=== PATIENT | female | born 1945 | race Caucasian/White ===

== ENCOUNTER 2022-11-23 01:21 | Outpatient (REF) | payer MEDICARE, MEDICAID, SELFPAY ==
[2022-11-23 08:53] LABS: Thyroid Stimulating Hormone 4.602 uIU/mL (0.358-3.740)
== END 2022-11-23 01:22 | disposition home or self-care (01) ==
LOC: LAB 01:21
PROVIDERS: PCP Family Medicine; Visit Provider Family Medicine
DX: E03.9 Hypothyroidism, unspecified (principal)
CPT/HCPCS: 36415; 84443

== ENCOUNTER 2023-01-09 09:47 | Outpatient (REF) | payer MEDICARE, MEDICAID, SELFPAY ==
[2023-01-09 11:30] LABS: Basophils Percent Auto 0.2 % (0.2-2.0); Hematocrit 38.5 % (36.0-48.0); Hemoglobin 11.4 g/dL (12.0-16.0); Immature Granulocytes Abs Auto 0.03 10^3/uL (0.00-0.03); Immature Granulocytes Pct Auto 0.6 % (0.0-0.5); Lymphocytes Absolute Auto 2.1 10^3/uL (1.2-3.8); Lymphocytes Percent Auto 43.8 % (20.5-60.0); Mean Corpuscular HGB Conc 29.6 g/dL (29.9-35.2); Mean Corpuscular Hemoglobin 29.1 pg (26.7-34.0); Mean Corpuscular Volume 98.2 fL (81.0-99.0); Monocytes Absolute Auto 0.4 10^3/uL (0.3-0.8); Monocytes Percent Auto 8.3 % (1.7-12.0); Neutrophils Absolute Auto 2.3 10^3/uL (1.4-6.5); Neutrophils Percent Auto 47.1 % (43.0-75.0); Platelet Count 152 10^3/uL (150-450); Red Blood Count 3.92 10^6/uL (4.20-5.40); Red Cell Distribution Width 14.4 % (11.0-15.0); White Blood Count 4.8 10^3/uL (4.0-11.0)
[2023-01-09 11:46] LABS: Anion Gap 10.4; BUN Creatinine Ratio 28.8; Calcium 8.3 mg/dL (8.5-10.1); Carbon Dioxide 31.9 mmol/L (21.0-32.0); Chloride 108 mmol/L (98-107); Estimated GFR (African America 58 (>=60); Estimated GFR (Non-African Ame 48 (>=60); Glucose 87 mg/dL (74-106); Potassium 4.3 mmol/L (3.5-5.1); Sodium 146 mmol/L (136-145)
[2023-01-10 16:09] LABS: Thyroglobulin Antibody <1.0 IU/mL (0.0-0.9); Thyroid Peroxidase (TPO) Ab <9 IU/mL (0-34)
== END 2023-01-09 09:48 | disposition home or self-care (01) ==
LOC: LAB 09:47
PROVIDERS: PCP Family Medicine; Visit Provider Family Medicine
DX: E03.9 Hypothyroidism, unspecified (principal)
CPT/HCPCS: 36415; 80048; 85025

== ENCOUNTER 2023-04-24 05:33 | Outpatient (REF) | payer MEDICARE, MEDICAID, SELFPAY ==
[2023-04-24 10:35] LABS: Thyroid Stimulating Hormone 3.949 uIU/mL (0.358-3.740)
== END 2023-04-24 05:34 | disposition home or self-care (01) ==
LOC: LAB 05:33
PROVIDERS: PCP Family Medicine; Visit Provider Family Medicine
DX: E03.9 Hypothyroidism, unspecified (principal)
CPT/HCPCS: 36415; 84443

== ENCOUNTER 2023-05-29 05:46 | Outpatient (REF) | payer MEDICARE, MEDICAID, SELFPAY ==
--- OUTSIDE RECORDS SUMMARY | 2023-05-29 05:50 | XMS_ITS | CCD ---
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 Machine Name Role Phone NEPTALI VILLALTA Unavailable Unavailabl e VILLALTANEPTALI CORDOVA Unavailable Unavailabl e BETH, DR ROCK Consulting Unavailable BETH, DR ROCK Admitting Unavailable MISC, DR HANSON Primary Care Unavailable BETH, DR ROCK Attending Unavailable BETH, DR ROCK Attending Unavailable BETH, DR ROCK Consulting Unavailable MISC, DR HANSON Primary Care Unavailable BETH, DR ROCK Admitting Unavailable MISC, DR HANSON Primary Care Unavailable DAVIS, ADIA Attending Unavailable DAVIS, ADIA Consulting Unavailable DAVIS, ADIA Admitting Unavailable BETH, DR ROCK Attending Unavailable BETH, DR ROCK Consulting Unavailable MISC, DR HANSON Primary Care Unavailable BETH, DR ROCK Admitting Unavailable BETH, DR ROCK Consulting Unavailable BETH, DR ROCK Admitting Unavailable MISC, DR HANSON Primary Care Unavailable BETH, DR ROCK Attending Unavailable Problems Active Problems Problem Classification Problem Date Documented Da te Episodic/Chronic Acute and unspecified renal failure (4 sources) Unspecified kidney failure; Translations: [UNSPECIFIED KIDNEY FAILURE] Onset: 08-22-2022 Chronic Congestive heart failure; nonhypertensive (5 sources) Heart failure, unspecified; Translations: [Acute systolic (congestive) heart failure] Onset: 02-09-2022 Chronic Deficiency and other anemia (1 source) Iron deficiency anemia, unspecified; Translations: [IRON DEFICIENCY ANEMIA UNSPECIFIED] Onset: 07-13-2022 Episodic Essential hypertension (4 sources) Essential (primary) hypertension; Translations: [ESSENTIAL PRIMARY HYPERTENSION] Onset: 07-11-2022 Chronic Hypertension with complications and secondary hypertension (1 source) Hypertensive heart disease with heart failure; Translations: [HTN HEART DISEASE W/HEART FAIL] Onset: 02-09-2022 Chronic Other nutritional; endocrine; and metabolic disorders (1 source) Morbid (severe) obesity due to excess calories; Translations: [MORBID SEVERE OBES D/T EXCESS ELISEO] Onset: 08-28-2022 Chronic Other nutritional; endocrine; and metabolic disorders (1 source) Abnormal weight loss; Translations: [ABNORMAL WEIGHT LOSS] Onset: 08-28-2022 Episodic Peripheral and visceral atherosclerosis (1 source) Peripheral vascular disease, unspecified; Translations: [PERIPHERAL VASCULAR DISEASE UNS] Onset: 08-28-2022 Chronic Residual codes; unclassified (4 sources) Altered mental status, unspecified; Translations: [ALTERED MENTAL STATUS UNSPECIFIED] Onset: 08-12-2022 Episodic Thyroid disorders (1 source) Hypothyroidism, unspecified; Translations: [HYPOTHYROIDISM UNSPECIFIED] Onset: 08-28-2022 Chronic Unclassified (1 source) hypokalemia / hypokalemia() Onset: 01-30-2017 Past or Other Problems Problem Classification Problem Date Documented Da te Episodic/Chronic Fluid and electrolyte disorders (3 sources) Hypokalemia; Translations: [Hypokalemia] Onset: 01-30-2017 Episodic Genitourinary symptoms and ill-defined conditions (4 sources) Dysuria; Translations: [DYSURIA] Onset: 02-07-2022 Episodic Nausea and vomiting (1 source) Nausea; Translations: [NAUSEA] Onset: 02-09-2022 Episodic Other nutritional; endocrine; and metabolic disorders (1 source) Anorexia; Translations: [ANOREXIA] Onset: 02-09-2022 Episodic Results Test Name Value Interpretation Reference Range Facil ity VIT D 25-OH LABCORPon 2022 Vitamin D, 25-Hydroxy 35.9 ng/mL Normal 30.0-100.[address] [facility] Comment on above: Result Comment: Jadyn min D deficiency has been defined by the [place] of [employer] and an Endocrine Society practice guideline as a level of serum 25-OH vitamin D less than 20 ng/mL (1,2). The Endocrine Society went on to further define vitamin D insufficiency as a level between 21 and 29 ng/mL (2). 1. IOM ([place] of [employer]). 2010. Dietary reference intakes for calcium and D. [place]: The National Academies Press. 2. Yamilex MF, Florecita CAMP, MalaBronson OTTO et al. Evaluation, treatment, and prevention of vitamin D deficiency: an Endocrine Society clinical practice guideline. JCEM. 2010; 96(7):1911-30. Performed By: #### V ITADLC #### [facility] [address] [place] [address] Dr. Ashwin Key CBC AUTO DIFFon 08-22-2022 BASO # 0.0 103/ul Normal 0.0-0.1 [facility] Comment on above: Performed By: #### C BC #### [facility] [address] [place] [address] Dr. Ashwin Key Basophils/100 WBC (Bld) 0.5 % Normal 0.2-2.0 [facility] Comment on above: Performed By: #### C BC #### [facility] [address] [place] [address] Dr. Ashwin Key EO # 0.0 103/ul Normal 0.0-0.7 [facility] Comment on above: Performed By: #### C BC #### [facility] [address] [place] [address] Dr. Ashwin Key Eosinophils/100 WBC (Bld) 0.0 % Critically low 0.9-7.0 [facility] Comment on above: Performed By: #### C BC #### [facility] [address] [place] [address] Dr. Ashwin Key Erythrocyte distribution width (RBC) [Ratio] 14.7 % Normal 11.0-15.[address] [facility] Comment on above: Performed By: #### C BC #### [facility] [address] [place] [address] Dr. Ashwin Key Hematocrit (Bld) [Volume fraction] 38.0 % Normal 36.0-48.[address] [facility] Comment on above: Performed By: #### C BC #### [facility] [address] [place] [address] Dr. Ashwin Key Hemoglobin (Bld) [Mass/Vol] 11.5 g/dL Critically low 12.0-16.0 [facility] Comment on above: Performed By: #### C BC #### [facility] [address] [place] [address] Dr. Ashwin Key IG # 0.01 10e3/ul Normal 0.00-0.03 [facility] Comment on above: Performed By: #### C BC #### [facility] [address] [place] [address] Dr. Ashwin Key IG % 0.2 % Normal 0.0-0.5 [facility] Comment on above: Performed By: #### C BC #### [facility] [address] [place] [address] Dr. Ashwin Key LYMPH # 2.1 103/ul Normal 1.2-3.[address] [facility] Comment on above: Performed By: #### C BC #### [facility] [address] [place] [address] Dr. Ashwin Key Lymphocytes/100 WBC (Bld) 48.4 % Normal 20.5-60.0 [facility] Comment on above: Performed By: #### C BC #### [facility] [address] [place] [address] Dr. Ashwin Key MANUAL DIFF REQ NO Normal [facility] Comment on above: Performed By: #### C BC #### [facility] [address] [place] [address] Dr. Ashwin Key MCH (RBC) [Entitic mass] 28.8 pg Normal 26.7-34.0 [facility] Comment on above: Performed By: #### C BC #### [facility] [address] [place] [address] Dr. Ashwin Key MCHC (RBC) [Mass/Vol] 30.3 g/dL Normal 29.9-35.2 [facility] Comment on above: Performed By: #### C BC #### [facility] [address] [place] [address] Dr. Ashwin Key MCV (RBC) [Entitic vol] 95.0 fL Normal 81.0-99.0 [facility] Comment on above: Performed By: #### C BC #### [facility] [address] [place], [place] [id number] Dr. Ashwin Key MONO # 0.4 103/ul Normal 0.3-0.8 [facility] Comment on above: Performed By: #### C BC #### [facility] [address] [place] [address] Dr. Ashwin Key Monocytes/100 WBC (Bld) 9.3 % Normal 1.7-12.0 [facility] Comment on above: Performed By: #### C BC #### [facility] [address] [place] [address] Dr. Ashwin Key NEUT # 1.8 103/ul Normal 1.4-6.5 [facility] Comment on above: Performed By: #### C BC #### [facility] [address] [place] [address] Dr. Ashwin Key Neutrophils/100 WBC (Bld) 41.6 % Critically low 43.0-75.0 [facility] Comment on above: Performed By: #### C BC #### [facility] [address] [place] [address] Dr. Ashwin Key Platelet mean volume (Bld) [Entitic vol] 10.3 fL Normal 9.5-13.5 [facility] Comment on above: Performed By: #### C BC #### [facility] [address] [place] [address] Dr. Aswhin Key PLT 166 103/ul Normal 150-[address] [facility] Comment on above: Performed By: #### C BC #### [facility] [address] [place] [address] Dr. Ashwin Key RBC 4.00 106/ul Critically low 4.20-5.40 [facility] Comment on above: Performed By: #### C BC #### [facility] [address] [place] [address] Dr. Ashwin Key WBC 4.4 103/ul Normal 4.0-11.0 [facility] Comment on above: Performed By: #### C BC #### [facility] [address] [place] [address] Dr. Ashwin Key GLYCOHEMOGLOBIN A1Con 2022 ADA RECOMMENDATION SEE BELOW Normal [facility] Comment on above: Result Comment: ADA RECOMMENDED LIMIT 4.0 - 6.0 ADA THERAPEUTIC TARGET < 7.0 ACTION SUGGESTED > 7.0 Performed By: #### A 1C #### [facility] [address] [address] [address] Ashwin eKy Glucose [Mass/Vol] 105 mg/dL Normal [facility] Comment on above: Performed By: #### A 1C #### [facility] [address] [address] [address] Ashwin Key HbA1c (Bld) [Mass fraction] 5.3 % Normal 4.5-6.2 [facility] Comment on above: Performed By: #### A 1C #### [facility] [address] [place] [address] Dr. Ashwin Key LIPID PROFILEon 08-22-2022 CHOL-HDL RATIO NORM SEE BELOW Normal [facility] Comment on above: Result Comment: 3.3 - 4.4 LOW RISK 4.4 - 7.1 AVERAGE RISK 7.1 - 11.0 MODERATE RISK >11.0 HIGH RISK Performed By: #### U ACSJAZMIN UMICRO #### [facility] [address] [place] [address] Dr. Ashwin Key Cholesterol [Mass/Vol] 103 mg/dL Normal <=200 [facility] Comment on above: Performed By: #### U ACSJAZMIN UMICRO #### [facility] [address] [address] [address] Ashwin Key Cholesterol in HDL [Mass/Vol] 40 mg/dL Normal 40-60 [facility] Comment on above: Performed By: #### U ACSJAZMIN UMICRO #### [facility] [address] [address] [address] Ashwin Key Cholesterol in LDL [Mass/Vol] 51.8 mg/dL Normal [facility] Comment on above: Performed By: #### U ACSJAZMIN UMICRO #### [facility] [address] [address] [address] Ashwin Key Cholesterol.total/Cho lesterol in HDL [Mass ratio] 2.6 {ratio} Normal [facility] Comment on above: Performed By: #### U ACSJAZMIN UMICRO #### [facility] [address] [address] [address] Ashwin Key HDL NORMAL > or = 60 mg/dl - LOW CARDIOVASCULAR RISK <40 mg/dl - HIGH CARDIOVASCULAR RISK Normal [facility] Comment on above: Performed By: #### U ACSJAZMIN, UMICRO #### [facility] [address] [address] [address] Ashwin Key LDL CALC NORMAL SEE BELOW Normal [facility] Comment on above: Result Comment: <100 mg/dl OPTIMAL 100 - 129 mg/dl NEAR OR ABOVE OPTIMAL 130 - 159 mg/dl BORDERLINE HIGH 160 - 189 mg/dl HIGH >190 mg/dl VERY HIGH Performed By: #### U ACSJAZMIN, UMICRO #### [facility] [address] [address] [address] Ashwin Key Triglyceride [Mass/Vol] 56 mg/dL Normal <=150 [facility] Comment on above: Performed By: #### U ACSJAZMIN UMICRO #### [facility] [address] [address] [address] Ashwin Key VLDL CALC 11.2 mg/dL Normal [facility] Comment on above: Performed By: #### U ACSJAZMIN, UMICRO #### [facility] [address] [address] [address] Ashwin Key PROF 14(COMP METB)on 023 Albumin [Mass/Vol] 2.5 g/dL Critically low 3.4-5.[address] [facility] Comment on above: Performed By: #### U ACSJAZMIN, UMICRO #### [facility] [address] [address] [address] Ashwin Key Albumin/Globulin [Mass ratio] 0.7 {ratio} Normal [facility] Comment on above: Performed By: #### U ACSJAZMIN, UMICRO #### [facility] [address] [address] [address] Ashwin Key ALP [Catalytic activity/Vol] 110 U/L Normal 46-116 [facility] Comment on above: Performed By: #### U ACSJAZMIN UMICRO #### [facility] [address] [place] [address] Dr. Ashwin Key ALT [Catalytic activity/Vol] 16 U/L Normal 14-59 [facility] Comment on above: Performed By: #### U FILOMENA UMICRO #### [facility] [address] [place] [address] Dr. Ashwin Key Anion gap [Moles/Vol] 9.8 mmol/L Normal [facility] Comment on above: Performed By: #### U ACSJAZMIN UMICRO #### [facility] [address] [place] [address] Dr. Ashwin Key AST [Catalytic activity/Vol] 13 U/L Critically low 15-37 [facility] Comment on above: Performed By: #### Lisseth BUTT UMICRO #### [facility] [address] [place] [address] Dr. Ashwin Key Bilirubin [Mass/Vol] 0.4 mg/dL Normal 0.2-1.0 [facility] Comment on above: Performed By: #### GURVINDER DIEGOICRO #### [facility] [address] [place] [address] Dr. Ashwin Key Calcium [Mass/Vol] 8.5 mg/dL Normal 8.5-10.1 [facility] Comment on above: Performed By: #### U FILOMENA UMICRO #### [facility] [address] [place] [address] Dr. Ashwin Key Chloride [Moles/Vol] 108 mmol/L Critically high 98-[address] [facility] Comment on above: Performed By: #### U ACSJAZMIN UMICRO #### [facility] [address] [place] [address] Dr. Ashwin Key CO2 [Moles/Vol] 31.0 mmol/L Normal 21.0-32.0 [facility] Comment on above: Performed By: #### U FILOMENA UMICRO #### [facility] [address] [address] [address] Ashwin Key Creatinine [Mass/Vol] 0.91 mg/dL Normal 0.55-1.02 [facility] Comment on above: Performed By: #### U ACSJAZMIN, UMICRO #### [facility] [address] [address] [address] Ashwin Key EGFR-AF BARBADIAN >60 Normal >=60 [facility] Comment on above: Performed By: #### U ACSJAZMIN, UMICRO #### [facility] [address] [address] [address] Ashwin Key EGFR-NON AF BARBADIAN 60 mL/min/1.73m2 Normal >=60 [facility] Comment on above: Performed By: #### U ACSJAZMIN, UMICRO #### [facility] [address] [place] [address] Dr. Ashwin Key Globulin (S) [Mass/Vol] 3.5 g/dL Normal [facility] Comment on above: Performed By: #### U ACSJAZMIN, UMICRO #### [facility] [address] [address] [address] Ashwin Key Glucose [Mass/Vol] 99 mg/dL Normal 74-106 [facility] Comment on above: Performed By: #### U ACSJAZMIN, UMICRO #### [facility] [address] [place] [address] Dr. Ashwin Key Potassium [Moles/Vol] 3.8 mmol/L Normal 3.5-5.1 [facility] Comment on above: Performed By: #### U ACSJAZMIN, UMICRO #### [facility] [address] [address] [address] Ashwin Key Protein [Mass/Vol] 6.0 g/dL Critically low 6.4-8.2 [facility] Comment on above: Performed By: #### U ACSIND, UMICRO #### [facility] [address] [address] [address] Ashwin Key Sodium [Moles/Vol] 145 mmol/L Normal 136-145 [facility] Comment on above: Performed By: #### U ACSJAZMIN UMICRO #### [facility] [address] [place] [address] Dr. Ashwin Key Urea nitrogen [Mass/Vol] 24.0 mg/dL Critically high 7.0-18.0 [facility] Comment on above: Performed By: #### U ACSJAZMIN UMICRO #### [facility] [address] [place] [address] Dr. Ashwin Key Urea nitrogen/Creatinine [Mass ratio] 26.4 mg/mg Normal [facility] Comment on above: Performed By: #### U ACSGURVINDER WUICRO #### [facility] [address] [place] [address] Dr. Ashwin Key TSHon 08-22-2022 TSH 5.573 uIU/mL Critically high 0.358-3.740 [facility] Comment on above: Performed By: #### U GURVINDER BUTTICRO #### [facility] [address] [place] [address] Dr. Ashwin Key CBC AUTO DIFFon 08-10-2022 BASO # 0.0 103/ul Normal 0.0-0.1 [facility] Comment on above: Performed By: #### C BC #### [facility] [address] [place] [address] Dr. Ashwin Key Basophils/100 WBC (Bld) 0.7 % Normal 0.2-2.0 [facility] Comment on above: Performed By: #### C BC #### [facility] [address] [place] [address] Dr. Ashwin Key EO # 0.0 103/ul Normal 0.0-0.7 [facility] Comment on above: Performed By: #### C BC #### [facility] [address] [place] [address] Dr. Ashwin Key Eosinophils/100 WBC (Bld) 0.0 % Critically low 0.9-7.0 [facility] Comment on above: Performed By: #### C BC #### [facility] [address] [place] [address] Dr. Ashwin Key Erythrocyte distribution width (RBC) [Ratio] 15.1 % Critically high 11.0-15.0 [facility] Comment on above: Performed By: #### C BC #### [facility] [address] [place] [address] Dr. Ashwin Key Hematocrit (Bld) [Volume fraction] 38.0 % Normal 36.0-48.0 [facility] Comment on above: Performed By: #### C BC #### [facility] [address] [place] [address] Dr. Ashwin Key Hemoglobin (Bld) [Mass/Vol] 11.4 g/dL Critically low 12.0-16.0 [facility] Comment on above: Performed By: #### C BC #### [facility] [address] [place] [address] Dr. Ashwin Key IG # 0.02 10e3/ul Normal 0.00-0.03 [facility] Comment on above: Performed By: #### C BC #### [facility] [address] [place] [address] Dr. Ashwin Key IG % 0.5 % Normal 0.0-0.5 [facility] Comment on above: Performed By: #### C BC #### [facility] [address] [place] [address] Dr. Ashwin Key LYMPH # 2.1 103/ul Normal 1.2-3.8 [facility] Comment on above: Performed By: #### C BC #### [facility] [address] [place] [address] Dr. Ashwin Key Lymphocytes/100 WBC (Bld) 48.4 % Normal 20.5-60.0 [facility] Comment on above: Performed By: #### C BC #### [facility] [address] [place] [address] Dr. Ashwin Key MANUAL DIFF REQ NO Normal [facility] Comment on above: Performed By: #### C BC #### [facility] [address] [place] [address] Dr. Ashwin Key MCH (RBC) [Entitic mass] 28.8 pg Normal 26.7-34.0 [facility] Comment on above: Performed By: #### C BC #### [facility] [address] [place] [address] Dr. Ashwin Key MCHC (RBC) [Mass/Vol] 30.0 g/dL Normal 29.9-35.[address] [facility] Comment on above: Performed By: #### C BC #### [facility] [address] [place] [address] Dr. Ashwin Key MCV (RBC) [Entitic vol] 96.0 fL Normal 81.0-99.0 [facility] Comment on above: Performed By: #### C BC #### [facility] [address] [place] [address] Dr. Ashwin Key MONO # 0.3 103/ul Normal 0.3-0.[address] [facility] Comment on above: Performed By: #### C BC #### [facility] [address] [place] [address] Dr. Ashwin Key Monocytes/100 WBC (Bld) 7.7 % Normal 1.7-12.0 [facility] Comment on above: Performed By: #### C BC #### [facility] [address] [place] [address] Dr. Ashwin Key NEUT # 1.8 103/ul Normal 1.4-6.[address] [facility] Comment on above: Performed By: #### C BC #### [facility] [address] [place] [address] Dr. Ashwin Key Neutrophils/100 WBC (Bld) 42.7 % Critically low 43.0-75.[address] [facility] Comment on above: Performed By: #### C BC #### [facility] [address] [place] [address] Dr. Ashwin Kye Platelet mean volume (Bld) [Entitic vol] 10.1 fL Normal 9.5-13.[address] [facility] Comment on above: Performed By: #### C BC #### [facility] [address] [place] [address] Dr. Ashwin Key PLT 156 103/ul Normal 150-450 [facility] Comment on above: Performed By: #### C BC #### [facility] [address] [address] [address] Ashwin Key RBC 3.96 106/ul Critically low 4.20-5.40 [facility] Comment on above: Performed By: #### C BC #### [facility] [address] [address] [address] Ashwin Key WBC 4.3 103/ul Normal 4.0-11.0 [facility] Comment on above: Performed By: #### C BC #### [facility] [address] [address] [address] Ashwin Key PROF CHEM 8 (BAS METB)on Anion gap [Moles/Vol] 13.3 mmol/L Normal [facility] Comment on above: Performed By: #### U JOEY BUTTRO #### [facility] [address] [place] [address] Dr. Ashwin Key Calcium [Mass/Vol] 8.3 mg/dL Critically low 8.5-10.1 [facility] Comment on above: Performed By: #### JUAN F DIEGO #### [facility] [address] [place] [address] Dr. Ashwin Key Chloride [Moles/Vol] 111 mmol/L Critically high 98-107 [facility] Comment on above: Performed By: #### U JOEY BUTTRO #### [facility] [address] [place] [address] Dr. Ashwin Key CO2 [Moles/Vol] 29.9 mmol/L Normal 21.0-32.0 [facility] Comment on above: Performed By: #### U JOEY BUTTRO #### [facility] [address] [place] [address] Dr. Ashwin Key Creatinine [Mass/Vol] 0.92 mg/dL Normal 0.55-1.02 [facility] Comment on above: Performed By: #### U JOEY BUTTRO #### [facility] [address] [address] [address] Ashwin Key EGFR-AF BARBADIAN >60 Normal >=60 [facility] Comment on above: Performed By: #### U FILOMENA UMICRO #### [facility] [address] [address] [address] Ashwin Key EGFR-NON AF BARBADIAN 59 mL/min/1.73m2 Critically low >=60 [facility] Comment on above: Performed By: #### U FILOMENA UMICRO #### [facility] [address] [address] [address] Ashwin Key Glucose [Mass/Vol] 84 mg/dL Normal 74-106 [facility] Comment on above: Performed By: #### U ACSJAZMIN UMICRO #### [facility] [address] [place] [address] Dr. Ashwin Key Potassium [Moles/Vol] 4.2 mmol/L Normal 3.5-5.1 [facility] Comment on above: Performed By: #### U FILOMENA UMICRO #### [facility] [address] [address] [address] Ashwin Key Sodium [Moles/Vol] 150 mmol/L Critically high 136-145 [facility] Comment on above: Performed By: #### U FILOMENA UMICRO #### [facility] [address] [place] [address] Dr. Ashwin Key Urea nitrogen [Mass/Vol] 25.0 mg/dL Critically high 7.0-18.0 [facility] Comment on above: Performed By: #### U ACSJAZMIN UMICRO #### [facility] [address] [address] [address] Ashwin Key Urea nitrogen/Creatinine [Mass ratio] 27.2 mg/mg Normal [facility] Comment on above: Performed By: #### U FILOMENA, UMICRO #### [facility] [address] [address] [address] Ashwin Key TSHon 08-10-2022 TSH 3.430 uIU/mL Normal 0.358-3.740 [facility] Comment on above: Performed By: #### U ACSIND, UMICRO #### [facility] [address] [address] [address] Ashwin Key CULTURE URINEon 08-09-2022 CULTURE URINE Culture Observations: ANSON TO FOLLOW. Normal [facility] Comment on above: Performed By: #### U ACSIND, UMICRO #### [facility] [address] [address] [address] Ashwin Key UA (CLEAN/CATCH) [employer] SALES ASSISTANT/MICRO I F IND.on 08-09-2022 Bilirubin Ql (U) Negative Normal NEGATIVE [facility] Comment on above: Performed By: #### U ACSIND, UMICRO #### [facility] [address] [address] [address] Ashwin Key Clarity (U) CLEAR Normal CLEAR [facility] Comment on above: Performed By: #### U ACSIND, UMICRO #### [facility] [address] [address] [address] Ashwin Key Color (U) LT. YELLOW Normal YELLOW [facility] Comment on above: Performed By: #### U ACSIND, UMICRO #### [facility] [address] [address] [address] Ashwin Key Glucose Ql (U) Negative Normal NEGATIVE [facility] Comment on above: Performed By: #### U ACSIND, UMICRO #### [facility] [address] [address] [address] Ashwin Key Hemoglobin Ql (U) TRACE-INTACT Abnormal NEGATIVE [facility] Comment on above: Performed By: #### U ACSIND, UMICRO #### [facility] [address] [address] [address] Ashwin Key Ketones Ql (U) Negative Normal NEGATIVE [facility] Comment on above: Performed By: #### U ACSIND, UMICRO #### [facility] [address] [address] [address] Ashwin Key LEUKOCYTES TRACE Abnormal NEGATIVE [facility] Comment on above: Performed By: #### U ACSIND, UMICRO #### [facility] [address] [address] [address] Ashwin Key Nitrite Ql (U) Negative Normal NEGATIVE [facility] Comment on above: Performed By: #### U ACSJAZMIN UMICRO #### [facility] [address] [address] [address] Ashwin Key pH (U) 5.5 [pH] Normal 5-[address] [facility] Comment on above: Performed By: #### U ACSGURVINDER WUICRO #### [facility] [address] [address] [address] Ashwin Key SPEC GRAVITY <=1.005 Abnormal 1.005-<=1.025 [facility] Comment on above: Performed By: #### U FILOMENA UMICRO #### [facility] [address] [address] [address] Ashwin Key UA PROTEIN Negative Normal NEGATIVE/ TRACE [facility] Comment on above: Performed By: #### U JOEY BUTTRO #### [facility] [address] [place] [address] Dr. Ashwin Key UR MICRO IND INDICATED Normal [facility] Comment on above: Performed By: #### U JOEY BUTTRO #### [facility] [address] [address] [address] Ashwin Key Urobilinogen Qn (U) 0.2 {Mercedes'U}/dL Normal 0.2 - 1. 0 [facility] Comment on above: Performed By: #### U FILOMENA UMICRO #### [facility] [address] [place] [address] Dr. Ashwin Key URINE MICROSCOPIC ONLYon AMORPHOUS CRYSTALS FEW Normal [facility] Comment on above: Performed By: #### U ACSJAZMIN UMICRO #### [facility] [address] [place] [address] Dr. Ashwin Key BACTERIA MODERATE Abnormal NONE SEEN [facility] Comment on above: Performed By: #### U JOEY BUTTRO #### [facility] [address] [address] [address] Ashwin Key Bacteria identified Cx Nom (U) INDICATED Normal [facility] Comment on above: Performed By: #### U ACSIND, UMICRO #### [facility] [address] [place] [address] Dr. Ashwin Key CAST NONE SEEN Normal NONE SEEN [facility] Comment on above: Performed By: #### U ACSIND, UMICRO #### [facility] [address] [place] [address] Dr. Ashwin Key Crystals LM Nom (Urine sed) SEEN Abnormal NONE SEEN The [facility] Comment on above: Performed By: #### U ACSIND, UMICRO #### [facility] [address] [place] [address] Dr. Ashwin Key Epithelial cells LM Ql (Urine sed) MANY Abnormal NONE SEEN /RARE [facility] Comment on above: Performed By: #### U ACSIND, UMICRO #### [facility] [address] [place] [address] Dr. Ashwin Key MUCOUS NONE SEEN Normal NONE SEEN [facility] Comment on above: Performed By: #### U ACSIND, UMICRO #### [facility] [address] [place] [address] Dr. Ashwin Key RBC 0-2 Normal 0-[address] [facility] Comment on above: Performed By: #### U ACSIND, UMICRO #### [facility] [address] [place] [address] Dr. Ashwin Key WBC 2-5 Abnormal NONE SEEN The [facility] Comment on above: Performed By: #### U ACSIND, UMICRO #### [facility] [address] [place] [address] Dr. Ashwin Key CBC AUTO DIFFon 07-11-2022 BASO # 0.0 103/ul Normal 0.0-0.[address] [facility] Comment on above: Performed By: #### C BC #### [facility] [address] [place] [address] Dr. Ashwin Key Basophils/100 WBC (Bld) 0.5 % Normal 0.2-2.0 [facility] Comment on above: Performed By: #### C BC #### [facility] [address] [place] [address] Dr. Ashwin Key EO # 0.0 103/ul Normal 0.0-0.7 [facility] Comment on above: Performed By: #### C BC #### [facility] [address] [place] [address] Dr. Ashwin Key Eosinophils/100 WBC (Bld) 0.0 % Critically low 0.9-7.0 [facility] Comment on above: Performed By: #### C BC #### [facility] [address] [place] [address] Dr. Ashwin Key Erythrocyte distribution width (RBC) [Ratio] 14.5 % Normal 11.0-15.0 [facility] Comment on above: Performed By: #### C BC #### [facility] [address] [place] [address] Dr. Ashwin Key Hematocrit (Bld) [Volume fraction] 42.5 % Normal 36.0-48.0 [facility] Comment on above: Performed By: #### C BC #### [facility] [address] [place] [address] Dr. Ashwin Key Hemoglobin (Bld) [Mass/Vol] 13.1 g/dL Normal 12.0-16.0 [facility] Comment on above: Performed By: #### C BC #### [facility] [address] [place] [address] Dr. Ashwin Key IG # 0.02 10e3/ul Normal 0.00-0.03 [facility] Comment on above: Performed By: #### C BC #### [facility] [address] [place] [address] Dr. Ashwin Key IG % 0.5 % Normal 0.0-0.[address] [facility] Comment on above: Performed By: #### C BC #### [facility] [address] [place] [address] Dr. Ashwin Key LYMPH # 2.1 103/ul Normal 1.2-3.[address] [facility] Comment on above: Performed By: #### C BC #### [facility] [address] [place] [address] Dr. Ashwin Key Lymphocytes/100 WBC (Bld) 48.2 % Normal 20.5-60.0 [facility] Comment on above: Performed By: #### C BC #### [facility] [address] [place] [address] Dr. Ashwin Key MANUAL DIFF REQ NO Normal [facility] Comment on above: Performed By: #### C BC #### [facility] [address] [place] [address] Dr. Ashwin Key MCH (RBC) [Entitic mass] 28.4 pg Normal 26.7-34.[address] [facility] Comment on above: Performed By: #### C BC #### [facility] [address] [place] [address] Dr. Ashwin Key MCHC (RBC) [Mass/Vol] 30.8 g/dL Normal 29.9-35.2 [facility] Comment on above: Performed By: #### C BC #### [facility] [address] [place] [address] Dr. Ashwin Key MCV (RBC) [Entitic vol] 92.2 fL Normal 81.0-99.0 [facility] Comment on above: Performed By: #### C BC #### [facility] [address] [place] [address] Dr. Ashwin Key MONO # 0.4 103/ul Normal 0.3-0.[address] [facility] Comment on above: Performed By: #### C BC #### [facility] [address] [place] [address] Dr. Ashwin Key Monocytes/100 WBC (Bld) 8.7 % Normal 1.7-12.[address] [facility] Comment on above: Performed By: #### C BC #### [facility] [address] [place] [address] Dr. Ashwin Key NEUT # 1.8 103/ul Normal 1.4-6.[address] [facility] Comment on above: Performed By: #### C BC #### [facility] [address] [address] [address] Ashwin Key Neutrophils/100 WBC (Bld) 42.1 % Critically low 43.0-75.0 [facility] Comment on above: Performed By: #### C BC #### [facility] [address] [address] [address] Ashwin Key Platelet mean volume (Bld) [Entitic vol] 10.4 fL Normal 9.5-13.5 [facility] Comment on above: Performed By: #### C BC #### [facility] [address] [address] [address] Ashwin Key PLT 159 103/ul Normal 150-450 [facility] Comment on above: Performed By: #### C BC #### [facility] [address] [place] [address] Dr. Ashwin Key RBC 4.61 106/ul Normal 4.20-5.40 [facility] Comment on above: Performed By: #### C BC #### [facility] [address] [place] [address] Dr. Ashwin Key WBC 4.3 103/ul Normal 4.0-11.0 [facility] Comment on above: Performed By: #### C BC #### [facility] [address] [place] [address] Dr. Ashwin Key PROF CHEM 8 (BAS METB)on Anion gap [Moles/Vol] 10.2 mmol/L Normal [facility] Comment on above: Performed By: #### B MP #### [facility] [address] [place] [address] Dr. Ashwin Key Calcium [Mass/Vol] 8.5 mg/dL Normal 8.5-10.1 [facility] Comment on above: Performed By: #### B MP #### [facility] [address] [place] [address] Dr. Ashwin Key Chloride [Moles/Vol] 104 mmol/L Normal 98-107 [facility] Comment on above: Performed By: #### B MP #### [facility] [address] [address] [address] Ashwin Key CO2 [Moles/Vol] 32.6 mmol/L Critically high 21.0-32.0 [facility] Comment on above: Performed By: #### B MP #### [facility] [address] [address] [address] sAhwin Key Creatinine [Mass/Vol] 0.91 mg/dL Normal 0.55-1.02 [facility] Comment on above: Performed By: #### B MP #### [facility] [address] [address] [address] Ashwin Key EGFR-AF BARBADIAN >60 Normal >=60 [facility] Comment on above: Performed By: #### B MP #### [facility] [address] [place] [address] Dr. Ashwin Key EGFR-NON AF BARBADIAN =60 Normal >=60 [facility] Comment on above: Performed By: #### B MP #### [facility] [address] [address] [address] Ashwin Key Glucose [Mass/Vol] 89 mg/dL Normal 74-106 [facility] Comment on above: Performed By: #### B MP #### [facility] [address] [address] [address] Ashwin Key Potassium [Moles/Vol] 3.8 mmol/L Normal 3.5-5.1 [facility] Comment on above: Performed By: #### B MP #### [facility] [address] [address] [address] Ashwin Key Sodium [Moles/Vol] 143 mmol/L Normal 136-145 [facility] Comment on above: Performed By: #### B MP #### [facility] [address] [address] [address] Ashwin Key Urea nitrogen [Mass/Vol] 26.0 mg/dL Critically high 7.0-18.0 [facility] Comment on above: Performed By: #### B MP #### [facility] [address] [address] [address] Ashwin Key Urea nitrogen/Creatinine [Mass ratio] 28.6 mg/mg Normal [facility] Comment on above: Performed By: #### B MP #### [facility] [address] [place] [address] Dr. Ashwin Key CULTURE URINEon 02-11-2022 CULTURE URINE Isolate 1 Escherichia coli >100,000 cfu/mL of ORGANISM 1 Escherichia coli ANTIBIOTIC M.I.C RX STATUS Ampicillin 16 I F Ampicillin/Sulbactam 8 S F Piperacillin/Tazobac andrea <=4 S F Cefazolin <=4 S F Ceftazidime <=1 S F Ceftriaxone <=1 S F Ertapenem <=0.5 S F Imipenem <=0.25 S F Amikacin <=2 S F Gentamicin <=1 S F Tobramycin <=1 S F Ciprofloxacin <=0.25 S F Levofloxacin <=0.12 S F Nitrofurantoin <=16 S F Trimethoprim/Sulfame thoxazole <=20 S F Normal [facility] Comment on above: Performed By: #### U ACSJOEY WURO #### [facility] [address] [place] [address] Dr. Ashwin Key CBC AUTO DIFFon 02-07-2022 BASO # 0.0 103/ul Normal 0.0-0.1 [facility] Comment on above: Performed By: #### C BC #### [facility] [address] [place] [address] Dr. Ashwin Key Basophils/100 WBC (Bld) 0.5 % Normal 0.2-2.[address] [facility] Comment on above: Performed By: #### C BC #### [facility] [address] [place] [address] Dr. Ashwin Key EO # 0.0 103/ul Normal 0.0-0.[address] [facility] Comment on above: Performed By: #### C BC #### [facility] [address] [place] [address] Dr. Ashwin Key Eosinophils/100 WBC (Bld) 0.0 % Critically low 0.9-7.[address] [facility] Comment on above: Performed By: #### C BC #### [facility] [address] [place] [address] Dr. Ashwin Key Erythrocyte distribution width (RBC) [Ratio] 13.4 % Normal 11.0-15.0 [facility] Comment on above: Performed By: #### C BC #### [facility] [address] [place] [address] Dr. Ashwin Key Hematocrit (Bld) [Volume fraction] 46.8 % Normal 36.0-48.0 [facility] Comment on above: Performed By: #### C BC #### [facility] [address] [place] [address] Dr. Ashwin Key Hemoglobin (Bld) [Mass/Vol] 14.2 g/dL Normal 12.0-16.0 [facility] Comment on above: Performed By: #### C BC #### [facility] [address] [place] [address] Dr. Ashwin Key IG # 0.05 10e3/ul Critically high 0.00-0.03 [facility] Comment on above: Performed By: #### C BC #### [facility] [address] [place] [address] Dr. Ashwin Key IG % 0.6 % Critically high 0.0-0.5 [facility] Comment on above: Performed By: #### C BC #### [facility] [address] [place] [address] Dr. Ashwin Key LYMPH # 2.0 103/ul Normal 1.2-3.[address] [facility] Comment on above: Performed By: #### C BC #### [facility] [address] [place] [address] Dr. Ashwin Key Lymphocytes/100 WBC (Bld) 22.9 % Normal 20.5-60.0 [facility] Comment on above: Performed By: #### C BC #### [facility] [address] [place] [address] Dr. Ashwin Key MANUAL DIFF REQ NO Normal [facility] Comment on above: Performed By: #### C BC #### [facility] [address] [place] [address] Dr. Ashwin Key MCH (RBC) [Entitic mass] 29.1 pg Normal 26.7-34.[address] [facility] Comment on above: Performed By: #### C BC #### [facility] [address] [address] [address] Ashwin Key MCHC (RBC) [Mass/Vol] 30.3 g/dL Normal 29.9-35.[address] [facility] Comment on above: Performed By: #### C BC #### [facility] [address] [place] [address] Dr. Ashwin Key MCV (RBC) [Entitic vol] 95.9 fL Normal 81.0-99.[address] [facility] Comment on above: Performed By: #### C BC #### [facility] [address] [place] [address] Dr. Ashwin Key MONO # 0.9 103/ul Critically high 0.3-0.8 [facility] Comment on above: Performed By: #### C BC #### [facility] [address] [place] [address] Dr. Ashwin Key Monocytes/100 WBC (Bld) 10.9 % Normal 1.7-12.[address] [facility] Comment on above: Performed By: #### C BC #### [facility] [address] [place] [address] Dr. Ashwin Key NEUT # 5.6 103/ul Normal 1.4-6.[address] [facility] Comment on above: Performed By: #### C BC #### [facility] [address] [place] [address] Dr. Ashwin Key Neutrophils/100 WBC (Bld) 65.1 % Normal 43.0-75.[address] [facility] Comment on above: Performed By: #### C BC #### [facility] [address] [place] [address] Dr. Ashwin Key Platelet mean volume (Bld) [Entitic vol] 10.6 fL Normal 9.5-13.[address] [facility] Comment on above: Performed By: #### C BC #### [facility] [address] [place] [address] Dr. Ashwin Key PLT 203 103/ul Normal 150-450 [facility] Comment on above: Performed By: #### C BC #### [facility] [address] [place] [address] Dr. Ashwin Key RBC 4.88 106/ul Normal 4.20-5.40 [facility] Comment on above: Performed By: #### C BC #### [facility] [address] [place] [address] Dr. Ashwin Key WBC 8.6 103/ul Normal 4.0-11.0 [facility] Comment on above: Performed By: #### C BC #### [facility] [address] [place] [address] Dr. Ashwin Key PROF 14(COMP METB)on 022 Albumin [Mass/Vol] 3.6 g/dL Normal 3.4-5.0 [facility] Comment on above: Performed By: #### U JOEY BUTTRO #### [facility] [address] [place] [address] Dr. Ashwin Key Albumin/Globulin [Mass ratio] 1.2 {ratio} Normal [facility] Comment on above: Performed By: #### U JOEY BUTTRO #### [facility] [address] [place] [address] Dr. Ashwin Key ALP [Catalytic activity/Vol] 128 U/L Critically high 46-116 [facility] Comment on above: Performed By: #### U JOEY BUTTRO #### [facility] [address] [place] [address] Dr. Ashwin Key ALT [Catalytic activity/Vol] 20 U/L Normal 14-59 [facility] Comment on above: Performed By: #### U JOEY BUTTRO #### [facility] [address] [place] [address] Dr. Ashwin Key Anion gap [Moles/Vol] 12.0 mmol/L Normal [facility] Comment on above: Performed By: #### U JOEY BUTTRO #### [facility] [address] [address] [address] Ashwin Key AST [Catalytic activity/Vol] 18 U/L Normal 15-37 [facility] Comment on above: Performed By: #### U ACSJAZMIN, UMICRO #### [facility] [address] [address] [address] Ashwin Key Bilirubin [Mass/Vol] 0.8 mg/dL Normal 0.2-1.0 [facility] Comment on above: Performed By: #### U ACSIND, UMICRO #### [facility] [address] [address] [address] Ashwin Key Calcium [Mass/Vol] 8.1 mg/dL Critically low 8.5-10.1 [facility] Comment on above: Performed By: #### U ACSIND, UMICRO #### [facility] [address] [address] [address] Ashwin Key Chloride [Moles/Vol] 99 mmol/L Normal 98-107 [facility] Comment on above: Performed By: #### U ACSJAZMIN, UMICRO #### [facility] [address] [address] [address] Ashwin Key CO2 [Moles/Vol] 33.7 mmol/L Critically high 21.0-32.0 [facility] Comment on above: Performed By: #### U ACSJAZMIN, UMICRO #### [facility] [address] [address] [address] Ashwin Key Creatinine [Mass/Vol] 1.07 mg/dL Critically high 0.55-1.02 [facility] Comment on above: Performed By: #### U ACSIND, UMICRO #### [facility] [address] [address] [address] Ashwin Key EGFR-AF BARBADIAN 60 mL/min/1.73m2 Normal >=60 [facility] Comment on above: Performed By: #### U ACSIND, UMICRO #### [facility] [address] [address] [address] Ashwin Key EGFR-NON AF BARBADIAN 50 mL/min/1.73m2 Critically low >=[address] [facility] Comment on above: Performed By: #### U ACSGURVINDER WUICRO #### [facility] [address] [address] [address] Ashwin Key Globulin (S) [Mass/Vol] 3.0 g/dL Normal [facility] Comment on above: Performed By: #### U ACSJAZMIN UMICRO #### [facility] [address] [address] [address] Ashwin Key Glucose [Mass/Vol] 76 mg/dL Normal 74-106 [facility] Comment on above: Performed By: #### U GURVINDER BUTTICRO #### [facility] [address] [place] [address] Dr. Ashwin Key Potassium [Moles/Vol] 4.7 mmol/L Normal 3.5-5.[address] [facility] Comment on above: Performed By: #### U GURVINDER BUTTICRO #### [facility] [address] [place] [address] Dr. Ashwin Key Protein [Mass/Vol] 6.6 g/dL Normal 6.4-8.2 [facility] Comment on above: Performed By: #### GURVINDER DIEGOICRO #### [facility] [address] [place] [address] Dr. Ashwin Key Sodium [Moles/Vol] 140 mmol/L Normal 136-145 [facility] Comment on above: Performed By: #### U ACSGURVINDER WUICRO #### [facility] [address] [place] [address] Dr. Ashwin Key Urea nitrogen [Mass/Vol] 31.0 mg/dL Critically high 7.0-18.[address] [facility] Comment on above: Performed By: #### U ACSGURVINDER WUICRO #### [facility] [address] [place] [address] Dr. Ashwin Key Urea nitrogen/Creatinine [Mass ratio] 29.0 mg/mg Normal [facility] Comment on above: Performed By: #### U ACSJAZMIN UMICRO #### [facility] [address] [place] [address] Dr. Ashwin Key UA RANDOMon 02-07-2022 Bilirubin Ql (U) Negative Normal NEGATIVE [facility] Comment on above: Performed By: #### U A #### [facility] [address] [place] [address] Dr. Ashwin Key Clarity (U) CLEAR Normal CLEAR [facility] Comment on above: Performed By: #### U A #### [facility] Laboratory [address] [place] [address] Dr. Ashwin Key Color (U) LT. YELLOW Normal YELLOW [facility] Comment on above: Performed By: #### U A #### [facility] [address] [place] [address] Dr. Ashwin Key Glucose Ql (U) Negative Normal NEGATIVE [facility] Comment on above: Performed By: #### U A #### [facility] [address] [place] [address] Dr. Ashwin Key Hemoglobin Ql (U) Negative Normal NEGATIVE [facility] Comment on above: Performed By: #### U A #### [facility] [address] [place] [address] Dr. Ashwin Key Ketones Ql (U) TRACE Abnormal NEGATIVE [facility] Comment on above: Performed By: #### U A #### [facility] [address] [place] [address] Dr. Ashwin Key LEUKOCYTES SMALL Abnormal NEGATIVE [facility] Comment on above: Performed By: #### U A #### [facility] [address] [place] [address] Dr. Ashwin Key Nitrite Ql (U) Positive Abnormal NEGATIVE [facility] Comment on above: Performed By: #### U A #### [facility] [address] [place] [address] Dr. Ashwin Key pH (U) 6.0 [pH] Normal 5-9 [facility] Comment on above: Performed By: #### U A #### [facility] [address] [place] [address] Dr. Ashwin Key SPEC GRAVITY 1.020 Normal 1.005-<=1.025 [facility] Comment on above: Performed By: #### U A #### [facility] [address] [address] [address] Ashwin Key UA PROTEIN Negative Normal NEGATIVE/ TRACE [facility] Comment on above: Performed By: #### U A #### [facility] [address] [place], [place] [address] Dr. Ashwin Key Urobilinogen Qn (U) 1.0 {Mercedes'U}/dL Normal 0.2 - 1. 0 [facility] Comment on above: Performed By: #### U A #### [facility] [address] [address] [address] Ashwin Alvarez (Potassium)on 01-30-2017 Potassium molar conc 4.2 mmol/L Normal 3.7-5.3 [facility] Comment on above: Result Comment: Perf ormed at [address] [place], [place] [address] [phone] Performed By: #### K ####[address] , [place] [id number] Encounters Encounter Date Encounter Type Care Provider Facility Start: 08-22-2022 End: 08-22-[address] PRANAV CAMPOS Facility:[facility] Start: 08-12-2022 End: 08-12-[address] DOCTOR MONTANO Facility:[facility] Start: 08-10-2022 End: 08-10-[address] PRANAV CAMPOS Facility:[facility] Start: 07-11-2022 End: 07-11-[address] PRANAV CAMPOS Facility:[facility] Start: 02-07-2022 End: 02-07-[address] PRANAV CAMPOS Facility:[facility] Start: 01-31-2017 End: 02-01-2017 [facility] Start: 01-30-2017 End: 01-31-2017 [facility] Procedures Date Procedure Procedure Detail Performing Clinician Start: 01-30-2017 POTASSIUM NEPTALI BEE Payers Date Payer Category Payer Medicare [id number] 1960 Medicaid [id number] 1960 Medicare [id number] 1945 Unknown [id number] 2.16.84 [id number] 1945 Unknown [id number] 2.16.84 [id number] 1945 Unknown [id number] 2.16.84 [id number] 1945 Unknown [id number] 2.16.84 [id number] 1945 Unknown [id number] 2.16.84 [id number] Summary Purpose Family History No Family History Records FoundNo Family History Records Found Advance Directives No Advanced Directives Records FoundNo Advanced Directives Records Found Additional Source Comments INFORMATION SOURCE (unrecogn ized section and content) DATE CREATED AUTHOR 11/08/2017 [facility] DATE CREATED AUTHOR AUTHOR'S HARJINDER ATMARCOS 09/09/2022 [facility] FOR RECORDS PERTAINING TO PATIENTS WHO ARE OR HAVE BEEN ENROLLED IN A CHEMICAL DEPENDENCY/SUBSTANCEABUSE PROGRAM, SOME INFORMATION MAY BE OMITTED. This clinical summary was aggregated from multiple sources. Caution should be exercised in using it in the provision of clinical care. This summary normalizes information from multiple sources, and as a consequence, information in this document may materially change the coding, format and clinical context of patient data. In addition, data may be omitted in some cases. CLINICAL DECISIONS SHOULD BE BASED ON THE PRIMARY CLINICAL RECORDS. [facility] [employer] provides no warranty or guarantee of the accuracy or completeness of information in this document.
[2023-05-29 09:22] LABS: Anion Gap 7.6; BUN Creatinine Ratio 26.3; Basophils Percent Auto 0.4 % (0.2-2.0); Calcium 8.1 mg/dL (8.5-10.1); Carbon Dioxide 35.1 mmol/L (21.0-32.0); Chloride 104 mmol/L (98-107); Estimated GFR (African America >60 (>=60); Estimated GFR (Non-African Ame 57 (>=60); Glucose 87 mg/dL (74-106); Hematocrit 40.8 % (36.0-48.0); Hemoglobin 12.2 g/dL (12.0-16.0); Immature Granulocytes Abs Auto 0.02 10^3/uL (0.00-0.03); Immature Granulocytes Pct Auto 0.4 % (0.0-0.5); Lymphocytes Absolute Auto 1.9 10^3/uL (1.2-3.8); Lymphocytes Percent Auto 43.6 % (20.5-60.0); Mean Corpuscular HGB Conc 29.9 g/dL (29.9-35.2); Mean Corpuscular Volume 96.9 fL (81.0-99.0); Mean Platelet Volume 10.5 fL (9.5-13.5); Monocytes Absolute Auto 0.4 10^3/uL (0.3-0.8); Monocytes Percent Auto 9.2 % (1.7-12.0); Neutrophils Absolute Auto 2.1 10^3/uL (1.4-6.5); Neutrophils Percent Auto 46.4 % (43.0-75.0); Platelet Count 158 10^3/uL (150-450); Potassium 3.7 mmol/L (3.5-5.1); Red Blood Count 4.21 10^6/uL (4.20-5.40); Red Cell Distribution Width 13.9 % (11.0-15.0); Sodium 143 mmol/L (136-145); White Blood Count 4.5 10^3/uL (4.0-11.0)
== END 2023-05-29 05:47 | disposition home or self-care (01) ==
LOC: LAB 05:46
PROVIDERS: PCP Family Medicine; Visit Provider Family Medicine
DX: I50.21 Acute systolic (congestive) heart failure (principal); I10 Essential (primary) hypertension; E66.01 Morbid (severe) obesity due to excess calories
CPT/HCPCS: 36415; 80048; 85025

== ENCOUNTER 2023-07-10 00:58 | Outpatient (REF) | payer MEDICARE, MEDICAID, SELFPAY ==
--- OUTSIDE RECORDS SUMMARY | 2023-07-10 01:02 | XMS_ITS | CCD ---
Author Name Unknown Address [address] [place] [address] [id number] [place] [address] Organization [facility] Care Team Providers Care Media Analyst Name Role Phone NEPTALI VILLALTA Unavailable Unavailabl [...] D, 25-Hydroxy 35.9 ng/mL Normal 30.0-100.0 [facility] Comment on above: Result Comment: Jadyn min D deficiency has been defined by the [place] [employer] and an Endocrine Society practice guideline as a level of serum 25-OH vitamin D less than 20 ng/mL (1,2). The Endocrine Society went on to further define vitamin D insufficiency as a level between 21 and 29 ng/mL (2). 1. IOM ([place] [employer]). 2010. Dietary reference intakes for calcium and D. [place]: The National Academies Press. 2. Yamilex MF, Florecita CAMP, MalaBronson OTTO et al. Evaluation, treatment, and prevention of vitamin D deficiency: an Endocrine Society clinical practice guideline. JCEM. 2010; 96(7):1911-30. Performed By: #### V ITADLC #### [facility] [address] [place] [address] Dr. Ashwin Key CBC AUTO DIFFon 08-22-2022 BASO # 0.0 103/ul Normal 0.0-0.1 [facility] Comment on above: Performed By: #### C BC #### [facility] [address] [place] [address] Dr. Ashwin Key Basophils/100 WBC (Bld) 0.5 % Normal 0.2-2.0 [facility] Comment on above: Performed By: #### C BC #### [facility] [address] [place] [address] Dr. Ashwin Key EO # 0.0 103/ul Normal 0.0-0.7 [facility] Comment on above: Performed By: #### C BC #### [facility] [address] [place] [address] Dr. Ashwin Key Eosinophils/100 WBC (Bld) 0.0 % Critically low 0.9-7.0 [facility] Comment on above: Performed By: #### C BC #### [facility] [address] [place] [address] Dr. Ashwin Key Erythrocyte distribution width (RBC) [Ratio] 14.7 % Normal 11.0-15.0 [facility] Comment on above: Performed By: #### C BC #### [facility] [address] [place] [address] Dr. Ashwin Key Hematocrit (Bld) [Volume fraction] 38.0 % Normal 36.0-48.0 [facility] Comment on above: Performed By: #### C BC #### [facility] [address] [place] [address] Dr. Ashwin Key Hemoglobin (Bld) [Mass/Vol] 11.5 g/dL Critically low 12.0-16.0 [facility] Comment on above: Performed By: #### C BC #### [facility] [address] [place] [address] Dr. Ashwin Key IG # 0.01 10e3/ul Normal 0.00-0.03 [facility] Comment on above: Performed By: #### C BC #### [facility] [address] [place] [address] Dr. Ashwin Key IG % 0.2 % Normal 0.0-0.5 [facility] Comment on above: Performed By: #### C BC #### [facility] [address] [place] [address] Dr. Ashwin Key LYMPH # 2.1 103/ul Normal 1.2-3.8 [facility] Comment on above: Performed By: #### C BC #### [facility] [address] [place] [address] Dr. Ashwin Key Lymphocytes/100 WBC (Bld) 48.4 % Normal 20.5-60.0 [facility] Comment on above: Performed By: #### C BC #### [facility] [address] [place] [address] Dr. Ashwin Key MANUAL DIFF REQ NO Normal [facility] Comment on above: Performed By: #### C BC #### [facility] [address] [place] [address] Dr. Ashwin Key MCH (RBC) [Entitic mass] 28.8 pg Normal 26.7-34.0 [facility] Comment on above: Performed By: #### C BC #### [facility] [address] [place] [address] Dr. Ashwin Key MCHC (RBC) [Mass/Vol] 30.3 g/dL Normal 29.9-35.2 [facility] Comment on above: Performed By: #### C BC #### [facility] [address] [place] [address] Dr. Ashwin Key MCV (RBC) [Entitic vol] 95.0 fL Normal 81.0-99.0 [facility] Comment on above: Performed By: #### C BC #### [facility] [address] [place], [place] [id number] Dr. Ashwin Key MONO # 0.4 103/ul Normal 0.3-0.8 [facility] Comment on above: Performed By: #### C BC #### [facility] [address] [place] [address] Dr. Ashwin Key Monocytes/100 WBC (Bld) 9.3 % Normal 1.7-12.0 [facility] Comment on above: Performed By: #### C BC #### [facility] [address] [place] [address] Dr. Ashwin Key NEUT # 1.8 103/ul Normal 1.4-6.5 [facility] Comment on above: Performed By: #### C BC #### [facility] [address] [place] [address] Dr. Ashwin Key Neutrophils/100 WBC (Bld) 41.6 % Critically low 43.0-75.0 [facility] Comment on above: Performed By: #### C BC #### [facility] [address] [place] [address] Dr. Ashwin Key Platelet mean volume (Bld) [Entitic vol] 10.3 fL Normal 9.5-13.5 [facility] Comment on above: Performed By: #### C BC #### [facility] [address] [place] [address] Dr. Ashwin Key PLT 166 103/ul Normal 150-450 [facility] Comment on above: Performed By: #### C BC #### [facility] [address] [place] [address] Dr. Ashwin Key RBC 4.00 106/ul Critically low 4.20-5.40 [facility] Comment on above: Performed By: #### C BC #### [facility] [address] [place] [address] Dr. Ashwin Key WBC 4.4 103/ul Normal 4.0-11.0 [facility] Comment on above: Performed By: #### C BC #### [facility] [address] [place] [address] Dr. Ashwin Key GLYCOHEMOGLOBIN A1Con 2022 ADA RECOMMENDATION SEE BELOW Normal [facility] Comment on above: Result Comment: ADA RECOMMENDED LIMIT 4.0 - 6.0 ADA THERAPEUTIC TARGET < 7.0 ACTION SUGGESTED > 7.0 Performed By: #### A 1C #### [facility] [address] [address] [address] Ashwin Key Glucose [Mass/Vol] 105 mg/dL Normal [facility] Comment on above: Performed By: #### A 1C #### [facility] [address] [address] [address] Ashwin Key HbA1c (Bld) [Mass fraction] 5.3 % Normal 4.5-6.2 [facility] Comment on above: Performed By: #### A 1C #### [facility] [address] [place] [address] Dr. Ashwin Key LIPID PROFILEon 08-22-2022 CHOL-HDL RATIO NORM SEE BELOW Normal [facility] Comment on above: Result Comment: 3.3 - 4.4 LOW RISK 4.4 - 7.1 AVERAGE RISK 7.1 - 11.0 MODERATE RISK >11.0 HIGH RISK Performed By: #### U ACSJAZMIN UMICRO #### [facility] [address] [place] [address] Dr. Ashwin Key Cholesterol [Mass/Vol] 103 mg/dL Normal <=200 [facility] Comment on above: Performed By: #### U ACSJAZMIN UMICRO #### [facility] [address] [address] [address] Ashwin Key Cholesterol in HDL [Mass/Vol] 40 mg/dL Normal 40-60 [facility] Comment on above: Performed By: #### U ACSJAZMIN UMICRO #### [facility] [address] [address] [address] Ashwin Key Cholesterol in LDL [Mass/Vol] 51.8 mg/dL Normal [facility] Comment on above: Performed By: #### U ACSJAZMIN UMICRO #### [facility] [address] [address] [address] Ashwin Key Cholesterol.total/Cho lesterol in HDL [Mass ratio] 2.6 {ratio} Normal [facility] Comment on above: Performed By: #### U ACSJAZMIN UMICRO #### [facility] [address] [address] [address] Ashwin Key HDL NORMAL > or = 60 mg/dl - LOW CARDIOVASCULAR RISK <40 mg/dl - HIGH CARDIOVASCULAR RISK Normal [facility] Comment on above: Performed By: #### U ACSJAZMIN, UMICRO #### [facility] [address] [address] [address] Ashwin Key LDL CALC NORMAL SEE BELOW Normal [facility] Comment on above: Result Comment: <100 mg/dl OPTIMAL 100 - 129 mg/dl NEAR OR ABOVE OPTIMAL 130 - 159 mg/dl BORDERLINE HIGH 160 - 189 mg/dl HIGH >190 mg/dl VERY HIGH Performed By: #### U ACSJAZMIN, UMICRO #### [facility] [address] [address] [address] Ashwin Key Triglyceride [Mass/Vol] 56 mg/dL Normal <=150 [facility] Comment on above: Performed By: #### U ACSJAZMIN UMICRO #### [facility] [address] [address] [address] Ashwin Key VLDL CALC 11.2 mg/dL Normal [facility] Comment on above: Performed By: #### U ACSJAZMIN, UMICRO #### [facility] [address] [address] [address] Ashwin Key PROF 14(COMP METB)on 023 Albumin [Mass/Vol] 2.5 g/dL Critically low 3.4-5.0 [facility] Comment on above: Performed By: #### U ACSJAZMIN, UMICRO #### [facility] [address] [address] [address] Ashwin Key Albumin/Globulin [Mass ratio] 0.7 {ratio} Normal [facility] Comment on above: Performed By: #### U ACSJAZMIN, UMICRO #### [facility] [address] [address] [address] Ashwin Key ALP [Catalytic activity/Vol] 110 U/L Normal 46-116 [facility] Comment on above: Performed By: #### U ACSJAZMIN UMICRO #### [facility] [address] [place] [address] Dr. Ashwin Key ALT [Catalytic activity/Vol] 16 U/L Normal 14-59 [facility] Comment on above: Performed By: #### U FILOMENA UMICRO #### [facility] [address] [place] [address] Dr. Ashwin Key Anion gap [Moles/Vol] 9.8 mmol/L Normal [facility] Comment on above: Performed By: #### U ACSJAZMIN UMICRO #### [facility] [address] [place] [address] Dr. Ashwin Key AST [Catalytic activity/Vol] 13 U/L Critically low 15-37 [facility] Comment on above: Performed By: #### Lisseth BUTT UMICRO #### [facility] [address] [place] [address] Dr. Ashwin Key Bilirubin [Mass/Vol] 0.4 mg/dL Normal 0.2-1.0 [facility] Comment on above: Performed By: #### GURVINDER DIEGOICRO #### [facility] [address] [place] [address] Dr. Ashwin Key Calcium [Mass/Vol] 8.5 mg/dL Normal 8.5-10.1 [facility] Comment on above: Performed By: #### U FILOMENA UMICRO #### [facility] [address] [place] [address] Dr. Ashwin Key Chloride [Moles/Vol] 108 mmol/L Critically high 98-107 [facility] Comment on above: Performed By: #### U ACSJAZMIN UMICRO #### [facility] [address] [place] [address] Dr. Ashwin Key CO2 [Moles/Vol] 31.0 mmol/L Normal 21.0-32.0 [facility] Comment on above: Performed By: #### U FILOMENA UMICRO #### [facility] [address] [address] [address] Ashwin Key Creatinine [Mass/Vol] 0.91 mg/dL Normal 0.55-1.02 [facility] Comment on above: Performed By: #### U ACSJAZMIN, UMICRO #### [facility] [address] [address] [address] Ashwin Key EGFR-AF CITIZEN [place] >60 Normal >=60 [facility] Comment on above: Performed By: #### U ACSJAZMIN, UMICRO #### [facility] [address] [address] [address] Ashwin Key EGFR-NON AF CITIZEN [place] 60 mL/min/1.73m2 Normal >=60 [facility] Comment on above: Performed By: #### U ACSJAZMIN, UMICRO #### [facility] [address] [place] [address] Dr. Ashwin Key Globulin (S) [Mass/Vol] 3.5 g/dL Normal [facility] Comment on above: Performed By: #### U ACSJAZMIN, UMICRO #### [facility] [address] [address] [address] Ashwin Key Glucose [Mass/Vol] 99 mg/dL Normal 74-106 [facility] Comment on above: Performed By: #### U ACSJAZMIN, UMICRO #### [facility] [address] [place] [address] Dr. Ashwin Key Potassium [Moles/Vol] 3.8 mmol/L Normal 3.5-5.1 [facility] Comment on above: Performed By: #### U ACSJAZMIN, UMICRO #### [facility] [address] [address] [address] Ashwin Key Protein [Mass/Vol] 6.0 g/dL Critically low 6.4-8.2 Th [facility] Comment on above: Performed By: #### U ACSIND, UMICRO #### [facility] [address] [address] [address] Ashwin Key Sodium [Moles/Vol] 145 mmol/L Normal 136-145 [facility] Comment on above: Performed By: #### U ACSJAZMIN UMICRO #### [facility] [address] [place] [address] Dr. Ashwin Key Urea nitrogen [Mass/Vol] 24.0 mg/dL Critically high 7.0-18.0 [facility] Comment on above: Performed By: #### U ACSJAZMIN UMICRO #### [facility] [address] [place] [address] Dr. Ashwin Key Urea nitrogen/Creatinine [Mass ratio] 26.4 mg/mg Normal [facility] Comment on above: Performed By: #### U ACSGURVINDER UWICRO #### [facility] [address] [place] [address] Dr. Ashwin Key TSHon 08-22-2022 TSH 5.573 uIU/mL Critically high 0.358-3.740 [facility] Comment on above: Performed By: #### U GURVINDER BUTTICRO #### [facility] [address] [place] [address] Dr. Ashwin Key CBC AUTO DIFFon 08-10-2022 BASO # 0.0 103/ul Normal 0.0-0.1 [facility] Comment on above: Performed By: #### C BC #### [facility] [address] [place] [address] Dr. Ashwin Key Basophils/100 WBC (Bld) 0.7 % Normal 0.2-2.0 [facility] Comment on above: Performed By: #### C BC #### [facility] [address] [place] [address] Dr. Ashwin Key EO # 0.0 103/ul Normal 0.0-0.7 [facility] Comment on above: Performed By: #### C BC #### [facility] [address] [place] [address] Dr. Ashwin Key Eosinophils/100 WBC (Bld) 0.0 % Critically low 0.9-7.0 [facility] Comment on above: Performed By: #### C BC #### [facility] [address] [place] [address] Dr. Ashwin Key Erythrocyte distribution width (RBC) [Ratio] 15.1 % Critically high 11.0-15.0 [facility] Comment on above: Performed By: #### C BC #### [facility] [address] [place] [address] Dr. Ashwin Key Hematocrit (Bld) [Volume fraction] 38.0 % Normal 36.0-48.0 [facility] Comment on above: Performed By: #### C BC #### [facility] [address] [place] [address] Dr. Ashwin Key Hemoglobin (Bld) [Mass/Vol] 11.4 g/dL Critically low 12.0-16.0 [facility] Comment on above: Performed By: #### C BC #### [facility] [address] [place] [address] Dr. Ashwin Key IG # 0.02 10e3/ul Normal 0.00-0.03 [facility] Comment on above: Performed By: #### C BC #### [facility] [address] [place] [address] Dr. Ashwin Key IG % 0.5 % Normal 0.0-0.5 [facility] Comment on above: Performed By: #### C BC #### [facility] [address] [place] [address] Dr. Ashwin Key LYMPH # 2.1 103/ul Normal 1.2-3.8 [facility] Comment on above: Performed By: #### C BC #### [facility] [address] [place] [address] Dr. Ashwin Key Lymphocytes/100 WBC (Bld) 48.4 % Normal 20.5-60.0 [facility] Comment on above: Performed By: #### C BC #### [facility] [address] [place] [address] Dr. Ashwin Key MANUAL DIFF REQ NO Normal [facility] Comment on above: Performed By: #### C BC #### [facility] [address] [place] [address] Dr. Ashwin Key MCH (RBC) [Entitic mass] 28.8 pg Normal 26.7-34.0 [facility] Comment on above: Performed By: #### C BC #### [facility] [address] [place] [address] Dr. Ashwin Key MCHC (RBC) [Mass/Vol] 30.0 g/dL Normal 29.9-35.2 [facility] Comment on above: Performed By: #### C BC #### [facility] [address] [place] [address] Dr. Ashwin Key MCV (RBC) [Entitic vol] 96.0 fL Normal 81.0-99.0 [facility] Comment on above: Performed By: #### C BC #### [facility] [address] [place] [address] Dr. Ashwin Key MONO # 0.3 103/ul Normal 0.3-0.8 [facility] Comment on above: Performed By: #### C BC #### [facility] [address] [place] [address] Dr. Ashwin Key Monocytes/100 WBC (Bld) 7.7 % Normal 1.7-12.0 [facility] Comment on above: Performed By: #### C BC #### [facility] [address] [place] [address] Dr. Ashwin Key NEUT # 1.8 103/ul Normal 1.4-6.5 [facility] Comment on above: Performed By: #### C BC #### [facility] [address] [place] [address] Dr. Ashwin Key Neutrophils/100 WBC (Bld) 42.7 % Critically low 43.0-75.0 [facility] Comment on above: Performed By: #### C BC #### [facility] [address] [place] [address] Dr. Ashwin Key Platelet mean volume (Bld) [Entitic vol] 10.1 fL Normal 9.5-13.5 [facility] Comment on above: Performed By: #### C BC #### [facility] [address] [place] [address] Dr. Ashwin Key PLT 156 103/ul Normal 150-450 [facility] Comment on above: Performed By: #### C BC #### [facility] [address] [address] [address] Ashwin Key RBC 3.96 106/ul Critically low 4.20-5.40 [facility] Comment on above: Performed By: #### C BC #### [facility] [address] [address] [address] Ashwin Key WBC 4.3 103/ul Normal 4.0-11.0 [facility] Comment on above: Performed By: #### C BC #### [facility] [address] [address] [address] Ashwin Key PROF CHEM 8 (BAS METB)on Anion gap [Moles/Vol] 13.3 mmol/L Normal [facility] Comment on above: Performed By: #### U JOEY BUTTRO #### [facility] [address] [place] [address] Dr. Ashwin Key Calcium [Mass/Vol] 8.3 mg/dL Critically low 8.5-10.1 [facility] Comment on above: Performed By: #### JUAN F DIEGO #### [facility] [address] [place] [address] Dr. Ashwin Key Chloride [Moles/Vol] 111 mmol/L Critically high 98-107 [facility] Comment on above: Performed By: #### U JOEY BUTTRO #### [facility] [address] [place] [address] Dr. Ashwin Key CO2 [Moles/Vol] 29.9 mmol/L Normal 21.0-32.0 [facility] Comment on above: Performed By: #### U JOEY BUTTRO #### [facility] [address] [place] [address] Dr. Ashwin Key Creatinine [Mass/Vol] 0.92 mg/dL Normal 0.55-1.02 [facility] Comment on above: Performed By: #### U JOEY BUTTRO #### [facility] [address] [address] [address] Ashwin Key EGFR-AF CITIZ[place] >60 Normal >=60 [facility] Comment on above: Performed By: #### U FILOMNEA UMICRO #### [facility] [address] [address] [address] Ashwin Key EGFR-NON AF [place]IZEN [place] 59 mL/min/1.73m2 Critically low >=60 [facility] Comment on above: Performed By: #### U FILOMENA UMICRO #### [facility] [address] [address] [address] Ashwin Key Glucose [Mass/Vol] 84 mg/dL Normal 74-106 [facility] Comment on above: Performed By: #### U ACSJAZMIN UMICRO #### [facility] [address] [place] [address] Dr. Ashwin Key Potassium [Moles/Vol] 4.2 mmol/L Normal 3.5-5.1 [facility] Comment on above: Performed By: #### U FILOMENA UMICRO #### [facility] [address] [address] [address] Ashwin Key Sodium [Moles/Vol] 150 mmol/L Critically high 136-145 [facility] Comment on above: Performed By: #### U FILOMENA UMICRO #### [facility] [address] [place] [address] Dr. Ashwin Key Urea nitrogen [Mass/Vol] 25.0 mg/dL Critically high 7.0-18.0 [facility] Comment on above: Performed By: #### U ACSJAZMIN UMICRO #### [facility] [address] [address] [address] Ashwin Key Urea nitrogen/Creatinine [Mass ratio] 27.2 mg/mg Normal [facility] Comment on above: Performed By: #### U FILOMENA, UMICRO #### [facility] [address] [address] [address] Ashwin Key TSHon 08-10-2022 TSH 3.430 uIU/mL Normal 0.358-3.740 [facility] Comment on above: Performed By: #### U ACSIND, UMICRO #### [facility] [address] [address] [address] Ashwin Key CULTURE URINEon 08-09-2022 CULTURE URINE Culture Observations: ANSON TO FOLLOW. Normal [facility] Comment on above: Performed By: #### U ACSIND, UMICRO #### [facility] [address] [address] [address] Ashwin Key UA (CLEAN/CATCH) GEOPHYSICS TEACHER/MICRO I F IND.on 08-09-2022 Bilirubin Ql (U) Negative Normal NEGATIVE [facility] Comment on above: Performed By: #### U ACSIND, UMICRO #### [facility] [address] [address] [address] Ashwin Key Clarity (U) CLEAR Normal CLEAR [facility] Comment on above: Performed By: #### U ACSIND, UMICRO #### [facility] [address] [address] [address] Ashwin Key Color (U) LT. YELLOW Normal YELLOW [facility] Comment on above: Performed By: #### U ACSIND, UMICRO #### [facility] [address] [address] [address] Ashwin Key Glucose Ql (U) Negative Normal NEGATIVE [facility] Comment on above: Performed By: #### U ACSIND, UMICRO #### [facility] [address] [address] [address] Ashwin Key Hemoglobin Ql (U) TRACE-INTACT Abnormal NEGATIVE [facility] Comment on above: Performed By: #### U ACSIND, UMICRO #### [facility] [address] [address] [address] Ashwin Key Ketones Ql (U) Negative Normal NEGATIVE [facility] Comment on above: Performed By: #### U ACSIND, UMICRO #### [facility] [address] [address] [address] Ashwin Key LEUKOCYTES TRACE Abnormal NEGATIVE [facility] Comment on above: Performed By: #### U ACSIND, UMICRO #### [facility] [address] [address] [address] Ashwin Key Nitrite Ql (U) Negative Normal NEGATIVE [facility] Comment on above: Performed By: #### U ACSJAZMIN UMICRO #### [facility] [address] [address] [address] Ashwin Key pH (U) 5.5 [pH] Normal 5-9 [facility] Comment on above: Performed By: #### U ACSGURVINDER WUICRO #### [facility] [address] [address] [address] Ashwin Key SPEC GRAVITY <=1.005 Abnormal 1.005-<=1.025 [facility] Comment on above: Performed By: #### U FILOMENA UMICRO #### [facility] [address] [address] [address] Ashwin Key UA PROTEIN Negative Normal NEGATIVE/ TRACE [facility] Comment on above: Performed By: #### U JOEY BUTTRO #### [facility] [address] [place] [address] Dr. Ashwin Key UR MICRO IND INDICATED Normal [facility] Comment on above: Performed By: #### U JOEY BUTTRO #### [facility] [address] [address] [address] Ashwin Key Urobilinogen Qn (U) 0.2 {Mercedes'U}/dL Normal 0.2 - 1. 0 [facility] Comment on above: Performed By: #### U FILOMENA UMICRO #### [facility] [address] [place] [address] Dr. Ashwin Key URINE MICROSCOPIC ONLYon AMORPHOUS CRYSTALS FEW Normal [facility] Comment on above: Performed By: #### U ACSJAZMIN UMICRO #### [facility] [address] [place] [address] Dr. Ashwin Key BACTERIA MODERATE Abnormal NONE SEEN [facility] Comment on above: Performed By: #### U JOEY UBTTRO #### [facility] [address] [address] [address] Ashwin Key Bacteria identified Cx Nom (U) INDICATED Normal [facility] Comment on above: Performed By: #### U ACSIND, UMICRO #### [facility] [address] [place] [address] Dr. Ashwin Key CAST NONE SEEN Normal NONE SEEN [facility] Comment on above: Performed By: #### U ACSIND, UMICRO #### [facility] [address] [place] [address] Dr. Ashwin Key Crystals LM Nom (Urine sed) SEEN Abnormal NONE SEEN [facility] Comment on above: Performed By: #### U ACSIND, UMICRO #### [facility] [address] [place] [address] Dr. Ashwin Key Epithelial cells LM Ql (Urine sed) MANY Abnormal NONE SEEN /RARE [facility] Comment on above: Performed By: #### U ACSIND, UMICRO #### [facility] [address] [place] [address] Dr. Ashwin Key MUCOUS NONE SEEN Normal NONE SEEN [facility] Comment on above: Performed By: #### U ACSIND, UMICRO #### [facility] [address] [place] [address] Dr. Ashwin Key RBC 0-2 Normal 0-2 [facility] Comment on above: Performed By: #### U ACSIND, UMICRO #### [facility] [address] [place] [address] Dr. Ashwin Key WBC 2-5 Abnormal NONE SEEN [facility] Comment on above: Performed By: #### U ACSIND, UMICRO #### [facility] [address] [place] [address] Dr. Ashwin Key CBC AUTO DIFFon 07-11-2022 BASO # 0.0 103/ul Normal 0.0-0.1 [facility] Comment on above: Performed By: #### C BC #### [facility] [address] [place] [address] Dr. Ashwin Key Basophils/100 WBC (Bld) 0.5 % Normal 0.2-2.0 [facility] Comment on above: Performed By: #### C BC #### [facility] [address] [place] [address] Dr. Ashwin Key EO # 0.0 103/ul Normal 0.0-0.7 [facility] Comment on above: Performed By: #### C BC #### [facility] [address] [place] [address] Dr. Ashwin Key Eosinophils/100 WBC (Bld) 0.0 % Critically low 0.9-7.0 [facility] Comment on above: Performed By: #### C BC #### [facility] [address] [place] [address] Dr. Ashwin Key Erythrocyte distribution width (RBC) [Ratio] 14.5 % Normal 11.0-15.0 [facility] Comment on above: Performed By: #### C BC #### [facility] [address] [place] [address] Dr. Ashwin Key Hematocrit (Bld) [Volume fraction] 42.5 % Normal 36.0-48.0 [facility] Comment on above: Performed By: #### C BC #### [facility] [address] [place] [address] Dr. Ashwin Key Hemoglobin (Bld) [Mass/Vol] 13.1 g/dL Normal 12.0-16.0 [facility] Comment on above: Performed By: #### C BC #### [facility] [address] [place] [address] Dr. Ashwin Key IG # 0.02 10e3/ul Normal 0.00-0.03 [facility] Comment on above: Performed By: #### C BC #### [facility] [address] [place] [address] Dr. Ashwin Key IG % 0.5 % Normal 0.0-0.5 [facility] Comment on above: Performed By: #### C BC #### [facility] [address] [place] [address] Dr. Ashwin Key LYMPH # 2.1 103/ul Normal 1.2-3.8 [facility] Comment on above: Performed By: #### C BC #### [facility] [address] [place] [address] Dr. Ashwin Key Lymphocytes/100 WBC (Bld) 48.2 % Normal 20.5-60.0 [facility] Comment on above: Performed By: #### C BC #### [facility] [address] [place] [address] Dr. Ashwin Key MANUAL DIFF REQ NO Normal [facility] Comment on above: Performed By: #### C BC #### [facility] [address] [place] [address] Dr. Ashwin Key MCH (RBC) [Entitic mass] 28.4 pg Normal 26.7-34.0 [facility] Comment on above: Performed By: #### C BC #### [facility] [address] [place] [address] Dr. Ashwin Key MCHC (RBC) [Mass/Vol] 30.8 g/dL Normal 29.9-35.2 [facility] Comment on above: Performed By: #### C BC #### [facility] [address] [place] [address] Dr. Ashwin Key MCV (RBC) [Entitic vol] 92.2 fL Normal 81.0-99.0 [facility] Comment on above: Performed By: #### C BC #### [facility] [address] [place] [address] Dr. Ashwin Key MONO # 0.4 103/ul Normal 0.3-0.8 [facility] Comment on above: Performed By: #### C BC #### [facility] [address] [place] [address] Dr. Ashwin Key Monocytes/100 WBC (Bld) 8.7 % Normal 1.7-12.0 [facility] Comment on above: Performed By: #### C BC #### [facility] [address] [place] [address] Dr. Ashwin Key NEUT # 1.8 103/ul Normal 1.4-6.5 [facility] Comment on above: Performed By: #### C BC #### [facility] [address] [address] [address] Ashwin Key Neutrophils/100 WBC (Bld) 42.1 % Critically low 43.0-75.0 [facility] Comment on above: Performed By: #### C BC #### [facility] [address] [address] [address] Ashwin Key Platelet mean volume (Bld) [Entitic vol] 10.4 fL Normal 9.5-13.5 [facility] Comment on above: Performed By: #### C BC #### [facility] [address] [address] [address] Ashwin Key PLT 159 103/ul Normal 150-450 [facility] Comment on above: Performed By: #### C BC #### [facility] [address] [place] [address] Dr. Ashwin Key RBC 4.61 106/ul Normal 4.20-5.40 [facility] Comment on above: Performed By: #### C BC #### [facility] [address] [place] [address] Dr. Ashwin Key WBC 4.3 103/ul Normal 4.0-11.0 [facility] Comment on above: Performed By: #### C BC #### [facility] [address] [place] [address] Dr. Ashwin Key PROF CHEM 8 (BAS METB)on Anion gap [Moles/Vol] 10.2 mmol/L Normal [facility] Comment on above: Performed By: #### B MP #### [facility] [address] [place] [address] Dr. Ashwin Key Calcium [Mass/Vol] 8.5 mg/dL Normal 8.5-10.1 [facility] Comment on above: Performed By: #### B MP #### [facility] [address] [place] [address] Dr. Ashwin Key Chloride [Moles/Vol] 104 mmol/L Normal 98-107 [facility] Comment on above: Performed By: #### B MP #### [facility] [address] [address] [address] Ashwin Key CO2 [Moles/Vol] 32.6 mmol/L Critically high 21.0-32.0 [facility] Comment on above: Performed By: #### B MP #### [facility] [address] [address] [address] Ashwin Key Creatinine [Mass/Vol] 0.91 mg/dL Normal 0.55-1.02 [facility] Comment on above: Performed By: #### B MP #### [facility] [address] [address] [address] Ashwin Key EGFR-AF CITIZ[place] >60 Normal >=60 [facility] Comment on above: Performed By: #### B MP #### [facility] [address] [place] [address] Dr. Ashwin Key EGFR-NON AF CITIZEN OF [place] =60 Normal >=60 [facility] Comment on above: Performed By: #### B MP #### [facility] [address] [address] [address] Ashwin Key Glucose [Mass/Vol] 89 mg/dL Normal 74-106 [facility] Comment on above: Performed By: #### B MP #### [facility] [address] [address] [address] Ashwin Key Potassium [Moles/Vol] 3.8 mmol/L Normal 3.5-5.1 [facility] Comment on above: Performed By: #### B MP #### [facility] [address] [address] [address] Ashwin Key Sodium [Moles/Vol] 143 mmol/L Normal 136-145 [facility] Comment on above: Performed By: #### B MP #### [facility] [address] [address] [address] Ashwin Key Urea nitrogen [Mass/Vol] 26.0 mg/dL Critically high 7.0-18.0 [facility] Comment on above: Performed By: #### B MP #### [facility] [address] [address] [address] Ashwin Key Urea nitrogen/Creatinine [Mass ratio] 28.6 mg/mg Normal [facility] Comment on above: Performed By: #### B MP #### [facility] [address] [place] [address] Dr. Ashwin Key CULTURE URINEon 02-11-2022 CULTURE [...] Trimethoprim/Sulfame thoxazole <=20 S F Normal [facility] Comment on above: Performed By: #### U ACSJOEY WURO #### [facility] [address] [place] [address] Dr. Ashwin Key CBC AUTO DIFFon 02-07-2022 BASO # 0.0 103/ul Normal 0.0-0.1 [facility] Comment on above: Performed By: #### C BC #### [facility] [address] [place] [address] Dr. Ashwin Key Basophils/100 WBC (Bld) 0.5 % Normal 0.2-2.0 [facility] Comment on above: Performed By: #### C BC #### [facility] [address] [place] [address] Dr. Ashwin Key EO # 0.0 103/ul Normal 0.0-0.7 [facility] Comment on above: Performed By: #### C BC #### [facility] [address] [place] [address] Dr. Ashwin Key Eosinophils/100 WBC (Bld) 0.0 % Critically low 0.9-7.0 [facility] Comment on above: Performed By: #### C BC #### [facility] [address] [place] [address] Dr. Ashwin Key Erythrocyte distribution width (RBC) [Ratio] 13.4 % Normal 11.0-15.0 [facility] Comment on above: Performed By: #### C BC #### [facility] [address] [place] [address] Dr. Ashwin Key Hematocrit (Bld) [Volume fraction] 46.8 % Normal 36.0-48.0 [facility] Comment on above: Performed By: #### C BC #### [facility] [address] [place] [address] Dr. Ashwin Key Hemoglobin (Bld) [Mass/Vol] 14.2 g/dL Normal 12.0-16.0 [facility] Comment on above: Performed By: #### C BC #### [facility] [address] [place] [address] Dr. Ashwin Key IG # 0.05 10e3/ul Critically high 0.00-0.03 [facility] [place] Comment on above: Performed By: #### C BC #### [facility] [address] [place] [address] Dr. Ashwin Key IG % 0.6 % Critically high 0.0-0.5 [facility] Comment on above: Performed By: #### C BC #### [facility] [address] [place] [address] Dr. Ashwin Key LYMPH # 2.0 103/ul Normal 1.2-3.8 [facility] Comment on above: Performed By: #### C BC #### [facility] [address] [place] [address] Dr. Ashwin Key Lymphocytes/100 WBC (Bld) 22.9 % Normal 20.5-60.0 [facility] Comment on above: Performed By: #### C BC #### [facility] [address] [place] [address] Dr. Ashwin Key MANUAL DIFF REQ NO Normal [facility] Comment on above: Performed By: #### C BC #### [facility] [address] [place] [address] Dr. Ashwin Key MCH (RBC) [Entitic mass] 29.1 pg Normal 26.7-34.0 [facility] Comment on above: Performed By: #### C BC #### [facility] [address] [address] [address] Ashwin Key MCHC (RBC) [Mass/Vol] 30.3 g/dL Normal 29.9-35.2 [facility] Comment on above: Performed By: #### C BC #### [facility] [address] [place] [address] Dr. Ashwin Key MCV (RBC) [Entitic vol] 95.9 fL Normal 81.0-99.0 [facility] Comment on above: Performed By: #### C BC #### [facility] [address] [place] [address] Dr. Ashwin Key MONO # 0.9 103/ul Critically high 0.3-0.8 [facility] Comment on above: Performed By: #### C BC #### [facility] [address] [place] [address] Dr. Ashwin Key Monocytes/100 WBC (Bld) 10.9 % Normal 1.7-12.0 [facility] Comment on above: Performed By: #### C BC #### [facility] [address] [place] [address] Dr. Ashwin Key NEUT # 5.6 103/ul Normal 1.4-6.5 [facility] Comment on above: Performed By: #### C BC #### [facility] [address] [place] [address] Dr. Ashwin Key Neutrophils/100 WBC (Bld) 65.1 % Normal 43.0-75.0 [facility] Comment on above: Performed By: #### C BC #### [facility] [address] [place] [address] Dr. Ashwin Key Platelet mean volume (Bld) [Entitic vol] 10.6 fL Normal 9.5-13.5 [facility] Comment on above: Performed By: #### C BC #### [facility] [address] [place] [address] Dr. Ashwin Key PLT 203 103/ul Normal 150-450 [facility] Comment on above: Performed By: #### C BC #### [facility] [address] [place] [address] Dr. Ashwin Key RBC 4.88 106/ul Normal 4.20-5.40 [facility] Comment on above: Performed By: #### C BC #### [facility] [address] [place] [address] Dr. Ashwin Key WBC 8.6 103/ul Normal 4.0-11.0 [facility] Comment on above: Performed By: #### C BC #### [facility] [address] [place] [address] Dr. Ashwin Key PROF 14(COMP METB)on 022 Albumin [Mass/Vol] 3.6 g/dL Normal 3.4-5.0 [facility] Comment on above: Performed By: #### U JOEY BUTTRO #### [facility] [address] [place] [address] Dr. Ashwin Key Albumin/Globulin [Mass ratio] 1.2 {ratio} Normal [facility] Comment on above: Performed By: #### U JOEY BUTTRO #### [facility] [address] [place] [address] Dr. Ashwin Key ALP [Catalytic activity/Vol] 128 U/L Critically high 46-116 [facility] Comment on above: Performed By: #### U JOEY BUTTRO #### [facility] [address] [place] [address] Dr. Ashwin Key ALT [Catalytic activity/Vol] 20 U/L Normal 14-59 [facility] Comment on above: Performed By: #### U JOEY BUTTRO #### [facility] [address] [place] [address] Dr. Ashwin Key Anion gap [Moles/Vol] 12.0 mmol/L Normal [facility] Comment on above: Performed By: #### U JOEY BUTTRO #### [facility] [address] [address] [address] Ashwin Key AST [Catalytic activity/Vol] 18 U/L Normal 15-37 [facility] Comment on above: Performed By: #### U ACSJAZMIN, UMICRO #### [facility] [address] [address] [address] Ashwin Key Bilirubin [Mass/Vol] 0.8 mg/dL Normal 0.2-1.0 [facility] Comment on above: Performed By: #### U ACSIND, UMICRO #### [facility] [address] [address] [address] Ashwin Key Calcium [Mass/Vol] 8.1 mg/dL Critically low 8.5-10.1 [facility] Comment on above: Performed By: #### U ACSIND, UMICRO #### [facility] [address] [address] [address] Ashwin Key Chloride [Moles/Vol] 99 mmol/L Normal 98-107 [facility] Comment on above: Performed By: #### U ACSJAZMIN, UMICRO #### [facility] [address] [address] [address] Ashwin Key CO2 [Moles/Vol] 33.7 mmol/L Critically high 21.0-32.0 [facility] Comment on above: Performed By: #### U ACSJAZMIN, UMICRO #### [facility] [address] [address] [address] Ashwin Key Creatinine [Mass/Vol] 1.07 mg/dL Critically high 0.55-1.02 [facility] Comment on above: Performed By: #### U ACSIND, UMICRO #### [facility] [address] [address] [address] Ashwin Key EGFR-AF [place]IZ[place] 60 mL/min/1.73m2 Normal >=60 [facility] Comment on above: Performed By: #### U ACSIND, UMICRO #### [facility] [address] [address] [address] Ashwin Key EGFR-NON AF CITIZEN OF [place] 50 mL/min/1.73m2 Critically low >=60 [facility] Comment on above: Performed By: #### U ACSGURVINDER WUICRO #### [facility] [address] [address] [address] Ashwin Key Globulin (S) [Mass/Vol] 3.0 g/dL Normal [facility] Comment on above: Performed By: #### U ACSJAZMIN UMICRO #### [facility] [address] [address] [address] Ashwin Key Glucose [Mass/Vol] 76 mg/dL Normal 74-106 [facility] Comment on above: Performed By: #### U GURVINDER BUTTICRO #### [facility] [address] [place] [address] Dr. Ashwin Key Potassium [Moles/Vol] 4.7 mmol/L Normal 3.5-5.1 [facility] Comment on above: Performed By: #### U GURVINDER BUTTICRO #### [facility] [address] [place] [address] Dr. Ashwin Key Protein [Mass/Vol] 6.6 g/dL Normal 6.4-8.2 [facility] Comment on above: Performed By: #### GURVINDER DIEGOICRO #### [facility] [address] [place] [address] Dr. Ashwin Key Sodium [Moles/Vol] 140 mmol/L Normal 136-145 [facility] Comment on above: Performed By: #### U ACSGURVINDER WUICRO #### [facility] [address] [place] [address] Dr. Ashwin Key Urea nitrogen [Mass/Vol] 31.0 mg/dL Critically high 7.0-18.0 [facility] Comment on above: Performed By: #### U ACSGURVINDER WUICRO #### [facility] [address] [place] [address] Dr. Ashwin Key Urea nitrogen/Creatinine [Mass ratio] 29.0 mg/mg Normal [facility] Comment on above: Performed By: #### U ACSJAZMIN UMICRO #### [facility] [address] [place] [address] Dr. Ashwin Key UA RANDOMon 02-07-2022 Bilirubin Ql (U) Negative Normal NEGATIVE [facility] Comment on above: Performed By: #### U A #### [facility] [address] [place] [address] Dr. Ashwin Key Clarity (U) CLEAR Normal CLEAR [facility] Comment on above: Performed By: #### U A #### [facility] [address] [place] [address] Dr. Ashwin Key Color (U) LT. YELLOW Normal YELLOW [facility] Comment on above: Performed By: #### U A #### [facility] [address] [place] [address] Dr. Ashwin Key Glucose Ql (U) Negative Normal NEGATIVE [facility] Comment on above: Performed By: #### U A #### [facility] [address] [place] [address] Dr. Ashwin Key Hemoglobin Ql (U) Negative Normal NEGATIVE [facility] [place] Comment on above: Performed By: #### U A #### [facility] [address] [place] [address] Dr. Ashwin Key Ketones Ql (U) TRACE Abnormal NEGATIVE [facility] Comment on above: Performed By: #### U A #### [facility] [address] [place] [address] Dr. Ashwin Key LEUKOCYTES SMALL Abnormal NEGATIVE [facility] Comment on above: Performed By: #### U A #### [facility] [address] [place] [address] Dr. Ashwin Key Nitrite Ql (U) Positive Abnormal NEGATIVE [facility] Comment on above: Performed By: #### U A #### [facility] [address] [place] [address] Dr. Ashwin Key pH (U) 6.0 [pH] Normal 5-9 [facility] Comment on above: Performed By: #### U A #### [facility] [address] [place] [address] Dr. Ashwin Key SPEC GRAVITY 1.020 Normal 1.005-<=1.025 [facility] Comment on above: Performed By: #### U A #### [facility] [address] [address] [address] Ashwin Key UA PROTEIN Negative Normal NEGATIVE/ TRACE [facility] Comment on above: Performed By: #### U A #### [facility] [address] [place], [place] [address] Dr. Ashwin Key Urobilinogen Qn (U) 1.0 {Mercedes'U}/dL Normal 0.2 - 1. 0 [facility] Comment on above: Performed By: #### U A #### [facility] [address] [address] [address] Ashwin Alvarez (Potassium)on 01-30-2017 Potassium molar conc 4.2 mmol/L Normal 3.7-5.3 [facility] Comment on above: Result Comment: Perf ormed at [address] [place], [place] [id number] [phone] Performed By: #### K ####[address] , [place] [id number] Encounters Encounter Date Encounter Type Care Provider [...] BEE Payers Date Payer Category Payer Medicare [id number] 1960 Medicaid [id number] 1960 Medicare [id number] 1945 Unknown [id number] 2.16.84 [id number] 1945 Unknown [id number] [id number] [id number] 1945 Unknown [id number] [id number] [id number] 1944 Unknown [id number] 2.16.84 [id number] 1944 Unknown [id number] 2.16.84 [id number] Summary Purpose Family History No Family History Records FoundNo Family History Records Found Advance Directives No Advanced Directives Records FoundNo Advanced Directives Records Found Additional Source Comments INFORMATION SOURCE (unrecogn ized section and content) DATE CREATED AUTHOR 11/08/2017 [facility] DATE CREATED AUTHOR AUTHOR'S HARJINDER ATMARCOS 09/09/2022 [facility] FOR RECORDS PERTAINING TO PATIENTS [...] BE BASED ON THE PRIMARY CLINICAL RECORDS. [facility] [employer] provides no warranty or guarantee of the accuracy or completeness of information in this document.
[2023-07-10 08:24] LABS: Anion Gap 7.3; BUN Creatinine Ratio 29.3; Calcium 7.9 mg/dL (8.5-10.1); Carbon Dioxide 32.1 mmol/L (21.0-32.0); Chloride 107 mmol/L (98-107); Estimated GFR (African America >60 (>=60); Estimated GFR (Non-African Ame 54 (>=60); Glucose 71 mg/dL (74-106); Potassium 4.4 mmol/L (3.5-5.1); Sodium 142 mmol/L (136-145)
[2023-07-10 08:25] LABS: Basophils Percent Auto 0.7 % (0.2-2.0); Hematocrit 38.3 % (36.0-48.0); Hemoglobin 11.3 g/dL (12.0-16.0); Immature Granulocytes Abs Auto 0.01 10^3/uL (0.00-0.03); Immature Granulocytes Pct Auto 0.2 % (0.0-0.5); Lymphocytes Absolute Auto 2.2 10^3/uL (1.2-3.8); Lymphocytes Percent Auto 47.4 % (20.5-60.0); Mean Corpuscular HGB Conc 29.5 g/dL (29.9-35.2); Mean Corpuscular Hemoglobin 29.1 pg (26.7-34.0); Mean Corpuscular Volume 98.7 fL (81.0-99.0); Mean Platelet Volume 10.9 fL (9.5-13.5); Monocytes Absolute Auto 0.4 10^3/uL (0.3-0.8); Monocytes Percent Auto 7.7 % (1.7-12.0); Platelet Count 143 10^3/uL (150-450); Red Blood Count 3.88 10^6/uL (4.20-5.40); Red Cell Distribution Width 14.4 % (11.0-15.0); White Blood Count 4.6 10^3/uL (4.0-11.0)
== END 2023-07-10 00:59 | disposition home or self-care (01) ==
LOC: LAB 00:58
PROVIDERS: PCP Family Medicine; Visit Provider Family Medicine
DX: I50.43 Acute on chronic combined systolic (congestive) and diastolic (congestive) heart failure (principal); D64.9 Anemia, unspecified; N19 Unspecified kidney failure
CPT/HCPCS: 36415; 80048; 85025

== ENCOUNTER 2023-07-24 01:17 | Outpatient (REF) | payer MEDICARE, MEDICAID, SELFPAY ==
--- OUTSIDE RECORDS SUMMARY | 2023-07-24 01:21 | XMS_ITS | CCD ---
Author Name Unknown Address [address] [place] [address] [id number] [place] [address] Organization [facility] Care Team Providers Care Director Of Community Services Name Role Phone NEPTALI VILLALTA Unavailable Unavailabl [...] D, 25-Hydroxy 35.9 ng/mL Normal 30.0-100.0 [facility] Comment on above: Result Comment: Jadyn min D deficiency has been defined by the [place] [employer] and an Endocrine Society practice guideline as a level of serum 25-OH vitamin D less than 20 ng/mL (1,2). The Endocrine Society went on to further define vitamin D insufficiency as a level between 21 and 29 ng/mL (2). 1. IOM ([place] [employer]). 2010. Dietary reference intakes for calcium and D. [place]: The National Academies Press. 2. Yamilex MF, Florecita CAMP, MalaBronson OTTO et al. Evaluation, treatment, and prevention of vitamin D deficiency: an Endocrine Society clinical practice guideline. JCEM. 2010; 96(7):1911-30. Performed By: #### V ITADLC #### [facility] [address] [place] [address] Dr. Ashwin Key CBC AUTO DIFFon 08-22-2022 BASO # 0.0 103/ul Normal 0.0-0.1 [facility] Comment on above: Performed By: #### C BC #### [facility] [address] [place] [address] Dr. Ashwin Key Basophils/100 WBC (Bld) 0.5 % Normal 0.2-2.0 [facility] Comment on above: Performed By: #### C BC #### [facility] [address] [place] [address] Dr. Ashwin Key EO # 0.0 103/ul Normal 0.0-0.7 [facility] Comment on above: Performed By: #### C BC #### [facility] [address] [place] [address] Dr. Ashwin Key Eosinophils/100 WBC (Bld) 0.0 % Critically low 0.9-7.0 [facility] Comment on above: Performed By: #### C BC #### [facility] [address] [place] [address] Dr. Ashwin Key Erythrocyte distribution width (RBC) [Ratio] 14.7 % Normal 11.0-15.0 [facility] Comment on above: Performed By: #### C BC #### [facility] [address] [place] [address] Dr. Ashwin Key Hematocrit (Bld) [Volume fraction] 38.0 % Normal 36.0-48.0 [facility] Comment on above: Performed By: #### C BC #### [facility] [address] [place] [address] Dr. Ashwin Key Hemoglobin (Bld) [Mass/Vol] 11.5 g/dL Critically low 12.0-16.0 [facility] Comment on above: Performed By: #### C BC #### [facility] [address] [place] [address] Dr. Ashwin Key IG # 0.01 10e3/ul Normal 0.00-0.03 [facility] Comment on above: Performed By: #### C BC #### [facility] [address] [place] [address] Dr. Ashwin Key IG % 0.2 % Normal 0.0-0.5 [facility] Comment on above: Performed By: #### C BC #### [facility] [address] [place] [address] Dr. Ashwin Key LYMPH # 2.1 103/ul Normal 1.2-3.8 [facility] Comment on above: Performed By: #### C BC #### [facility] [address] [place] [address] Dr. Ashwin Key Lymphocytes/100 WBC (Bld) 48.4 % Normal 20.5-60.0 [facility] Comment on above: Performed By: #### C BC #### [facility] [address] [place] [address] Dr. Ashwin Key MANUAL DIFF REQ NO Normal [facility] Comment on above: Performed By: #### C BC #### [facility] [address] [place] [address] Dr. Ashwin Key MCH (RBC) [Entitic mass] 28.8 pg Normal 26.7-34.0 [facility] Comment on above: Performed By: #### C BC #### [facility] [address] [place] [address] Dr. Ashwin Key MCHC (RBC) [Mass/Vol] 30.3 g/dL Normal 29.9-35.2 [facility] Comment on above: Performed By: #### C BC #### [facility] [address] [place] [address] Dr. Ashwin Key MCV (RBC) [Entitic vol] 95.0 fL Normal 81.0-99.0 [facility] Comment on above: Performed By: #### C BC #### [facility] [address] [place], [place] [id number] Dr. Ashwin Key MONO # 0.4 103/ul Normal 0.3-0.8 [facility] Comment on above: Performed By: #### C BC #### [facility] [address] [place] [address] Dr. Ashwin Key Monocytes/100 WBC (Bld) 9.3 % Normal 1.7-12.0 [facility] Comment on above: Performed By: #### C BC #### [facility] [address] [place] [address] Dr. Ashwin Key NEUT # 1.8 103/ul Normal 1.4-6.5 [facility] Comment on above: Performed By: #### C BC #### [facility] [address] [place] [address] Dr. Ashwni Key Neutrophils/100 WBC (Bld) 41.6 % Critically low 43.0-75.0 [facility] Comment on above: Performed By: #### C BC #### [facility] [address] [place] [address] Dr. Ashwin Key Platelet mean volume (Bld) [Entitic vol] 10.3 fL Normal 9.5-13.5 [facility] Comment on above: Performed By: #### C BC #### [facility] [address] [place] [address] Dr. Ashwin Key PLT 166 103/ul Normal 150-450 [facility] Comment on above: Performed By: #### C BC #### [facility] [address] [place] [address] Dr. Ahswin Key RBC 4.00 106/ul Critically low 4.20-5.40 [facility] Comment on above: Performed By: #### C BC #### [facility] [address] [place] [address] Dr. Ashwin Key WBC 4.4 103/ul Normal 4.0-11.0 [facility] Comment on above: Performed By: #### C BC #### [facility] [address] [place] [address] Dr. Ashwin Key GLYCOHEMOGLOBIN A1Con 2022 ADA RECOMMENDATION SEE BELOW Normal [facility] Comment on above: Result Comment: ADA RECOMMENDED LIMIT 4.0 - 6.0 ADA THERAPEUTIC TARGET < 7.0 ACTION SUGGESTED > 7.0 Performed By: #### A 1C #### [facility] [address] [address] [address] Ashwin Key Glucose [Mass/Vol] 105 mg/dL Normal [facility] Comment on above: Performed By: #### A 1C #### [facility] [address] [address] [address] Ashwin Key HbA1c (Bld) [Mass fraction] 5.3 % Normal 4.5-6.2 [facility] Comment on above: Performed By: #### A 1C #### [facility] [address] [place] [address] Dr. Ashwin Key LIPID PROFILEon 08-22-2022 CHOL-HDL RATIO NORM SEE BELOW Normal [facility] Comment on above: Result Comment: 3.3 - 4.4 LOW RISK 4.4 - 7.1 AVERAGE RISK 7.1 - 11.0 MODERATE RISK >11.0 HIGH RISK Performed By: #### U ACSJAZMIN UMICRO #### [facility] [address] [place] [address] Dr. Ashwin Key Cholesterol [Mass/Vol] 103 mg/dL Normal <=200 [facility] Comment on above: Performed By: #### U ACSJAZMIN UMICRO #### [facility] [address] [address] [address] Ashwin Key Cholesterol in HDL [Mass/Vol] 40 mg/dL Normal 40-60 [facility] Comment on above: Performed By: #### U ACSJAZMIN UMICRO #### [facility] [address] [address] [address] Ashwin Key Cholesterol in LDL [Mass/Vol] 51.8 mg/dL Normal [facility] Comment on above: Performed By: #### U ACSJAZMIN UMICRO #### [facility] [address] [address] [address] Ashwin Key Cholesterol.total/Cho lesterol in HDL [Mass ratio] 2.6 {ratio} Normal [facility] Comment on above: Performed By: #### U ACSJAZMIN UMICRO #### [facility] [address] [address] [address] Ashwin Key HDL NORMAL > or = 60 mg/dl - LOW CARDIOVASCULAR RISK <40 mg/dl - HIGH CARDIOVASCULAR RISK Normal [facility] Comment on above: Performed By: #### U ACSJAZMIN, UMICRO #### [facility] [address] [address] [address] Ashwin Key LDL CALC NORMAL SEE BELOW Normal [facility] Comment on above: Result Comment: <100 mg/dl OPTIMAL 100 - 129 mg/dl NEAR OR ABOVE OPTIMAL 130 - 159 mg/dl BORDERLINE HIGH 160 - 189 mg/dl HIGH >190 mg/dl VERY HIGH Performed By: #### U ACSJAZMIN, UMICRO #### [facility] [address] [address] [address] Ashwin Key Triglyceride [Mass/Vol] 56 mg/dL Normal <=150 [facility] Comment on above: Performed By: #### U ACSJAZMIN UMICRO #### [facility] [address] [address] [address] Ashwin Key VLDL CALC 11.2 mg/dL Normal [facility] Comment on above: Performed By: #### U ACSJAZMIN, UMICRO #### [facility] [address] [address] [address] Ashwin Key PROF 14(COMP METB)on 023 Albumin [Mass/Vol] 2.5 g/dL Critically low 3.4-5.0 Th e [facility] Comment on above: Performed By: #### U ACSJAZMIN, UMICRO #### [facility] [address] [address] [address] Ashwin Key Albumin/Globulin [Mass ratio] 0.7 {ratio} Normal [facility] Comment on above: Performed By: #### U ACSJAZMIN, UMICRO #### [facility] [address] [address] [address] Ashwin Key ALP [Catalytic activity/Vol] 110 U/L Normal 46-116 [facility] Comment on above: Performed By: #### U ACSJAZMIN UMICRO #### [facility] [address] [place] [address] Dr. Ashwin Key ALT [Catalytic activity/Vol] 16 U/L Normal 14-59 [facility] Comment on above: Performed By: #### U FILOMENA UMICRO #### [facility] [address] [place] [address] Dr. Ashwin Key Anion gap [Moles/Vol] 9.8 mmol/L Normal [facility] Comment on above: Performed By: #### U ACSJAZMIN UMICRO #### [facility] [address] [place] [address] Dr. Ashwin Key AST [Catalytic activity/Vol] 13 U/L Critically low 15-37 [facility] Comment on above: Performed By: #### Lisseth BUTT UMICRO #### [facility] [address] [place] [address] Dr. Ashwin Key Bilirubin [Mass/Vol] 0.4 mg/dL Normal 0.2-1.0 [facility] Comment on above: Performed By: #### GURVINDER DIEGOICRO #### [facility] [address] [place] [address] Dr. Ashwin Key Calcium [Mass/Vol] 8.5 mg/dL Normal 8.5-10.1 [facility] Comment on above: Performed By: #### U FILOMENA UMICRO #### [facility] [address] [place] [address] Dr. Ashwin Key Chloride [Moles/Vol] 108 mmol/L Critically high 98-107 [facility] Comment on above: Performed By: #### U ACSJAZMIN UMICRO #### [facility] [address] [place] [address] Dr. Ashwin Key CO2 [Moles/Vol] 31.0 mmol/L Normal 21.0-32.0 [facility] Comment on above: Performed By: #### U FILOMENA UMICRO #### [facility] [address] [address] [address] Ashwin Key Creatinine [Mass/Vol] 0.91 mg/dL Normal 0.55-1.02 [facility] Comment on above: Performed By: #### U ACSJAZMIN, UMICRO #### [facility] [address] [address] [address] Ashwin Key EGFR-AF SINGAPOREAN >60 Normal >=60 [facility] Comment on above: Performed By: #### U ACSJAZMIN, UMICRO #### [facility] [address] [address] [address] Ashwin Key EGFR-NON AF [place]OREAN 60 mL/min/1.73m2 Normal >=60 [facility] Comment on above: Performed By: #### U ACSJAZMIN, UMICRO #### [facility] [address] [place] [address] Dr. Ashwin Key Globulin (S) [Mass/Vol] 3.5 g/dL Normal [facility] Comment on above: Performed By: #### U ACSJAZMIN, UMICRO #### [facility] [address] [address] [address] Ashwin Key Glucose [Mass/Vol] 99 mg/dL Normal 74-106 [facility] Comment on above: Performed By: #### U ACSJAZMIN, UMICRO #### [facility] [address] [place] [address] Dr. Ashwin Key Potassium [Moles/Vol] 3.8 mmol/L Normal 3.5-5.1 [facility] Comment on above: Performed By: #### U ACSJAZMIN, UMICRO #### [facility] [address] [address] [address] Ashwin Key Protein [Mass/Vol] 6.0 g/dL Critically low 6.4-8.2 [facility] Comment on above: Performed By: #### U ACSIND, UMICRO #### [facility] [address] [address] [address] Ashwin Key Sodium [Moles/Vol] 145 mmol/L Normal 136-145 [facility] Comment on above: Performed By: #### U ACSJAZMIN UMICRO #### [facility] [address] [place] [address] Dr. Ashwin Key Urea nitrogen [Mass/Vol] 24.0 mg/dL Critically high 7.0-18.0 [facility] Comment on above: Performed By: #### U ACSJAZMIN UMICRO #### [facility] [address] [place] [address] Dr. Ashwin Key Urea nitrogen/Creatinine [Mass ratio] 26.4 mg/mg Normal [facility] Comment on above: Performed By: #### U ACSGURVINDER WUICRO #### [facility] [address] [place] [address] Dr. Ashwin Key TSHon 08-22-2022 TSH 5.573 uIU/mL Critically high 0.358-3.740 [facility] Comment on above: Performed By: #### U GURVINDER BUTTICRO #### [facility] [address] [place] [address] Dr. Ashwin Key CBC AUTO DIFFon 08-10-2022 BASO # 0.0 103/ul Normal 0.0-0.1 [facility] Comment on above: Performed By: #### C BC #### [facility] [address] [place] [address] Dr. Ashwin Key Basophils/100 WBC (Bld) 0.7 % Normal 0.2-2.0 [facility] Comment on above: Performed By: #### C BC #### [facility] [address] [place] [address] Dr. Ashwin Key EO # 0.0 103/ul Normal 0.0-0.7 [facility] Comment on above: Performed By: #### C BC #### [facility] [address] [place] [address] Dr. Ashwin Key Eosinophils/100 WBC (Bld) 0.0 % Critically low 0.9-7.0 [facility] Comment on above: Performed By: #### C BC #### [facility] [address] [place] [address] Dr. Ashwin Key Erythrocyte distribution width (RBC) [Ratio] 15.1 % Critically high 11.0-15.0 [facility] Comment on above: Performed By: #### C BC #### [facility] [address] [place] [address] Dr. Ashwin Key Hematocrit (Bld) [Volume fraction] 38.0 % Normal 36.0-48.0 [facility] Comment on above: Performed By: #### C BC #### [facility] [address] [place] [address] Dr. Ashwin Key Hemoglobin (Bld) [Mass/Vol] 11.4 g/dL Critically low 12.0-16.0 [facility] Comment on above: Performed By: #### C BC #### [facility] [address] [place] [address] Dr. Ashwin Key IG # 0.02 10e3/ul Normal 0.00-0.03 [facility] Comment on above: Performed By: #### C BC #### [facility] [address] [place] [address] Dr. Ashwin Key IG % 0.5 % Normal 0.0-0.5 [facility] Comment on above: Performed By: #### C BC #### [facility] [address] [place] [address] Dr. Ashwin Key LYMPH # 2.1 103/ul Normal 1.2-3.8 [facility] Comment on above: Performed By: #### C BC #### [facility] [address] [place] [address] Dr. Ashwin Key Lymphocytes/100 WBC (Bld) 48.4 % Normal 20.5-60.0 [facility] Comment on above: Performed By: #### C BC #### [facility] [address] [place] [address] Dr. Ashwin Key MANUAL DIFF REQ NO Normal [facility] Comment on above: Performed By: #### C BC #### [facility] [address] [place] [address] Dr. Ashwin Key MCH (RBC) [Entitic mass] 28.8 pg Normal 26.7-34.0 [facility] Comment on above: Performed By: #### C BC #### [facility] [address] [place] [address] Dr. Ashwin Key MCHC (RBC) [Mass/Vol] 30.0 g/dL Normal 29.9-35.2 [facility] Comment on above: Performed By: #### C BC #### [facility] [address] [place] [address] Dr. Ashwin Key MCV (RBC) [Entitic vol] 96.0 fL Normal 81.0-99.0 [facility] Comment on above: Performed By: #### C BC #### [facility] [address] [place] [address] Dr. Ashwin Key MONO # 0.3 103/ul Normal 0.3-0.8 [facility] Comment on above: Performed By: #### C BC #### [facility] [address] [place] [address] Dr. Ashwin Key Monocytes/100 WBC (Bld) 7.7 % Normal 1.7-12.0 [facility] Comment on above: Performed By: #### C BC #### [facility] [address] [place] [address] Dr. Ashwin Kye NEUT # 1.8 103/ul Normal 1.4-6.5 [facility] Comment on above: Performed By: #### C BC #### [facility] [address] [place] [address] Dr. Ashwin Key Neutrophils/100 WBC (Bld) 42.7 % Critically low 43.0-75.0 [facility] Comment on above: Performed By: #### C BC #### [facility] [address] [place] [address] Dr. Ashwin Key Platelet mean volume (Bld) [Entitic vol] 10.1 fL Normal 9.5-13.5 [facility] Comment on above: Performed By: #### C BC #### [facility] [address] [place] [address] Dr. Ashwin Key PLT 156 103/ul Normal 150-450 [facility] Comment on above: Performed By: #### C BC #### [facility] [address] [address] [address] Ashwin Key RBC 3.96 106/ul Critically low 4.20-5.40 [facility] Comment on above: Performed By: #### C BC #### [facility] [address] [address] [address] Ashwin Key WBC 4.3 103/ul Normal 4.0-11.0 [facility] Comment on above: Performed By: #### C BC #### [facility] [address] [address] [address] Ashwin Key PROF CHEM 8 (BAS METB)on Anion gap [Moles/Vol] 13.3 mmol/L Normal [facility] Comment on above: Performed By: #### U JOEY UBTTRO #### [facility] [address] [place] [address] Dr. Ashwin Key Calcium [Mass/Vol] 8.3 mg/dL Critically low 8.5-10.1 [facility] Comment on above: Performed By: #### JUAN F DIEGO #### [facility] [address] [place] [address] Dr. Ashwin Key Chloride [Moles/Vol] 111 mmol/L Critically high 98-107 [facility] Comment on above: Performed By: #### U JOEY BUTTRO #### [facility] [address] [place] [address] Dr. Ashwin Key CO2 [Moles/Vol] 29.9 mmol/L Normal 21.0-32.0 [facility] Comment on above: Performed By: #### U JOEY BUTTRO #### [facility] [address] [place] [address] Dr. Ashwin Key Creatinine [Mass/Vol] 0.92 mg/dL Normal 0.55-1.02 [facility] Comment on above: Performed By: #### U JOEY BUTTRO #### [facility] [address] [address] [address] Ashwin Key EGFR-AF [place] >60 Normal >=60 [facility] Comment on above: Performed By: #### U FILOMENA UMICRO #### [facility] [address] [address] [address] Ashwin Key EGFR-NON AF [place] 59 mL/min/1.73m2 Critically low >=60 [facility] Comment on above: Performed By: #### U FILOMENA UMICRO #### [facility] [address] [address] [address] Ashwin Key Glucose [Mass/Vol] 84 mg/dL Normal 74-106 [facility] Comment on above: Performed By: #### U ACSJAZMIN UMICRO #### [facility] [address] [place] [address] Dr. Ashwin Key Potassium [Moles/Vol] 4.2 mmol/L Normal 3.5-5.1 [facility] Comment on above: Performed By: #### U FILOMENA UMICRO #### [facility] [address] [address] [address] Ashwin Key Sodium [Moles/Vol] 150 mmol/L Critically high 136-145 [facility] Comment on above: Performed By: #### U FILOMENA UMICRO #### [facility] [facility] [address] [place] [address] Dr. Ashwin Key Urea nitrogen [Mass/Vol] 25.0 mg/dL Critically high 7.0-18.0 [facility] Comment on above: Performed By: #### U ACSJAZMIN UMICRO #### [facility] [address] [address] [address] Ashwin Key Urea nitrogen/Creatinine [Mass ratio] 27.2 mg/mg Normal [facility] Comment on above: Performed By: #### U FILOMENA, UMICRO #### [facility] [address] [address] [address] Ashwin Key TSHon 08-10-2022 TSH 3.430 uIU/mL Normal 0.358-3.740 [facility] Comment on above: Performed By: #### U ACSIND, UMICRO #### [facility] [address] [address] [address] Ashwin Key CULTURE URINEon 08-09-2022 CULTURE URINE Culture Observations: ANSON TO FOLLOW. Normal [facility] Comment on above: Performed By: #### U ACSIND, UMICRO #### [facility] [address] [address] [address] Ashwin Key UA (CLEAN/CATCH) CORK MIXER/MICRO I F IND.on 08-09-2022 Bilirubin Ql (U) Negative Normal NEGATIVE [facility] Comment on above: Performed By: #### U ACSIND, UMICRO #### [facility] [address] [address] [address] Ashwin Key Clarity (U) CLEAR Normal CLEAR [facility] Comment on above: Performed By: #### U ACSIND, UMICRO #### [facility] [address] [address] [address] Aswhin Key Color (U) LT. YELLOW Normal YELLOW [facility] Comment on above: Performed By: #### U ACSIND, UMICRO #### [facility] [address] [address] [address] Ashwin Key Glucose Ql (U) Negative Normal NEGATIVE [facility] Comment on above: Performed By: #### U ACSIND, UMICRO #### [facility] [address] [address] [address] Ashwin Key Hemoglobin Ql (U) TRACE-INTACT Abnormal NEGATIVE [facility] Comment on above: Performed By: #### U ACSIND, UMICRO #### [facility] [address] [address] [address] Ashwin Key Ketones Ql (U) Negative Normal NEGATIVE [facility] Comment on above: Performed By: #### U ACSIND, UMICRO #### [facility] [address] [address] [address] Ashwin Key LEUKOCYTES TRACE Abnormal NEGATIVE [facility] Comment on above: Performed By: #### U ACSIND, UMICRO #### [facility] [address] [address] [address] Ashwin Key Nitrite Ql (U) Negative Normal NEGATIVE [facility] Comment on above: Performed By: #### U ACSJAZMIN UMICRO #### [facility] [address] [address] [address] Ashwin Key pH (U) 5.5 [pH] Normal 5-9 [facility] Comment on above: Performed By: #### U ACSGURVINDER WUICRO #### [facility] [address] [address] [address] Ashwin Key SPEC GRAVITY <=1.005 Abnormal 1.005-<=1.025 [facility] Comment on above: Performed By: #### U FILOMENA UMICRO #### [facility] [address] [address] [address] Ashwin Key UA PROTEIN Negative Normal NEGATIVE/ TRACE [facility] Comment on above: Performed By: #### U JOEY BUTTRO #### [facility] [address] [place] [address] Dr. Ashwin Key UR MICRO IND INDICATED Normal [facility] Comment on above: Performed By: #### U JOEY BUTTRO #### [facility] [address] [address] [address] Ashwin Key Urobilinogen Qn (U) 0.2 {Mercedes'U}/dL Normal 0.2 - 1. 0 [facility] Comment on above: Performed By: #### U FILOMENA UMICRO #### [facility] [address] [place] [address] Dr. Ashwin Key URINE MICROSCOPIC ONLYon AMORPHOUS CRYSTALS FEW Normal [facility] Comment on above: Performed By: #### U ACSJAZMIN UMICRO #### [facility] [address] [place] [address] Dr. Ashwin Key BACTERIA MODERATE Abnormal NONE SEEN [facility] Comment on above: Performed By: #### U JOEY BUTTRO #### [facility] [address] [address] [address] Ashwin Key Bacteria identified Cx Nom (U) INDICATED Normal [facility] Comment on above: Performed By: #### U ACSIND, UMICRO #### [facility] [address] [place] [address] Dr. Ashwin Key CAST NONE SEEN Normal NONE SEEN [facility] Comment on above: Performed By: #### U ACSIND, UMICRO #### [facility] [address] [place] [address] Dr. Ashwin Key Crystals LM Nom (Urine sed) SEEN Abnormal NONE SEEN [facility] Comment on above: Performed By: #### U ACSIND, UMICRO #### [facility] [address] [place] [address] Dr. Ashwin Key Epithelial cells LM Ql (Urine sed) MANY Abnormal NONE SEEN /RARE [facility] Comment on above: Performed By: #### U ACSIND, UMICRO #### [facility] [address] [place] [address] Dr. Ashwin Key MUCOUS NONE SEEN Normal NONE SEEN [facility] Comment on above: Performed By: #### U ACSIND, UMICRO #### [facility] [address] [place] [address] Dr. Ashwin Key RBC 0-2 Normal 0-2 [facility] Comment on above: Performed By: #### U ACSIND, UMICRO #### [facility] [address] [place] [address] Dr. Ashwin Key WBC 2-5 Abnormal NONE SEEN The [facility] Comment on above: Performed By: #### U ACSIND, UMICRO #### [facility] [address] [place] [address] Dr. Ashwin Key CBC AUTO DIFFon 07-11-2022 BASO # 0.0 103/ul Normal 0.0-0.1 [facility] Comment on above: Performed By: #### C BC #### [facility] [address] [place] [address] Dr. Ashwin Key Basophils/100 WBC (Bld) 0.5 % Normal 0.2-2.0 [facility] Comment on above: Performed By: #### C BC #### [facility] [address] [place] [address] Dr. Ashwin Key EO # 0.0 103/ul Normal 0.0-0.7 [facility] Comment on above: Performed By: #### C BC #### [facility] [address] [place] [address] Dr. Ashwin Key Eosinophils/100 WBC (Bld) 0.0 % Critically low 0.9-7.0 [facility] Comment on above: Performed By: #### C BC #### [facility] [address] [place] [address] Dr. Ashwin Key Erythrocyte distribution width (RBC) [Ratio] 14.5 % Normal 11.0-15.0 [facility] Comment on above: Performed By: #### C BC #### [facility] [address] [place] [address] Dr. Ashwin Key Hematocrit (Bld) [Volume fraction] 42.5 % Normal 36.0-48.0 [facility] Comment on above: Performed By: #### C BC #### [facility] [address] [place] [address] Dr. Ashwin Key Hemoglobin (Bld) [Mass/Vol] 13.1 g/dL Normal 12.0-16.0 [facility] Comment on above: Performed By: #### C BC #### [facility] [address] [place] [address] Dr. Ashwin Key IG # 0.02 10e3/ul Normal 0.00-0.03 [facility] Comment on above: Performed By: #### C BC #### [facility] [address] [place] [address] Dr. Ashwin Key IG % 0.5 % Normal 0.0-0.5 [facility] Comment on above: Performed By: #### C BC #### [facility] [address] [place] [address] Dr. Ashwin Key LYMPH # 2.1 103/ul Normal 1.2-3.8 [facility] Comment on above: Performed By: #### C BC #### [facility] [address] [place] [address] Dr. Ashwin Key Lymphocytes/100 WBC (Bld) 48.2 % Normal 20.5-60.0 [facility] Comment on above: Performed By: #### C BC #### [facility] [address] [place] [address] Dr. Ashwin Key MANUAL DIFF REQ NO Normal [facility] Comment on above: Performed By: #### C BC #### [facility] [address] [place] [address] Dr. Ashwin Key MCH (RBC) [Entitic mass] 28.4 pg Normal 26.7-34.0 [facility] Comment on above: Performed By: #### C BC #### [facility] [address] [place] [address] Dr. Ashwin Key MCHC (RBC) [Mass/Vol] 30.8 g/dL Normal 29.9-35.2 [facility] Comment on above: Performed By: #### C BC #### [facility] [address] [place] [address] Dr. Ashwin Key MCV (RBC) [Entitic vol] 92.2 fL Normal 81.0-99.0 [facility] Comment on above: Performed By: #### C BC #### [facility] [address] [place] [address] Dr. Ashwin Key MONO # 0.4 103/ul Normal 0.3-0.8 [facility] Comment on above: Performed By: #### C BC #### [facility] [address] [place] [address] Dr. Ashwin Key Monocytes/100 WBC (Bld) 8.7 % Normal 1.7-12.0 [facility] Comment on above: Performed By: #### C BC #### [facility] [address] [place] [address] Dr. Ashwin Key NEUT # 1.8 103/ul Normal 1.4-6.5 [facility] Comment on above: Performed By: #### C BC #### [facility] [address] [address] [address] Ashwin Key Neutrophils/100 WBC (Bld) 42.1 % Critically low 43.0-75.0 [facility] Comment on above: Performed By: #### C BC #### [facility] [address] [address] [address] Ashwin Key Platelet mean volume (Bld) [Entitic vol] 10.4 fL Normal 9.5-13.5 [facility] Comment on above: Performed By: #### C BC #### [facility] [address] [address] [address] Ashwin Key PLT 159 103/ul Normal 150-450 [facility] Comment on above: Performed By: #### C BC #### [facility] [address] [place] [address] Dr. Ashwin Key RBC 4.61 106/ul Normal 4.20-5.40 [facility] Comment on above: Performed By: #### C BC #### [facility] [address] [place] [address] Dr. Ashwin Key WBC 4.3 103/ul Normal 4.0-11.0 [facility] Comment on above: Performed By: #### C BC #### [facility] [address] [place] [address] Dr. Ashwin Key PROF CHEM 8 (BAS METB)on Anion gap [Moles/Vol] 10.2 mmol/L Normal [facility] Comment on above: Performed By: #### B MP #### [facility] [address] [place] [address] Dr. Ashwin Key Calcium [Mass/Vol] 8.5 mg/dL Normal 8.5-10.1 [facility] Comment on above: Performed By: #### B MP #### [facility] [address] [place] [address] Dr. Aswhin Key Chloride [Moles/Vol] 104 mmol/L Normal 98-107 [facility] Comment on above: Performed By: #### B MP #### [facility] [address] [address] [address] Ashwin Key CO2 [Moles/Vol] 32.6 mmol/L Critically high 21.0-32.0 [facility] Comment on above: Performed By: #### B MP #### [facility] [address] [address] [address] Ashwin Key Creatinine [Mass/Vol] 0.91 mg/dL Normal 0.55-1.02 [facility] Comment on above: Performed By: #### B MP #### [facility] [address] [address] [address] Ashwin Key EGFR-AF SINGAPOREAN >60 Normal >=60 [facility] Comment on above: Performed By: #### B MP #### [facility] [address] [place] [address] Dr. Ashwin Key EGFR-NON AF SINGAPOREAN =60 Normal >=60 [facility] Comment on above: Performed By: #### B MP #### [facility] [address] [address] [address] Ashwin Key Glucose [Mass/Vol] 89 mg/dL Normal 74-106 [facility] Comment on above: Performed By: #### B MP #### [facility] [address] [address] [address] Ashwin Key Potassium [Moles/Vol] 3.8 mmol/L Normal 3.5-5.1 [facility] Comment on above: Performed By: #### B MP #### [facility] [address] [address] [address] Ashwin Key Sodium [Moles/Vol] 143 mmol/L Normal 136-145 [facility] Comment on above: Performed By: #### B MP #### [facility] [address] [address] [address] Ashwin Key Urea nitrogen [Mass/Vol] 26.0 mg/dL Critically high 7.0-18.0 [facility] Comment on above: Performed By: #### B MP #### [facility] [address] [address] [address] Ashwin Key Urea nitrogen/Creatinine [Mass ratio] 28.6 mg/mg Normal [facility] Comment on above: Performed By: #### B MP #### [facility] [address] [place] [address] Dr. Ashwin Key CULTURE URINEon 02-11-2022 CULTURE [...] Trimethoprim/Sulfame thoxazole <=20 S F Normal [facility] Comment on above: Performed By: #### U ACSJOEY WURO #### [facility] [address] [place] [address] Dr. Ashwin Key CBC AUTO DIFFon 02-07-2022 BASO # 0.0 103/ul Normal 0.0-0.1 [facility] Comment on above: Performed By: #### C BC #### [facility] [address] [place] [address] Dr. Ashwin Key Basophils/100 WBC (Bld) 0.5 % Normal 0.2-2.0 [facility] Comment on above: Performed By: #### C BC #### [facility] [address] [place] [address] Dr. Ashwin Key EO # 0.0 103/ul Normal 0.0-0.7 [facility] Comment on above: Performed By: #### C BC #### [facility] [address] [place] [address] Dr. Ashwin Key Eosinophils/100 WBC (Bld) 0.0 % Critically low 0.9-7.0 [facility] Comment on above: Performed By: #### C BC #### [facility] [address] [place] [address] Dr. Ashwin Key Erythrocyte distribution width (RBC) [Ratio] 13.4 % Normal 11.0-15.0 [facility] Comment on above: Performed By: #### C BC #### [facility] [address] [place] [address] Dr. Ashwin Key Hematocrit (Bld) [Volume fraction] 46.8 % Normal 36.0-48.0 [facility] Comment on above: Performed By: #### C BC #### [facility] [address] [place] [address] Dr. Ashwin Key Hemoglobin (Bld) [Mass/Vol] 14.2 g/dL Normal 12.0-16.0 [facility] Comment on above: Performed By: #### C BC #### [facility] [address] [place] [address] Dr. Ashwin Key IG # 0.05 10e3/ul Critically high 0.00-0.03 [facility] Comment on above: Performed By: #### C BC #### [facility] [address] [place] [address] Dr. Ashwin Key IG % 0.6 % Critically high 0.0-0.5 [facility] Comment on above: Performed By: #### C BC #### [facility] [address] [place] [address] Dr. Ashwin Key LYMPH # 2.0 103/ul Normal 1.2-3.8 [facility] Comment on above: Performed By: #### C BC #### [facility] [address] [place] [address] Dr. Ashwin Key Lymphocytes/100 WBC (Bld) 22.9 % Normal 20.5-60.0 [facility] Comment on above: Performed By: #### C BC #### [facility] [address] [place] [address] Dr. Ashwin Key MANUAL DIFF REQ NO Normal [facility] Comment on above: Performed By: #### C BC #### [facility] [address] [place] [address] Dr. Ashwin Key MCH (RBC) [Entitic mass] 29.1 pg Normal 26.7-34.0 [facility] Comment on above: Performed By: #### C BC #### [facility] [address] [address] [address] Ashwin Key MCHC (RBC) [Mass/Vol] 30.3 g/dL Normal 29.9-35.2 [facility] Comment on above: Performed By: #### C BC #### [facility] [address] [place] [address] Dr. Ashwin Key MCV (RBC) [Entitic vol] 95.9 fL Normal 81.0-99.0 [facility] Comment on above: Performed By: #### C BC #### [facility] [address] [place] [address] Dr. Ashwin Key MONO # 0.9 103/ul Critically high 0.3-0.8 [facility] Comment on above: Performed By: #### C BC #### [facility] [address] [place] [address] Dr. Ashwin Key Monocytes/100 WBC (Bld) 10.9 % Normal 1.7-12.0 [facility] Comment on above: Performed By: #### C BC #### [facility] [address] [place] [address] Dr. Ashwin Key NEUT # 5.6 103/ul Normal 1.4-6.5 [facility] Comment on above: Performed By: #### C BC #### [facility] [address] [place] [address] Dr. Ashwin Key Neutrophils/100 WBC (Bld) 65.1 % Normal 43.0-75.0 [facility] Comment on above: Performed By: #### C BC #### [facility] [address] [place] [address] Dr. Ashwin Key Platelet mean volume (Bld) [Entitic vol] 10.6 fL Normal 9.5-13.5 [facility] Comment on above: Performed By: #### C BC #### [facility] [address] [place] [address] Dr. Ashwin Key PLT 203 103/ul Normal 150-450 [facility] Comment on above: Performed By: #### C BC #### [facility] [address] [place] [address] Dr. Ashwin Key RBC 4.88 106/ul Normal 4.20-5.40 [facility] Comment on above: Performed By: #### C BC #### [facility] [address] [place] [address] Dr. Ashwin Key WBC 8.6 103/ul Normal 4.0-11.0 [facility] Comment on above: Performed By: #### C BC #### [facility] [address] [place] [address] Dr. Ashwin Key PROF 14(COMP METB)on 022 Albumin [Mass/Vol] 3.6 g/dL Normal 3.4-5.0 [facility] Comment on above: Performed By: #### U JOEY BUTTRO #### [facility] [address] [place] [address] Dr. Ashwin Key Albumin/Globulin [Mass ratio] 1.2 {ratio} Normal [facility] Comment on above: Performed By: #### U JOEY BUTTRO #### [facility] [address] [place] [address] Dr. Ashwin Key ALP [Catalytic activity/Vol] 128 U/L Critically high 46-116 [facility] Comment on above: Performed By: #### U JOEY BUTTRO #### [facility] [address] [place] [address] Dr. Ashwin Key ALT [Catalytic activity/Vol] 20 U/L Normal 14-59 [facility] Comment on above: Performed By: #### U JOEY BUTTRO #### [facility] [address] [place] [address] Dr. Ashwin Key Anion gap [Moles/Vol] 12.0 mmol/L Normal [facility] Comment on above: Performed By: #### U JOEY BUTTRO #### [facility] [address] [address] [address] Ashwin Key AST [Catalytic activity/Vol] 18 U/L Normal 15-37 [facility] Comment on above: Performed By: #### U ACSJAZMIN, UMICRO #### [facility] [address] [address] [address] Ashwin Key Bilirubin [Mass/Vol] 0.8 mg/dL Normal 0.2-1.0 [facility] Comment on above: Performed By: #### U ACSIND, UMICRO #### [facility] [address] [address] [address] Ashwin Key Calcium [Mass/Vol] 8.1 mg/dL Critically low 8.5-10.1 [facility] Comment on above: Performed By: #### U ACSIND, UMICRO #### [facility] [address] [address] [address] Ashwin Key Chloride [Moles/Vol] 99 mmol/L Normal 98-107 [facility] Comment on above: Performed By: #### U ACSJAZMIN, UMICRO #### [facility] [address] [address] [address] Ashwin Key CO2 [Moles/Vol] 33.7 mmol/L Critically high 21.0-32.0 [facility] Comment on above: Performed By: #### U ACSJAZMIN, UMICRO #### [facility] [address] [address] [address] Ashwin Key Creatinine [Mass/Vol] 1.07 mg/dL Critically high 0.55-1.02 [facility] Comment on above: Performed By: #### U ACSIND, UMICRO #### [facility] [address] [address] [address] Ashwin Key EGFR-AF [place] 60 mL/min/1.73m2 Normal >=60 [facility] Comment on above: Performed By: #### U ACSIND, UMICRO #### [facility] [address] [address] [address] Ashwin Key EGFR-NON AF [place] 50 mL/min/1.73m2 Critically low >=60 [facility] Comment on above: Performed By: #### U ACSGURVINDER WUICRO #### [facility] [address] [address] [address] Ashwin Key Globulin (S) [Mass/Vol] 3.0 g/dL Normal [facility] Comment on above: Performed By: #### U ACSJAZMIN UMICRO #### [facility] [address] [address] [address] Ashwin Key Glucose [Mass/Vol] 76 mg/dL Normal 74-106 [facility] Comment on above: Performed By: #### U GURVINDER BUTTICRO #### [facility] [address] [place] [address] Dr. Ashwin Key Potassium [Moles/Vol] 4.7 mmol/L Normal 3.5-5.1 [facility] Comment on above: Performed By: #### U GURVINDER BUTTICRO #### [facility] [address] [place] [address] Dr. Ashwin Key Protein [Mass/Vol] 6.6 g/dL Normal 6.4-8.2 [facility] Comment on above: Performed By: #### GURVINDER DIEGOICRO #### [facility] [address] [place] [address] Dr. Ashwin Key Sodium [Moles/Vol] 140 mmol/L Normal 136-145 [facility] Comment on above: Performed By: #### U ACSGURVINDER WUICRO #### [facility] [address] [place] [address] Dr. Ashwin Key Urea nitrogen [Mass/Vol] 31.0 mg/dL Critically high 7.0-18.0 [facility] Comment on above: Performed By: #### U ACSGURVINDER WUICRO #### [facility] [address] [place] [address] Dr. Ashwin Key Urea nitrogen/Creatinine [Mass ratio] 29.0 mg/mg Normal [facility] Comment on above: Performed By: #### U ACSJAZMIN UMICRO #### [facility] [address] [place] [address] Dr. Ashwin Key UA RANDOMon 02-07-2022 Bilirubin Ql (U) Negative Normal NEGATIVE [facility] Comment on above: Performed By: #### U A #### [facility] [address] [place] [address] Dr. Ashwin Key Clarity (U) CLEAR Normal CLEAR [facility] Comment on above: Performed By: #### U A #### [facility] [address] [place] [address] Dr. Ashwin Key Color (U) LT. YELLOW Normal YELLOW [facility] Comment on above: Performed By: #### U A #### [facility] [address] [place] [address] Dr. Ashwin Key Glucose Ql (U) Negative Normal NEGATIVE [facility] Comment on above: Performed By: #### U A #### [facility] [address] [place] [address] Dr. Ashwin Key Hemoglobin Ql (U) Negative Normal NEGATIVE [facility] Comment on above: Performed By: #### U A #### [facility] [address] [place] [address] Dr. Ashwin Key Ketones Ql (U) TRACE Abnormal NEGATIVE [facility] Comment on above: Performed By: #### U A #### [facility] [address] [place] [address] Dr. Ashwin Key LEUKOCYTES SMALL Abnormal NEGATIVE [facility] Comment on above: Performed By: #### U A #### [facility] [address] [place] [address] Dr. Ashwin Key Nitrite Ql (U) Positive Abnormal NEGATIVE [facility] Comment on above: Performed By: #### U A #### [facility] [address] [place] [address] Dr. Ashwin Key pH (U) 6.0 [pH] Normal 5-9 [facility] Comment on above: Performed By: #### U A #### [facility] [address] [place] [address] Dr. Ashwin Key SPEC GRAVITY 1.020 Normal 1.005-<=1.025 [facility] Comment on above: Performed By: #### U A #### [facility] [address] [address] [address] Ashwin Key UA PROTEIN Negative Normal NEGATIVE/ TRACE [facility] Comment on above: Performed By: #### U A #### [facility] [address] [place], [place] [address] Dr. Ashwin Key Urobilinogen Qn (U) 1.0 {Mercedes'U}/dL Normal 0.2 - 1. 0 [facility] Comment on above: Performed By: #### U A #### [facility] [address] [address] [address] Ashwin Alvarez (Potassium)on 01-30-2017 Potassium molar conc 4.2 mmol/L Normal 3.7-5.3 [facility] Comment on above: Result Comment: Perf ormed at [address] [place], [place] [id number] ([phone] Performed By: #### K ####[address] , [place] [id number] Encounters Encounter Date Encounter Type Care Provider Facility Start: 08-22-2022 End: 08-22-[address] PRANAV CMAPOS Facility:[facility] Start: 08-12-2022 End: 08-12-[address] [...] BEE Payers Date Payer Category Payer Medicare [id number] 1960 Medicaid [id number] 1960 Medicare [id number] 1945 Unknown [id number] 2.16.84 [id number] 1945 Unknown [id number] 2.16.84 [id number] 1945 Unknown [id number] 2.16.84 [id number] 1945 Unknown [id number] 2.16.84 [id number] 1945 Unknown [id number] 2.16.84 [id number] Summary Purpose Family History No Family History Records FoundNo Family History Records Found Advance Directives No Advanced Directives Records FoundNo Advanced Directives Records Found Additional Source Comments INFORMATION SOURCE (unrecogn ized section and content) DATE CREATED AUTHOR 11/08/2017 [facility] DATE CREATED AUTHOR AUTHOR'S HARJINDER ATMARCOS 09/09/2022 [facility] FOR RECORDS PERTAINING TO PATIENTS [...] BE BASED ON THE PRIMARY CLINICAL RECORDS. [facility] [employer] provides no warranty or guarantee of the accuracy or completeness of information in this document.
== END 2023-07-24 01:18 | disposition home or self-care (01) ==
LOC: LAB 01:17
PROVIDERS: PCP Family Medicine; Visit Provider Family Medicine
DX: E03.9 Hypothyroidism, unspecified (principal)
CPT/HCPCS: 36415; 84443

== ENCOUNTER 2023-11-13 13:10 | Emergency (ER) | payer MEDICARE, MEDICAID, SELFPAY ==
--- NOTE | 2023-11-13 13:12 | XR_ITS ---
[address] [id number] Patient Name: FRANSISCO MENON MRN: [id number] date: 1945 Sex: F Assigned Patient Location: ER Current Patient Location: ED.MAIN Accession/Order Number: [id number] Exam Date: 11/13/2023 13:55 Report Date: 11/13/2023 14:33 At the request of: KASSANDRA PEREZ Procedure: XR pelvis 1-2V PROCEDURE: XR pelvis 1-2V, XR femur LT 2V HISTORY: fall COMPARISON: None. FINDINGS: BONES:Acute, spiral fracture of mid left femoral diaphysis with rotation, proximal retraction approximately 5 cm, and lateral displacement one full bone width. A second longitudinal fracture within the distal femoral fragment extending from mid diaphysis to the lateral margin of the distal femur adjacent the knee prosthesis with 0.6 cm wide fracture line. Prior prosthetic replacement of the left hip and femur without appreciable hardware fracture or loosening. Advanced degenerative changes and remodeling of the right hip joint. SOFT TISSUES:No visible soft tissue swelling. EFFUSION:None visible. OTHER: Negative. XR/XR pelvis 1-2V IMPRESSION: 1. Acute, comminuted, and markedly displaced left femur fracture as detailed above. Electronically authenticated by: JAYNE SAEZ Date: 11/13/2023 14:33
--- NOTE | 2023-11-13 13:12 | XR_ITS ---
[id number] Patient Name: FRANSISCO MENON MRN: [id number] date: 1945 Sex: F Assigned Patient Location: ER Current Patient Location: ED.MAIN Accession/Order Number: [id number] Exam Date: 11/13/2023 13:55 Report Date: 11/13/2023 14:33 At the request of: KASSANDRA PEREZ Procedure: XR femur LT 2V PROCEDURE: XR pelvis 1-2V, XR femur LT 2V HISTORY: fall COMPARISON: None. FINDINGS: BONES:Acute, spiral fracture of mid left femoral diaphysis with rotation, proximal retraction approximately 5 cm, and lateral displacement one full bone width. A second longitudinal fracture within the distal femoral fragment extending from mid diaphysis to the lateral margin of the distal femur adjacent the knee prosthesis with 0.6 cm wide fracture line. Prior prosthetic replacement of the left hip and femur without appreciable hardware fracture or loosening. Advanced degenerative changes and remodeling of the right hip joint. SOFT TISSUES:No visible soft tissue swelling. EFFUSION:None visible. OTHER: Negative. XR/XR femur LT 2V IMPRESSION: 1. Acute, comminuted, and markedly displaced left femur fracture as detailed above. Electronically authenticated by: JAYNE SAEZ Date: 11/13/2023 14:33
[2023-11-13 13:13] VITALS: BP 112/59; PULSE 69; TEMP 36.6; O2SAT 97; BMI 46.1
--- NOTE | 2023-11-13 13:13 | ECG_ITS ---
[facility] Test Date: 2023-11-13 Pat Name: FRANSISCO MENON Department: Room: - Gender: Female [employer] Application Consultant: : 1945 Requested By: PRANAV CAMPOS Order Number: [id number] Reading MD: RADHA CAIN Measurements Intervals [place] Rate: 104 P: -[id number] CA: -[id number] QRS: 60 QRSD: 86 T: 63 QT: 328 QTc: 389 Interpretive Statements 45602 Atrial fibrillation with rapid ventricular response with aberrant conduction, or ventricular premature complexes 9140 abnormal rhythm ECG No previous ECG available for comparison Electronically Signed On 11-13-2023 22:17:29 EDT by RADHA CAIN
--- NOTE | 2023-11-13 13:13 | ED.FALL1 ---
HPI HPI - Fall General Chief Complaint: Fall Stated Complaint: FALL Time Seen by Provider: 11/13/23 13:12 History of Present Illness HPI Narrative: 78-year-old female presented for an injury to her left leg. She reportedly fell about 730 this morning and an x-ray that was done at the facility shows a mid to distal left femoral fracture. She was transported here by paramedics and she had received oxycodone about 45 minutes prior to arrival. The patient does not seem to sustain any other injury. She has some degree of dementia and is at her baseline according to the paramedics. She cannot quantify or describe the pain. Related Data Home Medications ?Medication ?Instructions ?Recorded ?Confirmed acetaminophen 500 mg capsule 500 mg PO Q6H 11/13/23 11/13/23 ammonium lactate 12 % lotion 1 applic topical DAILY PRN dry skin 11/13/23 11/13/23 apixaban 5 mg tablet (Eliquis) 5 mg PO Q12H 11/13/23 11/13/23 aspirin 81 mg chewable tablet 81 mg PO DAILY 11/13/23 11/13/23 atorvastatin 40 mg tablet 40 mg PO QPM 11/13/23 11/13/23 baclofen 20 mg tablet 20 mg PO QPM 11/13/23 11/13/23 cholecalciferol (vitamin D3) 1,250 1,250 mcg PO QWEEK 11/13/23 11/13/23 mcg (50,000 unit) capsule folic acid 1 mg tablet 1 mg PO .QD 11/13/23 11/13/23 furosemide 20 mg tablet 20 mg PO BID 11/13/23 11/13/23 levothyroxine 100 mcg tablet 100 mcg PO .ACB 11/13/23 11/13/23 lidocaine 4 % topical patch 1 patch topical DAILY 11/13/23 11/13/23 (Aspercreme (lidocaine)) loperamide 2 mg capsule 2 mg PO BID PRN loose stool 11/13/23 11/13/23 melatonin 3 mg capsule 3 mg PO .QHS 11/13/23 11/13/23 menthol 5 % topical gel (Biofreeze 1 ea topical .Q8 PRN pain 11/13/23 11/13/23 (menthol)) metoprolol succinate 25 mg 12.5 mg PO .Q24 11/13/23 11/13/23 tablet,extended release 24 hr morphine 15 mg tablet,extended 15 mg PO Q8H 11/13/23 11/13/23 release nystatin 100,000 unit/gram topical 1 applic topical .QD 11/13/23 11/13/23 powder ondansetron HCl 4 mg tablet 4 mg PO Q6H PRN nausea and vomiting 11/13/23 11/13/23 oxycodone 5 mg tablet 5 mg PO Q12H PRN pain 11/13/23 11/13/23 polyethylene glycol 3350 17 gram 17 g PO DAILY PRN constipation 11/13/23 11/13/23 oral powder packet (Gavilax) potassium citrate 10 mEq (1,080 20 meq PO BIDWM 11/13/23 11/13/23 mg) tablet,extended release sertraline 25 mg tablet 25 mg PO Q24H 11/13/23 11/13/23 sertraline 50 mg tablet 50 mg PO Q24H 11/13/23 11/13/23 wound dressings (Triad Wound 1 applic topical BID PRN skin 11/13/23 11/13/23 Dressing paste) irritation Allergies Allergy/AdvReac Type Severity Reaction Status Date / Time No Known Drug Allergies Allergy Verified 11/13/23 13:13 Opioid HPI Opioid Management Most Recent Pain and Opioid Data: Last Pain Scale 8 11/13/23 15:04 Last JUL Pain Assessment 11/13/23 15:04 Review of Systems ROS Narrative Unobtainable, dementia Exam Narrative Exam Narrative: Nurses note and vital signs reviewed and patient is not hypoxic. General: The patient appears mildly uncomfortable Skin: Warm, dry, no pallor noted. There is no rash noted. Head: Normocephalic, atraumatic Eye: Normal conjunctiva, no drainage Ears, Nose, Mouth, and Throat: oral mucosa is moist. Nares patent. Cardiovascular: Regular Rate and Rhythm Respiratory: Patient is in no distress, no accessory muscle use, lungs are clear to auscultation, no wheezing, rales or rhonchi Back: non-tender, no CVA tenderness bilaterally to percussion. GI: Obese and nontender Musculoskeletal: Both legs are externally rotated Neurological: Awake and alert. She knows her name and the year and that she is in a hospital Psychiatric: Cooperative Constitutional Vital Signs, click to edit/add: Last Vital Signs Temp 97.8 F 11/13/23 13:13 Pulse 69 11/13/23 13:13 Resp 16 11/13/23 13:13 BP 112/59 11/13/23 13:13 Pulse Ox 97 11/13/23 13:13 O2 Del Method Room Air 11/13/23 13:13 Course Vital Signs Vital signs: Vital Signs Temperature 97.8 F 11/13/23 13:13 Pulse Rate 69 11/13/23 13:13 Respiratory Rate 16 11/13/23 13:13 Blood Pressure 112/59 11/13/23 13:13 Pulse Oximetry 97 11/13/23 13:13 Oxygen Delivery Method Room Air 11/13/23 13:13 Temperature 97.8 F 11/13/23 13:13 Pulse Rate 69 11/13/23 13:13 Respiratory Rate 16 11/13/23 13:13 Blood Pressure 112/59 11/13/23 13:13 Pulse Oximetry 97 11/13/23 13:13 Oxygen Delivery Method Room Air 11/13/23 13:13 MDM - Fall MDM Narrative Medical decision making narrative: She had left femur fracture is identified, closed. 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 She has mild dementia and is on Eliquis for A-fib. I have spoken to Dr. Mcdonough who requests the patient be transferred. I have spoken to Dr. Gonzalez at [facility] who accepts the patient and I have spoken to the nurse practitioner for the hospitalist service who accepts the patient as well. She is stable and agreeable for transfer. I discussed the findings with the patient. There is no other injury. She is stable and agreeable for transfer. Long-leg splint applied by me. Application is appropriate, she is neurovascularly intact. Differential Diagnosis Differential diagnosis: Likely other (Femur fracture, periprosthetic fracture) Lab Data Attestation: I reviewed the patient's lab results. Labs: Lab Results 11/13/23 Range/Units 13:14 WBC 10.2 (4.0-11.0) 10^3/uL RBC 4.18 L (4.20-5.40) 10^6/uL Hgb 11.8 L (12.0-16.0) g/dL Hct 40.6 (36.0-48.0) % MCV 97.1 (81.0-99.0) fL MCH 28.2 (26.7-34.0) pg MCHC 29.1 L (29.9-35.2) g/dL RDW 15.7 H (11.0-15.0) % Plt Count 271 (150-450) 10^3/uL MPV 10.4 (9.5-13.5) fL Neut % (Auto) 79.3 H (43.0-75.0) % Lymph % (Auto) 14.3 L (20.5-60.0) % [place] % (Auto) 5.2 (1.7-12.0) % Eos % (Auto) 0.0 L (0.9-7.0) % Baso % (Auto) 0.4 (0.2-2.0) % Neut # (Auto) 8.1 H (1.4-6.5) 10^3/uL Lymph # (Auto) 1.5 (1.2-3.8) 10^3/uL [place] # (Auto) 0.5 (0.3-0.8) 10^3/uL Eos # (Auto) 0.0 (0.0-0.7) 10^3/uL Baso # (Auto) 0.0 (0.0-0.1) 10^3/uL Abs Immat Gran (auto) 0.08 H (0.00-0.03) 10^3/uL Imm/Tot Granulo (auto) 0.8 H (0.0-0.5) % Sodium 143 (136-145) mmol/L Potassium 3.9 (3.5-5.1) mmol/L Chloride 105 (98-107) mmol/L Carbon Dioxide 34.3 H (21.0-32.0) mmol/L Anion Gap 7.6 BUN 21.0 H (7.0-18.0) mg/dL Creatinine 1.04 H (0.55-1.02) mg/dL Est GFR ( Amer) >60 (>=60) Est GFR (Non-Af Amer) 51 L (>=60) BUN/Creatinine Ratio 20.2 Glucose 123 H (74-106) mg/dL Calcium 8.2 L (8.5-10.1) mg/dL Imaging Data Left femur x-ray, pelvis: Radiologist's impression: ITS Impressions Femur X-Ray 11/13/23 13:12 IMPRESSION: 1. Acute, comminuted, and markedly displaced left femur fracture as detailed above. Electronically authenticated by: JAYNE SAEZ Date: 11/13/2023 14:33 Pelvis X-Ray 11/13/23 13:12 IMPRESSION: 1. Acute, comminuted, and markedly displaced left femur fracture as detailed above. Electronically authenticated by: JAYNE SAEZ Date: 11/13/2023 14:33 ECG Data Attestation: I personally reviewed and interpreted this ECG as follows: (EKG my interpretation shows atrial fibrillation with a rate of 104) Discharge Plan Discharge Chief Complaint: Fall Clinical Impression: Femur fracture, left Patient Disposition: [facility] Time of Disposition Decision: 15:37 Discharge Location: [facility] Condition: Fair Mode of Transportation: Private Vehicle
--- OUTSIDE RECORDS SUMMARY | 2023-11-13 13:41 | XMS_ITS | CCD ---
Author Organization [facility] Care Team Providers Care Paper Tube Cutter Name Role Phone NEPTALI VILLALTA Unavailable Unavailabl e NEPTALI VILLALTA Unavailable Unavailabl e BETH, DR ROCK Consulting Unavailable BETH, DR ROCK Admitting Unavailable MISC, DR HANSON Primary Care Unavailable BETH, DR ROCK Attending Unavailable BETH, DR ROCK Attending Unavailable BETH, DR ROCK Consulting Unavailable MISC, DR HANSON Primary Care Unavailable BETH, DR ROCK Admitting Unavailable MISC, DR HANSON Primary Care Unavailable ADIA DAVIS Attending Unavailable DAVIS, ADIA Consulting Unavailable DAVISADIA Admitting Unavailable BETH, DR ROCK Attending Unavailable [...] D, 25-Hydroxy 35.9 ng/mL Normal 30.0-100.0 [facility] Comment on above: Result Comment: Jadyn min D deficiency has been defined by the Vandiver of Medicine and an Endocrine Society practice guideline as a level of serum 25-OH vitamin D less than 20 ng/mL (1,2). The Endocrine Society went on to further define vitamin D insufficiency as a level between 21 and 29 ng/mL (2). 1. IOM (Vandiver of Medicine). 2010. Dietary reference intakes for calcium and D. [place]: The National Academies Press. 2. Yamilex MF, Florecita NC, Stella OTTO, et al. Evaluation, treatment, and prevention of vitamin D deficiency: an Endocrine Society clinical practice guideline. JCEM. 2010; 96(7):1911-30. Performed By: #### V ITADLC #### [facility] [address] [place] [address] Dr. Ashwin Key CBC AUTO DIFFon 08-22-2022 BASO # 0.0 103/ul Normal 0.0-0.1 [facility] Comment on above: Performed By: #### C BC #### [facility] [address] [place] [address] Dr. Ashwin Key Basophils/100 WBC (Bld) 0.5 % Normal 0.2-2.0 [facility] Comment on above: Performed By: #### C BC #### [facility] [address] [place] [address] Dr. Ashwin Key EO # 0.0 103/ul Normal 0.0-0.7 [facility] Comment on above: Performed By: #### C BC #### [facility] [address] [place] [address] Dr. Ashwin Key Eosinophils/100 WBC (Bld) 0.0 % Critically low 0.9-7.0 [facility] Comment on above: Performed By: #### C BC #### [facility] [address] [place] [address] Dr. Ashwin Key Erythrocyte distribution width (RBC) [Ratio] 14.7 % Normal 11.0-15.0 [facility] Comment on above: Performed By: #### C BC #### [facility] [address] [place] [address] Dr. Ashwin Key Hematocrit (Bld) [Volume fraction] 38.0 % Normal 36.0-48.0 [facility] Comment on above: Performed By: #### C BC #### [facility] [address] [place] [address] Dr. Ashwin Key Hemoglobin (Bld) [Mass/Vol] 11.5 g/dL Critically low 12.0-16.0 [facility] Comment on above: Performed By: #### C BC #### [facility] [address] [place] [address] Dr. Ashwin Key IG # 0.01 10e3/ul Normal 0.00-0.03 [facility] Comment on above: Performed By: #### C BC #### [facility] [address] [place] [address] Dr. Ashwin Key IG % 0.2 % Normal 0.0-0.5 [facility] Comment on above: Performed By: #### C BC #### [facility] [address] [place] [address] Dr. Ashwin Key LYMPH # 2.1 103/ul Normal 1.2-3.8 [facility] Comment on above: Performed By: #### C BC #### [facility] [address] [place] [address] Dr. Ashwin Key Lymphocytes/100 WBC (Bld) 48.4 % Normal 20.5-60.0 [facility] Comment on above: Performed By: #### C BC #### [facility] [address] [place] [address] Dr. Ashwin Key MANUAL DIFF REQ NO Normal [facility] Comment on above: Performed By: #### C BC #### [facility] [address] [place] [address] Dr. Ashwin Key MCH (RBC) [Entitic mass] 28.8 pg Normal 26.7-34.0 [facility] Comment on above: Performed By: #### C BC #### [facility] [address] [place] [address] Dr. Ashwin Key MCHC (RBC) [Mass/Vol] 30.3 g/dL Normal 29.9-35.2 [facility] Comment on above: Performed By: #### C BC #### [facility] [address] [place] [address] Dr. Ashwin Kye MCV (RBC) [Entitic vol] 95.0 fL Normal 81.0-99.0 [facility] Comment on above: Performed By: #### C BC #### [facility] [address] [place] [address] Dr. Ashwin Key MONO # 0.4 103/ul Normal 0.3-0.8 [facility] Comment on above: Performed By: #### C BC #### [facility] [address] [place] [address] Dr. Ashwin Key Monocytes/100 WBC (Bld) 9.3 % Normal 1.7-12.0 [facility] Comment on above: Performed By: #### C BC #### [facility] [address] [place] [address] Dr. Ashwin Key NEUT # 1.8 103/ul Normal 1.4-6.5 [facility] Comment on above: Performed By: #### C BC #### [facility] [address] [place] [address] Dr. Ashwin Key Neutrophils/100 WBC (Bld) 41.6 % Critically low 43.0-75.0 [facility] Comment on above: Performed By: #### C BC #### [facility] [address] [place] [address] Dr. Ashwin Key Platelet mean volume (Bld) [Entitic vol] 10.3 fL Normal 9.5-13.5 [facility] Comment on above: Performed By: #### C BC #### [facility] [address] [place] [address] Dr. Ashwin Key PLT 166 103/ul Normal 150-450 [facility] Comment on above: Performed By: #### C BC #### [facility] [address] [place] [address] Dr. Ashwin Key RBC 4.00 106/ul Critically low 4.20-5.40 [facility] Comment on above: Performed By: #### C BC #### [facility] [address] [place] [address] Dr. Ashwin Key WBC 4.4 103/ul Normal 4.0-11.0 [facility] Comment on above: Performed By: #### C BC #### [facility] [address] [place] [address] Dr. Ashwin Key GLYCOHEMOGLOBIN A1Con 2022 ADA RECOMMENDATION SEE BELOW Normal [facility] Comment on above: Result Comment: ADA RECOMMENDED LIMIT 4.0 - 6.0 ADA THERAPEUTIC TARGET < 7.0 ACTION SUGGESTED > 7.0 Performed By: #### A 1C #### [facility] [address] [address] [address] Ashwin Key Glucose [Mass/Vol] 105 mg/dL Normal [facility] Comment on above: Performed By: #### A 1C #### [facility] [address] [address] [address] Ashwin Key HbA1c (Bld) [Mass fraction] 5.3 % Normal 4.5-6.2 [facility] Comment on above: Performed By: #### A 1C #### [facility] [address] [place] [address] Dr. Ashwin Key LIPID PROFILEon 08-22-2022 CHOL-HDL RATIO NORM SEE BELOW Normal [place] Comment on above: Result Comment: 3.3 - 4.4 LOW RISK 4.4 - 7.1 AVERAGE RISK 7.1 - 11.0 MODERATE RISK >11.0 HIGH RISK Performed By: #### U ACSIND, UMICRO #### [facility] [address] [address] [address] Ashwin Key Cholesterol [Mass/Vol] 103 mg/dL Normal <=200 [facility] Comment on above: Performed By: #### U ACSIND, UMICRO #### [facility] [address] [address] [address] Ashwin Key Cholesterol in HDL [Mass/Vol] 40 mg/dL Normal 40-60 [facility] Comment on above: Performed By: #### U ACSIND, UMICRO #### [facility] [address] [address] [address] Ashwin Key Cholesterol in LDL [Mass/Vol] 51.8 mg/dL Normal [facility] Comment on above: Performed By: #### U ACSIND, UMICRO #### [facility] [address] [address] [address] Ashwin Key Cholesterol.total/Cho lesterol in HDL [Mass ratio] 2.6 {ratio} Normal [facility] Comment on above: Performed By: #### U ACSJAZMIN, UMICRO #### [facility] [address] [address] [address] Ashwin Key HDL NORMAL > or = 60 mg/dl - LOW CARDIOVASCULAR RISK <40 mg/dl - HIGH CARDIOVASCULAR RISK Normal [facility] Comment on above: Performed By: #### U ACSJAZMIN, UMICRO #### [facility] [address] [address] [address] Ashwin Key LDL CALC NORMAL SEE BELOW Normal [facility] Comment on above: Result Comment: <100 mg/dl OPTIMAL 100 - 129 mg/dl NEAR OR ABOVE OPTIMAL 130 - 159 mg/dl BORDERLINE HIGH 160 - 189 mg/dl HIGH >190 mg/dl VERY HIGH Performed By: #### U ACSJAZMIN, UMICRO #### [facility] [address] [address] [address] Ashwin Key Triglyceride [Mass/Vol] 56 mg/dL Normal <=150 [facility] Comment on above: Performed By: #### U ACSJAZMIN UMICRO #### [facility] [address] [address] [address] Ashwin Key VLDL CALC 11.2 mg/dL Normal [facility] Comment on above: Performed By: #### U ACSJAZMIN UMICRO #### [facility] [address] [address] [address] Ashwin Key PROF 14(COMP METB)on 023 Albumin [Mass/Vol] 2.5 g/dL Critically low 3.4-5.0 [facility] Comment on above: Performed By: #### U ACSJAZMIN, UMICRO #### [facility] [address] [address] [address] Ashwin Key Albumin/Globulin [Mass ratio] 0.7 {ratio} Normal [facility] Comment on above: Performed By: #### U ACSJAZMIN, UMICRO #### [facility] [address] [address] [address] Ashwin Key ALP [Catalytic activity/Vol] 110 U/L Normal 46-116 [facility] Comment on above: Performed By: #### U ACSIND, UMICRO #### [facility] [address] [address] [address] Ashwin Key ALT [Catalytic activity/Vol] 16 U/L Normal 14-59 [facility] Comment on above: Performed By: #### U ACSIND, UMICRO #### [facility] [address] [address] [address] Ashwin Key Anion gap [Moles/Vol] 9.8 mmol/L Normal [facility] Comment on above: Performed By: #### U ACSIND, UMICRO #### [facility] [address] [address] [address] Ashwin Key AST [Catalytic activity/Vol] 13 U/L Critically low 15-37 [facility] Comment on above: Performed By: #### U ACSIND, UMICRO #### [facility] [address] [place] [address] Dr. Ashwin Key Bilirubin [Mass/Vol] 0.4 mg/dL Normal 0.2-1.0 [facility] Comment on above: Performed By: #### U ACSIND, UMICRO #### [facility] [address] [address] [address] Ashwin Key Calcium [Mass/Vol] 8.5 mg/dL Normal 8.5-10.1 [facility] Comment on above: Performed By: #### U ACSIND, UMICRO #### [facility] [address] [address] [address] Ashwin Key Chloride [Moles/Vol] 108 mmol/L Critically high 98-107 [facility] Comment on above: Performed By: #### U ACSIND, UMICRO #### [facility] [address] [address] [address] Ashwin Key CO2 [Moles/Vol] 31.0 mmol/L Normal 21.0-32.0 [facility] Comment on above: Performed By: #### U ACSIND, UMICRO #### [facility] [address] [address] [address] Ashwin Key Creatinine [Mass/Vol] 0.91 mg/dL Normal 0.55-1.02 [facility] Comment on above: Performed By: #### U JOEY BUTTRO #### [facility] [address] [address] [address] Ashwin Key EGFR-AF MACANESE >60 Normal >=60 [facility] Comment on above: Performed By: #### U JOEY BUTTRO #### [facility] [address] [address] [address] Ashwin Key EGFR-NON AF MACANESE 60 mL/min/1.73m2 Normal >=60 [facility] Comment on above: Performed By: #### U JOEY BUTTRO #### [facility] [address] [place] [address] Dr. Ashwin Key Globulin (S) [Mass/Vol] 3.5 g/dL Normal [facility] Comment on above: Performed By: #### JOEY DIEGORO #### [facility] [address] [address] [address] Ashwin Key Glucose [Mass/Vol] 99 mg/dL Normal 74-106 [facility] Comment on above: Performed By: #### JOEY DIEGORO #### [facility] [address] [place] [address] Dr. Ashwin Key Potassium [Moles/Vol] 3.8 mmol/L Normal 3.5-5.1 [facility] Comment on above: Performed By: #### U JOEY BUTTRO #### [facility] [address] [place] [address] Dr. Ashwin Key Protein [Mass/Vol] 6.0 g/dL Critically low 6.4-8.2 [facility] Comment on above: Performed By: #### U JOEY BUTTRO #### [facility] [address] [place] [address] Dr. Ashwin Key Sodium [Moles/Vol] 145 mmol/L Normal 136-145 [facility] Comment on above: Performed By: #### U JOEY BUTTRO #### [facility] [address] [place] [address] Dr. Ashwin Key Urea nitrogen [Mass/Vol] 24.0 mg/dL Critically high 7.0-18.0 [facility] Comment on above: Performed By: #### U JOEY BUTTRO #### [facility] [address] [place] [address] Dr. Ashwin Key Urea nitrogen/Creatinine [Mass ratio] 26.4 mg/mg Normal [facility] Comment on above: Performed By: #### U JOEY BUTTRO #### [facility] [address] [place] [address] Dr. Ashwin Key TSHon 08-22-2022 TSH 5.573 uIU/mL Critically high 0.358-3.740 [facility] Comment on above: Performed By: #### U JUAN F BUTT #### [facility] [address] [place] [address] Dr. Ashwin Key CBC AUTO DIFFon 08-10-2022 BASO # 0.0 103/ul Normal 0.0-0.1 [facility] Comment on above: Performed By: #### C BC #### [facility] [address] [place] [address] Dr. Ashwin Key Basophils/100 WBC (Bld) 0.7 % Normal 0.2-2.0 [facility] Comment on above: Performed By: #### C BC #### [facility] [address] [place] [address] Dr. Ashwin Key EO # 0.0 103/ul Normal 0.0-0.7 [facility] Comment on above: Performed By: #### C BC #### [facility] [address] [place] [address] Dr. Ashwin Key Eosinophils/100 WBC (Bld) 0.0 % Critically low 0.9-7.0 [facility] Comment on above: Performed By: #### C BC #### [facility] [address] [place] [address] Dr. Ashwin Key Erythrocyte distribution width (RBC) [Ratio] 15.1 % Critically high 11.0-15.0 [facility] Comment on above: Performed By: #### C BC #### [facility] [address] [place] [address] Dr. Ashwin Key Hematocrit (Bld) [Volume fraction] 38.0 % Normal 36.0-48.0 [facility] Comment on above: Performed By: #### C BC #### [facility] [address] [place] [address] Dr. Ashwin Key Hemoglobin (Bld) [Mass/Vol] 11.4 g/dL Critically low 12.0-16.0 [facility] Comment on above: Performed By: #### C BC #### [facility] [address] [place] [address] Dr. Ashwin Key IG # 0.02 10e3/ul Normal 0.00-0.03 [facility] Comment on above: Performed By: #### C BC #### [facility] [address] [place] [address] Dr. Ashwin Key IG % 0.5 % Normal 0.0-0.5 [facility] Comment on above: Performed By: #### C BC #### [facility] [address] [place] [address] Dr. Ashwin Key LYMPH # 2.1 103/ul Normal 1.2-3.8 [facility] Comment on above: Performed By: #### C BC #### [facility] [address] [place] [address] Dr. Ashwin Key Lymphocytes/100 WBC (Bld) 48.4 % Normal 20.5-60.0 [facility] Comment on above: Performed By: #### C BC #### [facility] [address] [place] [address] Dr. Ashwin Key MANUAL DIFF REQ NO Normal [facility] Comment on above: Performed By: #### C BC #### [facility] [address] [place] [address] Dr. Ashwin Key MCH (RBC) [Entitic mass] 28.8 pg Normal 26.7-34.0 [facility] Comment on above: Performed By: #### C BC #### [facility] [address] [place] [address] Dr. Ashwin Key MCHC (RBC) [Mass/Vol] 30.0 g/dL Normal 29.9-35.2 [facility] Comment on above: Performed By: #### C BC #### [facility] [address] [place] [address] Dr. Ashwin Key MCV (RBC) [Entitic vol] 96.0 fL Normal 81.0-99.0 [facility] Comment on above: Performed By: #### C BC #### [facility] [address] [place] [address] Dr. Ashwin Key MONO # 0.3 103/ul Normal 0.3-0.8 [facility] Comment on above: Performed By: #### C BC #### [facility] [address] [place] [address] Dr. Ashwin Key Monocytes/100 WBC (Bld) 7.7 % Normal 1.7-12.0 [facility] Comment on above: Performed By: #### C BC #### [facility] [address] [place] [address] Dr. Ashwin Key NEUT # 1.8 103/ul Normal 1.4-6.5 [facility] Comment on above: Performed By: #### C BC #### [facility] [address] [place] [address] Dr. Ashwin Key Neutrophils/100 WBC (Bld) 42.7 % Critically low 43.0-75.0 [facility] Comment on above: Performed By: #### C BC #### [facility] [address] [place] [address] Dr. Ashwin Key Platelet mean volume (Bld) [Entitic vol] 10.1 fL Normal 9.5-13.5 [facility] Comment on above: Performed By: #### C BC #### [facility] [address] [place] [address] Dr. Ashwin Key PLT 156 103/ul Normal 150-450 [facility] Comment on above: Performed By: #### C BC #### [facility] [address] [address] [address] Ashwin Key RBC 3.96 106/ul Critically low 4.20-5.40 [facility] Comment on above: Performed By: #### C BC #### [facility] [address] [address] [address] Ashwin Key WBC 4.3 103/ul Normal 4.0-11.0 [facility] Comment on above: Performed By: #### C BC #### [facility] [address] [address] [address] Ashwin Key PROF CHEM 8 (BAS METB)on Anion gap [Moles/Vol] 13.3 mmol/L Normal [facility] Comment on above: Performed By: #### U ACSIND, UMICRO #### [facility] [address] [place] [address] Dr. Ashwin Key Calcium [Mass/Vol] 8.3 mg/dL Critically low 8.5-10.1 [facility] Comment on above: Performed By: #### U ACSIND, UMICRO #### [facility] [address] [address] [address] Ashwin Key Chloride [Moles/Vol] 111 mmol/L Critically high 98-107 [facility] Comment on above: Performed By: #### U ACSIND, UMICRO #### [facility] [address] [place] [address] Dr. Ashwin Key CO2 [Moles/Vol] 29.9 mmol/L Normal 21.0-32.0 [facility] Comment on above: Performed By: #### U ACSIND, UMICRO #### [facility] [address] [place] [address] Dr. Ashwin eKy Creatinine [Mass/Vol] 0.92 mg/dL Normal 0.55-1.02 [facility] Comment on above: Performed By: #### U ACSIND, UMICRO #### [facility] [address] [place] [address] Dr. Ashwin Key EGFR-AF MACANESE >60 Normal >=60 [facility] Comment on above: Performed By: #### U GURVINDER BUTTICRO #### [facility] [address] [address] [address] Ashwin Key EGFR-NON AF MACANESE 59 mL/min/1.73m2 Critically low >=60 [facility] Comment on above: Performed By: #### GURVINDER DIEGOICRO #### [facility] [address] [address] [address] Ashwin Key Glucose [Mass/Vol] 84 mg/dL Normal 74-106 [facility] Comment on above: Performed By: #### GURVINDER DIEGOICRO #### [facility] [address] [address] [address] Ashwin Key Potassium [Moles/Vol] 4.2 mmol/L Normal 3.5-5.1 [facility] Comment on above: Performed By: #### JOEY DIEGORO #### [facility] [address] [address] [address] Ashwin Key Sodium [Moles/Vol] 150 mmol/L Critically high 136-145 [facility] Comment on above: Performed By: #### JOEY DIEGORO #### [facility] [address] [place] [address] Dr. Ashwin Key Urea nitrogen [Mass/Vol] 25.0 mg/dL Critically high 7.0-18.0 [facility] Comment on above: Performed By: #### JOEY DIEGORO #### [facility] [address] [place] [address] Dr. Ashwin Key Urea nitrogen/Creatinine [Mass ratio] 27.2 mg/mg Normal [facility] Comment on above: Performed By: #### JOEY DIEGORO #### [facility] [address] [place] [address] Dr. Ashwin Key TSHon 08-10-2022 TSH 3.430 uIU/mL Normal 0.358-3.740 [facility] Comment on above: Performed By: #### JOEY DIEGORO #### [facility] [address] [address] [address] Ashwin Key CULTURE URINEon 08-09-2022 CULTURE URINE Culture Observations: ANSON TO FOLLOW. Normal [facility] Comment on above: Performed By: #### U ACSIND, UMICRO #### [facility] [address] [place] [address] Dr. Ashwin Key UA (CLEAN/CATCH) SALON RECEPTIONIST/MICRO I F IND.on 08-09-2022 Bilirubin Ql (U) Negative Normal NEGATIVE [facility] Comment on above: Performed By: #### U ACSIND, UMICRO #### [facility] [address] [address] [address] Ashwin Key Clarity (U) CLEAR Normal CLEAR [facility] Comment on above: Performed By: #### U ACSIND, UMICRO #### [facility] [address] [place] [address] Dr. Ashwin Key Color (U) LT. YELLOW Normal YELLOW [facility] Comment on above: Performed By: #### U ACSIND, UMICRO #### [facility] [address] [place] [address] Dr. Ashwin Key Glucose Ql (U) Negative Normal NEGATIVE [facility] Comment on above: Performed By: #### U ACSIND, UMICRO #### [facility] [address] [place] [address] Dr. Ashwin Key Hemoglobin Ql (U) TRACE-INTACT Abnormal NEGATIVE [place] Comment on above: Performed By: #### U ACSIND, UMICRO #### [facility] [address] [place] [address] Dr. Ashwin Key Ketones Ql (U) Negative Normal NEGATIVE [facility] Comment on above: Performed By: #### U ACSIND, UMICRO #### [facility] [address] [place] [address] Dr. Ashwin Key LEUKOCYTES TRACE Abnormal NEGATIVE [facility] Comment on above: Performed By: #### U ACSIND, UMICRO #### [facility] [address] [place] [address] Dr. Ashwin Key Nitrite Ql (U) Negative Normal NEGATIVE [facility] Comment on above: Performed By: #### U ACSJAZMIN UMICRO #### [facility] [address] [place] [address] Dr. Ashwin Key pH (U) 5.5 [pH] Normal 5-9 [facility] Comment on above: Performed By: #### U ACSJAZMIN UMICRO #### [facility] [address] [address] [address] Ashwin Key SPEC GRAVITY <=1.005 Abnormal 1.005-<=1.025 [facility] Comment on above: Performed By: #### U ACSJAZMIN UMICRO #### [facility] [address] [place] [address] Dr. Ashwin Key UA PROTEIN Negative Normal NEGATIVE/ TRACE [facility] Comment on above: Performed By: #### U ACSJAZMIN UMICRO #### [facility] [address] [place] [address] Dr. Ashwin Key UR MICRO IND INDICATED Normal [facility] Comment on above: Performed By: #### U ACSJAZMIN UMICRO #### [facility] [address] [place] [address] Dr. Ashwin Key Urobilinogen Qn (U) 0.2 {Mercedes'U}/dL Normal 0.2 - 1. 0 [facility] Comment on above: Performed By: #### U ACSJAZMIN UMICRO #### [facility] [address] [place] [address] Dr. Ashwin Key URINE MICROSCOPIC ONLYon AMORPHOUS CRYSTALS FEW Normal [facility] Comment on above: Performed By: #### U ACSJAZMIN UMICRO #### [facility] [address] [place] [address] Dr. Ashwin Key BACTERIA MODERATE Abnormal NONE SEEN [facility] Comment on above: Performed By: #### U ACSJAZMIN UMICRO #### [facility] [address] [place] [address] Dr. Ashwin Key Bacteria identified Cx Nom (U) INDICATED Normal [facility] Comment on above: Performed By: #### U ACSIND, UMICRO #### [facility] [address] [place] [address] Dr. Ashwin Key CAST NONE SEEN Normal NONE SEEN [facility] Comment on above: Performed By: #### U ACSIND, UMICRO #### [facility] [address] [place] [address] Dr. Ashwin Key Crystals LM Nom (Urine sed) SEEN Abnormal NONE SEEN [facility] Comment on above: Performed By: #### U ACSJAZMIN, UMICRO #### [facility] [address] [place] [address] Dr. Ashwin Key Epithelial cells LM Ql (Urine sed) MANY Abnormal NONE SEEN /RARE [facility] Comment on above: Performed By: #### U ACSJAZMIN, UMICRO #### [facility] [address] [place] [address] Dr. Ashwin Key MUCOUS NONE SEEN Normal NONE SEEN [facility] Comment on above: Performed By: #### U ACSJAZMIN, ICRO #### [facility] [address] [place] [address] Dr. Ashwin Key RBC 0-2 Normal 0-2 [facility] Comment on above: Performed By: #### U ACSJAZMIN, ICRO #### [facility] [address] [place] [address] Dr. Ashwin Key WBC 2-5 Abnormal NONE SEEN [facility] Comment on above: Performed By: #### U ACSJAZMIN, ICRO #### [facility] [address] [place] [address] Dr. Ashwin Key CBC AUTO DIFFon 07-11-2022 BASO # 0.0 103/ul Normal 0.0-0.1 [facility] Comment on above: Performed By: #### C BC #### [facility] [address] [place] [address] Dr. Ashwin Key Basophils/100 WBC (Bld) 0.5 % Normal 0.2-2.0 [facility] Comment on above: Performed By: #### C BC #### [facility] [address] [place] [address] Dr. Ashwin Key EO # 0.0 103/ul Normal 0.0-0.7 [facility] Comment on above: Performed By: #### C BC #### [facility] [address] [place] [address] Dr. Ashwin Key Eosinophils/100 WBC (Bld) 0.0 % Critically low 0.9-7.0 [facility] Comment on above: Performed By: #### C BC #### [facility] [address] [place] [address] Dr. Ashwin Key Erythrocyte distribution width (RBC) [Ratio] 14.5 % Normal 11.0-15.0 [facility] Comment on above: Performed By: #### C BC #### [facility] [address] [place] [address] Dr. Ashwin Key Hematocrit (Bld) [Volume fraction] 42.5 % Normal 36.0-48.0 [facility] Comment on above: Performed By: #### C BC #### [facility] [address] [place] [address] Dr. Ashwin Key Hemoglobin (Bld) [Mass/Vol] 13.1 g/dL Normal 12.0-16.0 [facility] Comment on above: Performed By: #### C BC #### [facility] [address] [place] [address] Dr. Ashwin Key IG # 0.02 10e3/ul Normal 0.00-0.03 [facility] Comment on above: Performed By: #### C BC #### [facility] [address] [place] [address] Dr. Ashwin Key IG % 0.5 % Normal 0.0-0.5 [facility] Comment on above: Performed By: #### C BC #### [facility] [address] [place] [address] Dr. Ashwin Key LYMPH # 2.1 103/ul Normal 1.2-3.8 [facility] Comment on above: Performed By: #### C BC #### [facility] [address] [place] [address] Dr. Ashwin Key Lymphocytes/100 WBC (Bld) 48.2 % Normal 20.5-60.0 [facility] Comment on above: Performed By: #### C BC #### [facility] [address] [place] [address] Dr. Ashwin Key MANUAL DIFF REQ NO Normal [facility] Comment on above: Performed By: #### C BC #### [facility] [address] [place] [address] Dr. Ashwin Key MCH (RBC) [Entitic mass] 28.4 pg Normal 26.7-34.0 [facility] Comment on above: Performed By: #### C BC #### [facility] [address] [place] [address] Dr. Ashwin Key MCHC (RBC) [Mass/Vol] 30.8 g/dL Normal 29.9-35.2 [facility] Comment on above: Performed By: #### C BC #### [facility] [address] [place] [address] Dr. Ashwin Key MCV (RBC) [Entitic vol] 92.2 fL Normal 81.0-99.0 [facility] Comment on above: Performed By: #### C BC #### [facility] [address] [place] [address] Dr. Ashwin Key MONO # 0.4 103/ul Normal 0.3-0.8 [facility] Comment on above: Performed By: #### C BC #### [facility] [address] [place] [address] Dr. Ashwin Key Monocytes/100 WBC (Bld) 8.7 % Normal 1.7-12.0 [facility] Comment on above: Performed By: #### C BC #### [facility] [address] [place] [address] Dr. Ashwin Key NEUT # 1.8 103/ul Normal 1.4-6.5 [facility] Comment on above: Performed By: #### C BC #### [facility] [address] [place] [address] Dr. Ashwin Key Neutrophils/100 WBC (Bld) 42.1 % Critically low 43.0-75.0 [facility] Comment on above: Performed By: #### C BC #### [facility] [address] [place] [address] Dr. Ashwin Key Platelet mean volume (Bld) [Entitic vol] 10.4 fL Normal 9.5-13.5 [facility] Comment on above: Performed By: #### C BC #### [facility] [address] [place] [address] Dr. Ashwin Key PLT 159 103/ul Normal 150-450 [facility] Comment on above: Performed By: #### C BC #### [facility] [address] [place] [address] Dr. Ashwin Key RBC 4.61 106/ul Normal 4.20-5.40 [facility] Comment on above: Performed By: #### C BC #### [facility] [address] [place] [address] Dr. Ashwin Key WBC 4.3 103/ul Normal 4.0-11.0 [facility] Comment on above: Performed By: #### C BC #### [facility] [address] [place] [address] Dr. Ashwin Key PROF CHEM 8 (BAS METB)on Anion gap [Moles/Vol] 10.2 mmol/L Normal [facility] Comment on above: Performed By: #### B MP #### [facility] [address] [place] [address] Dr. Ashwin Key Calcium [Mass/Vol] 8.5 mg/dL Normal 8.5-10.1 [facility] Comment on above: Performed By: #### B MP #### [facility] [address] [place] [address] Dr. Ashwin Key Chloride [Moles/Vol] 104 mmol/L Normal 98-107 [facility] Comment on above: Performed By: #### B MP #### [facility] [address] [place] [address] Dr. Ashwin Key CO2 [Moles/Vol] 32.6 mmol/L Critically high 21.0-32.0 [facility] Comment on above: Performed By: #### B MP #### [facility] [address] [address] [address] Ashwin Key Creatinine [Mass/Vol] 0.91 mg/dL Normal 0.55-1.02 [facility] Comment on above: Performed By: #### B MP #### [facility] [address] [address] [address] Ashwin Key EGFR-AF MACANESE >60 Normal >=60 [facility] Comment on above: Performed By: #### B MP #### [facility] [address] [address] [address] Ashwin Key EGFR-NON AF MACANESE =60 Normal >=60 [facility] Comment on above: Performed By: #### B MP #### [facility] [address] [address] [address] Ashwin Key Glucose [Mass/Vol] 89 mg/dL Normal 74-106 [facility] Comment on above: Performed By: #### B MP #### [facility] [address] [address] [address] Ashwin Key Potassium [Moles/Vol] 3.8 mmol/L Normal 3.5-5.1 [facility] Comment on above: Performed By: #### B MP #### [facility] [address] [address] [address] Ashwin Key Sodium [Moles/Vol] 143 mmol/L Normal 136-145 [facility] Comment on above: Performed By: #### B MP #### [facility] [address] [address] [address] Ashwin Key Urea nitrogen [Mass/Vol] 26.0 mg/dL Critically high 7.0-18.0 [facility] Comment on above: Performed By: #### B MP #### [facility] [address] [address] [address] Ashwin Key Urea nitrogen/Creatinine [Mass ratio] 28.6 mg/mg Normal [facility] Comment on above: Performed By: #### B MP #### [facility] [address] [place] [address] Dr. Ashwin Key CULTURE URINEon 02-11-2022 CULTURE [...] Trimethoprim/Sulfame thoxazole <=20 S F Normal [facility] Comment on above: Performed By: #### U ACSJUAN F WU #### [facility] [address] [place] [address] Dr. Ashwin Key CBC AUTO DIFFon 02-07-2022 BASO # 0.0 103/ul Normal 0.0-0.1 [facility] Comment on above: Performed By: #### C BC #### [facility] [address] [place] [address] Dr. Ashwin Key Basophils/100 WBC (Bld) 0.5 % Normal 0.2-2.0 [facility] Comment on above: Performed By: #### C BC #### [facility] [address] [place] [address] Dr. Ashwin Key EO # 0.0 103/ul Normal 0.0-0.7 [facility] Comment on above: Performed By: #### C BC #### [facility] [address] [place] [address] Dr. Ashwin Key Eosinophils/100 WBC (Bld) 0.0 % Critically low 0.9-7.0 [facility] Comment on above: Performed By: #### C BC #### [facility] [address] [place] [address] Dr. Ashwin Key Erythrocyte distribution width (RBC) [Ratio] 13.4 % Normal 11.0-15.0 [facility] Comment on above: Performed By: #### C BC #### [facility] [address] [place] [address] Dr. Ashwin Key Hematocrit (Bld) [Volume fraction] 46.8 % Normal 36.0-48.0 [facility] Comment on above: Performed By: #### C BC #### [facility] [address] [place] [address] Dr. Ashwin Key Hemoglobin (Bld) [Mass/Vol] 14.2 g/dL Normal 12.0-16.0 [facility] Comment on above: Performed By: #### C BC #### [facility] [address] [place] [address] Dr. Ashwin Key IG # 0.05 10e3/ul Critically high 0.00-0.03 [facility] Comment on above: Performed By: #### C BC #### [facility] [address] [place] [address] Dr. Ashwin Key IG % 0.6 % Critically high 0.0-0.5 [facility] Comment on above: Performed By: #### C BC #### [facility] [address] [place] [address] Dr. Ashwin Key LYMPH # 2.0 103/ul Normal 1.2-3.8 [facility] Comment on above: Performed By: #### C BC #### [facility] [address] [place] [address] Dr. Ashwin Key Lymphocytes/100 WBC (Bld) 22.9 % Normal 20.5-60.0 [facility] Comment on above: Performed By: #### C BC #### [facility] [address] [place] [address] Dr. Ashwin Key MANUAL DIFF REQ NO Normal [facility] Comment on above: Performed By: #### C BC #### [facility] [address] [place] [address] Dr. Ashwin Key MCH (RBC) [Entitic mass] 29.1 pg Normal 26.7-34.0 [facility] Comment on above: Performed By: #### C BC #### [facility] [address] [place] [address] Dr. Ashwin Key MCHC (RBC) [Mass/Vol] 30.3 g/dL Normal 29.9-35.2 [facility] Comment on above: Performed By: #### C BC #### [facility] [address] [place] [address] Dr. Ashwin Key MCV (RBC) [Entitic vol] 95.9 fL Normal 81.0-99.0 [facility] Comment on above: Performed By: #### C BC #### [facility] [address] [place] [address] Dr. Ashwin Key MONO # 0.9 103/ul Critically high 0.3-0.8 [facility] Comment on above: Performed By: #### C BC #### [facility] [address] [place] [address] Dr. Ashwin Key Monocytes/100 WBC (Bld) 10.9 % Normal 1.7-12.0 [facility] Comment on above: Performed By: #### C BC #### [facility] [address] [place] [address] Dr. Ashwin Key NEUT # 5.6 103/ul Normal 1.4-6.5 [facility] Comment on above: Performed By: #### C BC #### [facility] [address] [place] [address] Dr. Ashwin Key Neutrophils/100 WBC (Bld) 65.1 % Normal 43.0-75.0 [facility] Comment on above: Performed By: #### C BC #### [facility] [address] [place] [address] Dr. Ashwin Key Platelet mean volume (Bld) [Entitic vol] 10.6 fL Normal 9.5-13.5 [facility] Comment on above: Performed By: #### C BC #### [facility] [address] [place] [address] Dr. Ashwin Key PLT 203 103/ul Normal 150-450 [facility] Comment on above: Performed By: #### C BC #### [facility] [address] [address] [address] Ashwin Key RBC 4.88 106/ul Normal 4.20-5.40 [facility] Comment on above: Performed By: #### C BC #### [facility] [address] [address] [address] Ashwin Key WBC 8.6 103/ul Normal 4.0-11.0 [facility] Comment on above: Performed By: #### C BC #### [facility] [address] [place] [address] Dr. Ashwin Key PROF 14(COMP METB)on 022 Albumin [Mass/Vol] 3.6 g/dL Normal 3.4-5.0 [facility] Comment on above: Performed By: #### U JUAN F BUTT #### [facility] [address] [place] [address] Dr. Ashwin Key Albumin/Globulin [Mass ratio] 1.2 {ratio} Normal [facility] Comment on above: Performed By: #### U JUAN F BUTT #### [facility] [address] [place] [address] Dr. Ashwin Key ALP [Catalytic activity/Vol] 128 U/L Critically high 46-116 [facility] Comment on above: Performed By: #### U JUAN F BUTT #### [facility] [address] [place] [address] Dr. Ashwin Key ALT [Catalytic activity/Vol] 20 U/L Normal 14-59 [facility] Comment on above: Performed By: #### U JUAN F BUTT #### [facility] [address] [place] [address] Dr. Ashwin Key Anion gap [Moles/Vol] 12.0 mmol/L Normal [facility] Comment on above: Performed By: #### U JUAN F BUTT #### [facility] [address] [place] [address] Dr. Ashwin Key AST [Catalytic activity/Vol] 18 U/L Normal 15-37 [facility] Comment on above: Performed By: #### U FILOMENA UMICRO #### [facility] [address] [address] [address] Ashwin Key Bilirubin [Mass/Vol] 0.8 mg/dL Normal 0.2-1.0 [facility] Comment on above: Performed By: #### U ACSJAZMIN UMICRO #### [facility] [address] [address] [address] Ashwin Key Calcium [Mass/Vol] 8.1 mg/dL Critically low 8.5-10.1 [facility] Comment on above: Performed By: #### U ACSJAZMIN UMICRO #### [facility] [address] [place] [address] Dr. Ashwin Key Chloride [Moles/Vol] 99 mmol/L Normal 98-107 [facility] Comment on above: Performed By: #### U ACSJAZMIN UMICRO #### [facility] [address] [place] [address] Dr. Ashwin Key CO2 [Moles/Vol] 33.7 mmol/L Critically high 21.0-32.0 [facility] Comment on above: Performed By: #### U ACSJAZMIN UMICRO #### [facility] [address] [place] [address] Dr. Ashwin Key Creatinine [Mass/Vol] 1.07 mg/dL Critically high 0.55-1.02 [facility] Comment on above: Performed By: #### U ACSJAZMIN UMICRO #### [facility] [address] [place] [address] Dr. Ashwin Key EGFR-AF MACANESE 60 mL/min/1.73m2 Normal >=60 [facility] Comment on above: Performed By: #### U ACSJAZMIN UMICRO #### [facility] [address] [place] [address] Dr. Ashwin Key EGFR-NON AF MACANESE 50 mL/min/1.73m2 Critically low >=60 [facility] Comment on above: Performed By: #### U ACSIND, UMICRO #### [facility] [address] [address] [address] Ashwin Key Globulin (S) [Mass/Vol] 3.0 g/dL Normal [facility] Comment on above: Performed By: #### U ACSIND, UMICRO #### [facility] [address] [address] [address] Ashwin Key Glucose [Mass/Vol] 76 mg/dL Normal 74-106 [facility] Comment on above: Performed By: #### U ACSIND, UMICRO #### [facility] [address] [address] [address] Ashwin Key Potassium [Moles/Vol] 4.7 mmol/L Normal 3.5-5.1 [facility] Comment on above: Performed By: #### U ACSIND UMICRO #### [facility] [address] [place] [address] Dr. Ashwin Key Protein [Mass/Vol] 6.6 g/dL Normal 6.4-8.2 [facility] Comment on above: Performed By: #### U ACSJAZMIN UMICRO #### [facility] [address] [place] [address] Dr. Ashwin Key Sodium [Moles/Vol] 140 mmol/L Normal 136-145 [facility] Comment on above: Performed By: #### U ACSJAZMIN, UMICRO #### [facility] [address] [place] [address] Dr. Ashwin Key Urea nitrogen [Mass/Vol] 31.0 mg/dL Critically high 7.0-18.0 [facility] Comment on above: Performed By: #### U ACSJAZMIN, UMICRO #### [facility] [address] [place] [address] Dr. Ashwin Key Urea nitrogen/Creatinine [Mass ratio] 29.0 mg/mg Normal [facility] Comment on above: Performed By: #### U ACSIND, UMICRO #### [facility] [address] [place] [address] Dr. Ashwin Key UA RANDOMon 02-07-2022 Bilirubin Ql (U) Negative Normal NEGATIVE [facility] Comment on above: Performed By: #### U A #### [facility] [address] [place] [address] Dr. Ashwin Key Clarity (U) CLEAR Normal CLEAR [facility] Comment on above: Performed By: #### U A #### [facility] [address] [place] [address] Dr. Ashwin Key Color (U) LT. YELLOW Normal YELLOW [facility] Comment on above: Performed By: #### U A #### [facility] [address] [place] [address] Dr. Ashwin Key Glucose Ql (U) Negative Normal NEGATIVE [facility] Comment on above: Performed By: #### U A #### [facility] [address] [place] [address] Dr. Ashwin Key Hemoglobin Ql (U) Negative Normal NEGATIVE [facility] Comment on above: Performed By: #### U A #### [facility] [address] [place] [address] Dr. Ashwin Key Ketones Ql (U) TRACE Abnormal NEGATIVE [facility] Comment on above: Performed By: #### U A #### [facility] [address] [place] [address] Dr. Ashwin Key LEUKOCYTES SMALL Abnormal NEGATIVE [facility] Comment on above: Performed By: #### U A #### [facility] [address] [place] [address] Dr. Ashwin Key Nitrite Ql (U) Positive Abnormal NEGATIVE The [facility] Comment on above: Performed By: #### U A #### [facility] [address] [place] [address] Dr. Ashwin Key pH (U) 6.0 [pH] Normal 5-9 [facility] Comment on above: Performed By: #### U A #### [facility] [address] [place] [address] Dr. Ashwin Key SPEC GRAVITY 1.020 Normal 1.005-<=1.025 [facility] Comment on above: Performed By: #### U A #### [facility] [address] [place], [place] [address] Dr. Ashwin Key UA PROTEIN Negative Normal NEGATIVE/ TRACE [facility] Comment on above: Performed By: #### U A #### [facility] [address] [place], [place] [address] Dr. Ashwin Key Urobilinogen Qn (U) 1.0 {Mercedes'U}/dL Normal 0.2 - 1. 0 [facility] Comment on above: Performed By: #### U A #### [facility] [address] [place], [place] [address] Dr. Ashwin Alvarez (Potassium)on 01-30-2017 Potassium molar conc 4.2 mmol/L Normal 3.7-5.3 [facility] Comment on above: Result Comment: Perf ormed at [address] [place], [place] [id number] [phone] Performed By: #### K ####[address] , [place] [id number] Encounters Encounter Date Encounter Type Care Provider [...] BEE Payers Date Payer Category Payer Medicare [id number] 1960 Medicaid [id number] 1960 Medicare [id number] 1945 Unknown [id number] 2.16.84 [id number] 1945 Unknown [id number] 2.16.84 [id number] 1945 Unknown [id number] 2.16.84 [id number] 1945 Unknown [id number] 2.16.84 [id number] 1945 Unknown [id number] 2.16.84 [id number] Summary Purpose Family History No Family History Records FoundNo Family History Records Found Advance Directives No Advanced Directives Records FoundNo Advanced Directives Records Found Additional Source Comments INFORMATION SOURCE (unrecogn ized section and content) DATE CREATED AUTHOR 11/08/2017 [facility] DATE CREATED AUTHOR [facility] 09/09/2022 [facility] FOR RECORDS PERTAINING TO PATIENTS [...] BE BASED ON THE PRIMARY CLINICAL RECORDS. [facility] [email or web address] provides no warranty or guarantee of the accuracy or completeness of information in this document.
[2023-11-13 13:50] LABS: Basophils Percent Auto 0.4 % (0.2-2.0); Hematocrit 40.6 % (36.0-48.0); Hemoglobin 11.8 g/dL (12.0-16.0); Immature Granulocytes Abs Auto 0.08 10^3/uL (0.00-0.03); Immature Granulocytes Pct Auto 0.8 % (0.0-0.5); Lymphocytes Absolute Auto 1.5 10^3/uL (1.2-3.8); Lymphocytes Percent Auto 14.3 % (20.5-60.0); Mean Corpuscular HGB Conc 29.1 g/dL (29.9-35.2); Mean Corpuscular Hemoglobin 28.2 pg (26.7-34.0); Mean Corpuscular Volume 97.1 fL (81.0-99.0); Mean Platelet Volume 10.4 fL (9.5-13.5); Monocytes Absolute Auto 0.5 10^3/uL (0.3-0.8); Monocytes Percent Auto 5.2 % (1.7-12.0); Neutrophils Absolute Auto 8.1 10^3/uL (1.4-6.5); Neutrophils Percent Auto 79.3 % (43.0-75.0); Platelet Count 271 10^3/uL (150-450); Red Blood Count 4.18 10^6/uL (4.20-5.40); Red Cell Distribution Width 15.7 % (11.0-15.0); White Blood Count 10.2 10^3/uL (4.0-11.0)
[2023-11-13 14:03] LABS: Anion Gap 7.6; BUN Creatinine Ratio 20.2; Calcium 8.2 mg/dL (8.5-10.1); Carbon Dioxide 34.3 mmol/L (21.0-32.0); Chloride 105 mmol/L (98-107); Estimated GFR (African America >60 (>=60); Estimated GFR (Non-African Ame 51 (>=60); Glucose 123 mg/dL (74-106); Potassium 3.9 mmol/L (3.5-5.1); Sodium 143 mmol/L (136-145)
[2023-11-13] MEDS: MORPHINE SULFATE 4 MG/ML VIAL IV (14:21)
[2023-11-13] MEDS: MORPHINE SULFATE 4 MG/ML VIAL 2 MG IV (15:04)
[2023-11-13 17:33] VITALS: BP 109/57; PULSE 82; O2SAT 95
--- NOTE | 2023-11-13 19:00 | PC.NURSE ---
pt report called to [facility] RN. All questions and concerns addressed. Respirations e/u, skin is w/d/n.
[2023-11-13 19:24] VITALS: BP 100/0; PULSE 62; TEMP 36.6; O2SAT 94
== END 2023-11-13 19:45 | disposition short-term general hospital (02) ==
PROVIDERS: Emergency Provider Emergency Medicine; PCP Family Medicine
DX: S72.92XA Unspecified fracture of left femur, initial encounter for closed fracture (principal); W19.XXXA Unspecified fall, initial encounter; F03.90 Unspecified dementia, unspecified severity, without behavioral disturbance, psychotic disturbance, mood disturbance, and anxiety; I48.91 Unspecified atrial fibrillation; Z79.01 Long term (current) use of anticoagulants; Z96.642 Presence of left artificial hip joint; Z96.652 Presence of left artificial knee joint
CPT/HCPCS: 36415; 51702; 72170; 73552; 80048; 85025; 93005; 96374; 96376; 99285; J2270

== ENCOUNTER 2023-11-27 00:05 | Inpatient (IN) | payer MEDICARE, MEDICAID, SELFPAY ==
[2023-11-27] VITALS (32 sets, daily range): BP systolic 82–120; BP diastolic 48–82; PULSE 48–130; TEMP 36.4–36.7; O2SAT 68–100; BMI 38.0; BMI 41.3
--- NOTE | 2023-11-27 00:11 | ECG_ITS ---
The [facility] Test Date: 2023-11-27 Pat Name: FRANSISCO MENON Department: Room: - Gender: Female Deposition Operator: : 1945 Requested By: [id number] Order Number: [id number] Reading MD: IRWIN MORA Measurements Intervals Jenkins Rate: 86 P: -52912 [place]: -[address] QRS: 57 QRSD: 86 T: 46 QT: 328 QTc: 372 Interpretive Statements 1210 Atrial fibrillation 8102 Low QRS voltage in chest leads 9140 abnormal rhythm ECG Compared to ECG 11/13/2023 13:19:27 Low QRS voltage now present Ventricular premature complex(es) no longer present Electronically Signed On 11-27-2023 5:32:27 EDT by IRWIN MORA
--- NOTE | 2023-11-27 00:33 | XR_ITS ---
The [address] [address] Patient Name: FRANSISCO MENON MRN: [id number] date: 1945 Sex: F Assigned Patient Location: ER Current Patient Location: ER Accession/Order Number: [id number] Exam Date: 11/27/2023 01:00 Report Date: 11/27/2023 02:59 At the request of: TIMMY MARKER Procedure: XR humerus LT EXAM: XR humerus LT, XR shoulder LT min 2V HISTORY: Bruising noted COMPARISON: None. TECHNIQUE: 2 views of the left humerus, 4 views left shoulder. FINDINGS: There is no acute fracture. Soft tissue swelling versus severe obesity. The humeral head abuts the undersurface of the acromium. 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 No radiopaque foreign body. XR/XR humerus LT IMPRESSION: 1. No acute fracture. 2. Chronic massive retracted rotator cuff tear. 3. Generalized edema versus morbid obesity. Electronically authenticated by: KARIS ZAPATA Date: 11/27/2023 02:59
--- NOTE | 2023-11-27 00:34 | XR_ITS ---
The [address] [address] Patient Name: FRANSISCO MENON MRN: [id number] date: 1945 Sex: F Assigned Patient Location: ER Current Patient Location: ER Accession/Order Number: [id number] Exam Date: 11/27/2023 01:00 Report Date: 11/27/2023 02:59 At the request of: TIMMY MARKER Procedure: XR shoulder LT min 2V EXAM: XR humerus LT, XR shoulder LT min 2V HISTORY: Bruising noted COMPARISON: None. TECHNIQUE: 2 views of the left humerus, 4 views left shoulder. FINDINGS: There is no acute fracture. Soft tissue swelling versus severe obesity. The humeral head abuts the undersurface of the acromium. 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 No radiopaque foreign body. XR/XR shoulder LT min 2V IMPRESSION: 1. No acute fracture. 2. Chronic massive retracted rotator cuff tear. 3. Generalized edema versus morbid obesity. Electronically authenticated by: KARIS ZAPATA Date: 11/27/2023 02:59
--- NOTE | 2023-11-27 00:34 | ED_ITS ---
HPI - SOB/Dyspnea General Chief Complaint: Shortness of Breath/Dyspnea Stated Complaint: OTHER Time Seen by Provider: 11/27/23 00:06 Source: patient Mode of arrival: ambulance Limitations: no limitations and other (Poor historian/hx dementia) Limitations comment: as above History of Present Illness HPI Narrative: This 78-year-old female who was seen in this emergency department on November 12, 2 weeks ago for a left femur fracture and transferred to [facility] for surgery and then sent back to local F is transferred from the [facility] for evaluation of shortness of breath and low pulse ox. The patient denies a history of COPD. She is on Eliquis. According to her record she does have a history of congestive heart failure. She denies any complaint of pain but is grunting when she breathes. She states she is mildly short of breath. The patient is noted to have marked bruising to the left upper extremity with some tenderness over her left shoulder and circumferential bruising to the left upper arm and left lower arm. The patient states this is from a fall. She thinks she fell at home but clearly has not been home in the past several weeks. She also has bruising which is less severe to the right upper extremity. Her surgical site is covered and does not appear to be erythematous around the dressing. She was not noted to have a fever. She does not know when she left the hospital and was transferred to the [facility]. She is on 20 mg of Lasix on a daily basis. CODE STATUS is DNR comfort care MD elicited complaint: shortness of breath Related Data Home Medications ?Medication ?Instructions ?Recorded ?Confirmed acetaminophen 500 mg capsule 1,000 mg PO Q6H 11/13/23 11/27/23 ammonium lactate 12 % lotion 1 applic topical BID PRN dry skin 11/13/23 11/27/23 aspirin 81 mg chewable tablet 81 mg PO DAILY 11/13/23 11/27/23 atorvastatin 40 mg tablet 40 mg PO QPM 11/13/23 11/27/23 baclofen 20 mg tablet 20 mg PO QPM 11/13/23 11/27/23 cholecalciferol (vitamin D3) 1,250 1,250 mcg PO QWEEK 11/13/23 11/27/23 mcg (50,000 unit) capsule folic acid 1 mg tablet 1 mg PO .QD 11/13/23 11/27/23 furosemide 20 mg tablet 40 mg PO DAILY 11/13/23 11/27/23 levothyroxine 100 mcg tablet 100 mcg PO .ACB 11/13/23 11/27/23 lidocaine 4 % topical patch 1 patch topical DAILY 11/13/23 11/27/23 (Aspercreme (lidocaine)) loperamide 2 mg capsule 2 mg PO BID PRN loose stool 11/13/23 11/27/23 melatonin 3 mg capsule 3 mg PO .QHS 11/13/23 11/27/23 menthol 5 % topical gel (Biofreeze 1 ea topical .Q8 PRN pain 11/13/23 11/27/23 (menthol)) morphine 15 mg tablet,extended 15 mg PO Q8H 11/13/23 11/27/23 release nystatin 100,000 unit/gram topical 1 applic topical .QD 11/13/23 11/27/23 powder ondansetron HCl 4 mg tablet 4 mg PO Q6H PRN nausea and vomiting 11/13/23 11/27/23 oxycodone 5 mg tablet 5 mg PO Q6H PRN pain 11/13/23 11/27/23 potassium citrate 10 mEq (1,080 10 meq PO QID 11/13/23 11/27/23 mg) tablet,extended release sertraline 25 mg tablet 75 mg PO BEDTIME 11/13/23 11/27/23 cephalexin 500 mg capsule 500 mg PO TID 11/27/23 11/27/23 dextromethorphan-guaifenesin 10 1 tab-cap PO BID PRN cough 11/27/23 11/27/23 mg-200 mg capsule (Coricidin HBP Chest Congestion-Cough) enoxaparin 40 mg/0.4 mL 40 mg subcut DAILY 11/27/23 11/27/23 subcutaneous syringe (Lovenox) hexylresorcinol 1 otis mucous membrane DAILY PRN 11/27/23 11/27/23 sore throat wound dressings (Triad Wound 1 applic topical TID 11/27/23 11/27/23 Dressing paste) Allergies Allergy/AdvReac Type Severity Reaction Status Date / Time No Known Drug Allergies Allergy Verified 11/27/23 00:15 Review of Systems ROS Status of ROS 10 or more systems reviewed and unremark able except as noted in history and below Exam Narrative Exam Narrative: Vital signs and Nursing Notes reviewed: Patient is afebrile with a normal pulse, she is tachypneic with respiratory rate of 26 and hypoxic with pulse ox of 83% on room air General: Awake, alert confused to recent events, mild respiratory difficulty, obese elderly female HEENT: Normocephalic atraumatic, mucous membranes are moist and pink, eyes are clear, normal conjunctiva, vision is grossly intact Neck: Supple, no JVD appreciated Chest: Lungs are diffusely diminished, patient is grunting when she breathes- she resists any attempt to sit up,even with assistance, so that I could listen to her lungs CVS: Regular rate and rhythm consistent with atrial fibrillation 86 bpm, normal axis, nonspecific ST changes, no acute ST segment elevation or T wave inversion ABD: Soft, nondistended, nontender, no rebound guarding or rigidity, bowel sounds are normal, no pulsatile masses appreciated Extremities: Right upper extremity is ecchymotic and generally tender, ecchymosis is mostly in the forearm area, there is no tenderness to hand or wrist, left upper extremity is markedly ecchymotic with an area of bruising and tenderness to the anterior shoulder area and ecchymosis from the shoulder to the hand, the ecchymosis is circumferential in the left upper arm and lower arm. She is able to move her fingers. Radial pulses brisk. The left leg surgical site is covered with a dressing without any notable drainage or erythema Skin: Marked bruising of the upper extremities as described above Neuro: Confused as to recent events, no facial droop, speech is clear, no gross focal deficits Constitutional Vital Signs, click to edit/add: Last Vital Signs Temp 97.7 F 11/27/23 00:08 Pulse 91 H 11/27/23 02:30 Resp 21 H 11/27/23 02:30 BP 90/58 11/27/23 02:22 Pulse Ox 100 11/27/23 02:30 O2 Del Method Simple Mask 11/27/23 00:45 O2 Flow Rate 6 11/27/23 00:45 Course Vital Signs Vital signs: Vital Signs Temperature 97.7 F 11/27/23 00:08 Pulse Rate 91 H 11/27/23 00:08 Respiratory Rate 26 H 11/27/23 00:08 Blood Pressure 90/58 11/27/23 00:08 Pulse Oximetry 83 L 11/27/23 00:08 Oxygen Delivery Method Room Air 11/27/23 00:08 Temperature 97.7 F 11/27/23 00:08 Pulse Rate 91 H 11/27/23 02:30 Respiratory Rate 21 H 11/27/23 02:30 Blood Pressure 90/58 11/27/23 02:22 Pulse Oximetry 100 11/27/23 02:30 Oxygen Delivery Method Simple Mask 11/27/23 00:45 Oxygen Delivery Flow Rate 6 11/27/23 00:45 MDM - SOB/Dyspnea MDM Narrative Medical decision making narrative: This 78-year-old female was transferred from the extended care facility where she is currently residing for episodes of oxygen desaturation. The patient does not typically wear oxygen but was noted to be hypoxic when her pulse ox was taken. She is on Lovenox 40 mg daily at this time. She is status post left femur fracture surgery at [facility]. According to the report that we received from the [place] [facility] the patient received 5 units of blood while at [facility]. She does not have a history of COPD. She has a history of being confused/dementia according to the [place] [facility] staff. In the emergency department she was unable to give any reliable history but thought that she had fallen causing extensive bruising to her left upper extremity. She has a contusion at the anterior left shoulder and marked, diffuse ecchymosis involving the entire left upper extremity except the hand. She also has marked bruising of the right upper extremity. There is a dressing covering her surgical site on her left leg. Upon arrival she was noted to be mildly hypoxic with pulse ox of 83% and was placed on a nonrebreather with clinical improvement. She complains of diffuse pain and was medicated with 4 mg of IV morphine and 4 mg of Zofran. EKG done upon arrival was atrial fibrillation, rate controlled at 86. Routine labs are reviewed. She has a mildly elevated white count at 11.8. Hemoglobin is 8.1, platelet count is normal at 194. She has a normal troponin. BNP is elevated at 7318. Electrolytes are essentially normal but calcium is mildly low at 7.6. X- rays of the left shoulder and humerus do not show any acute fracture. Chest x- ray shows a perihilar opacity but is a limited study. She was medicated with IV zosyn for the questionable pneumonia and she was given 40 mg of IV Lasix for the elevated BNP. A pure wick device was used to collect her urine. Her CODE STATUS is DNR comfort care. This paperwork was faxed from the [place] [facility]. Case was discussed with the hospitalist and the patient accepted for admission, MedSurg, observation status Medical Records Medical records narrative: The [address] [address] XRay Report Signed Patient: FRANSISCO MENON MR#: [id number] : 1945 Acct:[id number] Age/Sex: 78 / F ADM Date: 11/27/23 Loc: ER Attending Dr: Ordering Physician: Rajni Kam Date of Service: 11/27/23 Procedure(s): XR chest 1V Accession Number(s): [id number] cc: PRANAV CAMPOS ; Rajni Kam~ The [address] [address] Patient Name: FRANSISCO MENON MRN: [facility]:[id number] date: 1945 Sex: F Assigned Patient Location: ER Current Patient Location: ED.MAIN Accession/Order Number: [id number] Exam Date: 11/27/2023 02:03 Report Date: 11/27/2023 02:36 At the request of: RAJNI KMA Procedure: XR chest 1V SINGLE VIEW CHEST: 11/27/2023 2:03 AM EDT CLINICAL HISTORY:SOB COMPARISONS: None. TECHNIQUE: Single frontal view of the chest, utilizing portable technique. Portable radiography should be considered a technically compromised study. Strongly consider dedicated PA and lateral chest radiographs, as clinically indicated. FINDINGS/IMPRESSION: XR/XR chest 1V IMPRESSION: 1. Diminished lung volumes limits assessment. Right perihilar opacity. Left basilar scarring and atelectasis. 2. Sternotomy. 3. Upper limits normal heart size without pulmonary venous congestion. 4. No pneumothorax or pleural effusion. This report was generated with voice recognition software. Effort has been made to ensure accuracy of this report, however, occasional wording errors may persist. Please contact our office with any questions. Electronically authenticated by: ORLIN ARAUZ Date: 11/27/2023 02:36 Lab Data Labs: Lab Results 11/27/23 Range/Units 01:09 WBC 11.9 H (4.0-11.0) 10^3/uL RBC 2.69 L (4.20-5.40) 10^6/uL Hgb 8.1 L (12.0-16.0) g/dL Hct 29.0 L (36.0-48.0) % MCV 107.8 H (81.0-99.0) fL MCH 30.1 (26.7-34.0) pg MCHC 27.9 L (29.9-35.2) g/dL RDW 23.7 H (11.0-15.0) % Plt Count 194 (150-450) 10^3/uL MPV 10.2 (9.5-13.5) fL Neut % (Auto) 84.0 H (43.0-75.0) % Lymph % (Auto) 9.0 L (20.5-60.0) % [place] % (Auto) 5.1 (1.7-12.0) % Eos % (Auto) 0.0 L (0.9-7.0) % Baso % (Auto) 0.2 (0.2-2.0) % Neut # (Auto) 10.0 H (1.4-6.5) 10^3/uL Lymph # (Auto) 1.1 L (1.2-3.8) 10^3/uL [place] # (Auto) 0.6 (0.3-0.8) 10^3/uL Eos # (Auto) 0.0 (0.0-0.7) 10^3/uL Baso # (Auto) 0.0 (0.0-0.1) 10^3/uL Abs Immat Gran (auto) 0.20 H (0.00-0.03) 10^3/uL Imm/Tot Granulo (auto) 1.7 H (0.0-0.5) % Sodium 138 (136-145) mmol/L Potassium 5.3 H (3.5-5.1) mmol/L Chloride 105 (98-107) mmol/L Carbon Dioxide 30.6 (21.0-32.0) mmol/L Anion Gap 7.7 BUN 37.0 H (7.0-18.0) mg/dL Creatinine 0.92 (0.55-1.02) mg/dL Est GFR ( Amer) >60 (>=60) Est GFR (Non-Af Amer) 59 L (>=60) BUN/Creatinine Ratio 40.2 Glucose 103 (74-106) mg/dL Lactate 1.4 (0.4-2.0) mmol/L Calcium 7.6 L (8.5-10.1) mg/dL Total Bilirubin 1.3 H (0.2-1.0) mg/dL AST 21 (15-37) U/L ALT 22 (14-59) U/L Alkaline Phosphatase 105 (46-116) U/L Troponin I High Sens 5.6 (4.0-51.3) pg/mL NT-Pro-B Natriuret Pep 7318.0 H* (<=1800.0) pg/mL Total Protein 5.1 L (6.4-8.2) g/dL Albumin 1.4 L (3.4-5.0) g/dL Globulin 3.7 g/dL Albumin/Globulin Ratio 0.4 Discharge Plan Discharge Chief Complaint: Shortness of Breath/Dyspnea Clinical Impression: Dyspnea, Anemia, Bruise of both arms, CHF (congestive heart failure) Patient Disposition: Admitted as Observation Time of Disposition Decision: 02:34 Condition: Fair
[2023-11-27 01:14] LABS: Basophils Percent Auto 0.2 % (0.2-2.0); Hemoglobin 8.1 g/dL (12.0-16.0); Immature Granulocytes Pct Auto 1.7 % (0.0-0.5); Lymphocytes Absolute Auto 1.1 10^3/uL (1.2-3.8); Mean Corpuscular HGB Conc 27.9 g/dL (29.9-35.2); Mean Corpuscular Hemoglobin 30.1 pg (26.7-34.0); Mean Corpuscular Volume 107.8 fL (81.0-99.0); Mean Platelet Volume 10.2 fL (9.5-13.5); Monocytes Absolute Auto 0.6 10^3/uL (0.3-0.8); Monocytes Percent Auto 5.1 % (1.7-12.0); Platelet Count 194 10^3/uL (150-450); Red Blood Count 2.69 10^6/uL (4.20-5.40); Red Cell Distribution Width 23.7 % (11.0-15.0); White Blood Count 11.9 10^3/uL (4.0-11.0)
[2023-11-27 01:30] LABS: Alanine Aminotransferase 22 U/L (14-59); Albumin Globulin Ratio 0.4; Albumin Level 1.4 g/dL (3.4-5.0); Alkaline Phosphatase 105 U/L (46-116); Anion Gap 7.7; Aspartate Amino Transferase 21 U/L (15-37); BUN Creatinine Ratio 40.2; Bilirubin Total 1.3 mg/dL (0.2-1.0); Calcium 7.6 mg/dL (8.5-10.1); Carbon Dioxide 30.6 mmol/L (21.0-32.0); Chloride 105 mmol/L (98-107); Estimated GFR (African America >60 (>=60); Estimated GFR (Non-African Ame 59 (>=60); Globulin 3.7 g/dL; Glucose 103 mg/dL (74-106); Potassium 5.3 mmol/L (3.5-5.1); Sodium 138 mmol/L (136-145); Total Protein 5.1 g/dL (6.4-8.2)
[2023-11-27 01:32] LABS: Lactate/Lactic Acid 1.4 mmol/L (0.4-2.0)
[2023-11-27 01:39] LABS: Troponin I High Sensitivity 5.6 pg/mL (4.0-51.3)
--- NOTE | 2023-11-27 01:53 | XR_ITS ---
The [address] [address] Patient Name: FRANSISCO MENON MRN: [id number] date: 1945 Sex: F Assigned Patient Location: ER Current Patient Location: ED.MAIN Accession/Order Number: [id number] Exam Date: 11/27/2023 02:03 Report Date: 11/27/2023 02:36 At the request of: TIMMY MARKER Procedure: XR chest 1V SINGLE VIEW CHEST: 11/27/2023 2:03 AM EDT CLINICAL HISTORY:SOB COMPARISONS: None. TECHNIQUE: Single frontal view of the chest, utilizing portable technique. Portable radiography should be considered a technically compromised study. Strongly consider dedicated PA and lateral chest radiographs, as clinically indicated. FINDINGS/IMPRESSION: XR/XR chest 1V IMPRESSION: 1. Diminished lung volumes limits assessment. Right perihilar opacity. Left basilar scarring and atelectasis. 2. Sternotomy. 3. Upper limits normal heart size without pulmonary venous congestion. 4. No pneumothorax or pleural effusion. This report was generated with voice recognition software. Effort has been made to ensure accuracy of this report, however, occasional wording errors may persist. Please contact our office with any questions. Electronically authenticated by: ORLIN ARAUZ Date: 11/27/2023 02:36
[2023-11-27] MEDS: MORPHINE SULFATE 4 MG/ML VIAL IV (01:55)
[2023-11-27] MEDS: FUROSEMIDE 40 MG/4 ML VIAL IVP (03:00)
[2023-11-27] MEDS: PIPERACILLIN SODIUM/TAZOBACTAM 3.375 GM in 0.9 % SODIUM CHLORIDE 50 ML IV ×3 (03:56→19:31)
--- NOTE | 2023-11-27 04:46 | PHOTOS ---
left upper arm
--- NOTE | 2023-11-27 04:54 | PHOTOS ---
bilat frontal lower legs
[2023-11-27 06:36] LABS: Magnesium 1.9 mg/dL (1.8-2.4); Thyroid Stimulating Hormone 7.889 uIU/mL (0.358-3.740)
--- NOTE | 2023-11-27 07:55 | P.HP_ITS ---
HPI H&P: HPI History of Present Illness Chief complaint: Post Op Wound Narrative: Patient presented to the emergency room with increasing hypoxia, unable to keep oxygen up at her long-term, she has a recent history of fractured femur with repair, large open wound on left leg. In ER found to have acute combined congestive heart failure, admitted for workup and treatment of same. When I saw patient up on the medical surgical floor, seen to be resting comfortably, difficult to assess because she just does not move. Unable to assess conversational dyspnea as her speech is garbled as a baseline. And currently wearing a nonrebreather mask. History obtained from chart, no family around Opioid HPI Opioid Management Most Recent Pain and Opioid Data: Last Pain Scale 9 11/27/23 13:21 Last Pain Intensity 6 11/27/23 13:21 Last Pain Assessment 11/27/23 14:00 Last MAR Pain Assessment 11/27/23 06:42 Last ORT Total Score 0 11/27/23 05:15 Last ORT Risk Category Low Risk 11/27/23 05:15 Review of Systems ROS Status of ROS 10 or more systems reviewed and unremark able except as noted in history and below [facility] Medical History (Updated 11/27/23 @ 03:14 by Mikaela Delgadillo) Protein-calorie malnutrition ?E46 - Unspecified protein-calorie malnutrition (ICD-10) Abnormal posture ?R29.3 - Abnormal posture (ICD-10) Hypertension ?I10 - Essential (primary) hypertension (ICD-10) Morbid obesity ?E66.01 - Morbid (severe) obesity due to excess calories (ICD-10) Insomnia ?G47.00 - Insomnia, unspecified (ICD-10) GERD (gastroesophageal reflux disease) ?K21.9 - Gastro-esophageal reflux disease without esophagitis (ICD-10) Sick sinus syndrome ?I49.5 - Sick sinus syndrome (ICD-10) Atrial fibrillation ?I48.91 - Unspecified atrial fibrillation (ICD-10) Delusional disorder ?F22 - Delusional disorders (ICD-10) Tinea unguium ?B35.1 - Tinea unguium (ICD-10) Kidney failure ?N19 - Unspecified kidney failure (ICD-10) Chronic pain ?G89.29 - Other chronic pain (ICD-10) Hypoxemia ?R09.02 - Hypoxemia (ICD-10) Pulmonary embolism ?I26.99 - Other pulmonary embolism without acute cor pulmonale (ICD-10) Dementia ?F03.90 - Unspecified dementia, unspecified severity, without behavioral disturbance, psychotic disturbance, mood disturbance, and anxiety (ICD-10) Cognitive communication deficit ?R41.841 - Cognitive communication deficit (ICD-10) Osteoarthritis ?M19.90 - Unspecified osteoarthritis, unspecified site (ICD-10) Depression ?F32.A - Depression, unspecified (ICD-10) DNR (do not resuscitate) ?Z66 - Do not resuscitate (ICD-10) Hypothyroid ?E03.9 - Hypothyroidism, unspecified (ICD-10) Pressure ulcer of coccygeal region, stage 2 ?L89.152 - Pressure ulcer of sacral region, stage 2 (ICD-10) Social History Highest level of school completed/degree received: don't know Meds Home Medications and Allergies Home Medications ?Medication ?Instructions ?Recorded ?Confirmed ?Type acetaminophen 500 mg capsule 1,000 mg PO Q6H 11/13/23 11/27/23 History ammonium lactate 12 % lotion 1 applic topical BID PRN dry skin 11/13/23 11/27/23 History aspirin 81 mg chewable tablet 81 mg PO DAILY 11/13/23 11/27/23 History atorvastatin 40 mg tablet 40 mg PO QPM 11/13/23 11/27/23 History baclofen 20 mg tablet 20 mg PO QPM 11/13/23 11/27/23 History cholecalciferol (vitamin D3) 1,250 1,250 mcg PO QWEEK 11/13/23 11/27/23 History mcg (50,000 unit) capsule folic acid 1 mg tablet 1 mg PO .QD 11/13/23 11/27/23 History furosemide 20 mg tablet 40 mg PO DAILY 11/13/23 11/27/23 History levothyroxine 100 mcg tablet 100 mcg PO .ACB 11/13/23 11/27/23 History lidocaine 4 % topical patch 1 patch topical DAILY 11/13/23 11/27/23 History (Aspercreme (lidocaine)) loperamide 2 mg capsule 2 mg PO BID PRN loose stool 11/13/23 11/27/23 History melatonin 3 mg capsule 3 mg PO .QHS 11/13/23 11/27/23 History menthol 5 % topical gel (Biofreeze 1 ea topical .Q8 PRN pain 11/13/23 11/27/23 History (menthol)) morphine 15 mg tablet,extended 15 mg PO Q8H 11/13/23 11/27/23 History release nystatin 100,000 unit/gram topical 1 applic topical .QD 11/13/23 11/27/23 History powder ondansetron HCl 4 mg tablet 4 mg PO Q6H PRN nausea and vomiting 11/13/23 11/27/23 History oxycodone 5 mg tablet 5 mg PO Q6H PRN pain 11/13/23 11/27/23 History potassium citrate 10 mEq (1,080 10 meq PO QID 11/13/23 11/27/23 History mg) tablet,extended release sertraline 25 mg tablet 75 mg PO BEDTIME 11/13/23 11/27/23 History cephalexin 500 mg capsule 500 mg PO TID 11/27/23 11/27/23 History dextromethorphan-guaifenesin 10 1 tab-cap PO BID PRN cough 11/27/23 11/27/23 History mg-200 mg capsule (Coricidin HBP Chest Congestion-Cough) enoxaparin 40 mg/0.4 mL 40 mg subcut DAILY 11/27/23 11/27/23 History subcutaneous syringe (Lovenox) hexylresorcinol 1 otis mucous membrane DAILY PRN 11/27/23 11/27/23 History sore throat wound dressings (Triad Wound 1 applic topical TID 11/27/23 11/27/23 History Dressing paste) Allergies Allergy/AdvReac Type Severity Reaction Status Date / Time No Known Drug Allergies Allergy Verified 11/27/23 00:15 Exam Constitutional Vital Signs, click to edit/add: Last Vital Signs Temp 97.6 F 11/27/23 07:40 Pulse 48 L 11/27/23 07:40 Resp 13 11/27/23 06:00 BP 106/48 L 11/27/23 07:40 Pulse Ox 87 L 11/27/23 07:40 O2 Del Method Nonrebreather 11/27/23 07:40 O2 Flow Rate 6 11/27/23 00:45 Documenting provider has reviewed patient's vital signs: yes Common normals: no apparent distress Chest Common normals: inspection of chest normal and palpation of chest normal Respiratory Common normals: normal respiratory effort and no retractions Auscultation: rales Cardio Common normals: regular rate and regular rhythm GI Common normals: Normal to inspection, nondistended, normoactive bowel sounds present, soft to palpation, non-tender and no masses Extremity Common normals: abnormal to inspection (Edema bilateral lower extremities 3+, open wound left thigh lateral) Results Labs Labs: Short CBC 11/27/23 11/27/23 Range/Units 01:09 06:06 WBC 11.9 H (4.0-11.0) 10^3/uL Hgb 8.1 L 8.0 L (12.0-16.0) g/dL Hct 29.0 L 27.0 L (36.0-48.0) % Plt Count 194 (150-450) 10^3/uL BMP 11/27/23 01:09 Sodium 138 Potassium 5.3 H Chloride 105 Carbon Dioxide 30.6 BUN 37.0 H Creatinine 0.92 Glucose 103 Calcium 7.6 L Liver Function 11/27/23 Range/Units 01:09 Total Bilirubin 1.3 H (0.2-1.0) mg/dL AST 21 (15-37) U/L ALT 22 (14-59) U/L Alkaline Phosphatase 105 (46-116) U/L Albumin 1.4 L (3.4-5.0) g/dL Assessment and Plan Assessment and Plan (1) CHF (congestive heart failure): (2) Bruise of both arms: (3) Anemia: (4) Femur fracture, left: Plan Admission findings: Sinus tachycardia, respiratory distress, significant hypoxia with O2 sat of 68%, leukocytosis, secondary to right middle lobe pneumonia resulting in sepsis-IV antibiotics, blood culture, sputum culture Right lower lobe pneumonia-see as outlined above 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 as outlined above-Kaur camarena today. Open wound left thigh from previous fracture-consult orthopedics, antibiotics as outlined above Severe protein calorie malnutrition-diet management plus protein supplementation Bruises over left shoulder, x-ray negative Iron deficiency anemia-monitor daily Hyperkalemia-diuresis likely to improve, monitor daily Hypothyroidism-adjust doses, TSH significantly elevated, with the heart failure give 1 dose of IV Synthroid on top of her daily dose plus increase her daily dose Admission status: Patient with severe hypoxia, right middle lobe pneumonia resulting in acute combined congestive heart failure-medically necessary to we will span 2 midnights-inpatient status
[2023-11-27 08:41] LABS: Bilirubin Urine NEGATIVE (NEGATIVE); Blood Urine NEGATIVE (NEGATIVE); Clarity Urine CLEAR (CLEAR); Color Urine LT. YELLOW (YELLOW); Glucose Urine UA NEGATIVE (NEGATIVE); Ketones Urine NEGATIVE (NEGATIVE); Leukocyte Esterase Urine NEGATIVE (NEGATIVE); Nitrite Urine NEGATIVE (NEGATIVE); Protein Urine NEGATIVE (NEG/TRACE); Urobilinogen Urine 0.2 EU/dL (0.2-1.0); pH Urine 5.5 (5.0-9.0)
[2023-11-27 08:53] LABS: Bacteria Urine TRACE #/HPF (NONE SEEN); Cast Seen? NONE SEEN #/LPF (NONE SEEN); Crystals Seen? None Seen #/HPF (None Seen); Mucus Urine NONE SEEN (NONE SEEN); RBC Urine NONE SEEN #/HPF (0-2); Squamous Epithelial Cell Urine RARE #/LPF (NONE/RARE); Urine Culture Indicated ALREADY ORDERED; WBC Urine 0-2 #/HPF (NONE SEEN)
--- NOTE | 2023-11-27 08:53 | CM.NOTE ---
Rounds made with Dr. Islas. Continue with current treatment plan. No discharge today.
[2023-11-27] MEDS: SODIUM CHLORIDE IV (09:12)
[2023-11-27] MEDS: LEVOTHYROXINE SODIUM IV (09:12)
[2023-11-27] MEDS: PROSTAT 15 GM PROTEIN/100 CAL 30 ML LIQUID PACKET PO (09:12)
[2023-11-27] MEDS: ENSURE HP 237 ML LIQUID PO (09:12)
[2023-11-27] MEDS: ENOXAPARIN SODIUM 40 MG/0.4 ML SYRINGE SUBQ (09:12)
[2023-11-27] MEDS: ASPIRIN 81 MG TAB.CHEW PO (09:12)
--- NOTE | 2023-11-27 09:20 | SWNOTE1 ---
EDISON reached out to Mary Kay at [facility] and pt is there skilled, she does NOT require a precert to return due to her the way her insurance is set up.
[2023-11-27] MEDS: VANCOMYCIN HCL 1,000 MG in 0.9 % SODIUM CHLORIDE 250 ML 250 MG IV (10:02)
[2023-11-27] MEDS: BUMETANIDE 10 MG in 0.9 % SODIUM CHLORIDE 160 ML 20 MG IV (10:18)
--- NOTE | 2023-11-27 11:39 | SWNOTE1 ---
SW did ask Mary Kay at [facility] if pt had any family, she voiced only a guardian, who is not family.
--- NOTE | 2023-11-27 12:09 | SWNOTE1 ---
SW attempted to call pt's guardian, but he did not answer. SW did not leave a message on voicemail. SW to try again later today. Pt is not alert and oriented x 3 for SW to complete assessment or completed Important Message from Medicare form.
--- NOTE | 2023-11-27 13:01 | SWNOTE1 ---
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 Per Mary Kay at [facility] she has not ambulated in years. 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 She was toe touch weight bearing but they are not doing that since she is a dayana. SW udpated nursing with this information as well.
[2023-11-27] MEDS: WOUND DRESSINGS TP (13:38)
--- NOTE | 2023-11-27 14:10 | P.ORCN_ITS ---
History of Present Illness HPI Consult date: 11/27/23 Requesting physician: Saturnino Islas Chief complaint: Post Op Wound Narrative: The patient is a 78-year-old female with a PMH of CHF, COPD, dementia that presented to the ER earlier today with SOB and was admitted to the hospitalist fpr CHF exacerbation. She does take Eliquis. Orthopedics was consulted as patient is 2 weeks s/p ORIF for a left midshaft femur fracture with a large lateral wound. The patient had this procedure done at [facility] as she also has a left TKA and TRACIE. History unable to be obtained from patient as her speech is somewhat incomprehensible as she has an oxygen mask on. She is in pain with any kind of movement. [facility] Medical History (Updated 11/27/23 @ 14:26 by JUAN DANIEL Nuñez) Protein-calorie malnutrition ?E46 - Unspecified protein-calorie malnutrition (ICD-10) Abnormal posture ?R29.3 - Abnormal posture (ICD-10) Hypertension ?I10 - Essential (primary) hypertension (ICD-10) Morbid obesity ?E66.01 - Morbid (severe) obesity due to excess calories (ICD-10) Insomnia ?G47.00 - Insomnia, unspecified (ICD-10) GERD (gastroesophageal reflux disease) ?K21.9 - Gastro-esophageal reflux disease without esophagitis (ICD-10) Sick sinus syndrome ?I49.5 - Sick sinus syndrome (ICD-10) Atrial fibrillation ?I48.91 - Unspecified atrial fibrillation (ICD-10) Delusional disorder ?F22 - Delusional disorders (ICD-10) Tinea unguium ?B35.1 - Tinea unguium (ICD-10) Kidney failure ?N19 - Unspecified kidney failure (ICD-10) Chronic pain ?G89.29 - Other chronic pain (ICD-10) Hypoxemia ?R09.02 - Hypoxemia (ICD-10) Pulmonary embolism ?I26.99 - Other pulmonary embolism without acute cor pulmonale (ICD-10) Dementia ?F03.90 - Unspecified dementia, unspecified severity, without behavioral disturbance, psychotic disturbance, mood disturbance, and anxiety (ICD-10) Cognitive communication deficit ?R41.841 - Cognitive communication deficit (ICD-10) Osteoarthritis ?M19.90 - Unspecified osteoarthritis, unspecified site (ICD-10) Depression ?F32.A - Depression, unspecified (ICD-10) DNR (do not resuscitate) ?Z66 - Do not resuscitate (ICD-10) Hypothyroid ?E03.9 - Hypothyroidism, unspecified (ICD-10) Pressure ulcer of coccygeal region, stage 2 ?L89.152 - Pressure ulcer of sacral region, stage 2 (ICD-10) Social History Highest level of school completed/degree received: don't know Meds Home Medications and Allergies Home Medications ?Medication ?Instructions ?Recorded ?Confirmed ?Type acetaminophen 500 mg capsule 1,000 mg PO Q6H 11/13/23 11/27/23 History ammonium lactate 12 % lotion 1 applic topical BID PRN dry skin 11/13/23 11/27/23 History aspirin 81 mg chewable tablet 81 mg PO DAILY 11/13/23 11/27/23 History atorvastatin 40 mg tablet 40 mg PO QPM 11/13/23 11/27/23 History baclofen 20 mg tablet 20 mg PO QPM 11/13/23 11/27/23 History cholecalciferol (vitamin D3) 1,250 1,250 mcg PO QWEEK 11/13/23 11/27/23 History mcg (50,000 unit) capsule folic acid 1 mg tablet 1 mg PO .QD 11/13/23 11/27/23 History furosemide 20 mg tablet 40 mg PO DAILY 11/13/23 11/27/23 History levothyroxine 100 mcg tablet 100 mcg PO .ACB 11/13/23 11/27/23 History lidocaine 4 % topical patch 1 patch topical DAILY 11/13/23 11/27/23 History (Aspercreme (lidocaine)) loperamide 2 mg capsule 2 mg PO BID PRN loose stool 11/13/23 11/27/23 History melatonin 3 mg capsule 3 mg PO .QHS 11/13/23 11/27/23 History menthol 5 % topical gel (Biofreeze 1 ea topical .Q8 PRN pain 11/13/23 11/27/23 History (menthol)) morphine 15 mg tablet,extended 15 mg PO Q8H 11/13/23 11/27/23 History release nystatin 100,000 unit/gram topical 1 applic topical .QD 11/13/23 11/27/23 History powder ondansetron HCl 4 mg tablet 4 mg PO Q6H PRN nausea and vomiting 11/13/23 11/27/23 History oxycodone 5 mg tablet 5 mg PO Q6H PRN pain 11/13/23 11/27/23 History potassium citrate 10 mEq (1,080 10 meq PO QID 11/13/23 11/27/23 History mg) tablet,extended release sertraline 25 mg tablet 75 mg PO BEDTIME 11/13/23 11/27/23 History cephalexin 500 mg capsule 500 mg PO TID 11/27/23 11/27/23 History dextromethorphan-guaifenesin 10 1 tab-cap PO BID PRN cough 11/27/23 11/27/23 History mg-200 mg capsule (Coricidin HBP Chest Congestion-Cough) enoxaparin 40 mg/0.4 mL 40 mg subcut DAILY 11/27/23 11/27/23 History subcutaneous syringe (Lovenox) hexylresorcinol 1 otis mucous membrane DAILY PRN 11/27/23 11/27/23 History sore throat wound dressings (Triad Wound 1 applic topical TID 11/27/23 11/27/23 History Dressing paste) Allergies Allergy/AdvReac Type Severity Reaction Status Date / Time No Known Drug Allergies Allergy Verified 11/27/23 00:15 Exam Narrative Exam Narrative: On exam patient is lying in the bed asleep and is arousable by voice. With assistance patient is rolled onto her right side and appears distressed as in pain. On inspection of the postop wound of the left lateral thigh there is a long surgical incision with izabela in place. About midway down the wound there is an area of skin breakdown approximately 3 cm x 7 cm with ecchymosis. The wound drains a nonpurulent serosanguineous fluid with movement of the patient. Constitutional Vital Signs, click to edit/add: Last Vital Signs Temp 98.1 F 11/27/23 11:51 Pulse 71 11/27/23 11:51 Resp 20 11/27/23 11:51 BP 120/82 11/27/23 13:29 Pulse Ox 96 11/27/23 11:51 O2 Del Method Simple Mask 11/27/23 13:29 O2 Flow Rate 15 11/27/23 11:43 Results Labs Labs: Abnormal lab results 11/27/23 11/27/2311/26/24 Range/Units 01:09 03:50 06:06 WBC 11.9 H (4.0-11.0) 10^3/uL RBC 2.69 L (4.20-5.40) 10^6/uL Hgb 8.1 L 8.0 L (12.0-16.0) g/dL Hct 29.0 L 27.0 L (36.0-48.0) % MCV 107.8 H (81.0-99.0) fL MCHC 27.9 L (29.9-35.2) g/dL RDW 23.7 H (11.0-15.0) % Neut % (Auto) 84.0 H (43.0-75.0) % Lymph % (Auto) 9.0 L (20.5-60.0) % Eos % (Auto) 0.0 L (0.9-7.0) % Neut # (Auto) 10.0 H (1.4-6.5) 10^3/uL Lymph # (Auto) 1.1 L (1.2-3.8) 10^3/uL Abs Immat Gran (auto) 0.20 H (0.00-0.03) 10^3/uL Imm/Tot Granulo (auto) 1.7 H (0.0-0.5) % Potassium 5.3 H (3.5-5.1) mmol/L BUN 37.0 H (7.0-18.0) mg/dL Est GFR (Non-Af Amer) 59 L (>=60) Calcium 7.6 L (8.5-10.1) mg/dL Total Bilirubin 1.3 H (0.2-1.0) mg/dL NT-Pro-B Natriuret Pep 7318.0 H* (<=1800.0) pg/mL Total Protein 5.1 L (6.4-8.2) g/dL Albumin 1.4 L (3.4-5.0) g/dL TSH 7.889 H (0.358-3.740) uIU/mL Urine WBC (NONE SEEN) #/HPF Urine Bacteria (NONE SEEN) #/HPF 11/27/23 Range/Units 08:21 WBC (4.0-11.0) 10^3/uL RBC (4.20-5.40) 10^6/uL Hgb (12.0-16.0) g/dL Hct (36.0-48.0) % MCV (81.0-99.0) fL MCHC (29.9-35.2) g/dL RDW (11.0-15.0) % Neut % (Auto) (43.0-75.0) % Lymph % (Auto) (20.5-60.0) % Eos % (Auto) (0.9-7.0) % Neut # (Auto) (1.4-6.5) 10^3/uL Lymph # (Auto) (1.2-3.8) 10^3/uL Abs Immat Gran (auto) (0.00-0.03) 10^3/uL Imm/Tot Granulo (auto) (0.0-0.5) % Potassium (3.5-5.1) mmol/L BUN (7.0-18.0) mg/dL Est GFR (Non-Af Amer) (>=60) Calcium (8.5-10.1) mg/dL Total Bilirubin (0.2-1.0) mg/dL NT-Pro-B Natriuret Pep (<=1800.0) pg/mL Total Protein (6.4-8.2) g/dL Albumin (3.4-5.0) g/dL TSH (0.358-3.740) uIU/mL Urine WBC 0-2 A (NONE SEEN) #/HPF Urine Bacteria Trace A (NONE SEEN) #/HPF H & H 11/27/23 11/27/23 Range/Units 01:09 06:06 Hgb 8.1 L 8.0 L (12.0-16.0) g/dL Hct 29.0 L 27.0 L (36.0-48.0) % All other labs normal. Assessment and Plan Assessment and Plan (1) Postoperative wound breakdown: Assessment and Plan: Patient is approximately 2 weeks out from a left ORIF of her displaced femur fracture. Admitted for CHF exacerbation. - Surgery done at [facility], will need followup with surgeon there. - Wound has an area of skin breakdown but does not appear infected at this time. There is nonpurulent SS drainage from the wound with movement. WBC 11, afebrile. - Dressing changes BID or PRN, try to avoid direct pressure to area of skin breakdown. - Follow up with treating Ortho Surgeon and Wound RN/Clinic when able. Discussed with my Supervising Physician, Dr Mcdonough, who agrees with plan.
[2023-11-28] VITALS (10 sets, daily range): BP systolic 90–111; BP diastolic 52–71; PULSE 54–103; TEMP 36.4–36.8; O2SAT 90–100
[2023-11-28] MEDS: PROSTAT 15 GM PROTEIN/100 CAL 30 ML LIQUID PACKET PO ×3 (00:06→22:06)
[2023-11-28] MEDS: ATORVASTATIN CALCIUM 40 MG TABLET PO ×2 (00:06→22:07)
[2023-11-28] MEDS: SERTRALINE HCL 50 MG TABLET 75 MG PO ×2 (00:06→22:06)
[2023-11-28] MEDS: BACLOFEN 10 MG TABLET 20 MG PO ×2 (00:06→22:06)
[2023-11-28] MEDS: ENSURE HP 237 ML LIQUID PO ×3 (00:07→22:07)
[2023-11-28] MEDS: WOUND DRESSINGS TP ×3 (00:10→22:08)
[2023-11-28] MEDS: VANCOMYCIN HCL 1,000 MG in 0.9 % SODIUM CHLORIDE 250 ML 250 MG IV ×3 (00:12→22:10)
[2023-11-28] MEDS: PIPERACILLIN SODIUM/TAZOBACTAM 3.375 GM in 0.9 % SODIUM CHLORIDE 50 ML IV ×3 (03:50→18:00)
[2023-11-28 07:05] LABS: Basophils Percent Auto 0.1 % (0.2-2.0); Hematocrit 26.9 % (36.0-48.0); Hemoglobin 7.8 g/dL (12.0-16.0); Immature Granulocytes Abs Auto 0.12 10^3/uL (0.00-0.03); Immature Granulocytes Pct Auto 1.1 % (0.0-0.5); Lymphocytes Absolute Auto 1.2 10^3/uL (1.2-3.8); Mean Corpuscular Hemoglobin 30.1 pg (26.7-34.0); Mean Corpuscular Volume 103.9 fL (81.0-99.0); Mean Platelet Volume 10.1 fL (9.5-13.5); Monocytes Absolute Auto 0.8 10^3/uL (0.3-0.8); Monocytes Percent Auto 7.3 % (1.7-12.0); Neutrophils Absolute Auto 8.5 10^3/uL (1.4-6.5); Neutrophils Percent Auto 80.5 % (43.0-75.0); Platelet Count 199 10^3/uL (150-450); Red Blood Count 2.59 10^6/uL (4.20-5.40); Red Cell Distribution Width 22.9 % (11.0-15.0); White Blood Count 10.5 10^3/uL (4.0-11.0)
[2023-11-28 07:44] LABS: Anion Gap 8.3; BUN Creatinine Ratio 39.6; Calcium 7.6 mg/dL (8.5-10.1); Carbon Dioxide 33.8 mmol/L (21.0-32.0); Chloride 105 mmol/L (98-107); Estimated GFR (African America >60 (>=60); Estimated GFR (Non-African Ame 60 (>=60); Glucose 91 mg/dL (74-106); Potassium 4.1 mmol/L (3.5-5.1); Sodium 143 mmol/L (136-145)
--- NOTE | 2023-11-28 08:14 | PC.NURSE ---
Access called for PICC 11/28/23 0812 MM
[2023-11-28 08:16] LABS: Glucometer 97 mg/dL (74-106)
--- NOTE | 2023-11-28 08:20 | P.PN_ITS ---
Progress Note: Subjective Subjective Interval history: Patient much more awake and alert and conversational this morning. Still confused. Exam Constitutional Vital Signs, click to edit/add: Last Vital Signs Temp 97.5 F L 11/28/23 04:00 Pulse 84 11/28/23 08:18 Resp 16 11/28/23 08:18 BP 90/61 11/28/23 08:18 Pulse Ox 91 L 11/28/23 08:18 O2 Del Method Room Air 11/28/23 08:18 O2 Flow Rate 8 11/28/23 05:45 FiO2 100 11/28/23 05:30 Documenting provider has reviewed patient's vital signs: yes Common normals: no apparent distress Chest Common normals: inspection of chest normal and palpation of chest normal Respiratory Common normals: normal respiratory effort and no retractions Auscultation: rales (Vitals: Improved today) Cardio Common normals: regular rate and regular rhythm GI Common normals: Normal to inspection, nondistended, normoactive bowel sounds present, soft to palpation, non-tender and no masses Extremity Common normals: abnormal to inspection (Edema bilateral lower extremities 3+,open wound left thigh lateral bleeding) Progress Note: Objective Labs Labs: Short CBC 11/28/23 Range/Units 06:48 WBC 10.5 (4.0-11.0) 10^3/uL Hgb 7.8 L (12.0-16.0) g/dL Hct 26.9 L (36.0-48.0) % Plt Count 199 (150-450) 10^3/uL BMP 11/28/23 06:48 Sodium 143 Potassium 4.1 Chloride 105 Carbon Dioxide 33.8 H BUN 36.0 H Creatinine 0.91 Glucose 91 Calcium 7.6 L Urine 11/27/23 Range/Units 08:21 Urine Color Lt. yellow (YELLOW) Urine Clarity Clear (CLEAR) Urine pH 5.5 (5.0-9.0) Ur Specific [place] 1.010 (1.005-1.025) Urine Protein Negative (NEG/TRACE) mg/dL Urine Glucose (UA) Negative (NEGATIVE) mg/dL Progress Note: A&P Assessment and Plan (1) Postoperative wound breakdown: (2) Femur fracture, left: (3) Anemia: (4) Bruise of both arms: (5) CHF (congestive heart failure): Plan Admission findings: Sinus tachycardia, respiratory distress, significant hypoxia with O2 sat of 68%, leukocytosis, secondary to right middle lobe pneumonia resulting in sepsis-IV antibiotics, blood culture, sputum culture, wound culture Right lower lobe pneumonia-see as outlined above 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 as outlined above-Bumex drip again today, add spironolactone, BNP is higher Open wound left thigh from previous fracture-consult orthopedics, antibiotics as outlined above, wound now with some increasing drainage, reconsult orthopedics Severe protein calorie malnutrition-diet management plus protein supplementation Bruises over left shoulder, x-ray negative Iron deficiency anemia-monitor daily-Down somewhat today, continue to monitor Hyperkalemia-diuresis likely to improve,-resolved Hypothyroidism-adjust doses, TSH significantly elevated, with the heart failure give 1 dose of IV Synthroid on top of her daily dose plus increase her daily dose, now maintain daily dosing Admission status: Patient with severe hypoxia, right middle lobe pneumonia resulting in acute combined congestive heart failure-medically necessary to we will span 2 midnights-inpatient status ?
--- NOTE | 2023-11-28 08:30 | CM.NOTE ---
Rounds made with Dr. Islas. Continue treatment plan. No plan for discharge today.
[2023-11-28] MEDS: SPIRONOLACTONE 25 MG TABLET 50 MG PO (08:48)
[2023-11-28] MEDS: SODIUM CHLORIDE IV (08:48)
[2023-11-28] MEDS: LEVOTHYROXINE SODIUM IV (08:48)
[2023-11-28] MEDS: ENOXAPARIN SODIUM 40 MG/0.4 ML SYRINGE SUBQ (08:49)
[2023-11-28] MEDS: ASPIRIN 81 MG TAB.CHEW PO (08:49)
[2023-11-28] MEDS: ACETAMINOPHEN 500 MG TABLET 1000 MG PO (08:49)
[2023-11-28] MEDS: FOLIC ACID 1 MG TABLET PO (08:49)
[2023-11-28] MEDS: OXYCODONE HCL 5 MG TABLET PO ×2 (08:49→15:25)
[2023-11-28] MEDS: NYSTATIN 15 GM POWDER 1 APPLIC TOPICAL (08:50)
--- NOTE | 2023-11-28 09:53 | REH.PTDLY ---
Physical Therapy Daily Note PT Daily Note/Assess Start: 11/27/23 13:21 Freq: Status: Active Protocol: Document 11/28/23 09:52 LUIS MANUEL (Rec: 11/28/23 09:53 LUIS MANUEL [id number]) Visit Not Completed Visit Not Completed Due to: Other Other Reason Visit Not Completed Pt having PICC line place this morning when DROP WORKER went to treat pt. Physical Therapy Daily Note/Assessment Time In 09:50 Time Out 09:51
--- NOTE | 2023-11-28 09:59 | XR_ITS ---
The [address] [address] Patient Name: FRANSISCO MENON MRN: [id number] date: 1945 Sex: F Assigned Patient Location: [place] Current Patient Location: [place] Accession/Order Number: [id number] Exam Date: 11/28/2023 10:20 Report Date: 11/28/2023 10:32 At the request of: IRWIN MORA Procedure: XR chest 1V EXAM: XR chest 1V HISTORY: picc line placement COMPARISON: 11/27/2019 TECHNIQUE: Portable FINDINGS: LUNGS: Low lung volumes. Moderate left basilar infiltrate obscures the hemidiaphragm and partially obscuring the heart border VASCULATURE: Moderately increased pulmonary vasculature PLEURA: No pneumothorax, effusion, or pleural thickening. CARDIAC: No cardiomegaly or cardiac silhouette abnormality. MEDIASTINUM: No visible mass or adenopathy. Median sternotomy closure devices. Aortic atherosclerosis BONES: No fracture or visible bone lesion. OTHER: Right PICC catheter tip projects over the right atrium XR/XR chest 1V IMPRESSION: PICC catheter tip in the right atrium Moderate left basilar infiltrate Pulmonary vascular congestion, progressed Electronically authenticated by: AMBERLY SOLOMON Date: 11/28/2023 10:32
--- NOTE | 2023-11-28 11:14 | SWNOTE1 ---
EDISON sent updates to Mary Kay at [facility]. Updates included orthopedic note, physician note from today, vitals, labs, med list, PT eval, and nursing notes.
[2023-11-28] MEDS: BUMETANIDE 10 MG in 0.9 % SODIUM CHLORIDE 160 ML 20 MG IV (11:15)
[2023-11-28 11:16] LABS: Basophils Percent Auto 0.2 % (0.2-2.0); Hematocrit 27.4 % (36.0-48.0); Hemoglobin 7.8 g/dL (12.0-16.0); Immature Granulocytes Abs Auto 0.14 10^3/uL (0.00-0.03); Immature Granulocytes Pct Auto 1.2 % (0.0-0.5); Lymphocytes Absolute Auto 0.9 10^3/uL (1.2-3.8); Lymphocytes Percent Auto 7.9 % (20.5-60.0); Mean Corpuscular HGB Conc 28.5 g/dL (29.9-35.2); Mean Corpuscular Hemoglobin 29.1 pg (26.7-34.0); Mean Corpuscular Volume 102.2 fL (81.0-99.0); Mean Platelet Volume 9.9 fL (9.5-13.5); Monocytes Absolute Auto 0.7 10^3/uL (0.3-0.8); Monocytes Percent Auto 6.5 % (1.7-12.0); Neutrophils Absolute Auto 9.6 10^3/uL (1.4-6.5); Neutrophils Percent Auto 84.2 % (43.0-75.0); Platelet Count 228 10^3/uL (150-450); Red Cell Distribution Width 22.8 % (11.0-15.0); White Blood Count 11.5 10^3/uL (4.0-11.0)
[2023-11-28] MEDS: MORPHINE SULFATE 15 MG TABLET.ER PO (11:21)
[2023-11-28 11:53] LABS: Red Blood Count 2.68 10^6/uL (4.20-5.40)
--- NOTE | 2023-11-28 12:55 | REH.PTDLY ---
Physical Therapy Daily Note PT Daily Note/Assess Start: 11/27/23 13:21 Freq: Status: Active Protocol: Document 11/28/23 11:00 LUIS MANUEL (Rec: 11/28/23 12:55 [id number] Physical Therapy Daily Note/Assessment Time In 10:45 Time Out 11:00 Subjective Pt awake upon arrival, just had PICC line placed. Pt says no at first to therapy, says it's going to hurt. Nursing wants waffle cushion under patient. Therapeutic Activity Minutes (minutes) 6 Therapeutic Activity Units 0 Bed Mobility Ability Maximum Assist,3 or More Person Assist Therapeutic Activity Comments Pt is a max A x3 for rolling side to side. Pt grabbing onto therapists shirt, screaming in pain. Pt unable to assist or follow cues with rolling. Pt screams when legs are touched. Unable to perform any LE PROM with her. Total Therapy Minutes 6 Total Physical Therapy Units 0 Daily Note Summary Pt has high pain levels with any form of movement, unable to perform LE exs due to pain. Pt will need skilled care upon DC.
--- NOTE | 2023-11-28 14:25 | SWNOTE1 ---
EDISON spoke to pt's guardian over the phone. Guardians plans is for her to return to [facility] once she is stable for discharge. He voiced he is happy with care at [facility]. SW did review Important Message from Medicare. Pt's guardian verbalized understanding and SW signed form on behalf of guardian. Original placed in pt's room and copy placed in chart.
--- NOTE | 2023-11-28 16:37 | RESP.RT ---
patient unable to follow directions for PEP therapy
[2023-11-28 23:26] LABS: Internal Control Within Normal Limits; Occult Blood Positive
[2023-11-29] MEDS: PIPERACILLIN SODIUM/TAZOBACTAM 3.375 GM in 0.9 % SODIUM CHLORIDE 50 ML IV ×2 (02:26→11:59)
[2023-11-29 04:00] VITALS: PULSE 67; TEMP 36.9; O2SAT 94
[2023-11-29] MEDS: OXYCODONE HCL 5 MG TABLET PO (05:49)
[2023-11-29] MEDS: WOUND DRESSINGS TP ×2 (05:50→13:41)
[2023-11-29 06:06] LABS: Basophils Percent Auto 0.2 % (0.2-2.0); Hematocrit 27.1 % (36.0-48.0); Hemoglobin 8.1 g/dL (12.0-16.0); Immature Granulocytes Abs Auto 0.12 10^3/uL (0.00-0.03); Immature Granulocytes Pct Auto 1.1 % (0.0-0.5); Lymphocytes Absolute Auto 1.4 10^3/uL (1.2-3.8); Lymphocytes Percent Auto 12.9 % (20.5-60.0); Mean Corpuscular HGB Conc 29.9 g/dL (29.9-35.2); Mean Corpuscular Hemoglobin 30.5 pg (26.7-34.0); Mean Corpuscular Volume 101.9 fL (81.0-99.0); Mean Platelet Volume 9.8 fL (9.5-13.5); Monocytes Absolute Auto 0.8 10^3/uL (0.3-0.8); Neutrophils Absolute Auto 8.2 10^3/uL (1.4-6.5); Neutrophils Percent Auto 77.8 % (43.0-75.0); Platelet Count 253 10^3/uL (150-450); Red Blood Count 2.66 10^6/uL (4.20-5.40); Red Cell Distribution Width 23.2 % (11.0-15.0); White Blood Count 10.5 10^3/uL (4.0-11.0)
[2023-11-29 06:31] LABS: Anion Gap 6.1; BUN Creatinine Ratio 36.2; Calcium 7.5 mg/dL (8.5-10.1); Carbon Dioxide 35.9 mmol/L (21.0-32.0); Chloride 104 mmol/L (98-107); Estimated GFR (African America >60 (>=60); Estimated GFR (Non-African Ame 57 (>=60); Glucose 105 mg/dL (74-106); Sodium 143 mmol/L (136-145)
--- NOTE | 2023-11-29 06:40 | CA_ITS ---
Patient Name: FRANSISCO MENON MR#: [id number] : 1945 Exam Date: 11/29/2023 Ordering Doctor: DR IRWIN MORA . ECHOCARDIOGRAM REPORT PROCEDURE: CA ECHO DOPPLER COMPLETE INDICATIONS: chf COMPARISON: None. DESCRIPTION: COMPLETE ECHOCARDIOGRAM Real-time transthoracic echocardiography with 2D, M-mode, spectral and color flow Doppler performed. QUALITY: Technical quality was adequate. LEFT VENTRICLE: Normal chamber size. Mild concentric left ventricular hypertrophy. Global left ventricular systolic function is normal. LV EF: Estimated left ventricular ejection fraction is 65 %. DIASTOLIC: Not adequately assessed due to heart rhythm. ATRIAL SEPTUM: LEFT ATRIUM: Severe dilatation. RIGHT ATRIUM: Severe dilatation. RIGHT VENTRICLE: Moderate dilatation. Mildly decreased right ventricular systolic function. TRICUSPID VALVE: Normal mobility and thickness. No stenosis with severe regurgitation. Severe pulmonary hypertension. RVSP 63 mmHg MITRAL VALVE: Normal mobility and thickness. No evidence of mitral valve stenosis. Mild mitral annular calcification. Trivial mitral regurgitation. AORTIC VALVE: Normal trileaflet appearance. No visible sclerosis. Normal leaflet mobility. No evidence of aortic valve stenosis. No aortic regurgitation. AORTIC ROOT: Normal diameter and appearance. PULMONIC VALVE: Normal thickness and mobility. No stenosis. Mild regurgitation. PERICARDIUM: No evidence of pericardial effusion. IVC: Collapses with inspirations. Dilated measuring 2.4cm. PLEURA: CONCLUSION: 1. Microcytic ventricular hypertrophy with normal systolic function. LVEF is 65%. 2. Moderately dilated right ventricle with mildly reduced systolic function. 3. Severe biatrial dilatation. 4. Severe tricuspid regurgitation. 5. Severely elevated right-sided pressures. RVSP is 63 mmHg. Adult Echocardiography Procedure Report Left Ventricle LVEDD (3.7 - 5.6 cm): 4.29 cm LVESD (2.2 - 4.0 cm): 3.05 cm LVIVS thickness (0.6 - 1.2 cm): 1.22 cm LVPW thickness (0.5 - 1.0 cm): 1.07 cm e': 0.11 m/s E - e': 9.96 LVOT Max Gradient: 2.21 mm[Hg], 1.98 mm[Hg] LVOT Area (cm2): 0.72 m/s Peak Velocity (LVOT): 0.74 m/s, 0.70 m/s Mean Velocity (LVOT): 0.52 m/s LVOT Diameter 2.02 cm Left Ventricular Ejection Fraction: 65 % Left Atrium LA Volume Index (2D A2C): 51.68 ml/m2 Left Atrium Systolic Dimension: 5.53 cm Mitral Valve Mitral Valve E-Wave Peak Velocity: 1.10 m/s Right Ventricle RV Internal Diastolic Dimension: 4.67 cm Aorta AO Root Diam: 3.35 cm Ascending Ao Diam: 2.85 cm Aortic Valve AoV Area (Peak Steffen): 1.58 cm2, 1.62 cm2 AoV Area (VTI): 1.50 cm2, 1.47 cm2 Peak Velocity(Antegrade Flow): 1.47 m/s Peak Gradient(Antegrade Flow): 8.61 mm[Hg] Mean Velocity(Antegrade Flow): 1.11 m/s Mean Gradient(Antegrade Flow): 5.37 mm[Hg] Velocity Time Integral: 32.87 cm Tricuspid Valve Peak Velocity (Regurgitant Flow): 4.10 m/s, 3.28 m/s, 3.71 m/s Pulmonic Valve Mean Gradient: 2.41 mm[Hg] Mean Velocity: 0.74 m/s Peak Velocity: 0.98 m/s, 1.18 m/s Peak Gradient: 5.57 mm[Hg], 3.81 mm[Hg] Right Atrium Right Atrium Systolic Pressure: 142.55 ml, 142.55 ml Dictated by: Gato Taveras M.D. on 11/29/2023 at 17:53 Approved by: Gato Taveras M.D. on 11/29/2023 at 17:56
[2023-11-29 07:38] VITALS: BP 100/59; PULSE 71; TEMP 36.7; O2SAT 94
[2023-11-29] MEDS: POTASSIUM CHLORIDE 40 MEQ in 0.9 % SODIUM CHLORIDE 250 ML 67.5 MEQ IV (07:41)
[2023-11-29] MEDS: VANCOMYCIN HCL 1,000 MG in 0.9 % SODIUM CHLORIDE 250 ML 250 MG IV (08:12)
[2023-11-29] MEDS: ENOXAPARIN SODIUM 40 MG/0.4 ML SYRINGE SUBQ (08:26)
[2023-11-29] MEDS: SODIUM CHLORIDE IV (08:27)
[2023-11-29] MEDS: ASPIRIN 81 MG TAB.CHEW PO (08:27)
[2023-11-29] MEDS: ENSURE HP 237 ML LIQUID PO (08:27)
[2023-11-29] MEDS: FOLIC ACID 1 MG TABLET PO (08:27)
[2023-11-29] MEDS: PROSTAT 15 GM PROTEIN/100 CAL 30 ML LIQUID PACKET PO (08:27)
[2023-11-29] MEDS: LEVOTHYROXINE SODIUM IV (08:27)
[2023-11-29] MEDS: NYSTATIN 15 GM POWDER 1 APPLIC TOPICAL (08:28)
--- NOTE | 2023-11-29 08:29 | P.DS_ITS ---
DS: Providers Provider Date of admission: 11/27/23 06:01 Primary care physician: PRANAV CAMPOS Consults: 11/27/23 Consult to Dietitian Routine Reason for consultation: not eating,fragile skin Has provider been notified: No 11/27/23 06:07 Occupational Therapy Eval and Treat Routine Reason for consultation: Only if needed for Rehab Has provider been notified: No Physical Therapy Eval and Treat Routine Reason for consultation: Eval and Treat Has provider been notified: No 11/27/23 07:46 Consult to Wound Care Routine Consulting Provider: Garrett Harper Reason for consultation: leg wound Has provider been notified: No 11/27/23 08:11 Consult to Orthopedic Surgery Routine Consulting Provider: Chang Mcdonough Reason For Exam: Reason for consultation: wound from femur fx Has provider been notified: No 11/27/23 09:00 Occupational Therapy Eval and Treat Routine Reason for consultation: debility Has provider been notified: No Physical Therapy Eval and Treat Routine Reason for consultation: debility Has provider been notified: No DS: Diagnosis Discharge Diagnosis (1) Postoperative wound breakdown: (2) Femur fracture, left: (3) Anemia: (4) Bruise of both arms: (5) CHF (congestive heart failure): Plan Admission findings: Sinus tachycardia, respiratory distress, significant hypoxia with O2 sat of 68%, leukocytosis, secondary to right middle lobe pneumonia resulting in sepsis-IV antibiotics, blood culture, sputum culture, wound culture Right lower lobe pneumonia-see as outlined above 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 as outlined above-Bumex drip again today, add spironolactone, BNP is higher Open wound left thigh from previous fracture-consult orthopedics, antibiotics as outlined above, wound now with some increasing drainage, reconsult orthopedics Severe protein calorie malnutrition-diet management plus protein supplementation Bruises over left shoulder, x-ray negative Iron deficiency anemia-monitor daily-Down somewhat today, continue to monitor Hyperkalemia-diuresis likely to improve,-resolved Hypothyroidism-adjust doses, TSH significantly elevated, with the heart failure give 1 dose of IV Synthroid on top of her daily dose plus increase her daily dos e, now maintain daily dosing Admission status: Patient with severe hypoxia, right middle lobe pneumonia resulting in acute combined congestive heart failure-medically necessary to we will span 2 midnights-inpatient status ? ? DS: Summary Hospital Course Hospital Course: Admitted with acute combined congestive heart failure secondary to pneumonia and likely secondary to open wound left thigh from previous hip surgery from fracture. Patient was diuresed with Bumex drip on 2 occasions, she was initially required nonrebreather mask to maintain O2 saturation greater than 90%, since yesterday she been able to be weaned off of her supplemental oxygen. She is much more awake and alert. Count continues to improve. Her BNP is elevated but this may be chronic for her. Checking echocardiogram this morning, if echocardiogram shows a good ejection fraction, since she is off of supplemental oxygen she can be transferred back to her long-term care facility, continue to follow-up with orthopedics for the open wound left leg. Medications see list. Follow-up with PCP at care home. EF on echo calculated at >55% - cleared for D/C Needs folllow up [facility] and continue with wound treatments Status at Discharge Overall status at discharge: patient is back to baseline Time Spent with Patient Time attestation: Total time spent providing and/or coordinating discharge services: Time spent: greater than 30 minutes Exam Constitutional Vital Signs, click to edit/add: Last Vital Signs Temp 98.1 F 11/29/23 07:38 Pulse 71 11/29/23 07:38 Resp 20 11/29/23 07:38 BP 100/59 11/29/23 07:38 Pulse Ox 94 L 11/29/23 07:38 O2 Del Method Room Air 11/29/23 07:38 O2 Flow Rate 8 11/28/23 05:45 FiO2 100 11/28/23 05:30 Documenting provider has reviewed patient's vital signs: yes Common normals: no apparent distress Chest Common normals: inspection of chest normal and palpation of chest normal Respiratory Common normals: normal respiratory effort (Much improved from the previous days) and no retractions Auscultation: rales (Improved) Cardio Common normals: regular rate and regular rhythm GI Common normals: Normal to inspection, nondistended, normoactive bowel sounds present, soft to palpation, non-tender and no masses Extremity Common normals: abnormal to inspection (Edema bilateral lower extremities 3+,open wound left thigh lateral bleeding) DS: Data Data Completed and Pending Labs on day of discharge: Labs from last 24 hours 11/29/23 11/28/23 11/28/23 05:58 22:55 19:49 WBC 10.5 RBC 2.66 L Hgb 8.1 L Hct 27.1 L MCV 101.9 H MCH 30.5 MCHC 29.9 RDW 23.2 H Plt Count 253 MPV 9.8 Neut % (Auto) 77.8 H Lymph % (Auto) 12.9 L Solano % (Auto) 8.0 Eos % (Auto) 0.0 L Baso % (Auto) 0.2 Neut # (Auto) 8.2 H Lymph # (Auto) 1.4 Sol[place] # (Auto) 0.8 Eos # (Auto) 0.0 Baso # (Auto) 0.0 Abs Immat Gran (auto) 0.12 H Imm/Tot Granulo (auto) 1.1 H Sodium 143 Potassium 3.0 L Chloride 104 Carbon Dioxide 35.9 H Anion Gap 6.1 BUN 34.0 H Creatinine 0.94 Est GFR ( Amer) >60 Est GFR (Non-Af Amer) 57 L BUN/Creatinine Ratio 36.2 Glucose 105 Calcium 7.5 L NT-Pro-B Natriuret Pep 62305.0 H* Stool Occult Blood Positive A Vancomycin Trough <0.8 L 11/28/23 11:09 WBC 11.5 H RBC 2.68 L Hgb 7.8 L Hct 27.4 L MCV 102.2 H MCH 29.1 MCHC 28.5 L RDW 22.8 H Plt Count 228 MPV 9.9 Neut % (Auto) 84.2 H Lymph % (Auto) 7.9 L Sol[place] % (Auto) 6.5 Eos % (Auto) 0.0 L Baso % (Auto) 0.2 Neut # (Auto) 9.6 H Lymph # (Auto) 0.9 L Sol[place] # (Auto) 0.7 Eos # (Auto) 0.0 Baso # (Auto) 0.0 Abs Immat Gran (auto) 0.14 H Imm/Tot Granulo (auto) 1.2 H Sodium Potassium Chloride Carbon Dioxide Anion Gap BUN Creatinine Est GFR ( Amer) Est GFR (Non-Af Amer) BUN/Creatinine Ratio Glucose Calcium NT-Pro-B Natriuret Pep Stool Occult Blood Vancomycin Trough Discharge Plan Discharge Disposition: Xfer SNF Condition: Fair Discharge Medications: New amoxicillin-pot clavulanate 875-125 mg tablet 1 tab PO Q12H Qty: 20 0RF furosemide [Lasix] 40 mg tablet 40 mg PO QAM Qty: 30 11RF Continued Coricidin HBP Chest Merlin-Cough 10-200 mg capsule 1 tab-cap PO BID PRN (Reason: cough) enoxaparin [Lovenox] 40 mg/0.4 mL syringe 40 mg subcut DAILY hexylresorcinol Lozenge 1 otis mucous membrane DAILY PRN (Reason: sore throat) Triad Wound Dressing Paste 1 applic topical TID Rx Instructions: GLUTEAL FOLD atorvastatin 40 mg tablet 40 mg PO QPM ondansetron HCl 4 mg tablet 4 mg PO Q6H PRN (Reason: nausea and vomiting) baclofen 20 mg tablet 20 mg PO QPM levothyroxine 100 mcg tablet 100 mcg PO .ACB folic acid 1 mg tablet 1 mg PO .QD morphine 15 mg tablet extended release 15 mg PO Q8H nystatin 100,000 unit/gram powder 1 applic TOPICAL .QD oxycodone 5 mg tablet 5 mg PO Q6H PRN (Reason: pain) potassium citrate 10 mEq (1,080 mg) tablet extended release 10 meq PO QID sertraline 25 mg tablet 75 mg PO BEDTIME acetaminophen 500 mg capsule 1,000 mg PO Q6H Patient Comments: TID ammonium lactate 12 % lotion 1 applic topical BID PRN (Reason: dry skin) lidocaine [Aspercreme (lidocaine)] 4 % adhesive patch,medicated 1 patch topical DAILY Rx Instructions: may leave on for up to 12 hrs aspirin 81 mg tablet,chewable 81 mg PO DAILY Biofreeze (menthol) 5 % gel 1 ea topical .Q8 PRN (Reason: pain) cholecalciferol (vitamin D3) 1,250 mcg (50,000 unit) capsule 1,250 mcg PO QWEEK loperamide 2 mg capsule 2 mg PO BID PRN (Reason: loose stool) melatonin 3 mg capsule 3 mg PO .QHS Discontinued cephalexin 500 mg capsule 500 mg PO TID Rx Instructions: STARTED 11/25/23 furosemide 20 mg tablet 40 mg PO DAILY Print Language: Mohawk Manager Requirements/Cell Stripper Final Instructions: Discharge back to [facility] skilled Forms: Portal Instructions
--- NOTE | 2023-11-29 08:29 | CM.NOTE ---
Rounds made with Dr. Islas. Potential discharge today after Echo.
[2023-11-29] MEDS: SPIRONOLACTONE 25 MG TABLET 50 MG PO (08:36)
[2023-11-29] MEDS: BUMETANIDE 1 MG/4 ML VIAL 2 MG IVP (08:36)
[2023-11-29] MEDS: ACETAMINOPHEN 500 MG TABLET 1000 MG PO (08:43)
--- NOTE | 2023-11-29 10:06 | REH.PTDLY ---
Physical Therapy Daily Note PT Daily Note/Assess Start: 11/27/23 13:21 Freq: Status: Active Protocol: Document 11/29/23 10:02 LUIS MANUEL (Rec: 11/29/23 10:05 LUIS MANUEL [id number]) Visit Not Completed Visit Not Completed Due to: Inability to participate Other Reason Visit Not Completed Pt continues to be screaming out with nursing just with light touch. Unable to perform any skilled therapy at this time due to pain levels. Physical Therapy Daily Note/Assessment Time In 08:15 Time Out 08:16
[2023-11-29 11:24] VITALS: O2SAT 94
--- NOTE | 2023-11-29 11:24 | RESP.RT ---
Pt unable to do PEP
[2023-11-29 12:34] VITALS: BP 110/71; PULSE 81; TEMP 36.8; O2SAT 95
[2023-11-29 13:09] VITALS: BMI 40.9
[2023-11-29 13:09] LABS: Procalcitonin 0.24 ng/mL (0.00-0.08)
[2023-11-29 13:21] LABS: Vancomycin Trough 22.3 ug/mL (5.0-20.0)
--- NOTE | 2023-11-29 13:29 | SWNOTE1 ---
Pt is able to be discharged back to [facility] today. She will be returning skilled. EDISON sent over dc med rec and dc summary to Mary Kay at [facility]. EDISON set up [employer] for 4:00. EDISON notified nursing and [facility] of time. EDISON to call guardian as well.
--- NOTE | 2023-11-29 13:32 | SWNOTE1 ---
SW called and left guardian a message on voicemail with time.
--- NOTE | 2023-11-29 13:34 | SWNOTE1 ---
SW took packet to med/surge floor.
--- NOTE | 2023-11-29 13:51 | PC.NURSE ---
Report called to Urmila at [facility]
[2023-11-29 15:28] VITALS: BP 108/72; PULSE 82; TEMP 36.6; O2SAT 96
[2023-11-29 16:16] LABS: C. Difficile PCR NEGATIVE (NEGATIVE)
== END 2023-11-29 17:10 | DRG 871 ==
LOC: ER 02:34 → MS 04:04
PROVIDERS: Registered Nurse; Admitting Provider Family Medicine; Emergency Provider Emergency Medicine; PCP Family Medicine; Visit Provider Family Medicine
DX: A41.52 Sepsis due to Pseudomonas (principal); E43 Unspecified severe protein-calorie malnutrition; I50.41 Acute combined systolic (congestive) and diastolic (congestive) heart failure; J18.9 Pneumonia, unspecified organism; Z68.41 Body mass index [BMI] 40.0-44.9, adult; J44.0 Chronic obstructive pulmonary disease with (acute) lower respiratory infection; T81.31XA Disruption of external operation (surgical) wound, not elsewhere classified, initial encounter; S40.012A Contusion of left shoulder, initial encounter; D50.9 Iron deficiency anemia, unspecified; E03.9 Hypothyroidism, unspecified; E87.5 Hyperkalemia; F03.90 Unspecified dementia, unspecified severity, without behavioral disturbance, psychotic disturbance, mood disturbance, and anxiety; E66.01 Morbid (severe) obesity due to excess calories; Z79.01 Long term (current) use of anticoagulants; Z96.652 Presence of left artificial knee joint; Z96.642 Presence of left artificial hip joint; W19.XXXA Unspecified fall, initial encounter; Z79.899 Other long term (current) drug therapy; Z66 Do not resuscitate; I48.91 Unspecified atrial fibrillation; K21.9 Gastro-esophageal reflux disease without esophagitis; G47.00 Insomnia, unspecified; Z86.711 Personal history of pulmonary embolism; M19.90 Unspecified osteoarthritis, unspecified site; Z79.82 Long term (current) use of aspirin; I11.0 Hypertensive heart disease with heart failure; S72.92XD Unspecified fracture of left femur, subsequent encounter for closed fracture with routine healing; X58.XXXD Exposure to other specified factors, subsequent encounter; S40.022A Contusion of left upper arm, initial encounter; S40.021A Contusion of right upper arm, initial encounter; X58.XXXA Exposure to other specified factors, initial encounter
CPT/HCPCS: 36415; 36569; 71045; 73030; 73060; 80048; 80053; 80202; 81001; 83605; 83735; 83880; 84145; 84436; 84443; 84484; 85014; 85018; 85025; 86850; 86900; 86901; 87040; 87070; 87075; 87077; 87086; 87150; 87186; 87493; 93005; 93306; 94761; 96365; 96366; 96367; 96368; 96372; 96375; 96376; 97161; 97165; 97530; 99285; C1887; G0328; J0650; J1650; J1940; J2270; J2543; J3370; J3480

== ENCOUNTER 2023-12-01 06:49 | Outpatient (REF) | payer MEDICARE, MEDICAID, SELFPAY ==
--- OUTSIDE RECORDS SUMMARY | 2023-12-01 06:52 | XMS_ITS | CCD ---
Author Organization [facility] Care Team Providers Care Pacs Specialist Name Role Phone NEPTALI VILLALTA Unavailable Unavailabl [...] Care Unavailable BETH, DR ROCK Attending Unavailable VELY, AELA Referring Unavailable VELY, AELA Referring Unavailable VELY, AELA Referring Unavailable VELY, AELA Attending Unavailable KASSANDRA PEREZ Referring Unavailable VELY, AELA Admitting Unavailable SMITH, CHRISTOPHER Referring Unavailable YUE BRODY Referring Unavailable FRAN LANDRY Referring Unavailable FLAKO GONZALEZ Referring Unavailable SMITH, CHRISTOPHER Referring Unavailable SMITH, CHRISTOPHER Referring Unavailable Problems Active Problems Problem Classification Problem Date Documented Date Episodic/Chronic Acute and unspecified renal failure (4 sources) Unspecified kidney failure; Translations: [UNSPECIFIED KIDNEY FAILURE] Onset: 08-22-2022 Chronic Acute posthemorrhagic anemia (2 sources) Acute posthemorrhagic anemia; Translations: [Acute posthemorrhagic anemia] Onset: 11-13-2023 Episodic Complications of surgical procedures or medical care (2 sources) Periprosthetic fracture around other internal prosthetic joint, initial encounter; Translations: [Periprosthetic fracture around other internal prosthetic joint, initial encounter] Onset: 11-13-2023 Episodic Congestive heart failure; nonhypertensive (5 sources) Heart failure, unspecified; Translations: [Acute systolic (congestive) heart failure] Onset: 02-09-2022 Chronic Deficiency and other anemia (1 source) Iron deficiency anemia, unspecified; Translations: [IRON DEFICIENCY ANEMIA UNSPECIFIED] Onset: 07-13-2022 Episodic Essential hypertension (4 sources) Essential (primary) hypertension; Translations: [ESSENTIAL PRIMARY HYPERTENSION] Onset: 07-11-2022 Chronic Fracture of lower limb (2 sources) Displaced spiral fracture of shaft of left femur, initial encounter for closed fracture; Translations: [Displaced spiral fracture of shaft of left femur, initial encounter for closed fracture] Onset: 11-13-2023 Episodic Hypertension with complications and secondary hypertension (1 source) Hypertensive heart disease with heart failure; Translations: [HTN HEART DISEASE W/HEART FAIL] Onset: 02-09-2022 Chronic Other connective tissue disease (2 sources) Presence of unspecified artificial hip joint; Translations: [Presence of unspecified artificial hip joint] Onset: 11-13-2023 Chronic Other nutritional; endocrine; and metabolic disorders [...] Results Test Name Value Interpretation Reference Range Facility 36on 11-23-2023 36 [facility] called and states that they only have transportation in the PM for patients with stretchers. They are unable to bring patient to Post-op appointment on 11/28. They also would like to report heavy drainage. No other issues. Please call [phone] and ask for patients nurse to reschedule appointment. [facility] Telephoneon 11-23-2023 Telephone [phone] Marisol Menon 1945 F [facility] Provider Department Center 11/23/2023 GIBRAN HEBERT MP ORTHO MPORTHO No family history on file Reason for Visit and Comments: Appointment [375] [facility] 30on 11-22-2023 30 Problem: Pain - Adul t Goal: Verbalizes/displays adequate comfort level or baseline comfort level Outcome: Progressing Problem: Safety - Adult Goal: Free from fall injury Outcome: Progressing Problem: Discharge Planning Goal: Discharge to home or other facility with appropriate resources Outcome: Progressing Problem: Chronic Conditions and Co-morbidities Goal: Patient's chronic conditions and co-morbidity symptoms are monitored and maintained or improved Outcome: Progressing Problem: Safety - Medical Restraint Goal: Remains free of injury from restraints (Restraint for Interference with Planning Consultant) Outcome: Progressing Goal: Free from restraint(s) (Restraint for Interference with Planning Consultant) Outcome: Progressing Problem: Terminal Illness Goal: Patient's needs shall be met in a safe and nurturing environment Outcome: Progressing Problem: Communication Thought Process Goal: Effective communication in a Hospice environment Outcome: Progressing Goal: Participate in active listening and/or observation of patient's non-verbal communication Outcome: Progressing Problem: Emotional Distress Goal: Patient will exhibit decreased symptoms of distress Outcome: Progressing Goal: Verbalize understanding of the anxiety management plan Outcome: Progressing Problem: Psychosocial Status Goal: Communicate their psychosocial needs to the hospice team Outcome: Progressing Goal: [place] with care giving, psychosocial, and end of life issues Outcome: Progressing Goal: Communicate and/or document their end of life wishes Outcome: Progressing Problem: Spiritual Issues Goal: Satisfaction with the level/quality of spiritual care will be expressed Outcome: Progressing Goal: Personal sense of spiritual peace will be experienced Outcome: Progressing Goal: An opportunity to address specific spiritual issues will be provided Outcome: Progressing Problem: Anticipatory Grieving Goal: Patient and family will better understand the grief process Outcome: Progressing Goal: Patient and family will accept and/or tolerate other's individual grief responses Outcome: Progressing Goal: Family will be supportive of the patient and each other Outcome: Progressing Goal: Patient and family will progress toward acceptance of Outcome: Progressing Problem: Imminent Goal: Patient and family will better understand the grief process Outcome: Progressing Goal: Patient and family will accept and/or tolerate other's individual grief responses Outcome: Progressing Goal: Family will be supportive of the patient and each other Outcome: Progressing Goal: Patient and family will progress toward acceptance of Outcome: Progressing Problem: Respiratory Status Goal: Patient will report or be observed by nurse/caregiver to have decreased or relieved dyspnea Outcome: Progressing Goal: Family will verbalize an understanding of dyspnea management Outcome: Progressing Problem: Pain/Physical Discomfort Goal: Patient's pain/physical discomfort will be reduced to the level of patient's stated goal Outcome: Progressing Goal: Patient/Family/Caregiv er will verbalize understanding of the pain management plan Outcome: Progressing Problem: Nutritional Status Goal: Patient will be in control of what, how much, and when to eat Outcome: Progressing Goal: Mucous membranes will remain intact, moist, and clean of excessive secretions Outcome: Progressing Goal: Associated symptoms of anorexia will be managed Outcome: Progressing Goal: Family/Caregiver will verbalize understanding of anorexia in the dying patient and demonstrate comfort with the plan of care Outcome: Progressing Problem: Sleep Goal: Patient will demonstrate adequate sleep/rest pattern Outcome: Progressing Problem: Elimination Goal: Absence of diarrhea, constipation, and skin breakdown Outcome: Progressing The patient is Moderately Stable - Low risk of patient condition declining or worsening The patient's goals for the shift include Comfort The clinical goals for the shift include VSS, comfort, prevention of skin breakdown Over the shift, the patient did make progress toward the following goals. Barriers to progression include pain, mobility. Recommendations to address these barriers include frequent pain reassessments, administration of pain medication as ordered, q2 turns. Normal [facility] BASIC METABOLIC PANELon 07-1 0 Anion gap [Moles/Vol] 8 mmol/L Normal 7-20 [facility] Comment on above: Performed By: #### L [id number] #### [facility] ([facility]) [address] [place] [address] Calcium [Mass/Vol] 6.7 mg/dL Low 8.6-10.3 [facility] Comment on above: Performed By: #### L [id number] #### [facility] [address] [place] [address] Chloride [Moles/Vol] 106 mmol/L Normal 98-107 [facility] Comment on above: Performed By: #### L [id number] #### [facility] [address] [place] [address] CO2 [Moles/Vol] 29 mmol/L Normal 21-31 [facility] Comment on above: Performed By: #### L [id number] #### [facility] ([facility]) [address] [place] [address] Creatinine [Mass/Vol] 0.84 mg/dL Normal 0.60-1.20 [facility] Comment on above: Performed By: #### L [id number] #### [facility] ([facility]) [address] [place] [address] GLOMERULAR FILTRATION RATE ML/MIN/1.73 SQ M.PREDICTED 70.6 mL/min/1.73m*2 Normal >60.0 [facility] Comment on above: Result Comment: The [facility]???s estimated glomerular filtration rate (eGFR) will no longer include consideration of race in its calculation. The National Kidney Foundation???s eGFR Task Force developed new recommendations for the estimation of the glomerular filtration rate in the [place] They recommend immediate implementation of the new equation refit without the race variable in all laboratories because the calculation does not include race. In addition to not including race in the calculation and reporting, it included diversity in its development, and has acceptable performance characteristics and potential consequences that do not disproportionately affect any one group of individuals. Performed By: #### L [id number] #### [facility] ([facility]) [address] [place] [address] Glucose [Mass/Vol] 87 mg/dL Normal 70-100 [facility] Comment on above: Performed By: #### L [id number] #### [facility] ([facility]) [address] [place] [address] Potassium [Moles/Vol] 4.2 mmol/L Normal 3.5-5.1 [facility] Comment on above: Performed By: #### L [id number] #### [facility] ([facility]) [address] [place] [address] Sodium [Moles/Vol] 139 mmol/L Normal 136-145 [facility] Comment on above: Performed By: #### L [id number] #### [facility] ([facility]) [address] [place] [address] Urea nitrogen [Mass/Vol] 34 mg/dL High 7-25 [facility] Comment on above: Performed By: #### L [id number] #### [facility] ([facility]) [address] [place] [address] UREA NITROGEN/CREATININE (MASS RATIO) IN SER/PLAS 40.5 Normal [facility] Comment on above: Performed By: #### L [id number] #### [facility] ([facility]) [address] [place] [address] CBC WITH AUTO DIFFERENTIALon 11-22-2023 Erythrocyte distribution width (RBC) [Ratio] 22.2 % High 11.5-15.0 [facility] Comment on above: Performed By: #### L [id number] #### [facility] ([facility]) [address] [place] [address] ERYTHROCYTE MEAN CORPUSCULAR HEMOGLOBIN CONCENTRATION (G/DL) BY AUTOMATED 31.5 g/dL Low 32.0-35.0 [facility] Comment on above: Performed By: #### L [id number] #### [facility] ([facility]) [address] [place] [address] Hematocrit (Bld) [Volume fraction] 26.0 % Low 36.0-48.0 [facility] Comment on above: Performed By: #### L [id number] #### [facility] [address] [place] [address] Hemoglobin (Bld) [Mass/Vol] 8.2 g/dL Low 12.0-15.0 [facility] Comment on above: Performed By: #### L [id number] #### [facility] ([facility]) [address] [place] [address] MCH (RBC) [Entitic mass] 30.4 pg Normal 27.0-33.0 [facility] Comment on above: Performed By: #### L [id number] #### [facility] ([facility]) [address] [place] [address] MCV (RBC) [Entitic vol] 96.3 fL Normal 82.0-98.0 [facility] Comment on above: Performed By: #### L [id number] #### [facility] ([facility]) [address] [place] [address] NRBC (PER 100 WBCS) BY AUTOMATED COUNT 2.0 % High 0 [facility] Comment on above: Performed By: #### L [id number] #### [facility] ([facility]) [address] [place] [address] PLATELETS (10*3/UL) IN BLOOD AUTOMATED COUNT 136 10*3/uL Low 150-400 [facility] Comment on above: Performed By: #### L [id number] #### [facility] ([facility]) [address] [place] [address] RBC (Bld) [#/Vol] 2.70 10*6/uL Low 3.80-5.00 [facility] Comment on above: Performed By: #### L [id number] #### [facility] [address] [place] [address] WBC (Bld) [#/Vol] 10.20 10*3/uL Normal 4.00-10.60 [facility] Comment on above: Performed By: #### L [id number] #### [facility] ([facility]) [address] [place] [address] CONSULTon 11-22-2023 CONSULT hydrographic engineer Brenda deleon Note Visit Date: 11/22/2023 Patient Name: Celia Menon Date of : 1945 Reason for Consult: An Inpatient consult to Wound/ Ostomy Nurse was placed by Angel Hogan PA-C. The reason for the consult was documented as skin tears from frequent turns, DTI to L heel . After a skin assessment, the patient was found to have deep tissue injuries to the left heel, coccyx, and back. The patient was also noted to have a partial thickness venous wound to the left lower extremity. The above wounds were documented after admission. Orders have been placed for treatment. [facility]ON will follow-up with the patient while admitted, as available. *Staff nurses are responsible for performing treatments and interventions as ordered. Recommended care: Wound location: Left Heel, Sacrum, Back, Left Lower Extremity venous wound Wash wound with normal saline. Pat wound and surrounding area dry. Apply skin prep to the zarina-wound and allow to dry for 10 seconds. Cover with Allevyn Gentle Boarder or other brand of foam dressing. Change the dressing every 3 days and as needed for soiling. Wound Care Prevention: Dressing applied for pressure redistribution, Pillows applied for pressure redistribution, and Patient/Staff were educated on the importance of frequent turns in bed to avoid prolonged pressure on high-risk area. Focused skin assessment performed Situation/ background: History of wound: Celia is a 78 year old female patient who presented to the ED on 11/13/23 following a fall. Barriers to care: Patient requires assistance with all wound care at this time. Problems identified: New hospital acquired pressure injury - location Left Heel, stage deep tissue injury, etiology and stage confirmed by SEN Louie. New hospital acquired pressure injury - location sacrum, stage deep tissue injury, etiology and stage confirmed by SEN Louie. New hospital acquired pressure injury - location back, stage deep tissue injury, etiology and stage confirmed by SEN Louie. Discharge Planning: Patient to discharge to a care facility., Patient to follow up with MD., Patient requires assistance to care for their wound after discharge., and Patient will need to be given the supplies required to care for their wound after discharge Teaching performed: Patient was educated on the process of how to care for their wound after discharge. and Further teaching is necessary. Tolerance of dressings: Patient tolerated well with PO pain medication. Number of staff and time required for dressin, 15 minutes Photos: 11/22/2023 Middle Back 11/22/2023 Middle Back 11/22/2023 Middle Back 11/22/2023 Sacrum 11/22/2023 Sacrum 11/22/2023 Left Heel 11/22/2023 Left Heel 11/22/2023 Left Heel 11/22/2023 Left Lower Extremity Pertinent Labs: Albumin Date Value Ref Range Status 11/19/2023 2.1 (L) 3.5 - 5.7 g/dL Final Wound Assessment: Wound 11/14/23 Leg Anterior;Left;Upper (Active) Site Assessment Painful;[place];Purple 11/22/23222 Zarina-Wound Assessment Blistered;Painful;[place] ;Purple 11/22/23222 Closure Jennings 11/22/23222 Drainage Description Red 11/22/23222 Drainage Amount Moderate 11/22/23222 Dressing Gauze;ABD;Transparent film 11/22/23222 Dressing Changed New 11/22/23222 Dressing Status Clean;Dry;Intact 11/22/23222 Margins Well-defined edges 11/22/23222 Wound 11/16/23 Abdomen Upper (Active) Site Assessment [place] 11/22/23222 Zarina-Wound Assessment Intact 11/22/23222 Drainage Description Serosanguineous 11/22/23222 Drainage Amount Scant 11/22/23222 Treatments Cleansed 11/22/23222 Dressing Gauze;Transparent film 11/22/23222 Dressing Changed New 11/22/23222 Dressing Status Clean;Dry;Intact 11/22/23222 Wound 11/19/23 Venous Ulcer Pretibial Left;Anterior;Distal (Active) Wound Image 11/22/23 1014 Site Assessment Red;Painful 11/22/23 1156 Zarina-Wound Assessment Yellow-brown (Hemosiderin staining) 11/22/23 1156 Wound Length (cm) 4 cm 11/22/23 115 Wound Width (cm) 4 cm 11/22/23 115 Wound Surface Area (cm^2) 16 cm^2 11/22/23 115 Wound Depth (cm) 0.1 cm 11/22/23 115 Wound Volume (cm^3) 1.6 cm^3 11/22/23 115 Closure None 11/22/23 115 Drainage Description Serosanguineous 11/22/23 115 Drainage Amount Small 11/22/23 115 Treatments Cleansed 11/22/231155 Dressing Foam 11/22/231155 Dressing Changed Changed 11/22/231155 Dressing Status Clean;Dry;Intact 11/21/232328 State of Healing Non-granulated tissue 11/22/231155 Wound Bed Granulation (%) 0 % 11/22/231155 Wound Bed Epithelium (%) 0 % 11/22/231155 Wound Bed Non-Granulation (%) 100 % 11/22/231155 Wound Bed Slough (%) 0 % 11/22/231155 Wound Bed Eschar (%) 0 % 11/22/231155 Margins Attached edges;Poorly defined 11/22/231155 Non-staged Wound Description Partial thickness 11/22/231155 Wound 11/21/23 Pressure Injury Back (Active) Site Assessment Re (more content not included)... Normal [facility] MAGNESIUMon 11-22-2023 Magnesium [Mass/Vol] 2.0 mg/dL Normal 1.9-2.7 [facility] Comment on above: Performed By: #### L [id number] #### [facility] ([facility]) [address] [place] [address] MANUAL DIFFERENTIALon 2023 ANISOCYTOSIS PRESENCE IN BLOOD BY LIGHT MICROSCOPY Moderate Normal [facility] Comment on above: Performed By: #### L [id number] #### [facility] ([facility]) [address] [place] [address] BASOPHILS (10*3/UL) IN BLOOD BY CALCULATION 0.00 10*3/uL Normal 0.00-0.20 [facility] Comment on above: Performed By: #### L [id number] #### [facility] ([facility]) [address] [place] [address] BASOPHILS/100 LEUKOCYTES IN BLOOD BY AUTOMATED COUNT 0.0 % Normal 0.0-1.0 [facility] Comment on above: Performed By: #### L [id number] #### [facility] ([facility]) [address] [place] [address] EOSINOPHILS (10*3/UL) IN BLOOD BY CALCULATION 0.00 10*3/uL Normal 0.00-0.50 [facility] Comment on above: Performed By: #### L [id number] #### [facility] ([facility]) [address] [place] [address] EOSINOPHILS/100 LEUKOCYTES IN BLOOD BY AUTOMATED COUNT 0.0 % Normal 0.0-6.0 [facility] Comment on above: Performed By: #### L [id number] #### [facility] ([facility]) [address] [place] [address] LYMPHOCYTES (10*3/UL) IN BLOOD BY CALCULATION 1.55 10*3/uL Normal 1.20-4.00 [facility] Comment on above: Performed By: #### L [id number] #### [facility] ([facility]) [address] [place] [address] LYMPHOCYTES/100 LEUKOCYTES IN BLOOD BY AUTOMATED COUNT 15.2 % Low 20.0-45.0 [facility] Comment on above: Performed By: #### L [id number] #### [facility] ([facility]) [address] [place] [address] MACROCYTES (PRESENCE) IN BLOOD BY LIGHT MICROSCOPY Slight Normal [facility] Comment on above: Performed By: #### L [id number] #### [facility] ([facility]) [address] [place] [address] METAMYELOCYTES (10*3/UL) IN BLOOD BY CALCULATION 0.70 10*3/uL High 0.00 [facility] Comment on above: Performed By: #### L [id number] #### [facility] ([facility]) [address] [place] [address] METAMYELOCYTES/100 LEUKOCYTES IN BLOOD CELLAVISION 6.9 % High 0.0-0.0 [facility] Comment on above: Performed By: #### L [id number] #### [facility] ([facility]) [address] [place] [address] MONOCYTES (10*3/UL) IN BLOOD BY CALCUATION 0.29 10*3/uL Normal 0.10-1.00 [facility] Comment on above: Performed By: #### L [id number] #### [facility] ([facility]) [address] [place] [address] MONOCYTES/100 LEUKOCYTES IN BLOOD BY AUTOMATED COUNT 2.8 % Low 5.0-12.0 [facility] Comment on above: Performed By: #### L [id number] #### [facility] ([facility]) [address] [place] [address] MYELOCYTES (10*3/UL) IN BLOOD BY CALCULATION 0.49 10*3/uL High 0.00 [facility] Comment on above: Performed By: #### L [id number] #### [facility] ([facility]) [address] [place] [address] MYELOCYTES/100 LEUKOCYTES IN BLOOD CELLAVISION 4.8 % High 0.0-0.0 [facility] Comment on above: Performed By: #### L [id number] #### [facility] ([facility]) [address] [place] [address] NEUTROPHILS (10*3/UL) IN BLOOD BY CALCULATION 7.1 10*3/uL Normal 1.6-7.6 [facility] Comment on above: Performed By: #### L [id number] #### [facility] ([facility]) [address] [place] [address] NEUTROPHILS/100 LEUKOCYTES IN BLOOD BY AUTOMATED COUNT 69.6 % Normal 40.0-72.0 [facility] Comment on above: Performed By: #### L [id number] #### [facility] ([facility]) [address] [place] [address] NUCLEATED RED BLOOD CELLS IN BLOOD BY LIGHT MICROSCOPY Present Normal [facility] Comment on above: Performed By: #### L [id number] #### [facility] ([facility]) [address] [place] [address] PLASMA CELLS/100 LEUKOCYTES IN BLOOD 0 % Normal 0 [facility] Comment on above: Performed By: #### L [id number] #### [facility] ([facility]) [address] [place] [address] PLATELETS GIANT PRESENCE IN BLOOD BY LIGHT MICROSCOPY Present Normal [facility] Comment on above: Performed By: #### L [id number] #### [facility] ([facility]) [address] [place] [address] POIKILOCYTOSIS (PRESENCE) IN BLOOD BY LIGHT MICROSCOPY Slight Normal [facility] Comment on above: Performed By: #### L [id number] #### [facility] ([facility]) [address] [place] [address] POLYCHROMASIA IN BLOOD BY LIGHT MICROSCOPY Slight Normal [facility] Comment on above: Performed By: #### L [id number] #### [facility] ([facility]) [address] [place] [address] PROMYELOCYTES (10*3/UL) IN BLOOD BY CALCULATION 0.07 10*3/uL High 0.00 [facility] Comment on above: Performed By: #### L [id number] #### [facility] ([facility]) [address] [place] [address] PROMYELOCYTES/100 LEUKOCYTES IN BLOOD CELLAVISION 0.7 % High 0.0-0.0 [facility] Comment on above: Performed By: #### L [id number] #### [facility] ([facility]) [address] [place] [address] VARIANT LYMPHOCYTES (10*3/UL) IN BLOOD BY CALCULATION 0.00 10*3/uL Normal 0.00 [facility] Comment on above: Performed By: #### L [id number] #### [facility] ([facility]) [address] [place] [address] VARIANT LYMPHOCYTES/100 LEUKOCYTES IN BLOOD CELLAVISION 0.0 % Normal 0.0-0.0 [facility] Comment on above: Performed By: #### L [id number] #### [facility] ([facility]) [address] [place] [address] NURSNOTEon 11-22-2023 NURSNOTE Report given to ms rojas from [facility]. Two rings found inside patient's chart are placed back onto patient's fingers. Patient aware of the rings back on her finger. Normal [facility] PHOSPHORUSon 11-22-2023 Magnesium [Mass/Vol] 2.3 mg/dL Low 2.5-5.0 [facility] Comment on above: Performed By: #### L [id number] #### [facility] ([facility]) [address] [place] [address] PROTIME-INRon 11-22-2023 INR IN PPP BY COAGULATION ASSAY 1.22 High 0.90-1.10 [facility] Comment on above: Result Comment: [facility] P RECOMMENDED INR FOR WARFARIN THERAPY CONDITION INR PROPHYLAXIS OF VENOUS THROMBOSIS 2-3 (HIGH-RISK SURGERY) TREATMENT OF VENOUS THROMBOSIS 2-3 TREATMENT OF PULMONARY EMBOLISM 2-3 PREVENTION OF SYSTEMIC EMBOLISM: 2-3 ACUTE MYOCARDIAL INFARCTION TISSUE HEART VALVES VALVULAR HEART DISEASE ATRIAL FIBRILLATION RECURRENT SYSTEMIC EMBOLISM MECHANICAL HEART VALVE 2.5-3.5 FROM: ORAL ANTICOAGULANTS. MECHANISM OF ACTION, CLINICAL EFFECTIVENESS, AND OPTIMAL THERAPEUTIC RANGE. CHEST 1995;108:231S-246S. Performed By: #### L [id number] #### [facility] [address] [place] [address] PROTHROMBIN TIME (PT) IN PPP BY COAGULATION ASSAY 15.5 Seconds High 12.3-14.8 [facility] Comment on above: Performed By: #### L [id number] #### [facility] [address] [place] [address] BASIC METABOLIC PANELon 07-0 Anion gap [Moles/Vol] 10 mmol/L Normal 7-20 [facility] Comment on above: Performed By: #### L [id number] #### [facility] ([facility]) [address] [place] [address] Calcium [Mass/Vol] 7.4 mg/dL Low 8.6-10.3 [facility] Comment on above: Performed By: #### L [id number] #### [facility] [address] [place] [address] Chloride [Moles/Vol] 104 mmol/L Normal 98-107 [facility] Comment on above: Performed By: #### L [id number] #### [facility] ([facility]) [address] [place] [address] CO2 [Moles/Vol] 30 mmol/L Normal 21-31 [facility] Comment on above: Performed By: #### L [id number] #### [facility] [address] [place] [address] Creatinine [Mass/Vol] 1.21 mg/dL High 0.60-1.20 [facility] Comment on above: Performed By: #### L [id number] #### [facility] ([facility]) [address] [place] [address] GLOMERULAR FILTRATION RATE ML/MIN/1.73 SQ M.PREDICTED 45.6 mL/min/1.73m*2 Low >60.0 [facility] Comment on above: Result Comment: The [facility]???s estimated glomerular filtration rate (eGFR) will no longer include consideration of race in its calculation. The National Kidney Foundation???s eGFR Task Force developed new recommendations for the estimation of the glomerular filtration rate in the [place] They recommend immediate implementation of the new equation refit without the race variable in all laboratories because the calculation does not include race. In addition to not including race in the calculation and reporting, it included diversity in its development, and has acceptable performance characteristics and potential consequences that do not disproportionately affect any one group of individuals. Performed By: #### L [id number] #### [facility] ([facility]) [address] [facility] [place] [place] [address] Glucose [Mass/Vol] 101 mg/dL High 70-100 [facility] Comment on above: Performed By: #### L [id number] #### [facility] ([facility]) [address] [facility] [place] [place] [address] Potassium [Moles/Vol] 4.1 mmol/L Normal 3.5-5.1 [facility] Comment on above: Performed By: #### L [id number] #### [facility] ([facility]) [address] [facility] [place] [place] [address] Sodium [Moles/Vol] 140 mmol/L Normal 136-145 [facility] Comment on above: Performed By: #### L [id number] #### [facility] ([facility]) [address] [facility] [place] [place] [address] Urea nitrogen [Mass/Vol] 41 mg/dL High 7-25 [facility] Comment on above: Performed By: #### L [id number] #### [facility] ([facility]) [address] [facility] [place] [address] UREA NITROGEN/CREATININE (MASS RATIO) IN SER/PLAS 33.9 Normal [facility] Comment on above: Performed By: #### L [id number] #### [facility] ([facility]) [address] [facility] [place] [place] [address] CBC WITH AUTO DIFFERENTIALon 11-21-2023 Erythrocyte distribution width (RBC) [Ratio] 19.1 % High 11.5-15.0 [facility] Comment on above: Performed By: #### L [id number] #### [facility] ([facility]) [address] [place] [address] ERYTHROCYTE MEAN CORPUSCULAR HEMOGLOBIN CONCENTRATION (G/DL) BY AUTOMATED 32.3 g/dL Normal 32.0-35.0 [facility] Comment on above: Performed By: #### L [id number] #### [facility] [address] [place] [address] Hematocrit (Bld) [Volume fraction] 25.7 % Low 36.0-48.0 [facility] Comment on above: Performed By: #### L [id number] #### [facility] ([facility]) [address] [place] [address] Hemoglobin (Bld) [Mass/Vol] 8.3 g/dL Low 12.0-15.0 [facility] Comment on above: Performed By: #### L [id number] #### [facility] ([facility]) [address] [place] [address] MCH (RBC) [Entitic mass] 29.7 pg Normal 27.0-33.0 [facility] Comment on above: Performed By: #### L [id number] #### [facility] ([facility]) [address] [place] [address] MCV (RBC) [Entitic vol] 92.1 fL Normal 82.0-98.0 [facility] Comment on above: Performed By: #### L [id number] #### [facility] ([facility]) [address] [place] [address] NRBC (PER 100 WBCS) BY AUTOMATED COUNT 8.1 % High 0 [facility] Comment on above: Performed By: #### L [id number] #### [facility] ([facility]) [address] [place] [address] PLATELETS (10*3/UL) IN BLOOD AUTOMATED COUNT 134 10*3/uL Low 150-400 [facility] Comment on above: Performed By: #### L [id number] #### [facility] [address] [place] [address] RBC (Bld) [#/Vol] 2.79 10*6/uL Low 3.80-5.00 [facility] Comment on above: Performed By: #### L [id number] #### [facility] ([facility]) [address] [place] [address] WBC (Bld) [#/Vol] 13.21 10*3/uL High 4.00-10.60 [facility] Comment on above: Performed By: #### L [id number] #### [facility] ([facility]) [address] [place] [address] HEMOGLOBIN AND HEMATOCRIT, B LOODon 11-21-2023 Hematocrit (Bld) [Volume fraction] 25.9 % Low 36.0-48.0 [facility] Comment on above: Performed By: #### L [id number] #### [facility] ([facility]) [address] [place] [address] Hemoglobin (Bld) [Mass/Vol] 8.3 g/dL Low 12.0-15.0 [facility] Comment on above: Performed By: #### L [id number] #### [facility] ([facility]) [address] [place] [address] MAGNESIUMon 11-21-2023 Magnesium [Mass/Vol] 2.1 mg/dL Normal 1.9-2.7 [facility] Comment on above: Performed By: #### L [id number] #### [facility] ([facility]) [address] [place] [address] MANUAL DIFFERENTIALon 2023 BASOPHILS (10*3/UL) IN BLOOD BY CALCULATION 0.00 10*3/uL Normal 0.00-0.20 [facility] Comment on above: Performed By: #### L [id number] #### [facility] ([facility]) [address] [place] [address] BASOPHILS/100 LEUKOCYTES IN BLOOD BY AUTOMATED COUNT 0.0 % Normal 0.0-1.0 [facility] Comment on above: Performed By: #### L [id number] #### [facility] ([facility]) [address] [place] [address] EOSINOPHILS (10*3/UL) IN BLOOD BY CALCULATION 0.09 10*3/uL Normal 0.00-0.50 [facility] Comment on above: Performed By: #### L [id number] #### [facility] ([facility]) [address] [place] [address] EOSINOPHILS/100 LEUKOCYTES IN BLOOD BY AUTOMATED COUNT 0.7 % Normal 0.0-6.0 [facility] Comment on above: Performed By: #### L [id number] #### [facility] ([facility]) [address] [place] [address] LYMPHOCYTES (10*3/UL) IN BLOOD BY CALCULATION 1.27 10*3/uL Normal 1.20-4.00 [facility] Comment on above: Performed By: #### L [id number] #### [facility] ([facility]) [address] [place] [address] LYMPHOCYTES/100 LEUKOCYTES IN BLOOD BY AUTOMATED COUNT 9.6 % Low 20.0-45.0 [facility] Comment on above: Performed By: #### L [id number] #### [facility] ([facility]) [address] [place] [address] METAMYELOCYTES (10*3/UL) IN BLOOD BY CALCULATION 0.45 10*3/uL High 0.00 [facility] Comment on above: Performed By: #### L [id number] #### [facility] ([facility]) [address] [place] [address] METAMYELOCYTES/100 LEUKOCYTES IN BLOOD CELLAVISION 3.4 % High 0.0-0.0 [facility] Comment on above: Performed By: #### L [id number] #### [facility] ([facility]) [address] [place] [address] MONOCYTES (10*3/UL) IN BLOOD BY CALCUATION 0.63 10*3/uL Normal 0.10-1.00 [facility] Comment on above: Performed By: #### L [id number] #### [facility] ([facility]) [address] [place] [address] MONOCYTES/100 LEUKOCYTES IN BLOOD BY AUTOMATED COUNT 4.8 % Low 5.0-12.0 [facility] Comment on above: Performed By: #### L [id number] #### [facility] ([facility]) [address] [place] [address] MYELOCYTES (10*3/UL) IN BLOOD BY CALCULATION 0.81 10*3/uL High 0.00 [facility] Comment on above: Performed By: #### L [id number] #### [facility] ([facility]) [address] [place] [address] MYELOCYTES/100 LEUKOCYTES IN BLOOD CELLAVISION 6.1 % High 0.0-0.0 [facility] Comment on above: Performed By: #### L [id number] #### [facility] ([facility]) [address] [place] [address] NEUTROPHILS (10*3/UL) IN BLOOD BY CALCULATION 9.8 10*3/uL High 1.6-7.6 [facility] Comment on above: Performed By: #### L [id number] #### [facility] ([facility]) [address] [place] [address] NEUTROPHILS/100 LEUKOCYTES IN BLOOD BY AUTOMATED COUNT 74.0 % High 40.0-72.0 [facility] Comment on above: Performed By: #### L [id number] #### [facility] ([facility]) [address] [place] [address] NUCLEATED RED BLOOD CELLS IN BLOOD BY LIGHT MICROSCOPY Present Normal [facility] Comment on above: Performed By: #### L [id number] #### [facility] ([facility]) [address] [place] [address] PLASMA CELLS/100 LEUKOCYTES IN BLOOD 0 % Normal 0 [facility] Comment on above: Performed By: #### L [id number] #### [facility] ([facility]) [address] [place] [address] PROMYELOCYTES (10*3/UL) IN BLOOD BY CALCULATION 0.18 10*3/uL High 0.00 [facility] Comment on above: Performed By: #### L [id number] #### [facility] ([facility]) [address] [place] [address] PROMYELOCYTES/100 LEUKOCYTES IN BLOOD CELLAVISION 1.4 % High 0.0-0.0 [facility] Comment on above: Performed By: #### L [id number] #### [facility] ([facility]) [address] [place] [address] VARIANT LYMPHOCYTES (10*3/UL) IN BLOOD BY CALCULATION 0.00 10*3/uL Normal 0.00 [facility] Comment on above: Performed By: #### L [id number] #### [facility] ([facility]) [address] [place] [address] VARIANT LYMPHOCYTES/100 LEUKOCYTES IN BLOOD CELLAVISION 0.0 % Normal 0.0-0.0 [facility] Comment on above: Performed By: #### L [id number] #### [facility] ([facility]) [address] [place] [address] NURSNOTEon 11-21-2023 NURSNOTE Agent Based Modeler notified Angel with Trauma and Waldemar with Ortho that upon changing the patient, we discovered a new skin tear on the left side of her back. We also discovered that patient has a DTI on her Left heel. Both were covered with mepis with dates and initials. Legs and arms elevated on pillows. Patients hip dressing saturated again with blood upon moving the patient. Normal [facility] PHOSPHORUSon 11-21-2023 Magnesium [Mass/Vol] 2.7 mg/dL Normal 2.5-5.0 [facility] Comment on above: Performed By: #### L [id number] #### [facility] ([facility]) [address] [place] [address] PROTIME-INRon 11-21-2023 INR IN PPP BY COAGULATION ASSAY 1.18 High 0.90-1.10 [facility] Comment on above: Result Comment: [facility] P RECOMMENDED INR FOR [facility] THERAPY CONDITION INR PROPHYLAXIS OF VENOUS THROMBOSIS 2-3 (HIGH-RISK SURGERY) TREATMENT OF VENOUS THROMBOSIS 2-3 TREATMENT OF PULMONARY EMBOLISM 2-3 PREVENTION OF SYSTEMIC EMBOLISM: 2-3 ACUTE MYOCARDIAL INFARCTION TISSUE HEART VALVES VALVULAR HEART DISEASE ATRIAL FIBRILLATION RECURRENT SYSTEMIC EMBOLISM MECHANICAL HEART VALVE 2.5-3.5 FROM: ORAL ANTICOAGULANTS. MECHANISM OF ACTION, CLINICAL EFFECTIVENESS, AND OPTIMAL THERAPEUTIC RANGE. CHEST 1995;108:231S-246S. Performed By: #### L [id number] #### [facility] ([facility]) [address] [place] [address] PROTHROMBIN TIME (PT) IN PPP BY COAGULATION ASSAY 15.0 Seconds High 12.3-14.8 [facility] Comment on above: Performed By: #### L [id number] #### [facility] ([facility]) [address] [place] [address] 30on 11-20-2023 30 Problem: Pain - Adul t Goal: Verbalizes/displays adequate comfort level or baseline comfort level Outcome: Progressing Problem: Safety - Adult Goal: Free from fall injury Outcome: Progressing Problem: Discharge Planning Goal: Discharge to home or other facility with appropriate resources Outcome: Progressing Problem: Chronic Conditions and Co-morbidities Goal: Patient's chronic conditions and co-morbidity symptoms are monitored and maintained or improved Outcome: Progressing Problem: Safety - Medical Restraint Goal: Remains free of injury from restraints (Restraint for Interference with Planning Consultant) Outcome: Progressing Goal: Free from restraint(s) (Restraint for Interference with Planning Consultant) Outcome: Progressing Problem: Terminal Illness Goal: Patient's needs shall be met in a safe and nurturing environment Outcome: Progressing Problem: Communication Thought Process Goal: Effective communication in a Hospice environment Outcome: Progressing Goal: Participate in active listening and/or observation of patient's non-verbal communication Outcome: Progressing Problem: Emotional Distress Goal: Patient will exhibit decreased symptoms of distress Outcome: Progressing Goal: Verbalize understanding of the anxiety management plan Outcome: Progressing Problem: Psychosocial Status Goal: Communicate their psychosocial needs to the hospice team Outcome: Progressing Goal: [place] with care giving, psychosocial, and end of life issues Outcome: Progressing Goal: Communicate and/or document their end of life wishes Outcome: Progressing Problem: Spiritual Issues Goal: Satisfaction with the level/quality of spiritual care will be expressed Outcome: Progressing Goal: Personal sense of spiritual peace will be experienced Outcome: Progressing Goal: An opportunity to address specific spiritual issues will be provided Outcome: Progressing Problem: Anticipatory Grieving Goal: Patient and family will better understand the grief process Outcome: Progressing Goal: Patient and family will accept and/or tolerate other's individual grief responses Outcome: Progressing Goal: Family will be supportive of the patient and each other Outcome: Progressing Goal: Patient and family will progress toward acceptance of Outcome: Progressing Problem: Imminent Goal: Patient and family will better understand the grief process Outcome: Progressing Goal: Patient and family will accept and/or tolerate other's individual grief responses Outcome: Progressing Goal: Family will be supportive of the patient and each other Outcome: Progressing Goal: Patient and family will progress toward acceptance of Outcome: Progressing Problem: Respiratory Status Goal: Patient will report or be observed by nurse/caregiver to have decreased or relieved dyspnea Outcome: Progressing Goal: Family will verbalize an understanding of dyspnea management Outcome: Progressing Problem: Pain/Physical Discomfort Goal: Patient's pain/physical discomfort will be reduced to the level of patient's stated goal Outcome: Progressing Goal: Patient/Family/Caregiv er will verbalize understanding of the pain management plan Outcome: Progressing Problem: Nutritional Status Goal: Patient will be in control of what, how much, and when to eat Outcome: Progressing Goal: Mucous membranes will remain intact, moist, and clean of excessive secretions Outcome: Progressing Goal: Associated symptoms of anorexia will be managed Outcome: Progressing Goal: Family/Caregiver will verbalize understanding of anorexia in the dying patient and demonstrate comfort with the plan of care Outcome: Progressing Problem: Sleep Goal: Patient will demonstrate adequate sleep/rest pattern Outcome: Progressing Problem: Elimination Goal: Absence of diarrhea, constipation, and skin breakdown Outcome: Progressing The patient is Moderately Stable - Low risk of patient condition declining or worsening The patient's goals for the shift include Comfort The clinical goals for the shift include VSS Over the shift, the patient did make progress toward the following goals. Barriers to progression include confusion, patient critical status. Recommendations to address these barriers include frequent reassessments. Normal [facility] BASIC METABOLIC PANELon 07-0 Anion gap [Moles/Vol] 11 mmol/L Normal 7-20 [facility] Comment on above: Performed By: #### L [id number] #### [facility] ([facility]) [address] [place] [address] Calcium [Mass/Vol] 6.8 mg/dL Low 8.6-10.3 [facility] Comment on above: Performed By: #### L [id number] #### [facility] ([facility]) [address] [place] [address] Chloride [Moles/Vol] 102 mmol/L Normal 98-107 [facility] Comment on above: Performed By: #### L [id number] #### [facility] ([facility]) [address] [place] [address] CO2 [Moles/Vol] 29 mmol/L Normal 21-31 [facility] Comment on above: Performed By: #### L [id number] #### [facility] ([facility]) [address] [place] [address] Creatinine [Mass/Vol] 1.59 mg/dL High 0.60-1.20 [facility] Comment on above: Performed By: #### L [id number] #### [facility] ([facility]) [address] [place] [address] GLOMERULAR FILTRATION RATE ML/MIN/1.73 SQ M.PREDICTED 32.8 mL/min/1.73m*2 Low >60.0 [facility] Comment on above: Result Comment: The [facility]???s estimated glomerular filtration rate (eGFR) will no longer include consideration of race in its calculation. The National Kidney Foundation???s eGFR Task Force developed new recommendations for the estimation of the glomerular filtration rate in the [place] They recommend immediate implementation of the new equation refit without the race variable in all laboratories because the calculation does not include race. In addition to not including race in the calculation and reporting, it included diversity in its development, and has acceptable performance characteristics and potential consequences that do not disproportionately affect any one group of individuals. Performed By: #### L [id number] #### [facility] ([facility]) [address] [facility] [place] [address] Glucose [Mass/Vol] 116 mg/dL High 70-100 [facility] Comment on above: Performed By: #### L [id number] #### [facility] ([facility]) [address] [place] [address] Potassium [Moles/Vol] 4.4 mmol/L Normal 3.5-5.1 [facility] Comment on above: Performed By: #### L [id number] #### [facility] ([facility]) [address] [place] [address] Sodium [Moles/Vol] 138 mmol/L Normal 136-145 [facility] Comment on above: Performed By: #### L [id number] #### [facility] ([facility]) [address] [place] [address] Urea nitrogen [Mass/Vol] 47 mg/dL High 7-25 [facility] Comment on above: Performed By: #### L [id number] #### [facility] ([facility]) [address] [place] [address] UREA NITROGEN/CREATININE (MASS RATIO) IN SER/PLAS 29.6 Normal [facility] Comment on above: Performed By: #### L [id number] #### [facility] [address] [place] [address] CALCIUM, IONIZEDon CALCIUM IONIZED (MMOL/L) IN BLOOD 0.97 mmol/L Low 1.15-1.33 [facility] Comment on above: Performed By: #### L [id number] ####[facility] [id number] [place] [address] [place] CBCon 11-20-2023 Erythrocyte distribution width (RBC) [Ratio] 18.4 % High 11.5-15.0 [facility] Comment on above: Performed By: #### L [id number] #### [facility] ([facility]) [address] [place] [address] ERYTHROCYTE MEAN CORPUSCULAR HEMOGLOBIN CONCENTRATION (G/DL) BY AUTOMATED 32.6 g/dL Normal 32.0-35.0 [facility] Comment on above: Performed By: #### L [id number] #### [facility] ([facility]) [address] [place] [address] Hematocrit (Bld) [Volume fraction] 24.2 % Low 36.0-48.0 [facility] Comment on above: Performed By: #### L [id number] #### [facility] ([facility]) [address] [place] [address] Hemoglobin (Bld) [Mass/Vol] 7.9 g/dL Low 12.0-15.0 [facility] Comment on above: Performed By: #### L [id number] #### [facility] ([facility]) [address] [place] [address] MCH (RBC) [Entitic mass] 29.9 pg Normal 27.0-33.0 [facility] Comment on above: Performed By: #### L [id number] #### [facility] [address] [place] [address] MCV (RBC) [Entitic vol] 91.7 fL Normal 82.0-98.0 [facility] Comment on above: Performed By: #### L [id number] #### [facility] [address] [place] [address] PLATELETS (10*3/UL) IN BLOOD AUTOMATED COUNT 133 10*3/uL Low 150-400 [facility] Comment on above: Performed By: #### L [id number] #### [facility] ([facility]) [address] [place] [address] RBC (Bld) [#/Vol] 2.64 10*6/uL Low 3.80-5.00 [facility] Comment on above: Performed By: #### L [id number] #### [facility] [address] [place] [address] WBC (Bld) [#/Vol] 13.49 10*3/uL High 4.00-10.60 [facility] Comment on above: Performed By: #### L [id number] #### [facility] ([facility]) [address] [place] [address] CBC WITH AUTO DIFFERENTIALon 11-20-2023 Erythrocyte distribution width (RBC) [Ratio] 22.2 % High 11.5-15.0 [facility] Comment on above: Performed By: #### L [id number] #### [facility] ([facility]) [address] [place] [address] ERYTHROCYTE MEAN CORPUSCULAR HEMOGLOBIN CONCENTRATION (G/DL) BY AUTOMATED 31.1 g/dL Low 32.0-35.0 [facility] Comment on above: Performed By: #### L [id number] #### [facility] [address] [place] [address] Hematocrit (Bld) [Volume fraction] 18.0 % Low 36.0-48.0 [facility] Comment on above: Performed By: #### L [id number] #### [facility] [address] [place] [address] Hemoglobin (Bld) [Mass/Vol] 5.6 g/dL Invalid Interpretation Code 12.0-15.0 [facility] Comment on above: Performed By: #### L [id number] #### [facility] ([facility]) [address] [place] [address] MCH (RBC) [Entitic mass] 29.3 pg Normal 27.0-33.0 [facility] Comment on above: Performed By: #### L [id number] #### [facility]) [address] [place] [address] MCV (RBC) [Entitic vol] 94.2 fL Normal 82.0-98.0 [facility] Comment on above: Performed By: #### L [id number] #### [facility] ([facility]) [address] [place] [address] NRBC (PER 100 WBCS) BY AUTOMATED COUNT 11.3 % High 0 [facility] Comment on above: Performed By: #### L [id number] #### [facility] ([facility]) [address] [place] [address] PLATELETS (10*3/UL) IN BLOOD AUTOMATED COUNT 139 10*3/uL Low 150-400 [facility] Comment on above: Performed By: #### L [id number] #### [facility] ([facility]) [address] [place] [address] RBC (Bld) [#/Vol] 1.91 10*6/uL Low 3.80-5.00 [facility] Comment on above: Performed By: #### L [id number] #### [facility] ([facility]) [address] [place] [address] WBC (Bld) [#/Vol] 13.93 10*3/uL High 4.00-10.60 [facility] Comment on above: Performed By: #### L [id number] #### [facility] ([facility]) [address] [place] [address] CKon 11-20-2023 CREATINE KINASE (U/L) IN SER/PLAS 239.0 U/L High 30.0-223.0 [facility] Comment on above: Performed By: #### L [id number] #### [facility] [address] [place] [address] HEMOGLOBIN AND HEMATOCRIT, B LOODon 11-20-2023 Hematocrit (Bld) [Volume fraction] 22.7 % Low 36.0-48.0 [facility] Comment on above: Performed By: #### L [id number] #### [facility] ([facility]) [address] [place] [address] Hemoglobin (Bld) [Mass/Vol] 7.2 g/dL Low 12.0-15.0 [facility] Comment on above: Performed By: #### L [id number] #### [facility] ([facility]) [address] [place] [address] Hematocrit (Bld) [Volume fraction] 18.7 % Low 36.0-48.0 [facility] Comment on above: Performed By: #### L [id number] #### [facility] ([facility]) [address] [place] [address] Hemoglobin (Bld) [Mass/Vol] 5.8 g/dL Invalid Interpretation Code 12.0-15.0 [facility] Comment on above: Performed By: #### L [id number] #### [facility] ([facility]) [address] [place] [address] MAGNESIUMon 11-20-2023 Magnesium [Mass/Vol] 2.1 mg/dL Normal 1.9-2.7 [facility] Comment on above: Performed By: #### L [id number] #### [facility] ([facility]) [address] [place] [address] MANUAL DIFFERENTIALon 2023 ANISOCYTOSIS PRESENCE IN BLOOD BY LIGHT MICROSCOPY Moderate Normal [facility] Comment on above: Performed By: #### L [id number] #### [facility] ([facility]) [address] [place] [address] BASOPHILS (10*3/UL) IN BLOOD BY CALCULATION 0.00 10*3/uL Normal 0.00-0.20 [facility] Comment on above: Performed By: #### L [id number] #### [facility] ([facility]) [address] [place] [address] BASOPHILS/100 LEUKOCYTES IN BLOOD BY AUTOMATED COUNT 0.0 % Normal 0.0-1.0 [facility] Comment on above: Performed By: #### L [id number] #### [facility] [address] [place] [address] EOSINOPHILS (10*3/UL) IN BLOOD BY CALCULATION 0.00 10*3/uL Normal 0.00-0.50 [facility] Comment on above: Performed By: #### L [id number] #### [facility] ([facility]) [address] [place] [address] EOSINOPHILS/100 LEUKOCYTES IN BLOOD BY AUTOMATED COUNT 0.0 % Normal 0.0-6.0 [facility] Comment on above: Performed By: #### L [id number] #### [facility] ([facility]) [address] [place] [address] HYPOCHROMIA (PRESENCE) IN BLOOD BY LIGHT MICROSCOPY Slight Normal [facility] Comment on above: Performed By: #### L [id number] #### [facility] ([facility]) [address] [place] [address] LYMPHOCYTES (10*3/UL) IN BLOOD BY CALCULATION 1.94 10*3/uL Normal 1.20-4.00 [facility] Comment on above: Performed By: #### L [id number] #### [facility] ([facility]) [address] [place] [address] LYMPHOCYTES/100 LEUKOCYTES IN BLOOD BY AUTOMATED COUNT 13.9 % Low 20.0-45.0 [facility] Comment on above: Performed By: #### L [id number] #### [facility] ([facility]) [address] [place] [address] METAMYELOCYTES (10*3/UL) IN BLOOD BY CALCULATION 0.39 10*3/uL High 0.00 [facility] Comment on above: Performed By: #### L [id number] #### [facility] ([facility]) [address] [place] [address] METAMYELOCYTES/100 LEUKOCYTES IN BLOOD CELLAVISION 2.8 % High 0.0-0.0 [facility] Comment on above: Performed By: #### L [id number] #### [facility] ([facility]) [address] [place] [address] MONOCYTES (10*3/UL) IN BLOOD BY CALCUATION 0.38 10*3/uL Normal 0.10-1.00 [facility] Comment on above: Performed By: #### L [id number] #### [facility] ([facility]) [address] [place] [address] MONOCYTES/100 LEUKOCYTES IN BLOOD BY AUTOMATED COUNT 2.7 % Low 5.0-12.0 [facility] Comment on above: Performed By: #### L [id number] #### [facility] ([facility]) [address] [place] [address] MYELOCYTES (10*3/UL) IN BLOOD BY CALCULATION 0.20 10*3/uL High 0.00 [facility] Comment on above: Performed By: #### L [id number] #### [facility] ([facility]) [address] [place] [address] MYELOCYTES/100 LEUKOCYTES IN BLOOD CELLAVISION 1.4 % High 0.0-0.0 [facility] Comment on above: Performed By: #### L [id number] #### [facility] ([facility]) [address] [place] [address] NEUTROPHILS (10*3/UL) IN BLOOD BY CALCULATION 10.8 10*3/uL High 1.6-7.6 [facility] Comment on above: Performed By: #### L [id number] #### [facility] ([facility]) [address] [place] [address] NEUTROPHILS/100 LEUKOCYTES IN BLOOD BY AUTOMATED COUNT 77.8 % High 40.0-72.0 [facility] Comment on above: Performed By: #### L [id number] #### [facility] ([facility]) [address] [place] [address] NUCLEATED RED BLOOD CELLS IN BLOOD BY LIGHT MICROSCOPY Present Normal [facility] Comment on above: Performed By: #### L [id number] #### [facility] ([facility]) [address] [place] [address] PLASMA CELLS/100 LEUKOCYTES IN BLOOD 0 % Normal 0 [facility] Comment on above: Performed By: #### L [id number] #### [facility] ([facility]) [address] [place] [address] PLATELETS GIANT PRESENCE IN BLOOD BY LIGHT MICROSCOPY Present Normal [facility] Comment on above: Performed By: #### L [id number] #### [facility] ([facility]) [address] [place] [address] POIKILOCYTOSIS (PRESENCE) IN BLOOD BY LIGHT MICROSCOPY Slight Normal [facility] Comment on above: Performed By: #### L [id number] #### [facility] ([facility]) [address] [place] [address] POLYCHROMASIA IN BLOOD BY LIGHT MICROSCOPY Slight Normal [facility] Comment on above: Performed By: #### L [id number] #### [facility] ([facility]) [address] [place] [address] PROMYELOCYTES (10*3/UL) IN BLOOD BY CALCULATION 0.20 10*3/uL High 0.00 [facility] Comment on above: Performed By: #### L [id number] #### [facility] ([facility]) [address] [place] [address] PROMYELOCYTES/100 LEUKOCYTES IN BLOOD CELLAVISION 1.4 % High 0.0-0.0 [facility] Comment on above: Performed By: #### L [id number] #### [facility] ([facility]) [address] [place] [address] VARIANT LYMPHOCYTES (10*3/UL) IN BLOOD BY CALCULATION 0.00 10*3/uL Normal 0.00 [facility] Comment on above: Performed By: #### L [id number] #### [facility] ([facility]) [address] [place] [address] VARIANT LYMPHOCYTES/100 LEUKOCYTES IN BLOOD CELLAVISION 0.0 % Normal 0.0-0.0 [facility] Comment on above: Performed By: #### L [id number] #### [facility] ([facility]) [address] [place] [address] NURSNOTEon 11-20-2023 NURSNOTE Agent Based Modeler and Aid gautam ed patients brief which caused Hip dressing to completely saturate the dressing and leak out with blood. Ortho immediately paged and changed dressing at bedside. Had to hold pressure on incision for several minutes to stop bleeding. Hbg at this time was 5.6. Waiting for further instructions from ortho at this time. Trama also aware of bleeding and hgb. Normal [facility] MARIA ENOTE Patient has critical HGB of 5.8. 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 Will transfuse emergently. Normal [facility] PATHOLOGY REVIEWon PATHOLOGY REVIEW Electronically christina d by Viktoriya Dominguez MD on 11/20/23 at 12:12 PM. [facility] Comment on above: Performed By: #### L [id number] #### [facility] ([facility]) [address] [place] [address] PHOSPHORUSon 11-20-2023 Magnesium [Mass/Vol] 3.2 mg/dL Normal 2.5-5.0 [facility] Comment on above: Performed By: #### L [id number] #### [facility] ([facility]) [address] [place] [address] PROTIME-INRon 11-20-2023 INR IN PPP BY COAGULATION ASSAY 3.65 High 0.90-1.10 [facility] Comment on above: Result Comment: [facility] P RECOMMENDED INR FOR [facility] THERAPY CONDITION INR PROPHYLAXIS OF VENOUS THROMBOSIS 2-3 (HIGH-RISK SURGERY) TREATMENT OF VENOUS THROMBOSIS 2-3 TREATMENT OF PULMONARY EMBOLISM 2-3 PREVENTION OF SYSTEMIC EMBOLISM: 2-3 ACUTE MYOCARDIAL INFARCTION TISSUE HEART VALVES VALVULAR HEART DISEASE ATRIAL FIBRILLATION RECURRENT SYSTEMIC EMBOLISM MECHANICAL HEART VALVE 2.5-3.5 FROM: ORAL ANTICOAGULANTS. MECHANISM OF ACTION, CLINICAL EFFECTIVENESS, AND OPTIMAL THERAPEUTIC RANGE. CHEST 1995;108:231S-246S. Performed By: #### L [id number] #### [facility] ([facility]) [address] [place] [address] PROTHROMBIN TIME (PT) IN PPP BY COAGULATION ASSAY 36.6 Seconds High 12.3-14.8 [facility] Comment on above: Performed By: #### L [id number] #### [facility] ([facility]) [address] [place] [address] INR IN PPP BY COAGULATION ASSAY 4.24 High 0.90-1.10 [facility] Comment on above: Result Comment: [facility] P RECOMMENDED INR FOR WARFARIN THERAPY CONDITION INR PROPHYLAXIS OF VENOUS THROMBOSIS 2-3 (HIGH-RISK SURGERY) TREATMENT OF VENOUS THROMBOSIS 2-3 TREATMENT OF PULMONARY EMBOLISM 2-3 PREVENTION OF SYSTEMIC EMBOLISM: 2-3 ACUTE MYOCARDIAL INFARCTION TISSUE HEART VALVES VALVULAR HEART DISEASE ATRIAL FIBRILLATION RECURRENT SYSTEMIC EMBOLISM MECHANICAL HEART VALVE 2.5-3.5 FROM: ORAL ANTICOAGULANTS. MECHANISM OF ACTION, CLINICAL EFFECTIVENESS, AND OPTIMAL THERAPEUTIC RANGE. CHEST 1995;108:231S-246S. Performed By: #### L [id number] #### [facility] ([facility]) [address] [place] [address] PROTHROMBIN TIME (PT) IN PPP BY COAGULATION ASSAY 41.1 Seconds High 12.3-14.8 [facility] Comment on above: Performed By: #### L [id number] #### [facility] ([facility]) [address] [place] [address] 30on 07-07-2024 30 The patient is Moderately Stable - Low risk of patient condition declining or worsening The patient's goals for the shift include SANDRA The clinical goals for the shift include VSS COMFORT Over the shift, the patient did not make progress toward the following goals. Barriers to progression include pain. Recommendations to address these barriers include pain control. Normal [facility] BASIC METABOLIC PANELon 07-0 Anion gap [Moles/Vol] 14 mmol/L Normal 7-20 [facility] Comment on above: Performed By: #### L [id number] #### [facility] ([facility]) [address] [place] [address] Calcium [Mass/Vol] 6.9 mg/dL Low 8.6-10.3 [facility] Comment on above: Performed By: #### L [id number] #### [facility] ([facility]) [address] [place] [address] Chloride [Moles/Vol] 99 mmol/L Normal 98-107 [facility] Comment on above: Performed By: #### L [id number] #### [facility] ([facility]) [address] [place] [address] CO2 [Moles/Vol] 28 mmol/L Normal 21-31 [facility] Comment on above: Performed By: #### L [id number] #### [facility] ([facility]) [address] [place] [address] Creatinine [Mass/Vol] 2.03 mg/dL High 0.60-1.20 [facility] Comment on above: Performed By: #### L [id number] #### [facility] [address] [place] [address] GLOMERULAR FILTRATION RATE ML/MIN/1.73 SQ M.PREDICTED 24.5 mL/min/1.73m*2 Low >60.0 [facility] Comment on above: Result Comment: The [facility]???s estimated glomerular filtration rate (eGFR) will no longer include consideration of race in its calculation. The [employer]???s eGFR Task Force developed new recommendations for the estimation of the glomerular filtration rate in the [place] They recommend immediate implementation of the new equation refit without the race variable in all laboratories because the calculation does not include race. In addition to not including race in the calculation and reporting, it included diversity in its development, and has acceptable performance characteristics and potential consequences that do not disproportionately affect any one group of individuals. Performed By: #### L [id number] #### [facility] ([facility]) [address] [facility] [place] [address] Glucose [Mass/Vol] 107 mg/dL High 70-100 [facility] Comment on above: Performed By: #### L [id number] #### [facility] ([facility]) [address] [facility] [place] [address] Potassium [Moles/Vol] 3.0 mmol/L Low 3.5-5.1 [facility] Comment on above: Performed By: #### L [id number] #### [facility] ([facility]) [address] [place] [address] Sodium [Moles/Vol] 138 mmol/L Normal 136-145 [facility] Comment on above: Performed By: #### L [id number] #### [facility] [address] [facility] [place] [address] Urea nitrogen [Mass/Vol] 49 mg/dL High 7-25 [facility] Comment on above: Performed By: #### L [id number] #### [facility] ([facility]) [address] [facility] [place] [address] UREA NITROGEN/CREATININE (MASS RATIO) IN SER/PLAS 24.1 Normal [facility] Comment on above: Performed By: #### L [id number] #### [facility] [address] [facility] [place] [address] CALCIUM, IONIZEDon 4 CALCIUM IONIZED (MMOL/L) IN BLOOD 0.91 mmol/L Low 1.15-1.33 [facility] Comment on above: Performed By: #### L [id number] #### [facility] [address] [place] [address] [place] CBC WITH AUTO DIFFERENTIALon 11-19-2023 Erythrocyte distribution width (RBC) [Ratio] 22.3 % High 11.5-15.0 [facility] Comment on above: Performed By: #### L [id number] #### [facility] ([facility]) [address] [place] [address] ERYTHROCYTE MEAN CORPUSCULAR HEMOGLOBIN CONCENTRATION (G/DL) BY AUTOMATED 31.6 g/dL Low 32.0-35.0 [facility] Comment on above: Performed By: #### L [id number] #### [facility] ([facility]) [address] [place] [address] Hematocrit (Bld) [Volume fraction] 19.6 % Low 36.0-48.0 [facility] Comment on above: Performed By: #### L [id number] #### [facility] ([facility]) [address] [place] [address] Hemoglobin (Bld) [Mass/Vol] 6.2 g/dL Low 12.0-15.0 [facility] Comment on above: Performed By: #### L [id number] #### [facility] ([facility]) [address] [place] [address] MCH (RBC) [Entitic mass] 29.2 pg Normal 27.0-33.0 [facility] Comment on above: Performed By: #### L [id number] #### [facility] [address] [place] [address] MCV (RBC) [Entitic vol] 92.5 fL Normal 82.0-98.0 [facility] Comment on above: Performed By: #### L [id number] #### [facility] [address] [place] [address] NRBC (PER 100 WBCS) BY AUTOMATED COUNT 9.5 % High 0 [facility] Comment on above: Performed By: #### L [id number] #### [facility] ([facility]) [address] [place] [address] PLATELETS (10*3/UL) IN BLOOD AUTOMATED COUNT 123 10*3/uL Low 150-400 [facility] Comment on above: Performed By: #### L [id number] #### [facility] ([facility]) [address] [place] [address] RBC (Bld) [#/Vol] 2.12 10*6/uL Low 3.80-5.00 [facility] Comment on above: Performed By: #### L [id number] #### [facility] ([facility]) [address] [place] [address] WBC (Bld) [#/Vol] 18.42 10*3/uL High 4.00-10.60 [facility] Comment on above: Performed By: #### L [id number] #### [facility] ([facility]) [address] [place] [address] HEPATIC FUNCTION PANELon Albumin [Mass/Vol] 2.1 g/dL Low 3.5-5.7 [facility] Comment on above: Performed By: #### L [id number] #### [facility] ([facility]) [address] [place] [address] ALP [Catalytic activity/Vol] 97 U/L Normal 34-104 [facility] Comment on above: Performed By: #### L [id number] #### [facility] ([facility]) [address] [place] [address] ALT [Catalytic activity/Vol] 29 U/L Normal 7-52 [facility] Comment on above: Performed By: #### L [id number] #### [facility] ([facility]) [address] [place] [address] AST [Catalytic activity/Vol] 89 U/L High 13-39 [facility] Comment on above: Performed By: #### L [id number] #### [facility] ([facility]) [address] [place] [address] Bilirubin [Mass/Vol] 0.9 mg/dL Normal 0.3-1.0 [facility] Comment on above: Performed By: #### L [id number] #### [facility] ([facility]) [address] [place] [address] Magnesium [Mass/Vol] 0.4 mg/dL High 0-0.2 [facility] Comment on above: Performed By: #### L [id number] #### [facility] ([facility]) [address] [place] [address] Protein [Mass/Vol] 4.0 g/dL Low 6.0-8.3 [facility] Comment on above: Performed By: #### L [id number] #### [facility] ([facility]) [address] [place] [address] LACTIC ACID WITH 4 HOUR REFL EXon 11-19-2023 LACTATE (MMOL/L) IN SER/PLAS 0.9 mmol/L Normal 0.5-2.2 [facility] Comment on above: Performed By: #### L [id number] #### [facility] ([facility]) [address] [place] [address] MAGNESIUMon 11-19-2023 Magnesium [Mass/Vol] 1.9 mg/dL Normal 1.9-2.7 [facility] Comment on above: Performed By: #### L [id number] #### [facility] ([facility]) [address] [place] [address] MANUAL DIFFERENTIALon 2023 ANISOCYTOSIS PRESENCE IN BLOOD BY LIGHT MICROSCOPY Moderate Normal [facility] Comment on above: Performed By: #### L [id number] #### [facility] ([facility]) [address] [place] [address] BASOPHILS (10*3/UL) IN BLOOD BY CALCULATION 0.00 10*3/uL Normal 0.00-0.20 [facility] Comment on above: Performed By: #### L [id number] #### [facility] ([facility]) [address] [place] [address] BASOPHILS/100 LEUKOCYTES IN BLOOD BY AUTOMATED COUNT 0.0 % Normal 0.0-1.0 [facility] Comment on above: Performed By: #### L [id number] #### [facility] ([facility]) [address] [place] [address] EOSINOPHILS (10*3/UL) IN BLOOD BY CALCULATION 0.00 10*3/uL Normal 0.00-0.50 [facility] Comment on above: Performed By: #### L [id number] #### [facility] ([facility]) [address] [place] [address] EOSINOPHILS/100 LEUKOCYTES IN BLOOD BY AUTOMATED COUNT 0.0 % Normal 0.0-6.0 [facility] Comment on above: Performed By: #### L [id number] #### [facility] ([facility]) [address] [place] [address] HYPOCHROMIA (PRESENCE) IN BLOOD BY LIGHT MICROSCOPY Moderate Normal [facility] Comment on above: Performed By: #### L [id number] #### [facility] ([facility]) [address] [place] [address] LYMPHOCYTES (10*3/UL) IN BLOOD BY CALCULATION 1.23 10*3/uL Normal 1.20-4.00 [facility] Comment on above: Performed By: #### L [id number] #### [facility] ([facility]) [address] [place] [address] LYMPHOCYTES/100 LEUKOCYTES IN BLOOD BY AUTOMATED COUNT 6.7 % Low 20.0-45.0 [facility] Comment on above: Performed By: #### L [id number] #### [facility] ([facility]) [address] [place] [address] MONOCYTES (10*3/UL) IN BLOOD BY CALCUATION 0.87 10*3/uL Normal 0.10-1.00 [facility] Comment on above: Performed By: #### L [id number] #### [facility] ([facility]) [address] [place] [address] MONOCYTES/100 LEUKOCYTES IN BLOOD BY AUTOMATED COUNT 4.7 % Low 5.0-12.0 [facility] Comment on above: Performed By: #### L [id number] #### [facility] ([facility]) [address] [place] [address] NEUTROPHILS (10*3/UL) IN BLOOD BY CALCULATION 15.8 10*3/uL High 1.6-7.6 [facility] Comment on above: Performed By: #### L [id number] #### [facility] ([facility]) [address] [place] [address] NEUTROPHILS/100 LEUKOCYTES IN BLOOD BY AUTOMATED COUNT 85.9 % High 40.0-72.0 [facility] Comment on above: Performed By: #### L [id number] #### [facility] ([facility]) [address] [place] [address] NUCLEATED RED BLOOD CELLS IN BLOOD BY LIGHT MICROSCOPY Present Normal [facility] Comment on above: Performed By: #### L [id number] #### [facility] ([facility]) [address] [place] [address] PLASMA CELLS/100 LEUKOCYTES IN BLOOD 0 % Normal 0 [facility] Comment on above: Performed By: #### L [id number] #### [facility] ([facility]) [address] [place] [address] PLATELETS GIANT PRESENCE IN BLOOD BY LIGHT MICROSCOPY Present Normal [facility] Comment on above: Performed By: #### L [id number] #### [facility] ([facility]) [address] [place] [address] POIKILOCYTOSIS (PRESENCE) IN BLOOD BY LIGHT MICROSCOPY Slight Normal [facility] Comment on above: Performed By: #### L [id number] #### [facility] ([facility]) [address] [place] [address] POLYCHROMASIA IN BLOOD BY LIGHT MICROSCOPY Slight Normal [facility] Comment on above: Performed By: #### L [id number] #### [facility] ([facility]) [address] [place] [address] PROMYELOCYTES (10*3/UL) IN BLOOD BY CALCULATION 0.50 10*3/uL High 0.00 [facility] Comment on above: Performed By: #### L [id number] #### [facility] ([facility]) [address] [place] [address] PROMYELOCYTES/100 LEUKOCYTES IN BLOOD CELLAVISION 2.7 % High 0.0-0.0 [facility] Comment on above: Performed By: #### L [id number] #### [facility] ([facility]) [address] [place] [address] VARIANT LYMPHOCYTES (10*3/UL) IN BLOOD BY CALCULATION 0.00 10*3/uL Normal 0.00 [facility] Comment on above: Performed By: #### L [id number] #### [facility] ([facility]) [address] [place] [address] VARIANT LYMPHOCYTES/100 LEUKOCYTES IN BLOOD CELLAVISION 0.0 % Normal 0.0-0.0 [facility] Comment on above: Performed By: #### L [id number] #### [facility] ([facility]) [address] [place] [address] NURSNOTEon 11-19-2023 NURSNOTE Agent Based Modeler notified Galdino y from trauma team that the patient has significant edema in RUE and was not notified that there was any previous infiltration, will be getting second IV for blood administration, no concern about swelling from trauma team at this time. Normal [facility] PHOSPHORUSon 11-19-2023 Magnesium [Mass/Vol] 4.1 mg/dL Normal 2.5-5.0 [facility] Comment on above: Performed By: #### L [id number] #### [facility] ([facility]) [address] [place] [address] POTASSIUMon 11-19-2023 Potassium [Moles/Vol] 3.7 mmol/L Normal 3.5-5.1 [facility] [place] [facility] Comment on above: Performed By: #### L [id number] #### [facility] ([facility]) [address] [place] [address] PROTIME-INRon 11-19-2023 INR IN PPP BY COAGULATION ASSAY 4.04 High 0.90-1.10 [facility] Comment on above: Result Comment: ACCC P RECOMMENDED INR FOR WARFARIN THERAPY CONDITION INR PROPHYLAXIS OF VENOUS THROMBOSIS 2-3 (HIGH-RISK SURGERY) TREATMENT OF VENOUS THROMBOSIS 2-3 TREATMENT OF PULMONARY EMBOLISM 2-3 PREVENTION OF SYSTEMIC EMBOLISM: 2-3 ACUTE MYOCARDIAL INFARCTION TISSUE HEART VALVES VALVULAR HEART DISEASE ATRIAL FIBRILLATION RECURRENT SYSTEMIC EMBOLISM MECHANICAL HEART VALVE 2.5-3.5 FROM: ORAL ANTICOAGULANTS. MECHANISM OF ACTION, CLINICAL EFFECTIVENESS, AND OPTIMAL THERAPEUTIC RANGE. CHEST 1995;108:231S-246S. Performed By: #### L [id number] ####[facility] ([facility])[address] [facility] [place] [address] PROTHROMBIN TIME (PT) IN PPP BY COAGULATION ASSAY 39.6 Seconds High 12.3-14.8 [facility] Comment on above: Performed By: #### L [id number] ####[facility] (BEAKER)[address] [place] [address] TYPE AND SCREENon 11-19-2023 AB SCREEN Negative Normal [facility] Comment on above: Performed By: #### L [id number] #### [facility] ([facility]) [address] [place] [address] ABO group Nom (Bld) O Normal [facility] Comment on above: Performed By: #### L [id number] #### [facility] (AKER) [address] [place] [address] RH TYPE IN BLOOD Positive Normal [facility] Comment on above: Performed By: #### L [id number] #### [facility] ([facility]) [address] [place] [address] 30on 11-18-2023 30 Problem: Pain - Adul t Goal: Verbalizes/displays adequate comfort level or baseline comfort level Outcome: Progressing Flowsheets (Taken 11/18/2023 1853) Verbalizes/displays adequate comfort level or baseline comfort level: Encourage patient to monitor pain and request assistance Assess pain using appropriate pain scale Administer analgesics based on type and severity of pain and evaluate response Consider cultural and social influences on pain and pain management Implement non-pharmacological measures as appropriate and evaluate response Notify Licensed Independent Practitioner if interventions unsuccessful or patient reports new pain Problem: Safety - Adult Goal: Free from fall injury Outcome: Progressing Flowsheets (Taken 11/18/2023 1055) Free from fall injury: Assess patient frequently for physical needs Identify cognitive and physical deficits and behaviors that affect risk of falls [place] fall precautions as indicated by assessment Educate patient/family on patient safety, including physical limitations Instruct patient to call for assistance with activity based on assessment Modify environment to reduce risk of injury Consider OT/PT consult to assist with strengthening/mobility Problem: Discharge Planning Goal: Discharge to home or other facility with appropriate resources Outcome: Progressing Flowsheets (Taken 11/18/2023 1055) Discharge to home or other facility with appropriate resources: Identify barriers to discharge with patient and caregiver Refer to discharge planning if patient needs post-hospital services based on physician order or complex needs related to functional status, cognitive ability or social support system Arrange for interpreters to assist at discharge as needed Identify discharge learning needs (meds, wound care, etc) Arrange for needed discharge resources and transportation as appropriate Normal [facility] 30on 11-17-2023 30 The patient is Moderately Stable - Low risk of patient condition declining or worsening The patient's goals for the shift include comfort The clinical goals for the shift include comfort Over the shift, the patient did not make progress toward the following goals. Barriers to progression include poor PO intake. Recommendations to address these barriers include meal encouragement. Normal [facility] 30 Daily Case Managemen t Update Multidisciplinary rounds have been completed. Barriers to Discharge: POD#3 ORIF L femur. TTWB LLE. Plan is to discharge back to [facility]. No precert needed. Diet: Dietary Orders (From admission, onward) Start Ordered 11/16/23 1610 Special Kitchen Request Once Comments: PLease autotray all meals 11/16/23 1610 11/16/23 0823 Regular Diet Diet effective now Question: Room Service? Answer: Yes 11/16/23 0822 11/16/23 0823 Special Kitchen Request Once Comments: Fried egg, sausage, toast with butter, coke x2 11/16/23 0822 Physician Expected Discharge Date: Discharge Delays: PT Six Click Score: 6 OT Six Click Score: PT Recommendations: OT Recommendations: Is expected discharge disposition appropriate for patient?: Yes New Consults: Consult Orders (From admission, onward) Start Ordered 11/15/23 0820 Inpatient consult to Interventional Radiology Once Specialty: Radiology Provider: (Not yet assigned) Question Answer Comment [facility] Group INTERVENTIONAL RADIOLOGY TEAM Reason for consult Other (comment) Comment Central access Level of Consultation Consultation and Management 11/15/23 0820 11/15/23 0759 Inpatient consult to Cardiology Once Specialty: Cardiology Provider: (Not yet assigned) Question Answer Comment [facility] CARDIOLOGY TEAM Reason for Consult? Pt in afib rvr, now on near max pressors Level of Consultation Consultation and Management 11/15/23 0758 11/13/23 2304 Inpatient Consult to Orthopaedic Surgery Once Specialty: Orthopaedic Surgery Provider: (Not yet assigned) Question Answer Comment [facility] ORTHOPAEDIC SURGERY TEAM Reason for Consult? Femur fx Level of Consultation Consultation and Management 11/13/23 2304 Therapy Orders (From admission, onward) Start Ordered 11/15/23 0157 PT eval and treat Until therapy completed Question: Reason for PT? Answer: Post muscular skeletal surgical procedure 11/15/23 0156 11/15/23 0157 OT eval and treat Until therapy completed Question: Reason for OT? Answer: Post muscular skeletal surgical procedure 11/15/23 0156 Normal [facility] 30 Problem: Pain - Adul t Goal: Verbalizes/displays adequate comfort level or baseline comfort level Outcome: Progressing Problem: Safety - Adult Goal: Free from fall injury Outcome: Progressing Problem: Discharge Planning Goal: Discharge to home or other facility with appropriate resources Outcome: Progressing Problem: Chronic Conditions and Co-morbidities Goal: Patient's chronic conditions and co-morbidity symptoms are monitored and maintained or improved Outcome: Progressing Problem: Safety - Medical Restraint Goal: Remains free of injury from restraints (Restraint for Interference with Planning Consultant) Outcome: Progressing Goal: Free from restraint(s) (Restraint for Interference with Planning Consultant) Outcome: Progressing Problem: Terminal Illness Goal: Patient's needs shall be met in a safe and nurturing environment Outcome: Progressing Problem: Communication Thought Process Goal: Effective communication in a Hospice environment Outcome: Progressing Goal: Participate in active listening and/or observation of patient's non-verbal communication Outcome: Progressing Problem: Emotional Distress Goal: Patient will exhibit decreased symptoms of distress Outcome: Progressing Goal: Verbalize understanding of the anxiety management plan Outcome: Progressing Problem: Psychosocial Status Goal: Communicate their psychosocial needs to the hospice team Outcome: Progressing Goal: [place] with care giving, psychosocial, and end of life issues Outcome: Progressing Goal: Communicate and/or document their end of life wishes Outcome: Progressing Problem: Spiritual Issues Goal: Satisfaction with the level/quality of spiritual care will be expressed Outcome: Progressing Goal: Personal sense of spiritual peace will be experienced Outcome: Progressing Goal: An opportunity to address specific spiritual issues will be provided Outcome: Progressing Problem: Anticipatory Grieving Goal: Patient and family will better understand the grief process Outcome: Progressing Goal: Patient and family will accept and/or tolerate other's individual grief responses Outcome: Progressing Goal: Family will be supportive of the patient and each other Outcome: Progressing Goal: Patient and family will progress toward acceptance of Outcome: Progressing Problem: Imminent Goal: Patient and family will better understand the grief process Outcome: Progressing Goal: Patient and family will accept and/or tolerate other's individual grief responses Outcome: Progressing Goal: Family will be supportive of the patient and each other Outcome: Progressing Goal: Patient and family will progress toward acceptance of Outcome: Progressing Problem: Respiratory Status Goal: Patient will report or be observed by nurse/caregiver to have decreased or relieved dyspnea Outcome: Progressing Goal: Family will verbalize an understanding of dyspnea management Outcome: Progressing Problem: Pain/Physical Discomfort Goal: Patient's pain/physical discomfort will be reduced to the level of patient's stated goal Outcome: Progressing Goal: Patient/Family/Caregiv er will verbalize understanding of the pain management plan Outcome: Progressing Problem: Nutritional Status Goal: Patient will be in control of what, how much, and when to eat Outcome: Progressing Goal: Mucous membranes will remain intact, moist, and clean of excessive secretions Outcome: Progressing Goal: Associated symptoms of anorexia will be managed Outcome: Progressing Goal: Family/Caregiver will verbalize understanding of anorexia in the dying patient and demonstrate comfort with the plan of care Outcome: Progressing Problem: Sleep Goal: Patient will demonstrate adequate sleep/rest pattern Outcome: Progressing Problem: Elimination Goal: Absence of diarrhea, constipation, and skin breakdown Outcome: Progressing The patient is Moderately Unstable - Medium risk of patient condition declining or worsening The patient's goals for the shift include Sleep The clinical goals for the shift include VSS, comfort, safety Over the shift, the patient did not make progress toward the following goals. Barriers to progression include mobility, mentation, critical status. Recommendations to address these barriers include frequent reassessments, reorientation, turns. Normal [facility] CONSULTon 11-17-2023 CONSULT [facility] CONSULT NOTE 11/17/2023 Patient Name: Celia Menon : 1945 ADVANCED DIRECTIVES: Legal Guardianship CODE STATUS: DNR CC REASON FOR CONSULTATION: Palliative medicine consult requested by Regla Salazar MD for Celia Menon who is 78 y.o. to assist with complex decision-making, symptom control, and goals of care. HPI: Celia Menon is a 78 y.o. female who was admitted on 11/13/2023 after a fall at her custodial. She was found to have a left mid-shaft femur fracture. She underwent ORIF here. She has a history of dementia. Past Medical History: Diagnosis Date Anemia Atrial fibrillation ([facility]) Calcaneal spur of both feet Cataracts, bilateral CHF (congestive heart failure) ([facility]) Chronic pain Cognitive communication deficit Delusional disorder ([facility] Dementia ([facility]) Depression Fall 11/13/2023 Femur fracture, left ([facility]) 11/13/2023 Generalized weakness GERD (gastroesophageal reflux disease) History of COVID-19 Hypertension Hypothyroid Insomnia OA (osteoarthritis) Obesity PVD (peripheral vascular disease) ([facility]) Renal failure Sick sinus syndrome ([facility]) Tinea unguium Past Surgical History: Procedure Laterality Date TOTAL HIP ARTHROPLASTY Left TOTAL KNEE ARTHROPLASTY Left ALLERGIES: Patient has no known allergies. Prior to Admission medications Medication Sig Start Date End Date Taking? Authorizing Provider acetaminophen (Tylenol) 500 mg tablet Take 500 mg by mouth three times daily. Historical Provider, acetaminophen (Tylenol) 500 mg tablet Take 500 mg by mouth every 6 (six) hours if needed for mild pain (1-3 pain score). Historical Provider, ammonium lactate (Lac-Hydrin) 12 % lotion Apply topically if needed in the morning and at bedtime for dry skin (BLE). Historical Provider, apixaban (Eliquis) 5 mg tablet Take 5 mg by mouth in the morning and at bedtime. Historical ProviderMD aspirin 81 mg EC tablet Take 81 mg by mouth in the morning. Historical Provider, atorvastatin (Lipitor) 40 mg tablet Take 40 mg by mouth at bedtime. Historical ProviderMD baclofen (Lioresal) 20 mg tablet Take 20 mg by mouth at bedtime. Historical Provider, CHOLECALCIFEROL, VITAMIN D3, ORAL Take 1,250 mcg by mouth 1 (one) time per week. THURSDAYS Historical ProviderMD dyclonine (Sucrets Sore Throat) 2 mg lozenge Dissolve 1 lozenge in the mouth if needed. Historical ProviderMD folic acid (Folvite) 1 mg tablet Take 1 mg by mouth in the morning. Historical Provider, furosemide (Lasix) 20 mg tablet Take 2 tablets by mouth in the morning. Historical Provider, guaifenesin/dextrometh orphan (CORICIDIN HBP CHEST YOKASTA-COUGH ORAL) Take 1 capsule by mouth if needed in the morning and at bedtime. Historical ProviderMD hydrophilic cream (TRIAD WOUND DRESSING TOP) Apply 1 Application topically See administration instructions. Q SHIFT Historical ProviderMD levothyroxine (Synthroid, Levoxyl) 100 mcg tablet Take 100 mcg by mouth before breakfast. Historical Provider, lidocaine (Aspercreme, lidocaine,) adhesive patch,medicated patch Apply 1 patch topically in the morning. R hip Historical ProviderMD loperamide (Imodium A-D) 2 mg tablet Take 2 mg by mouth if needed in the morning and at bedtime for diarrhea. Historical Provider, melatonin (Melatin) 3 mg tablet Take 3 mg by mouth at bedtime. Historical Provider, menthol (Biofreeze, menthol,) 10 % cream Apply 1 Application topically three times daily. R knee Historical ProviderMD metoprolol succinate XL (Toprol-XL) 25 mg 24 hr tablet Take 0.5 tablets by mouth in the morning. Do not crush or chew. Historical Provider, morphine CR (MS Contin) 15 mg 12 hr tablet Take 15 mg by mouth See administration instructions. Do not crush, chew, or split. EVERY 8 HRS Historical ProviderMD nystatin (Mycostatin) 100,000 unit/gram powder Apply 1 Application topically. Historical ProviderMD ondansetron (Zofran) 4 mg tablet Take 4 mg by mouth every 6 (six) hours if needed for nausea or vomiting. Historical ProviderMD oxyCODONE (Roxicodone) 5 mg immediate release tablet Take 5 mg by mouth every 12 (twelve) hours if needed for severe pain (8-10 pain score). Historical ProviderMD polyethylene glycol (Glycolax) oral powder Take 17 g by mouth if needed each day. Historical ProviderMD POTASSIUM CITRATE ORAL Take 10 mEq by mouth in the morning, at noon, in the evening, and at bedtime. Historical ProviderMD sertraline (Zoloft) 25 mg tablet Take 25 mg by mouth at bedtime. Historical ProviderMD sertraline (Zoloft) 50 mg tablet Take 50 mg by mouth at bedtime. Historical Provider, CURRENT MEDICATIONS: Reviewed SOCIAL HISTORY Living arrangement: Nursing facility for LTC No family history on file. REVIEW OF SYSTEMS - Limited by confusion and drowsiness Constitutional: Pt denies pain. Not answering other questio (more content not included)... Normal [facility] NURSNOTEon 11-17-2023 NURSNOTE Patient states frustration with having to do assessment, and meds stating she doesn't want to be told what to do . Patient also refusing oxygen at this time. Normal [facility] 30on 11-15-2023 30 Problem: Pain - Adul t Goal: Verbalizes/displays adequate comfort level or baseline comfort level Outcome: Progressing Problem: Safety - Adult Goal: Free from fall injury Outcome: Progressing Problem: Discharge Planning Goal: Discharge to home or other facility with appropriate resources Outcome: Progressing Problem: Chronic Conditions and Co-morbidities Goal: Patient's chronic conditions and co-morbidity symptoms are monitored and maintained or improved Outcome: Progressing Problem: Safety - Medical Restraint Goal: Remains free of injury from restraints (Restraint for Interference with Planning Consultant) Outcome: Progressing Goal: Free from restraint(s) (Restraint for Interference with Planning Consultant) Outcome: Progressing Normal [facility] 30 Problem: Pain - Adul t Goal: Verbalizes/displays adequate comfort level or baseline comfort level Outcome: Progressing Problem: Safety - Adult Goal: Free from fall injury Outcome: Progressing Problem: Discharge Planning Goal: Discharge to home or other facility with appropriate resources Outcome: Progressing Problem: Chronic Conditions and Co-morbidities Goal: Patient's chronic conditions and co-morbidity symptoms are monitored and maintained or improved Outcome: Progressing Problem: Safety - Medical Restraint Goal: Remains free of injury from restraints (Restraint for Interference with Planning Consultant) Outcome: Progressing Goal: Free from restraint(s) (Restraint for Interference with Planning Consultant) Outcome: Progressing Normal [facility] ARTERIAL BLOOD GAS WITH CO-O XIMETRYon 11-15-2023 Base excess Calc (Bld) [Moles/Vol] -16.78374 mmol/L Low -2.0-3.0 [facility] Comment on above: Performed By: #### L [id number] #### [facility] ([facility]) [address] [place] [address] CARBOXYHEMOGLOBIN/HEM OGLOBIN TOTAL % IN BLOOD 1.3 % Normal 0.0-3.0 [facility] Comment on above: Performed By: #### L [id number] #### [facility] ([facility]) [address] [place] [address] CO2 (Bld) [Partial pressure] 32 mm[Hg] Low 35-48 [facility] Comment on above: Performed By: #### L [id number] #### [facility] ([facility]) [address] [place] [address] DEOXYGENATED HEMOGLOBIN IN BLOOD 4.6 % Normal 1-5 [facility] Comment on above: Performed By: #### L [id number] #### [facility] ([facility]) [address] [place] [address] HCO3 (Bld) [Moles/Vol] 11.1 mmol/L Low 21.0-28.0 [facility] Comment on above: Performed By: #### L [id number] #### [facility] ([facility]) [address] [place] [address] Hemoglobin (Bld) [Mass/Vol] 8.9 g/dL Low 11.7-17.4 [facility] Comment on above: Performed By: #### L [id number] #### [facility] ([facility]) [address] [place] [address] METHEMOGLOBIN/100 IN BLOOD 0.3 % Normal 0.0-1.5 [facility] Comment on above: Performed By: #### L [id number] #### [facility] ([facility]) [address] [place] [address] Oxygen (Bld) [Partial pressure] 75 mm[Hg] Low 83-100 [facility] Comment on above: Performed By: #### L [id number] #### [facility] ([facility]) [address] [place] [address] OXYGEN SATURATION (%) IN ARTERIAL BLOOD 95.3 % Normal 94.0-98.0 [facility] Comment on above: Performed By: #### L [id number] #### [facility] ([facility]) [address] [place] [address] OXYGENATED HEMOGLOBIN IN BLOOD 93.8 % Normal 90.0-95.0 [facility] Comment on above: Performed By: #### L [id number] #### [facility] ([facility]) [address] [place] [address] pH (Bld) 7.15 [pH] Invalid Interpretation Code 7.35-7.45 [facility] Comment on above: Performed By: #### L [id number] #### [facility] [address] [place] [address] SOURCE OF OXYGEN Room Air [facility] Comment on above: Performed By: #### L [id number] #### [facility] ([facility]) [address] [place] [address] Base excess Calc (Bld) [Moles/Vol] -18.45923 mmol/L Low -2.0-3.0 [facility] Comment on above: Performed By: #### L [id number] ####[facility] [id number] [place] [address] [place] CARBOXYHEMOGLOBIN/HEM OGLOBIN TOTAL % IN BLOOD 1.7 % Normal 0.0-3.0 [facility] Comment on above: Performed By: #### L [id number] ####[facility] [id number] [place] [address] [facility] CO2 (Bld) [Partial pressure] 27 mm[Hg] Low 35-48 [facility] Comment on above: Performed By: #### L [id number] ####[facility] [id number] [place] [address] [facility] DEOXYGENATED HEMOGLOBIN IN BLOOD 1.6 % Normal 1-5 [facility] Comment on above: Performed By: #### L [id number] ####[facility] [id number] [place] [address] [facility] HCO3 (Bld) [Moles/Vol] 9.0 mmol/L Low 21.0-28.0 [facility] Comment on above: Performed By: #### L [id number] ####[facility] [id number] [place] [address] [facility] Hemoglobin (Bld) [Mass/Vol] 9.6 g/dL Low 11.7-17.4 [facility] Comment on above: Performed By: #### L [id number] ####[facility] [id number] [place] [address] [facility] METHEMOGLOBIN/100 IN BLOOD 0.8 % Normal 0.0-1.5 [facility] Comment on above: Performed By: #### L [id number] ####[facility] [id number] [place] [address] [place] Oxygen (Bld) [Partial pressure] 98 mm[Hg] Normal 83-100 [facility] Comment on above: Performed By: #### L [id number] ####[facility] [id number] [place] [address] [place] OXYGEN SATURATION (%) IN ARTERIAL BLOOD 98.4 % High 94.0-98.0 [facility] Comment on above: Performed By: #### L [id number] ####[facility] [id number] [place] [address] [place] OXYGENATED HEMOGLOBIN IN BLOOD 95.9 % High 90.0-95.0 [facility] Comment on above: Performed By: #### L [id number] ####[facility] [id number] [place] [address] [place] pH (Bld) 7.13 [pH] Invalid Interpretation Code 7.35-7.45 [facility] Comment on above: Performed By: #### L [id number] ####[facility] [id number] [place] [address] [place] SOURCE OF OXYGEN Room Air Normal [facility] Comment on above: Performed By: #### L [id number] ####[facility] [id number] [place] [address] [place] Base excess Calc (Bld) [Moles/Vol] -19.12627 mmol/L Low -2.0-3.0 [facility] Comment on above: Performed By: #### L [id number] #### [facility] ([facility]ER) [address] [place] [address] CARBOXYHEMOGLOBIN/HEM OGLOBIN TOTAL % IN BLOOD 1.9 % Normal 0.0-3.0 [facility] Comment on above: Performed By: #### L [id number] #### [facility] ([facility]ER) [address] [place] [address] CO2 (Bld) [Partial pressure] 30 mm[Hg] Low 35-48 [facility] Comment on above: Performed By: #### L [id number] #### [facility] ([facility]ER) [address] [place] [address] DEOXYGENATED HEMOGLOBIN IN BLOOD 2.6 % Normal 1-5 [facility] Comment on above: Performed By: #### L [id number] #### [facility] ([facility]ER) [address] [place] [address] HCO3 (Bld) [Moles/Vol] 8.9 mmol/L Low 21.0-28.0 [facility] Comment on above: Performed By: #### L [id number] #### [facility] ([facility]) [address] [place] [address] Hemoglobin (Bld) [Mass/Vol] 9.8 g/dL Low 11.7-17.4 [facility] Comment on above: Performed By: #### L [id number] #### [facility] ([facility]) [address] [place] [address] METHEMOGLOBIN/100 IN BLOOD 0.7 % Normal 0.0-1.5 [facility] Comment on above: Performed By: #### L [id number] #### [facility] ([facility]) [address] [place] [address] Oxygen (Bld) [Partial pressure] 86 mm[Hg] Normal 83-100 [facility] Comment on above: Performed By: #### L [id number] #### [facility] [facility]) [address] [place] [address] OXYGEN SATURATION (%) IN ARTERIAL BLOOD 97.3 % Normal 94.0-98.0 [facility] Comment on above: Performed By: #### L [id number] #### [facility] ([facility]) [address] [place] [address] OXYGENATED HEMOGLOBIN IN BLOOD 94.8 % Normal 90.0-95.0 [facility] Comment on above: Performed By: #### L [id number] #### [facility] [address] [place] [address] pH (Bld) 7.08 [pH] Invalid Interpretation Code 7.35-7.45 [facility] Comment on above: Performed By: #### L [id number] #### [facility] ([facility]) [address] [place] [address] SOURCE OF OXYGEN Room Air Normal [facility] Comment on above: Performed By: #### L [id number] #### [facility] ([facility]) [address] [place] [address] Base excess Calc (Bld) [Moles/Vol] -19.97833 mmol/L Low -2.0-3.0 [facility] Comment on above: Performed By: #### L [id number] #### [facility] ([facility]) [address] [place] [address] CARBOXYHEMOGLOBIN/HEM OGLOBIN TOTAL % IN BLOOD 1.7 % Normal 0.0-3.0 [facility] Comment on above: Performed By: #### L [id number] #### [facility] ([facility]) [address] [place] [address] CO2 (Bld) [Partial pressure] 27 mm[Hg] Low 35-48 [facility] Comment on above: Performed By: #### L [id number] #### [facility] (BE[facility]) [address] [place] [address] DEOXYGENATED HEMOGLOBIN IN BLOOD 0.1 % Low 1-5 [facility] Comment on above: Performed By: #### L [id number] #### [facility] (BEAK[facility]) [address] [place] [address] HCO3 (Bld) [Moles/Vol] 8.6 mmol/L Low 21.0-28.0 [facility] Comment on above: Performed By: #### L [id number] #### [facility] (BEAK[facility]) [address] [place] [address] Hemoglobin (Bld) [Mass/Vol] 8.0 g/dL Low 11.7-17.4 [facility] Comment on above: Performed By: #### L [id number] #### [facility] (BE[facility]) [address] [place] [address] METHEMOGLOBIN/100 IN BLOOD 0.2 % Normal 0.0-1.5 [facility] Comment on above: Performed By: #### L [id number] #### [facility] (BEAKER) [address] [place] [address] Oxygen (Bld) [Partial pressure] 266 mm[Hg] High 83-100 [facility] Comment on above: Performed By: #### L [id number] #### [facility] [address] [place] [address] OXYGEN SATURATION (%) IN ARTERIAL BLOOD 99.9 % High 94.0-98.0 [facility] Comment on above: Performed By: #### L [id number] #### [facility] ([facility]) [address] [place] [address] OXYGENATED HEMOGLOBIN IN BLOOD 98.0 % High 90.0-95.0 [facility] Comment on above: Performed By: #### L [id number] #### [facility] ([facility]) [address] [facility] [place] [address] pH (Bld) 7.11 [pH] Invalid Interpretation Code 7.35-7.45 [facility] Comment on above: Performed By: #### L [id number] #### [facility] ([facility]) [address] [place] [address] SOURCE OF OXYGEN Non-rebreather mask Normal [facility] Comment on above: Performed By: #### L [id number] #### [facility] ([facility]) [address] [facility] [place] [address] ARTERIAL BLOOD GAS WITH IONI ZED CALCIUMon 11-15-2023 Base excess Calc (Bld) [Moles/Vol] -5.2000 mmol/L Low -2.0-3.0 [facility] Comment on above: Performed By: #### L [id number] #### [facility] (BE[facility]) [address] [facility] [place] [address] CALCIUM IONIZED (MMOL/L) IN BLOOD 1.07 mmol/L Low 1.15-1.33 [facility] Comment on above: Performed By: #### L [id number] #### [facility] (BEAKER) [address] [place] [address] CO2 (Bld) [Partial pressure] 32 mm[Hg] Low 35-48 [facility] Comment on above: Performed By: #### L [id number] #### [facility] ([facility]) [address] [place] [address] HCO3 (Bld) [Moles/Vol] 18.9 mmol/L Low 21.0-28.0 [facility] Comment on above: Performed By: #### L [id number] #### [facility] (BEAKER) [address] [place] [address] Oxygen (Bld) [Partial pressure] 78 mm[Hg] Low 83-100 [facility] Comment on above: Performed By: #### L [id number] #### [facility] ([facility]) [address] [place] [address] OXYGEN SATURATION (%) IN ARTERIAL BLOOD 98.2 % High 94.0-98.0 [facility] Comment on above: Performed By: #### L [id number] #### [facility] ([facility]) [address] [place] [address] pH (Bld) 7.38 [pH] Normal 7.35-7.45 [facility] Comment on above: Performed By: #### L [id number] #### [facility] ([facility]) [address] [place] [address] SOURCE OF OXYGEN Room Air Normal [facility] Comment on above: Performed By: #### L [id number] #### [facility] ([facility]) [address] [place] [address] B-TYPE NATRIURETIC PEPTIDEon 11-15-2023 Natriuretic peptide B (Bld) [Mass/Vol] 165 pg/mL High 0-100 [facility] Comment on above: Performed By: #### L [id number] ####[facility] ([facility]ER)[address] [place] [address] Natriuretic peptide B (Bld) [Mass/Vol] 175 pg/mL High 0-100 [facility] Comment on above: Performed By: #### L [id number] #### [facility] ([facility]ER) [address] [place] [address] BASIC METABOLIC PANELon 07-0 Anion gap [Moles/Vol] 25 mmol/L High 7-20 [facility] Comment on above: Performed By: #### L [id number] #### [facility] ([facility]) [address] [place] [address] Calcium [Mass/Vol] 7.4 mg/dL Low 8.6-10.3 [facility] Comment on above: Performed By: #### L [id number] #### [facility] ([facility]) [address] [place] [address] Chloride [Moles/Vol] 108 mmol/L High 98-107 [facility] Comment on above: Performed By: #### L [id number] #### [facility] ([facility]) [address] [place] [address] CO2 [Moles/Vol] 22 mmol/L Normal 21-31 [facility] Comment on above: Performed By: #### L [id number] #### [facility] ([facility]) [address] [place] [address] Creatinine [Mass/Vol] 1.33 mg/dL High 0.60-1.20 [facility] Comment on above: Performed By: #### L [id number] #### [facility] ([facility]) [address] [place] [address] GLOMERULAR FILTRATION RATE ML/MIN/1.73 SQ M.PREDICTED 40.7 mL/min/1.73m*2 Low >60.0 [facility] Comment on above: Result Comment: The [facility]???s estimated glomerular filtration rate (eGFR) will no longer include consideration of race in its calculation. The National Kidney Foundation???s eGFR Task Force developed new recommendations for the estimation of the glomerular filtration rate in the [place] They recommend immediate implementation of the new equation refit without the race variable in all laboratories because the calculation does not include race. In addition to not including race in the calculation and reporting, it included diversity in its development, and has acceptable performance characteristics and potential consequences that do not disproportionately affect any one group of individuals. Performed By: #### L [id number] #### [facility] ([facility]) [address] [place] [address] Glucose [Mass/Vol] 140 mg/dL High 70-100 [facility] Comment on above: Performed By: #### L [id number] #### [facility] ([facility]) [address] [place] [address] Potassium [Moles/Vol] 3.4 mmol/L Low 3.5-5.1 [facility] Comment on above: Performed By: #### L [id number] #### [facility] ([facility]) [address] [place] [address] Sodium [Moles/Vol] 152 mmol/L High 136-145 [facility] Comment on above: Performed By: #### L [id number] #### [facility] ([facility]) [address] [place] [address] Urea nitrogen [Mass/Vol] 30 mg/dL High 7-25 [facility] Comment on above: Performed By: #### L [id number] #### [facility] ([facility]) [address] [place] [address] UREA NITROGEN/CREATININE (MASS RATIO) IN SER/PLAS 22.6 Normal [facility] Comment on above: Performed By: #### L [id number] #### [facility] ([facility]) [address] [place] [address] Anion gap [Moles/Vol] 28 mmol/L High 7-20 [facility] Comment on above: Performed By: #### L [id number] #### [facility] ([facility]) [address] [place] [address] Calcium [Mass/Vol] 6.7 mg/dL Low 8.6-10.3 [facility] Comment on above: Performed By: #### L [id number] #### [facility] ([facility]) [address] [place] [address] Chloride [Moles/Vol] 112 mmol/L High 98-107 [facility] Comment on above: Performed By: #### L [id number] #### [facility] ([facility]) [address] [place] [address] CO2 [Moles/Vol] 10 mmol/L Invalid Interpretation Code [facility] Comment on above: Performed By: #### L [id number] #### [facility] ([facility]) [address] [place] [address] Creatinine [Mass/Vol] 1.18 mg/dL Normal 0.60-1.20 [facility] Comment on above: Performed By: #### L [id number] #### [facility] ([facility]) [address] [place] [address] GLOMERULAR FILTRATION RATE ML/MIN/1.73 SQ M.PREDICTED 47.0 mL/min/1.73m*2 Low >60.0 [facility] Comment on above: Result Comment: The [facility]???s estimated glomerular filtration rate (eGFR) will no longer include consideration of race in its calculation. The National Kidney Foundation???s eGFR Task Force developed new recommendations for the estimation of the glomerular filtration rate in the [place] They recommend immediate implementation of the new equation refit without the race variable in all laboratories because the calculation does not include race. In addition to not including race in the calculation and reporting, it included diversity in its development, and has acceptable performance characteristics and potential consequences that do not disproportionately affect any one group of individuals. Performed By: #### L [id number] #### [facility] ([facility]) [address] [place] [address] Glucose [Mass/Vol] 239 mg/dL High 70-100 [facility] Comment on above: Performed By: #### L [id number] #### [facility] ([facility]) [address] [place] [address] Potassium [Moles/Vol] 3.7 mmol/L Normal 3.5-5.1 [facility] Comment on above: Performed By: #### L [id number] #### [facility] ([facility]) [address] [place] [address] Sodium [Moles/Vol] 146 mmol/L High 136-145 [facility] Comment on above: Performed By: #### L [id number] #### [facility] ([facility]) [address] [place] [address] Urea nitrogen [Mass/Vol] 26 mg/dL High 7-25 [facility] Comment on above: Performed By: #### L [id number] #### [facility] ([facility]) [address] [place] [address] UREA NITROGEN/CREATININE (MASS RATIO) IN SER/PLAS 22.0 [facility] Comment on above: Performed By: #### L [id number] #### [facility] ([facility]) [address] [place] [address] Anion gap [Moles/Vol] 16 mmol/L Normal 7-20 [facility] Comment on above: Performed By: #### L [id number] #### [facility] [address] [place] [address] Calcium [Mass/Vol] 7.2 mg/dL Low 8.6-10.3 [facility] Comment on above: Performed By: #### L [id number] #### [facility] ([facility]) [address] [place] [address] Chloride [Moles/Vol] 113 mmol/L High 98-107 [facility] Comment on above: Performed By: #### L [id number] #### [facility] ([facility]) [address] [place] [address] CO2 [Moles/Vol] 18 mmol/L Low 21-31 [facility] Comment on above: Performed By: #### L [id number] #### [facility] ([facility]) [address] [place] [address] Creatinine [Mass/Vol] 1.00 mg/dL Normal 0.60-1.20 [facility] Comment on above: Performed By: #### L [id number] #### [facility] ([facility]) [address] [place] [address] GLOMERULAR FILTRATION RATE ML/MIN/1.73 SQ M.PREDICTED 57.3 mL/min/1.73m*2 Low >60.0 [facility] Comment on above: Result Comment: The [facility]???s estimated glomerular filtration rate (eGFR) will no longer include consideration of race in its calculation. The National Kidney Foundation???s eGFR Task Force developed new recommendations for the estimation of the glomerular filtration rate in the [place] They recommend immediate implementation of the new equation refit without the race variable in all laboratories because the calculation does not include race. In addition to not including race in the calculation and reporting, it included diversity in its development, and has acceptable performance characteristics and potential consequences that do not disproportionately affect any one group of individuals. Performed By: #### L [id number] #### [facility] ([facility]) [address] [place] [address] Glucose [Mass/Vol] 205 mg/dL High 70-100 [facility] Comment on above: Performed By: #### L [id number] #### [facility] ([facility]) [address] [place] [address] Potassium [Moles/Vol] 3.9 mmol/L Normal 3.5-5.1 [facility] Comment on above: Performed By: #### L [id number] #### [facility] ([facility]) [address] [place] [address] Sodium [Moles/Vol] 143 mmol/L Normal 136-145 [facility] Comment on above: Performed By: #### L [id number] #### [facility] ([facility]) [address] [place] [address] Urea nitrogen [Mass/Vol] 27 mg/dL High 7-25 [facility] Comment on above: Performed By: #### L [id number] #### [facility] ([facility]) [address] [place] [address] UREA NITROGEN/CREATININE (MASS RATIO) IN SER/PLAS 27.0 Normal [facility] Comment on above: Performed By: #### L [id number] #### [facility] [address] [facility] [place] [address] BETA HYDROXYBUTYRATEon 11-14 BETA HYDROXYBUTYRATE (MMOL/L) IN SER/PLAS 0.31 mmol/L High 0.02-0.27 [facility] Comment on above: Performed By: #### L [id number] #### [facility] ([facility]) [address] [place] [address] BLOOD CULTUREon 11-15-2023 Bacteria identified Cx Nom (Bld) No growth at 5 days Normal [facility] Comment on above: Order Comment: From a different site than #1. Performed By: #### L [id number] #### [facility] ([facility]) [address] [place] [address] Bacteria identified Cx Nom (Bld) No growth at 5 days Normal [facility] Comment on above: Performed By: #### L [id number] #### [facility] ([facility]) [address] [place] [address] CALCIUM, IONIZEDon CALCIUM IONIZED (MMOL/L) IN BLOOD 1.09 mmol/L Low 1.15-1.33 [facility] Comment on above: Performed By: #### L [id number] #### [facility] [address] [place] [address] CALCIUM IONIZED (MMOL/L) IN BLOOD 1.05 mmol/L Low 1.15-1.33 [facility] Comment on above: Performed By: #### L [id number] #### [facility] [address] [place] [address] CALCIUM IONIZED (MMOL/L) IN BLOOD 1.06 mmol/L Low 1.15-1.33 [facility] Comment on above: Performed By: #### L [id number] #### [facility] ([facility]AKER) [address] [place] [address] CALCIUM IONIZED (MMOL/L) IN BLOOD 1.12 mmol/L Low 1.15-1.33 [facility] Comment on above: Performed By: #### L [id number] #### [facility] ([facility]) [address] [place] [address] CBCon 11-15-2023 Erythrocyte distribution width (RBC) [Ratio] 21.2 % High 11.5-15.0 [facility] Comment on above: Performed By: #### L [id number] ####[facility] ([facility])[address] [place] [address] ERYTHROCYTE MEAN CORPUSCULAR HEMOGLOBIN CONCENTRATION (G/DL) BY AUTOMATED 33.3 g/dL Normal 32.0-35.0 [facility] Comment on above: Performed By: #### L [id number] ####[facility] ([facility])[address] [place] [address] Hematocrit (Bld) [Volume fraction] 21.9 % Low 36.0-48.0 [facility] Comment on above: Performed By: #### L [id number] ####[facility] ([facility])[address] [place] [address] Hemoglobin (Bld) [Mass/Vol] 7.3 g/dL Low 12.0-15.0 [facility] Comment on above: Performed By: #### L [id number] ####[facility] ([facility])[address] [place] [address] IMMATURE PLATELET FRACTION % 9.7 % High 0.8-6.3 [facility] Comment on above: Performed By: #### L [id number] ####[facility] ([facility])[address] [place] [address] MCH (RBC) [Entitic mass] 28.5 pg Normal 27.0-33.0 [facility] Comment on above: Performed By: #### L [id number] ####[facility] ([facility])[address] [place] [address] MCV (RBC) [Entitic vol] 85.5 fL Normal 82.0-98.0 [facility] Comment on above: Performed By: #### L [id number] ####[facility] [place] [address] PLATELETS (10*3/UL) IN BLOOD AUTOMATED COUNT 115 10*3/uL Low 150-400 [facility] Comment on above: Performed By: #### L [id number] ####[facility] ([facility])[address] [place] [address] RBC (Bld) [#/Vol] 2.56 10*6/uL Low 3.80-5.00 [facility] Comment on above: Performed By: #### L [id number] ####[facility] ([facility])[address] [place] [address] WBC (Bld) [#/Vol] 34.01 10*3/uL High 4.00-10.60 [facility] Comment on above: Performed By: #### L [id number] ####[facility] ([facility])[address] [place] [address] Erythrocyte distribution width (RBC) [Ratio] 21.1 % High 11.5-15.0 [facility] Comment on above: Performed By: #### L [id number] #### [facility] ([facility]) [address] [place] [address] ERYTHROCYTE MEAN CORPUSCULAR HEMOGLOBIN CONCENTRATION (G/DL) BY AUTOMATED 32.2 g/dL Normal 32.0-35.0 [facility] Comment on above: Performed By: #### L [id number] #### [facility] [address] [place] [address] Hematocrit (Bld) [Volume fraction] 25.8 % Low 36.0-48.0 [facility] Comment on above: Result Comment: Pt i s in surgery on 11/15/23 Performed By: #### L [id number] #### [facility] [address] [place] [address] Hemoglobin (Bld) [Mass/Vol] 8.3 g/dL Low 12.0-15.0 [facility] Comment on above: Performed By: #### L [id number] #### [facility] [address] [place] [address] MCH (RBC) [Entitic mass] 27.9 pg Normal 27.0-33.0 [facility] Comment on above: Performed By: #### L [id number] #### [facility] ([facility]) [address] [place] [address] MCV (RBC) [Entitic vol] 86.6 fL Normal 82.0-98.0 [facility] Comment on above: Performed By: #### L [id number] #### [facility] ([facility]) [address] [place] [address] PLATELETS (10*3/UL) IN BLOOD AUTOMATED COUNT 238 10*3/uL Normal 150-400 [facility] Comment on above: Performed By: #### L [id number] #### [facility] ([facility]) [address] [place] [address] RBC (Bld) [#/Vol] 2.98 10*6/uL Low 3.80-5.00 [facility] Comment on above: Performed By: #### L [id number] #### [facility] ([facility]) [address] [place] [address] WBC (Bld) [#/Vol] 16.89 10*3/uL High 4.00-10.60 [facility] Comment on above: Performed By: #### L [id number] #### [facility] [address] [place] [address] CBC WITH AUTO DIFFERENTIALon 11-15-2023 Erythrocyte distribution width (RBC) [Ratio] 20.5 % High 11.5-15.0 [facility] Comment on above: Performed By: #### L [id number] #### [facility] [address] [place] [address] ERYTHROCYTE MEAN CORPUSCULAR HEMOGLOBIN CONCENTRATION (G/DL) BY AUTOMATED 30.3 g/dL Low 32.0-35.0 [facility] Comment on above: Performed By: #### L [id number] #### [facility] [address] [place] [address] Hematocrit (Bld) [Volume fraction] 32.0 % Low 36.0-48.0 [facility] Comment on above: Performed By: #### L [id number] #### [facility] ([facility]) [address] [place] [address] Hemoglobin (Bld) [Mass/Vol] 9.7 g/dL Low 12.0-15.0 [facility] Comment on above: Performed By: #### L [id number] #### [facility] ([facility]) [address] [place] [address] MCH (RBC) [Entitic mass] 27.6 pg Normal 27.0-33.0 [facility] Comment on above: Performed By: #### L [id number] #### [facility] ([facility]) [address] [place] [address] MCV (RBC) [Entitic vol] 90.9 fL Normal 82.0-98.0 [facility] Comment on above: Performed By: #### L [id number] #### [facility] [address] [place] [address] NRBC (PER 100 WBCS) BY AUTOMATED COUNT 0.5 % High 0 [facility] Comment on above: Performed By: #### L [id number] #### [facility] [address] [place] [address] PLATELETS (10*3/UL) IN BLOOD AUTOMATED COUNT 207 10*3/uL Normal 150-400 [facility] Comment on above: Performed By: #### L [id number] #### [facility] ([facility]) [address] [place] [address] RBC (Bld) [#/Vol] 3.52 10*6/uL Low 3.80-5.00 [facility] Comment on above: Performed By: #### L [id number] #### [facility] ([facility]) [address] [place] [address] WBC (Bld) [#/Vol] 34.34 10*3/uL High 4.00-10.60 [facility] Comment on above: Performed By: #### L [id number] #### [facility] ([facility]) [address] [place] [address] CLOSTRIDIOIDES DIFFICILE DNA AMPLIFICATIONon 11-15-2023 CLOSTRIDIOIDES DIFFICILE (TOXIN A/B) Negative Normal Negative [facility] Comment on above: Order Comment: Testi ng methodology is an in vitro diagnostic test for the direct, qualitative detection of the Clostridioides difficile Toxin A gene (tcdA) in unformed stool specimens of patients suspected of having Clostridioides difficile-infection (CDI). The [employer] C. difficile Assay is intended for use as an aid in diagnosis of CDI. The assay utilizes helicase-dependent amplification (HDA) for the amplification of a highly conserved fragment of the Toxin A gene sequence. Performed By: #### L [id number] #### [facility] ([facility]) [address] [place] [address] CONSULTon 11-15-2023 CONSULT Surgical Intensive Care Unit Consult Note Reason For Consult: Postop hypotension Referring Physician: Ortho team Date and time of consultation: 11/15/2023 0100 Chief Complaint: Critical Care Management HPI: 78 y.o. year old female who presented as a direct admission from [facility] on 11/14/2023. Patient sustained a fall which resulted in a left femur fracture. Patient has a history of dementia and is unable to provide any history. Patient underwent ORIF of her left femur on 11/14/2023 evening. Patient had substantial EBL approximately 1.6 L. Patient received 3 units RBCs intraoperatively. Patient was extubated postoperatively but was unable to be weaned from phenylephrine, therefore SICU was consulted for management. Review of Systems: unable to obtain due to patient's medical condition History: The following information was obtained through chart review as the patient was unable to provide information due to emergency nature and/or medical condition Past Medical History: has a past medical history of Anemia, Atrial fibrillation ([facility] [place]), Calcaneal spur of both feet, Cataracts, bilateral, CHF (congestive heart failure) ([facility] Chronic pain, Cognitive communication deficit, Delusional disorder ([facility]), Dementia ([facility]), Depression, Fall (11/13/2023), Femur fracture, left ([facility]) (11/13/2023), Generalized weakness, GERD (gastroesophageal reflux disease), History of COVID-19, Hypertension, Hypothyroid, Insomnia, OA (osteoarthritis), Obesity, PVD (peripheral vascular disease) ([facility]), Renal failure, Sick sinus syndrome ([facility]), and Tinea unguium. Past Surgical History: has a past surgical history that includes Total knee arthroplasty (Left) and Total hip arthroplasty (Left). Allergies: Patient has no known allergies. Home Medications: Medications Prior to Admission Medication Sig Dispense Refill Last Dose acetaminophen (Tylenol) 500 mg tablet Take 500 mg by mouth three times daily. acetaminophen (Tylenol) 500 mg tablet Take 500 mg by mouth every 6 (six) hours if needed for mild pain (1-3 pain score). ammonium lactate (Lac-Hydrin) 12 % lotion Apply topically if needed in the morning and at bedtime for dry skin (BLE). apixaban (Eliquis) 5 mg tablet Take 5 mg by mouth in the morning and at bedtime. aspirin 81 mg EC tablet Take 81 mg by mouth in the morning. atorvastatin (Lipitor) 40 mg tablet Take 40 mg by mouth at bedtime. baclofen (Lioresal) 20 mg tablet Take 20 mg by mouth at bedtime. CHOLECALCIFEROL, VITAMIN D3, ORAL Take 1,250 mcg by mouth 1 (one) time per week. THURSDAYS dyclonine (Sucrets Sore Throat) 2 mg lozenge Dissolve 1 lozenge in the mouth if needed. folic acid (Folvite) 1 mg tablet Take 1 mg by mouth in the morning. furosemide (Lasix) 20 mg tablet Take 2 tablets by mouth in the morning. guaifenesin/dextrometh orphan (CORICIDIN HBP CHEST YOKASTA-COUGH ORAL) Take 1 capsule by mouth if needed in the morning and at bedtime. hydrophilic cream (TRIAD WOUND DRESSING TOP) Apply 1 Application topically See administration instructions. Q SHIFT levothyroxine (Synthroid, Levoxyl) 100 mcg tablet Take 100 mcg by mouth before breakfast. lidocaine (Aspercreme, lidocaine,) adhesive patch,medicated patch Apply 1 patch topically in the morning. R hip loperamide (Imodium A-D) 2 mg tablet Take 2 mg by mouth if needed in the morning and at bedtime for diarrhea. melatonin (Melatin) 3 mg tablet Take 3 mg by mouth at bedtime. menthol (Biofreeze, menthol,) 10 % cream Apply 1 Application topically three times daily. R knee metoprolol succinate XL (Toprol-XL) 25 mg 24 hr tablet Take 0.5 tablets by mouth in the morning. Do not crush or chew. morphine CR (MS Contin) 15 mg 12 hr tablet Take 15 mg by mouth See administration instructions. Do not crush, chew, or split. EVERY 8 HRS nystatin (Mycostatin) 100,000 unit/gram powder Apply 1 Application topically. ondansetron (Zofran) 4 mg tablet Take 4 mg by mouth every 6 (six) hours if needed for nausea or vomiting. oxyCODONE (Roxicodone) 5 mg immediate release tablet Take 5 mg by mouth every 12 (twelve) hours if needed for severe pain (8-10 pain score). polyethylene glycol (Glycolax) oral powder Take 17 g by mouth if needed each day. POTASSIUM CITRATE ORAL Take 10 mEq by mouth in the morning, at noon, in the evening, and at bedtime. sertraline (Zoloft) 25 mg tablet Take 25 mg by mouth at bedtime. sertraline (Zoloft) 50 mg tablet Take 50 mg by mouth at bedtime. Social History: has no history on file for tobacco use, alcohol use, and drug use. Family History: pulled available information in [facility] from previous visits No family history on file. Objective Vitals: BP: (100-115)/(62-65) 113/62 (11/13 1724) Temp: [36 ???C (96.8 ???F)-36.7 ???C (98.1 ???F)] 36 ???C (96.8 ???F) (11/13 2254) Temp Source: Temporal (11/13 2254) Heart Rate: [98-123] 115 (11/14 015) Resp: [16-20] 16 (11/14 114) SpO2: [93 %-100 %] 9 (more content not included)... Normal [facility] HEPATIC FUNCTION PANELon Albumin [Mass/Vol] 2.1 g/dL Low 3.5-5.7 [facility] Comment on above: Performed By: #### L [id number] #### [facility] ([facility]) [address] [place] [address] ALP [Catalytic activity/Vol] 65 U/L Normal 34-104 [facility] Comment on above: Performed By: #### L [id number] #### [facility] ([facility]) [address] [place] [address] ALT [Catalytic activity/Vol] 647 U/L High 7-52 [facility] Comment on above: Performed By: #### L [id number] #### [facility] ([facility]) [address] [place] [address] AST [Catalytic activity/Vol] 1580 U/L High 13-39 [facility] Comment on above: Performed By: #### L [id number] #### [facility] ([facility]) [address] [place] [address] Bilirubin [Mass/Vol] 1.0 mg/dL Normal 0.3-1.0 [facility] Comment on above: Performed By: #### L [id number] #### [facility] [address] [place] [address] Magnesium [Mass/Vol] 0.5 mg/dL High 0-0.2 [facility] Comment on above: Performed By: #### L [id number] #### [facility] [address] [place] [address] Protein [Mass/Vol] 3.2 g/dL Low 6.0-8.3 [facility] Comment on above: Performed By: #### L [id number] #### [facility] [address] [place] [address] LACTIC ACID WITH 4 HOUR REFL EXon 11-15-2023 LACTATE (MMOL/L) IN SER/PLAS 13.2 mmol/L Critically high 0.5-2.2 [facility] Comment on above: Result Comment: M-HI EVIOUS CRITICAL RESULT Previous result verified on 11/15/2023 1231 on specimen/case [id number] called with component Lactate for procedure Lactic acid, plasma with value 16.9 mmol/L. Performed By: #### L [id number] #### [facility] ([facility]) [address] [place] [address] LACTIC ACID, PLASMAon 2023 LACTATE (MMOL/L) IN SER/PLAS 16.9 mmol/L Critically high 0.5-2.2 [facility] Comment on above: Result Comment: Prev ious result verified on 11/15/2023 1055 on specimen/case [id number] called with component Lactate for procedure Lactic acid, plasma with value 17.0 mmol/L. Performed By: #### L [id number] #### [facility] ([facility]) [address] [place] [address] LACTATE (MMOL/L) IN SER/PLAS 17.0 mmol/L Critically high 0.5-2.2 [facility] Comment on above: Performed By: #### L [id number] #### [facility] ([facility]) [address] [place] [address] MAGNESIUMon 11-15-2023 Magnesium [Mass/Vol] 2.5 mg/dL Normal 1.9-2.7 [facility] Comment on above: Performed By: #### L [id number] #### [facility] [address] [place] [address] Magnesium [Mass/Vol] 1.6 mg/dL Low 1.9-2.7 [facility] Comment on above: Performed By: #### L [id number] #### [facility] ([facility]) [address] [place] [address] MANUAL DIFFERENTIALon 2023 ANISOCYTOSIS PRESENCE IN BLOOD BY LIGHT MICROSCOPY Moderate Normal [facility] Comment on above: Performed By: #### L [id number] #### [facility] ([facility]) [address] [place] [address] BASOPHILS (10*3/UL) IN BLOOD BY CALCULATION 0.00 10*3/uL Normal 0.00-0.20 [facility] Comment on above: Performed By: #### L [id number] #### [facility] ([facility]) [address] [place] [address] BASOPHILS/100 LEUKOCYTES IN BLOOD BY AUTOMATED COUNT 0.0 % Normal 0.0-1.0 [facility] Comment on above: Performed By: #### L [id number] #### [facility] ([facility]) [address] [facility] [place] [address] EOSINOPHILS (10*3/UL) IN BLOOD BY CALCULATION 0.00 10*3/uL Normal 0.00-0.50 [facility] Comment on above: Performed By: #### L [id number] #### [facility] ([facility]) [address] [place] [address] EOSINOPHILS/100 LEUKOCYTES IN BLOOD BY AUTOMATED COUNT 0.0 % Normal 0.0-6.0 [facility] Comment on above: Performed By: #### L [id number] #### [facility] ([facility]) [address] [place] [address] LYMPHOCYTES (10*3/UL) IN BLOOD BY CALCULATION 2.51 10*3/uL Normal 1.20-4.00 [facility] Comment on above: Performed By: #### L [id number] #### [facility] ([facility]) [address] [place] [address] LYMPHOCYTES/100 LEUKOCYTES IN BLOOD BY AUTOMATED COUNT 7.3 % Low 20.0-45.0 [facility] Comment on above: Performed By: #### L [id number] #### [facility] ([facility]) [address] [place] [address] MONOCYTES (10*3/UL) IN BLOOD BY CALCUATION 0.93 10*3/uL Normal 0.10-1.00 [facility] Comment on above: Performed By: #### L [id number] #### [facility] ([facility]) [address] [place] [address] MONOCYTES/100 LEUKOCYTES IN BLOOD BY AUTOMATED COUNT 2.7 % Low 5.0-12.0 [facility] Comment on above: Performed By: #### L [id number] #### [facility] ([facility]) [address] [place] [address] MYELOCYTES (10*3/UL) IN BLOOD BY CALCULATION 0.93 10*3/uL High 0.00 [facility] Comment on above: Performed By: #### L [id number] #### [facility] ([facility]) [address] [place] [address] MYELOCYTES/100 LEUKOCYTES IN BLOOD CELLAVISION 2.7 % High 0.0-0.0 [facility] Comment on above: Performed By: #### L [id number] #### [facility] ([facility]) [address] [place] [address] NEUTROPHILS (10*3/UL) IN BLOOD BY CALCULATION 30.0 10*3/uL High 1.6-7.6 [facility] Comment on above: Performed By: #### L [id number] #### [facility] ([facility]) [address] [place] [address] NEUTROPHILS/100 LEUKOCYTES IN BLOOD BY AUTOMATED COUNT 87.3 % High 40.0-72.0 [facility] Comment on above: Performed By: #### L [id number] #### [facility] ([facility]) [address] [place] [address] PLASMA CELLS/100 LEUKOCYTES IN BLOOD 0 % Normal 0 [facility] Comment on above: Performed By: #### L [id number] #### [facility] ([facility]) [address] [place] [address] PLATELETS GIANT PRESENCE IN BLOOD BY LIGHT MICROSCOPY Present Normal [facility] Comment on above: Performed By: #### L [id number] #### [facility] [address] [place] [address] POIKILOCYTOSIS (PRESENCE) IN BLOOD BY LIGHT MICROSCOPY Slight Normal [facility] Comment on above: Performed By: #### L [id number] #### [facility] ([facility]) [address] [place] [address] POLYCHROMASIA IN BLOOD BY LIGHT MICROSCOPY Slight Normal [facility] Comment on above: Performed By: #### L [id number] #### [facility] ([facility]) [address] [place] [address] SMUDGE CELLS/100 LEUKOCYTES IN BLOOD CELLAVISION Present Normal [facility] Comment on above: Performed By: #### L [id number] #### [facility] ([facility]) [address] [place] [address] VARIANT LYMPHOCYTES (10*3/UL) IN BLOOD BY CALCULATION 0.00 10*3/uL Normal 0.00 [facility] Comment on above: Performed By: #### L [id number] #### [facility] ([facility]) [address] [place] [address] VARIANT LYMPHOCYTES/100 LEUKOCYTES IN BLOOD CELLAVISION 0.0 % Normal 0.0-0.0 [facility] Comment on above: Performed By: #### L [id number] #### [facility] ([facility]) [address] [place] [address] Karla 11-15-2023 KATT PICC Rn spoke with Rajni from infection prevention and agreed the best option for this patient is to draw blood cultures to rule out sepsis before PICC line is placed. PICC line can still be placed with cultures pending due to patient need for line. Dr. Wetzel aware of plan and will order blood cultures. In meantime PICC RN will attempted to get a hold of patient guardian to get consent for the PICC line. SICU lead RN aware of plan. Normal [facility] PATRICEE PICC RN aware of PIC C line order and concerned about WBC of 34.34 and need for PICC line for pressors. PICC Rn spoke with SICU MD Dr. Clemes and requested blood cultures. At this time they would prefer PICC line without cultures. PICC RN will investigate further before placing PICC Line. Also aware that pt does have a legal guardian and will try to contact in order to place line. PT RN aware of plan. Normal [facility] PHOSPHORUSon 11-15-2023 Magnesium [Mass/Vol] 8.6 mg/dL High 2.5-5.0 [facility] Comment on above: Performed By: #### L [id number] #### [facility] ([facility]) [address] [place] [address] Magnesium [Mass/Vol] 6.0 mg/dL High 2.5-5.0 [facility] Comment on above: Performed By: #### L [id number] #### [facility] ([facility]) [address] [place] [address] POCT GLUCOSE METER UNSOLICIT ED RESULTSon 11-15-2023 Glucose [Mass/Vol] 165 mg/dL High 70-105 [facility] Comment on above: Order Comment: Waive d Testing in the ED is performed under the ED CLIA certificate #[id number]. Result Comment: karine [email or web address] Performed By: #### L [id number] ####[facility] ([facility])[address] [place] [address] Glucose [Mass/Vol] 208 mg/dL High 70-105 [facility] Comment on above: Order Comment: Waive d Testing in the ED is performed under the ED CLIA certificate #[id number]. Result Comment: mmcc vargas Performed By: #### L [id number] #### [facility] ([facility]) [address] [place] [address] POCT PERFUSION PANEL UNSOLIC ITED RESULTSon 11-15-2023 CO2 [Moles/Vol] 20.0 mmol/L Low 21.0-29.0 [facility] Comment on above: Performed By: #### L [id number] #### [facility] ([facility]) [address] [place] [address] Glucose [Mass/Vol] 210 mg/dL High 70-105 [facility] Comment on above: Performed By: #### L [id number] #### [facility] ([facility]) [address] [place] [address] HCO3 (Bld) [Moles/Vol] 18.9 mmol/L Low 23.0-28.0 [facility] Comment on above: Performed By: #### L [id number] #### [facility] [address] [place] [address] Hematocrit (Bld) [Volume fraction] 26 % Low 38-51 [facility] Comment on above: Performed By: #### L [id number] #### [facility] [address] [place] [address] Hemoglobin (Bld) [Mass/Vol] 8.8 g/dL Low 12.0-17.0 [facility] Comment on above: Performed By: #### L [id number] #### [facility] [address] [place] [address] POCT BASE EXCESS -7.0 mmol/L Low -2.0-3.0 [facility] Comment on above: Performed By: #### L [id number] #### [facility] [address] [place] [address] POCT IONIZED CALCIUM 1.15 mmol/L Normal 1.12-1.32 [facility] Comment on above: Performed By: #### L [id number] #### [facility] [address] [place] [address] POCT PCO2 39.7 mmHg Low 41.0-51.0 [facility] Comment on above: Performed By: #### L [id number] #### [facility] ([facility]) [address] [place] [address] POCT PH 7.29 Low 7.31-7.41 [facility] Comment on above: Performed By: #### L [id number] #### [facility] ([facility]) [address] [place] [address] POCT PO2 68 mmHg Low 80-105 [facility] Comment on above: Performed By: #### L [id number] #### [facility] ([facility]) [address] [place] [address] POCT SO2 91 % Low 95-98 [facility] Comment on above: Performed By: #### L [id number] #### [facility] [address] [place] [address] Potassium [Moles/Vol] 3.8 mmol/L Normal 3.5-4.9 [facility] Comment on above: Performed By: #### L [id number] #### [facility] ([facility]) [address] [place] [address] Sodium [Moles/Vol] 142 mmol/L Normal 138.0-146.0 [facility] Comment on above: Performed By: #### L [id number] #### [facility] ([facility]) [address] [place] [address] POTASSIUM, WHOLE BLOODon Potassium [Moles/Vol] 3.1 mmol/L Low 3.5-5.1 [facility] Comment on above: Performed By: #### L [id number] #### [facility] ([facility]) [address] [place] [address] Potassium [Moles/Vol] 3.9 mmol/L Normal 3.5-5.1 [facility] Comment on above: Performed By: #### L [id number] #### [facility] ([facility]) [address] [place] [address] Potassium [Moles/Vol] 3.8 mmol/L Normal 3.5-5.1 [facility] Comment on above: Performed By: #### L [id number] #### [facility] ([facility]) [address] [place] [address] Potassium [Moles/Vol] 5.1 mmol/L Normal 3.5-5.1 [facility] Comment on above: Performed By: #### L [id number] #### [facility] ([facility]) [address] [place] [address] PROTIME-INRon 11-15-2023 INR IN PPP BY COAGULATION ASSAY 11.87 Critically high 0.90-1.10 [facility] Comment on above: Result Comment: [facility] P RECOMMENDED INR FOR WARFARIN THERAPY CONDITION INR PROPHYLAXIS OF VENOUS THROMBOSIS 2-3 (HIGH-RISK SURGERY) TREATMENT OF VENOUS THROMBOSIS 2-3 TREATMENT OF PULMONARY EMBOLISM 2-3 PREVENTION OF SYSTEMIC EMBOLISM: 2-3 ACUTE MYOCARDIAL INFARCTION TISSUE HEART VALVES VALVULAR HEART DISEASE ATRIAL FIBRILLATION RECURRENT SYSTEMIC EMBOLISM MECHANICAL HEART VALVE 2.5-3.5 FROM: ORAL ANTICOAGULANTS. MECHANISM OF ACTION, CLINICAL EFFECTIVENESS, AND OPTIMAL THERAPEUTIC RANGE. CHEST 1995;108:231S-246S. Performed By: #### L [id number] #### [facility] ([facility]) [address] [place] [address] PROTHROMBIN TIME (PT) IN PPP BY COAGULATION ASSAY 92.6 Seconds Critically high 12.3-14.8 [facility] Comment on above: Performed By: #### L [id number] #### [facility] ([facility]) [address] [place] [address] INR IN PPP BY COAGULATION ASSAY 12.96 Critically high 0.90-1.10 [facility] Comment on above: Result Comment: [facility] P RECOMMENDED INR FOR WARFARIN THERAPY CONDITION INR PROPHYLAXIS OF VENOUS THROMBOSIS 2-3 (HIGH-RISK SURGERY) TREATMENT OF VENOUS THROMBOSIS 2-3 TREATMENT OF PULMONARY EMBOLISM 2-3 PREVENTION OF SYSTEMIC EMBOLISM: 2-3 ACUTE MYOCARDIAL INFARCTION TISSUE HEART VALVES VALVULAR HEART DISEASE ATRIAL FIBRILLATION RECURRENT SYSTEMIC EMBOLISM MECHANICAL HEART VALVE 2.5-3.5 FROM: ORAL ANTICOAGULANTS. MECHANISM OF ACTION, CLINICAL EFFECTIVENESS, AND OPTIMAL THERAPEUTIC RANGE. CHEST 1995;108:231S-246S. Performed By: #### L [id number] #### [facility] ([facility]) [address] [place] [address] PROTHROMBIN TIME (PT) IN PPP BY COAGULATION ASSAY 99.2 Seconds Critically high 12.3-14.8 [facility] Comment on above: Performed By: #### L [id number] #### [facility] ([facility]) [address] [place] [address] SODIUM, WHOLE BLOODon 2023 SODIUM, WHOLE BLOOD 143 Normal 136-[facility] Comment on above: Performed By: #### L [id number] #### [facility] ([facility]) [address] [place] [address] SODIUM, WHOLE BLOOD 142 Normal 136-[address] [facility] Comment on above: Performed By: #### S ODIUM, WHOLE BLOOD ####[facility] [id number] [place] [address] [facility] SODIUM, WHOLE BLOOD 140 Normal 136-[address] [facility] Comment on above: Performed By: #### L [id number] #### [facility] ([facility]) [address] [place] [address] SODIUM, WHOLE BLOOD 138 Normal 136-[address] [facility] Comment on above: Performed By: #### L [id number] #### [facility] ([facility]) [address] [place] [address] TROPONIN Ion 11-15-2023 Troponin I.cardiac [Mass/Vol] 0.10 ng/mL High 0.00-0.04 [facility] Comment on above: Performed By: #### L [id number] #### [facility] ([facility]) [address] [place] [address] VANCOMYCIN, PEAKon VANCOMYCIN (UG/ML) IN SER/PLAS - PEAK 21.0 ug/mL Normal 20.0-50.0 [facility] Comment on above: Performed By: #### L [id number] ####[facility] ([facility])[address] [place] [address] VITAMIN D 25 HYDROXYon 11-14 CALCIDIOL (25 [place] VITAMIN D3) (NG/ML) IN SER/PLAS 26.1 ng/mL Low 30.0-80.0 [facility] Comment on above: Result Comment: >80. 0 Toxicity possible Performed By: #### L [id number] #### [facility] ([facility]) [address] [place] [address] 30on 11-14-2023 30 Daily Case Managemen t Update Multidisciplinary rounds have been completed. Barriers to Discharge: Pending Clinical course. S/p fall. Planning ORIF Left femur to day with ortho. Pt/ot ordered for POD 1. Confused. From [facility]. Diet: Dietary Orders (From admission, onward) Start Ordered 11/14/23 0001 Diet NPO Diet effective midnight Comments: Sips with medications Question: Reason for NPO: Answer: Operation/Procedure 11/13/232252 Physician Expected Discharge Date: 11/16/2023 Discharge Delays: PT Six Click Score: 7 OT Six Click Score: PT Recommendations: OT Recommendations: New Consults: Consult Orders (From admission, onward) Start Ordered 11/13/23 2304 Inpatient Consult to Orthopaedic Surgery Once Specialty: Orthopaedic Surgery Provider: (Not yet assigned) Question Answer Comment Consulting Group ORTHOPAEDIC SURGERY TEAM Reason for Consult? Femur fx Level of Consultation Consultation and Management 11/13/232303 Ancillary Consults (From admission, onward) Start Ordered 11/13/232233 Inpatient consult to Social Work Once Provider: (Not yet assigned) Question Answer Comment Select all services needed for the patient Snf Facility (30 day convalescent stay) Please indicate your approval for this care by adding your name here: FRAN LANDRY 11/13/232303 Therapy Orders (From admission, onward) Start Ordered 11/13/232248 OT eval and treat Until therapy completed Question: Reason for OT? Answer: Trauma 11/13/23 2304 11/13/232248 PT eval and treat Until therapy completed Question: Reason for PT? Answer: Trauma 11/13/232303 Normal [facility] 30 The patient is Moderately Stable - Low risk of patient condition declining or worsening The patient's goals for the shift include The clinical goals for the shift include comfort, safety Problem: Pain - Adult Goal: Verbalizes/displays adequate comfort level or baseline comfort level Outcome: Progressing Problem: Safety - Adult Goal: Free from fall injury Outcome: Progressing Problem: Discharge Planning Goal: Discharge to home or other facility with appropriate resources Outcome: Progressing Problem: Chronic Conditions and Co-morbidities Goal: Patient's chronic conditions and co-morbidity symptoms are monitored and maintained or improved Outcome: Progressing Normal [facility] ARTERIAL BLOOD GAS WITH CO-O XIMETRYon 11-14-2023 Base excess Calc (Bld) [Moles/Vol] 2.2 mmol/L Normal -2.0-3.0 [facility] Comment on above: Order Comment: Pt in tubated in OR Performed By: #### L [id number] ####[facility] [id number] [place] [address] [facility] CARBOXYHEMOGLOBIN/HEM OGLOBIN TOTAL % IN BLOOD 1.5 % Normal 0.0-3.0 [facility] Comment on above: Order Comment: Pt in tubated in OR Performed By: #### L [id number] ####[facility] [id number] [place] [address] [place] CO2 (Bld) [Partial pressure] 39 mm[Hg] Normal 35-48 [facility] Comment on above: Order Comment: Pt in tubated in OR Performed By: #### L [id number] ####[facility] [id number] [place] [address] [place] DEOXYGENATED HEMOGLOBIN IN BLOOD 0.9 % Low 1-5 [facility] Comment on above: Order Comment: Pt in tubated in [place] Performed By: #### L [id number] ####[facility] [id number] [place] [address] [place] HCO3 (Bld) [Moles/Vol] 26.5 mmol/L Normal 21.0-28.0 [facility] Comment on above: Order Comment: Pt in tubated in [place] Performed By: #### L [id number] ####[facility] [id number] [place] [address] [place] Hemoglobin (Bld) [Mass/Vol] 9.0 g/dL Low 11.7-17.4 [facility] Comment on above: Order Comment: Pt in tubated in [place] Performed By: #### L [id number] ####[facility] [id number] [place] [address] [place] METHEMOGLOBIN/100 IN BLOOD 0.2 % Normal 0.0-1.5 [facility] Comment on above: Order Comment: Pt in tubated in [place] Performed By: #### L [id number] ####[facility] [id number] [place] [address] [place] Oxygen (Bld) [Partial pressure] 125 mm[Hg] High 83-100 [facility] Comment on above: Order Comment: Pt in tubated in [place] Performed By: #### L [id number] ####[facility] [id number] [place] [address] [place] OXYGEN SATURATION (%) IN ARTERIAL BLOOD 99.1 % High 94.0-98.0 [facility] Comment on above: Order Comment: Pt in tubated in [place] Performed By: #### L [id number] ####[facility] [id number] [place] [address] [place] OXYGENATED HEMOGLOBIN IN BLOOD 97.4 % High 90.0-95.0 [facility] Comment on above: Order Comment: Pt in tubated in [place] Performed By: #### L [id number] ####[facility] [id number] [address] [facility] pH (Bld) 7.44 [pH] Normal 7.35-7.45 [facility] Comment on above: Order Comment: Pt in tubated in [place] Performed By: #### L [id number] ####[facility] [id number] [facility] [place] [address] [facility] SOURCE OF OXYGEN Vent Normal [facility] Comment on above: Order Comment: Pt in tubated in [place] Performed By: #### L [id number] ####[facility] [id number] [place] [address] [facility] Base excess Calc (Bld) [Moles/Vol] 7.0 mmol/L High -2.0-3.0 [facility] Comment on above: Performed By: #### L [id number] #### [facility] (BEAKER) [address] [place] [address] CARBOXYHEMOGLOBIN/HEM OGLOBIN TOTAL % IN BLOOD 1.4 % Normal 0.0-3.0 [facility] Comment on above: Performed By: #### L [id number] #### [facility] (BEAKER) [address] [place] [address] CO2 (Bld) [Partial pressure] 33 mm[Hg] Low 35-48 [facility] Comment on above: Performed By: #### L [id number] #### [facility] (BEAKER) [address] [place] [address] DEOXYGENATED HEMOGLOBIN IN BLOOD 1.2 % Normal 1-5 [facility] Comment on above: Performed By: #### L [id number] #### [facility] (BEAKER) [address] [place] [address] HCO3 (Bld) [Moles/Vol] 29.5 mmol/L High 21.0-28.0 [facility] Comment on above: Performed By: #### L [id number] #### [facility] (BEAKER) [address] [place] [address] Hemoglobin (Bld) [Mass/Vol] 9.7 g/dL Low 11.7-17.4 [facility] Comment on above: Performed By: #### L [id number] #### [facility] (BEAKER) [address] [place] [address] METHEMOGLOBIN/100 IN BLOOD 0.7 % Normal 0.0-1.5 [facility] Comment on above: Performed By: #### L [id number] #### [facility] (BEAKER) [address] [place] [address] Oxygen (Bld) [Partial pressure] 135 mm[Hg] High 83-100 [facility] Comment on above: Performed By: #### L [id number] #### [facility] (BEAKER) [address] [place] [address] OXYGEN SATURATION (%) IN ARTERIAL BLOOD 98.8 % High 94.0-98.0 [facility] Comment on above: Performed By: #### L [id number] #### [facility] (BEAKER) [address] [place] [address] OXYGENATED HEMOGLOBIN IN BLOOD 96.7 % High 90.0-95.0 [facility] Comment on above: Performed By: #### L [id number] #### [facility] (BEAKER) [address] [place] [address] pH (Bld) 7.56 [pH] Critically high 7.35-7.45 [facility] Comment on above: Performed By: #### L [id number] #### [facility] (BEAKER) [address] [place] [address] SOURCE OF OXYGEN Vent Normal [facility] Comment on above: Performed By: #### L [id number] #### [facility] (BEAKER) [address] [place] [address] BASIC METABOLIC PANELon 07-0 Anion gap [Moles/Vol] 12 mmol/L Normal 7-20 [facility] Comment on above: Performed By: #### L [id number] #### [facility] ([facility]) [address] [place] [address] Calcium [Mass/Vol] 7.4 mg/dL Low 8.6-10.3 [facility] Comment on above: Performed By: #### L [id number] #### [facility] ([facility]) [address] [place] [address] Chloride [Moles/Vol] 105 mmol/L Normal 98-107 [facility] Comment on above: Performed By: #### L [id number] #### [facility] ([facility]) [address] [place] [address] CO2 [Moles/Vol] 31 mmol/L Normal 21-31 [facility] Comment on above: Performed By: #### L [id number] #### [facility] ([facility]) [address] [place] [address] Creatinine [Mass/Vol] 0.91 mg/dL Normal 0.60-1.20 [facility] Comment on above: Performed By: #### L [id number] #### [facility] ([facility]) [address] [place] [address] GLOMERULAR FILTRATION RATE ML/MIN/1.73 SQ M.PREDICTED 64.2 mL/min/1.73m*2 Normal >60.0 [facility] Comment on above: Result Comment: The [facility]???s estimated glomerular filtration rate (eGFR) will no longer include consideration of race in its calculation. The National Kid[employer] Foundation???s eGFR Task Force developed new recommendations for the estimation of the glomerular filtration rate in the [place] They recommend immediate implementation of the new equation refit without the race variable in all laboratories because the calculation does not include race. In addition to not including race in the calculation and reporting, it included diversity in its development, and has acceptable performance characteristics and potential consequences that do not disproportionately affect any one group of individuals. Performed By: #### L [id number] #### [facility] ([facility]) [address] [place] [address] Glucose [Mass/Vol] 120 mg/dL High 70-100 [facility] Comment on above: Performed By: #### L [id number] #### [facility] ([facility]) [address] [place] [address] Potassium [Moles/Vol] 4.1 mmol/L Normal 3.5-5.1 [facility] Comment on above: Performed By: #### L [id number] #### [facility] ([facility]) [address] [place] [address] Sodium [Moles/Vol] 144 mmol/L Normal 136-145 [facility] Comment on above: Performed By: #### L [id number] #### [facility] ([facility]) [address] [place] [address] Urea nitrogen [Mass/Vol] 24 mg/dL Normal 7-25 [facility] Comment on above: Performed By: #### L [id number] #### [facility] ([facility]) [address] [place] [address] UREA NITROGEN/CREATININE (MASS RATIO) IN SER/PLAS 26.4 Normal [facility] Comment on above: Performed By: #### L [id number] #### [facility] ([facility]) [address] [place] [address] CALCIUM, IONIZEDon CALCIUM IONIZED (MMOL/L) IN BLOOD 1.17 mmol/L Normal 1.15-1.33 [facility] Comment on above: Performed By: #### L [id number] #### [facility] ([facility]) [address] [place] [address] CBC WITH AUTO DIFFERENTIALon 11-14-2023 Basophils (Bld) [#/Vol] 0.03 10*3/uL Normal 0.00-0.20 [facility] Comment on above: Performed By: #### L [id number] #### [facility] (BE[facility]ER) [address] [place] [address] Basophils/100 WBC (Bld) 0.4 % Normal 0.0-1.0 [facility] Comment on above: Performed By: #### L [id number] #### [facility] [address] [place] [address] Eosinophils (Bld) [#/Vol] 0.00 10*3/uL Normal 0.00-0.50 [facility] Comment on above: Performed By: #### L [id number] #### [facility] ([facility]) [address] [place] [address] Eosinophils/100 WBC (Bld) 0.0 % Normal 0.0-6.0 [facility] Comment on above: Performed By: #### L [id number] #### [facility] ([facility]) [address] [place] [address] Erythrocyte distribution width (RBC) [Ratio] 16.0 % High 11.5-15.0 [facility] Comment on above: Performed By: #### L [id number] #### [facility] ([facility]) [address] [place] [address] ERYTHROCYTE MEAN CORPUSCULAR HEMOGLOBIN CONCENTRATION (G/DL) BY AUTOMATED 30.2 g/dL Low 32.0-35.0 [facility] Comment on above: Performed By: #### L [id number] #### [facility] ([facility]) [address] [place] [address] Hematocrit (Bld) [Volume fraction] 32.1 % Low 36.0-48.0 [facility] Comment on above: Performed By: #### L [id number] #### [facility] ([facility]) [address] [place] [address] Hemoglobin (Bld) [Mass/Vol] 9.7 g/dL Low 12.0-15.0 [facility] Comment on above: Performed By: #### L [id number] #### [facility] (BEAKER) [address] [place] [address] Immature granulocytes (Bld) [#/Vol] 0.07 10*3/uL Normal 0.00-0.20 [facility] Comment on above: Performed By: #### L [id number] #### [facility] (BEAKER) [address] [place] [address] Immature granulocytes/100 WBC (Bld) 0.8 % Normal 0.0-1.0 [facility] Comment on above: Performed By: #### L [id number] #### [facility] (BEAKER) [address] [place] [address] Lymphocytes (Bld) [#/Vol] 1.34 10*3/uL Normal 1.20-4.00 [facility] Comment on above: Performed By: #### L [id number] #### [facility] ([facility]ER) [address] [facility] [place] [address] Lymphocytes/100 WBC (Bld) 15.9 % Low 20.0-45.0 [facility] Comment on above: Performed By: #### L [id number] #### [facility] (BEAKER) [address] [facility] [place] [address] MCH (RBC) [Entitic mass] 29.1 pg Normal 27.0-33.0 [facility] Comment on above: Performed By: #### L [id number] #### [facility] (BEAKER) [address] [facility] [place] [address] MCV (RBC) [Entitic vol] 96.4 fL Normal 82.0-98.0 [facility] Comment on above: Performed By: #### L [id number] #### [facility] (BEAKER) [address] [place] [address] Monocytes (Bld) [#/Vol] 0.77 10*3/uL Normal 0.10-1.00 [facility] Comment on above: Performed By: #### L [id number] #### [facility] (BEAKER) [address] [place] [address] Monocytes/100 WBC (Bld) 9.1 % Normal 5.0-12.0 [facility] Comment on above: Performed By: #### L [id number] #### [facility] ([facility]) [address] [place] [address] Neutrophils (Bld) [#/Vol] 6.22 10*3/uL Normal 1.60-7.60 [facility] Comment on above: Performed By: #### L [id number] #### [facility] ([facility]) [address] [place] [address] Neutrophils/100 WBC (Bld) 73.8 % High 40.0-72.0 [facility] Comment on above: Performed By: #### L [id number] #### [facility] ([facility]) [address] [place] [address] NRBC (PER 100 WBCS) BY AUTOMATED COUNT 0.0 % Normal 0 [facility] Comment on above: Performed By: #### L [id number] #### [facility] ([facility]) [address] [place] [address] PLATELETS (10*3/UL) IN BLOOD AUTOMATED COUNT 223 10*3/uL Normal 150-400 [facility] Comment on above: Performed By: #### L [id number] #### [facility] ([facility]) [address] [place] [address] RBC (Bld) [#/Vol] 3.33 10*6/uL Low 3.80-5.00 [facility] Comment on above: Performed By: #### L [id number] #### [facility] ([facility]) [address] [place] [address] WBC (Bld) [#/Vol] 8.43 10*3/uL Normal 4.00-10.60 [facility] Comment on above: Performed By: #### L [id number] #### [facility] [address] [place] [address] CONSULTon 07-02-2024 CONSULT -- Attestation signed by Dedrick Jain MD at 11/14/2023 2:51 PM Patient was seen and reviewed and personally Evaluated by myself and the Resident Cardiology Consult Note REASON FOR CONSULT Reason for Consult: pre-op clearance SUBJECTIVE HPI: Celia Menon is a 78 y.o. female with a medical history significant for A-Fib on Eliquis, PVD, and Dementia who presented with a femur fracture following a fall at [facility]. Cardiology was consulted for pre-op clearance. Patient is altered and disoriented and is a poor historian. However; she denies any fevers, chills, chest pain, palpitations, SOB, light-headedness, N, V, abdominal pain, or D. Cardiovascular exam was unremarkable; patient did have LE chronic venous stasis changes. Cardiology ROS: Limited as patient is altered and disoriented Review of Systems Constitutional: Negative. HENT: Negative. Respiratory: Negative. Cardiovascular: Negative. Gastrointestinal: Negative. Genitourinary: Negative. Musculoskeletal: Positive for arthralgias and myalgias. Physical Examination: Physical Exam Constitutional: Appearance: She is obese. She is ill-appearing. HENT: Head: Normocephalic and atraumatic. Eyes: Conjunctiva/sclera: Conjunctivae normal. Pupils: Pupils are equal, round, and reactive to light. Cardiovascular: Rate and Rhythm: Normal rate and regular rhythm. Pulses: Normal pulses. Heart sounds: Normal heart sounds. Pulmonary: Effort: Pulmonary effort is normal. Breath sounds: Normal breath sounds. Abdominal: General: Bowel sounds are normal. Palpations: Abdomen is soft. Neurological: Mental Status: She is disoriented. Past Medical History She has a past medical history of Anemia, Atrial fibrillation ([facility]), Calcaneal spur of both feet, Cataracts, bilateral, CHF (congestive heart failure) ([facility]), Chronic pain, Cognitive communication deficit, Delusional disorder ([facility]), Dementia ([facility]), Depression, Fall (11/13/2023), Femur fracture, left ([facility]) (11/13/2023), Generalized weakness, GERD (gastroesophageal reflux disease), History of COVID-19, Hypertension, Hypothyroid, Insomnia, OA (osteoarthritis), Obesity, PVD (peripheral vascular disease) ([facility]), Renal failure, Sick sinus syndrome ([facility]), and Tinea unguium. Surgical History She has a past surgical history that includes Total knee arthroplasty (Left) and Total hip arthroplasty (Left). Social History She has no history on file for tobacco use, alcohol use, and drug use. Family History No family history on file. Allergies Patient has no known allergies. Medications Current Outpatient Medications Medication Instructions acetaminophen (TYLENOL) 500 mg, oral, 3 times daily acetaminophen (TYLENOL) 500 mg, oral, Every 6 hours PRN ammonium lactate (Lac-Hydrin) 12 % lotion Topical, 2 times daily PRN apixaban (ELIQUIS) 5 mg, oral, 2 times daily aspirin 81 mg, oral, Daily atorvastatin (LIPITOR) 40 mg, oral, Nightly baclofen (LIORESAL) 20 mg, oral, Nightly CHOLECALCIFEROL, VITAMIN D3, ORAL 1,250 mcg, oral, Weekly, THURSDAYS dyclonine (Sucrets Sore Throat) 2 mg lozenge 1 lozenge, Mouth/Throat, As needed folic acid (FOLVITE) 1 mg, oral, Daily furosemide (Lasix) 20 mg tablet 2 tablets, oral, Daily guaifenesin/dextrometh orphan (CORICIDIN HBP CHEST YOKASTA-COUGH ORAL) 1 capsule, oral, 2 times daily PRN hydrophilic cream (TRIAD WOUND DRESSING TOP) 1 Application, topical (top), See admin instructions, Q SHIFT levothyroxine (SYNTHROID, LEVOXYL) 100 mcg, oral, Daily before breakfast lidocaine (Aspercreme, lidocaine,) adhesive patch,medicated patch 1 patch, topical (top), Daily, R hip loperamide (IMODIUM A-D) 2 mg, oral, 2 times daily PRN melatonin (MELATIN) 3 mg, oral, Nightly menthol (Biofreeze, menthol,) 10 % cream 1 Application, topical (top), 3 times daily, R knee metoprolol succinate XL (Toprol-XL) 25 mg 24 hr tablet 0.5 tablets, oral, Daily, Do not crush or chew. morphine CR (MS CONTIN) 15 mg, oral, See admin instructions, Do not crush, chew, or split. EVERY 8 HRS nystatin (Mycostatin) 100,000 unit/gram powder 1 Application, Topical ondansetron (ZOFRAN) 4 mg, oral, Every 6 hours PRN oxyCODONE (ROXICODONE) 5 mg, oral, Every 12 hours PRN polyethylene glycol (Glycolax) oral powder 17 g, oral, Daily PRN POTASSIUM CITRATE ORAL 10 mEq, oral, 4 times daily sertraline (ZOLOFT) 25 mg, oral, Nightly sertraline (ZOLOFT) 50 mg, oral, Nightly Medications Prior to Admission Medication Sig Dispense Refill Last Dose acetaminophen (Tylenol) 500 mg tablet Take 500 mg by mouth three times daily. acetaminophen (Tylenol) 500 mg tablet Take 500 mg by mouth every 6 (six) hours if needed for mild pain (1-3 pain score). ammonium lactate (Lac-Hydrin) 12 % lotion Apply topi (more content not included)... Normal [facility] HPon 11-14-2023 History Of Present Illness Celia Menon is a 78 y.o. female presenting with left thigh pain due to a fall at her facility yesterday. She denies having to use any assistive devices at baseline prior to this fall. Patient does have a history of dementia. No family at bedside. Orthopaedics consulted due to left interprosthetic femur fracture. Past Medical History She has a past medical history of Anemia, Atrial fibrillation (CMS/HCC), Calcaneal spur of both feet, Cataracts, bilateral, CHF (congestive heart failure) (CMS/HCC), Chronic pain, Cognitive communication deficit, Delusional disorder (CMS/HCC), Dementia (CMS/HCC), Depression, Fall (11/13/2023), Femur fracture, left ([facility]) (11/13/2023), Generalized weakness, GERD (gastroesophageal reflux disease), History of COVID-19, Hypertension, Hypothyroid, Insomnia, OA (osteoarthritis), Obesity, PVD (peripheral vascular disease) ([facility]), Renal failure, Sick sinus syndrome ([facility]), and Tinea unguium. Surgical History She has a past surgical history that includes Total knee arthroplasty (Left) and Total hip arthroplasty (Left). Social History She has no history on file for tobacco use, alcohol use, and drug use. Family History No family history on file. Allergies Patient has no known allergies. Medications Medications Prior to Admission Medication Sig Dispense Refill Last Dose acetaminophen (Tylenol) 500 mg tablet Take 500 mg by mouth three times daily. acetaminophen (Tylenol) 500 mg tablet Take 500 mg by mouth every 6 (six) hours if needed for mild pain (1-3 pain score). ammonium lactate (Lac-Hydrin) 12 % lotion Apply topically if needed in the morning and at bedtime for dry skin (BLE). apixaban (Eliquis) 5 mg tablet Take 5 mg by mouth in the morning and at bedtime. aspirin 81 mg EC tablet Take 81 mg by mouth in the morning. atorvastatin (Lipitor) 40 mg tablet Take 40 mg by mouth at bedtime. baclofen (Lioresal) 20 mg tablet Take 20 mg by mouth at bedtime. CHOLECALCIFEROL, VITAMIN D3, ORAL Take 1,250 mcg by mouth 1 (one) time per week. THURSDAYS dyclonine (Sucrets Sore Throat) 2 mg lozenge Dissolve 1 lozenge in the mouth if needed. folic acid (Folvite) 1 mg tablet Take 1 mg by mouth in the morning. furosemide (Lasix) 20 mg tablet Take 2 tablets by mouth in the morning. guaifenesin/dextrometh orphan (CORICIDIN HBP CHEST YOKASTA-COUGH ORAL) Take 1 capsule by mouth if needed in the morning and at bedtime. hydrophilic cream (TRIAD WOUND DRESSING TOP) Apply 1 Application topically See administration instructions. Q SHIFT levothyroxine (Synthroid, Levoxyl) 100 mcg tablet Take 100 mcg by mouth before breakfast. lidocaine (Aspercreme, lidocaine,) adhesive patch,medicated patch Apply 1 patch topically in the morning. R hip loperamide (Imodium A-D) 2 mg tablet Take 2 mg by mouth if needed in the morning and at bedtime for diarrhea. melatonin (Melatin) 3 mg tablet Take 3 mg by mouth at bedtime. menthol (Biofreeze, menthol,) 10 % cream Apply 1 Application topically three times daily. R knee metoprolol succinate XL (Toprol-XL) 25 mg 24 hr tablet Take 0.5 tablets by mouth in the morning. Do not crush or chew. morphine CR (MS Contin) 15 mg 12 hr tablet Take 15 mg by mouth See administration instructions. Do not crush, chew, or split. EVERY 8 HRS nystatin (Mycostatin) 100,000 unit/gram powder Apply 1 Application topically. ondansetron (Zofran) 4 mg tablet Take 4 mg by mouth every 6 (six) hours if needed for nausea or vomiting. oxyCODONE (Roxicodone) 5 mg immediate release tablet Take 5 mg by mouth every 12 (twelve) hours if needed for severe pain (8-10 pain score). polyethylene glycol (Glycolax) oral powder Take 17 g by mouth if needed each day. POTASSIUM CITRATE ORAL Take 10 mEq by mouth in the morning, at noon, in the evening, and at bedtime. sertraline (Zoloft) 25 mg tablet Take 25 mg by mouth at bedtime. sertraline (Zoloft) 50 mg tablet Take 50 mg by mouth at bedtime. Review of Systems Last Recorded Vitals Visit Vitals BP 113/62 Pulse 98 Temp 36.2 ???C (97.2 ???F) Resp 20 Ht 1.676 m (5' 6 ) Wt 115 kg (253 lb 8.5 oz) SpO2 96% BMI 40.92 kg/m??? Smoking Status Unknown BSA 2.31 m??? Physical Exam Relevant Lab Results Lab Results Component Value Date NA 144 11/14/2023 K 4.1 11/14/2023 CL 105 11/14/2023 CO2 31 11/14/2023 BUN 24 11/14/2023 CREATININE 0.91 11/14/2023 GLUCOSE 120 (H) 11/14/2023 CALCIUM 7.4 (L) 11/14/2023 ANIONGAP 12 11/14/2023 EGFR 64.2 11/14/2023 BCR 26.4 11/14/2023 Awake and alert. No distress. LLE- in splint. Skin intact. Compartments soft and compressible. Moves her toes. Full sensation distally. Toes warm and well perfused. Relevant Imaging Results Complete Echo (TTE) w/wo Imaging Agent, Strain, 3D, Bubble Study 1 1 [facility] [address] [place] [address] [phone] (fax) Echocardiogram-OR (more content not included)... Normal [facility] MAGNESIUMon 11-14-2023 Magnesium [Mass/Vol] 1.7 mg/dL Low 1.9-2.7 [facility] Comment on above: Performed By: #### L [id number] #### [facility] (BEAKER) [address] [place] [address] OPNOTEon 11-14-2023 [facility] Date of Surgery: 11/14/2023 Surgeon: Aric Smith MD Die Mounter: Long Perdomo MD, Quinten Rahman DO Preoperative Diagnosis: Left displaced interprosthetic femur fracture Postoperative Diagnosis: Left displaced interprosthetic femur fracture Procedures Performed: Open reduction internal fixation of left displaced interprosthetic femur fracture Application of fibular strut allograft for intramedullary support and fixation Anesthesia: General anesthesia IV Fluids: Per anesthesia record Estimated Blood Loss: 1000 mL Complications: None Implants: Synthes 4.5 mm variable angle curved condylar 16 hole plate 11 variable angle 5.0 mm locking screws 2 cortical 4.5 mm screws 4 x 1.7 mm cables Fibular strut allograft Specimens: None Intraoperative Findings: Displaced periprosthetic femur fracture at the beginning of the case. Periprosthetic femur fracture in near-anatomic alignment with cable, plate and screw fixation in appropriate position at the conclusion of the case. Indications For Procedure: Celia Menon is a 78 y.o. female who was transferred from [place] for a left periprosthetic femur fracture. Due to the displaced nature of her fracture and its inherent instability, she was indicated for operative stabilization. Procedure Detail: The patient was met in the preoperative holding area where their identity, procedure to be performed, and correct operative site were identified. The operative site was marked with the attending's initials. The patient was taken back to the operative theater where they were placed under general anesthesia without complication. We positioned the patient laterally on a beanbag with an axillary roll appropriately positioned. The patient's left lower extremity was then prepped and draped in the usual sterile fashion. A preoperative timeout was performed, confirming the patient's identity, procedure to be performed, and correct operative site. Everyone present was in agreement. Preoperative antibiotics were administered. We began the procedure by making an incision over the lateral femur. We dissected down to IT band and made a quinten in the fascia and used Metzenbaum scissors to cut the IT band proximally and distally. We elevated the vastus lateralis and performed a subvastus approach to our fracture. Bleeding was encountered during our approach but we were able to maintain appropriate hemostasis with electrocautery. We were able to visualize our fracture and we cleaned the fracture ends with a combination of curette, rongeur, irrigation and suction taking care to leave as much fracture hematoma undisturbed as possible to allow appropriate cortical reads and reduction. Due to her extremely poor bone quality we believed she would benefit from a fibular strut allograft. We were able to place this fibular strut allograft within the distal femur which helped provide better bone stock. We were then able to reduce her fracture in near-anatomic alignment and placed and tightened 3 cables for provisional fixation about the main fracture line and one distally to hold a nondisplaced split in the distal segment. Orthogonal x-rays at this time demonstrated appropriate fracture reduction and cable placement. We then applied a Synthes 4.5 mm variable angle curved condylar 16 hole plate onto the lateral femur and secured the plate to the bone with K wires. Orthogonal x-rays at this time demonstrated appropriate fracture reduction and plate positioning and overlap of the pre-existing hardware. We then drilled and filled for 2 cortical screws, 1 within the proximal plate and 1 within the distal plate to help compress the plate to the bone. We then drilled and filled the distal plate with 7 x 5.0 mm locking screws. We drilled and filled the proximal plate with 4 x 5.0 mm locking screws and 1 more 4.5 mm cortical screw. Of note, we did remove the initial 4.5 mm cortical screw in the proximal plate as this did not have appropriate purchase at the conclusion of our case. Orthogonal x-rays at this time demonstrated appropriate fracture reduction, and plate, screw and cable fixation. We then irrigated the wound with 3 L of normal saline and applied vancomycin powder onto the plate and bone. Hemostasis was maintained. We then closed in layered fashion, IT band with 1 Vicryl, adipose layer with 0 Vicryl, subcutaneous layer with 2-0 Vicryl and izabela for skin. The drapes were taken down and the patient was awoken from anesthesia without complication. They were transferred back to their hospital bed and taken to PACU in stable condition. Postoperative Plan: The patient will be made partial weightbearing to her left lower extremity. She will be on 48 hours of postop and biotics. She can resume DVT prophylaxis per primary starting postop day 1 and should continue for at least 4 weeks. Follow-up with Dr. Smith in 10 t (more content not included)... Normal [facility] PHOSPHORUSon 11-14-2023 Magnesium [Mass/Vol] 4.5 mg/dL Normal 2.5-5.0 [facility] Comment on above: Performed By: #### L [id number] #### [facility] ([facility]) [address] [place] [address] POCT GLUCOSE METER UNSOLICIT ED RESULTSon 11-14-2023 Glucose [Mass/Vol] 181 mg/dL High 70-105 [facility] Comment on above: Order Comment: Waive d Testing in the ED is performed under the ED CLIA certificate #[id number]. Result Comment: czyd orc Performed By: #### L [id number] #### [facility] ([facility]) [address] [place] [address] Glucose [Mass/Vol] 120 mg/dL High 70-105 [facility] Comment on above: Order Comment: Waive d Testing in the ED is performed under the ED CLIA certificate #[id number]. Result Comment: epaw low Performed By: #### L [id number] #### [facility] ([facility]) [address] [facility] [place] [address] Glucose [Mass/Vol] 113 mg/dL High 70-105 [facility] Comment on above: Order Comment: Waive d Testing in the ED is performed under the ED CLIA certificate #[id number]. Result Comment: epoo le6 Performed By: #### L [id number] ####[facility] ([facility])[address] [place] [address] Glucose [Mass/Vol] 131 mg/dL High 70-105 [facility] Comment on above: Order Comment: Waive d Testing in the ED is performed under the ED CLIA certificate #[id number]. Result Comment: lzwo judith Performed By: #### L [id number] ####[facility] ([facility])[address] [place] [address] Glucose [Mass/Vol] 111 mg/dL High 70-105 [facility] Comment on above: Order Comment: Waive d Testing in the ED is performed under the ED CLIA certificate #[id number]. Result Comment: lzwo judith Performed By: #### L [id number] #### [facility] ([facility]) [address] [place] [address] POTASSIUM, WHOLE BLOODon Potassium [Moles/Vol] 4.0 mmol/L Normal 3.5-5.1 [facility] Comment on above: Performed By: #### L [id number] #### [facility] ([facility]) [address] [place] [address] SODIUM, WHOLE BLOODon 2023 SODIUM, WHOLE BLOOD 139 Normal 136-145 [facility] Comment on above: Performed By: #### L [id number] #### [facility] ([facility]) [address] [place] [address] APTTon 11-13-2023 ACTIVATED PARTIAL THROMBOPLASTIN TIME IN PPP BY COAGULATION ASSAY 34.0 Seconds Normal 25.0-35.0 [facility] Comment on above: Result Comment: Clin ical significance of the APTT is questionable in the presence of heparin. Performed By: #### L [id number] #### [facility] ([facility]) [address] [place] [address] BASIC METABOLIC PANELon 07-0 Anion gap [Moles/Vol] 16 mmol/L Normal 7-20 [facility] Comment on above: Performed By: #### L [id number] ####[facility] [place] [address] Calcium [Mass/Vol] 7.8 mg/dL Low 8.6-10.3 [facility] Comment on above: Performed By: #### L [id number] ####[facility] [place] [address] Chloride [Moles/Vol] 104 mmol/L Normal 98-107 [facility] Comment on above: Performed By: #### L [id number] ####[facility] [place] [address] CO2 [Moles/Vol] 27 mmol/L Normal 21-31 [facility] Comment on above: Performed By: #### L [id number] ####[facility] [place] [address] Creatinine [Mass/Vol] 0.91 mg/dL Normal 0.60-1.20 [facility] Comment on above: Performed By: #### L [id number] ####[facility] [place] [address] GLOMERULAR FILTRATION RATE ML/MIN/1.73 SQ M.PREDICTED 64.2 mL/min/1.73m*2 Normal >60.0 [facility] Comment on above: Result Comment: The [facility]???s estimated glomerular filtration rate (eGFR) will no longer include consideration of race in its calculation. The National Kid[employer] Foundation???s eGFR Task Force developed new recommendations for the estimation of the glomerular filtration rate in the [place] They recommend immediate implementation of the new equation refit without the race variable in all laboratories because the calculation does not include race. In addition to not including race in the calculation and reporting, it included diversity in its development, and has acceptable performance characteristics and potential consequences that do not disproportionately affect any one group of individuals. Performed By: #### L [id number] ####[facility] ([facility])[address] [place] [address] Glucose [Mass/Vol] 125 mg/dL High 70-100 [facility] Comment on above: Performed By: #### L [id number] ####[facility] ([facility])[address] [place] [address] Potassium [Moles/Vol] 4.4 mmol/L Normal 3.5-5.1 [facility] Comment on above: Performed By: #### L [id number] ####[facility] ([facility])[address] [place] [address] Sodium [Moles/Vol] 143 mmol/L Normal 136-145 [facility] Comment on above: Performed By: #### L [id number] ####[facility] ([facility])[address] [place] [address] Urea nitrogen [Mass/Vol] 23 mg/dL Normal 7-25 [facility] Comment on above: Performed By: #### L [id number] ####[facility] ([facility])[address] [place] [address] UREA NITROGEN/CREATININE (MASS RATIO) IN SER/PLAS 25.3 Normal [facility] Comment on above: Performed By: #### L [id number] ####[facility] ([facility])[address] [place] [address] CBC WITH AUTO DIFFERENTIALon 11-13-2023 Basophils (Bld) [#/Vol] 0.03 10*3/uL Normal 0.00-0.20 [facility] Comment on above: Performed By: #### L [id number] #### [facility] ([facility]) [address] [place] [address] Basophils/100 WBC (Bld) 0.3 % Normal 0.0-1.0 [facility] Comment on above: Performed By: #### L [id number] #### [facility] ([facility]) [address] [place] [address] Eosinophils (Bld) [#/Vol] 0.00 10*3/uL Normal 0.00-0.50 [facility] Comment on above: Performed By: #### L [id number] #### [facility] ([facility]) [address] [place] [address] Eosinophils/100 WBC (Bld) 0.0 % Normal 0.0-6.0 [facility] Comment on above: Performed By: #### L [id number] #### [facility] ([facility]) [address] [place] [address] Erythrocyte distribution width (RBC) [Ratio] 15.9 % High 11.5-15.0 [facility] Comment on above: Performed By: #### L [id number] #### [facility] ([facility]) [address] [place] [address] ERYTHROCYTE MEAN CORPUSCULAR HEMOGLOBIN CONCENTRATION (G/DL) BY AUTOMATED 30.4 g/dL Low 32.0-35.0 [facility] Comment on above: Performed By: #### L [id number] #### [facility] ([facility]) [address] [place] [address] Hematocrit (Bld) [Volume fraction] 36.2 % Normal 36.0-48.0 [facility] Comment on above: Performed By: #### L [id number] #### [facility] [address] [place] [address] Hemoglobin (Bld) [Mass/Vol] 11.0 g/dL Low 12.0-15.0 [facility] Comment on above: Performed By: #### L [id number] #### [facility] [address] [place] [address] Immature granulocytes (Bld) [#/Vol] 0.09 10*3/uL Normal 0.00-0.20 [facility] Comment on above: Performed By: #### L [id number] #### [facility] [address] [place] [address] Immature granulocytes/100 WBC (Bld) 0.9 % Normal 0.0-1.0 [facility] Comment on above: Performed By: #### L [id number] #### [facility] ([facility]) [address] [place] [address] Lymphocytes (Bld) [#/Vol] 1.28 10*3/uL Normal 1.20-4.00 [facility] Comment on above: Performed By: #### L [id number] #### [facility] ([facility]) [address] [place] [address] Lymphocytes/100 WBC (Bld) 12.4 % Low 20.0-45.0 [facility] Comment on above: Performed By: #### L [id number] #### [facility] ([facility]) [address] [facility] [place] [address] MCH (RBC) [Entitic mass] 28.8 pg Normal 27.0-33.0 [facility] Comment on above: Performed By: #### L [id number] #### [facility] ([facility]) [address] [place] [address] MCV (RBC) [Entitic vol] 94.8 fL Normal 82.0-98.0 [facility] Comment on above: Performed By: #### L [id number] #### [facility] ([facility]) [address] [place] [address] Monocytes (Bld) [#/Vol] 0.73 10*3/uL Normal 0.10-1.00 [facility] Comment on above: Performed By: #### L [id number] #### [facility] ([facility]) [address] [facility] [address] Monocytes/100 WBC (Bld) 7.1 % Normal 5.0-12.0 [facility] Comment on above: Performed By: #### L [id number] #### [facility] [address] [place] [address] Neutrophils (Bld) [#/Vol] 8.21 10*3/uL High 1.60-7.60 [facility] Comment on above: Performed By: #### L [id number] #### [facility] ([facility]) [address] [place] [address] Neutrophils/100 WBC (Bld) 79.3 % High 40.0-72.0 [facility] Comment on above: Performed By: #### L [id number] #### [facility] ([facility]) [address] [place] [address] NRBC (PER 100 WBCS) BY AUTOMATED COUNT 0.0 % Normal 0 [facility] Comment on above: Performed By: #### L [id number] #### [facility] ([facility]) [address] [place] [address] PLATELETS (10*3/UL) IN BLOOD AUTOMATED COUNT 262 10*3/uL Normal 150-400 [facility] Comment on above: Performed By: #### L [id number] #### [facility] ([facility]) [address] [place] [address] RBC (Bld) [#/Vol] 3.82 10*6/uL Normal 3.80-5.00 [facility] Comment on above: Performed By: #### L [id number] #### [facility] ([facility]) [address] [place] [address] WBC (Bld) [#/Vol] 10.34 10*3/uL Normal 4.00-10.60 [facility] Comment on above: Performed By: #### L [id number] #### [facility] ([facility]) [address] [place] [address] CONSULTon 11-13-2023 CONSULT -- Attestation signed by Flako Gonzalez MD at 11/14/2023 3:09 PM I did not personally examine the patient. I discussed the case with the resident and agree with the plan. Orthopedic Surgery Subjective Left femur periprosthetic fracture 11/13/23 Celia Menon is a 78 y.o. female presenting as a transfer from [place] with pain secondary to left sided zarina-prosthetic fracture femur as demonstrated on imaging. She arrives in a posterior long-leg Ortho-Glass splint, she states not having much pain when the left leg is not moved. She denies any numbness/tingling/weak ness. She is not exactly clear on the events surrounding the injury but does not believe she hit her head or experienced any other injuries. DOS and components of TKA and TRACIE unknown Currently taking any blood thinners: Yes - eliquis for hx a-fib Patient History Past Surgical History: Procedure Laterality Date TOTAL HIP ARTHROPLASTY Left TOTAL KNEE ARTHROPLASTY Left Past Medical History: Diagnosis Date Anemia Atrial fibrillation ([facility]/HCC) Calcaneal spur of both feet Cataracts, bilateral CHF (congestive heart failure) ([facility]/HCC) Chronic pain Cognitive communication deficit Delusional disorder ([facility]/HCC) Dementia ([facility]) Depression Fall 11/13/2023 Femur fracture, left ([facility]/HCC) 11/13/2023 Generalized weakness GERD (gastroesophageal reflux disease) History of COVID-19 Hypertension Hypothyroid Insomnia OA (osteoarthritis) Obesity PVD (peripheral vascular disease) (CMS/HCC) Renal failure Sick sinus syndrome (CMS/HCC) Tinea unguium Pertinent review of systems negative except for what is documented in the HPI. Objective General: There were no vitals filed for this visit. General: Alert, mild distress 2/2 pain LLE: Long-leg splint in place Tender to palpation to thigh, left, mid, Calf non-tender to palpation, moderate swelling to left thigh, compartments soft and compressible, no lacerations, minor abrasions to the anterior knee, wiggles toes, good cap refill LABS Imaging X-ray of the left femur 11/12 from outside hospital demonstrate oblique fracture of the femoral shaft extending distally to the level of the TKA components. TRACIE and TKA components are not clearly loose or unstable No X-ray results found for the past [address] results found for the past 24 hours No MRI results found for the past 24 hours Assessment/Plan Celia Menon is a 78 y.o. female with zarina-prosthetic fracture of the left femur in the setting of left TRACIE and left TKA. Specific operative plan and timing pending CT, further discussion with patient and POA. Will make n.p.o. at midnight, get appropriate pre-op workup and clearances in anticipation that surgery may occur tomorrow, 11/14/2023. Plan: Admit to trauma service CT left femur ordered for further characterization of fracture Nonweightbearing left lower extremity in long-leg splint Ice, elevate extremity as able N.p.o. at midnight for possible OR Hold a.m. dose of Eliquis tomorrow 11/13 Remainder of care per primary Specific operative plan and timing to follow pending further evaluation and workup This plan was discussed in detail with Dr. Gonzalez. Maximiliano Olivera MD Orthopaedic Surgery, Resident Ortho Pager [phone] 11/13/23 10:47 PM May contact the on-call resident with any concerns via the Orthopaedic pager at any time. Normal [facility] CT FEMUR LEFT WO IV CONTRAST on 11-13-2023 CT FEMUR LEFT WO IV CONTRAST CT FEMUR LEFT WO IV CONTRAST 11/13/2023 10:55 PM CLINICAL INDICATIONS: Periprosthetic femur fracture TECHNIQUE: Multidetector CT axial slices were obtained without IV contrast. Multiplanar reformats, MIP, volume rendered 3-D images were generated on a separate workstation and reviewed to further define anatomy and possible pathology. All CT scans at this facility use dose modulation, iterative reconstruction, and/or weight based dosing when appropriate to reduce radiation dose to as low as reasonably achievable COMPARISON: 11/13/2023 outside radiographs. FINDINGS: Comminuted predominantly oblique fracture with distal component lateral angulation distal to the periprosthetic stem. Isoattenuating and hypoattenuating fluid within the medullary cavity and anterior leg compartment most suggestive of fatty marrow likely mixed with small quantity of blood. Presence of 2 ossific fragments adjacent to fracture site. Diffuse osteopenia and muscle atrophy. IMPRESSION: *Complete oblique fracture with severe osteopenia. *Significant quantity of blood within anterior leg compartment without definitive compression, recommend continued clinical monitoring. Approved by:Mehran Guzman11/13/2023 11:58 PM. I, Ellis Valencia,have reviewed the image(s) and agree with the findings in this report. Electronically signed: Ellis Valencia. 8 Invalid Interpretation Code [facility] HPon 11-13-2023 HP Subjective Chief Complaint: Trauma Fall Mechanism of Injury (History of what occurred prior to arrival): 78 y.o. year old female who was brought in via EMS. She had no C-collar or back board in place. Circumstances of injury: Patient presents as a direct admission from [facility]. Patient reportedly lives in a nursing facility and fell down resulting in left midshaft femur fracture. Patient has dementia and is unable to provide detailed history. History collected from medical chart review. No other signs of trauma. Patient denies any pain on evaluation. Patient denies shortness of breath, chest pain, nausea, vomiting. Of note patient is on Eliquis for A-fib. Review of Systems: Review of systems limited due to patient's advanced dementia. History The following information was obtained through chart review as the patient was unable to provide information due to emergency nature and/or medical condition Past Medical History: has a past medical history of Anemia, Atrial fibrillation (CMS/HCC), Calcaneal spur of both feet, Cataracts, bilateral, CHF (congestive heart failure) (CMS/HCC), Chronic pain, Cognitive communication deficit, Delusional disorder (CMS/HCC), Dementia (CMS/HCC), Depression, Fall (11/13/2023), Femur fracture, left (CMS/HCC) (11/13/2023), Generalized weakness, GERD (gastroesophageal reflux disease), History of COVID-19, Hypertension, Hypothyroid, Insomnia, OA (osteoarthritis), Obesity, PVD (peripheral vascular disease) (CMS/HCC), Renal failure, Sick sinus syndrome (CMS/HCC), and Tinea unguium. Past Surgical History: has a past surgical history that includes Total knee arthroplasty (Left) and Total hip arthroplasty (Left). Allergies: Patient has no known allergies. Home Medications: Medications Prior to Admission Medication Sig Dispense Refill Last Dose acetaminophen (Tylenol) 500 mg tablet Take 500 mg by mouth three times daily. acetaminophen (Tylenol) 500 mg tablet Take 500 mg by mouth every 6 (six) hours if needed for mild pain (1-3 pain score). ammonium lactate (Lac-Hydrin) 12 % lotion Apply topically if needed in the morning and at bedtime for dry skin (BLE). apixaban (Eliquis) 5 mg tablet Take 5 mg by mouth in the morning and at bedtime. aspirin 81 mg EC tablet Take 81 mg by mouth in the morning. atorvastatin (Lipitor) 40 mg tablet Take 40 mg by mouth at bedtime. baclofen (Lioresal) 20 mg tablet Take 20 mg by mouth at bedtime. CHOLECALCIFEROL, VITAMIN D3, ORAL Take 1,250 mcg by mouth 1 (one) time per week. THURSDAYS dyclonine (Sucrets Sore Throat) 2 mg lozenge Dissolve 1 lozenge in the mouth if needed. folic acid (Folvite) 1 mg tablet Take 1 mg by mouth in the morning. furosemide (Lasix) 20 mg tablet Take 2 tablets by mouth in the morning. guaifenesin/dextrometh orphan (CORICIDIN HBP CHEST YOKASTA-COUGH ORAL) Take 1 capsule by mouth if needed in the morning and at bedtime. hydrophilic cream (TRIAD WOUND DRESSING TOP) Apply 1 Application topically See administration instructions. Q SHIFT levothyroxine (Synthroid, Levoxyl) 100 mcg tablet Take 100 mcg by mouth before breakfast. lidocaine (Aspercreme, lidocaine,) adhesive patch,medicated patch Apply 1 patch topically in the morning. R hip loperamide (Imodium A-D) 2 mg tablet Take 2 mg by mouth if needed in the morning and at bedtime for diarrhea. melatonin (Melatin) 3 mg tablet Take 3 mg by mouth at bedtime. menthol (Biofreeze, menthol,) 10 % cream Apply 1 Application topically three times daily. R knee metoprolol succinate XL (Toprol-XL) 25 mg 24 hr tablet Take 0.5 tablets by mouth in the morning. Do not crush or chew. morphine CR (MS Contin) 15 mg 12 hr tablet Take 15 mg by mouth See administration instructions. Do not crush, chew, or split. EVERY 8 HRS nystatin (Mycostatin) 100,000 unit/gram powder Apply 1 Application topically. ondansetron (Zofran) 4 mg tablet Take 4 mg by mouth every 6 (six) hours if needed for nausea or vomiting. oxyCODONE (Roxicodone) 5 mg immediate release tablet Take 5 mg by mouth every 12 (twelve) hours if needed for severe pain (8-10 pain score). polyethylene glycol (Glycolax) oral powder Take 17 g by mouth if needed each day. POTASSIUM CITRATE ORAL Take 10 mEq by mouth in the morning, at noon, in the evening, and at bedtime. sertraline (Zoloft) 25 mg tablet Take 25 mg by mouth at bedtime. sertraline (Zoloft) 50 mg tablet Take 50 mg by mouth at bedtime. Social History: has no history on file for tobacco use, alcohol use, and drug use. Family History: pulled available information in [facility] from previous visits No family history on file. Objective Vitals: BP: (93-115)/(53-65) 115/65 (11/13 625) Temp: [36.2 ???C (97.2 ???F)-37.1 ???C (98.8 ???F)] 36.2 ???C (97.2 ???F) (11/13 625) Temp Source: -- Heart Rate: [100-110] 100 (11/13 625) Resp: [17-20] 17 (11/13 625) SpO2: [94 %-96 %] 94 % (11/13 625) Height: [167.6 cm (5' 6 )] 167.6 cm (5' 6 ) ( (more content not included)... Normal [facility] MAGNESIUMon 11-13-2023 Magnesium [Mass/Vol] 1.8 mg/dL Low 1.9-2.7 [facility] Comment on above: Performed By: #### L [id number] #### [facility] ([facility]) [address] [place] [address] PROTIME-INRon 11-13-2023 INR IN PPP BY COAGULATION ASSAY 1.79 High 0.90-1.10 [facility] Comment on above: Result Comment: ACCC P RECOMMENDED INR FOR WARFARIN THERAPY CONDITION INR PROPHYLAXIS OF VENOUS THROMBOSIS 2-3 (HIGH-RISK SURGERY) TREATMENT OF VENOUS THROMBOSIS 2-3 TREATMENT OF PULMONARY EMBOLISM 2-3 PREVENTION OF SYSTEMIC EMBOLISM: 2-3 ACUTE MYOCARDIAL INFARCTION TISSUE HEART VALVES VALVULAR HEART DISEASE ATRIAL FIBRILLATION RECURRENT SYSTEMIC EMBOLISM MECHANICAL HEART VALVE 2.5-3.5 FROM: ORAL ANTICOAGULANTS. MECHANISM OF ACTION, CLINICAL EFFECTIVENESS, AND OPTIMAL THERAPEUTIC RANGE. CHEST 1995;108:231S-246S. Performed By: #### L [id number] #### [facility] [address] [place] [address] PROTHROMBIN TIME (PT) IN PPP BY COAGULATION ASSAY 20.9 Seconds High 12.3-14.8 [facility] Comment on above: Performed By: #### L [id number] #### [facility] [address] [place] [address] TROPONIN Ion 11-13-2023 Troponin I.cardiac [Mass/Vol] 0.02 ng/mL Normal 0.00-0.04 [facility] Comment on above: Performed By: #### L [id number] #### [facility] ([facility]) [address] [place] [address] TYPE AND SCREENon 11-13-2023 AB SCREEN Negative Normal [facility] Comment on above: Performed By: #### L [id number] #### [facility] ([facility]) [address] [place] [address] ABO group Nom (Bld) O Normal [facility] Comment on above: Performed By: #### L [id number] #### [facility] (BEAKER) [address] [place] [address] RH TYPE IN BLOOD Positive Normal [facility] Comment on above: Performed By: #### L [id number] #### [facility] (BEAKER) [address] [place] [address] VIT D 25-[place] [facility] 2022 Vitamin D, 25-Hydroxy 35.9 ng/mL Normal 30.0-100.0 [facility] Comment on above: Result Comment: Jadyn min D deficiency has been defined by the [place] [employer] and an Endocrine Society practice guideline as a level of serum 25-OH vitamin D less than 20 ng/mL (1,2). The Endocrine Society went on to further define vitamin D insufficiency as a level between 21 and 29 ng/mL (2). 1. IOM ([place] [employer]). 2010. Dietary reference intakes for calcium and D. [place]: The National Academies Press. 2. Yamilex MF, Florecita NC, Mala-Irving OTTO, et al. Evaluation, treatment, and prevention of vitamin D deficiency: an Endocrine Society clinical practice guideline. JCEM. 2010; 96(7):1911-30. Performed By: #### V ITADLC #### [facility] [address] [address] [address] Ashwin Key CBC AUTO DIFFon 08-22-2022 BASO # 0.0 103/ul Normal 0.0-0.1 [facility] Comment on above: Performed By: #### C BC #### [facility] [address] [address] [address] Ashwin Key Basophils/100 WBC (Bld) 0.5 % Normal 0.2-2.0 [facility] Comment on above: Performed By: #### C BC #### [facility] [address] [address] [address] Ashwin eKy EO # 0.0 103/ul Normal 0.0-0.7 [facility] Comment on above: Performed By: #### C BC #### [facility] [address] [place] [address] Dr. Ashwin Key Eosinophils/100 WBC (Bld) 0.0 % Critically low 0.9-7.0 [facility] Comment on above: Performed By: #### C BC #### [facility] [address] [place] [address] Dr. Ashwin Key Erythrocyte distribution width (RBC) [Ratio] 14.7 % Normal 11.0-15.0 [facility] Comment on above: Performed By: #### C BC #### [facility] [address] [place] [address] Dr. Ashwin Key Hematocrit (Bld) [Volume fraction] 38.0 % Normal 36.0-48.0 [facility] Comment on above: Performed By: #### C BC #### [facility] [address] [place] [address] Dr. Ashwin Key Hemoglobin (Bld) [Mass/Vol] 11.5 g/dL Critically low 12.0-16.0 [facility] Comment on above: Performed By: #### C BC #### [facility] [address] [place] [address] Dr. Ashwin Key IG # 0.01 10e3/ul Normal 0.00-0.03 [facility] Comment on above: Performed By: #### C BC #### [facility] [address] [place] [address] Dr. Ashwin Key IG % 0.2 % Normal 0.0-0.5 [facility] Comment on above: Performed By: #### C BC #### [facility] [address] [place] [address] Dr. Ashwin Key LYMPH # 2.1 103/ul Normal 1.2-3.8 [facility] Comment on above: Performed By: #### C BC #### [facility] [address] [place] [address] Dr. Ashwin Key Lymphocytes/100 WBC (Bld) 48.4 % Normal 20.5-60.0 [facility] Comment on above: Performed By: #### C BC #### [facility] [address] [place] [address] Dr. Ashwin Key MANUAL DIFF REQ NO Normal [facility] Comment on above: Performed By: #### C BC #### [facility] [address] [place] [address] Dr. Ashwin Key MCH (RBC) [Entitic mass] 28.8 pg Normal 26.7-34.0 [facility] Comment on above: Performed By: #### C BC #### [facility] [address] [place] [address] Dr. Ashwin Key MCHC (RBC) [Mass/Vol] 30.3 g/dL Normal 29.9-35.2 [facility] Comment on above: Performed By: #### C BC #### [facility] [address] [place] [address] Dr. Ashwin Key MCV (RBC) [Entitic vol] 95.0 fL Normal 81.0-99.0 [facility] Comment on above: Performed By: #### C BC #### [facility] [address] [place] [address] Dr. Ashwin Key MONO # 0.4 103/ul Normal 0.3-0.8 [facility] Comment on above: Performed By: #### C BC #### [facility] [address] [place] [address] Dr. Ashwin Key Monocytes/100 WBC (Bld) 9.3 % Normal 1.7-12.0 [facility] Comment on above: Performed By: #### C BC #### [facility] [address] [place] [address] Dr. Ashwin Key NEUT # 1.8 103/ul Normal 1.4-6.5 [facility] Comment on above: Performed By: #### C BC #### [facility] [address] [place] [address] Dr. Ashwin Key Neutrophils/100 WBC (Bld) 41.6 % Critically low 43.0-75.0 [facility] Comment on above: Performed By: #### C BC #### [facility] [address] [address] [address] Ashwin Key Platelet mean volume (Bld) [Entitic vol] 10.3 fL Normal 9.5-13.5 [facility] Comment on above: Performed By: #### C BC #### [facility] [address] [address] [address] Ashwin Key PLT 166 103/ul Normal 150-450 [facility] Comment on above: Performed By: #### C BC #### [facility] [address] [address] [address] Ashwin Key RBC 4.00 106/ul Critically low 4.20-5.40 [facility] Comment on above: Performed By: #### C BC #### [facility] [address] [place] [address] Dr. Ashwin Key WBC 4.4 103/ul Normal 4.0-11.0 [facility] Comment on above: Performed By: #### C BC #### [facility] [address] [place] [address] Dr. Ashwin Key GLYCOHEMOGLOBIN A1Con 2022 ADA RECOMMENDATION SEE BELOW Normal [facility] Comment on above: Result Comment: ADA RECOMMENDED LIMIT 4.0 - 6.0 ADA THERAPEUTIC TARGET < 7.0 ACTION SUGGESTED > 7.0 Performed By: #### A 1C #### [facility] [address] [place] [address] Dr. Ashwin Key Glucose [Mass/Vol] 105 mg/dL Normal [facility] Comment on above: Performed By: #### A 1C #### [facility] [address] [place] [address] Dr. Ashwin Key HbA1c (Bld) [Mass fraction] 5.3 % Normal 4.5-6.2 [facility] Comment on above: Performed By: #### A 1C #### [facility] [address] [place] [address] Dr. Ashwin Key LIPID PROFILEon 08-22-2022 CHOL-HDL RATIO NORM SEE BELOW Normal [facility] Comment on above: Result Comment: 3.3 - 4.4 LOW RISK 4.4 - 7.1 AVERAGE RISK 7.1 - 11.0 MODERATE RISK >11.0 HIGH RISK Performed By: #### U GURVINDER BUTTICRO #### [facility] [address] [address] [address] Ashwin Key Cholesterol [Mass/Vol] 103 mg/dL Normal <=200 [facility] Comment on above: Performed By: #### U FILOMENA UMICRO #### [facility] [address] [address] [address] Ashwin Key Cholesterol in HDL [Mass/Vol] 40 mg/dL Normal 40-60 [facility] Comment on above: Performed By: #### U GURVINDER BUTTICRO #### [facility] [address] [place] [address] Dr. Ashwin Key Cholesterol in LDL [Mass/Vol] 51.8 mg/dL Normal [facility] Comment on above: Performed By: #### U GURVINDER BUTTICRO #### [facility] [address] [place] [address] Dr. Ashwin Key Cholesterol.total/Cho lesterol in HDL [Mass ratio] 2.6 {ratio} Normal [facility] Comment on above: Performed By: #### U FILOMENA UMICRO #### [facility] [address] [place] [address] Dr. Ashwin Key HDL NORMAL > or = 60 mg/dl - LO W CARDIOVASCULAR RISK <40 mg/dl - HIGH CARDIOVASCULAR RISK Normal [facility] Comment on above: Performed By: #### U ACSJAZMIN UMICRO #### [facility] [address] [place] [address] Dr. Ashwin Key LDL CALC NORMAL SEE BELOW Normal [facility] Comment on above: Result Comment: <100 mg/dl OPTIMAL 100 - 129 mg/dl NEAR OR ABOVE OPTIMAL 130 - 159 mg/dl BORDERLINE HIGH 160 - 189 mg/dl HIGH >190 mg/dl VERY HIGH Performed By: #### U FILOMENA UMICRO #### [facility] [address] [address] [address] Ashwin Key Triglyceride [Mass/Vol] 56 mg/dL Normal <=150 [facility] Comment on above: Performed By: #### U GURVINDER BUTTICRO #### [facility] [address] [address] [address] Ashwin Key VLDL CALC 11.2 mg/dL Normal [facility] Comment on above: Performed By: #### U GURVINDER BUTTICRO #### [facility] [address] [address] [address] Ashwin Key PROF 14(COMP METB)on 023 Albumin [Mass/Vol] 2.5 g/dL Critically low 3.4-5.0 [facility] Comment on above: Performed By: #### U JOEY BUTTRO #### [facility] [address] [place] [address] Dr. Ashwin Key Albumin/Globulin [Mass ratio] 0.7 {ratio} Normal [facility] Comment on above: Performed By: #### Lisseth BUTT UMICRO #### [facility] [address] [place] [address] Dr. Ashwin Key ALP [Catalytic activity/Vol] 110 U/L Normal 46-116 [facility] Comment on above: Performed By: #### U JOEY BUTTRO #### [facility] [address] [place] [address] Dr. Ashwin Key ALT [Catalytic activity/Vol] 16 U/L Normal 14-59 [facility] Comment on above: Performed By: #### U JOEY BUTTRO #### [facility] [address] [address] [address] Ashwin Key Anion gap [Moles/Vol] 9.8 mmol/L Normal [facility] Comment on above: Performed By: #### U FILOMENA UMICRO #### [facility] [address] [address] [address] Ashwin Key AST [Catalytic activity/Vol] 13 U/L Critically low 15-37 [facility] Comment on above: Performed By: #### U FILOMENA UMICRO #### [facility] [address] [address] [address] Ashwin Key Bilirubin [Mass/Vol] 0.4 mg/dL Normal 0.2-1.0 [facility] Comment on above: Performed By: #### U ACSIND, UMICRO #### [facility] [address] [address] [address] Ashwin Key Calcium [Mass/Vol] 8.5 mg/dL Normal 8.5-10.1 [facility] Comment on above: Performed By: #### U ACSIND, UMICRO #### [facility] [address] [address] [address] Ashwin Key Chloride [Moles/Vol] 108 mmol/L Critically high 98-107 [facility] Comment on above: Performed By: #### U ACSIND, UMICRO #### [facility] [address] [place] [address] Dr. Ashwin Key CO2 [Moles/Vol] 31.0 mmol/L Normal 21.0-32.0 [facility] Comment on above: Performed By: #### U ACSJAZMIN, UMICRO #### [facility] [address] [address] [address] Ashwin Key Creatinine [Mass/Vol] 0.91 mg/dL Normal 0.55-1.02 [facility] Comment on above: Performed By: #### U ACSJAZMIN, UMICRO #### [facility] [address] [address] [address] Ashwin Key EGFR-AF SWISS >60 Normal >=60 [facility] Comment on above: Performed By: #### U ACSIND, UMICRO #### [facility] [address] [address] [address] Ashwin Key EGFR-NON AF SWISS 60 mL/min/1.73m2 Normal >=60 [facility] Comment on above: Performed By: #### U ACSIND, UMICRO #### [facility] [address] [address] [address] Ashwin Key Globulin (S) [Mass/Vol] 3.5 g/dL Normal [facility] Comment on above: Performed By: #### U ACSJAZMIN UMICRO #### [facility] [address] [address] [address] Ashwin eKy Glucose [Mass/Vol] 99 mg/dL Normal 74-106 [facility] Comment on above: Performed By: #### U FILOMENA UMICRO #### [facility] [address] [address] [address] Ashwin Key Potassium [Moles/Vol] 3.8 mmol/L Normal 3.5-5.1 [facility] Comment on above: Performed By: #### U ACSJAZMIN UMICRO #### [facility] [address] [address] [address] Ashwin Key Protein [Mass/Vol] 6.0 g/dL Critically low 6.4-8.2 Th [facility] Comment on above: Performed By: #### U FILOMENA UMICRO #### [facility] [address] [address] [address] Ashwin Key Sodium [Moles/Vol] 145 mmol/L Normal 136-145 [facility] Comment on above: Performed By: #### Lisseth BUTT UMICRO #### [facility] [address] [place] [address] Dr. Ashwin Key Urea nitrogen [Mass/Vol] 24.0 mg/dL Critically high 7.0-18.0 [facility] Comment on above: Performed By: #### U FILOMENA UMICRO #### [facility] [address] [address] [address] Ashwin Key Urea nitrogen/Creatinine [Mass ratio] 26.4 mg/mg Normal [facility] Comment on above: Performed By: #### U FILOMENA UMICRO #### [facility] [address] [place] [address] Dr. Ashwin Key TSHon 08-22-2022 TSH 5.573 uIU/mL Critically high 0.358-3.740 [facility] Comment on above: Performed By: #### U FILOMENA UMICRO #### [facility] [address] [address] [address] Ashwin Key CBC AUTO DIFFon 08-10-2022 BASO # 0.0 103/ul Normal 0.0-0.1 [facility] Comment on above: Performed By: #### C BC #### [facility] [address] [place] [address] Dr. Ashwin Key Basophils/100 WBC (Bld) 0.7 % Normal 0.2-2.0 [facility] Comment on above: Performed By: #### C BC #### [facility] [address] [place] [address] Dr. Ashwin Key EO # 0.0 103/ul Normal 0.0-0.7 [facility] Comment on above: Performed By: #### C BC #### [facility] [address] [place] [address] Dr. Ashwin Key Eosinophils/100 WBC (Bld) 0.0 % Critically low 0.9-7.0 [facility] Comment on above: Performed By: #### C BC #### [facility] [address] [place] [address] Dr. Ashwin Key Erythrocyte distribution width (RBC) [Ratio] 15.1 % Critically high 11.0-15.0 [facility] Comment on above: Performed By: #### C BC #### [facility] [address] [place] [address] Dr. Ashwin Key Hematocrit (Bld) [Volume fraction] 38.0 % Normal 36.0-48.0 [facility] Comment on above: Performed By: #### C BC #### [facility] [address] [place] [address] Dr. Ashwin Key Hemoglobin (Bld) [Mass/Vol] 11.4 g/dL Critically low 12.0-16.0 [facility] Comment on above: Performed By: #### C BC #### [facility] [address] [place] [address] Dr. Ashwin Key IG # 0.02 10e3/ul Normal 0.00-0.03 [facility] Comment on above: Performed By: #### C BC #### [facility] [address] [place] [address] Dr. Ashwin Key IG % 0.5 % Normal 0.0-0.5 [facility] Comment on above: Performed By: #### C BC #### [facility] [address] [place] [address] Dr. Ashwin Key LYMPH # 2.1 103/ul Normal 1.2-3.8 [facility] Comment on above: Performed By: #### C BC #### [facility] [address] [place] [address] Dr. Ashwin Key Lymphocytes/100 WBC (Bld) 48.4 % Normal 20.5-60.0 [facility] Comment on above: Performed By: #### C BC #### [facility] [address] [place] [address] Dr. Ashwin Key MANUAL DIFF REQ NO Normal [facility] Comment on above: Performed By: #### C BC #### [facility] [address] [place] [address] Dr. Ashwin Key MCH (RBC) [Entitic mass] 28.8 pg Normal 26.7-34.0 [facility] Comment on above: Performed By: #### C BC #### [facility] [address] [place] [address] Dr. Ashwin Key MCHC (RBC) [Mass/Vol] 30.0 g/dL Normal 29.9-35.2 [facility] Comment on above: Performed By: #### C BC #### [facility] [address] [place] [address] Dr. Ashwin Key MCV (RBC) [Entitic vol] 96.0 fL Normal 81.0-99.0 [facility] Comment on above: Performed By: #### C BC #### [facility] [address] [place] [address] Dr. Ashwin Key MONO # 0.3 103/ul Normal 0.3-0.8 [facility] Comment on above: Performed By: #### C BC #### [facility] [address] [place] [address] Dr. Ashwin Key Monocytes/100 WBC (Bld) 7.7 % Normal 1.7-12.0 [facility] Comment on above: Performed By: #### C BC #### [facility] [address] [place] [address] Dr. Ashwin Key NEUT # 1.8 103/ul Normal 1.4-6.5 [facility] Comment on above: Performed By: #### C BC #### [facility] [address] [place] [address] Dr. Ashwin Key Neutrophils/100 WBC (Bld) 42.7 % Critically low 43.0-75.0 [facility] Comment on above: Performed By: #### C BC #### [facility] [address] [place] [address] Dr. Ashwin Key Platelet mean volume (Bld) [Entitic vol] 10.1 fL Normal 9.5-13.5 [facility] Comment on above: Performed By: #### C BC #### [facility] [address] [place] [address] Dr. Ashwin Key PLT 156 103/ul Normal 150-450 [facility] Comment on above: Performed By: #### C BC #### [facility] [address] [place] [address] Dr. Ashwin Key RBC 3.96 106/ul Critically low 4.20-5.40 [facility] Comment on above: Performed By: #### C BC #### [facility] [address] [place] [address] Dr. Ashwin Key WBC 4.3 103/ul Normal 4.0-11.0 [facility] Comment on above: Performed By: #### C BC #### [facility] [address] [place] [address] Dr. Ashwin Key PROF CHEM 8 (BAS METB)on Anion gap [Moles/Vol] 13.3 mmol/L Normal [facility] Comment on above: Performed By: #### U ACSIND, UMICRO #### [facility] [address] [address] [address] Ashwin Key Calcium [Mass/Vol] 8.3 mg/dL Critically low 8.5-10.1 Th [facility] Comment on above: Performed By: #### U ACSIND, UMICRO #### [facility] [address] [address] [address] Ashwin Key Chloride [Moles/Vol] 111 mmol/L Critically high 98-107 [facility] Comment on above: Performed By: #### U ACSIND, UMICRO #### [facility] [address] [address] [address] Ashwin Key CO2 [Moles/Vol] 29.9 mmol/L Normal 21.0-32.0 [facility] Comment on above: Performed By: #### U ACSIND, UMICRO #### [facility] [address] [address] [address] Ashwin Key Creatinine [Mass/Vol] 0.92 mg/dL Normal 0.55-1.02 [facility] Comment on above: Performed By: #### U ACSIND, UMICRO #### [facility] [address] [address] [address] Ashwin Key EGFR-AF SWISS >60 Normal >=60 [facility] Comment on above: Performed By: #### U ACSIND, UMICRO #### [facility] [address] [address] [address] Ashwin Key EGFR-NON AF SWISS 59 mL/min/1.73m2 Critically low >=60 [facility] Comment on above: Performed By: #### U ACSIND, UMICRO #### [facility] [address] [address] [address] Ashwin Key Glucose [Mass/Vol] 84 mg/dL Normal 74-106 [facility] Comment on above: Performed By: #### U ACSIND, UMICRO #### [facility] [address] [address] [address] Ashwin Key Potassium [Moles/Vol] 4.2 mmol/L Normal 3.5-5.1 [facility] Comment on above: Performed By: #### U FILOMENA UMICRO #### [facility] [address] [address] [address] Ashwin Key Sodium [Moles/Vol] 150 mmol/L Critically high 136-145 [facility] Comment on above: Performed By: #### U FILOMENA UMICRO #### [facility] [address] [place] [address] Dr. Ashwin Key Urea nitrogen [Mass/Vol] 25.0 mg/dL Critically high 7.0-18.0 [facility] Comment on above: Performed By: #### U FILOMENA UMICRO #### [facility] [address] [place] [address] Dr. Ashwin Key Urea nitrogen/Creatinine [Mass ratio] 27.2 mg/mg Normal [facility] Comment on above: Performed By: #### U FILOMENA UMICRO #### [facility] [address] [place] [address] Dr. Ashwin Key TSHon 08-10-2022 TSH 3.430 uIU/mL Normal 0.358-3.740 [facility] Comment on above: Performed By: #### U FILOMENA UMICRO #### [facility] [address] [place] [address] Dr. Ashwin Key CULTURE URINEon 08-09-2022 CULTURE URINE Culture Observations : ANSON TO FOLLOW. Normal [facility] Comment on above: Performed By: #### U FILOMENA UMICRO #### [facility] [address] [place] [address] Dr. Ashwin Key UA (CLEAN/CATCH) SENIOR WIND TURBINE TECHNICIAN/MICRO I F IND.on 08-09-2022 Bilirubin Ql (U) Negative Normal NEGATIVE [facility] Comment on above: Performed By: #### U GURVINDER BUTTICRO #### [facility] [address] [place] [address] Dr. Ashwin Key Clarity (U) CLEAR Normal CLEAR [facility] Comment on above: Performed By: #### U FILOMENA UMICRO #### [facility] [address] [address] [address] Ashwin Key Color (U) LT. YELLOW Normal YELLOW [facility] Comment on above: Performed By: #### U ACSIND, UMICRO #### [facility] [address] [address] [address] Ashwin Key Glucose Ql (U) Negative Normal NEGATIVE [facility] Comment on above: Performed By: #### U ACSIND, UMICRO #### [facility] [address] [address] [address] Ashwin Key Hemoglobin Ql (U) TRACE-INTACT Abnormal NEGATIVE [facility] Comment on above: Performed By: #### U ACSIND, UMICRO #### [facility] [address] [place] [address] Dr. Ashwin Key Ketones Ql (U) Negative Normal NEGATIVE [facility] Comment on above: Performed By: #### U ACSIND, UMICRO #### [facility] [address] [place] [address] Dr. Ashwin Key LEUKOCYTES TRACE Abnormal NEGATIVE [facility] Comment on above: Performed By: #### U ACSIND, UMICRO #### [facility] [address] [place] [address] Dr. Ashwin Key Nitrite Ql (U) Negative Normal NEGATIVE [facility] Comment on above: Performed By: #### U ACSIND, UMICRO #### [facility] [address] [place] [address] Dr. Ashwin Key pH (U) 5.5 [pH] Normal 5-9 [facility] Comment on above: Performed By: #### U ACSIND, UMICRO #### [facility] [address] [place] [address] Dr. Ashwin Key SPEC GRAVITY <=1.005 Abnormal 1.005-<=1.02 5 [facility] Comment on above: Performed By: #### U ACSIND, UMICRO #### [facility] [address] [place] [address] Dr. Ashwin Key UA PROTEIN Negative Normal NEGATIVE/ TRACE [facility] Comment on above: Performed By: #### U ACSIND, UMICRO #### [facility] [address] [address] [address] Ashwin Key UR MICRO IND INDICATED Normal [facility] Comment on above: Performed By: #### U ACSIND, UMICRO #### [facility] [address] [address] [address] Ashwin Key Urobilinogen Qn (U) 0.2 {Mercedes'U}/dL Normal 0.2 - 1. 0 [facility] Comment on above: Performed By: #### U ACSIND, UMICRO #### [facility] [address] [address] [address] Ashwin Key URINE MICROSCOPIC ONLYon AMORPHOUS CRYSTALS FEW Normal [facility] Comment on above: Performed By: #### U ACSIND, UMICRO #### [facility] [address] [place] [address] Dr. Ashwin Key BACTERIA MODERATE Abnormal NONE SEEN [facility] Comment on above: Performed By: #### U ACSIND, UMICRO #### [facility] [address] [place] [address] Dr. Ashwin Key Bacteria identified Cx Nom (U) INDICATED Normal [facility] Comment on above: Performed By: #### U ACSIND, UMICRO #### [facility] [address] [place] [address] Dr. Ashwin Key CAST NONE SEEN Normal NONE SEEN [facility] Comment on above: Performed By: #### U ACSIND, UMICRO #### [facility] [address] [place] [address] Dr. Ashwin Key Crystals LM Nom (Urine sed) SEEN Abnormal NONE SEEN [facility] Comment on above: Performed By: #### U ACSIND, UMICRO #### [facility] [address] [address] [address] Ashwin Key Epithelial cells LM Ql (Urine sed) MANY Abnormal NONE SEEN /RARE [facility] Comment on above: Performed By: #### U ACSIND, UMICRO #### [facility] [address] [place] [address] Dr. Ashwin Key MUCOUS NONE SEEN Normal NONE SEEN [facility] Comment on above: Performed By: #### U JUAN F BUTT #### [facility] [address] [place] [address] Dr. Ashwin Key RBC 0-2 Normal 0-2 [facility] Comment on above: Performed By: #### U JOEY BUTTRO #### [facility] [address] [place] [address] Dr. Ashwin Key WBC 2-5 Abnormal NONE SEEN [facility] Comment on above: Performed By: #### U FILOMENA STACYRO #### [facility] [address] [place] [address] Dr. Ashwin Key CBC AUTO DIFFon 07-11-2022 BASO # 0.0 103/ul Normal 0.0-0.1 [facility] Comment on above: Performed By: #### C BC #### [facility] [address] [place] [address] Dr. Ashwin Key Basophils/100 WBC (Bld) 0.5 % Normal 0.2-2.0 [facility] Comment on above: Performed By: #### C BC #### [facility] [address] [place] [address] Dr. Ashwin Key EO # 0.0 103/ul Normal 0.0-0.7 [facility] Comment on above: Performed By: #### C BC #### [facility] [address] [place] [address] Dr. Ashwin Key Eosinophils/100 WBC (Bld) 0.0 % Critically low 0.9-7.0 [facility] Comment on above: Performed By: #### C BC #### [facility] [address] [place] [address] Dr. Ashwin Key Erythrocyte distribution width (RBC) [Ratio] 14.5 % Normal 11.0-15.0 [facility] Comment on above: Performed By: #### C BC #### [facility] [address] [place] [address] Dr. Ashwin Key Hematocrit (Bld) [Volume fraction] 42.5 % Normal 36.0-48.0 [facility] Comment on above: Performed By: #### C BC #### [facility] [address] [place] [address] Dr. Ashwin Key Hemoglobin (Bld) [Mass/Vol] 13.1 g/dL Normal 12.0-16.0 [facility] Comment on above: Performed By: #### C BC #### [facility] [address] [place] [address] Dr. Ashwin Key IG # 0.02 10e3/ul Normal 0.00-0.03 [facility] Comment on above: Performed By: #### C BC #### [facility] [address] [place] [address] Dr. Ashwin Key IG % 0.5 % Normal 0.0-0.5 [facility] Comment on above: Performed By: #### C BC #### [facility] [address] [place] [address] Dr. Ashwin Key LYMPH # 2.1 103/ul Normal 1.2-3.8 [facility] Comment on above: Performed By: #### C BC #### [facility] [address] [place] [address] Dr. Ashwin Key Lymphocytes/100 WBC (Bld) 48.2 % Normal 20.5-60.0 [facility] Comment on above: Performed By: #### C BC #### [facility] [address] [place] [address] Dr. Ashwin Key MANUAL DIFF REQ NO Normal [facility] Comment on above: Performed By: #### C BC #### [facility] [address] [place] [address] Dr. Ashwin Key MCH (RBC) [Entitic mass] 28.4 pg Normal 26.7-34.0 [facility] Comment on above: Performed By: #### C BC #### [facility] [address] [place] [address] Dr. Ashwin eKy MCHC (RBC) [Mass/Vol] 30.8 g/dL Normal 29.9-35.2 [facility] Comment on above: Performed By: #### C BC #### [facility] [address] [address] [address] Ashwin Key MCV (RBC) [Entitic vol] 92.2 fL Normal 81.0-99.0 [facility] Comment on above: Performed By: #### C BC #### [facility] [address] [address] [address] Ashwin Key MONO # 0.4 103/ul Normal 0.3-0.8 [facility] Comment on above: Performed By: #### C BC #### [facility] [address] [place] [address] Dr. Ashwin Key Monocytes/100 WBC (Bld) 8.7 % Normal 1.7-12.0 [facility] Comment on above: Performed By: #### C BC ####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 complete therapy session as appropriate. Check No Charge Time attempted: 1321 Tatianna Nuno PT, [facility] 11-18-2023 Note Subjective Patient seen on 6AB this morning. She is laying flat and complaining of severe generalized pain at this time. Nursing staff notified pain meds are able to be given. Patient states she is tolerating a diet and is asking to drink water. Objective BP: (82-89)/(44-52) 89/52 (11/18 1003) Temp: [36.3 ???C (97.3 ???F)-37 ???C (98.6 ???F)] 37 ???C (98.6 ???F) (11/18 1003) Temp Source: Axillary (11/18 1003) Heart Rate: [97-107] 107 (11/18 1003) Resp: [18-22] 18 (11/18 1003) SpO2: [80 %] 80 % (11/18 207) Height: -- Weight: [135 kg (297 lb 9.9 oz)-136 kg (298 lb 15.1 oz)] 135 kg (297 lb 9.9 oz) (11/17 0508) [place] Coma Scale Score: 14 No intake or output data in the 24 hours ending 11/18/23 1113 No results found for this or any previous visit (from the past 12 hour(s)). No Chest X-ray results found for the past [address] head results found for the past 24 hours Physical Exam: General: Awake, alert, moderate distress due to pain. Head: Normocephalic and atraumatic. Mid Face Stable. Nares Patent Bilaterally, No Epistaxis. Mouth Clear Of Foreign Bodies, No Lacerations Or Abrasions, Teeth Intact. No fluid or blood draining from the ear, nose or mouth. Eyes: PERRL, EOMI. Neurologic: Alert And Oriented to self. Moving Extremities and Following Commands. CN 2-12 Grossly Intact, GCS 14. Neck: Cervical Spine Is Nontender To Palpation Without Step-Offs, Crepitus, Or Deformity. No Abrasions, Contusions, Or Ecchymosis Noted. Lungs: Clear to Auscultation Bilaterally With Normal Work Of Breathing on 6L Nasal Cannula. Chest Wall: Chest Rise Symmetrical. No Crepitus, Deformities, Lacerations, Or Abrasions. Cardiovascular: Regular rate and rhythm. Palpable femoral/radial/DP pulses bilaterally. Abdomen: Soft, Nontender, and Nondistended. Rectal tube in place, draining dark stool. : Wing in place draining clear yellow urine. Extremities: Left lower extremity dressings clean dry and intact. Skin: Warm And Dry. Normal For Ethnicity. Venous stasis chronic skin changes and scaling to RLE. Psych: Cooperative. Assessment/Plan Assessment The patient is a 78 y.o. female who presented as a trauma following Fall and sustained the following injuries. Catalogue of Injuries/Incidental findings/medical issues: Fall Left femur fracture Hypomagnesemia Hypocalcemia Past Medical History: Dementia Peripheral vascular disease CHF Atrial fibrillation Hypertension Plan Neuro: Multimodal pain control. CV: Every 4 hours vital signs. Respiratory: Maintain oxygen saturation greater than 92%. Encourage incentive spirometry. FEN/GI: Regular diet. On Senna and Colace. MSK: S/p left femur fixation. Endo: Blood glucose checks every 6 hours, sliding scale insulin, hypoglycemia treatment orders. Lines: PIV, wing, rectal tube. Prophylaxis: SCDs. Other: DNRCC Dispo: Planning to return to SNF at discharge. [facility] 11-18-2023 Note Date: 11/18/2023 Surgery: 11/14/2023 - ORIF, FRACTURE, FEMUR (L), CLOSED REDUCTION, FRACTURE, FEMUR (L) SUBJECTIVE/24h events: This morning upon evaluation, patient is alert and responsive. Patient does not endorse any significant pain. Denies any numbness/tingling or fever/chills. OBJECTIVE BP (!) 85/44 Pulse 97 Temp 36.3 ???C (97.3 ???F) Resp 22 Ht 1.676 m (5' 6 ) Wt 135 kg (297 lb 9.9 oz) SpO2 (!) 80% BMI 48.04 kg/m??? General: A/O x3, resting comfortably in bed, cooperative MSK: LLE: Calf non-tender to palpation, compartments soft and compressible, no warmth, no erythema, motor intact DF/PF/EHL, wiggles toes, sensation intact t/sp/dp/s/s, good cap refill, 2+ DP/PT, and mild/moderate strikethrough about the distal aspect of the incision remainder of the dressings are C/D/I Labs: Lab Results Component Value Date WBC 34.01 (H) 11/15/2023 HGB 7.3 (L) 11/15/2023 HCT 21.9 (L) 11/15/2023 MCV 85.5 11/15/2023 PLT 115 (L) 11/15/2023 Lab Results Component Value Date CALCIUM 7.4 (L) 11/15/2023 NA 152 (H) 11/15/2023 K 3.4 (L) 11/15/2023 CO2 22 11/15/2023 CL 108 (H) 11/15/2023 BUN 30 (H) 11/15/2023 CREATININE 1.33 (H) 11/15/2023 Lab Results Component Value Date INR 11.87 (HH) 11/15/2023 Results from last 7 days Lab Units 11/15/23 1558 BLOOD CULTURE No growth at 2 days Imaging: X-ray left femur 11/13/2023: Shows a left spiral, comminuted periprosthetic midshaft femur fracture with distal extension to the TKA implant, severe osteopenia ASSESSMENT: Celia Menon is a 78 y.o. female with a left periprosthetic femur fracture after a fall on 11/13/2023 now s/p ORIF left femur with lateral femoral locking plate and cerclage cable on 11/14/2023. PLAN -Patient is no longer in the SICU - Please continue to hold Eliquis - Diet: Regular - Weightbearing activity status: TTWB LLE - PT/OT: Please evaluate and treat following operative stabilization of femur fracture - Antibiotics: Received postoperative Ancef for 48 hours -Ice and elevation of extremity - Dressings: Reinforce dressings as necessary. Last changed on 11/16 - Vitamin D and calcium supplementation -From orthopedic standpoint patient should require 6 weeks of DVT PPx from date of surgery, orthopedics recommends Lovenox, however continue to hold anticoagulants given patient's critical status - Patient will need follow-up with Dr. Smith in 10 to 14 days from date of surgery for wound check and suture removal - Remainder of care per primary team Lawanda Nunn MD Orthopaedic Surgery, Resident Ortho Pager [phone] 11/18/23 7:40 AM May contact the on-call resident with any concerns via the Orthopaedic pager at any time. I am available via G5 6a-6p. May contact the on-call resident with any concerns via the Orthopaedic pager at any time. [facility] 11-17-2023 Note Occupational Therapy OT Check no charge Name: Celia Menon Date of : 1945 Today's Date: 11/17/23 Pt is unable to be seen for therapy at this time secondary to Medically unstable, RN hold. Will check back and complete therapy session as appropriate. Check No Charge Time attempted: 1516 Ivan OTR/L, MOT [facility] 11-17-2023 Note Physical Therapy Name: Celia Menon Date of : 1945 Today's Date: 11/17/23 Pt is unable to be seen for therapy at this time secondary to Medically unstable. Will check back and complete therapy session as appropriate. Check No Charge Time attempted: 1020 Tatianna Nuno PT, [facility] 11-17-2023 Note Sent updates to [facility]. Unclear at this point if pt will need pre-cert to return. UPDATE 10:40AM- Advised by [place] pt is a bed hold and no pre-cert is necessary. [facility] 07-05-2024 Note Subjective Pt transferred from SICU yesterday evening following withdrawal of all care and decision to change code status to DNRcc. Pt unable to fully provide details surrounding ROS questions however she did endorse some abdominal pain. Pt otherwise without acute complaints. No acute events overnight. Objective BP: (80-104)/(41-79) 92/65 (11/16 349) Temp: [36.3 ???C (97.3 ???F)-36.6 ???C (97.9 ???F)] 36.5 ???C (97.7 ???F) (11/16 349) Temp Source: Oral (11/16 349) Heart Rate: [97-255] 97 (11/16 349) Resp: [16-18] 16 (11/16 349) SpO2: [92 %-93 %] 92 % (11/16 349) Height: -- Weight: [137 kg (300 lb 14.9 oz)] 137 kg (300 lb 14.9 oz) (11/16 438) [place] Coma Scale Score: 14 No intake or output data in the 24 hours ending 11/17/23 0730 No results found for this or any previous visit (from the past 12 hour(s)). No Chest X-ray results found for the past [address] head results found for the past 24 hours Physical Exam: General: Sleeping but arousable, no acute distress Head: Normocephalic and Atraumatic. Mid Face Stable. Tympanic Membranes Intact. Nares Patent Bilaterally, No Epistaxis. Mouth Clear Of Foreign Bodies, No Lacerations Or Abrasions, Teeth Intact. No fluid or blood draining from the ear, nose or mouth. Eyes: PERRL, EOMI Neurologic: Alert And Oriented to self. Moving Extremities and Following Commands. CN 2-12 Grossly Intact, GCS 14 Neck: Cervical Spine Is Nontender To Palpation Without Step-Offs, Crepitus, Or Deformity. No Abrasions, Contusions, Or Ecchymosis Noted Back: Thoracic and Lumbar Spine Are Nontender To Palpation Without Step-Offs, Crepitus, Or Deformity. No Abrasions, Contusions, Or Ecchymosis Noted Lungs: Clear to Auscultation Bilaterally With Normal Work Of Breathing on 6L Nasal Cannula Chest Wall: Chest Rise Symmetrical. No Crepitus, Deformities, Lacerations, Or Abrasions Cardiovascular: regular rate and rhythm. Palpable femoral/radial/DP pulses bilaterally Abdomen: Soft, Nontender, and Nondistended With Normoactive Bowel Sounds. No Guarding. No bruising or abrasions noted. Rectal tube in place, draining dark stool. : wing in place draining clear yellow urine. Extremities: Left lower extremity with CDI dressings. No surrounding drainage, warmth, edema, erythema or ecchymosis. Sensation and motor intact. Skin: Warm And Dry. Normal For Ethnicity. Venous stasis chronic skin changes and scaling to RLE. Psych: Friendly, Cooperative Assessment/Plan Assessment The patient is a 78 y.o. year old female who presented as a trauma following Fall and sustained the following injuries. Catalogue of Injuries/Incidental findings/medical issues: Fall Left femur fracture Hypomagnesemia Hypocalcemia Past Medical History: Dementia Peripheral vascular disease CHF Atrial fibrillation Hypertension Plan Neuro: Multimodal pain control. Mild pain (1-3) Acetaminophen 1000 mg scheduled every 8 hours. Moderate pain (4-7) 2.5 mg oxycodone every 3 hours as needed. Severe pain (8-10) 5 mg oxycodone every 3 hours as needed. CV: Every 4 hours vital signs Respiratory: Maintain oxygen saturation greater than 92%. Encourage incentive spirometry. FEN/GI: Regular diet. On Senna and Colace. Will consider abd xr if pain continues this afternoon. Pain this morning was mild and patient not tender to palpation. MSK: S/p left femur fixation. Heme/ID: Check laboratory testing daily discontinued due to code status. Endo: Blood glucose checks every 6 hours, Sliding scale insulin, Hypoglycemia treatment orders. Lines: PIV, Wing, rectal tube. Prophylaxis: SCDs Other: DNRcc Dispo: Planning SNF at discharge. [facility] 11-17-2023 Note Date: 11/16/2023 Surgery: 11/14/2023 - ORIF, FRACTURE, FEMUR (L), CLOSED REDUCTION, FRACTURE, FEMUR (L) SUBJECTIVE/24h events: This morning upon evaluation, patient is alert and responsive. Patient does not endorse any significant pain. Denies any numbness/tingling or fever/chills. OBJECTIVE BP (!) 75/38 Pulse 98 Temp 36.5 ???C (97.7 ???F) Resp 20 Ht 1.676 m (5' 6 ) Wt 124 kg (274 lb 4 oz) SpO2 93% BMI 44.27 kg/m??? General: A/O x3, resting comfortably in bed, cooperative MSK: LLE: Calf non-tender to palpation, compartments soft and compressible, no warmth, no erythema, motor intact DF/PF/EHL, wiggles toes, sensation intact t/sp/dp/s/s, good cap refill, 2+ DP/PT, and mild/moderate strikethrough about the distal aspect of the incision remainder of the dressings are C/D/I Labs: Lab Results Component Value Date WBC 34.01 (H) 11/15/2023 HGB 7.3 (L) 11/15/2023 HCT 21.9 (L) 11/15/2023 MCV 85.5 11/15/2023 PLT 115 (L) 11/15/2023 Lab Results Component Value Date CALCIUM 7.4 (L) 11/15/2023 NA 152 (H) 11/15/2023 K 3.4 (L) 11/15/2023 CO2 22 11/15/2023 CL 108 (H) 11/15/2023 BUN 30 (H) 11/15/2023 CREATININE 1.33 (H) 11/15/2023 Lab Results Component Value Date INR 11.87 (HH) 11/15/2023 Imaging: X-ray left femur 11/13/2023: Shows a left spiral, comminuted periprosthetic midshaft femur fracture with distal extension to the TKA implant, severe osteopenia ASSESSMENT: Celia Menon is a 78 y.o. female with a left periprosthetic femur fracture after a fall on 11/13/2023 now s/p ORIF left femur with lateral femoral locking plate and cerclage cable on 11/14/2023. PLAN -Patient is no longer in the SICU - Please continue to hold Eliquis - Diet: Regular - Weightbearing activity status: TTWB LLE - PT/OT: Please evaluate and treat following operative stabilization of femur fracture - Antibiotics: Postoperative Ancef for 48 hours -Ice and elevation of extremity - Dressings: Reinforce dressings as necessary. Last changed on 11/16 - Vitamin D and calcium supplementation -From orthopedic standpoint patient should require 6 weeks of DVT PPx from date of surgery, orthopedics recommends Lovenox, however continue to hold anticoagulants given patient's critical status - Patient will need follow-up with Dr. Smith in 10 to 14 days from date of surgery for wound check and suture removal - Remainder of care per primary team Waldemar Robledo MD Orthopaedic Surgery, Resident Ortho Pager [phone] 11/16/23 8:52 AM May contact the on-call resident with any concerns via the Orthopaedic pager at any time. I am available via G5 6a-6p. May contact the on-call resident with any concerns via the Orthopaedic pager at any time. [facility] 11-16-2023 Note Problem: Communicati on Thought Process Goal: Participate in active listening and/or observation of patient's non-verbal communication Outcome: Progressing Problem: Emotional Distress Goal: Patient will exhibit decreased symptoms of distress Outcome: Progressing Goal: Verbalize understanding of the anxiety management plan Outcome: Progressing Problem: Psychosocial Status Goal: Communicate their psychosocial needs to the hospice team Outcome: Progressing Problem: Respiratory Status Goal: Patient will report or be observed by nurse/caregiver to have decreased or relieved dyspnea Outcome: Progressing Problem: Pain/Physical Discomfort Goal: Patient's pain/physical discomfort will be reduced to the level of patient's stated goal Outcome: Progressing Goal: Patient/Family/Caregiver will verbalize understanding of the pain management plan Outcome: Progressing Problem: Sleep Goal: Patient will demonstrate adequate sleep/rest pattern Outcome: Progressing [facility] 11-16-2023 Note ------ Attestation signed by Aric Smith MD at 11/16/2023 11:42 AM I agree with the above documentation. ------ Date: 11/16/2023 Surgery: 11/14/2023 - ORIF, FRACTURE, FEMUR (L), CLOSED REDUCTION, FRACTURE, FEMUR (L) SUBJECTIVE/24h events: This morning upon evaluation, patient is alert and responsive. Patient does not endorse any significant pain. Denies any numbness/tingling or fever/chills. OBJECTIVE BP (!) 75/38 Pulse 98 Temp 36.5 ???C (97.7 ???F) Resp 20 Ht 1.676 m (5' 6 ) Wt 124 kg (274 lb 4 oz) SpO2 93% BMI 44.27 kg/m??? General: A/O x3, resting comfortably in bed, cooperative MSK: LLE: Calf non-tender to palpation, compartments soft and compressible, no warmth, no erythema, motor intact DF/PF/EHL, wiggles toes, sensation intact t/sp/dp/s/s, good cap refill, 2+ DP/PT, and mild/moderate strikethrough about the proximal aspect of the incision remainder of the dressings are C/D/I Labs: Lab Results Component Value Date WBC 34.01 (H) 11/15/2023 HGB 7.3 (L) 11/15/2023 HCT 21.9 (L) 11/15/2023 MCV 85.5 11/15/2023 PLT 115 (L) 11/15/2023 Lab Results Component Value Date CALCIUM 7.4 (L) 11/15/2023 NA 152 (H) 11/15/2023 K 3.4 (L) 11/15/2023 CO2 22 11/15/2023 CL 108 (H) 11/15/2023 BUN 30 (H) 11/15/2023 CREATININE 1.33 (H) 11/15/2023 Lab Results Component Value Date INR 11.87 (HH) 11/15/2023 Imaging: X-ray left femur 11/13/2023: Shows a left spiral, comminuted periprosthetic midshaft femur fracture with distal extension to the TKA implant, severe osteopenia ASSESSMENT: Celia Menon is a 78 y.o. female with a left periprosthetic femur fracture after a fall on 11/13/2023 now s/p ORIF left femur with lateral femoral locking plate and cerclage cable on 11/14/2023. PLAN -Patient remains in the SICU, primary care per SICU; lactate 16.9, INR 12.9 and WBC 36 - Please continue to hold Eliquis - Diet: Regular - Weightbearing activity status: TTWB LLE - PT/OT: Please evaluate and treat following operative stabilization of femur fracture - Antibiotics: Postoperative Ancef -Ice and elevation of extremity - Dressings: Reinforce dressings as necessary - Vitamin D and calcium supplementation -From orthopedic standpoint patient should require 6 weeks of DVT PPx from date of surgery, orthopedics recommends Lovenox, however continue to hold anticoagulants given patient's critical status - Patient will need follow-up with Dr. Smith in 10 to 14 days from date of surgery for wound check and suture removal - Remainder of care per primary team Waldemar Robledo MD Orthopaedic Surgery, Resident Ortho Pager [phone] 11/16/23 8:52 AM May contact the on-call resident with any concerns via the Orthopaedic pager at any time. I am available via G5 6a-6p. May contact the on-call resident with any concerns via the Orthopaedic pager at any time. [facility] 11-15-2023 Note ------ Attestation signed by Aric Smith MD at 11/15/2023 6:34 PM Patient seen and examined and I agree with above. Will need close SICU monitoring given multiple medical comorbidities and current status. Will monitor H&H and ABGs. ------ Date: 11/15/2023 Surgery: 11/14/2023 - ORIF, FRACTURE, FEMUR (L), CLOSED REDUCTION, FRACTURE, FEMUR (L) SUBJECTIVE/24h events: Overnight, patient was transferred to the SICU due to persistent hypotension following ORIF of her left periprosthetic femur fracture. This morning upon evaluation, patient is alert and responsive. Patient does not endorse any significant pain. Denies any numbness/tingling or fever/chills. During evaluation at bedside SICU team was preparing to place a central line for pressor administration. Patient remains in critical condition in the SICU. OBJECTIVE BP (!) 75/38 Pulse 74 Temp 36.5 ???C (97.7 ???F) Resp 24 Ht 1.676 m (5' 6 ) Wt 124 kg (274 lb 4 oz) SpO2 100% BMI 44.27 kg/m??? General: A/O x3, resting comfortably in bed, cooperative MSK: LLE: Calf non-tender to palpation, compartments soft and compressible, no warmth, no erythema, motor intact DF/PF/EHL, wiggles toes, sensation intact t/sp/dp/s/s, good cap refill, 2+ DP/PT, and mild/moderate strikethrough about the proximal aspect of the incision remainder of the dressings are C/D/I Labs: Lab Results Component Value Date WBC 34.01 (H) 11/15/2023 HGB 7.3 (L) 11/15/2023 HCT 21.9 (L) 11/15/2023 MCV 85.5 11/15/2023 PLT 115 (L) 11/15/2023 Lab Results Component Value Date CALCIUM 6.7 (L) 11/15/2023 NA 143 11/15/2023 K 3.1 (L) 11/15/2023 CO2 10 (LL) 11/15/2023 CL 112 (H) 11/15/2023 BUN 26 (H) 11/15/2023 CREATININE 1.18 11/15/2023 Lab Results Component Value Date INR 12.96 (HH) 11/15/2023 Imaging: X-ray left femur 11/13/2023: Shows a left spiral, comminuted periprosthetic midshaft femur fracture with distal extension to the TKA implant, severe osteopenia ASSESSMENT: Celia Menon is a 78 y.o. female with a left periprosthetic femur fracture after a fall on 11/13/2023 now s/p ORIF left femur with lateral femoral locking plate and cerclage cable on 11/14/2023. PLAN -Patient remains critical in the SICU, primary care per SICU, patient is severely acidotic and requiring vasopressors lactate 16.9, INR 12.9 and WBC 36 - Please continue to hold Eliquis - Diet: Regular - Weightbearing activity status: TTWB LLE - PT/OT: Please evaluate and treat following operative stabilization of femur fracture - Antibiotics: Postoperative Ancef -Ice and elevation of extremity - Dressings: Reinforce dressings as necessary - Vitamin D and calcium supplementation -From orthopedic standpoint patient should require 6 weeks of DVT PPx from date of surgery, orthopedics recommends Lovenox, however continue to hold anticoagulants given patient's critical status - Patient will need follow-up with Dr. Smith in 10 to 14 days from date of surgery for wound check and suture removal - Remainder of care per primary team Derrick Rahman, Orthopedic Surgery, PGY2 Ortho Pager [phone] 11/15/23 4:00 PM I am available via G5 6a-6p. May contact the on-call resident with any concerns via the Orthopaedic pager at any time. [facility] 11-15-2023 Note Adult Nutrition Asse ssment: Name: Celia Menon Date: 1945 Date of Visit: 11/15/23 Admission Dx: Zarina-prosthetic femur fracture at tip of prosthesis, initial encounter [M97.8XXA, Z96.649] S/p ORIF L femur POD1 Reason for assessment: nutrition screen Information obtained from: medical record, nursing, and physician Past Medical History: Diagnosis Date Anemia Atrial fibrillation (CMS/HCC) Calcaneal spur of both feet Cataracts, bilateral CHF (congestive heart failure) (CMS/HCC) Chronic pain Cognitive communication deficit Delusional disorder (CMS/HCC) Dementia (CMS/HCC) Depression Fall 11/13/2023 Femur fracture, left (CMS/HCC) 11/13/2023 Generalized weakness GERD (gastroesophageal reflux disease) History of COVID-19 Hypertension Hypothyroid Insomnia OA (osteoarthritis) Obesity PVD (peripheral vascular disease) ([facility]) Renal failure Sick sinus syndrome ([facility]) Tinea unguium Current Medications: lidocaine (cardiac), , , acetaminophen, 1,000 mg, oral, q8h ASIM Or acetaminophen, 650 mg, rectal, q8h ASIM Or acetaminophen, 1,000 mg, oral, q8h ASIM famotidine, 20 mg, intravenous, BID Or famotidine, 20 mg, oral, BID hydrocortisone sodium succinate, 100 mg, intravenous, q8h insulin lispro, 0-5 Units, subcutaneous, q6h ASIM methocarbamol, 500 mg, oral, 4x daily metoprolol succinate XL, 25 mg, oral, Daily piperacillin-tazobactam, 4.5 g, intravenous, q12h potassium chloride, 10 mEq, intravenous, q1h sennosides, 1 tablet, oral, Nightly sodium chloride, 10 mL, intravenous, q12h amiodarone, 0.5 mg/min, Last Rate: 0.5 mg/min (11/15/23 0914) empty bag 1 each with sodium bicarbonate 400 mEq infusion, 50 mL/hr, Last Rate: 50 mL/hr (11/15/23729) norepinephrine, 0.01-2 mcg/kg/min, Last Rate: 1.43 mcg/kg/min (11/15/23 08) Oxygen Therapy, phenylephrine, 0.5-5 mcg/kg/min, Last Rate: 5 mcg/kg/min (11/15/23 0824) sodium bicarbonate 150 mEq in sterile water 1,000 mL infusion, 100 mL/hr, Last Rate: 100 mL/hr (11/15/23 0637) sodium chloride, 100 mL/hr, Last Rate: 100 mL/hr (11/15/23 1148) vasopressin, 0.04 Units/min, Last Rate: 0.04 Units/min (11/15/23 0710) Labs: 0 Lab Value Date/Time POCGLU 165 (H) 11/15/2023 1217 BUN 26 (H) 11/15/2023 0512 CREATININE 1.18 11/15/2023 0512 NA 143 11/15/2023 0953 K 3.1 (L) 11/15/2023 0953 PHOS 8.6 (H) 11/15/2023 0512 MG 2.5 11/15/2023 0512 HGB 9.7 (L) 11/15/2023 0512 WBC 34.34 (H) 11/15/2023 0512 Vit D 26.1 I/O: Intake/Output Summary (Last 24 hours) at 11/15/2023 1327 Last data filed at 11/15/2023 1159 Gross per 24 hour Intake 5919.35 ml Output 2200 ml Net 3719.35 ml Allergies: No Known Allergies Nutrition Problems: Swallowing Assessment: unable to determine Mouth: missing teeth Abdominal Assessment: Last BM 11/16/23, loose brown Cognition: oriented to person & time, forgetful, h/o dementia Skin Integrity: surgical incision/site L upper leg Other factors: generalized +2 edema, moderate pitting, hyperglycemia-steroid tx Anthropometrics: Height: 167.6 cm (5' 6 ) Weight: 124 kg (274 lb 4 oz) BMI (Calculated): 44.29 Wt change: 114.8 kg (11/13/23) [facility] transfer record. UBW 250s to 260s per SNF staff. 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 No use of ONS. No nutrition related concerns expressed. Dietary Orders (From admission, onward) Start Ordered 11/15/23 0310 Diet NPO Diet effective now Comments: Sips with medications Question: Reason for NPO: Answer: Nausea/Vomiting 11/15/23 0309 Nutrition Risk: Moderate Nutrition Needs: Needs based on: ideal body weight Calorie needs: 9332-4928 kcals/day based on Equation: 25-30 kcal/kg Protein needs: 70-82 g/day based on 1.2-1.4 g/kg Fluid needs: 1500 ml/day Nutrition Diagnosis: Suboptimal inake related to treatments & interventions as evidenced by surgery & postop vasopressor support. Malnutrition Assessment: Patient at risk for malnutrition according to hospital criteria, but does not meet the clinical characteristics per the Academy of Nutrition and Dietetics, and the [place] Society of Enteral and Parenteral Nutrition to support the diagnosis of malnutrition. Treatment Plan: Monitor NPO status AAT 2g Na when hemodynamically stable Vit D3 supplementation when able to take PO meds, 1250 mcg once/week DONOR RECRUITMENT MANAGER Goals: Nutrition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 Granulocytes Absolute 0.09 0.00 - 0.20 10*3/uL ECG 12 lead Collection Time: 11/13/23 11:34 PM Result Value Ref Range Ventricular Rate 108 BPM QRS DURATION 88 ms QT Interval 336 ms QTC CALCULATION(BAZETT) 450 ms R-Senatobia 35 degrees T Wave Senatobia 62 degrees POCT glucose meter Collection Time: 11/14/23 12:51 AM Result Value Ref Range Glucose POC 111 (H) 70 - 105 mg/dL Basic metabolic panel Collection Time: 11/14/23 6:04 AM Result Value Ref Range Sodium 144 136 - 145 mmol/L Potassium 4.1 3.5 - 5.1 mmol/L Chloride 105 98 - 107 mmol/L CO2 31 21 - 31 mmol/L BUN 24 7 - 25 mg/dL Creatinine 0.91 0.60 - 1.20 mg/dL Glucose 120 (H) 70 - 100 mg/dL Calcium 7.4 (L) 8.6 - 10.3 mg/dL Anion Gap 12 7 - 20 mmol/L eGFR 64.2 >60.0 mL/min/1.73m*2 BUN/Creatinine Ratio 26.4 Magnesium Collection Time: 11/14/23 6:04 AM Result Value Ref Range Magnesium 1.7 (L) 1.9 - 2.7 mg/dL Phosphorus Collection Time: 11/14/23 6:04 AM Result Value Ref Range Phosphorus 4.5 2.5 - 5.0 mg/dL CBC auto differential Collection Time: 11/14/23 6:04 AM Result Value Ref Range Auto WBC 8.43 4.00 - 10.60 10*3/uL RBC 3.33 (L) 3.80 - 5.00 10*6/uL Hemoglobin 9.7 (L) 12.0 - 15.0 g/dL Hematocrit 32.1 (L) 36.0 - 48.0 % MCV 96.4 82.0 - 98.0 fL MCH 29.1 27.0 - 33.0 pg MCHC 30.2 (L) 32.0 - 35.0 g/dL RDW 16.0 (H) 11.5 - 15.0 % Neutrophils Relative 73.8 (H) 40.0 - 72.0 % Lymphocytes Relative 15.9 (L) 20.0 - 45.0 % Monocytes Relative 9.1 5.0 - 12.0 % Eosinophils Relative 0.0 0.0 - 6.0 % Basophils Relative 0.4 0.0 - 1.0 % Neutrophils Absolute 6.22 1.60 - 7.60 10*3/uL Lymphocytes Absolute 1.34 1.20 - 4.00 10*3/uL Monocytes Absolute 0.77 0.10 - 1.00 10*3/uL Eosinophils Absolute 0.00 0.00 - 0.50 10*3/uL Basophils Absolute 0.03 0.00 - 0.20 10*3/uL Platelets 223 150 - 400 10*3/uL nRBC % 0.0 0 % Immature Granulocytes Relative 0.8 0.0 - 1.0 % Immature Granulocytes Absolute (more content not included)... [facility] Summary Purpose Family History No Family History Records FoundNo Family History Records FoundNo Family History Records Found Advance Directives No Advanced Directives Records FoundNo Advanced Directives Records FoundNo Advanced Directives Records Found Additional Source Comments INFORMATION SOURCE (unrecogn ized section and content) DATE CREATED AUTHOR 11/08/2017 [facility] DATE CREATED AUTHOR AUTHOR'S ORGANIZ ATION 09/09/2022 [facility] DATE CREATED AUTHOR AUTHOR'S ORGANIZ ATION 11/27/2023 [facility] FOR RECORDS PERTAINING TO PATIENTS WHO ARE [...] BE BASED ON THE PRIMARY CLINICAL RECORDS. [employer] [facility] provides no warranty or guarantee of the accuracy or completeness of information in this document.
[2023-12-01 09:44] LABS: Basophils Percent Auto 0.6 % (0.2-2.0); Hematocrit 26.3 % (36.0-48.0); Hemoglobin 7.5 g/dL (12.0-16.0); Immature Granulocytes Abs Auto 0.05 10^3/uL (0.00-0.03); Mean Corpuscular HGB Conc 28.5 g/dL (29.9-35.2); Mean Corpuscular Hemoglobin 30.1 pg (26.7-34.0); Mean Corpuscular Volume 105.6 fL (81.0-99.0); Mean Platelet Volume 10.3 fL (9.5-13.5); Monocytes Absolute Auto 0.4 10^3/uL (0.3-0.8); Monocytes Percent Auto 7.1 % (1.7-12.0); Neutrophils Absolute Auto 3.6 10^3/uL (1.4-6.5); Neutrophils Percent Auto 71.3 % (43.0-75.0); Platelet Count 251 10^3/uL (150-450); Red Cell Distribution Width 22.8 % (11.0-15.0); White Blood Count 5.1 10^3/uL (4.0-11.0)
[2023-12-01 14:02] LABS: Red Blood Count 2.49 10^6/uL (4.20-5.40)
== END 2023-12-01 06:50 | disposition home or self-care (01) ==
LOC: LAB 06:49
PROVIDERS: PCP Family Medicine; Visit Provider Family Medicine
DX: Z48.89 Encounter for other specified surgical aftercare (principal)
CPT/HCPCS: 36415; 85025

== ENCOUNTER 2023-12-01 13:39 | Outpatient (REF) | payer MEDICARE, MEDICAID, SELFPAY ==
--- OUTSIDE RECORDS SUMMARY | 2023-12-01 13:48 | XMS_ITS | CCD ---
Author Organization [facility] Care Team Providers Care Hamper Maker Name Role Phone NEPTALI VILLALTA Unavailable Unavailabl [...] Interpretation Reference Range Facility 36on 11-23-[address] [facility] called and states that they only have transportation in the PM for patients with stretchers. They are unable to bring patient to Post-op appointment on 11/28. They also would like to report heavy drainage. No other issues. Please call [phone] and ask for patients nurse to reschedule appointment. [facility] Telephoneon 11-23-2023 Telephone [phone] Marisol Menon 1945 F [facility] 11/23/2023 GIBRAN HEBERT MP ORTHO MPORTHO No family history on file Reason for Visit and Comments: Appointment [375] [facility] 30on 11-22-2023 30 Problem: Pain - [...] injury from restraints (Restraint for Interference with Start Up Specialist) Outcome: Progressing Goal: Free from restraint(s) (Restraint for Interference with Start Up Specialist) Outcome: Progressing Problem: Terminal Illness Goal: Patient's [...] to the hospice team Outcome: Progressing Goal: [place] with care giving, psychosocial, and end of [...] pain medication as ordered, q2 turns. Normal [facility] BASIC METABOLIC PANELon 07-1 0 Anion gap [Moles/Vol] 8 mmol/L Normal 7-20 [facility] Comment on above: Performed By: #### L [id number] #### [facility] (BEAKER) [address] [place] [address] Calcium [Mass/Vol] 6.7 mg/dL Low 8.6-10.3 [facility] Comment on above: Performed By: #### L [id number] #### [facility] ([facility]) [address] [place] [address] Chloride [Moles/Vol] 106 mmol/L Normal 98-107 [facility] Comment on above: Performed By: #### L [id number] #### [facility] ([facility]) [address] [place] [address] CO2 [Moles/Vol] 29 mmol/L Normal 21-31 [facility] Comment on above: Performed By: #### L [id number] #### [facility] (BEAKER) [address] [place] [address] Creatinine [Mass/Vol] 0.84 mg/dL Normal 0.60-1.20 [facility] Comment on above: Performed By: #### L [id number] #### [facility] (BEAKER) [address] [place] [address] GLOMERULAR FILTRATION RATE ML/MIN/1.73 SQ M.PREDICTED 70.6 mL/min/1.73m*2 Normal >60.0 [facility] Comment on above: Result Comment: The [facility]???s estimated glomerular filtration rate (eGFR) will no [...] individuals. Performed By: #### L [id number] #### [facility] ([facility]) [address] [place] [address] Glucose [Mass/Vol] 87 mg/dL Normal 70-100 [facility] Comment on above: Performed By: #### L [id number] #### [facility] ([facility]) [address] [place] [address] Potassium [Moles/Vol] 4.2 mmol/L Normal 3.5-5.1 [facility] Comment on above: Performed By: #### L [id number] #### [facility] ([facility]) [address] [place] [address] Sodium [Moles/Vol] 139 mmol/L Normal 136-145 [facility] Comment on above: Performed By: #### L [id number] #### [facility] ([facility]) [address] [place] [address] Urea nitrogen [Mass/Vol] 34 mg/dL High 7-25 [facility] Comment on above: Performed By: #### L [id number] #### [facility] ([facility]) [address] [place] [address] UREA NITROGEN/CREATININE (MASS RATIO) IN SER/PLAS 40.5 Normal [facility] Comment on above: Performed By: #### L [id number] #### [facility] ([facility]) [address] [place] [address] CBC WITH AUTO DIFFERENTIALon 11-22-2023 Erythrocyte distribution width (RBC) [Ratio] 22.2 % High 11.5-15.0 [facility] Comment on above: Performed By: #### L [id number] #### [facility] ([facility]) [address] [place] [address] ERYTHROCYTE MEAN CORPUSCULAR HEMOGLOBIN CONCENTRATION (G/DL) BY AUTOMATED 31.5 g/dL Low 32.0-35.0 [facility] Comment on above: Performed By: #### L [id number] #### [facility] (BEAKER) [address] [place] [address] Hematocrit (Bld) [Volume fraction] 26.0 % Low 36.0-48.0 [facility] Comment on above: Performed By: #### L [id number] #### [facility] ([facility]) [address] [place] [address] Hemoglobin (Bld) [Mass/Vol] 8.2 g/dL Low 12.0-15.0 [facility] Comment on above: Performed By: #### L [id number] #### [facility] ([facility]) [address] [place] [address] MCH (RBC) [Entitic mass] 30.4 pg Normal 27.0-33.0 [facility] Comment on above: Performed By: #### L [id number] #### [facility] ([facility]) [address] [place] [address] MCV (RBC) [Entitic vol] 96.3 fL Normal 82.0-98.0 [facility] Comment on above: Performed By: #### L [id number] #### [facility] ([facility]) [address] [place] [address] NRBC (PER 100 WBCS) BY AUTOMATED COUNT 2.0 % High 0 [facility] Comment on above: Performed By: #### L [id number] #### [facility] ([facility]) [address] [place] [address] PLATELETS (10*3/UL) IN BLOOD AUTOMATED COUNT 136 10*3/uL Low 150-400 [facility] Comment on above: Performed By: #### L [id number] #### [facility] ([facility]) [address] [place] [address] RBC (Bld) [#/Vol] 2.70 10*6/uL Low 3.80-5.[address] 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 Brenda deleon Note Visit Date: 11/22/2023 Patient [...] Wound 11/14/23 Leg Anterior;Left;Upper (Active) Site Assessment Painful;[place];Purple 11/22/23222 Zarina-Wound Assessment Blistered;Painful;[place] ;Purple 11/22/23222 Closure Piffard 11/22/23222 Drainage Description Red 11/22/23222 Drainage Amount Moderate 11/22/23222 Dressing Gauze;ABD;Transparent film 11/22/23222 Dressing Changed New 11/22/23222 Dressing Status Clean;Dry;Intact 11/22/23222 Margins Well-defined edges 11/22/23222 Wound 11/16/23 Abdomen Upper (Active) Site Assessment [place] 11/22/23222 Zarina-Wound Assessment Intact 11/22/23222 Drainage Description [...] Assessment Re (more content not included)... Normal [facility] MAGNESIUMon 11-22-2023 Magnesium [Mass/Vol] 2.0 mg/dL Normal 1.9-2.7 [facility] Comment on above: Performed By: #### L [id number] #### [facility] (BEAKER) [address] [place] [address] MANUAL DIFFERENTIALon 2023 ANISOCYTOSIS PRESENCE IN BLOOD BY LIGHT MICROSCOPY Moderate Normal [facility] Comment on above: Performed By: #### L [id number] #### [facility] (BEAKER) [address] [place] [address] BASOPHILS (10*3/UL) IN BLOOD BY CALCULATION 0.00 10*3/uL Normal 0.00-0.20 [facility] Comment on above: Performed By: #### L [id number] #### [facility] ([facility]) [address] [place] [address] BASOPHILS/100 LEUKOCYTES IN BLOOD BY AUTOMATED COUNT 0.0 % Normal 0.0-1.0 [facility] Comment on above: Performed By: #### L [id number] #### [facility] ([facility]) [address] [place] [address] EOSINOPHILS (10*3/UL) IN BLOOD BY CALCULATION 0.00 10*3/uL Normal 0.00-0.50 [facility] Comment on above: Performed By: #### L [id number] #### [facility] ([facility]) [address] [place] [address] EOSINOPHILS/100 LEUKOCYTES IN BLOOD BY AUTOMATED COUNT 0.0 % Normal 0.0-6.0 [facility] Comment on above: Performed By: #### L [id number] #### [facility] ([facility]) [address] [place] [address] LYMPHOCYTES (10*3/UL) IN BLOOD BY CALCULATION 1.55 10*3/uL Normal 1.20-4.00 [facility] Comment on above: Performed By: #### L [id number] #### [facility] ([facility]) [address] [place] [address] LYMPHOCYTES/100 LEUKOCYTES IN BLOOD BY AUTOMATED COUNT 15.2 % Low 20.0-45.0 [facility] Comment on above: Performed By: #### L [id number] #### [facility] ([facility]) [address] [place] [address] MACROCYTES (PRESENCE) IN BLOOD BY LIGHT MICROSCOPY Slight Normal [facility] Comment on above: Performed By: #### L [id number] #### [facility] ([facility]) [address] [place] [address] METAMYELOCYTES (10*3/UL) IN BLOOD BY CALCULATION 0.70 10*3/uL High 0.00 [facility] Comment on above: Performed By: #### L [id number] #### [facility] ([facility]) [address] [place] [address] METAMYELOCYTES/100 LEUKOCYTES IN BLOOD CELLAVISION 6.9 % High 0.0-0.0 [facility] Comment on above: Performed By: #### L [id number] #### [facility] ([facility]) [address] [place] [address] MONOCYTES (10*3/UL) IN BLOOD BY CALCUATION 0.29 10*3/uL Normal 0.10-1.00 [facility] Comment on above: Performed By: #### L [id number] #### [facility] ([facility]) [address] [place] [address] MONOCYTES/100 LEUKOCYTES IN BLOOD BY AUTOMATED COUNT 2.8 % Low 5.0-12.0 [facility] Comment on above: Performed By: #### L [id number] #### [facility] ([facility]) [address] [place] [address] MYELOCYTES (10*3/UL) IN BLOOD BY CALCULATION 0.49 10*3/uL High 0.00 [facility] Comment on above: Performed By: #### L [id number] #### [facility] ([facility]) [address] [place] [address] MYELOCYTES/100 LEUKOCYTES IN BLOOD CELLAVISION 4.8 % High 0.0-0.0 [facility] Comment on above: Performed By: #### L [id number] #### [facility] ([facility]) [address] [place] [address] NEUTROPHILS (10*3/UL) IN BLOOD BY CALCULATION 7.1 10*3/uL Normal 1.6-7.6 [facility] Comment on above: Performed By: #### L [id number] #### [facility] ([facility]) [address] [place] [address] NEUTROPHILS/100 LEUKOCYTES IN BLOOD BY AUTOMATED COUNT 69.6 % Normal 40.0-72.0 [facility] Comment on above: Performed By: #### L [id number] #### [facility] ([facility]) [address] [place] [address] NUCLEATED RED BLOOD CELLS IN BLOOD BY LIGHT MICROSCOPY Present Normal [facility] Comment on above: Performed By: #### L [id number] #### [facility] ([facility]) [address] [place] [address] PLASMA CELLS/100 LEUKOCYTES IN BLOOD 0 % Normal 0 [facility] Comment on above: Performed By: #### L [id number] #### [facility] ([facility]) [address] [place] [address] PLATELETS GIANT PRESENCE IN BLOOD BY LIGHT MICROSCOPY Present Normal [facility] Comment on above: Performed By: #### L [id number] #### [facility] ([facility]) [address] [place] [address] POIKILOCYTOSIS (PRESENCE) IN BLOOD BY LIGHT MICROSCOPY Slight Normal [facility] Comment on above: Performed By: #### L [id number] #### [facility] ([facility]) [address] [place] [address] POLYCHROMASIA IN BLOOD BY LIGHT MICROSCOPY Slight Normal [facility] Comment on above: Performed By: #### L [id number] #### [facility] ([facility]) [address] [place] [address] PROMYELOCYTES (10*3/UL) IN BLOOD BY CALCULATION 0.07 10*3/uL High 0.00 [facility] Comment on above: Performed By: #### L [id number] #### [facility] ([facility]) [address] [place] [address] PROMYELOCYTES/100 LEUKOCYTES IN BLOOD CELLAVISION 0.7 % High 0.0-0.0 [facility] Comment on above: Performed By: #### L [id number] #### [facility] ([facility]) [address] [place] [address] VARIANT LYMPHOCYTES (10*3/UL) IN BLOOD BY CALCULATION 0.00 10*3/uL Normal 0.00 [facility] Comment on above: Performed By: #### L [id number] #### [facility] ([facility]) [address] [place] [address] VARIANT LYMPHOCYTES/100 LEUKOCYTES IN BLOOD CELLAVISION 0.0 % Normal 0.0-0.0 [facility] Comment on above: Performed By: #### L [id number] #### [facility] ([employer]) [address] [facility] [place] [address] NURSNOTEon 11-22-2023 NURSNOTE Report given to ms rojas from [facility]. Two rings found inside patient's chart are placed back onto patient's fingers. Patient aware of the rings back on her finger. Normal [facility] PHOSPHORUSon 11-22-2023 Magnesium [Mass/Vol] 2.3 mg/dL Low 2.5-5.0 [facility] Comment on above: Performed By: #### L [id number] #### [facility] ([employer]) [address] [place] [address] PROTIME-INRon 11-22-2023 INR IN PPP BY COAGULATION ASSAY 1.22 High 0.90-1.10 [facility] Comment on above: Result Comment: ACCC P [...] #### L [id number] #### [facility] ([facility]) [address] [place] [address] PROTHROMBIN TIME (PT) IN PPP BY COAGULATION ASSAY 15.5 Seconds High 12.3-14.8 [facility] Comment on above: Performed By: #### L [id number] #### [facility] ([facility]) [address] [place] [address] BASIC METABOLIC PANELon 07-0 Anion gap [Moles/Vol] 10 mmol/L Normal 7-20 [facility] Comment on above: Performed By: #### L [id number] #### [facility] ([facility]) [address] [place] [address] Calcium [Mass/Vol] 7.4 mg/dL Low 8.6-10.3 [facility] Comment on above: Performed By: #### L [id number] #### [facility] ([facility]) [address] [place] [address] Chloride [Moles/Vol] 104 mmol/L Normal 98-107 [facility] Comment on above: Performed By: #### L [id number] #### [facility] ([facility]) [address] [place] [address] CO2 [Moles/Vol] 30 mmol/L Normal 21-31 [facility] Comment on above: Performed By: #### L [id number] #### [facility] ([facility]) [address] [place] [address] Creatinine [Mass/Vol] 1.21 mg/dL High 0.60-1.20 [facility] Comment on above: Performed By: #### L [id number] #### [facility] ([facility]) [address] [place] [address] GLOMERULAR FILTRATION RATE ML/MIN/1.73 SQ M.PREDICTED 45.6 mL/min/1.73m*2 Low >60.0 [facility] Comment on above: Result Comment: The [facility]???s estimated glomerular filtration rate (eGFR) will no [...] individuals. Performed By: #### L [id number] #### [facility] ([facility]) [address] [place] [address] Glucose [Mass/Vol] 101 mg/dL High 70-100 [facility] Comment on above: Performed By: #### L [id number] #### [facility] ([facility]) [address] [place] [address] Potassium [Moles/Vol] 4.1 mmol/L Normal 3.5-5.1 [facility] Comment on above: Performed By: #### L [id number] #### [facility] ([facility]) [address] [place] [address] Sodium [Moles/Vol] 140 mmol/L Normal 136-145 [facility] Comment on above: Performed By: #### L [id number] #### [facility] ([facility]) [address] [place] [address] Urea nitrogen [Mass/Vol] 41 mg/dL High 7-25 [facility] Comment on above: Performed By: #### L [id number] #### [facility] ([facility]) [address] [place] [address] UREA NITROGEN/CREATININE (MASS RATIO) IN SER/PLAS 33.9 Normal [facility] Comment on above: Performed By: #### L [id number] #### [facility] ([facility]) [address] [place] [address] CBC WITH AUTO DIFFERENTIALon 11-21-2023 Erythrocyte distribution width (RBC) [Ratio] 19.1 % High 11.5-15.0 [facility] Comment on above: Performed By: #### L [id number] #### [facility] (BEAKER) [address] [place] [address] ERYTHROCYTE MEAN CORPUSCULAR HEMOGLOBIN CONCENTRATION (G/DL) BY AUTOMATED 32.3 g/dL Normal 32.0-35.0 [facility] Comment on above: Performed By: #### L [id number] #### [facility] ([facility]) [address] [place] [address] Hematocrit (Bld) [Volume fraction] 25.7 % Low 36.0-48.0 [facility] Comment on above: Performed By: #### L [id number] #### [facility] ([facility]) [address] [place] [address] Hemoglobin (Bld) [Mass/Vol] 8.3 g/dL Low 12.0-15.0 [facility] Comment on above: Performed By: #### L [id number] #### [facility] ([facility]) [address] [place] [address] MCH (RBC) [Entitic mass] 29.7 pg Normal 27.0-33.0 [facility] Comment on above: Performed By: #### L [id number] #### [facility] ([facility]) [address] [place] [address] MCV (RBC) [Entitic vol] 92.1 fL Normal 82.0-98.0 [facility] Comment on above: Performed By: #### L [id number] #### [facility] ([facility]) [address] [place] [address] NRBC (PER 100 WBCS) BY AUTOMATED COUNT 8.1 % High 0 [facility] Comment on above: Performed By: #### L [id number] #### [facility] ([facility]) [address] [place] [address] PLATELETS (10*3/UL) IN BLOOD AUTOMATED COUNT 134 10*3/uL Low 150-400 [facility] Comment on above: Performed By: #### L [id number] #### [facility] ([facility]) [address] [place] [address] RBC (Bld) [#/Vol] 2.79 10*6/uL Low 3.80-5.[address] [facility] Comment on above: Performed By: #### L [id number] #### [facility] ([facility]) [address] [place] [address] WBC (Bld) [#/Vol] 13.21 10*3/uL High 4.00-10.60 [facility] Comment on above: Performed By: #### L [id number] #### [facility] ([facility]) [address] [place] [address] HEMOGLOBIN AND HEMATOCRIT, B LOODon 11-21-2023 Hematocrit (Bld) [Volume fraction] 25.9 % Low 36.0-48.0 [facility] Comment on above: Performed By: #### L [id number] #### [facility] ([facility]) [address] [place] [address] Hemoglobin (Bld) [Mass/Vol] 8.3 g/dL Low 12.0-15.0 [facility] Comment on above: Performed By: #### L [id number] #### [facility] ([facility]) [address] [place] [address] MAGNESIUMon 11-21-2023 Magnesium [Mass/Vol] 2.1 mg/dL Normal 1.9-2.7 [facility] Comment on above: Performed By: #### L [id number] #### [facility] ([facility]) [address] [place] [address] MANUAL DIFFERENTIALon 2023 BASOPHILS (10*3/UL) IN BLOOD BY CALCULATION 0.00 10*3/uL Normal 0.00-0.20 [facility] Comment on above: Performed By: #### L [id number] #### [facility] ([facility]) [address] [place] [address] BASOPHILS/100 LEUKOCYTES IN BLOOD BY AUTOMATED COUNT 0.0 % Normal 0.0-1.0 [facility] Comment on above: Performed By: #### L [id number] #### [facility] ([facility]) [address] [place] [address] EOSINOPHILS (10*3/UL) IN BLOOD BY CALCULATION 0.09 10*3/uL Normal 0.00-0.50 [facility] Comment on above: Performed By: #### L [id number] #### [facility] ([facility]) [address] [place] [address] EOSINOPHILS/100 LEUKOCYTES IN BLOOD BY AUTOMATED COUNT 0.7 % Normal 0.0-6.0 [facility] Comment on above: Performed By: #### L [id number] #### [facility] ([facility]) [address] [place] [address] LYMPHOCYTES (10*3/UL) IN BLOOD BY CALCULATION 1.27 10*3/uL Normal 1.20-4.00 [facility] Comment on above: Performed By: #### L [id number] #### [facility] ([facility]) [address] [place] [address] LYMPHOCYTES/100 LEUKOCYTES IN BLOOD BY AUTOMATED COUNT 9.6 % Low 20.0-45.0 [facility] Comment on above: Performed By: #### L [id number] #### [facility] ([facility]) [address] [place] [address] METAMYELOCYTES (10*3/UL) IN BLOOD BY CALCULATION 0.45 10*3/uL High 0.00 [facility] Comment on above: Performed By: #### L [id number] #### [facility] ([facility]) [address] [place] [address] METAMYELOCYTES/100 LEUKOCYTES IN BLOOD CELLAVISION 3.4 % High 0.0-0.0 [facility] Comment on above: Performed By: #### L [id number] #### [facility] ([facility]) [address] [place] [address] MONOCYTES (10*3/UL) IN BLOOD BY CALCUATION 0.63 10*3/uL Normal 0.10-1.00 [facility] Comment on above: Performed By: #### L [id number] #### [facility] ([facility]) [address] [place] [address] MONOCYTES/100 LEUKOCYTES IN BLOOD BY AUTOMATED COUNT 4.8 % Low 5.0-12.0 [facility] Comment on above: Performed By: #### L [id number] #### [facility] ([facility]) [address] [place] [address] MYELOCYTES (10*3/UL) IN BLOOD BY CALCULATION 0.81 10*3/uL High 0.00 [facility] Comment on above: Performed By: #### L [id number] #### [facility] ([facility]) [address] [place] [address] MYELOCYTES/100 LEUKOCYTES IN BLOOD CELLAVISION 6.1 % High 0.0-0.0 [facility] Comment on above: Performed By: #### L [id number] #### [facility] ([facility]) [address] [place] [address] NEUTROPHILS (10*3/UL) IN BLOOD BY CALCULATION 9.8 10*3/uL High 1.6-7.6 [facility] Comment on above: Performed By: #### L [id number] #### [facility] ([facility]) [address] [place] [address] NEUTROPHILS/100 LEUKOCYTES IN BLOOD BY AUTOMATED COUNT 74.0 % High 40.0-72.0 [facility] Comment on above: Performed By: #### L [id number] #### [facility] ([facility]) [address] [place] [address] NUCLEATED RED BLOOD CELLS IN BLOOD BY LIGHT MICROSCOPY Present Normal [facility] Comment on above: Performed By: #### L [id number] #### [facility] ([facility]) [address] [place] [address] PLASMA CELLS/100 LEUKOCYTES IN BLOOD 0 % Normal 0 [facility] Comment on above: Performed By: #### L [id number] #### [facility] ([facility]) [address] [place] [address] PROMYELOCYTES (10*3/UL) IN BLOOD BY CALCULATION 0.18 10*3/uL High 0.00 [facility] Comment on above: Performed By: #### L [id number] #### [facility] ([facility]) [address] [place] [address] PROMYELOCYTES/100 LEUKOCYTES IN BLOOD CELLAVISION 1.4 % High 0.0-0.0 [facility] Comment on above: Performed By: #### L [id number] #### [facility] ([facility]) [address] [place] [address] VARIANT LYMPHOCYTES (10*3/UL) IN BLOOD BY CALCULATION 0.00 10*3/uL Normal 0.00 [facility] Comment on above: Performed By: #### L [id number] #### [facility] ([facility]) [address] [place] [address] VARIANT LYMPHOCYTES/100 LEUKOCYTES IN BLOOD CELLAVISION 0.0 % Normal 0.0-0.0 [facility] Comment on above: Performed By: #### L [id number] #### [facility] ([facility]) [address] [place] [address] NURSNOTEon 11-21-2023 NURSNOTE Paper Sealer notified Angel with Trauma and Waldemar with [...] with blood upon moving the patient. Normal [facility] PHOSPHORUSon 11-21-2023 Magnesium [Mass/Vol] 2.7 mg/dL Normal 2.5-5.0 [facility] Comment on above: Performed By: #### L [id number] #### [facility] ([facility]) [address] [place] [address] PROTIME-INRon 11-21-2023 INR IN PPP BY COAGULATION ASSAY 1.18 High 0.90-1.10 [facility] Comment on above: Result Comment: ACCC P [...] 1995;[id number]. Performed By: #### L [id number] #### [facility] ([facility]) [address] [place] [address] PROTHROMBIN TIME (PT) IN PPP BY COAGULATION ASSAY 15.0 Seconds High 12.3-14.8 [facility] Comment on above: Performed By: #### L [id number] #### [facility] ([facility]) [address] [place] [address] 30on 11-20-2023 30 Problem: Pain - Adul [...] injury from restraints (Restraint for Interference with Start Up Specialist) Outcome: Progressing Goal: Free from restraint(s) (Restraint for Interference with Start Up Specialist) Outcome: Progressing Problem: Terminal Illness Goal: Patient's [...] to the hospice team Outcome: Progressing Goal: [place] with care giving, psychosocial, and end of [...] address these barriers include frequent reassessments. Normal [facility] BASIC METABOLIC PANELon 07-0 Anion gap [Moles/Vol] 11 mmol/L Normal 7-20 [facility] Comment on above: Performed By: #### L [id number] #### [facility] ([facility]) [address] [place] [address] Calcium [Mass/Vol] 6.8 mg/dL Low 8.6-10.3 [facility] Comment on above: Performed By: #### L [id number] #### [facility] ([facility]) [address] [place] [address] Chloride [Moles/Vol] 102 mmol/L Normal 98-107 [facility] Comment on above: Performed By: #### L [id number] #### [facility] ([facility]) [address] [place] [address] CO2 [Moles/Vol] 29 mmol/L Normal 21-31 [facility] Comment on above: Performed By: #### L [id number] #### [facility] ([facility]) [address] [place] [address] Creatinine [Mass/Vol] 1.59 mg/dL High 0.60-1.20 [facility] Comment on above: Performed By: #### L [id number] #### [facility] ([facility]) [address] [place] [address] GLOMERULAR FILTRATION RATE ML/MIN/1.73 SQ M.PREDICTED 32.8 mL/min/1.73m*2 Low >60.0 [facility] Comment on above: Result Comment: The [facility]???s estimated glomerular filtration rate (eGFR) will no [...] individuals. Performed By: #### L [id number] #### [facility] ([facility]) [address] [facility] [place] [address] Glucose [Mass/Vol] 116 mg/dL High 70-100 [facility] Comment on above: Performed By: #### L [id number] #### [facility] ([facility]) [address] [place] [address] Potassium [Moles/Vol] 4.4 mmol/L Normal 3.5-5.1 [facility] Comment on above: Performed By: #### L [id number] #### [facility] ([facility]) [address] [place] [address] Sodium [Moles/Vol] 138 mmol/L Normal 136-145 [facility] Comment on above: Performed By: #### L [id number] #### [facility] ([facility]) [address] [place] [address] Urea nitrogen [Mass/Vol] 47 mg/dL High 7-25 [facility] Comment on above: Performed By: #### L [id number] #### [facility] ([facility]) [address] [place] [address] UREA NITROGEN/CREATININE (MASS RATIO) IN SER/PLAS 29.6 Normal [facility] Comment on above: Performed By: #### L [id number] #### [facility] ([facility]) [address] [place] [address] CALCIUM, IONIZEDon CALCIUM IONIZED (MMOL/L) IN BLOOD 0.97 mmol/L Low 1.15-1.33 [facility] Comment on above: Performed By: #### L [id number] ####[facility] [place] [address] [place] CBCon 11-20-2023 Erythrocyte distribution width (RBC) [Ratio] 18.4 % High 11.5-15.0 [facility] Comment on above: Performed By: #### L [id number] #### [facility] ([facility]) [address] [place] [address] ERYTHROCYTE MEAN CORPUSCULAR HEMOGLOBIN CONCENTRATION (G/DL) BY AUTOMATED 32.6 g/dL Normal 32.0-35.0 [facility] Comment on above: Performed By: #### L [id number] #### [facility] ([facility]) [address] [place] [address] Hematocrit (Bld) [Volume fraction] 24.2 % Low 36.0-48.0 [facility] Comment on above: Performed By: #### L [id number] #### [facility] ([facility]) [address] [place] [address] Hemoglobin (Bld) [Mass/Vol] 7.9 g/dL Low 12.0-15.0 [facility] Comment on above: Performed By: #### L [id number] #### [facility] ([facility]) [address] [place] [address] MCH (RBC) [Entitic mass] 29.9 pg Normal 27.0-33.0 [facility] Comment on above: Performed By: #### L [id number] #### [facility] ([facility]) [address] [place] [address] MCV (RBC) [Entitic vol] 91.7 fL Normal 82.0-98.0 [facility] Comment on above: Performed By: #### L [id number] #### [facility] ([facility]) [address] [place] [address] PLATELETS (10*3/UL) IN BLOOD AUTOMATED COUNT 133 10*3/uL Low 150-400 [facility] Comment on above: Performed By: #### L [id number] #### [facility] ([facility]) [address] [place] [address] RBC (Bld) [#/Vol] 2.64 10*6/uL Low 3.80-5.[address] [facility] Comment on above: Performed By: #### L [id number] #### [facility] ([facility]) [address] [place] [address] WBC (Bld) [#/Vol] 13.49 10*3/uL High 4.00-10.60 [facility] Comment on above: Performed By: #### L [id number] #### [facility] ([facility]) [address] [place] [address] CBC WITH AUTO DIFFERENTIALon 11-20-2023 Erythrocyte distribution width (RBC) [Ratio] 22.2 % High 11.5-15.0 [facility] Comment on above: Performed By: #### L [id number] #### [facility] ([facility]) [address] [place] [address] ERYTHROCYTE MEAN CORPUSCULAR HEMOGLOBIN CONCENTRATION (G/DL) BY AUTOMATED 31.1 g/dL Low 32.0-35.0 [facility] Comment on above: Performed By: #### L [id number] #### [facility] ([facility]) [address] [place] [address] Hematocrit (Bld) [Volume fraction] 18.0 % Low 36.0-48.0 [facility] Comment on above: Performed By: #### L [id number] #### [facility] ([facility]) [address] [place] [address] Hemoglobin (Bld) [Mass/Vol] 5.6 g/dL Invalid Interpretation Code 12.0-15.0 [facility] Comment on above: Performed By: #### L [id number] #### [facility] ([facility]) [address] [place] [address] MCH (RBC) [Entitic mass] 29.3 pg Normal 27.0-33.0 [facility] Comment on above: Performed By: #### L [id number] #### [facility] ([facility]) [address] [place] [address] MCV (RBC) [Entitic vol] 94.2 fL Normal 82.0-98.0 [facility] Comment on above: Performed By: #### L [id number] #### [facility] ([facility]) [address] [place] [address] NRBC (PER 100 WBCS) BY AUTOMATED COUNT 11.3 % High 0 [facility] Comment on above: Performed By: #### L [id number] #### [facility] ([facility]) [address] [place] [address] PLATELETS (10*3/UL) IN BLOOD AUTOMATED COUNT 139 10*3/uL Low 150-400 [facility] Comment on above: Performed By: #### L [id number] #### [facility] ([facility]) [address] [place] [address] RBC (Bld) [#/Vol] 1.91 10*6/uL Low 3.80-5.[address] [facility] Comment on above: Performed By: #### L [id number] #### [facility] ([facility]) [address] [place] [address] WBC (Bld) [#/Vol] 13.93 10*3/uL High 4.00-10.60 [facility] Comment on above: Performed By: #### L [id number] #### [facility] ([facility]) [address] [place] [address] CKon 11-20-2023 CREATINE KINASE (U/L) IN SER/PLAS 239.0 U/L High 30.0-223.0 [facility] Comment on above: Performed By: #### L [id number] #### [facility] ([facility]) [address] [place] [address] HEMOGLOBIN AND HEMATOCRIT, B LOODon 11-20-2023 Hematocrit (Bld) [Volume fraction] 22.7 % Low 36.0-48.0 [facility] Comment on above: Performed By: #### L [id number] #### [facility] ([facility]) [address] [place] [address] Hemoglobin (Bld) [Mass/Vol] 7.2 g/dL Low 12.0-15.0 [facility] Comment on above: Performed By: #### L [id number] #### [facility] ([facility]) [address] [place] [address] Hematocrit (Bld) [Volume fraction] 18.7 % Low 36.0-48.0 [facility] Comment on above: Performed By: #### L [id number] #### [facility] ([facility]) [address] [place] [address] Hemoglobin (Bld) [Mass/Vol] 5.8 g/dL Invalid Interpretation Code 12.0-15.0 [facility] Comment on above: Performed By: #### L [id number] #### [facility] ([facility]) [address] [place] [address] MAGNESIUMon 11-20-2023 Magnesium [Mass/Vol] 2.1 mg/dL Normal 1.9-2.7 [facility] Comment on above: Performed By: #### L [id number] #### [facility] ([facility]) [address] [place] [address] MANUAL DIFFERENTIALon 2023 ANISOCYTOSIS PRESENCE IN BLOOD BY LIGHT MICROSCOPY Moderate Normal [facility] Comment on above: Performed By: #### L [id number] #### [facility] ([facility]) [address] [place] [address] BASOPHILS (10*3/UL) IN BLOOD BY CALCULATION 0.00 10*3/uL Normal 0.00-0.20 [facility] Comment on above: Performed By: #### L [id number] #### [facility] ([facility]) [address] [place] [address] BASOPHILS/100 LEUKOCYTES IN BLOOD BY AUTOMATED COUNT 0.0 % Normal 0.0-1.0 [facility] Comment on above: Performed By: #### L [id number] #### [facility] ([facility]) [address] [place] [address] EOSINOPHILS (10*3/UL) IN BLOOD BY CALCULATION 0.00 10*3/uL Normal 0.00-0.50 [facility] Comment on above: Performed By: #### L [id number] #### [facility] ([facility]) [address] [place] [address] EOSINOPHILS/100 LEUKOCYTES IN BLOOD BY AUTOMATED COUNT 0.0 % Normal 0.0-6.0 [facility] Comment on above: Performed By: #### L [id number] #### [facility] ([facility]) [address] [place] [address] HYPOCHROMIA (PRESENCE) IN BLOOD BY LIGHT MICROSCOPY Slight Normal [facility] Comment on above: Performed By: #### L [id number] #### [facility] ([facility]) [address] [place] [address] LYMPHOCYTES (10*3/UL) IN BLOOD BY CALCULATION 1.94 10*3/uL Normal 1.20-4.00 [facility] Comment on above: Performed By: #### L [id number] #### [facility] ([facility]) [address] [place] [address] LYMPHOCYTES/100 LEUKOCYTES IN BLOOD BY AUTOMATED COUNT 13.9 % Low 20.0-45.0 [facility] Comment on above: Performed By: #### L [id number] #### [facility] ([facility]) [address] [place] [address] METAMYELOCYTES (10*3/UL) IN BLOOD BY CALCULATION 0.39 10*3/uL High 0.00 [facility] Comment on above: Performed By: #### L [id number] #### [facility] ([facility]) [address] [place] [address] METAMYELOCYTES/100 LEUKOCYTES IN BLOOD CELLAVISION 2.8 % High 0.0-0.0 [facility] Comment on above: Performed By: #### L [id number] #### [facility] ([facility]) [address] [place] [address] MONOCYTES (10*3/UL) IN BLOOD BY CALCUATION 0.38 10*3/uL Normal 0.10-1.00 [facility] Comment on above: Performed By: #### L [id number] #### [facility] ([facility]) [address] [place] [address] MONOCYTES/100 LEUKOCYTES IN BLOOD BY AUTOMATED COUNT 2.7 % Low 5.0-12.0 [facility] Comment on above: Performed By: #### L [id number] #### [facility] ([facility]) [address] [place] [address] MYELOCYTES (10*3/UL) IN BLOOD BY CALCULATION 0.20 10*3/uL High 0.00 [facility] Comment on above: Performed By: #### L [id number] #### [facility] ([facility]) [address] [place] [address] MYELOCYTES/100 LEUKOCYTES IN BLOOD CELLAVISION 1.4 % High 0.0-0.0 [facility] Comment on above: Performed By: #### L [id number] #### [facility] ([facility]) [address] [place] [address] NEUTROPHILS (10*3/UL) IN BLOOD BY CALCULATION 10.8 10*3/uL High 1.6-7.6 [facility] Comment on above: Performed By: #### L [id number] #### [facility] ([facility]) [address] [place] [address] NEUTROPHILS/100 LEUKOCYTES IN BLOOD BY AUTOMATED COUNT 77.8 % High 40.0-72.0 [facility] Comment on above: Performed By: #### L [id number] #### [facility] ([facility]) [address] [place] [address] NUCLEATED RED BLOOD CELLS IN BLOOD BY LIGHT MICROSCOPY Present Normal [facility] Comment on above: Performed By: #### L [id number] #### [facility] ([facility]) [address] [place] [address] PLASMA CELLS/100 LEUKOCYTES IN BLOOD 0 % Normal 0 [facility] Comment on above: Performed By: #### L [id number] #### [facility] ([facility]) [address] [place] [address] PLATELETS GIANT PRESENCE IN BLOOD BY LIGHT MICROSCOPY Present Normal [facility] Comment on above: Performed By: #### L [id number] #### [facility] ([facility]) [address] [place] [address] POIKILOCYTOSIS (PRESENCE) IN BLOOD BY LIGHT MICROSCOPY Slight Normal [facility] Comment on above: Performed By: #### L [id number] #### [facility] ([facility]) [address] [place] [address] POLYCHROMASIA IN BLOOD BY LIGHT MICROSCOPY Slight Normal [facility] Comment on above: Performed By: #### L [id number] #### [facility] ([facility]) [address] [place] [address] PROMYELOCYTES (10*3/UL) IN BLOOD BY CALCULATION 0.20 10*3/uL High 0.00 [facility] Comment on above: Performed By: #### L [id number] #### [facility] ([facility]) [address] [place] [address] PROMYELOCYTES/100 LEUKOCYTES IN BLOOD CELLAVISION 1.4 % High 0.0-0.0 [facility] Comment on above: Performed By: #### L [id number] #### [facility] ([facility]) [address] [place] [address] VARIANT LYMPHOCYTES (10*3/UL) IN BLOOD BY CALCULATION 0.00 10*3/uL Normal 0.00 [facility] Comment on above: Performed By: #### L [id number] #### [facility] ([facility]) [address] [place] [address] VARIANT LYMPHOCYTES/100 LEUKOCYTES IN BLOOD CELLAVISION 0.0 % Normal 0.0-0.0 [facility] Comment on above: Performed By: #### L [id number] #### [facility] ([facility]) [address] [place] [address] NURSNOTEon 11-20-2023 NURSNOTE Paper Sealer and Aid gautam ed patients brief which caused Hip dressing to completely saturate the dressing and leak out with blood. Ortho immediately paged and changed dressing at bedside. Had to hold pressure on incision for several minutes to stop bleeding. Hbg at this time was 5.6. Waiting for further instructions from ortho at this time. Trama also aware of bleeding and hgb. Normal [facility] MARIA ENOTE Patient has critical HGB of 5.8. DPOA was contacted at 0150 and did not picking machine operator to get consent for blood transfusion. Will transfuse emergently. Normal [facility] PATHOLOGY REVIEWon PATHOLOGY REVIEW Electronically christina d by Viktoriya Dominguez MD on 11/20/23 at 12:12 PM. [facility] Comment on above: Performed By: #### L [id number] #### [facility] ([facility]) [address] [place] [address] PHOSPHORUSon 11-20-2023 Magnesium [Mass/Vol] 3.2 mg/dL Normal 2.5-5.0 [facility] Comment on above: Performed By: #### L [id number] #### [facility] ([facility]) [address] [place] [address] PROTIME-INRon 11-20-2023 INR IN PPP BY COAGULATION ASSAY 3.65 High 0.90-1.10 [facility] Comment on above: Result Comment: ACCC P [...] 1995;108:[id number]. Performed By: #### L [id number] #### [facility] ([employer]) [address] [place] [address] PROTHROMBIN TIME (PT) IN PPP BY COAGULATION ASSAY 36.6 Seconds High 12.3-14.8 [facility] Comment on above: Performed By: #### L [id number] #### [facility] ([employer]) [address] [place] [address] INR IN PPP BY COAGULATION ASSAY 4.24 High 0.90-1.10 [facility] Comment on above: Result Comment: ACCC P [...] 1995;108:[id number]. Performed By: #### L [id number] #### [facility] ([employer]) [address] [place] [address] PROTHROMBIN TIME (PT) IN PPP BY COAGULATION ASSAY 41.1 Seconds High 12.3-14.8 [facility] Comment on above: Performed By: #### L [id number] #### [facility] ([employer]) [address] [place] [address] 30on 07-07-2024 30 The patient is Moderately Stable - Low risk of patient condition declining or worsening The patient's goals for the shift include SANDRA The clinical goals for the shift include VSS COMFORT Over the shift, the patient did not make progress toward the following goals. Barriers to progression include pain. Recommendations to address these barriers include pain control. Normal [facility] BASIC METABOLIC PANELon 07-0 Anion gap [Moles/Vol] 14 mmol/L Normal 7-20 [facility] Comment on above: Performed By: #### L [id number] #### [facility] ([facility]) [address] [place] [address] Calcium [Mass/Vol] 6.9 mg/dL Low 8.6-10.3 [facility] Comment on above: Performed By: #### L [id number] #### [facility] (BEAKER) [address] [place] [address] Chloride [Moles/Vol] 99 mmol/L Normal 98-107 [facility] Comment on above: Performed By: #### L [id number] #### [facility] (BEAKER) [address] [place] [address] CO2 [Moles/Vol] 28 mmol/L Normal 21-31 [facility] Comment on above: Performed By: #### L [id number] #### [facility] (BEAKER) [address] [place] [address] Creatinine [Mass/Vol] 2.03 mg/dL High 0.60-1.20 [facility] Comment on above: Performed By: #### L [id number] #### [facility] ([facility]) [address] [place] [address] GLOMERULAR FILTRATION RATE ML/MIN/1.73 SQ M.PREDICTED 24.5 mL/min/1.73m*2 Low >60.0 [facility] Comment on above: Result Comment: The [facility]???s estimated glomerular filtration rate (eGFR) will no [...] individuals. Performed By: #### L [id number] #### [facility] ([facility]) [address] [place] [address] Glucose [Mass/Vol] 107 mg/dL High 70-100 [facility] Comment on above: Performed By: #### L [id number] #### [facility] ([facility]) [address] [place] [address] Potassium [Moles/Vol] 3.0 mmol/L Low 3.5-5.1 [facility] Comment on above: Performed By: #### L [id number] #### [facility] ([facility]) [address] [place] [address] Sodium [Moles/Vol] 138 mmol/L Normal 136-145 [facility] Comment on above: Performed By: #### L [id number] #### [facility] ([facility]) [address] [place] [address] Urea nitrogen [Mass/Vol] 49 mg/dL High 7-25 [facility] Comment on above: Performed By: #### L [id number] #### [facility] ([facility]) [address] [place] [address] UREA NITROGEN/CREATININE (MASS RATIO) IN SER/PLAS 24.1 Normal [facility] Comment on above: Performed By: #### L [id number] #### [facility] ([facility]) [address] [place] [address] CALCIUM, IONIZEDon 4 CALCIUM IONIZED (MMOL/L) IN BLOOD 0.91 mmol/L Low 1.15-1.33 [facility] Comment on above: Performed By: #### L [id number] #### [facility] [address] [place] [address] [place] CBC WITH AUTO DIFFERENTIALon 11-19-2023 Erythrocyte distribution width (RBC) [Ratio] 22.3 % High 11.5-15.0 [facility] Comment on above: Performed By: #### L [id number] #### [facility] (BEAKER) [address] [place] [address] ERYTHROCYTE MEAN CORPUSCULAR HEMOGLOBIN CONCENTRATION (G/DL) BY AUTOMATED 31.6 g/dL Low 32.0-35.0 [facility] Comment on above: Performed By: #### L [id number] #### [facility] ([facility]) [address] [place] [address] Hematocrit (Bld) [Volume fraction] 19.6 % Low 36.0-48.0 [facility] Comment on above: Performed By: #### L [id number] #### [facility] ([facility]) [address] [place] [address] Hemoglobin (Bld) [Mass/Vol] 6.2 g/dL Low 12.0-15.0 [facility] Comment on above: Performed By: #### L [id number] #### [facility] ([facility]) [address] [place] [address] MCH (RBC) [Entitic mass] 29.2 pg Normal 27.0-33.0 [facility] Comment on above: Performed By: #### L [id number] #### [facility] ([facility]) [address] [place] [address] MCV (RBC) [Entitic vol] 92.5 fL Normal 82.0-98.0 [facility] Comment on above: Performed By: #### L [id number] #### [facility] ([facility]) [address] [place] [address] NRBC (PER 100 WBCS) BY AUTOMATED COUNT 9.5 % High 0 [facility] Comment on above: Performed By: #### L [id number] #### [facility] (BEAKER) [address] [place] [address] PLATELETS (10*3/UL) IN BLOOD AUTOMATED COUNT 123 10*3/uL Low 150-400 [facility] Comment on above: Performed By: #### L [id number] #### [facility] ([facility]) [address] [place] [address] RBC (Bld) [#/Vol] 2.12 10*6/uL Low 3.80-5.[address] [facility] Comment on above: Performed By: #### L [id number] #### [facility] ([facility]) [address] [place] [address] WBC (Bld) [#/Vol] 18.42 10*3/uL High 4.00-10.60 [facility] Comment on above: Performed By: #### L [id number] #### [facility] ([facility]) [address] [place] [address] HEPATIC FUNCTION PANELon Albumin [Mass/Vol] 2.1 g/dL Low 3.5-5.7 [facility] Comment on above: Performed By: #### L [id number] #### [facility] ([facility]) [address] [place] [address] ALP [Catalytic activity/Vol] 97 U/L Normal 34-104 [facility] Comment on above: Performed By: #### L [id number] #### [facility] ([facility]) [address] [place] [address] ALT [Catalytic activity/Vol] 29 U/L Normal 7-52 [facility] Comment on above: Performed By: #### L [id number] #### [facility] ([facility]) [address] [place] [address] AST [Catalytic activity/Vol] 89 U/L High 13-39 [facility] Comment on above: Performed By: #### L [id number] #### [facility] ([facility]) [address] [place] [address] Bilirubin [Mass/Vol] 0.9 mg/dL Normal 0.3-1.0 [facility] Comment on above: Performed By: #### L [id number] #### [facility] ([facility]) [address] [place] [address] Magnesium [Mass/Vol] 0.4 mg/dL High 0-0.2 [facility] Comment on above: Performed By: #### L [id number] #### [facility] ([facility]) [address] [place] [address] Protein [Mass/Vol] 4.0 g/dL Low 6.0-8.3 [facility] Comment on above: Performed By: #### L [id number] #### [facility] ([facility]) [address] [place] [address] LACTIC ACID WITH 4 HOUR REFL EXon 11-19-2023 LACTATE (MMOL/L) IN SER/PLAS 0.9 mmol/L Normal 0.5-2.2 [facility] Comment on above: Performed By: #### L [id number] #### [facility] ([facility]) [address] [place] [address] MAGNESIUMon 11-19-2023 Magnesium [Mass/Vol] 1.9 mg/dL Normal 1.9-2.7 [facility] Comment on above: Performed By: #### L [id number] #### [facility] ([facility]) [address] [place] [address] MANUAL DIFFERENTIALon 2023 ANISOCYTOSIS PRESENCE IN BLOOD BY LIGHT MICROSCOPY Moderate Normal [facility] Comment on above: Performed By: #### L [id number] #### [facility] ([facility]) [address] [place] [address] BASOPHILS (10*3/UL) IN BLOOD BY CALCULATION 0.00 10*3/uL Normal 0.00-0.20 [facility] Comment on above: Performed By: #### L [id number] #### [facility] ([facility]) [address] [place] [address] BASOPHILS/100 LEUKOCYTES IN BLOOD BY AUTOMATED COUNT 0.0 % Normal 0.0-1.0 [facility] Comment on above: Performed By: #### L [id number] #### [facility] ([facility]) [address] [place] [address] EOSINOPHILS (10*3/UL) IN BLOOD BY CALCULATION 0.00 10*3/uL Normal 0.00-0.50 [facility] Comment on above: Performed By: #### L [id number] #### [facility] ([facility]) [address] [place] [address] EOSINOPHILS/100 LEUKOCYTES IN BLOOD BY AUTOMATED COUNT 0.0 % Normal 0.0-6.0 [facility] Comment on above: Performed By: #### L [id number] #### [facility] ([facility]) [address] [place] [address] HYPOCHROMIA (PRESENCE) IN BLOOD BY LIGHT MICROSCOPY Moderate Normal [facility] Comment on above: Performed By: #### L [id number] #### [facility] ([facility]) [address] [place] [address] LYMPHOCYTES (10*3/UL) IN BLOOD BY CALCULATION 1.23 10*3/uL Normal 1.20-4.00 [facility] Comment on above: Performed By: #### L [id number] #### [facility] ([facility]) [address] [place] [address] LYMPHOCYTES/100 LEUKOCYTES IN BLOOD BY AUTOMATED COUNT 6.7 % Low 20.0-45.0 [facility] Comment on above: Performed By: #### L [id number] #### [facility] ([facility]) [address] [place] [address] MONOCYTES (10*3/UL) IN BLOOD BY CALCUATION 0.87 10*3/uL Normal 0.10-1.00 [facility] Comment on above: Performed By: #### L [id number] #### [facility] ([facility]) [address] [place] [address] MONOCYTES/100 LEUKOCYTES IN BLOOD BY AUTOMATED COUNT 4.7 % Low 5.0-12.0 [facility] Comment on above: Performed By: #### L [id number] #### [facility] ([facility]) [address] [place] [address] NEUTROPHILS (10*3/UL) IN BLOOD BY CALCULATION 15.8 10*3/uL High 1.6-7.6 [facility] Comment on above: Performed By: #### L [id number] #### [facility] ([facility]) [address] [place] [address] NEUTROPHILS/100 LEUKOCYTES IN BLOOD BY AUTOMATED COUNT 85.9 % High 40.0-72.0 [facility] Comment on above: Performed By: #### L [id number] #### [facility] ([facility]) [address] [place] [address] NUCLEATED RED BLOOD CELLS IN BLOOD BY LIGHT MICROSCOPY Present Normal [facility] Comment on above: Performed By: #### L [id number] #### [facility] ([facility]) [address] [place] [address] PLASMA CELLS/100 LEUKOCYTES IN BLOOD 0 % Normal 0 [facility] Comment on above: Performed By: #### L [id number] #### [facility] ([facility]) [address] [place] [address] PLATELETS GIANT PRESENCE IN BLOOD BY LIGHT MICROSCOPY Present Normal [facility] Comment on above: Performed By: #### L [id number] #### [facility] ([facility]) [address] [place] [address] POIKILOCYTOSIS (PRESENCE) IN BLOOD BY LIGHT MICROSCOPY Slight Normal [facility] Comment on above: Performed By: #### L [id number] #### [facility] ([facility]) [address] [place] [address] POLYCHROMASIA IN BLOOD BY LIGHT MICROSCOPY Slight Normal [facility] Comment on above: Performed By: #### L [id number] #### [facility] ([facility]) [address] [place] [address] PROMYELOCYTES (10*3/UL) IN BLOOD BY CALCULATION 0.50 10*3/uL High 0.00 [facility] Comment on above: Performed By: #### L [id number] #### [facility] ([facility]) [address] [place] [address] PROMYELOCYTES/100 LEUKOCYTES IN BLOOD CELLAVISION 2.7 % High 0.0-0.0 [facility] Comment on above: Performed By: #### L [id number] #### [facility] ([facility]) [address] [place] [address] VARIANT LYMPHOCYTES (10*3/UL) IN BLOOD BY CALCULATION 0.00 10*3/uL Normal 0.00 [facility] Comment on above: Performed By: #### L [id number] #### [facility] ([facility]) [address] [place] [address] VARIANT LYMPHOCYTES/100 LEUKOCYTES IN BLOOD CELLAVISION 0.0 % Normal 0.0-0.0 [facility] Comment on above: Performed By: #### L [id number] #### [facility] ([facility]) [address] [place] [address] NURSNOTEon 11-19-2023 NURSNOTE Paper Sealer notified Galdino y from trauma team that the patient has significant edema in RUE and was not notified that there was any previous infiltration, will be getting second IV for blood administration, no concern about swelling from trauma team at this time. Normal [facility] PHOSPHORUSon 11-19-2023 Magnesium [Mass/Vol] 4.1 mg/dL Normal 2.5-5.0 [facility] Comment on above: Performed By: #### L [id number] #### [facility] ([facility]) [address] [place] [address] POTASSIUMon 11-19-2023 Potassium [Moles/Vol] 3.7 mmol/L Normal 3.5-5.1 [facility] Comment on above: Performed By: #### L [id number] #### [facility] ([facility]) [address] [address] PROTIME-INRon 11-19-2023 INR IN PPP BY COAGULATION ASSAY 4.04 High 0.90-1.10 [facility] Comment on above: Result Comment: ACCC P [...] CHEST 1995;[id number]. Performed By: #### L [id number] ####[facility] ([employer])[address] [facility] [place] [address] PROTHROMBIN TIME (PT) IN PPP BY COAGULATION ASSAY 39.6 Seconds High 12.3-14.8 [facility] Comment on above: Performed By: #### L [id number] ####[facility] ([employer]AKER)[address] [place] [address] TYPE AND SCREENon 11-19-2023 AB SCREEN Negative Normal [facility] Comment on above: Performed By: #### L [id number] #### [facility] (BEAKER) [address] [place] [address] ABO group Nom (Bld) O Normal [facility] Comment on above: Performed By: #### L [id number] #### [facility] (AKER) [address] [place] [address] RH TYPE IN BLOOD Positive Normal [facility] Comment on above: Performed By: #### L [id number] #### [facility] ([facility]) [address] [place] [address] 30on 11-18-2023 30 Problem: Pain - Adul [...] and behaviors that affect risk of falls Hana fall precautions as indicated by assessment Educate [...] discharge resources and transportation as appropriate Normal [facility] 30on 11-17-2023 30 The patient is Moderately Stable - Low risk of patient condition declining or worsening The patient's goals for the shift include comfort The clinical goals for the shift include comfort Over the shift, the patient did not make progress toward the following goals. Barriers to progression include poor PO intake. Recommendations to address these barriers include meal encouragement. Normal [facility] 30 Daily Case Managemen t Update Multidisciplinary rounds have been completed. Barriers to Discharge: POD#3 ORIF L femur. TTWB LLE. Plan is to discharge back to [facility]. No precert needed. Diet: Dietary Orders [...] muscular skeletal surgical procedure 11/15/23 0156 Normal [facility] 30 Problem: Pain - Adul t Goal: [...] injury from restraints (Restraint for Interference with Start Up Specialist) Outcome: Progressing Goal: Free from restraint(s) (Restraint for Interference with Start Up Specialist) Outcome: Progressing Problem: Terminal Illness Goal: Patient's [...] to the hospice team Outcome: Progressing Goal: [place] with care giving, psychosocial, and end of [...] barriers include frequent reassessments, reorientation, turns. Normal [facility] CONSULTon 11-17-2023 CONSULT [facility] CONSULT NOTE 11/17/2023 Patient Name: Celia Menon : 1945 ADVANCED DIRECTIVES: Legal Guardianship CODE STATUS: DNR CC REASON FOR CONSULTATION: Palliative medicine consult requested by Regla Salazar MD for eClia Menon who is 78 y.o. to assist with complex decision-making, symptom control, and goals of care. HPI: Celia Menon is a 78 y.o. female who was admitted on 11/13/2023 after a fall at her snf. She was found to have a left mid-shaft femur fracture. She underwent ORIF here. She has a history of dementia. Past Medical History: Diagnosis Date Anemia Atrial fibrillation ([facility]) Calcaneal spur of both feet Cataracts, bilateral CHF (congestive heart failure) ([facility]) Chronic pain Cognitive communication deficit Delusional disorder ([facility]) [facility]ementia ([facility]) Depression Fall 11/13/2023 Femur fracture, left ([facility]) 11/13/2023 Generalized weakness GERD (gastroesophageal reflux disease) History of COVID-19 Hypertension Hypothyroid Insomnia OA (osteoarthritis) Obesity PVD (peripheral vascular disease) ([facility]) Renal failure Sick sinus syndrome ([facility]) Tinea unguium Past Surgical History: Procedure Laterality [...] other questio (more content not included)... Normal [facility] NURSNOTEon 11-17-2023 NURSNOTE Patient states frustration with having to do assessment, and meds stating she doesn't want to be told what to do . Patient also refusing oxygen at this time. Normal [facility] 30on 11-15-2023 30 Problem: Pain - Adul [...] injury from restraints (Restraint for Interference with Start Up Specialist) Outcome: Progressing Goal: Free from restraint(s) (Restraint for Interference with Start Up Specialist) Outcome: Progressing Normal [facility] 30 Problem: Pain - Adul t Goal: [...] injury from restraints (Restraint for Interference with Start Up Specialist) Outcome: Progressing Goal: Free from restraint(s) (Restraint for Interference with Start Up Specialist) Outcome: Progressing Normal [facility] ARTERIAL BLOOD GAS WITH CO-O XIMETRYon 11-15-2023 Base excess Calc (Bld) [Moles/Vol] -16.75733 mmol/L Low -2.0-3.0 [facility] Comment on above: Performed By: #### L [id number] #### [facility] (BEAKER) [address] [place] [address] CARBOXYHEMOGLOBIN/HEM OGLOBIN TOTAL % IN BLOOD 1.3 % Normal 0.0-3.0 [facility] Comment on above: Performed By: #### L [id number] #### [facility] (BEAKER) [address] [place] [address] CO2 (Bld) [Partial pressure] 32 mm[Hg] Low 35-48 [facility] Comment on above: Performed By: #### L [id number] #### [facility] (BEAKER) [address] [place] [address] DEOXYGENATED HEMOGLOBIN IN BLOOD 4.6 % Normal 1-5 [facility] Comment on above: Performed By: #### L [id number] #### [facility] (BEAKER) [address] [place] [address] HCO3 (Bld) [Moles/Vol] 11.1 mmol/L Low 21.0-28.0 [facility] Comment on above: Performed By: #### L [id number] #### [facility] (BEAKER) [address] [place] [address] Hemoglobin (Bld) [Mass/Vol] 8.9 g/dL Low 11.7-17.4 [facility] Comment on above: Performed By: #### L [id number] #### [facility] ([facility]) [address] [place] [address] METHEMOGLOBIN/100 IN BLOOD 0.3 % Normal 0.0-1.5 [facility] Comment on above: Performed By: #### L [id number] #### [facility] ([facility]) [address] [place] [address] Oxygen (Bld) [Partial pressure] 75 mm[Hg] Low 83-100 [facility] Comment on above: Performed By: #### L [id number] #### [facility] ([facility]) [address] [place] [address] OXYGEN SATURATION (%) IN ARTERIAL BLOOD 95.3 % Normal 94.0-98.0 [facility] Comment on above: Performed By: #### L [id number] #### [facility] ([facility]) [address] [place] [address] OXYGENATED HEMOGLOBIN IN BLOOD 93.8 % Normal 90.0-95.0 [facility] Comment on above: Performed By: #### L [id number] #### [facility] ([facility]) [address] [place] [address] pH (Bld) 7.15 [pH] Invalid Interpretation Code 7.35-7.45 [facility] Comment on above: Performed By: #### L [id number] #### [facility] ([facility]) [address] [place] [address] SOURCE OF OXYGEN Room Air [facility] on above: Performed By: #### L [id number] #### [facility] (BEAKER) [address] [place] [address] Base excess Calc (Bld) [Moles/Vol] -18.49880 mmol/L Low -2.0-3.0 [facility] Comment on above: Performed By: #### L [id number] ####[facility] [id number] [place] [address] [place] CARBOXYHEMOGLOBIN/HEM OGLOBIN TOTAL % IN BLOOD 1.7 % Normal 0.0-3.0 [facility] Comment on above: Performed By: #### L [id number] ####[facility] [id number] [place] [address] [facility] [[email or web address]] CO2 (Bld) [Partial pressure] 27 mm[Hg] Low 35-48 [facility] Comment on above: Performed By: #### L [id number] ####[facility] [id number] [place] [address] [facility] [[email or web address]] DEOXYGENATED HEMOGLOBIN IN BLOOD 1.6 % Normal 1-5 [facility] Comment on above: Performed By: #### L [id number] ####[facility] [id number] [place] [address] [facility] [[email or web address]] HCO3 (Bld) [Moles/Vol] 9.0 mmol/L Low 21.0-28.0 [facility] Comment on above: Performed By: #### L [id number] ####[facility] [id number] [place] [address] [facility] [[email or web address]] Hemoglobin (Bld) [Mass/Vol] 9.6 g/dL Low 11.7-17.4 [facility] Comment on above: Performed By: #### L [id number] ####[facility] [id number] [place] [address] [facility] [[email or web address]] METHEMOGLOBIN/100 IN BLOOD 0.8 % Normal 0.0-1.5 [facility] Comment on above: Performed By: #### L [id number] ####[facility] [id number] [place] [address] [place] Oxygen (Bld) [Partial pressure] 98 mm[Hg] Normal 83-100 [facility] Comment on above: Performed By: #### L [id number] ####[facility] [id number] [place] [address] [place] OXYGEN SATURATION (%) IN ARTERIAL BLOOD 98.4 % High 94.0-98.0 [facility] Comment on above: Performed By: #### L [id number] ####[facility] [id number] [place] [address] [place] OXYGENATED HEMOGLOBIN IN BLOOD 95.9 % High 90.0-95.0 [facility] Comment on above: Performed By: #### L [id number] ####[facility] [id number] [place] [address] [place] pH (Bld) 7.13 [pH] Invalid Interpretation Code 7.35-7.45 [facility] Comment on above: Performed By: #### L [id number] ####[facility] [id number] [place] [address] [place] SOURCE OF OXYGEN Room Air Normal [facility] Comment on above: Performed By: #### L [id number] ####[facility] [id number] [place] [address] [place] Base excess Calc (Bld) [Moles/Vol] -19.99959 mmol/L Low -2.0-3.0 [facility] Comment on above: Performed By: #### L [id number] #### [facility] ([facility]) [address] [place] [address] CARBOXYHEMOGLOBIN/HEM OGLOBIN TOTAL % IN BLOOD 1.9 % Normal 0.0-3.0 [facility] Comment on above: Performed By: #### L [id number] #### [facility] ([facility]) [address] [place] [address] CO2 (Bld) [Partial pressure] 30 mm[Hg] Low 35-48 [facility] Comment on above: Performed By: #### L [id number] #### [facility] ([facility]) [address] [place] [address] DEOXYGENATED HEMOGLOBIN IN BLOOD 2.6 % Normal 1-5 [facility] Comment on above: Performed By: #### L [id number] #### [facility] ([facility]) [address] [place] [address] HCO3 (Bld) [Moles/Vol] 8.9 mmol/L Low 21.0-28.0 [facility] Comment on above: Performed By: #### L [id number] #### [facility] ([facility]) [address] [place] [address] Hemoglobin (Bld) [Mass/Vol] 9.8 g/dL Low 11.7-17.4 [facility] Comment on above: Performed By: #### L [id number] #### [facility] ([facility]) [address] [place] [address] METHEMOGLOBIN/100 IN BLOOD 0.7 % Normal 0.0-1.5 [facility] Comment on above: Performed By: #### L [id number] #### [facility] ([facility]) [address] [place] [address] Oxygen (Bld) [Partial pressure] 86 mm[Hg] Normal 83-100 [facility] Comment on above: Performed By: #### L [id number] #### [facility] ([facility]) [address] [place] [address] OXYGEN SATURATION (%) IN ARTERIAL BLOOD 97.3 % Normal 94.0-98.0 [facility] Comment on above: Performed By: #### L [id number] #### [facility] ([facility]) [address] [place] [address] OXYGENATED HEMOGLOBIN IN BLOOD 94.8 % Normal 90.0-95.0 [facility] Comment on above: Performed By: #### L [id number] #### [facility] ([facility]) [address] [place] [address] pH (Bld) 7.08 [pH] Invalid Interpretation Code 7.35-7.45 [facility] Comment on above: Performed By: #### L [id number] #### [facility] (BEAKER) [address] [place] [address] SOURCE OF OXYGEN Room Air Normal [facility] Comment on above: Performed By: #### L [id number] #### [facility] (BEAKER) [address] [place] [address] Base excess Calc (Bld) [Moles/Vol] -19.27856 mmol/L Low -2.0-3.0 [facility] Comment on above: Performed By: #### L [id number] #### [facility] ([facility]) [address] [place] [address] CARBOXYHEMOGLOBIN/HEM OGLOBIN TOTAL % IN BLOOD 1.7 % Normal 0.0-3.0 [facility] Comment on above: Performed By: #### L [id number] #### [facility] (BEAKER) [address] [place] [address] CO2 (Bld) [Partial pressure] 27 mm[Hg] Low 35-48 [facility] Comment on above: Performed By: #### L [id number] #### [facility] (BEAKER) [address] [place] [address] DEOXYGENATED HEMOGLOBIN IN BLOOD 0.1 % Low 1-5 [facility] Comment on above: Performed By: #### L [id number] #### [facility] (BEAKER) [address] [place] [address] HCO3 (Bld) [Moles/Vol] 8.6 mmol/L Low 21.0-28.0 [facility] Comment on above: Performed By: #### L [id number] #### [facility] (BEAKER) [address] [place] [address] Hemoglobin (Bld) [Mass/Vol] 8.0 g/dL Low 11.7-17.4 [facility] Comment on above: Performed By: #### L [id number] #### [facility] (BEAKER) [address] [place] [address] METHEMOGLOBIN/100 IN BLOOD 0.2 % Normal 0.0-1.5 [facility] Comment on above: Performed By: #### L [id number] #### [facility] (BEAKER) [address] [place] [address] Oxygen (Bld) [Partial pressure] 266 mm[Hg] High 83-100 [facility] Comment on above: Performed By: #### L [id number] #### [facility] ([facility]) [address] [place] [address] OXYGEN SATURATION (%) IN ARTERIAL BLOOD 99.9 % High 94.0-98.0 [facility] Comment on above: Performed By: #### L [id number] #### [facility] ([facility]) [address] [address] OXYGENATED HEMOGLOBIN IN BLOOD 98.0 % High 90.0-95.0 [facility] Comment on above: Performed By: #### L [id number] #### [facility] ([facility]) [address] [facility] [address] pH (Bld) 7.11 [pH] Invalid Interpretation Code 7.35-7.45 [facility] Comment on above: Performed By: #### L [id number] #### [facility] ([facility]) [address] [facility] [place] [address] SOURCE OF OXYGEN Non-rebreather mask Normal [facility] Comment on above: Performed By: #### L [id number] #### [facility] ([facility]) [address] [facility] [address] ARTERIAL BLOOD GAS WITH IONI ZED CALCIUMon 11-15-2023 Base excess Calc (Bld) [Moles/Vol] -5.2000 mmol/L Low -2.0-3.0 [facility] Comment on above: Performed By: #### L [id number] #### [facility] (BEAKER) [address] [facility] [place] [address] CALCIUM IONIZED (MMOL/L) IN BLOOD 1.07 mmol/L Low 1.15-1.33 [facility] Comment on above: Performed By: #### L [id number] #### [facility] (BEAKER) [address] [address] CO2 (Bld) [Partial pressure] 32 mm[Hg] Low 35-48 [facility] Comment on above: Performed By: #### L [id number] #### [facility] ([facility]) [address] [place] [address] HCO3 (Bld) [Moles/Vol] 18.9 mmol/L Low 21.0-28.0 [facility] Comment on above: Performed By: #### L [id number] #### [facility] (BEAKER) [address] [place] [address] Oxygen (Bld) [Partial pressure] 78 mm[Hg] Low 83-100 [facility] Comment on above: Performed By: #### L [id number] #### [facility] (BEAKER) [address] [place] [address] OXYGEN SATURATION (%) IN ARTERIAL BLOOD 98.2 % High 94.0-98.0 [facility] Comment on above: Performed By: #### L [id number] #### [facility] (BEAKER) [address] [place] [address] pH (Bld) 7.38 [pH] Normal 7.35-7.45 [facility] Comment on above: Performed By: #### L [id number] #### [facility] (BEAKER) [address] [place] [address] SOURCE OF OXYGEN Room Air Normal [facility] Comment on above: Performed By: #### L [id number] #### [facility] (BEAKER) [address] [place] [address] B-TYPE NATRIURETIC PEPTIDEon 11-15-2023 Natriuretic peptide B (Bld) [Mass/Vol] 165 pg/mL High 0-100 [facility] Comment on above: Performed By: #### L [id number] ####[facility] ([facility]ER)[address] [place] [address] Natriuretic peptide B (Bld) [Mass/Vol] 175 pg/mL High 0-100 [facility] Comment on above: Performed By: #### L [id number] #### [facility] ([facility]) [address] [place] [address] BASIC METABOLIC PANELon 07-0 Anion gap [Moles/Vol] 25 mmol/L High 7-20 [facility] Comment on above: Performed By: #### L [id number] #### [facility] ([facility]) [address] [place] [address] Calcium [Mass/Vol] 7.4 mg/dL Low 8.6-10.3 [facility] Comment on above: Performed By: #### L [id number] #### [facility] ([facility]) [address] [place] [address] Chloride [Moles/Vol] 108 mmol/L High 98-107 [facility] Comment on above: Performed By: #### L [id number] #### [facility] ([facility]) [address] [place] [address] CO2 [Moles/Vol] 22 mmol/L Normal 21-31 [facility] Comment on above: Performed By: #### L [id number] #### [facility] ([facility]) [address] [place] [address] Creatinine [Mass/Vol] 1.33 mg/dL High 0.60-1.20 [facility] Comment on above: Performed By: #### L [id number] #### [facility] ([facility]) [address] [place] [address] GLOMERULAR FILTRATION RATE ML/MIN/1.73 SQ M.PREDICTED 40.7 mL/min/1.73m*2 Low >60.0 [facility] Comment on above: Result Comment: The [facility]???s estimated glomerular filtration rate (eGFR) will no [...] individuals. Performed By: #### L [id number] #### [facility] ([facility]) [address] [place] [address] Glucose [Mass/Vol] 140 mg/dL High 70-100 [facility] Comment on above: Performed By: #### L [id number] #### [facility] ([facility]) [address] [place] [address] Potassium [Moles/Vol] 3.4 mmol/L Low 3.5-5.1 [facility] Comment on above: Performed By: #### L [id number] #### [facility] ([facility]) [address] [place] [address] Sodium [Moles/Vol] 152 mmol/L High 136-145 [facility] Comment on above: Performed By: #### L [id number] #### [facility] ([facility]) [address] [place] [address] Urea nitrogen [Mass/Vol] 30 mg/dL High 7-25 [facility] Comment on above: Performed By: #### L [id number] #### [facility] ([facility]) [address] [place] [address] UREA NITROGEN/CREATININE (MASS RATIO) IN SER/PLAS 22.6 Normal [facility] Comment on above: Performed By: #### L [id number] #### [facility] ([facility]) [address] [place] [address] Anion gap [Moles/Vol] 28 mmol/L High 7-20 [facility] Comment on above: Performed By: #### L [id number] #### [facility] ([facility]) [address] [place] [address] Calcium [Mass/Vol] 6.7 mg/dL Low 8.6-10.3 [facility] Comment on above: Performed By: #### L [id number] #### [facility] ([facility]) [address] [place] [address] Chloride [Moles/Vol] 112 mmol/L High 98-107 [facility] Comment on above: Performed By: #### L [id number] #### [facility] ([facility]) [address] [place] [address] CO2 [Moles/Vol] 10 mmol/L Invalid Interpretation Code [facility] Comment on above: Performed By: #### L [id number] #### [facility] ([facility]) [address] [place] [address] Creatinine [Mass/Vol] 1.18 mg/dL Normal 0.60-1.20 [facility] Comment on above: Performed By: #### L [id number] #### [facility] ([facility]) [address] [place] [address] GLOMERULAR FILTRATION RATE ML/MIN/1.73 SQ M.PREDICTED 47.0 mL/min/1.73m*2 Low >60.0 [facility] Comment on above: Result Comment: The [facility]???s estimated glomerular filtration rate (eGFR) will no [...] individuals. Performed By: #### L [id number] #### [facility] ([facility]) [address] [place] [address] Glucose [Mass/Vol] 239 mg/dL High 70-100 [facility] Comment on above: Performed By: #### L [id number] #### [facility] ([facility]) [address] [place] [address] Potassium [Moles/Vol] 3.7 mmol/L Normal 3.5-5.1 [facility] Comment on above: Performed By: #### L [id number] #### [facility] (BEAKER) [address] [place] [address] Sodium [Moles/Vol] 146 mmol/L High 136-145 [facility] Comment on above: Performed By: #### L [id number] #### [facility] (BEAKER) [address] [place] [address] Urea nitrogen [Mass/Vol] 26 mg/dL High 7-25 [facility] Comment on above: Performed By: #### L [id number] #### [facility] (BEAKER) [address] [place] [address] UREA NITROGEN/CREATININE (MASS RATIO) IN SER/PLAS 22.0 [facility] Comment on above: Performed By: #### L [id number] #### [facility] (BEAKER) [address] [place] [address] Anion gap [Moles/Vol] 16 mmol/L Normal 7-20 [facility] Comment on above: Performed By: #### L [id number] #### [facility] ([facility]) [address] [place] [address] Calcium [Mass/Vol] 7.2 mg/dL Low 8.6-10.3 [facility] Comment on above: Performed By: #### L [id number] #### [facility] (BEAKER) [address] [place] [address] Chloride [Moles/Vol] 113 mmol/L High 98-107 [facility] Comment on above: Performed By: #### L [id number] #### [facility] ([facility]) [address] [place] [address] CO2 [Moles/Vol] 18 mmol/L Low 21-31 [facility] Comment on above: Performed By: #### L [id number] #### [facility] ([facility]) [address] [place] [address] Creatinine [Mass/Vol] 1.00 mg/dL Normal 0.60-1.20 [facility] Comment on above: Performed By: #### L [id number] #### [facility] ([facility]) [address] [place] [address] GLOMERULAR FILTRATION RATE ML/MIN/1.73 SQ M.PREDICTED 57.3 mL/min/1.73m*2 Low >60.0 [facility] Comment on above: Result Comment: The [facility]???s estimated glomerular filtration rate (eGFR) will no [...] individuals. Performed By: #### L [id number] #### [facility] ([facility]) [address] [place] [address] Glucose [Mass/Vol] 205 mg/dL High 70-100 [facility] Comment on above: Performed By: #### L [id number] #### [facility] ([facility]) [address] [place] [address] Potassium [Moles/Vol] 3.9 mmol/L Normal 3.5-5.1 [facility] Comment on above: Performed By: #### L [id number] #### [facility] ([facility]) [address] [place] [address] Sodium [Moles/Vol] 143 mmol/L Normal 136-145 [facility] Comment on above: Performed By: #### L [id number] #### [facility] ([facility]) [address] [place] [address] Urea nitrogen [Mass/Vol] 27 mg/dL High 7-25 [facility] Comment on above: Performed By: #### L [id number] #### [facility] ([facility]) [address] [place] [address] UREA NITROGEN/CREATININE (MASS RATIO) IN SER/PLAS 27.0 Normal [facility] Comment on above: Performed By: #### L [id number] #### [facility] ([facility]) [address] [facility] [place] [address] BETA HYDROXYBUTYRATEon 11-14 BETA HYDROXYBUTYRATE (MMOL/L) IN SER/PLAS 0.31 mmol/L High 0.02-0.27 [facility] Comment on above: Performed By: #### L [id number] #### [facility] ([facility]) [address] [place] [address] BLOOD CULTUREon 11-15-2023 Bacteria identified Cx Nom (Bld) No growth at 5 days Normal [facility] Comment on above: Order Comment: From a different site than #1. Performed By: #### L [id number] #### [facility] ([facility]) [address] [place] [address] Bacteria identified Cx Nom (Bld) No growth at 5 days Normal [facility] Comment on above: Performed By: #### L [id number] #### [facility] ([facility]) [address] [place] [address] CALCIUM, IONIZEDon CALCIUM IONIZED (MMOL/L) IN BLOOD 1.09 mmol/L Low 1.15-1.33 [facility] Comment on above: Performed By: #### L [id number] #### [facility] ([facility]) [address] [place] [address] CALCIUM IONIZED (MMOL/L) IN BLOOD 1.05 mmol/L Low 1.15-1.33 [facility] Comment on above: Performed By: #### L [id number] #### [facility] ([facility]) [address] [place] [address] CALCIUM IONIZED (MMOL/L) IN BLOOD 1.06 mmol/L Low 1.15-1.33 [facility] Comment on above: Performed By: #### L [id number] #### [facility] (BEAKER) [address] [place] [address] CALCIUM IONIZED (MMOL/L) IN BLOOD 1.12 mmol/L Low 1.15-1.33 [facility] Comment on above: Performed By: #### L [id number] #### [facility] ([facility]) [address] [place] [address] CBCon 11-15-2023 Erythrocyte distribution width (RBC) [Ratio] 21.2 % High 11.5-15.0 [facility] Comment on above: Performed By: #### L [id number] ####[facility] ([facility])[address] [place] [address] ERYTHROCYTE MEAN CORPUSCULAR HEMOGLOBIN CONCENTRATION (G/DL) BY AUTOMATED 33.3 g/dL Normal 32.0-35.0 [facility] Comment on above: Performed By: #### L [id number] ####[facility] ([facility])[address] [place] [address] Hematocrit (Bld) [Volume fraction] 21.9 % Low 36.0-48.0 [facility] Comment on above: Performed By: #### L [id number] ####[facility] ([facility])[address] [place] [address] Hemoglobin (Bld) [Mass/Vol] 7.3 g/dL Low 12.0-15.0 [facility] Comment on above: Performed By: #### L [id number] ####[facility] ([facility])[address] [place] [address] IMMATURE PLATELET FRACTION % 9.7 % High 0.8-6.3 [facility] Comment on above: Performed By: #### L [id number] ####[facility] ([facility])[address] [place] [address] MCH (RBC) [Entitic mass] 28.5 pg Normal 27.0-33.0 [facility] Comment on above: Performed By: #### L [id number] ####[facility] ([facility])[address] [place] [address] MCV (RBC) [Entitic vol] 85.5 fL Normal 82.0-98.0 [facility] Comment on above: Performed By: #### L [id number] ####[facility] ([facility])[address] [place] [address] PLATELETS (10*3/UL) IN BLOOD AUTOMATED COUNT 115 10*3/uL Low 150-400 [facility] Comment on above: Performed By: #### L [id number] ####[facility] ([facility])[address] [place] [address] RBC (Bld) [#/Vol] 2.56 10*6/uL Low 3.80-5.[address] [facility] Comment on above: Performed By: #### L [id number] ####[facility] ([facility])[address] [place] [address] WBC (Bld) [#/Vol] 34.01 10*3/uL High 4.00-10.60 [facility] Comment on above: Performed By: #### L [id number] ####[facility] ([facility])[address] [place] [place] [address] Erythrocyte distribution width (RBC) [Ratio] 21.1 % High 11.5-15.0 [facility] Comment on above: Performed By: #### L [id number] #### [facility] ([facility]) [address] [place] [address] ERYTHROCYTE MEAN CORPUSCULAR HEMOGLOBIN CONCENTRATION (G/DL) BY AUTOMATED 32.2 g/dL Normal 32.0-35.0 [facility] Comment on above: Performed By: #### L [id number] #### [facility] ([facility]) [address] [place] [address] Hematocrit (Bld) [Volume fraction] 25.8 % Low 36.0-48.0 [facility] Comment on above: Result Comment: Pt i s in surgery on 11/15/23 Performed By: #### L [id number] #### [facility] ([facility]) [address] [place] [address] Hemoglobin (Bld) [Mass/Vol] 8.3 g/dL Low 12.0-15.0 [facility] Comment on above: Performed By: #### L [id number] #### [facility] ([facility]) [address] [place] [address] MCH (RBC) [Entitic mass] 27.9 pg Normal 27.0-33.0 [facility] Comment on above: Performed By: #### L [id number] #### [facility] ([facility]) [address] [place] [address] MCV (RBC) [Entitic vol] 86.6 fL Normal 82.0-98.0 [facility] Comment on above: Performed By: #### L [id number] #### [facility] ([facility]) [address] [place] [address] PLATELETS (10*3/UL) IN BLOOD AUTOMATED COUNT 238 10*3/uL Normal 150-400 [facility] Comment on above: Performed By: #### L [id number] #### [facility] ([facility]) [address] [place] [address] RBC (Bld) [#/Vol] 2.98 10*6/uL Low 3.80-5.[address] [facility] Comment on above: Performed By: #### L [id number] #### [facility] ([facility]) [address] [place] [address] WBC (Bld) [#/Vol] 16.89 10*3/uL High 4.00-10.60 [facility] Comment on above: Performed By: #### L [id number] #### [facility] ([facility]) [address] [place] [address] CBC WITH AUTO DIFFERENTIALon 11-15-2023 Erythrocyte distribution width (RBC) [Ratio] 20.5 % High 11.5-15.0 [facility] Comment on above: Performed By: #### L [id number] #### [facility] ([facility]) [address] [place] [address] ERYTHROCYTE MEAN CORPUSCULAR HEMOGLOBIN CONCENTRATION (G/DL) BY AUTOMATED 30.3 g/dL Low 32.0-35.0 [facility] Comment on above: Performed By: #### L [id number] #### [facility] ([facility]) [address] [place] [address] Hematocrit (Bld) [Volume fraction] 32.0 % Low 36.0-48.0 [facility] Comment on above: Performed By: #### L [id number] #### [facility] ([facility]) [address] [place] [address] Hemoglobin (Bld) [Mass/Vol] 9.7 g/dL Low 12.0-15.0 [facility] Comment on above: Performed By: #### L [id number] #### [facility] ([facility]) [address] [place] [address] MCH (RBC) [Entitic mass] 27.6 pg Normal 27.0-33.0 [facility] Comment on above: Performed By: #### L [id number] #### [facility] ([facility]) [address] [address] MCV (RBC) [Entitic vol] 90.9 fL Normal 82.0-98.0 [facility] Comment on above: Performed By: #### L [id number] #### [facility] ([facility]) [address] [place] [address] NRBC (PER 100 WBCS) BY AUTOMATED COUNT 0.5 % High 0 [facility] Comment on above: Performed By: #### L [id number] #### [facility] ([facility]) [address] [place] [address] PLATELETS (10*3/UL) IN BLOOD AUTOMATED COUNT 207 10*3/uL Normal 150-400 [facility] Comment on above: Performed By: #### L [id number] #### [facility] ([facility]) [address] [place] [address] RBC (Bld) [#/Vol] 3.52 10*6/uL Low 3.80-5.[address] [facility] Comment on above: Performed By: #### L [id number] #### [facility] ([facility]) [address] [place] [address] WBC (Bld) [#/Vol] 34.34 10*3/uL High 4.00-10.60 [facility] Comment on above: Performed By: #### L [id number] #### [facility] ([facility]) [address] [place] [address] CLOSTRIDIOIDES DIFFICILE DNA AMPLIFICATIONon 11-15-2023 CLOSTRIDIOIDES DIFFICILE (TOXIN A/B) Negative Normal Negative [facility] Comment on above: Order Comment: Testi ng methodology is an in vitro diagnostic test for the direct, qualitative detection of the Clostridioides difficile Toxin A gene (tcdA) in unformed stool specimens of patients suspected of having Clostridioides difficile-infection (CDI). The [employer] C. difficile Assay is intended for use as an aid in diagnosis of CDI. The assay utilizes helicase-dependent amplification (HDA) for the amplification of a highly conserved fragment of the Toxin A gene sequence. Performed By: #### L [id number] #### [facility] ([facility]) [address] [place] [address] CONSULTon 11-15-2023 CONSULT Surgical Intensive Care Unit Consult Note Reason For Consult: Postop hypotension Referring Physician: Ortho team Date and time of consultation: 11/15/2023 0100 Chief Complaint: Critical Care Management HPI: 78 y.o. year old female who presented as a direct admission from [facility] on 11/14/2023. Patient sustained a fall which [...] past medical history of Anemia, Atrial fibrillation ([facility]), Calcaneal spur of both feet, Cataracts, bilateral, CHF (congestive heart failure) ([facility]), Chronic pain, Cognitive communication deficit, Delusional disorder ([facility]), Dementia ([facility]), Depression, Fall (11/13/2023), Femur fracture, left ([facility]) (11/13/2023), Generalized weakness, GERD (gastroesophageal reflux disease), History of COVID-19, Hypertension, Hypothyroid, Insomnia, OA (osteoarthritis), Obesity, PVD (peripheral vascular disease) ([facility]), Renal failure, Sick sinus syndrome ([facility]), and Tinea unguium. Past Surgical History: has [...] use. Family History: pulled available information in [facility] from previous visits No family history on file. Objective Vitals: BP: (100-115)/(62-65) 113/62 (11/13 1724) Temp: [36 ???C (96.8 ???F)-36.7 ???C (98.1 ???F)] 36 ???C (96.8 ???F) (11/13 2254) Temp Source: Temporal (11/13 2254) Heart Rate: [98-123] 115 (11/14 015) Resp: [16-20] 16 (11/14 114) SpO2: [93 %-100 %] 9 (more content not included)... Normal [facility] HEPATIC FUNCTION PANELon Albumin [Mass/Vol] 2.1 g/dL Low 3.5-5.7 [facility] Comment on above: Performed By: #### L [id number] #### [facility] ([facility]) [address] [place] [address] ALP [Catalytic activity/Vol] 65 U/L Normal 34-104 [facility] Comment on above: Performed By: #### L [id number] #### [facility] ([facility]) [address] [place] [address] ALT [Catalytic activity/Vol] 647 U/L High 7-52 [facility] Comment on above: Performed By: #### L [id number] #### [facility] ([facility]) [address] [place] [address] AST [Catalytic activity/Vol] 1580 U/L High 13-39 [facility] Comment on above: Performed By: #### L [id number] #### [facility] ([facility]) [address] [place] [address] Bilirubin [Mass/Vol] 1.0 mg/dL Normal 0.3-1.0 [facility] Comment on above: Performed By: #### L [id number] #### [facility] ([facility]) [address] [place] [address] Magnesium [Mass/Vol] 0.5 mg/dL High 0-0.2 [facility] Comment on above: Performed By: #### L [id number] #### [facility] ([facility]) [address] [place] [address] Protein [Mass/Vol] 3.2 g/dL Low 6.0-8.3 [facility] Comment on above: Performed By: #### L [id number] #### [facility] ([facility]) [address] [place] [address] LACTIC ACID WITH 4 HOUR REFL EXon 11-15-2023 LACTATE (MMOL/L) IN SER/PLAS 13.2 mmol/L Critically high 0.5-2.2 [facility] Comment on above: Result Comment: M-NC EVIOUS CRITICAL RESULT Previous result verified on 11/15/2023 1231 on specimen/case [id number] called with component Lactate for procedure Lactic acid, plasma with value 16.9 mmol/L. Performed By: #### L [id number] #### [facility] ([facility]) [address] [place] [address] LACTIC ACID, PLASMAon 2023 LACTATE (MMOL/L) IN SER/PLAS 16.9 mmol/L Critically high 0.5-2.2 [facility] Comment on above: Result Comment: Prev ious result verified on 11/15/2023 1055 on specimen/case [id number] called with component Lactate for procedure Lactic acid, plasma with value 17.0 mmol/L. Performed By: #### L [id number] #### [facility] ([facility]) [address] [place] [address] LACTATE (MMOL/L) IN SER/PLAS 17.0 mmol/L Critically high 0.5-2.2 [facility] Comment on above: Performed By: #### L [id number] #### [facility] ([facility]) [address] [place] [address] MAGNESIUMon 11-15-2023 Magnesium [Mass/Vol] 2.5 mg/dL Normal 1.9-2.7 [facility] Comment on above: Performed By: #### L [id number] #### [facility] ([facility]) [address] [place] [address] Magnesium [Mass/Vol] 1.6 mg/dL Low 1.9-2.7 [facility] Comment on above: Performed By: #### L [id number] #### [facility] ([facility]) [address] [place] [address] MANUAL DIFFERENTIALon 2023 ANISOCYTOSIS PRESENCE IN BLOOD BY LIGHT MICROSCOPY Moderate Normal [facility] Comment on above: Performed By: #### L [id number] #### [facility] ([facility]) [address] [place] [address] BASOPHILS (10*3/UL) IN BLOOD BY CALCULATION 0.00 10*3/uL Normal 0.00-0.20 [facility] Comment on above: Performed By: #### L [id number] #### [facility] ([facility]) [address] [place] [address] BASOPHILS/100 LEUKOCYTES IN BLOOD BY AUTOMATED COUNT 0.0 % Normal 0.0-1.0 [facility] Comment on above: Performed By: #### L [id number] #### [facility] ([facility]) [address] [facility] [address] EOSINOPHILS (10*3/UL) IN BLOOD BY CALCULATION 0.00 10*3/uL Normal 0.00-0.50 [facility] Comment on above: Performed By: #### L [id number] #### [facility] ([facility]) [address] [place] [address] EOSINOPHILS/100 LEUKOCYTES IN BLOOD BY AUTOMATED COUNT 0.0 % Normal 0.0-6.0 [facility] Comment on above: Performed By: #### L [id number] #### [facility] ([facility]) [address] [place] [address] LYMPHOCYTES (10*3/UL) IN BLOOD BY CALCULATION 2.51 10*3/uL Normal 1.20-4.00 [facility] Comment on above: Performed By: #### L [id number] #### [facility] ([facility]) [address] [place] [address] LYMPHOCYTES/100 LEUKOCYTES IN BLOOD BY AUTOMATED COUNT 7.3 % Low 20.0-45.0 [facility] Comment on above: Performed By: #### L [id number] #### [facility] ([facility]) [address] [place] [address] MONOCYTES (10*3/UL) IN BLOOD BY CALCUATION 0.93 10*3/uL Normal 0.10-1.00 [facility] Comment on above: Performed By: #### L [id number] #### [facility] ([facility]) [address] [place] [address] MONOCYTES/100 LEUKOCYTES IN BLOOD BY AUTOMATED COUNT 2.7 % Low 5.0-12.0 [facility] Comment on above: Performed By: #### L [id number] #### [facility] ([facility]) [address] [place] [address] MYELOCYTES (10*3/UL) IN BLOOD BY CALCULATION 0.93 10*3/uL High 0.00 [facility] Comment on above: Performed By: #### L [id number] #### [facility] ([facility]) [address] [place] [address] MYELOCYTES/100 LEUKOCYTES IN BLOOD CELLAVISION 2.7 % High 0.0-0.0 [facility] Comment on above: Performed By: #### L [id number] #### [facility] ([facility]) [address] [place] [address] NEUTROPHILS (10*3/UL) IN BLOOD BY CALCULATION 30.0 10*3/uL High 1.6-7.6 [facility] Comment on above: Performed By: #### L [id number] #### [facility] ([facility]) [address] [place] [address] NEUTROPHILS/100 LEUKOCYTES IN BLOOD BY AUTOMATED COUNT 87.3 % High 40.0-72.0 [facility] Comment on above: Performed By: #### L [id number] #### [facility] ([facility]) [address] [place] [address] PLASMA CELLS/100 LEUKOCYTES IN BLOOD 0 % Normal 0 [facility] Comment on above: Performed By: #### L [id number] #### [facility] ([facility]) [address] [place] [address] PLATELETS GIANT PRESENCE IN BLOOD BY LIGHT MICROSCOPY Present Normal [facility] Comment on above: Performed By: #### L [id number] #### [facility] ([facility]) [address] [place] [address] POIKILOCYTOSIS (PRESENCE) IN BLOOD BY LIGHT MICROSCOPY Slight Normal [facility] Comment on above: Performed By: #### L [id number] #### [facility] ([facility]) [address] [place] [address] POLYCHROMASIA IN BLOOD BY LIGHT MICROSCOPY Slight Normal [facility] Comment on above: Performed By: #### L [id number] #### [facility] ([facility]) [address] [place] [address] SMUDGE CELLS/100 LEUKOCYTES IN BLOOD CELLAVISION Present Normal [facility] Comment on above: Performed By: #### L [id number] #### [facility] ([facility]) [address] [place] [address] VARIANT LYMPHOCYTES (10*3/UL) IN BLOOD BY CALCULATION 0.00 10*3/uL Normal 0.00 [facility] Comment on above: Performed By: #### L [id number] #### [facility] ([facility]) [address] [place] [address] VARIANT LYMPHOCYTES/100 LEUKOCYTES IN BLOOD CELLAVISION 0.0 % Normal 0.0-0.0 [facility] Comment on above: Performed By: #### L [id number] #### [facility] ([facility]) [address] [place] [address] Karla 11-15-2023 KATT PICC Rn spoke with [...] SICU lead RN aware of plan. Normal [facility] PATRICEE PICC RN aware of PIC C [...] line. PT RN aware of plan. Normal [facility] PHOSPHORUSon 11-15-2023 Magnesium [Mass/Vol] 8.6 mg/dL High 2.5-5.0 [facility] Comment on above: Performed By: #### L [id number] #### [facility] ([facility]) [address] [place] [address] Magnesium [Mass/Vol] 6.0 mg/dL High 2.5-5.0 [facility] Comment on above: Performed By: #### L [id number] #### [facility] ([facility]) [address] [place] [address] POCT GLUCOSE METER UNSOLICIT ED RESULTSon 11-15-2023 Glucose [Mass/Vol] 165 mg/dL High 70-105 [facility] Comment on above: Order Comment: Waive d Testing in the ED is performed under the ED CLIA certificate #[id number]. Result Comment: karine [email or web address] Performed By: #### L [id number] ####[facility] ([facility])[address] [place] [address] Glucose [Mass/Vol] 208 mg/dL High 70-105 [facility] Comment on above: Order Comment: Waive d Testing in the ED is performed under the ED CLIA certificate #[id number]. Result Comment: mmcc vargas Performed By: #### L [id number] #### [facility] ([facility]) [address] [place] [address] POCT PERFUSION PANEL UNSOLIC ITED RESULTSon 11-15-2023 CO2 [Moles/Vol] 20.0 mmol/L Low 21.0-29.[address] [facility] Comment on above: Performed By: #### L [id number] #### [facility] ([facility]) [address] [place] [address] Glucose [Mass/Vol] 210 mg/dL High 70-105 [facility] Comment on above: Performed By: #### L [id number] #### [facility] ([facility]) [address] [place] [address] HCO3 (Bld) [Moles/Vol] 18.9 mmol/L Low 23.0-28.0 [facility] Comment on above: Performed By: #### L [id number] #### [facility] ([facility]) [address] [place] [address] Hematocrit (Bld) [Volume fraction] 26 % Low 38-51 [facility] Comment on above: Performed By: #### L [id number] #### [facility] ([facility]) [address] [place] [address] Hemoglobin (Bld) [Mass/Vol] 8.8 g/dL Low 12.0-17.0 [facility] Comment on above: Performed By: #### L [id number] #### [facility] ([facility]) [address] [place] [address] POCT BASE EXCESS -7.0 mmol/L Low -2.0-3.0 [facility] Comment on above: Performed By: #### L [id number] #### [facility] ([facility]) [address] [place] [address] POCT IONIZED CALCIUM 1.15 mmol/L Normal 1.12-1.32 [facility] Comment on above: Performed By: #### L [id number] #### [facility] ([facility]) [address] [place] [address] POCT PCO2 39.7 mmHg Low 41.0-51.0 [facility] Comment on above: Performed By: #### L [id number] #### [facility] ([facility]) [address] [place] [address] POCT PH 7.29 Low 7.31-7.41 [facility] Comment on above: Performed By: #### L [id number] #### [facility] ([facility]) [address] [place] [address] POCT PO2 68 mmHg Low 80-105 [facility] Comment on above: Performed By: #### L [id number] #### [facility] ([facility]) [address] [place] [address] POCT SO2 91 % Low 95-98 [facility] Comment on above: Performed By: #### L [id number] #### [facility] ([facility]) [address] [place] [address] Potassium [Moles/Vol] 3.8 mmol/L Normal 3.5-4.9 [facility] Comment on above: Performed By: #### L [id number] #### [facility] ([facility]) [address] [place] [address] Sodium [Moles/Vol] 142 mmol/L Normal 138.0-146.[address] [facility] Comment on above: Performed By: #### L [id number] #### [facility] ([facility]) [address] [place] [address] POTASSIUM, WHOLE BLOODon Potassium [Moles/Vol] 3.1 mmol/L Low 3.5-5.1 [facility] Comment on above: Performed By: #### L [id number] #### [facility] ([facility]) [address] [place] [address] Potassium [Moles/Vol] 3.9 mmol/L Normal 3.5-5.1 [facility] Comment on above: Performed By: #### L [id number] #### [facility] ([facility]) [address] [place] [address] Potassium [Moles/Vol] 3.8 mmol/L Normal 3.5-5.1 [facility] Comment on above: Performed By: #### L [id number] #### [facility] ([facility]) [address] [place] [address] Potassium [Moles/Vol] 5.1 mmol/L Normal 3.5-5.1 [facility] Comment on above: Performed By: #### L [id number] #### [facility] (SANDRA) [address] [place] [address] PROTIME-INRon 11-15-2023 INR IN PPP BY COAGULATION ASSAY 11.87 Critically high 0.90-1.10 [facility] Comment on above: Result Comment: [facility] P RECOMMENDED INR FOR WARFARIN THERAPY CONDITION [...] 1995;108:231S-246S. Performed By: #### L [id number] #### [facility] (BE[facility]SEPH) [address] [place] [address] PROTHROMBIN TIME (PT) IN PPP BY COAGULATION ASSAY 92.6 Seconds Critically high 12.3-14.8 [facility] Comment on above: Performed By: #### L [id number] #### [facility] ([facility]) [address] [place] [address] INR IN PPP BY COAGULATION ASSAY 12.96 Critically high 0.90-1.10 [facility] Comment on above: Result Comment: [facility] P RECOMMENDED INR FOR WARFARIN THERAPY CONDITION [...] 1995;108:231S-246S. Performed By: #### L [id number] #### [facility] ([facility]) [address] [place] [address] PROTHROMBIN TIME (PT) IN PPP BY COAGULATION ASSAY 99.2 Seconds Critically high 12.3-14.8 [facility] Comment on above: Performed By: #### L [id number] #### [facility] [facility] ([facility]) [address] [place] [address] SODIUM, WHOLE BLOODon 2023 SODIUM, WHOLE BLOOD 143 Normal 136-145 [facility] Comment on above: Performed By: #### L [id number] #### [facility] ([facility]) [address] [facility] [place] [address] SODIUM, WHOLE BLOOD 142 Normal 136-145 [facility] Comment on above: Performed By: #### S ODIUM, WHOLE BLOOD ####[facility]IR[facility] [id number] [place] [place] [address] [facility] [[email or web address]] SODIUM, WHOLE BLOOD 140 Normal 136-145 [facility] Comment on above: Performed By: #### L [id number] #### [facility] ([facility]) [address] [place] [address] SODIUM, WHOLE BLOOD 138 Normal 136-145 [facility] Comment on above: Performed By: #### L [id number] #### [facility] ([facility]) [address] [place] [address] TROPONIN Ion 11-15-2023 Troponin I.cardiac [Mass/Vol] 0.10 ng/mL High 0.00-0.04 [facility] Comment on above: Performed By: #### L [id number] #### [facility] ([facility]) [address] [place] [address] VANCOMYCIN, PEAKon VANCOMYCIN (UG/ML) IN SER/PLAS - PEAK 21.0 ug/mL Normal 20.0-50.0 [facility] Comment on above: Performed By: #### L [id number] ####[facility] ([facility])[address] [place] [address] VITAMIN D 25 HYDROXYon 11-14 CALCIDIOL (25 [place] VITAMIN D3) (NG/ML) IN SER/PLAS 26.1 ng/mL Low 30.0-80.0 [facility] Comment on above: Result Comment: >80. 0 Toxicity possible Performed By: #### L [id number] #### [facility] ([facility]) [address] [place] [address] 30on 11-14-2023 30 Daily Case Managemen t Update Multidisciplinary rounds have been completed. Barriers to Discharge: Pending Clinical course. S/p fall. Planning ORIF Left femur to day with ortho. Pt/ot ordered for POD 1. Confused. From [facility]. Diet: Dietary Orders (From admission, onward) [...] Select all services needed for the patient [facility] (30 day convalescent stay) Please indicate your approval for this care by adding your name here: FRAN LANDRY 11/13/232303 Therapy Orders (From admission, onward) Start Ordered 11/13/232248 OT eval and treat Until therapy completed Question: Reason for OT? Answer: Trauma 11/13/23 2304 11/13/232248 PT eval and treat Until therapy completed Question: Reason for PT? Answer: Trauma 11/13/232303 Normal [facility] 30 The patient is Moderately Stable - [...] and maintained or improved Outcome: Progressing Normal [facility] ARTERIAL BLOOD GAS WITH CO-O XIMETRYon 11-14-2023 Base excess Calc (Bld) [Moles/Vol] 2.2 mmol/L Normal -2.0-3.0 [facility] Comment on above: Order Comment: Pt in tubated in OR Performed By: #### L [id number] ####[facility] [id number] [place] [address] [facility] [[email or web address]] CARBOXYHEMOGLOBIN/HEM OGLOBIN TOTAL % IN BLOOD 1.5 % Normal 0.0-3.0 [facility] Comment on above: Order Comment: Pt in tubated in OR Performed By: #### L [id number] ####[facility] RESPIRATORY [id number] [place] [address] [place] CO2 (Bld) [Partial pressure] 39 mm[Hg] Normal 35-48 [facility] Comment on above: Order Comment: Pt in tubated in OR Performed By: #### L [id number] ####[facility] [id number] [place] [address] [place] DEOXYGENATED HEMOGLOBIN IN BLOOD 0.9 % Low 1-5 [facility] Comment on above: Order Comment: Pt in tubated in OR Performed By: #### L [id number] ####[facility] [id number] [place] [address] [place] HCO3 (Bld) [Moles/Vol] 26.5 mmol/L Normal 21.0-28.0 [facility] Comment on above: Order Comment: Pt in tubated in OR Performed By: #### L [id number] ####[facility] [id number] [place] [address] [place] Hemoglobin (Bld) [Mass/Vol] 9.0 g/dL Low 11.7-17.4 [facility] Comment on above: Order Comment: Pt in tubated in OR Performed By: #### L [id number] ####[facility]IR[facility] [id number] [place] [address] [place] METHEMOGLOBIN/100 IN BLOOD 0.2 % Normal 0.0-1.5 [facility] Comment on above: Order Comment: Pt in tubated in OR Performed By: #### L [id number] ####[facility] RESPIRAT[facility] [id number] [place] [address] [place] Oxygen (Bld) [Partial pressure] 125 mm[Hg] High 83-100 [facility] Comment on above: Order Comment: Pt in tubated in OR Performed By: #### L [id number] ####[facility] RESPIR[facility] [id number] [place] [address] [place] OXYGEN SATURATION (%) IN ARTERIAL BLOOD 99.1 % High 94.0-98.0 [facility] Comment on above: Order Comment: Pt in tubated in OR Performed By: #### L [id number] ####[facility] RESPIRAT[facility] [id number] [place] [address] [place] OXYGENATED HEMOGLOBIN IN BLOOD 97.4 % High 90.0-95.0 [facility] Comment on above: Order Comment: Pt in tubated in OR Performed By: #### L [id number] ####[facility] [id number] [address] [facility] [[email or web address]] pH (Bld) 7.44 [pH] Normal 7.35-7.45 [facility] Comment on above: Order Comment: Pt in tubated in OR Performed By: #### L [id number] ####[facility]PIR[facility] [id number] [place] [address] [facility] [[email or web address]] SOURCE OF OXYGEN Vent Normal [facility] Comment on above: Order Comment: Pt in tubated in [place] Performed By: #### L [id number] ####[facility]IR[facility] [id number] [place] [address] [facility] [[email or web address]] Base excess Calc (Bld) [Moles/Vol] 7.0 mmol/L High -2.0-3.0 [facility] Comment on above: Performed By: #### L [id number] #### [facility] ([facility]) [address] [place] [address] CARBOXYHEMOGLOBIN/HEM OGLOBIN TOTAL % IN BLOOD 1.4 % Normal 0.0-3.0 [facility] Comment on above: Performed By: #### L [id number] #### [facility] ([facility]) [address] [place] [address] CO2 (Bld) [Partial pressure] 33 mm[Hg] Low 35-48 [facility] Comment on above: Performed By: #### L [id number] #### [facility] ([facility]) [address] [place] [address] DEOXYGENATED HEMOGLOBIN IN BLOOD 1.2 % Normal 1-5 [facility] Comment on above: Performed By: #### L [id number] #### [facility] ([facility]) [address] [place] [address] HCO3 (Bld) [Moles/Vol] 29.5 mmol/L High 21.0-28.0 [facility] Comment on above: Performed By: #### L [id number] #### [facility] ([facility]) [address] [place] [address] Hemoglobin (Bld) [Mass/Vol] 9.7 g/dL Low 11.7-17.4 [facility] Comment on above: Performed By: #### L [id number] #### [facility] ([facility]) [address] [place] [address] METHEMOGLOBIN/100 IN BLOOD 0.7 % Normal 0.0-1.5 [facility] Comment on above: Performed By: #### L [id number] #### [facility] ([facility]) [address] [place] [address] Oxygen (Bld) [Partial pressure] 135 mm[Hg] High 83-100 [facility] Comment on above: Performed By: #### L [id number] #### [facility] ([facility]) [address] [place] [address] OXYGEN SATURATION (%) IN ARTERIAL BLOOD 98.8 % High 94.0-98.0 [facility] Comment on above: Performed By: #### L [id number] #### [facility] ([facility]) [address] [place] [address] OXYGENATED HEMOGLOBIN IN BLOOD 96.7 % High 90.0-95.0 [facility] Comment on above: Performed By: #### L [id number] #### [facility] ([facility]) [address] [place] [address] pH (Bld) 7.56 [pH] Critically high 7.35-7.45 [facility] Comment on above: Performed By: #### L [id number] #### [facility] ([facility]) [address] [place] [address] SOURCE OF OXYGEN Vent Normal [facility] Comment on above: Performed By: #### L [id number] #### [facility] ([facility]) [address] [place] [address] BASIC METABOLIC PANELon 07-0 Anion gap [Moles/Vol] 12 mmol/L Normal 7-20 [facility] Comment on above: Performed By: #### L [id number] #### [facility] ([facility]) [address] [place] [address] Calcium [Mass/Vol] 7.4 mg/dL Low 8.6-10.3 [facility] Comment on above: Performed By: #### L [id number] #### [facility] ([facility]) [address] [place] [address] Chloride [Moles/Vol] 105 mmol/L Normal 98-107 [facility] Comment on above: Performed By: #### L [id number] #### [facility] ([facility]) [address] [place] [address] CO2 [Moles/Vol] 31 mmol/L Normal 21-31 [facility] Comment on above: Performed By: #### L [id number] #### [facility] ([facility]) [address] [place] [address] Creatinine [Mass/Vol] 0.91 mg/dL Normal 0.60-1.20 [facility] Comment on above: Performed By: #### L [id number] #### [facility] ([facility]) [address] [place] [address] GLOMERULAR FILTRATION RATE ML/MIN/1.73 SQ M.PREDICTED 64.2 mL/min/1.73m*2 Normal >60.0 [facility] Comment on above: Result Comment: The [facility]???s estimated glomerular filtration rate (eGFR) will no [...] individuals. Performed By: #### L [id number] #### [facility] ([facility]) [address] [place] [address] Glucose [Mass/Vol] 120 mg/dL High 70-100 [facility] Comment on above: Performed By: #### L [id number] #### [facility] ([facility]) [address] [place] [address] Potassium [Moles/Vol] 4.1 mmol/L Normal 3.5-5.1 [facility] Comment on above: Performed By: #### L [id number] #### [facility] ([facility]) [address] [place] [address] Sodium [Moles/Vol] 144 mmol/L Normal 136-145 [facility] Comment on above: Performed By: #### L [id number] #### [facility] ([facility]) [address] [place] [address] Urea nitrogen [Mass/Vol] 24 mg/dL Normal 7-25 [facility] Comment on above: Performed By: #### L [id number] #### [facility] ([facility]) [address] [place] [address] UREA NITROGEN/CREATININE (MASS RATIO) IN SER/PLAS 26.4 Normal [facility] Comment on above: Performed By: #### L [id number] #### [facility] ([facility]) [address] [place] [address] CALCIUM, IONIZEDon CALCIUM IONIZED (MMOL/L) IN BLOOD 1.17 mmol/L Normal 1.15-1.33 [facility] Comment on above: Performed By: #### L [id number] #### [facility] ([facility]) [address] [place] [address] CBC WITH AUTO DIFFERENTIALon 11-14-2023 Basophils (Bld) [#/Vol] 0.03 10*3/uL Normal 0.00-0.20 [facility] Comment on above: Performed By: #### L [id number] #### [facility] ([facility]) [address] [place] [address] Basophils/100 WBC (Bld) 0.4 % Normal 0.0-1.0 [facility] Comment on above: Performed By: #### L [id number] #### [facility] ([facility]) [address] [place] [address] Eosinophils (Bld) [#/Vol] 0.00 10*3/uL Normal 0.00-0.50 [facility] Comment on above: Performed By: #### L [id number] #### [facility] ([facility]) [address] [place] [address] Eosinophils/100 WBC (Bld) 0.0 % Normal 0.0-6.0 [facility] Comment on above: Performed By: #### L [id number] #### [facility] ([facility]) [address] [place] [address] Erythrocyte distribution width (RBC) [Ratio] 16.0 % High 11.5-15.0 [facility] Comment on above: Performed By: #### L [id number] #### [facility] ([facility]) [address] [place] [address] ERYTHROCYTE MEAN CORPUSCULAR HEMOGLOBIN CONCENTRATION (G/DL) BY AUTOMATED 30.2 g/dL Low 32.0-35.0 [facility] Comment on above: Performed By: #### L [id number] #### [facility] ([facility]) [address] [place] [address] Hematocrit (Bld) [Volume fraction] 32.1 % Low 36.0-48.0 [facility] Comment on above: Performed By: #### L [id number] #### [facility] ([facility]) [address] [place] [address] Hemoglobin (Bld) [Mass/Vol] 9.7 g/dL Low 12.0-15.0 [facility] Comment on above: Performed By: #### L [id number] #### [facility] (BEAKER) [address] [place] [address] Immature granulocytes (Bld) [#/Vol] 0.07 10*3/uL Normal 0.00-0.20 [facility] Comment on above: Performed By: #### L [id number] #### [facility] (BEAKER) [address] [place] [address] Immature granulocytes/100 WBC (Bld) 0.8 % Normal 0.0-1.0 [facility] Comment on above: Performed By: #### L [id number] #### [facility] (BEAKER) [address] [place] [address] Lymphocytes (Bld) [#/Vol] 1.34 10*3/uL Normal 1.20-4.00 [facility] Comment on above: Performed By: #### L [id number] #### [facility] ([facility]) [address] [address] Lymphocytes/100 WBC (Bld) 15.9 % Low 20.0-45.0 [facility] Comment on above: Performed By: #### L [id number] #### [facility] ([facility]ER) [address] [facility] [place] [address] MCH (RBC) [Entitic mass] 29.1 pg Normal 27.0-33.0 [facility] Comment on above: Performed By: #### L [id number] #### [facility] (BE[facility]ER) [address] [place] [address] MCV (RBC) [Entitic vol] 96.4 fL Normal 82.0-98.0 [facility] Comment on above: Performed By: #### L [id number] #### [facility] (BE[facility]ER) [address] [place] [address] Monocytes (Bld) [#/Vol] 0.77 10*3/uL Normal 0.10-1.00 [facility] Comment on above: Performed By: #### L [id number] #### [facility] (BEAKER) [address] [place] [address] Monocytes/100 WBC (Bld) 9.1 % Normal 5.0-12.0 [facility] Comment on above: Performed By: #### L [id number] #### [facility] ([facility]) [address] [place] [address] Neutrophils (Bld) [#/Vol] 6.22 10*3/uL Normal 1.60-7.60 [facility] Comment on above: Performed By: #### L [id number] #### [facility] ([facility]) [address] [place] [address] Neutrophils/100 WBC (Bld) 73.8 % High 40.0-72.0 [facility] Comment on above: Performed By: #### L [id number] #### [facility] ([facility]) [address] [place] [address] NRBC (PER 100 WBCS) BY AUTOMATED COUNT 0.0 % Normal 0 [facility] Comment on above: Performed By: #### L [id number] #### [facility] ([facility]) [address] [place] [address] PLATELETS (10*3/UL) IN BLOOD AUTOMATED COUNT 223 10*3/uL Normal 150-400 [facility] Comment on above: Performed By: #### L [id number] #### [facility] ([facility]) [address] [place] [address] RBC (Bld) [#/Vol] 3.33 10*6/uL Low 3.80-5.[address] [facility] Comment on above: Performed By: #### L [id number] #### [facility] ([facility]) [address] [place] [address] WBC (Bld) [#/Vol] 8.43 10*3/uL Normal 4.00-10.[address] [facility] Comment on above: Performed By: #### L [id number] #### [facility] ([facility]) [address] [place] [address] CONSULTon 07-02-2024 CONSULT -- Attestation signed by [...] a femur fracture following a fall at [facility]. Cardiology was consulted for pre-op clearance. Patient [...] past medical history of Anemia, Atrial fibrillation ([facility]), Calcaneal spur of both feet, Cataracts, bilateral, CHF (congestive heart failure) ([facility]), Chronic pain, Cognitive communication deficit, Delusional disorder ([facility]), Dementia ([facility]), Depression, Fall (11/13/2023), Femur fracture, left ([facility]) (11/13/2023), Generalized weakness, GERD (gastroesophageal reflux disease), History of COVID-19, Hypertension, Hypothyroid, Insomnia, OA (osteoarthritis), Obesity, PVD (peripheral vascular disease) ([facility]), Renal failure, Sick sinus syndrome ([facility]), and Tinea unguium. Surgical History She has [...] Apply topi (more content not included)... Normal [facility] HPon 11-14-2023 History Of Present Illness Celia [...] (CMS/HCC), Depression, Fall (11/13/2023), Femur fracture, left ([facility]) (11/13/2023), Generalized weakness, GERD (gastroesophageal reflux disease), History of COVID-19, Hypertension, Hypothyroid, Insomnia, OA (osteoarthritis), Obesity, PVD (peripheral vascular disease) ([facility]), Renal failure, Sick sinus syndrome ([facility]), and Tinea unguium. Surgical History She has [...] Agent, Strain, 3D, Bubble Study 1 1 [facility] [address] [place] [address] [phone] (fax) Echocardiogram-[place] (more content not included)... Normal [facility] MAGNESIUMon 11-14-2023 Magnesium [Mass/Vol] 1.7 mg/dL Low 1.9-2.7 [facility] Comment on above: Performed By: #### L [id number] #### [facility] ([facility]ER) [address] [place] [address] OP[facility]on 11-14-2023 [facility] Date of Surgery: 11/14/2023 Surgeon: Aric Smith MD Technical Agronomist: Long Perdomo MD, Quinten Rahman DO Preoperative [...] 78 y.o. female who was transferred from [place] for a left periprosthetic femur fracture. Due [...] Vicryl, subcutaneous layer with 2-0 Vicryl and izabeal for skin. The drapes were taken down [...] 10 t (more content not included)... Normal [facility] PHOSPHORUSon 11-14-2023 Magnesium [Mass/Vol] 4.5 mg/dL Normal 2.5-5.0 [facility] Comment on above: Performed By: #### L [id number] #### [facility] ([facility]) [address] [place] [address] POCT GLUCOSE METER UNSOLICIT ED RESULTSon 11-14-2023 Glucose [Mass/Vol] 181 mg/dL High 70-105 [facility] Comment on above: Order Comment: Waive d Testing in the ED is performed under the ED CLIA certificate #[id number]. Result Comment: czyd orc Performed By: #### L [id number] #### [facility] ([employer]) [address] [place] [address] Glucose [Mass/Vol] 120 mg/dL High 70-105 [facility] Comment on above: Order Comment: Waive d Testing in the ED is performed under the ED CLIA certificate #[id number]. Result Comment: epaw low Performed By: #### L [id number] #### [facility] ([facility]) [address] [place] [address] Glucose [Mass/Vol] 113 mg/dL High 70-105 [facility] Comment on above: Order Comment: Waive d Testing in the ED is performed under the ED CLIA certificate #[id number]. Result Comment: epoo [email or web address] Performed By: #### L [id number] ####[facility] ([facility])[address] [place] [address] Glucose [Mass/Vol] 131 mg/dL High 70-105 [facility] Comment on above: Order Comment: Waive d Testing in the ED is performed under the ED CLIA certificate #[id number]. Result Comment: lzwo judith Performed By: #### L [id number] ####[facility] ([employer])[address] [place] [address] Glucose [Mass/Vol] 111 mg/dL High 70-105 [facility] Comment on above: Order Comment: Waive d Testing in the ED is performed under the ED CLIA certificate #[id number]. Result Comment: lzwo judith Performed By: #### L [id number] #### [facility] ([employer]) [address] [place] [address] POTASSIUM, WHOLE BLOODon Potassium [Moles/Vol] 4.0 mmol/L Normal 3.5-5.1 [facility] Comment on above: Performed By: #### L [id number] #### [facility] ([facility]) [address] [place] [address] SODIUM, WHOLE BLOODon 2023 SODIUM, WHOLE BLOOD 139 Normal 136-[address] [facility] Comment on above: Performed By: #### L [id number] #### [facility] ([employer]) [address] [place] [address] APTTon 11-13-2023 ACTIVATED PARTIAL THROMBOPLASTIN TIME IN PPP BY COAGULATION ASSAY 34.0 Seconds Normal 25.0-35.0 [facility] Comment on above: Result Comment: Clin ical significance of the APTT is questionable in the presence of heparin. Performed By: #### L [id number] #### [facility] (BEAKER) [address] [place] [address] BASIC METABOLIC PANELon 07-0 Anion gap [Moles/Vol] 16 mmol/L Normal 7-20 [facility] [facility] Comment on above: Performed By: #### L [id number] ####[facility] ([facility])[address] [place] [address] Calcium [Mass/Vol] 7.8 mg/dL Low 8.6-10.3 [facility] Comment on above: Performed By: #### L AB15 ####[facility] ([facility])[address] [place] [address] Chloride [Moles/Vol] 104 mmol/L Normal 98-107 [facility] Comment on above: Performed By: #### L AB15 ####[facility] ([facility])[address] [place] [address] CO2 [Moles/Vol] 27 mmol/L Normal 21-31 [facility] Comment on above: Performed By: #### L AB15 ####[facility] ([facility])[address] [place] [address] Creatinine [Mass/Vol] 0.91 mg/dL Normal 0.60-1.20 [facility] Comment on above: Performed By: #### L [id number] ####[facility] ([facility])[address] [place] [address] GLOMERULAR FILTRATION RATE ML/MIN/1.73 SQ M.PREDICTED 64.2 mL/min/1.73m*2 Normal >60.0 [facility] Comment on above: Result Comment: The [facility]???s estimated glomerular filtration rate (eGFR) will no [...] of individuals. Performed By: #### L [id number] ####[facility] ([facility])[address] [place] [address] Glucose [Mass/Vol] 125 mg/dL High 70-100 [facility] Comment on above: Performed By: #### L [id number] ####[facility] ([facility])[address] [place] [address] Potassium [Moles/Vol] 4.4 mmol/L Normal 3.5-5.1 [facility] Comment on above: Performed By: #### L [id number] ####[facility] ([facility])[address] [place] [address] Sodium [Moles/Vol] 143 mmol/L Normal 136-145 [facility] Comment on above: Performed By: #### L [id number] ####[facility] ([facility])[address] [place] [address] Urea nitrogen [Mass/Vol] 23 mg/dL Normal 7-25 [facility] Comment on above: Performed By: #### L [id number] ####[facility] ([facility])[address] [place] [address] UREA NITROGEN/CREATININE (MASS RATIO) IN SER/PLAS 25.3 Normal [facility] Comment on above: Performed By: #### L [id number] ####[facility] ([facility])[address] [place] [address] CBC WITH AUTO DIFFERENTIALon 11-13-2023 Basophils (Bld) [#/Vol] 0.03 10*3/uL Normal 0.00-0.20 [facility] Comment on above: Performed By: #### L [id number] #### [facility] ([facility]) [address] [place] [address] Basophils/100 WBC (Bld) 0.3 % Normal 0.0-1.0 [facility] Comment on above: Performed By: #### L [id number] #### [facility] (BEAKER) [address] [place] [address] Eosinophils (Bld) [#/Vol] 0.00 10*3/uL Normal 0.00-0.50 [facility] Comment on above: Performed By: #### L [id number] #### [facility] ([facility]) [address] [place] [address] Eosinophils/100 WBC (Bld) 0.0 % Normal 0.0-6.0 [facility] Comment on above: Performed By: #### L [id number] #### [facility] ([facility]) [address] [place] [address] Erythrocyte distribution width (RBC) [Ratio] 15.9 % High 11.5-15.0 [facility] Comment on above: Performed By: #### L [id number] #### [facility] ([facility]) [address] [place] [address] ERYTHROCYTE MEAN CORPUSCULAR HEMOGLOBIN CONCENTRATION (G/DL) BY AUTOMATED 30.4 g/dL Low 32.0-35.0 [facility] Comment on above: Performed By: #### L [id number] #### [facility] ([facility]) [address] [place] [address] Hematocrit (Bld) [Volume fraction] 36.2 % Normal 36.0-48.0 [facility] Comment on above: Performed By: #### L [id number] #### [facility] ([facility]) [address] [place] [address] Hemoglobin (Bld) [Mass/Vol] 11.0 g/dL Low 12.0-15.0 [facility] Comment on above: Performed By: #### L [id number] #### [facility] ([facility]) [address] [place] [address] Immature granulocytes (Bld) [#/Vol] 0.09 10*3/uL Normal 0.00-0.20 [facility] Comment on above: Performed By: #### L [id number] #### [facility] ([facility]) [address] [place] [address] Immature granulocytes/100 WBC (Bld) 0.9 % Normal 0.0-1.0 [facility] Comment on above: Performed By: #### L [id number] #### [facility] ([facility]) [address] [address] Lymphocytes (Bld) [#/Vol] 1.28 10*3/uL Normal 1.20-4.00 [facility] Comment on above: Performed By: #### L [id number] #### [facility] ([facility]) [address] [place] [address] Lymphocytes/100 WBC (Bld) 12.4 % Low 20.0-45.0 [facility] Comment on above: Performed By: #### L [id number] #### [facility] ([facility]) [address] [facility] [place] [address] MCH (RBC) [Entitic mass] 28.8 pg Normal 27.0-33.0 [facility] Comment on above: Performed By: #### L [id number] #### [facility] ([facility]) [address] [place] [address] MCV (RBC) [Entitic vol] 94.8 fL Normal 82.0-98.0 [facility] Comment on above: Performed By: #### L [id number] #### [facility] ([facility]) [address] [place] [address] Monocytes (Bld) [#/Vol] 0.73 10*3/uL Normal 0.10-1.00 [facility] Comment on above: Performed By: #### L [id number] #### [facility] ([facility]) [address] [place] [address] Monocytes/100 WBC (Bld) 7.1 % Normal 5.0-12.0 [facility] Comment on above: Performed By: #### L [id number] #### [facility] ([facility]) [address] [place] [address] Neutrophils (Bld) [#/Vol] 8.21 10*3/uL High 1.60-7.60 [facility] Comment on above: Performed By: #### L [id number] #### [facility] ([facility]) [address] [place] [address] Neutrophils/100 WBC (Bld) 79.3 % High 40.0-72.0 [facility] Comment on above: Performed By: #### L [id number] #### [facility] ([facility]) [address] [place] [address] NRBC (PER 100 WBCS) BY AUTOMATED COUNT 0.0 % Normal 0 [facility] Comment on above: Performed By: #### L [id number] #### [facility] ([facility]) [address] [place] [address] PLATELETS (10*3/UL) IN BLOOD AUTOMATED COUNT 262 10*3/uL Normal 150-400 [facility] Comment on above: Performed By: #### L [id number] #### [facility] ([facility]) [address] [place] [address] RBC (Bld) [#/Vol] 3.82 10*6/uL Normal 3.80-5.[address] [facility] Comment on above: Performed By: #### L [id number] #### [facility] ([facility]) [address] [place] [address] WBC (Bld) [#/Vol] 10.34 10*3/uL Normal 4.00-10.60 [facility] Comment on above: Performed By: #### L [id number] #### [facility] ([facility]) [address] [place] [address] CONSULTon 11-13-2023 CONSULT -- Attestation signed by Flako Gonzalez MD at 11/14/2023 3:09 PM I did not personally examine the patient. I discussed the case with the resident and agree with the plan. Orthopedic Surgery Subjective Left femur periprosthetic fracture 11/13/23 Celia Menon is a 78 y.o. female presenting as a transfer from [place] with pain secondary to left sided zarina-prosthetic [...] Medical History: Diagnosis Date Anemia Atrial fibrillation ([facility]/HCC) Calcaneal spur of both feet Cataracts, bilateral CHF (congestive heart failure) ([facility]/HCC) Chronic pain Cognitive communication deficit Delusional disorder ([facility]/HCC) Dementia ([facility]) Depression Fall 11/13/2023 Femur fracture, left ([facility]/HCC) 11/13/2023 Generalized weakness GERD (gastroesophageal reflux [...] Olivera MD Orthopaedic Surgery, Resident Ortho Pager [phone] 11/13/23 10:47 PM May contact the on-call resident with any concerns via the Orthopaedic pager at any time. Normal [facility] CT FEMUR LEFT WO IV CONTRAST on [...] signed: Ellis Valencia. 8 Invalid Interpretation Code [facility] HPon 11-13-2023 HP Subjective Chief Complaint: Trauma Fall Mechanism of Injury (History of what occurred prior to arrival): 78 y.o. year old female who was brought in via EMS. She had no C-collar or back board in place. Circumstances of injury: Patient presents as a direct admission from [facility]. Patient reportedly lives in a nursing [...] use. Family History: pulled available information in [facility] from previous visits No family history [...] ) ( (more content not included)... Normal [facility] MAGNESIUMon 11-13-2023 Magnesium [Mass/Vol] 1.8 mg/dL Low 1.9-2.7 [facility] Comment on above: Performed By: #### L [id number] #### [facility] ([facility]) [address] [place] [address] PROTIME-INRon 11-13-2023 INR IN PPP BY COAGULATION ASSAY 1.79 High 0.90-1.10 [facility] Comment on above: Result Comment: ACCC P [...] 1995;[id number]. Performed By: #### L [id number] #### [facility]) [address] [place] [address] PROTHROMBIN TIME (PT) IN PPP BY COAGULATION ASSAY 20.9 Seconds High 12.3-14.8 [facility] Comment on above: Performed By: #### L [id number] #### [facility]) [address] [place] [address] TROPONIN Ion 11-13-2023 Troponin I.cardiac [Mass/Vol] 0.02 ng/mL Normal 0.00-0.04 [facility] Comment on above: Performed By: #### L [id number] #### [facility] ([facility]) [address] [place] [address] TYPE AND SCREENon 11-13-2023 AB SCREEN Negative Normal [facility] Comment on above: Performed By: #### L [id number] #### [facility] ([facility]) [address] [place] [address] ABO group Nom (Bld) O Normal [facility] Comment on above: Performed By: #### L [id number] #### [facility] (BEAKER) [address] [place] [address] RH TYPE IN BLOOD Positive Normal [facility] Comment on above: Performed By: #### L [id number] #### [facility] (BEAKER) [address] [place] [address] VIT D 25-[place] [facility]on 2022 Vitamin D, 25-Hydroxy 35.9 ng/mL Normal 30.0-100.0 [facility] Comment on above: Result Comment: Jadyn min D deficiency has been defined by the [place] of Medicine and an Endocrine Society practice guideline as a level of serum 25-OH vitamin D less than 20 ng/mL (1,2). The Endocrine Society went on to further define vitamin D insufficiency as a level between 21 and 29 ng/mL (2). 1. IOM ([place] of Medicine). 2010. Dietary reference intakes for calcium and D. [place]: The National Academies Press. 2. Yamilex MF, Florecita [place], Mala-Irving OTTO, et al. Evaluation, treatment, and prevention of vitamin D deficiency: an Endocrine Society clinical practice guideline. JCEM. 2010; 96(7):1911-30. Performed By: #### V ITADLC #### [facility] [address] [address] [address] Ashwin Key CBC AUTO DIFFon 08-22-2022 BASO # 0.0 103/ul Normal 0.0-0.1 [facility] Comment on above: Performed By: #### C BC #### [facility] [address] [address] [address] Ashwin Key Basophils/100 WBC (Bld) 0.5 % Normal 0.2-2.0 [facility] Comment on above: Performed By: #### C BC #### [facility] [address] [address] [address] Ashwin Key EO # 0.0 103/ul Normal 0.0-0.7 [facility] Comment on above: Performed By: #### C BC #### [facility] [address] [place] [address] Dr. Ashwin Key Eosinophils/100 WBC (Bld) 0.0 % Critically low 0.9-7.0 [facility] Comment on above: Performed By: #### C BC #### [facility] [address] [place] [address] Dr. Ashwin Key Erythrocyte distribution width (RBC) [Ratio] 14.7 % Normal 11.0-15.0 [facility] Comment on above: Performed By: #### C BC #### [facility] [address] [place] [address] Dr. Ashwin Key Hematocrit (Bld) [Volume fraction] 38.0 % Normal 36.0-48.0 [facility] Comment on above: Performed By: #### C BC #### [facility] [address] [place] [address] Dr. Ashwin Key Hemoglobin (Bld) [Mass/Vol] 11.5 g/dL Critically low 12.0-16.0 [facility] Comment on above: Performed By: #### C BC #### [facility] [address] [place] [address] Dr. Ashwin Key IG # 0.01 10e3/ul Normal 0.00-0.03 [facility] Comment on above: Performed By: #### C BC #### [facility] [address] [place] [address] Dr. Ashwin Key IG % 0.2 % Normal 0.0-0.5 [facility] Comment on above: Performed By: #### C BC #### [facility] [address] [place] [address] Dr. Ashwin Key LYMPH # 2.1 103/ul Normal 1.2-3.8 [facility] Comment on above: Performed By: #### C BC #### [facility] [address] [place] [address] Dr. Ashwin Key Lymphocytes/100 WBC (Bld) 48.4 % Normal 20.5-60.0 [facility] Comment on above: Performed By: #### C BC #### [facility] [address] [place] [address] Dr. Ashwin Key MANUAL DIFF REQ NO Normal [facility] Comment on above: Performed By: #### C BC #### [facility] [address] [place] [address] Dr. Ashwin Key MCH (RBC) [Entitic mass] 28.8 pg Normal 26.7-34.0 [facility] Comment on above: Performed By: #### C BC #### [facility] [address] [place] [address] Dr. Ashwin Key MCHC (RBC) [Mass/Vol] 30.3 g/dL Normal 29.9-35.2 [facility] Comment on above: Performed By: #### C BC #### [facility] [address] [place] [address] Dr. Ashwin Key MCV (RBC) [Entitic vol] 95.0 fL Normal 81.0-99.0 [facility] Comment on above: Performed By: #### C BC #### [facility] [address] [place] [address] Dr. Ashwin Key MONO # 0.4 103/ul Normal 0.3-0.8 [facility] Comment on above: Performed By: #### C BC #### [facility] [address] [place] [address] Dr. Ashwin Key Monocytes/100 WBC (Bld) 9.3 % Normal 1.7-12.0 [facility] Comment on above: Performed By: #### C BC #### [facility] [address] [place] [address] Dr. Ashwin Key NEUT # 1.8 103/ul Normal 1.4-6.5 [facility] Comment on above: Performed By: #### C BC #### [facility] [address] [place] [address] Dr. Ashwin Key Neutrophils/100 WBC (Bld) 41.6 % Critically low 43.0-75.0 [facility] Comment on above: Performed By: #### C BC #### [facility] [address] [address] [address] Ashwin Key Platelet mean volume (Bld) [Entitic vol] 10.3 fL Normal 9.5-13.5 [facility] Comment on above: Performed By: #### C BC #### [facility] [address] [address] [address] Ashwin Key PLT 166 103/ul Normal 150-450 [facility] Comment on above: Performed By: #### C BC #### [facility] [address] [address] [address] Ashwin Key RBC 4.00 106/ul Critically low 4.20-5.40 [facility] Comment on above: Performed By: #### C BC #### [facility] [address] [place] [address] Dr. Ashwin Key WBC 4.4 103/ul Normal 4.0-11.0 [facility] Comment on above: Performed By: #### C BC #### [facility] [address] [place] [address] Dr. Ashwin Key GLYCOHEMOGLOBIN A1Con 2022 ADA RECOMMENDATION SEE BELOW Normal [facility] Comment on above: Result Comment: ADA RECOMMENDED LIMIT 4.0 - 6.0 ADA THERAPEUTIC TARGET < 7.0 ACTION SUGGESTED > 7.0 Performed By: #### A 1C #### [facility] [address] [place] [address] Dr. Ashwin Key Glucose [Mass/Vol] 105 mg/dL Normal [facility] Comment on above: Performed By: #### A 1C #### [facility] [address] [place] [address] Dr. Ashwin Key HbA1c (Bld) [Mass fraction] 5.3 % Normal 4.5-6.2 [facility] Comment on above: Performed By: #### A 1C #### [facility] [address] [place] [address] Dr. Ashwin Key LIPID PROFILEon 08-22-2022 CHOL-HDL RATIO NORM SEE BELOW Normal [facility] Comment on above: Result Comment: 3.3 - 4.4 LOW RISK 4.4 - 7.1 AVERAGE RISK 7.1 - 11.0 MODERATE RISK >11.0 HIGH RISK Performed By: #### U GURVINDER BUTTICRO #### [facility] [address] [address] [address] Ashwin Key Cholesterol [Mass/Vol] 103 mg/dL Normal <=200 [facility] Comment on above: Performed By: #### U FILOMENA UMICRO #### [facility] [address] [address] [address] Ashwin Key Cholesterol in HDL [Mass/Vol] 40 mg/dL Normal 40-60 [facility] Comment on above: Performed By: #### U GURVINDER BUTTICRO #### [facility] [address] [place] [address] Dr. Ashwin Key Cholesterol in LDL [Mass/Vol] 51.8 mg/dL Normal [facility] Comment on above: Performed By: #### U GURVINDER BUTTICRO #### [facility] [address] [place] [address] Dr. Ashwin Key Cholesterol.total/Cho lesterol in HDL [Mass ratio] 2.6 {ratio} Normal [facility] Comment on above: Performed By: #### U FILOMENA UMICRO #### [facility] [address] [place] [address] Dr. Ashwin Key HDL NORMAL > or = 60 mg/dl - LO W CARDIOVASCULAR RISK <40 mg/dl - HIGH CARDIOVASCULAR RISK Normal [facility] Comment on above: Performed By: #### U ACSJAZMIN UMICRO #### [facility] [address] [place] [address] Dr. Ashwin Key LDL CALC NORMAL SEE BELOW Normal [facility] Comment on above: Result Comment: <100 mg/dl OPTIMAL 100 - 129 mg/dl NEAR OR ABOVE OPTIMAL 130 - 159 mg/dl BORDERLINE HIGH 160 - 189 mg/dl HIGH >190 mg/dl VERY HIGH Performed By: #### U FILOMENA UMICRO #### [facility] [address] [address] [address] Ashwin Key Triglyceride [Mass/Vol] 56 mg/dL Normal <=150 [facility] Comment on above: Performed By: #### U GURVINDER BUTTICRO #### [facility] [address] [address] [address] Ashwin Key VLDL CALC 11.2 mg/dL Normal [facility] Comment on above: Performed By: #### U GURVINDER BUTTICRO #### [facility] [address] [address] [address] Ashwin Key PROF 14(COMP METB)on 023 Albumin [Mass/Vol] 2.5 g/dL Critically low 3.4-5.0 [facility] Comment on above: Performed By: #### U JOEY BUTTRO #### [facility] [address] [place] [address] Dr. Ashwin Key Albumin/Globulin [Mass ratio] 0.7 {ratio} Normal [facility] Comment on above: Performed By: #### Lisseth BUTT UMICRO #### [facility] [address] [place] [address] Dr. Ashwin Key ALP [Catalytic activity/Vol] 110 U/L Normal 46-116 [facility] Comment on above: Performed By: #### U JOEY BUTTRO #### [facility] [address] [place] [address] Dr. Ashwin Key ALT [Catalytic activity/Vol] 16 U/L Normal 14-59 [facility] Comment on above: Performed By: #### U JOEY BUTTRO #### [facility] [address] [address] [address] Ashwin Key Anion gap [Moles/Vol] 9.8 mmol/L Normal [facility] Comment on above: Performed By: #### U FILOMENA UMICRO #### [facility] [address] [address] [address] Ashwin Key AST [Catalytic activity/Vol] 13 U/L Critically low 15-37 [facility] Comment on above: Performed By: #### U FILOMENA UMICRO #### [facility] [address] [address] [address] Ashwin Key Bilirubin [Mass/Vol] 0.4 mg/dL Normal 0.2-1.0 [facility] Comment on above: Performed By: #### U ACSIND, UMICRO #### [facility] [address] [address] [address] Ashwin Key Calcium [Mass/Vol] 8.5 mg/dL Normal 8.5-10.1 [facility] Comment on above: Performed By: #### U ACSIND, UMICRO #### [facility] [address] [address] [address] Ashwin Key Chloride [Moles/Vol] 108 mmol/L Critically high 98-107 [facility] Comment on above: Performed By: #### U ACSIND, UMICRO #### [facility] [address] [place] [address] Dr. Ashwin Key CO2 [Moles/Vol] 31.0 mmol/L Normal 21.0-32.0 [facility] Comment on above: Performed By: #### U ACSJAZMIN, UMICRO #### [facility] [address] [address] [address] Ashwin Key Creatinine [Mass/Vol] 0.91 mg/dL Normal 0.55-1.02 [facility] Comment on above: Performed By: #### U ACSJAZMIN, UMICRO #### [facility] [address] [address] [address] Ashwin Key EGFR-AF MOROCCAN >60 Normal >=60 [facility] Comment on above: Performed By: #### U ACSIND, UMICRO #### [facility] [address] [address] [address] Ashwin Key EGFR-NON AF MOROCCAN 60 mL/min/1.73m2 Normal >=60 [facility] Comment on above: Performed By: #### U ACSIND, UMICRO #### [facility] [address] [address] [address] Ashwin Key Globulin (S) [Mass/Vol] 3.5 g/dL Normal [facility] Comment on above: Performed By: #### U ACSJAZMIN UMICRO #### [facility] [address] [address] [address] Ashwin Key Glucose [Mass/Vol] 99 mg/dL Normal 74-106 [facility] Comment on above: Performed By: #### U FILOMENA UMICRO #### [facility] [address] [address] [address] Ashwin Key Potassium [Moles/Vol] 3.8 mmol/L Normal 3.5-5.1 [facility] Comment on above: Performed By: #### U ACSJAZMIN UMICRO #### [facility] [address] [address] [address] Ashwin Key Protein [Mass/Vol] 6.0 g/dL Critically low 6.4-8.2 Th [facility] Comment on above: Performed By: #### U FILOMENA UMICRO #### [facility] [address] [address] [address] Ashwin Key Sodium [Moles/Vol] 145 mmol/L Normal 136-145 [facility] Comment on above: Performed By: #### Lisseth BUTT UMICRO #### [facility] [address] [place] [address] Dr. Ashwin Key Urea nitrogen [Mass/Vol] 24.0 mg/dL Critically high 7.0-18.0 [facility] Comment on above: Performed By: #### U FILOMENA UMICRO #### [facility] [address] [address] [address] Ashwin Key Urea nitrogen/Creatinine [Mass ratio] 26.4 mg/mg Normal [facility] Comment on above: Performed By: #### U FILOMENA UMICRO #### [facility] [address] [place] [address] Dr. Ashwin Key TSHon 08-22-2022 TSH 5.573 uIU/mL Critically high 0.358-3.740 [facility] Comment on above: Performed By: #### U FILOMENA UMICRO #### [facility] [address] [address] [address] Ashwin Key CBC AUTO DIFFon 08-10-2022 BASO # 0.0 103/ul Normal 0.0-0.1 [facility] Comment on above: Performed By: #### C BC #### [facility] [address] [place] [address] Dr. Ashwin Key Basophils/100 WBC (Bld) 0.7 % Normal 0.2-2.0 [facility] Comment on above: Performed By: #### C BC #### [facility] [address] [place] [address] Dr. Ashwin Key EO # 0.0 103/ul Normal 0.0-0.7 [facility] Comment on above: Performed By: #### C BC #### [facility] [address] [place] [address] Dr. Ashwin Key Eosinophils/100 WBC (Bld) 0.0 % Critically low 0.9-7.0 [facility] Comment on above: Performed By: #### C BC #### [facility] [address] [place] [address] Dr. Ashwin Key Erythrocyte distribution width (RBC) [Ratio] 15.1 % Critically high 11.0-15.0 [facility] Comment on above: Performed By: #### C BC #### [facility] [address] [place] [address] Dr. Ashwin Key Hematocrit (Bld) [Volume fraction] 38.0 % Normal 36.0-48.0 [facility] Comment on above: Performed By: #### C BC #### [facility] [address] [place] [address] Dr. Ashwin Key Hemoglobin (Bld) [Mass/Vol] 11.4 g/dL Critically low 12.0-16.0 [facility] Comment on above: Performed By: #### C BC #### [facility] [address] [place] [address] Dr. Ashwin Key IG # 0.02 10e3/ul Normal 0.00-0.03 [facility] Comment on above: Performed By: #### C BC #### [facility] [address] [place] [address] Dr. Ashwin Key IG % 0.5 % Normal 0.0-0.5 [facility] Comment on above: Performed By: #### C BC #### [facility] [address] [place] [address] Dr. Ashwin Key LYMPH # 2.1 103/ul Normal 1.2-3.8 [facility] Comment on above: Performed By: #### C BC #### [facility] [address] [place] [address] Dr. Ashwin Key Lymphocytes/100 WBC (Bld) 48.4 % Normal 20.5-60.0 [facility] Comment on above: Performed By: #### C BC #### [facility] [address] [place] [address] Dr. Ashwin Key MANUAL DIFF REQ NO Normal [facility] Comment on above: Performed By: #### C BC #### [facility] [address] [place] [address] Dr. Ashwin Key MCH (RBC) [Entitic mass] 28.8 pg Normal 26.7-34.0 [facility] Comment on above: Performed By: #### C BC #### [facility] [address] [place] [address] Dr. Ashwin Key MCHC (RBC) [Mass/Vol] 30.0 g/dL Normal 29.9-35.2 [facility] Comment on above: Performed By: #### C BC #### [facility] [address] [place] [address] Dr. Ashwin Key MCV (RBC) [Entitic vol] 96.0 fL Normal 81.0-99.0 [facility] Comment on above: Performed By: #### C BC #### [facility] [address] [place] [address] Dr. Ashwin Key MONO # 0.3 103/ul Normal 0.3-0.8 [facility] Comment on above: Performed By: #### C BC #### [facility] [address] [place] [address] Dr. Ashwin Key Monocytes/100 WBC (Bld) 7.7 % Normal 1.7-12.0 [facility] Comment on above: Performed By: #### C BC #### [facility] [address] [place] [address] Dr. Ashwin Key NEUT # 1.8 103/ul Normal 1.4-6.5 [facility] Comment on above: Performed By: #### C BC #### [facility] [address] [place] [address] Dr. Ashwin Key Neutrophils/100 WBC (Bld) 42.7 % Critically low 43.0-75.0 [facility] Comment on above: Performed By: #### C BC #### [facility] [address] [place] [address] Dr. Ashwin Key Platelet mean volume (Bld) [Entitic vol] 10.1 fL Normal 9.5-13.5 [facility] Comment on above: Performed By: #### C BC #### [facility] [address] [place] [address] Dr. Ashwin Key PLT 156 103/ul Normal 150-450 [facility] Comment on above: Performed By: #### C BC #### [facility] [address] [place] [address] Dr. Ashwin Key RBC 3.96 106/ul Critically low 4.20-5.40 [facility] Comment on above: Performed By: #### C BC #### [facility] [address] [place] [address] Dr. Ashwin Key WBC 4.3 103/ul Normal 4.0-11.0 [facility] Comment on above: Performed By: #### C BC #### [facility] [address] [place] [address] Dr. Ashwin Key PROF CHEM 8 (BAS METB)on Anion gap [Moles/Vol] 13.3 mmol/L Normal [facility] Comment on above: Performed By: #### U ACSIND, UMICRO #### [facility] [address] [address] [address] Ashwin Key Calcium [Mass/Vol] 8.3 mg/dL Critically low 8.5-10.1 Th [facility] Comment on above: Performed By: #### U ACSIND, UMICRO #### [facility] [address] [address] [address] Ashwin Key Chloride [Moles/Vol] 111 mmol/L Critically high 98-107 [facility] Comment on above: Performed By: #### U ACSIND, UMICRO #### [facility] [address] [address] [address] Ashwin Key CO2 [Moles/Vol] 29.9 mmol/L Normal 21.0-32.0 [facility] Comment on above: Performed By: #### U ACSIND, UMICRO #### [facility] [address] [address] [address] Ashwin Key Creatinine [Mass/Vol] 0.92 mg/dL Normal 0.55-1.02 [facility] Comment on above: Performed By: #### U ACSIND, UMICRO #### [facility] [address] [address] [address] Ashwin Key EGFR-AF MOROCCAN >60 Normal >=60 [facility] Comment on above: Performed By: #### U ACSIND, UMICRO #### [facility] [address] [address] [address] Ashwin Key EGFR-NON AF MOROCCAN 59 mL/min/1.73m2 Critically low >=60 [facility] Comment on above: Performed By: #### U ACSIND, UMICRO #### [facility] [address] [address] [address] Ashwin Key Glucose [Mass/Vol] 84 mg/dL Normal 74-106 [facility] Comment on above: Performed By: #### U ACSIND, UMICRO #### [facility] [address] [address] [address] Ashwin Key Potassium [Moles/Vol] 4.2 mmol/L Normal 3.5-5.1 [facility] Comment on above: Performed By: #### U FILOMENA UMICRO #### [facility] [address] [address] [address] Ashwin Key Sodium [Moles/Vol] 150 mmol/L Critically high 136-145 [facility] Comment on above: Performed By: #### U FILOMENA UMICRO #### [facility] [address] [place] [address] Dr. Ashwin Key Urea nitrogen [Mass/Vol] 25.0 mg/dL Critically high 7.0-18.0 [facility] Comment on above: Performed By: #### U FILOMENA UMICRO #### [facility] [address] [place] [address] Dr. Ashwin Key Urea nitrogen/Creatinine [Mass ratio] 27.2 mg/mg Normal [facility] Comment on above: Performed By: #### U FILOMENA UMICRO #### [facility] [address] [place] [address] Dr. Ashwin Key TSHon 08-10-2022 TSH 3.430 uIU/mL Normal 0.358-3.740 [facility] Comment on above: Performed By: #### U FILOMENA UMICRO #### [facility] [address] [place] [address] Dr. Ashwin Key CULTURE URINEon 08-09-2022 CULTURE URINE Culture Observations : ANSON TO FOLLOW. Normal [facility] Comment on above: Performed By: #### U FILOMENA UMICRO #### [facility] [address] [place] [address] Dr. Ashwin Key UA (CLEAN/CATCH) WARRANTY ADMINISTRATOR/MICRO I F IND.on 08-09-2022 Bilirubin Ql (U) Negative Normal NEGATIVE [facility] Comment on above: Performed By: #### U GURVINDER BUTTICRO #### [facility] [address] [place] [address] Dr. Ashwin Key Clarity (U) CLEAR Normal CLEAR [facility] Comment on above: Performed By: #### U FILOMENA UMICRO #### [facility] [address] [address] [address] Ashwin Key Color (U) LT. YELLOW Normal YELLOW [facility] Comment on above: Performed By: #### U ACSIND, UMICRO #### [facility] [address] [address] [address] Ashwin Key Glucose Ql (U) Negative Normal NEGATIVE [facility] Comment on above: Performed By: #### U ACSIND, UMICRO #### [facility] [address] [address] [address] Ashwin Key Hemoglobin Ql (U) TRACE-INTACT Abnormal NEGATIVE [facility] Comment on above: Performed By: #### U ACSIND, UMICRO #### [facility] [address] [place] [address] Dr. Ashwin Key Ketones Ql (U) Negative Normal NEGATIVE [facility] Comment on above: Performed By: #### U ACSIND, UMICRO #### [facility] [address] [place] [address] Dr. Ashwin Key LEUKOCYTES TRACE Abnormal NEGATIVE [facility] Comment on above: Performed By: #### U ACSIND, UMICRO #### [facility] [address] [place] [address] Dr. Ashwin Key Nitrite Ql (U) Negative Normal NEGATIVE [facility] Comment on above: Performed By: #### U ACSIND, UMICRO #### [facility] [address] [place] [address] Dr. Ashwin Key pH (U) 5.5 [pH] Normal 5-9 [facility] Comment on above: Performed By: #### U ACSIND, UMICRO #### [facility] [address] [place] [address] Dr. Ashwin Key SPEC GRAVITY <=1.005 Abnormal 1.005-<=1.02 5 [facility] Comment on above: Performed By: #### U ACSIND, UMICRO #### [facility] [address] [place] [address] Dr. Ashwin Key UA PROTEIN Negative Normal NEGATIVE/ TRACE [facility] Comment on above: Performed By: #### U ACSIND, UMICRO #### [facility] [address] [address] [address] Ashwin Key UR MICRO IND INDICATED Normal [facility] Comment on above: Performed By: #### U ACSIND, UMICRO #### [facility] [address] [address] [address] Ashwin Key Urobilinogen Qn (U) 0.2 {Mercedes'U}/dL Normal 0.2 - 1. 0 [facility] Comment on above: Performed By: #### U ACSIND, UMICRO #### [facility] [address] [address] [address] Ashwin Key URINE MICROSCOPIC ONLYon AMORPHOUS CRYSTALS FEW Normal [facility] Comment on above: Performed By: #### U ACSIND, UMICRO #### [facility] [address] [place] [address] Dr. Ashwin Key BACTERIA MODERATE Abnormal NONE SEEN [facility] Comment on above: Performed By: #### U ACSIND, UMICRO #### [facility] [address] [place] [address] Dr. Ashwin Key Bacteria identified Cx Nom (U) INDICATED Normal [facility] Comment on above: Performed By: #### U ACSIND, UMICRO #### [facility] [address] [place] [address] Dr. Ashwin Key CAST NONE SEEN Normal NONE SEEN [facility] Comment on above: Performed By: #### U ACSIND, UMICRO #### [facility] [address] [place] [address] Dr. Ashwin Key Crystals LM Nom (Urine sed) SEEN Abnormal NONE SEEN [facility] Comment on above: Performed By: #### U ACSIND, UMICRO #### [facility] [address] [address] [address] Ashwin Key Epithelial cells LM Ql (Urine sed) MANY Abnormal NONE SEEN /RARE [facility] Comment on above: Performed By: #### U ACSIND, UMICRO #### [facility] [address] [place] [address] Dr. Ashwin Key MUCOUS NONE SEEN Normal NONE SEEN [facility] Comment on above: Performed By: #### U JUNA F BUTT #### [facility] [address] [place] [address] Dr. Ashwin Key RBC 0-2 Normal 0-2 [facility] Comment on above: Performed By: #### U JOEY BUTTRO #### [facility] [address] [place] [address] Dr. Ashwin Key WBC 2-5 Abnormal NONE SEEN [facility] Comment on above: Performed By: #### U FILOMENA STACYRO #### [facility] [address] [place] [address] Dr. Ashwin Key CBC AUTO DIFFon 07-11-2022 BASO # 0.0 103/ul Normal 0.0-0.1 [facility] Comment on above: Performed By: #### C BC #### [facility] [address] [place] [address] Dr. Ashwin Key Basophils/100 WBC (Bld) 0.5 % Normal 0.2-2.0 [facility] Comment on above: Performed By: #### C BC #### [facility] [address] [place] [address] Dr. Ashwin Key EO # 0.0 103/ul Normal 0.0-0.7 [facility] Comment on above: Performed By: #### C BC #### [facility] [address] [place] [address] Dr. Ashwin Key Eosinophils/100 WBC (Bld) 0.0 % Critically low 0.9-7.0 [facility] Comment on above: Performed By: #### C BC #### [facility] [address] [place] [address] Dr. Ashwin Key Erythrocyte distribution width (RBC) [Ratio] 14.5 % Normal 11.0-15.0 [facility] Comment on above: Performed By: #### C BC #### [facility] [address] [place] [address] Dr. Ashwin Key Hematocrit (Bld) [Volume fraction] 42.5 % Normal 36.0-48.0 [facility] Comment on above: Performed By: #### C BC #### [facility] [address] [place] [address] Dr. Ashwin Key Hemoglobin (Bld) [Mass/Vol] 13.1 g/dL Normal 12.0-16.0 [facility] Comment on above: Performed By: #### C BC #### [facility] [address] [place] [address] Dr. Ashwin Key IG # 0.02 10e3/ul Normal 0.00-0.03 [facility] Comment on above: Performed By: #### C BC #### [facility] [address] [place] [address] Dr. Ashwin Key IG % 0.5 % Normal 0.0-0.5 [facility] Comment on above: Performed By: #### C BC #### [facility] [address] [place] [address] Dr. Ashwin Key LYMPH # 2.1 103/ul Normal 1.2-3.8 [facility] Comment on above: Performed By: #### C BC #### [facility] [address] [place] [address] Dr. Ashwin Key Lymphocytes/100 WBC (Bld) 48.2 % Normal 20.5-60.0 [facility] Comment on above: Performed By: #### C BC #### [facility] [address] [place] [address] Dr. Ashwin Key MANUAL DIFF REQ NO Normal [facility] Comment on above: Performed By: #### C BC #### [facility] [address] [place] [address] Dr. Ashwin Key MCH (RBC) [Entitic mass] 28.4 pg Normal 26.7-34.0 [facility] Comment on above: Performed By: #### C BC #### [facility] [address] [place] [address] Dr. Ashwin Key MCHC (RBC) [Mass/Vol] 30.8 g/dL Normal 29.9-35.2 [facility] Comment on above: Performed By: #### C BC #### [facility] [address] [address] [address] Ashwin Key MCV (RBC) [Entitic vol] 92.2 fL Normal 81.0-99.0 [facility] Comment on above: Performed By: #### C BC #### [facility] [address] [address] [address] Ashwin Key MONO # 0.4 103/ul Normal 0.3-0.8 [facility] Comment on above: Performed By: #### C BC #### [facility] [address] [place] [address] Dr. Ashwin Key Monocytes/100 WBC (Bld) 8.7 % Normal 1.7-12.0 [facility] Comment on above: Performed By: #### C BC #### [facility] [address] [place] [address] Dr. Ashwin Key NEUT # 1.8 103/ul Normal 1.4-6.5 [facility] Comment on above: Performed By: #### C BC #### [facility] [address] [place] [address] Dr. Ashwin Key Neutrophils/100 WBC (Bld) 42.1 % Critically low 43.0-75.0 [facility] Comment on above: Performed By: #### C BC #### [facility] [address] [place] [address] Dr. Ashwin Key Platelet mean volume (Bld) [Entitic vol] 10.4 fL Normal 9.5-13.5 [facility] Comment on above: Performed By: #### C BC #### [facility] [address] [place] [address] Dr. Ashwin Key PLT 159 103/ul Normal 150-450 [facility] Comment on above: Performed By: #### C BC #### [facility] [address] [place] [address] Dr. Ashwin Key RBC 4.61 106/ul Normal 4.20-5.40 [facility] Comment on above: Performed By: #### C BC #### [facility] [address] [address] [address] Ashwin Key WBC 4.3 103/ul Normal 4.0-11.0 [facility] Comment on above: Performed By: #### C BC #### [facility] [address] [address] [address] Ashwin Key PROF CHEM 8 (BAS METB)on Anion gap [Moles/Vol] 10.2 mmol/L Normal [facility] Comment on above: Performed By: #### B MP #### [facility] [address] [address] [address] Ashwin Key Calcium [Mass/Vol] 8.5 mg/dL Normal 8.5-10.1 [facility] Comment on above: Performed By: #### B MP #### [facility] [address] [address] [address] Ashwin Key Chloride [Moles/Vol] 104 mmol/L Normal 98-107 [facility] Comment on above: Performed By: #### B MP #### [facility] [address] [address] [address] Ashwin Key CO2 [Moles/Vol] 32.6 mmol/L Critically high 21.0-32.0 [facility] Comment on above: Performed By: #### B MP #### [facility] [address] [address] [address] Ashwin Key Creatinine [Mass/Vol] 0.91 mg/dL Normal 0.55-1.02 [facility] Comment on above: Performed By: #### B MP #### [facility] [address] [address] [address] Ashwin Key EGFR-AF MOROCCAN >60 Normal >=60 [facility] Comment on above: Performed By: #### B MP #### [facility] [address] [address] [address] Ashwin Key EGFR-NON AF MOROCCAN =60 Normal >=60 [facility] Comment on above: Performed By: #### B MP #### [facility] [address] [address] [address] Ashwin Key Glucose [Mass/Vol] 89 mg/dL Normal 74-106 [facility] Comment on above: Performed By: #### B MP #### [facility] [address] [address] [address] Ashwin Key Potassium [Moles/Vol] 3.8 mmol/L Normal 3.5-5.1 [facility] Comment on above: Performed By: #### B MP #### [facility] [address] [address] [address] Ashwin Key Sodium [Moles/Vol] 143 mmol/L Normal 136-145 [facility] Comment on above: Performed By: #### B MP #### [facility] [address] [address] [address] Ashwin Key Urea nitrogen [Mass/Vol] 26.0 mg/dL Critically high 7.0-18.0 [facility] Comment on above: Performed By: #### B MP #### [facility] [address] [address] [address] Ashwin Key Urea nitrogen/Creatinine [Mass ratio] 28.6 mg/mg Normal [facility] Comment on above: Performed By: #### B MP #### [facility] [address] [address] [address] Ashwin Key CULTURE URINEon 02-11-2022 CULTURE [...] F Trimethoprim/Sulfameth oxazole <=20 S F Normal [facility] Comment on above: Performed By: #### U ACSIND, UMICRO #### [facility] [address] [address] [address] Ashwin Key CBC AUTO DIFFon 02-07-2022 BASO # 0.0 103/ul Normal 0.0-0.1 [facility] Comment on above: Performed By: #### C BC #### [facility] [address] [address] [address] Ashwin Key Basophils/100 WBC (Bld) 0.5 % Normal 0.2-2.0 [facility] Comment on above: Performed By: #### C BC #### [facility] [address] [address] [address] Ashwin Key EO # 0.0 103/ul Normal 0.0-0.7 [facility] Comment on above: Performed By: #### C BC #### [facility] [address] [place] [address] Dr. Ashwin Key Eosinophils/100 WBC (Bld) 0.0 % Critically low 0.9-7.0 [facility] Comment on above: Performed By: #### C BC #### [facility] [address] [place] [address] Dr. Ashwin Key Erythrocyte distribution width (RBC) [Ratio] 13.4 % Normal 11.0-15.0 [facility] Comment on above: Performed By: #### C BC #### [facility] [address] [place] [address] Dr. Ashwin Key Hematocrit (Bld) [Volume fraction] 46.8 % Normal 36.0-48.0 [facility] Comment on above: Performed By: #### C BC #### [facility] [address] [place] [address] Dr. [place] Hemoglobin (Bld) [Mass/Vol] 14.2 g/dL Normal 12.0-16.0 [facility] Comment on above: Performed By: #### C BC #### [facility] [address] [place] [address] Dr. Ashwin Key IG # 0.05 10e3/ul Critically high 0.00-0.03 [facility] Comment on above: Performed By: #### C BC #### [facility] [address] [place] [address] Dr. Ashwin Key IG % 0.6 % Critically high 0.0-0.5 [facility] Comment on above: Performed By: #### C BC #### [facility] [address] [place] [address] Dr. Ashwin Key LYMPH # 2.0 103/ul Normal 1.2-3.8 [facility] Comment on above: Performed By: #### C BC #### [facility] [address] [place] [address] Dr. Ashwin Key Lymphocytes/100 WBC (Bld) 22.9 % Normal 20.5-60.0 [facility] Comment on above: Performed By: #### C BC #### [facility] [address] [place] [address] Dr. Ashwin Key MANUAL DIFF REQ NO Normal [facility] Comment on above: Performed By: #### C BC #### [facility] [address] [place] [address] Dr. Ashwin Key MCH (RBC) [Entitic mass] 29.1 pg Normal 26.7-34.0 [facility] Comment on above: Performed By: #### C BC #### [facility] [address] [place] [address] Dr. Ashwin Key MCHC (RBC) [Mass/Vol] 30.3 g/dL Normal 29.9-35.2 [facility] Comment on above: Performed By: #### C BC #### [facility] [address] [place] [address] Dr. Ashwin Key MCV (RBC) [Entitic vol] 95.9 fL Normal 81.0-99.0 [facility] Comment on above: Performed By: #### C BC #### [facility] [address] [place] [address] Dr. Ashwin Key MONO # 0.9 103/ul Critically high 0.3-0.8 [facility] Comment on above: Performed By: #### C BC #### [facility] [address] [address] [address] Ashwin Key Monocytes/100 WBC (Bld) 10.9 % Normal 1.7-12.0 [facility] Comment on above: Performed By: #### C BC #### [facility] [address] [address] [address] Ashwin Key NEUT # 5.6 103/ul Normal 1.4-6.5 [facility] Comment on above: Performed By: #### C BC #### [facility] [address] [place] [address] Dr. Ashwin Key Neutrophils/100 WBC (Bld) 65.1 % Normal 43.0-75.0 [facility] Comment on above: Performed By: #### C BC #### [facility] [address] [place] [address] Dr. Ashwin Key Platelet mean volume (Bld) [Entitic vol] 10.6 fL Normal 9.5-13.5 [facility] Comment on above: Performed By: #### C BC #### [facility] [address] [place] [address] Dr. Ashwin Key PLT 203 103/ul Normal 150-450 [facility] Comment on above: Performed By: #### C BC #### [facility] [address] [place] [address] Dr. Ashwin Key RBC 4.88 106/ul Normal 4.20-5.40 [facility] Comment on above: Performed By: #### C BC #### [facility] [address] [place] [address] Dr. Ashwin Key WBC 8.6 103/ul Normal 4.0-11.0 [facility] Comment on above: Performed By: #### C BC #### [facility] [address] [place] [address] Dr. Ashwin Key PROF 14(COMP METB)on 022 Albumin [Mass/Vol] 3.6 g/dL Normal 3.4-5.0 [facility] Comment on above: Performed By: #### U ACSIND, UMICRO #### [facility] [address] [address] [address] Ashwin Key Albumin/Globulin [Mass ratio] 1.2 {ratio} Normal [facility] Comment on above: Performed By: #### U ACSIND, UMICRO #### [facility] [address] [address] [address] Ashwin Key ALP [Catalytic activity/Vol] 128 U/L Critically high 46-116 [facility] Comment on above: Performed By: #### U ACSIND, UMICRO #### [facility] [address] [address] [address] Ashwin Key ALT [Catalytic activity/Vol] 20 U/L Normal 14-59 [facility] Comment on above: Performed By: #### U ACSIND, UMICRO #### [facility] [address] [address] [address] Ashwin Key Anion gap [Moles/Vol] 12.0 mmol/L Normal [facility] Comment on above: Performed By: #### U ACSIND, UMICRO #### [facility] [address] [address] [address] Ashwin Key AST [Catalytic activity/Vol] 18 U/L Normal 15-37 [facility] Comment on above: Performed By: #### U ACSIND, UMICRO #### [facility] [address] [address] [address] Ashwin Key Bilirubin [Mass/Vol] 0.8 mg/dL Normal 0.2-1.0 [facility] Comment on above: Performed By: #### U ACSIND, UMICRO #### [facility] [address] [address] [address] Ashwin Key Calcium [Mass/Vol] 8.1 mg/dL Critically low 8.5-10.1 [facility] Comment on above: Performed By: #### U ACSIND, UMICRO #### [facility] [address] [address] [address] Ashwin Key Chloride [Moles/Vol] 99 mmol/L Normal 98-107 [facility] Comment on above: Performed By: #### U ACSJAZMIN UMICRO #### [facility] [address] [address] [address] Ashwin Key CO2 [Moles/Vol] 33.7 mmol/L Critically high 21.0-32.0 [facility] Comment on above: Performed By: #### U ACSJAZMIN UMICRO #### [facility] [address] [address] [address] Ashwin Key Creatinine [Mass/Vol] 1.07 mg/dL Critically high 0.55-1.02 [facility] Comment on above: Performed By: #### U ACSJAZMIN UMICRO #### [facility] [address] [place] [address] Dr. Ashwin Key EGFR-AF MOROCCAN 60 mL/min/1.73m2 Normal >=60 [facility] Comment on above: Performed By: #### U ACSJAZMIN UMICRO #### [facility] [address] [place] [address] Dr. Ashwin Key EGFR-NON AF MOROCCAN 50 mL/min/1.73m2 Critically low >=60 [facility] Comment on above: Performed By: #### U ACSJAZMIN UMICRO #### [facility] [address] [place] [address] Dr. Ashwin Key Globulin (S) [Mass/Vol] 3.0 g/dL Normal [facility] Comment on above: Performed By: #### U ACSJAZMIN UMICRO #### [facility] [address] [place] [address] Dr. Ashwin Key Glucose [Mass/Vol] 76 mg/dL Normal 74-106 [facility] Comment on above: Performed By: #### U ACSJAZMIN UMICRO #### [facility] [address] [place] [address] Dr. Ashwin Key Potassium [Moles/Vol] 4.7 mmol/L Normal 3.5-5.1 [facility] Comment on above: Performed By: #### U ACSJAZMIN UMICRO #### [facility] [address] [address] [address] [place]win Key Protein [Mass/Vol] 6.6 g/dL Normal 6.4-8.2 [facility] Comment on above: Performed By: #### U ACSIND, UMICRO #### [facility] [address] [address] [address] Ashwin Key Sodium [Moles/Vol] 140 mmol/L Normal 136-145 [facility] Comment on above: Performed By: #### U ACSJAZMIN, ICRO #### [facility] [address] [address] [address] Ashwin Key Urea nitrogen [Mass/Vol] 31.0 mg/dL Critically high 7.0-18.0 [facility] Comment on above: Performed By: #### U ACSJAZMIN ICRO #### [facility] [address] [address] [address] Ashwin Key Urea nitrogen/Creatinine [Mass ratio] 29.0 mg/mg Normal [facility] Comment on above: Performed By: #### [facility] #### [facility] [address] [address] [address] Ashwin Key UA RANDOMon 02-07-2022 Bilirubin Ql (U) Negative Normal NEGATIVE [facility] Comment on above: Performed By: #### U A #### [facility] [address] [address] [address] Ashwin Key Clarity (U) CLEAR Normal CLEAR [facility] Comment on above: Performed By: #### U A #### [facility] [address] [address] [address] Ashwin Key Color (U) LT. YELLOW Normal YELLOW [facility] Comment on above: Performed By: #### U A #### [facility] [address] [place] [address] Dr. Ashwin Key Glucose Ql (U) Negative Normal NEGATIVE [facility] Comment on above: Performed By: #### U A #### [facility] [address] [place] [address] Dr. Ashwin Key Hemoglobin Ql (U) Negative Normal NEGATIVE [facility] Comment on above: Performed By: #### U A #### [facility] [address] [place] [address] Dr. Ashwin Key Ketones Ql (U) TRACE Abnormal NEGATIVE [facility] Comment on above: Performed By: #### U A #### [facility] [address] [place] [address] Dr. Ashwin Key LEUKOCYTES SMALL Abnormal NEGATIVE [facility] Comment on above: Performed By: #### U A #### [facility] [address] [place] [address] Dr. Ashwin Key Nitrite Ql (U) Positive Abnormal NEGATIVE [facility] Comment on above: Performed By: #### U A #### [facility] [address] [place] [address] Dr. Ashwin Key pH (U) 6.0 [pH] Normal 5-9 [facility] Comment on above: Performed By: #### U A #### [facility] [address] [place] [address] Dr. Ashwin Key SPEC GRAVITY 1.020 Normal 1.005-<=1.02 5 [facility] Comment on above: Performed By: #### U A #### [facility] [address] [place] [address] Dr. Ashwin Key UA PROTEIN Negative Normal NEGATIVE/ TRACE [facility] Comment on above: Performed By: #### U A #### [facility] [address] [place] [address] Dr. Ashwin Key Urobilinogen Qn (U) 1.0 {Mercedes'U}/dL Normal 0.2 - 1. 0 [facility] Comment on above: Performed By: #### U A #### [facility] [address] [place] [address] Dr. Ashwin Key K (Potassium)on 01-30-2017 Potassium molar conc 4.2 mmol/L Normal 3.7-5.3 [facility] Comment on above: Result Comment: Perf ormed at [facility] [address] [place] [address] [place] [address] Performed By: #### K ####Radha Kirkpatrick [address] [place] [address] Encounters Encounter Date Encounter Type Care Provider Facility Start: 11-20-2023 Evaluation and management of inpatient [facility]SSIE [facility] Start: 11-15-2023 [facility] Start: 11-15-2023 [facility] Start: 11-15-2023 Evaluation and management of inpatient [facility] Start: 11-14-2023 [facility] Start: 11-14-2023 Evaluation and management of inpatient YUE BRODY [facility] Start: 11-13-2023 Evaluation and management of inpatient FRAN LANDRY [facility] Start: 11-13-2023 End: 11-22-2023 Evaluation and management of inpatient REGLA SALAZAR [facility] Start: 08-22-2022 End: 08-22-[address] PRANAV [...] BEE Payers Date Payer Category Payer Medicare [id number] 2016 Medicare [id number] 1960 Medicaid [id number] 1960 Medicare [id number] 1945 Unknown [id number] [id number] 1945 Unknown [id number] 2.16.84 [id number] 1945 Unknown [id number] 2.16.84 [id number] 1945 Unknown [id number] 2.16.84 [id number] 1945 Unknown [id number] 2.16.84 [id number] Clinical Notes 11-14-2023 to 11-22-2023 Note Date & Type Note Facility 11-22-2023 Note Pt ready for dischar and [facility] ready to accept back. Arranged 3pm BLS transport via [facility]. Sent final AVS via [employer] and direct fax. Assembled transfer packet and placed by chart. Notified RN, pt at bedside, and left voicemail for legal guardian Song Rowland. [facility] 11-21-2023 Note Occupational Therapy Check no charge [...] Charge Time attempted: 1550 Ivan OTR/L, MOT [facility] 11-21-2023 Note Sent updates to [facility] and advised of possible discharge today. [facility] 11-20-2023 Note Pharmacy Documentati on of KCENTRA [...] Andrew Rx number of order for reference: [id number] Pharmacy will sign off at this time. Please call with any additional questions or concerns. Thank you for the consult. MANDO CARDOZA, PharmD, BCCCP 11/20/2023 [facility] 11-20-2023 Note Occupational Therapy OT Check no charge Name: Celia Menon Date of : 1945 Today's Date: 11/20/23 Pt is unable to be seen for therapy at this time secondary to Medically unstable. Pt s current Hbg is 5.6, will be getting blood transfusion. Will check back and complete therapy session as appropriate. Check No Charge Time attempted: 1520 Ivan OTR/L, [facility] 11-20-2023 Note Physical Therapy Name: Celia Menon Date of : 1945 Today's Date: 11/20/23 Pt is unable to be seen for therapy at this time secondary to Medically unstable. Pt with Hgb of 5.6 this AM. Receiving blood transfusion. PT eval held- will check back and complete therapy session as appropriate. Check No Charge Time attempted: 1357 Tatianna Nuno PT, MPT [facility] 11-20-2023 Note [facility] P[facility] ARE PROGRESS [...] get back to her LTC facility in [place]. Reviewed Hospice as an alternative to continued aggressive care. He is not interested in this at this time and feels the pt wouldn't be either. We will continue to support and follow as needed. [facility] 11-19-2023 Note Occupational Therapy OT Check no [...] Time attempted: 1005- 1012 ELSAarnie OTR/L, [facility] 11-19-2023 Note Subjective Patient seen on 6AB [...] on results, prior to discharge back to [facility]. Patient and POA confirmed patient is not [...] Tylenol, Oxycodone, Mo (more content not included)... [facility] 11-19-2023 Note Physical Therapy Name: Celia Menon [...] Charge Time attempted: 1321 Tatianna Nuno PT, [facility] 11-18-2023 Note Subjective Patient seen on 6AB [...] Planning to return to SNF at discharge. [facility] 11-18-2023 Note Date: 11/18/2023 Surgery: 11/14/2023 - [...] Nunn MD Orthopaedic Surgery, Resident Ortho Pager [phone] 11/18/23 7:40 AM May contact the on-call resident with any concerns via the Orthopaedic pager at any time. I am available via [employer] 6a-6p. May contact the on-call resident with any concerns via the Orthopaedic pager at any time. [facility] 11-17-2023 Note Occupational Therapy OT Check no charge Name: Celia Menon Date of : 1945 Today's Date: 11/17/23 Pt is unable to be seen for therapy at this time secondary to Medically unstable, RN hold. Will check back and complete therapy session as appropriate. Check No Charge Time attempted: 1516 Ivan OTR/L, MOT [facility] 11-17-2023 Note Physical Therapy Name: Celia Menon Date of : 1945 Today's Date: 11/17/23 Pt is unable to be seen for therapy at this time secondary to Medically unstable. Will check back and complete therapy session as appropriate. Check No Charge Time attempted: 1020 Tatianna Nuno PT, [facility] 11-17-2023 Note Sent updates to [facility]. Unclear at this point if pt will need pre-cert to return. UPDATE 10:40AM- Advised by [place] pt is a bed hold and no pre-cert is necessary. [facility] 07-05-2024 Note Subjective Pt transferred from SICU [...] kg (300 lb 14.9 oz) (11/16 438) [place] Coma Scale Score: 14 No intake or [...] Other: DNRcc Dispo: Planning SNF at discharge. [facility] 11-17-2023 Note Date: 11/16/2023 Surgery: 11/14/2023 - [...] Robledo MD Orthopaedic Surgery, Resident Ortho Pager [phone] 11/16/23 8:52 AM May contact the on-call resident with any concerns via the Orthopaedic pager at any time. I am available via [employer] 6a-6p. May contact the on-call resident with any concerns via the Orthopaedic pager at any time. [facility] 11-16-2023 Note Problem: Communicati on Thought Process [...] will demonstrate adequate sleep/rest pattern Outcome: Progressing [facility] 11-16-2023 Note ------ Attestation signed by Aric [...] Robledo MD Orthopaedic Surgery, Resident Ortho Pager [phone] 11/16/23 8:52 AM May contact the on-call resident with any concerns via the Orthopaedic pager at any time. I am available via [employer] 6a-6p. May contact the on-call resident with any concerns via the Orthopaedic pager at any time. [facility] 11-15-2023 Note ------ Attestation signed by Aric [...] Derrick Rahman, Orthopedic Surgery, PGY2 Ortho Pager [phone] 11/15/23 4:00 PM I am available via [employer] 6a-6p. May contact the on-call resident with any concerns via the Orthopaedic pager at any time. [facility] 11-15-2023 Note Adult Nutrition Asse ssment: Name: [...] OA (osteoarthritis) Obesity PVD (peripheral vascular disease) ([facility]) Renal failure Sick sinus syndrome ([facility]) Tinea unguium Current Medications: lidocaine (cardiac), , [...] (Calculated): 44.29 Wt change: 114.8 kg (11/13/23) [facility] transfer record. UBW 250s to 260s per SNF staff. IBW: 59 kg Nutrition Assessment: Nutrition history: physically unable to obtain history Per [facility] staff, regular diet, appetite wnl, will order tray delivery aide on occasion, fed self. No use of ONS. No nutrition related concerns expressed. Dietary Orders (From admission, onward) Start Ordered 11/15/23 0310 Diet NPO Diet effective now Comments: Sips with medications Question: Reason for NPO: Answer: Nausea/Vomiting 11/15/23 0309 Nutrition Risk: Moderate Nutrition Needs: Needs based on: ideal body weight Calorie needs: 3399-1373 kcals/day based on Equation: 25-30 kcal/kg Protein needs: 70-82 g/day based on 1.2-1.4 g/kg Fluid needs: 1500 ml/day Nutrition Diagnosis: Suboptimal inake related to treatments & interventions as evidenced by surgery & postop vasopressor support. Malnutrition Assessment: Patient at risk for malnutrition according to hospital criteria, but does not meet the clinical characteristics per the Academy of Nutrition and Dietetics, and the [place] Society of Enteral and Parenteral Nutrition to support the diagnosis of malnutrition. Treatment Plan: Monitor NPO status AAT 2g Na when hemodynamically stable Vit D3 supplementation when able to take PO meds, 1250 mcg once/week GOAT FARMER Goals: Nutrition Goals: maintain visceral protein Contact the dietitian via [employer] chat 8A-4P Monday through Monday or call extension [phone]. For s & holidays, the dietitian can be reached via pager [phone] from 9A-3P. Unable to respond to [employer] messages on Monday & . [facility] 11-15-2023 Note Pharmacy Dosing Serv ice - Vancomycin Initial Consult Note Pharmacy has been consulted for the dosing and evaluation of Drug: Vancomycin Indication: bacteremia AUC 400-600 mg*hr/L and trough 10-20 mcg/mL Labs and Renal Function Total body weight: 124 kg (274 lb 4 oz) [place] body weight: 59.3 kg (130 lb 11.7 [...] Plan: -Start vancomycin 2000 mg once and [id number] due to advanced age and high BMI -Plan to check serum peak and trough levels after first dose -Check BUN/SCr daily -Pharmacy will follow up daily on culture and sensitivity results and renal function -Please do not hesitate to contact us with comments or questions Thank you, Santiago Marcelo, PharmD, 11/15/23 [facility] 11-15-2023 Note 1013 communication received that Legal Guardian has not been able to be reached to make medical care decisions; clinical documentation is indicating that Patient has a notable change in condition from last known baseline and Legal Guardian is needed to make decisions for Patient at this time ([phone]) PC to Legal Guardian Song Rowland; line immediately went to voicemail; vm left with message to urgently return call ([phone]) PC to [facility] to enquire if they have additional/different contact information for Patient's Legal Guardian; Bernadette answered, Song Rowland Jr is emergency contact and cell phone number is [phone] and work phone number is [phone] ([phone]) PC to Legal Guardian Song Rowland; dental receptionist stating they have been trying to get ahold of Legal Guardian with no success; dental receptionist stating they have [employer] Supervisor of Record noted as Michael Wilson; dental receptionist transferred editorial writer to Michael Wilson; editorial writer asked Michael to arrange for communication [...] he is traveling to a different state; editorial writer stating Legal Guardian is needed to talk with physician about Patient's current medical status and to make decisions about medical care today; Legal Guardian stating he can be called at [phone], editorial writer stating that number has been called multiple times (including this morning) and calls are not being answered; Legal Guardian stating his 's phone number is [phone] notice of Legal Guardian's 's phone number shared to medical team, for physician to get care decisions from Legal Guardian [facility] 11-15-2023 Note Cardiology Progress Note REASON FOR [...] femur fracture following a fall at there snf. Cardiology was consulted for pre-op clearance. Patient [...] g in 100 (more content not included)... [facility] 11-15-2023 Note Patient: Celia Menon Procedure Summary Date: 11/14/23 Room / Location: [facility] OPERATING [facility]OM 02 / [facility] Operating Room Anesthesia Start: 1851 Anesthesia Stop: [...] per anesthesia protocol. No notable events documented. [facility] 11-14-2023 Note Airway Date/Time: 11/14/2023 6:59 PM Urgency: elective General Information and Staff Patient location during procedure: OR Anesthesiologist: Song Mena MD Resident/[employer]IES SUPERVISOR/CAA: Selvin Wiggins MD Performed: resident/[employer] SUPERVISOR/CAA Indications and Patient Condition Indications for airway management: anesthesia Spontaneous Ventilation: absent Sedation level: deep Preoxygenated: yes Mask difficulty assessment: 1 - vent by mask Final Airway Details Final airway type: endotracheal airway Successful airway: ETT Cuffed: yes Successful intubation technique: video laryngoscopy Facilitating devices/methods: intubating stylet Endotracheal tube insertion site: oral Blade: Kimball Blade size: #3 ETT size (mm): 7.5 Cormack-Lehane Classification: grade I - full view of glottis Placement verified by: chest auscultation and capnometry Measured from: lips Number of attempts at approach: 1 Number of other approaches attempted: 0 [facility] 11-14-2023 Note Arterial Line: Date/Time: 11/14/2023 7:31 [...] procedure well with no complications. Staffing Performed: resident/[employer] SUPERVISOR/CAA Anesthesiologist: Song Mena MD Resident/[employer] SUPERVISOR: Khurram Romano MD Performed by: Selvin Wiggins MD Authorized by: Song Mena MD [facility] 11-14-2023 Note Patient: Celia Menon Procedure Information Date/Time: 11/14/23 1900 Procedures: ORIF, FRACTURE, FEMUR (Left: Thigh - Leg Upper) - PPFX System with distal plate attachment; intramedullary fibular strut.Request to follow second case CLOSED REDUCTION, FRACTURE, FEMUR (Left: Thigh - Leg Upper) Location: [facility] OPERATING ROOM 02 / [facility] Operating Room Surgeons: Aric Smith MD Relevant [...] teeth; quit smoking many years ago; denies [place], CAD, DM; has atrial fibrillation, last took Eliquis yesterday (11/13/23). Chart says pt. Has dementia, but she was oriented, answered questions clearly. Encounter Date: 11/13/23 ECG 12 lead Result Value Ventricular Rate 108 QRS DURATION 88 QT Interval 336 QTC CALCULATION(BAZETT) 450 R-[place] 35 T Wave [place] 62 Impression Atrial fibrillation with rapid ventricular response Nonspecific ST and T wave abnormality Abnormal ECG No previous ECGs available Confirmed by Adam EMERY, ERMA Martinez ([id number]) on 11/14/2023 10:39:31 AM Complete Echo (TTE) w/wo Imaging Agent, Strain, 3D, Bubble Study Result Date: 11/14/2023 1 1 [facility] [address] [place] [address] [phone] (fax) Echocardiogram-[facility] Name: CELIA MENON Study Date: 11/14/2023 09:04 AM B/P: 115 mmHg/65 mmHg HR: 100 bpm Date of : 1945 Location: [facility] Height: 66 in. Age: 78 year(s) Patient Room: 7468 Weight: 253 lb. Gender: Female Patient Status: [...] function is d (more content not included)... [facility] 11-14-2023 Note EDISON rec'd request thi s am to assist in locating LG for patient for consent for surgery. Patient Legal Guardian listed is Song Rowland. He is an employment attorney out of [facility] [employer] [facility]. Per the Legal office he has retired but he is still maintaining his Guardianship svs. EDISON called and left multiple messages 1 this am and 1 this afternoon. EDISON called [facility] where patient was from. They did not have any additional numbers for contact. LG cell is [phone]. EDISON called [employer] [facility] and verified if they had any other options to reach LG or suggestions. They did not have any other contacts. They suggested if he did not response in a timely fashion and we had continued concerns we could fax a motion to the court with concerns. Fax: [phone]. EDISON notified medical team of above. They determined they would proceed with out consent after having 2 attendings agree that importance of proceeding rima for surgery. At 3:45pm EDISON rec'd phone call from . He stated he is having issues with his cell phone. He is working to get it repaired and he had just rec'd messages. He confirmed [facility] will [facility] once medically ready. He confirmed their house doctor follows for primary care. Edison transferred call to Dr Robledo as requested for consents to be discussed. Sw to send referral to [facility] and follow until medically ready for dc. [facility] 11-14-2023 Note Occupational Therapy OT Check no charge Name: Celia Menon Date of : 1945 Today's Date: 11/14/23 Pt is unable to be seen for therapy at this time secondary to Surgery. Will check back and complete therapy session as appropriate. Check No Charge Time attempted: 1011 [facility] 11-14-2023 Note Physical Therapy Name: Celia Menon Date of : 1945 Today's Date: 11/14/23 Pt is unable to be seen for therapy at this time secondary to Surgery pending for fixation of fracture. Will check back and complete therapy session as appropriate. Check No Charge Time attempted: 0830 Tatianna Nuno PT, MPT [facility] 11-14-2023 Note ------ Attestation signed by Aric [...] Rahman DO Orthopedic Surgery, PGY1 Ortho Pager [phone] 11/14/23 8:26 AM I am available via [employer] 6a-6p. May contact the on-call resident with any concerns via the Orthopaedic pager at any time. [facility] 11-14-2023 Note Subjective Pt came in overnight [...] Interval 336 ms QTC CALCULATION(BAZETT) 450 ms R-[place] 35 degrees T Wave [place] 62 degrees POCT glucose meter Collection Time: [...] Immature Granulocytes Absolute (more content not included)... [facility] Summary Purpose Family History No Family History [...] DATE CREATED AUTHOR AUTHOR'S ORGANIZ ATION 11/27/2023 [facility] FOR RECORDS PERTAINING TO PATIENTS WHO [...] BE BASED ON THE PRIMARY CLINICAL RECORDS. [facility]. provides no warranty or guarantee of the accuracy or completeness of information in this document.
[2023-12-01 15:14] LABS: Basophils Percent Auto 0.3 % (0.2-2.0); Hematocrit 28.6 % (36.0-48.0); Hemoglobin 8.3 g/dL (12.0-16.0); Immature Granulocytes Abs Auto 0.05 10^3/uL (0.00-0.03); Immature Granulocytes Pct Auto 0.8 % (0.0-0.5); Lymphocytes Absolute Auto 1.2 10^3/uL (1.2-3.8); Mean Corpuscular Volume 103.2 fL (81.0-99.0); Mean Platelet Volume 10.1 fL (9.5-13.5); Monocytes Absolute Auto 0.5 10^3/uL (0.3-0.8); Monocytes Percent Auto 8.1 % (1.7-12.0); Neutrophils Absolute Auto 4.1 10^3/uL (1.4-6.5); Neutrophils Percent Auto 69.8 % (43.0-75.0); Platelet Count 298 10^3/uL (150-450); Red Blood Count 2.77 10^6/uL (4.20-5.40); Red Cell Distribution Width 22.8 % (11.0-15.0); White Blood Count 5.9 10^3/uL (4.0-11.0)
[2023-12-01 15:31] LABS: Alanine Aminotransferase 33 U/L (14-59); Albumin Globulin Ratio 0.4; Albumin Level 1.5 g/dL (3.4-5.0); Alkaline Phosphatase 98 U/L (46-116); Anion Gap 7.2; Aspartate Amino Transferase 15 U/L (15-37); BUN Creatinine Ratio 29.4; Bilirubin Total 1.1 mg/dL (0.2-1.0); C Reactive Protein 8.88 mg/dL (<=0.50); Calcium 7.3 mg/dL (8.5-10.1); Carbon Dioxide 34.6 mmol/L (21.0-32.0); Chloride 104 mmol/L (98-107); Estimated GFR (African America >60 (>=60); Estimated GFR (Non-African Ame 52 (>=60); Globulin 3.6 g/dL; Glucose 102 mg/dL (74-106); Potassium 3.8 mmol/L (3.5-5.1); Sodium 142 mmol/L (136-145); Total Protein 5.1 g/dL (6.4-8.2)
[2023-12-01 15:56] LABS: Erythrocyte Sedimentation Rate 56 mm/hr (<=30)
== END 2023-12-01 13:40 | disposition home or self-care (01) ==
LOC: LAB 13:39
PROVIDERS: PCP Family Medicine; Visit Provider Family Medicine
DX: Z48.89 Encounter for other specified surgical aftercare (principal); T81.89XA Other complications of procedures, not elsewhere classified, initial encounter
CPT/HCPCS: 36415; 80053; 85025; 85652; 86140; 87070; 87075; 87186

== ENCOUNTER 2023-12-04 07:40 | Emergency (ER) | payer MEDICARE, MEDICAID, SELFPAY ==
[2023-12-04] VITALS (38 sets, daily range): BP systolic 89–116; BP diastolic 50–71; PULSE 66–116; TEMP 36.4; O2SAT 69–99; BMI 48.4
--- OUTSIDE RECORDS SUMMARY | 2023-12-04 07:50 | XMS_ITS | CCD ---
Author Organization [facility] Care Team Providers Care Electrical Worker Name Role Phone NEPTALI VILLALTA Unavailable Unavailabl [...] Interpretation Reference Range Facility 36on 11-23-2023 36 [facility] called and states that they only have transportation in the PM for patients with stretchers. They are unable to bring patient to Post-op appointment on 11/28. They also would like to report heavy drainage. No other issues. Please call [phone] and ask for patients nurse to reschedule appointment. [facility] Telephoneon 11-23-2023 Telephone [phone] Marisol Menon 1945 F Replaced By [facility] Provider Department Center 11/23/2023 GIBRAN HEBERT MP ORTHO MPORTHO No family history on file Reason for Visit and Comments: Appointment [375] [facility] 30on 11-22-2023 30 Problem: Pain [...] injury from restraints (Restraint for Interference with Rhinologist) Outcome: Progressing Goal: Free from restraint(s) (Restraint for Interference with Rhinologist) Outcome: Progressing Problem: Terminal Illness Goal: Patient's [...] to the hospice team Outcome: Progressing Goal: Tranquillity with care giving, psychosocial, and end of [...] pain medication as ordered, q2 turns. Normal [facility] BASIC METABOLIC PANELon 07-1 0 Anion gap [Moles/Vol] 8 mmol/L Normal 7-20 [facility] Comment on above: Performed By: #### L [id number] #### [facility] (BEAKER) [address] [place] [address] Calcium [Mass/Vol] 6.7 mg/dL Low 8.6-10.3 [facility] Comment on above: Performed By: #### L [id number] #### [facility] ([facility] [address] [place] [address] Chloride [Moles/Vol] 106 mmol/L Normal 98-107 [facility] Comment on above: Performed By: #### L [id number] #### [facility] ([facility] [address] [place] [address] CO2 [Moles/Vol] 29 mmol/L Normal 21-31 [facility] Comment on above: Performed By: #### L [id number] #### [facility] (BEAKER) [address] [place] [address] Creatinine [Mass/Vol] 0.84 mg/dL Normal 0.60-1.20 [facility] Comment on above: Performed By: #### L [id number] #### [facility] (BEAKER) [address] [place] [address] GLOMERULAR FILTRATION RATE ML/MIN/1.73 SQ M.PREDICTED 70.6 mL/min/1.73m*2 Normal >60.0 [facility] Comment on above: Result Comment: [facility]???s estimated glomerular filtration rate (eGFR) will [...] individuals. Performed By: #### L [id number] #### [facility] ([facility]) [address] [place] [address] Glucose [Mass/Vol] 87 mg/dL Normal 70-100 [facility] Comment on above: Performed By: #### L [id number] #### [facility] ([facility]) [address] [place] [address] Potassium [Moles/Vol] 4.2 mmol/L Normal 3.5-5.1 [facility] Comment on above: Performed By: #### L [id number] #### [facility] ([facility]) [address] [place] [address] Sodium [Moles/Vol] 139 mmol/L Normal 136-145 [facility] Comment on above: Performed By: #### L [id number] #### [facility] ([facility]) [address] [place] [address] Urea nitrogen [Mass/Vol] 34 mg/dL High 7-25 [facility] Comment on above: Performed By: #### L [id number] #### [facility] ([facility]) [address] [place] [address] UREA NITROGEN/CREATININE (MASS RATIO) IN SER/PLAS 40.5 Normal [facility] Comment on above: Performed By: #### L [id number] #### [facility] ([facility]) [address] [place] [address] CBC WITH AUTO DIFFERENTIALon 11-22-2023 Erythrocyte distribution width (RBC) [Ratio] 22.2 % High 11.5-15.0 [facility] Comment on above: Performed By: #### L [id number] #### [facility] ([facility]) [address] [place] [address] ERYTHROCYTE MEAN CORPUSCULAR HEMOGLOBIN CONCENTRATION (G/DL) BY AUTOMATED 31.5 g/dL Low 32.0-35.0 [facility] Comment on above: Performed By: #### L [id number] #### [facility] (BEAKER) [address] [place] [address] Hematocrit (Bld) [Volume fraction] 26.0 % Low 36.0-48.0 [facility] Comment on above: Performed By: #### L [id number] #### [facility] ([facility] [address] [place] [address] Hemoglobin (Bld) [Mass/Vol] 8.2 g/dL Low 12.0-15.0 [facility] Comment on above: Performed By: #### L [id number] #### [facility] ([facility]) [address] [place] [address] MCH (RBC) [Entitic mass] 30.4 pg Normal 27.0-33.0 [facility] Comment on above: Performed By: #### L [id number] #### [facility] ([facility]) [address] [place] [address] MCV (RBC) [Entitic vol] 96.3 fL Normal 82.0-98.0 [facility] Comment on above: Performed By: #### L [id number] #### [facility] ([facility]) [address] [place] [address] NRBC (PER 100 WBCS) BY AUTOMATED COUNT 2.0 % High 0 [facility] Comment on above: Performed By: #### L [id number] #### [facility] ([facility]) [address] [place] [address] PLATELETS (10*3/UL) IN BLOOD AUTOMATED COUNT 136 10*3/uL Low 150-400 [facility] Comment on above: Performed By: #### L [id number] #### [facility] ([facility]) [address] [place] [address] RBC (Bld) [#/Vol] 2.70 10*6/uL Low 3.80-5.00 [facility] Comment on above: Performed By: #### L [id number] #### [facility] ([facility] [address] [place] [address] WBC (Bld) [#/Vol] 10.20 10*3/uL Normal 4.00-10.60 [facility] Comment on above: Performed By: #### L [id number] #### [facility] (SANDRA) [address] [place] [address] CONSULTon 11-22-2023 CONSULT vocational psychologist Brenda deleon Note Visit Date: 11/22/2023 Patient [...] Wound 11/14/23 Leg Anterior;Left;Upper (Active) Site Assessment Painful;[place];Purple 11/22/23222 Zarina-Wound Assessment Blistered;Painful;[place] ;Purple 11/22/23222 Closure [place] 11/22/23222 Drainage Description Red 11/22/23222 Drainage Amount Moderate 11/22/23222 Dressing Gauze;ABD;Transparent film 11/22/23222 Dressing Changed New 11/22/23222 Dressing Status Clean;Dry;Intact 11/22/23222 Margins Well-defined edges 11/22/23222 Wound 11/16/23 Abdomen Upper (Active) Site Assessment [place] 11/22/23222 Zarina-Wound Assessment Intact 11/22/23222 Drainage Description [...] Assessment Re (more content not included)... Normal [facility] MAGNESIUMon 11-22-2023 Magnesium [Mass/Vol] 2.0 mg/dL Normal 1.9-2.7 [facility] Comment on above: Performed By: #### L [id number] #### [facility] (BEAKER) [address] [place] [address] MANUAL DIFFERENTIALon 2023 ANISOCYTOSIS PRESENCE IN BLOOD BY LIGHT MICROSCOPY Moderate Normal [facility] Comment on above: Performed By: #### L [id number] #### [facility] (BEAKER) [address] [place] [address] BASOPHILS (10*3/UL) IN BLOOD BY CALCULATION 0.00 10*3/uL Normal 0.00-0.20 [facility] Comment on above: Performed By: #### L [id number] #### [facility] ([facility]) [address] [place] [address] BASOPHILS/100 LEUKOCYTES IN BLOOD BY AUTOMATED COUNT 0.0 % Normal 0.0-1.0 [facility] Comment on above: Performed By: #### L [id number] #### [facility] ([facility]) [address] [place] [address] EOSINOPHILS (10*3/UL) IN BLOOD BY CALCULATION 0.00 10*3/uL Normal 0.00-0.50 [facility] Comment on above: Performed By: #### L [id number] #### [facility] ([facility]) [address] [place] [address] EOSINOPHILS/100 LEUKOCYTES IN BLOOD BY AUTOMATED COUNT 0.0 % Normal 0.0-6.0 [facility] Comment on above: Performed By: #### L [id number] #### [facility] ([facility]) [address] [place] [address] LYMPHOCYTES (10*3/UL) IN BLOOD BY CALCULATION 1.55 10*3/uL Normal 1.20-4.00 [facility] Comment on above: Performed By: #### L [id number] #### [facility] ([facility]) [address] [place] [address] LYMPHOCYTES/100 LEUKOCYTES IN BLOOD BY AUTOMATED COUNT 15.2 % Low 20.0-45.0 [facility] Comment on above: Performed By: #### L [id number] #### [facility] ([facility]) [address] [place] [address] MACROCYTES (PRESENCE) IN BLOOD BY LIGHT MICROSCOPY Slight Normal [facility] Comment on above: Performed By: #### L [id number] #### [facility] ([facility]) [address] [place] [address] METAMYELOCYTES (10*3/UL) IN BLOOD BY CALCULATION 0.70 10*3/uL High 0.00 [facility] Comment on above: Performed By: #### L [id number] #### [facility] ([facility]) [address] [place] [address] METAMYELOCYTES/100 LEUKOCYTES IN BLOOD CELLAVISION 6.9 % High 0.0-0.0 [facility] Comment on above: Performed By: #### L [id number] #### [facility] ([facility]) [address] [place] [address] MONOCYTES (10*3/UL) IN BLOOD BY CALCUATION 0.29 10*3/uL Normal 0.10-1.00 [facility] Comment on above: Performed By: #### L [id number] #### [facility] ([facility]) [address] [place] [address] MONOCYTES/100 LEUKOCYTES IN BLOOD BY AUTOMATED COUNT 2.8 % Low 5.0-12.0 [facility] Comment on above: Performed By: #### L [id number] #### [facility] ([facility]) [address] [place] [address] MYELOCYTES (10*3/UL) IN BLOOD BY CALCULATION 0.49 10*3/uL High 0.00 [facility] Comment on above: Performed By: #### L [id number] #### [facility] ([facility]) [address] [place] [address] MYELOCYTES/100 LEUKOCYTES IN BLOOD CELLAVISION 4.8 % High 0.0-0.0 [facility] Comment on above: Performed By: #### L [id number] #### [facility] ([facility]) [address] [place] [address] NEUTROPHILS (10*3/UL) IN BLOOD BY CALCULATION 7.1 10*3/uL Normal 1.6-7.6 [facility] Comment on above: Performed By: #### L [id number] #### [facility] ([facility]) [address] [place] [address] NEUTROPHILS/100 LEUKOCYTES IN BLOOD BY AUTOMATED COUNT 69.6 % Normal 40.0-72.0 [facility] Comment on above: Performed By: #### L [id number] #### [facility] ([facility]) [address] [place] [address] NUCLEATED RED BLOOD CELLS IN BLOOD BY LIGHT MICROSCOPY Present Normal [facility] Comment on above: Performed By: #### L [id number] #### [facility] ([facility]) [address] [place] [address] PLASMA CELLS/100 LEUKOCYTES IN BLOOD 0 % Normal 0 [facility] Comment on above: Performed By: #### L [id number] #### [facility] ([facility]) [address] [place] [address] PLATELETS GIANT PRESENCE IN BLOOD BY LIGHT MICROSCOPY Present Normal [facility] Comment on above: Performed By: #### L [id number] #### [facility] ([facility]) [address] [place] [address] POIKILOCYTOSIS (PRESENCE) IN BLOOD BY LIGHT MICROSCOPY Slight Normal [facility] Comment on above: Performed By: #### L [id number] #### [facility] ([facility]) [address] [place] [address] POLYCHROMASIA IN BLOOD BY LIGHT MICROSCOPY Slight Normal [facility] Comment on above: Performed By: #### L [id number] #### [facility] ([facility]) [address] [place] [address] PROMYELOCYTES (10*3/UL) IN BLOOD BY CALCULATION 0.07 10*3/uL High 0.00 [facility] Comment on above: Performed By: #### L [id number] #### [facility] ([facility]) [address] [place] [address] PROMYELOCYTES/100 LEUKOCYTES IN BLOOD CELLAVISION 0.7 % High 0.0-0.0 [facility] Comment on above: Performed By: #### L [id number] #### [facility] ([facility]) [address] [place] [address] VARIANT LYMPHOCYTES (10*3/UL) IN BLOOD BY CALCULATION 0.00 10*3/uL Normal 0.00 [facility] Comment on above: Performed By: #### L [id number] #### [facility] ([facility]) [address] [place] [address] VARIANT LYMPHOCYTES/100 LEUKOCYTES IN BLOOD CELLAVISION 0.0 % Normal 0.0-0.0 [facility] Comment on above: Performed By: #### L [id number] #### [facility] ([place]ish) [address] [facility] [place] [address] NURSNOTEon 11-22-2023 NURSNOTE Report given to ms rojas from [facility]. Two rings found inside patient's chart are placed back onto patient's fingers. Patient aware of the rings back on her finger. Normal [facility] PHOSPHORUSon 11-22-2023 Magnesium [Mass/Vol] 2.3 mg/dL Low 2.5-5.0 [facility] Comment on above: Performed By: #### L [id number] #### [facility] ([place]ish) [address] [place] [address] PROTIME-INRon 11-22-2023 INR IN PPP BY COAGULATION ASSAY 1.22 High 0.90-1.10 [facility] Comment on above: Result Comment: ACCC [...] #### L [id number] #### [facility] [address] [place] [address] PROTHROMBIN TIME (PT) IN PPP BY COAGULATION ASSAY 15.5 Seconds High 12.3-14.8 [facility] Comment on above: Performed By: #### L [id number] #### [facility] ([facility]) [address] [place] [address] BASIC METABOLIC PANELon 07-0 Anion gap [Moles/Vol] 10 mmol/L Normal 7-20 [facility] Comment on above: Performed By: #### L [id number] #### [facility] ([facility]) [address] [place] [address] Calcium [Mass/Vol] 7.4 mg/dL Low 8.6-10.3 [facility] Comment on above: Performed By: #### L [id number] #### [facility] ([facility]) [address] [place] [address] Chloride [Moles/Vol] 104 mmol/L Normal 98-107 [facility] Comment on above: Performed By: #### L [id number] #### [facility] ([facility]) [address] [place] [address] CO2 [Moles/Vol] 30 mmol/L Normal 21-31 [facility] Comment on above: Performed By: #### L [id number] #### [facility] ([facility]) [address] [place] [address] Creatinine [Mass/Vol] 1.21 mg/dL High 0.60-1.20 [facility] Comment on above: Performed By: #### L [id number] #### [facility] ([facility]) [address] [place] [address] GLOMERULAR FILTRATION RATE ML/MIN/1.73 SQ M.PREDICTED 45.6 mL/min/1.73m*2 Low >60.0 [facility] Comment on above: Result Comment: [facility]???s estimated glomerular filtration rate (eGFR) will [...] individuals. Performed By: #### L [id number] #### [facility] ([facility]) [address] [place] [place] [address] Glucose [Mass/Vol] 101 mg/dL High 70-100 [facility] Comment on above: Performed By: #### L [id number] #### [facility] ([facility]) [address] [place] [address] Potassium [Moles/Vol] 4.1 mmol/L Normal 3.5-5.1 [facility] Comment on above: Performed By: #### L [id number] #### [facility] ([facility]) [address] [place] [address] Sodium [Moles/Vol] 140 mmol/L Normal 136-145 [facility] Comment on above: Performed By: #### L [id number] #### [facility] ([facility]) [address] [place] [address] Urea nitrogen [Mass/Vol] 41 mg/dL High 7-25 [facility] Comment on above: Performed By: #### L [id number] #### [facility] ([facility]) [address] [place] [address] UREA NITROGEN/CREATININE (MASS RATIO) IN SER/PLAS 33.9 Normal [facility] Comment on above: Performed By: #### L [id number] #### [facility] ([facility]) [address] [place] [address] CBC WITH AUTO DIFFERENTIALon 11-21-2023 Erythrocyte distribution width (RBC) [Ratio] 19.1 % High 11.5-15.0 [facility] Comment on above: Performed By: #### L [id number] #### [facility] (BEAKER) [address] [place] [address] ERYTHROCYTE MEAN CORPUSCULAR HEMOGLOBIN CONCENTRATION (G/DL) BY AUTOMATED 32.3 g/dL Normal 32.0-35.0 [facility] Comment on above: Performed By: #### L [id number] #### [facility] [address] [place] [address] Hematocrit (Bld) [Volume fraction] 25.7 % Low 36.0-48.0 [facility] Comment on above: Performed By: #### L [id number] #### [facility] ([facility]) [address] [place] [address] Hemoglobin (Bld) [Mass/Vol] 8.3 g/dL Low 12.0-15.0 [facility] Comment on above: Performed By: #### L [id number] #### [facility] ([facility]) [address] [place] [address] MCH (RBC) [Entitic mass] 29.7 pg Normal 27.0-33.0 [facility] Comment on above: Performed By: #### L [id number] #### [facility] ([facility]) [address] [place] [address] MCV (RBC) [Entitic vol] 92.1 fL Normal 82.0-98.0 [facility] Comment on above: Performed By: #### L [id number] #### [facility] ([facility]) [address] [place] [address] NRBC (PER 100 WBCS) BY AUTOMATED COUNT 8.1 % High 0 [facility] Comment on above: Performed By: #### L [id number] #### [facility] ([facility]) [address] [place] [address] PLATELETS (10*3/UL) IN BLOOD AUTOMATED COUNT 134 10*3/uL Low 150-400 [facility] Comment on above: Performed By: #### L [id number] #### [facility] [address] [place] [address] RBC (Bld) [#/Vol] 2.79 10*6/uL Low 3.80-5.00 [facility] Comment on above: Performed By: #### L [id number] #### [facility] ([facility]) [address] [place] [address] WBC (Bld) [#/Vol] 13.21 10*3/uL High 4.00-10.60 [facility] Comment on above: Performed By: #### L [id number] #### [facility] ([facility]) [address] [place] [address] HEMOGLOBIN AND HEMATOCRIT, B LOODon 11-21-2023 Hematocrit (Bld) [Volume fraction] 25.9 % Low 36.0-48.0 [facility] Comment on above: Performed By: #### L [id number] #### [facility] ([facility]) [address] [place] [address] Hemoglobin (Bld) [Mass/Vol] 8.3 g/dL Low 12.0-15.0 [facility] Comment on above: Performed By: #### L [id number] #### [facility] ([facility]) [address] [place] [address] MAGNESIUMon 11-21-2023 Magnesium [Mass/Vol] 2.1 mg/dL Normal 1.9-2.7 [facility] Comment on above: Performed By: #### L [id number] #### [facility] ([facility]) [address] [place] [address] MANUAL DIFFERENTIALon 2023 BASOPHILS (10*3/UL) IN BLOOD BY CALCULATION 0.00 10*3/uL Normal 0.00-0.20 [facility] Comment on above: Performed By: #### L [id number] #### [facility] ([facility]) [address] [place] [address] BASOPHILS/100 LEUKOCYTES IN BLOOD BY AUTOMATED COUNT 0.0 % Normal 0.0-1.0 [facility] Comment on above: Performed By: #### L [id number] #### [facility] ([facility]) [address] [place] [address] EOSINOPHILS (10*3/UL) IN BLOOD BY CALCULATION 0.09 10*3/uL Normal 0.00-0.50 [facility] Comment on above: Performed By: #### L [id number] #### [facility] ([facility]) [address] [place] [address] EOSINOPHILS/100 LEUKOCYTES IN BLOOD BY AUTOMATED COUNT 0.7 % Normal 0.0-6.0 [facility] Comment on above: Performed By: #### L [id number] #### [facility] ([facility]) [address] [place] [address] LYMPHOCYTES (10*3/UL) IN BLOOD BY CALCULATION 1.27 10*3/uL Normal 1.20-4.00 [facility] Comment on above: Performed By: #### L [id number] #### [facility] ([facility]) [address] [place] [address] LYMPHOCYTES/100 LEUKOCYTES IN BLOOD BY AUTOMATED COUNT 9.6 % Low 20.0-45.0 [facility] Comment on above: Performed By: #### L [id number] #### [facility] ([facility]) [address] [place] [address] METAMYELOCYTES (10*3/UL) IN BLOOD BY CALCULATION 0.45 10*3/uL High 0.00 [facility] Comment on above: Performed By: #### L [id number] #### [facility] ([facility]) [address] [place] [address] METAMYELOCYTES/100 LEUKOCYTES IN BLOOD CELLAVISION 3.4 % High 0.0-0.0 [facility] Comment on above: Performed By: #### L [id number] #### [facility] ([facility]) [address] [place] [address] MONOCYTES (10*3/UL) IN BLOOD BY CALCUATION 0.63 10*3/uL Normal 0.10-1.00 [facility] Comment on above: Performed By: #### L [id number] #### [facility] ([facility]) [address] [place] [address] MONOCYTES/100 LEUKOCYTES IN BLOOD BY AUTOMATED COUNT 4.8 % Low 5.0-12.0 [facility] Comment on above: Performed By: #### L [id number] #### [facility] ([facility]) [address] [place] [address] MYELOCYTES (10*3/UL) IN BLOOD BY CALCULATION 0.81 10*3/uL High 0.00 [facility] Comment on above: Performed By: #### L [id number] #### [facility] ([facility]) [address] [place] [address] MYELOCYTES/100 LEUKOCYTES IN BLOOD CELLAVISION 6.1 % High 0.0-0.0 [facility] Comment on above: Performed By: #### L [id number] #### [facility] ([facility]) [address] [place] [address] NEUTROPHILS (10*3/UL) IN BLOOD BY CALCULATION 9.8 10*3/uL High 1.6-7.6 [facility] Comment on above: Performed By: #### L [id number] #### [facility] ([facility] [facility] [address] [place] [address] NEUTROPHILS/100 LEUKOCYTES IN BLOOD BY AUTOMATED COUNT 74.0 % High 40.0-72.0 [facility] Comment on above: Performed By: #### L [id number] #### [facility] ([facility]) [address] [place] [address] NUCLEATED RED BLOOD CELLS IN BLOOD BY LIGHT MICROSCOPY Present Normal [facility] Comment on above: Performed By: #### L [id number] #### [facility] ([facility]) [address] [place] [address] PLASMA CELLS/100 LEUKOCYTES IN BLOOD 0 % Normal 0 [facility] Comment on above: Performed By: #### L [id number] #### [facility] ([facility]) [address] [place] [address] PROMYELOCYTES (10*3/UL) IN BLOOD BY CALCULATION 0.18 10*3/uL High 0.00 [facility] Comment on above: Performed By: #### L [id number] #### [facility] ([facility]) [address] [place] [address] PROMYELOCYTES/100 LEUKOCYTES IN BLOOD CELLAVISION 1.4 % High 0.0-0.0 [facility] Comment on above: Performed By: #### L [id number] #### [facility] ([facility]) [address] [place] [address] VARIANT LYMPHOCYTES (10*3/UL) IN BLOOD BY CALCULATION 0.00 10*3/uL Normal 0.00 [facility] Comment on above: Performed By: #### L [id number] #### [facility] ([facility]) [address] [place] [address] VARIANT LYMPHOCYTES/100 LEUKOCYTES IN BLOOD CELLAVISION 0.0 % Normal 0.0-0.0 [facility] Comment on above: Performed By: #### L [id number] #### [facility] ([facility]) [address] [place] [address] NURSNOTEon 11-21-2023 NURSNOTE Scrap Drop Operator notified Angel with Trauma and Waldemar with [...] with blood upon moving the patient. Normal [facility] PHOSPHORUSon 11-21-2023 Magnesium [Mass/Vol] 2.7 mg/dL Normal 2.5-5.0 [facility] Comment on above: Performed By: #### L [id number] #### [facility] ([facility]) [address] [place] [address] PROTIME-INRon 11-21-2023 INR IN PPP BY COAGULATION ASSAY 1.18 High 0.90-1.10 [facility] Comment on above: Result Comment: ACCC [...] 1995;108:231S-246S. Performed By: #### L [id number] #### [facility] ([facility]) [address] [place] [address] PROTHROMBIN TIME (PT) IN PPP BY COAGULATION ASSAY 15.0 Seconds High 12.3-14.8 [facility] Comment on above: Performed By: #### L [id number] #### [facility] ([facility]) [address] [place] [address] 30on 11-20-2023 30 Problem: Pain - Adul [...] injury from restraints (Restraint for Interference with Rhinologist) Outcome: Progressing Goal: Free from restraint(s) (Restraint for Interference with Rhinologist) Outcome: Progressing Problem: Terminal Illness Goal: Patient's [...] to the hospice team Outcome: Progressing Goal: Tranquillity with care giving, psychosocial, and end of [...] address these barriers include frequent reassessments. Normal [facility] BASIC METABOLIC PANELon 07-0 Anion gap [Moles/Vol] 11 mmol/L Normal 7-20 [facility] Comment on above: Performed By: #### L [id number] #### [facility] ([facility]) [address] [place] [address] Calcium [Mass/Vol] 6.8 mg/dL Low 8.6-10.3 [facility] Comment on above: Performed By: #### L [id number] #### [facility] ([facility]) [address] [place] [address] Chloride [Moles/Vol] 102 mmol/L Normal 98-107 [facility] Comment on above: Performed By: #### L [id number] #### [facility] ([facility]) [address] [place] [address] CO2 [Moles/Vol] 29 mmol/L Normal 21-31 [facility] Comment on above: Performed By: #### L [id number] #### [facility] ([facility]) [address] [place] [address] Creatinine [Mass/Vol] 1.59 mg/dL High 0.60-1.20 [facility] Comment on above: Performed By: #### L [id number] #### [facility] ([facility]) [address] [place] [address] GLOMERULAR FILTRATION RATE ML/MIN/1.73 SQ M.PREDICTED 32.8 mL/min/1.73m*2 Low >60.0 [facility] Comment on above: Result Comment: [facility]???s estimated glomerular filtration rate (eGFR) will [...] individuals. Performed By: #### L [id number] #### [facility] ([facility]) [address] [facility] [place] [address] Glucose [Mass/Vol] 116 mg/dL High 70-100 [facility] Comment on above: Performed By: #### L [id number] #### [facility] ([facility]) [address] [place] [address] Potassium [Moles/Vol] 4.4 mmol/L Normal 3.5-5.1 [facility] Comment on above: Performed By: #### L [id number] #### [facility] ([facility]) [address] [place] [address] Sodium [Moles/Vol] 138 mmol/L Normal 136-145 [facility] Comment on above: Performed By: #### L [id number] #### [facility] ([facility]) [address] [place] [address] Urea nitrogen [Mass/Vol] 47 mg/dL High 7-25 [facility] Comment on above: Performed By: #### L [id number] #### [facility] ([facility]) [address] [place] [address] UREA NITROGEN/CREATININE (MASS RATIO) IN SER/PLAS 29.6 Normal [facility] Comment on above: Performed By: #### L [id number] #### [facility] [address] [place] [address] CALCIUM, IONIZEDon CALCIUM IONIZED (MMOL/L) IN BLOOD 0.97 mmol/L Low 1.15-1.33 [facility] Comment on above: Performed By: #### L [id number] ####[facility] [id number] [place] [address] [place] CBCon 11-20-2023 Erythrocyte distribution width (RBC) [Ratio] 18.4 % High 11.5-15.0 [facility] Comment on above: Performed By: #### L [id number] #### [facility] ([facility]) [address] [place] [address] ERYTHROCYTE MEAN CORPUSCULAR HEMOGLOBIN CONCENTRATION (G/DL) BY AUTOMATED 32.6 g/dL Normal 32.0-35.0 [facility] Comment on above: Performed By: #### L [id number] #### [facility] ([facility]) [address] [place] [address] Hematocrit (Bld) [Volume fraction] 24.2 % Low 36.0-48.0 [facility] Comment on above: Performed By: #### L [id number] #### [facility] ([facility]) [address] [place] [address] Hemoglobin (Bld) [Mass/Vol] 7.9 g/dL Low 12.0-15.0 [facility] Comment on above: Performed By: #### L [id number] #### [facility] ([facility]) [address] [place] [address] MCH (RBC) [Entitic mass] 29.9 pg Normal 27.0-33.0 [facility] Comment on above: Performed By: #### L [id number] #### [facility] [address] [place] [address] MCV (RBC) [Entitic vol] 91.7 fL Normal 82.0-98.0 [facility] Comment on above: Performed By: #### L [id number] #### [facility] [address] [place] [address] PLATELETS (10*3/UL) IN BLOOD AUTOMATED COUNT 133 10*3/uL Low 150-400 [facility] Comment on above: Performed By: #### L [id number] #### [facility] ([facility]) [address] [place] [address] RBC (Bld) [#/Vol] 2.64 10*6/uL Low 3.80-5.00 [facility] Comment on above: Performed By: #### L [id number] #### [facility]) [address] [place] [address] WBC (Bld) [#/Vol] 13.49 10*3/uL High 4.00-10.60 [facility] Comment on above: Performed By: #### L [id number] #### [facility] ([facility]) [address] [place] [address] CBC WITH AUTO DIFFERENTIALon 11-20-2023 Erythrocyte distribution width (RBC) [Ratio] 22.2 % High 11.5-15.0 [facility] Comment on above: Performed By: #### L [id number] #### [facility] ([facility]) [address] [place] [address] ERYTHROCYTE MEAN CORPUSCULAR HEMOGLOBIN CONCENTRATION (G/DL) BY AUTOMATED 31.1 g/dL Low 32.0-35.0 [facility] Comment on above: Performed By: #### L [id number] #### [facility] ([facility] [address] [place] [address] Hematocrit (Bld) [Volume fraction] 18.0 % Low 36.0-48.0 [facility] Comment on above: Performed By: #### L [id number] #### [facility] [address] [place] [address] Hemoglobin (Bld) [Mass/Vol] 5.6 g/dL Invalid Interpretation Code 12.0-15.0 [facility] Comment on above: Performed By: #### L [id number] #### [facility] ([facility]) [address] [place] [address] MCH (RBC) [Entitic mass] 29.3 pg Normal 27.0-33.0 [facility] Comment on above: Performed By: #### L [id number] #### [facility] ([facility]) [address] [place] [address] MCV (RBC) [Entitic vol] 94.2 fL Normal 82.0-98.0 [facility] Comment on above: Performed By: #### L [id number] #### [facility] ([facility]) [address] [place] [address] NRBC (PER 100 WBCS) BY AUTOMATED COUNT 11.3 % High 0 [facility] Comment on above: Performed By: #### L [id number] #### [facility] ([facility]) [address] [place] [address] PLATELETS (10*3/UL) IN BLOOD AUTOMATED COUNT 139 10*3/uL Low 150-400 [facility] Comment on above: Performed By: #### L [id number] #### [facility] ([facility]) [address] [place] [address] RBC (Bld) [#/Vol] 1.91 10*6/uL Low 3.80-5.00 [facility] Comment on above: Performed By: #### L [id number] #### [facility] ([facility]) [address] [place] [address] WBC (Bld) [#/Vol] 13.93 10*3/uL High 4.00-10.60 [facility] Comment on above: Performed By: #### L [id number] #### [facility] ([facility]) [address] [place] [address] CKon 11-20-2023 CREATINE KINASE (U/L) IN SER/PLAS 239.0 U/L High 30.0-223.0 [facility] Comment on above: Performed By: #### L [id number] #### [facility]) [address] [place] [address] HEMOGLOBIN AND HEMATOCRIT, B LOODon 11-20-2023 Hematocrit (Bld) [Volume fraction] 22.7 % Low 36.0-48.0 [facility] Comment on above: Performed By: #### L [id number] #### [facility] ([facility]) [address] [place] [address] Hemoglobin (Bld) [Mass/Vol] 7.2 g/dL Low 12.0-15.0 [facility] Comment on above: Performed By: #### L [id number] #### [facility] ([facility]) [address] [place] [address] Hematocrit (Bld) [Volume fraction] 18.7 % Low 36.0-48.0 [facility] Comment on above: Performed By: #### L [id number] #### [facility] ([facility]) [address] [place] [address] Hemoglobin (Bld) [Mass/Vol] 5.8 g/dL Invalid Interpretation Code 12.0-15.0 [facility] Comment on above: Performed By: #### L [id number] #### [facility] ([facility]) [address] [place] [address] MAGNESIUMon 11-20-2023 Magnesium [Mass/Vol] 2.1 mg/dL Normal 1.9-2.7 [facility] Comment on above: Performed By: #### L [id number] #### [facility] ([facility]) [address] [place] [address] MANUAL DIFFERENTIALon 2023 ANISOCYTOSIS PRESENCE IN BLOOD BY LIGHT MICROSCOPY Moderate Normal [facility] Comment on above: Performed By: #### L [id number] #### [facility] ([facility]) [address] [place] [address] BASOPHILS (10*3/UL) IN BLOOD BY CALCULATION 0.00 10*3/uL Normal 0.00-0.20 [facility] Comment on above: Performed By: #### L [id number] #### [facility] ([facility]) [address] [place] [address] BASOPHILS/100 LEUKOCYTES IN BLOOD BY AUTOMATED COUNT 0.0 % Normal 0.0-1.0 [facility] Comment on above: Performed By: #### L [id number] #### [facility] [address] [place] [address] EOSINOPHILS (10*3/UL) IN BLOOD BY CALCULATION 0.00 10*3/uL Normal 0.00-0.50 [facility] Comment on above: Performed By: #### L [id number] #### [facility] ([facility]) [address] [place] [address] EOSINOPHILS/100 LEUKOCYTES IN BLOOD BY AUTOMATED COUNT 0.0 % Normal 0.0-6.0 [facility] Comment on above: Performed By: #### L [id number] #### [facility] ([facility]) [address] [place] [address] HYPOCHROMIA (PRESENCE) IN BLOOD BY LIGHT MICROSCOPY Slight Normal [facility] Comment on above: Performed By: #### L [id number] #### [facility] ([facility]) [address] [place] [address] LYMPHOCYTES (10*3/UL) IN BLOOD BY CALCULATION 1.94 10*3/uL Normal 1.20-4.00 [facility] Comment on above: Performed By: #### L [id number] #### [facility] ([facility]) [address] [place] [address] LYMPHOCYTES/100 LEUKOCYTES IN BLOOD BY AUTOMATED COUNT 13.9 % Low 20.0-45.0 [facility] Comment on above: Performed By: #### L [id number] #### [facility] ([facility]) [address] [place] [address] METAMYELOCYTES (10*3/UL) IN BLOOD BY CALCULATION 0.39 10*3/uL High 0.00 [facility] Comment on above: Performed By: #### L [id number] #### [facility] ([facility]) [address] [place] [address] METAMYELOCYTES/100 LEUKOCYTES IN BLOOD CELLAVISION 2.8 % High 0.0-0.0 [facility] Comment on above: Performed By: #### L [id number] #### [facility] ([facility]) [address] [place] [address] MONOCYTES (10*3/UL) IN BLOOD BY CALCUATION 0.38 10*3/uL Normal 0.10-1.00 [facility] Comment on above: Performed By: #### L [id number] #### [facility] ([facility]) [address] [place] [address] MONOCYTES/100 LEUKOCYTES IN BLOOD BY AUTOMATED COUNT 2.7 % Low 5.0-12.0 [facility] Comment on above: Performed By: #### L [id number] #### [facility] ([facility]) [address] [place] [address] MYELOCYTES (10*3/UL) IN BLOOD BY CALCULATION 0.20 10*3/uL High 0.00 [facility] Comment on above: Performed By: #### L [id number] #### [facility] ([facility]) [address] [place] [address] MYELOCYTES/100 LEUKOCYTES IN BLOOD CELLAVISION 1.4 % High 0.0-0.0 [facility] Comment on above: Performed By: #### L [id number] #### [facility] ([facility]) [address] [place] [address] NEUTROPHILS (10*3/UL) IN BLOOD BY CALCULATION 10.8 10*3/uL High 1.6-7.6 [facility] Comment on above: Performed By: #### L [id number] #### [facility] ([facility]) [address] [place] [address] NEUTROPHILS/100 LEUKOCYTES IN BLOOD BY AUTOMATED COUNT 77.8 % High 40.0-72.0 [facility] Comment on above: Performed By: #### L [id number] #### [facility] ([facility]) [address] [place] [address] NUCLEATED RED BLOOD CELLS IN BLOOD BY LIGHT MICROSCOPY Present Normal [facility] Comment on above: Performed By: #### L [id number] #### [facility] ([facility]) [address] [place] [address] PLASMA CELLS/100 LEUKOCYTES IN BLOOD 0 % Normal 0 [facility] Comment on above: Performed By: #### L [id number] #### [facility] ([facility]) [address] [place] [address] PLATELETS GIANT PRESENCE IN BLOOD BY LIGHT MICROSCOPY Present Normal [facility] Comment on above: Performed By: #### L [id number] #### [facility] ([facility]) [address] [place] [address] POIKILOCYTOSIS (PRESENCE) IN BLOOD BY LIGHT MICROSCOPY Slight Normal [facility] Comment on above: Performed By: #### L [id number] #### [facility] ([facility]) [address] [place] [address] POLYCHROMASIA IN BLOOD BY LIGHT MICROSCOPY Slight Normal [facility] Comment on above: Performed By: #### L [id number] #### [facility] ([facility]) [address] [place] [address] PROMYELOCYTES (10*3/UL) IN BLOOD BY CALCULATION 0.20 10*3/uL High 0.00 [facility] Comment on above: Performed By: #### L [id number] #### [facility] ([facility]) [address] [place] [address] PROMYELOCYTES/100 LEUKOCYTES IN BLOOD CELLAVISION 1.4 % High 0.0-0.0 [facility] Comment on above: Performed By: #### L [id number] #### [facility] ([facility]) [address] [place] [address] VARIANT LYMPHOCYTES (10*3/UL) IN BLOOD BY CALCULATION 0.00 10*3/uL Normal 0.00 [facility] Comment on above: Performed By: #### L [id number] #### [facility] ([facility]) [address] [place] [address] VARIANT LYMPHOCYTES/100 LEUKOCYTES IN BLOOD CELLAVISION 0.0 % Normal 0.0-0.0 [facility] Comment on above: Performed By: #### L [id number] #### [facility] ([facility]) [address] [place] [address] NURSNOTEon 11-20-2023 NURSNOTE Scrap Drop Operator and Aid gautam ed patients brief which caused Hip dressing to completely saturate the dressing and leak out with blood. Ortho immediately paged and changed dressing at bedside. Had to hold pressure on incision for several minutes to stop bleeding. Hbg at this time was 5.6. Waiting for further instructions from ortho at this time. Trama also aware of bleeding and hgb. Normal [facility] MARIA ENOTE Patient has critical HGB of 5.8. DPOA was contacted at [phone] and did not pickling tank operator to get consent for blood transfusion. Will transfuse emergently. Normal [facility] PATHOLOGY REVIEWon PATHOLOGY REVIEW Electronically christina d by Viktoriya Dominguez MD on 11/20/23 at 12:12 PM. [facility] Comment on above: Performed By: #### L [id number] #### [facility] ([facility]) [address] [place] [address] PHOSPHORUSon 11-20-2023 Magnesium [Mass/Vol] 3.2 mg/dL Normal 2.5-5.0 [facility] Comment on above: Performed By: #### L [id number] #### [facility] ([facility]) [address] [place] [address] PROTIME-INRon 11-20-2023 INR IN PPP BY COAGULATION ASSAY 3.65 High 0.90-1.10 [facility] Comment on above: Result Comment: ACCC [...] 1995;108:231S-246S. Performed By: #### L [id number] #### [facility] ([facility]) [address] [place] [address] PROTHROMBIN TIME (PT) IN PPP BY COAGULATION ASSAY 36.6 Seconds High 12.3-14.8 [facility] Comment on above: Performed By: #### L [id number] #### [facility] ([facility]) [address] [place] [address] INR IN PPP BY COAGULATION ASSAY 4.24 High 0.90-1.10 [facility] Comment on above: Result Comment: ACCC [...] 1995;108:231S-246S. Performed By: #### L [id number] #### [facility] ([facility]) [address] [place] [address] PROTHROMBIN TIME (PT) IN PPP BY COAGULATION ASSAY 41.1 Seconds High 12.3-14.8 [facility] Comment on above: Performed By: #### L [id number] #### [facility] ([facility]) [address] [place] [address] 30on 07-07-2024 30 The patient is Moderately Stable - Low risk of patient condition declining or worsening The patient's goals for the shift include SANDRA The clinical goals for the shift include VSS COMFORT Over the shift, the patient did not make progress toward the following goals. Barriers to progression include pain. Recommendations to address these barriers include pain control. Normal [facility] BASIC METABOLIC PANELon 07-0 Anion gap [Moles/Vol] 14 mmol/L Normal 7-20 [facility] Comment on above: Performed By: #### L [id number] #### [facility] ([facility]) [address] [place] [address] Calcium [Mass/Vol] 6.9 mg/dL Low 8.6-10.3 [facility] Comment on above: Performed By: #### L [id number] #### [facility] ([facility]) [address] [place] [address] Chloride [Moles/Vol] 99 mmol/L Normal 98-107 [facility] Comment on above: Performed By: #### L [id number] #### [facility] ([facility]) [address] [place] [address] CO2 [Moles/Vol] 28 mmol/L Normal 21-31 [facility] Comment on above: Performed By: #### L [id number] #### [facility] ([facility]) [address] [place] [address] Creatinine [Mass/Vol] 2.03 mg/dL High 0.60-1.20 [facility] Comment on above: Performed By: #### L [id number] #### [facility] [address] [place] [address] GLOMERULAR FILTRATION RATE ML/MIN/1.73 SQ M.PREDICTED 24.5 mL/min/1.73m*2 Low >60.0 [facility] Comment on above: Result Comment: [facility]???s estimated glomerular filtration rate (eGFR) will [...] individuals. Performed By: #### L [id number] #### [facility] ([facility]) [address] [facility] [place] [address] Glucose [Mass/Vol] 107 mg/dL High 70-100 [facility] Comment on above: Performed By: #### L [id number] #### [facility] ([facility]) [address] [place] [address] Potassium [Moles/Vol] 3.0 mmol/L Low 3.5-5.1 [facility] Comment on above: Performed By: #### L [id number] #### [facility] ([facility]) [address] [place] [address] Sodium [Moles/Vol] 138 mmol/L Normal 136-145 [facility] Comment on above: Performed By: #### L [id number] #### [facility] [address] [place] [place] [address] Urea nitrogen [Mass/Vol] 49 mg/dL High 7-25 [facility] Comment on above: Performed By: #### L [id number] #### [facility] ([facility]) [address] [place] [place] [address] UREA NITROGEN/CREATININE (MASS RATIO) IN SER/PLAS 24.1 Normal [facility] Comment on above: Performed By: #### L [id number] #### [facility] [address] [place] [address] CALCIUM, IONIZEDon 4 CALCIUM IONIZED (MMOL/L) IN BLOOD 0.91 mmol/L Low 1.15-1.33 [facility] [facility] Comment [facility]: Performed By: #### L [id number] #### [facility] RESPIRATORY THERAPY [address] [place] [address] [place] CBC WITH AUTO DIFFERENTIALon 11-19-2023 Erythrocyte distribution width (RBC) [Ratio] 22.3 % High 11.5-15.0 [facility] Comment on above: Performed By: #### L [id number] #### [facility] (BEAKER) [address] [place] [address] ERYTHROCYTE MEAN CORPUSCULAR HEMOGLOBIN CONCENTRATION (G/DL) BY AUTOMATED 31.6 g/dL Low 32.0-35.0 [facility] Comment on above: Performed By: #### L [id number] #### [facility] ([facility]) [address] [place] [address] Hematocrit (Bld) [Volume fraction] 19.6 % Low 36.0-48.0 [facility] Comment on above: Performed By: #### L [id number] #### [facility] ([facility]) [address] [place] [address] Hemoglobin (Bld) [Mass/Vol] 6.2 g/dL Low 12.0-15.0 [facility] Comment on above: Performed By: #### L [id number] #### [facility] ([facility]) [address] [place] [address] MCH (RBC) [Entitic mass] 29.2 pg Normal 27.0-33.0 [facility] Comment on above: Performed By: #### L [id number] #### [facility] [address] [place] [address] MCV (RBC) [Entitic vol] 92.5 fL Normal 82.0-98.0 [facility] Comment on above: Performed By: #### L [id number] #### [facility] ([facility] [address] [place] [address] NRBC (PER 100 WBCS) BY AUTOMATED COUNT 9.5 % High 0 [facility] Comment on above: Performed By: #### L [id number] #### [facility] (BEAKER) [address] [place] [address] PLATELETS (10*3/UL) IN BLOOD AUTOMATED COUNT 123 10*3/uL Low 150-400 [facility] Comment on above: Performed By: #### L [id number] #### [facility] ([facility]) [address] [place] [address] RBC (Bld) [#/Vol] 2.12 10*6/uL Low 3.80-5.00 [facility] Comment on above: Performed By: #### L [id number] #### [facility] ([facility]) [address] [place] [address] WBC (Bld) [#/Vol] 18.42 10*3/uL High 4.00-10.60 [facility] Comment on above: Performed By: #### L [id number] #### [facility] ([facility]) [address] [place] [address] HEPATIC FUNCTION PANELon Albumin [Mass/Vol] 2.1 g/dL Low 3.5-5.7 [facility] Comment on above: Performed By: #### L [id number] #### [facility] ([facility]) [address] [place] [address] ALP [Catalytic activity/Vol] 97 U/L Normal 34-104 [facility] Comment on above: Performed By: #### L [id number] #### [facility] ([facility]) [address] [place] [address] ALT [Catalytic activity/Vol] 29 U/L Normal 7-52 [facility] Comment on above: Performed By: #### L [id number] #### [facility] ([facility]) [address] [place] [address] AST [Catalytic activity/Vol] 89 U/L High 13-39 [facility] Comment on above: Performed By: #### L [id number] #### [facility] ([facility]) [address] [place] [address] Bilirubin [Mass/Vol] 0.9 mg/dL Normal 0.3-1.0 [facility] Comment on above: Performed By: #### L [id number] #### [facility] ([facility]) [address] [place] [address] Magnesium [Mass/Vol] 0.4 mg/dL High 0-0.2 [facility] Comment on above: Performed By: #### L [id number] #### [facility] ([facility]) [address] [place] [address] Protein [Mass/Vol] 4.0 g/dL Low 6.0-8.3 [facility] Comment on above: Performed By: #### L [id number] #### [facility] ([facility]) [address] [place] [address] LACTIC ACID WITH 4 HOUR REFL EXon 11-19-2023 LACTATE (MMOL/L) IN SER/PLAS 0.9 mmol/L Normal 0.5-2.2 [facility] Comment on above: Performed By: #### L [id number] #### [facility] ([facility]) [address] [place] [address] MAGNESIUMon 11-19-2023 Magnesium [Mass/Vol] 1.9 mg/dL Normal 1.9-2.7 [facility] Comment on above: Performed By: #### L [id number] #### [facility] ([facility]) [address] [place] [address] MANUAL DIFFERENTIALon 2023 ANISOCYTOSIS PRESENCE IN BLOOD BY LIGHT MICROSCOPY Moderate Normal [facility] Comment on above: Performed By: #### L [id number] #### [facility] ([facility]) [address] [place] [address] BASOPHILS (10*3/UL) IN BLOOD BY CALCULATION 0.00 10*3/uL Normal 0.00-0.20 [facility] Comment on above: Performed By: #### L [id number] #### [facility] ([facility]) [address] [place] [address] BASOPHILS/100 LEUKOCYTES IN BLOOD BY AUTOMATED COUNT 0.0 % Normal 0.0-1.0 [facility] Comment on above: Performed By: #### L [id number] #### [facility] ([facility]) [address] [place] [address] EOSINOPHILS (10*3/UL) IN BLOOD BY CALCULATION 0.00 10*3/uL Normal 0.00-0.50 [facility] Comment on above: Performed By: #### L [id number] #### [facility] ([facility]) [address] [place] [address] EOSINOPHILS/100 LEUKOCYTES IN BLOOD BY AUTOMATED COUNT 0.0 % Normal 0.0-6.0 [facility] Comment on above: Performed By: #### L [id number] #### [facility] ([facility]) [address] [place] [address] HYPOCHROMIA (PRESENCE) IN BLOOD BY LIGHT MICROSCOPY Moderate Normal [facility] Comment on above: Performed By: #### L [id number] #### [facility] ([facility]) [address] [place] [address] LYMPHOCYTES (10*3/UL) IN BLOOD BY CALCULATION 1.23 10*3/uL Normal 1.20-4.00 [facility] Comment on above: Performed By: #### L [id number] #### [facility] ([facility]) [address] [place] [address] LYMPHOCYTES/100 LEUKOCYTES IN BLOOD BY AUTOMATED COUNT 6.7 % Low 20.0-45.0 [facility] Comment on above: Performed By: #### L [id number] #### [facility] ([facility]) [address] [place] [address] MONOCYTES (10*3/UL) IN BLOOD BY CALCUATION 0.87 10*3/uL Normal 0.10-1.00 [facility] Comment on above: Performed By: #### L [id number] #### [facility] ([facility]) [address] [place] [address] MONOCYTES/100 LEUKOCYTES IN BLOOD BY AUTOMATED COUNT 4.7 % Low 5.0-12.0 [facility] Comment on above: Performed By: #### L [id number] #### [facility] ([facility]) [address] [place] [address] NEUTROPHILS (10*3/UL) IN BLOOD BY CALCULATION 15.8 10*3/uL High 1.6-7.6 [facility] Comment on above: Performed By: #### L [id number] #### [facility] ([facility]) [address] [place] [address] NEUTROPHILS/100 LEUKOCYTES IN BLOOD BY AUTOMATED COUNT 85.9 % High 40.0-72.0 [facility] Comment on above: Performed By: #### L [id number] #### [facility] ([facility]) [address] [place] [address] NUCLEATED RED BLOOD CELLS IN BLOOD BY LIGHT MICROSCOPY Present Normal [facility] Comment on above: Performed By: #### L [id number] #### [facility] ([facility]) [address] [place] [address] PLASMA CELLS/100 LEUKOCYTES IN BLOOD 0 % Normal 0 [facility] Comment on above: Performed By: #### L [id number] #### [facility] ([facility]) [address] [place] [address] PLATELETS GIANT PRESENCE IN BLOOD BY LIGHT MICROSCOPY Present Normal [facility] Comment on above: Performed By: #### L [id number] #### [facility] ([facility]) [address] [place] [address] POIKILOCYTOSIS (PRESENCE) IN BLOOD BY LIGHT MICROSCOPY Slight Normal [facility] Comment on above: Performed By: #### L [id number] #### [facility] ([facility]) [address] [place] [address] POLYCHROMASIA IN BLOOD BY LIGHT MICROSCOPY Slight Normal [facility] Comment on above: Performed By: #### L [id number] #### [facility] ([facility]) [address] [place] [address] PROMYELOCYTES (10*3/UL) IN BLOOD BY CALCULATION 0.50 10*3/uL High 0.00 [facility] Comment on above: Performed By: #### L [id number] #### [facility] ([facility]) [address] [place] [address] PROMYELOCYTES/100 LEUKOCYTES IN BLOOD CELLAVISION 2.7 % High 0.0-0.0 [facility] Comment on above: Performed By: #### L [id number] #### [facility] ([facility]) [address] [place] [address] VARIANT LYMPHOCYTES (10*3/UL) IN BLOOD BY CALCULATION 0.00 10*3/uL Normal 0.00 [facility] Comment on above: Performed By: #### L [id number] #### [facility] ([facility]) [address] [place] [address] VARIANT LYMPHOCYTES/100 LEUKOCYTES IN BLOOD CELLAVISION 0.0 % Normal 0.0-0.0 [facility] Comment on above: Performed By: #### L [id number] #### [facility] ([facility]) [address] [place] [address] NURSNOTEon 11-19-2023 NURSNOTE Scrap Drop Operator notified Galdino y from trauma team that the patient has significant edema in RUE and was not notified that there was any previous infiltration, will be getting second IV for blood administration, no concern about swelling from trauma team at this time. Normal [facility] PHOSPHORUSon 11-19-2023 Magnesium [Mass/Vol] 4.1 mg/dL Normal 2.5-5.0 [facility] Comment on above: Performed By: #### L [id number] #### [facility] ([facility]) [address] [place] [address] POTASSIUMon 11-19-2023 Potassium [Moles/Vol] 3.7 mmol/L Normal 3.5-5.1 [facility] Comment on above: Performed By: #### L [id number] #### [facility] ([facility]) [address] [place] [address] PROTIME-INRon 11-19-2023 INR IN PPP BY COAGULATION ASSAY 4.04 High 0.90-1.10 [facility] Comment on above: Result Comment: ACCC [...] CHEST 1995;[id number]. Performed By: #### L [id number] ####[facility] (BETerviu)[address] [facility] [place] [address] PROTHROMBIN TIME (PT) IN PPP BY COAGULATION ASSAY 39.6 Seconds High 12.3-14.8 [facility] Comment on above: Performed By: #### L [id number] ####[facility] (BEAKER)[address] [place] [address] TYPE AND SCREENon 11-19-2023 AB SCREEN Negative Normal [facility] Comment on above: Performed By: #### L [id number] #### [facility] (BEAKER) [address] [place] [address] ABO group Nom (Bld) O Normal [facility] Comment on above: Performed By: #### L [id number] #### [facility] (AKER) [address] [place] [address] RH TYPE IN BLOOD Positive Normal [facility] Comment on above: Performed By: #### L [id number] #### [facility] (BEJOSEPH) [address] [place] [address] 30on 11-18-2023 30 Problem: Pain - Adul [...] and behaviors that affect risk of falls [place] fall precautions as indicated by assessment Educate [...] discharge resources and transportation as appropriate Normal [facility] 30on 11-17-2023 30 The patient is Moderately Stable - Low risk of patient condition declining or worsening The patient's goals for the shift include comfort The clinical goals for the shift include comfort Over the shift, the patient did not make progress toward the following goals. Barriers to progression include poor PO intake. Recommendations to address these barriers include meal encouragement. Normal [facility] 30 Daily Case Managemen t Update Multidisciplinary rounds have been completed. Barriers to Discharge: POD#3 ORIF L femur. TTWB LLE. Plan is to discharge back to [facility]. No precert needed. Diet: Dietary Orders (From [...] muscular skeletal surgical procedure 11/15/23 0156 Normal [facility] 30 Problem: Pain - Adul t [...] injury from restraints (Restraint for Interference with Rhinologist) Outcome: Progressing Goal: Free from restraint(s) (Restraint for Interference with Rhinologist) Outcome: Progressing Problem: Terminal Illness Goal: Patient's [...] to the hospice team Outcome: Progressing Goal: Tranquillity with care giving, psychosocial, and end of [...] barriers include frequent reassessments, reorientation, turns. Normal [facility] CONSULTon 11-17-2023 CONSULT [facility] [...] on 11/13/2023 after a fall [facility] [place] [facility]. She was found to have a left mid-shaft femur fracture. She underwent ORIF here. She has a history of dementia. Past Medical History: Diagnosis Date Anemia Atrial fibrillation ([facility]) Calcaneal spur of both feet Cataracts, bilateral CHF (congestive heart failure) ([facility]) Chronic pain Cognitive communication deficit Delusional disorder ([facility]) Dementia ([facility]) Depression Fall 11/13/2023 Femur fracture, left ([facility]) 11/13/2023 Generalized weakness GERD (gastroesophageal reflux disease) History of COVID-19 Hypertension Hypothyroid Insomnia OA (osteoarthritis) Obesity PVD (peripheral vascular disease) ([facility]) Renal failure Sick sinus syndrome ([facility]) Tinea unguium Past Surgical History: Procedure [...] other questio (more content not included)... Normal [facility] NURSNOTEon 11-17-2023 NURSNOTE Patient states frustration with having to do assessment, and meds stating she doesn't want to be told what to do . Patient also refusing oxygen at this time. Normal [facility] 30on 11-15-2023 30 Problem: Pain - [...] injury from restraints (Restraint for Interference with Rhinologist) Outcome: Progressing Goal: Free from restraint(s) (Restraint for Interference with Rhinologist) Outcome: Progressing Normal [facility] 30 Problem: Pain - Adul t [...] injury from restraints (Restraint for Interference with Rhinologist) Outcome: Progressing Goal: Free from restraint(s) (Restraint for Interference with Rhinologist) Outcome: Progressing Normal [facility] ARTERIAL BLOOD GAS WITH CO-O XIMETRYon 11-15-2023 Base excess Calc (Bld) [Moles/Vol] -16.83636 mmol/L Low -2.0-3.0 [facility] Comment on above: Performed By: #### L [id number] #### [facility] (BEAKER) [address] [place] [address] CARBOXYHEMOGLOBIN/HEM OGLOBIN TOTAL % IN BLOOD 1.3 % Normal 0.0-3.0 [facility] Comment on above: Performed By: #### L [id number] #### [facility] (BEAKER) [address] [place] [address] CO2 (Bld) [Partial pressure] 32 mm[Hg] Low 35-48 [facility] Comment on above: Performed By: #### L [id number] #### [facility] (BEAKER) [address] [place] [address] DEOXYGENATED HEMOGLOBIN IN BLOOD 4.6 % Normal 1-5 [facility] Comment on above: Performed By: #### L [id number] #### [facility] (BEAKER) [address] [place] [address] HCO3 (Bld) [Moles/Vol] 11.1 mmol/L Low 21.0-28.0 [facility] Comment on above: Performed By: #### L [id number] #### [facility] (BEAKER) [address] [place] [address] Hemoglobin (Bld) [Mass/Vol] 8.9 g/dL Low 11.7-17.4 [facility] Comment on above: Performed By: #### L [id number] #### [facility] ([facility]) [address] [place] [address] METHEMOGLOBIN/100 IN BLOOD 0.3 % Normal 0.0-1.5 [facility] Comment on above: Performed By: #### L [id number] #### [facility] ([facility]) [address] [place] [address] Oxygen (Bld) [Partial pressure] 75 mm[Hg] Low 83-100 [facility] Comment on above: Performed By: #### L [id number] #### [facility] ([facility]) [address] [place] [address] OXYGEN SATURATION (%) IN ARTERIAL BLOOD 95.3 % Normal 94.0-98.0 [facility] Comment on above: Performed By: #### L [id number] #### [facility] ([facility]) [address] [place] [address] OXYGENATED HEMOGLOBIN IN BLOOD 93.8 % Normal 90.0-95.0 [facility] Comment on above: Performed By: #### L [id number] #### [facility] ([facility]) [address] [place] [address] pH (Bld) 7.15 [pH] Invalid Interpretation Code 7.35-7.45 [facility] Comment on above: Performed By: #### L [id number] #### [facility] [address] [place] [address] SOURCE OF OXYGEN Room Air Normal [facility] Comment on above: Performed By: #### L [id number] #### [facility] (BEAKER) [address] [place] [address] Base excess Calc (Bld) [Moles/Vol] -18.23249 mmol/L Low -2.0-3.0 [facility] Comment on above: Performed By: #### L [id number] ####[facility] RESPIR[facility] [id number] [place] [address] [place] CARBOXYHEMOGLOBIN/HEM OGLOBIN TOTAL % IN BLOOD 1.7 % Normal 0.0-3.0 [facility] Comment on above: Performed By: #### L [id number] ####[facility] [id number] [place] [address] [facility] CO2 (Bld) [Partial pressure] 27 mm[Hg] Low 35-48 [facility] Comment on above: Performed By: #### L [id number] ####[facility] RESPIR[facility] [id number] [place] [address] [facility] DEOXYGENATED HEMOGLOBIN IN BLOOD 1.6 % Normal 1-5 [facility] Comment on above: Performed By: #### L [id number] ####[facility] RESPIRAT[facility] [id number] [place] [address] [facility] HCO3 (Bld) [Moles/Vol] 9.0 mmol/L Low 21.0-28.0 [facility] Comment on above: Performed By: #### L [id number] ####[facility] RESPIRAT[facility] [id number] [place] [address] [facility] Hemoglobin (Bld) [Mass/Vol] 9.6 g/dL Low 11.7-17.4 [facility] Comment on above: Performed By: #### L [id number] ####[facility] RESPIRATORY [id number] [place] [address] [facility] METHEMOGLOBIN/100 IN BLOOD 0.8 % Normal 0.0-1.5 [facility] Comment on above: Performed By: #### L [id number] ####[facility] RESPIRATORY [id number] [place] [address] [place] Oxygen (Bld) [Partial pressure] 98 mm[Hg] Normal 83-100 [facility] Comment on above: Performed By: #### L [id number] ####[facility] RESPIRATORY [id number] [place] [address] [place] OXYGEN SATURATION (%) IN ARTERIAL BLOOD 98.4 % High 94.0-98.0 [facility] Comment on above: Performed By: #### L [id number] ####[facility] RESPIRATORY [id number] [place] [address] [place] OXYGENATED HEMOGLOBIN IN BLOOD 95.9 % High 90.0-95.0 [facility] Comment on above: Performed By: #### L [id number] ####[facility] RESPIRATORY [id number] [place] [address] [place] pH (Bld) 7.13 [pH] Invalid Interpretation Code 7.35-7.45 [facility] Comment on above: Performed By: #### L [id number] ####[facility] RESPIRATORY [id number] [place] [address] [place] SOURCE OF OXYGEN Room Air Normal [facility] Comment on above: Performed By: #### L [id number] ####[facility] RESPIRAT[facility] [id number] [place] [address] [place] Base excess Calc (Bld) [Moles/Vol] -19.69916 mmol/L Low -2.0-3.0 [facility] Comment on above: Performed By: #### L [id number] #### [facility] (BEAKER) [address] [place] [address] CARBOXYHEMOGLOBIN/HEM OGLOBIN TOTAL % IN BLOOD 1.9 % Normal 0.0-3.0 [facility] Comment on above: Performed By: #### L [id number] #### [facility] (BEAKER) [address] [place] [address] CO2 (Bld) [Partial pressure] 30 mm[Hg] Low 35-48 [facility] Comment on above: Performed By: #### L [id number] #### [facility] (BEAKER) [address] [place] [address] DEOXYGENATED HEMOGLOBIN IN BLOOD 2.6 % Normal 1-5 [facility] Comment on above: Performed By: #### L [id number] #### [facility] (BEAKER) [address] [place] [address] HCO3 (Bld) [Moles/Vol] 8.9 mmol/L Low 21.0-28.0 [facility] Comment on above: Performed By: #### L [id number] #### [facility] (BEAKER) [address] [place] [address] Hemoglobin (Bld) [Mass/Vol] 9.8 g/dL Low 11.7-17.4 [facility] Comment on above: Performed By: #### L [id number] #### [facility] ([facility]) [address] [place] [address] METHEMOGLOBIN/100 IN BLOOD 0.7 % Normal 0.0-1.5 [facility] Comment on above: Performed By: #### L [id number] #### [facility] ([facility]) [address] [place] [address] Oxygen (Bld) [Partial pressure] 86 mm[Hg] Normal 83-100 [facility] Comment on above: Performed By: #### L [id number] #### [facility] ([facility]) [address] [place] [address] OXYGEN SATURATION (%) IN ARTERIAL BLOOD 97.3 % Normal 94.0-98.0 [facility] Comment on above: Performed By: #### L [id number] #### [facility] ([facility]) [address] [place] [address] OXYGENATED HEMOGLOBIN IN BLOOD 94.8 % Normal 90.0-95.0 [facility] Comment on above: Performed By: #### L [id number] #### [facility] [address] [place] [address] pH (Bld) 7.08 [pH] Invalid Interpretation Code 7.35-7.45 [facility] Comment on above: Performed By: #### L [id number] #### [facility] (BEAKER) [address] [place] [address] SOURCE OF OXYGEN Room Air Normal [facility] Comment on above: Performed By: #### L [id number] #### [facility] (BEAKER) [address] [place] [address] Base excess Calc (Bld) [Moles/Vol] -19.19175 mmol/L Low -2.0-3.0 [facility] Comment on above: Performed By: #### L [id number] #### [facility] (BEAKER) [address] [place] [address] CARBOXYHEMOGLOBIN/HEM OGLOBIN TOTAL % IN BLOOD 1.7 % Normal 0.0-3.0 [facility] Comment on above: Performed By: #### L [id number] #### [facility] [facility] ([facility]) [address] [place] [address] CO2 (Bld) [Partial pressure] 27 mm[Hg] Low 35-48 [facility] Comment on above: Performed By: #### L [id number] #### [facility] ([facility]) [address] [place] [address] DEOXYGENATED HEMOGLOBIN IN BLOOD 0.1 % Low 1-5 [facility] Comment on above: Performed By: #### L [id number] #### [facility] ([facility]) [address] [place] [address] HCO3 (Bld) [Moles/Vol] 8.6 mmol/L Low 21.0-28.0 [facility] Comment on above: Performed By: #### L [id number] #### [facility] ([facility]) [address] [place] [address] Hemoglobin (Bld) [Mass/Vol] 8.0 g/dL Low 11.7-17.4 [facility] Comment on above: Performed By: #### L [id number] #### [facility] ([facility]) [address] [place] [address] METHEMOGLOBIN/100 IN BLOOD 0.2 % Normal 0.0-1.5 [facility] Comment on above: Performed By: #### L [id number] #### [facility] ([facility]) [address] [place] [address] Oxygen (Bld) [Partial pressure] 266 mm[Hg] High 83-100 [facility] Comment on above: Performed By: #### L [id number] #### [facility] [address] [place] [address] OXYGEN SATURATION (%) IN ARTERIAL BLOOD 99.9 % High 94.0-98.0 [facility] Comment on above: Performed By: #### L [id number] #### [facility] ([facility]) [address] [address] OXYGENATED HEMOGLOBIN IN BLOOD 98.0 % High 90.0-95.0 [facility] Comment on above: Performed By: #### L [id number] #### [facility] ([facility]) [address] [facility] [place] [address] pH (Bld) 7.11 [pH] Invalid Interpretation Code 7.35-7.45 [facility] Comment on above: Performed By: #### L [id number] #### [facility] ([facility]) [address] [facility] [place] [address] SOURCE OF OXYGEN Non-rebreather mask Normal [facility] Comment on above: Performed By: #### L [id number] #### [facility] ([facility]) [address] [facility] [place] [address] ARTERIAL BLOOD GAS WITH IONI ZED CALCIUMon 11-15-2023 Base excess Calc (Bld) [Moles/Vol] -5.2000 mmol/L Low -2.0-3.0 [facility] Comment on above: Performed By: #### L [id number] #### [facility] ([facility]) [address] [facility] [place] [address] CALCIUM IONIZED (MMOL/L) IN BLOOD 1.07 mmol/L Low 1.15-1.33 [facility] Comment on above: Performed By: #### L [id number] #### [facility] ([facility]) [address] [address] CO2 (Bld) [Partial pressure] 32 mm[Hg] Low 35-48 [facility] Comment on above: Performed By: #### L [id number] #### [facility] ([facility]) [address] [place] [address] HCO3 (Bld) [Moles/Vol] 18.9 mmol/L Low 21.0-28.0 [facility] Comment on above: Performed By: #### L [id number] #### [facility] ([facility]) [address] [place] [address] Oxygen (Bld) [Partial pressure] 78 mm[Hg] Low 83-100 [facility] Comment on above: Performed By: #### L [id number] #### [facility] ([facility]) [address] [place] [address] OXYGEN SATURATION (%) IN ARTERIAL BLOOD 98.2 % High 94.0-98.0 [facility] Comment on above: Performed By: #### L [id number] #### [facility] ([facility]) [address] [place] [address] pH (Bld) 7.38 [pH] Normal 7.35-7.45 [facility] Comment on above: Performed By: #### L [id number] #### [facility] ([facility]) [address] [place] [address] SOURCE OF OXYGEN Room Air Normal [facility] Comment on above: Performed By: #### L [id number] #### [facility] ([facility]) [address] [place] [address] B-TYPE NATRIURETIC PEPTIDEon 11-15-2023 Natriuretic peptide B (Bld) [Mass/Vol] 165 pg/mL High 0-100 [facility] Comment on above: Performed By: #### L [id number] ####[facility] ([facility])[address] [place] [address] Natriuretic peptide B (Bld) [Mass/Vol] 175 pg/mL High 0-100 [facility] Comment on above: Performed By: #### L [id number] #### [facility] ([facility]) [address] [place] [address] BASIC METABOLIC PANELon 07-0 Anion gap [Moles/Vol] 25 mmol/L High 7-20 [facility] Comment on above: Performed By: #### L [id number] #### [facility] ([facility]) [address] [place] [address] Calcium [Mass/Vol] 7.4 mg/dL Low 8.6-10.3 [facility] Comment on above: Performed By: #### L [id number] #### [facility] ([facility]) [address] [place] [address] Chloride [Moles/Vol] 108 mmol/L High 98-107 [facility] Comment on above: Performed By: #### L [id number] #### [facility] ([facility]) [address] [place] [address] CO2 [Moles/Vol] 22 mmol/L Normal 21-31 [facility] Comment on above: Performed By: #### L [id number] #### [facility] ([facility]) [address] [place] [address] Creatinine [Mass/Vol] 1.33 mg/dL High 0.60-1.20 [facility] Comment on above: Performed By: #### L [id number] #### [facility] ([facility]) [address] [place] [address] GLOMERULAR FILTRATION RATE ML/MIN/1.73 SQ M.PREDICTED 40.7 mL/min/1.73m*2 Low >60.0 [facility] Comment on above: Result Comment: [facility]???s estimated glomerular filtration rate (eGFR) will [...] individuals. Performed By: #### L [id number] #### [facility] ([facility]) [address] [place] [address] Glucose [Mass/Vol] 140 mg/dL High 70-100 [facility] Comment on above: Performed By: #### L [id number] #### [facility] ([facility]) [address] [place] [address] Potassium [Moles/Vol] 3.4 mmol/L Low 3.5-5.1 [facility] Comment on above: Performed By: #### L [id number] #### [facility] ([facility]) [address] [place] [address] Sodium [Moles/Vol] 152 mmol/L High 136-145 [facility] Comment on above: Performed By: #### L [id number] #### [facility] ([facility]) [address] [place] [address] Urea nitrogen [Mass/Vol] 30 mg/dL High 7-25 [facility] Comment on above: Performed By: #### L [id number] #### [facility] ([facility]) [address] [place] [address] UREA NITROGEN/CREATININE (MASS RATIO) IN SER/PLAS 22.6 Normal [facility] Comment on above: Performed By: #### L [id number] #### [facility] ([facility]) [address] [place] [address] Anion gap [Moles/Vol] 28 mmol/L High 7-20 [facility] Comment on above: Performed By: #### L [id number] #### [facility] ([facility]) [address] [place] [address] Calcium [Mass/Vol] 6.7 mg/dL Low 8.6-10.3 [facility] Comment on above: Performed By: #### L [id number] #### [facility] ([facility]) [address] [place] [address] Chloride [Moles/Vol] 112 mmol/L High 98-107 [facility] Comment on above: Performed By: #### L [id number] #### [facility] ([facility]) [address] [place] [address] CO2 [Moles/Vol] 10 mmol/L Invalid Interpretation Code [facility] Comment on above: Performed By: #### L [id number] #### [facility] ([facility]) [address] [place] [address] Creatinine [Mass/Vol] 1.18 mg/dL Normal 0.60-1.20 [facility] Comment on above: Performed By: #### L [id number] #### [facility] ([facility]) [address] [place] [address] GLOMERULAR FILTRATION RATE ML/MIN/1.73 SQ M.PREDICTED 47.0 mL/min/1.73m*2 Low >60.0 [facility] Comment on above: Result Comment: [facility]???s estimated glomerular filtration rate (eGFR) will [...] individuals. Performed By: #### L [id number] #### [facility] ([facility]) [address] [place] [address] Glucose [Mass/Vol] 239 mg/dL High 70-100 [facility] Comment on above: Performed By: #### L [id number] #### [facility] ([facility]) [address] [place] [address] Potassium [Moles/Vol] 3.7 mmol/L Normal 3.5-5.1 [facility] Comment on above: Performed By: #### L [id number] #### [facility] ([facility]) [address] [place] [address] Sodium [Moles/Vol] 146 mmol/L High 136-145 [facility] Comment on above: Performed By: #### L [id number] #### [facility] ([facility]) [address] [place] [address] Urea nitrogen [Mass/Vol] 26 mg/dL High 7-25 [facility] Comment on above: Performed By: #### L [id number] #### [facility] ([facility]) [address] [place] [address] UREA NITROGEN/CREATININE (MASS RATIO) IN SER/PLAS 22.0 [facility] Comment on above: Performed By: #### L [id number] #### [facility] ([facility]) [address] [place] [address] Anion gap [Moles/Vol] 16 mmol/L Normal 7-20 [facility] Comment on above: Performed By: #### L [id number] #### [facility] [address] [place] [address] Calcium [Mass/Vol] 7.2 mg/dL Low 8.6-10.3 [facility] Comment on above: Performed By: #### L [id number] #### [facility] ([facility]) [address] [place] [address] Chloride [Moles/Vol] 113 mmol/L High 98-107 [facility] Comment on above: Performed By: #### L [id number] #### [facility] ([facility]) [address] [place] [address] CO2 [Moles/Vol] 18 mmol/L Low 21-31 [facility] Comment on above: Performed By: #### L [id number] #### [facility] ([facility]) [address] [place] [address] Creatinine [Mass/Vol] 1.00 mg/dL Normal 0.60-1.20 [facility] Comment on above: Performed By: #### L [id number] #### [facility] ([facility]) [address] [place] [address] GLOMERULAR FILTRATION RATE ML/MIN/1.73 SQ M.PREDICTED 57.3 mL/min/1.73m*2 Low >60.0 [facility] Comment on above: Result Comment: [facility]???s estimated glomerular filtration rate (eGFR) will [...] individuals. Performed By: #### L [id number] #### [facility] ([facility]) [address] [place] [address] Glucose [Mass/Vol] 205 mg/dL High 70-100 [facility] Comment on above: Performed By: #### L [id number] #### [facility] ([facility]) [address] [place] [address] Potassium [Moles/Vol] 3.9 mmol/L Normal 3.5-5.1 [facility] Comment on above: Performed By: #### L [id number] #### [facility] ([facility]) [address] [place] [address] Sodium [Moles/Vol] 143 mmol/L Normal 136-145 [facility] Comment on above: Performed By: #### L [id number] #### [facility] ([facility]) [address] [place] [address] Urea nitrogen [Mass/Vol] 27 mg/dL High 7-25 [facility] Comment on above: Performed By: #### L [id number] #### [facility] ([facility]) [address] [place] [address] UREA NITROGEN/CREATININE (MASS RATIO) IN SER/PLAS 27.0 Normal [facility] Comment on above: Performed By: #### L [id number] #### [facility] [address] [facility] [place] [address] BETA HYDROXYBUTYRATEon 11-14 BETA HYDROXYBUTYRATE (MMOL/L) IN SER/PLAS 0.31 mmol/L High 0.02-0.27 [facility] Comment on above: Performed By: #### L [id number] #### [facility] ([facility]) [address] [place] [address] BLOOD CULTUREon 11-15-2023 Bacteria identified Cx Nom (Bld) No growth at 5 days Normal [facility] Comment on above: Order Comment: From a different site than #1. Performed By: #### L [id number] #### [facility] ([facility]) [address] [place] [address] Bacteria identified Cx Nom (Bld) No growth at 5 days Normal [facility] Comment on above: Performed By: #### L [id number] #### [facility] ([facility]) [address] [place] [address] CALCIUM, IONIZEDon CALCIUM IONIZED (MMOL/L) IN BLOOD 1.09 mmol/L Low 1.15-1.33 [facility] Comment on above: Performed By: #### L [id number] #### [facility] [address] [place] [address] CALCIUM IONIZED (MMOL/L) IN BLOOD 1.05 mmol/L Low 1.15-1.33 [facility] Comment on above: Performed By: #### L [id number] #### [facility] [address] [place] [address] CALCIUM IONIZED (MMOL/L) IN BLOOD 1.06 mmol/L Low 1.15-1.33 [facility] Comment on above: Performed By: #### L [id number] #### [facility] ([facility]) [address] [place] [address] CALCIUM IONIZED (MMOL/L) IN BLOOD 1.12 mmol/L Low 1.15-1.33 [facility] Comment on above: Performed By: #### L [id number] #### [facility] ([facility]) [address] [place] [address] CBCon 11-15-2023 Erythrocyte distribution width (RBC) [Ratio] 21.2 % High 11.5-15.0 [facility] Comment on above: Performed By: #### L [id number] ####[facility] ([facility])[address] [place] [address] ERYTHROCYTE MEAN CORPUSCULAR HEMOGLOBIN CONCENTRATION (G/DL) BY AUTOMATED 33.3 g/dL Normal 32.0-35.0 [facility] Comment on above: Performed By: #### L [id number] ####[facility] ([facility])[address] [place] [address] Hematocrit (Bld) [Volume fraction] 21.9 % Low 36.0-48.0 [facility] Comment on above: Performed By: #### L [id number] ####[facility] ([facility])[address] [place] [address] Hemoglobin (Bld) [Mass/Vol] 7.3 g/dL Low 12.0-15.0 [facility] Comment on above: Performed By: #### L [id number] ####[facility] ([facility])[address] [place] [address] IMMATURE PLATELET FRACTION % 9.7 % High 0.8-6.3 [facility] Comment on above: Performed By: #### L [id number] ####[facility] ([facility])[address] [place] [address] MCH (RBC) [Entitic mass] 28.5 pg Normal 27.0-33.0 [facility] Comment on above: Performed By: #### L [id number] ####[facility] ([facility])[address] [place] [address] MCV (RBC) [Entitic vol] 85.5 fL Normal 82.0-98.0 [facility] Comment on above: Performed By: #### L [id number] ####[facility] [place] [address] PLATELETS (10*3/UL) IN BLOOD AUTOMATED COUNT 115 10*3/uL Low 150-400 [facility] Comment on above: Performed By: #### L [id number] ####[facility] ([facility])[address] [place] [address] RBC (Bld) [#/Vol] 2.56 10*6/uL Low 3.80-5.00 [facility] Comment on above: Performed By: #### L [id number] ####[facility] ([facility])[address] [place] [address] WBC (Bld) [#/Vol] 34.01 10*3/uL High 4.00-10.60 [facility] Comment on above: Performed By: #### L [id number] ####[facility] ([facility])[address] [place] [address] Erythrocyte distribution width (RBC) [Ratio] 21.1 % High 11.5-15.0 [facility] Comment on above: Performed By: #### L [id number] #### [facility] ([facility]) [address] [place] [address] ERYTHROCYTE MEAN CORPUSCULAR HEMOGLOBIN CONCENTRATION (G/DL) BY AUTOMATED 32.2 g/dL Normal 32.0-35.0 [facility] Comment on above: Performed By: #### L [id number] #### [facility] [address] [place] [address] Hematocrit (Bld) [Volume fraction] 25.8 % Low 36.0-48.0 [facility] Comment on above: Result Comment: Pt i s in surgery on 11/15/23 Performed By: #### L [id number] #### [facility] [address] [place] [address] Hemoglobin (Bld) [Mass/Vol] 8.3 g/dL Low 12.0-15.0 [facility] Comment on above: Performed By: #### L [id number] #### [facility] [address] [place] [address] MCH (RBC) [Entitic mass] 27.9 pg Normal 27.0-33.0 [facility] Comment on above: Performed By: #### L [id number] #### [facility] ([facility]) [address] [place] [address] MCV (RBC) [Entitic vol] 86.6 fL Normal 82.0-98.0 [facility] Comment on above: Performed By: #### L [id number] #### [facility] ([facility]) [address] [place] [address] PLATELETS (10*3/UL) IN BLOOD AUTOMATED COUNT 238 10*3/uL Normal 150-400 [facility] Comment on above: Performed By: #### L [id number] #### [facility] ([facility]) [address] [place] [address] RBC (Bld) [#/Vol] 2.98 10*6/uL Low 3.80-5.00 [facility] Comment on above: Performed By: #### L [id number] #### [facility] ([facility]) [address] [place] [address] WBC (Bld) [#/Vol] 16.89 10*3/uL High 4.00-10.60 [facility] Comment on above: Performed By: #### L [id number] #### [facility] [address] [place] [address] CBC WITH AUTO DIFFERENTIALon 11-15-2023 Erythrocyte distribution width (RBC) [Ratio] 20.5 % High 11.5-15.0 [facility] Comment on above: Performed By: #### L [id number] #### [facility] [address] [place] [address] ERYTHROCYTE MEAN CORPUSCULAR HEMOGLOBIN CONCENTRATION (G/DL) BY AUTOMATED 30.3 g/dL Low 32.0-35.0 [facility] Comment on above: Performed By: #### L [id number] #### [facility] [address] [place] [address] Hematocrit (Bld) [Volume fraction] 32.0 % Low 36.0-48.0 [facility] Comment on above: Performed By: #### L [id number] #### [facility] ([facility]) [address] [place] [address] Hemoglobin (Bld) [Mass/Vol] 9.7 g/dL Low 12.0-15.0 [facility] Comment on above: Performed By: #### L [id number] #### [facility] ([facility]) [address] [place] [address] MCH (RBC) [Entitic mass] 27.6 pg Normal 27.0-33.0 [facility] Comment on above: Performed By: #### L [id number] #### [facility] ([facility]) [address] [place] [address] MCV (RBC) [Entitic vol] 90.9 fL Normal 82.0-98.0 [facility] Comment on above: Performed By: #### L [id number] #### [facility] [address] [place] [address] NRBC (PER 100 WBCS) BY AUTOMATED COUNT 0.5 % High 0 [facility] Comment on above: Performed By: #### L [id number] #### [facility] [address] [place] [address] PLATELETS (10*3/UL) IN BLOOD AUTOMATED COUNT 207 10*3/uL Normal 150-400 [facility] Comment on above: Performed By: #### L [id number] #### [facility] ([facility]) [address] [place] [address] RBC (Bld) [#/Vol] 3.52 10*6/uL Low 3.80-5.00 [facility] Comment on above: Performed By: #### L [id number] #### [facility] ([facility]) [address] [place] [address] WBC (Bld) [#/Vol] 34.34 10*3/uL High 4.00-10.60 [facility] Comment on above: Performed By: #### L [id number] #### [facility] ([facility]) [address] [place] [address] CLOSTRIDIOIDES DIFFICILE DNA AMPLIFICATIONon 11-15-2023 CLOSTRIDIOIDES DIFFICILE (TOXIN A/B) Negative Normal Negative [facility] Comment on above: Order Comment: Testi ng methodology is an in vitro diagnostic test for the direct, qualitative detection of the Clostridioides difficile Toxin A gene (tcdA) in unformed stool specimens of patients suspected of having Clostridioides difficile-infection (CDI). The Carter-Waters C. difficile Assay is intended for use as an aid in diagnosis of CDI. The assay utilizes helicase-dependent amplification (HDA) for the amplification of a highly conserved fragment of the Toxin A gene sequence. Performed By: #### L [id number] #### [facility] ([facility]) [address] [place] [address] CONSULTon 11-15-2023 CONSULT Surgical Intensive Care Unit Consult Note Reason For Consult: Postop hypotension Referring Physician: Ortho team Date and time of consultation: 11/15/2023 0100 Chief Complaint: Critical Care Management HPI: 78 y.o. year old female who presented as a direct admission from [facility] on 11/14/2023. Patient sustained a fall which [...] past medical history of Anemia, Atrial fibrillation ([facility]), Calcaneal spur of both feet, Cataracts, bilateral, CHF (congestive heart failure) ([facility]), Chronic pain, Cognitive communication deficit, Delusional disorder ([facility]), Dementia ([facility]), Depression, Fall (11/13/2023), Femur fracture, left ([facility]) (11/13/2023), Generalized weakness, GERD (gastroesophageal reflux disease), History of COVID-19, Hypertension, Hypothyroid, Insomnia, OA (osteoarthritis), Obesity, PVD (peripheral vascular disease) ([facility]), Renal failure, Sick sinus syndrome ([facility]), and Tinea unguium. Past Surgical History: [...] use. Family History: pulled available information in [facility] from previous visits No family history on file. Objective Vitals: BP: (100-115)/(62-65) 113/62 (11/13 1724) Temp: [36 ???C (96.8 ???F)-36.7 ???C (98.1 ???F)] 36 ???C (96.8 ???F) (11/13 2254) Temp Source: Temporal (11/13 2254) Heart Rate: [98-123] 115 (11/14 015) Resp: [16-20] 16 (11/14 114) SpO2: [93 %-100 %] 9 (more content not included)... Normal [facility] HEPATIC FUNCTION PANELon Albumin [Mass/Vol] 2.1 g/dL Low 3.5-5.7 [facility] Comment on above: Performed By: #### L [id number] #### [facility] ([facility]) [address] [place] [address] ALP [Catalytic activity/Vol] 65 U/L Normal 34-104 [facility] Comment on above: Performed By: #### L [id number] #### [facility] ([facility]) [address] [place] [address] ALT [Catalytic activity/Vol] 647 U/L High 7-52 [facility] Comment on above: Performed By: #### L [id number] #### [facility] ([facility]) [address] [place] [address] AST [Catalytic activity/Vol] 1580 U/L High 13-39 [facility] Comment on above: Performed By: #### L [id number] #### [facility] ([facility]) [address] [place] [address] Bilirubin [Mass/Vol] 1.0 mg/dL Normal 0.3-1.0 [facility] Comment on above: Performed By: #### L [id number] #### [facility] ([facility] [address] [place] [address] Magnesium [Mass/Vol] 0.5 mg/dL High 0-0.2 [facility] Comment on above: Performed By: #### L [id number] #### [facility] ([facility] [address] [place] [address] Protein [Mass/Vol] 3.2 g/dL Low 6.0-8.3 [facility] Comment on above: Performed By: #### L [id number] #### [facility] ([facility] [address] [place] [address] LACTIC ACID WITH 4 HOUR REFL EXon 11-15-2023 LACTATE (MMOL/L) IN SER/PLAS 13.2 mmol/L Critically high 0.5-2.2 [facility] Comment on above: Result Comment: M-ID EVIOUS CRITICAL RESULT Previous result verified on 11/15/2023 1231 on specimen/case [id number] called with component Lactate for procedure Lactic acid, plasma with value 16.9 mmol/L. Performed By: #### L [id number] #### [facility] ([facility]) [address] [place] [address] LACTIC ACID, PLASMAon 2023 LACTATE (MMOL/L) IN SER/PLAS 16.9 mmol/L Critically high 0.5-2.2 [facility] Comment on above: Result Comment: Prev ious result verified on 11/15/2023 1055 on specimen/case [id number] called with component Lactate for procedure Lactic acid, plasma with value 17.0 mmol/L. Performed By: #### L [id number] #### [facility] ([facility]) [address] [place] [address] LACTATE (MMOL/L) IN SER/PLAS 17.0 mmol/L Critically high 0.5-2.2 [facility] Comment on above: Performed By: #### L [id number] #### [facility] ([facility]) [address] [place] [address] MAGNESIUMon 11-15-2023 Magnesium [Mass/Vol] 2.5 mg/dL Normal 1.9-2.7 [facility] Comment on above: Performed By: #### L [id number] #### [facility] ([facility] [address] [place] [address] Magnesium [Mass/Vol] 1.6 mg/dL Low 1.9-2.7 [facility] Comment on above: Performed By: #### L [id number] #### [facility] ([facility]) [address] [place] [address] MANUAL DIFFERENTIALon 2023 ANISOCYTOSIS PRESENCE IN BLOOD BY LIGHT MICROSCOPY Moderate Normal [facility] Comment on above: Performed By: #### L [id number] #### [facility] ([facility]) [address] [place] [address] BASOPHILS (10*3/UL) IN BLOOD BY CALCULATION 0.00 10*3/uL Normal 0.00-0.20 [facility] Comment on above: Performed By: #### L [id number] #### [facility] ([facility]) [address] [place] [address] BASOPHILS/100 LEUKOCYTES IN BLOOD BY AUTOMATED COUNT 0.0 % Normal 0.0-1.0 [facility] Comment on above: Performed By: #### L [id number] #### [facility] ([facility]) [address] [facility] [place] [address] EOSINOPHILS (10*3/UL) IN BLOOD BY CALCULATION 0.00 10*3/uL Normal 0.00-0.50 [facility] Comment on above: Performed By: #### L [id number] #### [facility] ([facility]) [address] [place] [address] EOSINOPHILS/100 LEUKOCYTES IN BLOOD BY AUTOMATED COUNT 0.0 % Normal 0.0-6.0 [facility] Comment on above: Performed By: #### L [id number] #### [facility] ([facility]) [address] [place] [address] LYMPHOCYTES (10*3/UL) IN BLOOD BY CALCULATION 2.51 10*3/uL Normal 1.20-4.00 [facility] Comment on above: Performed By: #### L [id number] #### [facility] ([facility]) [address] [place] [address] LYMPHOCYTES/100 LEUKOCYTES IN BLOOD BY AUTOMATED COUNT 7.3 % Low 20.0-45.0 [facility] Comment on above: Performed By: #### L [id number] #### [facility] ([facility]) [address] [place] [address] MONOCYTES (10*3/UL) IN BLOOD BY CALCUATION 0.93 10*3/uL Normal 0.10-1.00 [facility] Comment on above: Performed By: #### L [id number] #### [facility] ([facility]) [address] [place] [address] MONOCYTES/100 LEUKOCYTES IN BLOOD BY AUTOMATED COUNT 2.7 % Low 5.0-12.0 [facility] Comment on above: Performed By: #### L [id number] #### [facility] ([facility]) [address] [place] [address] MYELOCYTES (10*3/UL) IN BLOOD BY CALCULATION 0.93 10*3/uL High 0.00 [facility] Comment on above: Performed By: #### L [id number] #### [facility] ([facility]) [address] [place] [address] MYELOCYTES/100 LEUKOCYTES IN BLOOD CELLAVISION 2.7 % High 0.0-0.0 [facility] Comment on above: Performed By: #### L [id number] #### [facility] ([facility]) [address] [place] [address] NEUTROPHILS (10*3/UL) IN BLOOD BY CALCULATION 30.0 10*3/uL High 1.6-7.6 [facility] Comment on above: Performed By: #### L [id number] #### [facility] ([facility]) [address] [place] [address] NEUTROPHILS/100 LEUKOCYTES IN BLOOD BY AUTOMATED COUNT 87.3 % High 40.0-72.0 [facility] Comment on above: Performed By: #### L [id number] #### [facility] ([facility]) [address] [place] [address] PLASMA CELLS/100 LEUKOCYTES IN BLOOD 0 % Normal 0 [facility] Comment on above: Performed By: #### L [id number] #### [facility] ([facility]) [address] [place] [address] PLATELETS GIANT PRESENCE IN BLOOD BY LIGHT MICROSCOPY Present Normal [facility] Comment on above: Performed By: #### L [id number] #### [facility] ([facility] [address] [place] [address] POIKILOCYTOSIS (PRESENCE) IN BLOOD BY LIGHT MICROSCOPY Slight Normal [facility] Comment on above: Performed By: #### L [id number] #### [facility] ([facility]) [address] [place] [address] POLYCHROMASIA IN BLOOD BY LIGHT MICROSCOPY Slight Normal [facility] Comment on above: Performed By: #### L [id number] #### [facility] ([facility]) [address] [place] [address] SMUDGE CELLS/100 LEUKOCYTES IN BLOOD CELLAVISION Present Normal [facility] Comment on above: Performed By: #### L [id number] #### [facility] ([facility]) [address] [place] [address] VARIANT LYMPHOCYTES (10*3/UL) IN BLOOD BY CALCULATION 0.00 10*3/uL Normal 0.00 [facility] Comment on above: Performed By: #### L [id number] #### [facility] ([facility]) [address] [place] [address] VARIANT LYMPHOCYTES/100 LEUKOCYTES IN BLOOD CELLAVISION 0.0 % Normal 0.0-0.0 [facility] Comment on above: Performed By: #### L [id number] #### [facility] ([facility]) [address] [place] [address] Karla 11-15-2023 KATT PICC Rn spoke with [...] SICU lead RN aware of plan. Normal [facility] PATRICEE PICC RN aware of PIC [...] line. PT RN aware of plan. Normal [facility] PHOSPHORUSon 11-15-2023 Magnesium [Mass/Vol] 8.6 mg/dL High 2.5-5.0 [facility] Comment on above: Performed By: #### L [id number] #### [facility] ([facility]) [address] [place] [address] Magnesium [Mass/Vol] 6.0 mg/dL High 2.5-5.0 [facility] Comment on above: Performed By: #### L [id number] #### [facility] ([facility]) [address] [place] [address] POCT GLUCOSE METER UNSOLICIT ED RESULTSon 11-15-2023 Glucose [Mass/Vol] 165 mg/dL High 70-105 [facility] Comment on above: Order Comment: Waive d Testing in the ED is performed under the ED CLIA certificate #[id number]. Result Comment: [email or web address] Performed By: #### L [id number] ####[facility] ([facility])[address] [facility] [address] Glucose [Mass/Vol] 208 mg/dL High 70-105 [facility] Comment on above: Order Comment: Waive d Testing in the ED is performed under the ED CLIA certificate #[id number]. Result Comment: mmcc vargas Performed By: #### L [id number] #### [facility] ([facility]) [address] [place] [address] POCT PERFUSION PANEL UNSOLIC ITED RESULTSon 11-15-2023 CO2 [Moles/Vol] 20.0 mmol/L Low 21.0-29.0 [facility] Comment on above: Performed By: #### L [id number] #### [facility] ([facility]) [address] [place] [address] Glucose [Mass/Vol] 210 mg/dL High 70-105 [facility] Comment on above: Performed By: #### L [id number] #### [facility] ([facility]) [address] [place] [address] HCO3 (Bld) [Moles/Vol] 18.9 mmol/L Low 23.0-28.0 [facility] Comment on above: Performed By: #### L [id number] #### [facility] ([facility] [address] [place] [address] Hematocrit (Bld) [Volume fraction] 26 % Low 38-51 [facility] Comment on above: Performed By: #### L [id number] #### [facility] ([facility] [address] [place] [address] Hemoglobin (Bld) [Mass/Vol] 8.8 g/dL Low 12.0-17.0 [facility] Comment on above: Performed By: #### L [id number] #### [facility] ([facility] [address] [place] [address] POCT BASE EXCESS -7.0 mmol/L Low -2.0-3.0 [facility] Comment on above: Performed By: #### L [id number] #### [facility] ([facility] [address] [place] [address] POCT IONIZED CALCIUM 1.15 mmol/L Normal 1.12-1.32 [facility] Comment on above: Performed By: #### L [id number] #### [facility] ([facility]) [address] [place] [address] POCT PCO2 39.7 mmHg Low 41.0-51.0 [facility] Comment on above: Performed By: #### L [id number] #### [facility] ([facility]) [address] [place] [address] POCT PH 7.29 Low 7.31-7.41 [facility] Comment on above: Performed By: #### L [id number] #### [facility] ([facility]) [address] [place] [address] POCT PO2 68 mmHg Low 80-105 [facility] Comment on above: Performed By: #### L [id number] #### [facility] ([facility]) [address] [place] [address] POCT SO2 91 % Low 95-98 [facility] Comment on above: Performed By: #### L [id number] #### [facility] ([facility]) [address] [place] [address] Potassium [Moles/Vol] 3.8 mmol/L Normal 3.5-4.9 [facility] Comment on above: Performed By: #### L [id number] #### [facility] ([facility]) [address] [place] [address] Sodium [Moles/Vol] 142 mmol/L Normal 138.0-146.0 [facility] Comment on above: Performed By: #### L [id number] #### [facility] ([facility]) [address] [place] [address] POTASSIUM, WHOLE BLOODon Potassium [Moles/Vol] 3.1 mmol/L Low 3.5-5.1 [facility] Comment on above: Performed By: #### L [id number] #### [facility] ([facility]) [address] [place] [address] Potassium [Moles/Vol] 3.9 mmol/L Normal 3.5-5.1 [facility] Comment on above: Performed By: #### L [id number] #### [facility] ([facility]) [address] [place] [address] Potassium [Moles/Vol] 3.8 mmol/L Normal 3.5-5.1 [facility] Comment on above: Performed By: #### L [id number] #### [facility] ([facility]) [address] [place] [address] Potassium [Moles/Vol] 5.1 mmol/L Normal 3.5-5.1 [facility] Comment on above: Performed By: #### L [id number] #### [facility] (SANDRA) [address] [place] [address] PROTIME-INRon 11-15-2023 INR IN PPP BY COAGULATION ASSAY 11.87 Critically high 0.90-1.10 [facility] Comment on above: Result Comment: [facility] P RECOMMENDED INR FOR WARFARIN THERAPY [...] 1995;108:231S-246S. Performed By: #### L [id number] #### [facility] (BE[facility]SEPH) [address] [place] [address] PROTHROMBIN TIME (PT) IN PPP BY COAGULATION ASSAY 92.6 Seconds Critically high 12.3-14.8 [facility] Comment on above: Performed By: #### L [id number] #### [facility] ([facility]) [address] [place] [address] INR IN PPP BY COAGULATION ASSAY 12.96 Critically high 0.90-1.10 [facility] Comment on above: Result Comment: [facility] P RECOMMENDED INR FOR WARFARIN THERAPY [...] 1995;108:231S-246S. Performed By: #### L [id number] #### [facility] ([facility]) [address] [place] [address] PROTHROMBIN TIME (PT) IN PPP BY COAGULATION ASSAY 99.2 Seconds Critically high 12.3-14.8 [facility] Comment on above: Performed By: #### L [id number] #### [facility] ([facility]) [address] [place] [address] SODIUM, WHOLE BLOODon 2023 SODIUM, WHOLE BLOOD 143 Normal 136-145 [facility] Comment on above: Performed By: #### L [id number] #### [facility] ([facility]) [address] [facility] [place] [address] SODIUM, WHOLE BLOOD 142 Normal 136-145 [facility] Comment on above: Performed By: #### S ODIUM, WHOLE BLOOD ####[facility] [id number] [place] [address] [facility] SODIUM, WHOLE BLOOD 140 Normal 136-145 [facility] Comment on above: Performed By: #### L [id number] #### [facility] ([facility]) [address] [place] [address] SODIUM, WHOLE BLOOD 138 Normal 136-145 [facility] Comment on above: Performed By: #### L [id number] #### [facility] ([facility]) [address] [place] [address] TROPONIN Ion 11-15-2023 Troponin I.cardiac [Mass/Vol] 0.10 ng/mL High 0.00-0.04 [facility] Comment on above: Performed By: #### L [id number] #### [facility] ([facility]) [address] [place] [address] VANCOMYCIN, PEAKon VANCOMYCIN (UG/ML) IN SER/PLAS - PEAK 21.0 ug/mL Normal 20.0-50.0 [facility] Comment on above: Performed By: #### L [id number] ####[facility] ([facility])[address] [place] [address] VITAMIN D 25 HYDROXYon 11-14 CALCIDIOL (25 [place] VITAMIN D3) (NG/ML) IN SER/PLAS 26.1 ng/mL Low 30.0-80.0 [facility] Comment on above: Result Comment: >80. 0 Toxicity possible Performed By: #### L [id number] #### [facility] ([facility]) [address] [place] [address] 30on 11-14-2023 30 Daily Case Managemen t Update Multidisciplinary rounds have been completed. Barriers to Discharge: Pending Clinical course. S/p fall. Planning ORIF Left femur to day with ortho. Pt/ot ordered for POD 1. Confused. From [facility]. Diet: Dietary Orders (From admission, onward) Start [...] Select all services needed for the patient Assisted Facility (30 day convalescent stay) Please indicate your approval for this care by adding your name here: FRAN LANDRY 11/13/232303 Therapy Orders (From admission, onward) Start Ordered 11/13/232248 OT eval and treat Until therapy completed Question: Reason for OT? Answer: Trauma 11/13/23 2304 11/13/232248 PT eval and treat Until therapy completed Question: Reason for PT? Answer: Trauma 11/13/232303 Normal [facility] 30 The patient is Moderately Stable [...] and maintained or improved Outcome: Progressing Normal [facility] ARTERIAL BLOOD GAS WITH CO-O XIMETRYon 11-14-2023 Base excess Calc (Bld) [Moles/Vol] 2.2 mmol/L Normal -2.0-3.0 [facility] Comment on above: Order Comment: Pt in tubated in OR Performed By: #### L [id number] ####[facility] [id number] [place] [address] [facility] CARBOXYHEMOGLOBIN/HEM OGLOBIN TOTAL % IN BLOOD 1.5 % Normal 0.0-3.0 [facility] Comment on above: Order Comment: Pt in tubated in OR Performed By: #### L [id number] ####[facility] [id number] [place] [address] [place] CO2 (Bld) [Partial pressure] 39 mm[Hg] Normal 35-48 [facility] Comment on above: Order Comment: Pt in tubated in OR Performed By: #### L [id number] ####[facility] RES[facility] [id number] [place] [address] [place] DEOXYGENATED HEMOGLOBIN IN BLOOD 0.9 % Low 1-5 [facility] Comment on above: Order Comment: Pt in tubated in OR Performed By: #### L [id number] ####[facility] [id number] [place] [address] [place] HCO3 (Bld) [Moles/Vol] 26.5 mmol/L Normal 21.0-28.0 [facility] Comment on above: Order Comment: Pt in tubated in OR Performed By: #### L [id number] ####[facility] RESPIRAT[facility] [id number] [place] [address] [place] Hemoglobin (Bld) [Mass/Vol] 9.0 g/dL Low 11.7-17.4 [facility] Comment on above: Order Comment: Pt in tubated in [place] Performed By: #### L [id number] ####[facility] RESPIRATORY [id number] [place] [address] [place] METHEMOGLOBIN/100 IN BLOOD 0.2 % Normal 0.0-1.5 [facility] Comment on above: Order Comment: Pt in tubated in OR Performed By: #### L [id number] ####[facility] RESPIRATORY [id number] [place] [address] [place] Oxygen (Bld) [Partial pressure] 125 mm[Hg] High 83-100 [facility] Comment on above: Order Comment: Pt in tubated in [place] Performed By: #### L [id number] ####[facility] RESPIRATORY [id number] [place] [address] [place] OXYGEN SATURATION (%) IN ARTERIAL BLOOD 99.1 % High 94.0-98.0 [facility] Comment on above: Order Comment: Pt in tubated in [place] Performed By: #### L [id number] ####[facility] RESPIRATORY [id number] [place] [address] [place] OXYGENATED HEMOGLOBIN IN BLOOD 97.4 % High 90.0-95.0 [facility] Comment on above: Order Comment: Pt in tubated in [place] Performed By: #### L [id number] ####[facility] RESPIR[facility] [id number] [facility] [address] [facility] pH (Bld) 7.44 [pH] Normal 7.35-7.45 [facility] Comment on above: Order Comment: Pt in tubated in [place] Performed By: #### L [id number] ####[facility] RESPIRATORY [id number] [place] [address] [facility] SOURCE OF OXYGEN Vent Normal [facility] Comment on above: Order Comment: Pt in tubated in [place] Performed By: #### L [id number] ####[facility] RESPIRATORY [id number] [place] [address] [facility] Base excess Calc (Bld) [Moles/Vol] 7.0 mmol/L High -2.0-3.0 [facility] Comment on above: Performed By: #### L [id number] #### [facility] ([facility]) [address] [place] [address] CARBOXYHEMOGLOBIN/HEM OGLOBIN TOTAL % IN BLOOD 1.4 % Normal 0.0-3.0 [facility] Comment on above: Performed By: #### L [id number] #### [facility] ([facility]) [address] [place] [address] CO2 (Bld) [Partial pressure] 33 mm[Hg] Low 35-48 [facility] Comment on above: Performed By: #### L [id number] #### [facility] ([facility]) [address] [place] [address] DEOXYGENATED HEMOGLOBIN IN BLOOD 1.2 % Normal 1-5 [facility] Comment on above: Performed By: #### L [id number] #### [facility] ([facility]) [address] [place] [address] HCO3 (Bld) [Moles/Vol] 29.5 mmol/L High 21.0-28.0 [facility] Comment on above: Performed By: #### L [id number] #### [facility] ([facility]) [address] [place] [address] Hemoglobin (Bld) [Mass/Vol] 9.7 g/dL Low 11.7-17.4 [facility] Comment on above: Performed By: #### L [id number] #### [facility] ([facility]) [address] [place] [address] METHEMOGLOBIN/100 IN BLOOD 0.7 % Normal 0.0-1.5 [facility] Comment on above: Performed By: #### L [id number] #### [facility] ([facility]) [address] [place] [address] Oxygen (Bld) [Partial pressure] 135 mm[Hg] High 83-100 [facility] Comment on above: Performed By: #### L [id number] #### [facility] (BEAKER) [address] [place] [address] OXYGEN SATURATION (%) IN ARTERIAL BLOOD 98.8 % High 94.0-98.0 [facility] Comment on above: Performed By: #### L [id number] #### [facility] ([facility]) [address] [place] [address] OXYGENATED HEMOGLOBIN IN BLOOD 96.7 % High 90.0-95.0 [facility] Comment on above: Performed By: #### L [id number] #### [facility] ([facility]) [address] [place] [address] pH (Bld) 7.56 [pH] Critically high 7.35-7.45 [facility] Comment on above: Performed By: #### L [id number] #### [facility] ([facility]) [address] [place] [address] SOURCE OF OXYGEN Vent Normal [facility] Comment on above: Performed By: #### L [id number] #### [facility] ([facility]) [address] [place] [address] BASIC METABOLIC PANELon 07-0 Anion gap [Moles/Vol] 12 mmol/L Normal 7-20 [facility] Comment on above: Performed By: #### L [id number] #### [facility] ([facility]) [address] [place] [address] Calcium [Mass/Vol] 7.4 mg/dL Low 8.6-10.3 [facility] Comment on above: Performed By: #### L [id number] #### [facility] ([facility]) [address] [place] [address] Chloride [Moles/Vol] 105 mmol/L Normal 98-107 [facility] Comment on above: Performed By: #### L [id number] #### [facility] ([facility]) [address] [place] [address] CO2 [Moles/Vol] 31 mmol/L Normal 21-31 [facility] Comment on above: Performed By: #### L [id number] #### [facility] ([facility]) [address] [place] [address] Creatinine [Mass/Vol] 0.91 mg/dL Normal 0.60-1.20 [facility] Comment on above: Performed By: #### L [id number] #### [facility] ([facility]) [address] [place] [address] GLOMERULAR FILTRATION RATE ML/MIN/1.73 SQ M.PREDICTED 64.2 mL/min/1.73m*2 Normal >60.0 [facility] Comment on above: Result Comment: [facility]???s estimated glomerular filtration rate (eGFR) will [...] individuals. Performed By: #### L [id number] #### [facility] ([facility]) [address] [place] [address] Glucose [Mass/Vol] 120 mg/dL High 70-100 [facility] Comment on above: Performed By: #### L [id number] #### [facility] ([facility]) [address] [place] [address] Potassium [Moles/Vol] 4.1 mmol/L Normal 3.5-5.1 [facility] Comment on above: Performed By: #### L [id number] #### [facility] ([facility]) [address] [place] [address] Sodium [Moles/Vol] 144 mmol/L Normal 136-145 [facility] Comment on above: Performed By: #### L [id number] #### [facility] ([facility]) [address] [place] [address] Urea nitrogen [Mass/Vol] 24 mg/dL Normal 7-25 [facility] Comment on above: Performed By: #### L [id number] #### [facility] ([facility]) [address] [place] [address] UREA NITROGEN/CREATININE (MASS RATIO) IN SER/PLAS 26.4 Normal [facility] Comment on above: Performed By: #### L [id number] #### [facility] ([facility]) [address] [place] [address] CALCIUM, IONIZEDon CALCIUM IONIZED (MMOL/L) IN BLOOD 1.17 mmol/L Normal 1.15-1.33 [facility] Comment on above: Performed By: #### L [id number] #### [facility] ([facility]) [address] [place] [address] CBC WITH AUTO DIFFERENTIALon 11-14-2023 Basophils (Bld) [#/Vol] 0.03 10*3/uL Normal 0.00-0.20 [facility] Comment on above: Performed By: #### L [id number] #### [facility] ([facility]) [address] [place] [address] Basophils/100 WBC (Bld) 0.4 % Normal 0.0-1.0 [facility] Comment on above: Performed By: #### L [id number] #### [facility] [address] [place] [address] Eosinophils (Bld) [#/Vol] 0.00 10*3/uL Normal 0.00-0.50 [facility] Comment on above: Performed By: #### L [id number] #### [facility] ([facility]) [address] [place] [address] Eosinophils/100 WBC (Bld) 0.0 % Normal 0.0-6.0 [facility] Comment on above: Performed By: #### L [id number] #### [facility] ([facility]) [address] [place] [address] Erythrocyte distribution width (RBC) [Ratio] 16.0 % High 11.5-15.0 [facility] Comment on above: Performed By: #### L [id number] #### [facility] ([facility]) [address] [place] [address] ERYTHROCYTE MEAN CORPUSCULAR HEMOGLOBIN CONCENTRATION (G/DL) BY AUTOMATED 30.2 g/dL Low 32.0-35.0 [facility] Comment on above: Performed By: #### L [id number] #### [facility] ([facility]) [address] [place] [address] Hematocrit (Bld) [Volume fraction] 32.1 % Low 36.0-48.0 [facility] Comment on above: Performed By: #### L [id number] #### [facility] ([facility]) [address] [place] [address] Hemoglobin (Bld) [Mass/Vol] 9.7 g/dL Low 12.0-15.0 [facility] Comment on above: Performed By: #### L [id number] #### [facility] ([facility]) [address] [place] [address] Immature granulocytes (Bld) [#/Vol] 0.07 10*3/uL Normal 0.00-0.20 [facility] Comment on above: Performed By: #### L [id number] #### [facility] ([facility]) [address] [place] [address] Immature granulocytes/100 WBC (Bld) 0.8 % Normal 0.0-1.0 [facility] Comment on above: Performed By: #### L [id number] #### [facility] ([facility]) [address] [place] [address] Lymphocytes (Bld) [#/Vol] 1.34 10*3/uL Normal 1.20-4.00 [facility] Comment on above: Performed By: #### L [id number] #### [facility] ([facility]) [address] [facility] [place] [address] Lymphocytes/100 WBC (Bld) 15.9 % Low 20.0-45.0 [facility] Comment on above: Performed By: #### L [id number] #### [facility] ([facility]) [address] [facility] [place] [address] MCH (RBC) [Entitic mass] 29.1 pg Normal 27.0-33.0 [facility] Comment on above: Performed By: #### L [id number] #### [facility] ([facility]) [address] [facility] [place] [place] [address] MCV (RBC) [Entitic vol] 96.4 fL Normal 82.0-98.0 [facility] Comment on above: Performed By: #### L [id number] #### [facility] ([facility]) [address] [place] [address] Monocytes (Bld) [#/Vol] 0.77 10*3/uL Normal 0.10-1.00 [facility] Comment on above: Performed By: #### L [id number] #### [facility] ([facility]) [address] [address] Monocytes/100 WBC (Bld) 9.1 % Normal 5.0-12.0 [facility] Comment on above: Performed By: #### L [id number] #### [facility] ([facility]) [address] [place] [address] Neutrophils (Bld) [#/Vol] 6.22 10*3/uL Normal 1.60-7.60 [facility] Comment on above: Performed By: #### L [id number] #### [facility] ([facility]) [address] [place] [address] Neutrophils/100 WBC (Bld) 73.8 % High 40.0-72.0 [facility] Comment on above: Performed By: #### L [id number] #### [facility] ([facility]) [address] [place] [address] NRBC (PER 100 WBCS) BY AUTOMATED COUNT 0.0 % Normal 0 [facility] Comment on above: Performed By: #### L [id number] #### [facility] ([facility]) [address] [place] [address] PLATELETS (10*3/UL) IN BLOOD AUTOMATED COUNT 223 10*3/uL Normal 150-400 [facility] Comment on above: Performed By: #### L [id number] #### [facility] ([facility]) [address] [place] [address] RBC (Bld) [#/Vol] 3.33 10*6/uL Low 3.80-5.00 [facility] Comment on above: Performed By: #### L [id number] #### [facility] ([facility]) [address] [place] [address] WBC (Bld) [#/Vol] 8.43 10*3/uL Normal 4.00-10.60 [facility] Comment on above: Performed By: #### L [id number] #### [facility] ([facility] [address] [place] [address] CONSULTon 07-02-2024 CONSULT -- Attestation signed by [...] a femur fracture following a fall at [facility]. Cardiology was consulted for pre-op clearance. Patient [...] past medical history of Anemia, Atrial fibrillation ([facility]), Calcaneal spur of both feet, Cataracts, bilateral, CHF (congestive heart failure) ([facility]), Chronic pain, Cognitive communication deficit, Delusional disorder ([facility]), Dementia ([facility]), Depression, Fall (11/13/2023), Femur fracture, left ([facility]) (11/13/2023), Generalized weakness, GERD (gastroesophageal reflux disease), History of COVID-19, Hypertension, Hypothyroid, Insomnia, OA (osteoarthritis), Obesity, PVD (peripheral vascular disease) ([facility]), Renal failure, Sick sinus syndrome ([facility]), and Tinea unguium. Surgical History She [...] Apply topi (more content not included)... Normal [facility] HPon 11-14-2023 History Of Present Illness [...] (CMS/HCC), Depression, Fall (11/13/2023), Femur fracture, left ([facility]) (11/13/2023), Generalized weakness, GERD (gastroesophageal reflux disease), History of COVID-19, Hypertension, Hypothyroid, Insomnia, OA (osteoarthritis), Obesity, PVD (peripheral vascular disease) ([facility]), Renal failure, Sick sinus syndrome ([facility]), and Tinea unguium. Surgical History She [...] Agent, Strain, 3D, Bubble Study 1 1 [facility] [address] [place] [address] [phone] (fax) Echocardiogram-[place] (more content not included)... Normal [facility] MAGNESIUMon 11-14-2023 Magnesium [Mass/Vol] 1.7 mg/dL Low 1.9-2.7 [facility] Comment on above: Performed By: #### L [id number] #### [facility] ([facility]) [address] [place] [address] OPNOTEon 11-14-[address] [facility] OPERATIVE REPORT Date of Surgery: 11/14/2023 Surgeon: Aric Smith MD [employer] Consultant: Long Perdomo MD, Quinten Rahman DO Preoperative [...] 78 y.o. female who was transferred from [place] for a left periprosthetic femur fracture. Due [...] 10 t (more content not included)... Normal [facility] PHOSPHORUSon 11-14-2023 Magnesium [Mass/Vol] 4.5 mg/dL Normal 2.5-5.0 [facility] Comment on above: Performed By: #### L [id number] #### [facility] ([facility]) [address] [place] [address] POCT GLUCOSE METER UNSOLICIT ED RESULTSon 11-14-2023 Glucose [Mass/Vol] 181 mg/dL High 70-105 [facility] Comment on above: Order Comment: Waive d Testing in the ED is performed under the ED CLIA certificate #[id number]. Result Comment: czyd orc Performed By: #### L [id number] #### [facility] ([employer]) [address] [place] [address] Glucose [Mass/Vol] 120 mg/dL High 70-105 [facility] Comment on above: Order Comment: Waive d Testing in the ED is performed under the ED CLIA certificate #[id number]. Result Comment: epaw low Performed By: #### L [id number] #### [facility] ([facility]) [address] [place] [place] [address] Glucose [Mass/Vol] 113 mg/dL High 70-105 [facility] Comment on above: Order Comment: Waive d Testing in the ED is performed under the ED CLIA certificate #[id number]. Result Comment: epoo le6 Performed By: #### L [id number] ####[facility] ([facility])[address] [place] [address] Glucose [Mass/Vol] 131 mg/dL High 70-105 [facility] Comment on above: Order Comment: Waive d Testing in the ED is performed under the ED CLIA certificate #[id number]. Result Comment: lzwo judith Performed By: #### L [id number] ####[facility] ([facility])[address] [place] [address] Glucose [Mass/Vol] 111 mg/dL High 70-105 [facility] Comment on above: Order Comment: Waive d Testing in the ED is performed under the ED CLIA certificate #[id number]. Result Comment: lzwo judith Performed By: #### L [id number] #### [facility] (Swish) [address] [place] [address] POTASSIUM, WHOLE BLOODon Potassium [Moles/Vol] 4.0 mmol/L Normal 3.5-5.1 [facility] Comment on above: Performed By: #### L [id number] #### [facility] ([facility]) [address] [place] [address] SODIUM, WHOLE BLOODon 2023 SODIUM, WHOLE BLOOD 139 Normal 136-145 [facility] Comment on above: Performed By: #### L [id number] #### [facility] ([facility]) [address] [place] [address] APTTon 11-13-2023 ACTIVATED PARTIAL THROMBOPLASTIN TIME IN PPP BY COAGULATION ASSAY 34.0 Seconds Normal 25.0-35.0 [facility] Comment on above: Result Comment: Clin ical significance of the APTT is questionable in the presence of heparin. Performed By: #### L [id number] #### [facility] ([facility]) [address] [place] [address] BASIC METABOLIC PANELon 07-0 Anion gap [Moles/Vol] 16 mmol/L Normal 7-20 [facility] Comment on above: Performed By: #### L [id number] ####[facility] ([facility] [place] [address] Calcium [Mass/Vol] 7.8 mg/dL Low 8.6-10.3 [facility] Comment on above: Performed By: #### L [id number] ####[facility] ([facility] [place] [address] Chloride [Moles/Vol] 104 mmol/L Normal 98-107 [facility] Comment on above: Performed By: #### L [id number] ####[facility] ([facility] [place] [address] CO2 [Moles/Vol] 27 mmol/L Normal 21-31 [facility] Comment on above: Performed By: #### L [id number] ####[facility] ([facility] [place] [address] Creatinine [Mass/Vol] 0.91 mg/dL Normal 0.60-1.20 [facility] Comment on above: Performed By: #### L [id number] ####[facility] ([facility] [place] [address] GLOMERULAR FILTRATION RATE ML/MIN/1.73 SQ M.PREDICTED 64.2 mL/min/1.73m*2 Normal >60.0 [facility] Comment on above: Result Comment: [facility]???s estimated glomerular filtration rate (eGFR) will [...] of individuals. Performed By: #### L [id number] ####[facility] ([facility])[address] [place] [address] Glucose [Mass/Vol] 125 mg/dL High 70-100 [facility] Comment on above: Performed By: #### L [id number] ####[facility] ([facility])[address] [place] [address] Potassium [Moles/Vol] 4.4 mmol/L Normal 3.5-5.1 [facility] Comment on above: Performed By: #### L [id number] ####[facility] ([facility])[address] [place] [address] Sodium [Moles/Vol] 143 mmol/L Normal 136-145 [facility] Comment on above: Performed By: #### L [id number] ####[facility] ([facility])[address] [place] [address] Urea nitrogen [Mass/Vol] 23 mg/dL Normal 7-25 [facility] Comment on above: Performed By: #### L [id number] ####[facility] ([facility])[address] [place] [address] UREA NITROGEN/CREATININE (MASS RATIO) IN SER/PLAS 25.3 Normal [facility] Comment on above: Performed By: #### L [id number] ####[facility] ([facility])[address] [place] [address] CBC WITH AUTO DIFFERENTIALon 11-13-2023 Basophils (Bld) [#/Vol] 0.03 10*3/uL Normal 0.00-0.20 [facility] Comment on above: Performed By: #### L [id number] #### [facility] ([facility]) [address] [place] [address] Basophils/100 WBC (Bld) 0.3 % Normal 0.0-1.0 [facility] Comment on above: Performed By: #### L [id number] #### [facility] (BE[facility]ER) [address] [place] [address] Eosinophils (Bld) [#/Vol] 0.00 10*3/uL Normal 0.00-0.50 [facility] Comment on above: Performed By: #### L [id number] #### [facility] ([facility]) [address] [place] [address] Eosinophils/100 WBC (Bld) 0.0 % Normal 0.0-6.0 [facility] Comment on above: Performed By: #### L [id number] #### [facility] ([facility]) [address] [place] [address] Erythrocyte distribution width (RBC) [Ratio] 15.9 % High 11.5-15.0 [facility] Comment on above: Performed By: #### L [id number] #### [facility] ([facility]) [address] [place] [address] ERYTHROCYTE MEAN CORPUSCULAR HEMOGLOBIN CONCENTRATION (G/DL) BY AUTOMATED 30.4 g/dL Low 32.0-35.0 [facility] Comment on above: Performed By: #### L [id number] #### [facility] ([facility]) [address] [place] [address] Hematocrit (Bld) [Volume fraction] 36.2 % Normal 36.0-48.0 [facility] Comment on above: Performed By: #### L [id number] #### [facility] [address] [place] [address] Hemoglobin (Bld) [Mass/Vol] 11.0 g/dL Low 12.0-15.0 [facility] Comment on above: Performed By: #### L [id number] #### [facility]) [address] [place] [address] Immature granulocytes (Bld) [#/Vol] 0.09 10*3/uL Normal 0.00-0.20 [facility] Comment on above: Performed By: #### L [id number] #### [facility] ([facility] [address] [place] [address] Immature granulocytes/100 WBC (Bld) 0.9 % Normal 0.0-1.0 [facility] Comment on above: Performed By: #### L [id number] #### [facility] ([facility]) [address] [address] Lymphocytes (Bld) [#/Vol] 1.28 10*3/uL Normal 1.20-4.00 [facility] Comment on above: Performed By: #### L [id number] #### [facility] ([facility]) [address] [place] [address] Lymphocytes/100 WBC (Bld) 12.4 % Low 20.0-45.0 [facility] Comment on above: Performed By: #### L [id number] #### [facility] ([facility]) [address] [facility] [place] [address] MCH (RBC) [Entitic mass] 28.8 pg Normal 27.0-33.0 [facility] Comment on above: Performed By: #### L [id number] #### [facility] ([facility]) [address] [place] [address] MCV (RBC) [Entitic vol] 94.8 fL Normal 82.0-98.0 [facility] Comment on above: Performed By: #### L [id number] #### [facility] ([facility]) [address] [place] [address] Monocytes (Bld) [#/Vol] 0.73 10*3/uL Normal 0.10-1.00 [facility] Comment on above: Performed By: #### L [id number] #### [facility] ([facility]) [address] [facility] [place] [address] Monocytes/100 WBC (Bld) 7.1 % Normal 5.0-12.0 [facility] Comment on above: Performed By: #### L [id number] #### [facility] [address] [place] [address] Neutrophils (Bld) [#/Vol] 8.21 10*3/uL High 1.60-7.60 [facility] Comment on above: Performed By: #### L [id number] #### [facility] ([facility]) [address] [place] [address] Neutrophils/100 WBC (Bld) 79.3 % High 40.0-72.0 [facility] Comment on above: Performed By: #### L [id number] #### [facility] ([facility]) [address] [place] [address] NRBC (PER 100 WBCS) BY AUTOMATED COUNT 0.0 % Normal 0 [facility] Comment on above: Performed By: #### L [id number] #### [facility] ([facility]) [address] [place] [address] PLATELETS (10*3/UL) IN BLOOD AUTOMATED COUNT 262 10*3/uL Normal 150-400 [facility] Comment on above: Performed By: #### L [id number] #### [facility] ([facility]) [address] [place] [address] RBC (Bld) [#/Vol] 3.82 10*6/uL Normal 3.80-5.00 [facility] Comment on above: Performed By: #### L [id number] #### [facility] ([facility]) [address] [place] [address] WBC (Bld) [#/Vol] 10.34 10*3/uL Normal 4.00-10.60 [facility] Comment on above: Performed By: #### L [id number] #### [facility] ([facility]) [address] [place] [address] CONSULTon 11-13-2023 CONSULT -- Attestation signed by Flako Gonzalez MD at 11/14/2023 3:09 PM I did not personally examine the patient. I discussed the case with the resident and agree with the plan. Orthopedic Surgery Subjective Left femur periprosthetic fracture 11/13/23 Celia Menon is a 78 y.o. female presenting as a transfer from [place] with pain secondary to left sided zarina-prosthetic [...] Medical History: Diagnosis Date Anemia Atrial fibrillation ([facility]/HCC) Calcaneal spur of both feet Cataracts, bilateral CHF (congestive heart failure) ([facility]/HCC) Chronic pain Cognitive communication deficit Delusional disorder ([facility]/HCC) Dementia ([facility]) Depression Fall 11/13/2023 Femur fracture, left ([facility]/HCC) 11/13/2023 Generalized weakness GERD (gastroesophageal reflux disease) [...] Olivera MD Orthopaedic Surgery, Resident Ortho Pager [phone] 11/13/23 10:47 PM May contact the on-call resident with any concerns via the Orthopaedic pager at any time. Normal [facility] CT FEMUR LEFT WO IV CONTRAST [...] signed: Ellis Valencia. 8 Invalid Interpretation Code [facility] HPon 11-13-2023 HP Subjective Chief Complaint: Trauma Fall Mechanism of Injury (History of what occurred prior to arrival): 78 y.o. year old female who was brought in via EMS. She had no C-collar or back board in place. Circumstances of injury: Patient presents as a direct admission from [facility]. Patient reportedly lives in a nursing facility [...] use. Family History: pulled available information in [facility] from previous visits No family history [...] ) ( (more content not included)... Normal [facility] MAGNESIUMon 11-13-2023 Magnesium [Mass/Vol] 1.8 mg/dL Low 1.9-2.7 [facility] Comment on above: Performed By: #### L [id number] #### [facility] (BEAKER) [address] [place] [address] PROTIME-INRon 11-13-2023 INR IN PPP BY COAGULATION ASSAY 1.79 High 0.90-1.10 [facility] Comment on above: Result Comment: ACCC [...] 1995;[id number]. Performed By: #### L [id number] #### [facility]) [address] [place] [address] PROTHROMBIN TIME (PT) IN PPP BY COAGULATION ASSAY 20.9 Seconds High 12.3-14.8 [facility] Comment on above: Performed By: #### L [id number] #### [facility] [address] [place] [address] TROPONIN Ion 11-13-2023 Troponin I.cardiac [Mass/Vol] 0.02 ng/mL Normal 0.00-0.04 [facility] Comment on above: Performed By: #### L [id number] #### [facility] ([facility]) [address] [place] [address] TYPE AND SCREENon 11-13-2023 AB SCREEN Negative Normal [facility] Comment on above: Performed By: #### L [id number] #### [facility] ([facility]) [address] [place] [address] ABO group Nom (Bld) O Normal [facility] Comment on above: Performed By: #### L [id number] #### [facility] (BEAKER) [address] [place] [address] RH TYPE IN BLOOD Positive Normal [facility] Comment on above: Performed By: #### L [id number] #### [facility] (BEAKER) [address] [place] [address] VIT D 25-[place] [facility]on 2022 Vitamin D, 25-Hydroxy 35.9 ng/mL Normal 30.0-100.0 [facility] Comment on above: Result Comment: Jadyn min D deficiency has been defined by the [place] of Medicine and an Endocrine Society practice guideline as a level of serum 25-OH vitamin D less than 20 ng/mL (1,2). The Endocrine Society went on to further define vitamin D insufficiency as a level between 21 and 29 ng/mL (2). 1. IOM ([place] of Medicine). 2010. Dietary reference intakes for calcium and D. [place]: The National Academies Press. 2. Yamilex MF, Florecita NC, Mala-Irving OTTO, et al. Evaluation, treatment, and prevention of vitamin D deficiency: an Endocrine Society clinical practice guideline. JCEM. 2010; 96(7):1911-30. Performed By: #### V ITADLC #### [facility] [address] [address] [address] Ashwin Key CBC AUTO DIFFon 08-22-2022 BASO # 0.0 103/ul Normal 0.0-0.1 [facility] Comment on above: Performed By: #### C BC #### [facility] [address] [address] [address] Ashwin Key Basophils/100 WBC (Bld) 0.5 % Normal 0.2-2.0 [facility] Comment on above: Performed By: #### C BC #### [facility] [address] [address] [address] Ashwin Key EO # 0.0 103/ul Normal 0.0-0.7 [facility] Comment on above: Performed By: #### C BC #### [facility] [address] [place] [address] Dr. Ashwin Key Eosinophils/100 WBC (Bld) 0.0 % Critically low 0.9-7.0 [facility] Comment on above: Performed By: #### C BC #### [facility] [address] [place] [address] Dr. Ashwin Key Erythrocyte distribution width (RBC) [Ratio] 14.7 % Normal 11.0-15.0 [facility] Comment on above: Performed By: #### C BC #### [facility] [address] [place] [address] Dr. Ashwin Key Hematocrit (Bld) [Volume fraction] 38.0 % Normal 36.0-48.0 [facility] Comment on above: Performed By: #### C BC #### [facility] [address] [place] [address] Dr. Ashwin Key Hemoglobin (Bld) [Mass/Vol] 11.5 g/dL Critically low 12.0-16.0 [facility] Comment on above: Performed By: #### C BC #### [facility] [address] [place] [address] Dr. Ashwin Key IG # 0.01 10e3/ul Normal 0.00-0.03 [facility] Comment on above: Performed By: #### C BC #### [facility] [address] [place] [address] Dr. Ashwin Key IG % 0.2 % Normal 0.0-0.5 [facility] Comment on above: Performed By: #### C BC #### [facility] [address] [place] [address] Dr. Ashwin Key LYMPH # 2.1 103/ul Normal 1.2-3.8 [facility] Comment on above: Performed By: #### C BC #### [facility] [address] [place] [address] Dr. Ashwin Key Lymphocytes/100 WBC (Bld) 48.4 % Normal 20.5-60.0 [facility] Comment on above: Performed By: #### C BC #### [facility] [address] [place] [address] Dr. Ashwin Key MANUAL DIFF REQ NO Normal [facility] Comment on above: Performed By: #### C BC #### [facility] [address] [place] [address] Dr. Ashwin Key MCH (RBC) [Entitic mass] 28.8 pg Normal 26.7-34.0 [facility] Comment on above: Performed By: #### C BC #### [facility] [address] [place] [address] Dr. Ashwin Key MCHC (RBC) [Mass/Vol] 30.3 g/dL Normal 29.9-35.2 [facility] Comment on above: Performed By: #### C BC #### [facility] [address] [place] [address] Dr. Ashwin Key MCV (RBC) [Entitic vol] 95.0 fL Normal 81.0-99.0 [facility] Comment on above: Performed By: #### C BC #### [facility] [address] [place] [address] Dr. Ashwin Key MONO # 0.4 103/ul Normal 0.3-0.8 [facility] Comment on above: Performed By: #### C BC #### [facility] [address] [place] [address] Dr. Ashwin Key Monocytes/100 WBC (Bld) 9.3 % Normal 1.7-12.0 [facility] Comment on above: Performed By: #### C BC #### [facility] [address] [place] [address] Dr. Ashwin Key NEUT # 1.8 103/ul Normal 1.4-6.5 [facility] Comment on above: Performed By: #### C BC #### [facility] [address] [place] [address] Dr. Ashwin Key Neutrophils/100 WBC (Bld) 41.6 % Critically low 43.0-75.0 [facility] Comment on above: Performed By: #### C BC #### [facility] [address] [address] [address] Ashwin Key Platelet mean volume (Bld) [Entitic vol] 10.3 fL Normal 9.5-13.5 [facility] Comment on above: Performed By: #### C BC #### [facility] [address] [address] [address] Ashwin Key PLT 166 103/ul Normal 150-450 [facility] Comment on above: Performed By: #### C BC #### [facility] [address] [address] [address] Ashwin Key RBC 4.00 106/ul Critically low 4.20-5.40 [facility] Comment on above: Performed By: #### C BC #### [facility] [address] [place] [address] Dr. Ashwin Key WBC 4.4 103/ul Normal 4.0-11.0 [facility] Comment on above: Performed By: #### C BC #### [facility] [address] [place] [address] Dr. Ashwin Key GLYCOHEMOGLOBIN A1Con 2022 ADA RECOMMENDATION SEE BELOW Normal [facility] Comment on above: Result Comment: ADA RECOMMENDED LIMIT 4.0 - 6.0 ADA THERAPEUTIC TARGET < 7.0 ACTION SUGGESTED > 7.0 Performed By: #### A 1C #### [facility] [address] [place] [address] Dr. Ashwin Key Glucose [Mass/Vol] 105 mg/dL Normal [facility] Comment on above: Performed By: #### A 1C #### [facility] [address] [place] [address] Dr. Ashwin Key HbA1c (Bld) [Mass fraction] 5.3 % Normal 4.5-6.2 [facility] Comment on above: Performed By: #### A 1C #### [facility] [address] [place] [address] Dr. Ashwin Key LIPID PROFILEon 08-22-2022 CHOL-HDL RATIO NORM SEE BELOW Normal [facility] Comment on above: Result Comment: 3.3 - 4.4 LOW RISK 4.4 - 7.1 AVERAGE RISK 7.1 - 11.0 MODERATE RISK >11.0 HIGH RISK Performed By: #### U GURVINDER BUTTICRO #### [facility] [address] [address] [address] Ashwin Key Cholesterol [Mass/Vol] 103 mg/dL Normal <=200 [facility] Comment on above: Performed By: #### U FILOMENA UMICRO #### [facility] [address] [address] [address] Ashwin Key Cholesterol in HDL [Mass/Vol] 40 mg/dL Normal 40-60 [facility] Comment on above: Performed By: #### U GURVINDER BUTTICRO #### [facility] [address] [place] [address] Dr. Ashwin Key Cholesterol in LDL [Mass/Vol] 51.8 mg/dL Normal [facility] Comment on above: Performed By: #### U GURVINDER BUTTICRO #### [facility] [address] [place] [address] Dr. Ashwin Key Cholesterol.total/Cho lesterol in HDL [Mass ratio] 2.6 {ratio} Normal [facility] Comment on above: Performed By: #### U FILOMENA UMICRO #### [facility] [address] [place] [address] Dr. Ashwin Key HDL NORMAL > or = 60 mg/dl - LO W CARDIOVASCULAR RISK <40 mg/dl - HIGH CARDIOVASCULAR RISK Normal [facility] Comment on above: Performed By: #### U ACSJAZMIN UMICRO #### [facility] [address] [place] [address] Dr. Ashwin Key LDL CALC NORMAL SEE BELOW Normal [facility] Comment on above: Result Comment: <100 mg/dl OPTIMAL 100 - 129 mg/dl NEAR OR ABOVE OPTIMAL 130 - 159 mg/dl BORDERLINE HIGH 160 - 189 mg/dl HIGH >190 mg/dl VERY HIGH Performed By: #### U FILOMENA UMICRO #### [facility] [address] [address] [address] Ashwin Key Triglyceride [Mass/Vol] 56 mg/dL Normal <=150 [facility] Comment on above: Performed By: #### U GURVINDER BUTTICRO #### [facility] [address] [address] [address] Ashwin Key VLDL CALC 11.2 mg/dL Normal [facility] Comment on above: Performed By: #### U GURVINDER BUTTICRO #### [facility] [address] [address] [address] Ashwin Key PROF 14(COMP METB)on 023 Albumin [Mass/Vol] 2.5 g/dL Critically low 3.4-5.0 Th [facility] Comment on above: Performed By: #### U JOEY BUTTRO #### [facility] [address] [place] [address] Dr. Ashwin Key Albumin/Globulin [Mass ratio] 0.7 {ratio} Normal [facility] Comment on above: Performed By: #### Lisseth BUTT UMICRO #### [facility] [address] [place] [address] Dr. Ashwin Key ALP [Catalytic activity/Vol] 110 U/L Normal 46-116 [facility] Comment on above: Performed By: #### U JOEY BUTTRO #### [facility] [address] [place] [address] Dr. Ashwin Key ALT [Catalytic activity/Vol] 16 U/L Normal 14-59 [facility] Comment on above: Performed By: #### U JOEY BUTTRO #### [facility] [address] [address] [address] Ashwin Key Anion gap [Moles/Vol] 9.8 mmol/L Normal [facility] Comment on above: Performed By: #### U FILOMENA UMICRO #### [facility] [address] [address] [address] Ashwin Key AST [Catalytic activity/Vol] 13 U/L Critically low 15-37 [facility] Comment on above: Performed By: #### U FILOMENA UMICRO #### [facility] [address] [address] [address] Ashwin Key Bilirubin [Mass/Vol] 0.4 mg/dL Normal 0.2-1.0 [facility] Comment on above: Performed By: #### U ACSIND, UMICRO #### [facility] [address] [address] [address] Ashwin Key Calcium [Mass/Vol] 8.5 mg/dL Normal 8.5-10.1 [facility] Comment on above: Performed By: #### U ACSIND, UMICRO #### [facility] [address] [address] [address] Ashwin Key Chloride [Moles/Vol] 108 mmol/L Critically high 98-107 [facility] Comment on above: Performed By: #### U ACSIND, UMICRO #### [facility] [address] [place] [address] Dr. Ashwin Key CO2 [Moles/Vol] 31.0 mmol/L Normal 21.0-32.0 [facility] Comment on above: Performed By: #### U ACSJAZMIN, UMICRO #### [facility] [address] [address] [address] Ashwin Key Creatinine [Mass/Vol] 0.91 mg/dL Normal 0.55-1.02 [facility] Comment on above: Performed By: #### U ACSJAZMIN, UMICRO #### [facility] [address] [address] [address] Ashwin Key EGFR-AF ISRAELI >60 Normal >=60 [facility] Comment on above: Performed By: #### U ACSIND, UMICRO #### [facility] [address] [address] [address] Ashwin Key EGFR-NON AF ISRAELI 60 mL/min/1.73m2 Normal >=60 [facility] Comment on above: Performed By: #### U ACSIND, UMICRO #### [facility] [address] [address] [address] Ashwin Key Globulin (S) [Mass/Vol] 3.5 g/dL Normal [facility] Comment on above: Performed By: #### U ACSJAZMIN UMICRO #### [facility] [address] [address] [address] Ashwin Key Glucose [Mass/Vol] 99 mg/dL Normal 74-106 [facility] Comment on above: Performed By: #### U FILOMENA UMICRO #### [facility] [address] [address] [address] Ashwin Key Potassium [Moles/Vol] 3.8 mmol/L Normal 3.5-5.1 [facility] Comment on above: Performed By: #### U ACSJAZMIN UMICRO #### [facility] [address] [address] [address] Ashwin Key Protein [Mass/Vol] 6.0 g/dL Critically low 6.4-8.[address] [facility] Comment on above: Performed By: #### U FILOMENA UMICRO #### [facility] [address] [address] [address] Ashwin Key Sodium [Moles/Vol] 145 mmol/L Normal 136-145 [facility] Comment on above: Performed By: #### Lisseth BUTT UMICRO #### [facility] [address] [place] [address] Dr. Ashwin Key Urea nitrogen [Mass/Vol] 24.0 mg/dL Critically high 7.0-18.0 [facility] Comment on above: Performed By: #### U FILOMENA UMICRO #### [facility] [address] [address] [address] Ashwin Key Urea nitrogen/Creatinine [Mass ratio] 26.4 mg/mg Normal [facility] Comment on above: Performed By: #### U FILOMENA UMICRO #### [facility] [address] [place] [address] Dr. Ashwin Key TSHon 08-22-2022 TSH 5.573 uIU/mL Critically high 0.358-3.740 [facility] Comment on above: Performed By: #### U FILOMENA UMICRO #### [facility] [address] [address] [address] Ashwin Key CBC AUTO DIFFon 08-10-2022 BASO # 0.0 103/ul Normal 0.0-0.1 [facility] Comment on above: Performed By: #### C BC #### [facility] [address] [place] [address] Dr. Ashwin Key Basophils/100 WBC (Bld) 0.7 % Normal 0.2-2.0 [facility] Comment on above: Performed By: #### C BC #### [facility] [address] [place] [address] Dr. Ashwin Key EO # 0.0 103/ul Normal 0.0-0.7 [facility] Comment on above: Performed By: #### C BC #### [facility] [address] [place] [address] Dr. Ashwin Key Eosinophils/100 WBC (Bld) 0.0 % Critically low 0.9-7.0 [facility] Comment on above: Performed By: #### C BC #### [facility] [address] [place] [address] Dr. Ashwin Key Erythrocyte distribution width (RBC) [Ratio] 15.1 % Critically high 11.0-15.0 [facility] Comment on above: Performed By: #### C BC #### [facility] [address] [place] [address] Dr. Ashwin Key Hematocrit (Bld) [Volume fraction] 38.0 % Normal 36.0-48.0 [facility] Comment on above: Performed By: #### C BC #### [facility] [address] [place] [address] Dr. Ashwin Key Hemoglobin (Bld) [Mass/Vol] 11.4 g/dL Critically low 12.0-16.0 [facility] Comment on above: Performed By: #### C BC #### [facility] [address] [place] [address] Dr. Ashwin Key IG # 0.02 10e3/ul Normal 0.00-0.03 [facility] Comment on above: Performed By: #### C BC #### [facility] [address] [place] [address] Dr. Ashwin Key IG % 0.5 % Normal 0.0-0.5 [facility] Comment on above: Performed By: #### C BC #### [facility] [address] [place] [address] Dr. Ashwin Key LYMPH # 2.1 103/ul Normal 1.2-3.8 [facility] Comment on above: Performed By: #### C BC #### [facility] [address] [place] [address] Dr. Ashwin Key Lymphocytes/100 WBC (Bld) 48.4 % Normal 20.5-60.0 [facility] Comment on above: Performed By: #### C BC #### [facility] [address] [place] [address] Dr. Ashwin Key MANUAL DIFF REQ NO Normal [facility] Comment on above: Performed By: #### C BC #### [facility] [address] [place] [address] Dr. Ashwin Key MCH (RBC) [Entitic mass] 28.8 pg Normal 26.7-34.0 [facility] Comment on above: Performed By: #### C BC #### [facility] [address] [place] [address] Dr. Ashwin Key MCHC (RBC) [Mass/Vol] 30.0 g/dL Normal 29.9-35.2 [facility] Comment on above: Performed By: #### C BC #### [facility] [address] [place] [address] Dr. Ashwin Key MCV (RBC) [Entitic vol] 96.0 fL Normal 81.0-99.0 [facility] Comment on above: Performed By: #### C BC #### [facility] [address] [place] [address] Dr. Ashwin Key MONO # 0.3 103/ul Normal 0.3-0.8 [facility] Comment on above: Performed By: #### C BC #### [facility] [address] [place] [address] Dr. Ashwin Key Monocytes/100 WBC (Bld) 7.7 % Normal 1.7-12.0 [facility] Comment on above: Performed By: #### C BC #### [facility] [address] [place] [address] Dr. Ashwin Key NEUT # 1.8 103/ul Normal 1.4-6.5 [facility] Comment on above: Performed By: #### C BC #### [facility] [address] [place] [address] Dr. Ashwin Key Neutrophils/100 WBC (Bld) 42.7 % Critically low 43.0-75.0 [facility] Comment on above: Performed By: #### C BC #### [facility] [address] [place] [address] Dr. Ashwin Key Platelet mean volume (Bld) [Entitic vol] 10.1 fL Normal 9.5-13.5 [facility] Comment on above: Performed By: #### C BC #### [facility] [address] [place] [address] Dr. Ashwin Key PLT 156 103/ul Normal 150-450 [facility] Comment on above: Performed By: #### C BC #### [facility] [address] [place] [address] Dr. Ashwin Key RBC 3.96 106/ul Critically low 4.20-5.40 [facility] Comment on above: Performed By: #### C BC #### [facility] [address] [place] [address] Dr. Ashwin Key WBC 4.3 103/ul Normal 4.0-11.0 [facility] Comment on above: Performed By: #### C BC #### [facility] [address] [place] [address] Dr. Ashwin Key PROF CHEM 8 (BAS METB)on Anion gap [Moles/Vol] 13.3 mmol/L Normal [facility] Comment on above: Performed By: #### U ACSIND, UMICRO #### [facility] [address] [address] [address] Ashwin Key Calcium [Mass/Vol] 8.3 mg/dL Critically low 8.5-10.[address] [facility] Comment on above: Performed By: #### U ACSIND, UMICRO #### [facility] [address] [address] [address] Ashwin Key Chloride [Moles/Vol] 111 mmol/L Critically high 98-107 [facility] Comment on above: Performed By: #### U ACSIND, UMICRO #### [facility] [address] [address] [address] Ashwin Key CO2 [Moles/Vol] 29.9 mmol/L Normal 21.0-32.0 [facility] Comment on above: Performed By: #### U ACSIND, UMICRO #### [facility] [address] [address] [address] Ashwin Key Creatinine [Mass/Vol] 0.92 mg/dL Normal 0.55-1.02 [facility] Comment on above: Performed By: #### U ACSIND, UMICRO #### [facility] [address] [address] [address] Ashwin Key EGFR-AF ISRAELI >60 Normal >=60 [facility] Comment on above: Performed By: #### U ACSIND, UMICRO #### [facility] [address] [address] [address] Ashwin Key EGFR-NON AF ISRAELI 59 mL/min/1.73m2 Critically low >=60 [facility] Comment on above: Performed By: #### U ACSIND, UMICRO #### [facility] [address] [address] [address] Ashwin Key Glucose [Mass/Vol] 84 mg/dL Normal 74-106 [facility] Comment on above: Performed By: #### U ACSIND, UMICRO #### [facility] [address] [address] [address] Ashwin Key Potassium [Moles/Vol] 4.2 mmol/L Normal 3.5-5.1 [facility] Comment on above: Performed By: #### U FILOMENA UMICRO #### [facility] [address] [address] [address] Ashwin Key Sodium [Moles/Vol] 150 mmol/L Critically high 136-145 T [facility] Comment on above: Performed By: #### U FILOMENA UMICRO #### [facility] [address] [place] [address] Dr. Ashwin Key Urea nitrogen [Mass/Vol] 25.0 mg/dL Critically high 7.0-18.0 [facility] Comment on above: Performed By: #### U FILOMENA UMICRO #### [facility] [address] [place] [address] Dr. Ashwin Key Urea nitrogen/Creatinine [Mass ratio] 27.2 mg/mg Normal [facility] Comment on above: Performed By: #### U FILOMENA UMICRO #### [facility] [address] [place] [address] Dr. Ashwin Key TSHon 08-10-2022 TSH 3.430 uIU/mL Normal 0.358-3.740 [facility] Comment on above: Performed By: #### U FILOMENA UMICRO #### [facility] [address] [place] [address] Dr. Ashwin Key CULTURE URINEon 08-09-2022 CULTURE URINE Culture Observations : ANSON TO FOLLOW. Normal [facility] Comment on above: Performed By: #### U FILOMENA UMICRO #### [facility] [address] [place] [address] Dr. Ashwin Key UA (CLEAN/CATCH) UNDERWEAR FINISHER/MICRO I F IND.on 08-09-2022 Bilirubin Ql (U) Negative Normal NEGATIVE [facility] Comment on above: Performed By: #### U GURVINDER BUTTICRO #### [facility] [address] [place] [address] Dr. Ashwin Key Clarity (U) CLEAR Normal CLEAR [facility] Comment on above: Performed By: #### U FILOMENA UMICRO #### [facility] [address] [address] [address] Ashwin Key Color (U) LT. YELLOW Normal YELLOW [facility] Comment on above: Performed By: #### U ACSIND, UMICRO #### [facility] [address] [address] [address] Ashwin Key Glucose Ql (U) Negative Normal NEGATIVE [facility] Comment on above: Performed By: #### U ACSIND, UMICRO #### [facility] [address] [address] [address] Ashwin Key Hemoglobin Ql (U) TRACE-INTACT Abnormal NEGATIVE [facility] Comment on above: Performed By: #### U ACSIND, UMICRO #### [facility] [address] [place] [address] Dr. Ashwin Key Ketones Ql (U) Negative Normal NEGATIVE [facility] Comment on above: Performed By: #### U ACSIND, UMICRO #### [facility] [address] [place] [address] Dr. Ashwin Key LEUKOCYTES TRACE Abnormal NEGATIVE [facility] Comment on above: Performed By: #### U ACSIND, UMICRO #### [facility] [address] [place] [address] Dr. Ashwin Key Nitrite Ql (U) Negative Normal NEGATIVE [facility] Comment on above: Performed By: #### U ACSIND, UMICRO #### [facility] [address] [place] [address] Dr. Ashwin Key pH (U) 5.5 [pH] Normal 5-9 [facility] Comment on above: Performed By: #### U ACSIND, UMICRO #### [facility] [address] [place] [address] Dr. Ashwin Key SPEC GRAVITY <=1.005 Abnormal 1.005-<=1.02 5 [facility] Comment on above: Performed By: #### U ACSIND, UMICRO #### [facility] [address] [place] [address] Dr. Ashwin Key UA PROTEIN Negative Normal NEGATIVE/ TRACE [facility] Comment on above: Performed By: #### U ACSIND, UMICRO #### [facility] [address] [address] [address] Ashwin Key UR MICRO IND INDICATED Normal [facility] [facility] Comment on above: Performed By: #### U ACSIND, UMICRO #### [facility] [address] [address] [address] Ashwin Key Urobilinogen Qn (U) 0.2 {Mercedes'U}/dL Normal 0.2 - 1. 0 [facility] Comment on above: Performed By: #### U ACSIND, UMICRO #### [facility] [address] [address] [address] Ashwin Key URINE MICROSCOPIC ONLYon AMORPHOUS CRYSTALS FEW Normal [facility] Comment on above: Performed By: #### U ACSIND, UMICRO #### [facility] [address] [place] [address] Dr. Ashwin Key BACTERIA MODERATE Abnormal NONE SEEN [facility] Comment on above: Performed By: #### U ACSIND, UMICRO #### [facility] [address] [place] [address] Dr. Ashwin Key Bacteria identified Cx Nom (U) INDICATED Normal [facility] Comment on above: Performed By: #### U ACSIND, UMICRO #### [facility] [address] [place] [address] Dr. Ashwin Key CAST NONE SEEN Normal NONE SEEN [facility] Comment on above: Performed By: #### U ACSIND, UMICRO #### [facility] [address] [place] [address] Dr. Ashwin Key Crystals LM Nom (Urine sed) SEEN Abnormal NONE SEEN [facility] Comment on above: Performed By: #### U ACSIND, UMICRO #### [facility] [address] [address] [address] Ashwin Key Epithelial cells LM Ql (Urine sed) MANY Abnormal NONE SEEN /RARE [facility] Comment on above: Performed By: #### U ACSIND, UMICRO #### [facility] [address] [place] [address] Dr. Ashwin Key MUCOUS NONE SEEN Normal NONE SEEN [facility] Comment on above: Performed By: #### U JUAN F BUTT #### [facility] [address] [place] [address] Dr. Ashwin Key RBC 0-2 Normal 0-2 [facility] Comment on above: Performed By: #### U JOEY BUTTRO #### [facility] [address] [place] [address] Dr. Ashwin Key WBC 2-5 Abnormal NONE SEEN [facility] Comment on above: Performed By: #### U FILOMENA STACYRO #### [facility] [address] [place] [address] Dr. Ashwin Key CBC AUTO DIFFon 07-11-2022 BASO # 0.0 103/ul Normal 0.0-0.1 [facility] Comment on above: Performed By: #### C BC #### [facility] [address] [place] [address] Dr. Ashwin Key Basophils/100 WBC (Bld) 0.5 % Normal 0.2-2.0 [facility] Comment on above: Performed By: #### C BC #### [facility] [address] [place] [address] Dr. Ashwin Key EO # 0.0 103/ul Normal 0.0-0.7 [facility] Comment on above: Performed By: #### C BC #### [facility] [address] [place] [address] Dr. Ashwin Key Eosinophils/100 WBC (Bld) 0.0 % Critically low 0.9-7.0 [facility] Comment on above: Performed By: #### C BC #### [facility] [address] [place] [address] Dr. Ashwin Key Erythrocyte distribution width (RBC) [Ratio] 14.5 % Normal 11.0-15.0 [facility] Comment on above: Performed By: #### C BC #### [facility] [address] [place] [address] Dr. Ashwin Key Hematocrit (Bld) [Volume fraction] 42.5 % Normal 36.0-48.0 [facility] Comment on above: Performed By: #### C BC #### [facility] [address] [place] [address] Dr. Ashwin Key Hemoglobin (Bld) [Mass/Vol] 13.1 g/dL Normal 12.0-16.0 [facility] Comment on above: Performed By: #### C BC #### [facility] [address] [place] [address] Dr. Ashwin Key IG # 0.02 10e3/ul Normal 0.00-0.03 [facility] Comment on above: Performed By: #### C BC #### [facility] [address] [place] [address] Dr. Ashwin Key IG % 0.5 % Normal 0.0-0.5 [facility] Comment on above: Performed By: #### C BC #### [facility] [address] [place] [address] Dr. Ashwin Key LYMPH # 2.1 103/ul Normal 1.2-3.8 [facility] Comment on above: Performed By: #### C BC #### [facility] [address] [place] [address] Dr. Ashwin Key Lymphocytes/100 WBC (Bld) 48.2 % Normal 20.5-60.0 [facility] Comment on above: Performed By: #### C BC #### [facility] [address] [place] [address] Dr. Ashwin Key MANUAL DIFF REQ NO Normal [facility] Comment on above: Performed By: #### C BC #### [facility] [address] [place] [address] Dr. Ashwin Key MCH (RBC) [Entitic mass] 28.4 pg Normal 26.7-34.0 [facility] Comment on above: Performed By: #### C BC #### [facility] [address] [place] [address] Dr. Ashwin Key MCHC (RBC) [Mass/Vol] 30.8 g/dL Normal 29.9-35.2 [facility] Comment on above: Performed By: #### C BC #### [facility] [address] [address] [address] Ashwin Key MCV (RBC) [Entitic vol] 92.2 fL Normal 81.0-99.0 [facility] Comment on above: Performed By: #### C BC #### [facility] [address] [address] [address] Ashwin Key MONO # 0.4 103/ul Normal 0.3-0.8 [facility] Comment on above: Performed By: #### C BC #### [facility] [address] [place] [address] Dr. Ashwin Key Monocytes/100 WBC (Bld) 8.7 % Normal 1.7-12.0 [facility] Comment on above: Performed By: #### C BC #### [facility] [address] [place] [address] Dr. Ashwin Key NEUT # 1.8 103/ul Normal 1.4-6.5 [facility] Comment on above: Performed By: #### C BC #### [facility] [address] [place] [address] Dr. Ashwin Key Neutrophils/100 WBC (Bld) 42.1 % Critically low 43.0-75.0 [facility] Comment on above: Performed By: #### C BC #### [facility] [address] [place] [address] Dr. Ashwin Key Platelet mean volume (Bld) [Entitic vol] 10.4 fL Normal 9.5-13.5 [facility] Comment on above: Performed By: #### C BC #### [facility] [address] [place] [address] Dr. Ashwin Key PLT 159 103/ul Normal 150-450 [facility] Comment on above: Performed By: #### C BC #### [facility] [address] [place] [address] Dr. Ashwin Key RBC 4.61 106/ul Normal 4.20-5.40 [facility] Comment on above: Performed By: #### C BC #### [facility] [address] [address] [address] Ashwin Key WBC 4.3 103/ul Normal 4.0-11.0 [facility] Comment on above: Performed By: #### C BC #### [facility] [address] [address] [address] Ashwin Key PROF CHEM 8 (BAS METB)on Anion gap [Moles/Vol] 10.2 mmol/L Normal [facility] Comment on above: Performed By: #### B MP #### [facility] [address] [address] [address] Ashwin Key Calcium [Mass/Vol] 8.5 mg/dL Normal 8.5-10.1 [facility] Comment on above: Performed By: #### B MP #### [facility] [address] [address] [address] Ashwin Key Chloride [Moles/Vol] 104 mmol/L Normal 98-107 [facility] Comment on above: Performed By: #### B MP #### [facility] [address] [address] [address] Ashwin Key CO2 [Moles/Vol] 32.6 mmol/L Critically high 21.0-32.0 [facility] Comment on above: Performed By: #### B MP #### [facility] [address] [address] [address] Ashwin Key Creatinine [Mass/Vol] 0.91 mg/dL Normal 0.55-1.02 [facility] Comment on above: Performed By: #### B MP #### [facility] [address] [address] [address] Ashwin Key EGFR-AF ISRAELI >60 Normal >=60 [facility] Comment on above: Performed By: #### B MP #### [facility] [address] [address] [address] Ashwin Key EGFR-NON AF ISRAELI =60 Normal >=60 [facility] Comment on above: Performed By: #### B MP #### [facility] [address] [address] [address] Ashwin Key Glucose [Mass/Vol] 89 mg/dL Normal 74-106 [facility] Comment on above: Performed By: #### B MP #### [facility] [address] [address] [address] Ashwin Key Potassium [Moles/Vol] 3.8 mmol/L Normal 3.5-5.1 [facility] Comment on above: Performed By: #### B MP #### [facility] [address] [address] [address] Ashwin Key Sodium [Moles/Vol] 143 mmol/L Normal 136-145 [facility] Comment on above: Performed By: #### B MP #### [facility] [address] [address] [address] Ashwin Key Urea nitrogen [Mass/Vol] 26.0 mg/dL Critically high 7.0-18.0 [facility] Comment on above: Performed By: #### B MP #### [facility] [address] [address] [address] Ashwin Key Urea nitrogen/Creatinine [Mass ratio] 28.6 mg/mg Normal [facility] Comment on above: Performed By: #### B MP #### [facility] [address] [address] [address] Ashwin Key CULTURE URINEon 02-11-2022 CULTURE [...] F Trimethoprim/Sulfameth oxazole <=20 S F Normal [facility] Comment on above: Performed By: #### U ACSIND, UMICRO #### [facility] [address] [address] [address] Ashwin Key CBC AUTO DIFFon 02-07-2022 BASO # 0.0 103/ul Normal 0.0-0.1 [facility] Comment on above: Performed By: #### C BC #### [facility] [address] [address] [address] Ashwin Key Basophils/100 WBC (Bld) 0.5 % Normal 0.2-2.0 [facility] Comment on above: Performed By: #### C BC #### [facility] [address] [address] [address] Ashwin Key EO # 0.0 103/ul Normal 0.0-0.7 [facility] Comment on above: Performed By: #### C BC #### [facility] [address] [place] [address] Dr. Ashwin Key Eosinophils/100 WBC (Bld) 0.0 % Critically low 0.9-7.0 [facility] Comment on above: Performed By: #### C BC #### [facility] [address] [place] [address] Dr. Ashwin Key Erythrocyte distribution width (RBC) [Ratio] 13.4 % Normal 11.0-15.0 [facility] Comment on above: Performed By: #### C BC #### [facility] [address] [place] [address] Dr. Ashwin Key Hematocrit (Bld) [Volume fraction] 46.8 % Normal 36.0-48.0 [facility] Comment on above: Performed By: #### C BC #### [facility] [address] [place] [address] Dr. Ashwin Key Hemoglobin (Bld) [Mass/Vol] 14.2 g/dL Normal 12.0-16.0 [facility] Comment on above: Performed By: #### C BC #### [facility] [address] [place] [address] Dr. Ashwin Key IG # 0.05 10e3/ul Critically high 0.00-0.03 [facility] Comment on above: Performed By: #### C BC #### [facility] [address] [place] [address] Dr. Ashwin Key IG % 0.6 % Critically high 0.0-0.5 [facility] Comment on above: Performed By: #### C BC #### [facility] [address] [place] [address] Dr. Ashwin Key LYMPH # 2.0 103/ul Normal 1.2-3.8 [facility] Comment on above: Performed By: #### C BC #### [facility] [address] [place] [address] Dr. Ashwin Key Lymphocytes/100 WBC (Bld) 22.9 % Normal 20.5-60.0 [facility] Comment on above: Performed By: #### C BC #### [facility] [address] [place] [address] Dr. Ashwin Key MANUAL DIFF REQ NO Normal [facility] Comment on above: Performed By: #### C BC #### [facility] [address] [place] [address] Dr. Ashwin Key MCH (RBC) [Entitic mass] 29.1 pg Normal 26.7-34.0 [facility] Comment on above: Performed By: #### C BC #### [facility] [address] [place] [address] Dr. Ashwin Key MCHC (RBC) [Mass/Vol] 30.3 g/dL Normal 29.9-35.2 [facility] Comment on above: Performed By: #### C BC #### [facility] [address] [place] [address] Dr. Ashwin Key MCV (RBC) [Entitic vol] 95.9 fL Normal 81.0-99.0 [facility] Comment on above: Performed By: #### C BC #### [facility] [address] [place] [address] Dr. Ashwin Key MONO # 0.9 103/ul Critically high 0.3-0.8 [facility] Comment on above: Performed By: #### C BC #### [facility] [address] [address] [address] Ashwin Key Monocytes/100 WBC (Bld) 10.9 % Normal 1.7-12.0 [facility] Comment on above: Performed By: #### C BC #### [facility] [address] [address] [address] Ashwin Key NEUT # 5.6 103/ul Normal 1.4-6.5 [facility] Comment on above: Performed By: #### C BC #### [facility] [address] [place] [address] Dr. Ashwin Key Neutrophils/100 WBC (Bld) 65.1 % Normal 43.0-75.0 [facility] Comment on above: Performed By: #### C BC #### [facility] [address] [place] [address] Dr. Ashwin Key Platelet mean volume (Bld) [Entitic vol] 10.6 fL Normal 9.5-13.5 [facility] Comment on above: Performed By: #### C BC #### [facility] [address] [place] [address] Dr. Ashwin Key PLT 203 103/ul Normal 150-450 [facility] Comment on above: Performed By: #### C BC #### [facility] [address] [place] [address] Dr. Ashwin Key RBC 4.88 106/ul Normal 4.20-5.40 [facility] Comment on above: Performed By: #### C BC #### [facility] [address] [place] [address] Dr. Ashwin Key WBC 8.6 103/ul Normal 4.0-11.0 [facility] Comment on above: Performed By: #### C BC #### [facility] [address] [place] [address] Dr. Ashwin Key PROF 14(COMP METB)on 022 Albumin [Mass/Vol] 3.6 g/dL Normal 3.4-5.0 [facility] Comment on above: Performed By: #### U ACSIND, UMICRO #### [facility] [address] [address] [address] Ashwin Key Albumin/Globulin [Mass ratio] 1.2 {ratio} Normal [facility] Comment on above: Performed By: #### U ACSIND, UMICRO #### [facility] [address] [address] [address] Ashwin Key ALP [Catalytic activity/Vol] 128 U/L Critically high 46-116 [facility] Comment on above: Performed By: #### U ACSIND, UMICRO #### [facility] [address] [address] [address] Ashwin Key ALT [Catalytic activity/Vol] 20 U/L Normal 14-59 [facility] Comment on above: Performed By: #### U ACSIND, UMICRO #### [facility] [address] [address] [address] Ashwin Key Anion gap [Moles/Vol] 12.0 mmol/L Normal [facility] Comment on above: Performed By: #### U ACSIND, UMICRO #### [facility] [address] [address] [address] Ashwin Key AST [Catalytic activity/Vol] 18 U/L Normal 15-37 [facility] Comment on above: Performed By: #### U ACSIND, UMICRO #### [facility] [address] [address] [address] Ashwin Key Bilirubin [Mass/Vol] 0.8 mg/dL Normal 0.2-1.0 [facility] Comment on above: Performed By: #### U ACSIND, UMICRO #### [facility] [address] [address] [address] Ashwin Key Calcium [Mass/Vol] 8.1 mg/dL Critically low 8.5-10.1 [facility] Comment on above: Performed By: #### U ACSIND, UMICRO #### [facility] [address] [address] [address] Ashwin Key Chloride [Moles/Vol] 99 mmol/L Normal 98-107 [facility] Comment on above: Performed By: #### U ACSJAZMIN UMICRO #### [facility] [address] [address] [address] Ashwin Key CO2 [Moles/Vol] 33.7 mmol/L Critically high 21.0-32.0 [facility] Comment on above: Performed By: #### U ACSJAZMIN UMICRO #### [facility] [address] [address] [address] Ashwin Key Creatinine [Mass/Vol] 1.07 mg/dL Critically high 0.55-1.02 [facility] Comment on above: Performed By: #### U ACSJAZMIN UMICRO #### [facility] [address] [place] [address] Dr. Ashwin Key EGFR-AF ISRAELI 60 mL/min/1.73m2 Normal >=60 [facility] Comment on above: Performed By: #### U ACSJAZMIN UMICRO #### [facility] [address] [place] [address] Dr. Ashwin Key EGFR-NON AF ISRAELI 50 mL/min/1.73m2 Critically low >=60 [facility] Comment on above: Performed By: #### U ACSJAZMIN UMICRO #### [facility] [address] [place] [address] Dr. Ashwin Key Globulin (S) [Mass/Vol] 3.0 g/dL Normal [facility] Comment on above: Performed By: #### U ACSJAZMIN UMICRO #### [facility] [address] [place] [address] Dr. Ashwin Key Glucose [Mass/Vol] 76 mg/dL Normal 74-106 [facility] Comment on above: Performed By: #### U ACSJAZMIN UMICRO #### [facility] [address] [place] [address] Dr. Ashwin Key Potassium [Moles/Vol] 4.7 mmol/L Normal 3.5-5.1 [facility] Comment on above: Performed By: #### U ACSJAZMIN UMICRO #### [facility] [address] [address] [address] Ashwin Key Protein [Mass/Vol] 6.6 g/dL Normal 6.4-8.2 [facility] Comment on above: Performed By: #### U ACSIND, UMICRO #### [facility] [address] [address] [address] Ashwin Key Sodium [Moles/Vol] 140 mmol/L Normal 136-145 [facility] Comment on above: Performed By: #### U ACSJAZMIN, ICRO #### [facility] [address] [address] [address] Ashwin Key Urea nitrogen [Mass/Vol] 31.0 mg/dL Critically high 7.0-18.0 [facility] Comment on above: Performed By: #### U ACSJAZMIN ICRO #### [facility] [address] [address] [address] Ashwin Key Urea nitrogen/Creatinine [Mass ratio] 29.0 mg/mg Normal [facility] Comment on above: Performed By: #### U [facility]ZMIN [facility] #### [facility] [address] [address] [address] Ashwin Key UA RANDOMon 02-07-2022 Bilirubin Ql (U) Negative Normal NEGATIVE [facility] Comment on above: Performed By: #### U A #### [facility] [address] [address] [address] Ashwin Key Clarity (U) CLEAR Normal CLEAR [facility] Comment on above: Performed By: #### U A #### [facility] [address] [address] [address] Ashwin Key Color (U) LT. YELLOW Normal YELLOW [facility] Comment on above: Performed By: #### U A #### [facility] [address] [place] [address] Dr. Ashwin Key Glucose Ql (U) Negative Normal NEGATIVE [facility] Comment on above: Performed By: #### U A #### [facility] [address] [place] [address] Dr. Ashwin Key Hemoglobin Ql (U) Negative Normal NEGATIVE [facility] Comment on above: Performed By: #### U A #### [facility] [address] [place] [address] Dr. Ashwin Key Ketones Ql (U) TRACE Abnormal NEGATIVE [facility] Comment on above: Performed By: #### U A #### [facility] [address] [place] [address] Dr. Ashwin Key LEUKOCYTES SMALL Abnormal NEGATIVE [facility] Comment on above: Performed By: #### U A #### [facility] [address] [place] [address] Dr. Ashwin Key Nitrite Ql (U) Positive Abnormal NEGATIVE [facility] Comment on above: Performed By: #### U A #### [facility] [address] [place] [address] Dr. Ashwin Key pH (U) 6.0 [pH] Normal 5-9 [facility] Comment on above: Performed By: #### U A #### [facility] [address] [place] [address] Dr. Ashwin Key SPEC GRAVITY 1.020 Normal 1.005-<=1.02 5 [facility] Comment on above: Performed By: #### U A #### [facility] [address] [place] [address] Dr. Ashwin Key UA PROTEIN Negative Normal NEGATIVE/ TRACE [facility] Comment on above: Performed By: #### U A #### [facility] [address] [place] [address] Dr. Ashwin Key Urobilinogen Qn (U) 1.0 {Mercedes'U}/dL Normal 0.2 - 1. 0 [facility] Comment on above: Performed By: #### U A #### [facility] [address] [place] [address] Dr. Ashwin Key K (Potassium)on 01-30-2017 Potassium molar conc 4.2 mmol/L Normal 3.7-5.3 [facility] Comment on above: Result Comment: Perf ormed at [facility] [address] [place] [address] [place] [id number] Performed By: #### K ####Radha Kirkpatrick [address] [place] [address] Encounters Encounter Date Encounter Type Care Provider Facility Start: 11-20-2023 Evaluation and management of inpatient [facility] Start: [facility]-15[facility]23 [facility] Start: 11-15[facility]23 [facility] Start: 11-15-2023 Evaluation and management of inpatient [facility] Start: 11-14-2023 [facility] Start: 11-14-2023 Evaluation and management of inpatient YUE BRODY [facility] Start: 11-13-2023 Evaluation and management of inpatient FRAN LANDRY [facility] Start: 11-13-2023 End: 11-22-2023 Evaluation and management of inpatient REGLA SALAZAR [facility] Start: 08-22-2022 End: 08-22-[address] [...] BEE Payers Date Payer Category Payer Medicare [id number] 2016 Medicare [id number] 1960 Medicaid [id number] 1960 Medicare [id number] 1945 Unknown [id number] 2.16.84 [id number] 1945 Unknown [id number] 2.16.84 [id number] 1945 Unknown [id number] 2.16.84 [id number] 1945 Unknown [id number] 2.16.84 [id number] 1945 Unknown [id number] 2.16.84 [id number] Clinical Notes 11-14-2023 to 11-22-2023 Note Date & Type Note Facility 11-22-2023 Note Pt ready for dischar and [facility] ready to accept back. Arranged 3pm BLS transport via [facility]. Sent final AVS via [facility] and direct fax. Assembled transfer packet and placed by chart. Notified RN, pt at bedside, and left voicemail for legal guardian Song Rowland. [facility] 11-21-2023 Note Occupational Therapy Check no [...] Charge Time attempted: 1550 Ivan OTR/L, MOT [facility] 11-21-[address] [facility] and advised of possible discharge today. [facility] 11-20-2023 Note Pharmacy Documentati on of [...] Andrew Rx number of order for reference: [id number] Pharmacy will sign off at this time. Please call with any additional questions or concerns. Thank you for the consult. MANDO CARDOZA, PharmD, BCCCP 11/20/2023 [facility] 11-20-2023 Note Occupational Therapy OT Check no charge Name: Celia Menon Date of : 1945 Today's Date: 11/20/23 Pt is unable to be seen for therapy at this time secondary to Medically unstable. Pt s current Hbg is 5.6, will be getting blood transfusion. Will check back and complete therapy session as appropriate. Check No Charge Time attempted: 1520 Ivan OTR/L, [facility] 11-20-2023 Note Physical Therapy Name: Celia Menon Date of : 1945 Today's Date: 11/20/23 Pt is unable to be seen for therapy at this time secondary to Medically unstable. Pt with Hgb of 5.6 this AM. Receiving blood transfusion. PT eval held- will check back and complete therapy session as appropriate. Check No Charge Time attempted: 1357 Tatianna Nuno PT, MPT [facility] 11-20-2023 Note [facility] ARE [...] get back to her LTC facility in [place]. Reviewed Hospice as an alternative to continued aggressive care. He is not interested in this at this time and feels the pt wouldn't be either. We will continue to support and follow as needed. [facility] 11-19-2023 Note Occupational Therapy OT Check [...] Charge Time attempted: 1005- 1012 ELSAarnie OTR/L, [facility] 11-19-2023 Note Subjective Patient seen on [...] on results, prior to discharge back to [facility]. Patient and POA confirmed patient is not [...] Tylenol, Oxycodone, Mo (more content not included)... [facility] 11-19-2023 Note Physical Therapy Name: Celia [...] Charge Time attempted: 1321 Tatianna Nuno PT, [facility] 11-18-2023 Note Subjective Patient seen on [...] Planning to return to SNF at discharge. [facility] 11-18-2023 Note Date: 11/18/2023 Surgery: 11/14/2023 [...] Nunn MD Orthopaedic Surgery, Resident Ortho Pager [phone] 11/18/23 7:40 AM May contact the on-call resident with any concerns via the Orthopaedic pager at any time. I am available via Sensitive Object 6a-6p. May contact the on-call resident with any concerns via the Orthopaedic pager at any time. [facility] 11-17-2023 Note Occupational Therapy OT Check no charge Name: Celia Menon Date of : 1945 Today's Date: 11/17/23 Pt is unable to be seen for therapy at this time secondary to Medically unstable, RN hold. Will check back and complete therapy session as appropriate. Check No Charge Time attempted: 1516 Ivan OTR/L, MOT [facility] 11-17-2023 Note Physical Therapy Name: Celia Menon Date of : 1945 Today's Date: 11/17/23 Pt is unable to be seen for therapy at this time secondary to Medically unstable. Will check back and complete therapy session as appropriate. Check No Charge Time attempted: 1020 Tatianna Nuno PT, [facility] 11-17-[address] [facility]. Unclear at this point if pt will need pre-cert to return. UPDATE 10:40AM- Advised by [facility] pt is a bed hold and no pre-cert is necessary. [facility] 07-05-2024 Note Subjective Pt transferred from [...] kg (300 lb 14.9 oz) (11/16 438) [place] Coma Scale Score: 14 No intake or [...] Other: DNRcc Dispo: Planning SNF at discharge. [facility] 11-17-2023 Note Date: 11/16/2023 Surgery: 11/14/2023 [...] Robledo MD Orthopaedic Surgery, Resident Ortho Pager [phone] 11/16/23 8:52 AM May contact the on-call resident with any concerns via the Orthopaedic pager at any time. I am available via Sensitive Object 6a-6p. May contact the on-call resident with any concerns via the Orthopaedic pager at any time. [facility] 11-16-2023 Note Problem: Communicati on Thought [...] will demonstrate adequate sleep/rest pattern Outcome: Progressing [facility] 11-16-2023 Note ------ Attestation signed by [...] Robledo MD Orthopaedic Surgery, Resident Ortho Pager [phone] 11/16/23 8:52 AM May contact the on-call resident with any concerns via the Orthopaedic pager at any time. I am available via Sensitive Object 6a-6p. May contact the on-call resident with any concerns via the Orthopaedic pager at any time. [facility] 11-15-2023 Note ------ Attestation signed by [...] Derrick Rahman, Orthopedic Surgery, PGY2 Ortho Pager [phone] 11/15/23 4:00 PM I am available via Sensitive Object 6a-6p. May contact the on-call resident with any concerns via the Orthopaedic pager at any time. [facility] 11-15-2023 Note Adult Nutrition Asse ssment: [...] OA (osteoarthritis) Obesity PVD (peripheral vascular disease) ([facility]) Renal failure Sick sinus syndrome ([facility]) Tinea unguium Current Medications: lidocaine (cardiac), [...] (Calculated): 44.29 Wt change: 114.8 kg (11/13/23) [facility] transfer record. UBW 250s to 260s per SNF staff. IBW: 59 kg Nutrition Assessment: Nutrition history: physically unable to obtain history Per [facility] staff, regular diet, appetite wnl, will order mail delivery supervisor on occasion, fed self. No use of ONS. No nutrition related concerns expressed. Dietary Orders (From admission, onward) Start Ordered 11/15/23 0310 Diet NPO Diet effective now Comments: Sips with medications Question: Reason for NPO: Answer: Nausea/Vomiting 11/15/23 0309 Nutrition Risk: Moderate Nutrition Needs: Needs based on: ideal body weight Calorie needs: 3316-6544 kcals/day based on Equation: 25-30 kcal/kg Protein needs: 70-82 g/day based on 1.2-1.4 g/kg Fluid needs: 1500 ml/day Nutrition Diagnosis: Suboptimal inake related to treatments & interventions as evidenced by surgery & postop vasopressor support. Malnutrition Assessment: Patient at risk for malnutrition according to hospital criteria, but does not meet the clinical characteristics per the Academy of Nutrition and Dietetics, and the [place] Society of Enteral and Parenteral Nutrition to support the diagnosis of malnutrition. Treatment Plan: Monitor NPO status AAT 2g Na when hemodynamically stable Vit D3 supplementation when able to take PO meds, 1250 mcg once/week [employer] DES[employer] Goals: Nutrition Goals: maintain visceral protein Contact the dietitian via Utan chat 8A-4P Monday through Monday or call extension [phone]. For s & holidays, the dietitian can be reached via pager [phone] from 9A-3P. Unable to respond to Sensitive Object messages on Monday & . [facility] 11-15-2023 Note Pharmacy Dosing Serv ice - Vancomycin Initial Consult Note Pharmacy has been consulted for the dosing and evaluation of Drug: Vancomycin Indication: bacteremia AUC 400-600 mg*hr/L and trough 10-20 mcg/mL Labs and Renal Function Total body weight: 124 kg (274 lb 4 oz) [place] body weight: 59.3 kg (130 lb 11.7 [...] Plan: -Start vancomycin 2000 mg once and gbrv-dn-ngolbr due to advanced age and high BMI -Plan to check serum peak and trough levels after first dose -Check BUN/SCr daily -Pharmacy will follow up daily on culture and sensitivity results and renal function -Please do not hesitate to contact us with comments or questions Thank you, Santiago Marcelo, PharmD, 11/15/23 [facility] 11-15-2023 Note 1013 communication received that Legal Guardian has not been able to be reached to make medical care decisions; clinical documentation is indicating that Patient has a notable change in condition from last known baseline and Legal Guardian is needed to make decisions for Patient at this time ([phone]) PC to Legal Guardian Song Rowland; line immediately went to voicemail; vm left with message to urgently return call ([phone]) PC to [facility] to enquire if they have additional/different contact information for Patient's Legal Guardian; Bernadette answered, Song Rowland Jr is emergency contact and cell phone number is [phone] and work phone number is [phone] ([phone]) PC to Legal Guardian Song Rowland; corporate receptionist stating they have been trying to get ahold of Legal Guardian with no success; corporate receptionist stating they have [employer] Record noted as Michael Wilson; corporate receptionist transferred video game script writer to Michael Wilson; video game script writer asked Michael to arrange for communication [...] he is traveling to a different state; video game script writer stating Legal Guardian is needed to talk with physician about Patient's current medical status and to make decisions about medical care today; Legal Guardian stating he can be called at [phone], video game script writer stating that number has been called multiple times (including this morning) and calls are not being answered; Legal Guardian stating his 's phone number is [phone] notice of Legal Guardian's 's phone number shared to medical team, for physician to get care decisions from Legal Guardian [facility] 11-15-2023 Note Cardiology Progress Note REASON [...] femur fracture [facility] [place] [facility] Cardiology was consulted for pre-op clearance. Patient [...] g in 100 (more content not included)... [facility] 11-15-2023 Note Patient: Celia Menon Procedure Summary Date: 11/14/23 Room / Location: [facility] OPERATING ROOM 02 / [facility] Operating Room Anesthesia Start: 1851 Anesthesia [...] per anesthesia protocol. No notable events documented. [facility] 11-14-2023 Note Airway Date/Time: 11/14/2023 6:59 PM Urgency: elective General Information and Staff Patient location during procedure: OR Anesthesiologist: Song Mena MD Resident/COIL CONNECTOR REPAIRER/CAA: Selvin Wiggins MD Performed: resident/COIL CONNECTOR REPAIRER/CAA Indications and Patient Condition Indications for airway [...] 1 Number of other approaches attempted: 0 [facility] 11-14-2023 Note Arterial Line: Date/Time: 11/14/2023 [...] procedure well with no complications. Staffing Performed: resident/COIL CONNECTOR REPAIRER/CAA Anesthesiologist: Song Mena MD Resident/COIL CONNECTOR REPAIRER: Khurram Romano MD Performed by: Selvin Wiggins MD Authorized by: Song Mena MD [facility] 11-14-2023 Note Patient: Celia Menon Procedure Information Date/Time: 11/14/23 1900 Procedures: ORIF, FRACTURE, FEMUR (Left: Thigh - Leg Upper) - PPFX System with distal plate attachment; intramedullary fibular strut.Request to follow second case CLOSED REDUCTION, FRACTURE, FEMUR (Left: Thigh - Leg Upper) Location: [facility] OPERATING ROOM 02 / [facility] Operating Room Surgeons: Aric Smith MD [...] teeth; quit smoking many years ago; denies NM, CAD, DM; has atrial fibrillation, last took Eliquis yesterday (11/13/23). Chart says pt. Has dementia, but she was oriented, answered questions clearly. Encounter Date: 11/13/23 ECG 12 lead Result Value Ventricular Rate 108 QRS DURATION 88 QT Interval 336 QTC CALCULATION(BAZETT) 450 R-[place] 35 T Wave [place] 62 Impression Atrial fibrillation with rapid ventricular response Nonspecific ST and T wave abnormality Abnormal ECG No previous ECGs available Confirmed by Adam EMERY, ERMA Martinez ([id number]) on 11/14/2023 10:39:31 AM Complete Echo (TTE) w/wo Imaging Agent, Strain, 3D, Bubble Study Result Date: 11/14/2023 1 1 [facility] Heart Station [address] [place] [address] [phone] (fax) Echocardiogram-[facility] Name: CELIA MENON Study Date: 11/14/2023 09:04 AM B/P: 115 mmHg/65 mmHg HR: 100 bpm Date of : 1945 Location: [facility] Height: 66 in. Age: 78 year(s) Patient Room: 9856 Weight: 253 lb. Gender: Female Patient Status: [...] function is d (more content not included)... [facility] 11-14-2023 Note EDISON rec'd request thi s am to assist in locating LG for patient for consent for surgery. Patient Legal Guardian listed is Song Rowland. He is an workers compensation attorney out of [facility]. Per the Legal office he has retired but he is still maintaining his Guardianship svs. EDISON called and left multiple messages 1 this am and 1 this afternoon. EDISON called [facility] patient was from. They did not have any additional numbers for contact. LG cell is [phone]. EDISON called [employer] court and verified if they had any other options to reach LG or suggestions. They did not have any other contacts. They suggested if he did not response in a timely fashion and we had continued concerns we could fax a motion to the court with concerns. Fax: [phone]. EDISON notified medical team of above. They determined they would proceed with out consent after having 2 attendings agree that importance of proceeding rima for surgery. At 3:45pm EDISON rec'd phone call from . He stated he is having issues with his cell phone. He is working to get it repaired and he had just rec'd messages. He confirmed patient will return to [facility] once medically ready. He confirmed their house doctor follows for primary care. Edison transferred call to Dr Robledo as requested for consents to be discussed. Sw to send referral to [facility] and follow until medically ready for dc. [facility] 11-14-2023 Note Occupational Therapy OT Check no charge Name: Celia Menon Date of : 1945 Today's Date: 11/14/23 Pt is unable to be seen for therapy at this time secondary to Surgery. Will check back and complete therapy session as appropriate. Check No Charge Time attempted: 1011 [facility] 11-14-2023 Note Physical Therapy Name: Celia Menon Date of : 1945 Today's Date: 11/14/23 Pt is unable to be seen for therapy at this time secondary to Surgery pending for fixation of fracture. Will check back and complete therapy session as appropriate. Check No Charge Time attempted: 0830 Tatianna Nuno PT, MPT [facility] 11-14-2023 Note ------ Attestation signed by [...] Rahman DO Orthopedic Surgery, PGY1 Ortho Pager [phone] 11/14/23 8:26 AM I am available via Sensitive Object 6a-6p. May contact the on-call resident with any concerns via the Orthopaedic pager at any time. [facility] 11-14-2023 Note Subjective Pt came in [...] Interval 336 ms QTC CALCULATION(BAZETT) 450 ms R-[place] 35 degrees T Wave [place] 62 degrees POCT glucose meter Collection Time: [...] Immature Granulocytes Absolute (more content not included)... [facility] Summary Purpose Family History No Family [...] DATE CREATED AUTHOR AUTHOR'S ORGANIZ ATION 11/27/2023 [facility] FOR RECORDS PERTAINING TO PATIENTS WHO ARE [...] BE BASED ON THE PRIMARY CLINICAL RECORDS. [facility]. provides no warranty or guarantee of the accuracy or completeness of information in this document.
--- NOTE | 2023-12-04 07:53 | PC.NURSE ---
L femur fx 11/13/23 -- sent to [facility] for fracture repair. BCC reports possible infection of post surgical wound. wound is red with some purulent/bloody drainage. Pedal pulse present. L arm bruised and swollen. pulse present there too
--- NOTE | 2023-12-04 07:59 | XR_ITS ---
The [address] [address] Patient Name: FRANSISCO MENON MRN: [id number] date: 1945 Sex: F Assigned Patient Location: ER Current Patient Location: ER Accession/Order Number: [id number] Exam Date: 12/04/2023 08:55 Report Date: 12/04/2023 09:43 At the request of: DARLENE MOORE Procedure: XR chest 1V EXAMINATION: XR chest 1V HISTORY: left leg infection COMPARISON: XR chest 11/28/2023 FINDINGS: LUNGS: Moderate opacities within medial right lung base. Suspect increased opacity in the left retrocardiac region and lingula. VASCULATURE: No increased pulmonary vasculature. PLEURA: No pneumothorax, effusion, or pleural thickening. CARDIAC: Borderline cardiomegaly. MEDIASTINUM: Prior sternotomy. No abnormal widening. BONES: No fracture or visible bone lesion. OTHER: Negative. XR/XR chest 1V IMPRESSION: 1. Examination is slightly limited by patient body habitus and AP portable technique. 2. Underexpanded lungs with moderate bibasilar atelectasis versus infiltrates; not significantly changed. Electronically authenticated by: JAYNE SAEZ Date: 12/04/2023 09:43
--- NOTE | 2023-12-04 07:59 | CT_ITS ---
The [address] [address] Patient Name: FRANSISCO MENON MRN: [id number] date: 1945 Sex: F Assigned Patient Location: ER Current Patient Location: ED.MAIN Accession/Order Number: [id number] Exam Date: 12/04/2023 08:55 Report Date: 12/04/2023 11:29 At the request of: DARLENE MOORE Procedure: CT femur LT w con EXAMINATION: CT femur LT w con HISTORY: rule out left leg infection COMPARISON: 11/13/2023 plain x-ray TECHNIQUE: Multi-planar CT images were created without IV contrast. Dose reduction techniques were achieved by using automated exposure control and/or adjustment of mA and/or kV according to patient size and/or use of iterative reconstruction technique. FINDINGS: BONES: Interval reduction in a complex fracture involving the mid to distal diaphysis of the femur fixed with internal fixation utilizing a long lateral plate and screws extending from just below the lesser trochanter to the femoral condyles. Total hip arthroplasty and total knee arthroplasty. No new fracture, dislocation or mechanical failure SOFT TISSUES: Posterior lateral thigh skin izabela. Subcutaneous emphysema with some small areas of fluid along the lateral thigh deep to the skin izabela EFFUSION: None visible. OTHER: Negative. CT/CT femur LT w con IMPRESSION: Posttraumatic and postsurgical changes of the left femur detailed above Subcutaneous air and fluid deep to posterior lateral skin izabela likely represents postsurgical change. Infection is not excluded. No large fluid collection to suggest an abscess Electronically authenticated by: AMBERLY SOLOMON Date: 12/04/2023 11:29
--- NOTE | 2023-12-04 07:59 | ECG_ITS ---
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
--- NOTE | 2023-12-04 08:11 | ED_ITS ---
HPI HPI - General Adult General Chief complaint: Skin/Abscess/Foreign Body Stated complaint: GENERALIZED WEAKNESS Time Seen by Provider: 12/04/23 07:48 Source: medical record Mode of arrival: ambulance Limitations: physical limitation History of Present Illness HPI narrative: . Patient is a 78-year-old female who is presenting to the ER today with chief complaint of left lower extremity possible infection. Patient has bruising to bilateral upper extremities, significant to the left upper extremity compared to the right. Patient has had a left femur fracture. Patient did have surgery up at [facility]. Patient is currently staying at the [facility]. Patient is a DNR CC. Patient has had a displaced fracture of the lateral condyle of the left femur and also has had periprosthetic fracture around other internal prosthetic joint, morbid obesity. Patient was sent to the ER today secondary to concerns for infection to the left leg status post surgery. I do not have any records when surgery was, or any records of when the last doctor/nurse practitioner physical exam notes have been, we are calling for those. I am not sure who the [facility] surgeon was that did her left femur surgery. Patient has a past medical history of major depression, psychosis, morbid obesity, dementia, CHF, anemia, hypertension, A-fib, GERD, rotator cuff tears to left shoulder Patient had lab work that was drawn on November 30, patient's BUN was 30, calcium was 7.3, patient's CBC showed normal white count, hemoglobin 8.3, hematocrit 28. Patient does have an order for anticoagulant monitoring, patient is receiving Lovenox administration subcutaneous once a day, patient is getting oxycodone for chronic pain syndrome All systems are negative except as noted/marked. All systems reviewed and otherwise negative. Nurses note and vital signs reviewed and patient is not hypoxic. General: The patient appears well and in no apparent distress. Patient is resting comfortably on cart. Patient is not toxic, lethargic, or listless Skin: Warm, dry, no pallor noted. There is no rash noted. No petechiae, purpura. Patient has significant ecchymosis noted circumferentially to her left upper extremity down into her elbow, patient says this is from her recent fall. Patient also has some mild ecchymosis noted to the right upper extremity. No active signs of bleeding, no palpable hematomas to the soft tissue to upper extremities, but ecchymosis is noted to bilateral upper extremities. Patient has izabela to her left lateral thigh, the wound does appear to be dehiscing, there is some dried yellow discharge noted inside the wound where the wound is attempting to separate, all izabela are intact however, no active bleeding. No significant ecchymosis noted around the left lateral thigh. No localized signs of cellulitis or palpable hematomas. Patient does have some wound dressings to the posterior aspect of the left upper extremity. There are areas to the left posterior thigh. Patient has an area of necrosis to the left posterior thigh, approximately 10 x 6 cm, no active bleeding, no drainage from the necrotic skin superficially. Head: Normocephalic, atraumatic Eye: Normal conjunctiva, no drainage, EOMI. PERRL Ears, Nose, Mouth, and Throat: oral mucosa is moist. Nares patent. Mouth without vesicles. Cardiovascular: Regular Rate and Rhythm, no murmur, gallop, rub Respiratory: Patient is in no distress, no accessory muscle use, lungs are clear to auscultation, no wheezing, rales or rhonchi Back: non-tender, no CVA tenderness bilaterally to percussion. No CT LS midline pain GI: Morbidly obese, soft, no tubes noted, no tenderness to palpation, no masses appreciated. No rebound, guarding, or rigidity noted. No distention Musculoskeletal: Patient has no motor, sensory, or focal neurological deficits. See skin assessment to the left thigh, patient has moderate to severe pain with minimal range of motion with internal/external rotation of left hip, with 10 to 15 degrees flexion of the left knee, patient has heel protectors on her bilateral lower feet and ankles, no open sores noted to her heels, feet. Neurological: A&O x3, aware that it summer , normal speech able to answer questions appropriately. Psychiatric: Cooperative Related Data Home Medications ?Medication ?Instructions ?Recorded ?Confirmed acetaminophen 500 mg capsule 1,000 mg PO Q6H 11/13/23 11/27/23 ammonium lactate 12 % lotion 1 applic topical BID PRN dry skin 11/13/23 11/27/23 aspirin 81 mg chewable tablet 81 mg PO DAILY 11/13/23 11/27/23 atorvastatin 40 mg tablet 40 mg PO QPM 11/13/23 11/27/23 baclofen 20 mg tablet 20 mg PO QPM 11/13/23 11/27/23 cholecalciferol (vitamin D3) 1,250 1,250 mcg PO QWEEK 11/13/23 11/27/23 mcg (50,000 unit) capsule folic acid 1 mg tablet 1 mg PO .QD 11/13/23 12/04/23 levothyroxine 100 mcg tablet 100 mcg PO .ACB 11/13/23 12/04/23 lidocaine 4 % topical patch 1 patch topical DAILY 11/13/23 12/04/23 (Aspercreme (lidocaine)) loperamide 2 mg capsule 2 mg PO BID PRN loose stool 11/13/23 12/04/23 melatonin 3 mg capsule 3 mg PO .QHS 11/13/23 11/27/23 menthol 5 % topical gel (Biofreeze 1 ea topical .Q8 PRN pain 11/13/23 11/27/23 (menthol)) morphine 15 mg tablet,extended 15 mg PO Q8H 11/13/23 12/04/23 release nystatin 100,000 unit/gram topical 1 applic topical .QD 11/13/23 11/27/23 powder ondansetron HCl 4 mg tablet 4 mg PO Q6H PRN nausea and vomiting 11/13/23 12/04/23 oxycodone 5 mg tablet 5 mg PO Q6H PRN pain 11/13/23 12/04/23 potassium citrate 10 mEq (1,080 10 meq PO QID 11/13/23 12/04/23 mg) tablet,extended release sertraline 25 mg tablet 75 mg PO BEDTIME 11/13/23 12/04/23 dextromethorphan-guaifenesin 10 1 tab-cap PO BID PRN cough 11/27/23 11/27/23 mg-200 mg capsule (Coricidin HBP Chest Congestion-Cough) enoxaparin 40 mg/0.4 mL 40 mg subcut DAILY 11/27/23 11/27/23 subcutaneous syringe (Lovenox) hexylresorcinol 1 otis mucous membrane DAILY PRN 11/27/23 11/27/23 sore throat wound dressings (Triad Wound 1 applic topical TID 11/27/23 11/27/23 Dressing paste) polyethylene glycol 3350 17 17 g PO DAILY PRN constipation 07/22/24 07/22/24 gram/dose oral powder (ClearLax) Previous Rx's ?Medication ?Instructions ?Recorded amoxicillin 875 mg-potassium 1 tab PO Q12H #20 tabs 11/29/23 clavulanate 125 mg tablet furosemide 40 mg tablet (Lasix) 40 mg PO QAM #30 tabs 11/29/23 Allergies Allergy/AdvReac Type Severity Reaction Status Date / Time No Known Drug Allergies Allergy Verified 12/04/23 07:37 Opioid HPI Opioid Management Most Recent Opioid Data: Last Pain Scale 3 12/04/23 08:39 Last Pain Intensity 6 11/27/23 13:21 Last Pain Assessment 11/29/23 17:11 Last MAR Pain Assessment 12/04/23 08:39 Last ORT Total Score 0 11/27/23 05:15 Last ORT Risk Category Low Risk 11/27/23 05:15 [facility] Medical History (Updated 12/04/23 @ 12:34 by Dangelo Gerber MD) Postoperative wound breakdown ?T81.31XA - Disruption of external operation (surgical) wound, not elsewhere classified, initial encounter (ICD-10) CHF (congestive heart failure) ?I50.9 - Heart failure, unspecified (ICD-10) Bruise of both arms ?S40.021A - Contusion of right upper arm, initial encounter (ICD-10) ?S40.022A - Contusion of left upper arm, initial encounter (ICD-10) Anemia ?D64.9 - Anemia, unspecified (ICD-10) Dyspnea ?R06.00 - Dyspnea, unspecified (ICD-10) Femur fracture, left ?S72.92XA - Unspecified fracture of left femur, initial encounter for closed fracture (ICD-10) Protein-calorie malnutrition ?E46 - Unspecified protein-calorie malnutrition (ICD-10) Abnormal posture ?R29.3 - Abnormal posture (ICD-10) Hypertension ?I10 - Essential (primary) hypertension (ICD-10) Morbid obesity ?E66.01 - Morbid (severe) obesity due to excess calories (ICD-10) Insomnia ?G47.00 - Insomnia, unspecified (ICD-10) GERD (gastroesophageal reflux disease) ?K21.9 - Gastro-esophageal reflux disease without esophagitis (ICD-10) Sick sinus syndrome ?I49.5 - Sick sinus syndrome (ICD-10) Atrial fibrillation ?I48.91 - Unspecified atrial fibrillation (ICD-10) Delusional disorder ?F22 - Delusional disorders (ICD-10) Tinea unguium ?B35.1 - Tinea unguium (ICD-10) Kidney failure ?N19 - Unspecified kidney failure (ICD-10) Chronic pain ?G89.29 - Other chronic pain (ICD-10) Hypoxemia ?R09.02 - Hypoxemia (ICD-10) Pulmonary embolism ?I26.99 - Other pulmonary embolism without acute cor pulmonale (ICD-10) Dementia ?F03.90 - Unspecified dementia, unspecified severity, without behavioral disturbance, psychotic disturbance, mood disturbance, and anxiety (ICD-10) Cognitive communication deficit ?R41.841 - Cognitive communication deficit (ICD-10) Osteoarthritis ?M19.90 - Unspecified osteoarthritis, unspecified site (ICD-10) Depression ?F32.A - Depression, unspecified (ICD-10) DNR (do not resuscitate) ?Z66 - Do not resuscitate (ICD-10) Hypothyroid ?E03.9 - Hypothyroidism, unspecified (ICD-10) Pressure ulcer of coccygeal region, stage 2 ?L89.152 - Pressure ulcer of sacral region, stage 2 (ICD-10) Social History Highest level of school completed/degree received: don't know Exam Constitutional Vital Signs, click to edit/add: Last Vital Signs Temp 97.5 F L 12/04/23 07:38 Pulse 66 12/04/23 12:20 Resp 14 12/04/23 12:30 BP 102/61 12/04/23 12:16 Pulse Ox 98 12/04/23 12:20 O2 Del Method Room Air 12/04/23 07:38 Course Vital Signs Vital signs: Vital Signs Temperature 97.5 F L 12/04/23 07:38 Pulse Rate 87 12/04/23 07:38 Respiratory Rate 20 12/04/23 07:38 Blood Pressure 90/50 12/04/23 07:38 Pulse Oximetry 94 L 12/04/23 07:38 Oxygen Delivery Method Room Air 12/04/23 07:38 Temperature 97.5 F L 12/04/23 07:38 Pulse Rate 66 12/04/23 12:20 Respiratory Rate 14 12/04/23 12:30 Blood Pressure 102/61 12/04/23 12:16 Pulse Oximetry 98 12/04/23 12:20 Oxygen Delivery Method Room Air 12/04/23 07:38 Medical Decision Making MDM Narrative Medical decision making narrative: 0845 Patient wound culture was done, wound was reevaluated by myself and Lita POE. Patient has serosanguineous fluid that is draining slightly from the distal aspect of the surgical incision. Amparo from LAB noted to Asia RN that patient is left arm did not have a significant amount of ecchymosis several days ago when she was on the inpatient floor at [facility] and there has been labs drawn on the nursing floor. Left arm ecchymosis is new today that was noted by linda SMITH. 0900 During chart review, patient was discharged in the hospital on November 28. Patient was here for lower oxygen levels, congestive heart failure, and pneumonia. Patient was treated, diuresed, and discharged November 28. Patient's wound was noted to be there her last hospital admission as well. Patient was evaluated by orthopedic surgery Dr. Mcdonough as well. 1000 reviewing notes from Monday, November 30 from nurse practitioner notes. Patient has a known left lower extremity surgical incision dehiscence. Patient is currently on Augmentin, concern for wound infection, nonhealing, risk for osteomyelitis. Call was placed for Ortho recommendations. Dressing changes and wound care are in place. November 12 patient had a ORIF of the left femur with lateral locking plate and cerclage cable placed for a left periprosthetic femur fracture after fall on November 12. Patient had notes placed from Dr. Smith, attending physician, at [facility] Patient hemoglobin was 8.3 on Monday, 8.5 today. Patient has no elevated white blood cell count, she is currently taking Augmentin. Patient was in the hospit al last week for pulmonary edema, congestive heart failure. Patient was given 1 L of lactated Ringer's in the ER today. Patient has been A-fib while she is been in the ER, this is chronic. Patient's heart rate has been in the 90s to low 100s. Patient is been afebrile. Patient CT shows posttraumatic and postsurgical changes to the left femur, subcutaneous air and fluid deep to the posterior lateral skin izabela likely represent postsurgical changes. No obvious signs of osteomyelitis, no large fluid collection to suggest an abscess. I have spoken to Dr. Vieira at approx 1200. He then had the nurse call me from [facility], I spoke to Urmila Alcantar RN. Patient case was discussed with the orthopedic doctors on Monday, Dr. Cruz per Urmila RN. It seems that patient was going to be transferred to [facility] on Monday, but there is no transport available to send the patient to [facility] on Monday. 1214 Patient case was then discussed with the transfer center at [facility] at 1215. [address] Cruz, orthopedic attending surgeon from [facility], he agrees with the ER to ER transfer. [address] Barragan, ER physician at [facility]. He agrees with the ER to ER transfer on behalf of Dr. Cruz. Patient had a lunch tray ordered, patient will be transferred by local ground EMS. Paperwork, copies of CAT scan and reports have been sent with patient as well. critical care time 35 minutes exclusive from separate billable procedures that were performed. The following was considered in the determination of critical care but not limited to the level of medical decision making, intensive cardiac and/or respiratory monitoring, frequent vital sign monitoring, evaluation of laboratory studies, evaluation of radiographic studies, oxygen monitoring, and constant monitoring and speaking to family at bedside . Lab Data Labs: Lab Results 12/04/23 Range/Units 08:40 WBC 5.8 (4.0-11.0) 10^3/uL RBC 2.88 L (4.20-5.40) 10^6/uL Hgb 8.5 L (12.0-16.0) g/dL Hct 30.1 L (36.0-48.0) % MCV 104.5 H (81.0-99.0) fL MCH 29.5 (26.7-34.0) pg MCHC 28.2 L (29.9-35.2) g/dL RDW 22.9 H (11.0-15.0) % Plt Count 306 (150-450) 10^3/uL MPV 9.8 (9.5-13.5) fL Neut % (Auto) 70.0 (43.0-75.0) % Lymph % (Auto) 20.6 (20.5-60.0) % [place] % (Auto) 8.0 (1.7-12.0) % Eos % (Auto) 0.0 L (0.9-7.0) % Baso % (Auto) 0.5 (0.2-2.0) % Neut # (Auto) 4.1 (1.4-6.5) 10^3/uL Lymph # (Auto) 1.2 (1.2-3.8) 10^3/uL [place] # (Auto) 0.5 (0.3-0.8) 10^3/uL Eos # (Auto) 0.0 (0.0-0.7) 10^3/uL Baso # (Auto) 0.0 (0.0-0.1) 10^3/uL Abs Immat Gran (auto) 0.05 H (0.00-0.03) 10^3/uL Imm/Tot Granulo (auto) 0.9 H (0.0-0.5) % PT 13.8 H (9.0-11.6) sec INR 1.34 VBG pH 7.540 H (7.330-7.430) VBG pCO2 39.7 L (40.0-52.0) mmHg Sodium 142 (136-145) mmol/L Potassium 4.0 (3.5-5.1) mmol/L Chloride 104 (98-107) mmol/L Carbon Dioxide 33.7 H (21.0-32.0) mmol/L Anion Gap 8.3 BUN 22.0 H (7.0-18.0) mg/dL Creatinine 0.81 (0.55-1.02) mg/dL Est GFR ( Amer) >60 (>=60) Est GFR (Non-Af Amer) >60 (>=60) BUN/Creatinine Ratio 27.2 Glucose 85 (74-106) mg/dL Lactate 1.0 (0.4-2.0) mmol/L Calcium 7.3 L (8.5-10.1) mg/dL Magnesium 1.6 L (1.8-2.4) mg/dL Total Bilirubin 1.1 H (0.2-1.0) mg/dL AST 29 (15-37) U/L ALT 20 (14-59) U/L Alkaline Phosphatase 104 (46-116) U/L Total Protein 5.5 L (6.4-8.2) g/dL Albumin 1.4 L (3.4-5.0) g/dL Globulin 4.1 g/dL Albumin/Globulin Ratio 0.3 ECG Data Attestation: I personally reviewed and interpreted this ECG as follows: (EKG interpretation. Irregular irregular rhythm at 99 beats a minute. Normal axis deviation. No acute ST elevation, no acute ectopy. QTc of 382. Patient has a history of A-fib. Low voltage is noted.) Discharge Plan Discharge Chief Complaint: Skin/Abscess/Foreign Body Clinical Impression: Unspecified open wound, left lower leg, sequela, Anemia Patient Disposition: [facility] Time of Disposition Decision: 12:33 Discharge Location: [facility] Discharge location: [facility], ER to ER transfer, Dr Barragan ER doctor, Dr Cruz ortho Condition: Fair
[2023-12-04] MEDS: OXYCODONE HCL/ACETAMINOPHEN 5MG/325MG 1 TAB PO (08:39)
[2023-12-04] MEDS: LACTATED RINGER'S SOLUTION 1,000 ML 999 ML IV (08:40)
--- NOTE | 2023-12-04 08:49 | PC.NURSE ---
pt repositioned in bed for comfort. warm blanket given. wound culture obtained -- serosanguinous drainage. Xray at bedside
[2023-12-04 08:58] LABS: PCO2 VBG 39.7 mmHg (40.0-52.0)
[2023-12-04 09:02] LABS: Basophils Percent Auto 0.5 % (0.2-2.0); Hematocrit 30.1 % (36.0-48.0); Hemoglobin 8.5 g/dL (12.0-16.0); Immature Granulocytes Abs Auto 0.05 10^3/uL (0.00-0.03); Immature Granulocytes Pct Auto 0.9 % (0.0-0.5); Lymphocytes Absolute Auto 1.2 10^3/uL (1.2-3.8); Lymphocytes Percent Auto 20.6 % (20.5-60.0); Mean Corpuscular HGB Conc 28.2 g/dL (29.9-35.2); Mean Corpuscular Hemoglobin 29.5 pg (26.7-34.0); Mean Corpuscular Volume 104.5 fL (81.0-99.0); Mean Platelet Volume 9.8 fL (9.5-13.5); Monocytes Absolute Auto 0.5 10^3/uL (0.3-0.8); Neutrophils Absolute Auto 4.1 10^3/uL (1.4-6.5); Platelet Count 306 10^3/uL (150-450); Red Blood Count 2.88 10^6/uL (4.20-5.40); Red Cell Distribution Width 22.9 % (11.0-15.0); White Blood Count 5.8 10^3/uL (4.0-11.0)
[2023-12-04 09:13] LABS: Magnesium 1.6 mg/dL (1.8-2.4)
[2023-12-04 09:19] LABS: Alanine Aminotransferase 20 U/L (14-59); Albumin Globulin Ratio 0.3; Albumin Level 1.4 g/dL (3.4-5.0); Alkaline Phosphatase 104 U/L (46-116); Anion Gap 8.3; Aspartate Amino Transferase 29 U/L (15-37); BUN Creatinine Ratio 27.2; Bilirubin Total 1.1 mg/dL (0.2-1.0); Calcium 7.3 mg/dL (8.5-10.1); Carbon Dioxide 33.7 mmol/L (21.0-32.0); Chloride 104 mmol/L (98-107); Estimated GFR (African America >60 (>=60); Estimated GFR (Non-African Ame >60 (>=60); Globulin 4.1 g/dL; Glucose 85 mg/dL (74-106); Sodium 142 mmol/L (136-145); Total Protein 5.5 g/dL (6.4-8.2)
[2023-12-04 09:26] LABS: INR 1.34; Prothrombin Time 13.8 sec (9.0-11.6)
[2023-12-04] MEDS: MAGNESIUM OXIDE 400 MG TABLET 800 MG PO (10:16)
== END 2023-12-04 15:05 | disposition short-term general hospital (02) ==
PROVIDERS: Emergency Provider Emergency Medicine; PCP Family Medicine
DX: S81.802A Unspecified open wound, left lower leg, initial encounter (principal); D64.9 Anemia, unspecified; I48.20 Chronic atrial fibrillation, unspecified; Z66 Do not resuscitate; S72.422D Displaced fracture of lateral condyle of left femur, subsequent encounter for closed fracture with routine healing; X58.XXXD Exposure to other specified factors, subsequent encounter; E66.01 Morbid (severe) obesity due to excess calories; F32.A Depression, unspecified; F03.90 Unspecified dementia, unspecified severity, without behavioral disturbance, psychotic disturbance, mood disturbance, and anxiety; I11.0 Hypertensive heart disease with heart failure; I50.9 Heart failure, unspecified; K21.9 Gastro-esophageal reflux disease without esophagitis; Z68.42 Body mass index [BMI] 45.0-49.9, adult
CPT/HCPCS: 36415; 71045; 73701; 80048; 80053; 82800; 83605; 83735; 85025; 85610; 87040; 87070; 93005; 99285; Q9967

== ENCOUNTER 2023-12-08 03:47 | Outpatient (REF) | payer MEDICARE, MEDICAID, SELFPAY ==
--- OUTSIDE RECORDS SUMMARY | 2023-12-08 03:52 | XMS_ITS ---
Patient Summarization (C-CDA 2.1 CCD) Created on: December 08, 2023 FRANSISCO MENON : 1945 Sex: Female Author Organization Sample organization Care Team Providers Care Lead Technical Writer Name Role Phone NEPTALI VILLALTA Unavailable Unavailabl e NEPTALI VILLALTA Unavailable Unavailabl e BETH, DR ROCK Consulting Unavailable BETH, DR ROCK Admitting Unavailable MISC, DR HANSON Primary Care Unavailable BETH, DR ROCK Attending Unavailable BETH, DR ROCK Attending Unavailable BETH, DR ROCK Consulting Unavailable MISC, DR HANSON Primary Care Unavailable BETH, DR ROCK Admitting Unavailable MISC, DR HANSON Primary Care Unavailable DAVISADIA Attending Unavailable DAVIS, ADIA Consulting Unavailable DAVISADIA Admitting Unavailable BETH, DR ROCK Attending Unavailable BETH, DR ROCK Consulting Unavailable MISC, DR HANSON Primary Care Unavailable BETH, DR ROCK Admitting Unavailable BETH, DR ROCK Consulting Unavailable BETH, DR ROCK Admitting Unavailable MISC, DR HANSON Primary Care Unavailable BETH, DR ROCK Attending Unavailable KIRBY, HARSHA Attending Unavailable HORANI, YUE Admitting Unavailable DARLENE MOORE Referring Unavailable KASSANDRA PEREZ Referring Unavailable VELY, AELA Admitting Unavailable VELY, AELA Attending Unavailable SMITHMARILYN DEVRIESER Referring Unavailable VELY, AELA Referring Unavailable OLIMPIA LANDRY Referring Unavailable VELY, AELA Referring Unavailable VELY, AELA Referring Unavailable SMITH, MARILYNER Referring Unavailable HORANI, YUE Referring Unavailable CLARISSA SHAFFER Referring Unavailable KIRBY, HARSHA Referring Unavailable DON YUSUF Referring Unavailable DOE BARAJSA Referring Unavailable DOE BARAJAS Referring Unavailable KARLA SMITH Referring Unavailable Encounters Encounter Date Encounter Type Care Provider Facility Start: 12-06-2023 Evaluation and management of inpatient HARSHA KIRBY [facility] Start: 12-05-2023 Evaluation and management of inpatient DON PIRKL [facility] Start: 12-04-2023 Emergency department patient visit DOE BARAJAS [facility] Start: 12-04-2023 End: 12-06-2023 Evaluation and management of inpatient HARSHA KIRBY [facility] Start: 11-20-2023 Evaluation and management of inpatient HARSHA [facility] Start: 11-15-2023 [facility] Start: 11-15-2023 Evaluation and management of inpatient AELA MARTIN [facility] Start: 11-15-2023 Evaluation and management of inpatient AELA [facility] Start: 11-14-2023 [facility] Start: 11-14-2023 Evaluation and management of inpatient YUE BRODY [facility] Start: 11-13-2023 Evaluation and management of inpatient OLIMPIA LANDRY [facility] Start: 11-13-2023 End: 11-22-2023 Evaluation and management of inpatient KASSANDRA ARREAGAGERRY [facility] Start: 08-22-2022 End: 08-22-[address] [...] End: 01-31-2017 Ambulatory [facility] Payers Date Payer Category Payer Medicare [id number] 2016 Medicare [id number] 1960 Medicaid [id number] 1960 Medicare [id number] 1945 [facility] [id number] 2.16.84 [id number] 1945 Unknown [id number] [id number] [id number] 1945 Unknown [id number] 2.16.84 [id number] 1945 Unknown [id number] 2.16.84 [id number] 1945 Unknown [id number] 2.16.84 [id number] Problems Active Problems Problem Classification Problem Date Documented Date Episodic/Chronic Acute and unspecified renal failure (4 sources) Unspecified kidney failure; Translations: [UNSPECIFIED KIDNEY FAILURE] Onset: 08-22-2022 Chronic Acute posthemorrhagic anemia (2 sources) Acute posthemorrhagic anemia; Translations: [Acute posthemorrhagic anemia] Onset: 11-13-2023 Episodic Cardiac dysrhythmias (2 sources) Paroxysmal atrial fibrillation; Translations: [Paroxysmal atrial fibrillation] Onset: 12-04-2023 Chronic Complications of surgical procedures or medical care (6 sources) Infection following a procedure, unspecified, initial encounter; Translations: [Other postprocedural complications of skin and subcutaneous tissue] Onset: 11-13-2023 Episodic Congestive heart failure; nonhypertensive (7 sources) Heart failure, unspecified; Translations: [Acute systolic [...] HEART DISEASE W/HEART FAIL] Onset: 02-09-2022 Chronic Nutritional deficiencies (2 sources) Vitamin D deficiency, unspecified; Translations: [Vitamin D deficiency, unspecified] Onset: 12-04-2023 Chronic Other connective tissue disease (2 sources) [...] source) Anorexia; Translations: [ANOREXIA] Onset: 02-09-2022 Episodic Procedures Date Procedure Procedure Detail Performing Clinician Start: 01-30-2017 POTASSIUM NEPTALI MARILYN BEE Results Test Name Value Interpretation Reference Range Facility 30on 12-06-2023 30 Normal [facility] CBC WITH AUTO DIFFERENTIALon 12-06-2023 Erythrocyte distribution width (RBC) [Ratio] 22.8 % High 11.5-15.0 [facility] Comment on above: Performed By: #### L [id number] ####[facility] ([facility])[address] [place] [address] ERYTHROCYTE MEAN CORPUSCULAR HEMOGLOBIN CONCENTRATION (G/DL) BY AUTOMATED 29.8 g/dL Low 32.0-35.0 [facility] Comment on above: Performed By: #### L [id number] ####[facility] ([facility])[address] [place] [address] Hematocrit (Bld) [Volume fraction] 30.2 % Low 36.0-48.0 [facility] Comment on above: Performed By: #### L [id number] ####[facility] ([facility])[address] [place] [address] Hemoglobin (Bld) [Mass/Vol] 9.0 g/dL Low 12.0-15.0 [facility] Comment on above: Performed By: #### L [id number] ####[facility] ([facility])[address] [place] [address] MCH (RBC) [Entitic mass] 30.1 pg Normal 27.0-33.0 [facility] Comment on above: Performed By: #### L [id number] ####[facility] ([facility])[address] [place], [place] [address] MCV (RBC) [Entitic vol] 101.0 fL High 82.0-98.0 [facility] Comment on above: Performed By: #### L [id number] ####[facility] ([facility])[address] [place] [address] NRBC (PER 100 WBCS) BY AUTOMATED COUNT 0.0 % Normal 0 [facility] Comment on above: Performed By: #### L [id number] ####[facility] ([facility])[address] [place] [address] PLATELETS (10*3/UL) IN BLOOD AUTOMATED COUNT 285 10*3/uL Normal 150-400 [facility] Comment on above: Performed By: #### L [id number] ####[facility] ([facility])[address] [place] [address] RBC (Bld) [#/Vol] 2.99 10*6/uL Low 3.80-5.00 [facility] Comment on above: Performed By: #### L [id number] ####[facility] ([facility])[address] [place] [address] WBC (Bld) [#/Vol] 6.16 10*3/uL Normal 4.00-10.60 [facility] Comment on above: Performed By: #### L [id number] ####[facility] ([facility])[address] [place] [address] COMPREHENSIVE METABOLIC PANE Frank 12-06-2023 Albumin [Mass/Vol] 1.9 g/dL Low 3.5-5.7 [facility] Comment on above: Performed By: #### L [id number] ####[facility] [place] [address] ALP [Catalytic activity/Vol] 85 U/L Normal 34-104 [facility] Comment on above: Performed By: #### L [id number] ####[facility] ([facility] [place] [address] ALT [Catalytic activity/Vol] 7 U/L Normal 7-52 [facility] Comment on above: Performed By: #### L [id number] ####[facility] ([facility] [place] [address] Anion gap [Moles/Vol] 9 mmol/L Normal 7-20 [facility] Comment on above: Performed By: #### L [id number] ####[facility] [place] [address] AST [Catalytic activity/Vol] 16 U/L Normal 13-39 [facility] Comment on above: Performed By: #### L [id number] ####[facility] ([facility] [place] [address] Bilirubin [Mass/Vol] 0.7 mg/dL Normal 0.3-1.0 [facility] Comment on above: Performed By: #### L [id number] ####[facility] ([facility])[address] [place] [address] Calcium [Mass/Vol] 6.9 mg/dL Low 8.6-10.3 [facility] Comment on above: Performed By: #### L [id number] ####[facility] ([facility])[address] [place] [address] Chloride [Moles/Vol] 104 mmol/L Normal 98-107 [facility] Comment on above: Performed By: #### L [id number] ####[facility] ([facility])[address] [place] [address] CO2 [Moles/Vol] 28 mmol/L Normal 21-31 [facility] Comment on above: Performed By: #### L [id number] ####[facility] ([facility] [place] [address] Creatinine [Mass/Vol] 0.66 mg/dL Normal 0.60-1.20 [facility] Comment on above: Performed By: #### L [id number] ####[facility] ([facility])[address] [place] [address] GLOMERULAR FILTRATION RATE ML/MIN/1.73 SQ M.PREDICTED 89.2 mL/min/1.73m*2 Normal >60.0 [facility] Comment on above: Result Comment: [facility]???s estimated glomerular filtration rate (eGFR) will [...] group of individuals. Performed By: #### L [id number] ####[facility] ([facility])[address] [place] [address] Glucose [Mass/Vol] 118 mg/dL High 70-100 [facility] Comment on above: Performed By: #### L [id number] ####[facility] ([facility])[address] [place] [address] Potassium [Moles/Vol] 4.4 mmol/L Normal 3.5-5.1 [facility] Comment on above: Performed By: #### L [id number] ####[facility] ([facility])[address] [place] [address] Protein [Mass/Vol] 4.7 g/dL Low 6.0-8.3 [facility] Comment on above: Performed By: #### L [id number] ####[facility] ([facility])[address] [place] [address] Sodium [Moles/Vol] 137 mmol/L Normal 136-145 [facility] Comment on above: Performed By: #### L [id number] ####[facility] ([facility])[address] [place] [address] Urea nitrogen [Mass/Vol] 18 mg/dL Normal 7-25 [facility] Comment on above: Performed By: #### L [id number] ####[facility] ([facility])[address] [place] [address] UREA NITROGEN/CREATININE (MASS RATIO) IN SER/PLAS 27.3 [facility] Comment on above: Performed By: #### L [id number] ####[facility] ([facility])[address] [place] [address] CONSULTon 12-06-2023 CONSULT Normal [facility] DSon 12-06-2023 DS Normal [facility] HEMOGLOBINon 12-06-2023 Hemoglobin (Bld) [Mass/Vol] 7.8 g/dL Low 12.0-15.0 [facility] Comment on above: Performed By: #### L [id number] ####[facility] ([facility])[address] [place] [address] MANUAL DIFFERENTIALon 07-24- 2024 ANISOCYTOSIS PRESENCE IN BLOOD BY LIGHT MICROSCOPY Moderate Normal [facility] Comment on above: Performed By: #### L [id number] ####[facility] ([facility])[address] [place] [address] BASOPHILS (10*3/UL) IN BLOOD BY CALCULATION 0.02 10*3/uL Normal 0.00-0.20 [facility] Comment on above: Performed By: #### L [id number] ####[facility] ([facility])[address] [place] [address] BASOPHILS/100 LEUKOCYTES IN BLOOD BY AUTOMATED COUNT 0.3 % Normal 0.0-1.0 [facility] Comment on above: Performed By: #### L [id number] ####[facility] ([facility])[address] [place] [address] EOSINOPHILS (10*3/UL) IN BLOOD BY CALCULATION 0.00 10*3/uL Normal 0.00-0.50 [facility] Comment on above: Performed By: #### L [id number] ####[facility] ([facility])[address] [place] [address] EOSINOPHILS/100 LEUKOCYTES IN BLOOD BY AUTOMATED COUNT 0.0 % Normal 0.0-6.0 [facility] Comment on above: Performed By: #### L [id number] ####[facility] ([facility])[address] [place] [address] IMMATURE GRANULOCYTES (10*3/UL) IN BLOOD BY CALCULATION 0.19 10*3/uL Normal 0.00-0.20 [facility] Comment on above: Performed By: #### L [id number] ####[facility] ([facility])[address] [place] [address] IMMATURE GRANULOCYTES/100 LEUKOCYTES IN BLOOD BY AUTOMATED COUNT 3.1 % High 0.0-1.0 [facility] Comment on above: Performed By: #### L [id number] ####[facility] ([facility])[address] [place] [address] LYMPHOCYTES (10*3/UL) IN BLOOD BY CALCULATION 1.03 10*3/uL Low 1.20-4.00 [facility] Comment on above: Performed By: #### L [id number] ####[facility] ([facility])[address] [place] [address] LYMPHOCYTES/100 LEUKOCYTES IN BLOOD BY AUTOMATED COUNT 16.7 % Low 20.0-45.0 [facility] Comment on above: Performed By: #### L [id number] ####[facility] ([facility])[address] [place] [address] MONOCYTES (10*3/UL) IN BLOOD BY CALCUATION 0.47 10*3/uL Normal 0.10-1.00 [facility] Comment on above: Performed By: #### L [id number] ####[facility] ([facility])[address] [place] [address] MONOCYTES/100 LEUKOCYTES IN BLOOD BY AUTOMATED COUNT 7.6 % Normal 5.0-12.0 [facility] Comment on above: Performed By: #### L [id number] ####[facility] ([facility])[address] [place] [address] NEUTROPHILS (10*3/UL) IN BLOOD BY CALCULATION 4.5 10*3/uL Normal 1.6-7.6 [facility] Comment on above: Performed By: #### L [id number] ####[facility] ([facility])[address] [place] [address] NEUTROPHILS/100 LEUKOCYTES IN BLOOD BY AUTOMATED COUNT 72.3 % High 40.0-72.0 [facility] Comment on above: Performed By: #### L [id number] ####[facility] ([facility])[address] [place] [address] POIKILOCYTOSIS (PRESENCE) IN BLOOD BY LIGHT MICROSCOPY Slight Normal [facility] Comment on above: Performed By: #### L [id number] ####[facility] ([facility])[address] [place] [address] POLYCHROMASIA IN BLOOD BY LIGHT MICROSCOPY Slight Normal [facility] Comment on above: Performed By: #### L [id number] ####[facility] ([facility])[address] [place] [address] NURSNOTEon 12-06-[address] a midline. Pt is getting Meropenum for 13 days. According to our chart that is a PICC line. Dr. Rodriguez ordered a midline and is comfortable with this choice. [facility] NURSNOTE Report given to Nikki Boothe at [phone]. Report accepted and questions answered. [facility] 30on 12-05-2023 30 [facility] ANESon 12-05-2023 ANES [facility] BASIC METABOLIC PANELon 11-13 Anion gap [Moles/Vol] 7 mmol/L Normal 7-20 [facility] Comment on above: Performed By: #### L [id number] ####[facility] ([facility])[address] [place] [address] Calcium [Mass/Vol] 6.7 mg/dL Low 8.6-10.3 [facility] Comment on above: Performed By: #### L [id number] ####[facility] ([facility])[address] [place] [address] Chloride [Moles/Vol] 103 mmol/L Normal 98-107 [facility] Comment on above: Performed By: #### L [id number] ####[facility] ([facility])[address] [place] [address] CO2 [Moles/Vol] 32 mmol/L High 21-31 [facility] Comment on above: Performed By: #### L [id number] ####[facility] ([facility])[address] [place] [address] Creatinine [Mass/Vol] 0.73 mg/dL Normal 0.60-1.20 [facility] Comment on above: Performed By: #### L [id number] ####[facility] ([facility])[address] [place] [address] GLOMERULAR FILTRATION RATE ML/MIN/1.73 SQ M.PREDICTED 83.6 mL/min/1.73m*2 Normal >60.0 [facility] Comment on above: Result Comment: [facility]???s estimated glomerular filtration rate (eGFR) will [...] of individuals. Performed By: #### L [id number] ####[facility] ([facility])[address] [place] [address] Glucose [Mass/Vol] 173 mg/dL High 70-100 [facility] Comment on above: Performed By: #### L [id number] ####[facility] ([facility])[address] [place] [address] Potassium [Moles/Vol] 4.2 mmol/L Normal 3.5-5.1 [facility] Comment on above: Performed By: #### L [id number] ####[facility] ([facility])[address] [place] [address] Sodium [Moles/Vol] 138 mmol/L Normal 136-145 [facility] Comment on above: Performed By: #### L [id number] ####[facility] ([facility])[address] [place] [address] Urea nitrogen [Mass/Vol] 19 mg/dL Normal 7-25 [facility] Comment on above: Performed By: #### L [id number] ####[facility] ([facility])[address] [place] [address] UREA NITROGEN/CREATININE (MASS RATIO) IN SER/PLAS 26.0 Normal [facility] Comment on above: Performed By: #### L [id number] ####[facility] ([facility])[address] [place] [address] BLOOD CULTUREon 07-23-2024 Bacteria identified Cx Nom (Bld) No growth at 2 days Normal [facility] Comment on above: Order Comment: From a different site than #1. Performed By: #### L [id number] ####[facility] ([facility]AKER)[address] [place] [address] CONSULTon 12-05-2023 CONSULT Normal [facility] CONSULT Normal [facility] HEMOGLOBIN AND HEMATOCRIT, B LOODon 12-05-2023 Hematocrit (Bld) [Volume fraction] 26.2 % Low 36.0-48.0 [facility] Comment on above: Performed By: #### L [id number] ####[facility] ([facility])[address] [place] [address] Hemoglobin (Bld) [Mass/Vol] 7.3 g/dL Low 12.0-15.0 [facility] Comment on above: Performed By: #### L [id number] ####[facility] ([facility])[address] [place] [address] MAGNESIUMon 12-05-2023 Magnesium [Mass/Vol] 1.6 mg/dL Low 1.9-2.7 [facility] Comment on above: Performed By: #### L [id number] ####[facility] [place] [address] MRSA/MSSA DNA NASALon 2023 MRSA DNA Negative Normal Negative [facility] Comment on above: Order Comment: Lamin Smith Surgery scheduled 12/05/23Testing methodology is an automated qualitative in vitro diagnostic test for the directdetection and differentiation of Staphylococcus aureus (SA) DNA and methicillin-resistant Staphylococcus aureus (MRSA) DNA from nasal swabs in patients at risk for nasal colonization. The test utilizes real-time polymerase chain reaction (PCR) for the amplification of MRSA/SA DNA and fluorogenic target-specific hybridization probes for the detection of the amplified DNA. A negative result does not preclude nasal colonization. Performed By: #### L [id number] ####[facility] ([facility])[address] [place] [address] MSSA DNA Negative Normal Negative [facility] Comment on above: Order Comment: Lamin hunt for Dr. Smith Surgery scheduled 12/05/23Testing methodology is an automated qualitative in vitro diagnostic test for the directdetection and differentiation of Staphylococcus aureus (SA) DNA and methicillin-resistant Staphylococcus aureus (MRSA) DNA from nasal swabs in patients at risk for nasal colonization. The test utilizes real-time polymerase chain reaction (PCR) for the amplification of MRSA/SA DNA and fluorogenic target-specific hybridization probes for the detection of the amplified DNA. A negative result does not preclude nasal colonization. Performed By: #### L [id number] ####[facility] ([facility])[address] [place] [address] NURSNOTEon 12-05-2023 NURSNOTE Normal [facility] OPNOTEon 12-05-2023 OPNOTE Normal [facility] POCT GLUCOSE METER UNSOLICIT ED RESULTSon 12-05-2023 Glucose [Mass/Vol] 76 mg/dL Normal 70-105 [facility] Comment on above: Order Comment: Waive d Testing in the ED is performed under the ED CLIA certificate #[id number]. Result Comment: [facility] Performed By: #### L [id number] ####[facility] ([facility])[address] [place] [address] TROPONIN Ion 12-05-2023 Troponin I.cardiac [Mass/Vol] 0.01 ng/mL Normal 0.00-0.04 [facility] Comment on above: Performed By: #### L [id number] ####[facility] ([facility])[address] [place] [address] ANESon 12-04-2023 ANES Normal [facility] APTTon 12-04-2023 ACTIVATED PARTIAL THROMBOPLASTIN TIME IN PPP BY COAGULATION ASSAY 33.8 Seconds Normal 25.0-35.0 [facility] Comment on above: Result Comment: Clin ical significance of the APTT is questionable in the presence of heparin. Performed By: #### L [id number] ####[facility] ([facility])[address] [place] [address] BASIC METABOLIC PANELon 07-2 Anion gap [Moles/Vol] 9 mmol/L Normal 7-20 [facility] Comment on above: Performed By: #### L [id number] ####[facility] ([facility])[address] [place] [address] Calcium [Mass/Vol] 6.9 mg/dL Low 8.6-10.3 [facility] Comment on above: Performed By: #### L [id number] ####[facility] [place] [address] Chloride [Moles/Vol] 102 mmol/L Normal 98-107 [facility] Comment on above: Performed By: #### L [id number] ####[facility] [place] [address] CO2 [Moles/Vol] 32 mmol/L High 21-31 [facility] Comment on above: Performed By: #### L [id number] ####[facility] [place] [address] Creatinine [Mass/Vol] 0.66 mg/dL Normal 0.60-1.20 [facility] Comment on above: Performed By: #### L [id number] ####[facility] [place] [address] GLOMERULAR FILTRATION RATE ML/MIN/1.73 SQ M.PREDICTED 89.2 mL/min/1.73m*2 Normal >60.0 [facility] Comment on above: Result Comment: [facility]???s estimated glomerular filtration rate (eGFR) will [...] of individuals. Performed By: #### L [id number] ####[facility] ([facility])[address] [place] [address] Glucose [Mass/Vol] 95 mg/dL Normal 70-100 [facility] [facility] Comment on above: Performed By: #### L [id number] ####[facility] ([facility])[address] [place] [address] Potassium [Moles/Vol] 4.1 mmol/L Normal 3.5-5.1 [facility] Comment on above: Performed By: #### L [id number] ####[facility] ([facility])[address] [place] [address] Sodium [Moles/Vol] 139 mmol/L Normal 136-145 [facility] Comment on above: Performed By: #### L [id number] ####[facility] ([facility])[address] [place] [address] Urea nitrogen [Mass/Vol] 21 mg/dL Normal 7-25 [facility] Comment on above: Performed By: #### L [id number] ####[facility] ([facility])[address] [place] [address] UREA NITROGEN/CREATININE (MASS RATIO) IN SER/PLAS 31.8 Normal [facility] Comment on above: Performed By: #### L [id number] ####[facility] ([facility])[address] [place] [address] C-REACTIVE PROTEINon 024 C REACTIVE PROTEIN (MG/L) IN SER/PLAS 55.8 mg/L High 0.0-7.0 [facility] Comment on above: Performed By: #### L [id number] ####[facility] ([facility])[address] [place] [address] CBC WITH AUTO DIFFERENTIALon 12-04-2023 Erythrocyte distribution width (RBC) [Ratio] 23.4 % High 11.5-15.0 [facility] Comment on above: Performed By: #### L [id number] ####[facility] ([facility])[address] [place] [address] ERYTHROCYTE MEAN CORPUSCULAR HEMOGLOBIN CONCENTRATION (G/DL) BY AUTOMATED 28.7 g/dL Low 32.0-35.0 [facility] Comment on above: Performed By: #### L [id number] ####[facility] ([facility])[address] [place] [address] Hematocrit (Bld) [Volume fraction] 31.0 % Low 36.0-48.0 [facility] Comment on above: Performed By: #### L [id number] ####[facility] ([facility])[address] [place] [address] Hemoglobin (Bld) [Mass/Vol] 8.9 g/dL Low 12.0-15.0 [facility] Comment on above: Performed By: #### L [id number] ####[facility] ([facility])[address] [place] [address] MCH (RBC) [Entitic mass] 29.3 pg Normal 27.0-33.0 [facility] Comment on above: Performed By: #### L [id number] ####[facility] [place] [address] MCV (RBC) [Entitic vol] 102.0 fL High 82.0-98.0 [facility] Comment on above: Performed By: #### L [id number] ####[facility] ([facility])[address] [place] [address] NRBC (PER 100 WBCS) BY AUTOMATED COUNT 0.0 % Normal 0 [facility] Comment on above: Performed By: #### L [id number] ####[facility] ([facility])[address] [place] [address] PLATELETS (10*3/UL) IN BLOOD AUTOMATED COUNT 328 10*3/uL Normal 150-400 [facility] Comment on above: Performed By: #### L [id number] ####[facility] ([facility])[address] [place] [address] RBC (Bld) [#/Vol] 3.04 10*6/uL Low 3.80-5.00 [facility] Comment on above: Performed By: #### L [id number] ####[facility] ([facility])[address] [place] [address] WBC (Bld) [#/Vol] 5.47 10*3/uL Normal 4.00-10.60 [facility] Comment on above: Performed By: #### L [id number] ####[facility] ([facility])[address] [place] [address] CONSULTon 12-04-2023 CONSULT Normal [facility] EDNURSon 12-04-2023 EDNURS Normal [facility] EDPROVon 12-04-2023 EDPROV Normal [facility] MANUAL DIFFERENTIALon 2023 ANISOCYTOSIS PRESENCE IN BLOOD BY LIGHT MICROSCOPY Moderate Normal [facility] Comment on above: Performed By: #### L [id number] ####[facility] ([facility])[address] [place] [address] BASOPHILS (10*3/UL) IN BLOOD BY CALCULATION 0.02 10*3/uL Normal 0.00-0.20 [facility] Comment on above: Performed By: #### L [id number] ####[facility] ([facility])[address] [place] [address] BASOPHILS/100 LEUKOCYTES IN BLOOD BY AUTOMATED COUNT 0.4 % Normal 0.0-1.0 [facility] Comment on above: Performed By: #### L [id number] ####[facility] ([facility])[address] [place] [address] EOSINOPHILS (10*3/UL) IN BLOOD BY CALCULATION 0.00 10*3/uL Normal 0.00-0.50 [facility] Comment on above: Performed By: #### L [id number] ####[facility] ([facility])[address] [place] [address] EOSINOPHILS/100 LEUKOCYTES IN BLOOD BY AUTOMATED COUNT 0.0 % Normal 0.0-6.0 [facility] Comment on above: Performed By: #### L [id number] ####[facility] [place] [address] HYPOCHROMIA (PRESENCE) IN BLOOD BY LIGHT MICROSCOPY Moderate Normal [place] [facility] Comment on above: Performed By: #### L [id number] ####[facility] ([facility])[address] [place] [address] IMMATURE GRANULOCYTES (10*3/UL) IN BLOOD BY CALCULATION 0.08 10*3/uL Normal 0.00-0.20 [facility] Comment on above: Performed By: #### L [id number] ####[facility] ([facility])[address] [place] [address] IMMATURE GRANULOCYTES/100 LEUKOCYTES IN BLOOD BY AUTOMATED COUNT 1.5 % High 0.0-1.0 [facility] Comment on above: Performed By: #### L [id number] ####[facility] ([facility])[address] [place] [address] LYMPHOCYTES (10*3/UL) IN BLOOD BY CALCULATION 0.83 10*3/uL Low 1.20-4.00 [facility] Comment on above: Performed By: #### L [id number] ####[facility] ([facility] [place] [address] LYMPHOCYTES/100 LEUKOCYTES IN BLOOD BY AUTOMATED COUNT 15.2 % Low 20.0-45.0 [facility] Comment on above: Performed By: #### L [id number] ####[facility] ([facility] [place] [address] MONOCYTES (10*3/UL) IN BLOOD BY CALCUATION 0.45 10*3/uL Normal 0.10-1.00 [facility] Comment on above: Performed By: #### L [id number] ####[facility] ([facility])[address] [place] [address] MONOCYTES/100 LEUKOCYTES IN BLOOD BY AUTOMATED COUNT 8.2 % Normal 5.0-12.0 [facility] Comment on above: Performed By: #### L [id number] ####[facility] ([facility])[address] [place] [address] NEUTROPHILS (10*3/UL) IN BLOOD BY CALCULATION 4.1 10*3/uL Normal 1.6-7.6 [facility] Comment on above: Performed By: #### L [id number] ####[facility] ([facility])[address] [place] [address] NEUTROPHILS/100 LEUKOCYTES IN BLOOD BY AUTOMATED COUNT 74.7 % High 40.0-72.0 [facility] Comment on above: Performed By: #### L [id number] ####[facility] ([facility])[address] [place] [address] POIKILOCYTOSIS (PRESENCE) IN BLOOD BY LIGHT MICROSCOPY Slight Normal [facility] Comment on above: Performed By: #### L [id number] ####[facility] ([facility])[address] [place] [address] POLYCHROMASIA IN BLOOD BY LIGHT MICROSCOPY Slight Normal [facility] Comment on above: Performed By: #### L [id number] ####[facility] ([facility])[address] [place] [address] PROTIME-INRon 12-04-2023 INR IN PPP BY COAGULATION ASSAY 1.58 High 0.90-1.10 [facility] Comment on above: Result Comment: ACC[facility] P RECOMMENDED INR FOR WARFARIN THERAPY CONDITION INRPROPHYLAXIS OF VENOUS THROMBOSIS 2-3(HIGH-RISK SURGERY)TREATMENT OF VENOUS THROMBOSIS 2-3TREATMENT OF PULMONARY EMBOLISM 2-3PREVENTION OF SYSTEMIC EMBOLISM: 2-3 ACUTE MYOCARDIAL INFARCTION TISSUE HEART VALVES VALVULAR HEART DISEASE ATRIAL FIBRILLATION RECURRENT SYSTEMIC EMBOLISMMECHANICAL HEART VALVE 2.5-3.5 FROM: ORAL ANTICOAGULANTS. MECHANISM OF ACTION, CLINICAL EFFECTIVENESS, AND OPTIMAL THERAPEUTIC RANGE. CHEST 1995;108:[id number]. Performed By: #### L [id number] ####[facility] ([facility])[address] [place] [address] PROTHROMBIN TIME (PT) IN PPP BY COAGULATION ASSAY 18.6 Seconds High 12.3-14.8 [facility] Comment on above: Performed By: #### L [id number] ####[facility] ([facility])[address] [place] [address] SEDIMENTATION RATEon 024 SEDIMENTATION RATE, ERYTHROCYTE 85 mm/hr High <=20 [facility] Comment on above: Performed By: #### L [id number] ####[facility] ([facility])[address] [place] [address] TYPE AND SCREENon 12-04-2023 AB SCREEN Negative Normal [facility] Comment on above: Order Comment: Add o n Performed By: #### L [id number] ####[facility], ABO group Nom (Bld) O Normal [facility] Comment on above: Order Comment: Add o n Performed By: #### L [id number] ####[facility], RH TYPE IN BLOOD Positive Normal [facility] Comment on above: Order Comment: Add o n Performed By: #### L [id number] ####[facility], 36on 12-01-2023 36 ANY[employer] DIRECTOR OF [employer]PERATIONS- [phone] PLEASE GIVE ANYA A CALL BACK REGARDING POST OP MARTHA ARENAS TO MAKE POST OP APPOINTMENTS HERE AT [facility] 36 [facility] 36on 11-23-2023 36 [facility] Telephoneon 11-23-2023 Telephone [facility] 30on 11-22-2023 30 [facility] BASIC METABOLIC PANELon 07- Anion gap [Moles/Vol] 8 mmol/L Normal 7-20 [facility] Comment on above: Performed By: #### L [id number] ####[facility] ([facility])[address] [place] [address] Calcium [Mass/Vol] 6.7 mg/dL Low 8.6-10.3 [facility] Comment on above: Performed By: #### L [id number] ####[facility] ([facility] [place] [address] Chloride [Moles/Vol] 106 mmol/L Normal 98-107 [facility] Comment on above: Performed By: #### L [id number] ####[facility] ([facility])[address] [place] [address] CO2 [Moles/Vol] 29 mmol/L Normal 21-31 [facility] Comment on above: Performed By: #### L [id number] ####[facility] ([facility])[address] [place] [address] Creatinine [Mass/Vol] 0.84 mg/dL Normal 0.60-1.20 [facility] Comment on above: Performed By: #### L [id number] ####[facility] ([facility])[address] [place] [address] GLOMERULAR FILTRATION RATE ML/MIN/1.73 SQ M.PREDICTED 70.6 mL/min/1.73m*2 Normal >60.0 [facility] Comment on above: Result Comment: [facility]???s estimated glomerular filtration rate (eGFR) will [...] of individuals. Performed By: #### L [id number] ####[facility] ([facility])[address] [place] [address] Glucose [Mass/Vol] 87 mg/dL Normal 70-100 [facility] Comment on above: Performed By: #### L [id number] ####[facility] ([facility] [place] [address] Potassium [Moles/Vol] 4.2 mmol/L Normal 3.5-5.1 [facility] Comment on above: Performed By: #### L [id number] ####[facility] ([facility] [place] [address] Sodium [Moles/Vol] 139 mmol/L Normal 136-145 [facility] Comment on above: Performed By: #### L [id number] ####[facility] ([facility] [place] [address] Urea nitrogen [Mass/Vol] 34 mg/dL High 7-25 [facility] Comment on above: Performed By: #### L [id number] ####[facility] ([facility])[address] [place] [address] UREA NITROGEN/CREATININE (MASS RATIO) IN SER/PLAS 40.5 Normal [facility] Comment on above: Performed By: #### L [id number] ####[facility] ([facility] [place] [address] CBC WITH AUTO DIFFERENTIALon 11-22-2023 Erythrocyte distribution width (RBC) [Ratio] 22.2 % High 11.5-15.0 [facility] Comment on above: Performed By: #### L [id number] ####[facility] ([facility])[address] [place] [address] ERYTHROCYTE MEAN CORPUSCULAR HEMOGLOBIN CONCENTRATION (G/DL) BY AUTOMATED 31.5 g/dL Low 32.0-35.0 [facility] Comment on above: Performed By: #### L [id number] ####[facility] ([facility] [place] [address] Hematocrit (Bld) [Volume fraction] 26.0 % Low 36.0-48.0 [facility] Comment on above: Performed By: #### L [id number] ####[facility] ([facility])[address] [place] [address] Hemoglobin (Bld) [Mass/Vol] 8.2 g/dL Low 12.0-15.0 [facility] Comment on above: Performed By: #### L [id number] ####[facility] ([facility])[address] [place], [place] [address] MCH (RBC) [Entitic mass] 30.4 pg Normal 27.0-33.0 [facility] Comment on above: Performed By: #### L [id number] ####[facility] ([facility])[address] [place], [place] [address] MCV (RBC) [Entitic vol] 96.3 fL Normal 82.0-98.0 [facility] Comment on above: Performed By: #### L [id number] ####[facility] ([facility])[address] [place] [address] NRBC (PER 100 WBCS) BY AUTOMATED COUNT 2.0 % High 0 [facility] Comment on above: Performed By: #### L [id number] ####[facility] ([facility])[address] [place] [address] PLATELETS (10*3/UL) IN BLOOD AUTOMATED COUNT 136 10*3/uL Low 150-400 [facility] Comment on above: Performed By: #### L [id number] ####[facility] ([facility])[address] [place] [address] RBC (Bld) [#/Vol] 2.70 10*6/uL Low 3.80-5.00 [facility] Comment on above: Performed By: #### L [id number] ####[facility] ([facility] [place] [address] WBC (Bld) [#/Vol] 10.20 10*3/uL Normal 4.00-10.60 [facility] Comment on above: Performed By: #### L [id number] ####[facility] ([facility])[address] [place] [address] CONSULTon 11-22-2023 CONSULT Normal [facility] MAGNESIUMon 11-22-2023 Magnesium [Mass/Vol] 2.0 mg/dL Normal 1.9-2.7 [facility] Comment on above: Performed By: #### L [id number] ####[facility] ([facility])[address] [place] [address] MANUAL DIFFERENTIALon 2023 ANISOCYTOSIS PRESENCE IN BLOOD BY LIGHT MICROSCOPY Moderate Normal [facility] Comment on above: Performed By: #### L [id number] ####[facility] ([facility])[address] [place] [address] BASOPHILS (10*3/UL) IN BLOOD BY CALCULATION 0.00 10*3/uL Normal 0.00-0.20 [facility] Comment on above: Performed By: #### L [id number] ####[facility] ([facility])[address] [place] [address] BASOPHILS/100 LEUKOCYTES IN BLOOD BY AUTOMATED COUNT 0.0 % Normal 0.0-1.0 [facility] Comment on above: Performed By: #### L [id number] ####[facility] ([facility])[address] [place] [address] EOSINOPHILS (10*3/UL) IN BLOOD BY CALCULATION 0.00 10*3/uL Normal 0.00-0.50 [facility] Comment on above: Performed By: #### L [id number] ####[facility] ([facility])[address] [place] [address] EOSINOPHILS/100 LEUKOCYTES IN BLOOD BY AUTOMATED COUNT 0.0 % Normal 0.0-6.0 [facility] Comment on above: Performed By: #### L [id number] ####[facility] ([facility])[address] [place] [address] LYMPHOCYTES (10*3/UL) IN BLOOD BY CALCULATION 1.55 10*3/uL Normal 1.20-4.00 [facility] Comment on above: Performed By: #### L [id number] ####[facility] ([facility])[address] [place] [address] LYMPHOCYTES/100 LEUKOCYTES IN BLOOD BY AUTOMATED COUNT 15.2 % Low 20.0-45.0 [facility] Comment on above: Performed By: #### L [id number] ####[facility] ([facility])[address] [place] [address] MACROCYTES (PRESENCE) IN BLOOD BY LIGHT MICROSCOPY Slight Normal [facility] Comment on above: Performed By: #### L [id number] ####[facility] ([facility])[address] [place] [address] METAMYELOCYTES (10*3/UL) IN BLOOD BY CALCULATION 0.70 10*3/uL High 0.00 [facility] Comment on above: Performed By: #### L [id number] ####[facility] ([facility])[address] [place] [address] METAMYELOCYTES/100 LEUKOCYTES IN BLOOD CELLAVISION 6.9 % High 0.0-0.0 [facility] Comment on above: Performed By: #### L [id number] ####[facility] ([facility])[address] [place] [address] MONOCYTES (10*3/UL) IN BLOOD BY CALCUATION 0.29 10*3/uL Normal 0.10-1.00 [facility] Comment on above: Performed By: #### L [id number] ####[facility] ([facility])[address] [place] [address] MONOCYTES/100 LEUKOCYTES IN BLOOD BY AUTOMATED COUNT 2.8 % Low 5.0-12.0 [facility] Comment on above: Performed By: #### L [id number] ####[facility] ([facility])[address] [place] [address] MYELOCYTES (10*3/UL) IN BLOOD BY CALCULATION 0.49 10*3/uL High 0.00 [facility] Comment on above: Performed By: #### L [id number] ####[facility] ([facility])[address] [place] [address] MYELOCYTES/100 LEUKOCYTES IN BLOOD CELLAVISION 4.8 % High 0.0-0.0 [facility] Comment on above: Performed By: #### L [id number] ####[facility] ([facility])[address] [place] [address] NEUTROPHILS (10*3/UL) IN BLOOD BY CALCULATION 7.1 10*3/uL Normal 1.6-7.6 [facility] Comment on above: Performed By: #### L [id number] ####[facility] ([facility])[address] [place] [address] NEUTROPHILS/100 LEUKOCYTES IN BLOOD BY AUTOMATED COUNT 69.6 % Normal 40.0-72.0 [facility] Comment on above: Performed By: #### L [id number] ####[facility] ([facility])[address] [place] [address] NUCLEATED RED BLOOD CELLS IN BLOOD BY LIGHT MICROSCOPY Present Normal [facility] Comment on above: Performed By: #### L [id number] ####[facility] ([facility])[address] [place] [address] PLASMA CELLS/100 LEUKOCYTES IN BLOOD 0 % Normal 0 [facility] Comment on above: Performed By: #### L [id number] ####[facility] ([facility])[address] [place] [address] PLATELETS GIANT PRESENCE IN BLOOD BY LIGHT MICROSCOPY Present Normal [facility] Comment on above: Performed By: #### L [id number] ####[facility] ([facility])[address] [place] [address] POIKILOCYTOSIS (PRESENCE) IN BLOOD BY LIGHT MICROSCOPY Slight Normal [facility] Comment on above: Performed By: #### L [id number] ####[facility] [place] [address] POLYCHROMASIA IN BLOOD BY LIGHT MICROSCOPY Slight Normal [facility] Comment on above: Performed By: #### L [id number] ####[facility] ([facility])[address] [place] [address] PROMYELOCYTES (10*3/UL) IN BLOOD BY CALCULATION 0.07 10*3/uL High 0.00 [facility] Comment on above: Performed By: #### L [id number] ####[facility] ([facility])[address] [facility] [address] PROMYELOCYTES/100 LEUKOCYTES IN BLOOD CELLAVISION 0.7 % High 0.0-0.0 [facility] Comment on above: Performed By: #### L [id number] ####[facility] ([facility])[address] [facility] [place] [address] VARIANT LYMPHOCYTES (10*3/UL) IN BLOOD BY CALCULATION 0.00 10*3/uL Normal 0.00 [facility] Comment on above: Performed By: #### L [id number] ####[facility] ([facility])[address] [facility] [place] [address] VARIANT LYMPHOCYTES/100 LEUKOCYTES IN BLOOD CELLAVISION 0.0 % Normal 0.0-0.0 [facility] Comment on above: Performed By: #### L [id number] ####[facility] ([facility])[address] [place] [address] NURSNOTEon 11-22-2023 NURSNOTE Report given to ms rojas from [facility]. Two rings found inside patient's chart are placed back onto patient's fingers. Patient aware of the rings back on her finger. Normal [facility] PHOSPHORUSon 11-22-2023 Magnesium [Mass/Vol] 2.3 mg/dL Low 2.5-5.0 [facility] Comment on above: Performed By: #### L [id number] ####[facility] ([facility])[address] [place] [address] PROTIME-INRon 11-22-2023 INR IN PPP BY COAGULATION ASSAY 1.22 High 0.90-1.10 [facility] Comment on above: Result Comment: [facility] P RECOMMENDED INR FOR WARFARIN THERAPY CONDITION INRPROPHYLAXIS OF VENOUS THROMBOSIS 2-3(HIGH-RISK SURGERY)TREATMENT OF VENOUS THROMBOSIS 2-3TREATMENT OF PULMONARY EMBOLISM 2-3PREVENTION OF SYSTEMIC EMBOLISM: 2-3 ACUTE MYOCARDIAL INFARCTION TISSUE HEART VALVES VALVULAR HEART DISEASE ATRIAL FIBRILLATION RECURRENT SYSTEMIC EMBOLISMMECHANICAL HEART VALVE 2.5-3.5 FROM: ORAL ANTICOAGULANTS. MECHANISM OF ACTION, CLINICAL EFFECTIVENESS, AND OPTIMAL THERAPEUTIC RANGE. CHEST 1995;108:231S-246S. Performed By: #### L [id number] ####[facility] ([employer])[address] [place] [address] PROTHROMBIN TIME (PT) IN PPP BY COAGULATION ASSAY 15.5 Seconds High 12.3-14.8 [facility] Comment on above: Performed By: #### L [id number] ####[facility] ([employer])[address] [place] [address] BASIC METABOLIC PANELon 07-0 Anion gap [Moles/Vol] 10 mmol/L Normal 7-20 [facility] Comment on above: Performed By: #### L [id number] ####[facility] ([employer])[address] [place] [address] Calcium [Mass/Vol] 7.4 mg/dL Low 8.6-10.3 [facility] Comment on above: Performed By: #### L [id number] ####[facility] ([employer])[address] [place] [address] Chloride [Moles/Vol] 104 mmol/L Normal 98-107 [facility] Comment on above: Performed By: #### L [id number] ####[facility] [facility] [place] [address] CO2 [Moles/Vol] 30 mmol/L Normal 21-31 [facility] Comment on above: Performed By: #### L [id number] ####[facility] ([facility])[address] [place] [address] Creatinine [Mass/Vol] 1.21 mg/dL High 0.60-1.20 [facility] Comment on above: Performed By: #### L [id number] ####[facility] ([facility])[address] [place] [address] GLOMERULAR FILTRATION RATE ML/MIN/1.73 SQ M.PREDICTED 45.6 mL/min/1.73m*2 Low >60.0 [facility] Comment on above: Result Comment: [facility]???s estimated glomerular filtration rate (eGFR) will [...] of individuals. Performed By: #### L [id number] ####[facility] ([facility] [place] [address] Glucose [Mass/Vol] 101 mg/dL High 70-100 [facility] Comment on above: Performed By: #### L [id number] ####[facility] ([facility] [place] [address] Potassium [Moles/Vol] 4.1 mmol/L Normal 3.5-5.1 [facility] Comment on above: Performed By: #### L [id number] ####[facility] ([facility] [place] [address] Sodium [Moles/Vol] 140 mmol/L Normal 136-145 [facility] Comment on above: Performed By: #### L [id number] ####[facility] ([facility] [place] [address] Urea nitrogen [Mass/Vol] 41 mg/dL High 7-25 [facility] Comment on above: Performed By: #### L [id number] ####[facility] ([facility] [place] [address] UREA NITROGEN/CREATININE (MASS RATIO) IN SER/PLAS 33.9 Normal [facility] Comment on above: Performed By: #### L [id number] ####[facility] ([facility])[address] [place] [address] CBC WITH AUTO DIFFERENTIALon 11-21-2023 Erythrocyte distribution width (RBC) [Ratio] 19.1 % High 11.5-15.0 [facility] Comment on above: Performed By: #### L [id number] ####[facility] ([facility])[address] [place] [address] ERYTHROCYTE MEAN CORPUSCULAR HEMOGLOBIN CONCENTRATION (G/DL) BY AUTOMATED 32.3 g/dL Normal 32.0-35.0 [facility] Comment on above: Performed By: #### L [id number] ####[facility] ([facility])[address] [place] [address] Hematocrit (Bld) [Volume fraction] 25.7 % Low 36.0-48.0 [facility] Comment on above: Performed By: #### L [id number] ####[facility] ([facility] [place] [address] Hemoglobin (Bld) [Mass/Vol] 8.3 g/dL Low 12.0-15.0 [facility] Comment on above: Performed By: #### L [id number] ####[facility] ([facility])[address] [place] [address] MCH (RBC) [Entitic mass] 29.7 pg Normal 27.0-33.0 [facility] Comment on above: Performed By: #### L [id number] ####[facility] ([facility])[address] [place] [address] MCV (RBC) [Entitic vol] 92.1 fL Normal 82.0-98.0 [facility] Comment on above: Performed By: #### L [id number] ####[facility] ([facility] [place] [address] NRBC (PER 100 WBCS) BY AUTOMATED COUNT 8.1 % High 0 [facility] Comment on above: Performed By: #### L [id number] ####[facility] ([facility])[address] [place] [address] PLATELETS (10*3/UL) IN BLOOD AUTOMATED COUNT 134 10*3/uL Low 150-400 [facility] Comment on above: Performed By: #### L [id number] ####[facility] ([facility] [place] [address] RBC (Bld) [#/Vol] 2.79 10*6/uL Low 3.80-5.00 [facility] Comment on above: Performed By: #### L [id number] ####[facility] ([facility])[address] [place] [address] WBC (Bld) [#/Vol] 13.21 10*3/uL High 4.00-10.60 [facility] Comment on above: Performed By: #### L [id number] ####[facility] ([facility])[address] [place], [place] [address] HEMOGLOBIN AND HEMATOCRIT, B LOODon 11-21-2023 Hematocrit (Bld) [Volume fraction] 25.9 % Low 36.0-48.0 [facility] Comment on above: Performed By: #### L [id number] ####[facility] ([facility])[address] [place] [address] Hemoglobin (Bld) [Mass/Vol] 8.3 g/dL Low 12.0-15.0 [facility] Comment on above: Performed By: #### L [id number] ####[facility] ([facility])[address] [place] [address] MAGNESIUMon 11-21-2023 Magnesium [Mass/Vol] 2.1 mg/dL Normal 1.9-2.7 [facility] Comment on above: Performed By: #### L [id number] ####[facility] ([facility])[address] [place] [address] MANUAL DIFFERENTIALon 2023 BASOPHILS (10*3/UL) IN BLOOD BY CALCULATION 0.00 10*3/uL Normal 0.00-0.20 [facility] Comment on above: Performed By: #### L [id number] ####[facility] ([facility])[address] [place] [address] BASOPHILS/100 LEUKOCYTES IN BLOOD BY AUTOMATED COUNT 0.0 % Normal 0.0-1.0 [facility] Comment on above: Performed By: #### L [id number] ####[facility] ([facility])[address] [place] [address] EOSINOPHILS (10*3/UL) IN BLOOD BY CALCULATION 0.09 10*3/uL Normal 0.00-0.50 [facility] Comment on above: Performed By: #### L [id number] ####[facility] ([facility])[address] [place] [address] EOSINOPHILS/100 LEUKOCYTES IN BLOOD BY AUTOMATED COUNT 0.7 % Normal 0.0-6.0 [facility] Comment on above: Performed By: #### L [id number] ####[facility] ([facility])[address] [place] [address] LYMPHOCYTES (10*3/UL) IN BLOOD BY CALCULATION 1.27 10*3/uL Normal 1.20-4.00 [facility] Comment on above: Performed By: #### L [id number] ####[facility] ([facility])[address] [place] [address] LYMPHOCYTES/100 LEUKOCYTES IN BLOOD BY AUTOMATED COUNT 9.6 % Low 20.0-45.0 [facility] Comment on above: Performed By: #### L [id number] ####[facility] ([facility])[address] [place] [address] METAMYELOCYTES (10*3/UL) IN BLOOD BY CALCULATION 0.45 10*3/uL High 0.00 [facility] Comment on above: Performed By: #### L [id number] ####[facility] ([facility])[address] [place] [address] METAMYELOCYTES/100 LEUKOCYTES IN BLOOD CELLAVISION 3.4 % High 0.0-0.0 [facility] Comment on above: Performed By: #### L [id number] ####[facility] ([facility])[address] [place] [address] MONOCYTES (10*3/UL) IN BLOOD BY CALCUATION 0.63 10*3/uL Normal 0.10-1.00 [facility] Comment on above: Performed By: #### L [id number] ####[facility] ([facility])[address] [place] [address] MONOCYTES/100 LEUKOCYTES IN BLOOD BY AUTOMATED COUNT 4.8 % Low 5.0-12.0 [facility] Comment on above: Performed By: #### L [id number] ####[facility] ([facility])[address] [place] [address] MYELOCYTES (10*3/UL) IN BLOOD BY CALCULATION 0.81 10*3/uL High 0.00 [facility] Comment on above: Performed By: #### L [id number] ####[facility] ([facility])[address] [place] [address] MYELOCYTES/100 LEUKOCYTES IN BLOOD CELLAVISION 6.1 % High 0.0-0.0 [facility] Comment on above: Performed By: #### L [id number] ####[facility] ([facility])[address] [place] [address] NEUTROPHILS (10*3/UL) IN BLOOD BY CALCULATION 9.8 10*3/uL High 1.6-7.6 [facility] Comment on above: Performed By: #### L [id number] ####[facility] ([facility] [place] [address] NEUTROPHILS/100 LEUKOCYTES IN BLOOD BY AUTOMATED COUNT 74.0 % High 40.0-72.0 [facility] Comment on above: Performed By: #### L [id number] ####[facility] ([facility] [place] [address] NUCLEATED RED BLOOD CELLS IN BLOOD BY LIGHT MICROSCOPY Present Normal [facility] Comment on above: Performed By: #### L [id number] ####[facility] ([facility] [place] [address] PLASMA CELLS/100 LEUKOCYTES IN BLOOD 0 % Normal 0 [facility] Comment on above: Performed By: #### L [id number] ####[facility] ([facility] [place] [address] PROMYELOCYTES (10*3/UL) IN BLOOD BY CALCULATION 0.18 10*3/uL High 0.00 [facility] Comment on above: Performed By: #### L [id number] ####[facility] ([facility] [place] [address] PROMYELOCYTES/100 LEUKOCYTES IN BLOOD CELLAVISION 1.4 % High 0.0-0.0 [facility] Comment on above: Performed By: #### L [id number] ####[facility] ([facility])[address] [place] [address] VARIANT LYMPHOCYTES (10*3/UL) IN BLOOD BY CALCULATION 0.00 10*3/uL Normal 0.00 [facility] Comment on above: Performed By: #### L [id number] ####[facility] ([facility])[address] [place], [place] [address] VARIANT LYMPHOCYTES/100 LEUKOCYTES IN BLOOD CELLAVISION 0.0 % Normal 0.0-0.0 [facility] Comment on above: Performed By: #### L [id number] ####[facility] ([facility])[address] [place] [address] NURSNOTEon 11-21-2023 NURSNOTE Normal [facility] PHOSPHORUSon 11-21-2023 Magnesium [Mass/Vol] 2.7 mg/dL Normal 2.5-5.0 [facility] Comment on above: Performed By: #### L [id number] ####[facility] ([facility])[address] [place] [address] PROTIME-INRon 11-21-2023 INR IN PPP BY COAGULATION ASSAY 1.18 High 0.90-1.10 [facility] Comment on above: Result Comment: [facility] P RECOMMENDED INR FOR WARFARIN THERAPY CONDITION INRPROPHYLAXIS OF VENOUS THROMBOSIS 2-3(HIGH-RISK SURGERY)TREATMENT OF VENOUS THROMBOSIS 2-3TREATMENT OF PULMONARY EMBOLISM 2-3PREVENTION OF SYSTEMIC EMBOLISM: 2-3 ACUTE MYOCARDIAL INFARCTION TISSUE HEART VALVES VALVULAR HEART DISEASE ATRIAL FIBRILLATION RECURRENT SYSTEMIC EMBOLISMMECHANICAL HEART VALVE 2.5-3.5 FROM: ORAL ANTICOAGULANTS. MECHANISM OF ACTION, CLINICAL EFFECTIVENESS, AND OPTIMAL THERAPEUTIC RANGE. CHEST 1995;108:231S-246S. Performed By: #### L [id number] ####[facility] ([facility])[address] [place] [address] PROTHROMBIN TIME (PT) IN PPP BY COAGULATION ASSAY 15.0 Seconds High 12.3-14.8 [facility] Comment on above: Performed By: #### L [id number] ####[facility] ([facility])[address] [place] [address] 30on 11-20-2023 30 Normal [facility] BASIC METABOLIC PANELon 07-0 Anion gap [Moles/Vol] 11 mmol/L Normal 7-20 [facility] Comment on above: Performed By: #### L [id number] ####[facility] ([facility])[address] [place] [address] Calcium [Mass/Vol] 6.8 mg/dL Low 8.6-10.3 [facility] Comment on above: Performed By: #### L [id number] ####[facility] ([facility] [place] [address] Chloride [Moles/Vol] 102 mmol/L Normal 98-107 [facility] Comment on above: Performed By: #### L [id number] ####[facility] ([facility])[address] [place] [address] CO2 [Moles/Vol] 29 mmol/L Normal 21-31 [facility] Comment on above: Performed By: #### L [id number] ####[facility] ([facility])[address] [place] [address] Creatinine [Mass/Vol] 1.59 mg/dL High 0.60-1.20 [facility] Comment on above: Performed By: #### L [id number] ####[facility] ([facility])[address] [place] [address] GLOMERULAR FILTRATION RATE ML/MIN/1.73 SQ M.PREDICTED 32.8 mL/min/1.73m*2 Low >60.0 [facility] Comment on above: Result Comment: [facility]???s estimated glomerular filtration rate (eGFR) will [...] of individuals. Performed By: #### L [id number] ####[facility] ([facility])[address] [place] [address] Glucose [Mass/Vol] 116 mg/dL High 70-100 [facility] Comment on above: Performed By: #### L [id number] ####[facility] ([facility])[address] [place] [address] Potassium [Moles/Vol] 4.4 mmol/L Normal 3.5-5.1 [facility] Comment on above: Performed By: #### L [id number] ####[facility] ([facility])[address] [place] [address] Sodium [Moles/Vol] 138 mmol/L Normal 136-145 [facility] Comment on above: Performed By: #### L [id number] ####[facility] ([facility])[address] [place] [address] Urea nitrogen [Mass/Vol] 47 mg/dL High 7-25 [facility] Comment on above: Performed By: #### L [id number] ####[facility] ([facility])[address] [place] [address] UREA NITROGEN/CREATININE (MASS RATIO) IN SER/PLAS 29.6 Normal [facility] Comment on above: Performed By: #### L [id number] ####[facility] ([facility])[address] [place] [address] CALCIUM, IONIZEDon CALCIUM IONIZED (MMOL/L) IN BLOOD 0.97 mmol/L Low 1.15-1.33 [facility] Comment on above: Performed By: #### L [id number] ####[facility] [id number] [place] [address] [place] CBCon 11-20-2023 Erythrocyte distribution width (RBC) [Ratio] 18.4 % High 11.5-15.0 [facility] Comment on above: Performed By: #### L [id number] ####[facility] ([facility])[address] [place] [address] ERYTHROCYTE MEAN CORPUSCULAR HEMOGLOBIN CONCENTRATION (G/DL) BY AUTOMATED 32.6 g/dL Normal 32.0-35.0 [facility] Comment on above: Performed By: #### L [id number] ####[facility] ([facility])[address] [place] [address] Hematocrit (Bld) [Volume fraction] 24.2 % Low 36.0-48.0 [facility] Comment on above: Performed By: #### L [id number] ####[facility] ([facility])[address] [place] [address] Hemoglobin (Bld) [Mass/Vol] 7.9 g/dL Low 12.0-15.0 [facility] Comment on above: Performed By: #### L [id number] ####[facility] ([facility])[address] [place] [address] MCH (RBC) [Entitic mass] 29.9 pg Normal 27.0-33.0 [facility] Comment on above: Performed By: #### L [id number] ####[facility] ([facility])[address] [place], [place] [address] MCV (RBC) [Entitic vol] 91.7 fL Normal 82.0-98.0 [facility] Comment on above: Performed By: #### L [id number] ####[facility] ([facility])[address] [place], [place] [address] PLATELETS (10*3/UL) IN BLOOD AUTOMATED COUNT 133 10*3/uL Low 150-400 [facility] Comment on above: Performed By: #### L [id number] ####[facility] ([facility])[address] [place], [place] [address] RBC (Bld) [#/Vol] 2.64 10*6/uL Low 3.80-5.00 [facility] Comment on above: Performed By: #### L [id number] ####[facility] ([facility])[address] [place], [place] [address] WBC (Bld) [#/Vol] 13.49 10*3/uL High 4.00-10.60 [facility] Comment on above: Performed By: #### L [id number] ####[facility] ([facility])[address] [place] [address] CBC WITH AUTO DIFFERENTIALon 11-20-2023 Erythrocyte distribution width (RBC) [Ratio] 22.2 % High 11.5-15.0 [facility] Comment on above: Performed By: #### L [id number] ####[facility] ([facility] [place] [address] ERYTHROCYTE MEAN CORPUSCULAR HEMOGLOBIN CONCENTRATION (G/DL) BY AUTOMATED 31.1 g/dL Low 32.0-35.0 [facility] Comment on above: Performed By: #### L [id number] ####[facility] ([facility] [place] [address] Hematocrit (Bld) [Volume fraction] 18.0 % Low 36.0-48.0 [facility] Comment on above: Performed By: #### L [id number] ####[facility] ([facility] [place] [address] Hemoglobin (Bld) [Mass/Vol] 5.6 g/dL Invalid Interpretation Code 12.0-15.0 [facility] Comment on above: Performed By: #### L [id number] ####[facility] ([facility])[address] [place] [address] MCH (RBC) [Entitic mass] 29.3 pg Normal 27.0-33.0 [facility] Comment on above: Performed By: #### L [id number] ####[facility] ([facility])[address] [place] [address] MCV (RBC) [Entitic vol] 94.2 fL Normal 82.0-98.0 [facility] Comment on above: Performed By: #### L [id number] ####[facility] ([facility])[address] [place] [address] NRBC (PER 100 WBCS) BY AUTOMATED COUNT 11.3 % High 0 [facility] Comment on above: Performed By: #### L [id number] ####[facility] ([facility])[address] [place] [address] PLATELETS (10*3/UL) IN BLOOD AUTOMATED COUNT 139 10*3/uL Low 150-400 [facility] Comment on above: Performed By: #### L [id number] ####[facility] ([facility])[address] [place] [address] RBC (Bld) [#/Vol] 1.91 10*6/uL Low 3.80-5.00 [facility] Comment on above: Performed By: #### L [id number] ####[facility] ([facility])[address] [place] [address] WBC (Bld) [#/Vol] 13.93 10*3/uL High 4.00-10.60 [facility] Comment on above: Performed By: #### L [id number] ####[facility] ([facility])[address] [place] [address] CKon 11-20-2023 CREATINE KINASE (U/L) IN SER/PLAS 239.0 U/L High 30.0-223.0 [facility] Comment on above: Performed By: #### L [id number] ####[facility] ([facility])[address] [place] [address] HEMOGLOBIN AND HEMATOCRIT, B LOODon 11-20-2023 Hematocrit (Bld) [Volume fraction] 18.7 % Low 36.0-48.0 [facility] Comment on above: Performed By: #### L [id number] ####[facility] ([facility])[address] [place] [address] Hematocrit (Bld) [Volume fraction] 22.7 % Low 36.0-48.0 [facility] Comment on above: Performed By: #### L [id number] ####[facility] ([facility])[address] [place] [address] Hemoglobin (Bld) [Mass/Vol] 5.8 g/dL Invalid Interpretation Code 12.0-15.0 [facility] Comment on above: Performed By: #### L [id number] ####[facility] [place] [address] Hemoglobin (Bld) [Mass/Vol] 7.2 g/dL Low 12.0-15.0 [facility] Comment on above: Performed By: #### L [id number] ####[facility] ([facility])[address] [place] [address] MAGNESIUMon 11-20-2023 Magnesium [Mass/Vol] 2.1 mg/dL Normal 1.9-2.7 [facility] Comment on above: Performed By: #### L [id number] ####[facility] ([facility])[address] [place] [address] MANUAL DIFFERENTIALon 2023 ANISOCYTOSIS PRESENCE IN BLOOD BY LIGHT MICROSCOPY Moderate Normal [facility] Comment on above: Performed By: #### L [id number] ####[facility] ([facility])[address] [place] [address] BASOPHILS (10*3/UL) IN BLOOD BY CALCULATION 0.00 10*3/uL Normal 0.00-0.20 [facility] Comment on above: Performed By: #### L [id number] ####[facility] ([facility])[address] [place] [address] BASOPHILS/100 LEUKOCYTES IN BLOOD BY AUTOMATED COUNT 0.0 % Normal 0.0-1.0 [facility] Comment on above: Performed By: #### L [id number] ####[facility] ([facility])[address] [place] [address] EOSINOPHILS (10*3/UL) IN BLOOD BY CALCULATION 0.00 10*3/uL Normal 0.00-0.50 [facility] Comment on above: Performed By: #### L [id number] ####[facility] ([facility])[address] [place] [address] EOSINOPHILS/100 LEUKOCYTES IN BLOOD BY AUTOMATED COUNT 0.0 % Normal 0.0-6.0 [facility] Comment on above: Performed By: #### L [id number] ####[facility] ([facility])[address] [place] [address] HYPOCHROMIA (PRESENCE) IN BLOOD BY LIGHT MICROSCOPY Slight Normal [facility] Comment on above: Performed By: #### L [id number] ####[facility] ([facility])[address] [place] [address] LYMPHOCYTES (10*3/UL) IN BLOOD BY CALCULATION 1.94 10*3/uL Normal 1.20-4.00 [facility] Comment on above: Performed By: #### L [id number] ####[facility] ([facility])[address] [place] [address] LYMPHOCYTES/100 LEUKOCYTES IN BLOOD BY AUTOMATED COUNT 13.9 % Low 20.0-45.0 [facility] Comment on above: Performed By: #### L [id number] ####[facility] ([facility])[address] [place] [address] METAMYELOCYTES (10*3/UL) IN BLOOD BY CALCULATION 0.39 10*3/uL High 0.00 [facility] Comment on above: Performed By: #### L [id number] ####[facility] ([facility])[address] [place] [address] METAMYELOCYTES/100 LEUKOCYTES IN BLOOD CELLAVISION 2.8 % High 0.0-0.0 [facility] Comment on above: Performed By: #### L [id number] ####[facility] ([facility])[address] [place] [address] MONOCYTES (10*3/UL) IN BLOOD BY CALCUATION 0.38 10*3/uL Normal 0.10-1.00 [facility] Comment on above: Performed By: #### L [id number] ####[facility] ([facility])[address] [place] [address] MONOCYTES/100 LEUKOCYTES IN BLOOD BY AUTOMATED COUNT 2.7 % Low 5.0-12.0 [facility] Comment on above: Performed By: #### L [id number] ####[facility] ([facility] [place] [address] MYELOCYTES (10*3/UL) IN BLOOD BY CALCULATION 0.20 10*3/uL High 0.00 [facility] Comment on above: Performed By: #### L [id number] ####[facility] ([facility])[address] [place] [address] MYELOCYTES/100 LEUKOCYTES IN BLOOD CELLAVISION 1.4 % High 0.0-0.0 [facility] Comment on above: Performed By: #### L [id number] ####[facility] ([facility])[address] [place] [address] NEUTROPHILS (10*3/UL) IN BLOOD BY CALCULATION 10.8 10*3/uL High 1.6-7.6 [facility] Comment on above: Performed By: #### L [id number] ####[facility] ([facility])[address] [place] [address] NEUTROPHILS/100 LEUKOCYTES IN BLOOD BY AUTOMATED COUNT 77.8 % High 40.0-72.0 [facility] Comment on above: Performed By: #### L [id number] ####[facility] ([facility])[address] [place] [address] NUCLEATED RED BLOOD CELLS IN BLOOD BY LIGHT MICROSCOPY Present Normal [facility] Comment on above: Performed By: #### L [id number] ####[facility] ([facility])[address] [place] [address] PLASMA CELLS/100 LEUKOCYTES IN BLOOD 0 % Normal 0 [facility] Comment on above: Performed By: #### L [id number] ####[facility] ([facility] [place] [address] PLATELETS GIANT PRESENCE IN BLOOD BY LIGHT MICROSCOPY Present Normal [facility] Comment on above: Performed By: #### L [id number] ####[facility] ([facility] [place] [address] POIKILOCYTOSIS (PRESENCE) IN BLOOD BY LIGHT MICROSCOPY Slight Normal [facility] Comment on above: Performed By: #### L [id number] ####[facility] ([facility])[address] [place] [address] POLYCHROMASIA IN BLOOD BY LIGHT MICROSCOPY Slight Normal [facility] Comment on above: Performed By: #### L [id number] ####[facility] ([facility])[address] [place] [address] PROMYELOCYTES (10*3/UL) IN BLOOD BY CALCULATION 0.20 10*3/uL High 0.00 [facility] Comment on above: Performed By: #### L [id number] ####[facility] ([facility])[address] [place] [address] PROMYELOCYTES/100 LEUKOCYTES IN BLOOD CELLAVISION 1.4 % High 0.0-0.0 [facility] Comment on above: Performed By: #### L [id number] ####[facility] ([facility])[address] [place] [address] VARIANT LYMPHOCYTES (10*3/UL) IN BLOOD BY CALCULATION 0.00 10*3/uL Normal 0.00 [facility] Comment on above: Performed By: #### L [id number] ####[facility] ([facility])[address] [facility] [address] VARIANT LYMPHOCYTES/100 LEUKOCYTES IN BLOOD CELLAVISION 0.0 % Normal 0.0-0.0 [facility] Comment on above: Performed By: #### L [id number] ####[facility] ([facility])[address] [place] [address] NURSNOTEon 11-20-2023 NURSNOTE Patient has critical HGB of 5.8. DPOA was contacted at 0150 and did not bead picker to get consent for blood transfusion. Will transfuse emergently. [facility] NURSNOTE [facility] PATHOLOGY REVIEWon PATHOLOGY REVIEW Electronically christina d by Viktoriya Dominguez MD on 11/20/23 at 12:12 PM. Normal [facility] Comment on above: Performed By: #### L [id number] ####[facility] ([facility])[address] [place] [address] PHOSPHORUSon 11-20-2023 Magnesium [Mass/Vol] 3.2 mg/dL Normal 2.5-5.0 [facility] Comment on above: Performed By: #### L [id number] ####[facility] ([facility])[address] [place] [address] PROTIME-INRon 11-20-2023 INR IN PPP BY COAGULATION ASSAY 4.24 High 0.90-1.10 [facility] Comment on above: Result Comment: [facility] REC[facility] FOR WARFARIN THERAPY CONDITION INRPROPHYLAXIS OF VENOUS THROMBOSIS 2-3(HIGH-RISK SURGERY)TREATMENT OF VENOUS THROMBOSIS 2-3TREATMENT OF PULMONARY EMBOLISM 2-3PREVENTION OF SYSTEMIC EMBOLISM: 2-3 ACUTE MYOCARDIAL INFARCTION TISSUE HEART VALVES VALVULAR HEART DISEASE ATRIAL FIBRILLATION RECURRENT SYSTEMIC EMBOLISMMECHANICAL HEART VALVE 2.5-3.5 FROM: ORAL ANTICOAGULANTS. MECHANISM OF ACTION, CLINICAL EFFECTIVENESS, AND OPTIMAL THERAPEUTIC RANGE. CHEST 1995;108:231S-246S. Performed By: #### L [id number] ####[facility] ([facility])[address] [place] [address] INR IN PPP BY COAGULATION ASSAY 3.65 High 0.90-1.10 [facility] Comment on above: Result Comment: [facility] P RECOMMENDED INR FOR WARFARIN THERAPY CONDITION INRPROPHYLAXIS OF VENOUS THROMBOSIS 2-3(HIGH-RISK SURGERY)TREATMENT OF VENOUS THROMBOSIS 2-3TREATMENT OF PULMONARY EMBOLISM 2-3PREVENTION OF SYSTEMIC EMBOLISM: 2-3 ACUTE MYOCARDIAL INFARCTION TISSUE HEART VALVES VALVULAR HEART DISEASE ATRIAL FIBRILLATION RECURRENT SYSTEMIC EMBOLISMMECHANICAL HEART VALVE 2.5-3.5 FROM: ORAL ANTICOAGULANTS. MECHANISM OF ACTION, CLINICAL EFFECTIVENESS, AND OPTIMAL THERAPEUTIC RANGE. CHEST 1995;108:231S-246S. Performed By: #### L [id number] ####[facility] ([employer])[address] [place] [address] PROTHROMBIN TIME (PT) IN PPP BY COAGULATION ASSAY 41.1 Seconds High 12.3-14.8 [facility] Comment on above: Performed By: #### L [id number] ####[facility] ([employer])[address] [place] [address] PROTHROMBIN TIME (PT) IN PPP BY COAGULATION ASSAY 36.6 Seconds High 12.3-14.8 [facility] Comment on above: Performed By: #### L [id number] ####[facility] ([employer])[address] [place] [address] 30on 11-19-2023 30 Normal [facility] BASIC METABOLIC PANELon Anion gap [Moles/Vol] 14 mmol/L Normal 7-20 [facility] Comment on above: Performed By: #### L [id number] ####[facility] ([employer])[address] [place] [address] Calcium [Mass/Vol] 6.9 mg/dL Low 8.6-10.3 [facility] Comment on above: Performed By: #### L [id number] ####[facility] ([facility])[address] [place] [address] Chloride [Moles/Vol] 99 mmol/L Normal 98-107 [facility] Comment on above: Performed By: #### L [id number] ####[facility] ([facility])[address] [place] [address] CO2 [Moles/Vol] 28 mmol/L Normal 21-31 [facility] Comment on above: Performed By: #### L [id number] ####[facility] ([facility])[address] [place] [address] Creatinine [Mass/Vol] 2.03 mg/dL High 0.60-1.20 [facility] Comment on above: Performed By: #### L [id number] ####[facility] ([facility])[address] [place] [address] GLOMERULAR FILTRATION RATE ML/MIN/1.73 SQ M.PREDICTED 24.5 mL/min/1.73m*2 Low >60.0 [facility] Comment on above: Result Comment: [facility]???s estimated glomerular filtration rate (eGFR) will [...] of individuals. Performed By: #### L [id number] ####[facility] ([facility])[address] [place] [address] Glucose [Mass/Vol] 107 mg/dL High 70-100 [facility] Comment on above: Performed By: #### L [id number] ####[facility] ([facility])[address] [place] [address] Potassium [Moles/Vol] 3.0 mmol/L Low 3.5-5.1 [facility] Comment on above: Performed By: #### L [id number] ####[facility] ([facility]ER)[address] [place] [address] Sodium [Moles/Vol] 138 mmol/L Normal 136-145 [facility] Comment on above: Performed By: #### L [id number] ####[facility] ([facility])[address] [place] [address] Urea nitrogen [Mass/Vol] 49 mg/dL High 7-25 [facility] Comment on above: Performed By: #### L [id number] ####[facility] ([facility])[address] [place] [address] UREA NITROGEN/CREATININE (MASS RATIO) IN SER/PLAS 24.1 Normal [facility] Comment on above: Performed By: #### L [id number] ####[facility] ([facility])[address] [place] [address] CALCIUM, IONIZEDon CALCIUM IONIZED (MMOL/L) IN BLOOD 0.91 mmol/L Low 1.15-1.33 [facility] Comment on above: Performed By: #### L [id number] ####[facility] [id number] [place] [address] [place] CBC WITH AUTO DIFFERENTIALon 11-19-2023 Erythrocyte distribution width (RBC) [Ratio] 22.3 % High 11.5-15.0 [facility] Comment on above: Performed By: #### L [id number] ####[facility] ([facility])[address] [place] [address] ERYTHROCYTE MEAN CORPUSCULAR HEMOGLOBIN CONCENTRATION (G/DL) BY AUTOMATED 31.6 g/dL Low 32.0-35.0 [facility] Comment on above: Performed By: #### L [id number] ####[facility] ([facility])[address] [place] [address] Hematocrit (Bld) [Volume fraction] 19.6 % Low 36.0-48.0 [facility] Comment on above: Performed By: #### L [id number] ####[facility] ([facility]ER)[address] [place] [address] Hemoglobin (Bld) [Mass/Vol] 6.2 g/dL Low 12.0-15.0 [facility] Comment on above: Performed By: #### L [id number] ####[facility] ([facility])[address] [place] [address] MCH (RBC) [Entitic mass] 29.2 pg Normal 27.0-33.0 [facility] Comment on above: Performed By: #### L [id number] ####[facility] ([facility])[address] [place] [address] MCV (RBC) [Entitic vol] 92.5 fL Normal 82.0-98.0 [facility] Comment on above: Performed By: #### L [id number] ####[facility] ([facility])[address] [place], [place] [address] NRBC (PER 100 WBCS) BY AUTOMATED COUNT 9.5 % High 0 [facility] Comment on above: Performed By: #### L [id number] ####[facility] ([facility])[address] [place], [place] [address] PLATELETS (10*3/UL) IN BLOOD AUTOMATED COUNT 123 10*3/uL Low 150-400 [facility] Comment on above: Performed By: #### L [id number] ####[facility] ([facility])[address] [place] [address] RBC (Bld) [#/Vol] 2.12 10*6/uL Low 3.80-5.00 [facility] Comment on above: Performed By: #### L [id number] ####[facility] ([facility])[address] [place] [address] WBC (Bld) [#/Vol] 18.42 10*3/uL High 4.00-10.60 [facility] Comment on above: Performed By: #### L [id number] ####[facility] ([facility])[address] [place] [address] HEPATIC FUNCTION PANELon Albumin [Mass/Vol] 2.1 g/dL Low 3.5-5.7 [facility] Comment on above: Performed By: #### L [id number] ####[facility] ([facility])[address] [place] [address] ALP [Catalytic activity/Vol] 97 U/L Normal 34-104 [facility] Comment on above: Performed By: #### L [id number] ####[facility] ([facility])[address] [place] [address] ALT [Catalytic activity/Vol] 29 U/L Normal 7-52 [facility] Comment on above: Performed By: #### L [id number] ####[facility] ([facility])[address] [place] [address] AST [Catalytic activity/Vol] 89 U/L High 13-39 [facility] Comment on above: Performed By: #### L [id number] ####[facility] ([facility])[address] [place] [address] Bilirubin [Mass/Vol] 0.9 mg/dL Normal 0.3-1.0 [facility] Comment on above: Performed By: #### L [id number] ####[facility] ([facility])[address] [place] [address] Magnesium [Mass/Vol] 0.4 mg/dL High 0-0.2 [facility] Comment on above: Performed By: #### L [id number] ####[facility] ([facility])[address] [place] [address] Protein [Mass/Vol] 4.0 g/dL Low 6.0-8.3 [facility] Comment on above: Performed By: #### L [id number] ####[facility] ([facility])[address] [place] [address] LACTIC ACID WITH 4 HOUR REFL EXon 11-19-2023 LACTATE (MMOL/L) IN SER/PLAS 0.9 mmol/L Normal 0.5-2.2 [facility] Comment on above: Performed By: #### L [id number] ####[facility] ([facility])[address] [place] [address] MAGNESIUMon 11-19-2023 Magnesium [Mass/Vol] 1.9 mg/dL Normal 1.9-2.7 [facility] Comment on above: Performed By: #### L [id number] ####[facility] ([facility])[address] [place] [address] MANUAL DIFFERENTIALon 2023 ANISOCYTOSIS PRESENCE IN BLOOD BY LIGHT MICROSCOPY Moderate Normal [facility] Comment on above: Performed By: #### L [id number] ####[facility] ([facility])[address] [place] [address] BASOPHILS (10*3/UL) IN BLOOD BY CALCULATION 0.00 10*3/uL Normal 0.00-0.20 [facility] Comment on above: Performed By: #### L [id number] ####[facility] ([facility])[address] [place] [address] BASOPHILS/100 LEUKOCYTES IN BLOOD BY AUTOMATED COUNT 0.0 % Normal 0.0-1.0 [facility] Comment on above: Performed By: #### L [id number] ####[facility] ([facility])[address] [place] [address] EOSINOPHILS (10*3/UL) IN BLOOD BY CALCULATION 0.00 10*3/uL Normal 0.00-0.50 [facility] Comment on above: Performed By: #### L [id number] ####[facility] ([facility])[address] [place] [address] EOSINOPHILS/100 LEUKOCYTES IN BLOOD BY AUTOMATED COUNT 0.0 % Normal 0.0-6.0 [facility] Comment on above: Performed By: #### L [id number] ####[facility] ([facility])[address] [place] [address] HYPOCHROMIA (PRESENCE) IN BLOOD BY LIGHT MICROSCOPY Moderate Normal [facility] Comment on above: Performed By: #### L [id number] ####[facility] ([facility] [place] [address] LYMPHOCYTES (10*3/UL) IN BLOOD BY CALCULATION 1.23 10*3/uL Normal 1.20-4.00 [facility] Comment on above: Performed By: #### L [id number] ####[facility] ([facility])[address] [place] [address] LYMPHOCYTES/100 LEUKOCYTES IN BLOOD BY AUTOMATED COUNT 6.7 % Low 20.0-45.0 [facility] Comment on above: Performed By: #### L [id number] ####[facility] ([facility])[address] [place] [address] MONOCYTES (10*3/UL) IN BLOOD BY CALCUATION 0.87 10*3/uL Normal 0.10-1.00 [facility] Comment on above: Performed By: #### L [id number] ####[facility] ([facility])[address] [place] [address] MONOCYTES/100 LEUKOCYTES IN BLOOD BY AUTOMATED COUNT 4.7 % Low 5.0-12.0 [facility] Comment on above: Performed By: #### L [id number] ####[facility] ([facility])[address] [place] [address] NEUTROPHILS (10*3/UL) IN BLOOD BY CALCULATION 15.8 10*3/uL High 1.6-7.6 [facility] Comment on above: Performed By: #### L [id number] ####[facility] ([facility] [place] [address] NEUTROPHILS/100 LEUKOCYTES IN BLOOD BY AUTOMATED COUNT 85.9 % High 40.0-72.0 [facility] Comment on above: Performed By: #### L [id number] ####[facility] ([facility] [place] [address] NUCLEATED RED BLOOD CELLS IN BLOOD BY LIGHT MICROSCOPY Present Normal [facility] Comment on above: Performed By: #### L [id number] ####[facility] ([facility])[address] [place] [address] PLASMA CELLS/100 LEUKOCYTES IN BLOOD 0 % Normal 0 [facility] Comment on above: Performed By: #### L [id number] ####[facility] ([facility])[address] [place] [address] PLATELETS GIANT PRESENCE IN BLOOD BY LIGHT MICROSCOPY Present Normal [facility] Comment on above: Performed By: #### L [id number] ####[facility] ([facility])[address] [place] [address] POIKILOCYTOSIS (PRESENCE) IN BLOOD BY LIGHT MICROSCOPY Slight Normal [facility] Comment on above: Performed By: #### L [id number] ####[facility] ([facility])[address] [place] [address] POLYCHROMASIA IN BLOOD BY LIGHT MICROSCOPY Slight Normal [facility] Comment on above: Performed By: #### L [id number] ####[facility] ([facility])[address] [place] [address] PROMYELOCYTES (10*3/UL) IN BLOOD BY CALCULATION 0.50 10*3/uL High 0.00 [facility] Comment on above: Performed By: #### L [id number] ####[facility] ([facility])[address] [place] [address] PROMYELOCYTES/100 LEUKOCYTES IN BLOOD CELLAVISION 2.7 % High 0.0-0.0 [facility] Comment on above: Performed By: #### L [id number] ####[facility] ([facility])[address] [place] [address] VARIANT LYMPHOCYTES (10*3/UL) IN BLOOD BY CALCULATION 0.00 10*3/uL Normal 0.00 [facility] Comment on above: Performed By: #### L [id number] ####[facility] ([facility])[address] [place] [address] VARIANT LYMPHOCYTES/100 LEUKOCYTES IN BLOOD CELLAVISION 0.0 % Normal 0.0-0.0 [facility] Comment on above: Performed By: #### L [id number] ####[facility] ([facility])[address] [place] [address] NURSNOTEon 11-19-2023 NURSNOTE Normal [facility] PHOSPHORUSon 11-19-2023 Magnesium [Mass/Vol] 4.1 mg/dL Normal 2.5-5.0 [facility] Comment on above: Performed By: #### L [id number] ####[facility] ([employer])[address] [place] [address] POTASSIUMon 11-19-2023 Potassium [Moles/Vol] 3.7 mmol/L Normal 3.5-5.1 [facility] Comment on above: Performed By: #### L [id number] ####[facility] ([employer])[address] [place] [address] PROTIME-INRon 11-19-2023 INR IN PPP BY COAGULATION ASSAY 4.04 High 0.90-1.10 [facility] Comment on above: Result Comment: [facility] P RECOMMENDED INR FOR WARFARIN THERAPY CONDITION INRPROPHYLAXIS OF VENOUS THROMBOSIS 2-3(HIGH-RISK SURGERY)TREATMENT OF VENOUS THROMBOSIS 2-3TREATMENT OF PULMONARY EMBOLISM 2-3PREVENTION OF SYSTEMIC EMBOLISM: 2-3 ACUTE MYOCARDIAL INFARCTION TISSUE HEART VALVES VALVULAR HEART DISEASE ATRIAL FIBRILLATION RECURRENT SYSTEMIC EMBOLISMMECHANICAL HEART VALVE 2.5-3.5 FROM: ORAL ANTICOAGULANTS. MECHANISM OF ACTION, CLINICAL EFFECTIVENESS, AND OPTIMAL THERAPEUTIC RANGE. CHEST 1995;108:231S-246S. Performed By: #### L [id number] ####[facility] ([facility])[address] [place] [address] PROTHROMBIN TIME (PT) IN PPP BY COAGULATION ASSAY 39.6 Seconds High 12.3-14.8 [facility] Comment on above: Performed By: #### L [id number] ####[facility] ([facility]ER)[address] [place] [address] TYPE AND SCREENon 11-19-2023 AB SCREEN Negative [facility] Comment on above: Performed By: #### L [id number] ####[facility], ABO group Nom (Bld) O Normal [facility] Comment on above: Performed By: #### L [id number] ####[facility], RH TYPE IN BLOOD Positive Normal [facility] Comment on above: Performed By: #### L [id number] ####[facility], 30on 11-18-2023 30 [facility] 30on 11-17-2023 30 [facility] 30 [facility] 30 [facility] CONSULTon 11-17-2023 CONSULT [facility] NURSNOTEon 11-17-2023 NURSNOTE Patient states frustration with having to do assessment, and meds stating she doesn't want to be told what to do . Patient also refusing oxygen at this time. [facility] on 11-16-2023 30 [facility] 30on 11-15-2023 30 [facility] 30 [facility] ANESon 11-15-2023 ANES [facility] ARTERIAL BLOOD GAS WITH CO-O XIMETRYon 11-15-2023 Base excess Calc (Bld) [Moles/Vol] -19.35692 mmol/L Low -2.0-3.0 [facility] Comment on above: Performed By: #### L [id number] ####[facility] [id number] [place] [address] [place] Base excess Calc (Bld) [Moles/Vol] -19.16063 mmol/L Low -2.0-3.0 [facility] Comment on above: Performed By: #### L [id number] ####[facility] [id number] [place] [address] [place] Base excess Calc (Bld) [Moles/Vol] -18.02770 mmol/L Low -2.0-3.0 [facility] Comment on above: Performed By: #### L [id number] ####[facility] [id number] [place] [address] [place] Base excess Calc (Bld) [Moles/Vol] -16.63910 mmol/L Low -2.0-3.0 [facility] Comment on above: Performed By: #### L [id number] ####[facility] RES[facility] [id number] [place] [address] [place] CARBOXYHEMOGLOBIN/HEM OGLOBIN TOTAL % IN BLOOD 1.7 % Normal 0.0-3.0 [facility] Comment on above: Performed By: #### L [id number] ####[facility] RES[facility] [id number] [place] [address] [place] CARBOXYHEMOGLOBIN/HEM OGLOBIN TOTAL % IN BLOOD 1.9 % Normal 0.0-3.0 [facility] Comment on above: Performed By: #### L [id number] ####[facility] RES[facility] [id number] [place] [address] [place] CARBOXYHEMOGLOBIN/HEM OGLOBIN TOTAL % IN BLOOD 1.7 % Normal 0.0-3.0 [facility] Comment on above: Performed By: #### L [id number] ####[facility] RES[facility]IR[facility] [id number] [place] [address] [place] CARBOXYHEMOGLOBIN/HEM OGLOBIN TOTAL % IN BLOOD 1.3 % Normal 0.0-3.0 [facility] Comment on above: Performed By: #### L [id number] ####[facility] RESPIR[facility] [id number] [place] [address] [place] CO2 (Bld) [Partial pressure] 27 mm[Hg] Low 35-48 [facility] Comment on above: Performed By: #### L [id number] ####[facility] RESP[facility] [id number] [place] [address] [place] CO2 (Bld) [Partial pressure] 30 mm[Hg] Low 35-48 [facility] Comment on above: Performed By: #### L [id number] ####[facility] RESP[facility] [id number] [place] [address] [place] CO2 (Bld) [Partial pressure] 27 mm[Hg] Low 35-48 [facility] Comment on above: Performed By: #### L [id number] ####[facility] RES[facility] [id number] [place] [address] [place] CO2 (Bld) [Partial pressure] 32 mm[Hg] Low 35-48 [facility] Comment on above: Performed By: #### L [id number] ####[facility] [id number] [place] [address] [place] DEOXYGENATED HEMOGLOBIN IN BLOOD 0.1 % Low [address] [place] [address] Comment on above: Performed By: #### L [id number] ####[facility] [id number] [place] [address] [place] DEOXYGENATED HEMOGLOBIN IN BLOOD 2.6 % Normal [address] [place] [address] Comment on above: Performed By: #### L [id number] ####[facility] [id number] [place] [address] [place] DEOXYGENATED HEMOGLOBIN IN BLOOD 1.6 % Normal -[address] [place] [address] Comment on above: Performed By: #### L [id number] ####[facility] [id number] [place] [address] [place] DEOXYGENATED HEMOGLOBIN IN BLOOD 4.6 % Normal -[address] [place] [address] Comment on above: Performed By: #### L [id number] ####[facility] [id number] [place] [address] [place] HCO3 (Bld) [Moles/Vol] 8.6 mmol/L Low 21.0-28.0 [facility] Comment on above: Performed By: #### L [id number] ####[facility] [id number] [place] [address] [facility] HCO3 (Bld) [Moles/Vol] 8.9 mmol/L Low 21.0-28.0 [facility] Comment on above: Performed By: #### L [id number] ####[facility] [id number] [place] [address] [facility] HCO3 (Bld) [Moles/Vol] 9.0 mmol/L Low 21.0-28.0 [facility] Comment on above: Performed By: #### L [id number] ####[facility] [id number] [place] [address] [facility] HCO3 (Bld) [Moles/Vol] 11.1 mmol/L Low 21.0-28.0 [facility] Comment on above: Performed By: #### L [id number] ####[facility] [id number] [place] [address] [facility] Hemoglobin (Bld) [Mass/Vol] 8.0 g/dL Low 11.7-17.4 [facility] Comment on above: Performed By: #### L [id number] ####[facility] [id number] [place] [address] [facility] Hemoglobin (Bld) [Mass/Vol] 9.8 g/dL Low 11.7-17.4 [facility] Comment on above: Performed By: #### L [id number] ####[facility] [id number] [place] [address] [facility] Hemoglobin (Bld) [Mass/Vol] 9.6 g/dL Low 11.7-17.4 [facility] Comment on above: Performed By: #### L [id number] ####[facility] [id number] [place] [address] [facility] Hemoglobin (Bld) [Mass/Vol] 8.9 g/dL Low 11.7-17.4 [facility] Comment on above: Performed By: #### L [id number] ####[facility] [id number] [place] [address] [place] METHEMOGLOBIN/100 IN BLOOD 0.2 % Normal 0.0-1.5 [facility] Comment on above: Performed By: #### L [id number] ####[facility] [id number] [place] [address] [place] METHEMOGLOBIN/100 IN BLOOD 0.7 % Normal 0.0-1.5 [facility] Comment on above: Performed By: #### L [id number] ####[facility] [id number] [place] [address] [place] METHEMOGLOBIN/100 IN BLOOD 0.8 % Normal 0.0-1.5 [facility] Comment on above: Performed By: #### L [id number] ####[facility] [id number] [place] [address] [place] METHEMOGLOBIN/100 IN BLOOD 0.3 % Normal 0.0-1.5 [facility] Comment on above: Performed By: #### L [id number] ####[facility] [id number] [place] [address] [place] Oxygen (Bld) [Partial pressure] 266 mm[Hg] High 83-100 [facility] Comment on above: Performed By: #### L [id number] ####[facility] [id number] [place] [address] [place] Oxygen (Bld) [Partial pressure] 86 mm[Hg] Normal 83-100 [facility] Comment on above: Performed By: #### L [id number] ####[facility] [id number] [place] [address] [place] Oxygen (Bld) [Partial pressure] 98 mm[Hg] Normal 83-100 [facility] Comment on above: Performed By: #### L [id number] ####[facility] [id number] [place] [address] [place] Oxygen (Bld) [Partial pressure] 75 mm[Hg] Low 83-100 [facility] Comment on above: Performed By: #### L [id number] ####[facility] [id number] [place] [address] [place] OXYGEN SATURATION (%) IN ARTERIAL BLOOD 99.9 % High 94.0-98.0 [facility] Comment on above: Performed By: #### L [id number] ####[facility] [id number] [place] [address] [place] OXYGEN SATURATION (%) IN ARTERIAL BLOOD 97.3 % Normal 94.0-98.0 [facility] Comment on above: Performed By: #### L [id number] ####[facility] [id number] [place] [address] [place] OXYGEN SATURATION (%) IN ARTERIAL BLOOD 98.4 % High 94.0-98.0 [facility] Comment on above: Performed By: #### L [id number] ####[facility] [id number] [place] [address] [place] OXYGEN SATURATION (%) IN ARTERIAL BLOOD 95.3 % Normal 94.0-98.0 [facility] Comment on above: Performed By: #### L [id number] ####[facility] [id number] [place] [address] [place] OXYGENATED HEMOGLOBIN IN BLOOD 98.0 % High 90.0-95.0 [facility] Comment on above: Performed By: #### L [id number] ####[facility] [id number] [place] [address] [place] OXYGENATED HEMOGLOBIN IN BLOOD 94.8 % Normal 90.0-95.0 [facility] Comment on above: Performed By: #### L [id number] ####[facility] [id number] [place] [address] [place] OXYGENATED HEMOGLOBIN IN BLOOD 95.9 % High 90.0-95.0 [facility] Comment on above: Performed By: #### L [id number] ####[facility] [id number] [place] [address] [place] OXYGENATED HEMOGLOBIN IN BLOOD 93.8 % Normal 90.0-95.0 [facility] Comment on above: Performed By: #### L [id number] ####[facility] [id number] [place] [address] [place] pH (Bld) 7.11 [pH] Invalid Interpretation Code 7.35-7.45 [facility] Comment on above: Performed By: #### L [id number] ####[facility] [id number] [place] [address] [facility] pH (Bld) 7.08 [pH] Invalid Interpretation Code 7.35-7.45 [facility] Comment on above: Performed By: #### L [id number] ####[facility] [id number] [place] [address] [facility] pH (Bld) 7.13 [pH] Invalid Interpretation Code 7.35-7.45 [facility] Comment on above: Performed By: #### L [id number] ####[facility] [id number] [place] [address] [facility] pH (Bld) 7.15 [pH] Invalid Interpretation Code 7.35-7.45 [facility] Comment on above: Performed By: #### L [id number] ####[facility] [id number] [place] [address] [facility] SOURCE OF OXYGEN Non-rebreather mask Normal [facility] Comment on above: Performed By: #### L [id number] ####[facility] [id number] [place] [address] [facility] SOURCE OF OXYGEN Room Air Normal [facility] Comment on above: Performed By: #### L [id number] ####[facility] [id number] [place] [address] [facility] SOURCE OF OXYGEN Room Air Normal [facility] Comment on above: Performed By: #### L [id number] ####[facility] [id number] [place] [address] [facility] SOURCE OF OXYGEN Room Air Normal [facility] Comment on above: Performed By: #### L [id number] ####[facility] [id number] [place] [address] [facility] ARTERIAL BLOOD GAS WITH IONI [employer] CALCIUMon 11-15-2023 Base excess Calc (Bld) [Moles/Vol] -5.2000 mmol/L Low -2.0-3.0 [facility] Comment on above: Performed By: #### L [id number] ####[facility] RESPIR[facility] [id number] [address] CALCIUM IONIZED (MMOL/L) IN BLOOD 1.07 mmol/L Low 1.15-1.33 [facility] Comment on above: Performed By: #### L [id number] ####[facility] RES[facility] [id number] [address] CO2 (Bld) [Partial pressure] 32 mm[Hg] Low 35-48 [facility] Comment on above: Performed By: #### L [id number] ####[facility] RESP[facility] [id number] [address] HCO3 (Bld) [Moles/Vol] 18.9 mmol/L Low 21.0-28.0 [facility] Comment on above: Performed By: #### L [id number] ####[facility] RESP[facility] [id number] [place] [address] Oxygen (Bld) [Partial pressure] 78 mm[Hg] Low 83-100 [facility] Comment on above: Performed By: #### L [id number] ####[facility] [id number] [place] [address] OXYGEN SATURATION (%) IN ARTERIAL BLOOD 98.2 % High 94.0-98.0 [facility] Comment on above: Performed By: #### L [id number] ####[facility] RESP[facility] [id number] [address] pH (Bld) 7.38 [pH] Normal 7.35-7.45 [facility] Comment on above: Performed By: #### L [id number] ####[facility] RESP[facility] [id number] [address] SOURCE OF OXYGEN Room Air Normal [facility] Comment on above: Performed By: #### L [id number] ####[facility] RESP[facility] [id number] [address] B-TYPE NATRIURETIC PEPTIDEon 11-15-2023 Natriuretic peptide B (Bld) [Mass/Vol] 175 pg/mL High 0-100 [facility] Comment on above: Performed By: #### L [id number] ####[facility] HOSPITAL LAB (BEAKER)[address] [place] [address] Natriuretic peptide B (Bld) [Mass/Vol] 165 pg/mL High 0-100 [facility] Comment on above: Performed By: #### L [id number] ####[facility] HOSPITAL LAB (BEAKER)[address] [place] [address] BASIC METABOLIC PANELon Anion gap [Moles/Vol] 16 mmol/L Normal 7-20 [facility] Comment on above: Performed By: #### L [id number] ####[facility] LAB (BEAKER)[address] [place] [address] Anion gap [Moles/Vol] 28 mmol/L High 7-20 [facility] Comment on above: Performed By: #### L [id number] ####[facility] LAB (BEAKER)[address] [place] [address] Anion gap [Moles/Vol] 25 mmol/L High 7-20 [facility] Comment on above: Performed By: #### L [id number] ####[facility] LAB (BEAKER)[address] [place] [address] Calcium [Mass/Vol] 7.2 mg/dL Low 8.6-10.3 [facility] Comment on above: Performed By: #### L [id number] ####[facility] LAB (BEAKER)[address] [place] [address] Calcium [Mass/Vol] 6.7 mg/dL Low 8.6-10.3 [facility] Comment on above: Performed By: #### L [id number] ####[facility] HOSPITAL LAB (BEAKER)[address] [place] [address] Calcium [Mass/Vol] 7.4 mg/dL Low 8.6-10.3 [facility] Comment on above: Performed By: #### L [id number] ####[facility] HOSPITAL LAB (BEAKER)[address] [place] [address] Chloride [Moles/Vol] 113 mmol/L High 98-107 [facility] Comment on above: Performed By: #### L [id number] ####[facility] HOSPITAL LAB (BEAKER)[address] [place] [address] Chloride [Moles/Vol] 112 mmol/L High 98-107 [facility] Comment on above: Performed By: #### L [id number] ####[facility]OSPITAL LAB (BEAKER)[address] [place] [address] Chloride [Moles/Vol] 108 mmol/L High 98-107 [facility] Comment on above: Performed By: #### L [id number] ####[facility]OSPITAL LAB (BEAKER)[address] [place] [address] CO2 [Moles/Vol] 18 mmol/L Low 21-31 [facility] Comment on above: Performed By: #### L [id number] ####[facility] HOSPITAL LAB (BEAKER)[address] [place] [address] CO2 [Moles/Vol] 10 mmol/L Invalid Interpretation Code 21- [facility] Comment on above: Performed By: #### L [id number] ####[facility] HOSPITAL LAB (BEAKER)[address] [place] [address] CO2 [Moles/Vol] 22 mmol/L Normal 21-31 [facility] Comment on above: Performed By: #### L [id number] ####[facility] HOSPITAL LAB (BEAKER)[address] [place] [address] Creatinine [Mass/Vol] 1.00 mg/dL Normal 0.60-1.20 [facility] Comment on above: Performed By: #### L [id number] ####[facility] HOSPITAL LAB (BEAKER)[address] [place] [address] Creatinine [Mass/Vol] 1.18 mg/dL Normal 0.60-1.20 [facility] Comment on above: Performed By: #### L [id number] ####[facility] ([facility])[address] [place] [address] Creatinine [Mass/Vol] 1.33 mg/dL High 0.60-1.20 [facility] Comment on above: Performed By: #### L [id number] ####[facility] ([facility])[address] [place] [address] GLOMERULAR FILTRATION RATE ML/MIN/1.73 SQ M.PREDICTED 57.3 mL/min/1.73m*2 Low >60.0 [facility] Comment on above: Result Comment: [facility]???s estimated glomerular filtration rate (eGFR) will [...] of individuals. Performed By: #### L [id number] ####[facility] ([facility])[address] [place] [address] GLOMERULAR FILTRATION RATE ML/MIN/1.73 SQ M.PREDICTED 47.0 mL/min/1.73m*2 Low >60.0 [facility] Comment on above: Result Comment: [facility]???s estimated glomerular filtration rate (eGFR) will [...] of individuals. Performed By: #### L [id number] ####[facility] ([facility])[address] [place] [address] GLOMERULAR FILTRATION RATE ML/MIN/1.73 SQ M.PREDICTED 40.7 mL/min/1.73m*2 Low >60.0 [facility] Comment on above: Result Comment: [facility]???s estimated glomerular filtration rate (eGFR) will [...] of individuals. Performed By: #### L [id number] ####[facility] ([facility])[address] [place] [address] Glucose [Mass/Vol] 205 mg/dL High 70-100 [facility] Comment on above: Performed By: #### L [id number] ####[facility] ([facility])[address] [place] [address] Glucose [Mass/Vol] 239 mg/dL High 70-100 [facility] Comment on above: Performed By: #### L [id number] ####[facility] ([facility])[address] [place] [address] Glucose [Mass/Vol] 140 mg/dL High 70-100 [facility] Comment on above: Performed By: #### L [id number] ####[facility] ([facility])[address] [place] [address] Potassium [Moles/Vol] 3.9 mmol/L Normal 3.5-5.1 [facility] Comment on above: Performed By: #### L [id number] ####[facility] ([facility] [place] [address] Potassium [Moles/Vol] 3.7 mmol/L Normal 3.5-5.1 [facility] Comment on above: Performed By: #### L [id number] ####[facility] ([facility])[address] [place] [address] Potassium [Moles/Vol] 3.4 mmol/L Low 3.5-5.1 [facility] Comment on above: Performed By: #### L [id number] ####[facility] ([facility])[address] [place] [address] Sodium [Moles/Vol] 143 mmol/L Normal 136-145 [facility] Comment on above: Performed By: #### L [id number] ####[facility] ([facility])[address] [place] [address] Sodium [Moles/Vol] 146 mmol/L High 136-145 [facility] Comment on above: Performed By: #### L [id number] ####[facility] ([facility])[address] [place] [address] Sodium [Moles/Vol] 152 mmol/L High 136-145 [facility] Comment on above: Performed By: #### L [id number] ####[facility] ([facility])[address] [place] [address] Urea nitrogen [Mass/Vol] 27 mg/dL High 7-25 [facility] Comment on above: Performed By: #### L [id number] ####[facility] ([facility])[address] [place] [address] Urea nitrogen [Mass/Vol] 26 mg/dL High 7-25 [facility] Comment on above: Performed By: #### L [id number] ####[facility] ([facility] [place] [address] Urea nitrogen [Mass/Vol] 30 mg/dL High 7-25 [facility] Comment on above: Performed By: #### L [id number] ####[facility] ([facility] [place] [address] UREA NITROGEN/CREATININE (MASS RATIO) IN SER/PLAS 27.0 Normal [facility] Comment on above: Performed By: #### L [id number] ####[facility] ([facility] [place] [address] UREA NITROGEN/CREATININE (MASS RATIO) IN SER/PLAS 22.0 [facility] Comment on above: Performed By: #### L [id number] ####[facility] ([facility])[address] [place] [address] UREA NITROGEN/CREATININE (MASS RATIO) IN SER/PLAS 22.6 [facility] Comment on above: Performed By: #### L [id number] ####[facility] ([facility])[address] [place] [address] BETA HYDROXYBUTYRATEon 11-14 BETA HYDROXYBUTYRATE (MMOL/L) IN SER/PLAS 0.31 mmol/L High 0.02-0.27 [facility] Comment on above: Performed By: #### L [id number] ####[facility] ([facility])[address] [place] [address] BLOOD CULTUREon 11-15-2023 Bacteria identified Cx Nom (Bld) No growth at 5 days [facility] Comment on above: Performed By: #### L [id number] ####[facility] ([facility])[address] [place] [address] Bacteria identified Cx Nom (Bld) No growth at 5 days [facility] Comment on above: Order Comment: From a different site than #1. Performed By: #### L [id number] ####[facility] ([facility] [place] [address] CALCIUM, IONIZEDon CALCIUM IONIZED (MMOL/L) IN BLOOD 1.12 mmol/L Low 1.15-1.33 [facility] Comment on above: Performed By: #### C ALCIUM, IONIZED ####[facility] RESP[facility] [id number] [place] [address] [place] CALCIUM IONIZED (MMOL/L) IN BLOOD 1.06 mmol/L Low 1.15-1.33 [facility] Comment on above: Performed By: #### C ALCIUM, IONIZED ####[facility] RESPIR[facility] [id number] [place] [address] [facility] CALCIUM IONIZED (MMOL/L) IN BLOOD 1.05 mmol/L Low 1.15-1.33 [facility] Comment on above: Performed By: #### C ALCIUM, IONIZED ####[facility] RESPIR[facility] [id number] [place] [address] [facility] CALCIUM IONIZED (MMOL/L) IN BLOOD 1.09 mmol/L Low 1.15-1.33 [facility] Comment on above: Performed By: #### C ALCIUM, IONIZED ####[facility] RESPIR[facility] [id number] [place] [address] [facility] CBCon 11-15-2023 Erythrocyte distribution width (RBC) [Ratio] 21.1 % High 11.5-15.0 [facility] Comment on above: Performed By: #### L [id number] ####[facility] HOSPITAL LAB (BEAKER)[address] [place] [address] Erythrocyte distribution width (RBC) [Ratio] 21.2 % High 11.5-15.0 [facility] Comment on above: Performed By: #### L [id number] ####[facility] [place] [address] ERYTHROCYTE MEAN CORPUSCULAR HEMOGLOBIN CONCENTRATION (G/DL) BY AUTOMATED 32.2 g/dL Normal 32.0-35.0 [facility] Comment on above: Performed By: #### L [id number] ####[facility] LAB (BEAKER)[address] [place] [address] ERYTHROCYTE MEAN CORPUSCULAR HEMOGLOBIN CONCENTRATION (G/DL) BY AUTOMATED 33.3 g/dL Normal 32.0-35.0 [facility] Comment on above: Performed By: #### L [id number] ####[facility] LAB (BEAKER)[address] [place] [address] Hematocrit (Bld) [Volume fraction] 25.8 % Low 36.0-48.0 [facility] Comment on above: Result Comment: Pt i s in surgery on 11/15/23 Performed By: #### L [id number] ####[facility] ([facility])[address] [place] [address] Hematocrit (Bld) [Volume fraction] 21.9 % Low 36.0-48.0 [facility] Comment on above: Performed By: #### L [id number] ####[facility] ([facility])[address] [place] [address] Hemoglobin (Bld) [Mass/Vol] 8.3 g/dL Low 12.0-15.0 [facility] Comment on above: Performed By: #### L [id number] ####[facility] ([facility])[address] [place] [address] Hemoglobin (Bld) [Mass/Vol] 7.3 g/dL Low 12.0-15.0 [facility] Comment on above: Performed By: #### L [id number] ####[facility] ([facility])[address] [place] [address] IMMATURE PLATELET FRACTION % 9.7 % High 0.8-6.3 [facility] Comment on above: Performed By: #### L [id number] ####[facility] ([facility])[address] [place] [address] MCH (RBC) [Entitic mass] 27.9 pg Normal 27.0-33.0 [facility] Comment on above: Performed By: #### L [id number] ####[facility] ([facility] [place] [address] MCH (RBC) [Entitic mass] 28.5 pg Normal 27.0-33.0 [facility] Comment on above: Performed By: #### L [id number] ####[facility] ([facility] [place] [address] MCV (RBC) [Entitic vol] 86.6 fL Normal 82.0-98.0 [facility] Comment on above: Performed By: #### L [id number] ####[facility] (BEAKER)[address] [place] [address] MCV (RBC) [Entitic vol] 85.5 fL Normal 82.0-98.0 [facility] Comment on above: Performed By: #### L [id number] ####[facility] LAB (BEAKER)[address] [place] [address] PLATELETS (10*3/UL) IN BLOOD AUTOMATED COUNT 238 10*3/uL Normal 150-400 [facility] Comment on above: Performed By: #### L [id number] ####[facility] ([facility])[address] [place] [address] PLATELETS (10*3/UL) IN BLOOD AUTOMATED COUNT 115 10*3/uL Low 150-400 [facility] Comment on above: Performed By: #### L [id number] ####[facility] ([facility])[address] [place] [address] RBC (Bld) [#/Vol] 2.98 10*6/uL Low 3.80-5.00 [facility] Comment on above: Performed By: #### L [id number] ####[facility] ([facility])[address] [place] [address] RBC (Bld) [#/Vol] 2.56 10*6/uL Low 3.80-5.00 [facility] Comment on above: Performed By: #### L [id number] ####[facility] LAB (BEAKER)[address] [place] [address] WBC (Bld) [#/Vol] 16.89 10*3/uL High 4.00-10.60 [facility] Comment on above: Performed By: #### L [id number] ####[facility] ([facility])[address] [place] [address] WBC (Bld) [#/Vol] 34.01 10*3/uL High 4.00-10.60 [facility] Comment on above: Performed By: #### L [id number] ####[facility] ([facility] [place] [address] CBC WITH AUTO DIFFERENTIALon 11-15-2023 Erythrocyte distribution width (RBC) [Ratio] 20.5 % High 11.5-15.0 [facility] Comment on above: Performed By: #### L [id number] ####[facility] ([facility])[address] [place] [address] ERYTHROCYTE MEAN CORPUSCULAR HEMOGLOBIN CONCENTRATION (G/DL) BY AUTOMATED 30.3 g/dL Low 32.0-35.0 [facility] Comment on above: Performed By: #### L [id number] ####[facility] ([facility])[address] [place] [address] Hematocrit (Bld) [Volume fraction] 32.0 % Low 36.0-48.0 [facility] Comment on above: Performed By: #### L [id number] ####[facility] ([facility])[address] [place] [address] Hemoglobin (Bld) [Mass/Vol] 9.7 g/dL Low 12.0-15.0 [facility] Comment on above: Performed By: #### L [id number] ####[facility] ([facility])[address] [place] [address] MCH (RBC) [Entitic mass] 27.6 pg Normal 27.0-33.0 [facility] Comment on above: Performed By: #### L [id number] ####[facility] ([facility])[address] [place] [address] MCV (RBC) [Entitic vol] 90.9 fL Normal 82.0-98.0 [facility] Comment on above: Performed By: #### L [id number] ####[facility] [facility] [place] [address] NRBC (PER 100 WBCS) BY AUTOMATED COUNT 0.5 % High 0 [facility] Comment on above: Performed By: #### L [id number] ####[facility] ([facility])[address] [place] [address] PLATELETS (10*3/UL) IN BLOOD AUTOMATED COUNT 207 10*3/uL Normal 150-400 [facility] Comment on above: Performed By: #### L [id number] ####[facility] ([facility])[address] [place] [address] RBC (Bld) [#/Vol] 3.52 10*6/uL Low 3.80-5.00 [facility] Comment on above: Performed By: #### L [id number] ####[facility] ([facility])[address] [place] [address] WBC (Bld) [#/Vol] 34.34 10*3/uL High 4.00-10.60 [facility] Comment on above: Performed By: #### L [id number] ####[facility] ([facility])[address] [place] [address] CLOSTRIDIOIDES DIFFICILE DNA AMPLIFICATIONon 11-15-2023 CLOSTRIDIOIDES DIFFICILE (TOXIN A/B) Negative Normal Negative [facility] Comment on above: Order Comment: Testi ng methodology is an in vitro diagnostic test for the direct, qualitative detection of the Clostridioides difficile Toxin A gene (tcdA) in unformed stool specimens of patients suspected of having Clostridioides difficile-infection (CDI). The [place] C. difficile Assay is intended for use as an aid in diagnosis of CDI. The assay utilizes helicase-dependent amplification (HDA) for the amplification of a highly conserved fragment of the Toxin A gene sequence. Performed By: #### L [id number] ####[facility] ([facility] [place] [address] CONSULTon 11-15-2023 CONSULT Normal [facility] HEPATIC FUNCTION PANELon Albumin [Mass/Vol] 2.1 g/dL Low 3.5-5.7 [facility] Comment on above: Performed By: #### L [id number] ####[facility] ([facility] [place] [address] ALP [Catalytic activity/Vol] 65 U/L Normal 34-104 [facility] Comment on above: Performed By: #### L [id number] ####[facility] ([facility] [place] [address] ALT [Catalytic activity/Vol] 647 U/L High 7-52 [facility] Comment on above: Performed By: #### L [id number] ####[facility] ([facility] [place] [address] AST [Catalytic activity/Vol] 1580 U/L High 13-39 [facility] Comment on above: Performed By: #### L [id number] ####[facility] ([facility] [place] [address] Bilirubin [Mass/Vol] 1.0 mg/dL Normal 0.3-1.0 [facility] Comment on above: Performed By: #### L [id number] ####[facility] ([facility])[address] [place] [address] Magnesium [Mass/Vol] 0.5 mg/dL High 0-0.2 [facility] Comment on above: Performed By: #### L [id number] ####[facility] ([facility])[address] [place] [address] Protein [Mass/Vol] 3.2 g/dL Low 6.0-8.3 [facility] Comment on above: Performed By: #### L [id number] ####[facility] ([facility] [place] [address] LACTIC ACID WITH 4 HOUR REFL EXon 11-15-2023 LACTATE (MMOL/L) IN SER/PLAS 13.2 mmol/L Critically high 0.5-2.2 [facility] Comment on above: Result Comment: M-TN EVIOUS CRITICAL RESULTPrevious result verified on 11/15/2023 1231 on specimen/case [id number] called with component Lactate for procedure Lactic acid, plasma with value 16.9 mmol/L. Performed By: #### L [id number] ####[facility] ([facility] [place] [address] LACTIC ACID, PLASMAon 2023 LACTATE (MMOL/L) IN SER/PLAS 17.0 mmol/L Critically high 0.5-2.2 [facility] Comment on above: Performed By: #### L [id number] ####[facility] ([facility])[address] [place] [address] LACTATE (MMOL/L) IN SER/PLAS 16.9 mmol/L Critically high 0.5-2.2 [facility] Comment on above: Result Comment: Prev ious result verified on 11/15/2023 1055 on specimen/case [id number] called with component Lactate for procedure Lactic acid, plasma with value 17.0 mmol/L. Performed By: #### L [id number] ####[facility] ([facility])[address] [place] [address] MAGNESIUMon 11-15-2023 Magnesium [Mass/Vol] 1.6 mg/dL Low 1.9-2.7 [facility] Comment on above: Performed By: #### L [id number] ####[facility] ([facility])[address] [place] [address] Magnesium [Mass/Vol] 2.5 mg/dL Normal 1.9-2.7 [facility] Comment on above: Performed By: #### L [id number] ####[facility] ([facility])[address] [place] [address] MANUAL DIFFERENTIALon 2023 ANISOCYTOSIS PRESENCE IN BLOOD BY LIGHT MICROSCOPY Moderate Normal [facility] Comment on above: Performed By: #### L [id number] ####[facility] ([facility])[address] [place] [address] BASOPHILS (10*3/UL) IN BLOOD BY CALCULATION 0.00 10*3/uL Normal 0.00-0.20 [facility] Comment on above: Performed By: #### L [id number] ####[facility] ([facility] [place] [address] BASOPHILS/100 LEUKOCYTES IN BLOOD BY AUTOMATED COUNT 0.0 % Normal 0.0-1.0 [facility] Comment on above: Performed By: #### L [id number] ####[facility] ([facility])[address] [place] [address] EOSINOPHILS (10*3/UL) IN BLOOD BY CALCULATION 0.00 10*3/uL Normal 0.00-0.50 [facility] Comment on above: Performed By: #### L [id number] ####[facility] ([facility])[address] [place] [address] EOSINOPHILS/100 LEUKOCYTES IN BLOOD BY AUTOMATED COUNT 0.0 % Normal 0.0-6.0 [facility] Comment on above: Performed By: #### L [id number] ####[facility] ([facility])[address] [place] [address] LYMPHOCYTES (10*3/UL) IN BLOOD BY CALCULATION 2.51 10*3/uL Normal 1.20-4.00 [facility] Comment on above: Performed By: #### L [id number] ####[facility] ([facility])[address] [place] [address] LYMPHOCYTES/100 LEUKOCYTES IN BLOOD BY AUTOMATED COUNT 7.3 % Low 20.0-45.0 [facility] Comment on above: Performed By: #### L [id number] ####[facility] ([facility])[address] [place] [address] MONOCYTES (10*3/UL) IN BLOOD BY CALCUATION 0.93 10*3/uL Normal 0.10-1.00 [facility] Comment on above: Performed By: #### L [id number] ####[facility] ([facility])[address] [place] [address] MONOCYTES/100 LEUKOCYTES IN BLOOD BY AUTOMATED COUNT 2.7 % Low 5.0-12.0 [facility] Comment on above: Performed By: #### L [id number] ####[facility] ([facility])[address] [place] [address] MYELOCYTES (10*3/UL) IN BLOOD BY CALCULATION 0.93 10*3/uL High 0.00 [facility] Comment on above: Performed By: #### L [id number] ####[facility] ([facility])[address] [place] [address] MYELOCYTES/100 LEUKOCYTES IN BLOOD CELLAVISION 2.7 % High 0.0-0.0 [facility] Comment on above: Performed By: #### L [id number] ####[facility] ([facility])[address] [place] [address] NEUTROPHILS (10*3/UL) IN BLOOD BY CALCULATION 30.0 10*3/uL High 1.6-7.6 [facility] Comment on above: Performed By: #### L [id number] ####[facility] ([facility])[address] [place] [address] NEUTROPHILS/100 LEUKOCYTES IN BLOOD BY AUTOMATED COUNT 87.3 % High 40.0-72.0 [facility] Comment on above: Performed By: #### L [id number] ####[facility] ([facility])[address] [place] [address] PLASMA CELLS/100 LEUKOCYTES IN BLOOD 0 % Normal 0 [facility] Comment on above: Performed By: #### L [id number] ####[facility] ([facility])[address] [place] [address] PLATELETS GIANT PRESENCE IN BLOOD BY LIGHT MICROSCOPY Present Normal [facility] Comment on above: Performed By: #### L [id number] ####[facility] ([facility])[address] [place] [address] POIKILOCYTOSIS (PRESENCE) IN BLOOD BY LIGHT MICROSCOPY Slight Normal [facility] Comment on above: Performed By: #### L [id number] ####[facility] ([facility])[address] [place] [address] POLYCHROMASIA IN BLOOD BY LIGHT MICROSCOPY Slight Normal [facility] Comment on above: Performed By: #### L [id number] ####[facility] ([facility])[address] [place] [address] SMUDGE CELLS/100 LEUKOCYTES IN BLOOD CELLAVISION Present Normal [facility] Comment on above: Performed By: #### L [id number] ####[facility] ([facility])[address] [place] [address] VARIANT LYMPHOCYTES (10*3/UL) IN BLOOD BY CALCULATION 0.00 10*3/uL Normal 0.00 [facility] Comment on above: Performed By: #### L [id number] ####[facility] ([facility])[address] [place] [address] VARIANT LYMPHOCYTES/100 LEUKOCYTES IN BLOOD CELLAVISION 0.0 % Normal 0.0-0.0 [facility] Comment on above: Performed By: #### L [id number] ####[facility] ([facility])[address] [place] [address] NURSNOTEon 11-15-2023 NURSNOTE Normal [facility] NURSNOTE Normal [facility] PHOSPHORUSon 11-15-2023 Magnesium [Mass/Vol] 6.0 mg/dL High 2.5-5.0 [facility] Comment on above: Performed By: #### L [id number] ####[facility] ([facility])[address] [place] [address] Magnesium [Mass/Vol] 8.6 mg/dL High 2.5-5.0 [facility] Comment on above: Performed By: #### L [id number] ####[facility] ([facility])[address] [place] [address] POCT GLUCOSE METER UNSOLICIT ED RESULTSon 11-15-2023 Glucose [Mass/Vol] 208 mg/dL High 70-105 [facility] Comment on above: Order Comment: Waive d Testing in the ED is performed under the ED CLIA certificate #[id number]. Result Comment: [facility] Performed By: #### L [id number] ####[facility] ([facility] [place] [address] Glucose [Mass/Vol] 165 mg/dL High 70-105 [facility] Comment on above: Order Comment: Waive d Testing in the ED is performed under the ED CLIA certificate #[id number]. Result Comment: karine [email or web address] Performed By: #### L [id number] ####[facility] ([facility])[address] [place] [address] POCT PERFUSION PANEL UNSOLIC ITED RESULTSon 11-15-2023 CO2 [Moles/Vol] 20.0 mmol/L Low 21.0-29.0 [facility] Comment on above: Performed By: #### L [id number] ####[facility] ([facility])[address] [place] [address] Glucose [Mass/Vol] 210 mg/dL High 70-105 [facility] Comment on above: Performed By: #### L [id number] ####[facility] ([facility])[address] [place] [address] HCO3 (Bld) [Moles/Vol] 18.9 mmol/L Low 23.0-28.0 [facility] Comment on above: Performed By: #### L [id number] ####[facility] ([facility])[address] [place] [address] Hematocrit (Bld) [Volume fraction] 26 % Low 38-51 [facility] Comment on above: Performed By: #### L [id number] ####[facility] ([facility])[address] [place] [address] Hemoglobin (Bld) [Mass/Vol] 8.8 g/dL Low 12.0-17.0 [facility] Comment on above: Performed By: #### L [id number] ####[facility] ([facility])[address] [place] [address] POCT BASE EXCESS -7.0 mmol/L Low -2.0-3.0 [facility] Comment on above: Performed By: #### L [id number] ####[facility] ([facility])[address] [place] [address] POCT IONIZED CALCIUM 1.15 mmol/L Normal 1.12-1.32 [facility] Comment on above: Performed By: #### L [id number] ####[facility] ([facility])[address] [place] [address] POCT PCO2 39.7 mmHg Low 41.0-51.0 [facility] Comment on above: Performed By: #### L [id number] ####[facility] ([facility])[address] [place] [address] POCT PH 7.29 Low 7.31-7.41 [facility] Comment on above: Performed By: #### L [id number] ####[facility] ([facility])[address] [place] [address] POCT PO2 68 mmHg Low 80-105 [facility] Comment on above: Performed By: #### L [id number] ####[facility] ([facility])[address] [place] [address] POCT SO2 91 % Low 95-98 [facility] Comment on above: Performed By: #### L [id number] ####[facility] ([facility])[address] [place] [address] Potassium [Moles/Vol] 3.8 mmol/L Normal 3.5-4.9 [facility] Comment on above: Performed By: #### L [id number] ####[facility] ([facility])[address] [place] [address] Sodium [Moles/Vol] 142 mmol/L Normal 138.0-146.0 [facility] Comment on above: Performed By: #### L [id number] ####[facility] ([facility])[address] [place] [address] POTASSIUM, WHOLE BLOODon Potassium [Moles/Vol] 5.1 mmol/L Normal 3.5-5.1 [facility] Comment on above: Performed By: #### P OTASSIUM, WHOLE BLOOD ####[facility] [id number] [place] [address] [facility] Potassium [Moles/Vol] 3.8 mmol/L Normal 3.5-5.1 [facility] Comment on above: Performed By: #### P OTILIOIUM, WHOLE BLOOD ####[facility] [id number] [place] [address] [facility] Potassium [Moles/Vol] 3.9 mmol/L Normal 3.5-5.1 [facility] Comment on above: Performed By: #### P OTILIOIUM, WHOLE BLOOD ####[facility] [id number] [place] [address] [facility] Potassium [Moles/Vol] 3.1 mmol/L Low 3.5-5.1 [facility] Comment on above: Performed By: #### P RADHA, WHOLE BLOOD ####[facility] RESP[facility] [id number] [place] [address] [facility] PROTIME-INRon 11-15-2023 INR IN PPP BY COAGULATION ASSAY 12.96 Critically high 0.90-1.10 [facility] Comment on above: Result Comment: [facility] P RECOMMENDED INR FOR WARFARIN THERAPY CONDITION INRPROPHYLAXIS OF VENOUS THROMBOSIS 2-3(HIGH-RISK SURGERY)TREATMENT OF VENOUS THROMBOSIS 2-3TREATMENT OF PULMONARY EMBOLISM 2-3PREVENTION OF SYSTEMIC EMBOLISM: 2-3 ACUTE MYOCARDIAL INFARCTION TISSUE HEART VALVES VALVULAR HEART DISEASE ATRIAL FIBRILLATION RECURRENT SYSTEMIC EMBOLISMMECHANICAL HEART VALVE 2.5-3.5 FROM: ORAL ANTICOAGULANTS. MECHANISM OF ACTION, CLINICAL EFFECTIVENESS, AND OPTIMAL THERAPEUTIC RANGE. CHEST 1995;108:231S-246S. Performed By: #### L [id number] ####[facility] ([facility] [place] [address] INR IN PPP BY COAGULATION ASSAY 11.87 Critically high 0.90-1.10 [facility] Comment on above: Result Comment: [facility] P RECOMMENDED INR FOR WARFARIN THERAPY CONDITION INRPROPHYLAXIS OF VENOUS THROMBOSIS 2-3(HIGH-RISK SURGERY)TREATMENT OF VENOUS THROMBOSIS 2-3TREATMENT OF PULMONARY EMBOLISM 2-3PREVENTION OF SYSTEMIC EMBOLISM: 2-3 ACUTE MYOCARDIAL INFARCTION TISSUE HEART VALVES VALVULAR HEART DISEASE ATRIAL FIBRILLATION RECURRENT SYSTEMIC EMBOLISMMECHANICAL HEART VALVE 2.5-3.5 FROM: ORAL ANTICOAGULANTS. MECHANISM OF ACTION, CLINICAL EFFECTIVENESS, AND OPTIMAL THERAPEUTIC RANGE. CHEST 1995;108:231S-246S. Performed By: #### L [id number] ####[facility] ([facility])[address] [place] [address] PROTHROMBIN TIME (PT) IN PPP BY COAGULATION ASSAY 99.2 Seconds Critically high 12.3-14.8 [facility] Comment on above: Performed By: #### L [id number] ####[facility] ([facility])[address] [place] [address] PROTHROMBIN TIME (PT) IN PPP BY COAGULATION ASSAY 92.6 Seconds Critically high 12.3-14.8 [facility] Comment on above: Performed By: #### L [id number] ####[facility] ([facility])[address] [place] [address] SODIUM, WHOLE BLOODon 2023 SODIUM, WHOLE BLOOD 138 Normal 136-145 [facility] Comment on above: Performed By: #### S ODIUM, WHOLE BLOOD ####[facility] RESP[facility] [id number] [place] [address] [place] SODIUM, WHOLE BLOOD 140 Normal 136-145 [facility] Comment on above: Performed By: #### S ODIUM, WHOLE BLOOD ####[facility] RES[facility] [id number] [place] [address] [place] SODIUM, WHOLE BLOOD 142 Normal 136-145 [facility] Comment on above: Performed By: #### S ODIUM, WHOLE BLOOD ####[facility] [id number] [place] [address] [place] SODIUM, WHOLE BLOOD 143 Normal 136-145 [facility] Comment on above: Performed By: #### S ODIUM, WHOLE BLOOD ####[facility] RES[facility] [id number] [place] [address] [place] TROPONIN Ion 11-15-2023 Troponin I.cardiac [Mass/Vol] 0.10 ng/mL High 0.00-0.04 [facility] Comment on above: Performed By: #### L [id number] ####[facility] ([facility])[address] [place] [address] VANCOMYCIN, PEAKon VANCOMYCIN (UG/ML) IN SER/PLAS - PEAK 21.0 ug/mL Normal 20.0-50.0 [facility] Comment on above: Performed By: #### L [id number] ####[facility] ([facility])[address] [place] [address] VITAMIN D 25 HYDROXYon 11-14 CALCIDIOL (25 [place] VITAMIN D3) (NG/ML) IN SER/PLAS 26.1 ng/mL Low 30.0-80.0 [facility] Comment on above: Result Comment: >80. 0 Toxicity possible Performed By: #### L [id number] ####[facility] ([facility])[address] [place] [address] 30on 11-14-2023 30 Normal [facility] 30 Normal [facility] ANESon 11-14-2023 ANES Normal [facility] ARTERIAL BLOOD GAS WITH CO-O XIMETRYon 11-14-2023 Base excess Calc (Bld) [Moles/Vol] 7.0 mmol/L High -2.0-3.0 [facility] Comment on above: Performed By: #### L [id number] ####[facility] RES[facility] [id number] [place] [address] [place] Base excess Calc (Bld) [Moles/Vol] 2.2 mmol/L Normal -2.0-3.0 [facility] Comment on above: Order Comment: Pt in tubated in [place] Performed By: #### L [id number] ####[facility] RESP[facility] [id number] [place] [address] [place] CARBOXYHEMOGLOBIN/HEM OGLOBIN TOTAL % IN BLOOD 1.4 % Normal 0.0-3.0 [facility] Comment on above: Performed By: #### L [id number] ####[facility] RES[facility] [id number] [place] [address] [place] CARBOXYHEMOGLOBIN/HEM OGLOBIN TOTAL % IN BLOOD 1.5 % Normal 0.0-3.0 [facility] Comment on above: Order Comment: Pt in tubated in [place] Performed By: #### L [id number] ####[facility] RESP[facility] [id number] [place] [address] [place] CO2 (Bld) [Partial pressure] 33 mm[Hg] Low 35-48 [facility] Comment on above: Performed By: #### L [id number] ####[facility] RESPIRAT[facility] [id number] [place] [address] [place] CO2 (Bld) [Partial pressure] 39 mm[Hg] Normal 35-48 [facility] Comment on above: Order Comment: Pt in tubated in [place] Performed By: #### L [id number] ####[facility] RES[facility]IR[facility] [id number] [place] [address] [place] DEOXYGENATED HEMOGLOBIN IN BLOOD 1.2 % Normal 1-5 [facility] Comment on above: Performed By: #### L [id number] ####[facility] RESPIR[facility] [id number] [place] [address] [place] DEOXYGENATED HEMOGLOBIN IN BLOOD 0.9 % Low 1-5 [facility] Comment on above: Order Comment: Pt in tubated in [place] Performed By: #### L [id number] ####[facility] RES[facility]IR[facility] [id number] [place] [address] [place] HCO3 (Bld) [Moles/Vol] 29.5 mmol/L High 21.0-28.0 [facility] Comment on above: Performed By: #### L [id number] ####[facility] RES[facility] [id number] [place] [address] [place] HCO3 (Bld) [Moles/Vol] 26.5 mmol/L Normal 21.0-28.0 [facility] Comment on above: Order Comment: Pt in tubated in [place] Performed By: #### L [id number] ####[facility] RES[facility] [id number] [place] [address] [place] Hemoglobin (Bld) [Mass/Vol] 9.7 g/dL Low 11.7-17.4 [facility] Comment on above: Performed By: #### L [id number] ####[facility] RES[facility] [id number] [place] [address] [place] Hemoglobin (Bld) [Mass/Vol] 9.0 g/dL Low 11.7-17.4 [facility] Comment on above: Order Comment: Pt in tubated in [place] Performed By: #### L [id number] ####[facility] RES[facility] [id number] [place] [address] [place] METHEMOGLOBIN/100 IN BLOOD 0.7 % Normal 0.0-1.5 [facility] Comment on above: Performed By: #### L [id number] ####[facility] RES[facility] [id number] [place] [address] [place] METHEMOGLOBIN/100 IN BLOOD 0.2 % Normal 0.0-1.5 [facility] Comment on above: Order Comment: Pt in tubated in [place] Performed By: #### L [id number] ####[facility] RES[facility] [id number] [place] [address] [place] Oxygen (Bld) [Partial pressure] 135 mm[Hg] High 83-100 [facility] Comment on above: Performed By: #### L [id number] ####[facility] [id number] [place] [address] [place] Oxygen (Bld) [Partial pressure] 125 mm[Hg] High 83-100 [facility] Comment on above: Order Comment: Pt in tubated in [place] Performed By: #### L [id number] ####[facility] [id number] [place] [address] [place] OXYGEN SATURATION (%) IN ARTERIAL BLOOD 98.8 % High 94.0-98.0 [facility] Comment on above: Performed By: #### L [id number] ####[facility] [id number] [place] [address] [place] OXYGEN SATURATION (%) IN ARTERIAL BLOOD 99.1 % High 94.0-98.0 [facility] Comment on above: Order Comment: Pt in tubated in [place] Performed By: #### L [id number] ####[facility] [id number] [place] [address] [place] OXYGENATED HEMOGLOBIN IN BLOOD 96.7 % High 90.0-95.0 [facility] Comment on above: Performed By: #### L [id number] ####[facility] [id number] [place] [address] [place] OXYGENATED HEMOGLOBIN IN BLOOD 97.4 % High 90.0-95.0 [facility] Comment on above: Order Comment: Pt in tubated in [place] Performed By: #### L [id number] ####[facility] [id number] [place] [address] [place] pH (Bld) 7.56 [pH] Critically high 7.35-7.45 [facility] Comment on above: Performed By: #### L [id number] ####[facility] [id number] [place] [address] [place] pH (Bld) 7.44 [pH] Normal 7.35-7.45 [facility] Comment on above: Order Comment: Pt in tubated in [place] Performed By: #### L [id number] ####[facility] [facility] [id number] [place] [address] [place] SOURCE OF OXYGEN Vent Normal [facility] Comment on above: Performed By: #### L [id number] ####[facility] [id number] [place] [address] [place] SOURCE OF OXYGEN Vent Normal [facility] Comment on above: Order Comment: Pt in tubated in [place] Performed By: #### L [id number] ####[facility] [id number] [place] [address] [facility] BASIC METABOLIC PANELon 07-0 Anion gap [Moles/Vol] 12 mmol/L Normal 7-20 [facility] Comment on above: Performed By: #### L [id number] ####[facility] HOSPITAL LAB (BEAKER)[address] [place] [address] Calcium [Mass/Vol] 7.4 mg/dL Low 8.6-10.3 [facility] Comment on above: Performed By: #### L [id number] ####[facility] HOSPITAL LAB (BEAKER)[address] [place] [address] Chloride [Moles/Vol] 105 mmol/L Normal 98-107 [facility] Comment on above: Performed By: #### L [id number] ####[facility] HOSPITAL LAB (BEAKER)[address] [place] [address] CO2 [Moles/Vol] 31 mmol/L Normal 21-31 [facility] Comment on above: Performed By: #### L [id number] ####[facility] HOSPITAL LAB (BEAKER)[address] [place] [address] Creatinine [Mass/Vol] 0.91 mg/dL Normal 0.60-1.20 [facility] Comment on above: Performed By: #### L [id number] ####[facility] HOSPITAL LAB (BEAKER)[address] [place] [address] GLOMERULAR FILTRATION RATE ML/MIN/1.73 SQ M.PREDICTED 64.2 mL/min/1.73m*2 Normal >60.0 [facility] Comment on above: Result Comment: [facility]???s estimated glomerular filtration rate (eGFR) will [...] of individuals. Performed By: #### L [id number] ####[facility] ([facility])[address] [place] [address] Glucose [Mass/Vol] 120 mg/dL High 70-100 [facility] Comment on above: Performed By: #### L [id number] ####[facility] ([facility])[address] [place] [address] Potassium [Moles/Vol] 4.1 mmol/L Normal 3.5-5.1 [facility] Comment on above: Performed By: #### L [id number] ####[facility] ([facility])[address] [place] [address] Sodium [Moles/Vol] 144 mmol/L Normal 136-145 [facility] Comment on above: Performed By: #### L [id number] ####[facility] ([facility])[address] [place] [address] Urea nitrogen [Mass/Vol] 24 mg/dL Normal 7-25 [facility] Comment on above: Performed By: #### L [id number] ####[facility] ([facility])[address] [place] [address] UREA NITROGEN/CREATININE (MASS RATIO) IN SER/PLAS 26.4 Normal [facility] Comment on above: Performed By: #### L [id number] ####[facility] ([facility])[address] [place] [address] CALCIUM, IONIZEDon CALCIUM IONIZED (MMOL/L) IN BLOOD 1.17 mmol/L Normal 1.15-1.33 [facility] Comment on above: Performed By: #### C ALCIUM, IONIZED ####[facility] RESPIR[facility] [id number] [place] [address] [place] CBC WITH AUTO DIFFERENTIALon 11-14-2023 Basophils (Bld) [#/Vol] 0.03 10*3/uL Normal 0.00-0.20 [facility] Comment on above: Performed By: #### L [id number] ####[facility] HOSPITAL LAB (BEAKER)[address] [place] [address] Basophils/100 WBC (Bld) 0.4 % Normal 0.0-1.0 [facility] Comment on above: Performed By: #### L [id number] ####[facility] (BEAKER)[address] [place] [address] Eosinophils (Bld) [#/Vol] 0.00 10*3/uL Normal 0.00-0.50 [facility] Comment on above: Performed By: #### L [id number] ####[facility] HOSPITAL LAB (BEAKER)[address] [place] [address] Eosinophils/100 WBC (Bld) 0.0 % Normal 0.0-6.0 [facility] Comment on above: Performed By: #### L [id number] ####[facility] HOSPITAL LAB (BEAKER)[address] [place] [address] Erythrocyte distribution width (RBC) [Ratio] 16.0 % High 11.5-15.0 [facility] Comment on above: Performed By: #### L [id number] ####[facility] HOSPITAL LAB (BEAKER)[address] [place] [address] ERYTHROCYTE MEAN CORPUSCULAR HEMOGLOBIN CONCENTRATION (G/DL) BY AUTOMATED 30.2 g/dL Low 32.0-35.0 [facility] Comment on above: Performed By: #### L [id number] ####[facility] HOSPITAL LAB (BEAKER)[address] [place] [address] Hematocrit (Bld) [Volume fraction] 32.1 % Low 36.0-48.0 [facility] Comment on above: Performed By: #### L [id number] ####[facility] (BEAKER)[address] [place] [address] Hemoglobin (Bld) [Mass/Vol] 9.7 g/dL Low 12.0-15.0 [facility] Comment on above: Performed By: #### L [id number] ####[facility] ([facility] [place] [address] Immature granulocytes (Bld) [#/Vol] 0.07 10*3/uL Normal 0.00-0.20 [facility] Comment on above: Performed By: #### L [id number] ####[facility] ([facility] [place] [address] Immature granulocytes/100 WBC (Bld) 0.8 % Normal 0.0-1.0 [facility] Comment on above: Performed By: #### L [id number] ####[facility] (BEAKER)[address] [place] [address] Lymphocytes (Bld) [#/Vol] 1.34 10*3/uL Normal 1.20-4.00 [facility] Comment on above: Performed By: #### L [id number] ####[facility] (BEAKER)[address] [place] [address] Lymphocytes/100 WBC (Bld) 15.9 % Low 20.0-45.0 [facility] Comment on above: Performed By: #### L [id number] ####[facility] (BEAKER)[address] [place] [address] MCH (RBC) [Entitic mass] 29.1 pg Normal 27.0-33.0 [facility] Comment on above: Performed By: #### L [id number] ####[facility] (BEAKER)[address] [place] [address] MCV (RBC) [Entitic vol] 96.4 fL Normal 82.0-98.0 [facility] Comment on above: Performed By: #### L [id number] ####[facility] ([facility] [place] [address] Monocytes (Bld) [#/Vol] 0.77 10*3/uL Normal 0.10-1.00 [facility] Comment on above: Performed By: #### L [id number] ####[facility] ([facility] [place] [address] Monocytes/100 WBC (Bld) 9.1 % Normal 5.0-12.0 [facility] Comment on above: Performed By: #### L [id number] ####[facility] ([facility])[address] [place] [address] Neutrophils (Bld) [#/Vol] 6.22 10*3/uL Normal 1.60-7.60 [facility] Comment on above: Performed By: #### L [id number] ####[facility] ([facility])[address] [place] [address] Neutrophils/100 WBC (Bld) 73.8 % High 40.0-72.0 [facility] Comment on above: Performed By: #### L [id number] ####[facility] ([facility] [place] [address] NRBC (PER 100 WBCS) BY AUTOMATED COUNT 0.0 % Normal 0 [facility] Comment on above: Performed By: #### L [id number] ####[facility] ([facility] [place] [address] PLATELETS (10*3/UL) IN BLOOD AUTOMATED COUNT 223 10*3/uL Normal 150-400 [facility] Comment on above: Performed By: #### L [id number] ####[facility] (BEAKER)[address] [place] [address] RBC (Bld) [#/Vol] 3.33 10*6/uL Low 3.80-5.00 [facility] Comment on above: Performed By: #### L [id number] ####[facility] ([facility])[address] [place] [address] WBC (Bld) [#/Vol] 8.43 10*3/uL Normal 4.00-10.60 [facility] Comment on above: Performed By: #### L [id number] ####[facility] ([facility])[address] [place] [address] CONSULTon 11-14-2023 CONSULT Normal [facility] HPon 11-14-2023 HP Normal [facility] MAGNESIUMon 11-14-2023 Magnesium [Mass/Vol] 1.7 mg/dL Low 1.9-2.7 [facility] Comment on above: Performed By: #### L [id number] ####[facility] ([facility])[address] [place] [address] OPNOTEon 11-14-2023 OPNOTE [facility] PHOSPHORUSon 11-14-2023 Magnesium [Mass/Vol] 4.5 mg/dL Normal 2.5-5.0 [facility] Comment on above: Performed By: #### L [id number] ####[facility] ([facility])[address] [place] [address] POCT GLUCOSE METER UNSOLICIT ED RESULTSon 11-14-2023 Glucose [Mass/Vol] 111 mg/dL High 70-105 [facility] Comment on above: Order Comment: Waive d Testing in the ED is performed under the ED CLIA certificate #[id number]. Result Comment: lzwo judith Performed By: #### L [id number] ####[facility] ([facility])[address] [facility] [place] [address] Glucose [Mass/Vol] 131 mg/dL High 70-105 [facility] Comment on above: Order Comment: Waive d Testing in the ED is performed under the ED CLIA certificate #[id number]. Result Comment: lzwo judith Performed By: #### L [id number] ####[facility] (BEAKER)[address] [place] [address] Glucose [Mass/Vol] 113 mg/dL High 70-105 [facility] Comment on above: Order Comment: Waive d Testing in the ED is performed under the ED CLIA certificate #[id number]. Result Comment: epoo [email or web address] Performed By: #### L [id number] ####[facility] ([facility])[address] [place] [address] Glucose [Mass/Vol] 120 mg/dL High 70-105 [facility] Comment on above: Order Comment: Waive d Testing in the ED is performed under the ED CLIA certificate #[id number]. Result Comment: epaw low Performed By: #### L [id number] ####[facility] ([facility])[address] [place] [address] Glucose [Mass/Vol] 181 mg/dL High 70-105 [facility] Comment on above: Order Comment: Waive d Testing in the ED is performed under the ED CLIA certificate #[id number]. Result Comment: czyd orc Performed By: #### L [id number] ####[facility] ([facility])[address] [place] [address] POTASSIUM, WHOLE BLOODon Potassium [Moles/Vol] 4.0 mmol/L Normal 3.5-5.1 [facility] Comment on above: Performed By: #### P OTASSIUM, WHOLE BLOOD ####[facility] RESPIR[facility] [id number] [place] [address] [facility] SODIUM, WHOLE BLOODon 2023 SODIUM, WHOLE BLOOD 139 Normal 136-145 [facility] Comment on above: Performed By: #### S ODIUM, WHOLE BLOOD ####[facility] RESPIR[facility] [id number] [place] [address] [facility] APTTon 11-13-2023 ACTIVATED PARTIAL THROMBOPLASTIN TIME IN PPP BY COAGULATION ASSAY 34.0 Seconds Normal 25.0-35.0 [facility] Comment on above: Result Comment: Clin ical significance of the APTT is questionable in the presence of heparin. Performed By: #### L [id number] ####[facility] ([facility])[address] [place] [address] BASIC METABOLIC PANELon 07-0 Anion gap [Moles/Vol] 16 mmol/L Normal 7-20 [facility] Comment on above: Performed By: #### L [id number] ####[facility] ([facility])[address] [place] [address] Calcium [Mass/Vol] 7.8 mg/dL Low 8.6-10.3 [facility] Comment on above: Performed By: #### L [id number] ####[facility] ([facility])[address] [place] [address] Chloride [Moles/Vol] 104 mmol/L Normal 98-107 [facility] Comment on above: Performed By: #### L [id number] ####[facility] ([facility])[address] [place] [address] CO2 [Moles/Vol] 27 mmol/L Normal 21-31 [facility] Comment on above: Performed By: #### L [id number] ####[facility] ([facility])[address] [place] [address] Creatinine [Mass/Vol] 0.91 mg/dL Normal 0.60-1.20 [facility] Comment on above: Performed By: #### L [id number] ####[facility] ([facility])[address] [place] [address] GLOMERULAR FILTRATION RATE ML/MIN/1.73 SQ M.PREDICTED 64.2 mL/min/1.73m*2 Normal >60.0 [facility] Comment on above: Result Comment: [facility]???s estimated glomerular filtration rate (eGFR) will [...] of individuals. Performed By: #### L [id number] ####[facility] ([facility])[address] [place] [address] Glucose [Mass/Vol] 125 mg/dL High 70-100 [facility] Comment on above: Performed By: #### L [id number] ####[facility] ([facility])[address] [place] [address] Potassium [Moles/Vol] 4.4 mmol/L Normal 3.5-5.1 [facility] Comment on above: Performed By: #### L [id number] ####[facility] ([facility])[address] [place] [address] Sodium [Moles/Vol] 143 mmol/L Normal 136-145 [facility] Comment on above: Performed By: #### L [id number] ####[facility] ([facility])[address] [place] [address] Urea nitrogen [Mass/Vol] 23 mg/dL Normal 7-25 [facility] Comment on above: Performed By: #### L [id number] ####[facility] ([facility])[address] [place] [address] UREA NITROGEN/CREATININE (MASS RATIO) IN SER/PLAS 25.3 Normal [facility] Comment on above: Performed By: #### L [id number] ####[facility] ([facility])[address] [place] [address] CBC WITH AUTO DIFFERENTIALon 11-13-2023 Basophils (Bld) [#/Vol] 0.03 10*3/uL Normal 0.00-0.20 [facility] Comment on above: Performed By: #### L [id number] ####[facility] ([facility])[address] [place] [address] Basophils/100 WBC (Bld) 0.3 % Normal 0.0-1.0 [facility] Comment on above: Performed By: #### L [id number] ####[facility] LAB (BEAKER)[address] [place] [address] Eosinophils (Bld) [#/Vol] 0.00 10*3/uL Normal 0.00-0.50 [facility] Comment on above: Performed By: #### L [id number] ####[facility] ([facility])[address] [place] [address] Eosinophils/100 WBC (Bld) 0.0 % Normal 0.0-6.0 [facility] Comment on above: Performed By: #### L [id number] ####[facility] ([facility])[address] [place] [address] Erythrocyte distribution width (RBC) [Ratio] 15.9 % High 11.5-15.0 [facility] Comment on above: Performed By: #### L [id number] ####[facility] ([facility])[address] [place] [address] ERYTHROCYTE MEAN CORPUSCULAR HEMOGLOBIN CONCENTRATION (G/DL) BY AUTOMATED 30.4 g/dL Low 32.0-35.0 [facility] Comment on above: Performed By: #### L [id number] ####[facility] ([facility])[address] [place] [address] Hematocrit (Bld) [Volume fraction] 36.2 % Normal 36.0-48.0 [facility] Comment on above: Performed By: #### L [id number] ####[facility] (BEAKER)[address] [place] [address] Hemoglobin (Bld) [Mass/Vol] 11.0 g/dL Low 12.0-15.0 [facility] Comment on above: Performed By: #### L [id number] ####[facility] (BEAKER)[address] [place] [address] Immature granulocytes (Bld) [#/Vol] 0.09 10*3/uL Normal 0.00-0.20 [facility] Comment on above: Performed By: #### L [id number] ####[facility] (BEAKER)[address] [place] [address] Immature granulocytes/100 WBC (Bld) 0.9 % Normal 0.0-1.0 [facility] Comment on above: Performed By: #### L [id number] ####[facility] (BEAKER)[address] [place] [address] Lymphocytes (Bld) [#/Vol] 1.28 10*3/uL Normal 1.20-4.00 [facility] Comment on above: Performed By: #### L [id number] ####[facility] (BEAKER)[address] [place] [address] Lymphocytes/100 WBC (Bld) 12.4 % Low 20.0-45.0 [facility] Comment on above: Performed By: #### L [id number] ####[facility] (BEAKER)[address] [place] [address] MCH (RBC) [Entitic mass] 28.8 pg Normal 27.0-33.0 [facility] Comment on above: Performed By: #### L [id number] ####[facility] (BEAKER)[address] [place] [address] MCV (RBC) [Entitic vol] 94.8 fL Normal 82.0-98.0 [facility] Comment on above: Performed By: #### L [id number] ####[facility] (BEAKER)[address] [place] [address] Monocytes (Bld) [#/Vol] 0.73 10*3/uL Normal 0.10-1.00 [facility] Comment on above: Performed By: #### L [id number] ####[facility] (BEAKER)[address] [place] [address] Monocytes/100 WBC (Bld) 7.1 % Normal 5.0-12.0 [facility] Comment on above: Performed By: #### L [id number] ####[facility] (BEAKER)[address] [place] [place] [address] Neutrophils (Bld) [#/Vol] 8.21 10*3/uL High 1.60-7.60 [facility] Comment on above: Performed By: #### L [id number] ####[facility] HOSPITAL LAB (BEAKER)[address] [place] [address] Neutrophils/100 WBC (Bld) 79.3 % High 40.0-72.0 [facility] Comment on above: Performed By: #### L [id number] ####[facility] ([facility] [place] [address] NRBC (PER 100 WBCS) BY AUTOMATED COUNT 0.0 % Normal 0 [facility] Comment on above: Performed By: #### L [id number] ####[facility] ([facility])[address] [place] [address] PLATELETS (10*3/UL) IN BLOOD AUTOMATED COUNT 262 10*3/uL Normal 150-400 [facility] Comment on above: Performed By: #### L [id number] ####[facility] ([facility])[address] [place] [address] RBC (Bld) [#/Vol] 3.82 10*6/uL Normal 3.80-5.00 [facility] Comment on above: Performed By: #### L [id number] ####[facility] (BEAKER)[address] [place] [address] WBC (Bld) [#/Vol] 10.34 10*3/uL Normal 4.00-10.60 [facility] Comment on above: Performed By: #### L [id number] ####[facility] ([facility])[address] [place] [address] CONSULTon 11-13-2023 CONSULT Normal [facility] CT FEMUR LEFT WO IV CONTRAST on 11-13-2023 CT FEMUR LEFT WO IV CONTRAST Invalid Interpretation Code [facility] HPon 11-13-2023 HP Normal [facility] MAGNESIUMon 11-13-2023 Magnesium [Mass/Vol] 1.8 mg/dL Low 1.9-2.7 [facility] Comment on above: Performed By: #### L [id number] ####[facility] ([facility] [place] [address] PROTIME-INRon 11-13-2023 INR IN PPP BY COAGULATION ASSAY 1.79 High 0.90-1.10 [facility] Comment on above: Result Comment: ACCC P RECOMMENDED INR FOR WARFARIN THERAPY CONDITION INRPROPHYLAXIS OF VENOUS THROMBOSIS 2-3(HIGH-RISK SURGERY)TREATMENT OF VENOUS THROMBOSIS 2-3TREATMENT OF PULMONARY EMBOLISM 2-3PREVENTION OF SYSTEMIC EMBOLISM: 2-3 ACUTE MYOCARDIAL INFARCTION TISSUE HEART VALVES VALVULAR HEART DISEASE ATRIAL FIBRILLATION RECURRENT SYSTEMIC EMBOLISMMECHANICAL HEART VALVE 2.5-3.5 FROM: ORAL ANTICOAGULANTS. MECHANISM OF ACTION, CLINICAL EFFECTIVENESS, AND OPTIMAL THERAPEUTIC RANGE. CHEST 1995;108:231S-246S. Performed By: #### L [id number] ####[facility] ([facility])[address] [place] [address] PROTHROMBIN TIME (PT) IN PPP BY COAGULATION ASSAY 20.9 Seconds High 12.3-14.8 [facility] Comment on above: Performed By: #### L [id number] ####[facility] (Vivaty)[address] [place] [address] TROPONIN Ion 11-13-2023 Troponin I.cardiac [Mass/Vol] 0.02 ng/mL Normal 0.00-0.04 [facility] Comment on above: Performed By: #### L [id number] ####[facility] ([facility])[address] [place] [address] TYPE AND SCREENon 11-13-2023 AB SCREEN Negative Normal [facility] Comment on above: Performed By: #### L [id number] ####[facility], ABO group Nom (Bld) O Normal [facility] Comment on above: Performed By: #### L [id number] ####[facility], RH TYPE IN BLOOD Positive Normal [facility] Comment on above: Performed By: #### L [id number] ####[facility], VIT D 25-[place] LABCORPon 2022 Vitamin D, 25-Hydroxy 35.9 ng/mL Normal 30.0-100.0 [place] Comment on above: Result Comment: Jadyn min D deficiency has been defined by the [place] of [employer] and an Endocrine Society practice guideline as a level of serum 25-OH vitamin D less than 20 ng/mL (1,2). The Endocrine Society went on to further define vitamin D insufficiency as a level between 21 and 29 ng/mL (2). 1. IOM ([place] of [employer]). 2010. Dietary reference intakes for calcium and D. [place]: The National Academies Press. 2. Yamilex MF, Florecita [place], Stella OTTO, et al. Evaluation, treatment, and prevention of vitamin D deficiency: an Endocrine Society clinical practice guideline. JCEM. 2010; 96(7):1911-30. Performed By: #### V ITADLC #### [facility] [address] [address] [address] Ashwin Key CBC AUTO DIFFon 08-22-2022 BASO # 0.0 103/ul Normal 0.0-0.1 [place] Comment on above: Performed By: #### C BC #### [facility] [address] [address] [address] Ashwin Key Basophils/100 WBC (Bld) 0.5 % Normal 0.2-2.0 [place] Comment on above: Performed By: #### C BC #### [facility] [address] [address] [address] Ashwin Key EO # 0.0 103/ul Normal 0.0-0.7 [facility] Comment on above: Performed By: #### C BC #### [facility] [address] [place] [address] Dr. Ashwin Key Eosinophils/100 WBC (Bld) 0.0 % Critically low 0.9-7.0 [place] Comment on above: Performed By: #### C BC #### [facility] [address] [place] [address] Dr. Ashwin Key Erythrocyte distribution width (RBC) [Ratio] 14.7 % Normal 11.0-15.0 [place] Comment on above: Performed By: #### C BC #### [facility] [address] [place] [address] Dr. Ashwin Key Hematocrit (Bld) [Volume fraction] 38.0 % Normal 36.0-48.0 [place] Comment on above: Performed By: #### C BC #### [facility] [address] [place] [address] Dr. Ashwin Key Hemoglobin (Bld) [Mass/Vol] 11.5 g/dL Critically low 12.0-16.0 [place] Comment on above: Performed By: #### C BC #### [facility] [address] [place] [address] Dr. Ashwin Key IG # 0.01 10e3/ul Normal 0.00-0.03 [place] Comment on above: Performed By: #### C BC #### [facility] [address] [place] [address] Dr. Ashwin Key IG % 0.2 % Normal 0.0-0.5 [facility] Comment on above: Performed By: #### C BC #### [facility] [address] [place] [address] Dr. Ashwin Key LYMPH # 2.1 103/ul Normal 1.2-3.8 [facility] Comment on above: Performed By: #### C BC #### [facility] [address] [place] [address] Dr. Ashwin Key Lymphocytes/100 WBC (Bld) 48.4 % Normal 20.5-60.0 [place] Comment on above: Performed By: #### C BC #### [facility] [address] [place] [address] Dr. Ashwin Key MANUAL DIFF REQ NO Normal [facility] Comment on above: Performed By: #### C BC #### [facility] [address] [place] [address] Dr. Ashwin Key MCH (RBC) [Entitic mass] 28.8 pg Normal 26.7-34.0 [place] Comment on above: Performed By: #### C BC #### [facility] [address] [place] [address] Dr. Ashwin Key MCHC (RBC) [Mass/Vol] 30.3 g/dL Normal 29.9-35.2 [place] Comment on above: Performed By: #### C BC #### [facility] [address] [place] [address] Dr. Ashwin Key MCV (RBC) [Entitic vol] 95.0 fL Normal 81.0-99.0 [place] Comment on above: Performed By: #### C BC #### [facility] [address] [place] [address] Dr. Ashwin Key MONO # 0.4 103/ul Normal 0.3-0.8 [facility] Comment on above: Performed By: #### C BC #### [facility] [address] [place] [address] Dr. Ashwin Key Monocytes/100 WBC (Bld) 9.3 % Normal 1.7-12.0 [facility] Comment on above: Performed By: #### C BC #### [facility] [address] [place] [address] Dr. Ashwin Key NEUT # 1.8 103/ul Normal 1.4-6.5 [place] Comment on above: Performed By: #### C BC #### [facility] [address] [place] [address] Dr. Ashwin Key Neutrophils/100 WBC (Bld) 41.6 % Critically low 43.0-75.0 [place] Comment on above: Performed By: #### C BC #### [facility] [address] [place] [address] Dr. Ashwin Key Platelet mean volume (Bld) [Entitic vol] 10.3 fL Normal 9.5-13.5 [place] Comment on above: Performed By: #### C BC #### [facility] [address] [place] [address] Dr. Ashwin Key PLT 166 103/ul Normal 150-450 [place] Comment on above: Performed By: #### C BC #### [facility] [address] [place] [address] Dr. Ashwin Key RBC 4.00 106/ul Critically low 4.20-5.40 [facility] Comment on above: Performed By: #### C BC #### [facility] [address] [place] [address] Dr. Ashwin Key WBC 4.4 103/ul Normal 4.0-11.0 [place] Comment on above: Performed By: #### C BC #### [facility] [address] [place] [address] Dr. Ashwin Key GLYCOHEMOGLOBIN A1Con 2022 ADA RECOMMENDATION SEE BELOW Normal [facility] Comment on above: Result Comment: ADA RECOMMENDED LIMIT 4.0 - 6.0 ADA THERAPEUTIC TARGET < 7.0 ACTION SUGGESTED > 7.0 Performed By: #### A 1C #### [facility] [address] [place] [address] Dr. Ashwin Key Glucose [Mass/Vol] 105 mg/dL Normal [facility] Comment on above: Performed By: #### A 1C #### [facility] [address] [place] [address] Dr. Ashwin Key HbA1c (Bld) [Mass fraction] 5.3 % Normal 4.5-6.2 [place] Comment on above: Performed By: #### A 1C #### [facility] [address] [place] [address] Dr. Ashwin Key LIPID PROFILEon 08-22-2022 CHOL-HDL RATIO NORM SEE BELOW Normal [facility] Comment on above: Result Comment: 3.3 - 4.4 LOW RISK 4.4 - 7.1 AVERAGE RISK 7.1 - 11.0 MODERATE RISK >11.0 HIGH RISK Performed By: #### U ACSIND, UMICRO #### [facility] [address] [address] [address] Ashwin Key Cholesterol [Mass/Vol] 103 mg/dL Normal <=200 [place] Comment on above: Performed By: #### U ACSIND, UMICRO #### [facility] [address] [address] [address] Ashwin Key Cholesterol in HDL [Mass/Vol] 40 mg/dL Normal 40-60 [place] Comment on above: Performed By: #### U ACSIND, UMICRO #### [facility] [address] [address] [address] Ashwin Key Cholesterol in LDL [Mass/Vol] 51.8 mg/dL Normal [place] Comment on above: Performed By: #### U ACSIND, UMICRO #### [facility] [address] [address] [address] Ashwin Key Cholesterol.total/Cho lesterol in HDL [Mass ratio] 2.6 {ratio} Normal [place] Comment on above: Performed By: #### U ACSIND, UMICRO #### [facility] [address] [address] [address] Ashwin Key HDL NORMAL > or = 60 mg/dl - LO W CARDIOVASCULAR RISK <40 mg/dl - HIGH CARDIOVASCULAR RISK Normal [place] Comment on above: Performed By: #### U ACSIND, UMICRO #### [facility] [address] [address] [address] Ashwin Key LDL CALC NORMAL SEE BELOW Normal [facility] Comment on above: Result Comment: <100 mg/dl OPTIMAL 100 - 129 mg/dl NEAR OR ABOVE OPTIMAL 130 - 159 mg/dl BORDERLINE HIGH 160 - 189 mg/dl HIGH >190 mg/dl VERY HIGH Performed By: #### U ACSIND, UMICRO #### [facility] [address] [address] [address] Ashwin Key Triglyceride [Mass/Vol] 56 mg/dL Normal <=150 [place] Comment on above: Performed By: #### U ACSJAZMIN, UMICRO #### [facility] [address] [address] [address] Ashwin Key VLDL CALC 11.2 mg/dL Normal [place] Comment on above: Performed By: #### U ACSJAZMIN, UMICRO #### [facility] [address] [address] [address] Ashwin Key PROF 14(COMP METB)on 023 Albumin [Mass/Vol] 2.5 g/dL Critically low 3.4-5.0 [facility] Comment on above: Performed By: #### U ACSJAZMIN UMICRO #### [facility] [address] [address] [address] Ashwin Key Albumin/Globulin [Mass ratio] 0.7 {ratio} Normal [place] Comment on above: Performed By: #### U ACSJAZMIN ICRO #### [facility] [address] [address] [address] Ashwin Key ALP [Catalytic activity/Vol] 110 U/L Normal 46-116 [place] Comment on above: Performed By: #### U FILOMENA, ICRO #### [facility] [address] [address] [address] Ashwin Key ALT [Catalytic activity/Vol] 16 U/L Normal 14-59 [place] Comment on above: Performed By: #### U ACSJAZMIN, UMICRO #### [facility] [address] [address] [address] Ashwin Key Anion gap [Moles/Vol] 9.8 mmol/L Normal [place] Comment on above: Performed By: #### U ACSJAZMIN, UMICRO #### [facility] [address] [address] [address] Ashwin Key AST [Catalytic activity/Vol] 13 U/L Critically low 15-37 [place] Comment on above: Performed By: #### U ACSJAZMIN UMICRO #### [facility] [address] [address] [address] Ashwin Key Bilirubin [Mass/Vol] 0.4 mg/dL Normal 0.2-1.0 [place] Comment on above: Performed By: #### U ACSJAZMIN UMICRO #### [facility] [address] [address] [address] Ashwin Key Calcium [Mass/Vol] 8.5 mg/dL Normal 8.5-10.1 [facility] Comment on above: Performed By: #### U ACSJAZMIN UMICRO #### [facility] [address] [place] [address] Dr. Ashwin Key Chloride [Moles/Vol] 108 mmol/L Critically high 98-107 [place] Comment on above: Performed By: #### U ACSJAZMIN UMICRO #### [facility] [address] [address] [address] Ashwin Key CO2 [Moles/Vol] 31.0 mmol/L Normal 21.0-32.0 [facility] Comment on above: Performed By: #### U FILOMENA UMICRO #### [facility] [address] [place] [address] Dr. Ashwin Key Creatinine [Mass/Vol] 0.91 mg/dL Normal 0.55-1.02 [place] Comment on above: Performed By: #### U ACSJAZMIN UMICRO #### [facility] [address] [place] [address] Dr. Ashwin Key EGFR-AF SOUTH AFRICAN >60 Normal >=60 [facility] Comment on above: Performed By: #### U ACSJAZMIN UMICRO #### [facility] [address] [place] [address] Dr. Ashwin Key EGFR-NON AF SOUTH AFRICAN 60 mL/min/1.73m2 Normal >=60 [facility] Comment on above: Performed By: #### U ACSJAZMIN UMICRO #### [facility] [address] [place] [address] Dr. Ashwin Key Globulin (S) [Mass/Vol] 3.5 g/dL Normal [place] Comment on above: Performed By: #### U FILOMENA UMICRO #### [facility] [address] [address] [address] Ashwin Key Glucose [Mass/Vol] 99 mg/dL Normal 74-106 [facility] Comment on above: Performed By: #### U ACSJAZMIN UMICRO #### [facility] [address] [address] [address] Ashwin Key Potassium [Moles/Vol] 3.8 mmol/L Normal 3.5-5.1 [place] Comment on above: Performed By: #### U FILOMENA UMICRO #### [facility] [address] [place] [address] Dr. Ashwin Key Protein [Mass/Vol] 6.0 g/dL Critically low 6.4-8.2 [facility] Comment on above: Performed By: #### U ACSJAZMIN UMICRO #### [facility] [address] [address] [address] Ashwin Key Sodium [Moles/Vol] 145 mmol/L Normal 136-145 [facility] Comment on above: Performed By: #### U FILOMENA, UMICRO #### [facility] [address] [address] [address] Ashwin Key Urea nitrogen [Mass/Vol] 24.0 mg/dL Critically high 7.0-18.0 [place] Comment on above: Performed By: #### U ACSJAZMIN, UMICRO #### [facility] [address] [address] [address] Ashwin Key Urea nitrogen/Creatinine [Mass ratio] 26.4 mg/mg Normal [place] Comment on above: Performed By: #### U ACSJAZMIN, UMICRO #### [facility] [address] [address] [address] Ashwin Key TSHon 08-22-2022 TSH 5.573 uIU/mL Critically high 0.358-3.740 [facility] Comment on above: Performed By: #### U ACSIND, UMICRO #### [facility] [address] [place] [address] Dr. Ashwin Key CBC AUTO DIFFon 08-10-2022 BASO # 0.0 103/ul Normal 0.0-0.1 [place] Comment on above: Performed By: #### C BC #### [facility] [address] [place] [address] Dr. Ashwin Key Basophils/100 WBC (Bld) 0.7 % Normal 0.2-2.0 [place] Comment on above: Performed By: #### C BC #### [facility] [address] [place] [address] Dr. Ashwin Key EO # 0.0 103/ul Normal 0.0-0.7 [place] Comment on above: Performed By: #### C BC #### [facility] [address] [place] [address] Dr. Ashwin Key Eosinophils/100 WBC (Bld) 0.0 % Critically low 0.9-7.0 [place] Comment on above: Performed By: #### C BC #### [facility] [address] [place] [address] Dr. Ashwin Key Erythrocyte distribution width (RBC) [Ratio] 15.1 % Critically high 11.0-15.0 [place] Comment on above: Performed By: #### C BC #### [facility] [address] [place] [address] Dr. Ashwin Key Hematocrit (Bld) [Volume fraction] 38.0 % Normal 36.0-48.0 [place] Comment on above: Performed By: #### C BC #### [facility] [address] [place] [address] Dr. Ashwin Key Hemoglobin (Bld) [Mass/Vol] 11.4 g/dL Critically low 12.0-16.0 [place] Comment on above: Performed By: #### C BC #### [facility] [address] [place] [address] Dr. Ashwin Key IG # 0.02 10e3/ul Normal 0.00-0.03 [place] Comment on above: Performed By: #### C BC #### [facility] [address] [place] [address] Dr. Ashwin Key IG % 0.5 % Normal 0.0-0.5 [place] Comment on above: Performed By: #### C BC #### [facility] [address] [place] [address] Dr. Ashwin Key LYMPH # 2.1 103/ul Normal 1.2-3.8 [place] Comment on above: Performed By: #### C BC #### [facility] [address] [place] [address] Dr. Ashwin Key Lymphocytes/100 WBC (Bld) 48.4 % Normal 20.5-60.0 [place] Comment on above: Performed By: #### C BC #### [facility] [address] [place] [address] Dr. Ashwin Key MANUAL DIFF REQ NO Normal [facility] Comment on above: Performed By: #### C BC #### [facility] [address] [place] [address] Dr. Ashwin Key MCH (RBC) [Entitic mass] 28.8 pg Normal 26.7-34.0 [place] Comment on above: Performed By: #### C BC #### [facility] [address] [place] [address] Dr. Ashwin Key MCHC (RBC) [Mass/Vol] 30.0 g/dL Normal 29.9-35.2 [place] Comment on above: Performed By: #### C BC #### [facility] [address] [place] [address] Dr. Ashwin Key MCV (RBC) [Entitic vol] 96.0 fL Normal 81.0-99.0 [place] Comment on above: Performed By: #### C BC #### [facility] [address] [place] [address] Dr. Ashwin Key MONO # 0.3 103/ul Normal 0.3-0.8 [place] Comment on above: Performed By: #### C BC #### [facility] [address] [address] [address] Ashwin Key Monocytes/100 WBC (Bld) 7.7 % Normal 1.7-12.0 [place] Comment on above: Performed By: #### C BC #### [facility] [address] [address] [address] Ashwin Key NEUT # 1.8 103/ul Normal 1.4-6.5 [place] Comment on above: Performed By: #### C BC #### [facility] [address] [address] [address] Ashwin Key Neutrophils/100 WBC (Bld) 42.7 % Critically low 43.0-75.0 [place] Comment on above: Performed By: #### C BC #### [facility] [address] [place] [address] Dr. Ashwin Key Platelet mean volume (Bld) [Entitic vol] 10.1 fL Normal 9.5-13.5 [place] Comment on above: Performed By: #### C BC #### [facility] [address] [place] [address] Dr. Ashwin Key PLT 156 103/ul Normal 150-450 [place] Comment on above: Performed By: #### C BC #### [facility] [address] [place] [address] Dr. Ashwin Key RBC 3.96 106/ul Critically low 4.20-5.40 [facility] Comment on above: Performed By: #### C BC #### [facility] [address] [place] [address] Dr. Ashwin Key WBC 4.3 103/ul Normal 4.0-11.0 [place] Comment on above: Performed By: #### C BC #### [facility] [address] [place] [address] Dr. Ashwin Key PROF CHEM 8 (BAS METB)on Anion gap [Moles/Vol] 13.3 mmol/L Normal Th [facility] Comment on above: Performed By: #### U ACSJAZMIN UMICRO #### [facility] [address] [address] [address] Ashwin Key Calcium [Mass/Vol] 8.3 mg/dL Critically low 8.5-10.1 [facility] Comment on above: Performed By: #### U ACSJAZMIN UMICRO #### [facility] [address] [address] [address] Ashwin Key Chloride [Moles/Vol] 111 mmol/L Critically high 98-107 [place] Comment on above: Performed By: #### U ACSJAZMIN UMICRO #### [facility] [address] [address] [address] Ashwin Key CO2 [Moles/Vol] 29.9 mmol/L Normal 21.0-32.0 [facility] Comment on above: Performed By: #### U ACSJAZMIN UMICRO #### [facility] [address] [address] [address] Ashwin Key Creatinine [Mass/Vol] 0.92 mg/dL Normal 0.55-1.02 [place] Comment on above: Performed By: #### U ACSJAZMIN UMICRO #### [facility] [address] [address] [address] Ashwin Key EGFR-AF SOUTH AFRICAN >60 Normal >=60 [facility] Comment on above: Performed By: #### U ACSJAZMIN UMICRO #### [facility] [address] [address] [address] Ashwin Key EGFR-NON AF SOUTH AFRICAN 59 mL/min/1.73m2 Critically low >=60 [place] Comment on above: Performed By: #### U ACSJAZMIN UMICRO #### [facility] [address] [address] [address] Ashwin Key Glucose [Mass/Vol] 84 mg/dL Normal 74-106 [facility] Comment on above: Performed By: #### U ACSJAZMIN UMICRO #### [facility] [address] [address] [address] Ashwin Key Potassium [Moles/Vol] 4.2 mmol/L Normal 3.5-5.1 [place] Comment on above: Performed By: #### U FILOMENA UMICRO #### [facility] [address] [address] [address] Ashwin Key Sodium [Moles/Vol] 150 mmol/L Critically high 136-145 [facility] Comment on above: Performed By: #### U FILOMENA UMICRO #### [facility] [address] [place] [address] Dr. Ashwin Key Urea nitrogen [Mass/Vol] 25.0 mg/dL Critically high 7.0-18.0 [place] Comment on above: Performed By: #### U FILOMENA UMICRO #### [facility] [address] [place] [address] Dr. Ashwin Key Urea nitrogen/Creatinine [Mass ratio] 27.2 mg/mg Normal [place] Comment on above: Performed By: #### U FILOMENA UMICRO #### [facility] [address] [place] [address] Dr. Ashwin Key TSHon 08-10-2022 TSH 3.430 uIU/mL Normal 0.358-3.740 [facility] Comment on above: Performed By: #### U FILOMENA, UMICRO #### [facility] [address] [place] [address] Dr. Ashwin Key CULTURE URINEon 08-09-2022 CULTURE URINE Culture Observations : ANSON TO FOLLOW. Normal [facility] Comment on above: Performed By: #### U FILOMENA, UMICRO #### [facility] [address] [place] [address] Dr. 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 Ashwin Key Clarity (U) CLEAR Normal CLEAR [place] Comment on above: Performed By: #### U ACSIND, UMICRO #### [facility] [address] [address] [address] Ashwin Key Color (U) LT. YELLOW Normal YELLOW [place] Comment on above: Performed By: #### U ACSIND, UMICRO #### [facility] [address] [place] [address] Dr. Ashwin Key Glucose Ql (U) Negative Normal NEGATIVE [facility] Comment on above: Performed By: #### U ACSIND, UMICRO #### [facility] [address] [place] [address] Dr. Ashwin Key Hemoglobin Ql (U) TRACE-INTACT Abnormal NEGATIVE [facility] Comment on above: Performed By: #### U ACSIND, UMICRO #### [facility] [address] [place] [address] Dr. Ashwin Key Ketones Ql (U) Negative Normal NEGATIVE [facility] Comment on above: Performed By: #### U ACSJAZMIN, UMICRO #### [facility] [address] [place] [address] Dr. Ashwin Key LEUKOCYTES TRACE Abnormal NEGATIVE [place] Comment on above: Performed By: #### U ACSJAZMIN, UMICRO #### [facility] [address] [place] [address] Dr. Ashwin Key Nitrite Ql (U) Negative Normal NEGATIVE [facility] Comment on above: Performed By: #### U ACSJAZMIN, UMICRO #### [facility] [address] [place] [address] Dr. Ashwin Key pH (U) 5.5 [pH] Normal 5-9 [place] Comment on above: Performed By: #### U ACSJAZMIN, UMICRO #### [facility] [address] [place] [address] Dr. Ashwin Key SPEC GRAVITY <=1.005 Abnormal 1.005-<=1.02 5 [place] Comment on above: Performed By: #### U ACSIND, UMICRO #### [facility] [address] [place] [address] Dr. Ashwin Key UA PROTEIN Negative Normal NEGATIVE/ TRACE [facility] Comment on above: Performed By: #### U ACSJAZMIN, UMICRO #### [facility] [address] [address] [address] Ashwin Key UR MICRO IND INDICATED Normal [facility] Comment on above: Performed By: #### U ACSIND, UMICRO #### [facility] [address] [address] [address] Ashwin Key Urobilinogen Qn (U) 0.2 {Mercedes'U}/dL Normal 0.2 - 1. 0 [facility] Comment on above: Performed By: #### U ACSJAZMIN, UMICRO #### [facility] [address] [place] [address] Dr. Ashwin Key URINE MICROSCOPIC ONLYon AMORPHOUS CRYSTALS FEW Normal [facility] Comment on above: Performed By: #### U ACSJAZMIN, UMICRO #### [facility] [address] [place] [address] Dr. Ashwin Key BACTERIA MODERATE Abnormal NONE SEEN [facility] Comment on above: Performed By: #### U ACSJAZMIN UMICRO #### [facility] [address] [place] [address] Dr. Ashwin Key Bacteria identified Cx Nom (U) INDICATED Normal [facility] Comment on above: Performed By: #### U ACSJAZMIN, UMICRO #### [facility] [address] [place] [address] Dr. Ashwin Key CAST NONE SEEN Normal NONE SEEN [facility] Comment on above: Performed By: #### U ACSIND, UMICRO #### [facility] [address] [address] [address] Ashwin Key Crystals LM Nom (Urine sed) SEEN Abnormal NONE SEEN [place] Comment on above: Performed By: #### U ACSIND, UMICRO #### [facility] [address] [address] [address] Ashwin Key Epithelial cells LM Ql (Urine sed) MANY Abnormal NONE SEEN /RARE [facility] Comment on above: Performed By: #### U ACSJAZMIN UMICRO #### [facility] [address] [address] [address] Ashwin Key MUCOUS NONE SEEN Normal NONE SEEN [place] Comment on above: Performed By: #### U ACSJAZMIN UMICRO #### [facility] [address] [place] [address] Dr. Ashwin Key RBC 0-2 Normal 0-2 [place] Comment on above: Performed By: #### U ACSJAZMIN ICRO #### [facility] [address] [place] [address] Dr. Ashwin Key WBC 2-5 Abnormal NONE SEEN [facility] Comment on above: Performed By: #### [facility] #### [facility] [address] [place] [address] Dr. Ashwin Key CBC AUTO DIFFon 07-11-2022 BASO # 0.0 103/ul Normal 0.0-0.1 [place] Comment on above: Performed By: #### C BC #### [facility] [address] [place] [address] Dr. Ashwin Key Basophils/100 WBC (Bld) 0.5 % Normal 0.2-2.0 [place] Comment on above: Performed By: #### C BC #### [facility] [address] [place] [address] Dr. Ashwin Key EO # 0.0 103/ul Normal 0.0-0.7 [place] Comment on above: Performed By: #### C BC #### [facility] [address] [place] [address] Dr. Ashwin Key Eosinophils/100 WBC (Bld) 0.0 % Critically low 0.9-7.0 [facility] Comment on above: Performed By: #### C BC #### [facility] [address] [place] [address] Dr. Ashwin Key Erythrocyte distribution width (RBC) [Ratio] 14.5 % Normal 11.0-15.0 [place] Comment on above: Performed By: #### C BC #### [facility] [address] [place] [address] Dr. Ashwin Key Hematocrit (Bld) [Volume fraction] 42.5 % Normal 36.0-48.0 [place] Comment on above: Performed By: #### C BC #### [facility] [address] [place] [address] Dr. Ashwin Key Hemoglobin (Bld) [Mass/Vol] 13.1 g/dL Normal 12.0-16.0 [place] Comment on above: Performed By: #### C BC #### [facility] [address] [place] [address] Dr. Ashwin Key IG # 0.02 10e3/ul Normal 0.00-0.03 [place] Comment on above: Performed By: #### C BC #### [facility] [address] [place] [address] Dr. Ashwin Key IG % 0.5 % Normal 0.0-0.5 [place] Comment on above: Performed By: #### C BC #### [facility] [address] [place] [address] Dr. Ashwin Key LYMPH # 2.1 103/ul Normal 1.2-3.8 [place] Comment on above: Performed By: #### C BC #### [facility] [address] [place] [address] Dr. Ashwin Key Lymphocytes/100 WBC (Bld) 48.2 % Normal 20.5-60.0 [place] Comment on above: Performed By: #### C BC #### [facility] [address] [place] [address] Dr. Ashwin Key MANUAL DIFF REQ NO Normal [facility] Comment on above: Performed By: #### C BC #### [facility] [address] [place] [address] Dr. Ashwin Key MCH (RBC) [Entitic mass] 28.4 pg Normal 26.7-34.0 [place] Comment on above: Performed By: #### C BC #### [facility] [address] [place], [place] [id number] Dr. Ashwin Key MCHC (RBC) [Mass/Vol] 30.8 g/dL Normal 29.9-35.2 [facility] Comment on above: Performed By: #### C BC #### [facility] [address] [place] [address] Dr. Ashwin Key MCV (RBC) [Entitic vol] 92.2 fL Normal 81.0-99.0 [facility] Comment on above: Performed By: #### C BC #### [facility] [address] [place] [address] Dr. Ashwin Key MONO # 0.4 103/ul Normal 0.3-0.8 [facility] Comment on above: Performed By: #### C BC #### [facility] [address] [place] [address] Dr. Ashwin Key Monocytes/100 WBC (Bld) 8.7 % Normal 1.7-12.0 [facility] Comment on above: Performed By: #### C BC #### [facility] [address] [place] [address] Dr. Ashwin Key NEUT # 1.8 103/ul Normal 1.4-6.5 [facility] Comment on above: Performed By: #### C BC #### [facility] [address] [place] [address] Dr. Ashwin Key Neutrophils/100 WBC (Bld) 42.1 % Critically low 43.0-75.0 [facility] Comment on above: Performed By: #### C BC #### [facility] [address] [place] [address] Dr. Ashwin Key Platelet mean volume (Bld) [Entitic vol] 10.4 fL Normal 9.5-13.5 [facility] Comment on above: Performed By: #### C BC #### [facility] [address] [place] [address] Dr. Ashwin Key PLT 159 103/ul Normal 150-450 [facility] Comment on above: Performed By: #### C BC #### [facility] [address] [place] [address] Dr. Ashwin Key RBC 4.61 106/ul Normal 4.20-5.40 [place] Comment on above: Performed By: #### C BC #### [facility] [address] [place] [address] Dr. Ashwin Key WBC 4.3 103/ul Normal 4.0-11.0 [place] Comment on above: Performed By: #### C BC #### [facility] [address] [place] [address] Dr. Ashwin Key PROF CHEM 8 (BAS METB)on Anion gap [Moles/Vol] 10.2 mmol/L Normal [facility] Comment on above: Performed By: #### B MP #### [facility] [address] [place] [address] Dr. Ashwin Key Calcium [Mass/Vol] 8.5 mg/dL Normal 8.5-10.1 [facility] Comment on above: Performed By: #### B MP #### [facility] [address] [place] [address] Dr. Ashwin Key Chloride [Moles/Vol] 104 mmol/L Normal 98-107 [place] Comment on above: Performed By: #### B MP #### [facility] [address] [place] [address] Dr. Ashwin Key CO2 [Moles/Vol] 32.6 mmol/L Critically high 21.0-32.0 [place] Comment on above: Performed By: #### B MP #### [facility] [address] [place] [address] Dr. Ashwin Key Creatinine [Mass/Vol] 0.91 mg/dL Normal 0.55-1.02 [facility] Comment on above: Performed By: #### B MP #### [facility] [address] [place] [address] Dr. Ashwin Key EGFR-AF SOUTH AFRICAN >60 Normal >=60 [facility] Comment on above: Performed By: #### B MP #### [facility] [address] [place] [address] Dr. Ashwin Key EGFR-NON AF SOUTH AFRICAN =60 Normal >=60 [place] Comment on above: Performed By: #### B MP #### [facility] [address] [address] [address] Ashwin Key Glucose [Mass/Vol] 89 mg/dL Normal 74-106 [facility] Comment on above: Performed By: #### B MP #### [facility] [address] [address] [address] Ashwin Key Potassium [Moles/Vol] 3.8 mmol/L Normal 3.5-5.1 [place] Comment on above: Performed By: #### B MP #### [facility] [address] [address] [address] Ashwin Key Sodium [Moles/Vol] 143 mmol/L Normal 136-145 [facility] Comment on above: Performed By: #### B MP #### [facility] [address] [address] [address] Ashwin Key Urea nitrogen [Mass/Vol] 26.0 mg/dL Critically high 7.0-18.0 [place] Comment on above: Performed By: #### B MP #### [facility] [address] [address] [address] Ashwin Key Urea nitrogen/Creatinine [Mass ratio] 28.6 mg/mg Normal [place] Comment on above: Performed By: #### B MP #### [facility] [address] [address] [address] Ashwin Key CULTURE URINEon 02-11-2022 CULTURE [...] F Trimethoprim/Sulfameth oxazole <=20 S F Normal [facility] Comment on above: Performed By: #### U JUAN F BUTT #### [facility] [address] [place] [address] Dr. Ashwin Key CBC AUTO DIFFon 02-07-2022 BASO # 0.0 103/ul Normal 0.0-0.1 [place] Comment on above: Performed By: #### C BC #### [facility] [address] [place] [address] Dr. Ashwin Key Basophils/100 WBC (Bld) 0.5 % Normal 0.2-2.0 [place] Comment on above: Performed By: #### C BC #### [facility] [address] [place] [address] Dr. Ashwin Key EO # 0.0 103/ul Normal 0.0-0.7 [place] Comment on above: Performed By: #### C BC #### [facility] [address] [place] [address] Dr. Ashwin Key Eosinophils/100 WBC (Bld) 0.0 % Critically low 0.9-7.0 [place] Comment on above: Performed By: #### C BC #### [facility] [address] [place] [address] Dr. Ashwin Key Erythrocyte distribution width (RBC) [Ratio] 13.4 % Normal 11.0-15.0 [place] Comment on above: Performed By: #### C BC #### [facility] [address] [place] [address] Dr. Ashwin Key Hematocrit (Bld) [Volume fraction] 46.8 % Normal 36.0-48.0 [facility] Comment on above: Performed By: #### C BC #### [facility] [address] [place] [address] Dr. Ashwin Key Hemoglobin (Bld) [Mass/Vol] 14.2 g/dL Normal 12.0-16.0 [place] Comment on above: Performed By: #### C BC #### [facility] [address] [place] [address] Dr. Ashwin Key IG # 0.05 10e3/ul Critically high 0.00-0.03 [facility] Comment on above: Performed By: #### C BC #### [facility] [address] [place] [address] Dr. Ashwin Key IG % 0.6 % Critically high 0.0-0.5 [facility] Comment on above: Performed By: #### C BC #### [facility] [address] [place] [address] Dr. Ashwin Key LYMPH # 2.0 103/ul Normal 1.2-3.8 [place] Comment on above: Performed By: #### C BC #### [facility] [address] [place] [address] Dr. Ashwin Key Lymphocytes/100 WBC (Bld) 22.9 % Normal 20.5-60.0 [place] Comment on above: Performed By: #### C BC #### [facility] [address] [place] [address] Dr. Ashwin Key MANUAL DIFF REQ NO Normal [facility] Comment on above: Performed By: #### C BC #### [facility] [address] [place] [address] Dr. Ashwin Key MCH (RBC) [Entitic mass] 29.1 pg Normal 26.7-34.0 [place] Comment on above: Performed By: #### C BC #### [facility] [address] [place] [address] Dr. Ashwin Key MCHC (RBC) [Mass/Vol] 30.3 g/dL Normal 29.9-35.2 [facility] Comment on above: Performed By: #### C BC #### [facility] [address] [place] [address] Dr. Ashwin Key MCV (RBC) [Entitic vol] 95.9 fL Normal 81.0-99.0 [place] Comment on above: Performed By: #### C BC #### [facility] [address] [place] [address] Dr. Ashwin Key MONO # 0.9 103/ul Critically high 0.3-0.8 [facility] Comment on above: Performed By: #### C BC #### [facility] [address] [place] [address] Dr. Ashwin Key Monocytes/100 WBC (Bld) 10.9 % Normal 1.7-12.0 [place] Comment on above: Performed By: #### C BC #### [facility] [address] [place] [address] Dr. Ashwin Key NEUT # 5.6 103/ul Normal 1.4-6.5 [place] Comment on above: Performed By: #### C BC #### [facility] [address] [place] [address] Dr. Ashwin Key Neutrophils/100 WBC (Bld) 65.1 % Normal 43.0-75.0 [place] Comment on above: Performed By: #### C BC #### [facility] [address] [place] [address] Dr. Ashwin Key Platelet mean volume (Bld) [Entitic vol] 10.6 fL Normal 9.5-13.5 [place] Comment on above: Performed By: #### C BC #### [facility] [address] [place] [address] Dr. Ashwin Key PLT 203 103/ul Normal 150-450 [facility] Comment on above: Performed By: #### C BC #### [facility] [address] [place] [address] Dr. Ashwin Key RBC 4.88 106/ul Normal 4.20-5.40 [facility] Comment on above: Performed By: #### C BC #### [facility] [address] [place] [address] Dr. Ashwin Key WBC 8.6 103/ul Normal 4.0-11.0 [place] Comment on above: Performed By: #### C BC #### [facility] [address] [place] [address] Dr. Ashwin Key PROF 14(COMP METB)on 09-26-2 022 Albumin [Mass/Vol] 3.6 g/dL Normal 3.4-5.0 [facility] Comment on above: Performed By: #### U JUAN F BUTT #### [facility] [address] [place] [address] Dr. Ashwin Key Albumin/Globulin [Mass ratio] 1.2 {ratio} Normal [place] Comment on above: Performed By: #### U JOEY BUTTRO #### [facility] [address] [place] [address] Dr. Ashwin Key ALP [Catalytic activity/Vol] 128 U/L Critically high 46-116 [place] Comment on above: Performed By: #### JOEY DIEGORO #### [facility] [address] [place] [address] Dr. Ashwin Key ALT [Catalytic activity/Vol] 20 U/L Normal 14-59 [place] Comment on above: Performed By: #### JOEY DIEGORO #### [facility] [address] [place] [address] Dr. Ashwin Key Anion gap [Moles/Vol] 12.0 mmol/L Normal [facility] Comment on above: Performed By: #### JOEY DIEGORO #### [facility] [address] [place] [address] Dr. Ashwin Key AST [Catalytic activity/Vol] 18 U/L Normal 15-37 [place] Comment on above: Performed By: #### JOEY DIEGORO #### [facility] [address] [place] [address] Dr. Ashwin Key Bilirubin [Mass/Vol] 0.8 mg/dL Normal 0.2-1.0 [place] Comment on above: Performed By: #### JOEY DIEGORO #### [facility] [address] [place] [address] Dr. Ashwin Key Calcium [Mass/Vol] 8.1 mg/dL Critically low 8.5-10.1 [facility] Comment on above: Performed By: #### JOEY DIEGORO #### [facility] [address] [address] [address] Ashwin Key Chloride [Moles/Vol] 99 mmol/L Normal 98-107 [place] Comment on above: Performed By: #### U ACSIND, UMICRO #### [facility] [address] [address] [address] Ashwin Key CO2 [Moles/Vol] 33.7 mmol/L Critically high 21.0-32.0 [place] Comment on above: Performed By: #### U ACSIND, UMICRO #### [facility] [address] [address] [address] Ashwin Key Creatinine [Mass/Vol] 1.07 mg/dL Critically high 0.55-1.02 [place] Comment on above: Performed By: #### U ACSIND, UMICRO #### [facility] [address] [address] [address] Ashwin Key EGFR-AF SOUTH AFRICAN 60 mL/min/1.73m2 Normal >=60 [facility] Comment on above: Performed By: #### U ACSIND, UMICRO #### [facility] [address] [address] [address] Ashwin Key EGFR-NON AF SOUTH AFRICAN 50 mL/min/1.73m2 Critically low >=60 [place] Comment on above: Performed By: #### U ACSIND, UMICRO #### [facility] [address] [address] [address] Ashwin Key Globulin (S) [Mass/Vol] 3.0 g/dL Normal [place] Comment on above: Performed By: #### U ACSIND, UMICRO #### [facility] [address] [address] [address] Ashwin Key Glucose [Mass/Vol] 76 mg/dL Normal 74-106 [facility] Comment on above: Performed By: #### U ACSIND, UMICRO #### [facility] [address] [address] [address] Ashwin Key Potassium [Moles/Vol] 4.7 mmol/L Normal 3.5-5.1 [place] Comment on above: Performed By: #### U FILOMENA UMICRO #### [facility] [address] [place] [address] Dr. Ashwin Key Protein [Mass/Vol] 6.6 g/dL Normal 6.4-8.2 [facility] Comment on above: Performed By: #### U GURVINDER BUTTICRO #### [facility] [address] [place] [address] Dr. Ashwin Key Sodium [Moles/Vol] 140 mmol/L Normal 136-145 [facility] Comment on above: Performed By: #### U GURVINDER BUTTICRO #### [facility] [address] [place] [address] Dr. Ashwin Key Urea nitrogen [Mass/Vol] 31.0 mg/dL Critically high 7.0-18.0 [place] Comment on above: Performed By: #### U GURVINDER BUTTICRO #### [facility] [address] [place] [address] Dr. Ashwin Key Urea nitrogen/Creatinine [Mass ratio] 29.0 mg/mg Normal [place] Comment on above: Performed By: #### U JOEY BUTTRO #### [facility] [address] [place] [address] Dr. Ashwin Key UA RANDOMon 02-07-2022 Bilirubin Ql (U) Negative Normal NEGATIVE [facility] Comment on above: Performed By: #### U A #### [facility] [address] [place] [address] Dr. Ashwin Key Clarity (U) CLEAR Normal CLEAR [place] Comment on above: Performed By: #### U A #### [facility] [address] [place] [address] Dr. Ashwin Key Color (U) LT. YELLOW Normal YELLOW [place] Comment on above: Performed By: #### U A #### [facility] [address] [place] [address] Dr. Ashwin Key Glucose Ql (U) Negative Normal NEGATIVE [facility] Comment on above: Performed By: #### U A #### [facility] [address] [place] [address] Dr. Ashwin Key Hemoglobin Ql (U) Negative Normal NEGATIVE [facility] Comment on above: Performed By: #### U A #### [facility] [address] [place] [address] Dr. Ashwin Key Ketones Ql (U) TRACE Abnormal NEGATIVE [facility] Comment on above: Performed By: #### U A #### [facility] [address] [place] [address] Dr. Ashwin Key LEUKOCYTES SMALL Abnormal NEGATIVE [place] Comment on above: Performed By: #### U A #### [facility] [address] [place] [address] Dr. Ashwin Key Nitrite Ql (U) Positive Abnormal NEGATIVE [facility] Comment on above: Performed By: #### U A #### [facility] [address] [place] [address] Dr. Ashwin Key pH (U) 6.0 [pH] Normal 5-9 [place] Comment on above: Performed By: #### U A #### [facility] [address] [place] [address] Dr. Ashwin Key SPEC GRAVITY 1.020 Normal 1.005-<=1.02 5 [place] Comment on above: Performed By: #### U A #### [facility] [address] [place] [address] Dr. Ashwin Key UA PROTEIN Negative Normal NEGATIVE/ TRACE [facility] Comment on above: Performed By: #### U A #### [facility] [address] [place] [address] Dr. Ashwin Key Urobilinogen Qn (U) 1.0 {Mercedes'U}/dL Normal 0.2 - 1. 0 [place] Comment on above: Performed By: #### U A #### [facility] [address] [place] [address] Dr. Ashwin Key K (Potassium)on 01-30-2017 Potassium molar conc 4.2 mmol/L Normal 3.7-5.3 [facility] Comment on above: Result Comment: Perf ormed at [address] [place] [address] [phone] Performed By: #### K ####[address] [place] [address] Clinical Notes 11-14-2023 to 12-06-2023 Note Date & Type Note Facility 12-06-2023 Note [facility] 12-06-2023 Note [facility] 12-06-2023 Note [facility] 12-06-2023 Note [facility] 12-06-2023 Note [facility] 12-05-2023 Note [facility] 12-05-2023 Note [facility] 12-05-2023 Note [facility] 12-04-2023 Note [facility] 11-22-2023 Note [facility] 11-21-2023 Note [facility] 11-21-2023 Note Sent updates to [facility] and advised of possible discharge today. [facility] 11-21-2023 Note [facility] 11-20-2023 Note [facility] 11-20-2023 Note [facility] 11-20-2023 Note [facility] 11-20-2023 Note [facility] 11-20-2023 Note [facility] 11-19-2023 Note [facility] 11-19-2023 Note [facility] 11-19-2023 Note [facility] 11-18-2023 Note [facility] 11-18-2023 Note [facility] 11-17-2023 Note [facility] 11-17-2023 Note [facility] 11-17-2023 Note Sent updates to [facility]. Unclear at this point if pt will need pre-cert to return. UPDATE 10:40AM- Advised by [facility] pt is a bed hold and no pre-cert is necessary. [facility] 11-17-2023 Note [facility] 11-17-2023 Note [facility] 11-16-2023 Note [facility] 11-15-2023 Note [facility] 11-15-2023 Note [facility] 11-15-2023 Note [facility] 11-15-2023 Note [facility] 11-15-2023 Note [facility] 11-14-2023 Note [facility] 11-14-2023 Note [facility] 11-14-2023 Note [facility] 11-14-2023 Note [facility] 11-14-2023 Note [facility] 11-14-2023 Note [facility] 11-14-2023 Note [facility] Summary Purpose Family History No Family History [...] pital DATE CREATED AUTHOR AUTHOR'S ORGANIZ ATION 12/07/2023 [facility] FOR RECORDS PERTAINING TO PATIENTS WHO ARE [...] BE BASED ON THE PRIMARY CLINICAL RECORDS. [facility]. provides no warranty or guarantee of the accuracy or completeness of information in this document.
[2023-12-08 08:46] LABS: Basophils Absolute Auto 0.1 10^3/uL (0.0-0.1); Hematocrit 29.8 % (36.0-48.0); Hemoglobin 8.7 g/dL (12.0-16.0); Immature Granulocytes Abs Auto 0.23 10^3/uL (0.00-0.03); Immature Granulocytes Pct Auto 4.4 % (0.0-0.5); Lymphocytes Absolute Auto 1.7 10^3/uL (1.2-3.8); Lymphocytes Percent Auto 32.3 % (20.5-60.0); Mean Corpuscular HGB Conc 29.2 g/dL (29.9-35.2); Mean Corpuscular Volume 102.8 fL (81.0-99.0); Mean Platelet Volume 10.2 fL (9.5-13.5); Monocytes Absolute Auto 0.5 10^3/uL (0.3-0.8); Monocytes Percent Auto 10.3 % (1.7-12.0); Neutrophils Absolute Auto 2.7 10^3/uL (1.4-6.5); Platelet Count 248 10^3/uL (150-450); White Blood Count 5.2 10^3/uL (4.0-11.0)
[2023-12-08 08:57] LABS: Alanine Aminotransferase 18 U/L (14-59); Albumin Globulin Ratio 0.3; Albumin Level 1.3 g/dL (3.4-5.0); Alkaline Phosphatase 105 U/L (46-116); Anion Gap 7.1; Aspartate Amino Transferase 50 U/L (15-37); BUN Creatinine Ratio 24.7; Calcium 7.5 mg/dL (8.5-10.1); Carbon Dioxide 33.5 mmol/L (21.0-32.0); Chloride 105 mmol/L (98-107); Estimated GFR (African America >60 (>=60); Estimated GFR (Non-African Ame >60 (>=60); Globulin 3.9 g/dL; Glucose 75 mg/dL (74-106); Sodium 140 mmol/L (136-145); Total Protein 5.2 g/dL (6.4-8.2)
[2023-12-08 09:24] LABS: Potassium 5.6 mmol/L (3.5-5.1)
[2023-12-08 10:15] LABS: Red Cell Distribution Width 23.2 % (11.0-15.0)
== END 2023-12-08 03:48 | disposition home or self-care (01) ==
LOC: LAB 03:47
PROVIDERS: PCP Family Medicine; Visit Provider Family Medicine
DX: T81.30XA Disruption of wound, unspecified, initial encounter (principal)
CPT/HCPCS: 36415; 80053; 85025

== ENCOUNTER 2023-12-13 04:08 | Outpatient (REF) | payer MEDICARE, MEDICAID, SELFPAY ==
--- OUTSIDE RECORDS SUMMARY | 2023-12-13 04:13 | XMS_ITS | CCD ---
Author Organization [facility] Care Team Providers Care Shipping Clerk/Admin Name Role Phone NEPTALI VILLALTA Unavailable Unavailabl e VILLALTANPETALI CORODVA Unavailable Unavailabl e BETH, DR ROCK Consulting [...] Care Unavailable BETH, DR ROCK Attending Unavailable OSCAR, DARLENE Referring Unavailable HORANI, YUE Admitting Unavailable KIRBY, HARSHA Attending Unavailable KASSANDRA PEREZ Referring Unavailable VELY, AELA Admitting Unavailable VELY, AELA Attending Unavailable SMITHMARILYNER Referring Unavailable CLARISSA SHAFFER Referring Unavailable VELY, AELA Referring Unavailable OLIMPIA LANDRY Referring Unavailable HORANI, YUE Referring Unavailable SMITH, CHRISTOPHER Referring Unavailable VELY, AELA Referring Unavailable VELY, AELA Referring Unavailable DON YUUSF Referring Unavailable KIRBY, HARSHA Referring Unavailable KARL, DOE Referring Unavailable KARL, DOE Referring Unavailable SMITH, CHRISTOPHRAZIA Referring Unavailable Problems Active Problems Problem Classification [...] Reference Range Facility 30on 12-06-2023 30 Normal [facility] CBC WITH AUTO DIFFERENTIALon 12-06-2023 Erythrocyte distribution width (RBC) [Ratio] 22.8 % High 11.5-15.0 [facility] Comment on above: Performed By: #### L [id number] ####[facility] ([facility])[address] [place] [address] ERYTHROCYTE MEAN CORPUSCULAR HEMOGLOBIN CONCENTRATION (G/DL) BY AUTOMATED 29.8 g/dL Low 32.0-35.0 [facility] Comment on above: Performed By: #### L [id number] ####[facility] ([facility])[address] [place] [address] Hematocrit (Bld) [Volume fraction] 30.2 % Low 36.0-48.0 [facility] Comment on above: Performed By: #### L [id number] ####[facility] ([facility])[address] [place] [address] Hemoglobin (Bld) [Mass/Vol] 9.0 g/dL Low 12.0-15.0 [facility] Comment on above: Performed By: #### L [id number] ####[facility] ([facility])[address] [place] [address] MCH (RBC) [Entitic mass] 30.1 pg Normal 27.0-33.0 [facility] Comment on above: Performed By: #### L [id number] ####[facility] ([facility])[address] [place] [address] MCV (RBC) [Entitic vol] 101.0 fL High 82.0-98.0 [facility] Comment on above: Performed By: #### L [id number] ####[facility] ([facility])[address] [place] [address] NRBC (PER 100 WBCS) BY AUTOMATED COUNT 0.0 % Normal 0 [facility] Comment on above: Performed By: #### L [id number] ####[facility] ([facility])[address] [place] [address] PLATELETS (10*3/UL) IN BLOOD AUTOMATED COUNT 285 10*3/uL Normal 150-400 [facility] Comment on above: Performed By: #### L [id number] ####[facility] ([facility])[address] [place] [address] RBC (Bld) [#/Vol] 2.99 10*6/uL Low 3.80-5.00 [facility] Comment on above: Performed By: #### L [id number] ####[facility] ([facility])[address] [place] [address] WBC (Bld) [#/Vol] 6.16 10*3/uL Normal 4.00-10.60 [facility] Comment on above: Performed By: #### L [id number] ####[facility] [place] [address] COMPREHENSIVE METABOLIC PANE Frank 12-06-2023 Albumin [Mass/Vol] 1.9 g/dL Low 3.5-5.7 [facility] Comment on above: Performed By: #### L [id number] ####[facility] [place] [address] ALP [Catalytic activity/Vol] 85 U/L Normal 34-104 [facility] Comment on above: Performed By: #### L [id number] ####[facility] ([facility] [place] [address] ALT [Catalytic activity/Vol] 7 U/L Normal 7-52 [facility] Comment on above: Performed By: #### L [id number] ####[facility] ([facility] [place] [address] Anion gap [Moles/Vol] 9 mmol/L Normal 7-20 [place] Comment on above: Performed By: #### L [id number] ####[facility] [place] [address] AST [Catalytic activity/Vol] 16 U/L Normal 13-39 [facility] Comment on above: Performed By: #### L [id number] ####[facility] ([facility] [place] [address] Bilirubin [Mass/Vol] 0.7 mg/dL Normal 0.3-1.0 [facility] Comment on above: Performed By: #### L [id number] ####[facility] ([facility] [place] [address] Calcium [Mass/Vol] 6.9 mg/dL Low 8.6-10.3 [facility] Comment on above: Performed By: #### L [id number] ####[facility] ([facility]AKER)[address] [place] [address] Chloride [Moles/Vol] 104 mmol/L Normal 98-107 [facility] Comment on above: Performed By: #### L [id number] ####[facility] ([facility])[address] [place] [address] CO2 [Moles/Vol] 28 mmol/L Normal 21-31 [facility] Comment on above: Performed By: #### L [id number] ####[facility] ([facility]ER)[address] [place] [address] Creatinine [Mass/Vol] 0.66 mg/dL Normal 0.60-1.20 [place] Comment on above: Performed By: #### L [id number] ####[facility] ([facility])[address] [place] [address] GLOMERULAR FILTRATION RATE ML/MIN/1.73 SQ M.PREDICTED 89.2 mL/min/1.73m*2 Normal >60.0 [facility] Comment on above: Result Comment: [facility]???s estimated glomerular filtration rate (eGFR) will [...] of individuals. Performed By: #### L [id number] ####[facility] ([facility])[address] [place] [address] Glucose [Mass/Vol] 118 mg/dL High 70-100 [facility] Comment on above: Performed By: #### L [id number] ####[facility] ([facility])[address] [place] [address] Potassium [Moles/Vol] 4.4 mmol/L Normal 3.5-5.1 [place] Comment on above: Performed By: #### L [id number] ####[facility] ([facility])[address] [place] [address] Protein [Mass/Vol] 4.7 g/dL Low 6.0-8.3 [facility] Comment on above: Performed By: #### L [id number] ####[facility] ([facility])[address] [place] [address] Sodium [Moles/Vol] 137 mmol/L Normal 136-145 [facility] Comment on above: Performed By: #### L [id number] ####[facility] ([facility])[address] [place] [address] Urea nitrogen [Mass/Vol] 18 mg/dL Normal 7-25 [facility] Comment on above: Performed By: #### L [id number] ####[facility] ([facility])[address] [place] [address] UREA NITROGEN/CREATININE (MASS RATIO) IN SER/PLAS 27.3 Normal [facility] Comment on above: Performed By: #### L [id number] ####[facility] ([facility])[address] [place] [address] CONSULTon 12-06-2023 CONSULT Normal [facility] DSon 12-06-2023 DS Normal [facility] HEMOGLOBINon 12-06-2023 Hemoglobin (Bld) [Mass/Vol] 7.8 g/dL Low 12.0-15.0 [facility] Comment on above: Performed By: #### L [id number] ####[facility] ([facility])[address] [place] [address] MANUAL DIFFERENTIALon 2023 ANISOCYTOSIS PRESENCE IN BLOOD BY LIGHT MICROSCOPY Moderate Normal [facility] Comment on above: Performed By: #### L [id number] ####[facility] ([facility])[address] [place] [address] BASOPHILS (10*3/UL) IN BLOOD BY CALCULATION 0.02 10*3/uL Normal 0.00-0.20 [facility] Comment on above: Performed By: #### L [id number] ####[facility] ([facility])[address] [place] [address] BASOPHILS/100 LEUKOCYTES IN BLOOD BY AUTOMATED COUNT 0.3 % Normal 0.0-1.0 [facility] Comment on above: Performed By: #### L [id number] ####[facility] ([facility])[address] [place] [address] EOSINOPHILS (10*3/UL) IN BLOOD BY CALCULATION 0.00 10*3/uL Normal 0.00-0.50 [facility] Comment on above: Performed By: #### L [id number] ####[facility] ([facility])[address] [place] [address] EOSINOPHILS/100 LEUKOCYTES IN BLOOD BY AUTOMATED COUNT 0.0 % Normal 0.0-6.0 [facility] Comment on above: Performed By: #### L [id number] ####[facility] ([facility])[address] [place] [address] IMMATURE GRANULOCYTES (10*3/UL) IN BLOOD BY CALCULATION 0.19 10*3/uL Normal 0.00-0.20 [facility] Comment on above: Performed By: #### L [id number] ####[facility] ([facility])[address] [place] [address] IMMATURE GRANULOCYTES/100 LEUKOCYTES IN BLOOD BY AUTOMATED COUNT 3.1 % High 0.0-1.0 [facility] Comment on above: Performed By: #### L [id number] ####[facility] ([facility])[address] [place] [address] LYMPHOCYTES (10*3/UL) IN BLOOD BY CALCULATION 1.03 10*3/uL Low 1.20-4.00 [facility] Comment on above: Performed By: #### L [id number] ####[facility] ([facility])[address] [place] [address] LYMPHOCYTES/100 LEUKOCYTES IN BLOOD BY AUTOMATED COUNT 16.7 % Low 20.0-45.0 [facility] Comment on above: Performed By: #### L [id number] ####[facility] ([facility])[address] [place] [address] MONOCYTES (10*3/UL) IN BLOOD BY CALCUATION 0.47 10*3/uL Normal 0.10-1.00 [facility] Comment on above: Performed By: #### L [id number] ####[facility] ([facility])[address] [place] [address] MONOCYTES/100 LEUKOCYTES IN BLOOD BY AUTOMATED COUNT 7.6 % Normal 5.0-12.0 [facility] Comment on above: Performed By: #### L [id number] ####[facility] [place] [address] NEUTROPHILS (10*3/UL) IN BLOOD BY CALCULATION 4.5 10*3/uL Normal 1.6-7.6 [facility] Comment on above: Performed By: #### L [id number] ####[facility] ([facility] [place] [address] NEUTROPHILS/100 LEUKOCYTES IN BLOOD BY AUTOMATED COUNT 72.3 % High 40.0-72.0 [facility] Comment on above: Performed By: #### L [id number] ####[facility] ([facility])[address] [place] [address] POIKILOCYTOSIS (PRESENCE) IN BLOOD BY LIGHT MICROSCOPY Slight Normal [facility] Comment on above: Performed By: #### L [id number] ####[facility] ([facility])[address] [place] [address] POLYCHROMASIA IN BLOOD BY LIGHT MICROSCOPY Slight Normal [facility] Comment on above: Performed By: #### L [id number] ####[facility] [place] [address] NURSNOTEon 12-06-2023 NURSNOTE Report given to Nikki gallardo of [employer] at [phone]. Report accepted and questions answered. [facility] NURSNOTE Called to place a midline. Pt is getting Meropenum for 13 days. According to our chart that is a PICC line. Dr. Rodriguez ordered a midline and is comfortable with this choice. [facility] 30on 12-05-2023 30 [facility] ANESon 12-05-2023 ANES [facility] BASIC METABOLIC PANELon 11-13 Anion gap [Moles/Vol] 7 mmol/L Normal 7-20 [facility]: Performed By: #### L [id number] ####[facility] ([facility])[address] [place] [address] Calcium [Mass/Vol] 6.7 mg/dL Low 8.6-10.3 [facility] Comment on above: Performed By: #### L [id number] ####[facility] (SANDRA)[address] [place] [address] Chloride [Moles/Vol] 103 mmol/L Normal 98-107 [facility] Comment on above: Performed By: #### L [id number] ####[facility] ([facility])[address] [place] [address] CO2 [Moles/Vol] 32 mmol/L High 21-31 [facility] Comment on above: Performed By: #### L [id number] ####[facility] ([facility])[address] [place] [address] Creatinine [Mass/Vol] 0.73 mg/dL Normal 0.60-1.20 [place] Comment on above: Performed By: #### L [id number] ####[facility] ([facility])[address] [place] [address] GLOMERULAR FILTRATION RATE ML/MIN/1.73 SQ M.PREDICTED 83.6 mL/min/1.73m*2 Normal >60.0 [facility] Comment on above: Result Comment: [facility]???s estimated glomerular filtration rate (eGFR) will [...] of individuals. Performed By: #### L [id number] ####[facility] ([facility])[address] [place] [address] Glucose [Mass/Vol] 173 mg/dL High 70-100 [facility] Comment on above: Performed By: #### L [id number] ####[facility] ([facility]AKER)[address] [place] [address] Potassium [Moles/Vol] 4.2 mmol/L Normal 3.5-5.1 [place] Comment on above: Performed By: #### L [id number] ####[facility] ([facility])[address] [place] [address] Sodium [Moles/Vol] 138 mmol/L Normal 136-145 [facility] Comment on above: Performed By: #### L [id number] ####[facility] ([facility])[address] [place] [address] Urea nitrogen [Mass/Vol] 19 mg/dL Normal 7-25 [facility] Comment on above: Performed By: #### L [id number] ####[facility] ([facility])[address] [place] [address] UREA NITROGEN/CREATININE (MASS RATIO) IN SER/PLAS 26.0 [facility] Comment on above: Performed By: #### L [id number] ####[facility] ([facility])[address] [place] [address] BLOOD CULTUREon 12-05-2023 Bacteria identified Cx Nom (Bld) No growth at 5 days Normal [facility] Comment on above: Order Comment: From a different site than #1. Performed By: #### L [id number] ####[facility] [place] [address] CONSULTon 12-05-2023 CONSULT Normal [facility] CONSULT Normal [facility] HEMOGLOBIN AND HEMATOCRIT, B LOODon 12-05-2023 Hematocrit (Bld) [Volume fraction] 26.2 % Low 36.0-48.0 [facility] Comment on above: Performed By: #### L [id number] ####[facility] [place] [address] Hemoglobin (Bld) [Mass/Vol] 7.3 g/dL Low 12.0-15.0 [facility] Comment on above: Performed By: #### L [id number] ####[facility] ([facility])[address] [place] [address] MAGNESIUMon 12-05-2023 Magnesium [Mass/Vol] 1.6 mg/dL Low 1.9-2.7 [facility] Comment on above: Performed By: #### L [id number] ####[facility] ([facility])[address] [place] [address] MRSA/MSSA DNA NASALon 2023 MRSA DNA Negative Normal Negative [facility] Comment on above: Order Comment: Lamin [...] preclude nasal colonization. Performed By: #### L [id number] ####[facility] ([facility])[address] [place] [address] MSSA DNA Negative Normal Negative [facility] Comment on above: Order Comment: Lamin [...] preclude nasal colonization. Performed By: #### L [id number] ####[facility] ([facility])[address] [place] [address] NURSNOTEon 12-05-2023 NURSNOTE Normal [facility] OPNOTEon 12-05-2023 OPNOTE Normal [facility] POCT GLUCOSE METER UNSOLICIT ED RESULTSon 07-23-2024 Glucose [Mass/Vol] 76 mg/dL Normal 70-105 [facility] Comment on above: Order Comment: Waive d Testing in the ED is performed under the ED CLIA certificate #[id number]. Result Comment: [facility] Performed By: #### L [id number] ####[facility] ([facility])[address] [place] [address] TROPONIN Ion 12-05-2023 Troponin I.cardiac [Mass/Vol] 0.01 ng/mL Normal 0.00-0.04 [facility] Comment on above: Performed By: #### L [id number] ####[facility] ([facility])[address] [place] [address] ANESon 12-04-2023 ANES Normal [facility] APTTon 12-04-2023 ACTIVATED PARTIAL THROMBOPLASTIN TIME IN PPP BY COAGULATION ASSAY 33.8 Seconds Normal 25.0-35.0 [facility] Comment on above: Result Comment: Clin ical significance of the APTT is questionable in the presence of heparin. Performed By: #### L [id number] ####[facility] ([facility])[address] [place] [address] BASIC METABOLIC PANELon 11-13 Anion gap [Moles/Vol] 9 mmol/L Normal 7-20 [place] Comment on above: Performed By: #### L [id number] ####[facility] ([facility])[address] [place] [address] Calcium [Mass/Vol] 6.9 mg/dL Low 8.6-10.3 [facility] Comment on above: Performed By: #### L [id number] ####[facility] [place] [address] Chloride [Moles/Vol] 102 mmol/L Normal 98-107 [facility] Comment on above: Performed By: #### L [id number] ####[facility] [place] [address] CO2 [Moles/Vol] 32 mmol/L High 21-31 [facility] Comment on above: Performed By: #### L [id number] ####[facility] ([facility])[address] [place] [address] Creatinine [Mass/Vol] 0.66 mg/dL Normal 0.60-1.20 [place] Comment on above: Performed By: #### L [id number] ####[facility] ([facility])[address] [place] [address] GLOMERULAR FILTRATION RATE ML/MIN/1.73 SQ M.PREDICTED 89.2 mL/min/1.73m*2 Normal >60.0 [facility] Comment on above: Result Comment: [facility]???s estimated glomerular filtration rate (eGFR) will [...] of individuals. Performed By: #### L [id number] ####[facility] ([facility])[address] [place] [address] Glucose [Mass/Vol] 95 mg/dL Normal 70-100 [facility] Comment on above: Performed By: #### L [id number] ####[facility] ([facility])[address] [place] [address] Potassium [Moles/Vol] 4.1 mmol/L Normal 3.5-5.1 [place] Comment on above: Performed By: #### L [id number] ####[facility] ([facility])[address] [place] [address] Sodium [Moles/Vol] 139 mmol/L Normal 136-145 [facility] Comment on above: Performed By: #### L [id number] ####[facility] ([facility]ER)[address] [place] [address] Urea nitrogen [Mass/Vol] 21 mg/dL Normal 7-25 [facility] Comment on above: Performed By: #### L [id number] ####[facility] ([facility])[address] [place] [address] UREA NITROGEN/CREATININE (MASS RATIO) IN SER/PLAS 31.8 Normal [facility] Comment on above: Performed By: #### L [id number] ####[facility] ([facility])[address] [place] [address] C-REACTIVE PROTEINon 024 C REACTIVE PROTEIN (MG/L) IN SER/PLAS 55.8 mg/L High 0.0-7.0 [facility] Comment on above: Performed By: #### L [id number] ####[facility] ([facility])[address] [place] [address] CBC WITH AUTO DIFFERENTIALon 12-04-2023 Erythrocyte distribution width (RBC) [Ratio] 23.4 % High 11.5-15.0 [facility] Comment on above: Performed By: #### L [id number] ####[facility] ([facility])[address] [place] [address] ERYTHROCYTE MEAN CORPUSCULAR HEMOGLOBIN CONCENTRATION (G/DL) BY AUTOMATED 28.7 g/dL Low 32.0-35.0 [facility] Comment on above: Performed By: #### L [id number] ####[facility] ([facility])[address] [place] [address] Hematocrit (Bld) [Volume fraction] 31.0 % Low 36.0-48.0 [facility] Comment on above: Performed By: #### L [id number] ####[facility] ([facility])[address] [place], [place] [address] Hemoglobin (Bld) [Mass/Vol] 8.9 g/dL Low 12.0-15.0 [facility] Comment on above: Performed By: #### L [id number] ####[facility] ([facility])[address] [place] [address] MCH (RBC) [Entitic mass] 29.3 pg Normal 27.0-33.0 [facility] Comment on above: Performed By: #### L [id number] ####[facility] ([facility])[address] [address] MCV (RBC) [Entitic vol] 102.0 fL High 82.0-98.0 [facility] Comment on above: Performed By: #### L [id number] ####[facility] ([facility])[address] [place] [address] NRBC (PER 100 WBCS) BY AUTOMATED COUNT 0.0 % Normal 0 [facility] Comment on above: Performed By: #### L [id number] ####[facility] ([facility])[address] [place] [address] PLATELETS (10*3/UL) IN BLOOD AUTOMATED COUNT 328 10*3/uL Normal 150-400 [facility] Comment on above: Performed By: #### L [id number] ####[facility] ([facility])[address] [place] [address] RBC (Bld) [#/Vol] 3.04 10*6/uL Low 3.80-5.00 [facility] Comment on above: Performed By: #### L [id number] ####[facility] ([facility])[address] [place] [address] WBC (Bld) [#/Vol] 5.47 10*3/uL Normal 4.00-10.60 [facility] Comment on above: Performed By: #### L [id number] ####[facility] ([facility])[address] [place] [address] CONSULTon 12-04-2023 CONSULT Normal [facility] EDNURSon 12-04-2023 EDNURS Normal [facility] EDPROVon 12-04-2023 EDPROV Normal [facility] MANUAL DIFFERENTIALon 2023 ANISOCYTOSIS PRESENCE IN BLOOD BY LIGHT MICROSCOPY Moderate Normal [facility] Comment on above: Performed By: #### L [id number] ####[facility] ([facility])[address] [place] [address] BASOPHILS (10*3/UL) IN BLOOD BY CALCULATION 0.02 10*3/uL Normal 0.00-0.20 [facility] Comment on above: Performed By: #### L [id number] ####[facility] ([facility])[address] [place] [address] BASOPHILS/100 LEUKOCYTES IN BLOOD BY AUTOMATED COUNT 0.4 % Normal 0.0-1.0 [facility] Comment on above: Performed By: #### L [id number] ####[facility] ([facility])[address] [place] [address] EOSINOPHILS (10*3/UL) IN BLOOD BY CALCULATION 0.00 10*3/uL Normal 0.00-0.50 [facility] Comment on above: Performed By: #### L [id number] ####[facility] ([facility])[address] [place] [address] EOSINOPHILS/100 LEUKOCYTES IN BLOOD BY AUTOMATED COUNT 0.0 % Normal 0.0-6.0 [facility] Comment on above: Performed By: #### L [id number] ####[facility] ([facility])[address] [place] [address] HYPOCHROMIA (PRESENCE) IN BLOOD BY LIGHT MICROSCOPY Moderate Normal [facility] Comment on above: Performed By: #### L [id number] ####[facility] ([facility])[address] [place] [address] IMMATURE GRANULOCYTES (10*3/UL) IN BLOOD BY CALCULATION 0.08 10*3/uL Normal 0.00-0.20 [facility] Comment on above: Performed By: #### L [id number] ####[facility] ([facility])[address] [place] [address] IMMATURE GRANULOCYTES/100 LEUKOCYTES IN BLOOD BY AUTOMATED COUNT 1.5 % High 0.0-1.0 [facility] Comment on above: Performed By: #### L [id number] ####[facility] [place] [address] LYMPHOCYTES (10*3/UL) IN BLOOD BY CALCULATION 0.83 10*3/uL Low 1.20-4.00 [facility] Comment on above: Performed By: #### L [id number] ####[facility] [place] [address] LYMPHOCYTES/100 LEUKOCYTES IN BLOOD BY AUTOMATED COUNT 15.2 % Low 20.0-45.0 [facility] Comment on above: Performed By: #### L [id number] ####[facility] ([facility])[address] [place] [address] MONOCYTES (10*3/UL) IN BLOOD BY CALCUATION 0.45 10*3/uL Normal 0.10-1.00 [facility] Comment on above: Performed By: #### L [id number] ####[facility] ([facility])[address] [place] [address] MONOCYTES/100 LEUKOCYTES IN BLOOD BY AUTOMATED COUNT 8.2 % Normal 5.0-12.0 [facility] Comment on above: Performed By: #### L [id number] ####[facility] ([facility])[address] [place] [address] NEUTROPHILS (10*3/UL) IN BLOOD BY CALCULATION 4.1 10*3/uL Normal 1.6-7.6 [facility] Comment on above: Performed By: #### L [id number] ####[facility] [place] [address] NEUTROPHILS/100 LEUKOCYTES IN BLOOD BY AUTOMATED COUNT 74.7 % High 40.0-72.0 [facility] Comment on above: Performed By: #### L [id number] ####[facility] [place] [address] POIKILOCYTOSIS (PRESENCE) IN BLOOD BY LIGHT MICROSCOPY Slight Normal [facility] Comment on above: Performed By: #### L [id number] ####[facility] [place] [address] POLYCHROMASIA IN BLOOD BY LIGHT MICROSCOPY Slight Normal [facility] Comment on above: Performed By: #### L [id number] ####[facility] ([facility])[address] [place] [address] PROTIME-INRon 12-04-2023 INR IN PPP BY COAGULATION ASSAY 1.58 High 0.90-1.10 [facility] Comment on above: Result Comment: ACCC [...] CHEST 1995;[id number]. Performed By: #### L [id number] ####[facility] ([facility])[address] [place] [address] PROTHROMBIN TIME (PT) IN PPP BY COAGULATION ASSAY 18.6 Seconds High 12.3-14.8 [facility] Comment on above: Performed By: #### L [id number] ####[facility] ([facility])[address] [place] [address] SEDIMENTATION RATEon 12-03-2 024 SEDIMENTATION RATE, ERYTHROCYTE 85 mm/hr High <=20 [facility] Comment on above: Performed By: #### L [id number] ####[facility] ([facility])[address] [place] [address] TYPE AND SCREENon 12-04-2023 AB SCREEN Negative Normal [facility] Comment on above: Order Comment: Add o n Performed By: #### L [id number] ####[facility] BLOOD BANK, ABO group Nom (Bld) O Normal [facility] Comment on above: Order Comment: Add o n Performed By: #### L [id number] ####[facility] BLOOD [facility]ANK, RH TYPE IN BLOOD Positive Normal [facility] Comment on above: Order Comment: Add o n Performed By: #### L [id number] ####[facility] BLOOD BANK, 36on 12-01-2023 36 [facility] 36 ANY[employer] SUPER[employer] COMMUNICATIONS- [phone] PLEASE GIVE ANYA A CALL BACK REGARDING POST OP PROTOCAL , UNBALE TO MAKE POST OP APPOINTMENTS HERE AT [facility] 36on 11-23-2023 36 [facility] Telephoneon 11-23-2023 Telephone [facility] 30on 11-22-2023 30 [facility] BASIC METABOLIC PANELon 11-12 Anion gap [Moles/Vol] 8 mmol/L Normal 7-20 [place] Comment on above: Performed By: #### L [id number] ####[facility] ([facility])[address] [place] [address] Calcium [Mass/Vol] 6.7 mg/dL Low 8.6-10.3 [facility] Comment on above: Performed By: #### L [id number] ####[facility] ([facility])[address] [place] [address] Chloride [Moles/Vol] 106 mmol/L Normal 98-107 [facility] Comment on above: Performed By: #### L [id number] ####[facility] ([facility])[address] [place] [address] CO2 [Moles/Vol] 29 mmol/L Normal 21-31 [facility] Comment on above: Performed By: #### L [id number] ####[facility] ([facility])[address] [place] [address] Creatinine [Mass/Vol] 0.84 mg/dL Normal 0.60-1.20 [place] Comment on above: Performed By: #### L [id number] ####[facility] ([facility])[address] [place] [address] GLOMERULAR FILTRATION RATE ML/MIN/1.73 SQ M.PREDICTED 70.6 mL/min/1.73m*2 Normal >60.0 [facility] Comment on above: Result Comment: [facility]???s estimated glomerular filtration rate (eGFR) will [...] of individuals. Performed By: #### L [id number] ####[facility] ([facility])[address] [place] [address] Glucose [Mass/Vol] 87 mg/dL Normal 70-100 [facility] Comment on above: Performed By: #### L [id number] ####[facility] ([facility])[address] [place] [address] Potassium [Moles/Vol] 4.2 mmol/L Normal 3.5-5.1 [place] Comment on above: Performed By: #### L [id number] ####[facility] ([facility])[address] [place] [address] Sodium [Moles/Vol] 139 mmol/L Normal 136-145 [facility] Comment on above: Performed By: #### L [id number] ####[facility] ([facility])[address] [place] [address] Urea nitrogen [Mass/Vol] 34 mg/dL High 7-25 [facility] Comment on above: Performed By: #### L [id number] ####[facility] ([facility])[address] [place] [address] UREA NITROGEN/CREATININE (MASS RATIO) IN SER/PLAS 40.5 Normal [facility] Comment on above: Performed By: #### L [id number] ####[facility] ([facility])[address] [place] [address] CBC WITH AUTO DIFFERENTIALon 11-22-2023 Erythrocyte distribution width (RBC) [Ratio] 22.2 % High 11.5-15.0 [facility] Comment on above: Performed By: #### L [id number] ####[facility] ([facility])[address] [place] [address] ERYTHROCYTE MEAN CORPUSCULAR HEMOGLOBIN CONCENTRATION (G/DL) BY AUTOMATED 31.5 g/dL Low 32.0-35.0 [facility] Comment on above: Performed By: #### L [id number] ####[facility] ([facility])[address] [place] [address] Hematocrit (Bld) [Volume fraction] 26.0 % Low 36.0-48.0 [facility] Comment on above: Performed By: #### L [id number] ####[facility] ([facility])[address] [place] [address] Hemoglobin (Bld) [Mass/Vol] 8.2 g/dL Low 12.0-15.0 [facility] Comment on above: Performed By: #### L [id number] ####[facility] ([facility])[address] [place] [address] MCH (RBC) [Entitic mass] 30.4 pg Normal 27.0-33.0 [facility] Comment on above: Performed By: #### L [id number] ####[facility] ([facility])[address] [place] [address] MCV (RBC) [Entitic vol] 96.3 fL Normal 82.0-98.0 [facility] Comment on above: Performed By: #### L [id number] ####[facility] ([facility])[address] [place] [address] NRBC (PER 100 WBCS) BY AUTOMATED COUNT 2.0 % High 0 [facility] Comment on above: Performed By: #### L [id number] ####[facility] [place] [address] PLATELETS (10*3/UL) IN BLOOD AUTOMATED COUNT 136 10*3/uL Low 150-400 [facility] Comment on above: Performed By: #### L [id number] ####[facility] ([facility])[address] [place] [address] RBC (Bld) [#/Vol] 2.70 10*6/uL Low 3.80-5.00 [facility] Comment on above: Performed By: #### L [id number] ####[facility] ([facility])[address] [place] [address] WBC (Bld) [#/Vol] 10.20 10*3/uL Normal 4.00-10.60 [facility] Comment on above: Performed By: #### L [id number] ####[facility] ([facility])[address] [place] [address] CONSULTon 11-22-2023 CONSULT Normal [facility] MAGNESIUMon 11-22-2023 Magnesium [Mass/Vol] 2.0 mg/dL Normal 1.9-2.7 [facility] Comment on above: Performed By: #### L [id number] ####[facility] ([facility])[address] [place] [address] MANUAL DIFFERENTIALon 2023 ANISOCYTOSIS PRESENCE IN BLOOD BY LIGHT MICROSCOPY Moderate Normal [facility] Comment on above: Performed By: #### L [id number] ####[facility] [place] [address] BASOPHILS (10*3/UL) IN BLOOD BY CALCULATION 0.00 10*3/uL Normal 0.00-0.20 [facility] Comment on above: Performed By: #### L [id number] ####[facility] ([facility])[address] [place] [address] BASOPHILS/100 LEUKOCYTES IN BLOOD BY AUTOMATED COUNT 0.0 % Normal 0.0-1.0 [facility] Comment on above: Performed By: #### L [id number] ####[facility] ([facility])[address] [place] [address] EOSINOPHILS (10*3/UL) IN BLOOD BY CALCULATION 0.00 10*3/uL Normal 0.00-0.50 [facility] Comment on above: Performed By: #### L [id number] ####[facility] ([facility])[address] [place] [address] EOSINOPHILS/100 LEUKOCYTES IN BLOOD BY AUTOMATED COUNT 0.0 % Normal 0.0-6.0 [facility] Comment on above: Performed By: #### L [id number] ####[facility] ([facility])[address] [place] [address] LYMPHOCYTES (10*3/UL) IN BLOOD BY CALCULATION 1.55 10*3/uL Normal 1.20-4.00 [facility] Comment on above: Performed By: #### L [id number] ####[facility] ([facility])[address] [place] [address] LYMPHOCYTES/100 LEUKOCYTES IN BLOOD BY AUTOMATED COUNT 15.2 % Low 20.0-45.0 [facility] Comment on above: Performed By: #### L [id number] ####[facility] ([facility])[address] [place] [address] MACROCYTES (PRESENCE) IN BLOOD BY LIGHT MICROSCOPY Slight Normal [facility] Comment on above: Performed By: #### L [id number] ####[facility] ([facility])[address] [place] [address] METAMYELOCYTES (10*3/UL) IN BLOOD BY CALCULATION 0.70 10*3/uL High 0.00 [facility] Comment on above: Performed By: #### L [id number] ####[facility] ([facility])[address] [place] [address] METAMYELOCYTES/100 LEUKOCYTES IN BLOOD CELLAVISION 6.9 % High 0.0-0.0 [facility] Comment on above: Performed By: #### L [id number] ####[facility] ([facility])[address] [place] [address] MONOCYTES (10*3/UL) IN BLOOD BY CALCUATION 0.29 10*3/uL Normal 0.10-1.00 [facility] Comment on above: Performed By: #### L [id number] ####[facility] ([facility])[address] [place] [address] MONOCYTES/100 LEUKOCYTES IN BLOOD BY AUTOMATED COUNT 2.8 % Low 5.0-12.0 [facility] Comment on above: Performed By: #### L [id number] ####[facility] ([facility])[address] [place] [address] MYELOCYTES (10*3/UL) IN BLOOD BY CALCULATION 0.49 10*3/uL High 0.00 [facility] Comment on above: Performed By: #### L [id number] ####[facility] ([facility])[address] [place] [address] MYELOCYTES/100 LEUKOCYTES IN BLOOD CELLAVISION 4.8 % High 0.0-0.0 [facility] Comment on above: Performed By: #### L [id number] ####[facility] ([facility])[address] [place] [address] NEUTROPHILS (10*3/UL) IN BLOOD BY CALCULATION 7.1 10*3/uL Normal 1.6-7.6 [facility] Comment on above: Performed By: #### L [id number] ####[facility] ([facility])[address] [place] [address] NEUTROPHILS/100 LEUKOCYTES IN BLOOD BY AUTOMATED COUNT 69.6 % Normal 40.0-72.0 [facility] Comment on above: Performed By: #### L [id number] ####[facility] ([facility])[address] [place] [address] NUCLEATED RED BLOOD CELLS IN BLOOD BY LIGHT MICROSCOPY Present Normal [facility] Comment on above: Performed By: #### L [id number] ####[facility] ([facility])[address] [place] [address] PLASMA CELLS/100 LEUKOCYTES IN BLOOD 0 % Normal 0 [facility] Comment on above: Performed By: #### L [id number] ####[facility] ([facility])[address] [place] [address] PLATELETS GIANT PRESENCE IN BLOOD BY LIGHT MICROSCOPY Present Normal [facility] Comment on above: Performed By: #### L [id number] ####[facility] ([facility])[address] [place] [address] POIKILOCYTOSIS (PRESENCE) IN BLOOD BY LIGHT MICROSCOPY Slight Normal [facility] Comment on above: Performed By: #### L [id number] ####[facility] ([facility])[address] [place] [address] POLYCHROMASIA IN BLOOD BY LIGHT MICROSCOPY Slight Normal [facility] Comment on above: Performed By: #### L [id number] ####[facility] ([facility])[address] [place] [address] PROMYELOCYTES (10*3/UL) IN BLOOD BY CALCULATION 0.07 10*3/uL High 0.00 [facility] Comment on above: Performed By: #### L [id number] ####[facility] ([facility])[address] [place] [address] PROMYELOCYTES/100 LEUKOCYTES IN BLOOD CELLAVISION 0.7 % High 0.0-0.0 [facility] Comment on above: Performed By: #### L [id number] ####[facility] ([facility])[address] [place] [address] VARIANT LYMPHOCYTES (10*3/UL) IN BLOOD BY CALCULATION 0.00 10*3/uL Normal 0.00 [facility] Comment on above: Performed By: #### L [id number] ####[facility] ([facility])[address] [place] [address] VARIANT LYMPHOCYTES/100 LEUKOCYTES IN BLOOD CELLAVISION 0.0 % Normal 0.0-0.0 [facility] Comment on above: Performed By: #### L [id number] ####[facility] ([facility])[address] [place] [address] NURSNOTEon 11-22-2023 NURSNOTE Report given to ms rojas from [facility]. Two rings found inside patient's chart are placed back onto patient's fingers. Patient aware of the rings back on her finger. Normal [facility] PHOSPHORUSon 11-22-2023 Magnesium [Mass/Vol] 2.3 mg/dL Low 2.5-5.0 [facility] Comment on above: Performed By: #### L [id number] ####[facility] ([facility])[address] [place] [address] PROTIME-INRon 11-22-2023 INR IN PPP BY COAGULATION ASSAY 1.22 High 0.90-1.10 [facility] Comment on above: Result Comment: ACCC [...] CHEST 1995;[id number]. Performed By: #### L [id number] ####[facility] [place] [address] PROTHROMBIN TIME (PT) IN PPP BY COAGULATION ASSAY 15.5 Seconds High 12.3-14.8 [facility] Comment on above: Performed By: #### L [id number] ####[facility] ([facility])[address] [place] [address] BASIC METABOLIC PANELon 07-0 Anion gap [Moles/Vol] 10 mmol/L Normal 7-20 [place] Comment on above: Performed By: #### L [id number] ####[facility] ([facility])[address] [place] [address] Calcium [Mass/Vol] 7.4 mg/dL Low 8.6-10.3 [facility] Comment on above: Performed By: #### L [id number] ####[facility] ([facility])[address] [place] [address] Chloride [Moles/Vol] 104 mmol/L Normal 98-107 [facility] Comment on above: Performed By: #### L [id number] ####[facility] ([facility])[address] [place] [address] CO2 [Moles/Vol] 30 mmol/L Normal 21-31 [facility] Comment on above: Performed By: #### L [id number] ####[facility] ([facility])[address] [place] [address] Creatinine [Mass/Vol] 1.21 mg/dL High 0.60-1.20 [place] Comment on above: Performed By: #### L [id number] ####[facility] ([facility])[address] [place] [address] GLOMERULAR FILTRATION RATE ML/MIN/1.73 SQ M.PREDICTED 45.6 mL/min/1.73m*2 Low >60.0 [facility] Comment on above: Result Comment: [facility]???s estimated glomerular filtration rate (eGFR) will [...] of individuals. Performed By: #### L [id number] ####[facility] [place] [address] Glucose [Mass/Vol] 101 mg/dL High 70-100 [facility] Comment on above: Performed By: #### L [id number] ####[facility] [place] [address] Potassium [Moles/Vol] 4.1 mmol/L Normal 3.5-5.1 [facility] Comment on above: Performed By: #### L [id number] ####[facility] [place] [address] Sodium [Moles/Vol] 140 mmol/L Normal 136-145 [facility] Comment on above: Performed By: #### L [id number] ####[facility] [place] [address] Urea nitrogen [Mass/Vol] 41 mg/dL High 7-25 [facility] Comment on above: Performed By: #### L [id number] ####[facility] ([facility])[address] [place] [address] UREA NITROGEN/CREATININE (MASS RATIO) IN SER/PLAS 33.9 Normal [facility] Comment on above: Performed By: #### L [id number] ####[facility] [facility] [place] [address] CBC WITH AUTO DIFFERENTIALon 11-21-2023 Erythrocyte distribution width (RBC) [Ratio] 19.1 % High 11.5-15.0 [facility] Comment on above: Performed By: #### L [id number] ####[facility] ([facility] [place] [address] ERYTHROCYTE MEAN CORPUSCULAR HEMOGLOBIN CONCENTRATION (G/DL) BY AUTOMATED 32.3 g/dL Normal 32.0-35.0 [facility] Comment on above: Performed By: #### L [id number] ####[facility] ([facility])[address] [place] [address] Hematocrit (Bld) [Volume fraction] 25.7 % Low 36.0-48.0 [facility] Comment on above: Performed By: #### L [id number] ####[facility] ([facility])[address] [place] [address] Hemoglobin (Bld) [Mass/Vol] 8.3 g/dL Low 12.0-15.0 [facility] Comment on above: Performed By: #### L [id number] ####[facility] ([facility])[address] [place] [address] MCH (RBC) [Entitic mass] 29.7 pg Normal 27.0-33.0 [facility] Comment on above: Performed By: #### L [id number] ####[facility] ([facility])[address] [place] [address] MCV (RBC) [Entitic vol] 92.1 fL Normal 82.0-98.0 [facility] Comment on above: Performed By: #### L [id number] ####[facility] ([facility])[address] [place] [address] NRBC (PER 100 WBCS) BY AUTOMATED COUNT 8.1 % High 0 [facility] Comment on above: Performed By: #### L [id number] ####[facility] ([facility])[address] [place] [address] PLATELETS (10*3/UL) IN BLOOD AUTOMATED COUNT 134 10*3/uL Low 150-400 [facility] Comment on above: Performed By: #### L [id number] ####[facility] ([facility])[address] [place] [address] RBC (Bld) [#/Vol] 2.79 10*6/uL Low 3.80-5.00 [facility] Comment on above: Performed By: #### L [id number] ####[facility] ([facility])[address] [place] [address] WBC (Bld) [#/Vol] 13.21 10*3/uL High 4.00-10.60 [facility] Comment on above: Performed By: #### L [id number] ####[facility] ([facility])[address] [place] [address] HEMOGLOBIN AND HEMATOCRIT, B LOODon 11-21-2023 Hematocrit (Bld) [Volume fraction] 25.9 % Low 36.0-48.0 [facility] Comment on above: Performed By: #### L [id number] ####[facility] ([facility])[place] [address] Hemoglobin (Bld) [Mass/Vol] 8.3 g/dL Low 12.0-15.0 [facility] Comment on above: Performed By: #### L [id number] ####[facility] ([facility])[address] [place] [address] MAGNESIUMon 11-21-2023 Magnesium [Mass/Vol] 2.1 mg/dL Normal 1.9-2.7 [facility] Comment on above: Performed By: #### L [id number] ####[facility] ([facility])[address] [place] [address] MANUAL DIFFERENTIALon 2023 BASOPHILS (10*3/UL) IN BLOOD BY CALCULATION 0.00 10*3/uL Normal 0.00-0.20 [facility] Comment on above: Performed By: #### L [id number] ####[facility] ([facility])[address] [place] [address] BASOPHILS/100 LEUKOCYTES IN BLOOD BY AUTOMATED COUNT 0.0 % Normal 0.0-1.0 [facility] Comment on above: Performed By: #### L [id number] ####[facility] ([facility])[address] [place] [address] EOSINOPHILS (10*3/UL) IN BLOOD BY CALCULATION 0.09 10*3/uL Normal 0.00-0.50 [facility] Comment on above: Performed By: #### L [id number] ####[facility] ([facility])[address] [place] [address] EOSINOPHILS/100 LEUKOCYTES IN BLOOD BY AUTOMATED COUNT 0.7 % Normal 0.0-6.0 [facility] Comment on above: Performed By: #### L [id number] ####[facility] ([facility])[address] [place] [address] LYMPHOCYTES (10*3/UL) IN BLOOD BY CALCULATION 1.27 10*3/uL Normal 1.20-4.00 [facility] Comment on above: Performed By: #### L [id number] ####[facility] ([facility])[address] [place] [address] LYMPHOCYTES/100 LEUKOCYTES IN BLOOD BY AUTOMATED COUNT 9.6 % Low 20.0-45.0 [facility] Comment on above: Performed By: #### L [id number] ####[facility] ([facility])[address] [place] [address] METAMYELOCYTES (10*3/UL) IN BLOOD BY CALCULATION 0.45 10*3/uL High 0.00 [facility] Comment on above: Performed By: #### L [id number] ####[facility] ([facility])[address] [place] [address] METAMYELOCYTES/100 LEUKOCYTES IN BLOOD CELLAVISION 3.4 % High 0.0-0.0 [facility] Comment on above: Performed By: #### L [id number] ####[facility] ([facility])[address] [place] [address] MONOCYTES (10*3/UL) IN BLOOD BY CALCUATION 0.63 10*3/uL Normal 0.10-1.00 [facility] Comment on above: Performed By: #### L [id number] ####[facility] ([facility])[address] [place] [address] MONOCYTES/100 LEUKOCYTES IN BLOOD BY AUTOMATED COUNT 4.8 % Low 5.0-12.0 [facility] Comment on above: Performed By: #### L [id number] ####[facility] ([facility] [place] [address] MYELOCYTES (10*3/UL) IN BLOOD BY CALCULATION 0.81 10*3/uL High 0.00 [facility] Comment on above: Performed By: #### L [id number] ####[facility] ([facility])[address] [place] [address] MYELOCYTES/100 LEUKOCYTES IN BLOOD CELLAVISION 6.1 % High 0.0-0.0 [facility] Comment on above: Performed By: #### L [id number] ####[facility] ([facility])[address] [place] [address] NEUTROPHILS (10*3/UL) IN BLOOD BY CALCULATION 9.8 10*3/uL High 1.6-7.6 [facility] Comment on above: Performed By: #### L [id number] ####[facility] ([facility])[address] [place] [address] NEUTROPHILS/100 LEUKOCYTES IN BLOOD BY AUTOMATED COUNT 74.0 % High 40.0-72.0 [facility] Comment on above: Performed By: #### L [id number] ####[facility] ([facility] [place] [address] NUCLEATED RED BLOOD CELLS IN BLOOD BY LIGHT MICROSCOPY Present Normal [facility] Comment on above: Performed By: #### L [id number] ####[facility] ([facility] [place] [address] PLASMA CELLS/100 LEUKOCYTES IN BLOOD 0 % Normal 0 [facility] Comment on above: Performed By: #### L [id number] ####[facility] ([facility] [place] [address] PROMYELOCYTES (10*3/UL) IN BLOOD BY CALCULATION 0.18 10*3/uL High 0.00 [facility] Comment on above: Performed By: #### L [id number] ####[facility] ([facility])[address] [place] [address] PROMYELOCYTES/100 LEUKOCYTES IN BLOOD CELLAVISION 1.4 % High 0.0-0.0 [facility] Comment on above: Performed By: #### L [id number] ####[facility] ([facility])[address] [place] [address] VARIANT LYMPHOCYTES (10*3/UL) IN BLOOD BY CALCULATION 0.00 10*3/uL Normal 0.00 [facility] Comment on above: Performed By: #### L [id number] ####[facility] ([facility])[address] [place] [address] VARIANT LYMPHOCYTES/100 LEUKOCYTES IN BLOOD CELLAVISION 0.0 % Normal 0.0-0.0 [facility] Comment on above: Performed By: #### L [id number] ####[facility] ([facility])[address] [place] [address] NURSNOTEon 11-21-2023 NURSNOTE Normal [facility] PHOSPHORUSon 11-21-2023 Magnesium [Mass/Vol] 2.7 mg/dL Normal 2.5-5.0 [facility] Comment on above: Performed By: #### L [id number] ####[facility] ([facility])[address] [place] [address] PROTIME-INRon 11-21-2023 INR IN PPP BY COAGULATION ASSAY 1.18 High 0.90-1.10 [facility] Comment on above: Result Comment: ACCC [...] CHEST 1995;[id number]. Performed By: #### L [id number] ####[facility] ([facility])[address] [place] [address] PROTHROMBIN TIME (PT) IN PPP BY COAGULATION ASSAY 15.0 Seconds High 12.3-14.8 [facility] Comment on above: Performed By: #### L [id number] ####[facility] ([facility])[address] [place] [address] 30on 11-19-2023 30 Normal [facility] BASIC METABOLIC PANELon 070 Anion gap [Moles/Vol] 11 mmol/L Normal 7-20 [place] Comment on above: Performed By: #### L [id number] ####[facility] ([facility])[address] [place] [address] Calcium [Mass/Vol] 6.8 mg/dL Low 8.6-10.3 [facility] Comment on above: Performed By: #### L [id number] ####[facility] ([facility])[address] [place] [address] Chloride [Moles/Vol] 102 mmol/L Normal 98-107 [facility] Comment on above: Performed By: #### L [id number] ####[facility] ([facility])[address] [place] [address] CO2 [Moles/Vol] 29 mmol/L Normal 21-31 [facility] Comment on above: Performed By: #### L [id number] ####[facility] ([facility])[address] [place] [address] Creatinine [Mass/Vol] 1.59 mg/dL High 0.60-1.20 [place] Comment on above: Performed By: #### L [id number] ####[facility] ([facility])[address] [place] [address] GLOMERULAR FILTRATION RATE ML/MIN/1.73 SQ M.PREDICTED 32.8 mL/min/1.73m*2 Low >60.0 [facility] Comment on above: Result Comment: [facility]???s estimated glomerular filtration rate (eGFR) will [...] of individuals. Performed By: #### L [id number] ####[facility] ([facility])[address] [place] [address] Glucose [Mass/Vol] 116 mg/dL High 70-100 [facility] Comment on above: Performed By: #### L [id number] ####[facility] ([facility])[address] [place] [address] Potassium [Moles/Vol] 4.4 mmol/L Normal 3.5-5.1 [place] Comment on above: Performed By: #### L [id number] ####[facility] ([facility])[address] [place] [address] Sodium [Moles/Vol] 138 mmol/L Normal 136-145 [facility] Comment on above: Performed By: #### L [id number] ####[facility] ([facility])[address] [place] [address] Urea nitrogen [Mass/Vol] 47 mg/dL High 7-25 [facility] Comment on above: Performed By: #### L [id number] ####[facility] ([facility])[address] [place] [address] UREA NITROGEN/CREATININE (MASS RATIO) IN SER/PLAS 29.6 Normal [facility] Comment on above: Performed By: #### L [id number] ####[facility] ([facility])[address] [place] [address] CALCIUM, IONIZEDon CALCIUM IONIZED (MMOL/L) IN BLOOD 0.97 mmol/L Low 1.15-1.33 [facility] Comment on above: Performed By: #### L [id number] ####[facility] RESPIRATORY [id number] [place] [address] [place] CBCon 11-20-2023 Erythrocyte distribution width (RBC) [Ratio] 18.4 % High 11.5-15.0 [facility] Comment on above: Performed By: #### L [id number] ####[facility] ([facility])[address] [place] [address] ERYTHROCYTE MEAN CORPUSCULAR HEMOGLOBIN CONCENTRATION (G/DL) BY AUTOMATED 32.6 g/dL Normal 32.0-35.0 [facility] Comment on above: Performed By: #### L [id number] ####[facility] ([facility])[address] [place] [address] Hematocrit (Bld) [Volume fraction] 24.2 % Low 36.0-48.0 [facility] Comment on above: Performed By: #### L [id number] ####[facility] ([facility])[address] [place] [address] Hemoglobin (Bld) [Mass/Vol] 7.9 g/dL Low 12.0-15.0 [facility] Comment on above: Performed By: #### L [id number] ####[facility] ([facility])[address] [place] [address] MCH (RBC) [Entitic mass] 29.9 pg Normal 27.0-33.0 [facility] Comment on above: Performed By: #### L [id number] ####[facility] ([facility])[address] [place] [address] MCV (RBC) [Entitic vol] 91.7 fL Normal 82.0-98.0 [facility] Comment on above: Performed By: #### L [id number] ####[facility] [place] [address] PLATELETS (10*3/UL) IN BLOOD AUTOMATED COUNT 133 10*3/uL Low 150-400 [facility] Comment on above: Performed By: #### L [id number] ####[facility] ([facility] [place] [address] RBC (Bld) [#/Vol] 2.64 10*6/uL Low 3.80-5.00 [facility] Comment on above: Performed By: #### L [id number] ####[facility] ([facility] [place] [address] WBC (Bld) [#/Vol] 13.49 10*3/uL High 4.00-10.60 [facility] Comment on above: Performed By: #### L [id number] ####[facility] ([facility])[address] [place] [address] CBC WITH AUTO DIFFERENTIALon 11-20-2023 Erythrocyte distribution width (RBC) [Ratio] 22.2 % High 11.5-15.0 [facility] Comment on above: Performed By: #### L [id number] ####[facility] ([facility])[address] [place] [address] ERYTHROCYTE MEAN CORPUSCULAR HEMOGLOBIN CONCENTRATION (G/DL) BY AUTOMATED 31.1 g/dL Low 32.0-35.0 [facility] Comment on above: Performed By: #### L [id number] ####[facility] ([facility])[address] [place], [place] [address] Hematocrit (Bld) [Volume fraction] 18.0 % Low 36.0-48.0 [facility] Comment on above: Performed By: #### L [id number] ####[facility] ([facility])[address] [place] [address] Hemoglobin (Bld) [Mass/Vol] 5.6 g/dL Invalid Interpretation Code 12.0-15.0 [facility] Comment on above: Performed By: #### L [id number] ####[facility] ([facility])[address] [place] [address] MCH (RBC) [Entitic mass] 29.3 pg Normal 27.0-33.0 [facility] Comment on above: Performed By: #### L [id number] ####[facility] ([facility])[address] [place], [place] [address] MCV (RBC) [Entitic vol] 94.2 fL Normal 82.0-98.0 [facility] Comment on above: Performed By: #### L [id number] ####[facility] ([facility])[address] [place], [place] [address] NRBC (PER 100 WBCS) BY AUTOMATED COUNT 11.3 % High 0 [facility] Comment on above: Performed By: #### L [id number] ####[facility] ([facility])[address] [place], [place] [address] PLATELETS (10*3/UL) IN BLOOD AUTOMATED COUNT 139 10*3/uL Low 150-400 [facility] Comment on above: Performed By: #### L [id number] ####[facility] ([facility])[address] [place] [address] RBC (Bld) [#/Vol] 1.91 10*6/uL Low 3.80-5.00 [facility] Comment on above: Performed By: #### L [id number] ####[facility] ([facility])[address] [place] [address] WBC (Bld) [#/Vol] 13.93 10*3/uL High 4.00-10.60 [facility] Comment on above: Performed By: #### L [id number] ####[facility] ([facility])[address] [place] [address] CKon 11-20-2023 CREATINE KINASE (U/L) IN SER/PLAS 239.0 U/L High 30.0-223.0 [facility] Comment on above: Performed By: #### L [id number] ####[facility] ([facility])[address] [place] [address] HEMOGLOBIN AND HEMATOCRIT, B LOODon 11-20-2023 Hematocrit (Bld) [Volume fraction] 22.7 % Low 36.0-48.0 [facility] Comment on above: Performed By: #### L [id number] ####[facility] ([facility])[address] [place] [address] Hemoglobin (Bld) [Mass/Vol] 7.2 g/dL Low 12.0-15.0 [facility] Comment on above: Performed By: #### L [id number] ####[facility] ([facility])[address] [place] [address] Hematocrit (Bld) [Volume fraction] 18.7 % Low 36.0-48.0 [facility] Comment on above: Performed By: #### L [id number] ####[facility] ([facility])[address] [place] [address] Hemoglobin (Bld) [Mass/Vol] 5.8 g/dL Invalid Interpretation Code 12.0-15.0 [facility] Comment on above: Performed By: #### L [id number] ####[facility] ([facility])[address] [place] [address] MAGNESIUMon 11-20-2023 Magnesium [Mass/Vol] 2.1 mg/dL Normal 1.9-2.7 [facility] Comment on above: Performed By: #### L [id number] ####[facility] ([facility])[address] [place] [address] MANUAL DIFFERENTIALon 2023 ANISOCYTOSIS PRESENCE IN BLOOD BY LIGHT MICROSCOPY Moderate Normal [facility] Comment on above: Performed By: #### L [id number] ####[facility] ([facility])[address] [place] [address] BASOPHILS (10*3/UL) IN BLOOD BY CALCULATION 0.00 10*3/uL Normal 0.00-0.20 [facility] Comment on above: Performed By: #### L [id number] ####[facility] ([facility])[address] [place] [address] BASOPHILS/100 LEUKOCYTES IN BLOOD BY AUTOMATED COUNT 0.0 % Normal 0.0-1.0 [facility] Comment on above: Performed By: #### L [id number] ####[facility] ([facility])[address] [place] [address] EOSINOPHILS (10*3/UL) IN BLOOD BY CALCULATION 0.00 10*3/uL Normal 0.00-0.50 [facility] Comment on above: Performed By: #### L [id number] ####[facility] ([facility])[address] [place] [address] EOSINOPHILS/100 LEUKOCYTES IN BLOOD BY AUTOMATED COUNT 0.0 % Normal 0.0-6.0 [facility] Comment on above: Performed By: #### L [id number] ####[facility] ([facility])[address] [place] [address] HYPOCHROMIA (PRESENCE) IN BLOOD BY LIGHT MICROSCOPY Slight Normal [facility] Comment on above: Performed By: #### L [id number] ####[facility] ([facility])[address] [place] [address] LYMPHOCYTES (10*3/UL) IN BLOOD BY CALCULATION 1.94 10*3/uL Normal 1.20-4.00 [facility] Comment on above: Performed By: #### L [id number] ####[facility] ([facility])[address] [place] [address] LYMPHOCYTES/100 LEUKOCYTES IN BLOOD BY AUTOMATED COUNT 13.9 % Low 20.0-45.0 [facility] Comment on above: Performed By: #### L [id number] ####[facility] ([facility])[address] [place] [address] METAMYELOCYTES (10*3/UL) IN BLOOD BY CALCULATION 0.39 10*3/uL High 0.00 [facility] Comment on above: Performed By: #### L [id number] ####[facility] ([facility])[address] [place] [address] METAMYELOCYTES/100 LEUKOCYTES IN BLOOD CELLAVISION 2.8 % High 0.0-0.0 [facility] Comment on above: Performed By: #### L [id number] ####[facility] ([facility])[address] [place] [address] MONOCYTES (10*3/UL) IN BLOOD BY CALCUATION 0.38 10*3/uL Normal 0.10-1.00 [facility] Comment on above: Performed By: #### L [id number] ####[facility] ([facility])[address] [place] [address] MONOCYTES/100 LEUKOCYTES IN BLOOD BY AUTOMATED COUNT 2.7 % Low 5.0-12.0 [facility] Comment on above: Performed By: #### L [id number] ####[facility] ([facility])[address] [place] [address] MYELOCYTES (10*3/UL) IN BLOOD BY CALCULATION 0.20 10*3/uL High 0.00 [facility] Comment on above: Performed By: #### L [id number] ####[facility] ([facility])[address] [place] [address] MYELOCYTES/100 LEUKOCYTES IN BLOOD CELLAVISION 1.4 % High 0.0-0.0 [facility] Comment on above: Performed By: #### L [id number] ####[facility] ([facility])[address] [place] [address] NEUTROPHILS (10*3/UL) IN BLOOD BY CALCULATION 10.8 10*3/uL High 1.6-7.6 [facility] Comment on above: Performed By: #### L [id number] ####[facility] ([facility])[address] [place] [address] NEUTROPHILS/100 LEUKOCYTES IN BLOOD BY AUTOMATED COUNT 77.8 % High 40.0-72.0 [facility] Comment on above: Performed By: #### L [id number] ####[facility] ([facility])[address] [place] [address] NUCLEATED RED BLOOD CELLS IN BLOOD BY LIGHT MICROSCOPY Present Normal [facility] Comment on above: Performed By: #### L [id number] ####[facility] ([facility])[address] [place] [address] PLASMA CELLS/100 LEUKOCYTES IN BLOOD 0 % Normal 0 [facility] Comment on above: Performed By: #### L [id number] ####[facility] ([facility])[address] [place] [address] PLATELETS GIANT PRESENCE IN BLOOD BY LIGHT MICROSCOPY Present Normal [facility] Comment on above: Performed By: #### L [id number] ####[facility] ([facility])[address] [place] [address] POIKILOCYTOSIS (PRESENCE) IN BLOOD BY LIGHT MICROSCOPY Slight Normal [facility] Comment on above: Performed By: #### L [id number] ####[facility] ([facility])[address] [place] [address] POLYCHROMASIA IN BLOOD BY LIGHT MICROSCOPY Slight Normal [facility] Comment on above: Performed By: #### L [id number] ####[facility] ([facility])[address] [place] [address] PROMYELOCYTES (10*3/UL) IN BLOOD BY CALCULATION 0.20 10*3/uL High 0.00 [facility] Comment on above: Performed By: #### L [id number] ####[facility] ([facility])[address] [place] [address] PROMYELOCYTES/100 LEUKOCYTES IN BLOOD CELLAVISION 1.4 % High 0.0-0.0 [facility] Comment on above: Performed By: #### L [id number] ####[facility] ([facility])[address] [place] [address] VARIANT LYMPHOCYTES (10*3/UL) IN BLOOD BY CALCULATION 0.00 10*3/uL Normal 0.00 [facility] Comment on above: Performed By: #### L [id number] ####[facility] ([facility])[address] [place] [address] VARIANT LYMPHOCYTES/100 LEUKOCYTES IN BLOOD CELLAVISION 0.0 % Normal 0.0-0.0 [facility] Comment on above: Performed By: #### L [id number] ####[facility] ([facility])[address] [place] [address] NURSNOTEon 11-20-2023 NURSNOTE Normal [facility] NURSNOTE Patient has critical HGB of 5.8. DPOA was contacted at [phone] and did not garbage pick up man to get consent for blood transfusion. Will transfuse emergently. Normal [facility] PATHOLOGY REVIEWon PATHOLOGY REVIEW Electronically christina d by Viktoriya Dominguez MD on 11/20/23 at 12:12 PM. [facility] Comment on above: Performed By: #### L [id number] ####[facility] ([facility])[address] [place] [address] PHOSPHORUSon 11-20-2023 Magnesium [Mass/Vol] 3.2 mg/dL Normal 2.5-5.0 [facility] Comment on above: Performed By: #### L [id number] ####[facility] ([facility])[address] [place] [address] PROTIME-INRon 11-20-2023 INR IN PPP BY COAGULATION ASSAY 3.65 High 0.90-1.10 [facility] Comment on above: Result Comment: ACCC [...] CHEST 1995;108:[id number]. Performed By: #### L [id number] ####[facility] ([facility])[address] [place] [address] PROTHROMBIN TIME (PT) IN PPP BY COAGULATION ASSAY 36.6 Seconds High 12.3-14.8 [facility] Comment on above: Performed By: #### L [id number] ####[facility] ([facility])[address] [place] [address] INR IN PPP BY COAGULATION ASSAY 4.24 High 0.90-1.10 [facility] Comment on above: Result Comment: ACCC [...] CHEST 1995;108:[id number]. Performed By: #### L [id number] ####[facility] [place] [address] PROTHROMBIN TIME (PT) IN PPP BY COAGULATION ASSAY 41.1 Seconds High 12.3-14.8 [facility] Comment on above: Performed By: #### L [id number] ####[facility] [place] [address] 30on 11-18-2023 30 Normal [facility] BASIC METABOLIC PANELon Anion gap [Moles/Vol] 14 mmol/L Normal 7-20 [place] Comment on above: Performed By: #### L [id number] ####[facility] [place] [address] Calcium [Mass/Vol] 6.9 mg/dL Low 8.6-10.3 [facility] Comment on above: Performed By: #### L [id number] ####[facility] [place] [address] Chloride [Moles/Vol] 99 mmol/L Normal 98-107 [facility] Comment on above: Performed By: #### L [id number] ####[facility] ([facility])[address] [place] [address] CO2 [Moles/Vol] 28 mmol/L Normal 21-31 [facility] Comment on above: Performed By: #### L [id number] ####[facility] ([facility])[address] [place] [address] Creatinine [Mass/Vol] 2.03 mg/dL High 0.60-1.20 [place] Comment on above: Performed By: #### L [id number] ####[facility] ([facility])[address] [place] [address] GLOMERULAR FILTRATION RATE ML/MIN/1.73 SQ M.PREDICTED 24.5 mL/min/1.73m*2 Low >60.0 [facility] Comment on above: Result Comment: [facility]???s estimated glomerular filtration rate (eGFR) will [...] of individuals. Performed By: #### L [id number] ####[facility] ([facility])[address] [place] [address] Glucose [Mass/Vol] 107 mg/dL High 70-100 [facility] Comment on above: Performed By: #### L [id number] ####[facility] ([facility])[address] [place] [address] Potassium [Moles/Vol] 3.0 mmol/L Low 3.5-5.1 [facility] Comment on above: Performed By: #### L [id number] ####[facility] ([facility])[address] [place] [address] Sodium [Moles/Vol] 138 mmol/L Normal 136-145 [facility] Comment on above: Performed By: #### L [id number] ####[facility] ([facility])[address] [place] [address] Urea nitrogen [Mass/Vol] 49 mg/dL High 7-25 [facility] Comment on above: Performed By: #### L [id number] ####[facility] ([facility])[address] [place] [place] [address] UREA NITROGEN/CREATININE (MASS RATIO) IN SER/PLAS 24.1 Normal [facility] Comment on above: Performed By: #### L [id number] ####[facility] ([facility])[address] [place] [address] CALCIUM, IONIZEDon 07-07-202 4 CALCIUM IONIZED (MMOL/L) IN BLOOD 0.91 mmol/L Low 1.15-1.33 [facility] Comment on above: Performed By: #### L [id number] ####[facility] RESPIRATORY [id number] [place] [address] [place] CBC WITH AUTO DIFFERENTIALon 11-19-2023 Erythrocyte distribution width (RBC) [Ratio] 22.3 % High 11.5-15.0 [facility] Comment on above: Performed By: #### L [id number] ####[facility] ([facility])[address] [place] [address] ERYTHROCYTE MEAN CORPUSCULAR HEMOGLOBIN CONCENTRATION (G/DL) BY AUTOMATED 31.6 g/dL Low 32.0-35.0 [facility] Comment on above: Performed By: #### L [id number] ####[facility] ([facility])[address] [place] [address] Hematocrit (Bld) [Volume fraction] 19.6 % Low 36.0-48.0 [facility] Comment on above: Performed By: #### L [id number] ####[facility] ([facility])[address] [place] [address] Hemoglobin (Bld) [Mass/Vol] 6.2 g/dL Low 12.0-15.0 [facility] Comment on above: Performed By: #### L [id number] ####[facility] ([facility])[address] [place] [address] MCH (RBC) [Entitic mass] 29.2 pg Normal 27.0-33.0 [facility] Comment on above: Performed By: #### L [id number] ####[facility] ([facility])[address] [place] [address] MCV (RBC) [Entitic vol] 92.5 fL Normal 82.0-98.0 [facility] Comment on above: Performed By: #### L [id number] ####[facility] ([facility])[address] [place] [address] NRBC (PER 100 WBCS) BY AUTOMATED COUNT 9.5 % High 0 [facility] Comment on above: Performed By: #### L [id number] ####[facility] ([facility])[address] [place] [address] PLATELETS (10*3/UL) IN BLOOD AUTOMATED COUNT 123 10*3/uL Low 150-400 [facility] Comment on above: Performed By: #### L [id number] ####[facility] ([facility])[address] [place] [address] RBC (Bld) [#/Vol] 2.12 10*6/uL Low 3.80-5.00 [facility] Comment on above: Performed By: #### L [id number] ####[facility] ([facility])[address] [place] [place] [address] WBC (Bld) [#/Vol] 18.42 10*3/uL High 4.00-10.60 [facility] Comment on above: Performed By: #### L [id number] ####[facility] ([facility])[address] [place] [address] HEPATIC FUNCTION PANELon Albumin [Mass/Vol] 2.1 g/dL Low 3.5-5.7 [facility] Comment on above: Performed By: #### L [id number] ####[facility] ([facility])[address] [place] [address] ALP [Catalytic activity/Vol] 97 U/L Normal 34-104 [facility] Comment on above: Performed By: #### L [id number] ####[facility] ([facility])[address] [place] [address] ALT [Catalytic activity/Vol] 29 U/L Normal 7-52 [facility] Comment on above: Performed By: #### L [id number] ####[facility] [place] [address] AST [Catalytic activity/Vol] 89 U/L High 13-39 [facility] Comment on above: Performed By: #### L [id number] ####[facility] ([facility])[address] [place] [address] Bilirubin [Mass/Vol] 0.9 mg/dL Normal 0.3-1.0 [facility] Comment on above: Performed By: #### L [id number] ####[facility] ([facility])[address] [place] [address] Magnesium [Mass/Vol] 0.4 mg/dL High 0-0.2 [facility] Comment on above: Performed By: #### L [id number] ####[facility] ([facility])[address] [place] [address] Protein [Mass/Vol] 4.0 g/dL Low 6.0-8.3 [facility] Comment on above: Performed By: #### L [id number] ####[facility] ([facility])[address] [place] [address] LACTIC ACID WITH 4 HOUR REFL EXon 11-19-2023 LACTATE (MMOL/L) IN SER/PLAS 0.9 mmol/L Normal 0.5-2.2 [facility] Comment on above: Performed By: #### L [id number] ####[facility] ([facility])[address] [place] [place] [address] MAGNESIUMon 11-19-2023 Magnesium [Mass/Vol] 1.9 mg/dL Normal 1.9-2.7 [facility] Comment on above: Performed By: #### L [id number] ####[facility] ([facility])[address] [place] [address] MANUAL DIFFERENTIALon 2023 ANISOCYTOSIS PRESENCE IN BLOOD BY LIGHT MICROSCOPY Moderate Normal [facility] Comment on above: Performed By: #### L [id number] ####[facility] ([facility])[address] [place] [address] BASOPHILS (10*3/UL) IN BLOOD BY CALCULATION 0.00 10*3/uL Normal 0.00-0.20 [facility] Comment on above: Performed By: #### L [id number] ####[facility] [place] [address] BASOPHILS/100 LEUKOCYTES IN BLOOD BY AUTOMATED COUNT 0.0 % Normal 0.0-1.0 [facility] Comment on above: Performed By: #### L [id number] ####[facility] ([facility])[address] [place] [address] EOSINOPHILS (10*3/UL) IN BLOOD BY CALCULATION 0.00 10*3/uL Normal 0.00-0.50 [facility] Comment on above: Performed By: #### L [id number] ####[facility] ([facility])[address] [place] [address] EOSINOPHILS/100 LEUKOCYTES IN BLOOD BY AUTOMATED COUNT 0.0 % Normal 0.0-6.0 [facility] Comment on above: Performed By: #### L [id number] ####[facility] ([facility])[address] [place] [address] HYPOCHROMIA (PRESENCE) IN BLOOD BY LIGHT MICROSCOPY Moderate Normal [facility] Comment on above: Performed By: #### L [id number] ####[facility] ([facility])[address] [place] [address] LYMPHOCYTES (10*3/UL) IN BLOOD BY CALCULATION 1.23 10*3/uL Normal 1.20-4.00 [facility] Comment on above: Performed By: #### L [id number] ####[facility] ([facility])[address] [place] [address] LYMPHOCYTES/100 LEUKOCYTES IN BLOOD BY AUTOMATED COUNT 6.7 % Low 20.0-45.0 [facility] Comment on above: Performed By: #### L [id number] ####[facility] ([facility])[address] [place] [address] MONOCYTES (10*3/UL) IN BLOOD BY CALCUATION 0.87 10*3/uL Normal 0.10-1.00 [facility] Comment on above: Performed By: #### L [id number] ####[facility] [place] [address] MONOCYTES/100 LEUKOCYTES IN BLOOD BY AUTOMATED COUNT 4.7 % Low 5.0-12.0 [facility] Comment on above: Performed By: #### L [id number] ####[facility] ([facility])[address] [place] [address] NEUTROPHILS (10*3/UL) IN BLOOD BY CALCULATION 15.8 10*3/uL High 1.6-7.6 [facility] Comment on above: Performed By: #### L [id number] ####[facility] ([facility])[address] [place] [address] NEUTROPHILS/100 LEUKOCYTES IN BLOOD BY AUTOMATED COUNT 85.9 % High 40.0-72.0 [facility] Comment on above: Performed By: #### L [id number] ####[facility] ([facility])[address] [place] [address] NUCLEATED RED BLOOD CELLS IN BLOOD BY LIGHT MICROSCOPY Present Normal [facility] Comment on above: Performed By: #### L [id number] ####[facility] ([facility])[address] [place] [address] PLASMA CELLS/100 LEUKOCYTES IN BLOOD 0 % Normal 0 [facility] Comment on above: Performed By: #### L [id number] ####[facility] ([facility])[address] [place] [address] PLATELETS GIANT PRESENCE IN BLOOD BY LIGHT MICROSCOPY Present Normal [facility] Comment on above: Performed By: #### L [id number] ####[facility] ([facility])[address] [place] [address] POIKILOCYTOSIS (PRESENCE) IN BLOOD BY LIGHT MICROSCOPY Slight Normal [facility] Comment on above: Performed By: #### L [id number] ####[facility] [place] [address] POLYCHROMASIA IN BLOOD BY LIGHT MICROSCOPY Slight Normal [facility] Comment on above: Performed By: #### L [id number] ####[facility] ([facility])[address] [place] [address] PROMYELOCYTES (10*3/UL) IN BLOOD BY CALCULATION 0.50 10*3/uL High 0.00 [facility] Comment on above: Performed By: #### L [id number] ####[facility] ([facility])[address] [place] [address] PROMYELOCYTES/100 LEUKOCYTES IN BLOOD CELLAVISION 2.7 % High 0.0-0.0 [facility] Comment on above: Performed By: #### L [id number] ####[facility] ([facility])[address] [place] [address] VARIANT LYMPHOCYTES (10*3/UL) IN BLOOD BY CALCULATION 0.00 10*3/uL Normal 0.00 [facility] Comment on above: Performed By: #### L [id number] ####[facility] ([facility])[address] [place] [address] VARIANT LYMPHOCYTES/100 LEUKOCYTES IN BLOOD CELLAVISION 0.0 % Normal 0.0-0.0 [facility] Comment on above: Performed By: #### L [id number] ####[facility] ([facility])[address] [place] [address] NURSNOTEon 11-19-2023 NURSNOTE Normal [facility] PHOSPHORUSon 11-19-2023 Magnesium [Mass/Vol] 4.1 mg/dL Normal 2.5-5.0 [facility] Comment on above: Performed By: #### L [id number] ####[facility] ([facility])[address] [place] [address] POTASSIUMon 11-19-2023 Potassium [Moles/Vol] 3.7 mmol/L Normal 3.5-5.1 [facility] Comment on above: Performed By: #### L [id number] ####[facility] ([facility])[address] [place] [address] PROTIME-INRon 11-19-2023 INR IN PPP BY COAGULATION ASSAY 4.04 High 0.90-1.10 [facility] Comment on above: Result Comment: ACCC [...] CHEST 1995;108:231S-246S. Performed By: #### L [id number] ####[facility] (BEAKER)[address] [place] [address] PROTHROMBIN TIME (PT) IN PPP BY COAGULATION ASSAY 39.6 Seconds High 12.3-14.8 [facility] Comment on above: Performed By: #### L [id number] ####[facility] (BEAKER)[address] [place] [address] TYPE AND SCREENon 11-19-2023 AB SCREEN Negative Normal [facility] Comment on above: Performed By: #### L [id number] ####[facility] BLOOD BANK, ABO group Nom (Bld) O Normal [facility] Comment on above: Performed By: #### L [id number] ####[facility] BLOOD BANK, RH TYPE IN BLOOD Positive Normal [facility] Comment on above: Performed By: #### L [id number] ####[facility] BLOOD BANK, 11-18-2023 30 Normal [facility] 11-17-2023 30 Normal [facility] 30 Normal [facility] 30 Normal [facility] CONSULTon 11-17-2023 CONSULT [facility] NURSNOTEon 11-17-2023 NURSNOTE Patient states frustration with having to do assessment, and meds stating she doesn't want to be told what to do . Patient also refusing oxygen at this time. [facility] 30on 11-16-2023 30 Normal [facility] 30on 11-15-2023 30 Normal [facility] 30 Normal [facility] ANESon 11-15-2023 ANES [facility] ARTERIAL BLOOD GAS WITH CO-O XIMETRYon 11-15-2023 Base excess Calc (Bld) [Moles/Vol] -16.31278 mmol/L Low -2.0-3.0 [facility] Comment on above: Performed By: #### L [id number] ####[facility] RESPIRATORY [id number] [place] [address] [facility] CARBOXYHEMOGLOBIN/HEM OGLOBIN TOTAL % IN BLOOD 1.3 % Normal 0.0-3.0 [facility] Comment on above: Performed By: #### L [id number] ####[facility] RESPIRATORY [id number] [place] [address] [facility] CO2 (Bld) [Partial pressure] 32 mm[Hg] Low 35-48 [facility] Comment on above: Performed By: #### L [id number] ####[facility] RESPIRATORY [id number] [place] [address] [facility] DEOXYGENATED HEMOGLOBIN IN BLOOD 4.6 % Normal 1-5 [facility] Comment on above: Performed By: #### L [id number] ####[facility] RESPIRATORY [id number] [place] [address] [facility] HCO3 (Bld) [Moles/Vol] 11.1 mmol/L Low 21.0-28.0 [facility] Comment on above: Performed By: #### L [id number] ####[facility] RESPIRATORY [id number] [place], [place] [address] Hemoglobin (Bld) [Mass/Vol] 8.9 g/dL Low 11.7-17.4 [facility] Comment on above: Performed By: #### L [id number] ####[facility] RESPIRATORY [id number] [place] [address] [facility] METHEMOGLOBIN/100 IN BLOOD 0.3 % Normal 0.0-1.5 [facility] Comment on above: Performed By: #### L [id number] ####[facility] RESPIRATORY [id number] [place], [place] [address] Oxygen (Bld) [Partial pressure] 75 mm[Hg] Low 83-100 [facility] Comment on above: Performed By: #### L [id number] ####[facility] RESPIRATORY [id number] [place], [place] [address] OXYGEN SATURATION (%) IN ARTERIAL BLOOD 95.3 % Normal 94.0-98.0 [facility] Comment on above: Performed By: #### L [id number] ####[facility] RESPIRATORY [id number] [place], [place] [address] OXYGENATED HEMOGLOBIN IN BLOOD 93.8 % Normal 90.0-95.0 [facility] Comment on above: Performed By: #### L [id number] ####[facility] RESPIRATORY [id number] [place] [address] [facility] pH (Bld) 7.15 [pH] Invalid Interpretation Code 7.35-7.45 [facility] Comment on above: Performed By: #### L [id number] ####[facility] RESPIRATORY [id number] [place] [address] [facility] SOURCE OF OXYGEN Room Air Normal [facility] Comment on above: Performed By: #### L [id number] ####[facility] RESPIRATORY [id number] [place] [address] [facility] Base excess Calc (Bld) [Moles/Vol] -18.22328 mmol/L Low -2.0-3.0 [facility] Comment on above: Performed By: #### L [id number] ####[facility] RESPIRATORY [id number] [place] [address] [place] CARBOXYHEMOGLOBIN/HEM OGLOBIN TOTAL % IN BLOOD 1.7 % Normal 0.0-3.0 [facility] Comment on above: Performed By: #### L [id number] ####[facility] RESPIRATORY [id number] [place] [address] [place] CO2 (Bld) [Partial pressure] 27 mm[Hg] Low 35-48 [facility] Comment on above: Performed By: #### L [id number] ####[facility] RESPIRATORY [id number] [place] [address] [place] DEOXYGENATED HEMOGLOBIN IN BLOOD 1.6 % Normal 1-5 [facility] Comment on above: Performed By: #### L [id number] ####[facility] RESPIRATORY [id number] [place] [address] [place] HCO3 (Bld) [Moles/Vol] 9.0 mmol/L Low 21.0-28.0 [facility] Comment on above: Performed By: #### L [id number] ####[facility] RESPIRATORY [id number] [place] [address] [place] Hemoglobin (Bld) [Mass/Vol] 9.6 g/dL Low 11.7-17.4 [facility] Comment on above: Performed By: #### L [id number] ####[facility] RESPIRATORY [id number] [place] [address] [place] METHEMOGLOBIN/100 IN BLOOD 0.8 % Normal 0.0-1.5 [facility] Comment on above: Performed By: #### L [id number] ####[facility] RESPIRATORY [id number] [place] [place] [address] [place] Oxygen (Bld) [Partial pressure] 98 mm[Hg] Normal 83-100 [facility] Comment on above: Performed By: #### L [id number] ####[facility] RESPIRATORY [id number] [place] [address] [place] OXYGEN SATURATION (%) IN ARTERIAL BLOOD 98.4 % High 94.0-98.0 [facility] Comment on above: Performed By: #### L [id number] ####[facility] RESPIRATORY [id number] [place] [address] [place] OXYGENATED HEMOGLOBIN IN BLOOD 95.9 % High 90.0-95.0 [facility] Comment on above: Performed By: #### L [id number] ####[facility] RESPIRATORY [id number] [address] [place] [address] [facility] pH (Bld) 7.13 [pH] Invalid Interpretation Code 7.35-7.45 [facility] Comment on above: Performed By: #### L [id number] ####[facility] RESPIRATORY [id number] [place] [address] [facility] SOURCE OF OXYGEN Room Air Normal [facility] Comment on above: Performed By: #### L [id number] ####[facility] RESPIRATORY [id number] [address] [place] [address] [facility] Base excess Calc (Bld) [Moles/Vol] -19.13664 mmol/L Low -2.0-3.0 [facility] Comment on above: Performed By: #### L [id number] ####[facility] RESPIRATORY [id number] [address] [place] [address] [place] CARBOXYHEMOGLOBIN/HEM OGLOBIN TOTAL % IN BLOOD 1.9 % Normal 0.0-3.0 [facility] Comment on above: Performed By: #### L [id number] ####[facility] RESPIRATORY [id number] [address] [place] [address] [facility] CO2 (Bld) [Partial pressure] 30 mm[Hg] Low 35-48 [facility] Comment on above: Performed By: #### L [id number] ####[facility] RESPIRATORY [id number] [address] [place] [address] [place] DEOXYGENATED HEMOGLOBIN IN BLOOD 2.6 % Normal 1-5 [facility] Comment on above: Performed By: #### L [id number] ####[facility] RESPIRATORY [id number] [address] [place] [address] [facility] HCO3 (Bld) [Moles/Vol] 8.9 mmol/L Low 21.0-28.0 [facility] Comment on above: Performed By: #### L [id number] ####[facility] RESPIRATORY [id number] [place] [address] [facility] Hemoglobin (Bld) [Mass/Vol] 9.8 g/dL Low 11.7-17.4 [facility] Comment on above: Performed By: #### L [id number] ####[facility] RESPIRATORY [id number] [place] [address] [facility] METHEMOGLOBIN/100 IN BLOOD 0.7 % Normal 0.0-1.5 [facility] Comment on above: Performed By: #### L [id number] ####[facility] RESPIRATORY [id number] [place] [address] [facility] Oxygen (Bld) [Partial pressure] 86 mm[Hg] Normal 83-100 [facility] Comment on above: Performed By: #### L [id number] ####[facility] RESPIRATORY [id number] [place] [address] [facility] OXYGEN SATURATION (%) IN ARTERIAL BLOOD 97.3 % Normal 94.0-98.0 [facility] Comment on above: Performed By: #### L [id number] ####[facility] RESPIRATORY [id number] [place] [address] [facility] OXYGENATED HEMOGLOBIN IN BLOOD 94.8 % Normal 90.0-95.0 [facility] Comment on above: Performed By: #### L [id number] ####[facility] RESPIRATORY [id number] [place] [address] [facility] pH (Bld) 7.08 [pH] Invalid Interpretation Code 7.35-7.45 [facility] Comment on above: Performed By: #### L [id number] ####[facility] RESPIRATORY [id number] [place] [address] [facility] SOURCE OF OXYGEN Room Air Normal [facility] Comment on above: Performed By: #### L [id number] ####[facility] RESPIRATORY [id number] [place] [address] [facility] Base excess Calc (Bld) [Moles/Vol] -19.39331 mmol/L Low -2.0-3.0 [facility] Comment on above: Performed By: #### L [id number] ####[facility] RESPIRATORY [id number] [place] [address] [facility] CARBOXYHEMOGLOBIN/HEM OGLOBIN TOTAL % IN BLOOD 1.7 % Normal 0.0-3.0 [facility] Comment on above: Performed By: #### L [id number] ####[facility] RESPIRATORY [id number] [place] [address] [facility] CO2 (Bld) [Partial pressure] 27 mm[Hg] Low 35-48 [facility] Comment on above: Performed By: #### L [id number] ####[facility] RESPIRATORY [id number] [place] [address] [facility] DEOXYGENATED HEMOGLOBIN IN BLOOD 0.1 % Low 1-5 [facility] Comment on above: Performed By: #### L [id number] ####[facility] RESPIRATORY [id number] [place] [address] [facility] HCO3 (Bld) [Moles/Vol] 8.6 mmol/L Low 21.0-28.0 [facility] Comment on above: Performed By: #### L [id number] ####[facility] RESPIRATORY [id number] [place] [address] [facility] Hemoglobin (Bld) [Mass/Vol] 8.0 g/dL Low 11.7-17.4 [facility] Comment on above: Performed By: #### L [id number] ####[facility] RESPIRATORY [id number] [place] [address] [place] METHEMOGLOBIN/100 IN BLOOD 0.2 % Normal 0.0-1.5 [facility] Comment on above: Performed By: #### L [id number] ####[facility] RESPIRATORY [id number] [place] [address] [place] Oxygen (Bld) [Partial pressure] 266 mm[Hg] High 83-100 [facility] Comment on above: Performed By: #### L [id number] ####[facility] RESPIRATORY [id number] [place] [address] [place] OXYGEN SATURATION (%) IN ARTERIAL BLOOD 99.9 % High 94.0-98.0 [facility] Comment on above: Performed By: #### L [id number] ####[facility] RESPIRATORY [id number] OXYGENATED HEMOGLOBIN IN BLOOD 98.0 % High 90.0-95.0 [facility] Comment on above: Performed By: #### L [id number] ####[facility] RESPIRATORY [id number] [address] pH (Bld) 7.11 [pH] Invalid Interpretation Code 7.35-7.45 [facility] Comment on above: Performed By: #### L [id number] ####[facility] RESPIRATORY [id number] [place] [address] SOURCE OF OXYGEN Non-rebreather mask Normal [facility] Comment on above: Performed By: #### L [id number] ####[facility] RESPIRATORY [id number] [place] [address] ARTERIAL BLOOD GAS WITH IONI ZED CALCIUMon 11-15-2023 Base excess Calc (Bld) [Moles/Vol] -5.2000 mmol/L Low -2.0-3.0 [facility] Comment on above: Performed By: #### L [id number] ####[facility] RESPIRATORY [id number] [place] [address] CALCIUM IONIZED (MMOL/L) IN BLOOD 1.07 mmol/L Low 1.15-1.33 [facility] Comment on above: Performed By: #### L [id number] ####[facility] RESPIRATORY [id number] [address] CO2 (Bld) [Partial pressure] 32 mm[Hg] Low 35-48 [facility] Comment on above: Performed By: #### L [id number] ####[facility] RESPIRATORY [id number] [address] HCO3 (Bld) [Moles/Vol] 18.9 mmol/L Low 21.0-28.0 [facility] Comment on above: Performed By: #### L [id number] ####[facility] RESPIRATORY [id number] [address] [place] [address] [place] Oxygen (Bld) [Partial pressure] 78 mm[Hg] Low 83-100 [facility] Comment on above: Performed By: #### L [id number] ####[facility] RESPIRATORY [id number] [place] [address] [place] OXYGEN SATURATION (%) IN ARTERIAL BLOOD 98.2 % High 94.0-98.0 [facility] Comment on above: Performed By: #### L [id number] ####[facility] RESPIRATORY [id number] [address] [place] [place] [address] [place] pH (Bld) 7.38 [pH] Normal 7.35-7.45 [facility] Comment on above: Performed By: #### L [id number] ####[facility] RESPIRATORY [id number] [address] [place] [address] [place] SOURCE OF OXYGEN Room Air Normal [facility] Comment on above: Performed By: #### L [id number] ####[facility] RESPIRATORY [id number] [address] [place] [address] [place] B-TYPE NATRIURETIC PEPTIDEon 11-15-2023 Natriuretic peptide B (Bld) [Mass/Vol] 165 pg/mL High 0-100 [facility] Comment on above: Performed By: #### L [id number] ####[facility] HOSPITAL LAB (BEAKER)[address] [place] [address] Natriuretic peptide B (Bld) [Mass/Vol] 175 pg/mL High 0-100 [facility] Comment on above: Performed By: #### L [id number] ####[facility] HOSPITAL LAB (BEAKER)[address] [place] [address] BASIC METABOLIC PANELon Anion gap [Moles/Vol] 25 mmol/L High 7-20 [place] Comment on above: Performed By: #### L [id number] ####[facility] HOSPITAL LAB (BEAKER)[address] [place] [address] Calcium [Mass/Vol] 7.4 mg/dL Low 8.6-10.3 [facility] Comment on above: Performed By: #### L [id number] ####[facility] LAB ([facility])[address] [place] [address] Chloride [Moles/Vol] 108 mmol/L High 98-107 [facility] Comment on above: Performed By: #### L [id number] ####[facility] LAB ([facility])[address] [place] [address] CO2 [Moles/Vol] 22 mmol/L Normal 21-31 [facility] Comment on above: Performed By: #### L [id number] ####[facility] LAB ([facility])[address] [place] [address] Creatinine [Mass/Vol] 1.33 mg/dL High 0.60-1.20 [place] Comment on above: Performed By: #### L [id number] ####[facility] LAB ([facility])[address] [place] [address] GLOMERULAR FILTRATION RATE ML/MIN/1.73 SQ M.PREDICTED 40.7 mL/min/1.73m*2 Low >60.0 [facility] Comment on above: Result Comment: [facility]???s estimated glomerular filtration rate (eGFR) will [...] of individuals. Performed By: #### L [id number] ####[facility] LAB ([facility])[address] [place] [address] Glucose [Mass/Vol] 140 mg/dL High 70-100 [facility] Comment on above: Performed By: #### L [id number] ####[facility] LAB (BEAKER)[address] [place] [address] Potassium [Moles/Vol] 3.4 mmol/L Low 3.5-5.1 [place] Comment on above: Performed By: #### L [id number] ####[facility] LAB (BEAKER)[address] [place] [address] Sodium [Moles/Vol] 152 mmol/L High 136-145 [facility] Comment on above: Performed By: #### L [id number] ####[facility] LAB (BEAKER)[address] [place] [address] Urea nitrogen [Mass/Vol] 30 mg/dL High 7-25 [facility] Comment on above: Performed By: #### L [id number] ####[facility] LAB (BEAKER)[address] [place] [address] UREA NITROGEN/CREATININE (MASS RATIO) IN SER/PLAS 22.6 Normal [facility] Comment on above: Performed By: #### L [id number] ####[facility] LAB (BEAKER)[address] [place] [address] Anion gap [Moles/Vol] 28 mmol/L High 7-20 [place] Comment on above: Performed By: #### L [id number] ####[facility] LAB (BEAKER)[address] [place] [address] Calcium [Mass/Vol] 6.7 mg/dL Low 8.6-10.3 [facility] Comment on above: Performed By: #### L [id number] ####[facility] LAB (BEAKER)[address] [place] [address] Chloride [Moles/Vol] 112 mmol/L High 98-107 [facility] Comment on above: Performed By: #### L [id number] ####[facility] LAB (BEAKER)[address] [place] [address] CO2 [Moles/Vol] 10 mmol/L Invalid Interpretation Code 21-31 [facility] Comment on above: Performed By: #### L [id number] ####[facility] LAB (BEAKER)[address] [place] [address] Creatinine [Mass/Vol] 1.18 mg/dL Normal 0.60-1.20 [place] Comment on above: Performed By: #### L [id number] ####[facility] ([facility])[address] [place] [address] GLOMERULAR FILTRATION RATE ML/MIN/1.73 SQ M.PREDICTED 47.0 mL/min/1.73m*2 Low >60.0 [facility] Comment on above: Result Comment: [facility]???s estimated glomerular filtration rate (eGFR) will [...] of individuals. Performed By: #### L [id number] ####[facility] ([facility])[address] [place] [address] Glucose [Mass/Vol] 239 mg/dL High 70-100 [facility] Comment on above: Performed By: #### L [id number] ####[facility] ([facility])[address] [place] [address] Potassium [Moles/Vol] 3.7 mmol/L Normal 3.5-5.1 [place] Comment on above: Performed By: #### L [id number] ####[facility] ([facility])[address] [place] [address] Sodium [Moles/Vol] 146 mmol/L High 136-145 [facility] Comment on above: Performed By: #### L [id number] ####[facility] [place] [address] Urea nitrogen [Mass/Vol] 26 mg/dL High 7-25 [facility] Comment on above: Performed By: #### L [id number] ####[facility] HOSPITAL LAB (BEAKER)[address] [place] [address] UREA NITROGEN/CREATININE (MASS RATIO) IN SER/PLAS 22.0 Normal [facility] Comment on above: Performed By: #### L [id number] ####[facility] HOSPITAL LAB (BEAKER)[address] [place] [address] Anion gap [Moles/Vol] 16 mmol/L Normal 7-20 [place] Comment on above: Performed By: #### L [id number] ####[facility] LAB (BEAKER)[address] [place] [address] Calcium [Mass/Vol] 7.2 mg/dL Low 8.6-10.3 [facility] Comment on above: Performed By: #### L [id number] ####[facility] LAB (BEAKER)[address] [place] [address] Chloride [Moles/Vol] 113 mmol/L High 98-107 [facility] Comment on above: Performed By: #### L [id number] ####[facility] LAB (BEAKER)[address] [place] [address] CO2 [Moles/Vol] 18 mmol/L Low 21-31 [facility] Comment on above: Performed By: #### L [id number] ####[facility] LAB (BEAKER)[address] [place] [address] Creatinine [Mass/Vol] 1.00 mg/dL Normal 0.60-1.20 [place] Comment on above: Performed By: #### L [id number] ####[facility] LAB (BEAKER)[address] [place] [address] GLOMERULAR FILTRATION RATE ML/MIN/1.73 SQ M.PREDICTED 57.3 mL/min/1.73m*2 Low >60.0 [facility] Comment on above: Result Comment: [facility]???s estimated glomerular filtration rate (eGFR) will [...] of individuals. Performed By: #### L [id number] ####[facility] ([facility])[address] [place] [address] Glucose [Mass/Vol] 205 mg/dL High 70-100 [facility] Comment on above: Performed By: #### L [id number] ####[facility] ([facility])[address] [place] [address] Potassium [Moles/Vol] 3.9 mmol/L Normal 3.5-5.1 [facility] Comment on above: Performed By: #### L [id number] ####[facility] ([facility])[address] [place] [address] Sodium [Moles/Vol] 143 mmol/L Normal 136-145 [facility] Comment on above: Performed By: #### L [id number] ####[facility] ([facility])[address] [place] [address] Urea nitrogen [Mass/Vol] 27 mg/dL High 7-25 [facility] Comment on above: Performed By: #### L [id number] ####[facility] ([facility])[address] [place] [address] UREA NITROGEN/CREATININE (MASS RATIO) IN SER/PLAS 27.0 Normal [facility] Comment on above: Performed By: #### L [id number] ####[facility] ([facility])[address] [place] [address] BETA HYDROXYBUTYRATEon 11-14 BETA HYDROXYBUTYRATE (MMOL/L) IN SER/PLAS 0.31 mmol/L High 0.02-0.27 [facility] Comment on above: Performed By: #### L [id number] ####[facility] LAB (BEAKER)[address] [place] [address] BLOOD CULTUREon 11-15-2023 Bacteria identified Cx Nom (Bld) No growth at 5 days Normal [facility] Comment on above: Order Comment: From a different site than #1. Performed By: #### L [id number] ####[facility] LAB (BEAKER)[address] [place] [address] Bacteria identified Cx Nom (Bld) No growth at 5 days Normal [facility] Comment on above: Performed By: #### L [id number] ####[facility] LAB (BEAKER)[address] [place] [address] CALCIUM, IONIZEDon CALCIUM IONIZED (MMOL/L) IN BLOOD 1.09 mmol/L Low 1.15-1.33 [facility] Comment on above: Performed By: #### C ALCIUM, IONIZED ####[facility] RESPIRATORY [id number] [place] [address] [facility] CALCIUM IONIZED (MMOL/L) IN BLOOD 1.05 mmol/L Low 1.15-1.33 [facility] Comment on above: Performed By: #### C ALCIUM, IONIZED ####[facility] RESPIRATORY [id number] [place] [address] [facility] CALCIUM IONIZED (MMOL/L) IN BLOOD 1.06 mmol/L Low 1.15-1.33 [facility] Comment on above: Performed By: #### C ALCIUM, IONIZED ####[facility] RESPIRATORY [id number] [place] [address] [facility] CALCIUM IONIZED (MMOL/L) IN BLOOD 1.12 mmol/L Low 1.15-1.33 [facility] Comment on above: Performed By: #### C ALCIUM, IONIZED ####[facility] RESPIRATORY [id number] [place] [address] [facility] CBCon 11-15-2023 Erythrocyte distribution width (RBC) [Ratio] 21.2 % High 11.5-15.0 [facility] Comment on above: Performed By: #### L [id number] ####[facility] LAB (BEAKER)[address] [place] [address] ERYTHROCYTE MEAN CORPUSCULAR HEMOGLOBIN CONCENTRATION (G/DL) BY AUTOMATED 33.3 g/dL Normal 32.0-35.0 [facility] Comment on above: Performed By: #### L [id number] ####[facility] LAB (BEAKER)[address] [place] [address] Hematocrit (Bld) [Volume fraction] 21.9 % Low 36.0-48.0 [facility] Comment on above: Performed By: #### L [id number] ####[facility] LAB (BEAKER)[address] [place] [address] Hemoglobin (Bld) [Mass/Vol] 7.3 g/dL Low 12.0-15.0 [facility] Comment on above: Performed By: #### L [id number] ####[facility] LAB (BEAKER)[address] [place] [address] IMMATURE PLATELET FRACTION % 9.7 % High 0.8-6.3 [facility] Comment on above: Performed By: #### L [id number] ####[facility] LAB (BEAKER)[address] [place] [address] MCH (RBC) [Entitic mass] 28.5 pg Normal 27.0-33.0 [facility] Comment on above: Performed By: #### L [id number] ####[facility] LAB (BEAKER)[address] [place] [address] MCV (RBC) [Entitic vol] 85.5 fL Normal 82.0-98.0 [facility] Comment on above: Performed By: #### L [id number] ####[facility] LAB (BEAKER)[address] [place] [address] PLATELETS (10*3/UL) IN BLOOD AUTOMATED COUNT 115 10*3/uL Low 150-400 [facility] Comment on above: Performed By: #### L [id number] ####[facility] LAB (BEAKER)[address] [place] [address] RBC (Bld) [#/Vol] 2.56 10*6/uL Low 3.80-5.00 [facility] Comment on above: Performed By: #### L [id number] ####[facility] LAB (BEAKER)[address] [place] [address] WBC (Bld) [#/Vol] 34.01 10*3/uL High 4.00-10.60 [facility] Comment on above: Performed By: #### L [id number] ####[facility] LAB (BEAKER)[address] [place] [address] Erythrocyte distribution width (RBC) [Ratio] 21.1 % High 11.5-15.0 [facility] Comment on above: Performed By: #### L [id number] ####[facility] LAB (BEAKER)[address] [place] [address] ERYTHROCYTE MEAN CORPUSCULAR HEMOGLOBIN CONCENTRATION (G/DL) BY AUTOMATED 32.2 g/dL Normal 32.0-35.0 [facility] Comment on above: Performed By: #### L [id number] ####[facility] LAB (BEAKER)[address] [place] [address] Hematocrit (Bld) [Volume fraction] 25.8 % Low 36.0-48.0 [facility] Comment on above: Result Comment: Pt i s in surgery on 11/15/23 Performed By: #### L [id number] ####[facility] LAB (BEAKER)[address] [place] [address] Hemoglobin (Bld) [Mass/Vol] 8.3 g/dL Low 12.0-15.0 [facility] Comment on above: Performed By: #### L [id number] ####[facility] LAB (BEAKER)[address] [place] [address] MCH (RBC) [Entitic mass] 27.9 pg Normal 27.0-33.0 [facility] Comment on above: Performed By: #### L [id number] ####[facility] ([facility]AKER)[address] [place] [address] MCV (RBC) [Entitic vol] 86.6 fL Normal 82.0-98.0 [facility] Comment on above: Performed By: #### L [id number] ####[facility] [place] [address] PLATELETS (10*3/UL) IN BLOOD AUTOMATED COUNT 238 10*3/uL Normal 150-400 [facility] Comment on above: Performed By: #### L [id number] ####[facility] [place] [address] RBC (Bld) [#/Vol] 2.98 10*6/uL Low 3.80-5.00 [facility] Comment on above: Performed By: #### L [id number] ####[facility] ([facility])[address] [place] [address] WBC (Bld) [#/Vol] 16.89 10*3/uL High 4.00-10.60 [facility] Comment on above: Performed By: #### L [id number] ####[facility] [place] [address] CBC WITH AUTO DIFFERENTIALon 11-15-2023 Erythrocyte distribution width (RBC) [Ratio] 20.5 % High 11.5-15.0 [facility] Comment on above: Performed By: #### L [id number] ####[facility] ([facility] [place] [address] ERYTHROCYTE MEAN CORPUSCULAR HEMOGLOBIN CONCENTRATION (G/DL) BY AUTOMATED 30.3 g/dL Low 32.0-35.0 [facility] Comment on above: Performed By: #### L [id number] ####[facility] [place] [address] Hematocrit (Bld) [Volume fraction] 32.0 % Low 36.0-48.0 [facility] Comment on above: Performed By: #### L [id number] ####[facility] ([facility])[address] [place] [address] Hemoglobin (Bld) [Mass/Vol] 9.7 g/dL Low 12.0-15.0 [facility] Comment on above: Performed By: #### L [id number] ####[facility] ([facility]AKER)[address] [place] [address] MCH (RBC) [Entitic mass] 27.6 pg Normal 27.0-33.0 [facility] Comment on above: Performed By: #### L [id number] ####[facility] ([facility])[address] [place] [address] MCV (RBC) [Entitic vol] 90.9 fL Normal 82.0-98.0 [facility] Comment on above: Performed By: #### L [id number] ####[facility] ([facility])[address] [place] [address] NRBC (PER 100 WBCS) BY AUTOMATED COUNT 0.5 % High 0 [facility] Comment on above: Performed By: #### L [id number] ####[facility] ([facility])[address] [place] [address] PLATELETS (10*3/UL) IN BLOOD AUTOMATED COUNT 207 10*3/uL Normal 150-400 [facility] Comment on above: Performed By: #### L [id number] ####[facility] [place] [address] RBC (Bld) [#/Vol] 3.52 10*6/uL Low 3.80-5.00 [facility] Comment on above: Performed By: #### L [id number] ####[facility] (BEAKER)[address] [place] [address] WBC (Bld) [#/Vol] 34.34 10*3/uL High 4.00-10.60 [facility] Comment on above: Performed By: #### L [id number] ####[facility] ([facility])[address] [place] [address] CLOSTRIDIOIDES DIFFICILE DNA AMPLIFICATIONon 11-15-2023 CLOSTRIDIOIDES DIFFICILE (TOXIN A/B) Negative Normal Negative [facility] Comment on above: Order Comment: Jett mary methodology is an in vitro diagnostic test for the direct, qualitative detection of the Clostridioides difficile Toxin A gene (tcdA) in unformed stool specimens of patients suspected of having Clostridioides difficile-infection (CDI). The Romi C. difficile Assay is intended for use as an aid in diagnosis of CDI. The assay utilizes helicase-dependent amplification (HDA) for the amplification of a highly conserved fragment of the Toxin A gene sequence. Performed By: #### L [id number] ####[facility] ([facility])[address] [place] [address] CONSULTon 11-15-2023 CONSULT Normal [facility] HEPATIC FUNCTION PANELon Albumin [Mass/Vol] 2.1 g/dL Low 3.5-5.7 [facility] Comment on above: Performed By: #### L [id number] ####[facility] (BE[facility]ER)[address] [place] [address] ALP [Catalytic activity/Vol] 65 U/L Normal 34-104 [facility] Comment on above: Performed By: #### L [id number] ####[facility] (BE[facility]ER)[address] [place] [address] ALT [Catalytic activity/Vol] 647 U/L High 7-52 [facility] Comment on above: Performed By: #### L [id number] ####[facility] (BE[facility]ER)[address] [place] [address] AST [Catalytic activity/Vol] 1580 U/L High 13-39 [facility] Comment on above: Performed By: #### L [id number] ####[facility] (BE[facility]ER)[address] [place] [address] Bilirubin [Mass/Vol] 1.0 mg/dL Normal 0.3-1.0 [facility] Comment on above: Performed By: #### L [id number] ####[facility] (BE[facility]ER)[address] [place] [address] Magnesium [Mass/Vol] 0.5 mg/dL High 0-0.2 [facility] Comment on above: Performed By: #### L [id number] ####[facility] ([facility])[address] [place] [address] Protein [Mass/Vol] 3.2 g/dL Low 6.0-8.3 [facility] Comment on above: Performed By: #### L [id number] ####[facility] ([facility])[address] [place] [address] LACTIC ACID WITH 4 HOUR REFL EXon 11-15-2023 LACTATE (MMOL/L) IN SER/PLAS 13.2 mmol/L Critically high 0.5-2.2 [facility] Comment on above: Result Comment: M-NM EVIOUS CRITICAL RESULTPrevious result verified on 11/15/2023 1231 on specimen/case [id number] called with component Lactate for procedure Lactic acid, plasma with value 16.9 mmol/L. Performed By: #### L [id number] ####[facility] ([facility])[address] [place] [address] LACTIC ACID, PLASMAon 2023 LACTATE (MMOL/L) IN SER/PLAS 16.9 mmol/L Critically high 0.5-2.2 [facility] Comment on above: Result Comment: Prev ious result verified on 11/15/2023 1055 on specimen/case [id number] called with component Lactate for procedure Lactic acid, plasma with value 17.0 mmol/L. Performed By: #### L [id number] ####[facility] [place] [address] LACTATE (MMOL/L) IN SER/PLAS 17.0 mmol/L Critically high 0.5-2.2 [facility] Comment on above: Performed By: #### L [id number] ####[facility] [place] [address] MAGNESIUMon 11-15-2023 Magnesium [Mass/Vol] 2.5 mg/dL Normal 1.9-2.7 [facility] Comment on above: Performed By: #### L [id number] ####[facility] ([facility])[address] [place] [address] Magnesium [Mass/Vol] 1.6 mg/dL Low 1.9-2.7 [facility] Comment on above: Performed By: #### L [id number] ####[facility] ([facility])[address] [place] [address] MANUAL DIFFERENTIALon 2023 ANISOCYTOSIS PRESENCE IN BLOOD BY LIGHT MICROSCOPY Moderate Normal [facility] Comment on above: Performed By: #### L [id number] ####[facility] ([facility])[address] [place] [address] BASOPHILS (10*3/UL) IN BLOOD BY CALCULATION 0.00 10*3/uL Normal 0.00-0.20 [facility] Comment on above: Performed By: #### L [id number] ####[facility] ([facility])[address] [place] [address] BASOPHILS/100 LEUKOCYTES IN BLOOD BY AUTOMATED COUNT 0.0 % Normal 0.0-1.0 [facility] Comment on above: Performed By: #### L [id number] ####[facility] ([facility])[address] [place] [address] EOSINOPHILS (10*3/UL) IN BLOOD BY CALCULATION 0.00 10*3/uL Normal 0.00-0.50 [facility] Comment on above: Performed By: #### L [id number] ####[facility] ([facility])[address] [place] [address] EOSINOPHILS/100 LEUKOCYTES IN BLOOD BY AUTOMATED COUNT 0.0 % Normal 0.0-6.0 [facility] Comment on above: Performed By: #### L [id number] ####[facility] ([facility])[address] [place] [address] LYMPHOCYTES (10*3/UL) IN BLOOD BY CALCULATION 2.51 10*3/uL Normal 1.20-4.00 [facility] Comment on above: Performed By: #### L [id number] ####[facility] ([facility])[address] [place], [place] [address] LYMPHOCYTES/100 LEUKOCYTES IN BLOOD BY AUTOMATED COUNT 7.3 % Low 20.0-45.0 [facility] Comment on above: Performed By: #### L [id number] ####[facility] ([facility])[address] [place] [address] MONOCYTES (10*3/UL) IN BLOOD BY CALCUATION 0.93 10*3/uL Normal 0.10-1.00 [facility] Comment on above: Performed By: #### L [id number] ####[facility] ([facility])[address] [place] [place], [place] [address] MONOCYTES/100 LEUKOCYTES IN BLOOD BY AUTOMATED COUNT 2.7 % Low 5.0-12.0 [facility] Comment on above: Performed By: #### L [id number] ####[facility] ([facility])[address] [place], [place] [address] MYELOCYTES (10*3/UL) IN BLOOD BY CALCULATION 0.93 10*3/uL High 0.00 [facility] Comment on above: Performed By: #### L [id number] ####[facility] ([facility])[address] [place] [address] MYELOCYTES/100 LEUKOCYTES IN BLOOD CELLAVISION 2.7 % High 0.0-0.0 [facility] Comment on above: Performed By: #### L [id number] ####[facility] ([facility])[address] [place], [place] [address] NEUTROPHILS (10*3/UL) IN BLOOD BY CALCULATION 30.0 10*3/uL High 1.6-7.6 [facility] Comment on above: Performed By: #### L [id number] ####[facility] ([facility])[address] [place] [address] NEUTROPHILS/100 LEUKOCYTES IN BLOOD BY AUTOMATED COUNT 87.3 % High 40.0-72.0 [facility] Comment on above: Performed By: #### L [id number] ####[facility] ([facility])[address] [place] [address] PLASMA CELLS/100 LEUKOCYTES IN BLOOD 0 % Normal 0 [facility] Comment on above: Performed By: #### L [id number] ####[facility] ([facility])[address] [place] [address] PLATELETS GIANT PRESENCE IN BLOOD BY LIGHT MICROSCOPY Present Normal [facility] Comment on above: Performed By: #### L [id number] ####[facility] ([facility])[address] [place] [address] POIKILOCYTOSIS (PRESENCE) IN BLOOD BY LIGHT MICROSCOPY Slight Normal [facility] Comment on above: Performed By: #### L [id number] ####[facility] ([facility])[address] [place] [address] POLYCHROMASIA IN BLOOD BY LIGHT MICROSCOPY Slight Normal [facility] Comment on above: Performed By: #### L [id number] ####[facility] ([facility])[address] [address] SMUDGE CELLS/100 LEUKOCYTES IN BLOOD CELLAVISION Present Normal [facility] Comment on above: Performed By: #### L [id number] ####[facility] ([facility])[address] [place] [address] VARIANT LYMPHOCYTES (10*3/UL) IN BLOOD BY CALCULATION 0.00 10*3/uL Normal 0.00 [facility] Comment on above: Performed By: #### L [id number] ####[facility] ([facility])[address] [place] [address] VARIANT LYMPHOCYTES/100 LEUKOCYTES IN BLOOD CELLAVISION 0.0 % Normal 0.0-0.0 [facility] Comment on above: Performed By: #### L [id number] ####[facility] ([facility])[address] [place] [address] NURSNOTEon 11-15-2023 NURSNOTE Normal [facility] NURSNOTE Normal [facility] PHOSPHORUSon 11-15-2023 Magnesium [Mass/Vol] 8.6 mg/dL High 2.5-5.0 [facility] Comment on above: Performed By: #### L [id number] ####[facility] ([facility])[address] [place] [address] Magnesium [Mass/Vol] 6.0 mg/dL High 2.5-5.0 [facility] Comment on above: Performed By: #### L [id number] ####[facility] ([facility])[address] [place] [address] POCT GLUCOSE METER UNSOLICIT ED RESULTSon 11-15-2023 Glucose [Mass/Vol] 165 mg/dL High 70-105 [facility] Comment on above: Order Comment: Waive d Testing in the ED is performed under the ED CLIA certificate #[id number]. Result Comment: [email or web address] [email or web address] Performed By: #### L [id number] ####[facility] ([facility])[address] [place] [address] Glucose [Mass/Vol] 208 mg/dL High 70-105 [facility] Comment on above: Order Comment: Waive d Testing in the ED is performed under the ED CLIA certificate #[id number]. Result Comment: [facility] Performed By: #### L [id number] ####[facility] ([facility])[address] [place] [address] POCT PERFUSION PANEL UNSOLIC ITED RESULTSon 11-15-2023 CO2 [Moles/Vol] 20.0 mmol/L Low 21.0-29.0 [facility] Comment on above: Performed By: #### L [id number] ####[facility] ([facility])[address] [place] [address] Glucose [Mass/Vol] 210 mg/dL High 70-105 [facility] Comment on above: Performed By: #### L [id number] ####[facility] ([facility])[address] [place] [address] HCO3 (Bld) [Moles/Vol] 18.9 mmol/L Low 23.0-28.0 [facility] Comment on above: Performed By: #### L [id number] ####[facility] [place] [address] Hematocrit (Bld) [Volume fraction] 26 % Low 38-51 [facility] Comment on above: Performed By: #### L [id number] ####[facility] ([facility])[address] [place] [address] Hemoglobin (Bld) [Mass/Vol] 8.8 g/dL Low 12.0-17.0 [facility] Comment on above: Performed By: #### L [id number] ####[facility] ([facility])[address] [place] [address] POCT BASE EXCESS -7.0 mmol/L Low -2.0-3.0 [facility] Comment on above: Performed By: #### L [id number] ####[facility] ([facility])[address] [place] [address] POCT IONIZED CALCIUM 1.15 mmol/L Normal 1.12-1.32 [facility] Comment on above: Performed By: #### L [id number] ####[facility] ([facility])[address] [place] [address] POCT PCO2 39.7 mmHg Low 41.0-51.0 [facility] Comment on above: Performed By: #### L [id number] ####[facility] [place] [address] POCT PH 7.29 Low 7.31-7.41 [facility] Comment on above: Performed By: #### L [id number] ####[facility] ([facility]ER)[address] [place] [address] POCT PO2 68 mmHg Low 80-105 [facility] Comment on above: Performed By: #### L [id number] ####[facility] ([facility])[address] [place] [address] POCT SO2 91 % Low 95-98 [facility] Comment on above: Performed By: #### L [id number] ####[facility] ([facility])[address] [place] [address] Potassium [Moles/Vol] 3.8 mmol/L Normal 3.5-4.9 [place] Comment on above: Performed By: #### L [id number] ####[facility] ([facility])[address] [place] [address] Sodium [Moles/Vol] 142 mmol/L Normal 138.0-146.0 [facility] Comment on above: Performed By: #### L [id number] ####[facility] ([facility])[address] [place] [address] POTASSIUM, WHOLE BLOODon Potassium [Moles/Vol] 3.1 mmol/L Low 3.5-5.1 [facility] Comment on above: Performed By: #### P OTASSIUM, WHOLE BLOOD ####[facility] RESPIRATORY [id number] [place] [address] [facility] Potassium [Moles/Vol] 3.9 mmol/L Normal 3.5-5.1 [facility] Comment on above: Performed By: #### P OTASSIUM, WHOLE BLOOD ####[facility] RESPIRATORY [id number] [place] [address] [facility] Potassium [Moles/Vol] 3.8 mmol/L Normal 3.5-5.1 [facility] Comment on above: Performed By: #### P OTASSIUM, WHOLE BLOOD ####[facility] RESPIRATORY [id number] [place] [address] [place] Potassium [Moles/Vol] 5.1 mmol/L Normal 3.5-5.1 [place] Comment on above: Performed By: #### P OTASSIUM, WHOLE BLOOD ####[facility] RESPIRATORY [id number] [place] [address] [place] PROTIME-INRon 11-15-2023 INR IN PPP BY COAGULATION ASSAY 11.87 Critically high 0.90-1.10 [facility] Comment on above: Result Comment: [facility] P RECOMMENDED INR FOR WARFARIN THERAPY CONDITION INRPROPHYLAXIS OF VENOUS THROMBOSIS 2-3(HIGH-RISK SURGERY)TREATMENT OF VENOUS THROMBOSIS 2-3TREATMENT OF PULMONARY EMBOLISM 2-3PREVENTION OF SYSTEMIC EMBOLISM: 2-3 ACUTE MYOCARDIAL INFARCTION TISSUE HEART VALVES VALVULAR HEART DISEASE ATRIAL FIBRILLATION RECURRENT SYSTEMIC EMBOLISMMECHANICAL HEART VALVE 2.5-3.5 FROM: ORAL ANTICOAGULANTS. MECHANISM OF ACTION, CLINICAL EFFECTIVENESS, AND OPTIMAL THERAPEUTIC RANGE. CHEST 1995;108:231S-246S. Performed By: #### L [id number] ####[facility] ([facility])[address] [place] [address] PROTHROMBIN TIME (PT) IN PPP BY COAGULATION ASSAY 92.6 Seconds Critically high 12.3-14.8 [facility] Comment on above: Performed By: #### L [id number] ####[facility] ([facility])[address] [place] [address] INR IN PPP BY COAGULATION ASSAY 12.96 Critically high 0.90-1.10 [facility] Comment on above: Result Comment: [facility] P RECOMMENDED INR FOR WARFARIN THERAPY CONDITION INRPROPHYLAXIS OF VENOUS THROMBOSIS 2-3(HIGH-RISK SURGERY)TREATMENT OF VENOUS THROMBOSIS 2-3TREATMENT OF PULMONARY EMBOLISM 2-3PREVENTION OF SYSTEMIC EMBOLISM: 2-3 ACUTE MYOCARDIAL INFARCTION TISSUE HEART VALVES VALVULAR HEART DISEASE ATRIAL FIBRILLATION RECURRENT SYSTEMIC EMBOLISMMECHANICAL HEART VALVE 2.5-3.5 FROM: ORAL ANTICOAGULANTS. MECHANISM OF ACTION, CLINICAL EFFECTIVENESS, AND OPTIMAL THERAPEUTIC RANGE. CHEST 1995;108:231S-246S. Performed By: #### L [id number] ####[facility] (BEAKER)[address] [place] [address] PROTHROMBIN TIME (PT) IN PPP BY COAGULATION ASSAY 99.2 Seconds Critically high 12.3-14.8 [facility] Comment on above: Performed By: #### L [id number] ####[facility] (BE[facility]ER)[address] [place] [address] SODIUM, WHOLE BLOODon 2023 SODIUM, WHOLE BLOOD 143 Normal 136-145 [facility] Comment on above: Performed By: #### S ODIUM, WHOLE BLOOD ####[facility] RESPIRATORY [id number] [place] [address] [place] SODIUM, WHOLE BLOOD 142 Normal 136-145 [facility] Comment on above: Performed By: #### S ODIUM, WHOLE BLOOD ####[facility] RESPIRATORY [id number] [place] [address] [facility] SODIUM, WHOLE BLOOD 140 Normal 136-145 [facility] Comment on above: Performed By: #### S ODIUM, WHOLE BLOOD ####[facility] RESPIRATORY [id number] [place] [address] [facility] SODIUM, WHOLE BLOOD 138 Normal 136-145 [facility] Comment on above: Performed By: #### S ODIUM, WHOLE BLOOD ####[facility] RESPIRATORY [id number] [place] [address] [place] TROPONIN Ion 11-15-2023 Troponin I.cardiac [Mass/Vol] 0.10 ng/mL High 0.00-0.04 [facility] Comment on above: Performed By: #### L [id number] ####[facility] [place] [address] VANCOMYCIN, PEAKon VANCOMYCIN (UG/ML) IN SER/PLAS - PEAK 21.0 ug/mL Normal 20.0-50.0 [facility] Comment on above: Performed By: #### L [id number] ####[facility] [place] [address] VITAMIN D 25 HYDROXYon 11-14 CALCIDIOL (25 [place] VITAMIN D3) (NG/ML) IN SER/PLAS 26.1 ng/mL Low 30.0-80.0 [facility] Comment on above: Result Comment: >80. 0 Toxicity possible Performed By: #### L [id number] ####[facility] ([facility])[address] [place] [address] 30on 11-14-2023 30 Normal [facility] 30 Normal [facility] ANESon 11-14-2023 ANES Normal [facility] ARTERIAL BLOOD GAS WITH CO-O XIMETRYon 11-14-2023 Base excess Calc (Bld) [Moles/Vol] 2.2 mmol/L Normal -2.0-3.0 [facility] Comment on above: Order Comment: Pt in tubated in [place] Performed By: #### L [id number] ####[facility] RESPIRATORY [id number] [place] [address] [facility] CARBOXYHEMOGLOBIN/HEM OGLOBIN TOTAL % IN BLOOD 1.5 % Normal 0.0-3.0 [facility] Comment on above: Order Comment: Pt in tubated in [place] Performed By: #### L [id number] ####[facility] RESPIRATORY [id number] [place] [address] [facility] CO2 (Bld) [Partial pressure] 39 mm[Hg] Normal 35-48 [facility] Comment on above: Order Comment: Pt in tubated in [place] Performed By: #### L [id number] ####[facility] RESPIRATORY [id number] [place] [address] [facility] DEOXYGENATED HEMOGLOBIN IN BLOOD 0.9 % Low 1-5 [facility] Comment on above: Order Comment: Pt in tubated [place] Performed By: #### L [id number] ####[facility] RESPIRATORY [id number] [place] [address] [facility] HCO3 (Bld) [Moles/Vol] 26.5 mmol/L Normal 21.0-28.0 [facility] Comment on above: Order Comment: Pt in tubated [place] Performed By: #### L [id number] ####[facility] RESPIRATORY [id number] [place] [address] [facility] Hemoglobin (Bld) [Mass/Vol] 9.0 g/dL Low 11.7-17.4 [facility] Comment on above: Order Comment: Pt in tubated [place] Performed By: #### L [id number] ####[facility] RESPIRATORY [id number] [place] [address] [facility] METHEMOGLOBIN/100 IN BLOOD 0.2 % Normal 0.0-1.5 [facility] Comment on above: Order Comment: Pt in tubated [place] Performed By: #### L [id number] ####[facility] RESPIRATORY [id number] [place] [address] [facility] Oxygen (Bld) [Partial pressure] 125 mm[Hg] High 83-100 [facility] Comment on above: Order Comment: Pt in tubated [place] Performed By: #### L [id number] ####[facility] RESPIRATORY [id number] [place] [address] [facility] OXYGEN SATURATION (%) IN ARTERIAL BLOOD 99.1 % High 94.0-98.0 [facility] Comment on above: Order Comment: Pt in tubated [place] Performed By: #### L [id number] ####[facility] RESPIRATORY [id number] [place] [address] [facility] OXYGENATED HEMOGLOBIN IN BLOOD 97.4 % High 90.0-95.0 [facility] Comment on above: Order Comment: Pt in tubated [place] Performed By: #### L [id number] ####[facility] RESPIRATORY [id number] [place] [address] [facility] pH (Bld) 7.44 [pH] Normal 7.35-7.45 [facility] Comment on above: Order Comment: Pt in tubated [place] Performed By: #### L [id number] ####[facility] RESPIRATORY [id number] [place] [address] [facility] SOURCE OF OXYGEN [facility] Comment on above: Order Comment: Pt in tubated [place] Performed By: #### L [id number] ####[facility] [facility] [id number] [place] [address] [facility] Base excess Calc (Bld) [Moles/Vol] 7.0 mmol/L High -2.0-3.0 [facility] Comment on above: Performed By: #### L [id number] ####[facility] RESPIRATORY [id number] [address] [place] [address] [facility] CARBOXYHEMOGLOBIN/HEM OGLOBIN TOTAL % IN BLOOD 1.4 % Normal 0.0-3.0 [facility] Comment on above: Performed By: #### L [id number] ####[facility] RESPIRATORY [id number] [address] [place] [address] [place] CO2 (Bld) [Partial pressure] 33 mm[Hg] Low 35-48 [facility] Comment on above: Performed By: #### L [id number] ####[facility] RESPIRATORY [id number] [address] [place] [address] [facility] DEOXYGENATED HEMOGLOBIN IN BLOOD 1.2 % Normal 1-5 [facility] Comment on above: Performed By: #### L [id number] ####[facility] RESPIRATORY [id number] [place] [address] [place] HCO3 (Bld) [Moles/Vol] 29.5 mmol/L High 21.0-28.0 [facility] Comment on above: Performed By: #### L [id number] ####[facility] RESPIRATORY [id number] [place] [address] [place] Hemoglobin (Bld) [Mass/Vol] 9.7 g/dL Low 11.7-17.4 [facility] Comment on above: Performed By: #### L [id number] ####[facility] RESPIRATORY [id number] [place] [address] [facility] METHEMOGLOBIN/100 IN BLOOD 0.7 % Normal 0.0-1.5 [facility] Comment on above: Performed By: #### L [id number] ####[facility] RESPIRATORY [id number] [place] [address] [facility] Oxygen (Bld) [Partial pressure] 135 mm[Hg] High 83-100 [facility] Comment on above: Performed By: #### L [id number] ####[facility] RESPIRATORY [id number] [place] [address] [facility] OXYGEN SATURATION (%) IN ARTERIAL BLOOD 98.8 % High 94.0-98.0 [facility] Comment on above: Performed By: #### L [id number] ####[facility] RESPIRATORY [id number] [place] [address] [facility] OXYGENATED HEMOGLOBIN IN BLOOD 96.7 % High 90.0-95.0 [facility] Comment on above: Performed By: #### L [id number] ####[facility] RESPIRATORY [id number] [place] [address] [facility] pH (Bld) 7.56 [pH] Critically high 7.35-7.45 [facility] Comment on above: Performed By: #### L [id number] ####[facility] RESPIRATORY [id number] [place] [address] [facility] SOURCE OF OXYGEN Vent Normal [facility] Comment on above: Performed By: #### L [id number] ####[facility] RESPIRATORY [id number] [place] [address] [facility] BASIC METABOLIC PANELon 07-0 -2023 Anion gap [Moles/Vol] 12 mmol/L Normal 7-20 [place] Comment on above: Performed By: #### L [id number] ####[facility] LAB (BEAKER)[address] [place] [address] Calcium [Mass/Vol] 7.4 mg/dL Low 8.6-10.3 [facility] Comment on above: Performed By: #### L [id number] ####[facility] ([facility])[address] [place] [address] Chloride [Moles/Vol] 105 mmol/L Normal 98-107 [facility] Comment on above: Performed By: #### L [id number] ####[facility] ([facility])[address] [place] [address] CO2 [Moles/Vol] 31 mmol/L Normal 21-31 [facility] Comment on above: Performed By: #### L [id number] ####[facility] ([facility])[address] [place] [address] Creatinine [Mass/Vol] 0.91 mg/dL Normal 0.60-1.20 [place] Comment on above: Performed By: #### L [id number] ####[facility] ([facility])[address] [place] [address] GLOMERULAR FILTRATION RATE ML/MIN/1.73 SQ M.PREDICTED 64.2 mL/min/1.73m*2 Normal >60.0 [facility] Comment on above: Result Comment: [facility]???s estimated glomerular filtration rate (eGFR) will [...] of individuals. Performed By: #### L [id number] ####[facility] [place] [address] Glucose [Mass/Vol] 120 mg/dL High 70-100 [facility] Comment on above: Performed By: #### L [id number] ####[facility] (BEAKER)[address] [place] [address] Potassium [Moles/Vol] 4.1 mmol/L Normal 3.5-5.1 [facility] Comment on above: Performed By: #### L [id number] ####[facility] [place] [address] Sodium [Moles/Vol] 144 mmol/L Normal 136-145 [facility] Comment on above: Performed By: #### L [id number] ####[facility] [place] [address] Urea nitrogen [Mass/Vol] 24 mg/dL Normal 7-25 [facility] Comment on above: Performed By: #### L [id number] ####[facility] ([facility])[address] [place] [address] UREA NITROGEN/CREATININE (MASS RATIO) IN SER/PLAS 26.4 Normal [facility] Comment on above: Performed By: #### L [id number] ####[facility] ([facility])[address] [place] [address] CALCIUM, IONIZEDon CALCIUM IONIZED (MMOL/L) IN BLOOD 1.17 mmol/L Normal 1.15-1.33 [facility] Comment on above: Performed By: #### C ALCIUM, IONIZED ####[facility] RESPIRATORY [id number] [place] [address] [place] CBC WITH AUTO DIFFERENTIALon 11-14-2023 Basophils (Bld) [#/Vol] 0.03 10*3/uL Normal 0.00-0.20 [facility] Comment on above: Performed By: #### L [id number] ####[facility] [place] [address] Basophils/100 WBC (Bld) 0.4 % Normal 0.0-1.0 [facility] Comment on above: Performed By: #### L [id number] ####[facility] [place] [address] Eosinophils (Bld) [#/Vol] 0.00 10*3/uL Normal 0.00-0.50 [facility] Comment on above: Performed By: #### L [id number] ####[facility] (BEAKER)[address] [place] [address] Eosinophils/100 WBC (Bld) 0.0 % Normal 0.0-6.0 [facility] Comment on above: Performed By: #### L [id number] ####[facility] [place] [address] Erythrocyte distribution width (RBC) [Ratio] 16.0 % High 11.5-15.0 [facility] Comment on above: Performed By: #### L [id number] ####[facility] (BEAKER)[address] [place] [address] ERYTHROCYTE MEAN CORPUSCULAR HEMOGLOBIN CONCENTRATION (G/DL) BY AUTOMATED 30.2 g/dL Low 32.0-35.0 [facility] Comment on above: Performed By: #### L [id number] ####[facility] (BEAKER)[address] [place] [address] Hematocrit (Bld) [Volume fraction] 32.1 % Low 36.0-48.0 [facility] Comment on above: Performed By: #### L [id number] ####[facility] (BEAKER)[address] [place] [address] Hemoglobin (Bld) [Mass/Vol] 9.7 g/dL Low 12.0-15.0 [facility] Comment on above: Performed By: #### L [id number] ####[facility] (BEAKER)[address] [place] [address] Immature granulocytes (Bld) [#/Vol] 0.07 10*3/uL Normal 0.00-0.20 [facility] Comment on above: Performed By: #### L [id number] ####[facility] (BEAKER)[address] [place] [address] Immature granulocytes/100 WBC (Bld) 0.8 % Normal 0.0-1.0 [facility] Comment on above: Performed By: #### L [id number] ####[facility] ([facility])[address] [place] [address] Lymphocytes (Bld) [#/Vol] 1.34 10*3/uL Normal 1.20-4.00 [facility] Comment on above: Performed By: #### L [id number] ####[facility] ([facility])[address] [place] [address] Lymphocytes/100 WBC (Bld) 15.9 % Low 20.0-45.0 [facility] Comment on above: Performed By: #### L [id number] ####[facility] ([facility])[address] [place] [address] MCH (RBC) [Entitic mass] 29.1 pg Normal 27.0-33.0 [facility] Comment on above: Performed By: #### L [id number] ####[facility] ([facility])[address] [place] [address] MCV (RBC) [Entitic vol] 96.4 fL Normal 82.0-98.0 [facility] Comment on above: Performed By: #### L [id number] ####[facility] ([facility])[address] [place] [address] Monocytes (Bld) [#/Vol] 0.77 10*3/uL Normal 0.10-1.00 [facility] Comment on above: Performed By: #### L [id number] ####[facility] ([facility])[address] [place] [address] Monocytes/100 WBC (Bld) 9.1 % Normal 5.0-12.0 [facility] Comment on above: Performed By: #### L [id number] ####[facility] ([facility])[address] [place] [address] Neutrophils (Bld) [#/Vol] 6.22 10*3/uL Normal 1.60-7.60 [facility] Comment on above: Performed By: #### L [id number] ####[facility] ([facility])[address] [place] [address] Neutrophils/100 WBC (Bld) 73.8 % High 40.0-72.0 [facility] Comment on above: Performed By: #### L [id number] ####[facility] ([facility])[address] [place] [address] NRBC (PER 100 WBCS) BY AUTOMATED COUNT 0.0 % Normal 0 [facility] Comment on above: Performed By: #### L [id number] ####[facility] ([facility])[address] [place] [address] PLATELETS (10*3/UL) IN BLOOD AUTOMATED COUNT 223 10*3/uL Normal 150-400 [facility] Comment on above: Performed By: #### L [id number] ####[facility] ([facility])[address] [place] [address] RBC (Bld) [#/Vol] 3.33 10*6/uL Low 3.80-5.00 [facility] Comment on above: Performed By: #### L [id number] ####[facility] ([facility])[address] [place] [address] WBC (Bld) [#/Vol] 8.43 10*3/uL Normal 4.00-10.60 [facility] Comment on above: Performed By: #### L [id number] ####[facility] ([facility])[address] [place] [address] CONSULTon 11-14-2023 CONSULT Normal [facility] HPon 11-14-2023 HP Normal [facility] MAGNESIUMon 11-14-2023 Magnesium [Mass/Vol] 1.7 mg/dL Low 1.9-2.7 [facility] Comment on above: Performed By: #### L [id number] ####[facility] ([facility])[address] [place] [address] OPNOTEon 11-14-2023 OPNOTE Normal [facility] PHOSPHORUSon 11-14-2023 Magnesium [Mass/Vol] 4.5 mg/dL Normal 2.5-5.0 [facility] Comment on above: Performed By: #### L [id number] ####[facility] (BELendingStandard)[address] [place] [address] POCT GLUCOSE METER UNSOLICIT ED RESULTSon 11-14-2023 Glucose [Mass/Vol] 181 mg/dL High 70-105 [facility] Comment on above: Order Comment: Waive d Testing in the ED is performed under the ED CLIA certificate #[id number]. Result Comment: czyd orc Performed By: #### L [id number] ####[facility] (LendingStandard)[address] [place] [address] Glucose [Mass/Vol] 120 mg/dL High 70-105 [facility] Comment on above: Order Comment: Waive d Testing in the ED is performed under the ED CLIA certificate #[id number]. Result Comment: epaw low Performed By: #### L [id number] ####[facility] (Pwinty)[address] [place] [address] Glucose [Mass/Vol] 113 mg/dL High 70-105 [facility] Comment on above: Order Comment: Waive d Testing in the ED is performed under the ED CLIA certificate #[id number]. Result Comment: epoo [email or web address] Performed By: #### L [id number] ####[facility] (Pwinty)[address] [place] [address] Glucose [Mass/Vol] 131 mg/dL High 70-105 [facility] Comment on above: Order Comment: Waive d Testing in the ED is performed under the ED CLIA certificate #[id number]. Result Comment: lzwo judith Performed By: #### L [id number] ####[facility] (BELendingStandard)[address] [place] [address] Glucose [Mass/Vol] 111 mg/dL High 70-105 [facility] Comment on above: Order Comment: Waive d Testing in the ED is performed under the ED CLIA certificate #[id number]. Result Comment: lzwo judith Performed By: #### L [id number] ####[facility] ([facility])[address] [place] [address] POTASSIUM, WHOLE BLOODon Potassium [Moles/Vol] 4.0 mmol/L Normal 3.5-5.1 [place] Comment on above: Performed By: #### P OTASSIUM, WHOLE BLOOD ####[facility] RESPIRATORY [id number] [place] [address] [place] SODIUM, WHOLE BLOODon 2023 SODIUM, WHOLE BLOOD 139 Normal 136-145 [facility] Comment on above: Performed By: #### S ODIUM, WHOLE BLOOD ####[facility] RESPIRATORY [id number] [place] [address] [facility] APTTon 11-13-2023 ACTIVATED PARTIAL THROMBOPLASTIN TIME IN PPP BY COAGULATION ASSAY 34.0 Seconds Normal 25.0-35.0 [facility] Comment on above: Result Comment: Clin ical significance of the APTT is questionable in the presence of heparin. Performed By: #### L [id number] ####[facility] ([facility])[address] [place] [address] BASIC METABOLIC PANELon 07-0 Anion gap [Moles/Vol] 16 mmol/L Normal 7-20 [place] Comment on above: Performed By: #### L [id number] ####[facility] ([facility])[address] [place] [address] Calcium [Mass/Vol] 7.8 mg/dL Low 8.6-10.3 [facility] Comment on above: Performed By: #### L [id number] ####[facility] ([facility])[address] [place] [address] Chloride [Moles/Vol] 104 mmol/L Normal 98-107 [facility] Comment on above: Performed By: #### L [id number] ####[facility] (BEAKER)[address] [place] [address] CO2 [Moles/Vol] 27 mmol/L Normal 21-31 [facility] Comment on above: Performed By: #### L [id number] ####[facility] [place] [address] Creatinine [Mass/Vol] 0.91 mg/dL Normal 0.60-1.20 [place] Comment on above: Performed By: #### L [id number] ####[facility] ([facility])[address] [place] [address] GLOMERULAR FILTRATION RATE ML/MIN/1.73 SQ M.PREDICTED 64.2 mL/min/1.73m*2 Normal >60.0 [facility] Comment on above: Result Comment: [facility]???s estimated glomerular filtration rate (eGFR) will [...] of individuals. Performed By: #### L [id number] ####[facility] ([facility])[address] [place] [address] Glucose [Mass/Vol] 125 mg/dL High 70-100 [facility] Comment on above: Performed By: #### L [id number] ####[facility] [place] [address] Potassium [Moles/Vol] 4.4 mmol/L Normal 3.5-5.1 [place] Comment on above: Performed By: #### L [id number] ####[facility] [place] [address] Sodium [Moles/Vol] 143 mmol/L Normal 136-145 [facility] Comment on above: Performed By: #### L [id number] ####[facility] (BEAKER)[address] [place] [address] Urea nitrogen [Mass/Vol] 23 mg/dL Normal 7-25 [facility] Comment on above: Performed By: #### L [id number] ####[facility] [place] [address] UREA NITROGEN/CREATININE (MASS RATIO) IN SER/PLAS 25.3 Normal [facility] Comment on above: Performed By: #### L [id number] ####[facility] ([facility])[address] [place] [address] CBC WITH AUTO DIFFERENTIALon 11-13-2023 Basophils (Bld) [#/Vol] 0.03 10*3/uL Normal 0.00-0.20 [facility] Comment on above: Performed By: #### L [id number] ####[facility] [place] [address] Basophils/100 WBC (Bld) 0.3 % Normal 0.0-1.0 [facility] Comment on above: Performed By: #### L [id number] ####[facility] [place] [address] Eosinophils (Bld) [#/Vol] 0.00 10*3/uL Normal 0.00-0.50 [facility] Comment on above: Performed By: #### L [id number] ####[facility] [place] [address] Eosinophils/100 WBC (Bld) 0.0 % Normal 0.0-6.0 [facility] Comment on above: Performed By: #### L [id number] ####[facility] [place] [address] Erythrocyte distribution width (RBC) [Ratio] 15.9 % High 11.5-15.0 [facility] Comment on above: Performed By: #### L [id number] ####[facility] (BEAKER)[address] [place] [address] ERYTHROCYTE MEAN CORPUSCULAR HEMOGLOBIN CONCENTRATION (G/DL) BY AUTOMATED 30.4 g/dL Low 32.0-35.0 [facility] Comment on above: Performed By: #### L [id number] ####[facility] (BEAKER)[address] [place] [address] Hematocrit (Bld) [Volume fraction] 36.2 % Normal 36.0-48.0 [facility] Comment on above: Performed By: #### L [id number] ####[facility] (BEAKER)[address] [place] [address] Hemoglobin (Bld) [Mass/Vol] 11.0 g/dL Low 12.0-15.0 [facility] Comment on above: Performed By: #### L [id number] ####[facility] (BEAKER)[address] [place] [address] Immature granulocytes (Bld) [#/Vol] 0.09 10*3/uL Normal 0.00-0.20 [facility] Comment on above: Performed By: #### L [id number] ####[facility] (BEAKER)[address] [place] [address] Immature granulocytes/100 WBC (Bld) 0.9 % Normal 0.0-1.0 [facility] Comment on above: Performed By: #### L [id number] ####[facility] (BEAKER)[address] [place] [address] Lymphocytes (Bld) [#/Vol] 1.28 10*3/uL Normal 1.20-4.00 [facility] Comment on above: Performed By: #### L [id number] ####[facility] (BEAKER)[address] [place] [address] Lymphocytes/100 WBC (Bld) 12.4 % Low 20.0-45.0 [facility] Comment on above: Performed By: #### L [id number] ####[facility] (BEAKER)[address] [place] [address] MCH (RBC) [Entitic mass] 28.8 pg Normal 27.0-33.0 [facility] Comment on above: Performed By: #### L [id number] ####[facility] (BEAKER)[address] [place] [address] MCV (RBC) [Entitic vol] 94.8 fL Normal 82.0-98.0 [facility] Comment on above: Performed By: #### L [id number] ####[facility] (BEAKER)[address] [place] [address] Monocytes (Bld) [#/Vol] 0.73 10*3/uL Normal 0.10-1.00 [facility] Comment on above: Performed By: #### L [id number] ####[facility] (BEAKER)[address] [place] [address] Monocytes/100 WBC (Bld) 7.1 % Normal 5.0-12.0 [facility] Comment on above: Performed By: #### L [id number] ####[facility] (BEAKER)[address] [place] [address] Neutrophils (Bld) [#/Vol] 8.21 10*3/uL High 1.60-7.60 [facility] Comment on above: Performed By: #### L [id number] ####[facility] (BEAKER)[address] [place] [address] Neutrophils/100 WBC (Bld) 79.3 % High 40.0-72.0 [facility] Comment on above: Performed By: #### L [id number] ####[facility] (BEAKER)[address] [place] [address] NRBC (PER 100 WBCS) BY AUTOMATED COUNT 0.0 % Normal 0 [facility] Comment on above: Performed By: #### L [id number] ####[facility] (BEAKER)[address] [place] [address] PLATELETS (10*3/UL) IN BLOOD AUTOMATED COUNT 262 10*3/uL Normal 150-400 [facility] Comment on above: Performed By: #### L [id number] ####[facility] (SANDRA)[address] [place] [address] RBC (Bld) [#/Vol] 3.82 10*6/uL Normal 3.80-5.00 [facility] Comment on above: Performed By: #### L [id number] ####[facility] [place] [address] WBC (Bld) [#/Vol] 10.34 10*3/uL Normal 4.00-10.60 [facility] Comment on above: Performed By: #### L [id number] ####[facility] (SANDRA)[address] [place] [address] CONSULTon 11-13-2023 CONSULT Normal [facility] CT FEMUR LEFT WO IV CONTRAST on 11-13-2023 CT FEMUR LEFT WO IV CONTRAST Invalid Interpretation Code [facility] HPon 11-13-2023 HP Normal [facility] MAGNESIUMon 11-13-2023 Magnesium [Mass/Vol] 1.8 mg/dL Low 1.9-2.7 [facility] Comment on above: Performed By: #### L [id number] ####[facility] (SANDRA)[address] [place] [address] PROTIME-INRon 11-13-2023 INR IN PPP BY COAGULATION ASSAY 1.79 High 0.90-1.10 [facility] Comment on above: Result Comment: ACCC [...] CHEST 1995;[id number]. Performed By: #### L [id number] ####[facility] ([facility])[address] [employer] [facility] [place] [address] PROTHROMBIN TIME (PT) IN PPP BY COAGULATION ASSAY 20.9 Seconds High 12.3-14.8 [facility] Comment on above: Performed By: #### L [id number] ####[facility] ([facility])[address] [place] [address] TROPONIN Ion 11-13-2023 Troponin I.cardiac [Mass/Vol] 0.02 ng/mL Normal 0.00-0.04 [facility] Comment on above: Performed By: #### L [id number] ####[facility] ([facility])[address] [employer] [place] [address] TYPE AND SCREENon 11-13-2023 AB SCREEN Negative Normal [facility] Comment on above: Performed By: #### L [id number] ####[facility]OD [facility], ABO group Nom (Bld) O Normal [facility] Comment on above: Performed By: #### L [id number] ####[facility] B[facility]OD [facility], RH TYPE IN BLOOD Positive Normal [facility] Comment on above: Performed By: #### L [id number] ####[facility]OD [facility], VIT D 25-OH LABCORPon 2022 Vitamin D, 25-Hydroxy 35.9 ng/mL Normal 30.0-100.0 [facility] Comment on above: Result Comment: Jadyn min D deficiency has been defined by the [place] [employer] and an Endocrine Society practice guideline as a level of serum 25-OH vitamin D less than 20 ng/mL (1,2). The Endocrine Society went on to further define vitamin D insufficiency as a level between 21 and 29 ng/mL (2). 1. IOM ([place] [employer]). 2010. Dietary reference intakes for calcium and D. [place]: The National Academies Press. 2. Yamilex MF, Florecita CAMP, Stella OTTO, et al. Evaluation, treatment, and prevention of vitamin D deficiency: an Endocrine Society clinical practice guideline. JCEM. 2010; 96(7):1911-30. Performed By: #### V ITADLC #### [facility] [address] [place] [address] Dr. Ashwin Key CBC AUTO DIFFon 08-22-2022 BASO # 0.0 103/ul Normal 0.0-0.1 [facility] Comment on above: Performed By: #### C BC #### [facility] [address] [place] [address] Dr. Ashwin Key Basophils/100 WBC (Bld) 0.5 % Normal 0.2-2.0 [facility] Comment on above: Performed By: #### C BC #### [facility] [address] [place] [address] Dr. Ashwin Key EO # 0.0 103/ul Normal 0.0-0.7 [facility] Comment on above: Performed By: #### C BC #### [facility] [address] [place] [address] Dr. Ashwin Key Eosinophils/100 WBC (Bld) 0.0 % Critically low 0.9-7.0 [facility] Comment on above: Performed By: #### C BC #### [facility] [address] [place] [address] Dr. Ashwin Key Erythrocyte distribution width (RBC) [Ratio] 14.7 % Normal 11.0-15.0 [facility] Comment on above: Performed By: #### C BC #### [facility] [address] [place] [address] Dr. Ashwin Key Hematocrit (Bld) [Volume fraction] 38.0 % Normal 36.0-48.0 [facility] Comment on above: Performed By: #### C BC #### [facility] [address] [place] [address] Dr. Ashwin Key Hemoglobin (Bld) [Mass/Vol] 11.5 g/dL Critically low 12.0-16.0 [facility] Comment on above: Performed By: #### C BC #### [facility] [address] [place] [address] Dr. Ashwin Key IG # 0.01 10e3/ul Normal 0.00-0.03 [facility] Comment on above: Performed By: #### C BC #### [facility] [address] [place] [address] Dr. Ashwin Key IG % 0.2 % Normal 0.0-0.5 [facility] Comment on above: Performed By: #### C BC #### [facility] [address] [place] [address] Dr. Ashwin Key LYMPH # 2.1 103/ul Normal 1.2-3.8 [facility] Comment on above: Performed By: #### C BC #### [facility] [address] [place] [address] Dr. Ashwin Key Lymphocytes/100 WBC (Bld) 48.4 % Normal 20.5-60.0 [facility] Comment on above: Performed By: #### C BC #### [facility] [address] [place] [address] Dr. Ashwin Key MANUAL DIFF REQ NO Normal [facility] Comment on above: Performed By: #### C BC #### [facility] [address] [place] [address] Dr. Ashwin Key MCH (RBC) [Entitic mass] 28.8 pg Normal 26.7-34.0 [facility] Comment on above: Performed By: #### C BC #### [facility] [address] [place] [address] Dr. Ashwin Key MCHC (RBC) [Mass/Vol] 30.3 g/dL Normal 29.9-35.2 [facility] Comment on above: Performed By: #### C BC #### [facility] [id number] Ashwin Key MCV (RBC) [Entitic vol] 95.0 fL Normal 81.0-99.0 [facility] Comment on above: Performed By: #### C BC #### [facility] [address] [address] [address] Ashwin Key MONO # 0.4 103/ul Normal 0.3-0.8 [facility] Comment on above: Performed By: #### C BC #### [facility] [address] [address] [address] Ashwin Key Monocytes/100 WBC (Bld) 9.3 % Normal 1.7-12.0 [facility] Comment on above: Performed By: #### C BC #### [facility] [address] [place] [address] Dr. Ashwin Key NEUT # 1.8 103/ul Normal 1.4-6.5 [facility] Comment on above: Performed By: #### C BC #### [facility] [address] [place] [address] Dr. Ashwin Key Neutrophils/100 WBC (Bld) 41.6 % Critically low 43.0-75.0 [facility] Comment on above: Performed By: #### C BC #### [facility] [address] [place] [address] Dr. Ashwin Key Platelet mean volume (Bld) [Entitic vol] 10.3 fL Normal 9.5-13.5 [facility] Comment on above: Performed By: #### C BC #### [facility] [address] [place] [address] Dr. Ashwin Key PLT 166 103/ul Normal 150-450 [facility] Comment on above: Performed By: #### C BC #### [facility] [address] [place] [address] Dr. Ashwin Key RBC 4.00 106/ul Critically low 4.20-5.40 [facility] Comment on above: Performed By: #### C BC #### [facility] [address] [place] [address] Dr. Ashwin Key WBC 4.4 103/ul Normal 4.0-11.0 [facility] Comment on above: Performed By: #### C BC #### [facility] [address] [address] [address] Ashwin Key GLYCOHEMOGLOBIN A1Con 2022 ADA RECOMMENDATION SEE BELOW Normal [facility] Comment on above: Result Comment: ADA RECOMMENDED LIMIT 4.0 - 6.0 ADA THERAPEUTIC TARGET < 7.0 ACTION SUGGESTED > 7.0 Performed By: #### A 1C #### [facility] [address] [address] [address] Ashwin Key Glucose [Mass/Vol] 105 mg/dL Normal [facility] Comment on above: Performed By: #### A 1C #### [facility] [address] [place] [address] Dr. Ashwin Key HbA1c (Bld) [Mass fraction] 5.3 % Normal 4.5-6.2 [facility] Comment on above: Performed By: #### A 1C #### [facility] [address] [place] [address] Dr. Ashwin Key LIPID PROFILEon 08-22-2022 CHOL-HDL RATIO NORM SEE BELOW Normal [facility] Comment on above: Result Comment: 3.3 - 4.4 LOW RISK 4.4 - 7.1 AVERAGE RISK 7.1 - 11.0 MODERATE RISK >11.0 HIGH RISK Performed By: #### U GURVINDER BUTTICRO #### [facility] [address] [address] [address] Ashwin Key Cholesterol [Mass/Vol] 103 mg/dL Normal <=200 [facility] Comment on above: Performed By: #### U GURVINDER BUTTICRO #### [facility] [address] [address] [address] Ashwin Key Cholesterol in HDL [Mass/Vol] 40 mg/dL Normal 40-60 [facility] Comment on above: Performed By: #### U GURVINDER BUTTICRO #### [facility] [address] [address] [address] Ashwin Key Cholesterol in LDL [Mass/Vol] 51.8 mg/dL Normal [facility] Comment on above: Performed By: #### U ACSJAZMIN UMICRO #### [facility] [address] [address] [address] Ashwin Key Cholesterol.total/Cho lesterol in HDL [Mass ratio] 2.6 {ratio} Normal [facility] Comment on above: Performed By: #### U ACSJAZMIN UMICRO #### [facility] [address] [address] [address] Ashwin Key HDL NORMAL > or = 60 mg/dl - LO W CARDIOVASCULAR RISK <40 mg/dl - HIGH CARDIOVASCULAR RISK Normal [facility] Comment on above: Performed By: #### U ACSJAZMIN UMICRO #### [facility] [address] [place] [address] Dr. Ashwin Key LDL CALC NORMAL SEE BELOW Normal [facility] Comment on above: Result Comment: <100 mg/dl OPTIMAL 100 - 129 mg/dl NEAR OR ABOVE OPTIMAL 130 - 159 mg/dl BORDERLINE HIGH 160 - 189 mg/dl HIGH >190 mg/dl VERY HIGH Performed By: #### U ACSJAZMIN UMICRO #### [facility] [address] [address] [address] Ashwin Key Triglyceride [Mass/Vol] 56 mg/dL Normal <=150 [facility] Comment on above: Performed By: #### U ACSJAZMIN UMICRO #### [facility] [address] [address] [address] Ashwin Key VLDL CALC 11.2 mg/dL Normal [facility] Comment on above: Performed By: #### U ACSJAZMIN UMICRO #### [facility] [address] [address] [address] Ashwin Key PROF 14(COMP METB)on 023 Albumin [Mass/Vol] 2.5 g/dL Critically low 3.4-5.0 [facility] Comment on above: Performed By: #### U ACSJAZMIN UMICRO #### [facility] [address] [place] [address] Dr. Ashwin Key Albumin/Globulin [Mass ratio] 0.7 {ratio} Normal [facility] Comment on above: Performed By: #### U JOEY BUTTRO #### [facility] [address] [address] [address] Ashwin Key ALP [Catalytic activity/Vol] 110 U/L Normal 46-116 [facility] Comment on above: Performed By: #### U GURVINDER BUTTICRO #### [facility] [address] [address] [address] Ashwin Key ALT [Catalytic activity/Vol] 16 U/L Normal 14-59 [facility] Comment on above: Performed By: #### U JOEY BUTTRO #### [facility] [address] [address] [address] Ashwin Key Anion gap [Moles/Vol] 9.8 mmol/L Normal [facility] Comment on above: Performed By: #### JOEY DIEGORO #### [facility] [address] [address] [address] Ashwin Key AST [Catalytic activity/Vol] 13 U/L Critically low 15-37 [facility] Comment on above: Performed By: #### JOEY DIEGORO #### [facility] [address] [place] [address] Dr. Ashwin Key Bilirubin [Mass/Vol] 0.4 mg/dL Normal 0.2-1.0 [facility] Comment on above: Performed By: #### U JOEY BUTTRO #### [facility] [address] [place] [address] Dr. Ashwin Key Calcium [Mass/Vol] 8.5 mg/dL Normal 8.5-10.1 [facility] Comment on above: Performed By: #### U JOEY BUTTRO #### [facility] [address] [place] [address] Dr. Ashwin Key Chloride [Moles/Vol] 108 mmol/L Critically high 98-107 [facility] Comment on above: Performed By: #### U GURVINDER BUTTICRO #### [facility] [address] [address] [address] Ashwin Key CO2 [Moles/Vol] 31.0 mmol/L Normal 21.0-32.0 [facility] Comment on above: Performed By: #### U ACSIND, UMICRO #### [facility] [address] [address] [address] Ashwin Key Creatinine [Mass/Vol] 0.91 mg/dL Normal 0.55-1.02 [facility] Comment on above: Performed By: #### U ACSIND, UMICRO #### [facility] [address] [address] [address] Ashwin Key EGFR-AF ARGENTINE >60 Normal >=60 [facility] Comment on above: Performed By: #### U ACSIND, UMICRO #### [facility] [address] [address] [address] Ashwin Key EGFR-NON AF ARGENTINE 60 mL/min/1.73m2 Normal >=60 [facility] Comment on above: Performed By: #### U ACSIND, UMICRO #### [facility] [address] [address] [address] Ashwin Key Globulin (S) [Mass/Vol] 3.5 g/dL Normal [facility] Comment on above: Performed By: #### U ACSIND, UMICRO #### [facility] [address] [address] [address] Ashwin Key Glucose [Mass/Vol] 99 mg/dL Normal 74-106 [facility] Comment on above: Performed By: #### U ACSIND, UMICRO #### [facility] [address] [address] [address] Ashwin Key Potassium [Moles/Vol] 3.8 mmol/L Normal 3.5-5.1 [facility] Comment on above: Performed By: #### U ACSIND, UMICRO #### [facility] [address] [address] [address] Ashwin Key Protein [Mass/Vol] 6.0 g/dL Critically low 6.4-8.2 [facility] Comment on above: Performed By: #### U FILOMENA UMICRO #### [facility] [address] [place] [address] Dr. Ashwin Key Sodium [Moles/Vol] 145 mmol/L Normal 136-145 [facility] Comment on above: Performed By: #### U FILOMENA UMICRO #### [facility] [address] [place] [address] Dr. Ashwin Key Urea nitrogen [Mass/Vol] 24.0 mg/dL Critically high 7.0-18.0 [facility] Comment on above: Performed By: #### U GURVINDER BUTTICRO #### [facility] [address] [place] [address] Dr. Ashwin Key Urea nitrogen/Creatinine [Mass ratio] 26.4 mg/mg Normal [facility] Comment on above: Performed By: #### GURVINDER DIEGOICRO #### [facility] [address] [place] [address] Dr. Ashwin Key TSHon 08-22-2022 TSH 5.573 uIU/mL Critically high 0.358-3.740 [facility] Comment on above: Performed By: #### U JOEY BUTTRO #### [facility] [address] [place] [address] Dr. Ashwin Key CBC AUTO DIFFon 08-10-2022 BASO # 0.0 103/ul Normal 0.0-0.1 [facility] Comment on above: Performed By: #### C BC #### [facility] [address] [place] [address] Dr. Ashwin Key Basophils/100 WBC (Bld) 0.7 % Normal 0.2-2.0 [facility] Comment on above: Performed By: #### C BC #### [facility] [address] [place] [address] Dr. Ashwin Key EO # 0.0 103/ul Normal 0.0-0.7 [facility] Comment on above: Performed By: #### C BC #### [facility] [address] [place] [address] Dr. Ashwin Key Eosinophils/100 WBC (Bld) 0.0 % Critically low 0.9-7.0 [facility] Comment on above: Performed By: #### C BC #### [facility] [address] [place] [address] Dr. Ashwin Key Erythrocyte distribution width (RBC) [Ratio] 15.1 % Critically high 11.0-15.0 [facility] Comment on above: Performed By: #### C BC #### [facility] [address] [place] [address] Dr. Ashwin Key Hematocrit (Bld) [Volume fraction] 38.0 % Normal 36.0-48.0 [facility] Comment on above: Performed By: #### C BC #### [facility] [address] [place] [address] Dr. Ashwin Key Hemoglobin (Bld) [Mass/Vol] 11.4 g/dL Critically low 12.0-16.0 [facility] Comment on above: Performed By: #### C BC #### [facility] [address] [place] [address] Dr. Ashwin Key IG # 0.02 10e3/ul Normal 0.00-0.03 [facility] Comment on above: Performed By: #### C BC #### [facility] [address] [place] [address] Dr. Ashwin Key IG % 0.5 % Normal 0.0-0.5 [facility] Comment on above: Performed By: #### C BC #### [facility] [address] [place] [address] Dr. Ashwin Key LYMPH # 2.1 103/ul Normal 1.2-3.8 [facility] Comment on above: Performed By: #### C BC #### [facility] [address] [place] [address] Dr. Ashwin Key Lymphocytes/100 WBC (Bld) 48.4 % Normal 20.5-60.0 [facility] Comment on above: Performed By: #### C BC #### [facility] [address] [place] [address] Dr. Ashwin Key MANUAL DIFF REQ NO Normal [facility] Comment on above: Performed By: #### C BC #### [facility] [address] [place] [address] Dr. Ashwin Key MCH (RBC) [Entitic mass] 28.8 pg Normal 26.7-34.0 [facility] Comment on above: Performed By: #### C BC #### [facility] [address] [place] [address] Dr. Ashwin Key MCHC (RBC) [Mass/Vol] 30.0 g/dL Normal 29.9-35.2 [facility] Comment on above: Performed By: #### C BC #### [facility] [address] [place] [address] Dr. Ashwin Key MCV (RBC) [Entitic vol] 96.0 fL Normal 81.0-99.0 [facility] Comment on above: Performed By: #### C BC #### [facility] [address] [place] [address] Dr. Ashwin Key MONO # 0.3 103/ul Normal 0.3-0.8 [facility] Comment on above: Performed By: #### C BC #### [facility] [address] [place] [address] Dr. Ashwin Key Monocytes/100 WBC (Bld) 7.7 % Normal 1.7-12.0 [facility] Comment on above: Performed By: #### C BC #### [facility] [address] [place] [address] Dr. Ashwin Key NEUT # 1.8 103/ul Normal 1.4-6.5 [facility] Comment on above: Performed By: #### C BC #### [facility] [address] [place] [address] Dr. Ashwin Key Neutrophils/100 WBC (Bld) 42.7 % Critically low 43.0-75.0 [facility] Comment on above: Performed By: #### C BC #### [facility] [address] [place] [address] Dr. Ashwin Key Platelet mean volume (Bld) [Entitic vol] 10.1 fL Normal 9.5-13.5 [facility] Comment on above: Performed By: #### C BC #### [facility] [address] [place] [address] Dr. Ashwin Key PLT 156 103/ul Normal 150-450 [facility] Comment on above: Performed By: #### C BC #### [facility] [address] [place] [address] Dr. Ashwin Key RBC 3.96 106/ul Critically low 4.20-5.40 [facility] Comment on above: Performed By: #### C BC #### [facility] [address] [place] [address] Dr. Ashwin Kye WBC 4.3 103/ul Normal 4.0-11.0 [facility] Comment on above: Performed By: #### C BC #### [facility] [address] [place] [address] Dr. Ashwin Key PROF CHEM 8 (BAS METB)on Anion gap [Moles/Vol] 13.3 mmol/L Normal [facility] Comment on above: Performed By: #### JUAN F DIEGO #### [facility] [address] [place] [address] Dr. Aswhin Key Calcium [Mass/Vol] 8.3 mg/dL Critically low 8.5-10.1 [facility] Comment on above: Performed By: #### U JUAN F BUTT #### [facility] [address] [place] [address] Dr. Ashwin Key Chloride [Moles/Vol] 111 mmol/L Critically high 98-107 [facility] Comment on above: Performed By: #### U JUAN F BUTT #### [facility] [address] [place] [address] Dr. Ashwin Key CO2 [Moles/Vol] 29.9 mmol/L Normal 21.0-32.0 [facility] Comment on above: Performed By: #### U JUAN F BUTT #### [facility] [address] [address] [address] Ashwin Key Creatinine [Mass/Vol] 0.92 mg/dL Normal 0.55-1.02 [facility] Comment on above: Performed By: #### U ACSJAZMIN UMICRO #### [facility] [address] [address] [address] Ashwin Key EGFR-AF ARGENTINE >60 Normal >=60 [facility] Comment on above: Performed By: #### U ACSJAZMIN, UMICRO #### [facility] [address] [address] [address] Ashwin Key EGFR-NON AF ARGENTINE 59 mL/min/1.73m2 Critically low >=60 [facility] Comment on above: Performed By: #### U ACSJAZMIN UMICRO #### [facility] [address] [address] [address] Ashwin Key Glucose [Mass/Vol] 84 mg/dL Normal 74-106 [facility] Comment on above: Performed By: #### U ACSJAZMIN UMICRO #### [facility] [address] [address] [address] Ashwin Key Potassium [Moles/Vol] 4.2 mmol/L Normal 3.5-5.1 [facility] Comment on above: Performed By: #### U ACSJAZMIN, UMICRO #### [facility] [address] [address] [address] Ashwin Key Sodium [Moles/Vol] 150 mmol/L Critically high 136-145 [facility] Comment on above: Performed By: #### U ACSJAZMIN, UMICRO #### [facility] [address] [address] [address] Ashwin Key Urea nitrogen [Mass/Vol] 25.0 mg/dL Critically high 7.0-18.0 [facility] Comment on above: Performed By: #### U ACSJAZMIN, UMICRO #### [facility] [address] [address] [address] Ashwin Key Urea nitrogen/Creatinine [Mass ratio] 27.2 mg/mg Normal [facility] Comment on above: Performed By: #### U ACSJAZMIN, UMICRO #### [facility] [address] [address] [address] Ashwin Key TSHon 08-10-2022 TSH 3.430 uIU/mL Normal 0.358-3.740 [facility] Comment on above: Performed By: #### U ACSJAZMIN, UMICRO #### [facility] [address] [place] [address] Dr. Ashwin Key CULTURE URINEon 08-09-2022 CULTURE URINE Culture Observations : ANSON TO FOLLOW. Normal [facility] Comment on above: Performed By: #### U ACSJAZMIN UMICRO #### [facility] [address] [place] [address] Dr. Ashwin Key UA (CLEAN/CATCH) FISH FILLETER/MICRO I F IND.on 08-09-2022 Bilirubin Ql (U) Negative Normal NEGATIVE [facility] Comment on above: Performed By: #### U ACSJAZMIN UMICRO #### [facility] [address] [place] [address] Dr. Ashwin Key Clarity (U) CLEAR Normal CLEAR [facility] Comment on above: Performed By: #### U FILOMENA UMICRO #### [facility] [address] [place] [address] Dr. Ashwin Key Color (U) LT. YELLOW Normal YELLOW [facility] Comment on above: Performed By: #### U ACSJAZMIN UMICRO #### [facility] [address] [place] [address] Dr. Ashwin Key Glucose Ql (U) Negative Normal NEGATIVE [facility] Comment on above: Performed By: #### U ACSJAZMIN, UMICRO #### [facility] [address] [place] [address] Dr. Ashwin Key Hemoglobin Ql (U) TRACE-INTACT Abnormal NEGATIVE [facility] Comment on above: Performed By: #### U ACSJAZMIN, UMICRO #### [facility] [address] [place] [address] Dr. Ashwin Key Ketones Ql (U) Negative Normal NEGATIVE [facility] Comment on above: Performed By: #### U ACSJAZMIN, UMICRO #### [facility] [address] [address] [address] Ashwin Key LEUKOCYTES TRACE Abnormal NEGATIVE [facility] Comment on above: Performed By: #### U ACSJAZMIN, UMICRO #### [facility] [address] [place] [address] Dr. Ashwin Key Nitrite Ql (U) Negative Normal NEGATIVE [facility] Comment on above: Performed By: #### U ACSJAZMIN, UMICRO #### [facility] [address] [address] [address] Ashwin Key pH (U) 5.5 [pH] Normal 5-9 [facility] Comment on above: Performed By: #### U ACSJAZMIN, UMICRO #### [facility] [address] [place] [address] Dr. Ashwin Key SPEC GRAVITY <=1.005 Abnormal 1.005-<=1.[address] [place] [address] Comment on above: Performed By: #### U ACSJAZMIN ICRO #### [facility] [address] [place] [address] Dr. Ashwin Key UA PROTEIN Negative Normal NEGATIVE/ TRACE [facility] Comment on above: Performed By: #### U ACSJAZMIN, UMICRO #### [facility] [address] [place] [address] Dr. Ashwin Key UR MICRO IND INDICATED Normal [facility] Comment on above: Performed By: #### U ACSJAZMIN UMICRO #### [facility] [address] [place] [address] Dr. Ashwin Key Urobilinogen Qn (U) 0.2 {Mercedes'U}/dL Normal 0.2 - 1. 0 [facility] Comment on above: Performed By: #### U ACSJAZMIN, UMICRO #### [facility] [address] [place] [address] Dr. Ashwin Key URINE MICROSCOPIC ONLYon AMORPHOUS CRYSTALS FEW Normal [facility] Comment on above: Performed By: #### U ACSJAZMIN UMICRO #### [facility] [address] [address] [address] Ashwin Key BACTERIA MODERATE Abnormal NONE SEEN [facility] Comment on above: Performed By: #### U ACSIND, UMICRO #### [facility] [address] [address] [address] Ashwin Key Bacteria identified Cx Nom (U) INDICATED Normal [facility] Comment on above: Performed By: #### U ACSJAZMIN, UMICRO #### [facility] [address] [place] [address] Dr. Ashwin Key CAST NONE SEEN Normal NONE SEEN [facility] Comment on above: Performed By: #### U ACSJAZMIN, UMICRO #### [facility] [address] [address] [address] Ashwin Key Crystals LM Nom (Urine sed) SEEN Abnormal NONE SEEN [facility] Comment on above: Performed By: #### U ACSJAZMIN UMICRO #### [facility] [address] [place] [address] Dr. Ashwin Key Epithelial cells LM Ql (Urine sed) MANY Abnormal NONE SEEN /RARE [facility] Comment on above: Performed By: #### U ACSJAZMIN ICRO #### [facility] [address] [place] [address] Dr. Ashwin Key MUCOUS NONE SEEN Normal NONE SEEN [facility] Comment on above: Performed By: #### U ACSJAZMIN UMICRO #### [facility] [address] [place] [address] Dr. Ashwin Key RBC 0-2 Normal 0-2 [facility] Comment on above: Performed By: #### U ACSJAZMIN ICRO #### [facility] [address] [address] [address] Ashwin Key WBC 2-5 Abnormal NONE SEEN [facility] Comment on above: Performed By: #### U ACSJAZMIN, UMICRO #### [facility] [address] [place] [address] Dr. Ashwin Key CBC AUTO DIFFon 07-11-2022 BASO # 0.0 103/ul Normal 0.0-0.1 [facility] Comment on above: Performed By: #### C BC #### [facility] [address] [place] [address] Dr. Ashwin Key Basophils/100 WBC (Bld) 0.5 % Normal 0.2-2.0 [facility] Comment on above: Performed By: #### C BC #### [facility] [address] [place] [address] Dr. Ashwin Key EO # 0.0 103/ul Normal 0.0-0.7 [facility] Comment on above: Performed By: #### C BC #### [facility] [address] [place] [address] Dr. Ashwin Key Eosinophils/100 WBC (Bld) 0.0 % Critically low 0.9-7.0 [facility] Comment on above: Performed By: #### C BC #### [facility] [address] [place] [address] Dr. Ashwin Key Erythrocyte distribution width (RBC) [Ratio] 14.5 % Normal 11.0-15.0 [facility] Comment on above: Performed By: #### C BC #### [facility] [address] [place] [address] Dr. Ashwin Key Hematocrit (Bld) [Volume fraction] 42.5 % Normal 36.0-48.0 [facility] Comment on above: Performed By: #### C BC #### [facility] [address] [place] [address] Dr. Ashwin Key Hemoglobin (Bld) [Mass/Vol] 13.1 g/dL Normal 12.0-16.0 [facility] Comment on above: Performed By: #### C BC #### [facility] [address] [place] [address] Dr. Ashwin Key IG # 0.02 10e3/ul Normal 0.00-0.03 [facility] Comment on above: Performed By: #### C BC #### [facility] [address] [place] [address] Dr. Ashwin Key IG % 0.5 % Normal 0.0-0.5 [facility] Comment on above: Performed By: #### C BC #### [facility] [address] [place] [address] Dr. Ashwin Key LYMPH # 2.1 103/ul Normal 1.2-3.8 [facility] Comment on above: Performed By: #### C BC #### [facility] [address] [place] [address] Dr. Ashwin Key Lymphocytes/100 WBC (Bld) 48.2 % Normal 20.5-60.0 [facility] Comment on above: Performed By: #### C BC #### [facility] [address] [place] [address] Dr. Ashwin Key MANUAL DIFF REQ NO Normal [facility] Comment on above: Performed By: #### C BC #### [facility] [address] [place] [address] Dr. Ashwin Key MCH (RBC) [Entitic mass] 28.4 pg Normal 26.7-34.0 [facility] Comment on above: Performed By: #### C BC #### [facility] [address] [place] [address] Dr. Ashwin Key MCHC (RBC) [Mass/Vol] 30.8 g/dL Normal 29.9-35.2 [facility] Comment on above: Performed By: #### C BC #### [facility] [address] [place] [address] Dr. Ashwin Key MCV (RBC) [Entitic vol] 92.2 fL Normal 81.0-99.0 [facility] Comment on above: Performed By: #### C BC #### [facility] [address] [place] [address] Dr. Ashwin Key MONO # 0.4 103/ul Normal 0.3-0.8 [facility] Comment on above: Performed By: #### C BC #### [facility] [address] [place] [address] Dr. Ashwin Key Monocytes/100 WBC (Bld) 8.7 % Normal 1.7-12.0 [facility] Comment on above: Performed By: #### C BC #### [facility] [address] [place] [address] Dr. Ashwin Key NEUT # 1.8 103/ul Normal 1.4-6.5 [facility] Comment on above: Performed By: #### C BC #### [facility] [address] [place] [address] Dr. Ashwin Key Neutrophils/100 WBC (Bld) 42.1 % Critically low 43.0-75.0 [facility] Comment on above: Performed By: #### C BC #### [facility] [address] [place] [address] Dr. Ashwin Key Platelet mean volume (Bld) [Entitic vol] 10.4 fL Normal 9.5-13.5 [facility] Comment on above: Performed By: #### C BC #### [facility] [address] [place] [address] Dr. Ashwin Key PLT 159 103/ul Normal 150-450 [facility] Comment on above: Performed By: #### C BC #### [facility] [address] [place] [address] Dr. Ashwin Key RBC 4.61 106/ul Normal 4.20-5.40 [facility] Comment on above: Performed By: #### C BC #### [facility] [address] [place] [address] Dr. Ashwin Key WBC 4.3 103/ul Normal 4.0-11.0 [facility] Comment on above: Performed By: #### C BC #### [facility] [address] [place] [address] Dr. Ashwin Key PROF CHEM 8 (BAS METB)on Anion gap [Moles/Vol] 10.2 mmol/L Normal [facility] Comment on above: Performed By: #### B MP #### [facility] [address] [place] [address] Dr. Ashwin Key Calcium [Mass/Vol] 8.5 mg/dL Normal 8.5-10.1 [facility] Comment on above: Performed By: #### B MP #### [facility] [address] [address] [address] Ashwin Key Chloride [Moles/Vol] 104 mmol/L Normal 98-107 [facility] Comment on above: Performed By: #### B MP #### [facility] [address] [address] [address] Ashwin Key CO2 [Moles/Vol] 32.6 mmol/L Critically high 21.0-32.0 [facility] Comment on above: Performed By: #### B MP #### [facility] [address] [address] [address] Ashwin Key Creatinine [Mass/Vol] 0.91 mg/dL Normal 0.55-1.02 [facility] Comment on above: Performed By: #### B MP #### [facility] [address] [place] [address] Dr. Ashwin Key EGFR-AF ARGENTINE >60 Normal >=60 [facility] Comment on above: Performed By: #### B MP #### [facility] [address] [address] [address] Ashwin Key EGFR-NON AF ARGENTINE =60 Normal >=60 [facility] Comment on above: Performed By: #### B MP #### [facility] [address] [place] [address] Dr. Ashwin Key Glucose [Mass/Vol] 89 mg/dL Normal 74-106 [facility] Comment on above: Performed By: #### B MP #### [facility] [address] [place] [address] Dr. Ashwin Key Potassium [Moles/Vol] 3.8 mmol/L Normal 3.5-5.1 [facility] Comment on above: Performed By: #### B MP #### [facility] [address] [place] [address] Dr. Ashwin Key Sodium [Moles/Vol] 143 mmol/L Normal 136-145 [facility] Comment on above: Performed By: #### B MP #### [facility] [address] [place] [address] Dr. Ashwin Key Urea nitrogen [Mass/Vol] 26.0 mg/dL Critically high 7.0-18.0 [facility] Comment on above: Performed By: #### B MP #### [facility] [address] [place] [address] Dr. Ashwin Key Urea nitrogen/Creatinine [Mass ratio] 28.6 mg/mg Normal [facility] Comment on above: Performed By: #### B MP #### [facility] [address] [place] [address] Dr. Ashwin Key CULTURE URINEon 02-11-2022 CULTURE [...] F Trimethoprim/Sulfameth oxazole <=20 S F Normal [facility] Comment on above: Performed By: #### U ACSIND UMICRO #### [facility] [address] [place] [address] Dr. Ashwin Key CBC AUTO DIFFon 02-07-2022 BASO # 0.0 103/ul Normal 0.0-0.1 [facility] Comment on above: Performed By: #### C BC #### [facility] [address] [place] [address] Dr. Ashwin Key Basophils/100 WBC (Bld) 0.5 % Normal 0.2-2.0 [facility] Comment on above: Performed By: #### C BC #### [facility] [address] [place] [address] Dr. Ashwin Key EO # 0.0 103/ul Normal 0.0-0.7 [facility] Comment on above: Performed By: #### C BC #### [facility] [address] [place] [address] Dr. Ashwin Key Eosinophils/100 WBC (Bld) 0.0 % Critically low 0.9-7.0 [facility] Comment on above: Performed By: #### C BC #### [facility] [address] [place] [address] Dr. Ashwin Key Erythrocyte distribution width (RBC) [Ratio] 13.4 % Normal 11.0-15.0 [facility] Comment on above: Performed By: #### C BC #### [facility] [address] [place] [address] Dr. Ashwin Key Hematocrit (Bld) [Volume fraction] 46.8 % Normal 36.0-48.0 [facility] Comment on above: Performed By: #### C BC #### [facility] [address] [place] [address] Dr. Ashwin Key Hemoglobin (Bld) [Mass/Vol] 14.2 g/dL Normal 12.0-16.0 [facility] Comment on above: Performed By: #### C BC #### [facility] [address] [place] [address] Dr. Ashwin Key IG # 0.05 10e3/ul Critically high 0.00-0.03 [facility] Comment on above: Performed By: #### C BC #### [facility] [address] [place] [address] Dr. Ashwin Key IG % 0.6 % Critically high 0.0-0.5 [facility] Comment on above: Performed By: #### C BC #### [facility] [address] [place] [address] Dr. Ashwin Key LYMPH # 2.0 103/ul Normal 1.2-3.8 [facility] Comment on above: Performed By: #### C BC #### [facility] [address] [place] [address] Dr. Ashwin Key Lymphocytes/100 WBC (Bld) 22.9 % Normal 20.5-60.0 [facility] Comment on above: Performed By: #### C BC #### [facility] [address] [place] [address] Dr. Ashwin Key MANUAL DIFF REQ NO Normal [facility] Comment on above: Performed By: #### C BC #### [facility] [address] [place] [address] Dr. Ashwin Key MCH (RBC) [Entitic mass] 29.1 pg Normal 26.7-34.0 [facility] Comment on above: Performed By: #### C BC #### [facility] [address] [place] [address] Dr. Ashwin Key MCHC (RBC) [Mass/Vol] 30.3 g/dL Normal 29.9-35.2 [facility] Comment on above: Performed By: #### C BC #### [facility] [address] [place] [address] Dr. Ashwin Key MCV (RBC) [Entitic vol] 95.9 fL Normal 81.0-99.0 [facility] Comment on above: Performed By: #### C BC #### [facility] [address] [place] [address] Dr. Ashwin Key MONO # 0.9 103/ul Critically high 0.3-0.8 [facility] Comment on above: Performed By: #### C BC #### [facility] [address] [place] [address] Dr. Ashwin Key Monocytes/100 WBC (Bld) 10.9 % Normal 1.7-12.0 [facility] Comment on above: Performed By: #### C BC #### [facility] [address] [place] [address] Dr. Ashwin Key NEUT # 5.6 103/ul Normal 1.4-6.5 [facility] Comment on above: Performed By: #### C BC #### [facility] [address] [place] [address] Dr. Ashwin Key Neutrophils/100 WBC (Bld) 65.1 % Normal 43.0-75.0 [facility] Comment on above: Performed By: #### C BC #### [facility] [address] [place] [address] Dr. Ashwin Key Platelet mean volume (Bld) [Entitic vol] 10.6 fL Normal 9.5-13.5 [facility] Comment on above: Performed By: #### C BC #### [facility] [address] [place] [address] Dr. Ashwin Key PLT 203 103/ul Normal 150-450 [facility] Comment on above: Performed By: #### C BC #### [facility] [address] [place] [address] Dr. Ashwin Key RBC 4.88 106/ul Normal 4.20-5.40 [facility] Comment on above: Performed By: #### C BC #### [facility] [address] [place] [address] Dr. Ashwin Key WBC 8.6 103/ul Normal 4.0-11.0 [facility] Comment on above: Performed By: #### C BC #### [facility] [address] [place] [address] Dr. Ashwin Key PROF 14(COMP METB)on 022 Albumin [Mass/Vol] 3.6 g/dL Normal 3.4-5.0 [facility] Comment on above: Performed By: #### U GURVINDER BUTTICRO #### [facility] [address] [place] [address] Dr. Ashwin Key Albumin/Globulin [Mass ratio] 1.2 {ratio} Normal [facility] Comment on above: Performed By: #### U FILOMENA UMICRO #### [facility] [address] [place] [address] Dr. Ashwin Key ALP [Catalytic activity/Vol] 128 U/L Critically high 46-116 [facility] Comment on above: Performed By: #### U FILOMENA UMICRO #### [facility] [address] [place] [address] Dr. Ashwin Key ALT [Catalytic activity/Vol] 20 U/L Normal 14-59 [facility] Comment on above: Performed By: #### U FILOMENA UMICRO #### [facility] [address] [address] [address] Ashwin Key Anion gap [Moles/Vol] 12.0 mmol/L Normal [facility] Comment on above: Performed By: #### U ACSIND, UMICRO #### [facility] [address] [address] [address] Ashwin Key AST [Catalytic activity/Vol] 18 U/L Normal 15-37 [facility] Comment on above: Performed By: #### U ACSIND, UMICRO #### [facility] [address] [address] [address] Ashwin Key Bilirubin [Mass/Vol] 0.8 mg/dL Normal 0.2-1.0 [facility] Comment on above: Performed By: #### U ACSIND, UMICRO #### [facility] [address] [place] [address] Dr. Ashwin Key Calcium [Mass/Vol] 8.1 mg/dL Critically low 8.5-10.1 [facility] Comment on above: Performed By: #### U ACSIND, UMICRO #### [facility] [address] [address] [address] Ashwin Key Chloride [Moles/Vol] 99 mmol/L Normal 98-107 [facility] Comment on above: Performed By: #### U ACSIND, UMICRO #### [facility] [address] [address] [address] Ashwin Key CO2 [Moles/Vol] 33.7 mmol/L Critically high 21.0-32.0 [facility] Comment on above: Performed By: #### U ACSIND, UMICRO #### [facility] [address] [address] [address] Ashwin Key Creatinine [Mass/Vol] 1.07 mg/dL Critically high 0.55-1.02 [facility] Comment on above: Performed By: #### U ACSIND, UMICRO #### [facility] [address] [address] [address] Ashwin Key EGFR-AF ARGENTINE 60 mL/min/1.73m2 Normal >=60 [facility] Comment on above: Performed By: #### U GURVINDER BUTTICRO #### [facility] [address] [place] [address] Dr. Ashwin Key EGFR-NON AF ARGENTINE 50 mL/min/1.73m2 Critically low >=60 [facility] Comment on above: Performed By: #### U FILOMENA UMICRO #### [facility] [address] [address] [address] Ashwin Key Globulin (S) [Mass/Vol] 3.0 g/dL Normal [facility] Comment on above: Performed By: #### U FILOMENA UMICRO #### [facility] [address] [place] [address] Dr. Ashwin Key Glucose [Mass/Vol] 76 mg/dL Normal 74-106 [facility] Comment on above: Performed By: #### Lisseth BUTT UMICRO #### [facility] [address] [place] [address] Dr. Ashwin Key Potassium [Moles/Vol] 4.7 mmol/L Normal 3.5-5.1 [facility] Comment on above: Performed By: #### U GURVINDER BUTTICRO #### [facility] [address] [place] [address] Dr. Ashwin Key Protein [Mass/Vol] 6.6 g/dL Normal 6.4-8.2 [facility] Comment on above: Performed By: #### U FILOMENA UMICRO #### [facility] [address] [place] [address] Dr. Ashwin Key Sodium [Moles/Vol] 140 mmol/L Normal 136-145 [facility] Comment on above: Performed By: #### U FILOMENA UMICRO #### [facility] [address] [place] [address] Dr. Ashwin Key Urea nitrogen [Mass/Vol] 31.0 mg/dL Critically high 7.0-18.0 [facility] Comment on above: Performed By: #### U FILOMENA UMICRO #### [facility] [address] [address] [address] Ashwin Key Urea nitrogen/Creatinine [Mass ratio] 29.0 mg/mg Normal [facility] Comment on above: Performed By: #### U ACSIND, UMICRO #### [facility] [address] [address] [address] Ashwin Key UA RANDOMon 02-07-2022 Bilirubin Ql (U) Negative Normal NEGATIVE [facility] Comment on above: Performed By: #### U A #### [facility] [address] [place] [address] Dr. Ashwin Key Clarity (U) CLEAR Normal CLEAR [facility] Comment on above: Performed By: #### U A #### [facility] [address] [place] [address] Dr. Ashwin Key Color (U) LT. YELLOW Normal YELLOW [facility] Comment on above: Performed By: #### U A #### [facility] [address] [place] [address] Dr. Ashwin Key Glucose Ql (U) Negative Normal NEGATIVE [facility] Comment on above: Performed By: #### U A #### [facility] [address] [place] [address] Dr. Ashwin Key Hemoglobin Ql (U) Negative Normal NEGATIVE [facility] Comment on above: Performed By: #### U A #### [facility] [address] [place] [address] Dr. Ashwin Key Ketones Ql (U) TRACE Abnormal NEGATIVE [facility] Comment on above: Performed By: #### U A #### [facility] [address] [place] [address] Dr. Ashwin Key LEUKOCYTES SMALL Abnormal NEGATIVE [facility] Comment on above: Performed By: #### U A #### [facility] [address] [place] [address] Dr. Ashwin Key Nitrite Ql (U) Positive Abnormal NEGATIVE [facility] Comment on above: Performed By: #### U A #### [facility] [address] [place] [address] Dr. Ashwin Key pH (U) 6.0 [pH] Normal 5-9 [facility] Comment on above: Performed By: #### U A #### [facility] [address] [place] [address] Dr. Ashwin Key SPEC GRAVITY 1.020 Normal 1.005-<=1.02 5 [facility] Comment on above: Performed By: #### U A #### [facility] [address] [place] [address] Dr. Ashwin Key UA PROTEIN Negative Normal NEGATIVE/ TRACE [facility] Comment on above: Performed By: #### U A #### [facility] [address] [place] [address] Dr. Ashwin Key Urobilinogen Qn (U) 1.0 {Mercedes'U}/dL Normal 0.2 - 1. 0 [facility] Comment on above: Performed By: #### U A #### [facility] [address] [place] [address] Dr. Ashwin Key K (Potassium)on 01-30-2017 Potassium molar conc 4.2 mmol/L Normal 3.7-5.3 [facility] Comment on above: Result Comment: Perf ormed at [address] [place] [address] [phone] Performed By: #### K ####[address] [place] [address] Encounters Encounter Date Encounter Type Care Provider Facility Start: 12-06-2023 Evaluation and management of inpatient HARSHA KIRBY [facility] Start: 12-05-2023 Evaluation and management of inpatient DON PIRKL [facility] Start: 12-04-2023 Emergency department patient visit DOE BARAJAS [facility] Start: 12-04-2023 End: 12-06-2023 Evaluation and management of inpatient [facility] Start: 11-20-2023 Evaluation and management of inpatient [facility] Start: [facility]23 [facility]: [facility]23 Evaluation and management of inpatient SIDNEY SALAZAR [facility] Start: 11-15-2023 Evaluation and management of inpatient SIDNEY SALAZAR [facility] Start: 11-14-2023 Evaluation and management of inpatient [facility]AR[facility] Start: 11-14-2023 Evaluation and management of inpatient YUE BRODY [facility] Start: 11-13-2023 Evaluation and management of inpatient OLIMPIA LANDRY [facility] Start: 11-13-2023 End: 11-22-2023 Evaluation and management of inpatient KASSANDRA PEREZ [facility] Start: 08-22-2022 End: 08-22-[address] [...] Procedure Procedure Detail Performing Clinician Start: 01-30-2017 BARRY BEE Payers Date Payer Category Payer Medicare [id number] 2016 Medicare [id number] 1960 Medicaid [id number] 1960 Medicare [id number] 1945 Unknown [id number] 2.16.84 [id number] 1945 Unknown [id number] 2.16.84 [id number] 1945 Unknown [id number] 2.16.84 [id number] 1944 Unknown [id number] 2.16.84 [id number] 1945 Unknown [id number] 2.16.84 [id number] Clinical Notes 11-14-2023 to 12-06-2023 Note Date & Type Note Facility 12-06-2023 Note [facility] 12-06-2023 Note [facility] 12-06-2023 Note [facility] 12-06-2023 Note [facility] 12-06-2023 Note [facility] 12-05-2023 Note [facility] 12-05-2023 Note [facility] 12-05-2023 Note [facility] 12-04-2023 Note [facility] 11-22-2023 Note [facility] 11-21-2023 Note [facility] 11-21-2023 Note Sent updates to [facility] and advised of possible discharge today. [facility] 11-21-2023 Note [facility] 11-20-2023 Note [facility] 11-20-2023 Note [facility] 11-20-2023 Note [facility] 11-20-2023 Note [facility] 11-20-2023 Note [facility] 11-19-2023 Note [facility] 11-19-2023 Note [facility] 11-19-2023 Note [facility] 11-18-2023 Note [facility] 11-18-2023 Note [facility] 11-17-2023 Note [facility] 11-17-2023 Note [facility] 11-17-2023 Note Sent updates to [facility]. Unclear at this point if pt will need pre-cert to return. UPDATE 10:40AM- Advised by [facility] pt is a bed hold and no pre-cert is necessary. [facility] 11-17-2023 Note [facility] 11-17-2023 Note [facility] 11-16-2023 Note [facility] 11-15-2023 Note [facility] 11-15-2023 Note [facility] 11-15-2023 Note [facility] 11-15-2023 Note [facility] 11-15-2023 Note [facility] 11-14-2023 Note [facility] 11-14-2023 Note [facility] 11-14-2023 Note [facility] 11-14-2023 Note [facility] 11-14-2023 Note [facility] 11-14-2023 Note [facility] 11-14-2023 Note [facility] Summary Purpose Family History No Family History Records FoundNo Family History Records FoundNo Family History Records Found Advance Directives No Advanced Directives Records FoundNo Advanced Directives Records FoundNo Advanced Directives Records Found Additional Source Comments INFORMATION SOURCE (unrecogn ized section and content) DATE CREATED AUTHOR 11/08/2017 [facility] DATE CREATED AUTHOR AUTHOR'S ORGANIZ ATION 09/09/2022 [facility] DATE CREATED AUTHOR AUTHOR'S ORGANIZ ATION 12/10/2023 [facility] FOR RECORDS PERTAINING TO PATIENTS WHO [...] BE BASED ON THE PRIMARY CLINICAL RECORDS. [facility] [employer] [facility] provides no warranty or guarantee of the accuracy or completeness of information in this document.
[2023-12-13 08:18] LABS: Hematocrit 31.2 % (36.0-48.0); Mean Corpuscular HGB Conc 28.8 g/dL (29.9-35.2); Mean Corpuscular Hemoglobin 29.9 pg (26.7-34.0); Mean Corpuscular Volume 103.7 fL (81.0-99.0); Mean Platelet Volume 10.2 fL (9.5-13.5); Platelet Count 232 10^3/uL (150-450); Red Blood Count 3.01 10^6/uL (4.20-5.40); White Blood Count 4.2 10^3/uL (4.0-11.0)
[2023-12-13 08:25] LABS: C Reactive Protein 1.34 mg/dL (<=0.50); Calcium 7.6 mg/dL (8.5-10.1); Chloride 105 mmol/L (98-107); Estimated GFR (African America >60 (>=60); Estimated GFR (Non-African Ame 53 (>=60); Glucose 77 mg/dL (74-106); Potassium 3.9 mmol/L (3.5-5.1); Sodium 142 mmol/L (136-145)
[2023-12-13 08:33] LABS: Anion Gap 4.4; Carbon Dioxide 36.5 mmol/L (21.0-32.0)
[2023-12-13 11:50] LABS: Basophils Abs Manual 0.08 10^3/uL (0.00-0.10); Lymphocytes Absolute Manual 1.13 10^3/uL (1.20-3.80); Monocytes Absolute Manual 0.16 10^3/uL (0.30-0.80); Segmented Neut Absolute Manual 2.81 10^3/uL (1.4-6.5)
[2023-12-13 11:54] LABS: Anisocytosis 2+; Hypochromasia 2+
== END 2023-12-13 04:09 | disposition home or self-care (01) ==
LOC: LAB 04:08
PROVIDERS: PCP Family Medicine; Visit Provider Family Medicine
DX: A41.9 Sepsis, unspecified organism (principal)
CPT/HCPCS: 36415; 80048; 85007; 85027; 86140

== ENCOUNTER 2023-12-18 02:52 | Emergency (ER) | payer MEDICARE, MEDICAID, SELFPAY ==
[2023-12-18] VITALS (23 sets, daily range): BP systolic 78–168; BP diastolic 0–131; PULSE 82–116; TEMP 36.4; O2SAT 92–100
--- OUTSIDE RECORDS SUMMARY | 2023-12-18 02:58 | XMS_ITS | CCD ---
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 Name Role Phone NEPTALI VILLALTA Unavailable Unavailabl [...] Care Unavailable BETH, DR ROCK Attending Unavailable RHODA MOOREREY Referring Unavailable KIRBY, HARSHA Attending Unavailable HORANI, YUE Admitting Unavailable VELY, AELA Admitting Unavailable VELY, AELA Attending Unavailable KASSANDRA PEREZ Referring Unavailable SMITH, CHRISTOPHER Referring Unavailable VELY, AELA Referring Unavailable OLIMPIA LANDRY Referring Unavailable VELY, AELA Referring Unavailable VELY, AELA Referring Unavailable SMITH, CHRISTOPHER Referring Unavailable HORANI, YUE Referring Unavailable CLARISSA SHAFFER Referring Unavailable KIRBY, HARSHA Referring Unavailable DON YUSUF Referring Unavailable KARL, DOE Referring Unavailable KARL, DOE Referring Unavailable SMITH, CHRISTOPHER Referring Unavailable Problems [...] Name Value Interpretation Reference Range Facility 36on 12-11-2023 36 Opat received. Confirmed orders with parviz at [facility]. Confirmed appt 12/17 and labs to be drawn 12/12. Normal [facility] 30on 12-06-2023 30 Normal [facility] CBC WITH AUTO DIFFERENTIALon 12-06-2023 Erythrocyte distribution width (RBC) [Ratio] 22.8 % High 11.5-15.0 [facility] Comment on above: Performed By: #### L [id number] ####[facility] (BEAKER)[address] [place] [address] ERYTHROCYTE MEAN CORPUSCULAR HEMOGLOBIN CONCENTRATION (G/DL) BY AUTOMATED 29.8 g/dL Low 32.0-35.0 [facility] Comment on above: Performed By: #### L [id number] ####[facility] (BEAKER)[address] [place] [address] Hematocrit (Bld) [Volume fraction] 30.2 % Low 36.0-48.0 [facility] Comment on above: Performed By: #### L [id number] ####[facility] ([facility])[address] [place] [address] Hemoglobin (Bld) [Mass/Vol] 9.0 g/dL Low 12.0-15.0 [facility] Comment on above: Performed By: #### L [id number] ####[facility] ([facility])[address] [place] [address] MCH (RBC) [Entitic mass] 30.1 pg Normal 27.0-33.0 [facility] Comment on above: Performed By: #### L [id number] ####[facility] ([facility])[address] [place] [address] MCV (RBC) [Entitic vol] 101.0 fL High 82.0-98.0 [facility] Comment on above: Performed By: #### L [id number] ####[facility] ([facility])[address] [place] [address] NRBC (PER 100 WBCS) BY AUTOMATED COUNT 0.0 % Normal 0 [facility] Comment on above: Performed By: #### L [id number] ####[facility] ([facility])[address] [place] [address] PLATELETS (10*3/UL) IN BLOOD AUTOMATED COUNT 285 10*3/uL Normal 150-400 [facility] Comment on above: Performed By: #### L [id number] ####[facility] ([facility])[address] [place] [address] RBC (Bld) [#/Vol] 2.99 10*6/uL Low 3.80-5.00 [facility] Comment on above: Performed By: #### L [id number] ####[facility] ([facility])[address] [place] [address] WBC (Bld) [#/Vol] 6.16 10*3/uL Normal 4.00-10.60 [facility] Comment on above: Performed By: #### L [id number] ####[facility] [place] [address] COMPREHENSIVE METABOLIC PANE Frank 12-06-2023 Albumin [Mass/Vol] 1.9 g/dL Low 3.5-5.7 [facility] Comment on above: Performed By: #### L [id number] ####[facility] (BEAKER)[address] [place] [address] ALP [Catalytic activity/Vol] 85 U/L Normal 34-104 [facility] Comment on above: Performed By: #### L [id number] ####[facility] ([facility]AKER)[address] [place] [address] ALT [Catalytic activity/Vol] 7 U/L Normal 7-52 [facility] Comment on above: Performed By: #### L [id number] ####[facility] (BEAKER)[address] [place] [address] Anion gap [Moles/Vol] 9 mmol/L Normal 7-20 [facility] Comment on above: Performed By: #### L [id number] ####[facility] (BEAKER)[address] [place] [address] AST [Catalytic activity/Vol] 16 U/L Normal 13-39 [facility] Comment on above: Performed By: #### L [id number] ####[facility] (BEAKER)[address] [place] [address] Bilirubin [Mass/Vol] 0.7 mg/dL Normal 0.3-1.0 [facility] Comment on above: Performed By: #### L [id number] ####[facility] (BEAKER)[address] [place] [address] Calcium [Mass/Vol] 6.9 mg/dL Low 8.6-10.3 [facility] Comment on above: Performed By: #### L [id number] ####[facility] ([facility])[address] [place] [address] Chloride [Moles/Vol] 104 mmol/L Normal 98-107 [facility] Comment on above: Performed By: #### L [id number] ####[facility] ([facility])[address] [place] [address] CO2 [Moles/Vol] 28 mmol/L Normal 21-31 [facility] Comment on above: Performed By: #### L [id number] ####[facility] ([facility])[address] [place] [address] Creatinine [Mass/Vol] 0.66 mg/dL Normal 0.60-1.20 [facility] Comment on above: Performed By: #### L [id number] ####[facility] ([facility])[address] [place] [address] GLOMERULAR FILTRATION RATE ML/MIN/1.73 SQ M.PREDICTED 89.2 mL/min/1.73m*2 Normal >60.0 [facility] Comment on above: Result Comment: [facility]???s estimated glomerular filtration rate (eGFR) will no [...] of individuals. Performed By: #### L [id number] ####[facility] ([facility])[address] [place] [address] Glucose [Mass/Vol] 118 mg/dL High 70-100 [facility] Comment on above: Performed By: #### L [id number] ####[facility] ([facility])[address] [place] [address] Potassium [Moles/Vol] 4.4 mmol/L Normal 3.5-5.1 [facility] Comment on above: Performed By: #### L [id number] ####[facility] ([facility])[address] [place] [address] Protein [Mass/Vol] 4.7 g/dL Low 6.0-8.3 [facility] Comment on above: Performed By: #### L [id number] ####[facility] ([facility])[address] [place] [address] Sodium [Moles/Vol] 137 mmol/L Normal 136-145 [facility] Comment on above: Performed By: #### L [id number] ####[facility] ([facility])[address] [place] [address] Urea nitrogen [Mass/Vol] 18 mg/dL Normal 7-25 [facility] Comment on above: Performed By: #### L [id number] ####[facility] ([facility])[address] [place] [address] UREA NITROGEN/CREATININE (MASS RATIO) IN SER/PLAS 27.3 Normal [facility] Comment on above: Performed By: #### L [id number] ####[facility] ([facility])[place] [address] CONSULTon 12-06-2023 CONSULT Normal [facility] DSon 12-06-2023 DS Normal [facility] HEMOGLOBINon 12-06-2023 Hemoglobin (Bld) [Mass/Vol] 7.8 g/dL Low 12.0-15.0 [facility] Comment on above: Performed By: #### L [id number] ####[facility] ([facility])[address] [place] [address] MANUAL DIFFERENTIALon 2023 ANISOCYTOSIS PRESENCE IN BLOOD BY LIGHT MICROSCOPY Moderate Normal [facility] Comment on above: Performed By: #### L [id number] ####[facility] ([facility])[address] [place] [address] BASOPHILS (10*3/UL) IN BLOOD BY CALCULATION 0.02 10*3/uL Normal 0.00-0.20 [facility] Comment on above: Performed By: #### L [id number] ####[facility] ([facility])[address] [place] [address] BASOPHILS/100 LEUKOCYTES IN BLOOD BY AUTOMATED COUNT 0.3 % Normal 0.0-1.0 [facility] Comment on above: Performed By: #### L [id number] ####[facility] [place] [address] EOSINOPHILS (10*3/UL) IN BLOOD BY CALCULATION 0.00 10*3/uL Normal 0.00-0.50 [facility] Comment on above: Performed By: #### L [id number] ####[facility] ([facility])[address] [place], [place] [address] EOSINOPHILS/100 LEUKOCYTES IN BLOOD BY AUTOMATED COUNT 0.0 % Normal 0.0-6.0 [facility] Comment on above: Performed By: #### L [id number] ####[facility] ([facility])[address] [place] [address] IMMATURE GRANULOCYTES (10*3/UL) IN BLOOD BY CALCULATION 0.19 10*3/uL Normal 0.00-0.20 [facility] Comment on above: Performed By: #### L [id number] ####[facility] ([facility])[address] [place] [address] IMMATURE GRANULOCYTES/100 LEUKOCYTES IN BLOOD BY AUTOMATED COUNT 3.1 % High 0.0-1.0 [facility] Comment on above: Performed By: #### L [id number] ####[facility] ([facility])[address] [place], [place] [address] LYMPHOCYTES (10*3/UL) IN BLOOD BY CALCULATION 1.03 10*3/uL Low 1.20-4.00 [facility] Comment on above: Performed By: #### L [id number] ####[facility] ([facility])[address] [place], [place] [address] LYMPHOCYTES/100 LEUKOCYTES IN BLOOD BY AUTOMATED COUNT 16.7 % Low 20.0-45.0 [facility] Comment on above: Performed By: #### L [id number] ####[facility] ([facility])[address] [place] [address] MONOCYTES (10*3/UL) IN BLOOD BY CALCUATION 0.47 10*3/uL Normal 0.10-1.00 [facility] Comment on above: Performed By: #### L [id number] ####[facility] ([facility])[address] [place] [address] MONOCYTES/100 LEUKOCYTES IN BLOOD BY AUTOMATED COUNT 7.6 % Normal 5.0-12.0 [facility] Comment on above: Performed By: #### L [id number] ####[facility] ([facility])[address] [place] [address] NEUTROPHILS (10*3/UL) IN BLOOD BY CALCULATION 4.5 10*3/uL Normal 1.6-7.6 [facility] Comment on above: Performed By: #### L [id number] ####[facility] ([facility])[address] [place] [address] NEUTROPHILS/100 LEUKOCYTES IN BLOOD BY AUTOMATED COUNT 72.3 % High 40.0-72.0 [facility] Comment on above: Performed By: #### L [id number] ####[facility] ([facility])[address] [place] [address] POIKILOCYTOSIS (PRESENCE) IN BLOOD BY LIGHT MICROSCOPY Slight Normal [facility] Comment on above: Performed By: #### L [id number] ####[facility] ([facility])[address] [facility] [place] [address] POLYCHROMASIA IN BLOOD BY LIGHT MICROSCOPY Slight Normal [facility] Comment on above: Performed By: #### L [id number] ####[facility] ([facility])[address] [place] [address] NURSNOTEon 12-06-2023 NURSNOTE Report given to Nikki gallardo of [place] at [phone]. Report accepted and questions answered. Normal [facility] NURSNOTE Called to place a midline. Pt is getting Meropenum for 13 days. According to our chart that is a PICC line. Dr. Rodriguez ordered a midline and is comfortable with this choice. [facility] 30on 12-05-2023 30 [facility] ANESon 12-05-2023 ANES [facility] BASIC METABOLIC PANELon 11-13 Anion gap [Moles/Vol] 7 mmol/L Normal 7-20 [facility] Comment on above: Performed By: #### L [id number] ####[facility] [place] [address] Calcium [Mass/Vol] 6.7 mg/dL Low 8.6-10.3 [facility] Comment on above: Performed By: #### L [id number] ####[facility] ([facility])[address] [place] [address] Chloride [Moles/Vol] 103 mmol/L Normal 98-107 [facility] Comment on above: Performed By: #### L [id number] ####[facility] ([facility])[address] [place] [address] CO2 [Moles/Vol] 32 mmol/L High 21-31 [facility] Comment on above: Performed By: #### L [id number] ####[facility] ([facility])[address] [place] [address] Creatinine [Mass/Vol] 0.73 mg/dL Normal 0.60-1.20 [facility] Comment on above: Performed By: #### L [id number] ####[facility] ([facility])[address] [place] [address] GLOMERULAR FILTRATION RATE ML/MIN/1.73 SQ M.PREDICTED 83.6 mL/min/1.73m*2 Normal >60.0 [facility] Comment on above: Result Comment: [facility]???s estimated glomerular filtration rate (eGFR) will no [...] of individuals. Performed By: #### L [id number] ####[facility] ([facility])[address] [place] [address] Glucose [Mass/Vol] 173 mg/dL High 70-100 [facility] Comment on above: Performed By: #### L [id number] ####[facility] ([facility])[address] [place] [address] Potassium [Moles/Vol] 4.2 mmol/L Normal 3.5-5.1 [facility] Comment on above: Performed By: #### L [id number] ####[facility] ([facility])[address] [place] [address] Sodium [Moles/Vol] 138 mmol/L Normal 136-145 [facility] Comment on above: Performed By: #### L [id number] ####[facility] ([facility])[address] [place] [address] Urea nitrogen [Mass/Vol] 19 mg/dL Normal 7-25 [facility] Comment on above: Performed By: #### L [id number] ####[facility] ([facility])[address] [place] [address] UREA NITROGEN/CREATININE (MASS RATIO) IN SER/PLAS 26.0 [facility] Comment on above: Performed By: #### L [id number] ####[facility] ([facility])[address] [place] [address] BLOOD CULTUREon 12-05-2023 Bacteria identified Cx Nom (Bld) No growth at 5 days Normal [facility] Comment on above: Order Comment: From a different site than #1. Performed By: #### L [id number] ####[facility] [place] [address] CONSULTon 12-05-2023 CONSULT Normal [facility] CONSULT Normal [facility] HEMOGLOBIN AND HEMATOCRIT, B LOODon 12-05-2023 Hematocrit (Bld) [Volume fraction] 26.2 % Low 36.0-48.0 [facility] Comment on above: Performed By: #### L [id number] ####[facility] [place] [address] Hemoglobin (Bld) [Mass/Vol] 7.3 g/dL Low 12.0-15.0 [facility] Comment on above: Performed By: #### L [id number] ####[facility] (BEAKER)[address] [place] [address] MAGNESIUMon 12-05-2023 Magnesium [Mass/Vol] 1.6 mg/dL Low 1.9-2.7 [facility] Comment on above: Performed By: #### L [id number] ####[facility] (BEAKER)[address] [place] [address] MRSA/MSSA DNA NASALon 2023 MRSA DNA Negative Normal Negative [facility] Comment on above: Order Comment: Lamin Smith [...] preclude nasal colonization. Performed By: #### L [id number] ####[facility] ([facility])[address] [place] [address] MSSA DNA Negative Normal Negative [facility] Comment on above: Order Comment: Lamin Smith [...] preclude nasal colonization. Performed By: #### L [id number] ####[facility] (BEAKER)[address] [place] [address] NURSNOTEon 12-05-2023 NURSNOTE Normal [facility] OPNOTEon 12-05-2023 OPNOTE Normal [facility] POCT GLUCOSE METER UNSOLICIT ED RESULTSon 12-05-2023 Glucose [Mass/Vol] 76 mg/dL Normal 70-105 [facility] Comment on above: Order Comment: Waive d Testing in the ED is performed under the ED CLIA certificate #[id number]. Result Comment: msc daja Performed By: #### L [id number] ####[facility] ([facility])[address] [place] [address] TROPONIN Ion 12-05-2023 Troponin I.cardiac [Mass/Vol] 0.01 ng/mL Normal 0.00-0.04 [facility] Comment on above: Performed By: #### L [id number] ####[facility] ([facility])[address] [place] [address] ANESon 12-04-2023 ANES Normal [facility] APTTon 12-04-2023 ACTIVATED PARTIAL THROMBOPLASTIN TIME IN PPP BY COAGULATION ASSAY 33.8 Seconds Normal 25.0-35.0 [facility] Comment on above: Result Comment: Clin ical significance of the APTT is questionable in the presence of heparin. Performed By: #### L [id number] ####[facility] [address] BASIC METABOLIC PANELon 11-13 Anion gap [Moles/Vol] 9 mmol/L Normal 7-20 [facility] Comment on above: Performed By: #### L [id number] ####[facility] ([facility])[address] [place] [address] Calcium [Mass/Vol] 6.9 mg/dL Low 8.6-10.3 [facility] Comment on above: Performed By: #### L [id number] ####[facility] ([facility])[address] [place] [address] Chloride [Moles/Vol] 102 mmol/L Normal 98-107 [facility] Comment on above: Performed By: #### L [id number] ####[facility] (BEAKER)[address] [place] [address] CO2 [Moles/Vol] 32 mmol/L High 21-31 [facility] Comment on above: Performed By: #### L [id number] ####[facility] ([facility]ER)[address] [place] [address] Creatinine [Mass/Vol] 0.66 mg/dL Normal 0.60-1.20 [facility] Comment on above: Performed By: #### L [id number] ####[facility] (BEAKER)[address] [place] [address] GLOMERULAR FILTRATION RATE ML/MIN/1.73 SQ M.PREDICTED 89.2 mL/min/1.73m*2 Normal >60.0 [facility] Comment on above: Result Comment: [facility]???s estimated glomerular filtration rate (eGFR) will no [...] of individuals. Performed By: #### L [id number] ####[facility] (BE[facility]ER)[address] [place] [address] Glucose [Mass/Vol] 95 mg/dL Normal 70-100 [facility] Comment on above: Performed By: #### L [id number] ####[facility] ([facility]ER)[address] [place] [address] Potassium [Moles/Vol] 4.1 mmol/L Normal 3.5-5.1 [facility] Comment on above: Performed By: #### L [id number] ####[facility] (BE[facility]ER)[address] [place] [address] Sodium [Moles/Vol] 139 mmol/L Normal 136-145 [facility] Comment on above: Performed By: #### L [id number] ####[facility] [place] [address] Urea nitrogen [Mass/Vol] 21 mg/dL Normal 7-25 [facility] Comment on above: Performed By: #### L [id number] ####[facility] [place] [address] UREA NITROGEN/CREATININE (MASS RATIO) IN SER/PLAS 31.8 Normal [facility] Comment on above: Performed By: #### L [id number] ####[facility] ([facility])[address] [place] [address] C-REACTIVE PROTEINon 024 C REACTIVE PROTEIN (MG/L) IN SER/PLAS 55.8 mg/L High 0.0-7.0 [facility] Comment on above: Performed By: #### L [id number] ####[facility] ([facility])[address] [place] [address] CBC WITH AUTO DIFFERENTIALon 12-04-2023 Erythrocyte distribution width (RBC) [Ratio] 23.4 % High 11.5-15.0 [facility] Comment on above: Performed By: #### L [id number] ####[facility] ([facility])[address] [place] [address] ERYTHROCYTE MEAN CORPUSCULAR HEMOGLOBIN CONCENTRATION (G/DL) BY AUTOMATED 28.7 g/dL Low 32.0-35.0 [facility] Comment on above: Performed By: #### L [id number] ####[facility] [place] [address] Hematocrit (Bld) [Volume fraction] 31.0 % Low 36.0-48.0 [facility] Comment on above: Performed By: #### L [id number] ####[facility] [place] [address] Hemoglobin (Bld) [Mass/Vol] 8.9 g/dL Low 12.0-15.0 [facility] Comment on above: Performed By: #### L [id number] ####[facility] ([facility])[address] [place] [address] MCH (RBC) [Entitic mass] 29.3 pg Normal 27.0-33.0 [facility] Comment on above: Performed By: #### L [id number] ####[facility] ([facility])[address] [place] [address] MCV (RBC) [Entitic vol] 102.0 fL High 82.0-98.0 [facility] Comment on above: Performed By: #### L [id number] ####[facility] ([facility])[address] [place] [address] NRBC (PER 100 WBCS) BY AUTOMATED COUNT 0.0 % Normal 0 [facility] Comment on above: Performed By: #### L [id number] ####[facility] ([facility])[address] [place] [address] PLATELETS (10*3/UL) IN BLOOD AUTOMATED COUNT 328 10*3/uL Normal 150-400 [facility] Comment on above: Performed By: #### L [id number] ####[facility] ([facility])[address] [place] [address] RBC (Bld) [#/Vol] 3.04 10*6/uL Low 3.80-5.00 [facility] Comment on above: Performed By: #### L [id number] ####[facility] ([facility])[address] [place] [address] WBC (Bld) [#/Vol] 5.47 10*3/uL Normal 4.00-10.60 [facility] Comment on above: Performed By: #### L [id number] ####[facility] ([facility])[address] [place] [address] CONSULTon 12-04-2023 CONSULT Normal [facility] EDNURSon 12-04-2023 EDNURS Normal [facility] EDPROVon 12-04-2023 EDPROV Normal [facility] HPon 12-04-2023 HP Normal [facility] MANUAL DIFFERENTIALon 2023 ANISOCYTOSIS PRESENCE IN BLOOD BY LIGHT MICROSCOPY Moderate Normal [facility] Comment on above: Performed By: #### L [id number] ####[facility] ([facility])[address] [place] [address] BASOPHILS (10*3/UL) IN BLOOD BY CALCULATION 0.02 10*3/uL Normal 0.00-0.20 [facility] Comment on above: Performed By: #### L [id number] ####[facility] ([facility])[address] [place] [address] BASOPHILS/100 LEUKOCYTES IN BLOOD BY AUTOMATED COUNT 0.4 % Normal 0.0-1.0 [facility] Comment on above: Performed By: #### L [id number] ####[facility] ([facility])[address] [place] [address] EOSINOPHILS (10*3/UL) IN BLOOD BY CALCULATION 0.00 10*3/uL Normal 0.00-0.50 [facility] Comment on above: Performed By: #### L [id number] ####[facility] ([facility])[address] [place] [address] EOSINOPHILS/100 LEUKOCYTES IN BLOOD BY AUTOMATED COUNT 0.0 % Normal 0.0-6.0 [facility] Comment on above: Performed By: #### L [id number] ####[facility] ([facility])[address] [place] [address] HYPOCHROMIA (PRESENCE) IN BLOOD BY LIGHT MICROSCOPY Moderate Normal [facility] Comment on above: Performed By: #### L [id number] ####[facility] ([facility])[address] [place] [address] IMMATURE GRANULOCYTES (10*3/UL) IN BLOOD BY CALCULATION 0.08 10*3/uL Normal 0.00-0.20 [facility] Comment on above: Performed By: #### L [id number] ####[facility] [facility] [place] [address] IMMATURE GRANULOCYTES/100 LEUKOCYTES IN BLOOD BY AUTOMATED COUNT 1.5 % High 0.0-1.0 [facility] Comment on above: Performed By: #### L [id number] ####[facility] ([facility])[address] [place] [address] LYMPHOCYTES (10*3/UL) IN BLOOD BY CALCULATION 0.83 10*3/uL Low 1.20-4.00 [facility] Comment on above: Performed By: #### L [id number] ####[facility] ([facility])[address] [place] [address] LYMPHOCYTES/100 LEUKOCYTES IN BLOOD BY AUTOMATED COUNT 15.2 % Low 20.0-45.0 [facility] Comment on above: Performed By: #### L [id number] ####[facility] ([facility])[address] [place] [address] MONOCYTES (10*3/UL) IN BLOOD BY CALCUATION 0.45 10*3/uL Normal 0.10-1.00 [facility] Comment on above: Performed By: #### L [id number] ####[facility] ([facility])[address] [place] [address] MONOCYTES/100 LEUKOCYTES IN BLOOD BY AUTOMATED COUNT 8.2 % Normal 5.0-12.0 [facility] Comment on above: Performed By: #### L [id number] ####[facility] ([facility])[address] [place] [address] NEUTROPHILS (10*3/UL) IN BLOOD BY CALCULATION 4.1 10*3/uL Normal 1.6-7.6 [facility] Comment on above: Performed By: #### L [id number] ####[facility] ([facility])[address] [place] [address] NEUTROPHILS/100 LEUKOCYTES IN BLOOD BY AUTOMATED COUNT 74.7 % High 40.0-72.0 [facility] Comment on above: Performed By: #### L [id number] ####[facility] ([facility])[address] [place] [address] POIKILOCYTOSIS (PRESENCE) IN BLOOD BY LIGHT MICROSCOPY Slight Normal [facility] Comment on above: Performed By: #### L [id number] ####[facility] ([facility])[address] [place] [address] POLYCHROMASIA IN BLOOD BY LIGHT MICROSCOPY Slight Normal [facility] Comment on above: Performed By: #### L [id number] ####[facility] ([facility])[address] [place] [address] PROTIME-INRon 12-04-2023 INR IN PPP BY COAGULATION ASSAY 1.58 High 0.90-1.10 [facility] Comment on above: Result Comment: ACCC P [...] CHEST 1995;108:[id number]. Performed By: #### L [id number] ####[facility] ([facility])[address] [place] [address] PROTHROMBIN TIME (PT) IN PPP BY COAGULATION ASSAY 18.6 Seconds High 12.3-14.8 [facility] Comment on above: Performed By: #### L [id number] ####[facility] ([facility])[address] [place] [address] SEDIMENTATION RATEon 024 SEDIMENTATION RATE, ERYTHROCYTE 85 mm/hr High <=20 [facility] Comment on above: Performed By: #### L [id number] ####[facility] ([facility])[address] [place] [address] TYPE AND SCREENon 12-04-2023 AB SCREEN Negative Normal [facility] Comment on above: Order Comment: Add o n Performed By: #### L [id number] ####[facility], ABO group Nom (Bld) O Normal [facility] Comment on above: Order Comment: Add o n Performed By: #### L [id number] ####[facility], RH TYPE IN BLOOD Positive Normal [facility] Comment on above: Order Comment: Add o n Performed By: #### L [id number] ####[facility], 36on 12-01-2023 36 [facility] 36 ANYA MEDICATION MANAGER- [phone] PLEASE GIVE ANYA A CALL BACK REGARDING POST OP PROTOCAL , UNBALE TO MAKE POST OP APPOINTMENTS HERE AT [facility] 36on 11-23-2023 36 [facility] Telephoneon 11-23-2023 Telephone [facility] 30on 11-22-2023 30 [facility] BASIC METABOLIC PANELon 11-12 Anion gap [Moles/Vol] 8 mmol/L Normal 7-20 [facility] Comment on above: Performed By: #### L [id number] ####[facility] ([facility])[address] [place] [address] Calcium [Mass/Vol] 6.7 mg/dL Low 8.6-10.3 [facility] Comment on above: Performed By: #### L [id number] ####[facility] ([facility])[address] [place] [address] Chloride [Moles/Vol] 106 mmol/L Normal 98-107 [facility] Comment on above: Performed By: #### L [id number] ####[facility] [place] [address] CO2 [Moles/Vol] 29 mmol/L Normal 21-31 [facility] Comment on above: Performed By: #### L [id number] ####[facility] ([facility])[address] [place] [address] Creatinine [Mass/Vol] 0.84 mg/dL Normal 0.60-1.20 [facility] Comment on above: Performed By: #### L [id number] ####[facility] ([facility])[address] [place] [address] GLOMERULAR FILTRATION RATE ML/MIN/1.73 SQ M.PREDICTED 70.6 mL/min/1.73m*2 Normal >60.0 [facility] Comment on above: Result Comment: [facility]???s estimated glomerular filtration rate (eGFR) will no [...] of individuals. Performed By: #### L [id number] ####[facility] [place] [address] Glucose [Mass/Vol] 87 mg/dL Normal 70-100 [facility] Comment on above: Performed By: #### L [id number] ####[facility] [place] [address] Potassium [Moles/Vol] 4.2 mmol/L Normal 3.5-5.1 [facility] Comment on above: Performed By: #### L [id number] ####[facility] ([facility] [place] [address] Sodium [Moles/Vol] 139 mmol/L Normal 136-145 [facility] Comment on above: Performed By: #### L [id number] ####[facility] ([facility])[address] [place] [address] Urea nitrogen [Mass/Vol] 34 mg/dL High 7-25 [facility] Comment on above: Performed By: #### L [id number] ####[facility] ([facility] [place] [address] UREA NITROGEN/CREATININE (MASS RATIO) IN SER/PLAS 40.5 Normal [facility] Comment on above: Performed By: #### L [id number] ####[facility] ([facility])[address] [place] [address] CBC WITH AUTO DIFFERENTIALon 11-22-2023 Erythrocyte distribution width (RBC) [Ratio] 22.2 % High 11.5-15.0 [facility] Comment on above: Performed By: #### L [id number] ####[facility] ([facility])[address] [place] [address] ERYTHROCYTE MEAN CORPUSCULAR HEMOGLOBIN CONCENTRATION (G/DL) BY AUTOMATED 31.5 g/dL Low 32.0-35.0 [facility] Comment on above: Performed By: #### L [id number] ####[facility] [place] [address] Hematocrit (Bld) [Volume fraction] 26.0 % Low 36.0-48.0 [facility] Comment on above: Performed By: #### L [id number] ####[facility] [place] [address] Hemoglobin (Bld) [Mass/Vol] 8.2 g/dL Low 12.0-15.0 [facility] Comment on above: Performed By: #### L [id number] ####[facility] ([facility])[address] [place] [address] MCH (RBC) [Entitic mass] 30.4 pg Normal 27.0-33.0 [facility] Comment on above: Performed By: #### L [id number] ####[facility] [place] [address] MCV (RBC) [Entitic vol] 96.3 fL Normal 82.0-98.0 [facility] Comment on above: Performed By: #### L [id number] ####[facility] [place] [address] NRBC (PER 100 WBCS) BY AUTOMATED COUNT 2.0 % High 0 [facility] Comment on above: Performed By: #### L [id number] ####[facility] ([facility])[address] [place] [address] PLATELETS (10*3/UL) IN BLOOD AUTOMATED COUNT 136 10*3/uL Low 150-400 [facility] Comment on above: Performed By: #### L [id number] ####[facility] ([facility])[address] [place] [address] RBC (Bld) [#/Vol] 2.70 10*6/uL Low 3.80-5.00 [facility] Comment on above: Performed By: #### L [id number] ####[facility] ([facility])[address] [place] [address] WBC (Bld) [#/Vol] 10.20 10*3/uL Normal 4.00-10.60 [facility] Comment on above: Performed By: #### L [id number] ####[facility] ([facility])[address] [place] [address] CONSULTon 11-22-2023 CONSULT Normal [facility] MAGNESIUMon 11-22-2023 Magnesium [Mass/Vol] 2.0 mg/dL Normal 1.9-2.7 [facility] Comment on above: Performed By: #### L [id number] ####[facility] [place] [address] MANUAL DIFFERENTIALon 2023 ANISOCYTOSIS PRESENCE IN BLOOD BY LIGHT MICROSCOPY Moderate Normal [facility] Comment on above: Performed By: #### L [id number] ####[facility] ([facility])[address] [place] [address] BASOPHILS (10*3/UL) IN BLOOD BY CALCULATION 0.00 10*3/uL Normal 0.00-0.20 [facility] Comment on above: Performed By: #### L [id number] ####[facility] ([facility])[address] [place] [address] BASOPHILS/100 LEUKOCYTES IN BLOOD BY AUTOMATED COUNT 0.0 % Normal 0.0-1.0 [facility] Comment on above: Performed By: #### L [id number] ####[facility] ([facility])[address] [place] [address] EOSINOPHILS (10*3/UL) IN BLOOD BY CALCULATION 0.00 10*3/uL Normal 0.00-0.50 [facility] Comment on above: Performed By: #### L [id number] ####[facility] ([facility])[address] [place] [address] EOSINOPHILS/100 LEUKOCYTES IN BLOOD BY AUTOMATED COUNT 0.0 % Normal 0.0-6.0 [facility] Comment on above: Performed By: #### L [id number] ####[facility] ([facility])[address] [place] [address] LYMPHOCYTES (10*3/UL) IN BLOOD BY CALCULATION 1.55 10*3/uL Normal 1.20-4.00 [facility] Comment on above: Performed By: #### L [id number] ####[facility] ([facility])[address] [place] [address] LYMPHOCYTES/100 LEUKOCYTES IN BLOOD BY AUTOMATED COUNT 15.2 % Low 20.0-45.0 [facility] Comment on above: Performed By: #### L [id number] ####[facility] ([facility])[address] [place] [address] MACROCYTES (PRESENCE) IN BLOOD BY LIGHT MICROSCOPY Slight Normal [facility] Comment on above: Performed By: #### L [id number] ####[facility] ([facility])[address] [place] [address] METAMYELOCYTES (10*3/UL) IN BLOOD BY CALCULATION 0.70 10*3/uL High 0.00 [facility] Comment on above: Performed By: #### L [id number] ####[facility] ([facility])[address] [place] [address] METAMYELOCYTES/100 LEUKOCYTES IN BLOOD CELLAVISION 6.9 % High 0.0-0.0 [facility] Comment on above: Performed By: #### L [id number] ####[facility] ([facility])[address] [place] [address] MONOCYTES (10*3/UL) IN BLOOD BY CALCUATION 0.29 10*3/uL Normal 0.10-1.00 [facility] Comment on above: Performed By: #### L [id number] ####[facility] ([facility])[address] [place] [address] MONOCYTES/100 LEUKOCYTES IN BLOOD BY AUTOMATED COUNT 2.8 % Low 5.0-12.0 [facility] Comment on above: Performed By: #### L [id number] ####[facility] ([facility])[address] [place] [address] MYELOCYTES (10*3/UL) IN BLOOD BY CALCULATION 0.49 10*3/uL High 0.00 [facility] Comment on above: Performed By: #### L [id number] ####[facility] ([facility])[address] [place] [address] MYELOCYTES/100 LEUKOCYTES IN BLOOD CELLAVISION 4.8 % High 0.0-0.0 [facility] Comment on above: Performed By: #### L [id number] ####[facility] ([facility])[address] [place] [address] NEUTROPHILS (10*3/UL) IN BLOOD BY CALCULATION 7.1 10*3/uL Normal 1.6-7.6 [facility] Comment on above: Performed By: #### L [id number] ####[facility] ([facility])[address] [place] [address] NEUTROPHILS/100 LEUKOCYTES IN BLOOD BY AUTOMATED COUNT 69.6 % Normal 40.0-72.0 [facility] Comment on above: Performed By: #### L [id number] ####[facility] ([facility])[address] [place] [address] NUCLEATED RED BLOOD CELLS IN BLOOD BY LIGHT MICROSCOPY Present Normal [facility] Comment on above: Performed By: #### L [id number] ####[facility] ([facility])[address] [place] [address] PLASMA CELLS/100 LEUKOCYTES IN BLOOD 0 % Normal 0 [facility] Comment on above: Performed By: #### L [id number] ####[facility] ([facility])[address] [place] [address] PLATELETS GIANT PRESENCE IN BLOOD BY LIGHT MICROSCOPY Present Normal [facility] Comment on above: Performed By: #### L [id number] ####[facility] ([facility])[address] [place] [address] POIKILOCYTOSIS (PRESENCE) IN BLOOD BY LIGHT MICROSCOPY Slight Normal [facility] Comment on above: Performed By: #### L [id number] ####[facility] ([facility])[address] [place] [address] POLYCHROMASIA IN BLOOD BY LIGHT MICROSCOPY Slight Normal [facility] Comment on above: Performed By: #### L [id number] ####[facility] ([facility])[address] [place] [address] PROMYELOCYTES (10*3/UL) IN BLOOD BY CALCULATION 0.07 10*3/uL High 0.00 [facility] Comment on above: Performed By: #### L [id number] ####[facility] ([facility])[address] [place] [address] PROMYELOCYTES/100 LEUKOCYTES IN BLOOD CELLAVISION 0.7 % High 0.0-0.0 [facility] Comment on above: Performed By: #### L [id number] ####[facility] [address] VARIANT LYMPHOCYTES (10*3/UL) IN BLOOD BY CALCULATION 0.00 10*3/uL Normal 0.00 [facility] Comment on above: Performed By: #### L [id number] ####[facility] ([facility])[address] [place] [address] VARIANT LYMPHOCYTES/100 LEUKOCYTES IN BLOOD CELLAVISION 0.0 % Normal 0.0-0.0 [facility] Comment on above: Performed By: #### L [id number] ####[facility] ([facility])[address] [place] [address] NURSNOTEon 11-22-2023 NURSNOTE Report given to ms rojas from [facility]. Two rings found inside patient's chart are placed back onto patient's fingers. Patient aware of the rings back on her finger. Normal [facility] PHOSPHORUSon 11-22-2023 Magnesium [Mass/Vol] 2.3 mg/dL Low 2.5-5.0 [facility] Comment on above: Performed By: #### L [id number] ####[facility] ([facility])[address] [place] [address] PROTIME-INRon 11-22-2023 INR IN PPP BY COAGULATION ASSAY 1.22 High 0.90-1.10 [facility] Comment on above: Result Comment: ACCC P [...] CHEST 1995;108:[id number]. Performed By: #### L [id number] ####[facility] [place] [address] PROTHROMBIN TIME (PT) IN PPP BY COAGULATION ASSAY 15.5 Seconds High 12.3-14.8 [facility] Comment on above: Performed By: #### L [id number] ####[facility] ([facility])[address] [place] [address] BASIC METABOLIC PANELon 07-0 Anion gap [Moles/Vol] 10 mmol/L Normal 7-20 [facility] Comment on above: Performed By: #### L [id number] ####[facility] [place] [address] Calcium [Mass/Vol] 7.4 mg/dL Low 8.6-10.3 [facility] Comment on above: Performed By: #### L [id number] ####[facility] [place] [address] Chloride [Moles/Vol] 104 mmol/L Normal 98-107 [facility] Comment on above: Performed By: #### L [id number] ####[facility] ([facility])[address] [place] [address] CO2 [Moles/Vol] 30 mmol/L Normal 21-31 [facility] Comment on above: Performed By: #### L [id number] ####[facility] ([facility])[address] [place] [address] Creatinine [Mass/Vol] 1.21 mg/dL High 0.60-1.20 [facility] Comment on above: Performed By: #### L [id number] ####[facility] ([facility])[address] [place] [address] GLOMERULAR FILTRATION RATE ML/MIN/1.73 SQ M.PREDICTED 45.6 mL/min/1.73m*2 Low >60.0 [facility] Comment on above: Result Comment: [facility]???s estimated glomerular filtration rate (eGFR) will no [...] of individuals. Performed By: #### L [id number] ####[facility] ([facility])[address] [place] [address] Glucose [Mass/Vol] 101 mg/dL High 70-100 [facility] Comment on above: Performed By: #### L [id number] ####[facility] ([facility])[address] [place] [address] Potassium [Moles/Vol] 4.1 mmol/L Normal 3.5-5.1 [facility] Comment on above: Performed By: #### L [id number] ####[facility] ([facility])[address] [place] [address] Sodium [Moles/Vol] 140 mmol/L Normal 136-145 [facility] Comment on above: Performed By: #### L [id number] ####[facility] [place] [address] Urea nitrogen [Mass/Vol] 41 mg/dL High 7-25 [facility] Comment on above: Performed By: #### L [id number] ####[facility] [place] [address] UREA NITROGEN/CREATININE (MASS RATIO) IN SER/PLAS 33.9 Normal [facility] Comment on above: Performed By: #### L [id number] ####[facility] ([facility])[address] [place] [address] CBC WITH AUTO DIFFERENTIALon 11-21-2023 Erythrocyte distribution width (RBC) [Ratio] 19.1 % High 11.5-15.0 [facility] Comment on above: Performed By: #### L [id number] ####[facility] ([facility])[address] [place] [address] ERYTHROCYTE MEAN CORPUSCULAR HEMOGLOBIN CONCENTRATION (G/DL) BY AUTOMATED 32.3 g/dL Normal 32.0-35.0 [facility] Comment on above: Performed By: #### L [id number] ####[facility] ([facility])[address] [place] [address] Hematocrit (Bld) [Volume fraction] 25.7 % Low 36.0-48.0 [facility] Comment on above: Performed By: #### L [id number] ####[facility] ([facility])[address] [place] [address] Hemoglobin (Bld) [Mass/Vol] 8.3 g/dL Low 12.0-15.0 [facility] Comment on above: Performed By: #### L [id number] ####[facility] ([facility])[address] [place] [address] MCH (RBC) [Entitic mass] 29.7 pg Normal 27.0-33.0 [facility] Comment on above: Performed By: #### L [id number] ####[facility] ([facility])[address] [place] [address] MCV (RBC) [Entitic vol] 92.1 fL Normal 82.0-98.0 [facility] Comment on above: Performed By: #### L [id number] ####[facility] ([facility])[address] [place] [address] NRBC (PER 100 WBCS) BY AUTOMATED COUNT 8.1 % High 0 [facility] Comment on above: Performed By: #### L [id number] ####[facility] ([facility])[address] [place] [address] PLATELETS (10*3/UL) IN BLOOD AUTOMATED COUNT 134 10*3/uL Low 150-400 [facility] Comment on above: Performed By: #### L [id number] ####[facility] ([facility])[place] [address] RBC (Bld) [#/Vol] 2.79 10*6/uL Low 3.80-5.00 [facility] Comment on above: Performed By: #### L [id number] ####[facility] ([facility])[place] [address] WBC (Bld) [#/Vol] 13.21 10*3/uL High 4.00-10.60 [facility] Comment on above: Performed By: #### L [id number] ####[facility] ([facility])[place] [address] HEMOGLOBIN AND HEMATOCRIT, B LOODon 11-21-2023 Hematocrit (Bld) [Volume fraction] 25.9 % Low 36.0-48.0 [facility] Comment on above: Performed By: #### L [id number] ####[facility] ([facility])[place] [address] Hemoglobin (Bld) [Mass/Vol] 8.3 g/dL Low 12.0-15.0 [facility] Comment on above: Performed By: #### L [id number] ####[facility] ([facility])[place] [address] MAGNESIUMon 11-21-2023 Magnesium [Mass/Vol] 2.1 mg/dL Normal 1.9-2.7 [facility] Comment on above: Performed By: #### L [id number] ####[facility] ([facility])[address] [place] [address] MANUAL DIFFERENTIALon 2023 BASOPHILS (10*3/UL) IN BLOOD BY CALCULATION 0.00 10*3/uL Normal 0.00-0.20 [facility] Comment on above: Performed By: #### L [id number] ####[facility] ([facility])[address] [place] [address] BASOPHILS/100 LEUKOCYTES IN BLOOD BY AUTOMATED COUNT 0.0 % Normal 0.0-1.0 [facility] Comment on above: Performed By: #### L [id number] ####[facility] ([facility])[address] [place] [address] EOSINOPHILS (10*3/UL) IN BLOOD BY CALCULATION 0.09 10*3/uL Normal 0.00-0.50 [facility] Comment on above: Performed By: #### L [id number] ####[facility] ([facility])[address] [place] [address] EOSINOPHILS/100 LEUKOCYTES IN BLOOD BY AUTOMATED COUNT 0.7 % Normal 0.0-6.0 [facility] Comment on above: Performed By: #### L [id number] ####[facility] ([facility])[address] [place] [address] LYMPHOCYTES (10*3/UL) IN BLOOD BY CALCULATION 1.27 10*3/uL Normal 1.20-4.00 [facility] Comment on above: Performed By: #### L [id number] ####[facility] ([facility])[address] [place] [address] LYMPHOCYTES/100 LEUKOCYTES IN BLOOD BY AUTOMATED COUNT 9.6 % Low 20.0-45.0 [facility] Comment on above: Performed By: #### L [id number] ####[facility] ([facility])[address] [place] [address] METAMYELOCYTES (10*3/UL) IN BLOOD BY CALCULATION 0.45 10*3/uL High 0.00 [facility] Comment on above: Performed By: #### L [id number] ####[facility] ([facility])[address] [place] [address] METAMYELOCYTES/100 LEUKOCYTES IN BLOOD CELLAVISION 3.4 % High 0.0-0.0 [facility] Comment on above: Performed By: #### L [id number] ####[facility] ([facility])[address] [place] [address] MONOCYTES (10*3/UL) IN BLOOD BY CALCUATION 0.63 10*3/uL Normal 0.10-1.00 [facility] Comment on above: Performed By: #### L [id number] ####[facility] ([facility])[address] [place] [address] MONOCYTES/100 LEUKOCYTES IN BLOOD BY AUTOMATED COUNT 4.8 % Low 5.0-12.0 [facility] Comment on above: Performed By: #### L [id number] ####[facility] ([facility])[address] [place] [address] MYELOCYTES (10*3/UL) IN BLOOD BY CALCULATION 0.81 10*3/uL High 0.00 [facility] Comment on above: Performed By: #### L [id number] ####[facility] ([facility])[address] [place] [address] MYELOCYTES/100 LEUKOCYTES IN BLOOD CELLAVISION 6.1 % High 0.0-0.0 [facility] Comment on above: Performed By: #### L [id number] ####[facility] ([facility])[address] [place] [address] NEUTROPHILS (10*3/UL) IN BLOOD BY CALCULATION 9.8 10*3/uL High 1.6-7.6 [facility] Comment on above: Performed By: #### L [id number] ####[facility] ([facility])[address] [place] [address] NEUTROPHILS/100 LEUKOCYTES IN BLOOD BY AUTOMATED COUNT 74.0 % High 40.0-72.0 [facility] Comment on above: Performed By: #### L [id number] ####[facility] ([facility])[address] [place] [address] NUCLEATED RED BLOOD CELLS IN BLOOD BY LIGHT MICROSCOPY Present Normal [facility] Comment on above: Performed By: #### L [id number] ####[facility] ([facility])[address] [place] [address] PLASMA CELLS/100 LEUKOCYTES IN BLOOD 0 % Normal 0 [facility] Comment on above: Performed By: #### L [id number] ####[facility] ([facility])[address] [place] [address] PROMYELOCYTES (10*3/UL) IN BLOOD BY CALCULATION 0.18 10*3/uL High 0.00 [facility] Comment on above: Performed By: #### L [id number] ####[facility] ([facility])[address] [place] [address] PROMYELOCYTES/100 LEUKOCYTES IN BLOOD CELLAVISION 1.4 % High 0.0-0.0 [facility] Comment on above: Performed By: #### L [id number] ####[facility] ([facility])[address] [place] [address] VARIANT LYMPHOCYTES (10*3/UL) IN BLOOD BY CALCULATION 0.00 10*3/uL Normal 0.00 [facility] Comment on above: Performed By: #### L [id number] ####[facility] ([facility])[address] [place] [address] VARIANT LYMPHOCYTES/100 LEUKOCYTES IN BLOOD CELLAVISION 0.0 % Normal 0.0-0.0 [facility] Comment on above: Performed By: #### L [id number] ####[facility] ([facility])[address] [place] [address] NURSNOTEon 11-21-2023 NURSNOTE Normal [facility] PHOSPHORUSon 11-21-2023 Magnesium [Mass/Vol] 2.7 mg/dL Normal 2.5-5.0 [facility] Comment on above: Performed By: #### L [id number] ####[facility] ([facility])[address] [place] [address] PROTIME-INRon 11-21-2023 INR IN PPP BY COAGULATION ASSAY 1.18 High 0.90-1.10 [facility] Comment on above: Result Comment: ACCC P [...] CHEST 1995;108:231S-246S. Performed By: #### L [id number] ####[facility] ([employer])[address] [place] [address] PROTHROMBIN TIME (PT) IN PPP BY COAGULATION ASSAY 15.0 Seconds High 12.3-14.8 [facility] Comment on above: Performed By: #### L [id number] ####[facility] ([employer])[address] [place] [address] 30on 11-19-2023 30 Normal [facility] BASIC METABOLIC PANELon 07-0 Anion gap [Moles/Vol] 11 mmol/L Normal 7-20 [facility] Comment on above: Performed By: #### L [id number] ####[facility] ([facility])[address] [place] [address] Calcium [Mass/Vol] 6.8 mg/dL Low 8.6-10.3 [facility] Comment on above: Performed By: #### L [id number] ####[facility] ([facility])[address] [place] [address] Chloride [Moles/Vol] 102 mmol/L Normal 98-107 [facility] Comment on above: Performed By: #### L [id number] ####[facility] [place] [address] CO2 [Moles/Vol] 29 mmol/L Normal 21-31 [facility] Comment on above: Performed By: #### L [id number] ####[facility] ([facility])[address] [place] [address] Creatinine [Mass/Vol] 1.59 mg/dL High 0.60-1.20 [facility] Comment on above: Performed By: #### L [id number] ####[facility] ([facility])[address] [place] [address] GLOMERULAR FILTRATION RATE ML/MIN/1.73 SQ M.PREDICTED 32.8 mL/min/1.73m*2 Low >60.0 [facility] Comment on above: Result Comment: [facility]???s estimated glomerular filtration rate (eGFR) will no [...] of individuals. Performed By: #### L [id number] ####[facility] [place] [address] Glucose [Mass/Vol] 116 mg/dL High 70-100 [facility] Comment on above: Performed By: #### L [id number] ####[facility] [place] [address] Potassium [Moles/Vol] 4.4 mmol/L Normal 3.5-5.1 [facility] Comment on above: Performed By: #### L [id number] ####[facility] [place] [address] Sodium [Moles/Vol] 138 mmol/L Normal 136-145 [facility] Comment on above: Performed By: #### L [id number] ####[facility] ([facility])[address] [place] [address] Urea nitrogen [Mass/Vol] 47 mg/dL High 7-25 [facility] Comment on above: Performed By: #### L [id number] ####[facility] ([facility])[address] [place] [address] UREA NITROGEN/CREATININE (MASS RATIO) IN SER/PLAS 29.6 Normal [facility] Comment on above: Performed By: #### L [id number] ####[facility] ([facility])[address] [place] [address] CALCIUM, IONIZEDon CALCIUM IONIZED (MMOL/L) IN BLOOD 0.97 mmol/L Low 1.15-1.33 [facility] Comment on above: Performed By: #### L [id number] ####[facility] [id number] [place] [address] [place] CBCon 11-20-2023 Erythrocyte distribution width (RBC) [Ratio] 18.4 % High 11.5-15.0 [facility] Comment on above: Performed By: #### L [id number] ####[facility] ([facility])[address] [place] [address] ERYTHROCYTE MEAN CORPUSCULAR HEMOGLOBIN CONCENTRATION (G/DL) BY AUTOMATED 32.6 g/dL Normal 32.0-35.0 [facility] Comment on above: Performed By: #### L [id number] ####[facility] ([facility])[address] [place] [address] Hematocrit (Bld) [Volume fraction] 24.2 % Low 36.0-48.0 [facility] Comment on above: Performed By: #### L [id number] ####[facility] ([facility])[address] [place] [address] Hemoglobin (Bld) [Mass/Vol] 7.9 g/dL Low 12.0-15.0 [facility] Comment on above: Performed By: #### L [id number] ####[facility] [place] [address] MCH (RBC) [Entitic mass] 29.9 pg Normal 27.0-33.0 [facility] Comment on above: Performed By: #### L [id number] ####[facility] ([facility])[address] [place] [address] MCV (RBC) [Entitic vol] 91.7 fL Normal 82.0-98.0 [facility] Comment on above: Performed By: #### L [id number] ####[facility] ([facility])[address] [place] [address] PLATELETS (10*3/UL) IN BLOOD AUTOMATED COUNT 133 10*3/uL Low 150-400 [facility] Comment on above: Performed By: #### L [id number] ####[facility] ([facility])[address] [place] [address] RBC (Bld) [#/Vol] 2.64 10*6/uL Low 3.80-5.00 [facility] Comment on above: Performed By: #### L [id number] ####[facility] ([facility])[address] [place] [address] WBC (Bld) [#/Vol] 13.49 10*3/uL High 4.00-10.60 [facility] Comment on above: Performed By: #### L [id number] ####[facility] [place] [address] CBC WITH AUTO DIFFERENTIALon 11-20-2023 Erythrocyte distribution width (RBC) [Ratio] 22.2 % High 11.5-15.0 [facility] Comment on above: Performed By: #### L [id number] ####[facility] ([facility])[address] [place] [address] ERYTHROCYTE MEAN CORPUSCULAR HEMOGLOBIN CONCENTRATION (G/DL) BY AUTOMATED 31.1 g/dL Low 32.0-35.0 [facility] Comment on above: Performed By: #### L [id number] ####[facility] ([facility])[address] [place] [address] Hematocrit (Bld) [Volume fraction] 18.0 % Low 36.0-48.0 [facility] Comment on above: Performed By: #### L [id number] ####[facility] ([facility])[address] [place] [address] Hemoglobin (Bld) [Mass/Vol] 5.6 g/dL Invalid Interpretation Code 12.0-15.0 [facility] Comment on above: Performed By: #### L [id number] ####[facility] ([facility])[address] [place] [address] MCH (RBC) [Entitic mass] 29.3 pg Normal 27.0-33.0 [facility] Comment on above: Performed By: #### L [id number] ####[facility] ([facility])[address] [place] [address] MCV (RBC) [Entitic vol] 94.2 fL Normal 82.0-98.0 [facility] Comment on above: Performed By: #### L [id number] ####[facility] ([facility])[address] [place] [address] NRBC (PER 100 WBCS) BY AUTOMATED COUNT 11.3 % High 0 [facility] Comment on above: Performed By: #### L [id number] ####[facility] ([facility])[address] [place] [address] PLATELETS (10*3/UL) IN BLOOD AUTOMATED COUNT 139 10*3/uL Low 150-400 [facility] Comment on above: Performed By: #### L [id number] ####[facility] ([facility])[address] [place] [address] RBC (Bld) [#/Vol] 1.91 10*6/uL Low 3.80-5.[address] [facility] Comment on above: Performed By: #### L [id number] ####[facility] ([facility])[address] [place] [address] WBC (Bld) [#/Vol] 13.93 10*3/uL High 4.00-10.60 [facility] Comment on above: Performed By: #### L [id number] ####[facility] ([facility])[address] [place] [address] CKon 11-20-2023 CREATINE KINASE (U/L) IN SER/PLAS 239.0 U/L High 30.0-223.0 [facility] Comment on above: Performed By: #### L [id number] ####[facility] [place] [address] HEMOGLOBIN AND HEMATOCRIT, B LOODon 11-20-2023 Hematocrit (Bld) [Volume fraction] 22.7 % Low 36.0-48.0 [facility] Comment on above: Performed By: #### L [id number] ####[facility] ([facility])[address] [place] [address] Hemoglobin (Bld) [Mass/Vol] 7.2 g/dL Low 12.0-15.0 [facility] Comment on above: Performed By: #### L [id number] ####[facility] ([facility])[address] [place] [address] Hematocrit (Bld) [Volume fraction] 18.7 % Low 36.0-48.0 [facility] Comment on above: Performed By: #### L [id number] ####[facility] ([facility])[address] [place] [address] Hemoglobin (Bld) [Mass/Vol] 5.8 g/dL Invalid Interpretation Code 12.0-15.0 [facility] Comment on above: Performed By: #### L [id number] ####[facility] ([facility])[address] [place] [address] MAGNESIUMon 11-20-2023 Magnesium [Mass/Vol] 2.1 mg/dL Normal 1.9-2.7 [facility] Comment on above: Performed By: #### L [id number] ####[facility] ([facility])[address] [place] [address] MANUAL DIFFERENTIALon 2023 ANISOCYTOSIS PRESENCE IN BLOOD BY LIGHT MICROSCOPY Moderate Normal [facility] Comment on above: Performed By: #### L [id number] ####[facility] ([facility])[address] [place] [address] BASOPHILS (10*3/UL) IN BLOOD BY CALCULATION 0.00 10*3/uL Normal 0.00-0.20 [facility] Comment on above: Performed By: #### L [id number] ####[facility] ([facility])[address] [place] [address] BASOPHILS/100 LEUKOCYTES IN BLOOD BY AUTOMATED COUNT 0.0 % Normal 0.0-1.0 [facility] Comment on above: Performed By: #### L [id number] ####[facility] ([facility])[address] [place] [address] EOSINOPHILS (10*3/UL) IN BLOOD BY CALCULATION 0.00 10*3/uL Normal 0.00-0.50 [facility] Comment on above: Performed By: #### L [id number] ####[facility] ([facility])[address] [place] [address] EOSINOPHILS/100 LEUKOCYTES IN BLOOD BY AUTOMATED COUNT 0.0 % Normal 0.0-6.0 [facility] Comment on above: Performed By: #### L [id number] ####[facility] ([facility])[address] [place] [address] HYPOCHROMIA (PRESENCE) IN BLOOD BY LIGHT MICROSCOPY Slight Normal [facility] Comment on above: Performed By: #### L [id number] ####[facility] [place] [address] LYMPHOCYTES (10*3/UL) IN BLOOD BY CALCULATION 1.94 10*3/uL Normal 1.20-4.00 [facility] Comment on above: Performed By: #### L [id number] ####[facility] ([facility])[address] [place] [address] LYMPHOCYTES/100 LEUKOCYTES IN BLOOD BY AUTOMATED COUNT 13.9 % Low 20.0-45.0 [facility] Comment on above: Performed By: #### L [id number] ####[facility] ([facility])[address] [place] [address] METAMYELOCYTES (10*3/UL) IN BLOOD BY CALCULATION 0.39 10*3/uL High 0.00 [facility] Comment on above: Performed By: #### L [id number] ####[facility] ([facility])[address] [place] [address] METAMYELOCYTES/100 LEUKOCYTES IN BLOOD CELLAVISION 2.8 % High 0.0-0.0 [facility] Comment on above: Performed By: #### L [id number] ####[facility] ([facility])[address] [place] [address] MONOCYTES (10*3/UL) IN BLOOD BY CALCUATION 0.38 10*3/uL Normal 0.10-1.00 [facility] Comment on above: Performed By: #### L [id number] ####[facility] ([facility])[address] [place] [address] MONOCYTES/100 LEUKOCYTES IN BLOOD BY AUTOMATED COUNT 2.7 % Low 5.0-12.0 [facility] Comment on above: Performed By: #### L [id number] ####[facility] ([facility])[address] [place] [address] MYELOCYTES (10*3/UL) IN BLOOD BY CALCULATION 0.20 10*3/uL High 0.00 [facility] Comment on above: Performed By: #### L [id number] ####[facility] ([facility])[address] [place] [address] MYELOCYTES/100 LEUKOCYTES IN BLOOD CELLAVISION 1.4 % High 0.0-0.0 [facility] Comment on above: Performed By: #### L [id number] ####[facility] ([facility])[address] [place] [address] NEUTROPHILS (10*3/UL) IN BLOOD BY CALCULATION 10.8 10*3/uL High 1.6-7.6 [facility] Comment on above: Performed By: #### L [id number] ####[facility] ([facility])[address] [place] [address] NEUTROPHILS/100 LEUKOCYTES IN BLOOD BY AUTOMATED COUNT 77.8 % High 40.0-72.0 [facility] Comment on above: Performed By: #### L [id number] ####[facility] ([facility])[address] [place] [address] NUCLEATED RED BLOOD CELLS IN BLOOD BY LIGHT MICROSCOPY Present Normal [facility] Comment on above: Performed By: #### L [id number] ####[facility] ([facility])[address] [place] [address] PLASMA CELLS/100 LEUKOCYTES IN BLOOD 0 % Normal 0 [facility] Comment on above: Performed By: #### L [id number] ####[facility] ([facility])[address] [place] [address] PLATELETS GIANT PRESENCE IN BLOOD BY LIGHT MICROSCOPY Present Normal [facility] Comment on above: Performed By: #### L [id number] ####[facility] ([facility])[address] [place] [address] POIKILOCYTOSIS (PRESENCE) IN BLOOD BY LIGHT MICROSCOPY Slight Normal [facility] Comment on above: Performed By: #### L [id number] ####[facility] ([facility])[address] [place] [address] POLYCHROMASIA IN BLOOD BY LIGHT MICROSCOPY Slight Normal [facility] Comment on above: Performed By: #### L [id number] ####[facility] ([facility])[address] [place] [address] PROMYELOCYTES (10*3/UL) IN BLOOD BY CALCULATION 0.20 10*3/uL High 0.00 [facility] Comment on above: Performed By: #### L [id number] ####[facility] ([facility])[address] [place] [address] PROMYELOCYTES/100 LEUKOCYTES IN BLOOD CELLAVISION 1.4 % High 0.0-0.0 [facility] Comment on above: Performed By: #### L [id number] ####[facility] ([facility])[address] [place] [address] VARIANT LYMPHOCYTES (10*3/UL) IN BLOOD BY CALCULATION 0.00 10*3/uL Normal 0.00 [facility] Comment on above: Performed By: #### L [id number] ####[facility] ([facility])[address] [place] [address] VARIANT LYMPHOCYTES/100 LEUKOCYTES IN BLOOD CELLAVISION 0.0 % Normal 0.0-0.0 [facility] Comment on above: Performed By: #### L [id number] ####[facility] ([facility])[address] [place] [address] NURSNOTEon 11-20-2023 NURSNOTE [facility] NURSNOTE Patient has critical HGB of 5.8. DPOA was contacted at 0150 and did not moss picker to get consent for blood transfusion. Will transfuse emergently. [facility] PATHOLOGY REVIEWon PATHOLOGY REVIEW Electronically christina d by Viktoriya Dominguez MD on 11/20/23 at 12:12 PM. [facility] Comment on above: Performed By: #### L [id number] ####[facility] ([facility])[address] [place] [address] PHOSPHORUSon 11-20-2023 Magnesium [Mass/Vol] 3.2 mg/dL Normal 2.5-5.0 [facility] Comment on above: Performed By: #### L [id number] ####[facility] ([facility])[address] [place] [address] PROTIME-INRon 11-20-2023 INR IN PPP BY COAGULATION ASSAY 3.65 High 0.90-1.10 [facility] Comment on above: Result Comment: ACCC P [...] CHEST 1995;108:231S-246S. Performed By: #### L [id number] ####[facility] ([facility])[address] [place] [address] PROTHROMBIN TIME (PT) IN PPP BY COAGULATION ASSAY 36.6 Seconds High 12.3-14.8 [facility] Comment on above: Performed By: #### L [id number] ####[facility] ([facility])[address] [place] [address] INR IN PPP BY COAGULATION ASSAY 4.24 High 0.90-1.10 [facility] Comment on above: Result Comment: [facility] P RECOMMENDED INR FOR WARFARIN THERAPY CONDITION INRPROPHYLAXIS OF VENOUS THROMBOSIS 2-3(HIGH-RISK SURGERY)TREATMENT OF VENOUS THROMBOSIS 2-3TREATMENT OF PULMONARY EMBOLISM 2-3PREVENTION OF SYSTEMIC EMBOLISM: 2-3 ACUTE MYOCARDIAL INFARCTION TISSUE HEART VALVES VALVULAR HEART DISEASE ATRIAL FIBRILLATION RECURRENT SYSTEMIC EMBOLISMMECHANICAL HEART VALVE 2.5-3.5 FROM: ORAL ANTICOAGULANTS. MECHANISM OF ACTION, CLINICAL EFFECTIVENESS, AND OPTIMAL THERAPEUTIC RANGE. CHEST 1995;108:231S-246S. Performed By: #### L [id number] ####[facility] ([facility])[address] [place] [address] PROTHROMBIN TIME (PT) IN PPP BY COAGULATION ASSAY 41.1 Seconds High 12.3-14.8 [facility] Comment on above: Performed By: #### L [id number] ####[facility] ([facility])[address] [place] [address] 30on 11-19-2023 30 Normal [facility] BASIC METABOLIC PANELon 07-0 Anion gap [Moles/Vol] 14 mmol/L Normal 7-20 [facility] Comment on above: Performed By: #### L [id number] ####[facility] ([facility])[address] [place] [address] Calcium [Mass/Vol] 6.9 mg/dL Low 8.6-10.3 [facility] Comment on above: Performed By: #### L [id number] ####[facility] ([facility])[address] [place] [address] Chloride [Moles/Vol] 99 mmol/L Normal 98-107 [facility] Comment on above: Performed By: #### L [id number] ####[facility] ([facility])[address] [place] [address] CO2 [Moles/Vol] 28 mmol/L Normal 21-31 [facility] Comment on above: Performed By: #### L [id number] ####[facility] ([facility])[address] [place] [address] Creatinine [Mass/Vol] 2.03 mg/dL High 0.60-1.20 [facility] Comment on above: Performed By: #### L [id number] ####[facility] ([facility])[address] [place] [address] GLOMERULAR FILTRATION RATE ML/MIN/1.73 SQ M.PREDICTED 24.5 mL/min/1.73m*2 Low >60.0 [facility] Comment on above: Result Comment: [facility]???s estimated glomerular filtration rate (eGFR) will no [...] of individuals. Performed By: #### L [id number] ####[facility] ([facility])[address] [place] [address] Glucose [Mass/Vol] 107 mg/dL High 70-100 [facility] Comment on above: Performed By: #### L [id number] ####[facility] ([facility])[address] [place] [address] Potassium [Moles/Vol] 3.0 mmol/L Low 3.5-5.1 [facility] Comment on above: Performed By: #### L [id number] ####[facility] ([facility])[address] [place] [address] Sodium [Moles/Vol] 138 mmol/L Normal 136-145 [facility] Comment on above: Performed By: #### L [id number] ####[facility] ([facility])[address] [place] [address] Urea nitrogen [Mass/Vol] 49 mg/dL High 7-25 [facility] Comment on above: Performed By: #### L [id number] ####[facility] ([facility])[address] [place] [address] UREA NITROGEN/CREATININE (MASS RATIO) IN SER/PLAS 24.1 Normal [facility] Comment on above: Performed By: #### L [id number] ####[facility] ([facility])[address] [place] [address] CALCIUM, IONIZEDon CALCIUM IONIZED (MMOL/L) IN BLOOD 0.91 mmol/L Low 1.15-1.33 [facility] Comment on above: Performed By: #### L [id number] ####[facility] RES[facility] [id number] [place] [address] [place] CBC WITH AUTO DIFFERENTIALon 11-19-2023 Erythrocyte distribution width (RBC) [Ratio] 22.3 % High 11.5-15.0 [facility] Comment on above: Performed By: #### L [id number] ####[facility] ([facility])[address] [place] [address] ERYTHROCYTE MEAN CORPUSCULAR HEMOGLOBIN CONCENTRATION (G/DL) BY AUTOMATED 31.6 g/dL Low 32.0-35.0 [facility] Comment on above: Performed By: #### L [id number] ####[facility] (BEAKER)[address] [place] [address] Hematocrit (Bld) [Volume fraction] 19.6 % Low 36.0-48.0 [facility] Comment on above: Performed By: #### L [id number] ####[facility] (BEAKER)[address] [place] [address] Hemoglobin (Bld) [Mass/Vol] 6.2 g/dL Low 12.0-15.0 [facility] Comment on above: Performed By: #### L [id number] ####[facility] (BEAKER)[address] [place] [address] MCH (RBC) [Entitic mass] 29.2 pg Normal 27.0-33.0 [facility] Comment on above: Performed By: #### L [id number] ####[facility] (BEAKER)[address] [place] [address] MCV (RBC) [Entitic vol] 92.5 fL Normal 82.0-98.0 [facility] Comment on above: Performed By: #### L [id number] ####[facility] ([facility])[address] [address] NRBC (PER 100 WBCS) BY AUTOMATED COUNT 9.5 % High 0 [facility] Comment on above: Performed By: #### L [id number] ####[facility] ([facility])[address] [address] PLATELETS (10*3/UL) IN BLOOD AUTOMATED COUNT 123 10*3/uL Low 150-400 [facility] Comment on above: Performed By: #### L [id number] ####[facility] ([facility])[address] [address] RBC (Bld) [#/Vol] 2.12 10*6/uL Low 3.80-5.00 [facility] Comment on above: Performed By: #### L [id number] ####[facility] ([facility])[address] [address] WBC (Bld) [#/Vol] 18.42 10*3/uL High 4.00-10.60 [facility] Comment on above: Performed By: #### L [id number] ####[facility] ([facility])[address] [address] HEPATIC FUNCTION PANELon Albumin [Mass/Vol] 2.1 g/dL Low 3.5-5.7 [facility] Comment on above: Performed By: #### L [id number] ####[facility] ([facility])[address] [address] ALP [Catalytic activity/Vol] 97 U/L Normal 34-104 [facility] Comment on above: Performed By: #### L [id number] ####[facility] [address] ALT [Catalytic activity/Vol] 29 U/L Normal 7-52 [facility] Comment on above: Performed By: #### L [id number] ####[facility] ([facility])[address] [address] AST [Catalytic activity/Vol] 89 U/L High 13-39 [facility] Comment on above: Performed By: #### L [id number] ####[facility] ([facility])[address] [place] [address] Bilirubin [Mass/Vol] 0.9 mg/dL Normal 0.3-1.0 [facility] Comment on above: Performed By: #### L [id number] ####[facility] ([facility])[address] [place], [place] [address] Magnesium [Mass/Vol] 0.4 mg/dL High 0-0.2 [facility] Comment on above: Performed By: #### L [id number] ####[facility] ([facility])[address] [place], [place] [address] Protein [Mass/Vol] 4.0 g/dL Low 6.0-8.3 [facility] Comment on above: Performed By: #### L [id number] ####[facility] ([facility])[address] [place] [address] LACTIC ACID WITH 4 HOUR REFL EXon 11-19-2023 LACTATE (MMOL/L) IN SER/PLAS 0.9 mmol/L Normal 0.5-2.2 [facility] Comment on above: Performed By: #### L [id number] ####[facility] ([facility])[address] [place] [address] MAGNESIUMon 11-19-2023 Magnesium [Mass/Vol] 1.9 mg/dL Normal 1.9-2.7 [facility] Comment on above: Performed By: #### L [id number] ####[facility] ([facility])[address] [place] [address] MANUAL DIFFERENTIALon 2023 ANISOCYTOSIS PRESENCE IN BLOOD BY LIGHT MICROSCOPY Moderate Normal [facility] Comment on above: Performed By: #### L [id number] ####[facility] [place] [address] BASOPHILS (10*3/UL) IN BLOOD BY CALCULATION 0.00 10*3/uL Normal 0.00-0.20 [facility] Comment on above: Performed By: #### L [id number] ####[facility] [place] [address] BASOPHILS/100 LEUKOCYTES IN BLOOD BY AUTOMATED COUNT 0.0 % Normal 0.0-1.0 [facility] Comment on above: Performed By: #### L [id number] ####[facility] ([facility])[address] [place] [address] EOSINOPHILS (10*3/UL) IN BLOOD BY CALCULATION 0.00 10*3/uL Normal 0.00-0.50 [facility] Comment on above: Performed By: #### L [id number] ####[facility] ([facility])[address] [place] [address] EOSINOPHILS/100 LEUKOCYTES IN BLOOD BY AUTOMATED COUNT 0.0 % Normal 0.0-6.0 [facility] Comment on above: Performed By: #### L [id number] ####[facility] ([facility])[address] [place] [address] HYPOCHROMIA (PRESENCE) IN BLOOD BY LIGHT MICROSCOPY Moderate Normal [facility] Comment on above: Performed By: #### L [id number] ####[facility] [place] [address] LYMPHOCYTES (10*3/UL) IN BLOOD BY CALCULATION 1.23 10*3/uL Normal 1.20-4.00 [facility] Comment on above: Performed By: #### L [id number] ####[facility] [place] [address] LYMPHOCYTES/100 LEUKOCYTES IN BLOOD BY AUTOMATED COUNT 6.7 % Low 20.0-45.0 [facility] Comment on above: Performed By: #### L [id number] ####[facility] ([facility])[address] [place] [address] MONOCYTES (10*3/UL) IN BLOOD BY CALCUATION 0.87 10*3/uL Normal 0.10-1.00 [facility] Comment on above: Performed By: #### L [id number] ####[facility] ([facility])[address] [place] [address] MONOCYTES/100 LEUKOCYTES IN BLOOD BY AUTOMATED COUNT 4.7 % Low 5.0-12.0 [facility] Comment on above: Performed By: #### L [id number] ####[facility] ([facility])[address] [place] [address] NEUTROPHILS (10*3/UL) IN BLOOD BY CALCULATION 15.8 10*3/uL High 1.6-7.6 [facility] Comment on above: Performed By: #### L [id number] ####[facility] ([facility])[address] [place] [address] NEUTROPHILS/100 LEUKOCYTES IN BLOOD BY AUTOMATED COUNT 85.9 % High 40.0-72.0 [facility] Comment on above: Performed By: #### L [id number] ####[facility] ([facility])[address] [place] [address] NUCLEATED RED BLOOD CELLS IN BLOOD BY LIGHT MICROSCOPY Present Normal [facility] Comment on above: Performed By: #### L [id number] ####[facility] ([facility])[address] [place] [address] PLASMA CELLS/100 LEUKOCYTES IN BLOOD 0 % Normal 0 [facility] Comment on above: Performed By: #### L [id number] ####[facility] ([facility])[address] [place] [address] PLATELETS GIANT PRESENCE IN BLOOD BY LIGHT MICROSCOPY Present Normal [facility] Comment on above: Performed By: #### L [id number] ####[facility] ([facility])[address] [place] [address] POIKILOCYTOSIS (PRESENCE) IN BLOOD BY LIGHT MICROSCOPY Slight Normal [facility] Comment on above: Performed By: #### L [id number] ####[facility] ([facility])[address] [place] [address] POLYCHROMASIA IN BLOOD BY LIGHT MICROSCOPY Slight Normal [facility] Comment on above: Performed By: #### L [id number] ####[facility] ([facility])[address] [place] [address] PROMYELOCYTES (10*3/UL) IN BLOOD BY CALCULATION 0.50 10*3/uL High 0.00 [facility] Comment on above: Performed By: #### L [id number] ####[facility] ([facility])[address] [address] PROMYELOCYTES/100 LEUKOCYTES IN BLOOD CELLAVISION 2.7 % High 0.0-0.0 [facility] Comment on above: Performed By: #### L [id number] ####[facility] ([facility])[address] [address] VARIANT LYMPHOCYTES (10*3/UL) IN BLOOD BY CALCULATION 0.00 10*3/uL Normal 0.00 [facility] Comment on above: Performed By: #### L [id number] ####[facility] ([facility])[address] [address] VARIANT LYMPHOCYTES/100 LEUKOCYTES IN BLOOD CELLAVISION 0.0 % Normal 0.0-0.0 [facility] Comment on above: Performed By: #### L [id number] ####[facility] ([facility])[address] [address] NURSNOTEon 11-19-2023 NURSNOTE Normal [facility] PHOSPHORUSon 11-19-2023 Magnesium [Mass/Vol] 4.1 mg/dL Normal 2.5-5.0 [facility] Comment on above: Performed By: #### L [id number] ####[facility] ([facility])[address] [address] POTASSIUMon 11-19-2023 Potassium [Moles/Vol] 3.7 mmol/L Normal 3.5-5.1 [facility] Comment on above: Performed By: #### L [id number] ####[facility] ([facility])[address] [place] [address] PROTIME-INRon 11-19-2023 INR IN PPP BY COAGULATION ASSAY 4.04 High 0.90-1.10 [facility] Comment on above: Result Comment: ACCC P [...] CHEST 1995;[id number]. Performed By: #### L [id number] ####[facility] ([facility])[address] [place] [address] PROTHROMBIN TIME (PT) IN PPP BY COAGULATION ASSAY 39.6 Seconds High 12.3-14.8 [facility] Comment on above: Performed By: #### L [id number] ####[facility] ([facility])[address] [place] [address] TYPE AND SCREENon 11-19-2023 AB SCREEN Negative Normal [facility] Comment on above: Performed By: #### L [id number] ####[facility], ABO group Nom (Bld) O Normal [facility] Comment on above: Performed By: #### L [id number] ####[facility], RH TYPE IN BLOOD Positive Normal [facility] Comment on above: Performed By: #### L [id number] ####[facility], 11-18-2023 30 Normal [facility] 11-17-2023 30 Normal [facility] 30 Normal [facility] 30 Normal [facility] CONSULTon 11-17-2023 CONSULT [facility] NURSNOTEon 11-17-2023 NURSNOTE Patient states frustration with having to do assessment, and meds stating she doesn't want to be told what to do . Patient also refusing oxygen at this time. [facility] 11-16-2023 [facility] 11-15-2023 30 [facility] 30 [facility] ANESon 11-15-2023 ANES [facility] ARTERIAL BLOOD GAS WITH CO-O XIMETRYon 11-15-2023 Base excess Calc (Bld) [Moles/Vol] -16.99802 mmol/L Low -2.0-3.0 [facility] Comment on above: Performed By: #### L [id number] ####[facility] RESP[facility] [id number] [place] [address] [facility] CARBOXYHEMOGLOBIN/HEM OGLOBIN TOTAL % IN BLOOD 1.3 % Normal 0.0-3.0 [facility] Comment on above: Performed By: #### L [id number] ####[facility] [id number] [place] [address] [facility] CO2 (Bld) [Partial pressure] 32 mm[Hg] Low 35-48 [facility] Comment on above: Performed By: #### L [id number] ####[facility] RESPIR[facility] [id number] [place] [address] [facility] DEOXYGENATED HEMOGLOBIN IN BLOOD 4.6 % Normal 1-5 [facility] Comment on above: Performed By: #### L [id number] ####[facility] RESPIR[facility] [id number] [place] [address] [place] HCO3 (Bld) [Moles/Vol] 11.1 mmol/L Low 21.0-28.0 [facility] Comment on above: Performed By: #### L [id number] ####[facility] RESPIR[facility] [id number] [place] [address] [facility] Hemoglobin (Bld) [Mass/Vol] 8.9 g/dL Low 11.7-17.4 [facility] Comment on above: Performed By: #### L [id number] ####[facility] RESPIR[facility] [id number] [place] [address] [facility] METHEMOGLOBIN/100 IN BLOOD 0.3 % Normal 0.0-1.5 [facility] Comment on above: Performed By: #### L [id number] ####[facility] RESPIR[facility] [id number] [place] [address] [facility] Oxygen (Bld) [Partial pressure] 75 mm[Hg] Low 83-100 [facility] Comment on above: Performed By: #### L [id number] ####[facility] RESPIRATORY [id number] [place] [address] [facility] OXYGEN SATURATION (%) IN ARTERIAL BLOOD 95.3 % Normal 94.0-98.0 [facility] Comment on above: Performed By: #### L [id number] ####[facility] RESPIR[facility] [id number] [place] [address] [facility] OXYGENATED HEMOGLOBIN IN BLOOD 93.8 % Normal 90.0-95.0 [facility] Comment on above: Performed By: #### L [id number] ####[facility] RESPIRATORY [id number] [place] [address] [facility] pH (Bld) 7.15 [pH] Invalid Interpretation Code 7.35-7.45 [facility] Comment on above: Performed By: #### L [id number] ####[facility] RESPIR[facility]ORY [id number] [place] [address] [facility] SOURCE OF OXYGEN Room Air Normal [facility] Comment on above: Performed By: #### L [id number] ####[facility] RESPIRATORY [id number] [place] [address] [facility] Base excess Calc (Bld) [Moles/Vol] -18.15198 mmol/L Low -2.0-3.0 [facility] Comment on above: Performed By: #### L [id number] ####[facility] RESPIRATORY [id number] [place] [address] [facility] CARBOXYHEMOGLOBIN/HEM OGLOBIN TOTAL % IN BLOOD 1.7 % Normal 0.0-3.0 [facility] Comment on above: Performed By: #### L [id number] ####[facility] RESPIRATORY [id number] [place] [address] [facility] CO2 (Bld) [Partial pressure] 27 mm[Hg] Low 35-48 [facility] Comment on above: Performed By: #### L [id number] ####[facility] RESPIRATORY [id number] [place] [address] [facility] DEOXYGENATED HEMOGLOBIN IN BLOOD 1.6 % Normal 1-5 [facility] Comment on above: Performed By: #### L [id number] ####[facility] RESPIRATORY [id number] [place] [address] [place] HCO3 (Bld) [Moles/Vol] 9.0 mmol/L Low 21.0-28.0 [facility] Comment on above: Performed By: #### L [id number] ####[facility] RESPIRATORY [id number] [place] [address] [facility] Hemoglobin (Bld) [Mass/Vol] 9.6 g/dL Low 11.7-17.4 [facility] Comment on above: Performed By: #### L [id number] ####[facility] RESPIRATORY [id number] [place] [address] [place] METHEMOGLOBIN/100 IN BLOOD 0.8 % Normal 0.0-1.5 [facility] Comment on above: Performed By: #### L [id number] ####[facility] RESPIRATORY [id number] [place] [address] [place] Oxygen (Bld) [Partial pressure] 98 mm[Hg] Normal 83-100 [facility] Comment on above: Performed By: #### L [id number] ####[facility] RESPIRATORY [id number] [place] [address] [place] OXYGEN SATURATION (%) IN ARTERIAL BLOOD 98.4 % High 94.0-98.0 [facility] Comment on above: Performed By: #### L [id number] ####[facility] RESPIRATORY [id number] [place] [address] [place] OXYGENATED HEMOGLOBIN IN BLOOD 95.9 % High 90.0-95.0 [facility] Comment on above: Performed By: #### L [id number] ####[facility] RESPIRAT[facility] [id number] [address] [facility] [place] [address] [place] pH (Bld) 7.13 [pH] Invalid Interpretation Code 7.35-7.45 [facility] Comment on above: Performed By: #### L [id number] ####[facility] RESPIRATORY [id number] [place] [address] [facility] SOURCE OF OXYGEN Room Air Normal [facility] Comment on above: Performed By: #### L [id number] ####[facility] RESPIRATORY [id number] [place] [address] [place] Base excess Calc (Bld) [Moles/Vol] -19.60963 mmol/L Low -2.0-3.0 [facility] Comment on above: Performed By: #### L [id number] ####[facility] RESPIRATORY [id number] [place] [address] [place] CARBOXYHEMOGLOBIN/HEM OGLOBIN TOTAL % IN BLOOD 1.9 % Normal 0.0-3.0 [facility] Comment on above: Performed By: #### L [id number] ####[facility] RESPIRATORY [id number] [place] [address] [place] CO2 (Bld) [Partial pressure] 30 mm[Hg] Low 35-48 [facility] Comment on above: Performed By: #### L [id number] ####[facility] RESPIRATORY [id number] [place] [address] [place] DEOXYGENATED HEMOGLOBIN IN BLOOD 2.6 % Normal 1-5 [facility] Comment on above: Performed By: #### L [id number] ####[facility] RESPIRATORY [id number] [place] [address] [facility] HCO3 (Bld) [Moles/Vol] 8.9 mmol/L Low 21.0-28.0 [facility] Comment on above: Performed By: #### L [id number] ####[facility] RESPIRATORY [id number] [place] [address] [facility] Hemoglobin (Bld) [Mass/Vol] 9.8 g/dL Low 11.7-17.4 [facility] Comment on above: Performed By: #### L [id number] ####[facility] RESPIRATORY [id number] [place] [address] [facility] METHEMOGLOBIN/100 IN BLOOD 0.7 % Normal 0.0-1.5 [facility] Comment on above: Performed By: #### L [id number] ####[facility] RESPIRATORY [id number] [place] [address] [facility] Oxygen (Bld) [Partial pressure] 86 mm[Hg] Normal 83-100 [facility] Comment on above: Performed By: #### L [id number] ####[facility] RESPIRATORY [id number] [place] [address] [facility] OXYGEN SATURATION (%) IN ARTERIAL BLOOD 97.3 % Normal 94.0-98.0 [facility] Comment on above: Performed By: #### L [id number] ####[facility] RESPIRATORY [id number] [place] [address] [facility] OXYGENATED HEMOGLOBIN IN BLOOD 94.8 % Normal 90.0-95.0 [facility] Comment on above: Performed By: #### L [id number] ####[facility] RESPIRATORY [id number] [place] [address] [facility] pH (Bld) 7.08 [pH] Invalid Interpretation Code 7.35-7.45 [facility] Comment on above: Performed By: #### L [id number] ####[facility] RESPIRATORY [id number] [place] [address] [facility] SOURCE OF OXYGEN Room Air Normal [facility] Comment on above: Performed By: #### L [id number] ####[facility] RESPIRATORY [id number] [place] [address] [facility] Base excess Calc (Bld) [Moles/Vol] -19.26973 mmol/L Low -2.0-3.0 [facility] Comment on above: Performed By: #### L [id number] ####[facility] RESPIRATORY [id number] [place] [address] [facility] CARBOXYHEMOGLOBIN/HEM OGLOBIN TOTAL % IN BLOOD 1.7 % Normal 0.0-3.0 [facility] Comment on above: Performed By: #### L [id number] ####[facility] RESPIRATORY [id number] [place] [address] [facility] CO2 (Bld) [Partial pressure] 27 mm[Hg] Low 35-48 [facility] Comment on above: Performed By: #### L [id number] ####[facility] RESPIRATORY [id number] [place] [address] [facility] DEOXYGENATED HEMOGLOBIN IN BLOOD 0.1 % Low 1-5 [facility] Comment on above: Performed By: #### L [id number] ####[facility] RESPIRATORY [id number] [place] [address] [facility] HCO3 (Bld) [Moles/Vol] 8.6 mmol/L Low 21.0-28.0 [facility] Comment on above: Performed By: #### L [id number] ####[facility] RESPIRATORY [id number] [place] [address] [facility] Hemoglobin (Bld) [Mass/Vol] 8.0 g/dL Low 11.7-17.4 [facility] Comment on above: Performed By: #### L [id number] ####[facility] RESPIRATORY [id number] [place] [address] [facility] METHEMOGLOBIN/100 IN BLOOD 0.2 % Normal 0.0-1.5 [facility] Comment on above: Performed By: #### L [id number] ####[facility] RESPIRATORY [id number] [place] [address] [facility] Oxygen (Bld) [Partial pressure] 266 mm[Hg] High 83-100 [facility] Comment on above: Performed By: #### L [id number] ####[facility] RESPIRATORY [id number] [address] OXYGEN SATURATION (%) IN ARTERIAL BLOOD 99.9 % High 94.0-98.0 [facility] Comment on above: Performed By: #### L [id number] ####[facility] RESPIRATORY [id number] [address] OXYGENATED HEMOGLOBIN IN BLOOD 98.0 % High 90.0-95.0 [facility] Comment on above: Performed By: #### L [id number] ####[facility] RESPIRATORY [id number] [place] [address] pH (Bld) 7.11 [pH] Invalid Interpretation Code 7.35-7.45 [facility] Comment on above: Performed By: #### L [id number] ####[facility] RESPIRATORY [id number] [place] [address] SOURCE OF OXYGEN Non-rebreather mask Normal [facility] Comment on above: Performed By: #### L [id number] ####[facility] RESPIRATORY [id number] [place] [address] ARTERIAL BLOOD GAS WITH IONI ZED CALCIUMon 11-15-2023 Base excess Calc (Bld) [Moles/Vol] -5.2000 mmol/L Low -2.0-3.0 [facility] Comment on above: Performed By: #### L [id number] ####[facility] RESPIRATORY [id number] [place] [address] CALCIUM IONIZED (MMOL/L) IN BLOOD 1.07 mmol/L Low 1.15-1.33 [facility] Comment on above: Performed By: #### L [id number] ####[facility] RESPIRATORY [id number] [place] [address] CO2 (Bld) [Partial pressure] 32 mm[Hg] Low 35-48 [facility] Comment on above: Performed By: #### L [id number] ####[facility] RESPIRATORY [id number] [place] [address] [facility] HCO3 (Bld) [Moles/Vol] 18.9 mmol/L Low 21.0-28.0 [facility] Comment on above: Performed By: #### L [id number] ####[facility] RESPIRATORY [id number] [place] [address] [place] Oxygen (Bld) [Partial pressure] 78 mm[Hg] Low 83-100 [facility] Comment on above: Performed By: #### L [id number] ####[facility] RESPIRATORY [id number] [place] [address] [facility] OXYGEN SATURATION (%) IN ARTERIAL BLOOD 98.2 % High 94.0-98.0 [facility] Comment on above: Performed By: #### L [id number] ####[facility] RESPIRATORY [id number] [place] [address] [facility] pH (Bld) 7.38 [pH] Normal 7.35-7.45 [facility] Comment on above: Performed By: #### L [id number] ####[facility] RESPIRATORY [id number] [place] [address] [facility] SOURCE OF OXYGEN Room Air Normal [facility] Comment on above: Performed By: #### L [id number] ####[facility] RESPIRATORY [id number] [place] [address] [facility] B-TYPE NATRIURETIC PEPTIDEon 11-15-2023 Natriuretic peptide B (Bld) [Mass/Vol] 165 pg/mL High 0-100 [facility] Comment on above: Performed By: #### L [id number] ####[facility] (BEAKER)[address] [place] [address] Natriuretic peptide B (Bld) [Mass/Vol] 175 pg/mL High 0-100 [facility] Comment on above: Performed By: #### L [id number] ####[facility] (BEAKER)[address] [place] [address] BASIC METABOLIC PANELon 07-0 Anion gap [Moles/Vol] 25 mmol/L High 7-20 [facility] Comment on above: Performed By: #### L [id number] ####[facility] [place] [address] Calcium [Mass/Vol] 7.4 mg/dL Low 8.6-10.3 [facility] Comment on above: Performed By: #### L [id number] ####[facility] [place] [address] Chloride [Moles/Vol] 108 mmol/L High 98-107 [facility] Comment on above: Performed By: #### L [id number] ####[facility] ([facility])[address] [place] [address] CO2 [Moles/Vol] 22 mmol/L Normal 21-31 [facility] Comment on above: Performed By: #### L [id number] ####[facility] ([facility])[address] [place] [address] Creatinine [Mass/Vol] 1.33 mg/dL High 0.60-1.20 [facility] Comment on above: Performed By: #### L [id number] ####[facility] ([facility])[address] [place] [address] GLOMERULAR FILTRATION RATE ML/MIN/1.73 SQ M.PREDICTED 40.7 mL/min/1.73m*2 Low >60.0 [facility] Comment on above: Result Comment: [facility] [place]s estimated glomerular filtration rate (eGFR) will no [...] of individuals. Performed By: #### L [id number] ####[facility] [place] [address] Glucose [Mass/Vol] 140 mg/dL High 70-100 [facility] Comment on above: Performed By: #### L [id number] ####[facility] (BEAKER)[address] [place] [address] Potassium [Moles/Vol] 3.4 mmol/L Low 3.5-5.1 [facility] Comment on above: Performed By: #### L [id number] ####[facility] [place] [address] Sodium [Moles/Vol] 152 mmol/L High 136-145 [facility] Comment on above: Performed By: #### L [id number] ####[facility] ([facility])[address] [place] [address] Urea nitrogen [Mass/Vol] 30 mg/dL High 7-25 [facility] [place] Comment on above: Performed By: #### L [id number] ####[facility] ([facility])[address] [place] [address] UREA NITROGEN/CREATININE (MASS RATIO) IN SER/PLAS 22.6 Normal [facility] [place] Comment on above: Performed By: #### L [id number] ####[facility] [place] [address] Anion gap [Moles/Vol] 28 mmol/L High 7-20 [facility] Comment on above: Performed By: #### L [id number] ####[facility] ([facility])[address] [place] [address] Calcium [Mass/Vol] 6.7 mg/dL Low 8.6-10.3 [facility] Comment on above: Performed By: #### L [id number] ####[facility] ([facility])[address] [place] [address] Chloride [Moles/Vol] 112 mmol/L High 98-107 [facility] Comment on above: Performed By: #### L [id number] ####[facility] [place] [address] CO2 [Moles/Vol] 10 mmol/L Invalid Interpretation Code [facility] Comment on above: Performed By: #### L [id number] ####[facility] ([facility])[address] [place] [address] Creatinine [Mass/Vol] 1.18 mg/dL Normal 0.60-1.20 [facility] Comment on above: Performed By: #### L [id number] ####[facility] ([facility])[address] [place] [address] GLOMERULAR FILTRATION RATE ML/MIN/1.73 SQ M.PREDICTED 47.0 mL/min/1.73m*2 Low >60.0 [facility] Comment on above: Result Comment: [facility] [place]???s estimated glomerular filtration rate (eGFR) will no [...] of individuals. Performed By: #### L [id number] ####[facility] ([facility])[address] [place] [address] Glucose [Mass/Vol] 239 mg/dL High 70-100 [facility] Comment on above: Performed By: #### L [id number] ####[facility] [place] [address] Potassium [Moles/Vol] 3.7 mmol/L Normal 3.5-5.1 [facility] Comment on above: Performed By: #### L [id number] ####[facility] [place] [address] Sodium [Moles/Vol] 146 mmol/L High 136-145 [facility] Comment on above: Performed By: #### L [id number] ####[facility] ([facility])[address] [place] [address] Urea nitrogen [Mass/Vol] 26 mg/dL High 7-25 [facility] [place] Comment on above: Performed By: #### L [id number] ####[facility] ([facility])[address] [place] [address] UREA NITROGEN/CREATININE (MASS RATIO) IN SER/PLAS 22.0 Normal [facility] Comment on above: Performed By: #### L [id number] ####[facility] ([facility])[address] [place] [address] Anion gap [Moles/Vol] 16 mmol/L Normal 7-20 [facility] Comment on above: Performed By: #### L [id number] ####[facility] ([facility])[address] [place] [address] Calcium [Mass/Vol] 7.2 mg/dL Low 8.6-10.3 [facility] Comment on above: Performed By: #### L [id number] ####[facility] ([facility])[address] [place] [address] Chloride [Moles/Vol] 113 mmol/L High 98-107 [facility] Comment on above: Performed By: #### L [id number] ####[facility] ([facility])[address] [place] [address] CO2 [Moles/Vol] 18 mmol/L Low 21-31 [facility] Comment on above: Performed By: #### L [id number] ####[facility] ([facility])[address] [place] [address] Creatinine [Mass/Vol] 1.00 mg/dL Normal 0.60-1.20 [facility] Comment on above: Performed By: #### L [id number] ####[facility] ([facility])[address] [place] [address] GLOMERULAR FILTRATION RATE ML/MIN/1.73 SQ M.PREDICTED 57.3 mL/min/1.73m*2 Low >60.0 [facility] Comment on above: Result Comment: [facility] [place]???s estimated glomerular filtration rate (eGFR) will no [...] of individuals. Performed By: #### L [id number] ####[facility] ([facility])[address] [facility] [place] [address] Glucose [Mass/Vol] 205 mg/dL High 70-100 [facility] Comment on above: Performed By: #### L [id number] ####[facility] ([facility])[address] [facility] [place] [address] Potassium [Moles/Vol] 3.9 mmol/L Normal 3.5-5.1 [facility] Comment on above: Performed By: #### L [id number] ####[facility] ([facility])[address] [facility] [address] Sodium [Moles/Vol] 143 mmol/L Normal 136-145 [facility] Comment on above: Performed By: #### L [id number] ####[facility] ([facility])[address] [facility] [place] [address] Urea nitrogen [Mass/Vol] 27 mg/dL High 7-25 [facility] [place] Comment on above: Performed By: #### L [id number] ####[facility] ([facility])[address] [facility] [place] [address] UREA NITROGEN/CREATININE (MASS RATIO) IN SER/PLAS 27.0 Normal [facility] [place] Comment on above: Performed By: #### L [id number] ####[facility] ([facility])[address] [place] [address] BETA HYDROXYBUTYRATEon 11-14 BETA HYDROXYBUTYRATE (MMOL/L) IN SER/PLAS 0.31 mmol/L High 0.02-0.27 [facility] Comment on above: Performed By: #### L [id number] ####[facility] ([facility])[address] [place] [address] BLOOD CULTUREon 11-15-2023 Bacteria identified Cx Nom (Bld) No growth at 5 days Normal [facility] Comment on above: Order Comment: From a different site than #1. Performed By: #### L [id number] ####[facility] ([facility]ER)[address] [place] [address] Bacteria identified Cx Nom (Bld) No growth at 5 days Normal [facility] Comment on above: Performed By: #### L [id number] ####[facility] ([facility])[address] [place] [address] CALCIUM, IONIZEDon CALCIUM IONIZED (MMOL/L) IN BLOOD 1.09 mmol/L Low 1.15-1.33 [facility] [place] Comment on above: Performed By: #### C ALCIUM, IONIZED ####[facility] [id number] [place] [address] [facility] CALCIUM IONIZED (MMOL/L) IN BLOOD 1.05 mmol/L Low 1.15-1.33 [facility] [place] Comment on above: Performed By: #### C ALCIUM, IONIZED ####[facility] [id number] [place] [address] [facility] CALCIUM IONIZED (MMOL/L) IN BLOOD 1.06 mmol/L Low 1.15-1.33 [facility] [place] Comment on above: Performed By: #### C ALCIUM, IONIZED ####[facility] [id number] [place] [address] [facility] CALCIUM IONIZED (MMOL/L) IN BLOOD 1.12 mmol/L Low 1.15-1.33 [facility] [place] Comment on above: Performed By: #### C ALCIUM, IONIZED ####[facility] [id number] [place] [address] [facility] CBCon 11-15-2023 Erythrocyte distribution width (RBC) [Ratio] 21.2 % High 11.5-15.0 [facility] Comment on above: Performed By: #### L [id number] ####[facility] ([facility]ER)[address] [place] [address] ERYTHROCYTE MEAN CORPUSCULAR HEMOGLOBIN CONCENTRATION (G/DL) BY AUTOMATED 33.3 g/dL Normal 32.0-35.0 [facility] [place] Comment on above: Performed By: #### L [id number] ####[facility] ([facility]ER)[address] [place] [address] Hematocrit (Bld) [Volume fraction] 21.9 % Low 36.0-48.0 [facility] [place] Comment on above: Performed By: #### L [id number] ####[facility] ([facility]ER)[address] [place] [address] Hemoglobin (Bld) [Mass/Vol] 7.3 g/dL Low 12.0-15.0 [facility] [place] Comment on above: Performed By: #### L [id number] ####[facility] ([facility]ER)[address] [place] [address] IMMATURE PLATELET FRACTION % 9.7 % High 0.8-6.3 [facility] [place] Comment on above: Performed By: #### L [id number] ####[facility] ([facility]ER)[address] [place] [address] MCH (RBC) [Entitic mass] 28.5 pg Normal 27.0-33.0 [facility] Comment on above: Performed By: #### L [id number] ####[facility] ([facility]ER)[address] [place] [address] MCV (RBC) [Entitic vol] 85.5 fL Normal 82.0-98.0 [facility] Comment on above: Performed By: #### L [id number] ####[facility] ([facility]ER)[address] [place] [address] PLATELETS (10*3/UL) IN BLOOD AUTOMATED COUNT 115 10*3/uL Low 150-400 [facility] Comment on above: Performed By: #### L [id number] ####[facility] ([facility])[address] [place] [address] RBC (Bld) [#/Vol] 2.56 10*6/uL Low 3.80-5.00 [facility] Comment on above: Performed By: #### L [id number] ####[facility] ([facility]ER)[address] [place] [address] WBC (Bld) [#/Vol] 34.01 10*3/uL High 4.00-10.60 [facility] Comment on above: Performed By: #### L [id number] ####[facility] ([facility])[address] [place] [address] Erythrocyte distribution width (RBC) [Ratio] 21.1 % High 11.5-15.0 [facility] [place] Comment on above: Performed By: #### L [id number] ####[facility] ([facility])[address] [place] [address] ERYTHROCYTE MEAN CORPUSCULAR HEMOGLOBIN CONCENTRATION (G/DL) BY AUTOMATED 32.2 g/dL Normal 32.0-35.0 [facility] [place] Comment on above: Performed By: #### L [id number] ####[facility] ([facility])[address] [place] [address] Hematocrit (Bld) [Volume fraction] 25.8 % Low 36.0-48.0 [facility] Comment on above: Result Comment: Pt i s in surgery on 11/15/23 Performed By: #### L [id number] ####[facility] ([facility])[address] [place] [address] Hemoglobin (Bld) [Mass/Vol] 8.3 g/dL Low 12.0-15.0 [facility] [place] Comment on above: Performed By: #### L [id number] ####[facility] ([facility])[address] [place] [address] MCH (RBC) [Entitic mass] 27.9 pg Normal 27.0-33.0 [facility] [place] Comment on above: Performed By: #### L [id number] ####[facility] [place] [address] MCV (RBC) [Entitic vol] 86.6 fL Normal 82.0-98.0 [facility] [place] Comment on above: Performed By: #### L [id number] ####[facility] [place] [address] PLATELETS (10*3/UL) IN BLOOD AUTOMATED COUNT 238 10*3/uL Normal 150-400 [facility] [place] Comment on above: Performed By: #### L [id number] ####[facility] [place] [address] RBC (Bld) [#/Vol] 2.98 10*6/uL Low 3.80-5.00 [facility] Comment on above: Performed By: #### L [id number] ####[facility] [place] [address] WBC (Bld) [#/Vol] 16.89 10*3/uL High 4.00-10.60 [facility] Comment on above: Performed By: #### L [id number] ####[facility] [place] [address] CBC WITH AUTO DIFFERENTIALon 11-15-2023 Erythrocyte distribution width (RBC) [Ratio] 20.5 % High 11.5-15.0 [facility] Comment on above: Performed By: #### L [id number] ####[facility] ([facility]ER)[address] [place] [address] ERYTHROCYTE MEAN CORPUSCULAR HEMOGLOBIN CONCENTRATION (G/DL) BY AUTOMATED 30.3 g/dL Low 32.0-35.0 [facility] Comment on above: Performed By: #### L [id number] ####[facility] ([facility]ER)[address] [place] [address] Hematocrit (Bld) [Volume fraction] 32.0 % Low 36.0-48.0 [facility] Comment on above: Performed By: #### L [id number] ####[facility] ([facility]ER)[address] [place] [address] Hemoglobin (Bld) [Mass/Vol] 9.7 g/dL Low 12.0-15.0 [facility] Comment on above: Performed By: #### L [id number] ####[facility] ([facility]ER)[address] [place] [address] MCH (RBC) [Entitic mass] 27.6 pg Normal 27.0-33.0 [facility] Comment on above: Performed By: #### L [id number] ####[facility] ([facility]ER)[address] [place] [address] MCV (RBC) [Entitic vol] 90.9 fL Normal 82.0-98.0 [facility] Comment on above: Performed By: #### L [id number] ####[facility] [place] [address] NRBC (PER 100 WBCS) BY AUTOMATED COUNT 0.5 % High 0 [facility] Comment on above: Performed By: #### L [id number] ####[facility] ([facility])[address] [place] [address] PLATELETS (10*3/UL) IN BLOOD AUTOMATED COUNT 207 10*3/uL Normal 150-400 [facility] Comment on above: Performed By: #### L [id number] ####[facility] ([facility])[address] [place] [address] RBC (Bld) [#/Vol] 3.52 10*6/uL Low 3.80-5.00 [facility] Comment on above: Performed By: #### L [id number] ####[facility] ([facility]ER)[address] [place] [address] WBC (Bld) [#/Vol] 34.34 10*3/uL High 4.00-10.60 [facility] Comment on above: Performed By: #### L [id number] ####[facility] ([facility])[address] [place] [address] CLOSTRIDIOIDES DIFFICILE DNA AMPLIFICATIONon 11-15-2023 CLOSTRIDIOIDES DIFFICILE (TOXIN A/B) Negative Normal Negative [facility] Comment on above: Order Comment: Testi ng [...] A gene sequence. Performed By: #### L [id number] ####[facility] ([facility])[address] [place] [address] CONSULTon 11-15-2023 CONSULT Normal [facility] HEPATIC FUNCTION PANELon Albumin [Mass/Vol] 2.1 g/dL Low 3.5-5.7 [facility] Comment on above: Performed By: #### L [id number] ####[facility] ([facility])[address] [place] [address] ALP [Catalytic activity/Vol] 65 U/L Normal 34-104 [facility] Comment on above: Performed By: #### L [id number] ####[facility] ([facility])[address] [place] [address] ALT [Catalytic activity/Vol] 647 U/L High 7-52 [facility] Comment on above: Performed By: #### L [id number] ####[facility] ([facility])[address] [place] [address] AST [Catalytic activity/Vol] 1580 U/L High 13-39 [facility] Comment on above: Performed By: #### L [id number] ####[facility] ([facility])[address] [place] [address] Bilirubin [Mass/Vol] 1.0 mg/dL Normal 0.3-1.0 [facility] Comment on above: Performed By: #### L [id number] ####[facility] ([facility])[address] [place] [address] Magnesium [Mass/Vol] 0.5 mg/dL High 0-0.2 [facility] Comment on above: Performed By: #### L [id number] ####[facility] ([facility])[address] [place] [address] Protein [Mass/Vol] 3.2 g/dL Low 6.0-8.3 [facility] Comment on above: Performed By: #### L [id number] ####[facility] ([facility])[address] [place] [address] LACTIC ACID WITH 4 HOUR REFL EXon 11-15-2023 LACTATE (MMOL/L) IN SER/PLAS 13.2 mmol/L Critically high 0.5-2.2 [facility] Comment on above: Result Comment: M-UT EVIOUS CRITICAL RESULTPrevious result verified on 11/15/2023 1231 on specimen/case [id number] called with component Lactate for procedure Lactic acid, plasma with value 16.9 mmol/L. Performed By: #### L [id number] ####[facility] ([facility])[address] [place] [address] LACTIC ACID, PLASMAon 2023 LACTATE (MMOL/L) IN SER/PLAS 16.9 mmol/L Critically high 0.5-2.2 [facility] Comment on above: Result Comment: Prev ious result verified on 11/15/2023 1055 on specimen/case [id number] called with component Lactate for procedure Lactic acid, plasma with value 17.0 mmol/L. Performed By: #### L [id number] ####[facility] ([facility])[address] [place] [address] LACTATE (MMOL/L) IN SER/PLAS 17.0 mmol/L Critically high 0.5-2.2 [facility] Comment on above: Performed By: #### L [id number] ####[facility] ([facility])[address] [place] [address] MAGNESIUMon 11-15-2023 Magnesium [Mass/Vol] 2.5 mg/dL Normal 1.9-2.7 [facility] Comment on above: Performed By: #### L [id number] ####[facility] ([facility])[address] [place], [place] [address] Magnesium [Mass/Vol] 1.6 mg/dL Low 1.9-2.7 [facility] Comment on above: Performed By: #### L [id number] ####[facility] ([facility])[address] [place] [address] MANUAL DIFFERENTIALon 2023 ANISOCYTOSIS PRESENCE IN BLOOD BY LIGHT MICROSCOPY Moderate Normal [facility] Comment on above: Performed By: #### L [id number] ####[facility] ([facility])[address] [place] [address] BASOPHILS (10*3/UL) IN BLOOD BY CALCULATION 0.00 10*3/uL Normal 0.00-0.20 [facility] Comment on above: Performed By: #### L [id number] ####[facility] ([facility])[address] [place] [address] BASOPHILS/100 LEUKOCYTES IN BLOOD BY AUTOMATED COUNT 0.0 % Normal 0.0-1.0 [facility] Comment on above: Performed By: #### L [id number] ####[facility] ([facility])[address] [place] [address] EOSINOPHILS (10*3/UL) IN BLOOD BY CALCULATION 0.00 10*3/uL Normal 0.00-0.50 [facility] Comment on above: Performed By: #### L [id number] ####[facility] ([facility])[address] [place] [address] EOSINOPHILS/100 LEUKOCYTES IN BLOOD BY AUTOMATED COUNT 0.0 % Normal 0.0-6.0 [facility] Comment on above: Performed By: #### L [id number] ####[facility] ([facility])[address] [place] [address] LYMPHOCYTES (10*3/UL) IN BLOOD BY CALCULATION 2.51 10*3/uL Normal 1.20-4.00 [facility] Comment on above: Performed By: #### L [id number] ####[facility] ([facility])[address] [place] [address] LYMPHOCYTES/100 LEUKOCYTES IN BLOOD BY AUTOMATED COUNT 7.3 % Low 20.0-45.0 [facility] Comment on above: Performed By: #### L [id number] ####[facility] ([facility])[address] [place] [address] MONOCYTES (10*3/UL) IN BLOOD BY CALCUATION 0.93 10*3/uL Normal 0.10-1.00 [facility] Comment on above: Performed By: #### L [id number] ####[facility] ([facility])[address] [place] [address] MONOCYTES/100 LEUKOCYTES IN BLOOD BY AUTOMATED COUNT 2.7 % Low 5.0-12.0 [facility] Comment on above: Performed By: #### L [id number] ####[facility] ([facility])[address] [place], [place] [address] MYELOCYTES (10*3/UL) IN BLOOD BY CALCULATION 0.93 10*3/uL High 0.00 [facility] Comment on above: Performed By: #### L [id number] ####[facility] ([facility])[address] [place], [place] [address] MYELOCYTES/100 LEUKOCYTES IN BLOOD CELLAVISION 2.7 % High 0.0-0.0 [facility] Comment on above: Performed By: #### L [id number] ####[facility] ([facility])[address] [place], [place] [address] NEUTROPHILS (10*3/UL) IN BLOOD BY CALCULATION 30.0 10*3/uL High 1.6-7.6 [facility] Comment on above: Performed By: #### L [id number] ####[facility] ([facility])[address] [place] [address] NEUTROPHILS/100 LEUKOCYTES IN BLOOD BY AUTOMATED COUNT 87.3 % High 40.0-72.0 [facility] Comment on above: Performed By: #### L [id number] ####[facility] ([facility])[address] [place] [address] PLASMA CELLS/100 LEUKOCYTES IN BLOOD 0 % Normal 0 [facility] Comment on above: Performed By: #### L [id number] ####[facility] ([facility])[address] [place] [address] PLATELETS GIANT PRESENCE IN BLOOD BY LIGHT MICROSCOPY Present Normal [facility] Comment on above: Performed By: #### L [id number] ####[facility] ([facility])[address] [place] [address] POIKILOCYTOSIS (PRESENCE) IN BLOOD BY LIGHT MICROSCOPY Slight Normal [facility] Comment on above: Performed By: #### L [id number] ####[facility] ([facility])[address] [place] [address] POLYCHROMASIA IN BLOOD BY LIGHT MICROSCOPY Slight Normal [facility] Comment on above: Performed By: #### L [id number] ####[facility] ([facility])[address] [place] [address] SMUDGE CELLS/100 LEUKOCYTES IN BLOOD CELLAVISION Present Normal [facility] Comment on above: Performed By: #### L [id number] ####[facility] ([facility])[address] [place] [address] VARIANT LYMPHOCYTES (10*3/UL) IN BLOOD BY CALCULATION 0.00 10*3/uL Normal 0.00 [facility] Comment on above: Performed By: #### L [id number] ####[facility] ([facility])[address] [place] [address] VARIANT LYMPHOCYTES/100 LEUKOCYTES IN BLOOD CELLAVISION 0.0 % Normal 0.0-0.0 [facility] Comment on above: Performed By: #### L [id number] ####[facility] ([facility])[address] [place] [address] NURSNOTEon 11-15-2023 NURSNOTE Normal [facility] NURSNOTE Normal [facility] PHOSPHORUSon 11-15-2023 Magnesium [Mass/Vol] 8.6 mg/dL High 2.5-5.0 [facility] Comment on above: Performed By: #### L [id number] ####[facility] ([facility])[address] [place] [address] Magnesium [Mass/Vol] 6.0 mg/dL High 2.5-5.0 [facility] Comment on above: Performed By: #### L [id number] ####[facility] ([facility])[address] [place] [address] POCT GLUCOSE METER UNSOLICIT ED RESULTSon 11-15-2023 Glucose [Mass/Vol] 165 mg/dL High 70-105 [facility] Comment on above: Order Comment: Waive d Testing in the ED is performed under the ED CLIA certificate #[id number]. Result Comment: [email or web address] Performed By: #### L [id number] ####[facility] ([facility])[address] [place] [address] Glucose [Mass/Vol] 208 mg/dL High 70-105 [facility] Comment on above: Order Comment: Waive d Testing in the ED is performed under the ED CLIA certificate #[id number]. Result Comment: mmcc vargas Performed By: #### L [id number] ####[facility] ([facility])[address] [place] [address] POCT PERFUSION PANEL UNSOLIC ITED RESULTSon 11-15-2023 CO2 [Moles/Vol] 20.0 mmol/L Low 21.0-29.0 [facility] Comment on above: Performed By: #### L [id number] ####[facility] ([facility])[address] [place] [address] Glucose [Mass/Vol] 210 mg/dL High 70-105 [facility] Comment on above: Performed By: #### L [id number] ####[facility] (BEAKER)[address] [place] [address] HCO3 (Bld) [Moles/Vol] 18.9 mmol/L Low 23.0-28.0 [facility] Comment on above: Performed By: #### L [id number] ####[facility] [address] Hematocrit (Bld) [Volume fraction] 26 % Low 38-51 [facility] Comment on above: Performed By: #### L [id number] ####[facility] [address] Hemoglobin (Bld) [Mass/Vol] 8.8 g/dL Low 12.0-17.0 [facility] Comment on above: Performed By: #### L [id number] ####[facility] ([facility] [place] [address] POCT BASE EXCESS -7.0 mmol/L Low -2.0-3.0 [facility] Comment on above: Performed By: #### L [id number] ####[facility] ([facility] [place] [address] POCT IONIZED CALCIUM 1.15 mmol/L Normal 1.12-1.32 [facility] Comment on above: Performed By: #### L [id number] ####[facility] ([facility]ER)[address] [place] [address] POCT PCO2 39.7 mmHg Low 41.0-51.0 [facility] Comment on above: Performed By: #### L [id number] ####[facility] (BEAKER)[address] [place] [address] POCT PH 7.29 Low 7.31-7.41 [facility] Comment on above: Performed By: #### L [id number] ####[facility] ([facility])[address] [place] [address] POCT PO2 68 mmHg Low 80-105 [facility] Comment on above: Performed By: #### L [id number] ####[facility] ([facility])[address] [place] [address] POCT SO2 91 % Low 95-98 [facility] Comment on above: Performed By: #### L [id number] ####[facility] ([facility])[address] [place] [address] Potassium [Moles/Vol] 3.8 mmol/L Normal 3.5-4.9 [facility] Comment on above: Performed By: #### L [id number] ####[facility] ([facility])[address] [place] [address] Sodium [Moles/Vol] 142 mmol/L Normal 138.0-146.0 [facility] Comment on above: Performed By: #### L [id number] ####[facility] ([facility])[address] [place] [address] POTASSIUM, WHOLE BLOODon Potassium [Moles/Vol] 3.1 mmol/L Low 3.5-5.1 [facility] Comment on above: Performed By: #### P OTASSIUM, WHOLE BLOOD ####[facility] [id number] [place] [address] [place] Potassium [Moles/Vol] 3.9 mmol/L Normal 3.5-5.1 [facility] Comment on above: Performed By: #### P OTASSIUM, WHOLE BLOOD ####[facility] [id number] [place] [address] [place] Potassium [Moles/Vol] 3.8 mmol/L Normal 3.5-5.1 [facility] Comment on above: Performed By: #### P OTASSIUM, WHOLE BLOOD ####[facility] [id number] [place] [address] [place] Potassium [Moles/Vol] 5.1 mmol/L Normal 3.5-5.1 [facility] Comment on above: Performed By: #### P OTASSIUM, WHOLE BLOOD ####[facility] [id number] [place] [address] [place] PROTIME-INRon 11-15-2023 INR IN PPP BY COAGULATION ASSAY 11.87 Critically high 0.90-1.10 [facility] Comment on above: Result Comment: [facility] P RECOMMENDED INR FOR WARFARIN THERAPY CONDITION INRPROPHYLAXIS OF VENOUS THROMBOSIS 2-3(HIGH-RISK SURGERY)TREATMENT OF VENOUS THROMBOSIS 2-3TREATMENT OF PULMONARY EMBOLISM 2-3PREVENTION OF SYSTEMIC EMBOLISM: 2-3 ACUTE MYOCARDIAL INFARCTION TISSUE HEART VALVES VALVULAR HEART DISEASE ATRIAL FIBRILLATION RECURRENT SYSTEMIC EMBOLISMMECHANICAL HEART VALVE 2.5-3.5 FROM: ORAL ANTICOAGULANTS. MECHANISM OF ACTION, CLINICAL EFFECTIVENESS, AND OPTIMAL THERAPEUTIC RANGE. CHEST 1995;108:231S-246S. Performed By: #### L [id number] ####[facility] (BEAKER)[address] [place] [address] PROTHROMBIN TIME (PT) IN PPP BY COAGULATION ASSAY 92.6 Seconds Critically high 12.3-14.8 [facility] Comment on above: Performed By: #### L [id number] ####[facility] (BEAKER)[address] [place] [address] INR IN PPP BY COAGULATION ASSAY 12.96 Critically high 0.90-1.10 [facility] Comment on above: Result Comment: [facility] P RECOMMENDED INR FOR WARFARIN THERAPY CONDITION INRPROPHYLAXIS OF VENOUS THROMBOSIS 2-3(HIGH-RISK SURGERY)TREATMENT OF VENOUS THROMBOSIS 2-3TREATMENT OF PULMONARY EMBOLISM 2-3PREVENTION OF SYSTEMIC EMBOLISM: 2-3 ACUTE MYOCARDIAL INFARCTION TISSUE HEART VALVES VALVULAR HEART DISEASE ATRIAL FIBRILLATION RECURRENT SYSTEMIC EMBOLISMMECHANICAL HEART VALVE 2.5-3.5 FROM: ORAL ANTICOAGULANTS. MECHANISM OF ACTION, CLINICAL EFFECTIVENESS, AND OPTIMAL THERAPEUTIC RANGE. CHEST 1995;108:231S-246S. Performed By: #### L [id number] ####[facility] (BEAKER)[address] [place] [address] PROTHROMBIN TIME (PT) IN PPP BY COAGULATION ASSAY 99.2 Seconds Critically high 12.3-14.8 [facility] Comment on above: Performed By: #### L [id number] ####[facility] (BEAKER)[address] [place] [address] SODIUM, WHOLE BLOODon 2023 SODIUM, WHOLE BLOOD 143 Normal 136-145 [facility] Comment on above: Performed By: #### S ODIUM, WHOLE BLOOD ####[facility] [id number] [place] [address] [place] SODIUM, WHOLE BLOOD 142 Normal 136-145 [facility] Comment on above: Performed By: #### S ODIUM, WHOLE BLOOD ####[facility] [id number] [place] [address] [facility] SODIUM, WHOLE BLOOD 140 Normal 136-145 [facility] Comment on above: Performed By: #### S ODIUM, WHOLE BLOOD ####[facility] [id number] [place] [address] [facility] SODIUM, WHOLE BLOOD 138 Normal 136-145 [facility] Comment on above: Performed By: #### S ODIUM, WHOLE BLOOD ####[facility] [id number] [place] [address] [place] TROPONIN Ion 11-15-2023 Troponin I.cardiac [Mass/Vol] 0.10 ng/mL High 0.00-0.04 [facility] Comment on above: Performed By: #### L [id number] ####[facility] ([facility])[address] [place] [address] VANCOMYCIN, PEAKon VANCOMYCIN (UG/ML) IN SER/PLAS - PEAK 21.0 ug/mL Normal 20.0-50.0 [facility] Comment on above: Performed By: #### L [id number] ####[facility] ([facility])[address] [place] [address] VITAMIN D 25 HYDROXYon 11-14 CALCIDIOL (25 [place] VITAMIN D3) (NG/ML) IN SER/PLAS 26.1 ng/mL Low 30.0-80.0 [facility] Comment on above: Result Comment: >80. 0 Toxicity possible Performed By: #### L [id number] ####[facility] ([facility])[address] [place] [address] 30on 11-14-2023 30 Normal [facility] 30 Normal [facility] ANESon 11-14-2023 ANES Normal [facility] ARTERIAL BLOOD GAS WITH CO-O XIMETRYon 11-14-2023 Base excess Calc (Bld) [Moles/Vol] 2.2 mmol/L Normal -2.0-3.0 [facility] Comment on above: Order Comment: Pt in tubated in OR Performed By: #### L [id number] ####[facility] [id number] [place] [address] [facility] CARBOXYHEMOGLOBIN/HEM OGLOBIN TOTAL % IN BLOOD 1.5 % Normal 0.0-3.0 [facility] Comment on above: Order Comment: Pt in tubated in OR Performed By: #### L [id number] ####[facility] [id number] [place] [address] [facility] CO2 (Bld) [Partial pressure] 39 mm[Hg] Normal 35-48 [facility] Comment on above: Order Comment: Pt in tubated in [place] Performed By: #### L [id number] ####[facility] [id number] [place] [address] [facility] DEOXYGENATED HEMOGLOBIN IN BLOOD 0.9 % Low 1-5 [facility] Comment on above: Order Comment: Pt in tubated in [place] Performed By: #### L [id number] ####[facility] [id number] [place] [address] [facility] HCO3 (Bld) [Moles/Vol] 26.5 mmol/L Normal 21.0-28.0 [facility] Comment on above: Order Comment: Pt in tubated in [place] Performed By: #### L [id number] ####[facility] [id number] [place] [address] [facility] Hemoglobin (Bld) [Mass/Vol] 9.0 g/dL Low 11.7-17.4 [facility] Comment on above: Order Comment: Pt in tubated in [place] Performed By: #### L [id number] ####[facility] [id number] [place] [address] [facility] METHEMOGLOBIN/100 IN BLOOD 0.2 % Normal 0.0-1.5 [facility] Comment on above: Order Comment: Pt in tubated in [place] Performed By: #### L [id number] ####[facility] [id number] [place] [address] [facility] Oxygen (Bld) [Partial pressure] 125 mm[Hg] High 83-100 [facility] Comment on above: Order Comment: Pt in tubated in [place] Performed By: #### L [id number] ####[facility] [id number] [place] [address] [facility] OXYGEN SATURATION (%) IN ARTERIAL BLOOD 99.1 % High 94.0-98.0 [facility] Comment on above: Order Comment: Pt in tubated in [place] Performed By: #### L [id number] ####[facility] [id number] [place] [address] [facility] OXYGENATED HEMOGLOBIN IN BLOOD 97.4 % High 90.0-95.0 [facility] Comment on above: Order Comment: Pt in tubated in [place] Performed By: #### L [id number] ####[facility] [id number] [place] [address] [facility] pH (Bld) 7.44 [pH] Normal 7.35-7.45 [facility] Comment on above: Order Comment: Pt in tubated in [place] Performed By: #### L [id number] ####[facility] [id number] [place] [address] [facility] SOURCE OF OXYGEN Vent Normal [facility] Comment on above: Order Comment: Pt in tubated in [place] Performed By: #### L [id number] ####[facility] [id number] [address] [address] [facility] Base excess Calc (Bld) [Moles/Vol] 7.0 mmol/L High -2.0-3.0 [facility] Comment on above: Performed By: #### L [id number] ####[facility] [id number] [place] [address] [facility] CARBOXYHEMOGLOBIN/HEM OGLOBIN TOTAL % IN BLOOD 1.4 % Normal 0.0-3.0 [facility] Comment on above: Performed By: #### L [id number] ####[facility] [id number] [address] [facility] CO2 (Bld) [Partial pressure] 33 mm[Hg] Low 35-48 [facility] Comment on above: Performed By: #### L [id number] ####[facility] [id number] [address] [address] [facility] DEOXYGENATED HEMOGLOBIN IN BLOOD 1.2 % Normal 1-5 [facility] Comment on above: Performed By: #### L [id number] ####[facility] [id number] [place] [address] [facility] HCO3 (Bld) [Moles/Vol] 29.5 mmol/L High 21.0-28.0 [facility] Comment on above: Performed By: #### L [id number] ####[facility] [id number] [place] [address] [facility] Hemoglobin (Bld) [Mass/Vol] 9.7 g/dL Low 11.7-17.4 [facility] Comment on above: Performed By: #### L [id number] ####[facility] [id number] [place] [address] [facility] METHEMOGLOBIN/100 IN BLOOD 0.7 % Normal 0.0-1.5 [facility] Comment on above: Performed By: #### L [id number] ####[facility] [id number] [place] [address] [facility] Oxygen (Bld) [Partial pressure] 135 mm[Hg] High 83-100 [facility] Comment on above: Performed By: #### L [id number] ####[facility] [id number] [place] [address] [facility] OXYGEN SATURATION (%) IN ARTERIAL BLOOD 98.8 % High 94.0-98.0 [facility] Comment on above: Performed By: #### L [id number] ####[facility] [id number] [place] [address] [facility] OXYGENATED HEMOGLOBIN IN BLOOD 96.7 % High 90.0-95.0 [facility] Comment on above: Performed By: #### L [id number] ####[facility] [id number] [place] [address] [facility] pH (Bld) 7.56 [pH] Critically high 7.35-7.45 [facility] Comment on above: Performed By: #### L [id number] ####[facility] [id number] [place] [address] [facility] SOURCE OF OXYGEN Vent Normal [facility] Comment on above: Performed By: #### L [id number] ####[facility] [id number] [place] [address] [facility] BASIC METABOLIC PANELon 07-0 Anion gap [Moles/Vol] 12 mmol/L Normal 7-20 [facility] Comment on above: Performed By: #### L [id number] ####[facility] ([facility])[address] [place] [address] Calcium [Mass/Vol] 7.4 mg/dL Low 8.6-10.3 [facility] Comment on above: Performed By: #### L [id number] ####[facility] ([facility])[address] [place] [address] Chloride [Moles/Vol] 105 mmol/L Normal 98-107 [facility] Comment on above: Performed By: #### L [id number] ####[facility] ([facility])[address] [place] [address] CO2 [Moles/Vol] 31 mmol/L Normal 21-31 [facility] Comment on above: Performed By: #### L [id number] ####[facility] ([facility])[address] [place] [address] Creatinine [Mass/Vol] 0.91 mg/dL Normal 0.60-1.20 [facility] Comment on above: Performed By: #### L [id number] ####[facility] ([facility])[address] [place] [address] GLOMERULAR FILTRATION RATE ML/MIN/1.73 SQ M.PREDICTED 64.2 mL/min/1.73m*2 Normal >60.0 [facility] Comment on above: Result Comment: [facility]???s estimated glomerular filtration rate (eGFR) will no [...] of individuals. Performed By: #### L [id number] ####[facility] [place] [address] Glucose [Mass/Vol] 120 mg/dL High 70-100 [facility] Comment on above: Performed By: #### L [id number] ####[facility] [place] [address] Potassium [Moles/Vol] 4.1 mmol/L Normal 3.5-5.1 [facility] Comment on above: Performed By: #### L [id number] ####[facility] ([facility])[address] [place] [address] Sodium [Moles/Vol] 144 mmol/L Normal 136-145 [facility] Comment on above: Performed By: #### L [id number] ####[facility] ([facility])[address] [place] [address] Urea nitrogen [Mass/Vol] 24 mg/dL Normal 7-25 [facility] Comment on above: Performed By: #### L [id number] ####[facility] ([facility])[address] [place] [address] UREA NITROGEN/CREATININE (MASS RATIO) IN SER/PLAS 26.4 Normal [facility] Comment on above: Performed By: #### L [id number] ####[facility] ([facility])[address] [place] [address] CALCIUM, IONIZEDon CALCIUM IONIZED (MMOL/L) IN BLOOD 1.17 mmol/L Normal 1.15-1.33 [facility] Comment on above: Performed By: #### C ALCIUM, IONIZED ####[facility] [id number] [place] [address] [place] CBC WITH AUTO DIFFERENTIALon 11-14-2023 Basophils (Bld) [#/Vol] 0.03 10*3/uL Normal 0.00-0.20 [facility] Comment on above: Performed By: #### L [id number] ####[facility] ([facility] [place] [address] Basophils/100 WBC (Bld) 0.4 % Normal 0.0-1.0 [facility] Comment on above: Performed By: #### L [id number] ####[facility] (BEAKER)[address] [place] [address] Eosinophils (Bld) [#/Vol] 0.00 10*3/uL Normal 0.00-0.50 [facility] Comment on above: Performed By: #### L [id number] ####[facility] (BEAKER)[address] [place] [address] Eosinophils/100 WBC (Bld) 0.0 % Normal 0.0-6.0 [facility] Comment on above: Performed By: #### L [id number] ####[facility] (BEAKER)[address] [place] [address] Erythrocyte distribution width (RBC) [Ratio] 16.0 % High 11.5-15.0 [facility] Comment on above: Performed By: #### L [id number] ####[facility] ([facility] [place] [address] ERYTHROCYTE MEAN CORPUSCULAR HEMOGLOBIN CONCENTRATION (G/DL) BY AUTOMATED 30.2 g/dL Low 32.0-35.0 [facility] Comment on above: Performed By: #### L [id number] ####[facility] (BEAKER)[address] [place] [address] Hematocrit (Bld) [Volume fraction] 32.1 % Low 36.0-48.0 [facility] Comment on above: Performed By: #### L [id number] ####[facility] (BEAKER)[address] [place] [address] Hemoglobin (Bld) [Mass/Vol] 9.7 g/dL Low 12.0-15.0 [facility] Comment on above: Performed By: #### L [id number] ####[facility] (BEAKER)[address] [place] [address] Immature granulocytes (Bld) [#/Vol] 0.07 10*3/uL Normal 0.00-0.20 [facility] Comment on above: Performed By: #### L [id number] ####[facility] ([facility])[address] [place] [address] Immature granulocytes/100 WBC (Bld) 0.8 % Normal 0.0-1.0 [facility] Comment on above: Performed By: #### L [id number] ####[facility] ([facility])[address] [place] [address] Lymphocytes (Bld) [#/Vol] 1.34 10*3/uL Normal 1.20-4.00 [facility] Comment on above: Performed By: #### L [id number] ####[facility] ([facility])[address] [place] [address] Lymphocytes/100 WBC (Bld) 15.9 % Low 20.0-45.0 [facility] Comment on above: Performed By: #### L [id number] ####[facility] ([facility])[address] [place] [address] MCH (RBC) [Entitic mass] 29.1 pg Normal 27.0-33.0 [facility] Comment on above: Performed By: #### L [id number] ####[facility] ([facility])[address] [place] [address] MCV (RBC) [Entitic vol] 96.4 fL Normal 82.0-98.0 [facility] Comment on above: Performed By: #### L [id number] ####[facility] [place] [address] Monocytes (Bld) [#/Vol] 0.77 10*3/uL Normal 0.10-1.00 [facility] Comment on above: Performed By: #### L [id number] ####[facility] [place] [address] Monocytes/100 WBC (Bld) 9.1 % Normal 5.0-12.0 [facility] Comment on above: Performed By: #### L [id number] ####[facility] [place] [address] Neutrophils (Bld) [#/Vol] 6.22 10*3/uL Normal 1.60-7.60 [facility] Comment on above: Performed By: #### L [id number] ####[facility] [place] [address] Neutrophils/100 WBC (Bld) 73.8 % High 40.0-72.0 [facility] Comment on above: Performed By: #### L [id number] ####[facility] ([facility])[address] [place] [address] NRBC (PER 100 WBCS) BY AUTOMATED COUNT 0.0 % Normal 0 [facility] Comment on above: Performed By: #### L [id number] ####[facility] ([facility])[address] [place] [address] PLATELETS (10*3/UL) IN BLOOD AUTOMATED COUNT 223 10*3/uL Normal 150-400 [facility] Comment on above: Performed By: #### L [id number] ####[facility] ([facility])[address] [place] [address] RBC (Bld) [#/Vol] 3.33 10*6/uL Low 3.80-5.00 [facility] Comment on above: Performed By: #### L [id number] ####[facility] ([facility])[address] [place] [address] WBC (Bld) [#/Vol] 8.43 10*3/uL Normal 4.00-10.60 [facility] Comment on above: Performed By: #### L [id number] ####[facility] ([facility])[address] [place] [address] CONSULTon 11-14-2023 CONSULT Normal [facility] HPon 11-14-2023 HP Normal [facility] MAGNESIUMon 11-14-2023 Magnesium [Mass/Vol] 1.7 mg/dL Low 1.9-2.7 [facility] Comment on above: Performed By: #### L [id number] ####[facility] ([facility])[address] [place] [address] OPNOTEon 11-14-2023 OPNOTE Normal [facility] PHOSPHORUSon 11-14-2023 Magnesium [Mass/Vol] 4.5 mg/dL Normal 2.5-5.0 [facility] Comment on above: Performed By: #### L [id number] ####[facility] ([facility])[address] [place] [address] POCT GLUCOSE METER UNSOLICIT ED RESULTSon 11-14-2023 Glucose [Mass/Vol] 181 mg/dL High 70-105 [facility] Comment on above: Order Comment: Waive d Testing in the ED is performed under the ED CLIA certificate #[id number]. Result Comment: czyd orc Performed By: #### L [id number] ####[facility] ([facility])[address] [place] [address] Glucose [Mass/Vol] 120 mg/dL High 70-105 [facility] Comment on above: Order Comment: Waive d Testing in the ED is performed under the ED CLIA certificate #[id number]. Result Comment: epaw low Performed By: #### L [id number] ####[facility] ([facility])[address] [place] [address] Glucose [Mass/Vol] 113 mg/dL High 70-105 [facility] Comment on above: Order Comment: Waive d Testing in the ED is performed under the ED CLIA certificate #[id number]. Result Comment: epoo le6 Performed By: #### L [id number] ####[facility] ([facility])[address] [place] [address] Glucose [Mass/Vol] 131 mg/dL High 70-105 [facility] Comment on above: Order Comment: Waive d Testing in the ED is performed under the ED CLIA certificate #[id number]. Result Comment: lzwo judith Performed By: #### L [id number] ####[facility] ([facility])[address] [place] [address] Glucose [Mass/Vol] 111 mg/dL High 70-105 [facility] Comment on above: Order Comment: Waive d Testing in the ED is performed under the ED CLIA certificate #[id number]. Result Comment: lzwo judith Performed By: #### L [id number] ####[facility] ([facility])[address] [place] [address] POTASSIUM, WHOLE BLOODon Potassium [Moles/Vol] 4.0 mmol/L Normal 3.5-5.1 [facility] Comment on above: Performed By: #### P OTASSIUM, WHOLE BLOOD ####[facility] [id number] [place] [address] [facility] SODIUM, WHOLE BLOODon 2023 SODIUM, WHOLE BLOOD 139 Normal 136-145 [facility] Comment on above: Performed By: #### S ODIUM, WHOLE BLOOD ####[facility] [id number] [place] [address] [facility] APTTon 11-13-2023 ACTIVATED PARTIAL THROMBOPLASTIN TIME IN PPP BY COAGULATION ASSAY 34.0 Seconds Normal 25.0-35.0 [facility] [facility] Comment on above: Result Comment: Clin ical significance of the APTT is questionable in the presence of heparin. Performed By: #### L [id number] ####[facility] ([facility])[address] [place] [address] BASIC METABOLIC PANELon Anion gap [Moles/Vol] 16 mmol/L Normal 7-20 [facility] Comment on above: Performed By: #### L [id number] ####[facility] ([facility])[address] [place] [address] Calcium [Mass/Vol] 7.8 mg/dL Low 8.6-10.3 [facility] Comment on above: Performed By: #### L [id number] ####[facility] [place] [address] Chloride [Moles/Vol] 104 mmol/L Normal 98-107 [facility] Comment on above: Performed By: #### L [id number] ####[facility] [place] [address] CO2 [Moles/Vol] 27 mmol/L Normal 21-31 [facility] Comment on above: Performed By: #### L [id number] ####[facility] ([facility])[address] [place] [address] Creatinine [Mass/Vol] 0.91 mg/dL Normal 0.60-1.20 [facility] Comment on above: Performed By: #### L [id number] ####[facility] ([facility])[address] [place] [address] GLOMERULAR FILTRATION RATE ML/MIN/1.73 SQ M.PREDICTED 64.2 mL/min/1.73m*2 Normal >60.0 [facility] Comment on above: Result Comment: [facility]???s estimated glomerular filtration rate (eGFR) will no [...] of individuals. Performed By: #### L [id number] ####[facility] [place] [address] Glucose [Mass/Vol] 125 mg/dL High 70-100 [facility] Comment on above: Performed By: #### L [id number] ####[facility] ([facility] [place] [address] Potassium [Moles/Vol] 4.4 mmol/L Normal 3.5-5.[address] [facility] Comment on above: Performed By: #### L [id number] ####[facility] ([facility])[address] [place] [address] Sodium [Moles/Vol] 143 mmol/L Normal 136-145 [facility] Comment on above: Performed By: #### L [id number] ####[facility] ([facility] [place] [address] Urea nitrogen [Mass/Vol] 23 mg/dL Normal 7-25 [facility] Comment on above: Performed By: #### L [id number] ####[facility] ([facility] [place] [address] UREA NITROGEN/CREATININE (MASS RATIO) IN SER/PLAS 25.3 Normal [facility] Comment on above: Performed By: #### L [id number] ####[facility] ([facility] [place] [address] CBC WITH AUTO DIFFERENTIALon 11-13-2023 Basophils (Bld) [#/Vol] 0.03 10*3/uL Normal 0.00-0.20 [facility] Comment on above: Performed By: #### L [id number] ####[facility] ([facility])[address] [place] [address] Basophils/100 WBC (Bld) 0.3 % Normal 0.0-1.0 [facility] Comment on above: Performed By: #### L [id number] ####[facility] ([facility])[address] [place] [address] Eosinophils (Bld) [#/Vol] 0.00 10*3/uL Normal 0.00-0.50 [facility] Comment on above: Performed By: #### L [id number] ####[facility] ([facility])[address] [place] [address] Eosinophils/100 WBC (Bld) 0.0 % Normal 0.0-6.0 [facility] Comment on above: Performed By: #### L [id number] ####[facility] ([facility])[address] [place] [address] Erythrocyte distribution width (RBC) [Ratio] 15.9 % High 11.5-15.0 [facility] Comment on above: Performed By: #### L [id number] ####[facility] ([facility] [place] [address] ERYTHROCYTE MEAN CORPUSCULAR HEMOGLOBIN CONCENTRATION (G/DL) BY AUTOMATED 30.4 g/dL Low 32.0-35.0 [facility] Comment on above: Performed By: #### L [id number] ####[facility] ([facility])[address] [place] [address] Hematocrit (Bld) [Volume fraction] 36.2 % Normal 36.0-48.0 [facility] Comment on above: Performed By: #### L [id number] ####[facility] ([facility])[address] [place] [address] Hemoglobin (Bld) [Mass/Vol] 11.0 g/dL Low 12.0-15.0 [facility] Comment on above: Performed By: #### L [id number] ####[facility] ([facility])[address] [place] [address] Immature granulocytes (Bld) [#/Vol] 0.09 10*3/uL Normal 0.00-0.20 [facility] Comment on above: Performed By: #### L [id number] ####[facility] ([facility])[address] [place] [address] Immature granulocytes/100 WBC (Bld) 0.9 % Normal 0.0-1.0 [facility] Comment on above: Performed By: #### L [id number] ####[facility] ([facility])[address] [place] [address] Lymphocytes (Bld) [#/Vol] 1.28 10*3/uL Normal 1.20-4.00 [facility] Comment on above: Performed By: #### L [id number] ####[facility] ([facility])[address] [place] [address] Lymphocytes/100 WBC (Bld) 12.4 % Low 20.0-45.0 [facility] Comment on above: Performed By: #### L [id number] ####[facility] ([facility])[address] [place] [address] MCH (RBC) [Entitic mass] 28.8 pg Normal 27.0-33.0 [facility] Comment on above: Performed By: #### L [id number] ####[facility] ([facility] [place] [address] MCV (RBC) [Entitic vol] 94.8 fL Normal 82.0-98.0 [facility] Comment on above: Performed By: #### L [id number] ####[facility] ([facility] [place] [address] Monocytes (Bld) [#/Vol] 0.73 10*3/uL Normal 0.10-1.00 [facility] Comment on above: Performed By: #### L [id number] ####[facility] ([facility])[address] [place] [address] Monocytes/100 WBC (Bld) 7.1 % Normal 5.0-12.0 [facility] Comment on above: Performed By: #### L [id number] ####[facility] ([facility])[address] [place] [address] Neutrophils (Bld) [#/Vol] 8.21 10*3/uL High 1.60-7.60 [facility] Comment on above: Performed By: #### L [id number] ####[facility] ([facility])[address] [place] [address] Neutrophils/100 WBC (Bld) 79.3 % High 40.0-72.0 [facility] Comment on above: Performed By: #### L [id number] ####[facility] ([facility])[address] [place] [address] NRBC (PER 100 WBCS) BY AUTOMATED COUNT 0.0 % Normal 0 [facility] Comment on above: Performed By: #### L [id number] ####[facility] ([facility] [place] [address] PLATELETS (10*3/UL) IN BLOOD AUTOMATED COUNT 262 10*3/uL Normal 150-400 [facility] Comment on above: Performed By: #### L [id number] ####[facility] ([facility])[address] [place] [address] RBC (Bld) [#/Vol] 3.82 10*6/uL Normal 3.80-5.00 [facility] Comment on above: Performed By: #### L [id number] ####[facility] ([facility])[address] [place] [address] WBC (Bld) [#/Vol] 10.34 10*3/uL Normal 4.00-10.60 [facility] Comment on above: Performed By: #### L [id number] ####[facility] ([facility])[address] [place] [address] CONSULTon 11-13-2023 CONSULT Normal [facility] CT FEMUR LEFT WO IV CONTRAST on 11-13-2023 CT FEMUR LEFT WO IV CONTRAST Invalid Interpretation Code [facility] HPon 11-13-2023 HP Normal [facility] MAGNESIUMon 11-13-2023 Magnesium [Mass/Vol] 1.8 mg/dL Low 1.9-2.7 [facility] Comment on above: Performed By: #### L [id number] ####[facility] ([facility])[address] [place] [address] PROTIME-INRon 11-13-2023 INR IN PPP BY COAGULATION ASSAY 1.79 High 0.90-1.10 [facility] Comment on above: Result Comment: [facility] P RECOMMENDED INR FOR WARFARIN THERAPY CONDITION INRPROPHYLAXIS OF VENOUS THROMBOSIS 2-3(HIGH-RISK SURGERY)TREATMENT OF VENOUS THROMBOSIS 2-3TREATMENT OF PULMONARY EMBOLISM 2-3PREVENTION OF SYSTEMIC EMBOLISM: 2-3 ACUTE MYOCARDIAL INFARCTION TISSUE HEART VALVES VALVULAR HEART DISEASE ATRIAL FIBRILLATION RECURRENT SYSTEMIC EMBOLISMMECHANICAL HEART VALVE 2.5-3.5 FROM: ORAL ANTICOAGULANTS. MECHANISM OF ACTION, CLINICAL EFFECTIVENESS, AND OPTIMAL THERAPEUTIC RANGE. CHEST 1995;108:231S-246S. Performed By: #### L [id number] ####[facility] ([employer])[address] [place] [address] PROTHROMBIN TIME (PT) IN PPP BY COAGULATION ASSAY 20.9 Seconds High 12.3-14.8 [facility] Comment on above: Performed By: #### L [id number] ####[facility] ([facility])[address] [place] [address] TROPONIN Ion 11-13-2023 Troponin I.cardiac [Mass/Vol] 0.02 ng/mL Normal 0.00-0.04 [facility] Comment on above: Performed By: #### L [id number] ####[facility] ([employer])[address] [place] [address] TYPE AND SCREENon 11-13-2023 AB SCREEN Negative Normal [facility] Comment on above: Performed By: #### L [id number] ####[facility], ABO group Nom (Bld) O Normal [facility] Comment on above: Performed By: #### L [id number] ####[facility], RH TYPE IN BLOOD Positive Normal [facility] Comment on above: Performed By: #### L [id number] ####[facility], VIT D 25-OH [facility] 2022 Vitamin D, 25-Hydroxy 35.9 ng/mL Normal 30.0-100.0 [facility] Comment on above: Result Comment: Jadyn min D deficiency has been defined by the [place] of [employer] and an Endocrine Society practice guideline as a level of serum 25-OH vitamin D less than 20 ng/mL (1,2). The Endocrine Society went on to further define vitamin D insufficiency as a level between 21 and 29 ng/mL (2). 1. IOM ([place] of [employer]). 2010. Dietary reference intakes for calcium and D. [place]: The National Academies Press. 2. Yamilex MF, Florecita CAMP, Stella OTTO, et al. Evaluation, treatment, and prevention of vitamin D deficiency: an Endocrine Society clinical practice guideline. JCEM. 2010; 96(7):1911-30. Performed By: #### V ITADLC #### [facility] [address] [place] [address] Dr. Ashwin Key CBC AUTO DIFFon 08-22-2022 BASO # 0.0 103/ul Normal 0.0-0.1 [facility] Comment on above: Performed By: #### C BC #### [facility] [address] [place] [address] Dr. Ashwin Key Basophils/100 WBC (Bld) 0.5 % Normal 0.2-2.0 [facility] Comment on above: Performed By: #### C BC #### [facility] [address] [place] [address] Dr. Ashwin Key EO # 0.0 103/ul Normal 0.0-0.7 [facility] Comment on above: Performed By: #### C BC #### [facility] [address] [place] [address] Dr. Ashwin Key Eosinophils/100 WBC (Bld) 0.0 % Critically low 0.9-7.0 [facility] Comment on above: Performed By: #### C BC #### [facility] [address] [place] [address] Dr. Ashwin Key Erythrocyte distribution width (RBC) [Ratio] 14.7 % Normal 11.0-15.0 [facility] Comment on above: Performed By: #### C BC #### [facility] [address] [place] [address] Dr. Ashwin Key Hematocrit (Bld) [Volume fraction] 38.0 % Normal 36.0-48.0 [facility] Comment on above: Performed By: #### C BC #### [facility] [address] [place] [address] Dr. Ashwin Key Hemoglobin (Bld) [Mass/Vol] 11.5 g/dL Critically low 12.0-16.0 [facility] Comment on above: Performed By: #### C BC #### [facility] [address] [place] [address] Dr. Ashwin Key IG # 0.01 10e3/ul Normal 0.00-0.03 [facility] Comment on above: Performed By: #### C BC #### [facility] [address] [place] [address] Dr. Ashwin Key IG % 0.2 % Normal 0.0-0.5 [facility] Comment on above: Performed By: #### C BC #### [facility] [address] [place] [address] Dr. Ashwin Key LYMPH # 2.1 103/ul Normal 1.2-3.8 [facility] Comment on above: Performed By: #### C BC #### [facility] [address] [place] [address] Dr. Ashwin Key Lymphocytes/100 WBC (Bld) 48.4 % Normal 20.5-60.0 [facility] Comment on above: Performed By: #### C BC #### [facility] [address] [place] [address] Dr. Ashwin Key MANUAL DIFF REQ NO Normal [facility] Comment on above: Performed By: #### C BC #### [facility] [address] [place] [address] Dr. Ashwin Key MCH (RBC) [Entitic mass] 28.8 pg Normal 26.7-34.0 [facility] Comment on above: Performed By: #### C BC #### [facility] [address] [address] [address] Ashwin Key MCHC (RBC) [Mass/Vol] 30.3 g/dL Normal 29.9-35.2 [facility] Comment on above: Performed By: #### C BC #### [facility] [address] [address] [address] Ashwin Key MCV (RBC) [Entitic vol] 95.0 fL Normal 81.0-99.0 [facility] Comment on above: Performed By: #### C BC #### [facility] [address] [address] [address] Ashwin Key MONO # 0.4 103/ul Normal 0.3-0.8 [facility] Comment on above: Performed By: #### C BC #### [facility] [address] [place] [address] Dr. Ashwin Key Monocytes/100 WBC (Bld) 9.3 % Normal 1.7-12.0 [facility] Comment on above: Performed By: #### C BC #### [facility] [address] [place] [address] Dr. Ashwin Key NEUT # 1.8 103/ul Normal 1.4-6.5 [facility] Comment on above: Performed By: #### C BC #### [facility] [address] [place] [address] Dr. Ashwin Key Neutrophils/100 WBC (Bld) 41.6 % Critically low 43.0-75.0 [facility] Comment on above: Performed By: #### C BC #### [facility] [address] [place], [place] [id number] Dr. Ashwin Key Platelet mean volume (Bld) [Entitic vol] 10.3 fL Normal 9.5-13.5 [facility] Comment on above: Performed By: #### C BC #### [facility] [address] [place] [address] Dr. Ashwin Key PLT 166 103/ul Normal 150-450 [facility] Comment on above: Performed By: #### C BC #### [facility] [address] [address] [address] Ashwin Key RBC 4.00 106/ul Critically low 4.20-5.40 [facility] Comment on above: Performed By: #### C BC #### [facility] [address] [place] [address] Dr. Ashwin Key WBC 4.4 103/ul Normal 4.0-11.0 [facility] Comment on above: Performed By: #### C BC #### [facility] [address] [address] [address] Ashwin Key GLYCOHEMOGLOBIN A1Con 2022 ADA RECOMMENDATION SEE BELOW Normal [facility] Comment on above: Result Comment: ADA RECOMMENDED LIMIT 4.0 - 6.0 ADA THERAPEUTIC TARGET < 7.0 ACTION SUGGESTED > 7.0 Performed By: #### A 1C #### [facility] [address] [place] [address] Dr. Ashwin Key Glucose [Mass/Vol] 105 mg/dL Normal [facility] Comment on above: Performed By: #### A 1C #### [facility] [address] [place] [address] Dr. Ashwin Key HbA1c (Bld) [Mass fraction] 5.3 % Normal 4.5-6.2 [facility] Comment on above: Performed By: #### A 1C #### [facility] [address] [place] [address] Dr. Ashwin Key LIPID PROFILEon 08-22-2022 CHOL-HDL RATIO NORM SEE BELOW Normal [facility] Comment on above: Result Comment: 3.3 - 4.4 LOW RISK 4.4 - 7.1 AVERAGE RISK 7.1 - 11.0 MODERATE RISK >11.0 HIGH RISK Performed By: #### U JOEY BUTTRO #### [facility] [address] [place] [address] Dr. Ashwin Key Cholesterol [Mass/Vol] 103 mg/dL Normal <=200 [facility] Comment on above: Performed By: #### U FILOMENA UMSTACYRO #### [facility] [address] [place] [address] Dr. Ashwin Key Cholesterol in HDL [Mass/Vol] 40 mg/dL Normal 40-60 [facility] Comment on above: Performed By: #### U ACSJAZMIN UMICRO #### [facility] [address] [address] [address] Ashwin Key Cholesterol in LDL [Mass/Vol] 51.8 mg/dL Normal [facility] Comment on above: Performed By: #### U ACSJAZMIN UMICRO #### [facility] [address] [address] [address] Ashwin Key Cholesterol.total/Cho lesterol in HDL [Mass ratio] 2.6 {ratio} Normal [facility] Comment on above: Performed By: #### U ACSJAZMIN UMICRO #### [facility] [address] [address] [address] Ashwin Key HDL NORMAL > or = 60 mg/dl - LO W CARDIOVASCULAR RISK <40 mg/dl - HIGH CARDIOVASCULAR RISK Normal [facility] Comment on above: Performed By: #### U ACSJAZMIN UMICRO #### [facility] [address] [address] [address] Ashwin Key LDL CALC NORMAL SEE BELOW Normal [facility] Comment on above: Result Comment: <100 mg/dl OPTIMAL 100 - 129 mg/dl NEAR OR ABOVE OPTIMAL 130 - 159 mg/dl BORDERLINE HIGH 160 - 189 mg/dl HIGH >190 mg/dl VERY HIGH Performed By: #### U ACSJAZMIN UMICRO #### [facility] [address] [address] [address] Ashwin Key Triglyceride [Mass/Vol] 56 mg/dL Normal <=150 [facility] Comment on above: Performed By: #### U ACSJAZMIN UMICRO #### [facility] [address] [address] [address] Ashwin Key VLDL CALC 11.2 mg/dL Normal [facility] Comment on above: Performed By: #### U ACSJAZMIN, UMICRO #### [facility] [address] [address] [address] Ashwin Key PROF 14(COMP METB)on 023 Albumin [Mass/Vol] 2.5 g/dL Critically low 3.4-5.0 [facility] Comment on above: Performed By: #### U JUAN F BUTT #### [facility] [address] [address] [address] Ashwin Key Albumin/Globulin [Mass ratio] 0.7 {ratio} Normal [facility] Comment on above: Performed By: #### U JOEY BUTTRO #### [facility] [address] [address] [address] Ashwin Key ALP [Catalytic activity/Vol] 110 U/L Normal 46-116 [facility] Comment on above: Performed By: #### U JUAN F BUTT #### [facility] [address] [address] [address] Ashwin Key ALT [Catalytic activity/Vol] 16 U/L Normal 14-59 [facility] Comment on above: Performed By: #### JOEY DIEGORO #### [facility] [address] [address] [address] Ashwin Key Anion gap [Moles/Vol] 9.8 mmol/L Normal [facility] Comment on above: Performed By: #### JOEY DIEGORO #### [facility] [address] [place] [address] Dr. Ashwin Key AST [Catalytic activity/Vol] 13 U/L Critically low 15-37 [facility] Comment on above: Performed By: #### JOEY DEIGORO #### [facility] [address] [address] [address] Ashwin Key Bilirubin [Mass/Vol] 0.4 mg/dL Normal 0.2-1.0 [facility] Comment on above: Performed By: #### U JOEY BUTTRO #### [facility] [address] [address] [address] Ashwin Key Calcium [Mass/Vol] 8.5 mg/dL Normal 8.5-10.1 [facility] Comment on above: Performed By: #### U JOEY BUTTRO #### [facility] [address] [address] [address] Ashwin Key Chloride [Moles/Vol] 108 mmol/L Critically high 98-107 [facility] Comment on above: Performed By: #### U ACSJAZMIN, UMICRO #### [facility] [address] [address] [address] Ashwin Key CO2 [Moles/Vol] 31.0 mmol/L Normal 21.0-32.0 [facility] Comment on above: Performed By: #### U ACSIND, UMICRO #### [facility] [address] [address] [address] Ashwin Key Creatinine [Mass/Vol] 0.91 mg/dL Normal 0.55-1.02 [facility] Comment on above: Performed By: #### U ACSJAZMIN, UMICRO #### [facility] [address] [place] [address] Dr. Ashwin Key EGFR-AF NICARAGUAN >60 Normal >=60 [facility] Comment on above: Performed By: #### U ACSJAZMIN, UMICRO #### [facility] [address] [address] [address] Ashwin Key EGFR-NON AF NICARAGUAN 60 mL/min/1.73m2 Normal >=60 [facility] Comment on above: Performed By: #### U ACSJAZMIN, UMICRO #### [facility] [address] [address] [address] Ashwin Key Globulin (S) [Mass/Vol] 3.5 g/dL Normal [facility] Comment on above: Performed By: #### U ACSJAZMIN, UMICRO #### [facility] [address] [address] [address] Ashwin Key Glucose [Mass/Vol] 99 mg/dL Normal 74-106 [facility] Comment on above: Performed By: #### U ACSIND, UMICRO #### [facility] [address] [address] [address] Ashwin Key Potassium [Moles/Vol] 3.8 mmol/L Normal 3.5-5.1 [facility] Comment on above: Performed By: #### U ACSJAZMIN UMICRO #### [facility] [address] [place] [address] Dr. Ashwin Key Protein [Mass/Vol] 6.0 g/dL Critically low 6.4-8.2 [facility] Comment on above: Performed By: #### U ACSJAZMIN UMICRO #### [facility] [address] [place] [address] Dr. Ashwin Key Sodium [Moles/Vol] 145 mmol/L Normal 136-145 [facility] Comment on above: Performed By: #### U ACSJAZMIN UMICRO #### [facility] [address] [place] [address] Dr. Ashwin Key Urea nitrogen [Mass/Vol] 24.0 mg/dL Critically high 7.0-18.0 [facility] Comment on above: Performed By: #### U FILOMENA UMICRO #### [facility] [address] [place] [address] Dr. Ashwin Key Urea nitrogen/Creatinine [Mass ratio] 26.4 mg/mg Normal [facility] Comment on above: Performed By: #### U FILOMENA ICRO #### [facility] [address] [place] [address] Dr. Ashwin Key TSHon 08-22-2022 TSH 5.573 uIU/mL Critically high 0.358-3.740 [facility] Comment on above: Performed By: #### U FILOMENA UMICRO #### [facility] [address] [place] [address] Dr. Ashwin Key CBC AUTO DIFFon 08-10-2022 BASO # 0.0 103/ul Normal 0.0-0.1 [facility] Comment on above: Performed By: #### C BC #### [facility] [address] [place] [address] Dr. Ashwin Key Basophils/100 WBC (Bld) 0.7 % Normal 0.2-2.0 [facility] Comment on above: Performed By: #### C BC #### [facility] [address] [place] [address] Dr. Ashwin Key EO # 0.0 103/ul Normal 0.0-0.7 [facility] Comment on above: Performed By: #### C BC #### [facility] [address] [place] [address] Dr. Ashwin Key Eosinophils/100 WBC (Bld) 0.0 % Critically low 0.9-7.0 [facility] Comment on above: Performed By: #### C BC #### [facility] [address] [place] [address] Dr. Ashwin Key Erythrocyte distribution width (RBC) [Ratio] 15.1 % Critically high 11.0-15.0 [facility] Comment on above: Performed By: #### C BC #### [facility] [address] [place] [address] Dr. Ashwin Key Hematocrit (Bld) [Volume fraction] 38.0 % Normal 36.0-48.0 [facility] Comment on above: Performed By: #### C BC #### [facility] [address] [place] [address] Dr. Ashwin Key Hemoglobin (Bld) [Mass/Vol] 11.4 g/dL Critically low 12.0-16.0 [facility] Comment on above: Performed By: #### C BC #### [facility] [address] [place] [address] Dr. Ashwin Key IG # 0.02 10e3/ul Normal 0.00-0.03 [facility] Comment on above: Performed By: #### C BC #### [facility] [address] [place] [address] Dr. Ashwin Key IG % 0.5 % Normal 0.0-0.5 [facility] Comment on above: Performed By: #### C BC #### [facility] [address] [place] [address] Dr. Ashwin Key LYMPH # 2.1 103/ul Normal 1.2-3.8 [facility] Comment on above: Performed By: #### C BC #### [facility] [address] [place] [address] Dr. Ashwin Key Lymphocytes/100 WBC (Bld) 48.4 % Normal 20.5-60.0 [facility] Comment on above: Performed By: #### C BC #### [facility] [address] [place] [address] Dr. Ashwin Key MANUAL DIFF REQ NO Normal [facility] Comment on above: Performed By: #### C BC #### [facility] [address] [place] [address] Dr. Ashwin Key MCH (RBC) [Entitic mass] 28.8 pg Normal 26.7-34.0 [facility] Comment on above: Performed By: #### C BC #### [facility] [address] [place] [address] Dr. Ashwin Key MCHC (RBC) [Mass/Vol] 30.0 g/dL Normal 29.9-35.2 [facility] Comment on above: Performed By: #### C BC #### [facility] [address] [place] [address] Dr. Ashwin Key MCV (RBC) [Entitic vol] 96.0 fL Normal 81.0-99.0 [facility] Comment on above: Performed By: #### C BC #### [facility] [address] [place] [address] Dr. Ashwin Key MONO # 0.3 103/ul Normal 0.3-0.8 [facility] Comment on above: Performed By: #### C BC #### [facility] [address] [place] [address] Dr. Ashwin Key Monocytes/100 WBC (Bld) 7.7 % Normal 1.7-12.0 [facility] Comment on above: Performed By: #### C BC #### [facility] [address] [place] [address] Dr. Ashwin Key NEUT # 1.8 103/ul Normal 1.4-6.5 [facility] Comment on above: Performed By: #### C BC #### [facility] [address] [place] [address] Dr. Ashwin Key Neutrophils/100 WBC (Bld) 42.7 % Critically low 43.0-75.0 [facility] Comment on above: Performed By: #### C BC #### [facility] [address] [place] [address] Dr. Ashwin Key Platelet mean volume (Bld) [Entitic vol] 10.1 fL Normal 9.5-13.5 [facility] Comment on above: Performed By: #### C BC #### [facility] [address] [place] [address] Dr. Ashwin Key PLT 156 103/ul Normal 150-450 [facility] Comment on above: Performed By: #### C BC #### [facility] [address] [place] [address] Dr. Ashwin Key RBC 3.96 106/ul Critically low 4.20-5.40 [facility] Comment on above: Performed By: #### C BC #### [facility] [address] [place] [address] Dr. Ashwin Key WBC 4.3 103/ul Normal 4.0-11.0 [facility] Comment on above: Performed By: #### C BC #### [facility] [address] [place] [address] Dr. Ashwin Key PROF CHEM 8 (BAS METB)on Anion gap [Moles/Vol] 13.3 mmol/L Normal [facility] Comment on above: Performed By: #### U JOEY BUTTRO #### [facility] [address] [place] [address] Dr. Ashwin Key Calcium [Mass/Vol] 8.3 mg/dL Critically low 8.5-10.1 [facility] Comment on above: Performed By: #### U JOEY BUTTRO #### [facility] [address] [place] [address] Dr. Ashwin Key Chloride [Moles/Vol] 111 mmol/L Critically high 98-107 [facility] Comment on above: Performed By: #### U JOEY BUTTRO #### [facility] [address] [address] [address] Ashwin eKy CO2 [Moles/Vol] 29.9 mmol/L Normal 21.0-32.0 [facility] Comment on above: Performed By: #### U ACSIND, UMICRO #### [facility] [address] [address] [address] Ashwin Key Creatinine [Mass/Vol] 0.92 mg/dL Normal 0.55-1.02 [facility] Comment on above: Performed By: #### U ACSIND, UMICRO #### [facility] [address] [address] [address] Ashwin Key EGFR-AF NICARAGUAN >60 Normal >=60 [facility] Comment on above: Performed By: #### U ACSIND, UMICRO #### [facility] [address] [address] [address] Ashwin Key EGFR-NON AF NICARAGUAN 59 mL/min/1.73m2 Critically low >=60 [facility] Comment on above: Performed By: #### U ACSIND, UMICRO #### [facility] [address] [address] [address] Ashwin Key Glucose [Mass/Vol] 84 mg/dL Normal 74-106 [facility] Comment on above: Performed By: #### U ACSIND, UMICRO #### [facility] [address] [address] [address] Ashwin Key Potassium [Moles/Vol] 4.2 mmol/L Normal 3.5-5.1 [facility] Comment on above: Performed By: #### U ACSIND, UMICRO #### [facility] [address] [address] [address] Ashwin Key Sodium [Moles/Vol] 150 mmol/L Critically high 136-145 [facility] Comment on above: Performed By: #### U ACSIND, UMICRO #### [facility] [address] [address] [address] Ashwin Key Urea nitrogen [Mass/Vol] 25.0 mg/dL Critically high 7.0-18.0 [facility] Comment on above: Performed By: #### U ACSJAZMIN, UMICRO #### [facility] [address] [place] [address] Dr. Ashwin Key Urea nitrogen/Creatinine [Mass ratio] 27.2 mg/mg Normal [facility] Comment on above: Performed By: #### U ACSJAZMIN, UMICRO #### [facility] [address] [place] [address] Dr. Ashwin Key TSHon 08-10-2022 TSH 3.430 uIU/mL Normal 0.358-3.740 [facility] Comment on above: Performed By: #### U ACSJAZMIN, UMICRO #### [facility] [address] [place] [address] Dr. Ashwin Key CULTURE URINEon 08-09-2022 CULTURE URINE Culture Observations : ANSON TO FOLLOW. Normal [facility] Comment on above: Performed By: #### U ACSJAZMIN UMICRO #### [facility] [address] [place] [address] Dr. Ashwin Key UA (CLEAN/CATCH) LINE LOCATOR/MICRO I F IND.on 08-09-2022 Bilirubin Ql (U) Negative Normal NEGATIVE [facility] Comment on above: Performed By: #### U FILOMENA UMICRO #### [facility] [address] [place] [address] Dr. Ashwin Key Clarity (U) CLEAR Normal CLEAR [facility] Comment on above: Performed By: #### U FILOMENA UMICRO #### [facility] [address] [place] [address] Dr. Ashwin Key Color (U) LT. YELLOW Normal YELLOW [facility] Comment on above: Performed By: #### U ACSJAZMIN UMICRO #### [facility] [address] [place] [address] Dr. Ashwin Key Glucose Ql (U) Negative Normal NEGATIVE [facility] Comment on above: Performed By: #### U ACSJAZMIN, UMICRO #### [facility] [address] [place] [address] Dr. Ashwin Key Hemoglobin Ql (U) TRACE-INTACT Abnormal NEGATIVE [facility] Comment on above: Performed By: #### U ACSIND, UMICRO #### [facility] [address] [place] [address] Dr. Ashwin Key Ketones Ql (U) Negative Normal NEGATIVE [facility] Comment on above: Performed By: #### U ACSIND, UMICRO #### [facility] [address] [place] [address] Dr. Ashwin Key LEUKOCYTES TRACE Abnormal NEGATIVE [facility] Comment on above: Performed By: #### U ACSIND, UMICRO #### [facility] [address] [address] [address] Ashwin Key Nitrite Ql (U) Negative Normal NEGATIVE [facility] Comment on above: Performed By: #### U ACSIND, UMICRO #### [facility] [address] [place] [address] Dr. Ashwin Key pH (U) 5.5 [pH] Normal 5-9 [facility] Comment on above: Performed By: #### U ACSIND, UMICRO #### [facility] [address] [place] [address] Dr. Ashwin Key SPEC GRAVITY <=1.005 Abnormal 1.005-<=1.02 5 [facility] Comment on above: Performed By: #### U ACSIND, UMICRO #### [facility] [address] [place] [address] Dr. Ashwin Key UA PROTEIN Negative Normal NEGATIVE/ TRACE [facility] Comment on above: Performed By: #### U ACSIND, UMICRO #### [facility] [address] [place] [address] Dr. Ashwin Key UR MICRO IND INDICATED Normal [facility] Comment on above: Performed By: #### U ACSIND, UMICRO #### [facility] [address] [place] [address] Dr. Ashwin Key Urobilinogen Qn (U) 0.2 {Mercedes'U}/dL Normal 0.2 - 1. 0 [facility] Comment on above: Performed By: #### U ACSIND, UMICRO #### [facility] [address] [address] [address] Ashwin Key URINE MICROSCOPIC ONLYon AMORPHOUS CRYSTALS FEW Normal [facility] Comment on above: Performed By: #### U ACSIND, UMICRO #### [facility] [address] [address] [address] Ashwin Key BACTERIA MODERATE Abnormal NONE SEEN [facility] Comment on above: Performed By: #### U ACSIND, UMICRO #### [facility] [address] [address] [address] Ashwin Key Bacteria identified Cx Nom (U) INDICATED Normal [facility] Comment on above: Performed By: #### U ACSIND, UMICRO #### [facility] [address] [place] [address] Dr. Ashwin Key CAST NONE SEEN Normal NONE SEEN [facility] Comment on above: Performed By: #### U ACSIND, UMICRO #### [facility] [address] [place] [address] Dr. Ashwin Key Crystals LM Nom (Urine sed) SEEN Abnormal NONE SEEN [facility] Comment on above: Performed By: #### U ACSJAZMIN, UMICRO #### [facility] [address] [place] [address] Dr. Ashwin Key Epithelial cells LM Ql (Urine sed) MANY Abnormal NONE SEEN /RARE [facility] Comment on above: Performed By: #### U ACSIND, UMICRO #### [facility] [address] [address] [address] Ashwin Key MUCOUS NONE SEEN Normal NONE SEEN [facility] Comment on above: Performed By: #### U ACSIND, UMICRO #### [facility] [address] [place] [address] Dr. Ashwin Key RBC 0-2 Normal 0-2 [facility] Comment on above: Performed By: #### U ACSIND, UMICRO #### [facility] [address] [address] [address] Ashwin Key WBC 2-5 Abnormal NONE SEEN [facility] Comment on above: Performed By: #### U ACSIND, UMICRO #### [facility] [address] [address] [address] Ashwin Key CBC AUTO DIFFon 07-11-2022 BASO # 0.0 103/ul Normal 0.0-0.1 [facility] Comment on above: Performed By: #### C BC #### [facility] [address] [place] [address] Dr. Ashwin Key Basophils/100 WBC (Bld) 0.5 % Normal 0.2-2.0 [facility] Comment on above: Performed By: #### C BC #### [facility] [address] [place] [address] Dr. Ashwin Key EO # 0.0 103/ul Normal 0.0-0.7 [facility] Comment on above: Performed By: #### C BC #### [facility] [address] [place] [address] Dr. Ashwin Key Eosinophils/100 WBC (Bld) 0.0 % Critically low 0.9-7.0 [facility] Comment on above: Performed By: #### C BC #### [facility] [address] [place] [address] Dr. Ashwin Key Erythrocyte distribution width (RBC) [Ratio] 14.5 % Normal 11.0-15.0 [facility] Comment on above: Performed By: #### C BC #### [facility] [address] [place] [address] Dr. Ashwin Key Hematocrit (Bld) [Volume fraction] 42.5 % Normal 36.0-48.0 [facility] Comment on above: Performed By: #### C BC #### [facility] [address] [place] [address] Dr. Ashwin Key Hemoglobin (Bld) [Mass/Vol] 13.1 g/dL Normal 12.0-16.0 [facility] Comment on above: Performed By: #### C BC #### [facility] [address] [place] [address] Dr. Ashwin Key IG # 0.02 10e3/ul Normal 0.00-0.03 [facility] Comment on above: Performed By: #### C BC #### [facility] [address] [place] [address] Dr. Ashwin Key IG % 0.5 % Normal 0.0-0.5 [facility] Comment on above: Performed By: #### C BC #### [facility] [address] [place] [address] Dr. Ashwin Key LYMPH # 2.1 103/ul Normal 1.2-3.8 [facility] Comment on above: Performed By: #### C BC #### [facility] [address] [place] [address] Dr. Ashwin Key Lymphocytes/100 WBC (Bld) 48.2 % Normal 20.5-60.0 [facility] Comment on above: Performed By: #### C BC #### [facility] [address] [place] [address] Dr. Ashwin Key MANUAL DIFF REQ NO Normal [facility] Comment on above: Performed By: #### C BC #### [facility] [address] [place] [address] Dr. Ashwin Key MCH (RBC) [Entitic mass] 28.4 pg Normal 26.7-34.0 [facility] Comment on above: Performed By: #### C BC #### [facility] [address] [place] [address] Dr. Ashwin Key MCHC (RBC) [Mass/Vol] 30.8 g/dL Normal 29.9-35.2 [facility] Comment on above: Performed By: #### C BC #### [facility] [address] [place] [address] Dr. Ashwin Key MCV (RBC) [Entitic vol] 92.2 fL Normal 81.0-99.0 [facility] Comment on above: Performed By: #### C BC #### [facility] [address] [place] [address] Dr. Ashwin Key MONO # 0.4 103/ul Normal 0.3-0.8 [facility] Comment on above: Performed By: #### C BC #### [facility] [address] [place] [address] Dr. Ashwin Key Monocytes/100 WBC (Bld) 8.7 % Normal 1.7-12.0 [facility] Comment on above: Performed By: #### C BC #### [facility] [address] [place] [address] Dr. Ashwin Key NEUT # 1.8 103/ul Normal 1.4-6.5 [facility] Comment on above: Performed By: #### C BC #### [facility] [address] [place] [address] Dr. Ashwin Key Neutrophils/100 WBC (Bld) 42.1 % Critically low 43.0-75.0 [facility] Comment on above: Performed By: #### C BC #### [facility] [address] [place] [address] Dr. Ashwin Key Platelet mean volume (Bld) [Entitic vol] 10.4 fL Normal 9.5-13.5 [facility] Comment on above: Performed By: #### C BC #### [facility] [address] [place] [address] Dr. Ashwin Key PLT 159 103/ul Normal 150-450 [facility] Comment on above: Performed By: #### C BC #### [facility] [address] [place] [address] Dr. Ashwin Key RBC 4.61 106/ul Normal 4.20-5.40 [facility] Comment on above: Performed By: #### C BC #### [facility] [address] [place] [address] Dr. Ashwin Key WBC 4.3 103/ul Normal 4.0-11.0 [facility] Comment on above: Performed By: #### C BC #### [facility] [address] [place] [address] Dr. Ashwin Key PROF CHEM 8 (BAS METB)on Anion gap [Moles/Vol] 10.2 mmol/L Normal [facility] Comment on above: Performed By: #### B MP #### [facility] [address] [address] [address] Ashwin Key Calcium [Mass/Vol] 8.5 mg/dL Normal 8.5-10.1 [facility] Comment on above: Performed By: #### B MP #### [facility] [address] [address] [address] Ashwin Key Chloride [Moles/Vol] 104 mmol/L Normal 98-107 [facility] Comment on above: Performed By: #### B MP #### [facility] [address] [address] [address] Ashwin Key CO2 [Moles/Vol] 32.6 mmol/L Critically high 21.0-32.0 [facility] Comment on above: Performed By: #### B MP #### [facility] [address] [place] [address] Dr. Ashwin Key Creatinine [Mass/Vol] 0.91 mg/dL Normal 0.55-1.02 [facility] Comment on above: Performed By: #### B MP #### [facility] [address] [address] [address] Ashwin Key EGFR-AF NICARAGUAN >60 Normal >=60 [facility] Comment on above: Performed By: #### B MP #### [facility] [address] [address] [address] Ashwin Key EGFR-NON AF NICARAGUAN =60 Normal >=60 [facility] Comment on above: Performed By: #### B MP #### [facility] [address] [address] [address] Ashwin Key Glucose [Mass/Vol] 89 mg/dL Normal 74-106 [facility] Comment on above: Performed By: #### B MP #### [facility] [address] [address] [address] Ashwin Key Potassium [Moles/Vol] 3.8 mmol/L Normal 3.5-5.1 [facility] Comment on above: Performed By: #### B MP #### [facility] [address] [address] [address] Ashwin Key Sodium [Moles/Vol] 143 mmol/L Normal 136-145 [facility] Comment on above: Performed By: #### B MP #### [facility] [address] [place] [address] Dr. Ashwin Key Urea nitrogen [Mass/Vol] 26.0 mg/dL Critically high 7.0-18.0 [facility] Comment on above: Performed By: #### B MP #### [facility] [address] [place] [address] Dr. Ashwin Key Urea nitrogen/Creatinine [Mass ratio] 28.6 mg/mg Normal [facility] Comment on above: Performed By: #### B MP #### [facility] [address] [place] [address] Dr. Ashwin Key CULTURE URINEon 02-11-2022 CULTURE [...] F Trimethoprim/Sulfameth oxazole <=20 S F Normal [facility] Comment on above: Performed By: #### U ACSIND, UMICRO #### [facility] [address] [place] [address] Dr. Ashwin Key CBC AUTO DIFFon 02-07-2022 BASO # 0.0 103/ul Normal 0.0-0.1 [facility] Comment on above: Performed By: #### C BC #### [facility] [address] [place] [address] Dr. Ashwin Key Basophils/100 WBC (Bld) 0.5 % Normal 0.2-2.0 [facility] Comment on above: Performed By: #### C BC #### [facility] [address] [address] [address] Ashwin Key EO # 0.0 103/ul Normal 0.0-0.7 [facility] Comment on above: Performed By: #### C BC #### [facility] [address] [address] [address] Ashwin Key Eosinophils/100 WBC (Bld) 0.0 % Critically low 0.9-7.0 [facility] Comment on above: Performed By: #### C BC #### [facility] [address] [place] [address] Dr. Ashwin Key Erythrocyte distribution width (RBC) [Ratio] 13.4 % Normal 11.0-15.0 [facility] Comment on above: Performed By: #### C BC #### [facility] [address] [place] [address] Dr. Ashwin Key Hematocrit (Bld) [Volume fraction] 46.8 % Normal 36.0-48.0 [facility] Comment on above: Performed By: #### C BC #### [facility] [address] [place] [address] Dr. Ashwin Key Hemoglobin (Bld) [Mass/Vol] 14.2 g/dL Normal 12.0-16.0 [facility] Comment on above: Performed By: #### C BC #### [facility] [address] [place] [address] Dr. Ashwin Key IG # 0.05 10e3/ul Critically high 0.00-0.03 [facility] Comment on above: Performed By: #### C BC #### [facility] [address] [place] [address] Dr. Ashwin Key IG % 0.6 % Critically high 0.0-0.5 [facility] Comment on above: Performed By: #### C BC #### [facility] [address] [place] [address] Dr. Ashwin Key LYMPH # 2.0 103/ul Normal 1.2-3.8 [facility] Comment on above: Performed By: #### C BC #### [facility] [address] [place] [address] Dr. Ashwin Key Lymphocytes/100 WBC (Bld) 22.9 % Normal 20.5-60.0 [facility] Comment on above: Performed By: #### C BC #### [facility] [address] [place] [address] Dr. Ashwin Key MANUAL DIFF REQ NO Normal [facility] Comment on above: Performed By: #### C BC #### [facility] [address] [place] [address] Dr. Ashwin Key MCH (RBC) [Entitic mass] 29.1 pg Normal 26.7-34.0 [facility] Comment on above: Performed By: #### C BC #### [facility] [address] [place] [address] Dr. Ashwin Key MCHC (RBC) [Mass/Vol] 30.3 g/dL Normal 29.9-35.2 [facility] Comment on above: Performed By: #### C BC #### [facility] [address] [place] [address] Dr. Ashwin Key MCV (RBC) [Entitic vol] 95.9 fL Normal 81.0-99.0 [facility] Comment on above: Performed By: #### C BC #### [facility] [address] [place] [address] Dr. Ashwin Key MONO # 0.9 103/ul Critically high 0.3-0.8 [facility] Comment on above: Performed By: #### C BC #### [facility] [address] [place] [address] Dr. Ashwin Key Monocytes/100 WBC (Bld) 10.9 % Normal 1.7-12.0 [facility] Comment on above: Performed By: #### C BC #### [facility] [address] [place] [address] Dr. Ashwin Key NEUT # 5.6 103/ul Normal 1.4-6.5 [facility] Comment on above: Performed By: #### C BC #### [facility] [address] [place] [address] Dr. Ashwin Key Neutrophils/100 WBC (Bld) 65.1 % Normal 43.0-75.0 [facility] Comment on above: Performed By: #### C BC #### [facility] [address] [place] [address] Dr. Ashwin Key Platelet mean volume (Bld) [Entitic vol] 10.6 fL Normal 9.5-13.5 [facility] Comment on above: Performed By: #### C BC #### [facility] [address] [place] [address] Dr. Ashwin Key PLT 203 103/ul Normal 150-450 [facility] Comment on above: Performed By: #### C BC #### [facility] [address] [place] [address] Dr. Ashwin Key RBC 4.88 106/ul Normal 4.20-5.40 [facility] Comment on above: Performed By: #### C BC #### [facility] [address] [place] [address] Dr. Ashwin Key WBC 8.6 103/ul Normal 4.0-11.0 [facility] Comment on above: Performed By: #### C BC #### [facility] [address] [place] [address] Dr. Ashwin Key PROF 14(COMP METB)on 022 Albumin [Mass/Vol] 3.6 g/dL Normal 3.4-5.0 [facility] Comment on above: Performed By: #### [facility] #### [facility] [address] [place] [address] Dr. Ashwin Key Albumin/Globulin [Mass ratio] 1.2 {ratio} Normal [facility] Comment on above: Performed By: #### U FILOMENA ICRO #### [facility] [address] [place] [address] Dr. Ashwin Key ALP [Catalytic activity/Vol] 128 U/L Critically high 46-116 [facility] Comment on above: Performed By: #### U GURVINDER BUTTICRO #### [facility] [address] [address] [address] Ashwin Key ALT [Catalytic activity/Vol] 20 U/L Normal 14-59 [facility] Comment on above: Performed By: #### U ACSIND, UMICRO #### [facility] [address] [address] [address] Ashwin Key Anion gap [Moles/Vol] 12.0 mmol/L Normal [facility] Comment on above: Performed By: #### U ACSIND, UMICRO #### [facility] [address] [address] [address] Ashwin Key AST [Catalytic activity/Vol] 18 U/L Normal 15-37 [facility] Comment on above: Performed By: #### U ACSIND, UMICRO #### [facility] [address] [address] [address] Ashwin Key Bilirubin [Mass/Vol] 0.8 mg/dL Normal 0.2-1.0 [facility] Comment on above: Performed By: #### U ACSIND, UMICRO #### [facility] [address] [address] [address] Ashwin Key Calcium [Mass/Vol] 8.1 mg/dL Critically low 8.5-10.1 [facility] Comment on above: Performed By: #### U ACSIND, UMICRO #### [facility] [address] [address] [address] Ashwin Key Chloride [Moles/Vol] 99 mmol/L Normal 98-107 [facility] Comment on above: Performed By: #### U ACSIND, UMICRO #### [facility] [address] [address] [address] Ashwin Key CO2 [Moles/Vol] 33.7 mmol/L Critically high 21.0-32.0 [facility] Comment on above: Performed By: #### U ACSIND, UMICRO #### [facility] [address] [address] [address] Ashwin Key Creatinine [Mass/Vol] 1.07 mg/dL Critically high 0.55-1.02 [facility] Comment on above: Performed By: #### U GURVINDER BUTTICRO #### [facility] [address] [place] [address] Dr. Ashwin Key EGFR-AF NICARAGUAN 60 mL/min/1.73m2 Normal >=60 [facility] Comment on above: Performed By: #### U ACSJAZMIN UMICRO #### [facility] [address] [place] [address] Dr. Ashwin Key EGFR-NON AF NICARAGUAN 50 mL/min/1.73m2 Critically low >=60 [facility] Comment on above: Performed By: #### U ACSJAZMIN UMICRO #### [facility] [address] [place] [address] Dr. Ashwin Key Globulin (S) [Mass/Vol] 3.0 g/dL Normal [facility] Comment on above: Performed By: #### U ACSJAZMIN UMICRO #### [facility] [address] [place] [address] Dr. Ashwin Key Glucose [Mass/Vol] 76 mg/dL Normal 74-106 [facility] Comment on above: Performed By: #### U FILOMENA UMICRO #### [facility] [address] [place] [address] Dr. Ashwin Key Potassium [Moles/Vol] 4.7 mmol/L Normal 3.5-5.1 [facility] Comment on above: Performed By: #### U ACSJAZMIN UMICRO #### [facility] [address] [place] [address] Dr. Ashwin Key Protein [Mass/Vol] 6.6 g/dL Normal 6.4-8.2 [facility] Comment on above: Performed By: #### U ACSJAZMIN UMICRO #### [facility] [address] [place] [address] Dr. Ashwin Key Sodium [Moles/Vol] 140 mmol/L Normal 136-145 [facility] Comment on above: Performed By: #### U ACSJAZMIN UMICRO #### [facility] [address] [address] [address] Ashwin Key Urea nitrogen [Mass/Vol] 31.0 mg/dL Critically high 7.0-18.0 [facility] Comment on above: Performed By: #### U ACSIND, UMICRO #### [facility] [address] [address] [address] Ashwin Key Urea nitrogen/Creatinine [Mass ratio] 29.0 mg/mg Normal [facility] Comment on above: Performed By: #### U ACSIND, UMICRO #### [facility] [address] [place] [address] Dr. Ashwin Key UA RANDOMon 02-07-2022 Bilirubin Ql (U) Negative Normal NEGATIVE [facility] Comment on above: Performed By: #### U A #### [facility] [address] [place] [address] Dr. Ashwin Key Clarity (U) CLEAR Normal CLEAR [facility] Comment on above: Performed By: #### U A #### [facility] [address] [place] [address] Dr. Ashwin Key Color (U) LT. YELLOW Normal YELLOW [facility] Comment on above: Performed By: #### U A #### [facility] [address] [place] [address] Dr. Ashwin Key Glucose Ql (U) Negative Normal NEGATIVE [facility] Comment on above: Performed By: #### U A #### [facility] [address] [place] [address] Dr. Ashwin Key Hemoglobin Ql (U) Negative Normal NEGATIVE [facility] Comment on above: Performed By: #### U A #### [facility] [address] [place] [address] Dr. Ashwin Key Ketones Ql (U) TRACE Abnormal NEGATIVE [facility] Comment on above: Performed By: #### U A #### [facility] [address] [place] [address] Dr. Ashwin Key LEUKOCYTES SMALL Abnormal NEGATIVE [facility] Comment on above: Performed By: #### U A #### [facility] [address] [address] [address] Ashwin Key Nitrite Ql (U) Positive Abnormal NEGATIVE [facility] Comment on above: Performed By: #### U A #### [facility] [address] [place] [address] Dr. Ashwin Key pH (U) 6.0 [pH] Normal 5-9 [facility] Comment on above: Performed By: #### U A #### [facility] [address] [address] [address] Ashwin Key SPEC GRAVITY 1.020 Normal 1.005-<=1.02 5 [facility] Comment on above: Performed By: #### U A #### [facility] [address] [place] [address] Dr. Ashwin Key UA PROTEIN Negative Normal NEGATIVE/ TRACE [facility] Comment on above: Performed By: #### U A #### [facility] [address] [place] [address] Dr. Ashwin Key Urobilinogen Qn (U) 1.0 {Mercedes'U}/dL Normal 0.2 - 1. 0 [facility] Comment on above: Performed By: #### U A #### [facility] [address] [place] [address] Dr. Ashwin Key K (Potassium)on 01-30-2017 Potassium molar conc 4.2 mmol/L Normal 3.7-5.3 [facility] Comment on above: Result Comment: Perf ormed at [address] [place] [address] [phone] Performed By: #### K ####[address] [place] [address] Encounters Encounter Date Encounter Type Care Provider Facility Start: 12-06-2023 Evaluation and management of inpatient HARSHA KIRBY [facility] Start: 12-05-2023 Evaluation and management of inpatient DON BUCHANANKL [facility] Start: 12-04-2023 Emergency department patient visit DOE BARAJAS [facility] Start: 12-04-2023 End: 12-06-2023 Evaluation and management of inpatient DARLENE MOORE [facility] Start: 11-20-2023 Evaluation and management of inpatient DARLENE MOORE [facility] Start: 11-15-2023 [facility] Start: 11-15-2023 [facility] Start: 11-15-2023 Evaluation and management of inpatient SIDNEY SALAZAR [facility] Start: 11-14-2023 [facility] Start: 11-14-2023 Evaluation and management of inpatient YUE BRODY [facility] Start: 11-13-2023 Evaluation and management of inpatient OLIMPIA LANDRY [facility] Start: 11-13-2023 End: 11-22-2023 Evaluation and management of inpatient SIDNEY SALAZAR [facility] Start: 08-22-2022 End: 08-22-[address] PRANAV CAMPOS Facility:[facility] Start: 08-12-2022 End: 08-12-[address] DOCTOR MONTANO Facility:[facility] Start: 08-10-2022 End: 08-10-[address] PRANAV CAMPOS Facility:[facility] Start: 07-11-2022 End: 07-11-[address] PRANAV CAMPOS Facility:[facility] Start: 02-07-2022 End: 02-07-[address] PRANAV CAMPOS Facility:[facility] Start: 01-31-2017 End: 02-01-2017 Ambulatory [facility] Start: 01-30-2017 End: 01-31-2017 Ambulatory NEPTALI [facility] Procedures Date Procedure Procedure Detail Performing Clinician Start: 01-30-2017 BARRY BEE Payers Date Payer Category Payer Medicare [id number] 2017 Medicare [id number] 1960 Medicaid [id number] 1960 Medicare [id number] 1945 [facility] [id number] [id number] 1945 Unknown [id number] 2.16.84 [id number] 1945 Unknown [id number] 2.16.84 [id number] 1945 Unknown [id number] 2.16.84 [id number] 1945 Unknown [id number] 2.16.84 [id number] Clinical Notes 11-14-2023 to 12-06-2023 Note Date & Type Note Facility 12-06-2023 Note [facility] 12-06-2023 Note [facility] 12-06-2023 Note [facility] 12-06-2023 Note [facility] 12-06-2023 Note [facility] 12-05-2023 Note [facility] 12-05-2023 Note [facility] 12-05-2023 Note [facility] 12-04-2023 Note [facility] 11-22-2023 Note [facility] 11-21-2023 Note [facility] 11-21-2023 Note Sent updates to [facility] and advised of possible discharge today. [facility] 11-21-2023 Note [facility] 11-20-2023 Note [facility] 11-20-2023 Note [facility] 11-20-2023 Note [facility] 11-20-2023 Note [facility] 11-20-2023 Note [facility] 11-19-2023 Note [facility] 11-19-2023 Note [facility] 11-19-2023 Note [facility] 11-18-2023 Note [facility] 11-18-2023 Note [facility] 11-17-2023 Note [facility] 11-17-2023 Note [facility] 11-17-2023 Note Sent updates to [facility]. Unclear at this point if pt will need pre-cert to return. UPDATE 10:40AM- Advised by [place] pt is a bed hold and no pre-cert is necessary. [facility] 11-17-2023 Note [facility] 11-17-2023 Note [facility] 11-16-2023 Note [facility] 11-15-2023 Note [facility] 11-15-2023 Note [facility] 11-15-2023 Note [facility] 11-15-2023 Note [facility] 11-15-2023 Note [facility] 11-14-2023 Note [facility] 11-14-2023 Note [facility] 11-14-2023 Note [facility] 11-14-2023 Note [facility] 11-14-2023 Note [facility] 11-14-2023 Note [facility] 11-14-2023 Note [facility] Summary Purpose Family History No Family [...] pital DATE CREATED AUTHOR AUTHOR'S ORGANIZ ATION 12/13/2023 [facility] FOR RECORDS PERTAINING TO PATIENTS WHO [...] BE BASED ON THE PRIMARY CLINICAL RECORDS. [facility]. provides no warranty or guarantee of the accuracy or completeness of information in this document.
--- NOTE | 2023-12-18 03:14 | PC.NURSE ---
PT SENT FROM [facility] FOR HYPOXIA. PT WEARS 5L NORMALY. ECF STAFF STATED PT HAS BEEN 76%SPO2 ALL DAY ON HER NORMAL 5L. PT IS 95-100% ON 5L UPON ARRIVAL TO ER. WHEN ASKED, PT DECLINES ANY SOB. PT DNRCC.
--- NOTE | 2023-12-18 03:28 | ED.GENADUL1 ---
HPI HPI - General Adult General Chief complaint: Shortness of Breath/Dyspnea Stated complaint: LOW PULSE OX Time Seen by Provider: 12/18/23 03:17 Source: medical record Mode of arrival: ambulance History of Present Illness HPI narrative: NHP who is 02 dependent. wears 5L NC at longterm. Reportedly pulse ox mid 70s all day. Sent here this AM for evaluation. Arrives with [address] and pulse ox 97-98%. No distress. Patient is pleasant but not able to provide any history. Is not sure why she is here. DNRCC no fever. No complaint of pain Related Data Home Medications ?Medication ?Instructions ?Recorded ?Confirmed acetaminophen 500 mg capsule 1,000 mg PO Q6H 11/13/23 11/27/23 ammonium lactate 12 % lotion 1 applic topical BID PRN dry skin 11/13/23 11/27/23 aspirin 81 mg chewable tablet 81 mg PO DAILY 11/13/23 11/27/23 atorvastatin 40 mg tablet 40 mg PO QPM 11/13/23 11/27/23 baclofen 20 mg tablet 20 mg PO QPM 11/13/23 11/27/23 cholecalciferol (vitamin D3) 1,250 1,250 mcg PO QWEEK 11/13/23 11/27/23 mcg (50,000 unit) capsule folic acid 1 mg tablet 1 mg PO .QD 11/13/23 12/04/23 levothyroxine 100 mcg tablet 100 mcg PO .ACB 11/13/23 12/04/23 lidocaine 4 % topical patch 1 patch topical DAILY 11/13/23 12/04/23 (Aspercreme (lidocaine)) loperamide 2 mg capsule 2 mg PO BID PRN loose stool 11/13/23 12/04/23 melatonin 3 mg capsule 3 mg PO .QHS 11/13/23 11/27/23 menthol 5 % topical gel (Biofreeze 1 ea topical .Q8 PRN pain 11/13/23 11/27/23 (menthol)) morphine 15 mg tablet,extended 15 mg PO Q8H 11/13/23 12/04/23 release nystatin 100,000 unit/gram topical 1 applic topical .QD 11/13/23 11/27/23 powder ondansetron HCl 4 mg tablet 4 mg PO Q6H PRN nausea and vomiting 11/13/23 12/04/23 oxycodone 5 mg tablet 5 mg PO Q6H PRN pain 11/13/23 12/04/23 potassium citrate 10 mEq (1,080 10 meq PO QID 11/13/23 12/04/23 mg) tablet,extended release sertraline 25 mg tablet 75 mg PO BEDTIME 11/13/23 12/04/23 dextromethorphan-guaifenesin 10 1 tab-cap PO BID PRN cough 11/27/23 11/27/23 mg-200 mg capsule (Coricidin HBP Chest Congestion-Cough) enoxaparin 40 mg/0.4 mL 40 mg subcut DAILY 11/27/23 11/27/23 subcutaneous syringe (Lovenox) hexylresorcinol 1 otis mucous membrane DAILY PRN 11/27/23 11/27/23 sore throat wound dressings (Triad Wound 1 applic topical TID 11/27/23 11/27/23 Dressing paste) polyethylene glycol 3350 17 17 g PO DAILY PRN constipation 12/04/23 12/04/23 gram/dose oral powder (ClearLax) Previous Rx's ?Medication ?Instructions ?Recorded amoxicillin 875 mg-potassium 1 tab PO Q12H #20 tabs 11/29/23 clavulanate 125 mg tablet furosemide 40 mg tablet (Lasix) 40 mg PO QAM #30 tabs 11/29/23 Allergies Allergy/AdvReac Type Severity Reaction Status Date / Time No Known Drug Allergies Allergy Verified 12/04/23 07:37 Opioid HPI Opioid Management Most Recent Opioid Data: Last Pain Scale 3 12/04/23 08:39 Last Pain Intensity 6 11/27/23 13:21 Last ORT Total Score 0 11/27/23 05:15 Last ORT Risk Category Low Risk 11/27/23 05:15 Review of Systems ROS Status of ROS unobtainable due to mental status [facility] Medical History (Updated 12/18/23 @ 05:14 by José Luis Phillip MD) Postoperative wound breakdown ?T81.31XA - Disruption of external operation (surgical) wound, not elsewhere classified, initial encounter (ICD-10) CHF (congestive heart failure) ?I50.9 - Heart failure, unspecified (ICD-10) Bruise of both arms ?S40.021A - Contusion of right upper arm, initial encounter (ICD-10) ?S40.022A - Contusion of left upper arm, initial encounter (ICD-10) Anemia ?D64.9 - Anemia, unspecified (ICD-10) Dyspnea ?R06.00 - Dyspnea, unspecified (ICD-10) Femur fracture, left ?S72.92XA - Unspecified fracture of left femur, initial encounter for closed fracture (ICD-10) Protein-calorie malnutrition ?E46 - Unspecified protein-calorie malnutrition (ICD-10) Abnormal posture ?R29.3 - Abnormal posture (ICD-10) Hypertension ?I10 - Essential (primary) hypertension (ICD-10) Morbid obesity ?E66.01 - Morbid (severe) obesity due to excess calories (ICD-10) Insomnia ?G47.00 - Insomnia, unspecified (ICD-10) GERD (gastroesophageal reflux disease) ?K21.9 - Gastro-esophageal reflux disease without esophagitis (ICD-10) Sick sinus syndrome ?I49.5 - Sick sinus syndrome (ICD-10) Atrial fibrillation ?I48.91 - Unspecified atrial fibrillation (ICD-10) Delusional disorder ?F22 - Delusional disorders (ICD-10) Tinea unguium ?B35.1 - Tinea unguium (ICD-10) Kidney failure ?N19 - Unspecified kidney failure (ICD-10) Chronic pain ?G89.29 - Other chronic pain (ICD-10) Hypoxemia ?R09.02 - Hypoxemia (ICD-10) Pulmonary embolism ?I26.99 - Other pulmonary embolism without acute cor pulmonale (ICD-10) Dementia ?F03.90 - Unspecified dementia, unspecified severity, without behavioral disturbance, psychotic disturbance, mood disturbance, and anxiety (ICD-10) Cognitive communication deficit ?R41.841 - Cognitive communication deficit (ICD-10) Osteoarthritis ?M19.90 - Unspecified osteoarthritis, unspecified site (ICD-10) Depression ?F32.A - Depression, unspecified (ICD-10) DNR (do not resuscitate) ?Z66 - Do not resuscitate (ICD-10) Hypothyroid ?E03.9 - Hypothyroidism, unspecified (ICD-10) Pressure ulcer of coccygeal region, stage 2 ?L89.152 - Pressure ulcer of sacral region, stage 2 (ICD-10) Social History Highest level of school completed/degree received: don't know Exam Constitutional Vital Signs, click to edit/add: Last Vital Signs Temp 97.5 F L 12/18/23 03:02 Pulse 116 H 12/18/23 03:46 Resp 23 H 12/18/23 03:46 BP 107/48 L 12/18/23 04:36 Pulse Ox 100 12/18/23 04:36 O2 Del Method Nasal Cannula 12/18/23 03:13 O2 Flow Rate 5 12/18/23 03:13 Common normals: no apparent distress, average body habitus (morbidly obese) and alert HENMT Common normals: normocephalic and head/scalp atraumatic Respiratory Common normals: normal respiratory effort, no retractions, no use of accessory muscles and clear to auscultation bilaterally Cardio Common normals: regular rate, regular rhythm, S1 normal heart sound and S2 normal heart sound GI Common normals: Normal to inspection, nondistended, normoactive bowel sounds present, soft to palpation and non-tender Extremity Other: PICC line RUE large wound vac left lat. thigh Neuro Common normals: moves all extremities (normal use of upper ext. Rigid lower ext but can move her feet some) Sensorium/orientation: awake, alert and oriented to person Other: tremor of both hands Course Vital Signs Vital signs: Vital Signs Blood Pressure 105/44 L 12/18/23 02:54 Temperature 97.5 F L 12/18/23 03:02 Pulse Rate 116 H 12/18/23 03:46 Respiratory Rate 23 H 12/18/23 03:46 Blood Pressure 107/48 L 12/18/23 04:36 Pulse Oximetry 100 12/18/23 04:36 Oxygen Delivery Method Nasal Cannula 12/18/23 03:13 Oxygen Delivery Flow Rate 5 12/18/23 03:13 Medical Decision Making MDM Narrative Medical decision making narrative: patient presents from long term with report of hypoxia. She is 02 dependent. 5L NC 02. Arrived here with [address] and pulse of 97-98%. Arrives in no distress. Alert and pleasant. DNRCC patient. Has PICC line in place right arm and large wound with wound VAC left thigh. cxray with poor inspiratory film and less atelectasis than past cxrays. Basic labs at her baseline. Her BP did decreased during her time in the department and improved after hydration. EKG not reliable as it is all artifact as she has a tremor. patient discharged back to the home. No evidence of hypoxemia during her stay Lab Data Labs: Lab Results 12/18/23 Range/Units 03:10 WBC 6.0 (4.0-11.0) 10^3/uL RBC 3.37 L (4.20-5.40) 10^6/uL Hgb 10.5 L (12.0-16.0) g/dL Hct 35.1 L (36.0-48.0) % MCV 104.2 H (81.0-99.0) fL MCH 31.2 (26.7-34.0) pg MCHC 29.9 (29.9-35.2) g/dL RDW 21.5 H (11.0-15.0) % Plt Count 241 (150-450) 10^3/uL MPV 10.8 (9.5-13.5) fL Neut % (Auto) 73.2 (43.0-75.0) % Lymph % (Auto) 15.9 L (20.5-60.0) % [place] % (Auto) 8.6 (1.7-12.0) % Eos % (Auto) 0.7 L (0.9-7.0) % Baso % (Auto) 0.8 (0.2-2.0) % Neut # (Auto) 4.4 (1.4-6.5) 10^3/uL Lymph # (Auto) 1.0 L (1.2-3.8) 10^3/uL [place] # (Auto) 0.5 (0.3-0.8) 10^3/uL Eos # (Auto) 0.0 (0.0-0.7) 10^3/uL Baso # (Auto) 0.1 (0.0-0.1) 10^3/uL Abs Immat Gran (auto) 0.05 H (0.00-0.03) 10^3/uL Imm/Tot Granulo (auto) 0.8 H (0.0-0.5) % Sodium 142 (136-145) mmol/L Potassium 3.9 (3.5-5.1) mmol/L Chloride 104 (98-107) mmol/L Carbon Dioxide 37.9 H (21.0-32.0) mmol/L Anion Gap 4.0 BUN 19.0 H (7.0-18.0) mg/dL Creatinine 0.92 (0.55-1.02) mg/dL Est GFR ( Amer) >60 (>=60) Est GFR (Non-Af Amer) 59 L (>=60) BUN/Creatinine Ratio 20.7 Glucose 102 (74-106) mg/dL Calcium 7.6 L (8.5-10.1) mg/dL Troponin I High Sens 5.3 (4.0-51.3) pg/mL Imaging Data Chest x-ray: Radiologist's impression: ITS Impressions Chest X-Ray 12/18/23 03:33 IMPRESSION: 1. Low lung volume examination with mild bibasilar infiltrates versus atelectasis; less then previously seen. Electronically authenticated by: JAYNE SAEZ Date: 12/18/2023 04:39 Discharge Plan Discharge Stand Alone Forms: Portal Instructions Chief Complaint: Shortness of Breath/Dyspnea Clinical Impression: Hypotension Patient Disposition: Home, Self-Care Prescriptions / Home Meds: No Action Coricidin HBP Chest Merlin-Cough 10-200 mg capsule 1 tab-cap PO BID PRN (Reason: cough) enoxaparin [Lovenox] 40 mg/0.4 mL syringe 40 mg subcut DAILY hexylresorcinol Lozenge 1 otis mucous membrane DAILY PRN (Reason: sore throat) Triad Wound Dressing Paste 1 applic topical TID Rx Instructions: GLUTEAL FOLD amoxicillin-pot clavulanate 875-125 mg tablet 1 tab PO Q12H Qty: 20 0RF furosemide [Lasix] 40 mg tablet 40 mg PO QAM Qty: 30 11RF atorvastatin 40 mg tablet 40 mg PO QPM ondansetron HCl 4 mg tablet 4 mg PO Q6H PRN (Reason: nausea and vomiting) baclofen 20 mg tablet 20 mg PO QPM levothyroxine 100 mcg tablet 100 mcg PO .ACB folic acid 1 mg tablet 1 mg PO .QD morphine 15 mg tablet extended release 15 mg PO Q8H nystatin 100,000 unit/gram powder 1 applic TOPICAL .QD oxycodone 5 mg tablet 5 mg PO Q6H PRN (Reason: pain) potassium citrate 10 mEq (1,080 mg) tablet extended release 10 meq PO QID sertraline 25 mg tablet 75 mg PO BEDTIME acetaminophen 500 mg capsule 1,000 mg PO Q6H Patient Comments: TID ammonium lactate 12 % lotion 1 applic topical BID PRN (Reason: dry skin) lidocaine [Aspercreme (lidocaine)] 4 % adhesive patch,medicated 1 patch topical DAILY Rx Instructions: may leave on for up to 12 hrs aspirin 81 mg tablet,chewable 81 mg PO DAILY Biofreeze (menthol) 5 % gel 1 ea topical .Q8 PRN (Reason: pain) cholecalciferol (vitamin D3) 1,250 mcg (50,000 unit) capsule 1,250 mcg PO QWEEK loperamide 2 mg capsule 2 mg PO BID PRN (Reason: loose stool) melatonin 3 mg capsule 3 mg PO .QHS polyethylene glycol 3350 [ClearLax] 17 gram/dose powder 17 g PO DAILY PRN (Reason: constipation) Print Language: Nauruan Instructions: Hypotension (ED) Referrals: PRANAV CAMPOS [Primary Care Provider] - 1 week
--- NOTE | 2023-12-18 03:33 | ECG_ITS ---
[facility] Test Date: 2023-12-18 Pat Name: FRANSISCO MENON Department: Room: - Gender: Female Magnetic Locater: : 1945 Requested By: [id number] Order Number: [id number] Reading MD: RDAHA CAIN Measurements Intervals [place] Rate: 94 P: -[id number] [place]: -[address] QRS: 59 QRSD: 130 T: 12 QT: 400 QTc: 452 Interpretive Statements [id number] Atrial fibrillation with aberrant conduction, or ventricular premature complexes 2320 Nonspecific intraventricular conduction delay Baseline artifact present 9150 abnormal ECG Electronically Signed On 12-18-2023 6:52:01 EDT by RADHA CAIN
--- NOTE | 2023-12-18 03:33 | XR_ITS ---
The [address] [address] Patient Name: FRANSISCO MENON MRN: [id number] date: 1945 Sex: F Assigned Patient Location: ER Current Patient Location: ER Accession/Order Number: [id number] Exam Date: 12/18/2023 03:50 Report Date: 12/18/2023 04:39 At the request of: CLAUDIO JENNINGS Procedure: XR chest 1V EXAMINATION: XR chest 1V HISTORY: short of breath COMPARISON: XR chest 12/04/2023 FINDINGS: LUNGS: Underexpanded lungs with mild haziness within medial right lung base and lateral left lung base. VASCULATURE: No increased pulmonary vasculature. PLEURA: No pneumothorax, effusion, or pleural thickening. CARDIAC: No cardiomegaly or cardiac silhouette abnormality. MEDIASTINUM: Prior sternotomy. No suspicious widening. BONES: No fracture or visible bone lesion. OTHER: Negative. XR/XR chest 1V IMPRESSION: 1. Low lung volume examination with mild bibasilar infiltrates versus atelectasis; less then previously seen. Electronically authenticated by: JAYNE SAEZ Date: 12/18/2023 04:39
[2023-12-18] MEDS: 0.9 % SODIUM CHLORIDE 1,000 ML 999 ML IV (04:06)
[2023-12-18 04:24] LABS: Basophils Absolute Auto 0.1 10^3/uL (0.0-0.1); Basophils Percent Auto 0.8 % (0.2-2.0); Eosinophils Percent Auto 0.7 % (0.9-7.0); Hematocrit 35.1 % (36.0-48.0); Hemoglobin 10.5 g/dL (12.0-16.0); Immature Granulocytes Abs Auto 0.05 10^3/uL (0.00-0.03); Immature Granulocytes Pct Auto 0.8 % (0.0-0.5); Lymphocytes Percent Auto 15.9 % (20.5-60.0); Mean Corpuscular HGB Conc 29.9 g/dL (29.9-35.2); Mean Corpuscular Hemoglobin 31.2 pg (26.7-34.0); Mean Corpuscular Volume 104.2 fL (81.0-99.0); Mean Platelet Volume 10.8 fL (9.5-13.5); Monocytes Absolute Auto 0.5 10^3/uL (0.3-0.8); Monocytes Percent Auto 8.6 % (1.7-12.0); Neutrophils Absolute Auto 4.4 10^3/uL (1.4-6.5); Neutrophils Percent Auto 73.2 % (43.0-75.0); Platelet Count 241 10^3/uL (150-450); Red Blood Count 3.37 10^6/uL (4.20-5.40); Red Cell Distribution Width 21.5 % (11.0-15.0)
[2023-12-18 04:42] LABS: Carbon Dioxide 37.9 mmol/L (21.0-32.0); Chloride 104 mmol/L (98-107); Glucose 102 mg/dL (74-106); Potassium 3.9 mmol/L (3.5-5.1); Sodium 142 mmol/L (136-145)
[2023-12-18 04:43] LABS: BUN Creatinine Ratio 20.7; Calcium 7.6 mg/dL (8.5-10.1); Estimated GFR (African America >60 (>=60); Estimated GFR (Non-African Ame 59 (>=60); Troponin I High Sensitivity 5.3 pg/mL (4.0-51.3)
== END 2023-12-18 06:16 | disposition home or self-care (01) ==
PROVIDERS: Emergency Provider Internal Medicine; PCP Family Medicine
DX: I95.9 Hypotension, unspecified (principal); Z66 Do not resuscitate; Z99.81 Dependence on supplemental oxygen
CPT/HCPCS: 36415; 36592; 71045; 80048; 84484; 85025; 93005; 96360; 99285

== ENCOUNTER 2023-12-20 01:50 | Outpatient (REF) | payer MEDICARE, MEDICAID, SELFPAY ==
--- OUTSIDE RECORDS SUMMARY | 2023-12-20 01:53 | XMS_ITS | CCD ---
Author Organization [facility] Care Team Providers Care Informatics Physician Name Role Phone NEPTALI VILLALTA Unavailable Unavailabl e VILLALTANEPTALI CORDOVA Unavailable Unavailabl e BETH, DR ROCK Consulting Unavailable BETH, DR ROCK Admitting Unavailable MISC, DR HANSON Primary Care Unavailable BETH, DR ROCK Attending Unavailable BETH, DR ROCK Attending Unavailable BTEH, DR ROCK Consulting Unavailable MISC, DR HANSON [...] Care Unavailable BETH, DR ROCK Attending Unavailable HORANI, YUE Referring Unavailable OLIMPIA LANDRY Referring Unavailable VELY, AELA Referring Unavailable CLARISSA SHAFFER Referring Unavailable SMITH, KARLA Referring Unavailable KASSANDRA PEREZ Referring Unavailable VELY, AELA Admitting Unavailable VELY, AELA Attending Unavailable DARLENE MOORE Referring Unavailable HORANI, YUE Admitting Unavailable KIRBY, HARSHA Attending Unavailable SMITH, CHRISTOPHER Referring Unavailable KARL DOE Referring Unavailable KARL, DOE Referring Unavailable KIRBY, HARSHA Referring Unavailable DON YUSUF Referring Unavailable VELY, AELA Referring Unavailable VELY, AELA Referring Unavailable SMITH, CHRISTOPHER Referring Unavailable Problems [...] Name Value Interpretation Reference Range Facility 36on 12-18-2023 36 Jasonay, thank you Normal [facility] 36 jail called and stated patient is very ill and would call back when she gets better. Niurka Flores [phone] Normal [facility] 36on 12-11-2023 36 Opat received. Confirmed orders with parviz at [facility]. Confirmed appt 12/17 and labs to be drawn 12/12. Normal [facility] on 12-06-2023 30 [facility] CBC WITH AUTO DIFFERENTIALon 12-06-2023 Erythrocyte distribution width (RBC) [Ratio] 22.8 % High 11.5-15.0 [facility] Comment on above: Performed By: #### L [id number] ####[facility] (BEAKER)[address] [place] [address] ERYTHROCYTE MEAN CORPUSCULAR HEMOGLOBIN CONCENTRATION (G/DL) BY AUTOMATED 29.8 g/dL Low 32.0-35.0 [facility] Comment on above: Performed By: #### L [id number] ####[facility] ([facility])[address] [place] [address] Hematocrit (Bld) [Volume fraction] 30.2 % Low 36.0-48.0 [facility] Comment on above: Performed By: #### L [id number] ####[facility] ([facility])[address] [place] [address] Hemoglobin (Bld) [Mass/Vol] 9.0 g/dL Low 12.0-15.0 [facility] Comment on above: Performed By: #### L [id number] ####[facility] ([facility])[address] [place] [address] MCH (RBC) [Entitic mass] 30.1 pg Normal 27.0-33.0 [facility] Comment on above: Performed By: #### L [id number] ####[facility] ([facility])[address] [place] [address] MCV (RBC) [Entitic vol] 101.0 fL High 82.0-98.0 [facility] Comment on above: Performed By: #### L [id number] ####[facility] ([facility])[address] [place] [address] NRBC (PER 100 WBCS) BY AUTOMATED COUNT 0.0 % Normal 0 [facility] Comment on above: Performed By: #### L [id number] ####[facility] ([facility])[address] [place] [address] PLATELETS (10*3/UL) IN BLOOD AUTOMATED COUNT 285 10*3/uL Normal 150-400 [facility] Comment on above: Performed By: #### L [id number] ####[facility] ([facility])[address] [place] [address] RBC (Bld) [#/Vol] 2.99 10*6/uL Low 3.80-5.00 [facility] Comment on above: Performed By: #### L [id number] ####[facility] ([facility])[address] [place] [address] WBC (Bld) [#/Vol] 6.16 10*3/uL Normal 4.00-10.60 [facility] Comment on above: Performed By: #### L [id number] ####[facility] ([facility])[address] [place] [address] COMPREHENSIVE METABOLIC PANE Frank 12-06-2023 Albumin [Mass/Vol] 1.9 g/dL Low 3.5-5.7 [facility] Comment on above: Performed By: #### L [id number] ####[facility] ([facility])[address] [place] [address] ALP [Catalytic activity/Vol] 85 U/L Normal 34-104 [facility] Comment on above: Performed By: #### L [id number] ####[facility] ([facility])[address] [place] [address] ALT [Catalytic activity/Vol] 7 U/L Normal 7-52 [facility] Comment on above: Performed By: #### L [id number] ####[facility] ([facility])[address] [place] [address] Anion gap [Moles/Vol] 9 mmol/L Normal 7-20 [facility] Comment on above: Performed By: #### L [id number] ####[facility] ([facility])[address] [place] [address] AST [Catalytic activity/Vol] 16 U/L Normal 13-39 [facility] Comment on above: Performed By: #### L [id number] ####[facility] ([facility])[address] [place] [address] Bilirubin [Mass/Vol] 0.7 mg/dL Normal 0.3-1.0 [facility] Comment on above: Performed By: #### L [id number] ####[facility] ([facility])[address] [place] [address] Calcium [Mass/Vol] 6.9 mg/dL Low 8.6-10.3 [facility] Comment on above: Performed By: #### L [id number] ####[facility] ([facility])[address] [place] [address] Chloride [Moles/Vol] 104 mmol/L Normal 98-107 [facility] Comment on above: Performed By: #### L [id number] ####[facility] [place] [address] CO2 [Moles/Vol] 28 mmol/L Normal 21-31 [facility] Comment on above: Performed By: #### L [id number] ####[facility] ([facility])[address] [place] [address] Creatinine [Mass/Vol] 0.66 mg/dL Normal 0.60-1.20 [facility] Comment on above: Performed By: #### L [id number] ####[facility] ([facility])[address] [place] [address] GLOMERULAR FILTRATION RATE ML/MIN/1.73 SQ M.PREDICTED 89.2 mL/min/1.73m*2 Normal >60.0 [facility] Comment on above: Result Comment: [facility]???s estimated glomerular filtration rate (eGFR) will [...] of individuals. Performed By: #### L [id number] ####[facility] [place] [address] Glucose [Mass/Vol] 118 mg/dL High 70-100 [facility] Comment on above: Performed By: #### L [id number] ####[facility] [place] [address] Potassium [Moles/Vol] 4.4 mmol/L Normal 3.5-5.1 [facility] Comment on above: Performed By: #### L [id number] ####[facility] [place] [address] Protein [Mass/Vol] 4.7 g/dL Low 6.0-8.3 [facility] Comment on above: Performed By: #### L [id number] ####[facility] ([facility])[address] [place] [address] Sodium [Moles/Vol] 137 mmol/L Normal 136-145 [facility] Comment on above: Performed By: #### L [id number] ####[facility] ([facility])[address] [place] [address] Urea nitrogen [Mass/Vol] 18 mg/dL Normal 7-25 [facility] Comment on above: Performed By: #### L [id number] ####[facility] ([facility])[address] [place] [address] UREA NITROGEN/CREATININE (MASS RATIO) IN SER/PLAS 27.3 Normal [facility] Comment on above: Performed By: #### L [id number] ####[facility] ([facility])[address] [place] [address] CONSULTon 12-06-2023 CONSULT Normal [facility] DSon 12-06-2023 DS Normal [facility] HEMOGLOBINon 12-06-2023 Hemoglobin (Bld) [Mass/Vol] 7.8 g/dL Low 12.0-15.0 [facility] Comment on above: Performed By: #### L [id number] ####[facility] ([facility])[address] [place] [address] MANUAL DIFFERENTIALon 2023 ANISOCYTOSIS PRESENCE IN BLOOD BY LIGHT MICROSCOPY Moderate Normal [facility] Comment on above: Performed By: #### L [id number] ####[facility] ([facility])[address] [place] [address] BASOPHILS (10*3/UL) IN BLOOD BY CALCULATION 0.02 10*3/uL Normal 0.00-0.20 [facility] Comment on above: Performed By: #### L [id number] ####[facility] ([facility])[address] [place] [address] BASOPHILS/100 LEUKOCYTES IN BLOOD BY AUTOMATED COUNT 0.3 % Normal 0.0-1.0 [facility] Comment on above: Performed By: #### L [id number] ####[facility] ([facility])[address] [place] [address] EOSINOPHILS (10*3/UL) IN BLOOD BY CALCULATION 0.00 10*3/uL Normal 0.00-0.50 [facility] Comment on above: Performed By: #### L [id number] ####[facility] ([facility])[address] [place] [address] EOSINOPHILS/100 LEUKOCYTES IN BLOOD BY AUTOMATED COUNT 0.0 % Normal 0.0-6.0 [facility] Comment on above: Performed By: #### L [id number] ####[facility] ([facility])[address] [place] [address] IMMATURE GRANULOCYTES (10*3/UL) IN BLOOD BY CALCULATION 0.19 10*3/uL Normal 0.00-0.20 [facility] Comment on above: Performed By: #### L [id number] ####[facility] ([facility])[address] [place] [address] IMMATURE GRANULOCYTES/100 LEUKOCYTES IN BLOOD BY AUTOMATED COUNT 3.1 % High 0.0-1.0 [facility] Comment on above: Performed By: #### L [id number] ####[facility] ([facility])[address] [place] [address] LYMPHOCYTES (10*3/UL) IN BLOOD BY CALCULATION 1.03 10*3/uL Low 1.20-4.00 [facility] Comment on above: Performed By: #### L [id number] ####[facility] ([facility])[address] [place] [address] LYMPHOCYTES/100 LEUKOCYTES IN BLOOD BY AUTOMATED COUNT 16.7 % Low 20.0-45.0 [facility] Comment on above: Performed By: #### L [id number] ####[facility] ([facility])[address] [place] [address] MONOCYTES (10*3/UL) IN BLOOD BY CALCUATION 0.47 10*3/uL Normal 0.10-1.00 [facility] Comment on above: Performed By: #### L [id number] ####[facility] ([facility])[address] [place] [address] MONOCYTES/100 LEUKOCYTES IN BLOOD BY AUTOMATED COUNT 7.6 % Normal 5.0-12.0 [facility] Comment on above: Performed By: #### L [id number] ####[facility] ([facility])[address] [place] [address] NEUTROPHILS (10*3/UL) IN BLOOD BY CALCULATION 4.5 10*3/uL Normal 1.6-7.6 [facility] Comment on above: Performed By: #### L [id number] ####[facility] ([facility])[address] [place] [address] NEUTROPHILS/100 LEUKOCYTES IN BLOOD BY AUTOMATED COUNT 72.3 % High 40.0-72.0 [facility] Comment on above: Performed By: #### L [id number] ####[facility] ([facility])[address] [place] [address] POIKILOCYTOSIS (PRESENCE) IN BLOOD BY LIGHT MICROSCOPY Slight Normal [facility] Comment on above: Performed By: #### L [id number] ####[facility] ([facility])[address] [place] [address] POLYCHROMASIA IN BLOOD BY LIGHT MICROSCOPY Slight Normal [facility] Comment on above: Performed By: #### L [id number] ####[facility] ([facility])[address] [place] [address] NURSNOTEon 12-06-2023 NURSNOTE Report given to Nikki gallardo of [place] at [phone]. Report accepted and questions answered. [facility] NURSNOTE Called to place a midline. Pt is getting Meropenum for 13 days. According to our chart that is a PICC line. Dr. Rodriguez ordered a midline and is comfortable with this choice. [facility] 30on 12-05-2023 30 Normal [facility] ANESon 12-05-2023 ANES Normal [facility] BASIC METABOLIC PANELon 11-13 Anion gap [Moles/Vol] 7 mmol/L Normal 7-20 [facility] Comment on above: Performed By: #### L [id number] ####[facility] [place] [address] Calcium [Mass/Vol] 6.7 mg/dL Low 8.6-10.3 [facility] Comment on above: Performed By: #### L [id number] ####[facility] [place] [address] Chloride [Moles/Vol] 103 mmol/L Normal 98-107 [facility] Comment on above: Performed By: #### L [id number] ####[facility] ([facility])[address] [place] [address] CO2 [Moles/Vol] 32 mmol/L High 21-31 [facility] Comment on above: Performed By: #### L [id number] ####[facility] ([facility])[address] [place] [address] Creatinine [Mass/Vol] 0.73 mg/dL Normal 0.60-1.20 [facility] Comment on above: Performed By: #### L [id number] ####[facility] ([facility])[address] [facility] [place] [address] GLOMERULAR FILTRATION RATE ML/MIN/1.73 SQ M.PREDICTED 83.6 mL/min/1.73m*2 Normal >60.0 [facility] Comment on above: Result Comment: [facility]???s estimated glomerular filtration rate (eGFR) will [...] of individuals. Performed By: #### L [id number] ####[facility] ([facility])[address] [place] [address] Glucose [Mass/Vol] 173 mg/dL High 70-100 [facility] Comment on above: Performed By: #### L [id number] ####[facility] ([facility])[address] [place] [address] Potassium [Moles/Vol] 4.2 mmol/L Normal 3.5-5.1 [facility] Comment on above: Performed By: #### L [id number] ####[facility] ([facility])[address] [place] [address] Sodium [Moles/Vol] 138 mmol/L Normal 136-145 [facility] Comment on above: Performed By: #### L [id number] ####[facility] ([facility])[address] [place] [address] Urea nitrogen [Mass/Vol] 19 mg/dL Normal 7-25 [facility] Comment on above: Performed By: #### L [id number] ####[facility] ([facility])[address] [place] [address] UREA NITROGEN/CREATININE (MASS RATIO) IN SER/PLAS 26.0 [facility] Comment on above: Performed By: #### L [id number] ####[facility] ([facility])[address] [place] [address] BLOOD CULTUREon 12-05-2023 Bacteria identified Cx Nom (Bld) No growth at 5 days Normal [facility] Comment on above: Order Comment: From a different site than #1. Performed By: #### L [id number] ####[facility] ([facility])[address] [place] [address] CONSULTon 12-05-2023 CONSULT Normal [facility] CONSULT Normal [facility] HEMOGLOBIN AND HEMATOCRIT, B LOODon 12-05-2023 Hematocrit (Bld) [Volume fraction] 26.2 % Low 36.0-48.0 [facility] Comment on above: Performed By: #### L [id number] ####[facility] ([facility])[address] [place] [address] Hemoglobin (Bld) [Mass/Vol] 7.3 g/dL Low 12.0-15.0 [facility] Comment on above: Performed By: #### L [id number] ####[facility] ([facility])[address] [place] [address] MAGNESIUMon 12-05-2023 Magnesium [Mass/Vol] 1.6 mg/dL Low 1.9-2.7 [facility] Comment on above: Performed By: #### L [id number] ####[facility] ([facility])[address] [place] [address] MRSA/MSSA DNA NASALon 2023 MRSA DNA Negative Normal Negative [facility] Comment on above: Order Comment: Lamin [...] preclude nasal colonization. Performed By: #### L [id number] ####[facility] ([facility])[address] [place] [address] MSSA DNA Negative Normal Negative [facility] Comment on above: Order Comment: Lamin [...] preclude nasal colonization. Performed By: #### L [id number] ####[facility] ([facility])[address] [place] [address] NURSNOTEon 12-05-2023 NURSNOTE Normal [facility] OPNOTEon 12-05-2023 OPNOTE Normal [facility] POCT GLUCOSE METER UNSOLICIT ED RESULTSon 12-05-2023 Glucose [Mass/Vol] 76 mg/dL Normal 70-105 [facility] Comment on above: Order Comment: Waive d Testing in the ED is performed under the ED CLIA certificate #[id number]. Result Comment: [facility] Performed By: #### L [id number] ####[facility] ([facility])[address] [place] [address] TROPONIN Ion 12-05-2023 Troponin I.cardiac [Mass/Vol] 0.01 ng/mL Normal 0.00-0.04 [facility] Comment on above: Performed By: #### L [id number] ####[facility] ([facility])[address] [place] [address] ANESon 12-04-2023 ANES Normal [facility] APTTon 12-04-2023 ACTIVATED PARTIAL THROMBOPLASTIN TIME IN PPP BY COAGULATION ASSAY 33.8 Seconds Normal 25.0-35.0 [facility] Comment on above: Result Comment: Clin ical significance of the APTT is questionable in the presence of heparin. Performed By: #### L [id number] ####[facility] ([facility])[address] [place] [address] BASIC METABOLIC PANELon 11-13 Anion gap [Moles/Vol] 9 mmol/L Normal 7-20 [facility] Comment on above: Performed By: #### L [id number] ####[facility] ([facility])[address] [place] [address] Calcium [Mass/Vol] 6.9 mg/dL Low 8.6-10.3 [facility] Comment on above: Performed By: #### L [id number] ####[facility] ([facility])[address] [place] [address] Chloride [Moles/Vol] 102 mmol/L Normal 98-107 [facility] Comment on above: Performed By: #### L [id number] ####[facility] [place] [address] CO2 [Moles/Vol] 32 mmol/L High 21-31 [facility] Comment on above: Performed By: #### L [id number] ####[facility] ([facility])[address] [place] [address] Creatinine [Mass/Vol] 0.66 mg/dL Normal 0.60-1.20 [facility] Comment on above: Performed By: #### L [id number] ####[facility] ([facility])[address] [place] [address] GLOMERULAR FILTRATION RATE ML/MIN/1.73 SQ M.PREDICTED 89.2 mL/min/1.73m*2 Normal >60.0 [facility] Comment on above: Result Comment: [facility]???s estimated glomerular filtration rate (eGFR) will [...] of individuals. Performed By: #### L [id number] ####[facility] [place] [address] Glucose [Mass/Vol] 95 mg/dL Normal 70-100 [facility] Comment on above: Performed By: #### L [id number] ####[facility] ([facility])[address] [place] [address] Potassium [Moles/Vol] 4.1 mmol/L Normal 3.5-5.1 [facility] Comment on above: Performed By: #### L [id number] ####[facility] [place] [address] Sodium [Moles/Vol] 139 mmol/L Normal 136-145 [facility] Comment on above: Performed By: #### L [id number] ####[facility] [place] [address] Urea nitrogen [Mass/Vol] 21 mg/dL Normal 7-25 [facility] Comment on above: Performed By: #### L [id number] ####[facility] ([facility])[address] [place] [address] UREA NITROGEN/CREATININE (MASS RATIO) IN SER/PLAS 31.8 Normal [facility] Comment on above: Performed By: #### L [id number] ####[facility] ([facility])[address] [place] [address] C-REACTIVE PROTEINon 024 C REACTIVE PROTEIN (MG/L) IN SER/PLAS 55.8 mg/L High 0.0-7.0 [facility] Comment on above: Performed By: #### L [id number] ####[facility] ([facility])[address] [place] [address] CBC WITH AUTO DIFFERENTIALon 12-04-2023 Erythrocyte distribution width (RBC) [Ratio] 23.4 % High 11.5-15.0 [facility] Comment on above: Performed By: #### L [id number] ####[facility] [place] [address] ERYTHROCYTE MEAN CORPUSCULAR HEMOGLOBIN CONCENTRATION (G/DL) BY AUTOMATED 28.7 g/dL Low 32.0-35.0 [facility] Comment on above: Performed By: #### L [id number] ####[facility] [place] [address] Hematocrit (Bld) [Volume fraction] 31.0 % Low 36.0-48.0 [facility] Comment on above: Performed By: #### L [id number] ####[facility] ([facility])[address] [place] [address] Hemoglobin (Bld) [Mass/Vol] 8.9 g/dL Low 12.0-15.0 [facility] Comment on above: Performed By: #### L [id number] ####[facility] ([facility])[address] [place] [address] MCH (RBC) [Entitic mass] 29.3 pg Normal 27.0-33.0 [facility] Comment on above: Performed By: #### L [id number] ####[facility] ([facility])[address] [place] [address] MCV (RBC) [Entitic vol] 102.0 fL High 82.0-98.0 [facility] Comment on above: Performed By: #### L [id number] ####[facility] ([facility])[address] [place] [address] NRBC (PER 100 WBCS) BY AUTOMATED COUNT 0.0 % Normal 0 [facility] Comment on above: Performed By: #### L [id number] ####[facility] ([facility])[address] [place] [address] PLATELETS (10*3/UL) IN BLOOD AUTOMATED COUNT 328 10*3/uL Normal 150-400 [facility] Comment on above: Performed By: #### L [id number] ####[facility] ([facility])[address] [place] [address] RBC (Bld) [#/Vol] 3.04 10*6/uL Low 3.80-5.00 [facility] Comment on above: Performed By: #### L [id number] ####[facility] ([facility])[address] [place] [address] WBC (Bld) [#/Vol] 5.47 10*3/uL Normal 4.00-10.60 [facility] Comment on above: Performed By: #### L [id number] ####[facility] ([facility])[address] [place] [address] CONSULTon 12-04-2023 CONSULT Normal [facility] EDNURSon 12-04-2023 EDNURS Normal [facility] EDPROVon 12-04-2023 EDPROV Normal [facility] HPon 12-04-2023 HP Normal [facility] MANUAL DIFFERENTIALon 2023 ANISOCYTOSIS PRESENCE IN BLOOD BY LIGHT MICROSCOPY Moderate Normal [facility] Comment on above: Performed By: #### L [id number] ####[facility] ([facility] [place])[address] [place] [address] BASOPHILS (10*3/UL) IN BLOOD BY CALCULATION 0.02 10*3/uL Normal 0.00-0.20 [facility] Comment on above: Performed By: #### L [id number] ####[facility] ([facility] [place])[address] [place] [address] BASOPHILS/100 LEUKOCYTES IN BLOOD BY AUTOMATED COUNT 0.4 % Normal 0.0-1.0 [facility] Comment on above: Performed By: #### L [id number] ####[facility] ([facility] [place])[address] [place] [address] EOSINOPHILS (10*3/UL) IN BLOOD BY CALCULATION 0.00 10*3/uL Normal 0.00-0.50 [facility] Comment on above: Performed By: #### L [id number] ####[facility] ([facility] [place])[address] [place] [address] EOSINOPHILS/100 LEUKOCYTES IN BLOOD BY AUTOMATED COUNT 0.0 % Normal 0.0-6.0 [facility] Comment on above: Performed By: #### L [id number] ####[facility] ([facility], [place] [place] [address] HYPOCHROMIA (PRESENCE) IN BLOOD BY LIGHT MICROSCOPY Moderate Normal [facility] Comment on above: Performed By: #### L [id number] ####[facility] (BEAK[facility])[address] [place] [address] IMMATURE GRANULOCYTES (10*3/UL) IN BLOOD BY CALCULATION 0.08 10*3/uL Normal 0.00-0.20 [facility] Comment on above: Performed By: #### L [id number] ####[facility] ([facility] [place] [place] [address] IMMATURE GRANULOCYTES/100 LEUKOCYTES IN BLOOD BY AUTOMATED COUNT 1.5 % High 0.0-1.0 [facility] Comment on above: Performed By: #### L [id number] ####[facility] ([facility] [place])[address] [place] [address] LYMPHOCYTES (10*3/UL) IN BLOOD BY CALCULATION 0.83 10*3/uL Low 1.20-4.00 [facility] Comment on above: Performed By: #### L [id number] ####[facility] ([facility] [place])[address] [place] [address] LYMPHOCYTES/100 LEUKOCYTES IN BLOOD BY AUTOMATED COUNT 15.2 % Low 20.0-45.0 [facility] Comment on above: Performed By: #### L [id number] ####[facility] ([facility] [place])[address] [place] [address] MONOCYTES (10*3/UL) IN BLOOD BY CALCUATION 0.45 10*3/uL Normal 0.10-1.00 [facility] Comment on above: Performed By: #### L [id number] ####[facility] (AKER)[address] [place] [address] MONOCYTES/100 LEUKOCYTES IN BLOOD BY AUTOMATED COUNT 8.2 % Normal 5.0-12.0 [facility] Comment on above: Performed By: #### L [id number] ####[facility] ([facility] [place])[address] [place] [address] NEUTROPHILS (10*3/UL) IN BLOOD BY CALCULATION 4.1 10*3/uL Normal 1.6-7.6 [facility] Comment on above: Performed By: #### L [id number] ####[facility] ([facility])[address] [place] [address] NEUTROPHILS/100 LEUKOCYTES IN BLOOD BY AUTOMATED COUNT 74.7 % High 40.0-72.0 [facility] Comment on above: Performed By: #### L [id number] ####[facility] ([facility])[address] [place] [address] POIKILOCYTOSIS (PRESENCE) IN BLOOD BY LIGHT MICROSCOPY Slight Normal [facility] Comment on above: Performed By: #### L [id number] ####[facility] ([facility])[address] [facility] [place] [address] POLYCHROMASIA IN BLOOD BY LIGHT MICROSCOPY Slight Normal [facility] Comment on above: Performed By: #### L [id number] ####[facility] (JOSEPH)[address] [facility] [place] [address] PROTIME-INRon 12-04-2023 INR IN PPP BY COAGULATION ASSAY 1.58 High 0.90-1.10 [facility] Comment on above: Result Comment: ACCC [...] CHEST 1995;108:231S-246S. Performed By: #### L [id number] ####[facility] ([email or web address])[address] [place] [address] PROTHROMBIN TIME (PT) IN PPP BY COAGULATION ASSAY 18.6 Seconds High 12.3-14.8 [facility] Comment on above: Performed By: #### L [id number] ####[facility] ([facility]ER)[address] [place] [address] SEDIMENTATION RATEon 024 SEDIMENTATION RATE, ERYTHROCYTE 85 mm/hr High <=20 [facility] Comment on above: Performed By: #### L [id number] ####[facility] ([facility])[address] [place] [address] TYPE AND SCREENon 12-04-2023 AB SCREEN Negative Normal [facility] Comment on above: Order Comment: Add o n Performed By: #### L [id number] ####[facility], ABO group Nom (Bld) O Normal [facility] Comment on above: Order Comment: Add o n Performed By: #### L [id number] ####[facility], RH TYPE IN BLOOD Positive Normal [facility] Comment on above: Order Comment: Add o n Performed By: #### L [id number] ####[facility], 36on 12-01-2023 36 [facility] 36 ANYA PBX INSPECTOR- [phone] PLEASE GIVE ANYA A CALL BACK REGARDING POST OP PROTOCAL , UNBALE TO MAKE POST OP APPOINTMENTS HERE AT [facility] 36on 11-23-2023 36 [facility] Telephoneon 11-23-2023 Telephone [facility] 30on 11-22-2023 30 [facility] BASIC METABOLIC PANELon 11-12 Anion gap [Moles/Vol] 8 mmol/L Normal 7-20 [facility] Comment on above: Performed By: #### L [id number] ####[facility] (BEAKER)[address] [place] [address] Calcium [Mass/Vol] 6.7 mg/dL Low 8.6-10.3 [facility] Comment on above: Performed By: #### L [id number] ####[facility] (BE[facility]ER)[address] [place] [address] Chloride [Moles/Vol] 106 mmol/L Normal 98-107 [facility] Comment on above: Performed By: #### L [id number] ####[facility] (BEAKER)[address] [place] [address] CO2 [Moles/Vol] 29 mmol/L Normal 21-31 [facility] Comment on above: Performed By: #### L [id number] ####[facility] (BEAKER)[address] [place] [address] Creatinine [Mass/Vol] 0.84 mg/dL Normal 0.60-1.20 [facility] Comment on above: Performed By: #### L [id number] ####[facility] [place] [address] GLOMERULAR FILTRATION RATE ML/MIN/1.73 SQ M.PREDICTED 70.6 mL/min/1.73m*2 Normal >60.0 [facility] Comment on above: Result Comment: [facility]???s estimated glomerular filtration rate (eGFR) will [...] of individuals. Performed By: #### L [id number] ####[facility] (BEAK[facility])[address] [place] [address] Glucose [Mass/Vol] 87 mg/dL Normal 70-100 [facility] Comment on above: Performed By: #### L [id number] ####[facility] (BEAKER)[address] [place] [address] Potassium [Moles/Vol] 4.2 mmol/L Normal 3.5-5.1 [facility] Comment on above: Performed By: #### L [id number] ####[facility] (BEAKER)[address] [place] [address] Sodium [Moles/Vol] 139 mmol/L Normal 136-145 [facility] Comment on above: Performed By: #### L [id number] ####[facility] [place] [address] Urea nitrogen [Mass/Vol] 34 mg/dL High 7-25 [facility] Comment on above: Performed By: #### L [id number] ####[facility] ([facility] [place])[address] [place] [address] UREA NITROGEN/CREATININE (MASS RATIO) IN SER/PLAS 40.5 Normal [facility] Comment on above: Performed By: #### L [id number] ####[facility] [place] [address] CBC WITH AUTO DIFFERENTIALon 11-22-2023 Erythrocyte distribution width (RBC) [Ratio] 22.2 % High 11.5-15.0 [facility] Comment on above: Performed By: #### L [id number] ####[facility] [place] [address] ERYTHROCYTE MEAN CORPUSCULAR HEMOGLOBIN CONCENTRATION (G/DL) BY AUTOMATED 31.5 g/dL Low 32.0-35.0 [facility] Comment on above: Performed By: #### L [id number] ####[facility] [place] [address] Hematocrit (Bld) [Volume fraction] 26.0 % Low 36.0-48.0 [facility] Comment on above: Performed By: #### L [id number] ####[facility] (BE[facility])[address] [place] [address] Hemoglobin (Bld) [Mass/Vol] 8.2 g/dL Low 12.0-15.0 [facility] Comment on above: Performed By: #### L [id number] ####[facility] [place] [address] MCH (RBC) [Entitic mass] 30.4 pg Normal 27.0-33.0 [facility] Comment on above: Performed By: #### L [id number] ####[facility] ([facility] [place])[address] [place] [address] MCV (RBC) [Entitic vol] 96.3 fL Normal 82.0-98.0 [facility] Comment on above: Performed By: #### L [id number] ####[facility] ([facility] [place])[address] [place] [address] NRBC (PER 100 WBCS) BY AUTOMATED COUNT 2.0 % High 0 [facility] Comment on above: Performed By: #### L [id number] ####[facility] ([facility] [place])[address] [place] [address] PLATELETS (10*3/UL) IN BLOOD AUTOMATED COUNT 136 10*3/uL Low 150-400 [facility] Comment on above: Performed By: #### L [id number] ####[facility] ([facility] [place])[address] [place] [address] RBC (Bld) [#/Vol] 2.70 10*6/uL Low 3.80-5.00 [facility] Comment on above: Performed By: #### L [id number] ####[facility] ([facility] [place])[address] [place] [address] WBC (Bld) [#/Vol] 10.20 10*3/uL Normal 4.00-10.60 [facility] Comment on above: Performed By: #### L [id number] ####[facility] ([facility] [place])[address] [place] [address] CONSULTon 11-22-2023 CONSULT Normal [facility] MAGNESIUMon 11-22-2023 Magnesium [Mass/Vol] 2.0 mg/dL Normal 1.9-2.7 [facility] Comment on above: Performed By: #### L [id number] ####[facility] ([facility] [place])[address] [place] [address] MANUAL DIFFERENTIALon 2023 ANISOCYTOSIS PRESENCE IN BLOOD BY LIGHT MICROSCOPY Moderate Normal [facility] Comment on above: Performed By: #### L [id number] ####[facility] ([facility] [place])[address] [place] [address] BASOPHILS (10*3/UL) IN BLOOD BY CALCULATION 0.00 10*3/uL Normal 0.00-0.20 [facility] Comment on above: Performed By: #### L [id number] ####[facility] ([facility] [place])[address] [place] [address] BASOPHILS/100 LEUKOCYTES IN BLOOD BY AUTOMATED COUNT 0.0 % Normal 0.0-1.0 [facility] Comment on above: Performed By: #### L [id number] ####[facility] ([facility] [place])[address] [place] [address] EOSINOPHILS (10*3/UL) IN BLOOD BY CALCULATION 0.00 10*3/uL Normal 0.00-0.50 [facility] Comment on above: Performed By: #### L [id number] ####[facility] ([facility] [place])[address] [place] [address] EOSINOPHILS/100 LEUKOCYTES IN BLOOD BY AUTOMATED COUNT 0.0 % Normal 0.0-6.0 [facility] Comment on above: Performed By: #### L [id number] ####[facility] ([facility] [place])[address] [place] [address] LYMPHOCYTES (10*3/UL) IN BLOOD BY CALCULATION 1.55 10*3/uL Normal 1.20-4.00 [facility] Comment on above: Performed By: #### L [id number] ####[facility] ([facility] [place])[address] [place] [address] LYMPHOCYTES/100 LEUKOCYTES IN BLOOD BY AUTOMATED COUNT 15.2 % Low 20.0-45.0 [facility] Comment on above: Performed By: #### L [id number] ####[facility] ([facility] [place])[address] [place] [address] MACROCYTES (PRESENCE) IN BLOOD BY LIGHT MICROSCOPY Slight Normal [facility] Comment on above: Performed By: #### L [id number] ####[facility] ([facility] [place])[address] [place] [address] METAMYELOCYTES (10*3/UL) IN BLOOD BY CALCULATION 0.70 10*3/uL High 0.00 [facility] Comment on above: Performed By: #### L [id number] ####[facility] ([facility] [place])[address] [place] [address] METAMYELOCYTES/100 LEUKOCYTES IN BLOOD CELLAVISION 6.9 % High 0.0-0.0 [facility] Comment on above: Performed By: #### L [id number] ####[facility] ([facility] [place])[address] [place] [address] MONOCYTES (10*3/UL) IN BLOOD BY CALCUATION 0.29 10*3/uL Normal 0.10-1.00 [facility] Comment on above: Performed By: #### L [id number] ####[facility] ([facility] [place])[address] [place] [address] MONOCYTES/100 LEUKOCYTES IN BLOOD BY AUTOMATED COUNT 2.8 % Low 5.0-12.0 [facility] Comment on above: Performed By: #### L [id number] ####[facility] ([facility] [place])[address] [place] [address] MYELOCYTES (10*3/UL) IN BLOOD BY CALCULATION 0.49 10*3/uL High 0.00 [facility] Comment on above: Performed By: #### L [id number] ####[facility] ([facility] [place])[address] [place] [address] MYELOCYTES/100 LEUKOCYTES IN BLOOD CELLAVISION 4.8 % High 0.0-0.0 [facility] Comment on above: Performed By: #### L [id number] ####[facility] ([facility] [place])[address] [place] [address] NEUTROPHILS (10*3/UL) IN BLOOD BY CALCULATION 7.1 10*3/uL Normal 1.6-7.6 [facility] Comment on above: Performed By: #### L [id number] ####[facility] ([facility] [place])[address] [place] [address] NEUTROPHILS/100 LEUKOCYTES IN BLOOD BY AUTOMATED COUNT 69.6 % Normal 40.0-72.0 [facility] Comment on above: Performed By: #### L [id number] ####[facility] ([facility] [place])[address] [place] [address] NUCLEATED RED BLOOD CELLS IN BLOOD BY LIGHT MICROSCOPY Present Normal [facility] Comment on above: Performed By: #### L [id number] ####[facility] ([facility] [place])[address] [place] [address] PLASMA CELLS/100 LEUKOCYTES IN BLOOD 0 % Normal 0 [facility] Comment on above: Performed By: #### L [id number] ####[facility] ([facility] [place])[address] [place] [address] PLATELETS GIANT PRESENCE IN BLOOD BY LIGHT MICROSCOPY Present Normal [facility] Comment on above: Performed By: #### L [id number] ####[facility] ([facility] [place])[address] [place] [address] POIKILOCYTOSIS (PRESENCE) IN BLOOD BY LIGHT MICROSCOPY Slight Normal [facility] Comment on above: Performed By: #### L [id number] ####[facility] ([facility] [place])[address] [place] [address] POLYCHROMASIA IN BLOOD BY LIGHT MICROSCOPY Slight Normal [facility] Comment on above: Performed By: #### L [id number] ####[facility] ([facility] [place])[address] [place] [address] PROMYELOCYTES (10*3/UL) IN BLOOD BY CALCULATION 0.07 10*3/uL High 0.00 [facility] Comment on above: Performed By: #### L [id number] ####[facility] ([facility] [place] [place] [address] PROMYELOCYTES/100 LEUKOCYTES IN BLOOD CELLAVISION 0.7 % High 0.0-0.0 [facility] Comment on above: Performed By: #### L [id number] ####[facility] ([facility] [place])[address] [place] [address] VARIANT LYMPHOCYTES (10*3/UL) IN BLOOD BY CALCULATION 0.00 10*3/uL Normal 0.00 [facility] Comment on above: Performed By: #### L [id number] ####[facility] ([facility] [place] [facility] [place] [address] VARIANT LYMPHOCYTES/100 LEUKOCYTES IN BLOOD CELLAVISION 0.0 % Normal 0.0-0.0 [facility] Comment on above: Performed By: #### L [id number] ####[facility] ([facility] [place])[address] [place] [address] NURSNOTEon 11-22-2023 NURSNOTE Report given to ms rojas from [facility]. Two rings found inside patient's chart are placed back onto patient's fingers. Patient aware of the rings back on her finger. Normal [facility] PHOSPHORUSon 11-22-2023 Magnesium [Mass/Vol] 2.3 mg/dL Low 2.5-5.0 [facility] Comment on above: Performed By: #### L [id number] ####[facility] ([facility] [place] [place] [address] PROTIME-INRon 11-22-2023 INR IN PPP BY COAGULATION ASSAY 1.22 High 0.90-1.10 [facility] Comment on above: Result Comment: ACCC [...] CHEST 1995;108:231S-246S. Performed By: #### L [id number] ####[facility] ([facility] [place])[address] [place] [address] PROTHROMBIN TIME (PT) IN PPP BY COAGULATION ASSAY 15.5 Seconds High 12.3-14.8 [facility] Comment on above: Performed By: #### L [id number] ####[facility] ([facility] [place])[address] [place] [address] BASIC METABOLIC PANELon 07-0 Anion gap [Moles/Vol] 10 mmol/L Normal 7-20 [facility] Comment on above: Performed By: #### L [id number] ####[facility] ([facility] [place])[address] [place] [address] Calcium [Mass/Vol] 7.4 mg/dL Low 8.6-10.3 [facility] Comment on above: Performed By: #### L [id number] ####[facility] ([facility] [place] [place] [address] Chloride [Moles/Vol] 104 mmol/L Normal 98-107 [facility] Comment on above: Performed By: #### L [id number] ####[facility] [place] [address] CO2 [Moles/Vol] 30 mmol/L Normal 21-31 [facility] Comment on above: Performed By: #### L [id number] ####[facility] ([facility] [place] [place] [address] Creatinine [Mass/Vol] 1.21 mg/dL High 0.60-1.20 [facility] Comment on above: Performed By: #### L [id number] ####[facility] ([facility] [place])[address] [place] [address] GLOMERULAR FILTRATION RATE ML/MIN/1.73 SQ M.PREDICTED 45.6 mL/min/1.73m*2 Low >60.0 [facility] Comment on above: Result Comment: [facility]???s estimated glomerular filtration rate (eGFR) will [...] of individuals. Performed By: #### L [id number] ####[facility] ([facility] [place])[address] [place] [address] Glucose [Mass/Vol] 101 mg/dL High 70-100 [facility] Comment on above: Performed By: #### L [id number] ####[facility] ([facility] [place])[address] [place] [address] Potassium [Moles/Vol] 4.1 mmol/L Normal 3.5-5.1 [facility] Comment on above: Performed By: #### L [id number] ####[facility] ([facility] [place])[address] [place] [address] Sodium [Moles/Vol] 140 mmol/L Normal 136-145 [facility] Comment on above: Performed By: #### L [id number] ####[facility] ([facility] [place])[address] [place] [address] Urea nitrogen [Mass/Vol] 41 mg/dL High 7-25 [facility] Comment on above: Performed By: #### L [id number] ####[facility] [place] [address] UREA NITROGEN/CREATININE (MASS RATIO) IN SER/PLAS 33.9 Normal [facility] Comment on above: Performed By: #### L [id number] ####[facility] ([facility] [place])[address] [place] [address] CBC WITH AUTO DIFFERENTIALon 11-21-2023 Erythrocyte distribution width (RBC) [Ratio] 19.1 % High 11.5-15.0 [facility] Comment on above: Performed By: #### L [id number] ####[facility] ([facility] [place])[address] [place] [address] ERYTHROCYTE MEAN CORPUSCULAR HEMOGLOBIN CONCENTRATION (G/DL) BY AUTOMATED 32.3 g/dL Normal 32.0-35.0 [facility] Comment on above: Performed By: #### L [id number] ####[facility] ([facility] [place] [place] [address] Hematocrit (Bld) [Volume fraction] 25.7 % Low 36.0-48.0 [facility] Comment on above: Performed By: #### L [id number] ####[facility] ([facility] [place] [place] [address] Hemoglobin (Bld) [Mass/Vol] 8.3 g/dL Low 12.0-15.0 [facility] Comment on above: Performed By: #### L [id number] ####[facility] ([facility] [place])[address] [place] [address] MCH (RBC) [Entitic mass] 29.7 pg Normal 27.0-33.0 [facility] Comment on above: Performed By: #### L [id number] ####[facility] [place] [address] MCV (RBC) [Entitic vol] 92.1 fL Normal 82.0-98.0 [facility] Comment on above: Performed By: #### L [id number] ####[facility] [place] [address] NRBC (PER 100 WBCS) BY AUTOMATED COUNT 8.1 % High 0 [facility] Comment on above: Performed By: #### L [id number] ####[facility] ([facility] [place] [place] [address] PLATELETS (10*3/UL) IN BLOOD AUTOMATED COUNT 134 10*3/uL Low 150-400 [facility] Comment on above: Performed By: #### L [id number] ####[facility] ([facility] [place] [place] [address] RBC (Bld) [#/Vol] 2.79 10*6/uL Low 3.80-5.00 [facility] Comment on above: Performed By: #### L [id number] ####[facility] ([facility] [place] [place] [address] WBC (Bld) [#/Vol] 13.21 10*3/uL High 4.00-10.60 [facility] Comment on above: Performed By: #### L [id number] ####[facility] ([facility] [place] [place] [address] HEMOGLOBIN AND HEMATOCRIT, B LOODon 11-21-2023 Hematocrit (Bld) [Volume fraction] 25.9 % Low 36.0-48.0 [facility] Comment on above: Performed By: #### L [id number] ####[facility] [place] [address] Hemoglobin (Bld) [Mass/Vol] 8.3 g/dL Low 12.0-15.0 [facility] Comment on above: Performed By: #### L [id number] ####[facility] [place] [address] MAGNESIUMon 11-21-2023 Magnesium [Mass/Vol] 2.1 mg/dL Normal 1.9-2.7 [facility] Comment on above: Performed By: #### L [id number] ####[facility] [place] [address] MANUAL DIFFERENTIALon 2023 BASOPHILS (10*3/UL) IN BLOOD BY CALCULATION 0.00 10*3/uL Normal 0.00-0.20 [facility] Comment on above: Performed By: #### L [id number] ####[facility] ([facility] [place] [place] [address] BASOPHILS/100 LEUKOCYTES IN BLOOD BY AUTOMATED COUNT 0.0 % Normal 0.0-1.0 [facility] Comment on above: Performed By: #### L [id number] ####[facility] ([facility] [place] [place] [address] EOSINOPHILS (10*3/UL) IN BLOOD BY CALCULATION 0.09 10*3/uL Normal 0.00-0.50 [facility] Comment on above: Performed By: #### L [id number] ####[facility] ([facility] [place])[address] [place] [address] EOSINOPHILS/100 LEUKOCYTES IN BLOOD BY AUTOMATED COUNT 0.7 % Normal 0.0-6.0 [facility] Comment on above: Performed By: #### L [id number] ####[facility] ([facility] [place])[address] [place] [address] LYMPHOCYTES (10*3/UL) IN BLOOD BY CALCULATION 1.27 10*3/uL Normal 1.20-4.00 [facility] Comment on above: Performed By: #### L [id number] ####[facility] ([facility] [place])[address] [address] LYMPHOCYTES/100 LEUKOCYTES IN BLOOD BY AUTOMATED COUNT 9.6 % Low 20.0-45.0 [facility] Comment on above: Performed By: #### L [id number] ####[facility] ([facility] [place])[address] [place] [address] METAMYELOCYTES (10*3/UL) IN BLOOD BY CALCULATION 0.45 10*3/uL High 0.00 [facility] Comment on above: Performed By: #### L [id number] ####[facility] ([facility] [place])[address] [place] [address] METAMYELOCYTES/100 LEUKOCYTES IN BLOOD CELLAVISION 3.4 % High 0.0-0.0 [facility] Comment on above: Performed By: #### L [id number] ####[facility] ([facility] [place])[address] [place] [address] MONOCYTES (10*3/UL) IN BLOOD BY CALCUATION 0.63 10*3/uL Normal 0.10-1.00 [facility] Comment on above: Performed By: #### L [id number] ####[facility] ([facility] [place])[address] [place] [address] MONOCYTES/100 LEUKOCYTES IN BLOOD BY AUTOMATED COUNT 4.8 % Low 5.0-12.0 [facility] Comment on above: Performed By: #### L [id number] ####[facility] ([facility] [place])[address] [place] [address] MYELOCYTES (10*3/UL) IN BLOOD BY CALCULATION 0.81 10*3/uL High 0.00 [facility] Comment on above: Performed By: #### L [id number] ####[facility] ([facility] [place])[address], [place] [address] MYELOCYTES/100 LEUKOCYTES IN BLOOD CELLAVISION 6.1 % High 0.0-0.0 [facility] Comment on above: Performed By: #### L [id number] ####[facility] ([facility])[address] [place] [address] NEUTROPHILS (10*3/UL) IN BLOOD BY CALCULATION 9.8 10*3/uL High 1.6-7.6 [facility] Comment on above: Performed By: #### L [id number] ####[facility] ([facility])[address] [place] [address] NEUTROPHILS/100 LEUKOCYTES IN BLOOD BY AUTOMATED COUNT 74.0 % High 40.0-72.0 [facility] Comment on above: Performed By: #### L [id number] ####[facility] ([facility])[address] [place] [address] NUCLEATED RED BLOOD CELLS IN BLOOD BY LIGHT MICROSCOPY Present Normal [facility] Comment on above: Performed By: #### L [id number] ####[facility] ([facility])[address] [place] [address] PLASMA CELLS/100 LEUKOCYTES IN BLOOD 0 % Normal 0 [facility] Comment on above: Performed By: #### L [id number] ####[facility] ([facility])[address] [place] [address] PROMYELOCYTES (10*3/UL) IN BLOOD BY CALCULATION 0.18 10*3/uL High 0.00 [facility] Comment on above: Performed By: #### L [id number] ####[facility] ([facility])[address] [place] [address] PROMYELOCYTES/100 LEUKOCYTES IN BLOOD CELLAVISION 1.4 % High 0.0-0.0 [facility] Comment on above: Performed By: #### L [id number] ####[facility] ([facility])[address] [place] [address] VARIANT LYMPHOCYTES (10*3/UL) IN BLOOD BY CALCULATION 0.00 10*3/uL Normal 0.00 [facility] Comment on above: Performed By: #### L [id number] ####[facility] ([facility])[address] [place] [address] VARIANT LYMPHOCYTES/100 LEUKOCYTES IN BLOOD CELLAVISION 0.0 % Normal 0.0-0.0 [facility] Comment on above: Performed By: #### L [id number] ####[facility] ([facility])[address] [place] [address] NURSNOTEon 11-21-2023 NURSNOTE Normal [facility] PHOSPHORUSon 11-21-2023 Magnesium [Mass/Vol] 2.7 mg/dL Normal 2.5-5.0 [facility] Comment on above: Performed By: #### L [id number] ####[facility] ([facility])[address] [place] [address] PROTIME-INRon 11-21-2023 INR IN PPP BY COAGULATION ASSAY 1.18 High 0.90-1.10 [facility] Comment on above: Result Comment: ACCC [...] CHEST 1995;108:231S-246S. Performed By: #### L [id number] ####[facility] [employer])[address] [place] [address] PROTHROMBIN TIME (PT) IN PPP BY COAGULATION ASSAY 15.0 Seconds High 12.3-14.8 [facility] Comment on above: Performed By: #### L [id number] ####[facility] ([employer])[address] [place] [address] 30on 11-20-2023 30 Normal [facility] BASIC METABOLIC PANELon 07- Anion gap [Moles/Vol] 11 mmol/L Normal 7-20 [facility] Comment on above: Performed By: #### L [id number] ####[facility] ([employer])[address] [place] [address] Calcium [Mass/Vol] 6.8 mg/dL Low 8.6-10.3 [facility] Comment on above: Performed By: #### L [id number] ####[facility] ([facility])[address] [place] [address] Chloride [Moles/Vol] 102 mmol/L Normal 98-107 [facility] Comment on above: Performed By: #### L [id number] ####[facility] ([facility])[address] [place] [address] CO2 [Moles/Vol] 29 mmol/L Normal 21-31 [facility] Comment on above: Performed By: #### L [id number] ####[facility] [place] [address] Creatinine [Mass/Vol] 1.59 mg/dL High 0.60-1.20 [facility] Comment on above: Performed By: #### L [id number] ####[facility] ([facility])[address] [place] [address] GLOMERULAR FILTRATION RATE ML/MIN/1.73 SQ M.PREDICTED 32.8 mL/min/1.73m*2 Low >60.0 [facility] Comment on above: Result Comment: [facility]???s estimated glomerular filtration rate (eGFR) will [...] of individuals. Performed By: #### L [id number] ####[facility] ([facility])[address] [place] [address] Glucose [Mass/Vol] 116 mg/dL High 70-100 [facility] Comment on above: Performed By: #### L [id number] ####[facility] ([facility])[address] [place] [address] Potassium [Moles/Vol] 4.4 mmol/L Normal 3.5-5.1 [facility] Comment on above: Performed By: #### L [id number] ####[facility] ([facility])[address] [place] [address] Sodium [Moles/Vol] 138 mmol/L Normal 136-145 [facility] Comment on above: Performed By: #### L [id number] ####[facility] ([facility])[address] [place] [address] Urea nitrogen [Mass/Vol] 47 mg/dL High 7-25 [facility] Comment on above: Performed By: #### L [id number] ####[facility] [place] [address] UREA NITROGEN/CREATININE (MASS RATIO) IN SER/PLAS 29.6 Normal [facility] Comment on above: Performed By: #### L [id number] ####[facility] ([facility])[address] [place] [address] CALCIUM, IONIZEDon CALCIUM IONIZED (MMOL/L) IN BLOOD 0.97 mmol/L Low 1.15-1.33 [facility] Comment on above: Performed By: #### L [id number] ####[facility] [id number] [place] [address] [place] CBCon 11-20-2023 Erythrocyte distribution width (RBC) [Ratio] 18.4 % High 11.5-15.0 [facility] Comment on above: Performed By: #### L [id number] ####[facility] ([facility])[address] [place] [address] ERYTHROCYTE MEAN CORPUSCULAR HEMOGLOBIN CONCENTRATION (G/DL) BY AUTOMATED 32.6 g/dL Normal 32.0-35.0 [facility] Comment on above: Performed By: #### L [id number] ####[facility] ([facility])[address] [place] [address] Hematocrit (Bld) [Volume fraction] 24.2 % Low 36.0-48.0 [facility] Comment on above: Performed By: #### L [id number] ####[facility] [place] [address] Hemoglobin (Bld) [Mass/Vol] 7.9 g/dL Low 12.0-15.0 [facility] Comment on above: Performed By: #### L [id number] ####[facility] ([facility])[address] [place] [address] MCH (RBC) [Entitic mass] 29.9 pg Normal 27.0-33.0 [facility] Comment on above: Performed By: #### L [id number] ####[facility] ([facility])[address] [place] [address] MCV (RBC) [Entitic vol] 91.7 fL Normal 82.0-98.0 [facility] Comment on above: Performed By: #### L [id number] ####[facility] ([facility])[address] [place] [address] PLATELETS (10*3/UL) IN BLOOD AUTOMATED COUNT 133 10*3/uL Low 150-400 [facility] Comment on above: Performed By: #### L [id number] ####[facility] ([facility])[address] [place] [address] RBC (Bld) [#/Vol] 2.64 10*6/uL Low 3.80-5.00 [facility] Comment on above: Performed By: #### L [id number] ####[facility] ([facility])[address] [place] [address] WBC (Bld) [#/Vol] 13.49 10*3/uL High 4.00-10.60 [facility] Comment on above: Performed By: #### L [id number] ####[facility] [place] [address] CBC WITH AUTO DIFFERENTIALon 11-20-2023 Erythrocyte distribution width (RBC) [Ratio] 22.2 % High 11.5-15.0 [facility] Comment on above: Performed By: #### L [id number] ####[facility] [place] [address] ERYTHROCYTE MEAN CORPUSCULAR HEMOGLOBIN CONCENTRATION (G/DL) BY AUTOMATED 31.1 g/dL Low 32.0-35.0 [facility] Comment on above: Performed By: #### L [id number] ####[facility] ([facility])[address] [place] [address] Hematocrit (Bld) [Volume fraction] 18.0 % Low 36.0-48.0 [facility] Comment on above: Performed By: #### L [id number] ####[facility] ([facility])[address] [place] [address] Hemoglobin (Bld) [Mass/Vol] 5.6 g/dL Invalid Interpretation Code 12.0-15.0 [facility] Comment on above: Performed By: #### L [id number] ####[facility] ([facility])[address] [place] [address] MCH (RBC) [Entitic mass] 29.3 pg Normal 27.0-33.0 [facility] Comment on above: Performed By: #### L [id number] ####[facility] ([facility])[address] [place] [address] MCV (RBC) [Entitic vol] 94.2 fL Normal 82.0-98.0 [facility] Comment on above: Performed By: #### L [id number] ####[facility] [place] [address] NRBC (PER 100 WBCS) BY AUTOMATED COUNT 11.3 % High 0 [facility] Comment on above: Performed By: #### L [id number] ####[facility] ([facility])[address] [place] [address] PLATELETS (10*3/UL) IN BLOOD AUTOMATED COUNT 139 10*3/uL Low 150-400 [facility] Comment on above: Performed By: #### L [id number] ####[facility] [place] [address] RBC (Bld) [#/Vol] 1.91 10*6/uL Low 3.80-5.00 [facility] Comment on above: Performed By: #### L [id number] ####[facility] ([facility])[address] [place] [address] WBC (Bld) [#/Vol] 13.93 10*3/uL High 4.00-10.60 [facility] Comment on above: Performed By: #### L [id number] ####[facility] ([facility])[address] [place] [address] CKon 11-20-2023 CREATINE KINASE (U/L) IN SER/PLAS 239.0 U/L High 30.0-223.0 [facility] Comment on above: Performed By: #### L [id number] ####[facility] ([facility])[address] [place] [address] HEMOGLOBIN AND HEMATOCRIT, B LOODon 11-20-2023 Hematocrit (Bld) [Volume fraction] 22.7 % Low 36.0-48.0 [facility] Comment on above: Performed By: #### L [id number] ####[facility] ([facility])[address] [place] [address] Hemoglobin (Bld) [Mass/Vol] 7.2 g/dL Low 12.0-15.0 [facility] Comment on above: Performed By: #### L [id number] ####[facility] ([facility])[address] [place], [place] [address] Hematocrit (Bld) [Volume fraction] 18.7 % Low 36.0-48.0 [facility] Comment on above: Performed By: #### L [id number] ####[facility] [place] [address] Hemoglobin (Bld) [Mass/Vol] 5.8 g/dL Invalid Interpretation Code 12.0-15.0 [facility] Comment on above: Performed By: #### L [id number] ####[facility] ([facility])[address] [place] [address] MAGNESIUMon 11-20-2023 Magnesium [Mass/Vol] 2.1 mg/dL Normal 1.9-2.7 [facility] Comment on above: Performed By: #### L [id number] ####[facility] ([facility])[address] [place] [address] MANUAL DIFFERENTIALon 2023 ANISOCYTOSIS PRESENCE IN BLOOD BY LIGHT MICROSCOPY Moderate Normal [facility] Comment on above: Performed By: #### L [id number] ####[facility] ([facility])[address] [place] [address] BASOPHILS (10*3/UL) IN BLOOD BY CALCULATION 0.00 10*3/uL Normal 0.00-0.20 [facility] Comment on above: Performed By: #### L [id number] ####[facility] ([facility])[address] [place] [address] BASOPHILS/100 LEUKOCYTES IN BLOOD BY AUTOMATED COUNT 0.0 % Normal 0.0-1.0 [facility] Comment on above: Performed By: #### L [id number] ####[facility] ([facility])[address] [place] [address] EOSINOPHILS (10*3/UL) IN BLOOD BY CALCULATION 0.00 10*3/uL Normal 0.00-0.50 [facility] Comment on above: Performed By: #### L [id number] ####[facility] ([facility])[address] [place] [address] EOSINOPHILS/100 LEUKOCYTES IN BLOOD BY AUTOMATED COUNT 0.0 % Normal 0.0-6.0 [facility] Comment on above: Performed By: #### L [id number] ####[facility] ([facility])[address] [place] [address] HYPOCHROMIA (PRESENCE) IN BLOOD BY LIGHT MICROSCOPY Slight Normal [facility] Comment on above: Performed By: #### L [id number] ####[facility] ([facility])[address] [place] [address] LYMPHOCYTES (10*3/UL) IN BLOOD BY CALCULATION 1.94 10*3/uL Normal 1.20-4.00 [facility] Comment on above: Performed By: #### L [id number] ####[facility] ([facility])[address] [place] [address] LYMPHOCYTES/100 LEUKOCYTES IN BLOOD BY AUTOMATED COUNT 13.9 % Low 20.0-45.0 [facility] Comment on above: Performed By: #### L [id number] ####[facility] ([facility])[address] [place] [address] METAMYELOCYTES (10*3/UL) IN BLOOD BY CALCULATION 0.39 10*3/uL High 0.00 [facility] Comment on above: Performed By: #### L [id number] ####[facility] ([facility])[address] [place] [address] METAMYELOCYTES/100 LEUKOCYTES IN BLOOD CELLAVISION 2.8 % High 0.0-0.0 [facility] Comment on above: Performed By: #### L [id number] ####[facility] ([facility])[address] [place], [place] [address] MONOCYTES (10*3/UL) IN BLOOD BY CALCUATION 0.38 10*3/uL Normal 0.10-1.00 [facility] Comment on above: Performed By: #### L [id number] ####[facility] ([facility])[address] [place] [address] MONOCYTES/100 LEUKOCYTES IN BLOOD BY AUTOMATED COUNT 2.7 % Low 5.0-12.0 [facility] Comment on above: Performed By: #### L [id number] ####[facility] ([facility])[address] [place] [address] MYELOCYTES (10*3/UL) IN BLOOD BY CALCULATION 0.20 10*3/uL High 0.00 [facility] Comment on above: Performed By: #### L [id number] ####[facility] ([facility])[address] [place] [address] MYELOCYTES/100 LEUKOCYTES IN BLOOD CELLAVISION 1.4 % High 0.0-0.0 [facility] Comment on above: Performed By: #### L [id number] ####[facility] ([facility])[address] [place] [address] NEUTROPHILS (10*3/UL) IN BLOOD BY CALCULATION 10.8 10*3/uL High 1.6-7.6 [facility] Comment on above: Performed By: #### L [id number] ####[facility] ([facility])[address] [place] [address] NEUTROPHILS/100 LEUKOCYTES IN BLOOD BY AUTOMATED COUNT 77.8 % High 40.0-72.0 [facility] Comment on above: Performed By: #### L [id number] ####[facility] ([facility])[address] [place] [address] NUCLEATED RED BLOOD CELLS IN BLOOD BY LIGHT MICROSCOPY Present Normal [facility] Comment on above: Performed By: #### L [id number] ####[facility] ([facility])[address] [place] [address] PLASMA CELLS/100 LEUKOCYTES IN BLOOD 0 % Normal 0 [facility] Comment on above: Performed By: #### L [id number] ####[facility] ([facility])[address] [place] [address] PLATELETS GIANT PRESENCE IN BLOOD BY LIGHT MICROSCOPY Present Normal [facility] Comment on above: Performed By: #### L [id number] ####[facility] ([facility])[address] [place] [address] POIKILOCYTOSIS (PRESENCE) IN BLOOD BY LIGHT MICROSCOPY Slight Normal [facility] Comment on above: Performed By: #### L [id number] ####[facility] ([facility])[address] [place] [address] POLYCHROMASIA IN BLOOD BY LIGHT MICROSCOPY Slight Normal [facility] Comment on above: Performed By: #### L [id number] ####[facility] ([facility])[address] [place] [address] PROMYELOCYTES (10*3/UL) IN BLOOD BY CALCULATION 0.20 10*3/uL High 0.00 [facility] Comment on above: Performed By: #### L [id number] ####[facility] [place] [address] PROMYELOCYTES/100 LEUKOCYTES IN BLOOD CELLAVISION 1.4 % High 0.0-0.0 [facility] Comment on above: Performed By: #### L [id number] ####[facility] ([facility])[address] [place] [address] VARIANT LYMPHOCYTES (10*3/UL) IN BLOOD BY CALCULATION 0.00 10*3/uL Normal 0.00 [facility] Comment on above: Performed By: #### L [id number] ####[facility] ([facility])[address] [place] [address] VARIANT LYMPHOCYTES/100 LEUKOCYTES IN BLOOD CELLAVISION 0.0 % Normal 0.0-0.0 [facility] Comment on above: Performed By: #### L [id number] ####[facility] ([facility])[address] [place] [address] NURSNOTEon 11-20-2023 NURSNOTE [facility] NURSNOTE Patient has critical HGB of 5.8. 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 Will transfuse emergently. [facility] PATHOLOGY REVIEWon PATHOLOGY REVIEW Electronically christina d by Viktoriya Dominguez MD on 11/20/23 at 12:12 PM. [facility] Comment on above: Performed By: #### L [id number] ####[facility] ([facility])[address] [place] [address] PHOSPHORUSon 11-20-2023 Magnesium [Mass/Vol] 3.2 mg/dL Normal 2.5-5.0 [facility] Comment on above: Performed By: #### L [id number] ####[facility] ([facility])[address] [place] [address] PROTIME-INRon 11-20-2023 INR IN PPP BY COAGULATION ASSAY 3.65 High 0.90-1.10 [facility] Comment on above: Result Comment: [facility] P RECOMMENDED INR FOR [facility] THERAPY CONDITION INRPROPHYLAXIS OF VENOUS THROMBOSIS 2-3(HIGH-RISK SURGERY)TREATMENT OF VENOUS THROMBOSIS 2-3TREATMENT OF PULMONARY EMBOLISM 2-3PREVENTION OF SYSTEMIC EMBOLISM: 2-3 ACUTE MYOCARDIAL INFARCTION TISSUE HEART VALVES VALVULAR HEART DISEASE ATRIAL FIBRILLATION RECURRENT SYSTEMIC EMBOLISMMECHANICAL HEART VALVE 2.5-3.5 FROM: ORAL ANTICOAGULANTS. MECHANISM OF ACTION, CLINICAL EFFECTIVENESS, AND OPTIMAL THERAPEUTIC RANGE. CHEST 1995;108:231S-246S. Performed By: #### L [id number] ####[facility] ([facility])[address] [place] [address] PROTHROMBIN TIME (PT) IN PPP BY COAGULATION ASSAY 36.6 Seconds High 12.3-14.8 [facility] Comment on above: Performed By: #### L [id number] ####[facility] ([facility])[address] [place] [address] INR IN PPP BY COAGULATION ASSAY 4.24 High 0.90-1.10 [facility] Comment on above: Result Comment: [facility] P RECOMMENDED INR FOR WARFARIN THERAPY CONDITION INRPROPHYLAXIS OF VENOUS THROMBOSIS 2-3(HIGH-RISK SURGERY)TREATMENT OF VENOUS THROMBOSIS 2-3TREATMENT OF PULMONARY EMBOLISM 2-3PREVENTION OF SYSTEMIC EMBOLISM: 2-3 ACUTE MYOCARDIAL INFARCTION TISSUE HEART VALVES VALVULAR HEART DISEASE ATRIAL FIBRILLATION RECURRENT SYSTEMIC EMBOLISMMECHANICAL HEART VALVE 2.5-3.5 FROM: ORAL ANTICOAGULANTS. MECHANISM OF ACTION, CLINICAL EFFECTIVENESS, AND OPTIMAL THERAPEUTIC RANGE. CHEST 1995;108:231S-246S. Performed By: #### L [id number] ####[facility] ([employer])[address] [place] [address] PROTHROMBIN TIME (PT) IN PPP BY COAGULATION ASSAY 41.1 Seconds High 12.3-14.8 [facility] Comment on above: Performed By: #### L [id number] ####[facility] ([email or web address])[address] [place] [address] 30on 11-18-2023 30 Normal [facility] BASIC METABOLIC PANELon 07-0 Anion gap [Moles/Vol] 14 mmol/L Normal 7-20 [facility] Comment on above: Performed By: #### L [id number] ####[facility] ([email or web address])[address] [place] [address] Calcium [Mass/Vol] 6.9 mg/dL Low 8.6-10.3 [facility] Comment on above: Performed By: #### L [id number] ####[facility] ([facility])[address] [place] [address] Chloride [Moles/Vol] 99 mmol/L Normal 98-107 [facility] Comment on above: Performed By: #### L [id number] ####[facility] ([facility])[address] [place] [address] CO2 [Moles/Vol] 28 mmol/L Normal 21-31 [facility] Comment on above: Performed By: #### L [id number] ####[facility] ([facility])[address] [place] [address] Creatinine [Mass/Vol] 2.03 mg/dL High 0.60-1.20 [facility] Comment on above: Performed By: #### L [id number] ####[facility] ([facility])[address] [place] [address] GLOMERULAR FILTRATION RATE ML/MIN/1.73 SQ M.PREDICTED 24.5 mL/min/1.73m*2 Low >60.0 [facility] Comment on above: Result Comment: [facility]???s estimated glomerular filtration rate (eGFR) will [...] of individuals. Performed By: #### L [id number] ####[facility] ([facility])[address] [place] [address] Glucose [Mass/Vol] 107 mg/dL High 70-100 [facility] Comment on above: Performed By: #### L [id number] ####[facility] ([facility])[address] [place] [address] Potassium [Moles/Vol] 3.0 mmol/L Low 3.5-5.1 [facility] Comment on above: Performed By: #### L [id number] ####[facility] ([facility])[address] [place] [address] Sodium [Moles/Vol] 138 mmol/L Normal 136-145 [facility] Comment on above: Performed By: #### L [id number] ####[facility] ([facility])[address] [place] [address] Urea nitrogen [Mass/Vol] 49 mg/dL High 7-25 [facility] Comment on above: Performed By: #### L [id number] ####[facility] ([facility])[address] [place] [address] UREA NITROGEN/CREATININE (MASS RATIO) IN SER/PLAS 24.1 Normal [facility] Comment on above: Performed By: #### L [id number] ####[facility] ([facility])[address] [place] [address] CALCIUM, IONIZEDon CALCIUM IONIZED (MMOL/L) IN BLOOD 0.91 mmol/L Low 1.15-1.33 [facility] Comment on above: Performed By: #### L [id number] ####[facility] [id number] [place] [address] [place] CBC WITH AUTO DIFFERENTIALon 11-19-2023 Erythrocyte distribution width (RBC) [Ratio] 22.3 % High 11.5-15.0 [facility] Comment on above: Performed By: #### L [id number] ####[facility] ([facility])[address] [place] [address] ERYTHROCYTE MEAN CORPUSCULAR HEMOGLOBIN CONCENTRATION (G/DL) BY AUTOMATED 31.6 g/dL Low 32.0-35.0 [facility] Comment on above: Performed By: #### L [id number] ####[facility] ([facility])[address] [place] [address] Hematocrit (Bld) [Volume fraction] 19.6 % Low 36.0-48.0 [facility] Comment on above: Performed By: #### L [id number] ####[facility] ([facility])[address] [place] [address] Hemoglobin (Bld) [Mass/Vol] 6.2 g/dL Low 12.0-15.0 [facility] Comment on above: Performed By: #### L [id number] ####[facility] ([facility])[address] [place] [address] MCH (RBC) [Entitic mass] 29.2 pg Normal 27.0-33.0 [facility] Comment on above: Performed By: #### L [id number] ####[facility] ([facility] [place])[address] [place] [address] MCV (RBC) [Entitic vol] 92.5 fL Normal 82.0-98.0 [facility] Comment on above: Performed By: #### L [id number] ####[facility] ([facility] [place])[address] [place] [address] NRBC (PER 100 WBCS) BY AUTOMATED COUNT 9.5 % High 0 [facility] Comment on above: Performed By: #### L [id number] ####[facility] ([facility] [place])[address] [place] [address] PLATELETS (10*3/UL) IN BLOOD AUTOMATED COUNT 123 10*3/uL Low 150-400 [facility] Comment on above: Performed By: #### L [id number] ####[facility] ([facility] OF [facility] [place] [place], [place] [address] RBC (Bld) [#/Vol] 2.12 10*6/uL Low 3.80-5.00 [facility] Comment on above: Performed By: #### L [id number] ####[facility] ([facility] [place] [place] [address] WBC (Bld) [#/Vol] 18.42 10*3/uL High 4.00-10.60 [facility] Comment on above: Performed By: #### L [id number] ####[facility] ([facility] [place], [place] [address] HEPATIC FUNCTION PANELon Albumin [Mass/Vol] 2.1 g/dL Low 3.5-5.7 [facility] Comment on above: Performed By: #### L [id number] ####[facility], [place] [address] ALP [Catalytic activity/Vol] 97 U/L Normal 34-104 [facility] Comment on above: Performed By: #### L [id number] ####[facility] [place] [address] ALT [Catalytic activity/Vol] 29 U/L Normal 7-52 [facility] Comment on above: Performed By: #### L [id number] ####[facility] [place] [address] AST [Catalytic activity/Vol] 89 U/L High 13-39 [facility] Comment on above: Performed By: #### L [id number] ####[facility] ([facility] [place] [place] [address] Bilirubin [Mass/Vol] 0.9 mg/dL Normal 0.3-1.0 [facility] Comment on above: Performed By: #### L [id number] ####[facility] ([facility] [place] [place] [address] Magnesium [Mass/Vol] 0.4 mg/dL High 0-0.2 [facility] Comment on above: Performed By: #### L [id number] ####[facility] ([facility] [place], [place] [address] Protein [Mass/Vol] 4.0 g/dL Low 6.0-8.3 [facility] Comment on above: Performed By: #### L [id number] ####[facility] ([facility] [place] [place] [address] LACTIC ACID WITH 4 HOUR REFL EXon 11-19-2023 LACTATE (MMOL/L) IN SER/PLAS 0.9 mmol/L Normal 0.5-2.2 [facility] Comment on above: Performed By: #### L [id number] ####[facility] [place] [address] MAGNESIUMon 11-19-2023 Magnesium [Mass/Vol] 1.9 mg/dL Normal 1.9-2.7 [facility] Comment on above: Performed By: #### L [id number] ####[facility] ([facility] [place] [place] [address] MANUAL DIFFERENTIALon 2023 ANISOCYTOSIS PRESENCE IN BLOOD BY LIGHT MICROSCOPY Moderate Normal [facility] Comment on above: Performed By: #### L [id number] ####[facility] ([facility] [place] [place] [address] BASOPHILS (10*3/UL) IN BLOOD BY CALCULATION 0.00 10*3/uL Normal 0.00-0.20 [facility] Comment on above: Performed By: #### L [id number] ####[facility] ([facility] [place] [place] [address] BASOPHILS/100 LEUKOCYTES IN BLOOD BY AUTOMATED COUNT 0.0 % Normal 0.0-1.0 [facility] Comment on above: Performed By: #### L [id number] ####[facility] ([facility] [place] [place] [address] EOSINOPHILS (10*3/UL) IN BLOOD BY CALCULATION 0.00 10*3/uL Normal 0.00-0.50 [facility] Comment on above: Performed By: #### L [id number] ####[facility] ([facility] [place] [place] [address] EOSINOPHILS/100 LEUKOCYTES IN BLOOD BY AUTOMATED COUNT 0.0 % Normal 0.0-6.0 [facility] Comment on above: Performed By: #### L [id number] ####[facility] ([facility] [place] [place] [address] HYPOCHROMIA (PRESENCE) IN BLOOD BY LIGHT MICROSCOPY Moderate Normal [facility] Comment on above: Performed By: #### L [id number] ####[facility] ([facility] [place] [place] [address] LYMPHOCYTES (10*3/UL) IN BLOOD BY CALCULATION 1.23 10*3/uL Normal 1.20-4.00 [facility] Comment on above: Performed By: #### L [id number] ####[facility] ([facility] [place] [place] [address] LYMPHOCYTES/100 LEUKOCYTES IN BLOOD BY AUTOMATED COUNT 6.7 % Low 20.0-45.0 [facility] Comment on above: Performed By: #### L [id number] ####[facility] ([facility] [place] [place] [address] MONOCYTES (10*3/UL) IN BLOOD BY CALCUATION 0.87 10*3/uL Normal 0.10-1.00 [facility] Comment on above: Performed By: #### L [id number] ####[facility] ([facility] [place] [place] [address] MONOCYTES/100 LEUKOCYTES IN BLOOD BY AUTOMATED COUNT 4.7 % Low 5.0-12.0 [facility] Comment on above: Performed By: #### L [id number] ####[facility] ([facility] [place] [place] [address] NEUTROPHILS (10*3/UL) IN BLOOD BY CALCULATION 15.8 10*3/uL High 1.6-7.6 [facility] Comment on above: Performed By: #### L [id number] ####[facility] ([facility] [place] [place] [address] NEUTROPHILS/100 LEUKOCYTES IN BLOOD BY AUTOMATED COUNT 85.9 % High 40.0-72.0 [facility] Comment on above: Performed By: #### L [id number] ####[facility] ([facility] [place] [place] [address] NUCLEATED RED BLOOD CELLS IN BLOOD BY LIGHT MICROSCOPY Present Normal [facility] Comment on above: Performed By: #### L [id number] ####[facility] [place] [address] PLASMA CELLS/100 LEUKOCYTES IN BLOOD 0 % Normal 0 [facility] Comment on above: Performed By: #### L [id number] ####[facility] [place] [address] PLATELETS GIANT PRESENCE IN BLOOD BY LIGHT MICROSCOPY Present Normal [facility] Comment on above: Performed By: #### L [id number] ####[facility] ([facility])[address] [place] [address] POIKILOCYTOSIS (PRESENCE) IN BLOOD BY LIGHT MICROSCOPY Slight Normal [facility] Comment on above: Performed By: #### L [id number] ####[facility] ([facility])[address] [place] [address] POLYCHROMASIA IN BLOOD BY LIGHT MICROSCOPY Slight Normal [facility] Comment on above: Performed By: #### L [id number] ####[facility] ([facility] [place] [place] [address] PROMYELOCYTES (10*3/UL) IN BLOOD BY CALCULATION 0.50 10*3/uL High 0.00 [facility] Comment on above: Performed By: #### L [id number] ####[facility] ([facility] [place] [place] [address] PROMYELOCYTES/100 LEUKOCYTES IN BLOOD CELLAVISION 2.7 % High 0.0-0.0 [facility] Comment on above: Performed By: #### L [id number] ####[facility] ([facility] [place] [place] [address] VARIANT LYMPHOCYTES (10*3/UL) IN BLOOD BY CALCULATION 0.00 10*3/uL Normal 0.00 [facility] Comment on above: Performed By: #### L [id number] ####[facility] ([facility] [place] [place] [address] VARIANT LYMPHOCYTES/100 LEUKOCYTES IN BLOOD CELLAVISION 0.0 % Normal 0.0-0.0 [facility] Comment on above: Performed By: #### L [id number] ####[facility] ([facility] [place] [place] [address] NURSNOTEon 11-19-2023 NURSNOTE Normal [facility] PHOSPHORUSon 11-19-2023 Magnesium [Mass/Vol] 4.1 mg/dL Normal 2.5-5.0 [facility] Comment on above: Performed By: #### L [id number] ####[facility] ([facility])[address] [place] [address] POTASSIUMon 11-19-2023 Potassium [Moles/Vol] 3.7 mmol/L Normal 3.5-5.1 [facility] on above: Performed By: #### L [id number] ####[facility] ([facility])[address] [place] [address] PROTIME-INRon 11-19-2023 INR IN PPP BY COAGULATION ASSAY 4.04 High 0.90-1.10 [facility] Comment on above: Result Comment: ACCC [...] CHEST 1995;[id number]. Performed By: #### L [id number] ####[facility] ([facility])[address] [place] [address] PROTHROMBIN TIME (PT) IN PPP BY COAGULATION ASSAY 39.6 Seconds High 12.3-14.8 [facility] Comment on above: Performed By: #### L [id number] ####[facility] ([facility])[address] [place] [address] TYPE AND SCREENon 11-19-2023 AB SCREEN Negative Normal [facility] Comment on above: Performed By: #### L [id number] ####[facility] B[facility]OD [facility], ABO group Nom (Bld) O Normal [facility] Comment on above: Performed By: #### L [id number] ####[facility], RH TYPE IN BLOOD Positive Normal [facility] Comment on above: Performed By: #### L [id number] ####[facility], 3011-18-2023 30 [facility] on 11-17-2023 30 [facility] 30 [facility] 30 [facility] CONSULTon 11-17-2023 CONSULT [facility] NURSNOTEon 11-17-2023 NURSNOTE Patient states frustration with having to do assessment, and meds stating she doesn't want to be told what to do . Patient also refusing oxygen at this time. [facility] 11-16-2023 30 [facility] 30on 11-15-2023 30 [facility] 30 [facility] ANESon 11-15-2023 ANES [facility] ARTERIAL BLOOD GAS WITH CO-O XIMETRYon 11-15-2023 Base excess Calc (Bld) [Moles/Vol] -16.91640 mmol/L Low -2.0-3.0 [facility] Comment on above: Performed By: #### L [id number] ####[facility] RESPIRATORY [id number] [place] [address] [facility] CARBOXYHEMOGLOBIN/HEM OGLOBIN TOTAL % IN BLOOD 1.3 % Normal 0.0-3.0 [facility] Comment on above: Performed By: #### L [id number] ####[facility] RESPIRATORY [id number] [place] [address] [facility] CO2 (Bld) [Partial pressure] 32 mm[Hg] Low 35-48 [facility] Comment on above: Performed By: #### L [id number] ####[facility] RESPIRATORY [id number] [place] [address] [facility] DEOXYGENATED HEMOGLOBIN IN BLOOD 4.6 % Normal 1-5 [facility] Comment on above: Performed By: #### L [id number] ####[facility] RESPIRATORY [id number] [place] [address] [facility] HCO3 (Bld) [Moles/Vol] 11.1 mmol/L Low 21.0-28.0 [facility] Comment on above: Performed By: #### L [id number] ####[facility] RESPIRATORY [id number] [place] [address] [facility] Hemoglobin (Bld) [Mass/Vol] 8.9 g/dL Low 11.7-17.4 [facility] Comment on above: Performed By: #### L [id number] ####[facility] RESPIRATORY [id number] [place] [address] [facility] METHEMOGLOBIN/100 IN BLOOD 0.3 % Normal 0.0-1.5 [facility] Comment on above: Performed By: #### L [id number] ####[facility] RESPIRATORY [id number] [place] [address] [facility] Oxygen (Bld) [Partial pressure] 75 mm[Hg] Low 83-100 [facility] Comment on above: Performed By: #### L [id number] ####[facility] RESPIRATORY [id number] [place] [address] [facility] OXYGEN SATURATION (%) IN ARTERIAL BLOOD 95.3 % Normal 94.0-98.0 [facility] Comment on above: Performed By: #### L [id number] ####[facility] RESPIRATORY [id number] [place] [address] [facility] OXYGENATED HEMOGLOBIN IN BLOOD 93.8 % Normal 90.0-95.0 [facility] Comment on above: Performed By: #### L [id number] ####[facility] RESPIRATORY [id number] [place] [address] [facility] pH (Bld) 7.15 [pH] Invalid Interpretation Code 7.35-7.45 [facility] Comment on above: Performed By: #### L [id number] ####[facility] RESPIRATORY [id number] [place] [address] [facility] SOURCE OF OXYGEN Room Air Normal [facility] Comment on above: Performed By: #### L [id number] ####[facility] RESPIRATORY [id number] [place] [address] [facility] Base excess Calc (Bld) [Moles/Vol] -18.11697 mmol/L Low -2.0-3.0 [facility] Comment on above: Performed By: #### L [id number] ####[facility] RESPIRATORY [id number] [place] [address] [facility] CARBOXYHEMOGLOBIN/HEM OGLOBIN TOTAL % IN BLOOD 1.7 % Normal 0.0-3.0 [facility] Comment on above: Performed By: #### L [id number] ####[facility] RESPIRATORY [id number] [place] [address] [facility] CO2 (Bld) [Partial pressure] 27 mm[Hg] Low 35-48 [facility] Comment on above: Performed By: #### L [id number] ####[facility] RESPIRATORY [id number] [place] [address] [facility] DEOXYGENATED HEMOGLOBIN IN BLOOD 1.6 % Normal 1-5 [facility] Comment on above: Performed By: #### L [id number] ####[facility] RESPIRATORY [id number] [place] [address] [facility] HCO3 (Bld) [Moles/Vol] 9.0 mmol/L Low 21.0-28.0 [facility] Comment on above: Performed By: #### L [id number] ####[facility] RESPIRATORY [id number] [place] [address] [facility] Hemoglobin (Bld) [Mass/Vol] 9.6 g/dL Low 11.7-17.4 [facility] Comment on above: Performed By: #### L [id number] ####[facility] RESPIRATORY [id number] [place] [address] [facility] METHEMOGLOBIN/100 IN BLOOD 0.8 % Normal 0.0-1.5 [facility] Comment on above: Performed By: #### L [id number] ####[facility] RESPIRATORY [id number] [place] [address] [place] Oxygen (Bld) [Partial pressure] 98 mm[Hg] Normal 83-100 [facility] Comment on above: Performed By: #### L [id number] ####[facility] RESPIRATORY [id number] [place] [address] [place] OXYGEN SATURATION (%) IN ARTERIAL BLOOD 98.4 % High 94.0-98.0 [facility] Comment on above: Performed By: #### L [id number] ####[facility] RESPIRATORY [id number] [place] [address] [facility] OXYGENATED HEMOGLOBIN IN BLOOD 95.9 % High 90.0-95.0 [facility] Comment on above: Performed By: #### L [id number] ####[facility] RESPIRATORY [id number] [place] [address] [facility] pH (Bld) 7.13 [pH] Invalid Interpretation Code 7.35-7.45 [facility] Comment on above: Performed By: #### L [id number] ####[facility] RESPIRATORY [id number] [place] [address] [facility] SOURCE OF OXYGEN Room Air Normal [facility] Comment on above: Performed By: #### L [id number] ####[facility] RESPIRATORY [id number] [place] [address] [facility] Base excess Calc (Bld) [Moles/Vol] -19.30579 mmol/L Low -2.0-3.0 [facility] Comment on above: Performed By: #### L [id number] ####[facility] RESPIRATORY [id number] [place] [address] [place] CARBOXYHEMOGLOBIN/HEM OGLOBIN TOTAL % IN BLOOD 1.9 % Normal 0.0-3.0 [facility] Comment on above: Performed By: #### L [id number] ####[facility] RESPIRATORY [id number] [place] [address] [place] CO2 (Bld) [Partial pressure] 30 mm[Hg] Low 35-48 [facility] Comment on above: Performed By: #### L [id number] ####[facility] RESPIRATORY [id number] [place] [address] [place] DEOXYGENATED HEMOGLOBIN IN BLOOD 2.6 % Normal 1-5 [facility] Comment on above: Performed By: #### L [id number] ####[facility] RESPIRATORY [id number] [facility] [place] [address] [place] HCO3 (Bld) [Moles/Vol] 8.9 mmol/L Low 21.0-28.0 [facility] Comment on above: Performed By: #### L [id number] ####[facility] RESPIRATORY [id number] [place] [address] [place] Hemoglobin (Bld) [Mass/Vol] 9.8 g/dL Low 11.7-17.4 [facility] Comment on above: Performed By: #### L [id number] ####[facility] RESPIRATORY [id number] [place] [address] [place] METHEMOGLOBIN/100 IN BLOOD 0.7 % Normal 0.0-1.5 [facility] Comment on above: Performed By: #### L [id number] ####[facility] RESPIRATORY [id number] [place] [address] [place] Oxygen (Bld) [Partial pressure] 86 mm[Hg] Normal 83-100 [facility] Comment on above: Performed By: #### L [id number] ####[facility] RESPIRATORY [id number] [place] [address] [place] OXYGEN SATURATION (%) IN ARTERIAL BLOOD 97.3 % Normal 94.0-98.0 [facility] Comment on above: Performed By: #### L [id number] ####[facility] RESPIRATORY [id number] [place] [address] [place] OXYGENATED HEMOGLOBIN IN BLOOD 94.8 % Normal 90.0-95.0 [facility] Comment on above: Performed By: #### L [id number] ####[facility] RESPIRATORY [id number] [place] [address] [place] pH (Bld) 7.08 [pH] Invalid Interpretation Code 7.35-7.45 [facility] Comment on above: Performed By: #### L [id number] ####[facility] RESPIRATORY [id number] [place] [address] [facility] SOURCE OF OXYGEN Room Air Normal [facility] Comment on above: Performed By: #### L [id number] ####[facility] RESPIRATORY [id number] [place] [address] [facility] Base excess Calc (Bld) [Moles/Vol] -19.64701 mmol/L Low -2.0-3.0 [facility] Comment on above: Performed By: #### L [id number] ####[facility] RESPIRATORY [id number] [place] [address] [facility] CARBOXYHEMOGLOBIN/HEM OGLOBIN TOTAL % IN BLOOD 1.7 % Normal 0.0-3.0 [facility] Comment on above: Performed By: #### L [id number] ####[facility] RESPIRATORY [id number] [place] [address] [facility] CO2 (Bld) [Partial pressure] 27 mm[Hg] Low 35-48 [facility] Comment on above: Performed By: #### L [id number] ####[facility] RESPIRATORY [id number] [place] [address] [facility] DEOXYGENATED HEMOGLOBIN IN BLOOD 0.1 % Low 1-5 [facility] Comment on above: Performed By: #### L [id number] ####[facility] RESPIRATORY [id number] [place] [address] [facility] HCO3 (Bld) [Moles/Vol] 8.6 mmol/L Low 21.0-28.0 [facility] Comment on above: Performed By: #### L [id number] ####[facility] RESPIRATORY [id number] [place] [address] [facility] Hemoglobin (Bld) [Mass/Vol] 8.0 g/dL Low 11.7-17.4 [facility] Comment on above: Performed By: #### L [id number] ####[facility] RESPIRATORY [id number] [place] [address] [place] METHEMOGLOBIN/100 IN BLOOD 0.2 % Normal 0.0-1.5 [facility] Comment on above: Performed By: #### L [id number] ####[facility] RESPIRATORY [id number] Oxygen (Bld) [Partial pressure] 266 mm[Hg] High 83-100 [facility] Comment on above: Performed By: #### L [id number] ####[facility] RESPIRATORY [id number] [address] OXYGEN SATURATION (%) IN ARTERIAL BLOOD 99.9 % High 94.0-98.0 [facility] Comment on above: Performed By: #### L [id number] ####[facility] RESPIRATORY [id number] [place] [address] OXYGENATED HEMOGLOBIN IN BLOOD 98.0 % High 90.0-95.0 [facility] Comment on above: Performed By: #### L [id number] ####[facility] RESPIRATORY [id number] [place] [address] pH (Bld) 7.11 [pH] Invalid Interpretation Code 7.35-7.45 [facility] Comment on above: Performed By: #### L [id number] ####[facility] RESPIRATORY [id number] [address] SOURCE OF OXYGEN Non-rebreather mask Normal [facility] Comment on above: Performed By: #### L [id number] ####[facility] RESPIRATORY [id number] [place] [address] ARTERIAL BLOOD GAS WITH IONI ZED CALCIUMon 11-15-2023 Base excess Calc (Bld) [Moles/Vol] -5.2000 mmol/L Low -2.0-3.0 [facility] Comment on above: Performed By: #### L [id number] ####[facility] RESPIRATORY [id number] [place] [address] CALCIUM IONIZED (MMOL/L) IN BLOOD 1.07 mmol/L Low 1.15-1.33 [facility] Comment on above: Performed By: #### L [id number] ####[facility] RESPIRATORY [id number] [place] [address] [place] CO2 (Bld) [Partial pressure] 32 mm[Hg] Low 35-48 [facility] Comment on above: Performed By: #### L [id number] ####[facility] RESPIRATORY [id number] [place] [address] [facility] HCO3 (Bld) [Moles/Vol] 18.9 mmol/L Low 21.0-28.0 [facility] Comment on above: Performed By: #### L [id number] ####[facility] RESPIRATORY [id number] [place] [address] [facility] Oxygen (Bld) [Partial pressure] 78 mm[Hg] Low 83-100 [facility] Comment on above: Performed By: #### L [id number] ####[facility] RESPIRATORY [id number] [place] [address] [facility] OXYGEN SATURATION (%) IN ARTERIAL BLOOD 98.2 % High 94.0-98.0 [facility] Comment on above: Performed By: #### L [id number] ####[facility] RESPIRATORY [id number] [place] [address] [facility] pH (Bld) 7.38 [pH] Normal 7.35-7.45 [facility] Comment on above: Performed By: #### L [id number] ####[facility] RESPIRATORY [id number] [place] [address] [facility] SOURCE OF OXYGEN Room Air Normal [facility] Comment on above: Performed By: #### L [id number] ####[facility] RESPIRATORY [id number] [place] [address] [place] B-TYPE NATRIURETIC PEPTIDEon 11-15-2023 Natriuretic peptide B (Bld) [Mass/Vol] 165 pg/mL High 0-100 [facility] Comment on above: Performed By: #### L [id number] ####[facility] LAB (BEAKER)[address] [place] [address] Natriuretic peptide B (Bld) [Mass/Vol] 175 pg/mL High 0-100 [facility] Comment on above: Performed By: #### L [id number] ####[facility] [place] [address] BASIC METABOLIC PANELon 07-0 Anion gap [Moles/Vol] 25 mmol/L High 7-20 [facility] Comment on above: Performed By: #### L [id number] ####[facility] LAB ([facility])[address] [place] [address] Calcium [Mass/Vol] 7.4 mg/dL Low 8.6-10.3 [facility] Comment on above: Performed By: #### L [id number] ####[facility] ([facility])[address] [place] [address] Chloride [Moles/Vol] 108 mmol/L High 98-107 [facility] Comment on above: Performed By: #### L [id number] ####[facility] ([facility])[address] [place] [address] CO2 [Moles/Vol] 22 mmol/L Normal 21-31 [facility] Comment on above: Performed By: #### L [id number] ####[facility] ([facility])[address] [place] [address] Creatinine [Mass/Vol] 1.33 mg/dL High 0.60-1.20 [facility] Comment on above: Performed By: #### L [id number] ####[facility] ([facility])[address] [place] [address] GLOMERULAR FILTRATION RATE ML/MIN/1.73 SQ M.PREDICTED 40.7 mL/min/1.73m*2 Low >60.0 [facility] Comment on above: Result Comment: [facility]???s estimated glomerular filtration rate (eGFR) will [...] of individuals. Performed By: #### L [id number] ####[facility] ([facility])[address] [place] [address] Glucose [Mass/Vol] 140 mg/dL High 70-100 [facility] Comment on above: Performed By: #### L [id number] ####[facility] ([facility])[address] [place] [address] Potassium [Moles/Vol] 3.4 mmol/L Low 3.5-5.1 [facility] Comment on above: Performed By: #### L [id number] ####[facility] ([facility])[address] [place] [address] Sodium [Moles/Vol] 152 mmol/L High 136-145 [facility] Comment on above: Performed By: #### L [id number] ####[facility] ([facility])[address] [place] [address] Urea nitrogen [Mass/Vol] 30 mg/dL High 7-25 [facility] Comment on above: Performed By: #### L [id number] ####[facility] ([facility])[address] [place] [address] UREA NITROGEN/CREATININE (MASS RATIO) IN SER/PLAS 22.6 Normal [facility] Comment on above: Performed By: #### L [id number] ####[facility] [place] [address] Anion gap [Moles/Vol] 28 mmol/L High 7-20 [facility] Comment on above: Performed By: #### L [id number] ####[facility] ([facility])[address] [place] [address] Calcium [Mass/Vol] 6.7 mg/dL Low 8.6-10.3 [facility] Comment on above: Performed By: #### L [id number] ####[facility] [place] [address] Chloride [Moles/Vol] 112 mmol/L High 98-107 [facility] Comment on above: Performed By: #### L [id number] ####[facility] ([facility])[address] [place] [address] CO2 [Moles/Vol] 10 mmol/L Invalid Interpretation Code [facility] Comment on above: Performed By: #### L [id number] ####[facility] ([facility])[address] [place] [address] Creatinine [Mass/Vol] 1.18 mg/dL Normal 0.60-1.20 [facility] Comment on above: Performed By: #### L [id number] ####[facility] ([facility])[address] [place] [address] GLOMERULAR FILTRATION RATE ML/MIN/1.73 SQ M.PREDICTED 47.0 mL/min/1.73m*2 Low >60.0 [facility] Comment on above: Result Comment: [facility]???s estimated glomerular filtration rate (eGFR) will [...] of individuals. Performed By: #### L [id number] ####[facility] ([facility])[address] [place] [address] Glucose [Mass/Vol] 239 mg/dL High 70-100 [facility] Comment on above: Performed By: #### L [id number] ####[facility] ([facility])[address] [place] [address] Potassium [Moles/Vol] 3.7 mmol/L Normal 3.5-5.1 [facility] Comment on above: Performed By: #### L [id number] ####[facility] ([facility])[address] [place] [address] Sodium [Moles/Vol] 146 mmol/L High 136-145 [facility] Comment on above: Performed By: #### L [id number] ####[facility] ([facility])[address] [place] [address] Urea nitrogen [Mass/Vol] 26 mg/dL High 7-25 [facility] Comment on above: Performed By: #### L [id number] ####[facility] ([facility])[address] [place] [address] UREA NITROGEN/CREATININE (MASS RATIO) IN SER/PLAS 22.0 Normal [facility] Comment on above: Performed By: #### L [id number] ####[facility] ([facility])[address] [place] [address] Anion gap [Moles/Vol] 16 mmol/L Normal 7-20 [facility] Comment on above: Performed By: #### L [id number] ####[facility] ([facility])[address] [place] [address] Calcium [Mass/Vol] 7.2 mg/dL Low 8.6-10.3 [facility] Comment on above: Performed By: #### L [id number] ####[facility] ([facility])[address] [place] [address] Chloride [Moles/Vol] 113 mmol/L High 98-107 [facility] Comment on above: Performed By: #### L [id number] ####[facility] ([facility])[address] [place] [address] CO2 [Moles/Vol] 18 mmol/L Low 21-31 [facility] Comment on above: Performed By: #### L [id number] ####[facility] ([facility])[address] [place] [address] Creatinine [Mass/Vol] 1.00 mg/dL Normal 0.60-1.20 [facility] Comment on above: Performed By: #### L [id number] ####[facility] ([facility])[address] [place] [address] GLOMERULAR FILTRATION RATE ML/MIN/1.73 SQ M.PREDICTED 57.3 mL/min/1.73m*2 Low >60.0 [facility] Comment on above: Result Comment: [facility]???s estimated glomerular filtration rate (eGFR) will [...] of individuals. Performed By: #### L [id number] ####[facility] ([facility])[address] [place] [address] Glucose [Mass/Vol] 205 mg/dL High 70-100 [facility] Comment on above: Performed By: #### L [id number] ####[facility] ([facility])[address] [place] [address] Potassium [Moles/Vol] 3.9 mmol/L Normal 3.5-5.1 [facility] Comment on above: Performed By: #### L [id number] ####[facility] ([facility])[address] [place] [address] Sodium [Moles/Vol] 143 mmol/L Normal 136-145 [facility] Comment on above: Performed By: #### L [id number] ####[facility] ([facility])[address] [place] [address] Urea nitrogen [Mass/Vol] 27 mg/dL High 7-25 [facility] Comment on above: Performed By: #### L [id number] ####[facility] ([facility])[address] [place] [address] UREA NITROGEN/CREATININE (MASS RATIO) IN SER/PLAS 27.0 Normal [facility] Comment on above: Performed By: #### L [id number] ####[facility] ([facility])[address] [facility] [address] BETA HYDROXYBUTYRATEon 11-14 BETA HYDROXYBUTYRATE (MMOL/L) IN SER/PLAS 0.31 mmol/L High 0.02-0.27 [facility] Comment on above: Performed By: #### L [id number] ####[facility] ([facility])[address] [address] BLOOD CULTUREon 11-15-2023 Bacteria identified Cx Nom (Bld) No growth at 5 days [facility] Comment on above: Order Comment: From a different site than #1. Performed By: #### L [id number] ####[facility] ([facility])[address] [place] [address] Bacteria identified Cx Nom (Bld) No growth at 5 days [facility] Comment on above: Performed By: #### L [id number] ####[facility] ([facility])[address] [place] [address] CALCIUM, IONIZEDon CALCIUM IONIZED (MMOL/L) IN BLOOD 1.09 mmol/L Low 1.15-1.33 [facility] Comment on above: Performed By: #### C ALCIUM, IONIZED ####[facility] [id number] [place] [address] [facility] CALCIUM IONIZED (MMOL/L) IN BLOOD 1.05 mmol/L Low 1.15-1.33 [facility] Comment on above: Performed By: #### C ALCIUM, IONIZED ####[facility] [id number] [place] [address] [facility] CALCIUM IONIZED (MMOL/L) IN BLOOD 1.06 mmol/L Low 1.15-1.33 [facility] Comment on above: Performed By: #### C ALCIUM, IONIZED ####[facility] [id number] [place] [address] [facility] CALCIUM IONIZED (MMOL/L) IN BLOOD 1.12 mmol/L Low 1.15-1.33 [facility] Comment on above: Performed By: #### C ALCIUM, IONIZED ####[facility] [id number] [place] [address] [facility] CBCon 11-15-2023 Erythrocyte distribution width (RBC) [Ratio] 21.2 % High 11.5-15.0 [facility] Comment on above: Performed By: #### L [id number] ####[facility] ([facility])[address] [place] [address] ERYTHROCYTE MEAN CORPUSCULAR HEMOGLOBIN CONCENTRATION (G/DL) BY AUTOMATED 33.3 g/dL Normal 32.0-35.0 [facility] Comment on above: Performed By: #### L [id number] ####[facility] ([facility])[address] [place] [address] Hematocrit (Bld) [Volume fraction] 21.9 % Low 36.0-48.0 [facility] Comment on above: Performed By: #### L [id number] ####[facility] ([facility])[address] [place] [address] Hemoglobin (Bld) [Mass/Vol] 7.3 g/dL Low 12.0-15.0 [facility] Comment on above: Performed By: #### L [id number] ####[facility] ([facility])[address] [place] [address] IMMATURE PLATELET FRACTION % 9.7 % High 0.8-6.3 [facility] Comment on above: Performed By: #### L [id number] ####[facility] ([facility])[address] [place] [address] MCH (RBC) [Entitic mass] 28.5 pg Normal 27.0-33.0 [facility] Comment on above: Performed By: #### L [id number] ####[facility] ([facility])[address] [place] [address] MCV (RBC) [Entitic vol] 85.5 fL Normal 82.0-98.0 [facility] Comment on above: Performed By: #### L [id number] ####[facility] ([facility])[address] [place] [address] PLATELETS (10*3/UL) IN BLOOD AUTOMATED COUNT 115 10*3/uL Low 150-400 [facility] Comment on above: Performed By: #### L [id number] ####[facility] ([facility])[address] [place] [address] RBC (Bld) [#/Vol] 2.56 10*6/uL Low 3.80-5.00 [facility] Comment on above: Performed By: #### L [id number] ####[facility] ([facility])[address] [place] [address] WBC (Bld) [#/Vol] 34.01 10*3/uL High 4.00-10.60 [facility] Comment on above: Performed By: #### L [id number] ####[facility] ([facility])[address] [place] [address] Erythrocyte distribution width (RBC) [Ratio] 21.1 % High 11.5-15.0 [facility] Comment on above: Performed By: #### L [id number] ####[facility] ([facility])[address] [place] [address] ERYTHROCYTE MEAN CORPUSCULAR HEMOGLOBIN CONCENTRATION (G/DL) BY AUTOMATED 32.2 g/dL Normal 32.0-35.0 [facility] Comment on above: Performed By: #### L [id number] ####[facility] ([facility])[address] [place] [address] Hematocrit (Bld) [Volume fraction] 25.8 % Low 36.0-48.0 [facility] Comment on above: Result Comment: Pt i s in surgery on 11/15/23 Performed By: #### L [id number] ####[facility] ([facility])[address] [place] [address] Hemoglobin (Bld) [Mass/Vol] 8.3 g/dL Low 12.0-15.0 [facility] Comment on above: Performed By: #### L [id number] ####[facility] ([facility])[address] [place] [place] [address] MCH (RBC) [Entitic mass] 27.9 pg Normal 27.0-33.0 [facility] Comment on above: Performed By: #### L [id number] ####[facility] [place] [address] MCV (RBC) [Entitic vol] 86.6 fL Normal 82.0-98.0 [facility] Comment on above: Performed By: #### L [id number] ####[facility] [place] [address] PLATELETS (10*3/UL) IN BLOOD AUTOMATED COUNT 238 10*3/uL Normal 150-400 [facility] Comment on above: Performed By: #### L [id number] ####[facility] [place] [address] RBC (Bld) [#/Vol] 2.98 10*6/uL Low 3.80-5.00 [facility] Comment on above: Performed By: #### L [id number] ####[facility] ([facility])[address] [place] [address] WBC (Bld) [#/Vol] 16.89 10*3/uL High 4.00-10.60 [facility] Comment on above: Performed By: #### L [id number] ####[facility] ([facility])[address] [place], [place] [address] CBC WITH AUTO DIFFERENTIALon 11-15-2023 Erythrocyte distribution width (RBC) [Ratio] 20.5 % High 11.5-15.0 [facility] Comment on above: Performed By: #### L [id number] ####[facility] ([facility])[address] [place] [address] ERYTHROCYTE MEAN CORPUSCULAR HEMOGLOBIN CONCENTRATION (G/DL) BY AUTOMATED 30.3 g/dL Low 32.0-35.0 [facility] Comment on above: Performed By: #### L [id number] ####[facility] [place] [address] Hematocrit (Bld) [Volume fraction] 32.0 % Low 36.0-48.0 [facility] Comment on above: Performed By: #### L [id number] ####[facility] [place] [address] Hemoglobin (Bld) [Mass/Vol] 9.7 g/dL Low 12.0-15.0 [facility] Comment on above: Performed By: #### L [id number] ####[facility] [place] [address] MCH (RBC) [Entitic mass] 27.6 pg Normal 27.0-33.0 [facility] Comment on above: Performed By: #### L [id number] ####[facility] [place] [address] MCV (RBC) [Entitic vol] 90.9 fL Normal 82.0-98.0 [facility] Comment on above: Performed By: #### L [id number] ####[facility] [place] [address] NRBC (PER 100 WBCS) BY AUTOMATED COUNT 0.5 % High 0 [facility] Comment on above: Performed By: #### L [id number] ####[facility] [place] [address] PLATELETS (10*3/UL) IN BLOOD AUTOMATED COUNT 207 10*3/uL Normal 150-400 [facility] Comment on above: Performed By: #### L [id number] ####[facility] [place] [address] RBC (Bld) [#/Vol] 3.52 10*6/uL Low 3.80-5.00 [facility] Comment on above: Performed By: #### L [id number] ####[facility] ([facility])[address] [place] [address] WBC (Bld) [#/Vol] 34.34 10*3/uL High 4.00-10.60 [facility] Comment on above: Performed By: #### L [id number] ####[facility] ([facility])[address] [place] [address] CLOSTRIDIOIDES DIFFICILE DNA AMPLIFICATIONon 11-15-2023 CLOSTRIDIOIDES DIFFICILE (TOXIN A/B) Negative Normal Negative [facility] Comment on above: Order Comment: Testi ng methodology is an in vitro diagnostic test for the direct, qualitative detection of the Clostridioides difficile Toxin A gene (tcdA) in unformed stool specimens of patients suspected of having Clostridioides difficile-infection (CDI). The Cougar C. difficile Assay is intended for use as an aid in diagnosis of CDI. The assay utilizes helicase-dependent amplification (HDA) for the amplification of a highly conserved fragment of the Toxin A gene sequence. Performed By: #### L [id number] ####[facility] ([facility])[address] [place] [address] CONSULTon 11-15-2023 CONSULT Normal [facility] HEPATIC FUNCTION PANELon Albumin [Mass/Vol] 2.1 g/dL Low 3.5-5.7 [facility] Comment on above: Performed By: #### L [id number] ####[facility] ([facility])[address] [place] [address] ALP [Catalytic activity/Vol] 65 U/L Normal 34-104 [facility] Comment on above: Performed By: #### L [id number] ####[facility] ([facility])[address] [place] [address] ALT [Catalytic activity/Vol] 647 U/L High 7-52 [facility] Comment on above: Performed By: #### L [id number] ####[facility] ([facility])[address] [place] [address] AST [Catalytic activity/Vol] 1580 U/L High 13-39 [facility] Comment on above: Performed By: #### L [id number] ####[facility] ([facility])[address] [place] [address] Bilirubin [Mass/Vol] 1.0 mg/dL Normal 0.3-1.0 [facility] Comment on above: Performed By: #### L [id number] ####[facility] ([facility])[address] [place] [address] Magnesium [Mass/Vol] 0.5 mg/dL High 0-0.2 [facility] Comment on above: Performed By: #### L [id number] ####[facility] ([facility])[address] [place] [address] Protein [Mass/Vol] 3.2 g/dL Low 6.0-8.3 [facility] Comment on above: Performed By: #### L [id number] ####[facility] ([facility])[address] [place] [address] LACTIC ACID WITH 4 HOUR REFL EXon 11-15-2023 LACTATE (MMOL/L) IN SER/PLAS 13.2 mmol/L Critically high 0.5-2.2 [facility] Comment on above: Result Comment: M-AR EVIOUS CRITICAL RESULTPrevious result verified on 11/15/2023 1231 on specimen/case [id number] called with component Lactate for procedure Lactic acid, plasma with value 16.9 mmol/L. Performed By: #### L [id number] ####[facility] ([facility])[address] [place] [address] LACTIC ACID, PLASMAon 2023 LACTATE (MMOL/L) IN SER/PLAS 16.9 mmol/L Critically high 0.5-2.2 [facility] Comment on above: Result Comment: Prev ious result verified on 11/15/2023 1055 on specimen/case [id number] called with component Lactate for procedure Lactic acid, plasma with value 17.0 mmol/L. Performed By: #### L [id number] ####[facility] ([facility])[address] [place] [address] LACTATE (MMOL/L) IN SER/PLAS 17.0 mmol/L Critically high 0.5-2.2 [facility] Comment on above: Performed By: #### L [id number] ####[facility] ([facility])[address] [place] [address] MAGNESIUMon 11-15-2023 Magnesium [Mass/Vol] 2.5 mg/dL Normal 1.9-2.7 [facility] Comment on above: Performed By: #### L [id number] ####[facility] ([facility])[address] [place] [address] Magnesium [Mass/Vol] 1.6 mg/dL Low 1.9-2.7 [facility] Comment on above: Performed By: #### L [id number] ####[facility] ([facility])[address] [place] [address] MANUAL DIFFERENTIALon 2023 ANISOCYTOSIS PRESENCE IN BLOOD BY LIGHT MICROSCOPY Moderate Normal [facility] Comment on above: Performed By: #### L [id number] ####[facility] ([facility])[address] [place] [address] BASOPHILS (10*3/UL) IN BLOOD BY CALCULATION 0.00 10*3/uL Normal 0.00-0.20 [facility] Comment on above: Performed By: #### L [id number] ####[facility] ([facility])[address] [place] [address] BASOPHILS/100 LEUKOCYTES IN BLOOD BY AUTOMATED COUNT 0.0 % Normal 0.0-1.0 [facility] Comment on above: Performed By: #### L [id number] ####[facility] ([facility])[address] [place] [address] EOSINOPHILS (10*3/UL) IN BLOOD BY CALCULATION 0.00 10*3/uL Normal 0.00-0.50 [facility] Comment on above: Performed By: #### L [id number] ####[facility] [place] [address] EOSINOPHILS/100 LEUKOCYTES IN BLOOD BY AUTOMATED COUNT 0.0 % Normal 0.0-6.0 [facility] Comment on above: Performed By: #### L [id number] ####[facility] ([facility])[address] [place] [address] LYMPHOCYTES (10*3/UL) IN BLOOD BY CALCULATION 2.51 10*3/uL Normal 1.20-4.00 [facility] Comment on above: Performed By: #### L [id number] ####[facility] ([facility])[address] [place] [address] LYMPHOCYTES/100 LEUKOCYTES IN BLOOD BY AUTOMATED COUNT 7.3 % Low 20.0-45.0 [facility] Comment on above: Performed By: #### L [id number] ####[facility] ([facility])[address] [place] [address] MONOCYTES (10*3/UL) IN BLOOD BY CALCUATION 0.93 10*3/uL Normal 0.10-1.00 [facility] Comment on above: Performed By: #### L [id number] ####[facility] ([facility])[address] [place], [place] [address] MONOCYTES/100 LEUKOCYTES IN BLOOD BY AUTOMATED COUNT 2.7 % Low 5.0-12.0 [facility] Comment on above: Performed By: #### L [id number] ####[facility] ([facility])[address] [place] [address] MYELOCYTES (10*3/UL) IN BLOOD BY CALCULATION 0.93 10*3/uL High 0.00 [facility] Comment on above: Performed By: #### L [id number] ####[facility] ([facility])[address] [place] [address] MYELOCYTES/100 LEUKOCYTES IN BLOOD CELLAVISION 2.7 % High 0.0-0.0 [facility] Comment on above: Performed By: #### L [id number] ####[facility] ([facility])[address] [place] [address] NEUTROPHILS (10*3/UL) IN BLOOD BY CALCULATION 30.0 10*3/uL High 1.6-7.6 [facility] Comment on above: Performed By: #### L [id number] ####[facility] ([facility])[address] [place] [address] NEUTROPHILS/100 LEUKOCYTES IN BLOOD BY AUTOMATED COUNT 87.3 % High 40.0-72.0 [facility] Comment on above: Performed By: #### L [id number] ####[facility] ([facility])[address] [place] [address] PLASMA CELLS/100 LEUKOCYTES IN BLOOD 0 % Normal 0 [facility] Comment on above: Performed By: #### L [id number] ####[facility] ([facility])[address] [place] [address] PLATELETS GIANT PRESENCE IN BLOOD BY LIGHT MICROSCOPY Present Normal [facility] Comment on above: Performed By: #### L [id number] ####[facility] ([facility])[address] [place] [address] POIKILOCYTOSIS (PRESENCE) IN BLOOD BY LIGHT MICROSCOPY Slight Normal [facility] Comment on above: Performed By: #### L [id number] ####[facility] ([facility])[address] [place] [address] POLYCHROMASIA IN BLOOD BY LIGHT MICROSCOPY Slight Normal [facility] Comment on above: Performed By: #### L [id number] ####[facility] ([facility])[address] [place] [address] SMUDGE CELLS/100 LEUKOCYTES IN BLOOD CELLAVISION Present Normal [facility] Comment on above: Performed By: #### L [id number] ####[facility] ([facility])[address] [place] [address] VARIANT LYMPHOCYTES (10*3/UL) IN BLOOD BY CALCULATION 0.00 10*3/uL Normal 0.00 [facility] Comment on above: Performed By: #### L [id number] ####[facility] ([facility])[address] [place] [address] VARIANT LYMPHOCYTES/100 LEUKOCYTES IN BLOOD CELLAVISION 0.0 % Normal 0.0-0.0 [facility] Comment on above: Performed By: #### L [id number] ####[facility] ([facility])[address] [place] [address] NURSNOTEon 11-15-2023 NURSNOTE Normal [facility] NURSNOTE Normal [facility] PHOSPHORUSon 11-15-2023 Magnesium [Mass/Vol] 8.6 mg/dL High 2.5-5.0 [facility] Comment on above: Performed By: #### L [id number] ####[facility] ([facility])[address] [place] [address] Magnesium [Mass/Vol] 6.0 mg/dL High 2.5-5.0 [facility] Comment on above: Performed By: #### L [id number] ####[facility] ([facility])[address] [facility] [place] [address] POCT GLUCOSE METER UNSOLICIT ED RESULTSon 11-15-2023 Glucose [Mass/Vol] 165 mg/dL High 70-105 [facility] Comment on above: Order Comment: Waive d Testing in the ED is performed under the ED CLIA certificate #[id number]. Result Comment: [email or web address] Performed By: #### L [id number] ####[facility] ([facility])[address] [place] [address] Glucose [Mass/Vol] 208 mg/dL High 70-105 [facility] Comment on above: Order Comment: Waive d Testing in the ED is performed under the ED CLIA certificate #[id number]. Result Comment: mmcc vargas Performed By: #### L [id number] ####[facility] ([facility])[address] [place] [address] POCT PERFUSION PANEL UNSOLIC ITED RESULTSon 11-15-2023 CO2 [Moles/Vol] 20.0 mmol/L Low 21.0-29.0 [facility] Comment on above: Performed By: #### L [id number] ####[facility] ([facility])[address] [place] [address] Glucose [Mass/Vol] 210 mg/dL High 70-105 [facility] Comment on above: Performed By: #### L [id number] ####[facility] (BEAKER)[address] [address] HCO3 (Bld) [Moles/Vol] 18.9 mmol/L Low 23.0-28.0 [facility] Comment on above: Performed By: #### L [id number] ####[facility] LAB (BEAKER)[address] [address] Hematocrit (Bld) [Volume fraction] 26 % Low 38-51 [facility] Comment on above: Performed By: #### L [id number] ####[facility] LAB (BEAKER)[address] [address] Hemoglobin (Bld) [Mass/Vol] 8.8 g/dL Low 12.0-17.0 [facility] Comment on above: Performed By: #### L [id number] ####[facility] LAB (BEAKER)[address] [address] POCT BASE EXCESS -7.0 mmol/L Low -2.0-3.0 [facility] Comment on above: Performed By: #### L [id number] ####[facility] LAB (BEAKER)[address] [address] POCT IONIZED CALCIUM 1.15 mmol/L Normal 1.12-1.32 [facility] Comment on above: Performed By: #### L [id number] ####[facility] LAB (BEAKER)[address] [place] [address] POCT PCO2 39.7 mmHg Low 41.0-51.0 [facility] Comment on above: Performed By: #### L [id number] ####[facility] LAB (BEAKER)[address] [place] [address] POCT PH 7.29 Low 7.31-7.41 [facility] Comment on above: Performed By: #### L [id number] ####[facility] LAB (BEAKER)[address] [place] [address] POCT PO2 68 mmHg Low 80-105 [facility] Comment on above: Performed By: #### L [id number] ####[facility] LAB ([facility])[address] [address] POCT SO2 91 % Low 95-98 [facility] Comment on above: Performed By: #### L [id number] ####[facility] ([facility])[address] [place] [address] Potassium [Moles/Vol] 3.8 mmol/L Normal 3.5-4.9 [facility] Comment on above: Performed By: #### L [id number] ####[facility] ([facility])[address] [place] [address] Sodium [Moles/Vol] 142 mmol/L Normal 138.0-146.0 [facility] Comment on above: Performed By: #### L [id number] ####[facility] ([facility])[address] [place] [address] POTASSIUM, WHOLE BLOODon Potassium [Moles/Vol] 3.1 mmol/L Low 3.5-5.1 [facility] Comment on above: Performed By: #### P OTASSIUM, WHOLE BLOOD ####[facility] RESPIRAT[facility] [id number] [place] [address] [place] Potassium [Moles/Vol] 3.9 mmol/L Normal 3.5-5.1 [facility] Comment on above: Performed By: #### P OTASSIUM, WHOLE BLOOD ####[facility] RESPIRATORY [id number] [place] [address] [place] Potassium [Moles/Vol] 3.8 mmol/L Normal 3.5-5.1 [facility] Comment on above: Performed By: #### P OTASSIUM, WHOLE BLOOD ####[facility] RESPIRATORY [id number] [place] [address] [facility] Potassium [Moles/Vol] 5.1 mmol/L Normal 3.5-5.1 [facility] Comment on above: Performed By: #### P OTASSIUM, WHOLE BLOOD ####[facility] RESPIRATORY [id number] [place] [address] [facility] PROTIME-INRon 11-15-2023 INR IN PPP BY COAGULATION ASSAY 11.87 Critically high 0.90-1.10 [facility] Comment on above: Result Comment: ACCC [...] CHEST 1995;108:231S-246S. Performed By: #### L [id number] ####[facility] LAB (BEAKER)[address] [place] [address] PROTHROMBIN TIME (PT) IN PPP BY COAGULATION ASSAY 92.6 Seconds Critically high 12.3-14.8 [facility] Comment on above: Performed By: #### L [id number] ####[facility] LAB (BEAKER)[address] [place] [address] INR IN PPP BY COAGULATION ASSAY 12.96 Critically high 0.90-1.10 [facility] Comment on above: Result Comment: ACCC [...] CHEST 1995;108:231S-246S. Performed By: #### L [id number] ####[facility] LAB (BEAKER)[address] [place] [address] PROTHROMBIN TIME (PT) IN PPP BY COAGULATION ASSAY 99.2 Seconds Critically high 12.3-14.8 [facility] Comment on above: Performed By: #### L [id number] ####[facility] LAB (BEAKER)[address] [place] [address] SODIUM, WHOLE BLOODon 2023 SODIUM, WHOLE BLOOD 143 Normal 136-145 [facility] Comment on above: Performed By: #### S ODIUM, WHOLE BLOOD ####[facility] RESPIRATORY [id number] [place] [address] [facility] SODIUM, WHOLE BLOOD 142 Normal 136-145 [facility] Comment on above: Performed By: #### S ODIUM, WHOLE BLOOD ####[facility] RESPIRATORY [id number] [place] [address] [facility] SODIUM, WHOLE BLOOD 140 Normal 136-145 [facility] Comment on above: Performed By: #### S ODIUM, WHOLE BLOOD ####[facility] RESPIRATORY [id number] [address] [place] [address] [facility] SODIUM, WHOLE BLOOD 138 Normal 136-145 [facility] Comment on above: Performed By: #### S ODIUM, WHOLE BLOOD ####[facility] RESPIRATORY [id number] [place] [address] [place] TROPONIN Ion 11-15-2023 Troponin I.cardiac [Mass/Vol] 0.10 ng/mL High 0.00-0.04 [facility] Comment on above: Performed By: #### L [id number] ####[facility] [place] [address] VANCOMYCIN, PEAKon VANCOMYCIN (UG/ML) IN SER/PLAS - PEAK 21.0 ug/mL Normal 20.0-50.0 [facility] Comment on above: Performed By: #### L [id number] ####[facility] [place] [address] VITAMIN D 25 HYDROXYon 11-14 CALCIDIOL (25 [place] VITAMIN D3) (NG/ML) IN SER/PLAS 26.1 ng/mL Low 30.0-80.0 [facility] Comment on above: Result Comment: >80. 0 Toxicity possible Performed By: #### L [id number] ####[facility] LAB (BEAKER)[address] [place] [address] 30on 11-14-2023 30 Normal [facility] 30 Normal [facility] ANESon 11-14-2023 ANES Normal [facility] ARTERIAL BLOOD GAS WITH CO-O XIMETRYon 11-14-2023 Base excess Calc (Bld) [Moles/Vol] 2.2 mmol/L Normal -2.0-3.0 [facility] Comment on above: Order Comment: Pt in tubated in OR Performed By: #### L [id number] ####[facility] RESPIRATORY [id number] [place] [address] [facility] CARBOXYHEMOGLOBIN/HEM OGLOBIN TOTAL % IN BLOOD 1.5 % Normal 0.0-3.0 [facility] Comment on above: Order Comment: Pt in tubated in OR Performed By: #### L [id number] ####[facility] RESPIRATORY [id number] [place] [address] [facility] CO2 (Bld) [Partial pressure] 39 mm[Hg] Normal 35-48 [facility] Comment on above: Order Comment: Pt in tubated in OR Performed By: #### L [id number] ####[facility] RESPIRATORY [id number] [place] [address] [facility] DEOXYGENATED HEMOGLOBIN IN BLOOD 0.9 % Low 1-5 [facility] Comment on above: Order Comment: Pt in tubated in [place] Performed By: #### L [id number] ####[facility] RESPIRATORY [id number] [place] [address] [facility] HCO3 (Bld) [Moles/Vol] 26.5 mmol/L Normal 21.0-28.0 [facility] Comment on above: Order Comment: Pt in tubated in [place] Performed By: #### L [id number] ####[facility] RESPIRATORY [id number] [place] [address] [facility] Hemoglobin (Bld) [Mass/Vol] 9.0 g/dL Low 11.7-17.4 [facility] Comment on above: Order Comment: Pt in tubated in [place] Performed By: #### L [id number] ####[facility] RESPIRATORY [id number] [address] [facility] [place] [address] [place] METHEMOGLOBIN/100 IN BLOOD 0.2 % Normal 0.0-1.5 [facility] Comment on above: Order Comment: Pt in tubated in [place] Performed By: #### L [id number] ####[facility] RESPIRATORY [id number] [address] [facility] [place] [address] [facility] Oxygen (Bld) [Partial pressure] 125 mm[Hg] High 83-100 [facility] Comment on above: Order Comment: Pt in tubated in [place] Performed By: #### L [id number] ####[facility] RESPIRATORY [id number] [facility] [place] [address] [facility] OXYGEN SATURATION (%) IN ARTERIAL BLOOD 99.1 % High 94.0-98.0 [facility] Comment on above: Order Comment: Pt in tubated in [place] Performed By: #### L [id number] ####[facility] RESPIRATORY [id number] [address] [facility] [address] [place] OXYGENATED HEMOGLOBIN IN BLOOD 97.4 % High 90.0-95.0 [facility] Comment on above: Order Comment: Pt in tubated in [place] Performed By: #### L [id number] ####[facility] RESPIRATORY [id number] [address] [address] [facility] pH (Bld) 7.44 [pH] Normal 7.35-7.45 [facility] Comment on above: Order Comment: Pt in tubated in [place] Performed By: #### L [id number] ####[facility] RESPIRATORY [id number] [address] [facility] [place] [address] [facility] SOURCE OF OXYGEN Vent Normal [facility] Comment on above: Order Comment: Pt in tubated in [place] Performed By: #### L [id number] ####[facility] RESPIRATORY [id number] [address] [facility] [place] [address] [place] Base excess Calc (Bld) [Moles/Vol] 7.0 mmol/L High -2.0-3.0 [facility] Comment on above: Performed By: #### L [id number] ####[facility] RESPIRATORY [id number] [address] [facility] [place] [address] [place] CARBOXYHEMOGLOBIN/HEM OGLOBIN TOTAL % IN BLOOD 1.4 % Normal 0.0-3.0 [facility] Comment on above: Performed By: #### L [id number] ####[facility] RESPIRATORY [id number] [address] [address] [place] CO2 (Bld) [Partial pressure] 33 mm[Hg] Low 35-48 [facility] Comment on above: Performed By: #### L [id number] ####[facility] RESPIRATORY [id number] [address] [facility] [address] [place] DEOXYGENATED HEMOGLOBIN IN BLOOD 1.2 % Normal 1-5 [facility] Comment on above: Performed By: #### L [id number] ####[facility] RESPIRATORY [id number] [place] [address] [facility] HCO3 (Bld) [Moles/Vol] 29.5 mmol/L High 21.0-28.0 [facility] Comment on above: Performed By: #### L [id number] ####[facility] RESPIRATORY [id number] [place] [address] [facility] Hemoglobin (Bld) [Mass/Vol] 9.7 g/dL Low 11.7-17.4 [facility] Comment on above: Performed By: #### L [id number] ####[facility] RESPIRATORY [id number] [place] [address] [facility] METHEMOGLOBIN/100 IN BLOOD 0.7 % Normal 0.0-1.5 [facility] Comment on above: Performed By: #### L [id number] ####[facility] RESPIRATORY [id number] [place] [address] [facility] Oxygen (Bld) [Partial pressure] 135 mm[Hg] High 83-100 [facility] Comment on above: Performed By: #### L [id number] ####[facility] RESPIRATORY [id number] [place] [address] [facility] OXYGEN SATURATION (%) IN ARTERIAL BLOOD 98.8 % High 94.0-98.0 [facility] Comment on above: Performed By: #### L [id number] ####[facility] RESPIRATORY [id number] [place] [address] [facility] OXYGENATED HEMOGLOBIN IN BLOOD 96.7 % High 90.0-95.0 [facility] Comment on above: Performed By: #### L [id number] ####[facility] RESPIRATORY [id number] [place] [address] [facility] pH (Bld) 7.56 [pH] Critically high 7.35-7.45 [facility] Comment on above: Performed By: #### L [id number] ####[facility] RESPIRATORY [id number] [place] [address] [facility] SOURCE OF OXYGEN Vent Normal [facility] Comment on above: Performed By: #### L [id number] ####[facility] RESPIRATORY [id number] [place] [address] [facility] BASIC METABOLIC PANELon 07-0 Anion gap [Moles/Vol] 12 mmol/L Normal 7-20 [facility] Comment on above: Performed By: #### L [id number] ####[facility] ([facility])[address] [place] [address] Calcium [Mass/Vol] 7.4 mg/dL Low 8.6-10.3 [facility] Comment on above: Performed By: #### L [id number] ####[facility] LAB ([facility])[address] [place] [address] Chloride [Moles/Vol] 105 mmol/L Normal 98-107 [facility] Comment on above: Performed By: #### L [id number] ####[facility] LAB ([facility])[address] [place] [address] CO2 [Moles/Vol] 31 mmol/L Normal 21-31 [facility] Comment on above: Performed By: #### L [id number] ####[facility] LAB ([facility])[address] [place] [address] Creatinine [Mass/Vol] 0.91 mg/dL Normal 0.60-1.20 [facility] Comment on above: Performed By: #### L [id number] ####[facility] LAB ([facility])[address] [place] [address] GLOMERULAR FILTRATION RATE ML/MIN/1.73 SQ M.PREDICTED 64.2 mL/min/1.73m*2 Normal >60.0 [facility] Comment on above: Result Comment: [facility]???s estimated glomerular filtration rate (eGFR) will [...] of individuals. Performed By: #### L [id number] ####[facility] LAB ([facility])[address] [place] [address] Glucose [Mass/Vol] 120 mg/dL High 70-100 [facility] Comment on above: Performed By: #### L [id number] ####[facility] LAB ([facility])[address] [facility] [place] [address] Potassium [Moles/Vol] 4.1 mmol/L Normal 3.5-5.1 [facility] Comment on above: Performed By: #### L [id number] ####[facility] LAB ([facility])[address] [place] [address] Sodium [Moles/Vol] 144 mmol/L Normal 136-145 [facility] Comment on above: Performed By: #### L [id number] ####[facility] LAB ([facility])[address] [facility] [place] [address] Urea nitrogen [Mass/Vol] 24 mg/dL Normal 7-25 [facility] Comment on above: Performed By: #### L [id number] ####[facility] LAB ([facility])[address] [place] [address] UREA NITROGEN/CREATININE (MASS RATIO) IN SER/PLAS 26.4 Normal [facility] Comment on above: Performed By: #### L [id number] ####[facility] LAB ([facility])[address] [place] [address] CALCIUM, IONIZEDon CALCIUM IONIZED (MMOL/L) IN BLOOD 1.17 mmol/L Normal 1.15-1.33 [facility] Comment on above: Performed By: #### C ALCIUM, IONIZED ####[facility] RESPIRATORY [id number] [place] [address] [place] CBC WITH AUTO DIFFERENTIALon 11-14-2023 Basophils (Bld) [#/Vol] 0.03 10*3/uL Normal 0.00-0.20 [facility] Comment on above: Performed By: #### L [id number] ####[facility] LAB (BEAKER)[address] [place] [address] Basophils/100 WBC (Bld) 0.4 % Normal 0.0-1.0 [facility] Comment on above: Performed By: #### L [id number] ####[facility] LAB (BEAKER)[address] [place] [address] Eosinophils (Bld) [#/Vol] 0.00 10*3/uL Normal 0.00-0.50 [facility] Comment on above: Performed By: #### L [id number] ####[facility] [place] [address] Eosinophils/100 WBC (Bld) 0.0 % Normal 0.0-6.0 [facility] Comment on above: Performed By: #### L [id number] ####[facility] [place] [address] Erythrocyte distribution width (RBC) [Ratio] 16.0 % High 11.5-15.0 [facility] Comment on above: Performed By: #### L [id number] ####[facility] LAB (BEAKER)[address] [place] [address] ERYTHROCYTE MEAN CORPUSCULAR HEMOGLOBIN CONCENTRATION (G/DL) BY AUTOMATED 30.2 g/dL Low 32.0-35.0 [facility] Comment on above: Performed By: #### L [id number] ####[facility] LAB (BEAKER)[address] [place] [address] Hematocrit (Bld) [Volume fraction] 32.1 % Low 36.0-48.0 [facility] Comment on above: Performed By: #### L [id number] ####[facility] LAB (BEAKER)[address] [place] [address] Hemoglobin (Bld) [Mass/Vol] 9.7 g/dL Low 12.0-15.0 [facility] Comment on above: Performed By: #### L [id number] ####[facility] LAB (BEAKER)[address] [place] [address] Immature granulocytes (Bld) [#/Vol] 0.07 10*3/uL Normal 0.00-0.20 [facility] Comment on above: Performed By: #### L [id number] ####[facility] [place] [address] Immature granulocytes/100 WBC (Bld) 0.8 % Normal 0.0-1.0 [facility] Comment on above: Performed By: #### L [id number] ####[facility] LAB ([facility])[address] [place] [address] Lymphocytes (Bld) [#/Vol] 1.34 10*3/uL Normal 1.20-4.00 [facility] Comment on above: Performed By: #### L [id number] ####[facility] [place] [address] Lymphocytes/100 WBC (Bld) 15.9 % Low 20.0-45.0 [facility] Comment on above: Performed By: #### L [id number] ####[facility] LAB ([facility])[address] [place] [address] MCH (RBC) [Entitic mass] 29.1 pg Normal 27.0-33.0 [facility] Comment on above: Performed By: #### L [id number] ####[facility] LAB (BEAKER)[address] [place] [address] MCV (RBC) [Entitic vol] 96.4 fL Normal 82.0-98.0 [facility] Comment on above: Performed By: #### L [id number] ####[facility] LAB (BEAKER)[address] [place] [address] Monocytes (Bld) [#/Vol] 0.77 10*3/uL Normal 0.10-1.00 [facility] Comment on above: Performed By: #### L [id number] ####[facility] LAB (BEAKER)[address] [place] [address] Monocytes/100 WBC (Bld) 9.1 % Normal 5.0-12.0 [facility] Comment on above: Performed By: #### L [id number] ####[facility] LAB (BEAKER)[address] [place] [address] Neutrophils (Bld) [#/Vol] 6.22 10*3/uL Normal 1.60-7.60 [facility] Comment on above: Performed By: #### L [id number] ####[facility] LAB (BEAKER)[address] [place] [address] Neutrophils/100 WBC (Bld) 73.8 % High 40.0-72.0 [facility] Comment on above: Performed By: #### L [id number] ####[facility] [place] [address] NRBC (PER 100 WBCS) BY AUTOMATED COUNT 0.0 % Normal 0 [facility] Comment on above: Performed By: #### L [id number] ####[facility] LAB (BEAKER)[address] [place] [address] PLATELETS (10*3/UL) IN BLOOD AUTOMATED COUNT 223 10*3/uL Normal 150-400 [facility] Comment on above: Performed By: #### L [id number] ####[facility] LAB (BEAKER)[address] [place] [address] RBC (Bld) [#/Vol] 3.33 10*6/uL Low 3.80-5.00 [facility] Comment on above: Performed By: #### L [id number] ####[facility] LAB (BEAKER)[address] [place] [address] WBC (Bld) [#/Vol] 8.43 10*3/uL Normal 4.00-10.60 [facility] Comment on above: Performed By: #### L [id number] ####[facility] LAB (BEAKER)[address] [place] [address] CONSULTon 11-14-2023 CONSULT Normal [facility] HPon 11-14-2023 HP Normal [facility] MAGNESIUMon 11-14-2023 Magnesium [Mass/Vol] 1.7 mg/dL Low 1.9-2.7 [facility] Comment on above: Performed By: #### L [id number] ####[facility] LAB ([facility])[address] [place] [address] OPNOTEon 11-14-2023 OPNOTE Normal [facility] PHOSPHORUSon 11-14-2023 Magnesium [Mass/Vol] 4.5 mg/dL Normal 2.5-5.0 [facility] Comment on above: Performed By: #### L [id number] ####[facility] LAB ([facility])[address] [place] [address] POCT GLUCOSE METER UNSOLICIT ED RESULTSon 11-14-2023 Glucose [Mass/Vol] 181 mg/dL High 70-105 [facility] Comment on above: Order Comment: Waive d Testing in the ED is performed under the ED CLIA certificate #[id number]. Result Comment: czyd orc Performed By: #### L [id number] ####[facility] LAB ([employer])[address] [place] [address] Glucose [Mass/Vol] 120 mg/dL High 70-105 [facility] Comment on above: Order Comment: Waive d Testing in the ED is performed under the ED CLIA certificate #[id number]. Result Comment: epaw low Performed By: #### L [id number] ####[facility] LAB ([email or web address])[address] [place] [address] Glucose [Mass/Vol] 113 mg/dL High 70-105 [facility] Comment on above: Order Comment: Waive d Testing in the ED is performed under the ED CLIA certificate #[id number]. Result Comment: epoo [email or web address] Performed By: #### L [id number] ####[facility] LAB ([employer])[address] [place] [address] Glucose [Mass/Vol] 131 mg/dL High 70-105 [facility] Comment on above: Order Comment: Waive d Testing in the ED is performed under the ED CLIA certificate #[id number]. Result Comment: lzwo judith Performed By: #### L [id number] ####[facility] ([facility])[address] [place] [address] Glucose [Mass/Vol] 111 mg/dL High 70-105 [facility] Comment on above: Order Comment: Waive d Testing in the ED is performed under the ED CLIA certificate #[id number]. Result Comment: lzwo judith Performed By: #### L [id number] ####[facility] ([facility])[address] [place] [address] POTASSIUM, WHOLE BLOODon Potassium [Moles/Vol] 4.0 mmol/L Normal 3.5-5.1 [facility] Comment on above: Performed By: #### P OTASSIUM, WHOLE BLOOD ####[facility] [id number] [place] [address] [facility] SODIUM, WHOLE BLOODon 2023 SODIUM, WHOLE BLOOD 139 Normal 136-145 [facility] Comment on above: Performed By: #### S ODIUM, WHOLE BLOOD ####[facility] [id number] [place] [address] [facility] APTTon 11-13-2023 ACTIVATED PARTIAL THROMBOPLASTIN TIME IN PPP BY COAGULATION ASSAY 34.0 Seconds Normal 25.0-35.0 [facility] Comment on above: Result Comment: Clin ical significance of the APTT is questionable in the presence of heparin. Performed By: #### L [id number] ####[facility] ([facility])[address] [place] [address] BASIC METABOLIC PANELon Anion gap [Moles/Vol] 16 mmol/L Normal 7-20 [facility] Comment on above: Performed By: #### L [id number] ####[facility] ([facility])[address] [place] [address] Calcium [Mass/Vol] 7.8 mg/dL Low 8.6-10.3 [facility] Comment on above: Performed By: #### L [id number] ####[facility] [place] [address] Chloride [Moles/Vol] 104 mmol/L Normal 98-107 [facility] Comment on above: Performed By: #### L [id number] ####[facility] ([facility])[address] [place] [address] CO2 [Moles/Vol] 27 mmol/L Normal 21-31 [facility] Comment on above: Performed By: #### L [id number] ####[facility] ([facility])[address] [place] [address] Creatinine [Mass/Vol] 0.91 mg/dL Normal 0.60-1.20 [facility] Comment on above: Performed By: #### L [id number] ####[facility] ([facility])[address] [place] [address] GLOMERULAR FILTRATION RATE ML/MIN/1.73 SQ M.PREDICTED 64.2 mL/min/1.73m*2 Normal >60.0 [facility] Comment on above: Result Comment: [facility]???s estimated glomerular filtration rate (eGFR) will [...] of individuals. Performed By: #### L [id number] ####[facility] ([facility])[address] [place] [address] Glucose [Mass/Vol] 125 mg/dL High 70-100 [facility] Comment on above: Performed By: #### L [id number] ####[facility] ([facility])[address] [place] [address] Potassium [Moles/Vol] 4.4 mmol/L Normal 3.5-5.1 [facility] Comment on above: Performed By: #### L [id number] ####[facility] ([facility])[address] [place] [address] Sodium [Moles/Vol] 143 mmol/L Normal 136-145 [facility] Comment on above: Performed By: #### L [id number] ####[facility] ([facility] [place] [address] Urea nitrogen [Mass/Vol] 23 mg/dL Normal 7-25 [facility] Comment on above: Performed By: #### L [id number] ####[facility] ([facility])[address] [place] [address] UREA NITROGEN/CREATININE (MASS RATIO) IN SER/PLAS 25.3 Normal [facility] Comment on above: Performed By: #### L [id number] ####[facility] ([facility])[address] [place] [address] CBC WITH AUTO DIFFERENTIALon 11-13-2023 Basophils (Bld) [#/Vol] 0.03 10*3/uL Normal 0.00-0.20 [facility] Comment on above: Performed By: #### L [id number] ####[facility] ([facility])[address] [place] [address] Basophils/100 WBC (Bld) 0.3 % Normal 0.0-1.0 [facility] Comment on above: Performed By: #### L [id number] ####[facility] ([facility])[address] [place] [address] Eosinophils (Bld) [#/Vol] 0.00 10*3/uL Normal 0.00-0.50 [facility] Comment on above: Performed By: #### L [id number] ####[facility] ([facility])[address] [place] [address] Eosinophils/100 WBC (Bld) 0.0 % Normal 0.0-6.0 [facility] Comment on above: Performed By: #### L [id number] ####[facility] ([facility])[address] [place] [address] Erythrocyte distribution width (RBC) [Ratio] 15.9 % High 11.5-15.0 [facility] Comment on above: Performed By: #### L [id number] ####[facility] ([facility])[address] [place] [address] ERYTHROCYTE MEAN CORPUSCULAR HEMOGLOBIN CONCENTRATION (G/DL) BY AUTOMATED 30.4 g/dL Low 32.0-35.0 [facility] Comment on above: Performed By: #### L [id number] ####[facility] ([facility])[address] [place] [address] Hematocrit (Bld) [Volume fraction] 36.2 % Normal 36.0-48.0 [facility] Comment on above: Performed By: #### L [id number] ####[facility] ([facility])[address] [place] [address] Hemoglobin (Bld) [Mass/Vol] 11.0 g/dL Low 12.0-15.0 [facility] Comment on above: Performed By: #### L [id number] ####[facility] ([facility])[address] [place] [address] Immature granulocytes (Bld) [#/Vol] 0.09 10*3/uL Normal 0.00-0.20 [facility] Comment on above: Performed By: #### L [id number] ####[facility] ([facility])[address] [place] [address] Immature granulocytes/100 WBC (Bld) 0.9 % Normal 0.0-1.0 [facility] Comment on above: Performed By: #### L [id number] ####[facility] ([facility])[address] [place] [address] Lymphocytes (Bld) [#/Vol] 1.28 10*3/uL Normal 1.20-4.00 [facility] Comment on above: Performed By: #### L [id number] ####[facility] ([facility])[address] [place] [address] Lymphocytes/100 WBC (Bld) 12.4 % Low 20.0-45.0 [facility] Comment on above: Performed By: #### L [id number] ####[facility] ([facility])[address] [place] [address] MCH (RBC) [Entitic mass] 28.8 pg Normal 27.0-33.0 [facility] Comment on above: Performed By: #### L [id number] ####[facility] ([facility])[address] [place] [address] MCV (RBC) [Entitic vol] 94.8 fL Normal 82.0-98.0 [facility] Comment on above: Performed By: #### L [id number] ####[facility] ([facility])[address] [place] [address] Monocytes (Bld) [#/Vol] 0.73 10*3/uL Normal 0.10-1.00 [facility] Comment on above: Performed By: #### L [id number] ####[facility] ([facility])[address] [place] [address] Monocytes/100 WBC (Bld) 7.1 % Normal 5.0-12.0 [facility] Comment on above: Performed By: #### L [id number] ####[facility] ([facility])[address] [place] [address] Neutrophils (Bld) [#/Vol] 8.21 10*3/uL High 1.60-7.60 [facility] Comment on above: Performed By: #### L [id number] ####[facility] ([facility])[address] [place] [address] Neutrophils/100 WBC (Bld) 79.3 % High 40.0-72.0 [facility] Comment on above: Performed By: #### L [id number] ####[facility] ([facility])[address] [place] [address] NRBC (PER 100 WBCS) BY AUTOMATED COUNT 0.0 % Normal 0 [facility] Comment on above: Performed By: #### L [id number] ####[facility] ([facility])[address] [place] [address] PLATELETS (10*3/UL) IN BLOOD AUTOMATED COUNT 262 10*3/uL Normal 150-400 [facility] Comment on above: Performed By: #### L [id number] ####[facility] ([facility])[address] [place] [address] RBC (Bld) [#/Vol] 3.82 10*6/uL Normal 3.80-5.00 [facility] Comment on above: Performed By: #### L [id number] ####[facility] ([facility])[address] [place] [address] WBC (Bld) [#/Vol] 10.34 10*3/uL Normal 4.00-10.60 [facility] Comment on above: Performed By: #### L [id number] ####[facility] ([facility])[address] [place] [place] [address] CONSULTon 11-13-2023 CONSULT Normal [facility] CT FEMUR LEFT WO IV CONTRAST on 11-13-2023 CT FEMUR LEFT WO IV CONTRAST Invalid Interpretation Code [facility] HPon 11-13-2023 HP Normal [facility] MAGNESIUMon 11-13-2023 Magnesium [Mass/Vol] 1.8 mg/dL Low 1.9-2.7 [facility] Comment on above: Performed By: #### L [id number] ####[facility] ([facility] [place] [address] PROTIME-INRon 11-13-2023 INR IN PPP BY COAGULATION ASSAY 1.79 High 0.90-1.10 [facility] Comment on above: Result Comment: ACCC [...] CHEST 1995;[id number]. Performed By: #### L [id number] ####[facility] ([employer])[address] [place] [address] PROTHROMBIN TIME (PT) IN PPP BY COAGULATION ASSAY 20.9 Seconds High 12.3-14.8 [facility] Comment on above: Performed By: #### L [id number] ####[facility] ([email or web address])[address] [place] [address] TROPONIN Ion 11-13-2023 Troponin I.cardiac [Mass/Vol] 0.02 ng/mL Normal 0.00-0.04 [facility] Comment on above: Performed By: #### L [id number] ####[facility] ([email or web address])[address] [place] [address] TYPE AND SCREENon 11-13-2023 AB SCREEN Negative Normal [facility] Comment on above: Performed By: #### L [id number] ####[facility], ABO group Nom (Bld) O Normal [facility] Comment on above: Performed By: #### L [id number] ####[facility], RH TYPE IN BLOOD Positive Normal [facility] Comment on above: Performed By: #### L [id number] ####[facility], VIT D 25-[place] [facility] 2022 Vitamin D, 25-Hydroxy 35.9 ng/mL Normal 30.0-100.0 [facility] Comment on above: Result Comment: Jadyn min D deficiency has been defined by the [place] [employer] and an Endocrine Society practice guideline as a level of serum 25-OH vitamin D less than 20 ng/mL (1,2). The Endocrine Society went on to further define vitamin D insufficiency as a level between 21 and 29 ng/mL (2). 1. IOM ([place] [employer]). 2010. Dietary reference intakes for calcium and D. [place]: The National Academies Press. 2. Yamilex ALDANA, Florecita CAMP, Stella OTTO, et al. Evaluation, treatment, and prevention of vitamin D deficiency: an Endocrine Society clinical practice guideline. JCEM. 2010; 96(7):1911-30. Performed By: #### V ITADLC #### [facility] [address] [place] [address] Dr. Ashwin Key CBC AUTO DIFFon 08-22-2022 BASO # 0.0 103/ul Normal 0.0-0.1 [facility] Comment on above: Performed By: #### C BC #### [facility] [address] [place] [address] Dr. Ashwin Key Basophils/100 WBC (Bld) 0.5 % Normal 0.2-2.0 [facility] Comment on above: Performed By: #### C BC #### [facility] [address] [address] [address] Ashwin Key EO # 0.0 103/ul Normal 0.0-0.7 [facility] Comment on above: Performed By: #### C BC #### [facility] [address] [place] [address] Dr. Ashwin Key Eosinophils/100 WBC (Bld) 0.0 % Critically low 0.9-7.0 [facility] Comment on above: Performed By: #### C BC #### [facility] [address] [place] [address] Dr. Ashwin Key Erythrocyte distribution width (RBC) [Ratio] 14.7 % Normal 11.0-15.0 [facility] Comment on above: Performed By: #### C BC #### [facility] [address] [place] [address] Dr. Ashwin Key Hematocrit (Bld) [Volume fraction] 38.0 % Normal 36.0-48.0 [facility] Comment on above: Performed By: #### C BC #### [facility] [address] [place] [address] Dr. Ashwin Key Hemoglobin (Bld) [Mass/Vol] 11.5 g/dL Critically low 12.0-16.0 [facility] Comment on above: Performed By: #### C BC #### [facility] [address] [place] [address] Dr. Ashwin Key IG # 0.01 10e3/ul Normal 0.00-0.03 [facility] Comment on above: Performed By: #### C BC #### [facility] [address] [place] [address] Dr. Ashwin Key IG % 0.2 % Normal 0.0-0.5 [facility] Comment on above: Performed By: #### C BC #### [facility] [address] [place] [address] Dr. Ashwin Key LYMPH # 2.1 103/ul Normal 1.2-3.8 [facility] Comment on above: Performed By: #### C BC #### [facility] [address] [place] [address] Dr. Ashwin Key Lymphocytes/100 WBC (Bld) 48.4 % Normal 20.5-60.0 [facility] Comment on above: Performed By: #### C BC #### [facility] [address] [place] [address] Dr. Ashwin Key MANUAL DIFF REQ NO Normal [facility] Comment on above: Performed By: #### C BC #### [facility] [address] [address] [address] Ashwin Key MCH (RBC) [Entitic mass] 28.8 pg Normal 26.7-34.0 [facility] Comment on above: Performed By: #### C BC #### [facility] [address] [place] [address] Dr. Ashwin Key MCHC (RBC) [Mass/Vol] 30.3 g/dL Normal 29.9-35.2 [facility] Comment on above: Performed By: #### C BC #### [facility] [address] [place] [address] Dr. Ashwin Key MCV (RBC) [Entitic vol] 95.0 fL Normal 81.0-99.0 [facility] Comment on above: Performed By: #### C BC #### [facility] [address] [place] [address] Dr. Ashwin Key MONO # 0.4 103/ul Normal 0.3-0.8 [facility] Comment on above: Performed By: #### C BC #### [facility] [address] [place] [address] Dr. Ashwin Key Monocytes/100 WBC (Bld) 9.3 % Normal 1.7-12.0 [facility] Comment on above: Performed By: #### C BC #### [facility] [address] [place] [address] Dr. Ashwin Key NEUT # 1.8 103/ul Normal 1.4-6.5 [facility] Comment on above: Performed By: #### C BC #### [facility] [address] [place] [address] Dr. Ashwin Key Neutrophils/100 WBC (Bld) 41.6 % Critically low 43.0-75.0 [facility] Comment on above: Performed By: #### C BC #### [facility] [address] [place] [address] Dr. Ashwin Key Platelet mean volume (Bld) [Entitic vol] 10.3 fL Normal 9.5-13.5 [facility] Comment on above: Performed By: #### C BC #### [facility] [address] [address] [address] Ashwin Key PLT 166 103/ul Normal 150-450 [facility] Comment on above: Performed By: #### C BC #### [facility] [address] [address] [address] Ashwin Key RBC 4.00 106/ul Critically low 4.20-5.40 [facility] Comment on above: Performed By: #### C BC #### [facility] [address] [address] [address] Ashwin Key WBC 4.4 103/ul Normal 4.0-11.0 [facility] Comment on above: Performed By: #### C BC #### [facility] [address] [place] [address] Dr. Ashwin Key GLYCOHEMOGLOBIN A1Con 2022 ADA RECOMMENDATION SEE BELOW Normal [facility] Comment on above: Result Comment: ADA RECOMMENDED LIMIT 4.0 - 6.0 ADA THERAPEUTIC TARGET < 7.0 ACTION SUGGESTED > 7.0 Performed By: #### A 1C #### [facility] [address] [place] [address] Dr. Ashwin Key Glucose [Mass/Vol] 105 mg/dL Normal [facility] Comment on above: Performed By: #### A 1C #### [facility] [address] [place] [address] Dr. Ashwin Key HbA1c (Bld) [Mass fraction] 5.3 % Normal 4.5-6.2 [facility] Comment on above: Performed By: #### A 1C #### [facility] [address] [place] [address] Dr. Ashwin Key LIPID PROFILEon 08-22-2022 CHOL-HDL RATIO NORM SEE BELOW Normal [facility] Comment on above: Result Comment: 3.3 - 4.4 LOW RISK 4.4 - 7.1 AVERAGE RISK 7.1 - 11.0 MODERATE RISK >11.0 HIGH RISK Performed By: #### U ACSIND, UMICRO #### [facility] [address] [place] [address] Dr. Ashwin Key Cholesterol [Mass/Vol] 103 mg/dL Normal <=200 [facility] Comment on above: Performed By: #### U ACSJAZMIN UMICRO #### [facility] [address] [address] [address] Ashwin Key Cholesterol in HDL [Mass/Vol] 40 mg/dL Normal 40-60 [facility] Comment on above: Performed By: #### U ACSJAZMIN UMICRO #### [facility] [address] [address] [address] Ashwin Key Cholesterol in LDL [Mass/Vol] 51.8 mg/dL Normal [facility] Comment on above: Performed By: #### U ACSJAZMIN UMICRO #### [facility] [address] [address] [address] Ashwin Key Cholesterol.total/Cho lesterol in HDL [Mass ratio] 2.6 {ratio} Normal [facility] Comment on above: Performed By: #### U ACSJAZMIN UMICRO #### [facility] [address] [address] [address] Ashwin Key HDL NORMAL > or = 60 mg/dl - LO W CARDIOVASCULAR RISK <40 mg/dl - HIGH CARDIOVASCULAR RISK Normal [facility] Comment on above: Performed By: #### U ACSJAZMIN UMICRO #### [facility] [address] [address] [address] Ashwin Key LDL CALC NORMAL SEE BELOW Normal [facility] Comment on above: Result Comment: <100 mg/dl OPTIMAL 100 - 129 mg/dl NEAR OR ABOVE OPTIMAL 130 - 159 mg/dl BORDERLINE HIGH 160 - 189 mg/dl HIGH >190 mg/dl VERY HIGH Performed By: #### U ACSJAZMIN UMICRO #### [facility] [address] [address] [address] Ashwin Key Triglyceride [Mass/Vol] 56 mg/dL Normal <=150 [facility] Comment on above: Performed By: #### U ACSJAZMIN UMICRO #### [facility] [address] [address] [address] Ashwin Key VLDL CALC 11.2 mg/dL Normal [facility] Comment on above: Performed By: #### U JOEY BUTTRO #### [facility] [address] [address] [address] Ashwin Key PROF 14(COMP METB)on 023 Albumin [Mass/Vol] 2.5 g/dL Critically low 3.4-5.0 [facility] Comment on above: Performed By: #### U JOEY BUTTRO #### [facility] [address] [address] [address] Ashwin Key Albumin/Globulin [Mass ratio] 0.7 {ratio} Normal [facility] Comment on above: Performed By: #### U JOEY BUTTRO #### [facility] [address] [place] [address] Dr. Ashwin Key ALP [Catalytic activity/Vol] 110 U/L Normal 46-116 [facility] Comment on above: Performed By: #### JOEY DIEGORO #### [facility] [address] [address] [address] Ashwin Key ALT [Catalytic activity/Vol] 16 U/L Normal 14-59 [facility] Comment on above: Performed By: #### JOEY DIEGORO #### [facility] [address] [place] [address] Dr. Ashwin Key Anion gap [Moles/Vol] 9.8 mmol/L Normal [facility] Comment on above: Performed By: #### U JOEY BUTTRO #### [facility] [address] [address] [address] Ashwin Key AST [Catalytic activity/Vol] 13 U/L Critically low 15-37 [facility] Comment on above: Performed By: #### U JOEY BUTTRO #### [facility] [address] [place] [address] Dr. Ashwin Key Bilirubin [Mass/Vol] 0.4 mg/dL Normal 0.2-1.0 [facility] Comment on above: Performed By: #### U JOEY BUTTRO #### [facility] [address] [place] [address] Dr. Ashwin Key Calcium [Mass/Vol] 8.5 mg/dL Normal 8.5-10.1 [facility] Comment on above: Performed By: #### U ACSJAZMIN, UMICRO #### [facility] [address] [address] [address] Ashwin Key Chloride [Moles/Vol] 108 mmol/L Critically high 98-107 [facility] Comment on above: Performed By: #### U ACSJAZMIN, UMICRO #### [facility] [address] [address] [address] Ashwin Key CO2 [Moles/Vol] 31.0 mmol/L Normal 21.0-32.0 [facility] Comment on above: Performed By: #### U ACSJAZMIN UMICRO #### [facility] [address] [address] [address] Ashwin Key Creatinine [Mass/Vol] 0.91 mg/dL Normal 0.55-1.02 [facility] Comment on above: Performed By: #### U ACSJAZMIN, UMICRO #### [facility] [address] [address] [address] Ashwin Key EGFR-AF MAURITIAN >60 Normal >=60 [facility] Comment on above: Performed By: #### U ACSJAZMIN, UMICRO #### [facility] [address] [place] [address] Dr. Ashwin Key EGFR-NON AF MAURITIAN 60 mL/min/1.73m2 Normal >=60 [facility] Comment on above: Performed By: #### U ACSJAZMIN, UMICRO #### [facility] [address] [address] [address] Ashwin Key Globulin (S) [Mass/Vol] 3.5 g/dL Normal [facility] Comment on above: Performed By: #### U ACSJAZMIN, UMICRO #### [facility] [address] [address] [address] Ashwin Key Glucose [Mass/Vol] 99 mg/dL Normal 74-106 [facility] Comment on above: Performed By: #### U ACSIND, UMICRO #### [facility] [address] [place] [address] Dr. Ashwin Key Potassium [Moles/Vol] 3.8 mmol/L Normal 3.5-5.1 [facility] Comment on above: Performed By: #### U ACSJAZMIN UMICRO #### [facility] [address] [place] [address] Dr. Ashwin Key Protein [Mass/Vol] 6.0 g/dL Critically low 6.4-8.2 [facility] Comment on above: Performed By: #### U ACSJAZMIN UMICRO #### [facility] [address] [place] [address] Dr. Ashwin Key Sodium [Moles/Vol] 145 mmol/L Normal 136-145 [facility] Comment on above: Performed By: #### U ACSJAZMIN UMICRO #### [facility] [address] [place] [address] Dr. Ashwin Key Urea nitrogen [Mass/Vol] 24.0 mg/dL Critically high 7.0-18.0 [facility] Comment on above: Performed By: #### U FILOMENA ICRO #### [facility] [address] [place] [address] Dr. Ashwin Key Urea nitrogen/Creatinine [Mass ratio] 26.4 mg/mg Normal [facility] Comment on above: Performed By: #### U FILOMENA UMICRO #### [facility] [address] [place] [address] Dr. Ashwin Key TSHon 08-22-2022 TSH 5.573 uIU/mL Critically high 0.358-3.740 [facility] Comment on above: Performed By: #### U ACSJAZMIN UMICRO #### [facility] [address] [place] [address] Dr. Ashwin Key CBC AUTO DIFFon 08-10-2022 BASO # 0.0 103/ul Normal 0.0-0.1 [facility] Comment on above: Performed By: #### C BC #### [facility] [address] [place] [address] Dr. Ashwin Key Basophils/100 WBC (Bld) 0.7 % Normal 0.2-2.0 [facility] Comment on above: Performed By: #### C BC #### [facility] [address] [place] [address] Dr. Ashwin Key EO # 0.0 103/ul Normal 0.0-0.7 [facility] Comment on above: Performed By: #### C BC #### [facility] [address] [place] [address] Dr. Ashwin Key Eosinophils/100 WBC (Bld) 0.0 % Critically low 0.9-7.0 [facility] Comment on above: Performed By: #### C BC #### [facility] [address] [place] [address] Dr. Ashwin Key Erythrocyte distribution width (RBC) [Ratio] 15.1 % Critically high 11.0-15.0 [facility] Comment on above: Performed By: #### C BC #### [facility] [address] [place] [address] Dr. Ashwin Key Hematocrit (Bld) [Volume fraction] 38.0 % Normal 36.0-48.0 [facility] Comment on above: Performed By: #### C BC #### [facility] [address] [place] [address] Dr. Ashwin Key Hemoglobin (Bld) [Mass/Vol] 11.4 g/dL Critically low 12.0-16.0 [facility] Comment on above: Performed By: #### C BC #### [facility] [address] [place] [address] Dr. Ashwin Key IG # 0.02 10e3/ul Normal 0.00-0.03 [facility] Comment on above: Performed By: #### C BC #### [facility] [address] [place] [address] Dr. Ashwin Key IG % 0.5 % Normal 0.0-0.5 [facility] Comment on above: Performed By: #### C BC #### [facility] [address] [place] [address] Dr. Ashwin Key LYMPH # 2.1 103/ul Normal 1.2-3.8 [facility] Comment on above: Performed By: #### C BC #### [facility] [address] [place] [address] Dr. Ashwin Key Lymphocytes/100 WBC (Bld) 48.4 % Normal 20.5-60.0 [facility] Comment on above: Performed By: #### C BC #### [facility] [address] [place] [address] Dr. Ashwin Key MANUAL DIFF REQ NO Normal [facility] Comment on above: Performed By: #### C BC #### [facility] [address] [place] [address] Dr. Ashwin Key MCH (RBC) [Entitic mass] 28.8 pg Normal 26.7-34.0 [facility] Comment on above: Performed By: #### C BC #### [facility] [address] [place] [address] Dr. Ashwin Key MCHC (RBC) [Mass/Vol] 30.0 g/dL Normal 29.9-35.2 [facility] Comment on above: Performed By: #### C BC #### [facility] [address] [place] [address] Dr. Ashwin Key MCV (RBC) [Entitic vol] 96.0 fL Normal 81.0-99.0 [facility] Comment on above: Performed By: #### C BC #### [facility] [address] [place] [address] Dr. Ashwin Key MONO # 0.3 103/ul Normal 0.3-0.8 [facility] Comment on above: Performed By: #### C BC #### [facility] [address] [place] [address] Dr. Ashwin Key Monocytes/100 WBC (Bld) 7.7 % Normal 1.7-12.0 [facility] Comment on above: Performed By: #### C BC #### [facility] [address] [place] [address] Dr. Ashwin Key NEUT # 1.8 103/ul Normal 1.4-6.5 [facility] Comment on above: Performed By: #### C BC #### [facility] [address] [place] [address] Dr. Ashwin Key Neutrophils/100 WBC (Bld) 42.7 % Critically low 43.0-75.0 [facility] Comment on above: Performed By: #### C BC #### [facility] [address] [place] [address] Dr. Ashwin Key Platelet mean volume (Bld) [Entitic vol] 10.1 fL Normal 9.5-13.5 [facility] Comment on above: Performed By: #### C BC #### [facility] [address] [place] [address] Dr. Ashwin Key PLT 156 103/ul Normal 150-450 [facility] Comment on above: Performed By: #### C BC #### [facility] [address] [place] [address] Dr. Ashwin Key RBC 3.96 106/ul Critically low 4.20-5.40 [facility] Comment on above: Performed By: #### C BC #### [facility] [address] [place] [address] Dr. Ashwin Key WBC 4.3 103/ul Normal 4.0-11.0 [facility] Comment on above: Performed By: #### C BC #### [facility] [address] [place] [address] Dr. Ashwin Key PROF CHEM 8 (BAS METB)on Anion gap [Moles/Vol] 13.3 mmol/L Normal [facility] Comment on above: Performed By: #### U JOEY BUTTRO #### [facility] [address] [place] [address] Dr. Ashwin Key Calcium [Mass/Vol] 8.3 mg/dL Critically low 8.5-10.1 [facility] Comment on above: Performed By: #### U JOEY BUTTRO #### [facility] [address] [place] [address] Dr. Ashwin Key Chloride [Moles/Vol] 111 mmol/L Critically high 98-107 [facility] Comment on above: Performed By: #### U ACSIND, UMICRO #### [facility] [address] [address] [address] Ashwin Key CO2 [Moles/Vol] 29.9 mmol/L Normal 21.0-32.0 [facility] Comment on above: Performed By: #### U ACSIND, UMICRO #### [facility] [address] [address] [address] Ashwin Key Creatinine [Mass/Vol] 0.92 mg/dL Normal 0.55-1.02 [facility] Comment on above: Performed By: #### U ACSJAZMIN, UMICRO #### [facility] [address] [address] [address] Ashwin Key EGFR-AF MAURITIAN >60 Normal >=60 [facility] Comment on above: Performed By: #### U ACSJAZMIN, UMICRO #### [facility] [address] [address] [address] Ashwin Key EGFR-NON AF MAURITIAN 59 mL/min/1.73m2 Critically low >=60 [facility] Comment on above: Performed By: #### U ACSJAZMIN, UMICRO #### [facility] [address] [address] [address] Ashwin Key Glucose [Mass/Vol] 84 mg/dL Normal 74-106 [facility] Comment on above: Performed By: #### U ACSIND, UMICRO #### [facility] [address] [address] [address] Ashwin Key Potassium [Moles/Vol] 4.2 mmol/L Normal 3.5-5.1 [facility] Comment on above: Performed By: #### U ACSIND, UMICRO #### [facility] [address] [address] [address] Ashwin Key Sodium [Moles/Vol] 150 mmol/L Critically high 136-145 [facility] Comment on above: Performed By: #### U ACSIND, UMICRO #### [facility] [address] [address] [address] Ashwin Key Urea nitrogen [Mass/Vol] 25.0 mg/dL Critically high 7.0-18.0 [facility] Comment on above: Performed By: #### U ACSIND, UMICRO #### [facility] [address] [place] [address] Dr. Ashwin Key Urea nitrogen/Creatinine [Mass ratio] 27.2 mg/mg Normal [facility] Comment on above: Performed By: #### U ACSJAZMIN, UMICRO #### [facility] [address] [place] [address] Dr. Ashwin Key TSHon 08-10-2022 TSH 3.430 uIU/mL Normal 0.358-3.740 [facility] Comment on above: Performed By: #### U ACSJAZMIN UMICRO #### [facility] [address] [place] [address] Dr. Aswhin Key CULTURE URINEon 08-09-2022 CULTURE URINE Culture Observations : ANSON TO FOLLOW. Normal [facility] Comment on above: Performed By: #### U ACSJAZMIN UMICRO #### [facility] [address] [place] [address] Dr. Ashwin Key UA (CLEAN/CATCH) MEDICAL TECHNOLOGIST GENERALIST/MICRO I F IND.on 08-09-2022 Bilirubin Ql (U) Negative Normal NEGATIVE [facility] Comment on above: Performed By: #### U FILOMENA UMICRO #### [facility] [address] [place] [address] Dr. Ashwin Key Clarity (U) CLEAR Normal CLEAR [facility] Comment on above: Performed By: #### U ACSJAZMIN UMICRO #### [facility] [address] [place] [address] Dr. Ashwin Key Color (U) LT. YELLOW Normal YELLOW [facility] Comment on above: Performed By: #### U ACSJAZMIN, UMICRO #### [facility] [address] [place] [address] Dr. Ashwin Key Glucose Ql (U) Negative Normal NEGATIVE [facility] Comment on above: Performed By: #### U ACSIND, UMICRO #### [facility] [address] [address] [address] Ashwin Key Hemoglobin Ql (U) TRACE-INTACT Abnormal NEGATIVE [facility] Comment on above: Performed By: #### U ACSIND, UMICRO #### [facility] [address] [address] [address] Ashwin Key Ketones Ql (U) Negative Normal NEGATIVE [facility] Comment on above: Performed By: #### U ACSIND, UMICRO #### [facility] [address] [address] [address] Ashwin Key LEUKOCYTES TRACE Abnormal NEGATIVE [facility] Comment on above: Performed By: #### U ACSIND, UMICRO #### [facility] [address] [address] [address] Ashwin Key Nitrite Ql (U) Negative Normal NEGATIVE [facility] Comment on above: Performed By: #### U ACSIND, UMICRO #### [facility] [address] [address] [address] Ashwin Key pH (U) 5.5 [pH] Normal 5-9 [facility] Comment on above: Performed By: #### U ACSIND, UMICRO #### [facility] [address] [place] [address] Dr. Ashwin Key SPEC GRAVITY <=1.005 Abnormal 1.005-<=1.[address] [place] [address] Comment on above: Performed By: #### U ACSIND, UMICRO #### [facility] [address] [address] [address] Ashwin Key UA PROTEIN Negative Normal NEGATIVE/ TRACE [facility] Comment on above: Performed By: #### U ACSIND, UMICRO #### [facility] [address] [address] [address] Ashwin Key UR MICRO IND INDICATED Normal [facility] Comment on above: Performed By: #### U ACSIND, UMICRO #### [facility] [address] [address] [address] Ashwin Key Urobilinogen Qn (U) 0.2 {Mercedes'U}/dL Normal 0.2 - 1. 0 [facility] Comment on above: Performed By: #### U ACSJAZMIN, UMICRO #### [facility] [address] [address] [address] Ashwin Key URINE MICROSCOPIC ONLYon AMORPHOUS CRYSTALS FEW Normal [facility] Comment on above: Performed By: #### U ACSIND, UMICRO #### [facility] [address] [address] [address] Ashwin Key BACTERIA MODERATE Abnormal NONE SEEN [facility] Comment on above: Performed By: #### U ACSJAZMIN, UMICRO #### [facility] [address] [place] [address] Dr. Ashwin Key Bacteria identified Cx Nom (U) INDICATED Normal [facility] Comment on above: Performed By: #### U ACSJAZMIN, ICRO #### [facility] [address] [place] [address] Dr. Ashwin Key CAST NONE SEEN Normal NONE SEEN [facility] Comment on above: Performed By: #### U ACSJAZMIN, ICRO #### [facility] [address] [address] [address] Ashwin Key Crystals LM Nom (Urine sed) SEEN Abnormal NONE SEEN [facility] Comment on above: Performed By: #### U ACSJAZMIN, UMICRO #### [facility] [address] [address] [address] Ashwin Key Epithelial cells LM Ql (Urine sed) MANY Abnormal NONE SEEN /RARE [facility] Comment on above: Performed By: #### U ACSJAZMIN, UMICRO #### [facility] [address] [place] [address] Dr. Ashwin Key MUCOUS NONE SEEN Normal NONE SEEN [facility] Comment on above: Performed By: #### U ACSJAZMIN, UMICRO #### [facility] [address] [place] [address] Dr. Ashwin Key RBC 0-2 Normal 0-2 [facility] Comment on above: Performed By: #### U JOEY BUTTRO #### [facility] [address] [address] [address] Ashwin Key WBC 2-5 Abnormal NONE SEEN [facility] Comment on above: Performed By: #### U ACSJOEY WURO #### [facility] [address] [address] [address] Ashwin Key CBC AUTO DIFFon 07-11-2022 BASO # 0.0 103/ul Normal 0.0-0.1 [facility] Comment on above: Performed By: #### C BC #### [facility] [address] [place] [address] Dr. Ashwin Key Basophils/100 WBC (Bld) 0.5 % Normal 0.2-2.0 [facility] Comment on above: Performed By: #### C BC #### [facility] [address] [place] [address] Dr. Ashwin Key EO # 0.0 103/ul Normal 0.0-0.7 [facility] Comment on above: Performed By: #### C BC #### [facility] [address] [place] [address] Dr. Ashwin Key Eosinophils/100 WBC (Bld) 0.0 % Critically low 0.9-7.0 [facility] Comment on above: Performed By: #### C BC #### [facility] [address] [place] [address] Dr. Ashwin Key Erythrocyte distribution width (RBC) [Ratio] 14.5 % Normal 11.0-15.0 [facility] Comment on above: Performed By: #### C BC #### [facility] [address] [place] [address] Dr. Ashwin Key Hematocrit (Bld) [Volume fraction] 42.5 % Normal 36.0-48.0 [facility] Comment on above: Performed By: #### C BC #### [facility] [address] [place] [address] Dr. Ashwin Key Hemoglobin (Bld) [Mass/Vol] 13.1 g/dL Normal 12.0-16.0 [facility] Comment on above: Performed By: #### C BC #### [facility] [address] [place] [address] Dr. Ashwin Key IG # 0.02 10e3/ul Normal 0.00-0.03 [facility] Comment on above: Performed By: #### C BC #### [facility] [address] [place] [address] Dr. Ashwin Key IG % 0.5 % Normal 0.0-0.5 [facility] Comment on above: Performed By: #### C BC #### [facility] [address] [place] [address] Dr. Ashwin Key LYMPH # 2.1 103/ul Normal 1.2-3.8 [facility] Comment on above: Performed By: #### C BC #### [facility] [address] [place] [address] Dr. Ashwin Key Lymphocytes/100 WBC (Bld) 48.2 % Normal 20.5-60.0 [facility] Comment on above: Performed By: #### C BC #### [facility] [address] [place] [address] Dr. Ashwin Key MANUAL DIFF REQ NO Normal [facility] Comment on above: Performed By: #### C BC #### [facility] [address] [place] [address] Dr. Ashwin Key MCH (RBC) [Entitic mass] 28.4 pg Normal 26.7-34.0 [facility] Comment on above: Performed By: #### C BC #### [facility] [address] [place] [address] Dr. Ashwin Key MCHC (RBC) [Mass/Vol] 30.8 g/dL Normal 29.9-35.2 [facility] Comment on above: Performed By: #### C BC #### [facility] [address] [place] [address] Dr. Ashwin Key MCV (RBC) [Entitic vol] 92.2 fL Normal 81.0-99.0 [facility] Comment on above: Performed By: #### C BC #### [facility] [address] [address] [address] Ashwin Key MONO # 0.4 103/ul Normal 0.3-0.8 [facility] Comment on above: Performed By: #### C BC #### [facility] [address] [address] [address] Ashwin Key Monocytes/100 WBC (Bld) 8.7 % Normal 1.7-12.0 [facility] Comment on above: Performed By: #### C BC #### [facility] [address] [address] [address] Ashwin Key NEUT # 1.8 103/ul Normal 1.4-6.5 [facility] Comment on above: Performed By: #### C BC #### [facility] [address] [place] [address] Dr. Ashwin Key Neutrophils/100 WBC (Bld) 42.1 % Critically low 43.0-75.0 [facility] Comment on above: Performed By: #### C BC #### [facility] [address] [place] [address] Dr. Ashwin Key Platelet mean volume (Bld) [Entitic vol] 10.4 fL Normal 9.5-13.5 [facility] Comment on above: Performed By: #### C BC #### [facility] [address] [place] [address] Dr. Ashwin Key PLT 159 103/ul Normal 150-450 [facility] Comment on above: Performed By: #### C BC #### [facility] [address] [place] [address] Dr. Ashwin Key RBC 4.61 106/ul Normal 4.20-5.40 [facility] Comment on above: Performed By: #### C BC #### [facility] [address] [place] [address] Dr. Ashwin Key WBC 4.3 103/ul Normal 4.0-11.0 [facility] Comment on above: Performed By: #### C BC #### [facility] [address] [address] [address] Ashwin Key PROF CHEM 8 (BAS METB)on Anion gap [Moles/Vol] 10.2 mmol/L Normal [facility] Comment on above: Performed By: #### B MP #### [facility] [address] [place] [address] Dr. Ashwin Key Calcium [Mass/Vol] 8.5 mg/dL Normal 8.5-10.1 [facility] Comment on above: Performed By: #### B MP #### [facility] [address] [address] [address] Ashwin Key Chloride [Moles/Vol] 104 mmol/L Normal 98-107 [facility] Comment on above: Performed By: #### B MP #### [facility] [address] [place] [address] Dr. Ashwin Key CO2 [Moles/Vol] 32.6 mmol/L Critically high 21.0-32.0 [facility] Comment on above: Performed By: #### B MP #### [facility] [address] [place] [address] Dr. Ashwin Key Creatinine [Mass/Vol] 0.91 mg/dL Normal 0.55-1.02 [facility] Comment on above: Performed By: #### B MP #### [facility] [address] [place] [address] Dr. Ashwin Key EGFR-AF MAURITIAN >60 Normal >=60 [facility] Comment on above: Performed By: #### B MP #### [facility] [address] [place] [address] Dr. Ashwin Key EGFR-NON AF MAURITIAN =60 Normal >=60 [facility] Comment on above: Performed By: #### B MP #### [facility] [address] [place] [address] Dr. Ashwin Key Glucose [Mass/Vol] 89 mg/dL Normal 74-106 [facility] Comment on above: Performed By: #### B MP #### [facility] [address] [place] [address] Dr. Ashwin Key Potassium [Moles/Vol] 3.8 mmol/L Normal 3.5-5.1 [facility] Comment on above: Performed By: #### B MP #### [facility] [address] [place] [address] Dr. Ashwin Key Sodium [Moles/Vol] 143 mmol/L Normal 136-145 [facility] Comment on above: Performed By: #### B MP #### [facility] [address] [place] [address] Dr. Ashwin Key Urea nitrogen [Mass/Vol] 26.0 mg/dL Critically high 7.0-18.0 [facility] Comment on above: Performed By: #### B MP #### [facility] [address] [place] [address] Dr. Ashwin Key Urea nitrogen/Creatinine [Mass ratio] 28.6 mg/mg Normal [facility] Comment on above: Performed By: #### B MP #### [facility] [address] [place] [address] Dr. Ashwin Key CULTURE URINEon 02-11-2022 CULTURE [...] F Trimethoprim/Sulfameth oxazole <=20 S F Normal [facility] Comment on above: Performed By: #### U ACSIND, UMICRO #### [facility] [address] [place] [address] Dr. Ashwin Key CBC AUTO DIFFon 02-07-2022 BASO # 0.0 103/ul Normal 0.0-0.1 [facility] Comment on above: Performed By: #### C BC #### [facility] [address] [address] [address] Ashwin Key Basophils/100 WBC (Bld) 0.5 % Normal 0.2-2.0 [facility] Comment on above: Performed By: #### C BC #### [facility] [address] [place] [address] Dr. Ashwin Key EO # 0.0 103/ul Normal 0.0-0.7 [facility] Comment on above: Performed By: #### C BC #### [facility] [address] [place] [address] Dr. Ashwin Key Eosinophils/100 WBC (Bld) 0.0 % Critically low 0.9-7.0 [facility] Comment on above: Performed By: #### C BC #### [facility] [address] [place] [address] Dr. Ashwin Key Erythrocyte distribution width (RBC) [Ratio] 13.4 % Normal 11.0-15.0 [facility] Comment on above: Performed By: #### C BC #### [facility] [address] [place] [address] Dr. Ashwin Key Hematocrit (Bld) [Volume fraction] 46.8 % Normal 36.0-48.0 [facility] Comment on above: Performed By: #### C BC #### [facility] [address] [place] [address] Dr. Ashwin Key Hemoglobin (Bld) [Mass/Vol] 14.2 g/dL Normal 12.0-16.0 [facility] Comment on above: Performed By: #### C BC #### [facility] [address] [place] [address] Dr. Ashwin Key IG # 0.05 10e3/ul Critically high 0.00-0.03 [facility] Comment on above: Performed By: #### C BC #### [facility] [address] [place] [address] Dr. Ashwin Key IG % 0.6 % Critically high 0.0-0.5 [facility] Comment on above: Performed By: #### C BC #### [facility] [address] [place] [address] Dr. Ashwin Key LYMPH # 2.0 103/ul Normal 1.2-3.8 [facility] Comment on above: Performed By: #### C BC #### [facility] [address] [place] [address] Dr. Ashwin Key Lymphocytes/100 WBC (Bld) 22.9 % Normal 20.5-60.0 [facility] Comment on above: Performed By: #### C BC #### [facility] [address] [place] [address] Dr. Ashwin Key MANUAL DIFF REQ NO Normal [facility] Comment on above: Performed By: #### C BC #### [facility] [address] [place] [address] Dr. Ashwin Key MCH (RBC) [Entitic mass] 29.1 pg Normal 26.7-34.0 [facility] Comment on above: Performed By: #### C BC #### [facility] [address] [place] [address] Dr. Ashwin Key MCHC (RBC) [Mass/Vol] 30.3 g/dL Normal 29.9-35.2 [facility] Comment on above: Performed By: #### C BC #### [facility] [address] [place] [address] Dr. Ashwin Key MCV (RBC) [Entitic vol] 95.9 fL Normal 81.0-99.0 [facility] Comment on above: Performed By: #### C BC #### [facility] [address] [place] [address] Dr. Ashwin Key MONO # 0.9 103/ul Critically high 0.3-0.8 [facility] Comment on above: Performed By: #### C BC #### [facility] [address] [place] [address] Dr. Ashwin Key Monocytes/100 WBC (Bld) 10.9 % Normal 1.7-12.0 [facility] Comment on above: Performed By: #### C BC #### [facility] [address] [place] [address] Dr. Ashwin Key NEUT # 5.6 103/ul Normal 1.4-6.5 [facility] Comment on above: Performed By: #### C BC #### [facility] [address] [address] [address] Ashwin Key Neutrophils/100 WBC (Bld) 65.1 % Normal 43.0-75.0 [facility] Comment on above: Performed By: #### C BC #### [facility] [address] [place] [address] Dr. Ashwin Key Platelet mean volume (Bld) [Entitic vol] 10.6 fL Normal 9.5-13.5 [facility] Comment on above: Performed By: #### C BC #### [facility] [address] [place] [address] Dr. Ashwin Key PLT 203 103/ul Normal 150-450 [facility] Comment on above: Performed By: #### C BC #### [facility] [address] [place] [address] Dr. Ashwin Key RBC 4.88 106/ul Normal 4.20-5.40 [facility] Comment on above: Performed By: #### C BC #### [facility] [address] [place] [address] Dr. Ashwin Key WBC 8.6 103/ul Normal 4.0-11.0 [facility] Comment on above: Performed By: #### C BC #### [facility] [address] [place] [address] Dr. Ashwin Key PROF 14(COMP METB)on 022 Albumin [Mass/Vol] 3.6 g/dL Normal 3.4-5.0 [facility] Comment on above: Performed By: #### U JOEY BUTTRO #### [facility] [address] [place] [address] Dr. Ashwin Key Albumin/Globulin [Mass ratio] 1.2 {ratio} Normal [facility] Comment on above: Performed By: #### U JOEY BUTTRO #### [facility] [address] [address] [address] Ashwin Key ALP [Catalytic activity/Vol] 128 U/L Critically high 46-116 [facility] Comment on above: Performed By: #### U ACSIND, UMICRO #### [facility] [address] [address] [address] Ashwin Key ALT [Catalytic activity/Vol] 20 U/L Normal 14-59 [facility] Comment on above: Performed By: #### U ACSIND, UMICRO #### [facility] [address] [address] [address] Ashwin Key Anion gap [Moles/Vol] 12.0 mmol/L Normal [facility] Comment on above: Performed By: #### U ACSIND, UMICRO #### [facility] [address] [place] [address] Dr. Ashwin Key AST [Catalytic activity/Vol] 18 U/L Normal 15-37 [facility] Comment on above: Performed By: #### U ACSIND, UMICRO #### [facility] [address] [address] [address] Ashwin Key Bilirubin [Mass/Vol] 0.8 mg/dL Normal 0.2-1.0 [facility] Comment on above: Performed By: #### U ACSIND, UMICRO #### [facility] [address] [address] [address] Ashwin Key Calcium [Mass/Vol] 8.1 mg/dL Critically low 8.5-10.1 [facility] Comment on above: Performed By: #### U ACSIND, UMICRO #### [facility] [address] [address] [address] Ashwin Key Chloride [Moles/Vol] 99 mmol/L Normal 98-107 [facility] Comment on above: Performed By: #### U ACSIND, UMICRO #### [facility] [address] [address] [address] Ashwin Key CO2 [Moles/Vol] 33.7 mmol/L Critically high 21.0-32.0 [facility] Comment on above: Performed By: #### U ACSJAZMIN UMICRO #### [facility] [address] [place] [address] Dr. Ashwin Key Creatinine [Mass/Vol] 1.07 mg/dL Critically high 0.55-1.02 [facility] Comment on above: Performed By: #### U ACSJAZMIN UMICRO #### [facility] [address] [place] [address] Dr. Ashwin Key EGFR-AF MAURITIAN 60 mL/min/1.73m2 Normal >=60 [facility] Comment on above: Performed By: #### U ACSJAZMIN UMICRO #### [facility] [address] [place] [address] Dr. Ashwin Key EGFR-NON AF MAURITIAN 50 mL/min/1.73m2 Critically low >=60 [facility] Comment on above: Performed By: #### U ACSJAZMIN UMICRO #### [facility] [address] [place] [address] Dr. Ashwin Key Globulin (S) [Mass/Vol] 3.0 g/dL Normal [facility] Comment on above: Performed By: #### U GURVINDER BUTTICRO #### [facility] [address] [place] [address] Dr. Ashwin Key Glucose [Mass/Vol] 76 mg/dL Normal 74-106 [facility] Comment on above: Performed By: #### U FILOMENA UMICRO #### [facility] [address] [place] [address] Dr. Ashwin Key Potassium [Moles/Vol] 4.7 mmol/L Normal 3.5-5.1 [facility] Comment on above: Performed By: #### U ACSJAZMIN UMICRO #### [facility] [address] [place] [address] Dr. Ashwin Key Protein [Mass/Vol] 6.6 g/dL Normal 6.4-8.2 [facility] Comment on above: Performed By: #### U ACSJAZMIN UMICRO #### [facility] [address] [address] [address] Ashwin Key Sodium [Moles/Vol] 140 mmol/L Normal 136-145 [facility] Comment on above: Performed By: #### U ACSJAZMIN, JOEYRO #### [facility] [address] [place] [address] Dr. Ashwin Key Urea nitrogen [Mass/Vol] 31.0 mg/dL Critically high 7.0-18.0 [facility] Comment on above: Performed By: #### U ACSJAZMIN, JOEYRO #### [facility] [address] [address] [address] Ashwin Key Urea nitrogen/Creatinine [Mass ratio] 29.0 mg/mg Normal [facility] Comment on above: Performed By: #### U ACSJAZMIN, JOEYRO #### [facility] [address] [place] [address] Dr. Ashwin Key UA RANDOMon 02-07-2022 Bilirubin Ql (U) Negative Normal NEGATIVE [facility] Comment on above: Performed By: #### U A #### [facility] [address] [place] [address] Dr. Ashwin Key Clarity (U) CLEAR Normal CLEAR [facility] Comment on above: Performed By: #### U A #### [facility] [address] [place] [address] Dr. Ashwin Key Color (U) LT. YELLOW Normal YELLOW [facility] Comment on above: Performed By: #### U A #### [facility] [address] [place] [address] Dr. Ashwin Key Glucose Ql (U) Negative Normal NEGATIVE [facility] Comment on above: Performed By: #### U A #### [facility] [address] [place] [address] Dr. Ashwin Key Hemoglobin Ql (U) Negative Normal NEGATIVE [facility] Comment on above: Performed By: #### U A #### [facility] [address] [place] [address] Dr. Ashwin Key Ketones Ql (U) TRACE Abnormal NEGATIVE [facility] Comment on above: Performed By: #### U A #### [facility] [address] [address] [address] Ashwin Key LEUKOCYTES SMALL Abnormal NEGATIVE [facility] Comment on above: Performed By: #### U A #### [facility] [address] [place] [address] Dr. Ashwin Key Nitrite Ql (U) Positive Abnormal NEGATIVE [facility] Comment on above: Performed By: #### U A #### [facility] [address] [address] [address] Ashwin Key pH (U) 6.0 [pH] Normal 5-9 [facility] Comment on above: Performed By: #### U A #### [facility] [address] [place] [address] Dr. Ashwin Key SPEC GRAVITY 1.020 Normal 1.005-<=1.02 5 [facility] Comment on above: Performed By: #### U A #### [facility] [address] [place] [address] Dr. Ashwin Key UA PROTEIN Negative Normal NEGATIVE/ TRACE [facility] Comment on above: Performed By: #### U A #### [facility] [address] [place] [address] Dr. Ashwin Key Urobilinogen Qn (U) 1.0 {Mercedes'U}/dL Normal 0.2 - 1. 0 [facility] Comment on above: Performed By: #### U A #### [facility] [address] [place] [address] Dr. Ashwin Key K (Potassium)on 01-30-2017 Potassium molar conc 4.2 mmol/L Normal 3.7-5.3 [facility] Comment on above: Result Comment: Perf ormed at [address] [place] [address] [phone] Performed By: #### K ####[address] [place] [address] Encounters Encounter Date Encounter Type Care Provider Facility Start: 12-06-2023 Evaluation and management of inpatient HARSHA KIRBY [facility] Start: 12-05-2023 Evaluation and management of inpatient DON YUSUF [facility] Start: 12-04-2023 Emergency department patient visit DOE BARAJAS [facility] Start: 12-04-2023 End: 12-06-2023 Evaluation and management of inpatient DARLENE MOORE [facility] Start: [facility]23 [facility]: [facility]23 [facility] Start: 11-15-2023 Evaluation and management of inpatient SIDNEY [facility] Start: 11-15-2023 Evaluation and management of inpatient SIDNEY [facility] Start: 11-14-2023 Evaluation and management of inpatient [facility] Start: 11-14-2023 [facility] Start: 11-13-2023 Evaluation and management of inpatient OLIMPIA LANDRY [facility] Start: 11-13-2023 End: 11-22-2023 Evaluation and management of inpatient KASSANDRAMEMO PEREZ [facility] Start: 08-22-2022 End: 08-22-[address] PRANAV CAMPOS Facility:[facility] Start: 08-12-2022 End: 08-12-[address] DOCTOR MONTANO Facility:[facility] Start: 08-10-2022 End: 08-10-[address] PRANAV CAMPOS Facility:[facility] Start: 07-11-2022 End: 07-11-[address] PRANAV CAMPOS Facility:[facility] Start: 02-07-2022 End: 02-07-[address] PRANAV CAMPOS Facility:[facility] Start: 01-31-2017 End: 02-01-2017 [facility]ulatory [facility] Start: 01-30-2017 End: 01-31-2017 Ambulatory [facility] Procedures Date Procedure Procedure Detail Performing Clinician Start: 01-30-2017 BARRY BEE Payers Date Payer Category Payer Medicare [id number] 2017 Medicare [id number] 1960 Medicaid [id number] 1960 Medicare [id number] 1945 Unknown [id number] [id number] 1945 Unknown [id number] [id number] [id number] 1945 Unknown [id number] 2.16.84 [id number] 1944 Unknown [id number] 2.16.84 [id number] 1944 Unknown [id number] 2.16.84 [id number] Clinical Notes 11-14-2023 to 12-06-2023 Note Date & Type Note Facility 12-06-2023 Note [facility] 12-06-2023 Note [facility] 12-06-2023 Note [facility] 12-06-2023 Note [facility] 12-06-2023 Note [facility] 12-05-2023 Note [facility] 12-05-2023 Note [facility] 12-05-2023 Note [facility] 12-04-2023 Note [facility] 11-22-2023 Note [facility] 11-21-2023 Note [facility] 11-21-2023 Note Sent updates to [facility] and advised of possible discharge today. [facility] 11-21-2023 Note [facility] 11-20-2023 Note [facility] 11-20-2023 Note [facility] 11-20-2023 Note [facility] 11-20-2023 Note [facility] 11-20-2023 Note [facility] 11-19-2023 Note [facility] 11-19-2023 Note [facility] 11-19-2023 Note [facility] 11-18-2023 Note [facility] 11-18-2023 Note [facility] 11-17-2023 Note [facility] 11-17-2023 Note [facility] 11-17-2023 Note Sent updates to [facility]. Unclear at this point if pt will need pre-cert to return. UPDATE 10:40AM- Advised by Chama pt is a bed hold and no pre-cert is necessary. [facility] 11-17-2023 Note [facility] 11-17-2023 Note [facility] 11-16-2023 Note [facility] 11-15-2023 Note [facility] 11-15-2023 Note [facility] 11-15-2023 Note [facility] 11-15-2023 Note [facility] 11-15-2023 Note [facility] 11-14-2023 Note [facility] 11-14-2023 Note [facility] 11-14-2023 Note [facility] 11-14-2023 Note [facility] 11-14-2023 Note [facility] 11-14-2023 Note [facility] 11-14-2023 Note [facility] Summary Purpose Family History No Family History Records FoundNo Family History Records FoundNo Family History Records Found Advance Directives No Advanced Directives Records FoundNo Advanced Directives Records FoundNo Advanced Directives Records Found Additional Source Comments INFORMATION SOURCE (unrecogn ized section and content) DATE CREATED AUTHOR 11/08/2017 [facility] DATE CREATED AUTHOR AUTHOR'S ORGANIZ ATION 09/09/2022 [facility] DATE CREATED AUTHOR AUTHOR'S ORGANIZ ATION 12/19/2023 [facility] FOR RECORDS PERTAINING TO PATIENTS WHO [...] BE BASED ON THE PRIMARY CLINICAL RECORDS. [facility]. provides no warranty or guarantee of the accuracy or completeness of information in this document.
[2023-12-20 09:28] LABS: Basophils Percent Auto 0.6 % (0.2-2.0); Eosinophils Percent Auto 0.2 % (0.9-7.0); Hematocrit 32.7 % (36.0-48.0); Hemoglobin 9.6 g/dL (12.0-16.0); Immature Granulocytes Abs Auto 0.04 10^3/uL (0.00-0.03); Immature Granulocytes Pct Auto 0.6 % (0.0-0.5); Lymphocytes Absolute Auto 2.1 10^3/uL (1.2-3.8); Lymphocytes Percent Auto 32.5 % (20.5-60.0); Mean Corpuscular HGB Conc 29.4 g/dL (29.9-35.2); Mean Corpuscular Hemoglobin 30.6 pg (26.7-34.0); Mean Corpuscular Volume 104.1 fL (81.0-99.0); Mean Platelet Volume 10.8 fL (9.5-13.5); Monocytes Absolute Auto 0.5 10^3/uL (0.3-0.8); Monocytes Percent Auto 8.3 % (1.7-12.0); Neutrophils Absolute Auto 3.7 10^3/uL (1.4-6.5); Neutrophils Percent Auto 57.8 % (43.0-75.0); Platelet Count 223 10^3/uL (150-450); Red Blood Count 3.14 10^6/uL (4.20-5.40); Red Cell Distribution Width 20.6 % (11.0-15.0); White Blood Count 6.4 10^3/uL (4.0-11.0)
[2023-12-20 09:44] LABS: Anion Gap 5.2; BUN Creatinine Ratio 22.2; Calcium 7.4 mg/dL (8.5-10.1); Carbon Dioxide 35.7 mmol/L (21.0-32.0); Chloride 105 mmol/L (98-107); Estimated GFR (African America >60 (>=60); Estimated GFR (Non-African Ame >60 (>=60); Glucose 115 mg/dL (74-106); Potassium 3.9 mmol/L (3.5-5.1); Sodium 142 mmol/L (136-145)
[2023-12-20 09:48] LABS: C Reactive Protein 2.06 mg/dL (<=0.50)
== END 2023-12-20 01:51 | disposition home or self-care (01) ==
LOC: LAB 01:50
PROVIDERS: PCP Family Medicine; Visit Provider Family Medicine
DX: A41.9 Sepsis, unspecified organism (principal)
CPT/HCPCS: 36415; 80048; 82565; 85025; 86140

== ENCOUNTER 2023-12-27 09:16 | Outpatient (REF) | payer MEDICARE, MEDICAID, SELFPAY ==
[2023-12-27 09:35] LABS: Basophils Percent Auto 0.7 % (0.2-2.0); Eosinophils Percent Auto 0.2 % (0.9-7.0); Hematocrit 31.9 % (36.0-48.0); Hemoglobin 9.6 g/dL (12.0-16.0); Immature Granulocytes Abs Auto 0.03 10^3/uL (0.00-0.03); Immature Granulocytes Pct Auto 0.7 % (0.0-0.5); Lymphocytes Absolute Auto 1.4 10^3/uL (1.2-3.8); Lymphocytes Percent Auto 31.3 % (20.5-60.0); Mean Corpuscular HGB Conc 30.1 g/dL (29.9-35.2); Mean Corpuscular Hemoglobin 30.9 pg (26.7-34.0); Mean Corpuscular Volume 102.6 fL (81.0-99.0); Mean Platelet Volume 10.6 fL (9.5-13.5); Monocytes Absolute Auto 0.4 10^3/uL (0.3-0.8); Neutrophils Absolute Auto 2.5 10^3/uL (1.4-6.5); Neutrophils Percent Auto 58.1 % (43.0-75.0); Platelet Count 205 10^3/uL (150-450); Red Blood Count 3.11 10^6/uL (4.20-5.40); Red Cell Distribution Width 18.6 % (11.0-15.0); White Blood Count 4.3 10^3/uL (4.0-11.0)
--- OUTSIDE RECORDS SUMMARY | 2023-12-27 09:36 | XMS_ITS | CCD ---
Author Organization [facility] Care Team Providers Care On Site Coordinator Name Role Phone NEPTALI VILLALTA Unavailable Unavailabl [...] DAVIS Attending Unavailable DAVIS, ADIA Consulting Unavailable ADIA DAVIS Admitting Unavailable BETH, DR ROCK Attending Unavailable BETH, DR ROCK Consulting Unavailable MISC, DR HANSON Primary Care Unavailable BETH, DR ROCK Admitting Unavailable BETH, DR ROCK Consulting Unavailable BETH, DR ROCK Admitting Unavailable MISC, DR HANSON Primary Care Unavailable BETH, DR ROCK Attending Unavailable OLIMPIA LANDRY Referring Unavailable VELY, AELA Referring Unavailable VELY, AELA Referring Unavailable SMITH, KARLA Referring Unavailable CLARISSA SHAFFER Referring Unavailable SMITH, KARLA Referring Unavailable KASSANDRA PEREZ Referring Unavailable VELY, AELA Admitting Unavailable VELY, AELA Attending Unavailable DARLENE MOORE Referring Unavailable HORANI, YUE Admitting Unavailable KIRBY, HARSHA Attending Unavailable KARL DOE Referring Unavailable KARLDOE ASENCIO Referring Unavailable SMITHKARLA Attending Unavailable KIRBY, HARSHA Referring Unavailable COTLEN LAYTON Attending Unavailable DON YUSUF Referring Unavailable SMITH, CHRISTOPHER Referring Unavailable VELY, AELA Referring Unavailable HORANI, YUE Referring Unavailable Problems Active Problems Problem Classification [...] (1 source) hypokalemia / hypokalemia() Onset: 01-30-2017 Unclassified (2 sources) Post-op; Translations: [Post-op] Onset: 12-22-2023 Past or Other Problems Problem Classification Problem [...] Interpretation Reference Range Facility 36on 12-18-2023 36 Okay, thank you Normal [facility] 36 group home called and stated patient is very ill and would call back when she gets better. Niurka Flores [phone] [facility] 36on 12-11-2023 36 Opat received. Confirmed orders with parviz at [facility]. Confirmed appt 12/17 and labs to be drawn 12/12. Normal [facility] 30on 12-06-2023 30 Normal [facility] CBC WITH AUTO DIFFERENTIALon 12-06-2023 Erythrocyte distribution width (RBC) [Ratio] 22.8 % High 11.5-15.0 [facility] Comment on above: Performed By: #### L [id number] ####[facility] ([employer])[address] [place] [address] ERYTHROCYTE MEAN CORPUSCULAR HEMOGLOBIN CONCENTRATION (G/DL) BY AUTOMATED 29.8 g/dL Low 32.0-35.0 [facility] Comment on above: Performed By: #### L [id number] ####[facility] ([employer])[address] [place] [address] Hematocrit (Bld) [Volume fraction] 30.2 % Low 36.0-48.0 [facility] Comment on above: Performed By: #### L [id number] ####[facility] ([facility] [place] [address] Hemoglobin (Bld) [Mass/Vol] 9.0 g/dL Low 12.0-15.0 [facility] Comment on above: Performed By: #### L [id number] ####[facility] ([facility] [place] [address] MCH (RBC) [Entitic mass] 30.1 pg Normal 27.0-33.0 [facility] Comment on above: Performed By: #### L [id number] ####[facility] ([facility] [place] [address] MCV (RBC) [Entitic vol] 101.0 fL High 82.0-98.0 [facility] Comment on above: Performed By: #### L [id number] ####[facility] ([facility])[address] [place] [address] NRBC (PER 100 WBCS) BY AUTOMATED COUNT 0.0 % Normal 0 [facility] Comment on above: Performed By: #### L [id number] ####[facility] ([facility])[address] [place] [address] PLATELETS (10*3/UL) IN BLOOD AUTOMATED COUNT 285 10*3/uL Normal 150-400 [facility] Comment on above: Performed By: #### L [id number] ####[facility] ([facility]AK[facility])[address] [place] [address] RBC (Bld) [#/Vol] 2.99 10*6/uL Low 3.80-5.00 [facility] Comment on above: Performed By: #### L [id number] ####[facility] ([facility])[address] [place] [address] WBC (Bld) [#/Vol] 6.16 10*3/uL Normal 4.00-10.60 [facility] Comment on above: Performed By: #### L [id number] ####[facility] ([facility])[address] [place] [address] COMPREHENSIVE METABOLIC PANE Frank 12-06-2023 Albumin [Mass/Vol] 1.9 g/dL Low 3.5-5.7 [facility] Comment on above: Performed By: #### L [id number] ####[facility] ([facility])[address] [place] [address] ALP [Catalytic activity/Vol] 85 U/L Normal 34-104 [facility] Comment on above: Performed By: #### L [id number] ####[facility] ([facility])[address] [place] [address] ALT [Catalytic activity/Vol] 7 U/L Normal 7-52 [facility] Comment on above: Performed By: #### L [id number] ####[facility] ([facility])[address] [place] [address] Anion gap [Moles/Vol] 9 mmol/L Normal 7-20 [facility] Comment on above: Performed By: #### L [id number] ####[facility] ([employer])[address] [place] [address] AST [Catalytic activity/Vol] 16 U/L Normal 13-39 [facility] Comment on above: Performed By: #### L [id number] ####[facility] ([facility])[address] [place] [address] Bilirubin [Mass/Vol] 0.7 mg/dL Normal 0.3-1.0 [facility] Comment on above: Performed By: #### L [id number] ####[facility] ([facility])[address] [place] [address] Calcium [Mass/Vol] 6.9 mg/dL Low 8.6-10.3 [facility] Comment on above: Performed By: #### L [id number] ####[facility] ([facility])[address] [place] [address] Chloride [Moles/Vol] 104 mmol/L Normal 98-107 [facility] Comment on above: Performed By: #### L [id number] ####[facility] ([facility])[address] [place] [address] CO2 [Moles/Vol] 28 mmol/L Normal 21-31 [facility] Comment on above: Performed By: #### L [id number] ####[facility] ([facility])[address] [place] [address] Creatinine [Mass/Vol] 0.66 mg/dL Normal 0.60-1.20 [facility] Comment on above: Performed By: #### L [id number] ####[facility] ([facility])[address] [place] [address] GLOMERULAR FILTRATION RATE ML/MIN/1.73 SQ M.PREDICTED 89.2 mL/min/1.73m*2 Normal >60.0 [facility] Comment on above: Result Comment: [facility]???s estimated glomerular filtration rate (eGFR) will no [...] of individuals. Performed By: #### L [id number] ####[facility] ([facility])[address] [place] [address] Glucose [Mass/Vol] 118 mg/dL High 70-100 [facility] Comment on above: Performed By: #### L [id number] ####[facility] ([facility])[address] [place] [address] Potassium [Moles/Vol] 4.4 mmol/L Normal 3.5-5.1 [facility] Comment on above: Performed By: #### L [id number] ####[facility] (BEAKER)[address] [place] [address] Protein [Mass/Vol] 4.7 g/dL Low 6.0-8.3 [facility] Comment on above: Performed By: #### L [id number] ####[facility] ([facility])[address] [place] [address] Sodium [Moles/Vol] 137 mmol/L Normal 136-145 [facility] Comment on above: Performed By: #### L [id number] ####[facility] ([facility])[address] [place] [address] Urea nitrogen [Mass/Vol] 18 mg/dL Normal 7-25 [facility] Comment on above: Performed By: #### L [id number] ####[facility] ([facility])[address] [place] [address] UREA NITROGEN/CREATININE (MASS RATIO) IN SER/PLAS 27.3 Normal [facility] Comment on above: Performed By: #### L [id number] ####[facility] ([facility])[address] [place] [address] CONSULTon 12-06-2023 CONSULT Normal [facility] DSon 12-06-2023 DS Normal [facility] HEMOGLOBINon 12-06-2023 Hemoglobin (Bld) [Mass/Vol] 7.8 g/dL Low 12.0-15.0 [facility] Comment on above: Performed By: #### L [id number] ####[facility] ([facility])[address] [place] [address] MANUAL DIFFERENTIALon 2023 ANISOCYTOSIS PRESENCE IN BLOOD BY LIGHT MICROSCOPY Moderate Normal [facility] Comment on above: Performed By: #### L [id number] ####[facility] ([facility])[address] [place] [address] BASOPHILS (10*3/UL) IN BLOOD BY CALCULATION 0.02 10*3/uL Normal 0.00-0.20 [facility] Comment on above: Performed By: #### L [id number] ####[facility] ([facility])[address] [place] [address] BASOPHILS/100 LEUKOCYTES IN BLOOD BY AUTOMATED COUNT 0.3 % Normal 0.0-1.0 [facility] Comment on above: Performed By: #### L [id number] ####[facility] ([facility])[address] [place] [address] EOSINOPHILS (10*3/UL) IN BLOOD BY CALCULATION 0.00 10*3/uL Normal 0.00-0.50 [facility] Comment on above: Performed By: #### L [id number] ####[facility] ([facility])[address] [place] [address] EOSINOPHILS/100 LEUKOCYTES IN BLOOD BY AUTOMATED COUNT 0.0 % Normal 0.0-6.0 [facility] Comment on above: Performed By: #### L [id number] ####[facility] ([facility])[address] [place] [address] IMMATURE GRANULOCYTES (10*3/UL) IN BLOOD BY CALCULATION 0.19 10*3/uL Normal 0.00-0.20 [facility] Comment on above: Performed By: #### L [id number] ####[facility] ([facility])[address] [place] [address] IMMATURE GRANULOCYTES/100 LEUKOCYTES IN BLOOD BY AUTOMATED COUNT 3.1 % High 0.0-1.0 [facility] Comment on above: Performed By: #### L [id number] ####[facility] ([facility])[address] [place] [address] LYMPHOCYTES (10*3/UL) IN BLOOD BY CALCULATION 1.03 10*3/uL Low 1.20-4.00 [facility] Comment on above: Performed By: #### L [id number] ####[facility] ([facility])[address] [place] [address] LYMPHOCYTES/100 LEUKOCYTES IN BLOOD BY AUTOMATED COUNT 16.7 % Low 20.0-45.0 [facility] Comment on above: Performed By: #### L [id number] ####[facility] ([facility])[address] [place] [address] MONOCYTES (10*3/UL) IN BLOOD BY CALCUATION 0.47 10*3/uL Normal 0.10-1.00 [facility] Comment on above: Performed By: #### L [id number] ####[facility] ([facility])[address] [place] [address] MONOCYTES/100 LEUKOCYTES IN BLOOD BY AUTOMATED COUNT 7.6 % Normal 5.0-12.0 [facility] Comment on above: Performed By: #### L [id number] ####[facility] ([facility])[address] [place] [address] NEUTROPHILS (10*3/UL) IN BLOOD BY CALCULATION 4.5 10*3/uL Normal 1.6-7.6 [facility] Comment on above: Performed By: #### L [id number] ####[facility] ([facility])[address] [place] [address] NEUTROPHILS/100 LEUKOCYTES IN BLOOD BY AUTOMATED COUNT 72.3 % High 40.0-72.0 [facility] Comment on above: Performed By: #### L [id number] ####[facility] ([facility])[address] [place] [address] POIKILOCYTOSIS (PRESENCE) IN BLOOD BY LIGHT MICROSCOPY Slight Normal [facility] Comment on above: Performed By: #### L [id number] ####[facility] ([facility])[address] [place] [address] POLYCHROMASIA IN BLOOD BY LIGHT MICROSCOPY Slight Normal [facility] Comment on above: Performed By: #### L [id number] ####[facility] ([facility])[address] [place] [address] NURSNOTEon 12-06-2023 NURSNOTE Report given to Nikki [facility] [place] at [phone]. Report accepted and questions answered. Normal [facility] NURSNOTE Called to place a midline. Pt is getting Meropenum for 13 days. According to our chart that is a PICC line. Dr. Rodriguez ordered a midline and is comfortable with this choice. Normal [facility] 30on 12-05-2023 30 Normal [facility] ANESon 12-05-2023 ANES Normal [facility] BASIC METABOLIC PANELon 07- Anion gap [Moles/Vol] 7 mmol/L Normal 7-20 [facility] Comment on above: Performed By: #### L [id number] ####[facility] ([facility])[address] [place] [address] Calcium [Mass/Vol] 6.7 mg/dL Low 8.6-10.3 [facility] Comment on above: Performed By: #### L [id number] ####[facility] ([facility])[address] [place] [address] Chloride [Moles/Vol] 103 mmol/L Normal 98-107 [facility] Comment on above: Performed By: #### L [id number] ####[facility] ([facility])[address] [place] [address] CO2 [Moles/Vol] 32 mmol/L High 21-31 [facility] Comment on above: Performed By: #### L [id number] ####[facility] ([facility])[address] [place] [address] Creatinine [Mass/Vol] 0.73 mg/dL Normal 0.60-1.20 [facility] Comment on above: Performed By: #### L [id number] ####[facility] ([facility])[address] [place] [address] GLOMERULAR FILTRATION RATE ML/MIN/1.73 SQ M.PREDICTED 83.6 mL/min/1.73m*2 Normal >60.0 [facility] Comment on above: Result Comment: [facility]???s estimated glomerular filtration rate (eGFR) will no [...] of individuals. Performed By: #### L [id number] ####[facility] ([employer])[address] [place] [address] Glucose [Mass/Vol] 173 mg/dL High 70-100 [facility] Comment on above: Performed By: #### L [id number] ####[facility] ([facility])[address] [place] [address] Potassium [Moles/Vol] 4.2 mmol/L Normal 3.5-5.1 [facility] Comment on above: Performed By: #### L [id number] ####[facility] ([facility])[address] [place] [address] Sodium [Moles/Vol] 138 mmol/L Normal 136-145 [facility] Comment on above: Performed By: #### L [id number] ####[facility] ([employer])[address] [place] [address] Urea nitrogen [Mass/Vol] 19 mg/dL Normal 7-25 [facility] Comment on above: Performed By: #### L [id number] ####[facility] ([employer])[address] [place] [address] UREA NITROGEN/CREATININE (MASS RATIO) IN SER/PLAS 26.0 [facility] Comment on above: Performed By: #### L [id number] ####[facility] ([facility] [place] [address] BLOOD CULTUREon 12-05-2023 Bacteria identified Cx Nom (Bld) No growth at 5 days Normal [facility] Comment on above: Order Comment: From a different site than #1. Performed By: #### L [id number] ####[facility] ([facility])[address] [place] [address] CONSULTon 12-05-2023 CONSULT Normal [facility] CONSULT Normal [facility] HEMOGLOBIN AND HEMATOCRIT, B LOODon 12-05-2023 Hematocrit (Bld) [Volume fraction] 26.2 % Low 36.0-48.0 [facility] Comment on above: Performed By: #### L [id number] ####[facility] ([facility])[address] [place] [address] Hemoglobin (Bld) [Mass/Vol] 7.3 g/dL Low 12.0-15.0 [facility] Comment on above: Performed By: #### L [id number] ####[facility] ([facility])[address] [place] [address] MAGNESIUMon 12-05-2023 Magnesium [Mass/Vol] 1.6 mg/dL Low 1.9-2.7 [facility] Comment on above: Performed By: #### L [id number] ####[facility] ([facility])[address] [place] [address] MRSA/MSSA DNA NASALon 2023 MRSA DNA Negative Normal Negative [facility] Comment on above: Order Comment: Lamin Smith [...] preclude nasal colonization. Performed By: #### L [id number] ####[facility] ([facility])[address] [place] [address] MSSA DNA Negative Normal Negative [facility] Comment on above: Order Comment: Lamin Smith [...] preclude nasal colonization. Performed By: #### L [id number] ####[facility] ([facility])[address] [place] [address] NURSNOTEon 12-05-2023 NURSNOTE Normal [facility] OPNOTEon 12-05-2023 OPNOTE Normal [facility] POCT GLUCOSE METER UNSOLICIT ED RESULTSon 12-05-2023 Glucose [Mass/Vol] 76 mg/dL Normal 70-105 [facility] Comment on above: Order Comment: Waive d Testing in the ED is performed under the ED CLIA certificate #[id number]. Result Comment: [facility] [place] Performed By: #### L [id number] ####[facility] ([facility])[address] [place] [address] TROPONIN Ion 12-05-2023 Troponin I.cardiac [Mass/Vol] 0.01 ng/mL Normal 0.00-0.04 [facility] Comment on above: Performed By: #### L [id number] ####[facility] ([facility])[address] [place] [address] ANESon 12-04-2023 ANES Normal [facility] APTTon 12-04-2023 ACTIVATED PARTIAL THROMBOPLASTIN TIME IN PPP BY COAGULATION ASSAY 33.8 Seconds Normal 25.0-35.0 [facility] Comment on above: Result Comment: Clin ical significance of the APTT is questionable in the presence of heparin. Performed By: #### L [id number] ####[facility] ([facility])[address] [place] [address] BASIC METABOLIC PANELon 11-13 Anion gap [Moles/Vol] 9 mmol/L Normal 7-20 [facility] Comment on above: Performed By: #### L [id number] ####[facility] ([facility])[address] [place] [address] Calcium [Mass/Vol] 6.9 mg/dL Low 8.6-10.3 [facility] Comment on above: Performed By: #### L [id number] ####[facility] ([facility])[address] [place] [address] Chloride [Moles/Vol] 102 mmol/L Normal 98-107 [facility] Comment on above: Performed By: #### L [id number] ####[facility] ([facility])[address] [place] [address] CO2 [Moles/Vol] 32 mmol/L High 21-31 [facility] Comment on above: Performed By: #### L [id number] ####[facility] ([facility])[address] [place] [address] Creatinine [Mass/Vol] 0.66 mg/dL Normal 0.60-1.20 [facility] Comment on above: Performed By: #### L [id number] ####[facility] ([facility])[address] [place] [address] GLOMERULAR FILTRATION RATE ML/MIN/1.73 SQ M.PREDICTED 89.2 mL/min/1.73m*2 Normal >60.0 [facility] Comment on above: Result Comment: [facility]???s estimated glomerular filtration rate (eGFR) will no [...] of individuals. Performed By: #### L [id number] ####[facility] ([facility] [place] [address] Glucose [Mass/Vol] 95 mg/dL Normal 70-100 [facility] Comment on above: Performed By: #### L [id number] ####[facility] ([facility])[address] [place] [address] Potassium [Moles/Vol] 4.1 mmol/L Normal 3.5-5.[address] [facility] Comment on above: Performed By: #### L [id number] ####[facility] ([facility])[address] [place] [address] Sodium [Moles/Vol] 139 mmol/L Normal 136-145 [facility] Comment on above: Performed By: #### L [id number] ####[facility] ([facility])[address] [place] [address] Urea nitrogen [Mass/Vol] 21 mg/dL Normal 7-25 [facility] Comment on above: Performed By: #### L [id number] ####[facility] ([facility])[address] [place] [address] UREA NITROGEN/CREATININE (MASS RATIO) IN SER/PLAS 31.8 Normal [facility] Comment on above: Performed By: #### L [id number] ####[facility] ([facility] [place] [address] C-REACTIVE PROTEINon 024 C REACTIVE PROTEIN (MG/L) IN SER/PLAS 55.8 mg/L High 0.0-7.0 [facility] Comment on above: Performed By: #### L [id number] ####[facility] ([facility])[address] [place] [address] CBC WITH AUTO DIFFERENTIALon 12-04-2023 Erythrocyte distribution width (RBC) [Ratio] 23.4 % High 11.5-15.0 [facility] Comment on above: Performed By: #### L [id number] ####[facility] ([facility] [place] [address] ERYTHROCYTE MEAN CORPUSCULAR HEMOGLOBIN CONCENTRATION (G/DL) BY AUTOMATED 28.7 g/dL Low 32.0-35.0 [facility] Comment on above: Performed By: #### L [id number] ####[facility] (BEAKER)[address] [place] [address] Hematocrit (Bld) [Volume fraction] 31.0 % Low 36.0-48.0 [facility] Comment on above: Performed By: #### L [id number] ####[facility] (BEAKER)[address] [place] [address] Hemoglobin (Bld) [Mass/Vol] 8.9 g/dL Low 12.0-15.0 [facility] Comment on above: Performed By: #### L [id number] ####[facility] ([facility])[address] [place] [address] MCH (RBC) [Entitic mass] 29.3 pg Normal 27.0-33.0 [facility] Comment on above: Performed By: #### L [id number] ####[facility] ([facility])[address] [place] [address] MCV (RBC) [Entitic vol] 102.0 fL High 82.0-98.0 [facility] Comment on above: Performed By: #### L [id number] ####[facility] ([facility])[address] [place] [address] NRBC (PER 100 WBCS) BY AUTOMATED COUNT 0.0 % Normal 0 [facility] Comment on above: Performed By: #### L [id number] ####[facility] ([facility] [place] [address] PLATELETS (10*3/UL) IN BLOOD AUTOMATED COUNT 328 10*3/uL Normal 150-400 [facility] Comment on above: Performed By: #### L [id number] ####[facility] (BEAKER)[address] [place] [address] RBC (Bld) [#/Vol] 3.04 10*6/uL Low 3.80-5.00 [facility] Comment on above: Performed By: #### L [id number] ####[facility] (BEAKER)[address] [place] [address] WBC (Bld) [#/Vol] 5.47 10*3/uL Normal 4.00-10.60 [facility] Comment on above: Performed By: #### L [id number] ####[facility] ([facility] [place] [address] CONSULTon 12-04-2023 CONSULT Normal [facility] EDNURSon 12-04-2023 EDNURS Normal [facility] EDPROVon 12-04-2023 EDPROV Normal [facility] HPon 12-04-2023 HP Normal [facility] MANUAL DIFFERENTIALon 2023 ANISOCYTOSIS PRESENCE IN BLOOD BY LIGHT MICROSCOPY Moderate Normal [facility] Comment on above: Performed By: #### L [id number] ####[facility] (BEAKER)[address] [place] [address] BASOPHILS (10*3/UL) IN BLOOD BY CALCULATION 0.02 10*3/uL Normal 0.00-0.20 [facility] Comment on above: Performed By: #### L [id number] ####[facility] (BEAKER)[address] [place] [address] BASOPHILS/100 LEUKOCYTES IN BLOOD BY AUTOMATED COUNT 0.4 % Normal 0.0-1.0 [facility] Comment on above: Performed By: #### L [id number] ####[facility] (BEAKER)[address] [place] [address] EOSINOPHILS (10*3/UL) IN BLOOD BY CALCULATION 0.00 10*3/uL Normal 0.00-0.50 [facility] Comment on above: Performed By: #### L [id number] ####[facility] (BEAKER)[address] [facility] [place] [address] EOSINOPHILS/100 LEUKOCYTES IN BLOOD BY AUTOMATED COUNT 0.0 % Normal 0.0-6.0 [facility] Comment on above: Performed By: #### L [id number] ####[facility] (BEAKER)[address] [facility] [place] [address] HYPOCHROMIA (PRESENCE) IN BLOOD BY LIGHT MICROSCOPY Moderate Normal [facility] Comment on above: Performed By: #### L [id number] ####[facility] ([facility])[address] [place] [address] IMMATURE GRANULOCYTES (10*3/UL) IN BLOOD BY CALCULATION 0.08 10*3/uL Normal 0.00-0.20 [facility] Comment on above: Performed By: #### L [id number] ####[facility] ([facility])[address] [place] [address] IMMATURE GRANULOCYTES/100 LEUKOCYTES IN BLOOD BY AUTOMATED COUNT 1.5 % High 0.0-1.0 [facility] Comment on above: Performed By: #### L [id number] ####[facility] ([facility])[address] [place] [address] LYMPHOCYTES (10*3/UL) IN BLOOD BY CALCULATION 0.83 10*3/uL Low 1.20-4.00 [facility] Comment on above: Performed By: #### L [id number] ####[facility] ([facility])[address] [place] [address] LYMPHOCYTES/100 LEUKOCYTES IN BLOOD BY AUTOMATED COUNT 15.2 % Low 20.0-45.0 [facility] Comment on above: Performed By: #### L [id number] ####[facility] ([facility])[address] [place] [address] MONOCYTES (10*3/UL) IN BLOOD BY CALCUATION 0.45 10*3/uL Normal 0.10-1.00 [facility] Comment on above: Performed By: #### L [id number] ####[facility] ([facility])[address] [place] [address] MONOCYTES/100 LEUKOCYTES IN BLOOD BY AUTOMATED COUNT 8.2 % Normal 5.0-12.0 [facility] Comment on above: Performed By: #### L [id number] ####[facility] ([facility])[address] [place] [address] NEUTROPHILS (10*3/UL) IN BLOOD BY CALCULATION 4.1 10*3/uL Normal 1.6-7.6 [facility] Comment on above: Performed By: #### L [id number] ####[facility] ([facility])[address] [place] [address] NEUTROPHILS/100 LEUKOCYTES IN BLOOD BY AUTOMATED COUNT 74.7 % High 40.0-72.0 [facility] Comment on above: Performed By: #### L [id number] ####[facility] ([facility])[address] [place] [address] POIKILOCYTOSIS (PRESENCE) IN BLOOD BY LIGHT MICROSCOPY Slight Normal [facility] Comment on above: Performed By: #### L [id number] ####[facility] ([facility])[address] [place] [address] POLYCHROMASIA IN BLOOD BY LIGHT MICROSCOPY Slight Normal [facility] Comment on above: Performed By: #### L [id number] ####[facility] ([facility])[address] [place] [address] PROTIME-INRon 12-04-2023 INR IN PPP BY COAGULATION ASSAY 1.58 High 0.90-1.10 [facility] Comment on above: Result Comment: ACCC P [...] CHEST 1995;108:[id number]. Performed By: #### L [id number] ####[facility] ([facility])[address] [place] [address] PROTHROMBIN TIME (PT) IN PPP BY COAGULATION ASSAY 18.6 Seconds High 12.3-14.8 [facility] Comment on above: Performed By: #### L [id number] ####[facility] ([facility])[address] [place] [address] SEDIMENTATION RATEon 024 SEDIMENTATION RATE, ERYTHROCYTE 85 mm/hr High <=20 [facility] Comment on above: Performed By: #### L [id number] ####[facility] ([facility])[address] [place] [address] TYPE AND SCREENon 12-04-2023 AB SCREEN Negative Normal [facility] Comment on above: Order Comment: Add o n Performed By: #### L [id number] ####[facility], ABO group Nom (Bld) O Normal [facility] Comment on above: Order Comment: Add o n Performed By: #### L [id number] ####[facility], RH TYPE IN BLOOD Positive Normal [facility] Comment on above: Order Comment: Add o n Performed By: #### L [id number] ####[facility], 36on 12-01-2023 36 [facility] 36 ANYA HIDES INSPECTOR- [phone] PLEASE GIVE ANYA A CALL BACK REGARDING POST OP PROTOCAL , [place] TO MAKE POST OP APPOINTMENTS HERE AT [facility] 36on 11-23-2023 36 [facility] Telephoneon 11-23-2023 Telephone [facility] 30on 11-22-2023 30 [facility] BASIC METABOLIC PANELon 11-12 Anion gap [Moles/Vol] 8 mmol/L Normal 7-20 [facility] Comment on above: Performed By: #### L [id number] ####[facility] ([facility])[address] [place] [address] Calcium [Mass/Vol] 6.7 mg/dL Low 8.6-10.3 [facility] Comment on above: Performed By: #### L [id number] ####[facility] (BEAKER)[address] [place] [address] Chloride [Moles/Vol] 106 mmol/L Normal 98-107 [facility] Comment on above: Performed By: #### L [id number] ####[facility] ([facility])[address] [place] [address] CO2 [Moles/Vol] 29 mmol/L Normal 21-31 [facility] Comment on above: Performed By: #### L [id number] ####[facility] ([facility])[address] [place] [address] Creatinine [Mass/Vol] 0.84 mg/dL Normal 0.60-1.20 [facility] Comment on above: Performed By: #### L [id number] ####[facility] ([facility])[address] [place] [address] GLOMERULAR FILTRATION RATE ML/MIN/1.73 SQ M.PREDICTED 70.6 mL/min/1.73m*2 Normal >60.0 [facility] Comment on above: Result Comment: [facility]???s estimated glomerular filtration rate (eGFR) will no [...] of individuals. Performed By: #### L [id number] ####[facility] ([facility])[address] [place] [address] Glucose [Mass/Vol] 87 mg/dL Normal 70-100 [facility] Comment on above: Performed By: #### L [id number] ####[facility] ([facility]AKER)[address] [place] [address] Potassium [Moles/Vol] 4.2 mmol/L Normal 3.5-5.[address] [facility] Comment on above: Performed By: #### L [id number] ####[facility] (BEAKER)[address] [place] [address] Sodium [Moles/Vol] 139 mmol/L Normal 136-145 [facility] Comment on above: Performed By: #### L [id number] ####[facility] (BEAKER)[address] [place] [address] Urea nitrogen [Mass/Vol] 34 mg/dL High 7-25 [facility] Comment on above: Performed By: #### L [id number] ####[facility] (BEAKER)[address] [place] [address] UREA NITROGEN/CREATININE (MASS RATIO) IN SER/PLAS 40.5 Normal [facility] Comment on above: Performed By: #### L [id number] ####[facility] (BEAKER)[address] [place] [address] CBC WITH AUTO DIFFERENTIALon 11-22-2023 Erythrocyte distribution width (RBC) [Ratio] 22.2 % High 11.5-15.0 [facility] Comment on above: Performed By: #### L [id number] ####[facility] (BEAKER)[address] [place] [address] ERYTHROCYTE MEAN CORPUSCULAR HEMOGLOBIN CONCENTRATION (G/DL) BY AUTOMATED 31.5 g/dL Low 32.0-35.0 [facility] Comment on above: Performed By: #### L [id number] ####[facility] (BEAKER)[address] [place] [address] Hematocrit (Bld) [Volume fraction] 26.0 % Low 36.0-48.0 [facility] Comment on above: Performed By: #### L [id number] ####[facility] (BEAKER)[address] [place] [address] Hemoglobin (Bld) [Mass/Vol] 8.2 g/dL Low 12.0-15.0 [facility] Comment on above: Performed By: #### L [id number] ####[facility] (BEAKER)[address] [place] [address] MCH (RBC) [Entitic mass] 30.4 pg Normal 27.0-33.0 [facility] Comment on above: Performed By: #### L [id number] ####[facility] ([facility])[address] [place] [address] MCV (RBC) [Entitic vol] 96.3 fL Normal 82.0-98.0 [facility] Comment on above: Performed By: #### L [id number] ####[facility] ([facility])[address] [place] [address] NRBC (PER 100 WBCS) BY AUTOMATED COUNT 2.0 % High 0 [facility] Comment on above: Performed By: #### L [id number] ####[facility] ([facility])[address] [place] [address] PLATELETS (10*3/UL) IN BLOOD AUTOMATED COUNT 136 10*3/uL Low 150-400 [facility] Comment on above: Performed By: #### L [id number] ####[facility] ([facility])[address] [place] [address] RBC (Bld) [#/Vol] 2.70 10*6/uL Low 3.80-5.00 [facility] Comment on above: Performed By: #### L [id number] ####[facility] (BEAKER)[address] [place] [address] WBC (Bld) [#/Vol] 10.20 10*3/uL Normal 4.00-10.60 [facility] Comment on above: Performed By: #### L [id number] ####[facility] (BEAKER)[address] [place] [address] CONSULTon 11-22-2023 CONSULT Normal [facility] MAGNESIUMon 11-22-2023 Magnesium [Mass/Vol] 2.0 mg/dL Normal 1.9-2.7 [facility] Comment on above: Performed By: #### L [id number] ####[facility] ([facility])[address] [place] [address] MANUAL DIFFERENTIALon 2023 ANISOCYTOSIS PRESENCE IN BLOOD BY LIGHT MICROSCOPY Moderate Normal [facility] Comment on above: Performed By: #### L [id number] ####[facility] ([facility])[address] [place] [address] BASOPHILS (10*3/UL) IN BLOOD BY CALCULATION 0.00 10*3/uL Normal 0.00-0.20 [facility] Comment on above: Performed By: #### L [id number] ####[facility] ([facility])[address] [place] [address] BASOPHILS/100 LEUKOCYTES IN BLOOD BY AUTOMATED COUNT 0.0 % Normal 0.0-1.0 [facility] Comment on above: Performed By: #### L [id number] ####[facility] ([facility])[address] [place], [place] [address] EOSINOPHILS (10*3/UL) IN BLOOD BY CALCULATION 0.00 10*3/uL Normal 0.00-0.50 [facility] Comment on above: Performed By: #### L [id number] ####[facility] ([facility])[address] [place], [place] [address] EOSINOPHILS/100 LEUKOCYTES IN BLOOD BY AUTOMATED COUNT 0.0 % Normal 0.0-6.0 [facility] Comment on above: Performed By: #### L [id number] ####[facility] ([facility])[address] [place], [place] [address] LYMPHOCYTES (10*3/UL) IN BLOOD BY CALCULATION 1.55 10*3/uL Normal 1.20-4.00 [facility] Comment on above: Performed By: #### L [id number] ####[facility] ([facility])[address] [place] [address] LYMPHOCYTES/100 LEUKOCYTES IN BLOOD BY AUTOMATED COUNT 15.2 % Low 20.0-45.0 [facility] Comment on above: Performed By: #### L [id number] ####[facility] ([facility])[address] [place] [address] MACROCYTES (PRESENCE) IN BLOOD BY LIGHT MICROSCOPY Slight Normal [facility] Comment on above: Performed By: #### L [id number] ####[facility] ([facility])[address] [place] [address] METAMYELOCYTES (10*3/UL) IN BLOOD BY CALCULATION 0.70 10*3/uL High 0.00 [facility] Comment on above: Performed By: #### L [id number] ####[facility] ([facility])[address] [place] [address] METAMYELOCYTES/100 LEUKOCYTES IN BLOOD CELLAVISION 6.9 % High 0.0-0.0 [facility] Comment on above: Performed By: #### L [id number] ####[facility] ([facility])[address] [place] [address] MONOCYTES (10*3/UL) IN BLOOD BY CALCUATION 0.29 10*3/uL Normal 0.10-1.00 [facility] Comment on above: Performed By: #### L [id number] ####[facility] ([facility])[address] [place] [address] MONOCYTES/100 LEUKOCYTES IN BLOOD BY AUTOMATED COUNT 2.8 % Low 5.0-12.0 [facility] Comment on above: Performed By: #### L [id number] ####[facility] ([facility])[address] [place] [address] MYELOCYTES (10*3/UL) IN BLOOD BY CALCULATION 0.49 10*3/uL High 0.00 [facility] Comment on above: Performed By: #### L [id number] ####[facility] ([facility])[address] [place] [address] MYELOCYTES/100 LEUKOCYTES IN BLOOD CELLAVISION 4.8 % High 0.0-0.0 [facility] Comment on above: Performed By: #### L [id number] ####[facility] ([facility])[address] [place] [address] NEUTROPHILS (10*3/UL) IN BLOOD BY CALCULATION 7.1 10*3/uL Normal 1.6-7.6 [facility] Comment on above: Performed By: #### L [id number] ####[facility] ([facility])[address] [place] [address] NEUTROPHILS/100 LEUKOCYTES IN BLOOD BY AUTOMATED COUNT 69.6 % Normal 40.0-72.0 [facility] Comment on above: Performed By: #### L [id number] ####[facility] ([facility])[address] [place] [address] NUCLEATED RED BLOOD CELLS IN BLOOD BY LIGHT MICROSCOPY Present Normal [facility] Comment on above: Performed By: #### L [id number] ####[facility] ([facility])[address] [place] [address] PLASMA CELLS/100 LEUKOCYTES IN BLOOD 0 % Normal 0 [facility] Comment on above: Performed By: #### L [id number] ####[facility] ([facility])[address] [place] [address] PLATELETS GIANT PRESENCE IN BLOOD BY LIGHT MICROSCOPY Present Normal [facility] Comment on above: Performed By: #### L [id number] ####[facility] ([facility])[address] [place] [address] POIKILOCYTOSIS (PRESENCE) IN BLOOD BY LIGHT MICROSCOPY Slight Normal [facility] Comment on above: Performed By: #### L [id number] ####[facility] ([facility])[address] [place] [address] POLYCHROMASIA IN BLOOD BY LIGHT MICROSCOPY Slight Normal [facility] Comment on above: Performed By: #### L [id number] ####[facility] ([facility])[address] [place] [address] PROMYELOCYTES (10*3/UL) IN BLOOD BY CALCULATION 0.07 10*3/uL High 0.00 [facility] Comment on above: Performed By: #### L [id number] ####[facility] ([facility])[address] [facility] [place] [address] PROMYELOCYTES/100 LEUKOCYTES IN BLOOD CELLAVISION 0.7 % High 0.0-0.0 [facility] Comment on above: Performed By: #### L [id number] ####[facility] ([facility])[address] [place] [address] VARIANT LYMPHOCYTES (10*3/UL) IN BLOOD BY CALCULATION 0.00 10*3/uL Normal 0.00 [facility] Comment on above: Performed By: #### L [id number] ####[facility] ([facility])[address] [facility] [place] [address] VARIANT LYMPHOCYTES/100 LEUKOCYTES IN BLOOD CELLAVISION 0.0 % Normal 0.0-0.0 [facility] Comment on above: Performed By: #### L [id number] ####[facility] ([facility])[address] [place] [address] NURSNOTEon 11-22-2023 NURSNOTE Report given to ms crystal from [facility]. Two rings found inside patient's chart are placed back onto patient's fingers. Patient aware of the rings back on her finger. Normal [facility] PHOSPHORUSon 11-22-2023 Magnesium [Mass/Vol] 2.3 mg/dL Low 2.5-5.0 [facility] Comment on above: Performed By: #### L [id number] ####[facility] ([facility])[address] [place] [address] PROTIME-INRon 11-22-2023 INR IN PPP BY COAGULATION ASSAY 1.22 High 0.90-1.10 [facility] Comment on above: Result Comment: ACCC P [...] CHEST 1995;108:[id number]. Performed By: #### L [id number] ####[facility] ([facility])[address] [place] [address] PROTHROMBIN TIME (PT) IN PPP BY COAGULATION ASSAY 15.5 Seconds High 12.3-14.8 [facility] Comment on above: Performed By: #### L [id number] ####[facility] ([employer])[address] [place] [address] BASIC METABOLIC PANELon 07-0 Anion gap [Moles/Vol] 10 mmol/L Normal 7-20 [facility] Comment on above: Performed By: #### L [id number] ####[facility] (BEAKER)[address] [place] [address] Calcium [Mass/Vol] 7.4 mg/dL Low 8.6-10.3 [facility] Comment on above: Performed By: #### L [id number] ####[facility] (BEAKER)[address] [place] [address] Chloride [Moles/Vol] 104 mmol/L Normal 98-107 [facility] Comment on above: Performed By: #### L [id number] ####[facility] (BEAKER)[address] [place] [address] CO2 [Moles/Vol] 30 mmol/L Normal 21-31 [facility] Comment on above: Performed By: #### L [id number] ####[facility] ([facility])[address] [place] [address] Creatinine [Mass/Vol] 1.21 mg/dL High 0.60-1.20 [facility] Comment on above: Performed By: #### L [id number] ####[facility] ([facility])[address] [place] [address] GLOMERULAR FILTRATION RATE ML/MIN/1.73 SQ M.PREDICTED 45.6 mL/min/1.73m*2 Low >60.0 [facility] Comment on above: Result Comment: [facility]???s estimated glomerular filtration rate (eGFR) will no [...] of individuals. Performed By: #### L [id number] ####[facility] ([facility])[address] [place] [address] Glucose [Mass/Vol] 101 mg/dL High 70-100 [facility] Comment on above: Performed By: #### L [id number] ####[facility] ([facility])[address] [place] [address] Potassium [Moles/Vol] 4.1 mmol/L Normal 3.5-5.1 [facility] Comment on above: Performed By: #### L [id number] ####[facility] LAB ([facility])[address] [place] [address] Sodium [Moles/Vol] 140 mmol/L Normal 136-145 [facility] Comment on above: Performed By: #### L [id number] ####[facility] ([facility])[address] [place] [address] Urea nitrogen [Mass/Vol] 41 mg/dL High 7-25 [facility] Comment on above: Performed By: #### L [id number] ####[facility] ([facility])[address] [place] [address] UREA NITROGEN/CREATININE (MASS RATIO) IN SER/PLAS 33.9 Normal [facility] Comment on above: Performed By: #### L [id number] ####[facility] ([facility])[address] [place] [address] CBC WITH AUTO DIFFERENTIALon 11-21-2023 Erythrocyte distribution width (RBC) [Ratio] 19.1 % High 11.5-15.0 [facility] Comment on above: Performed By: #### L [id number] ####[facility] ([facility])[address] [place] [address] ERYTHROCYTE MEAN CORPUSCULAR HEMOGLOBIN CONCENTRATION (G/DL) BY AUTOMATED 32.3 g/dL Normal 32.0-35.0 [facility] Comment on above: Performed By: #### L [id number] ####[facility] ([facility])[address] [place] [address] Hematocrit (Bld) [Volume fraction] 25.7 % Low 36.0-48.0 [facility] Comment on above: Performed By: #### L [id number] ####[facility] [place] [address] Hemoglobin (Bld) [Mass/Vol] 8.3 g/dL Low 12.0-15.0 [facility] Comment on above: Performed By: #### L [id number] ####[facility] ([facility] [place] [address] MCH (RBC) [Entitic mass] 29.7 pg Normal 27.0-33.0 [facility] Comment on above: Performed By: #### L [id number] ####[facility] ([facility] [place] [address] MCV (RBC) [Entitic vol] 92.1 fL Normal 82.0-98.0 [facility] Comment on above: Performed By: #### L [id number] ####[facility] ([facility])[address] [place] [place] [address] NRBC (PER 100 WBCS) BY AUTOMATED COUNT 8.1 % High 0 [facility] Comment on above: Performed By: #### L [id number] ####[facility] ([facility] [place] [address] PLATELETS (10*3/UL) IN BLOOD AUTOMATED COUNT 134 10*3/uL Low 150-400 [facility] Comment on above: Performed By: #### L [id number] ####[facility] ([facility])[address] [place] [address] RBC (Bld) [#/Vol] 2.79 10*6/uL Low 3.80-5.00 [facility] Comment on above: Performed By: #### L [id number] ####[facility] ([facility] [place] [address] WBC (Bld) [#/Vol] 13.21 10*3/uL High 4.00-10.60 [facility] Comment on above: Performed By: #### L [id number] ####[facility] ([facility])[address] [place] [address] HEMOGLOBIN AND HEMATOCRIT, B LOODon 11-21-2023 Hematocrit (Bld) [Volume fraction] 25.9 % Low 36.0-48.0 [facility] Comment on above: Performed By: #### L [id number] ####[facility] ([facility])[address] [place], [place] [address] Hemoglobin (Bld) [Mass/Vol] 8.3 g/dL Low 12.0-15.0 [facility] Comment on above: Performed By: #### L [id number] ####[facility] ([facility])[address] [place] [address] MAGNESIUMon 11-21-2023 Magnesium [Mass/Vol] 2.1 mg/dL Normal 1.9-2.7 [facility] Comment on above: Performed By: #### L [id number] ####[facility] ([facility])[address] [place] [address] MANUAL DIFFERENTIALon 2023 BASOPHILS (10*3/UL) IN BLOOD BY CALCULATION 0.00 10*3/uL Normal 0.00-0.20 [facility] Comment on above: Performed By: #### L [id number] ####[facility] ([facility])[address] [place] [address] BASOPHILS/100 LEUKOCYTES IN BLOOD BY AUTOMATED COUNT 0.0 % Normal 0.0-1.0 [facility] Comment on above: Performed By: #### L [id number] ####[facility] ([facility])[address] [place] [address] EOSINOPHILS (10*3/UL) IN BLOOD BY CALCULATION 0.09 10*3/uL Normal 0.00-0.50 [facility] Comment on above: Performed By: #### L [id number] ####[facility] ([facility])[address] [place] [address] EOSINOPHILS/100 LEUKOCYTES IN BLOOD BY AUTOMATED COUNT 0.7 % Normal 0.0-6.0 [facility] Comment on above: Performed By: #### L [id number] ####[facility] ([facility])[address] [place] [address] LYMPHOCYTES (10*3/UL) IN BLOOD BY CALCULATION 1.27 10*3/uL Normal 1.20-4.00 [facility] Comment on above: Performed By: #### L [id number] ####[facility] ([facility])[address] [place] [address] LYMPHOCYTES/100 LEUKOCYTES IN BLOOD BY AUTOMATED COUNT 9.6 % Low 20.0-45.0 [facility] Comment on above: Performed By: #### L [id number] ####[facility] ([facility])[address] [place] [address] METAMYELOCYTES (10*3/UL) IN BLOOD BY CALCULATION 0.45 10*3/uL High 0.00 [facility] Comment on above: Performed By: #### L [id number] ####[facility] ([facility])[address] [place] [address] METAMYELOCYTES/100 LEUKOCYTES IN BLOOD CELLAVISION 3.4 % High 0.0-0.0 [facility] Comment on above: Performed By: #### L [id number] ####[facility] ([facility])[address] [place] [address] MONOCYTES (10*3/UL) IN BLOOD BY CALCUATION 0.63 10*3/uL Normal 0.10-1.00 [facility] Comment on above: Performed By: #### L [id number] ####[facility] ([facility])[address] [place] [address] MONOCYTES/100 LEUKOCYTES IN BLOOD BY AUTOMATED COUNT 4.8 % Low 5.0-12.0 [facility] Comment on above: Performed By: #### L [id number] ####[facility] ([facility])[address] [place] [address] MYELOCYTES (10*3/UL) IN BLOOD BY CALCULATION 0.81 10*3/uL High 0.00 [facility] Comment on above: Performed By: #### L [id number] ####[facility] ([facility])[address] [place] [address] MYELOCYTES/100 LEUKOCYTES IN BLOOD CELLAVISION 6.1 % High 0.0-0.0 [facility] Comment on above: Performed By: #### L [id number] ####[facility] ([facility])[address] [place] [address] NEUTROPHILS (10*3/UL) IN BLOOD BY CALCULATION 9.8 10*3/uL High 1.6-7.6 [facility] Comment on above: Performed By: #### L [id number] ####[facility] ([facility] [place] [address] NEUTROPHILS/100 LEUKOCYTES IN BLOOD BY AUTOMATED COUNT 74.0 % High 40.0-72.0 [facility] Comment on above: Performed By: #### L [id number] ####[facility] ([facility])[address] [place] [address] NUCLEATED RED BLOOD CELLS IN BLOOD BY LIGHT MICROSCOPY Present Normal [facility] Comment on above: Performed By: #### L [id number] ####[facility] ([facility])[address] [place] [address] PLASMA CELLS/100 LEUKOCYTES IN BLOOD 0 % Normal 0 [facility] Comment on above: Performed By: #### L [id number] ####[facility] ([facility])[address] [place] [address] PROMYELOCYTES (10*3/UL) IN BLOOD BY CALCULATION 0.18 10*3/uL High 0.00 [facility] Comment on above: Performed By: #### L [id number] ####[facility] ([facility])[address] [place] [address] PROMYELOCYTES/100 LEUKOCYTES IN BLOOD CELLAVISION 1.4 % High 0.0-0.0 [facility] Comment on above: Performed By: #### L [id number] ####[facility] ([facility])[address] [place] [address] VARIANT LYMPHOCYTES (10*3/UL) IN BLOOD BY CALCULATION 0.00 10*3/uL Normal 0.00 [facility] Comment on above: Performed By: #### L [id number] ####[facility] ([facility])[address] [place] [address] VARIANT LYMPHOCYTES/100 LEUKOCYTES IN BLOOD CELLAVISION 0.0 % Normal 0.0-0.0 [facility] Comment on above: Performed By: #### L [id number] ####[facility] ([facility])[address] [place] [address] NURSNOTEon 11-21-2023 NURSNOTE Normal [facility] PHOSPHORUSon 11-21-2023 Magnesium [Mass/Vol] 2.7 mg/dL Normal 2.5-5.0 [facility] Comment on above: Performed By: #### L [id number] ####[facility] ([employer])[address] [place] [address] PROTIME-INRon 11-21-2023 INR IN PPP BY COAGULATION ASSAY 1.18 High 0.90-1.10 [facility] Comment on above: Result Comment: ACCC P [...] CHEST 1995;[id number]. Performed By: #### L [id number] ####[facility] ([employer])[address] [place] [address] PROTHROMBIN TIME (PT) IN PPP BY COAGULATION ASSAY 15.0 Seconds High 12.3-14.8 [facility] Comment on above: Performed By: #### L [id number] ####[facility] ([employer])[address] [place] [address] 30on 11-20-2023 30 Normal [facility] BASIC METABOLIC PANELon Anion gap [Moles/Vol] 11 mmol/L Normal 7-[address] [facility] Comment on above: Performed By: #### L [id number] ####[facility] ([facility])[address] [place] [address] Calcium [Mass/Vol] 6.8 mg/dL Low 8.6-10.3 [facility] Comment on above: Performed By: #### L [id number] ####[facility] ([facility] [place] [address] Chloride [Moles/Vol] 102 mmol/L Normal 98-107 [facility] Comment on above: Performed By: #### L [id number] ####[facility] ([facility])[address] [place] [address] CO2 [Moles/Vol] 29 mmol/L Normal 21-31 [facility] Comment on above: Performed By: #### L [id number] ####[facility] ([facility])[address] [place] [address] Creatinine [Mass/Vol] 1.59 mg/dL High 0.60-1.20 [facility] Comment on above: Performed By: #### L [id number] ####[facility] ([facility])[address] [place] [address] GLOMERULAR FILTRATION RATE ML/MIN/1.73 SQ M.PREDICTED 32.8 mL/min/1.73m*2 Low >60.0 [facility] Comment on above: Result Comment: [facility]???s estimated glomerular filtration rate (eGFR) will no [...] of individuals. Performed By: #### L [id number] ####[facility] ([facility])[address] [place] [address] Glucose [Mass/Vol] 116 mg/dL High 70-100 [facility] Comment on above: Performed By: #### L [id number] ####[facility] ([facility])[address] [place] [address] Potassium [Moles/Vol] 4.4 mmol/L Normal 3.5-5.[address] [facility] Comment on above: Performed By: #### L [id number] ####[facility] ([facility])[address] [place] [address] Sodium [Moles/Vol] 138 mmol/L Normal 136-145 [facility] Comment on above: Performed By: #### L [id number] ####[facility] ([facility])[address] [place] [address] Urea nitrogen [Mass/Vol] 47 mg/dL High 7-25 [facility] Comment on above: Performed By: #### L [id number] ####[facility] ([facility])[address] [place] [address] UREA NITROGEN/CREATININE (MASS RATIO) IN SER/PLAS 29.6 Normal [facility] Comment on above: Performed By: #### L [id number] ####[facility] ([facility])[address] [place] [address] CALCIUM, IONIZEDon CALCIUM IONIZED (MMOL/L) IN BLOOD 0.97 mmol/L Low 1.15-1.33 [facility] Comment on above: Performed By: #### L [id number] ####[facility] [id number] [place] [address] [place] CBCon 11-20-2023 Erythrocyte distribution width (RBC) [Ratio] 18.4 % High 11.5-15.0 [facility] Comment on above: Performed By: #### L [id number] ####[facility] ([facility]ER)[address] [place] [address] ERYTHROCYTE MEAN CORPUSCULAR HEMOGLOBIN CONCENTRATION (G/DL) BY AUTOMATED 32.6 g/dL Normal 32.0-35.0 [facility] Comment on above: Performed By: #### L [id number] ####[facility] ([facility]ER)[address] [place] [address] Hematocrit (Bld) [Volume fraction] 24.2 % Low 36.0-48.0 [facility] Comment on above: Performed By: #### L [id number] ####[facility] ([facility])[address] [place] [address] Hemoglobin (Bld) [Mass/Vol] 7.9 g/dL Low 12.0-15.0 [facility] Comment on above: Performed By: #### L [id number] ####[facility] ([facility])[address] [place] [address] MCH (RBC) [Entitic mass] 29.9 pg Normal 27.0-33.0 [facility] Comment on above: Performed By: #### L [id number] ####[facility] ([facility])[address] [place], [place] [address] MCV (RBC) [Entitic vol] 91.7 fL Normal 82.0-98.0 [facility] Comment on above: Performed By: #### L [id number] ####[facility] ([facility])[address] [place] [address] PLATELETS (10*3/UL) IN BLOOD AUTOMATED COUNT 133 10*3/uL Low 150-400 [facility] Comment on above: Performed By: #### L [id number] ####[facility] ([facility])[address] [place] [address] RBC (Bld) [#/Vol] 2.64 10*6/uL Low 3.80-5.00 [facility] Comment on above: Performed By: #### L [id number] ####[facility] ([facility])[address] [place] [address] WBC (Bld) [#/Vol] 13.49 10*3/uL High 4.00-10.60 [facility] Comment on above: Performed By: #### L [id number] ####[facility] ([facility] [place] [address] CBC WITH AUTO DIFFERENTIALon 07-08-2024 Erythrocyte distribution width (RBC) [Ratio] 22.2 % High 11.5-15.0 [facility] Comment on above: Performed By: #### L [id number] ####[facility] ([facility])[address] [place] [address] ERYTHROCYTE MEAN CORPUSCULAR HEMOGLOBIN CONCENTRATION (G/DL) BY AUTOMATED 31.1 g/dL Low 32.0-35.0 [facility] Comment on above: Performed By: #### L [id number] ####[facility] ([facility])[address] [place], [place] [address] Hematocrit (Bld) [Volume fraction] 18.0 % Low 36.0-48.0 [facility] Comment on above: Performed By: #### L [id number] ####[facility] ([facility])[address] [place] [address] Hemoglobin (Bld) [Mass/Vol] 5.6 g/dL Invalid Interpretation Code 12.0-15.0 [facility] Comment on above: Performed By: #### L [id number] ####[facility] ([facility])[address] [place] [address] MCH (RBC) [Entitic mass] 29.3 pg Normal 27.0-33.0 [facility] Comment on above: Performed By: #### L [id number] ####[facility] (BEAKER)[address] [place], [place] [address] MCV (RBC) [Entitic vol] 94.2 fL Normal 82.0-98.0 [facility] Comment on above: Performed By: #### L [id number] ####[facility] ([facility])[address] [place] [address] NRBC (PER 100 WBCS) BY AUTOMATED COUNT 11.3 % High 0 [facility] Comment on above: Performed By: #### L [id number] ####[facility] ([facility]ER)[address] [place] [address] PLATELETS (10*3/UL) IN BLOOD AUTOMATED COUNT 139 10*3/uL Low 150-400 [facility] Comment on above: Performed By: #### L [id number] ####[facility] (BEAKER)[address] [place] [address] RBC (Bld) [#/Vol] 1.91 10*6/uL Low 3.80-5.00 [facility] Comment on above: Performed By: #### L [id number] ####[facility] ([facility]AKER)[address] [place] [address] WBC (Bld) [#/Vol] 13.93 10*3/uL High 4.00-10.60 [facility] Comment on above: Performed By: #### L [id number] ####[facility] ([facility]ER)[address] [place] [address] CKon 11-20-2023 CREATINE KINASE (U/L) IN SER/PLAS 239.0 U/L High 30.0-223.0 [facility] Comment on above: Performed By: #### L [id number] ####[facility] ([facility])[address] [place] [address] HEMOGLOBIN AND HEMATOCRIT, B LOODon 11-20-2023 Hematocrit (Bld) [Volume fraction] 22.7 % Low 36.0-48.0 [facility] Comment on above: Performed By: #### L [id number] ####[facility] ([facility]ER)[address] [place] [address] Hemoglobin (Bld) [Mass/Vol] 7.2 g/dL Low 12.0-15.0 [facility] Comment on above: Performed By: #### L [id number] ####[facility] ([facility]ER)[address] [place] [address] Hematocrit (Bld) [Volume fraction] 18.7 % Low 36.0-48.0 [facility] Comment on above: Performed By: #### L [id number] ####[facility] ([facility]ER)[address] [place] [address] Hemoglobin (Bld) [Mass/Vol] 5.8 g/dL Invalid Interpretation Code 12.0-15.0 [facility] Comment on above: Performed By: #### L [id number] ####[facility] ([facility])[address] [place] [address] MAGNESIUMon 11-20-2023 Magnesium [Mass/Vol] 2.1 mg/dL Normal 1.9-2.7 [facility] Comment on above: Performed By: #### L [id number] ####[facility] ([facility])[address] [place] [address] MANUAL DIFFERENTIALon 2023 ANISOCYTOSIS PRESENCE IN BLOOD BY LIGHT MICROSCOPY Moderate Normal [facility] Comment on above: Performed By: #### L [id number] ####[facility] ([facility])[address] [place] [address] BASOPHILS (10*3/UL) IN BLOOD BY CALCULATION 0.00 10*3/uL Normal 0.00-0.20 [facility] Comment on above: Performed By: #### L [id number] ####[facility] ([facility])[address] [place] [address] BASOPHILS/100 LEUKOCYTES IN BLOOD BY AUTOMATED COUNT 0.0 % Normal 0.0-1.0 [facility] Comment on above: Performed By: #### L [id number] ####[facility] ([facility])[address] [place] [address] EOSINOPHILS (10*3/UL) IN BLOOD BY CALCULATION 0.00 10*3/uL Normal 0.00-0.50 [facility] Comment on above: Performed By: #### L [id number] ####[facility] ([facility])[address] [place] [address] EOSINOPHILS/100 LEUKOCYTES IN BLOOD BY AUTOMATED COUNT 0.0 % Normal 0.0-6.0 [facility] Comment on above: Performed By: #### L [id number] ####[facility] ([facility] [place] [address] HYPOCHROMIA (PRESENCE) IN BLOOD BY LIGHT MICROSCOPY Slight Normal [facility] Comment on above: Performed By: #### L [id number] ####[facility] ([facility])[address] [place] [address] LYMPHOCYTES (10*3/UL) IN BLOOD BY CALCULATION 1.94 10*3/uL Normal 1.20-4.00 [facility] Comment on above: Performed By: #### L [id number] ####[facility] ([facility])[address] [place] [address] LYMPHOCYTES/100 LEUKOCYTES IN BLOOD BY AUTOMATED COUNT 13.9 % Low 20.0-45.0 [facility] Comment on above: Performed By: #### L [id number] ####[facility] ([facility])[address] [place] [address] METAMYELOCYTES (10*3/UL) IN BLOOD BY CALCULATION 0.39 10*3/uL High 0.00 [facility] Comment on above: Performed By: #### L [id number] ####[facility] ([facility])[address] [place] [address] METAMYELOCYTES/100 LEUKOCYTES IN BLOOD CELLAVISION 2.8 % High 0.0-0.0 [facility] Comment on above: Performed By: #### L [id number] ####[facility] ([facility])[address] [place] [address] MONOCYTES (10*3/UL) IN BLOOD BY CALCUATION 0.38 10*3/uL Normal 0.10-1.00 [facility] Comment on above: Performed By: #### L [id number] ####[facility] ([facility])[address] [place] [address] MONOCYTES/100 LEUKOCYTES IN BLOOD BY AUTOMATED COUNT 2.7 % Low 5.0-12.0 [facility] Comment on above: Performed By: #### L [id number] ####[facility] ([facility])[address] [place] [address] MYELOCYTES (10*3/UL) IN BLOOD BY CALCULATION 0.20 10*3/uL High 0.00 [facility] Comment on above: Performed By: #### L [id number] ####[facility] ([facility])[address] [place] [address] MYELOCYTES/100 LEUKOCYTES IN BLOOD CELLAVISION 1.4 % High 0.0-0.0 [facility] Comment on above: Performed By: #### L [id number] ####[facility] ([facility])[address] [place] [address] NEUTROPHILS (10*3/UL) IN BLOOD BY CALCULATION 10.8 10*3/uL High 1.6-7.6 [facility] Comment on above: Performed By: #### L [id number] ####[facility] ([facility])[address] [place] [address] NEUTROPHILS/100 LEUKOCYTES IN BLOOD BY AUTOMATED COUNT 77.8 % High 40.0-72.0 [facility] Comment on above: Performed By: #### L [id number] ####[facility] ([facility])[address] [place] [address] NUCLEATED RED BLOOD CELLS IN BLOOD BY LIGHT MICROSCOPY Present Normal [facility] Comment on above: Performed By: #### L [id number] ####[facility] ([facility])[address] [place] [address] PLASMA CELLS/100 LEUKOCYTES IN BLOOD 0 % Normal 0 [facility] Comment on above: Performed By: #### L [id number] ####[facility] ([facility])[address] [place] [address] PLATELETS GIANT PRESENCE IN BLOOD BY LIGHT MICROSCOPY Present Normal [facility] Comment on above: Performed By: #### L [id number] ####[facility] ([facility])[address] [place] [address] POIKILOCYTOSIS (PRESENCE) IN BLOOD BY LIGHT MICROSCOPY Slight Normal [facility] Comment on above: Performed By: #### L [id number] ####[facility] ([facility])[address] [place] [address] POLYCHROMASIA IN BLOOD BY LIGHT MICROSCOPY Slight Normal [facility] Comment on above: Performed By: #### L [id number] ####[facility] ([facility])[address] [place] [address] PROMYELOCYTES (10*3/UL) IN BLOOD BY CALCULATION 0.20 10*3/uL High 0.00 [facility] Comment on above: Performed By: #### L [id number] ####[facility] ([facility])[address] [place] [address] PROMYELOCYTES/100 LEUKOCYTES IN BLOOD CELLAVISION 1.4 % High 0.0-0.0 [facility] Comment on above: Performed By: #### L [id number] ####[facility] ([facility])[address] [place] [address] VARIANT LYMPHOCYTES (10*3/UL) IN BLOOD BY CALCULATION 0.00 10*3/uL Normal 0.00 [facility] Comment on above: Performed By: #### L [id number] ####[facility] ([facility])[address] [place] [address] VARIANT LYMPHOCYTES/100 LEUKOCYTES IN BLOOD CELLAVISION 0.0 % Normal 0.0-0.0 [facility] Comment on above: Performed By: #### L [id number] ####[facility] ([facility])[address] [place] [address] NURSNOTEon 11-20-2023 NURSNOTE Normal [facility] NURSNOTE Patient has critical HGB of 5.8. DPOA was contacted at [phone] and did not waste picker to get consent for blood transfusion. Will transfuse emergently. [facility] PATHOLOGY REVIEWon PATHOLOGY REVIEW Electronically christina d by Viktoriya Dominguez MD on 11/20/23 at 12:12 PM. [facility] Comment on above: Performed By: #### L [id number] ####[facility] ([facility])[address] [place] [address] PHOSPHORUSon 11-20-2023 Magnesium [Mass/Vol] 3.2 mg/dL Normal 2.5-5.0 [facility] Comment on above: Performed By: #### L [id number] ####[facility] ([employer])[address] [place] [address] PROTIME-INRon 11-20-2023 INR IN PPP BY COAGULATION ASSAY 3.65 High 0.90-1.10 [facility] Comment on above: Result Comment: [facility] P RECOMMENDED INR FOR WARFARIN THERAPY CONDITION INRPROPHYLAXIS OF VENOUS THROMBOSIS 2-3(HIGH-RISK SURGERY)TREATMENT OF VENOUS THROMBOSIS 2-3TREATMENT OF PULMONARY EMBOLISM 2-3PREVENTION OF SYSTEMIC EMBOLISM: 2-3 ACUTE MYOCARDIAL INFARCTION TISSUE HEART VALVES VALVULAR HEART DISEASE ATRIAL FIBRILLATION RECURRENT SYSTEMIC EMBOLISMMECHANICAL HEART VALVE 2.5-3.5 FROM: ORAL ANTICOAGULANTS. MECHANISM OF ACTION, CLINICAL EFFECTIVENESS, AND OPTIMAL THERAPEUTIC RANGE. CHEST 1995;108:231S-246S. Performed By: #### L [id number] ####[facility] ([employer])[address] [place] [address] PROTHROMBIN TIME (PT) IN PPP BY COAGULATION ASSAY 36.6 Seconds High 12.3-14.8 [facility] Comment on above: Performed By: #### L [id number] ####[facility] ([employer])[address] [place] [address] INR IN PPP BY COAGULATION ASSAY 4.24 High 0.90-1.10 [facility] Comment on above: Result Comment: [facility] P RECOMMENDED INR FOR WARFARIN THERAPY CONDITION INRPROPHYLAXIS OF VENOUS THROMBOSIS 2-3(HIGH-RISK SURGERY)TREATMENT OF VENOUS THROMBOSIS 2-3TREATMENT OF PULMONARY EMBOLISM 2-3PREVENTION OF SYSTEMIC EMBOLISM: 2-3 ACUTE MYOCARDIAL INFARCTION TISSUE HEART VALVES VALVULAR HEART DISEASE ATRIAL FIBRILLATION RECURRENT SYSTEMIC EMBOLISMMECHANICAL HEART VALVE 2.5-3.5 FROM: ORAL ANTICOAGULANTS. MECHANISM OF ACTION, CLINICAL EFFECTIVENESS, AND OPTIMAL THERAPEUTIC RANGE. CHEST 1995;108:231S-246S. Performed By: #### L [id number] ####[facility] [employer])[address] [place] [address] PROTHROMBIN TIME (PT) IN PPP BY COAGULATION ASSAY 41.1 Seconds High 12.3-14.8 [facility] Comment on above: Performed By: #### L [id number] ####[facility] ([employer])[address] [place] [address] 30on 11-18-2023 30 Normal [facility] BASIC METABOLIC PANELon 07-0 Anion gap [Moles/Vol] 14 mmol/L Normal 7-20 [facility] Comment on above: Performed By: #### L [id number] ####[facility] ([employer])[address] [place] [address] Calcium [Mass/Vol] 6.9 mg/dL Low 8.6-10.3 [facility] Comment on above: Performed By: #### L [id number] ####[facility] ([employer])[address] [place] [address] Chloride [Moles/Vol] 99 mmol/L Normal 98-107 [facility] Comment on above: Performed By: #### L [id number] ####[facility] ([facility] [place] [address] CO2 [Moles/Vol] 28 mmol/L Normal 21-31 [facility] Comment on above: Performed By: #### L [id number] ####[facility] ([facility])[address] [place] [address] Creatinine [Mass/Vol] 2.03 mg/dL High 0.60-1.20 [facility] Comment on above: Performed By: #### L [id number] ####[facility] ([facility])[address] [place] [address] GLOMERULAR FILTRATION RATE ML/MIN/1.73 SQ M.PREDICTED 24.5 mL/min/1.73m*2 Low >60.0 [facility] Comment on above: Result Comment: [facility]???s estimated glomerular filtration rate (eGFR) will no [...] of individuals. Performed By: #### L [id number] ####[facility] ([facility])[address] [place] [address] Glucose [Mass/Vol] 107 mg/dL High 70-100 [facility] Comment on above: Performed By: #### L [id number] ####[facility] ([facility] [place] [address] Potassium [Moles/Vol] 3.0 mmol/L Low 3.5-5.1 [facility] Comment on above: Performed By: #### L [id number] ####[facility] ([facility] [place] [address] Sodium [Moles/Vol] 138 mmol/L Normal 136-145 [facility] Comment on above: Performed By: #### L [id number] ####[facility] ([facility])[address] [place] [address] Urea nitrogen [Mass/Vol] 49 mg/dL High 7-25 [facility] Comment on above: Performed By: #### L [id number] ####[facility] ([facility])[address] [place] [address] UREA NITROGEN/CREATININE (MASS RATIO) IN SER/PLAS 24.1 Normal [facility] Comment on above: Performed By: #### L [id number] ####[facility] ([facility])[address] [place] [address] CALCIUM, IONIZEDon CALCIUM IONIZED (MMOL/L) IN BLOOD 0.91 mmol/L Low 1.15-1.33 [facility] Comment on above: Performed By: #### L [id number] ####[facility] [id number] [place] [address] [place] CBC WITH AUTO DIFFERENTIALon 11-19-2023 Erythrocyte distribution width (RBC) [Ratio] 22.3 % High 11.5-15.0 [facility] Comment on above: Performed By: #### L [id number] ####[facility] ([facility])[address] [place] [address] ERYTHROCYTE MEAN CORPUSCULAR HEMOGLOBIN CONCENTRATION (G/DL) BY AUTOMATED 31.6 g/dL Low 32.0-35.0 [facility] Comment on above: Performed By: #### L [id number] ####[facility] ([facility])[address] [place] [address] Hematocrit (Bld) [Volume fraction] 19.6 % Low 36.0-48.0 [facility] Comment on above: Performed By: #### L [id number] ####[facility] ([facility])[address] [place] [address] Hemoglobin (Bld) [Mass/Vol] 6.2 g/dL Low 12.0-15.0 [facility] Comment on above: Performed By: #### L [id number] ####[facility] ([facility] [place] [address] MCH (RBC) [Entitic mass] 29.2 pg Normal 27.0-33.0 [facility] Comment on above: Performed By: #### L [id number] ####[facility] ([facility])[address] [place] [address] MCV (RBC) [Entitic vol] 92.5 fL Normal 82.0-98.0 [facility] Comment on above: Performed By: #### L [id number] ####[facility] ([facility])[address] [place] [address] NRBC (PER 100 WBCS) BY AUTOMATED COUNT 9.5 % High 0 [facility] Comment on above: Performed By: #### L [id number] ####[facility] ([facility])[address] [place] [address] PLATELETS (10*3/UL) IN BLOOD AUTOMATED COUNT 123 10*3/uL Low 150-400 [facility] Comment on above: Performed By: #### L [id number] ####[facility] ([facility])[address] [place], [place] [address] RBC (Bld) [#/Vol] 2.12 10*6/uL Low 3.80-5.00 [facility] Comment on above: Performed By: #### L [id number] ####[facility] ([facility])[address] [place], [place] [address] WBC (Bld) [#/Vol] 18.42 10*3/uL High 4.00-10.60 [facility] Comment on above: Performed By: #### L [id number] ####[facility] ([facility])[address] [place], [place] [address] HEPATIC FUNCTION PANELon Albumin [Mass/Vol] 2.1 g/dL Low 3.5-5.7 [facility] Comment on above: Performed By: #### L [id number] ####[facility] ([facility] [place] [address] ALP [Catalytic activity/Vol] 97 U/L Normal 34-104 [facility] Comment on above: Performed By: #### L [id number] ####[facility] ([facility] [place] [address] ALT [Catalytic activity/Vol] 29 U/L Normal 7-52 [facility] Comment on above: Performed By: #### L [id number] ####[facility] ([facility])[address] [place] [address] AST [Catalytic activity/Vol] 89 U/L High 13-39 [facility] Comment on above: Performed By: #### L [id number] ####[facility] ([facility])[address] [place] [address] Bilirubin [Mass/Vol] 0.9 mg/dL Normal 0.3-1.0 [facility] Comment on above: Performed By: #### L [id number] ####[facility] ([facility])[address] [place] [address] Magnesium [Mass/Vol] 0.4 mg/dL High 0-0.2 [facility] Comment on above: Performed By: #### L [id number] ####[facility] ([facility])[address] [place] [address] Protein [Mass/Vol] 4.0 g/dL Low 6.0-8.3 [facility] Comment on above: Performed By: #### L [id number] ####[facility] ([facility])[address] [place] [address] LACTIC ACID WITH 4 HOUR REFL EXon 11-19-2023 LACTATE (MMOL/L) IN SER/PLAS 0.9 mmol/L Normal 0.5-2.2 [facility] Comment on above: Performed By: #### L [id number] ####[facility] ([facility])[address] [place] [address] MAGNESIUMon 11-19-2023 Magnesium [Mass/Vol] 1.9 mg/dL Normal 1.9-2.7 [facility] Comment on above: Performed By: #### L [id number] ####[facility] ([facility])[address] [place] [address] MANUAL DIFFERENTIALon 2023 ANISOCYTOSIS PRESENCE IN BLOOD BY LIGHT MICROSCOPY Moderate Normal [facility] Comment on above: Performed By: #### L [id number] ####[facility] ([facility])[address] [place] [address] BASOPHILS (10*3/UL) IN BLOOD BY CALCULATION 0.00 10*3/uL Normal 0.00-0.20 [facility] Comment on above: Performed By: #### L [id number] ####[facility] ([facility])[address] [place] [address] BASOPHILS/100 LEUKOCYTES IN BLOOD BY AUTOMATED COUNT 0.0 % Normal 0.0-1.0 [facility] Comment on above: Performed By: #### L [id number] ####[facility] ([facility])[address] [place] [address] EOSINOPHILS (10*3/UL) IN BLOOD BY CALCULATION 0.00 10*3/uL Normal 0.00-0.50 [facility] Comment on above: Performed By: #### L [id number] ####[facility] ([facility])[address] [place] [address] EOSINOPHILS/100 LEUKOCYTES IN BLOOD BY AUTOMATED COUNT 0.0 % Normal 0.0-6.0 [facility] Comment on above: Performed By: #### L [id number] ####[facility] ([facility])[address] [place] [address] HYPOCHROMIA (PRESENCE) IN BLOOD BY LIGHT MICROSCOPY Moderate Normal [facility] Comment on above: Performed By: #### L [id number] ####[facility] ([facility])[address] [place] [address] LYMPHOCYTES (10*3/UL) IN BLOOD BY CALCULATION 1.23 10*3/uL Normal 1.20-4.00 [facility] Comment on above: Performed By: #### L [id number] ####[facility] ([facility])[address] [place] [address] LYMPHOCYTES/100 LEUKOCYTES IN BLOOD BY AUTOMATED COUNT 6.7 % Low 20.0-45.0 [facility] Comment on above: Performed By: #### L [id number] ####[facility] ([facility])[address] [place] [address] MONOCYTES (10*3/UL) IN BLOOD BY CALCUATION 0.87 10*3/uL Normal 0.10-1.00 [facility] Comment on above: Performed By: #### L [id number] ####[facility] ([facility])[address] [place] [address] MONOCYTES/100 LEUKOCYTES IN BLOOD BY AUTOMATED COUNT 4.7 % Low 5.0-12.0 [facility] Comment on above: Performed By: #### L [id number] ####[facility] ([facility])[address] [place] [address] NEUTROPHILS (10*3/UL) IN BLOOD BY CALCULATION 15.8 10*3/uL High 1.6-7.6 [facility] Comment on above: Performed By: #### L [id number] ####[facility] ([facility])[address] [place] [address] NEUTROPHILS/100 LEUKOCYTES IN BLOOD BY AUTOMATED COUNT 85.9 % High 40.0-72.0 [facility] Comment on above: Performed By: #### L [id number] ####[facility] ([facility])[address] [place] [address] NUCLEATED RED BLOOD CELLS IN BLOOD BY LIGHT MICROSCOPY Present Normal [facility] Comment on above: Performed By: #### L [id number] ####[facility] ([facility])[address] [place] [address] PLASMA CELLS/100 LEUKOCYTES IN BLOOD 0 % Normal 0 [facility] Comment on above: Performed By: #### L [id number] ####[facility] ([facility])[address] [place] [address] PLATELETS GIANT PRESENCE IN BLOOD BY LIGHT MICROSCOPY Present Normal [facility] Comment on above: Performed By: #### L [id number] ####[facility] ([facility])[address] [place] [address] POIKILOCYTOSIS (PRESENCE) IN BLOOD BY LIGHT MICROSCOPY Slight Normal [facility] Comment on above: Performed By: #### L [id number] ####[facility] ([facility])[address] [place], [place] [address] POLYCHROMASIA IN BLOOD BY LIGHT MICROSCOPY Slight Normal [facility] Comment on above: Performed By: #### L [id number] ####[facility] ([facility])[address] [place] [address] PROMYELOCYTES (10*3/UL) IN BLOOD BY CALCULATION 0.50 10*3/uL High 0.00 [facility] Comment on above: Performed By: #### L [id number] ####[facility] ([facility])[address] [place] [address] PROMYELOCYTES/100 LEUKOCYTES IN BLOOD CELLAVISION 2.7 % High 0.0-0.0 [facility] Comment on above: Performed By: #### L [id number] ####[facility] ([facility])[address] [place], [place] [address] VARIANT LYMPHOCYTES (10*3/UL) IN BLOOD BY CALCULATION 0.00 10*3/uL Normal 0.00 [facility] Comment on above: Performed By: #### L [id number] ####[facility] ([facility])[address] [place], [place] [address] VARIANT LYMPHOCYTES/100 LEUKOCYTES IN BLOOD CELLAVISION 0.0 % Normal 0.0-0.0 [facility] Comment on above: Performed By: #### L [id number] ####[facility] ([facility])[address] [place] [address] NURSNOTEon 11-19-2023 NURSNOTE Normal [facility] PHOSPHORUSon 11-19-2023 Magnesium [Mass/Vol] 4.1 mg/dL Normal 2.5-5.0 [facility] Comment on above: Performed By: #### L [id number] ####[facility] ([employer])[address] [place] [address] POTASSIUMon 11-19-2023 Potassium [Moles/Vol] 3.7 mmol/L Normal 3.5-5.1 [facility] Comment on above: Performed By: #### L [id number] ####[facility] ([employer])[address] [place] [address] PROTIME-INRon 11-19-2023 INR IN PPP BY COAGULATION ASSAY 4.04 High 0.90-1.10 [facility] Comment on above: Result Comment: ACCC P [...] CHEST 1995;108:231S-246S. Performed By: #### L [id number] ####[facility] ([employer])[address] [place] [address] PROTHROMBIN TIME (PT) IN PPP BY COAGULATION ASSAY 39.6 Seconds High 12.3-14.8 [facility] Comment on above: Performed By: #### L [id number] ####[facility] ([facility]AKER)[address] [place] [address] TYPE AND SCREENon 11-19-2023 AB SCREEN Negative Normal [facility] Comment on above: Performed By: #### L [id number] ####[facility], ABO group Nom (Bld) O Normal [facility] Comment on above: Performed By: #### L [id number] ####[facility], RH TYPE IN BLOOD Positive Normal [facility] Comment on above: Performed By: #### L [id number] ####[facility], 30on 11-18-2023 30 Normal [facility] 30on 11-17-2023 30 Normal [facility] 30 Normal [facility] 30 [facility] CONSULTon 11-17-2023 CONSULT [facility] NURSNOTEon 11-17-2023 NURSNOTE Patient states frustration with having to do assessment, and meds stating she doesn't want to be told what to do . Patient also refusing oxygen at this time. Normal [facility] 30on 11-16-2023 30 [facility] 30on 11-15-2023 30 Normal [facility] 30 [facility] ANESon 11-15-2023 ANES [facility] ARTERIAL BLOOD GAS WITH CO-O XIMETRYon 11-15-2023 Base excess Calc (Bld) [Moles/Vol] -16.41299 mmol/L Low -2.0-3.0 [facility] Comment on above: Performed By: #### L [id number] ####[facility] [id number] [place] [address] [place] CARBOXYHEMOGLOBIN/HEM OGLOBIN TOTAL % IN BLOOD 1.3 % Normal 0.0-3.0 [facility] Comment on above: Performed By: #### L [id number] ####[facility] [id number] [place] [address] [place] CO2 (Bld) [Partial pressure] 32 mm[Hg] Low 35-48 [facility] Comment on above: Performed By: #### L [id number] ####[facility] [id number] [place] [address] [facility] DEOXYGENATED HEMOGLOBIN IN BLOOD 4.6 % Normal 1-5 [facility] Comment on above: Performed By: #### L [id number] ####[facility] [id number] [place] [place] [address] [facility] HCO3 (Bld) [Moles/Vol] 11.1 mmol/L Low 21.0-28.0 [facility] Comment on above: Performed By: #### L [id number] ####[facility] [id number] [place] [place] [address] [facility] Hemoglobin (Bld) [Mass/Vol] 8.9 g/dL Low 11.7-17.4 [facility] Comment on above: Performed By: #### L [id number] ####[facility] [id number] [place] [place] [address] [facility] METHEMOGLOBIN/100 IN BLOOD 0.3 % Normal 0.0-1.5 [facility] Comment on above: Performed By: #### L [id number] ####[facility] RESPIRAT[facility] [id number] [place] [place] [address] [facility] Oxygen (Bld) [Partial pressure] 75 mm[Hg] Low 83-100 [facility] Comment on above: Performed By: #### L [id number] ####[facility] RESPIRATORY [id number] [place] [address] [place] OXYGEN SATURATION (%) IN ARTERIAL BLOOD 95.3 % Normal 94.0-98.0 [facility] Comment on above: Performed By: #### L [id number] ####[facility] RESPIRATORY [id number] [place] [place] [address] [place] OXYGENATED HEMOGLOBIN IN BLOOD 93.8 % Normal 90.0-95.0 [facility] Comment on above: Performed By: #### L [id number] ####[facility] RES[facility]IR[facility] [id number] [facility] [place] [address] [facility] pH (Bld) 7.15 [pH] Invalid Interpretation Code 7.35-7.45 [facility] Comment on above: Performed By: #### L [id number] ####[facility] [id number] [address] SOURCE OF OXYGEN Room Air Normal [facility] Comment on above: Performed By: #### L [id number] ####[facility] [id number] [place] [address] [facility] Base excess Calc (Bld) [Moles/Vol] -18.23020 mmol/L Low -2.0-3.0 [facility] Comment on above: Performed By: #### L [id number] ####[facility] [id number] [place], [place] [address] CARBOXYHEMOGLOBIN/HEM OGLOBIN TOTAL % IN BLOOD 1.7 % Normal 0.0-3.0 [facility] Comment on above: Performed By: #### L [id number] ####[facility] [id number] [place] [address] [facility] CO2 (Bld) [Partial pressure] 27 mm[Hg] Low 35-48 [facility] Comment on above: Performed By: #### L [id number] ####[facility] [id number] [address] DEOXYGENATED HEMOGLOBIN IN BLOOD 1.6 % Normal 1-5 [facility] Comment on above: Performed By: #### L [id number] ####[facility] [id number] [place] [address] [facility] HCO3 (Bld) [Moles/Vol] 9.0 mmol/L Low 21.0-28.0 [facility] Comment on above: Performed By: #### L [id number] ####[facility] [id number] [place] [address] [facility] Hemoglobin (Bld) [Mass/Vol] 9.6 g/dL Low 11.7-17.4 [facility] Comment on above: Performed By: #### L [id number] ####[facility] [id number] [place] [address] METHEMOGLOBIN/100 IN BLOOD 0.8 % Normal 0.0-1.5 [facility] Comment on above: Performed By: #### L [id number] ####[facility] [id number] [place] [address] [facility] Oxygen (Bld) [Partial pressure] 98 mm[Hg] Normal 83-100 [facility] Comment on above: Performed By: #### L [id number] ####[facility] [id number] [place] [address] [facility] OXYGEN SATURATION (%) IN ARTERIAL BLOOD 98.4 % High 94.0-98.0 [facility] Comment on above: Performed By: #### L [id number] ####[facility] [id number] [address] OXYGENATED HEMOGLOBIN IN BLOOD 95.9 % High 90.0-95.0 [facility] Comment on above: Performed By: #### L [id number] ####[facility] [id number] [place] [id number] [facility] pH (Bld) 7.13 [pH] Invalid Interpretation Code 7.35-7.45 [facility] Comment on above: Performed By: #### L [id number] ####[facility] [id number] [address] SOURCE OF OXYGEN Room Air Normal [facility] Comment on above: Performed By: #### L [id number] ####[facility] [id number] [place] [address] [facility] Base excess Calc (Bld) [Moles/Vol] -19.80566 mmol/L Low -2.0-3.0 [facility] Comment on above: Performed By: #### L [id number] ####[facility] [id number] [place] [address] [facility] CARBOXYHEMOGLOBIN/HEM OGLOBIN TOTAL % IN BLOOD 1.9 % Normal 0.0-3.0 [facility] Comment on above: Performed By: #### L [id number] ####[facility] [id number] [place] [address] [place] CO2 (Bld) [Partial pressure] 30 mm[Hg] Low 35-48 [facility] Comment on above: Performed By: #### L [id number] ####[facility] [id number] [place] [address] [place] DEOXYGENATED HEMOGLOBIN IN BLOOD 2.6 % Normal 1-5 [facility] Comment on above: Performed By: #### L [id number] ####[facility] [id number] [place] [address] [place] HCO3 (Bld) [Moles/Vol] 8.9 mmol/L Low 21.0-28.0 [facility] Comment on above: Performed By: #### L [id number] ####[facility] [id number] [place] [address] [place] Hemoglobin (Bld) [Mass/Vol] 9.8 g/dL Low 11.7-17.4 [facility] Comment on above: Performed By: #### L [id number] ####[facility] [id number] [place] [address] [place] METHEMOGLOBIN/100 IN BLOOD 0.7 % Normal 0.0-1.5 [facility] Comment on above: Performed By: #### L [id number] ####[facility] [id number] [place] [address] [place] Oxygen (Bld) [Partial pressure] 86 mm[Hg] Normal 83-100 [facility] Comment on above: Performed By: #### L [id number] ####[facility] [id number] [place] [address] [place] OXYGEN SATURATION (%) IN ARTERIAL BLOOD 97.3 % Normal 94.0-98.0 [facility] Comment on above: Performed By: #### L [id number] ####[facility] [id number] [place] [address] [place] OXYGENATED HEMOGLOBIN IN BLOOD 94.8 % Normal 90.0-95.0 [facility] Comment on above: Performed By: #### L [id number] ####[facility] [id number] [place] [address] [facility] pH (Bld) 7.08 [pH] Invalid Interpretation Code 7.35-7.45 [facility] Comment on above: Performed By: #### L [id number] ####[facility] [id number] [place] [address] [facility] SOURCE OF OXYGEN Room Air Normal [facility] Comment on above: Performed By: #### L [id number] ####[facility] [id number] [address] [place] [address] [facility] Base excess Calc (Bld) [Moles/Vol] -19.47672 mmol/L Low -2.0-3.0 [facility] Comment on above: Performed By: #### L [id number] ####[facility] [id number] [address] [address] [facility] CARBOXYHEMOGLOBIN/HEM OGLOBIN TOTAL % IN BLOOD 1.7 % Normal 0.0-3.0 [facility] Comment on above: Performed By: #### L [id number] ####[facility] [id number] [place] [address] [facility] CO2 (Bld) [Partial pressure] 27 mm[Hg] Low 35-48 [facility] Comment on above: Performed By: #### L [id number] ####[facility] [id number] [place] [address] [facility] DEOXYGENATED HEMOGLOBIN IN BLOOD 0.1 % Low 1-5 [facility] Comment on above: Performed By: #### L [id number] ####[facility] [id number] [place] [address] [place] HCO3 (Bld) [Moles/Vol] 8.6 mmol/L Low 21.0-28.0 [facility] Comment on above: Performed By: #### L [id number] ####[facility] [id number] [place] [address] [facility] Hemoglobin (Bld) [Mass/Vol] 8.0 g/dL Low 11.7-17.4 [facility] Comment on above: Performed By: #### L [id number] ####[facility] [id number] [place] [address] [facility] METHEMOGLOBIN/100 IN BLOOD 0.2 % Normal 0.0-1.5 [facility] Comment on above: Performed By: #### L [id number] ####[facility] [id number] [place] [address] [facility] Oxygen (Bld) [Partial pressure] 266 mm[Hg] High 83-100 [facility] Comment on above: Performed By: #### L [id number] ####[facility] [id number] [place] [address] [facility] OXYGEN SATURATION (%) IN ARTERIAL BLOOD 99.9 % High 94.0-98.0 [facility] Comment on above: Performed By: #### L [id number] ####[facility] [id number] [place] [address] [facility] OXYGENATED HEMOGLOBIN IN BLOOD 98.0 % High 90.0-95.0 [facility] Comment on above: Performed By: #### L [id number] ####[facility] [id number] [place] [address] [facility] pH (Bld) 7.11 [pH] Invalid Interpretation Code 7.35-7.45 [facility] Comment on above: Performed By: #### L [id number] ####[facility] [id number] [place] [address] [facility] SOURCE OF OXYGEN Non-rebreather mask Normal [facility] Comment on above: Performed By: #### L [id number] ####[facility] [id number] [place] [address] [facility] ARTERIAL BLOOD GAS WITH IONI ZED CALCIUMon 11-15-2023 Base excess Calc (Bld) [Moles/Vol] -5.2000 mmol/L Low -2.0-3.0 [facility] Comment on above: Performed By: #### L [id number] ####[facility] [id number] [place] [address] [place] CALCIUM IONIZED (MMOL/L) IN BLOOD 1.07 mmol/L Low 1.15-1.33 [facility] Comment on above: Performed By: #### L [id number] ####[facility] [id number] [address] CO2 (Bld) [Partial pressure] 32 mm[Hg] Low 35-48 [facility] Comment on above: Performed By: #### L [id number] ####[facility] [id number] [address] HCO3 (Bld) [Moles/Vol] 18.9 mmol/L Low 21.0-28.0 [facility] Comment on above: Performed By: #### L [id number] ####[facility] [id number] [address] Oxygen (Bld) [Partial pressure] 78 mm[Hg] Low 83-100 [facility] Comment on above: Performed By: #### L [id number] ####[facility] [id number] [address] OXYGEN SATURATION (%) IN ARTERIAL BLOOD 98.2 % High 94.0-98.0 [facility] Comment on above: Performed By: #### L [id number] ####[facility] [id number] [address] pH (Bld) 7.38 [pH] Normal 7.35-7.45 [facility] Comment on above: Performed By: #### L [id number] ####[facility] [id number] [address] SOURCE OF OXYGEN Room Air Normal [facility] Comment on above: Performed By: #### L [id number] ####[facility] [id number] [address] B-TYPE NATRIURETIC PEPTIDEon 11-15-2023 Natriuretic peptide B (Bld) [Mass/Vol] 165 pg/mL High 0-100 [facility] Comment on above: Performed By: #### L [id number] ####[facility] (BEAKER)[address] [place] [address] Natriuretic peptide B (Bld) [Mass/Vol] 175 pg/mL High 0-100 [facility] Comment on above: Performed By: #### L [id number] ####[facility] (BEAKER)[address] [place] [address] BASIC METABOLIC PANELon 07-0 Anion gap [Moles/Vol] 25 mmol/L High 7-20 [facility] Comment on above: Performed By: #### L [id number] ####[facility] [place] [address] Calcium [Mass/Vol] 7.4 mg/dL Low 8.6-10.3 [facility] Comment on above: Performed By: #### L [id number] ####[facility] [place] [address] Chloride [Moles/Vol] 108 mmol/L High 98-107 [facility] Comment on above: Performed By: #### L [id number] ####[facility] ([facility] [place] [address] CO2 [Moles/Vol] 22 mmol/L Normal 21-31 [facility] Comment on above: Performed By: #### L [id number] ####[facility] (BEAKER)[address] [place] [address] Creatinine [Mass/Vol] 1.33 mg/dL High 0.60-1.20 [facility] Comment on above: Performed By: #### L [id number] ####[facility] (BEAKER)[address] [place] [address] GLOMERULAR FILTRATION RATE ML/MIN/1.73 SQ M.PREDICTED 40.7 mL/min/1.73m*2 Low >60.0 [facility] Comment on above: Result Comment: [facility]???s estimated glomerular filtration rate (eGFR) will no [...] of individuals. Performed By: #### L [id number] ####[facility] ([facility])[address] [place] [address] Glucose [Mass/Vol] 140 mg/dL High 70-100 [facility] Comment on above: Performed By: #### L [id number] ####[facility] ([facility])[address] [place] [address] Potassium [Moles/Vol] 3.4 mmol/L Low 3.5-5.[address] [facility] Comment on above: Performed By: #### L [id number] ####[facility] ([facility])[address] [place] [address] Sodium [Moles/Vol] 152 mmol/L High 136-145 [facility] Comment on above: Performed By: #### L [id number] ####[facility] ([facility])[address] [place] [address] Urea nitrogen [Mass/Vol] 30 mg/dL High 7-25 [facility] Comment on above: Performed By: #### L [id number] ####[facility] ([facility])[address] [place] [address] UREA NITROGEN/CREATININE (MASS RATIO) IN SER/PLAS 22.6 Normal [facility] Comment on above: Performed By: #### L [id number] ####[facility] ([facility])[address] [place] [address] Anion gap [Moles/Vol] 28 mmol/L High 7-[address] [facility] Comment on above: Performed By: #### L [id number] ####[facility] ([facility])[address] [place] [address] Calcium [Mass/Vol] 6.7 mg/dL Low 8.6-10.3 [facility] Comment on above: Performed By: #### L [id number] ####[facility] ([facility])[address] [place] [address] Chloride [Moles/Vol] 112 mmol/L High 98-107 [facility] Comment on above: Performed By: #### L [id number] ####[facility] ([facility])[address] [place] [address] CO2 [Moles/Vol] 10 mmol/L Invalid Interpretation Code [facility] Comment on above: Performed By: #### L [id number] ####[facility] ([facility])[address] [place] [address] Creatinine [Mass/Vol] 1.18 mg/dL Normal 0.60-1.20 [facility] Comment on above: Performed By: #### L [id number] ####[facility] ([facility])[address] [place] [address] GLOMERULAR FILTRATION RATE ML/MIN/1.73 SQ M.PREDICTED 47.0 mL/min/1.73m*2 Low >60.0 [facility] Comment on above: Result Comment: [facility]???s estimated glomerular filtration rate (eGFR) will no [...] of individuals. Performed By: #### L [id number] ####[facility] ([facility])[address] [place] [address] Glucose [Mass/Vol] 239 mg/dL High 70-100 [facility] Comment on above: Performed By: #### L [id number] ####[facility] [place] [address] Potassium [Moles/Vol] 3.7 mmol/L Normal 3.5-5.1 [facility] Comment on above: Performed By: #### L [id number] ####[facility] (BEAKER)[address] [place] [address] Sodium [Moles/Vol] 146 mmol/L High 136-145 [facility] Comment on above: Performed By: #### L [id number] ####[facility] (BEAKER)[address] [place] [address] Urea nitrogen [Mass/Vol] 26 mg/dL High 7-25 [facility] Comment on above: Performed By: #### L [id number] ####[facility] (BEAKER)[address] [place] [address] UREA NITROGEN/CREATININE (MASS RATIO) IN SER/PLAS 22.0 Normal [facility] Comment on above: Performed By: #### L [id number] ####[facility] (BEAKER)[address] [place] [address] Anion gap [Moles/Vol] 16 mmol/L Normal 7-20 [facility] Comment on above: Performed By: #### L [id number] ####[facility] (BEAKER)[address] [place] [address] Calcium [Mass/Vol] 7.2 mg/dL Low 8.6-10.3 [facility] Comment on above: Performed By: #### L [id number] ####[facility] (BEAKER)[address] [place] [address] Chloride [Moles/Vol] 113 mmol/L High 98-107 [facility] Comment on above: Performed By: #### L [id number] ####[facility] (BEAKER)[address] [place] [address] CO2 [Moles/Vol] 18 mmol/L Low 21-31 [facility] Comment on above: Performed By: #### L [id number] ####[facility] ([facility])[address] [place] [address] Creatinine [Mass/Vol] 1.00 mg/dL Normal 0.60-1.20 [facility] Comment on above: Performed By: #### L [id number] ####[facility] ([facility])[address] [place] [address] GLOMERULAR FILTRATION RATE ML/MIN/1.73 SQ M.PREDICTED 57.3 mL/min/1.73m*2 Low >60.0 [facility] Comment on above: Result Comment: [facility]???s estimated glomerular filtration rate (eGFR) will no [...] of individuals. Performed By: #### L [id number] ####[facility] ([facility])[address] [place] [address] Glucose [Mass/Vol] 205 mg/dL High 70-100 [facility] Comment on above: Performed By: #### L [id number] ####[facility] ([facility])[address] [place] [address] Potassium [Moles/Vol] 3.9 mmol/L Normal 3.5-5.1 [facility] Comment on above: Performed By: #### L [id number] ####[facility] ([facility])[address] [place] [address] Sodium [Moles/Vol] 143 mmol/L Normal 136-145 [facility] Comment on above: Performed By: #### L [id number] ####[facility] ([facility] [place] [address] Urea nitrogen [Mass/Vol] 27 mg/dL High 7-25 [facility] Comment on above: Performed By: #### L [id number] ####[facility] ([facility] [place] [address] UREA NITROGEN/CREATININE (MASS RATIO) IN SER/PLAS 27.0 Normal [facility] Comment on above: Performed By: #### L [id number] ####[facility] ([facility])[address] [place] [address] BETA HYDROXYBUTYRATEon 11-14 BETA HYDROXYBUTYRATE (MMOL/L) IN SER/PLAS 0.31 mmol/L High 0.02-0.27 [facility] Comment on above: Performed By: #### L [id number] ####[facility] ([facility])[address] [place] [address] BLOOD CULTUREon 11-15-2023 Bacteria identified Cx Nom (Bld) No growth at 5 days Normal [facility] Comment on above: Order Comment: From a different site than #1. Performed By: #### L [id number] ####[facility] ([facility])[address] [place] [address] Bacteria identified Cx Nom (Bld) No growth at 5 days Normal [facility] Comment on above: Performed By: #### L [id number] ####[facility] ([facility])[address] [place] [address] CALCIUM, IONIZEDon CALCIUM IONIZED (MMOL/L) IN BLOOD 1.09 mmol/L Low 1.15-1.33 [facility] Comment on above: Performed By: #### C ALCIUM, IONIZED ####[facility] [id number] [place] [address] [place] CALCIUM IONIZED (MMOL/L) IN BLOOD 1.05 mmol/L Low 1.15-1.33 [facility] Comment on above: Performed By: #### C ALCIUM, IONIZED ####[facility] [id number] [place] [address] [place] CALCIUM IONIZED (MMOL/L) IN BLOOD 1.06 mmol/L Low 1.15-1.33 [facility] Comment on above: Performed By: #### C ALCIUM, IONIZED ####[facility] [id number] [place] [address] [facility] CALCIUM IONIZED (MMOL/L) IN BLOOD 1.12 mmol/L Low 1.15-1.33 [facility] Comment on above: Performed By: #### C ALCIUM, IONIZED ####[facility] [id number] [place] [address] [place] CBCon 11-15-2023 Erythrocyte distribution width (RBC) [Ratio] 21.2 % High 11.5-15.0 [facility] Comment on above: Performed By: #### L [id number] ####[facility] (BEAKER)[address] [place] [address] ERYTHROCYTE MEAN CORPUSCULAR HEMOGLOBIN CONCENTRATION (G/DL) BY AUTOMATED 33.3 g/dL Normal 32.0-35.0 [facility] Comment on above: Performed By: #### L [id number] ####[facility] (BEAKER)[address] [place] [address] Hematocrit (Bld) [Volume fraction] 21.9 % Low 36.0-48.0 [facility] Comment on above: Performed By: #### L [id number] ####[facility] (BEAKER)[address] [place] [address] Hemoglobin (Bld) [Mass/Vol] 7.3 g/dL Low 12.0-15.0 [facility] Comment on above: Performed By: #### L [id number] ####[facility] (BEAKER)[address] [place] [address] IMMATURE PLATELET FRACTION % 9.7 % High 0.8-6.3 [facility] Comment on above: Performed By: #### L [id number] ####[facility] (BEAKER)[address] [place] [address] MCH (RBC) [Entitic mass] 28.5 pg Normal 27.0-33.0 [facility] Comment on above: Performed By: #### L [id number] ####[facility] (BEAKER)[address] [place] [address] MCV (RBC) [Entitic vol] 85.5 fL Normal 82.0-98.0 [facility] Comment on above: Performed By: #### L [id number] ####[facility] (BEAKER)[address] [place] [address] PLATELETS (10*3/UL) IN BLOOD AUTOMATED COUNT 115 10*3/uL Low 150-400 [facility] Comment on above: Performed By: #### L [id number] ####[facility] ([facility] [place], [place] [address] RBC (Bld) [#/Vol] 2.56 10*6/uL Low 3.80-5.00 [facility] Comment on above: Performed By: #### L [id number] ####[facility] ([facility] [place], [place] [address] WBC (Bld) [#/Vol] 34.01 10*3/uL High 4.00-10.60 [facility] Comment on above: Performed By: #### L [id number] ####[facility] ([facility] [facility])[address], [place] [address] Erythrocyte distribution width (RBC) [Ratio] 21.1 % High 11.5-15.0 [facility] Comment on above: Performed By: #### L [id number] ####[facility] [place] [address] ERYTHROCYTE MEAN CORPUSCULAR HEMOGLOBIN CONCENTRATION (G/DL) BY AUTOMATED 32.2 g/dL Normal 32.0-35.0 [facility] Comment on above: Performed By: #### L [id number] ####[facility] ([facility], [place] [address] Hematocrit (Bld) [Volume fraction] 25.8 % Low 36.0-48.0 [facility] Comment on above: Result Comment: Pt i s in surgery on 11/15/23 Performed By: #### L [id number] ####[facility] ([facility] [place] [address] Hemoglobin (Bld) [Mass/Vol] 8.3 g/dL Low 12.0-15.0 [facility] Comment on above: Performed By: #### L [id number] ####[facility] ([facility])[address] [place] [address] MCH (RBC) [Entitic mass] 27.9 pg Normal 27.0-33.0 [facility] Comment on above: Performed By: #### L [id number] ####[facility] ([facility])[address] [place] [address] MCV (RBC) [Entitic vol] 86.6 fL Normal 82.0-98.0 [facility] Comment on above: Performed By: #### L [id number] ####[facility] ([facility])[address] [place] [address] PLATELETS (10*3/UL) IN BLOOD AUTOMATED COUNT 238 10*3/uL Normal 150-400 [facility] Comment on above: Performed By: #### L [id number] ####[facility] ([facility])[address] [place] [address] RBC (Bld) [#/Vol] 2.98 10*6/uL Low 3.80-5.00 [facility] Comment on above: Performed By: #### L [id number] ####[facility] ([facility])[address] [place] [address] WBC (Bld) [#/Vol] 16.89 10*3/uL High 4.00-10.60 [facility] Comment on above: Performed By: #### L [id number] ####[facility] ([facility])[address] [place] [address] CBC WITH AUTO DIFFERENTIALon 11-15-2023 Erythrocyte distribution width (RBC) [Ratio] 20.5 % High 11.5-15.0 [facility] Comment on above: Performed By: #### L [id number] ####[facility] ([facility])[address] [place] [address] ERYTHROCYTE MEAN CORPUSCULAR HEMOGLOBIN CONCENTRATION (G/DL) BY AUTOMATED 30.3 g/dL Low 32.0-35.0 [facility] Comment on above: Performed By: #### L [id number] ####[facility] ([facility])[address] [place] [address] Hematocrit (Bld) [Volume fraction] 32.0 % Low 36.0-48.0 [facility] Comment on above: Performed By: #### L [id number] ####[facility] ([facility])[address] [place] [address] Hemoglobin (Bld) [Mass/Vol] 9.7 g/dL Low 12.0-15.0 [facility] Comment on above: Performed By: #### L [id number] ####[facility] ([facility])[address] [place] [address] MCH (RBC) [Entitic mass] 27.6 pg Normal 27.0-33.0 [facility] Comment on above: Performed By: #### L [id number] ####[facility] ([facility])[address] [place] [address] MCV (RBC) [Entitic vol] 90.9 fL Normal 82.0-98.0 [facility] Comment on above: Performed By: #### L [id number] ####[facility] ([facility])[address] [place] [address] NRBC (PER 100 WBCS) BY AUTOMATED COUNT 0.5 % High 0 [facility] Comment on above: Performed By: #### L [id number] ####[facility] ([facility])[address] [place] [address] PLATELETS (10*3/UL) IN BLOOD AUTOMATED COUNT 207 10*3/uL Normal 150-400 [facility] Comment on above: Performed By: #### L [id number] ####[facility] ([facility])[address] [place] [address] RBC (Bld) [#/Vol] 3.52 10*6/uL Low 3.80-5.00 [facility] Comment on above: Performed By: #### L [id number] ####[facility] ([facility])[address] [place] [address] WBC (Bld) [#/Vol] 34.34 10*3/uL High 4.00-10.60 [facility] Comment on above: Performed By: #### L [id number] ####[facility] ([facility])[address] [place] [address] CLOSTRIDIOIDES DIFFICILE DNA AMPLIFICATIONon 11-15-2023 CLOSTRIDIOIDES DIFFICILE (TOXIN A/B) Negative Normal Negative [facility] Comment on above: Order Comment: Testi ng methodology is an in vitro diagnostic test for the direct, qualitative detection of the Clostridioides difficile Toxin A gene (tcdA) in unformed stool specimens of patients suspected of having Clostridioides difficile-infection (CDI). The [place] C. difficile Assay is intended for use as an aid in diagnosis of CDI. The assay utilizes helicase-dependent amplification (HDA) for the amplification of a highly conserved fragment of the Toxin A gene sequence. Performed By: #### L [id number] ####[facility] ([facility])[address] [place] [address] CONSULTon 11-15-2023 CONSULT Normal [facility] HEPATIC FUNCTION PANELon Albumin [Mass/Vol] 2.1 g/dL Low 3.5-5.7 [facility] Comment on above: Performed By: #### L [id number] ####[facility] ([facility])[address] [place] [address] ALP [Catalytic activity/Vol] 65 U/L Normal 34-104 [facility] Comment on above: Performed By: #### L [id number] ####[facility] ([facility])[address] [place] [address] ALT [Catalytic activity/Vol] 647 U/L High 7-52 [facility] Comment on above: Performed By: #### L [id number] ####[facility] ([facility])[address] [place] [address] AST [Catalytic activity/Vol] 1580 U/L High 13-39 [facility] Comment on above: Performed By: #### L [id number] ####[facility] ([facility])[address] [place] [address] Bilirubin [Mass/Vol] 1.0 mg/dL Normal 0.3-1.0 [facility] Comment on above: Performed By: #### L [id number] ####[facility] ([facility])[address] [place] [address] Magnesium [Mass/Vol] 0.5 mg/dL High 0-0.2 [facility] Comment on above: Performed By: #### L [id number] ####[facility] ([facility])[address] [place] [address] Protein [Mass/Vol] 3.2 g/dL Low 6.0-8.3 [facility] Comment on above: Performed By: #### L [id number] ####[facility] ([facility])[address] [place] [address] LACTIC ACID WITH 4 HOUR REFL EXon 11-15-2023 LACTATE (MMOL/L) IN SER/PLAS 13.2 mmol/L Critically high 0.5-2.2 [facility] Comment on above: Result Comment: M-[place] EVIOUS CRITICAL RESULTPrevious result verified on 11/15/2023 1231 on specimen/case [id number] called with component Lactate for procedure Lactic acid, plasma with value 16.9 mmol/L. Performed By: #### L [id number] ####[facility] ([facility])[address] [place] [address] LACTIC ACID, PLASMAon 2023 LACTATE (MMOL/L) IN SER/PLAS 16.9 mmol/L Critically high 0.5-2.2 [facility] Comment on above: Result Comment: Prev ious result verified on 11/15/2023 1055 on specimen/case [id number] called with component Lactate for procedure Lactic acid, plasma with value 17.0 mmol/L. Performed By: #### L [id number] ####[facility] ([facility])[address] [place] [address] LACTATE (MMOL/L) IN SER/PLAS 17.0 mmol/L Critically high 0.5-2.2 [facility] Comment on above: Performed By: #### L [id number] ####[facility] ([facility])[address] [place] [address] MAGNESIUMon 11-15-2023 Magnesium [Mass/Vol] 2.5 mg/dL Normal 1.9-2.7 [facility] Comment on above: Performed By: #### L [id number] ####[facility] ([facility])[address] [place] [address] Magnesium [Mass/Vol] 1.6 mg/dL Low 1.9-2.7 [facility] Comment on above: Performed By: #### L [id number] ####[facility] ([facility])[address] [facility] [place] [address] MANUAL DIFFERENTIALon 2023 ANISOCYTOSIS PRESENCE IN BLOOD BY LIGHT MICROSCOPY Moderate Normal [facility] Comment on above: Performed By: #### L [id number] ####[facility] ([facility])[address] [place] [address] BASOPHILS (10*3/UL) IN BLOOD BY CALCULATION 0.00 10*3/uL Normal 0.00-0.20 [facility] Comment on above: Performed By: #### L [id number] ####[facility] ([facility])[address] [place] [address] BASOPHILS/100 LEUKOCYTES IN BLOOD BY AUTOMATED COUNT 0.0 % Normal 0.0-1.0 [facility] Comment on above: Performed By: #### L [id number] ####[facility] ([facility])[address] [place] [address] EOSINOPHILS (10*3/UL) IN BLOOD BY CALCULATION 0.00 10*3/uL Normal 0.00-0.50 [facility] Comment on above: Performed By: #### L [id number] ####[facility] ([facility])[address] [place] [address] EOSINOPHILS/100 LEUKOCYTES IN BLOOD BY AUTOMATED COUNT 0.0 % Normal 0.0-6.0 [facility] Comment on above: Performed By: #### L [id number] ####[facility] ([facility])[address] [place] [address] LYMPHOCYTES (10*3/UL) IN BLOOD BY CALCULATION 2.51 10*3/uL Normal 1.20-4.00 [facility] Comment on above: Performed By: #### L [id number] ####[facility] ([facility])[address] [place] [address] LYMPHOCYTES/100 LEUKOCYTES IN BLOOD BY AUTOMATED COUNT 7.3 % Low 20.0-45.0 [facility] Comment on above: Performed By: #### L [id number] ####[facility] ([facility])[address] [place] [address] MONOCYTES (10*3/UL) IN BLOOD BY CALCUATION 0.93 10*3/uL Normal 0.10-1.00 [facility] Comment on above: Performed By: #### L [id number] ####[facility] ([facility])[address] [place] [address] MONOCYTES/100 LEUKOCYTES IN BLOOD BY AUTOMATED COUNT 2.7 % Low 5.0-12.0 [facility] Comment on above: Performed By: #### L [id number] ####[facility] ([facility])[address] [place] [address] MYELOCYTES (10*3/UL) IN BLOOD BY CALCULATION 0.93 10*3/uL High 0.00 [facility] Comment on above: Performed By: #### L [id number] ####[facility] ([facility] [place] [address] MYELOCYTES/100 LEUKOCYTES IN BLOOD CELLAVISION 2.7 % High 0.0-0.0 [facility] Comment on above: Performed By: #### L [id number] ####[facility] ([facility])[address] [place] [address] NEUTROPHILS (10*3/UL) IN BLOOD BY CALCULATION 30.0 10*3/uL High 1.6-7.6 [facility] Comment on above: Performed By: #### L [id number] ####[facility] ([facility])[address] [place] [address] NEUTROPHILS/100 LEUKOCYTES IN BLOOD BY AUTOMATED COUNT 87.3 % High 40.0-72.0 [facility] Comment on above: Performed By: #### L [id number] ####[facility] ([facility])[address] [place] [address] PLASMA CELLS/100 LEUKOCYTES IN BLOOD 0 % Normal 0 [facility] Comment on above: Performed By: #### L [id number] ####[facility] ([facility])[address] [place] [address] PLATELETS GIANT PRESENCE IN BLOOD BY LIGHT MICROSCOPY Present Normal [facility] Comment on above: Performed By: #### L [id number] ####[facility] ([facility])[address] [place] [address] POIKILOCYTOSIS (PRESENCE) IN BLOOD BY LIGHT MICROSCOPY Slight Normal [facility] Comment on above: Performed By: #### L [id number] ####[facility] ([facility])[address] [place] [address] POLYCHROMASIA IN BLOOD BY LIGHT MICROSCOPY Slight Normal [facility] Comment on above: Performed By: #### L [id number] ####[facility] ([facility])[address] [place] [address] SMUDGE CELLS/100 LEUKOCYTES IN BLOOD CELLAVISION Present Normal [facility] Comment on above: Performed By: #### L [id number] ####[facility] ([facility])[address] [place] [address] VARIANT LYMPHOCYTES (10*3/UL) IN BLOOD BY CALCULATION 0.00 10*3/uL Normal 0.00 [facility] Comment on above: Performed By: #### L [id number] ####[facility] ([facility])[address] [place] [address] VARIANT LYMPHOCYTES/100 LEUKOCYTES IN BLOOD CELLAVISION 0.0 % Normal 0.0-0.0 [facility] Comment on above: Performed By: #### L [id number] ####[facility] ([facility])[address] [place] [address] NURSNOTEon 11-15-2023 NURSNOTE Normal [facility] NURSNOTE Normal [facility] PHOSPHORUSon 11-15-2023 Magnesium [Mass/Vol] 8.6 mg/dL High 2.5-5.0 [facility] Comment on above: Performed By: #### L [id number] ####[facility] ([facility])[address] [place] [address] Magnesium [Mass/Vol] 6.0 mg/dL High 2.5-5.0 [facility] Comment on above: Performed By: #### L [id number] ####[facility] ([facility])[address] [facility] [place] [address] POCT GLUCOSE METER UNSOLICIT ED RESULTSon 11-15-2023 Glucose [Mass/Vol] 165 mg/dL High 70-105 [facility] Comment on above: Order Comment: Waive d Testing in the ED is performed under the ED CLIA certificate #[id number]. Result Comment: [email or web address] Performed By: #### L [id number] ####[facility] ([facility])[address] [place] [address] Glucose [Mass/Vol] 208 mg/dL High 70-105 [facility] Comment on above: Order Comment: Waive d Testing in the ED is performed under the ED CLIA certificate #[id number]. Result Comment: mmcc vargas Performed By: #### L [id number] ####[facility] ([facility])[address] [place] [address] POCT PERFUSION PANEL UNSOLIC ITED RESULTSon 11-15-2023 CO2 [Moles/Vol] 20.0 mmol/L Low 21.0-29.0 [facility] Comment on above: Performed By: #### L [id number] ####[facility] ([facility])[address] [place] [address] Glucose [Mass/Vol] 210 mg/dL High 70-105 [facility] Comment on above: Performed By: #### L [id number] ####[facility] ([facility])[address] [place] [address] HCO3 (Bld) [Moles/Vol] 18.9 mmol/L Low 23.0-28.0 [facility] Comment on above: Performed By: #### L [id number] ####[facility] ([facility])[address] [place] [address] Hematocrit (Bld) [Volume fraction] 26 % Low 38-51 [facility] Comment on above: Performed By: #### L [id number] ####[facility] ([facility])[address] [place] [address] Hemoglobin (Bld) [Mass/Vol] 8.8 g/dL Low 12.0-17.0 [facility] Comment on above: Performed By: #### L [id number] ####[facility] ([facility])[address] [place] [address] POCT BASE EXCESS -7.0 mmol/L Low -2.0-3.0 [facility] Comment on above: Performed By: #### L [id number] ####[facility] ([facility])[address] [place] [address] POCT IONIZED CALCIUM 1.15 mmol/L Normal 1.12-1.32 [facility] Comment on above: Performed By: #### L [id number] ####[facility] ([facility])[address] [place] [address] POCT PCO2 39.7 mmHg Low 41.0-51.0 [facility] Comment on above: Performed By: #### L [id number] ####[facility] ([facility])[address] [place] [address] POCT PH 7.29 Low 7.31-7.41 [facility] Comment on above: Performed By: #### L [id number] ####[facility] ([facility])[address] [place] [address] POCT PO2 68 mmHg Low 80-105 [facility] Comment on above: Performed By: #### L [id number] ####[facility] ([facility])[address] [place] [address] POCT SO2 91 % Low 95-98 [facility] Comment on above: Performed By: #### L [id number] ####[facility] ([facility])[address] [place] [address] Potassium [Moles/Vol] 3.8 mmol/L Normal 3.5-4.9 [facility] Comment on above: Performed By: #### L [id number] ####[facility] ([facility])[address] [place] [address] Sodium [Moles/Vol] 142 mmol/L Normal 138.0-146.0 [facility] Comment on above: Performed By: #### L [id number] ####[facility] ([facility])[address] [place] [address] POTASSIUM, WHOLE BLOODon Potassium [Moles/Vol] 3.1 mmol/L Low 3.5-5.1 [facility] Comment on above: Performed By: #### P OTASSIUM, WHOLE BLOOD ####[facility] [id number] [place] [address] [place] Potassium [Moles/Vol] 3.9 mmol/L Normal 3.5-5.1 [facility] Comment on above: Performed By: #### P OTASSIUM, WHOLE BLOOD ####[facility] [id number] [place] [address] [place] Potassium [Moles/Vol] 3.8 mmol/L Normal 3.5-5.1 [facility] Comment on above: Performed By: #### P OTASSIUM, WHOLE BLOOD ####[facility] [id number] [place] [address] [facility] Potassium [Moles/Vol] 5.1 mmol/L Normal 3.5-5.1 [facility] Comment on above: Performed By: #### P OTASSIUM, WHOLE BLOOD ####[facility] [id number] [place] [address] [facility] PROTIME-INRon 11-15-2023 INR IN PPP BY COAGULATION ASSAY 11.87 Critically high 0.90-1.10 [facility] Comment on above: Result Comment: ACCC P [...] CHEST 1995;108:231S-246S. Performed By: #### L [id number] ####[facility] ([facility])[address] [place] [address] PROTHROMBIN TIME (PT) IN PPP BY COAGULATION ASSAY 92.6 Seconds Critically high 12.3-14.8 [facility] Comment on above: Performed By: #### L [id number] ####[facility] ([facility])[address] [place] [address] INR IN PPP BY COAGULATION ASSAY 12.96 Critically high 0.90-1.10 [facility] Comment on above: Result Comment: ACCC P [...] CHEST 1995;108:[id number]. Performed By: #### L [id number] ####[facility] ([facility])[address] [place] [address] PROTHROMBIN TIME (PT) IN PPP BY COAGULATION ASSAY 99.2 Seconds Critically high 12.3-14.8 [facility] Comment on above: Performed By: #### L [id number] ####[facility] ([facility])[address] [place] [address] SODIUM, WHOLE BLOODon 2023 SODIUM, WHOLE BLOOD 143 Normal 136-145 [facility] Comment on above: Performed By: #### S ODIUM, WHOLE BLOOD ####[facility] [id number] [place] [address] [facility] SODIUM, WHOLE BLOOD 142 Normal 136-145 [facility] Comment on above: Performed By: #### S ODIUM, WHOLE BLOOD ####[facility] [id number] [place] [address] [facility] SODIUM, WHOLE BLOOD 140 Normal 136-145 [facility] Comment on above: Performed By: #### S ODIUM, WHOLE BLOOD ####[facility] [id number] [place] [address] [facility] SODIUM, WHOLE BLOOD 138 Normal 136-145 [facility] Comment on above: Performed By: #### S ODIUM, WHOLE BLOOD ####[facility] [id number] [place] [address] [facility] TROPONIN Ion 11-15-2023 Troponin I.cardiac [Mass/Vol] 0.10 ng/mL High 0.00-0.04 [facility] Comment on above: Performed By: #### L [id number] ####[facility] ([facility])[address] [place] [address] VANCOMYCIN, PEAKon VANCOMYCIN (UG/ML) IN SER/PLAS - PEAK 21.0 ug/mL Normal 20.0-50.0 [facility] Comment on above: Performed By: #### L [id number] ####[facility] ([facility])[address] [place] [address] VITAMIN D 25 HYDROXYon 11-14 CALCIDIOL (25 [place] VITAMIN D3) (NG/ML) IN SER/PLAS 26.1 ng/mL Low 30.0-80.0 [facility] Comment on above: Result Comment: >80. 0 Toxicity possible Performed By: #### L [id number] ####[facility] ([facility] [place] [address] 30on 11-14-2023 30 Normal [facility] 30 Normal [facility] ANESon 11-14-2023 ANES Normal [facility] ARTERIAL BLOOD GAS WITH CO-O XIMETRYon 11-14-2023 Base excess Calc (Bld) [Moles/Vol] 2.2 mmol/L Normal -2.0-3.0 [facility] Comment on above: Order Comment: Pt in tubated in [place] Performed By: #### L [id number] ####[facility] [id number] [place] [address] [place] CARBOXYHEMOGLOBIN/HEM OGLOBIN TOTAL % IN BLOOD 1.5 % Normal 0.0-3.0 [facility] Comment on above: Order Comment: Pt in tubated in [place] Performed By: #### L [id number] ####[facility] [id number] [place] [address] [place] CO2 (Bld) [Partial pressure] 39 mm[Hg] Normal 35-48 [facility] Comment on above: Order Comment: Pt in tubated in [place] Performed By: #### L [id number] ####[facility] [id number] [place] [address] [place] DEOXYGENATED HEMOGLOBIN IN BLOOD 0.9 % Low 1-5 [facility] Comment on above: Order Comment: Pt in tubated in [place] Performed By: #### L [id number] ####[facility] [id number] [place] [address] [place] HCO3 (Bld) [Moles/Vol] 26.5 mmol/L Normal 21.0-28.0 [facility] Comment on above: Order Comment: Pt in tubated in [place] Performed By: #### L [id number] ####[facility] [id number] [place] [address] [place] Hemoglobin (Bld) [Mass/Vol] 9.0 g/dL Low 11.7-17.4 [facility] Comment on above: Order Comment: Pt in tubated in [place] Performed By: #### L [id number] ####[facility] [id number] [place] [address] [place] METHEMOGLOBIN/100 IN BLOOD 0.2 % Normal 0.0-1.5 [facility] Comment on above: Order Comment: Pt in tubated in [place] Performed By: #### L [id number] ####[facility] [id number] [place] [address] [place] Oxygen (Bld) [Partial pressure] 125 mm[Hg] High 83-100 [facility] Comment on above: Order Comment: Pt in tubated in [place] Performed By: #### L [id number] ####[facility] [id number] [facility] [place] [address] [facility] OXYGEN SATURATION (%) IN ARTERIAL BLOOD 99.1 % High 94.0-98.0 [facility] Comment on above: Order Comment: Pt in tubated [place] Performed By: #### L [id number] ####[facility] [id number] [address] [facility] OXYGENATED HEMOGLOBIN IN BLOOD 97.4 % High 90.0-95.0 [facility] Comment on above: Order Comment: Pt in tubated in [place] Performed By: #### L [id number] ####[facility] [id number] [address] [facility] pH (Bld) 7.44 [pH] Normal 7.35-7.45 [facility] Comment on above: Order Comment: Pt in tubated in [place] Performed By: #### L [id number] ####[facility] [id number] [place] [address] [facility] SOURCE OF OXYGEN Vent Normal [facility] Comment on above: Order Comment: Pt in tubated in [place] Performed By: #### L [id number] ####[facility] [id number] [place] [address] [facility] Base excess Calc (Bld) [Moles/Vol] 7.0 mmol/L High -2.0-3.0 [facility] Comment on above: Performed By: #### L [id number] ####[facility] [id number] [place] [place] [address] [facility] CARBOXYHEMOGLOBIN/HEM OGLOBIN TOTAL % IN BLOOD 1.4 % Normal 0.0-3.0 [facility] Comment on above: Performed By: #### L [id number] ####[facility] [id number] [place] [address] [facility] CO2 (Bld) [Partial pressure] 33 mm[Hg] Low 35-48 [facility] Comment on above: Performed By: #### L [id number] ####[facility] [id number] [place] [address] [place] DEOXYGENATED HEMOGLOBIN IN BLOOD 1.2 % Normal 1-5 [facility] Comment on above: Performed By: #### L [id number] ####[facility] [id number] [place] [address] [place] HCO3 (Bld) [Moles/Vol] 29.5 mmol/L High 21.0-28.0 [facility] Comment on above: Performed By: #### L [id number] ####[facility] [id number] [place] [address] [place] Hemoglobin (Bld) [Mass/Vol] 9.7 g/dL Low 11.7-17.4 [facility] Comment on above: Performed By: #### L [id number] ####[facility] [id number] [place] [address] [place] METHEMOGLOBIN/100 IN BLOOD 0.7 % Normal 0.0-1.5 [facility] Comment on above: Performed By: #### L [id number] ####[facility] [id number] [place] [address] [place] Oxygen (Bld) [Partial pressure] 135 mm[Hg] High 83-100 [facility] Comment on above: Performed By: #### L [id number] ####[facility] [id number] [place] [address] [place] OXYGEN SATURATION (%) IN ARTERIAL BLOOD 98.8 % High 94.0-98.0 [facility] Comment on above: Performed By: #### L [id number] ####[facility] [id number] [place] [address] [place] OXYGENATED HEMOGLOBIN IN BLOOD 96.7 % High 90.0-95.0 [facility] Comment on above: Performed By: #### L [id number] ####[facility] [id number] [place] [address] [place] pH (Bld) 7.56 [pH] Critically high 7.35-7.45 [facility] Comment on above: Performed By: #### L [id number] ####[facility] [id number] [place] [address] [place] SOURCE OF OXYGEN Vent Normal [facility] ty [facility] Comment on above: Performed By: #### L [id number] ####[facility] [id number] [place] [address] [place] BASIC METABOLIC PANELon 07-0 Anion gap [Moles/Vol] 12 mmol/L Normal 7-20 [facility] Comment on above: Performed By: #### L [id number] ####[facility] LAB (BEAKER)[address] [place] [address] Calcium [Mass/Vol] 7.4 mg/dL Low 8.6-10.3 [facility] Comment on above: Performed By: #### L [id number] ####[facility] (BEAKER)[address] [place] [address] Chloride [Moles/Vol] 105 mmol/L Normal 98-107 [facility] Comment on above: Performed By: #### L [id number] ####[facility] (BEAKER)[address] [place] [address] CO2 [Moles/Vol] 31 mmol/L Normal 21-31 [facility] Comment on above: Performed By: #### L [id number] ####[facility] (BEAKER)[address] [place] [address] Creatinine [Mass/Vol] 0.91 mg/dL Normal 0.60-1.20 [facility] Comment on above: Performed By: #### L [id number] ####[facility] (BEAKER)[address] [place] [address] GLOMERULAR FILTRATION RATE ML/MIN/1.73 SQ M.PREDICTED 64.2 mL/min/1.73m*2 Normal >60.0 [facility] Comment on above: Result Comment: [facility]???s estimated glomerular filtration rate (eGFR) will no [...] of individuals. Performed By: #### L [id number] ####[facility] ([facility])[address] [place] [place] [address] Glucose [Mass/Vol] 120 mg/dL High 70-100 [facility] Comment on above: Performed By: #### L [id number] ####[facility] ([facility])[address] [place] [address] Potassium [Moles/Vol] 4.1 mmol/L Normal 3.5-5.[address] [facility] Comment on above: Performed By: #### L [id number] ####[facility] ([facility])[address] [place] [address] Sodium [Moles/Vol] 144 mmol/L Normal 136-145 [facility] Comment on above: Performed By: #### L [id number] ####[facility] ([facility])[address] [place] [address] Urea nitrogen [Mass/Vol] 24 mg/dL Normal 7-25 [facility] Comment on above: Performed By: #### L [id number] ####[facility] ([facility])[address] [place] [address] UREA NITROGEN/CREATININE (MASS RATIO) IN SER/PLAS 26.4 Normal [facility] Comment on above: Performed By: #### L [id number] ####[facility] ([facility])[address] [place] [address] CALCIUM, IONIZEDon 4 CALCIUM IONIZED (MMOL/L) IN BLOOD 1.17 mmol/L Normal 1.15-1.33 [facility] Comment on above: Performed By: #### C ALCIUM, IONIZED ####[facility] [id number] [facility] [place] [address] [facility] CBC WITH AUTO DIFFERENTIALon 11-14-2023 Basophils (Bld) [#/Vol] 0.03 10*3/uL Normal 0.00-0.20 [facility] Comment on above: Performed By: #### L [id number] ####[facility] (BEAKER)[address] [place] [address] Basophils/100 WBC (Bld) 0.4 % Normal 0.0-1.0 [facility] Comment on above: Performed By: #### L [id number] ####[facility] (BEAKER)[address] [place] [address] Eosinophils (Bld) [#/Vol] 0.00 10*3/uL Normal 0.00-0.50 [facility] Comment on above: Performed By: #### L [id number] ####[facility] (BEAKER)[address] [place] [address] Eosinophils/100 WBC (Bld) 0.0 % Normal 0.0-6.0 [facility] Comment on above: Performed By: #### L [id number] ####[facility] (BEAKER)[address] [place] [address] Erythrocyte distribution width (RBC) [Ratio] 16.0 % High 11.5-15.0 [facility] Comment on above: Performed By: #### L [id number] ####[facility] (BEAKER)[address] [place] [address] ERYTHROCYTE MEAN CORPUSCULAR HEMOGLOBIN CONCENTRATION (G/DL) BY AUTOMATED 30.2 g/dL Low 32.0-35.0 [facility] Comment on above: Performed By: #### L [id number] ####[facility] (BEAKER)[address] [place] [address] Hematocrit (Bld) [Volume fraction] 32.1 % Low 36.0-48.0 [facility] Comment on above: Performed By: #### L [id number] ####[facility] (BEAKER)[address] [place] [address] Hemoglobin (Bld) [Mass/Vol] 9.7 g/dL Low 12.0-15.0 [facility] Comment on above: Performed By: #### L [id number] ####[facility] (BEAKER)[address] [place] [address] Immature granulocytes (Bld) [#/Vol] 0.07 10*3/uL Normal 0.00-0.20 [facility] Comment on above: Performed By: #### L [id number] ####[facility] (BEAKER)[address] [place] [address] Immature granulocytes/100 WBC (Bld) 0.8 % Normal 0.0-1.0 [facility] Comment on above: Performed By: #### L [id number] ####[facility] (BEAKER)[address] [place] [address] Lymphocytes (Bld) [#/Vol] 1.34 10*3/uL Normal 1.20-4.00 [facility] Comment on above: Performed By: #### L [id number] ####[facility] (BEAKER)[address] [place] [address] Lymphocytes/100 WBC (Bld) 15.9 % Low 20.0-45.0 [facility] Comment on above: Performed By: #### L [id number] ####[facility] (BEAKER)[address] [place] [address] MCH (RBC) [Entitic mass] 29.1 pg Normal 27.0-33.0 [facility] Comment on above: Performed By: #### L [id number] ####[facility] (BEAKER)[address] [place] [address] MCV (RBC) [Entitic vol] 96.4 fL Normal 82.0-98.0 [facility] Comment on above: Performed By: #### L [id number] ####[facility] (BEAKER)[address] [place] [address] Monocytes (Bld) [#/Vol] 0.77 10*3/uL Normal 0.10-1.00 [facility] Comment on above: Performed By: #### L [id number] ####[facility] ([facility])[address] [place] [address] Monocytes/100 WBC (Bld) 9.1 % Normal 5.0-12.0 [facility] Comment on above: Performed By: #### L [id number] ####[facility] ([facility])[address] [place] [address] Neutrophils (Bld) [#/Vol] 6.22 10*3/uL Normal 1.60-7.60 [facility] Comment on above: Performed By: #### L [id number] ####[facility] ([facility])[address] [place] [address] Neutrophils/100 WBC (Bld) 73.8 % High 40.0-72.0 [facility] Comment on above: Performed By: #### L [id number] ####[facility] ([facility])[address] [place] [address] NRBC (PER 100 WBCS) BY AUTOMATED COUNT 0.0 % Normal 0 [facility] Comment on above: Performed By: #### L [id number] ####[facility] ([facility])[address] [place] [address] PLATELETS (10*3/UL) IN BLOOD AUTOMATED COUNT 223 10*3/uL Normal 150-400 [facility] Comment on above: Performed By: #### L [id number] ####[facility] ([facility])[address] [place] [address] RBC (Bld) [#/Vol] 3.33 10*6/uL Low 3.80-5.00 [facility] Comment on above: Performed By: #### L [id number] ####[facility] ([facility] [place] [address] WBC (Bld) [#/Vol] 8.43 10*3/uL Normal 4.00-10.60 [facility] Comment on above: Performed By: #### L [id number] ####[facility] ([facility])[address] [place] [address] CONSULTon 11-14-2023 CONSULT Normal [facility] HPon 11-14-2023 HP Normal [facility] MAGNESIUMon 11-14-2023 Magnesium [Mass/Vol] 1.7 mg/dL Low 1.9-2.7 [facility] Comment on above: Performed By: #### L [id number] ####[facility] ([facility])[address] [place] [address] OPNOTEon 11-14-2023 OPNOTE [facility] PHOSPHORUSon 11-14-2023 Magnesium [Mass/Vol] 4.5 mg/dL Normal 2.5-5.0 [facility] Comment on above: Performed By: #### L [id number] ####[facility] ([facility])[address] [place] [address] POCT GLUCOSE METER UNSOLICIT ED RESULTSon 11-14-2023 Glucose [Mass/Vol] 181 mg/dL High 70-105 [facility] Comment on above: Order Comment: Waive d Testing in the ED is performed under the ED CLIA certificate #[id number]. Result Comment: czyd orc Performed By: #### L [id number] ####[facility] ([facility])[address] [place] [address] Glucose [Mass/Vol] 120 mg/dL High 70-105 [facility] Comment on above: Order Comment: Waive d Testing in the ED is performed under the ED CLIA certificate #[id number]. Result Comment: epaw low Performed By: #### L [id number] ####[facility] ([facility])[address] [place] [address] Glucose [Mass/Vol] 113 mg/dL High 70-105 [facility] Comment on above: Order Comment: Waive d Testing in the ED is performed under the ED CLIA certificate #[id number]. Result Comment: epoo [email or web address] Performed By: #### L [id number] ####[facility] ([facility] [place] [address] Glucose [Mass/Vol] 131 mg/dL High 70-105 [facility] Comment on above: Order Comment: Waive d Testing in the ED is performed under the ED CLIA certificate #[id number]. Result Comment: lzwo judith Performed By: #### L [id number] ####[facility] ([facility])[address] [place] [address] Glucose [Mass/Vol] 111 mg/dL High 70-105 [facility] Comment on above: Order Comment: Waive d Testing in the ED is performed under the ED CLIA certificate #[id number]. Result Comment: lzwo judith Performed By: #### L [id number] ####[facility] ([facility])[address] [place] [address] POTASSIUM, WHOLE BLOODon Potassium [Moles/Vol] 4.0 mmol/L Normal 3.5-5.1 [facility] Comment on above: Performed By: #### P OTASSIUM, WHOLE BLOOD ####[facility] [id number] [place] [address] [facility] SODIUM, WHOLE BLOODon 2023 SODIUM, WHOLE BLOOD 139 Normal 136-145 [facility] Comment on above: Performed By: #### S ODIUM, WHOLE BLOOD ####[facility] [id number] [place] [address] [facility] APTTon 11-13-2023 ACTIVATED PARTIAL THROMBOPLASTIN TIME IN PPP BY COAGULATION ASSAY 34.0 Seconds Normal 25.0-35.0 [facility] Comment on above: Result Comment: Clin ical significance of the APTT is questionable in the presence of heparin. Performed By: #### L [id number] ####[facility] ([facility] [address] BASIC METABOLIC PANELon Anion gap [Moles/Vol] 16 mmol/L Normal 7-20 [facility] Comment on above: Performed By: #### L [id number] ####[facility] ([facility])[address] [place] [address] Calcium [Mass/Vol] 7.8 mg/dL Low 8.6-10.3 [facility] Comment on above: Performed By: #### L [id number] ####[facility] ([facility])[address] [place] [address] Chloride [Moles/Vol] 104 mmol/L Normal 98-107 [facility] Comment on above: Performed By: #### L [id number] ####[facility] ([facility])[address] [place] [address] CO2 [Moles/Vol] 27 mmol/L Normal 21-31 [facility] Comment on above: Performed By: #### L [id number] ####[facility] ([facility])[address] [place] [address] Creatinine [Mass/Vol] 0.91 mg/dL Normal 0.60-1.20 [facility] Comment on above: Performed By: #### L [id number] ####[facility] ([facility])[address] [place] [address] GLOMERULAR FILTRATION RATE ML/MIN/1.73 SQ M.PREDICTED 64.2 mL/min/1.73m*2 Normal >60.0 [facility] Comment on above: Result Comment: [facility]???s estimated glomerular filtration rate (eGFR) will no [...] of individuals. Performed By: #### L [id number] ####[facility] ([facility])[address] [place] [address] Glucose [Mass/Vol] 125 mg/dL High 70-100 [facility] Comment on above: Performed By: #### L [id number] ####[facility] ([facility])[address] [place] [address] Potassium [Moles/Vol] 4.4 mmol/L Normal 3.5-5.1 [facility] Comment on above: Performed By: #### L [id number] ####[facility] ([facility])[address] [place] [address] Sodium [Moles/Vol] 143 mmol/L Normal 136-145 [facility] Comment on above: Performed By: #### L [id number] ####[facility] ([facility])[address] [place] [address] Urea nitrogen [Mass/Vol] 23 mg/dL Normal 7-25 [facility] Comment on above: Performed By: #### L [id number] ####[facility] ([facility])[address] [place] [address] UREA NITROGEN/CREATININE (MASS RATIO) IN SER/PLAS 25.3 Normal [facility] Comment on above: Performed By: #### L [id number] ####[facility] ([facility])[address] [place] [address] CBC WITH AUTO DIFFERENTIALon 11-13-2023 Basophils (Bld) [#/Vol] 0.03 10*3/uL Normal 0.00-0.20 [facility] Comment on above: Performed By: #### L [id number] ####[facility] ([facility])[address] [place] [address] Basophils/100 WBC (Bld) 0.3 % Normal 0.0-1.0 [facility] Comment on above: Performed By: #### L [id number] ####[facility] ([facility])[address] [place] [address] Eosinophils (Bld) [#/Vol] 0.00 10*3/uL Normal 0.00-0.50 [facility] Comment on above: Performed By: #### L [id number] ####[facility] (BEAKER)[address] [place] [address] Eosinophils/100 WBC (Bld) 0.0 % Normal 0.0-6.0 [facility] Comment on above: Performed By: #### L [id number] ####[facility] ([facility])[address] [place] [address] Erythrocyte distribution width (RBC) [Ratio] 15.9 % High 11.5-15.0 [facility] Comment on above: Performed By: #### L [id number] ####[facility] ([facility])[address] [place] [address] ERYTHROCYTE MEAN CORPUSCULAR HEMOGLOBIN CONCENTRATION (G/DL) BY AUTOMATED 30.4 g/dL Low 32.0-35.0 [facility] Comment on above: Performed By: #### L [id number] ####[facility] ([facility] [place] [address] Hematocrit (Bld) [Volume fraction] 36.2 % Normal 36.0-48.0 [facility] Comment on above: Performed By: #### L [id number] ####[facility] (BEAKER)[address] [place] [address] Hemoglobin (Bld) [Mass/Vol] 11.0 g/dL Low 12.0-15.0 [facility] Comment on above: Performed By: #### L [id number] ####[facility] (BEAKER)[address] [place] [address] Immature granulocytes (Bld) [#/Vol] 0.09 10*3/uL Normal 0.00-0.20 [facility] Comment on above: Performed By: #### L [id number] ####[facility] (BEAKER)[address] [place] [address] Immature granulocytes/100 WBC (Bld) 0.9 % Normal 0.0-1.0 [facility] Comment on above: Performed By: #### L [id number] ####[facility] (BEAKER)[address] [place] [address] Lymphocytes (Bld) [#/Vol] 1.28 10*3/uL Normal 1.20-4.00 [facility] Comment on above: Performed By: #### L [id number] ####[facility] ([facility])[address] [place] [address] Lymphocytes/100 WBC (Bld) 12.4 % Low 20.0-45.0 [facility] Comment on above: Performed By: #### L [id number] ####[facility] [place] [address] MCH (RBC) [Entitic mass] 28.8 pg Normal 27.0-33.0 [facility] Comment on above: Performed By: #### L [id number] ####[facility] ([facility] [place] [address] MCV (RBC) [Entitic vol] 94.8 fL Normal 82.0-98.0 [facility] Comment on above: Performed By: #### L [id number] ####[facility] (BEAKER)[address] [place] [address] Monocytes (Bld) [#/Vol] 0.73 10*3/uL Normal 0.10-1.00 [facility] Comment on above: Performed By: #### L [id number] ####[facility] (BEAKER)[address] [place] [address] Monocytes/100 WBC (Bld) 7.1 % Normal 5.0-12.0 [facility] Comment on above: Performed By: #### L [id number] ####[facility] (BEAKER)[address] [place] [address] Neutrophils (Bld) [#/Vol] 8.21 10*3/uL High 1.60-7.60 [facility] Comment on above: Performed By: #### L [id number] ####[facility] ([facility] [place] [address] Neutrophils/100 WBC (Bld) 79.3 % High 40.0-72.0 [facility] Comment on above: Performed By: #### L [id number] ####[facility] ([facility] [place] [address] NRBC (PER 100 WBCS) BY AUTOMATED COUNT 0.0 % Normal 0 [facility] Comment on above: Performed By: #### L [id number] ####[facility] ([facility])[address] [place] [address] PLATELETS (10*3/UL) IN BLOOD AUTOMATED COUNT 262 10*3/uL Normal 150-400 [facility] Comment on above: Performed By: #### L [id number] ####[facility] ([facility])[address] [place], [place] [address] RBC (Bld) [#/Vol] 3.82 10*6/uL Normal 3.80-5.00 [facility] Comment on above: Performed By: #### L [id number] ####[facility] ([facility])[address] [place], [place] [address] WBC (Bld) [#/Vol] 10.34 10*3/uL Normal 4.00-10.60 [facility] Comment on above: Performed By: #### L [id number] ####[facility] ([facility])[address] [place] [address] CONSULTon 11-13-2023 CONSULT Normal [facility] CT FEMUR LEFT WO IV CONTRAST on 11-13-2023 CT FEMUR LEFT WO IV CONTRAST Invalid Interpretation Code [facility] HPon 11-13-2023 HP Normal [facility] MAGNESIUMon 11-13-2023 Magnesium [Mass/Vol] 1.8 mg/dL Low 1.9-2.7 [facility] Comment on above: Performed By: #### L [id number] ####[facility] ([facility])[address] [place] [address] PROTIME-INRon 11-13-2023 INR IN PPP BY COAGULATION ASSAY 1.79 High 0.90-1.10 [facility] Comment on above: Result Comment: ACCC P [...] CHEST 1995;108:[id number]. Performed By: #### L [id number] ####[facility] [employer])[address] [place] [address] PROTHROMBIN TIME (PT) IN PPP BY COAGULATION ASSAY 20.9 Seconds High 12.3-14.8 [facility] Comment on above: Performed By: #### L [id number] ####[facility] [employer])[address] [place] [address] TROPONIN Ion 11-13-2023 Troponin I.cardiac [Mass/Vol] 0.02 ng/mL Normal 0.00-0.04 [facility] Comment on above: Performed By: #### L [id number] ####[facility] ([employer])[address] [place] [address] TYPE AND SCREENon 11-13-2023 AB SCREEN Negative Normal [facility] Comment on above: Performed By: #### L [id number] ####[facility], ABO group Nom (Bld) O Normal [facility] Comment on above: Performed By: #### L [id number] ####[facility], RH TYPE IN BLOOD Positive Normal [facility] Comment on above: Performed By: #### L [id number] ####[facility], VIT D 25-[place] [employer] 2022 Vitamin D, 25-Hydroxy 35.9 ng/mL Normal 30.0-100.0 [facility] Comment on above: Result Comment: Jadyn min D deficiency has been defined by the [place] of Medicine and an Endocrine Society practice guideline as a level of serum 25-OH vitamin D less than 20 ng/mL (1,2). The Endocrine Society went on to further define vitamin D insufficiency as a level between 21 and 29 ng/mL (2). 1. IOM ([place] of Medicine). 2010. Dietary reference intakes for calcium and D. [place]: The National Academies Press. 2. Yamilex MF, Florecita CAMP, Stella OTTO, et al. Evaluation, treatment, and prevention of vitamin D deficiency: an Endocrine Society clinical practice guideline. JCEM. 2010; 96(7):1911-30. Performed By: #### V ITADLC #### [facility] [address] [place] [address] Dr. Ashwin Key CBC AUTO DIFFon 08-22-2022 BASO # 0.0 103/ul Normal 0.0-0.1 [facility] Comment on above: Performed By: #### C BC #### [facility] [address] [place] [address] Dr. Ashwin Key Basophils/100 WBC (Bld) 0.5 % Normal 0.2-2.[address] [facility] Comment on above: Performed By: #### C BC #### [facility] [address] [place] [address] Dr. Ashwin Key EO # 0.0 103/ul Normal 0.0-0.7 [facility] Comment on above: Performed By: #### C BC #### [facility] [address] [place] [address] Dr. Ashwin Key Eosinophils/100 WBC (Bld) 0.0 % Critically low 0.9-7.0 [facility] Comment on above: Performed By: #### C BC #### [facility] [address] [place] [address] Dr. Ashwin Key Erythrocyte distribution width (RBC) [Ratio] 14.7 % Normal 11.0-15.0 [facility] Comment on above: Performed By: #### C BC #### [facility] [address] [place] [address] Dr. Ashwin Key Hematocrit (Bld) [Volume fraction] 38.0 % Normal 36.0-48.0 [facility] Comment on above: Performed By: #### C BC #### [facility] [address] [place] [address] Dr. Ashwin Key Hemoglobin (Bld) [Mass/Vol] 11.5 g/dL Critically low 12.0-16.0 [facility] Comment on above: Performed By: #### C BC #### [facility] [address] [place] [address] Dr. Ashwin Key IG # 0.01 10e3/ul Normal 0.00-0.03 [facility] Comment on above: Performed By: #### C BC #### [facility] [address] [place] [address] Dr. Ashwin Key IG % 0.2 % Normal 0.0-0.5 [facility] Comment on above: Performed By: #### C BC #### [facility] [address] [place] [address] Dr. Ashwin Key LYMPH # 2.1 103/ul Normal 1.2-3.[address] [facility] Comment on above: Performed By: #### C BC #### [facility] [address] [place] [address] Dr. Ashwin Key Lymphocytes/100 WBC (Bld) 48.4 % Normal 20.5-60.0 [facility] Comment on above: Performed By: #### C BC #### [facility] [address] [place] [address] Dr. Ashwin Key MANUAL DIFF REQ NO Normal [facility] Comment on above: Performed By: #### C BC #### [facility] [address] [place] [address] Dr. Ashwin Key MCH (RBC) [Entitic mass] 28.8 pg Normal 26.7-34.0 [facility] Comment on above: Performed By: #### C BC #### [facility] [address] [place] [address] Dr. Ashwin Key MCHC (RBC) [Mass/Vol] 30.3 g/dL Normal 29.9-35.2 [facility] Comment on above: Performed By: #### C BC #### [facility] [address] [place] [address] Dr. Ashwin Key MCV (RBC) [Entitic vol] 95.0 fL Normal 81.0-99.0 [facility] Comment on above: Performed By: #### C BC #### [facility] [address] [place] [address] Dr. Ashwin Key MONO # 0.4 103/ul Normal 0.3-0.[address] [facility] Comment on above: Performed By: #### C BC #### [facility] [address] [place] [address] Dr. Ashwin Key Monocytes/100 WBC (Bld) 9.3 % Normal 1.7-12.0 [facility] Comment on above: Performed By: #### C BC #### [facility] [address] [place] [address] Dr. Ashwin Key NEUT # 1.8 103/ul Normal 1.4-6.[address] [facility] Comment on above: Performed By: #### C BC #### [facility] [address] [place] [address] Dr. Ashwin Key Neutrophils/100 WBC (Bld) 41.6 % Critically low 43.0-75.0 [facility] Comment on above: Performed By: #### C BC #### [facility] [address] [place] [address] Dr. Ashwin Key Platelet mean volume (Bld) [Entitic vol] 10.3 fL Normal 9.5-13.5 [facility] Comment on above: Performed By: #### C BC #### [facility] [address] [place] [address] Dr. Ashwin Key PLT 166 103/ul Normal 150-450 [facility] Comment on above: Performed By: #### C BC #### [facility] [address] [address] [address] Ashwin Key RBC 4.00 106/ul Critically low 4.20-5.40 [facility] Comment on above: Performed By: #### C BC #### [facility] [address] [place] [address] Dr. Ashwin Key WBC 4.4 103/ul Normal 4.0-11.0 [facility] Comment on above: Performed By: #### C BC #### [facility] [address] [place] [address] Dr. Ashwin Key GLYCOHEMOGLOBIN A1Con 2022 ADA RECOMMENDATION SEE BELOW Normal [facility] Comment on above: Result Comment: ADA RECOMMENDED LIMIT 4.0 - 6.0 ADA THERAPEUTIC TARGET < 7.0 ACTION SUGGESTED > 7.0 Performed By: #### A 1C #### [facility] [address] [place] [address] Dr. Ashwin Key Glucose [Mass/Vol] 105 mg/dL Normal [facility] Comment on above: Performed By: #### A 1C #### [facility] [address] [place] [address] Dr. Ashwin Key HbA1c (Bld) [Mass fraction] 5.3 % Normal 4.5-6.2 [facility] Comment on above: Performed By: #### A 1C #### [facility] [address] [place] [address] Dr. Ashwin Key LIPID PROFILEon 08-22-2022 CHOL-HDL RATIO NORM SEE BELOW Normal [facility] Comment on above: Result Comment: 3.3 - 4.4 LOW RISK 4.4 - 7.1 AVERAGE RISK 7.1 - 11.0 MODERATE RISK >11.0 HIGH RISK Performed By: #### U ACSIND, UMICRO #### [facility] [address] [address] [address] Ashwin Key Cholesterol [Mass/Vol] 103 mg/dL Normal <=200 [facility] Comment on above: Performed By: #### U ACSIND, UMICRO #### [facility] [address] [address] [address] Ashwin Key Cholesterol in HDL [Mass/Vol] 40 mg/dL Normal 40-60 [facility] Comment on above: Performed By: #### U ACSIND, UMICRO #### [facility] [address] [address] [address] Ashwin Key Cholesterol in LDL [Mass/Vol] 51.8 mg/dL Normal [facility] Comment on above: Performed By: #### U ACSIND, UMICRO #### [facility] [address] [address] [address] Ashwin Key Cholesterol.total/Cho lesterol in HDL [Mass ratio] 2.6 {ratio} Normal [facility] Comment on above: Performed By: #### U ACSIND, UMICRO #### [facility] [address] [address] [address] Ashwin Key HDL NORMAL > or = 60 mg/dl - LO W CARDIOVASCULAR RISK <40 mg/dl - HIGH CARDIOVASCULAR RISK Normal [facility] Comment on above: Performed By: #### U ACSIND, UMICRO #### [facility] [address] [address] [address] Ashwin Key LDL CALC NORMAL SEE BELOW Normal [facility] Comment on above: Result Comment: <100 mg/dl OPTIMAL 100 - 129 mg/dl NEAR OR ABOVE OPTIMAL 130 - 159 mg/dl BORDERLINE HIGH 160 - 189 mg/dl HIGH >190 mg/dl VERY HIGH Performed By: #### U ACSIND, UMICRO #### [facility] [address] [address] [address] Ashwin Key Triglyceride [Mass/Vol] 56 mg/dL Normal <=[address] [facility] Comment on above: Performed By: #### U ACSIND, UMICRO #### [facility] [address] [address] [address] Ashwin Key VLDL CALC 11.2 mg/dL Normal [facility] Comment on above: Performed By: #### U ACSJAZMIN UMICRO #### [facility] [address] [address] [address] Ashwin Key PROF 14(COMP METB)on 023 Albumin [Mass/Vol] 2.5 g/dL Critically low 3.4-5.[address] [facility] Comment on above: Performed By: #### U ACSJAZMIN UMICRO #### [facility] [address] [address] [address] Ashwin Key Albumin/Globulin [Mass ratio] 0.7 {ratio} Normal [facility] Comment on above: Performed By: #### U ACSJAZMIN UMICRO #### [facility] [address] [address] [address] Ashwin Key ALP [Catalytic activity/Vol] 110 U/L Normal 46-116 [facility] Comment on above: Performed By: #### U ACSJAZMIN UMICRO #### [facility] [address] [address] [address] Ashwin Key ALT [Catalytic activity/Vol] 16 U/L Normal 14-59 [facility] Comment on above: Performed By: #### U FILOMENA, UMICRO #### [facility] [address] [address] [address] Ashwin Key Anion gap [Moles/Vol] 9.8 mmol/L Normal [facility] Comment on above: Performed By: #### U ACSJAZMIN, UMICRO #### [facility] [address] [address] [address] Ashwin Key AST [Catalytic activity/Vol] 13 U/L Critically low 15-37 [facility] Comment on above: Performed By: #### U ACSJAZMIN, UMICRO #### [facility] [address] [address] [address] Ashwin Key Bilirubin [Mass/Vol] 0.4 mg/dL Normal 0.2-1.0 [facility] Comment on above: Performed By: #### U ACSJAZMIN UMICRO #### [facility] [address] [address] [address] Ashwin Key Calcium [Mass/Vol] 8.5 mg/dL Normal 8.5-10.[address] [facility] Comment on above: Performed By: #### U ACSJAZMIN UMICRO #### [facility] [address] [address] [address] Ashwin Key Chloride [Moles/Vol] 108 mmol/L Critically high 98-[address] [facility] Comment on above: Performed By: #### U ACSJAZMIN UMICRO #### [facility] [address] [place] [address] Dr. Ashwin Key CO2 [Moles/Vol] 31.0 mmol/L Normal 21.0-32.0 [facility] Comment on above: Performed By: #### U ACSJAZMIN UMICRO #### [facility] [address] [place] [address] Dr. Ashwin Key Creatinine [Mass/Vol] 0.91 mg/dL Normal 0.55-1.02 [facility] Comment on above: Performed By: #### U GURVINDER BUTTICRO #### [facility] [address] [place] [address] Dr. Ashwin Key EGFR-AF BELGIAN >60 Normal >=60 [facility] Comment on above: Performed By: #### U ACSJAZMIN UMICRO #### [facility] [address] [place] [address] Dr. Ashwin Key EGFR-NON AF BELGIAN 60 mL/min/1.73m2 Normal >=[address] [facility] Comment on above: Performed By: #### U ACSJAZMIN UMICRO #### [facility] [address] [place] [address] Dr. Ashwin Key Globulin (S) [Mass/Vol] 3.5 g/dL Normal [facility] Comment on above: Performed By: #### U ACSJAZMIN UMICRO #### [facility] [address] [place] [address] Dr. Ashwin Key Glucose [Mass/Vol] 99 mg/dL Normal 74-[address] [facility] Comment on above: Performed By: #### U FILOMENA UMICRO #### [facility] [address] [place] [address] Dr. Ashwin Key Potassium [Moles/Vol] 3.8 mmol/L Normal 3.5-5.1 [facility] Comment on above: Performed By: #### U FILOMENA UMICRO #### [facility] [address] [place] [address] Dr. Ashwin Key Protein [Mass/Vol] 6.0 g/dL Critically low 6.4-8.[address] [facility] Comment on above: Performed By: #### U FILOMENA UMICRO #### [facility] [address] [place] [address] Dr. Ashwin Key Sodium [Moles/Vol] 145 mmol/L Normal 136-[address] [facility] Comment on above: Performed By: #### U FILOMENA UMICRO #### [facility] [address] [place] [address] Dr. Ashwin Key Urea nitrogen [Mass/Vol] 24.0 mg/dL Critically high 7.0-18.0 [facility] Comment on above: Performed By: #### U FILOMENA UMICRO #### [facility] [address] [place] [address] Dr. Ashwin Key Urea nitrogen/Creatinine [Mass ratio] 26.4 mg/mg Normal [facility] Comment on above: Performed By: #### U FILOMENA, UMICRO #### [facility] [address] [place] [address] Dr. Ashwin Key TSHon 08-22-2022 TSH 5.573 uIU/mL Critically high 0.358-3.[address] [facility] Comment on above: Performed By: #### U FILOMENA, UMICRO #### [facility] [address] [place] [address] Dr. Ashwin Key CBC AUTO DIFFon 08-10-2022 BASO # 0.0 103/ul Normal 0.0-0.1 [facility] Comment on above: Performed By: #### C BC #### [facility] [address] [place] [address] Dr. Ashwin Key Basophils/100 WBC (Bld) 0.7 % Normal 0.2-2.0 [facility] Comment on above: Performed By: #### C BC #### [facility] [address] [place] [address] Dr. Ashwin Key EO # 0.0 103/ul Normal 0.0-0.7 [facility] Comment on above: Performed By: #### C BC #### [facility] [address] [place] [address] Dr. Ashwin Key Eosinophils/100 WBC (Bld) 0.0 % Critically low 0.9-7.0 [facility] Comment on above: Performed By: #### C BC #### [facility] [address] [place] [address] Dr. Ashwin Key Erythrocyte distribution width (RBC) [Ratio] 15.1 % Critically high 11.0-15.0 [facility] Comment on above: Performed By: #### C BC #### [facility] [address] [place] [address] Dr. Ashwin Key Hematocrit (Bld) [Volume fraction] 38.0 % Normal 36.0-48.0 [facility] Comment on above: Performed By: #### C BC #### [facility] [address] [place] [address] Dr. Ashwin Key Hemoglobin (Bld) [Mass/Vol] 11.4 g/dL Critically low 12.0-16.0 [facility] Comment on above: Performed By: #### C BC #### [facility] [address] [place] [address] Dr. Ashwin Key IG # 0.02 10e3/ul Normal 0.00-0.03 [facility] Comment on above: Performed By: #### C BC #### [facility] [address] [place] [address] Dr. Ashwin Key IG % 0.5 % Normal 0.0-0.5 [facility] Comment on above: Performed By: #### C BC #### [facility] [address] [place] [address] Dr. Ashwin Key LYMPH # 2.1 103/ul Normal 1.2-3.8 [facility] Comment on above: Performed By: #### C BC #### [facility] [address] [place] [address] Dr. Ashwin Key Lymphocytes/100 WBC (Bld) 48.4 % Normal 20.5-60.0 [facility] Comment on above: Performed By: #### C BC #### [facility] [address] [place] [address] Dr. Ashwin Key MANUAL DIFF REQ NO Normal [facility] Comment on above: Performed By: #### C BC #### [facility] [address] [place] [address] Dr. Ashwin Key MCH (RBC) [Entitic mass] 28.8 pg Normal 26.7-34.0 [facility] Comment on above: Performed By: #### C BC #### [facility] [address] [place] [address] Dr. Ashwin Key MCHC (RBC) [Mass/Vol] 30.0 g/dL Normal 29.9-35.2 [facility] Comment on above: Performed By: #### C BC #### [facility] [address] [place] [address] Dr. Ashwin Key MCV (RBC) [Entitic vol] 96.0 fL Normal 81.0-99.0 [facility] Comment on above: Performed By: #### C BC #### [facility] [address] [place] [address] Dr. Ashwin Key MONO # 0.3 103/ul Normal 0.3-0.8 [facility] Comment on above: Performed By: #### C BC #### [facility] [address] [place] [address] Dr. Ashwin Key Monocytes/100 WBC (Bld) 7.7 % Normal 1.7-12.0 [facility] Comment on above: Performed By: #### C BC #### [facility] [address] [address] [address] Ashwin Key NEUT # 1.8 103/ul Normal 1.4-6.5 [facility] Comment on above: Performed By: #### C BC #### [facility] [address] [address] [address] Ashwin Key Neutrophils/100 WBC (Bld) 42.7 % Critically low 43.0-75.0 [facility] Comment on above: Performed By: #### C BC #### [facility] [address] [address] [address] Ashwin Key Platelet mean volume (Bld) [Entitic vol] 10.1 fL Normal 9.5-13.5 [facility] Comment on above: Performed By: #### C BC #### [facility] [address] [address] [address] Ashwin Key PLT 156 103/ul Normal 150-450 [facility] Comment on above: Performed By: #### C BC #### [facility] [address] [address] [address] Ashwin Key RBC 3.96 106/ul Critically low 4.20-5.40 [facility] Comment on above: Performed By: #### C BC #### [facility] [address] [address] [address] Ashwin Key WBC 4.3 103/ul Normal 4.0-11.0 [facility] Comment on above: Performed By: #### C BC #### [facility] [address] [address] [address] Ashwin Key PROF CHEM 8 (BAS METB)on Anion gap [Moles/Vol] 13.3 mmol/L Normal [facility] Comment on above: Performed By: #### U ACSIND, UMICRO #### [facility] [address] [address] [address] Ashwin Key Calcium [Mass/Vol] 8.3 mg/dL Critically low 8.5-10.[address] [facility] Comment on above: Performed By: #### U ACSJAZMIN UMICRO #### [facility] [address] [address] [address] Ashwin Key Chloride [Moles/Vol] 111 mmol/L Critically high 98-107 [facility] Comment on above: Performed By: #### U FILOMENA UMICRO #### [facility] [address] [address] [address] Ashwin Key CO2 [Moles/Vol] 29.9 mmol/L Normal 21.0-32.0 [facility] Comment on above: Performed By: #### U GURVINDER BUTTICRO #### [facility] [address] [address] [address] Ashwin Key Creatinine [Mass/Vol] 0.92 mg/dL Normal 0.55-1.02 [facility] Comment on above: Performed By: #### GURVINDER DIEGOICRO #### [facility] [address] [address] [address] Ashwin Key EGFR-AF BELGIAN >60 Normal >=60 [facility] Comment on above: Performed By: #### U JOEY BUTTRO #### [facility] [address] [place] [address] Dr. Ashwin Key EGFR-NON AF BELGIAN 59 mL/min/1.73m2 Critically low >=60 [facility] [facility] Comment on above: Performed By: #### U GURVINDER BUTTICRO #### [facility] [address] [address] [address] Ashwin Key Glucose [Mass/Vol] 84 mg/dL Normal 74-[address] [facility] Comment on above: Performed By: #### U JOEY BUTTRO #### [facility] [address] [address] [address] Ashwin Key Potassium [Moles/Vol] 4.2 mmol/L Normal 3.5-5.1 [facility] Comment on above: Performed By: #### U GURVINDER BUTTICRO #### [facility] [address] [address] [address] Ashwin Key Sodium [Moles/Vol] 150 mmol/L Critically high 136-[address] [facility] Comment on above: Performed By: #### U ACSJAZMIN, UMICRO #### [facility] [address] [place] [address] Dr. Ashwin Key Urea nitrogen [Mass/Vol] 25.0 mg/dL Critically high 7.0-18.0 [facility] Comment on above: Performed By: #### U ACSJAZMIN, UMICRO #### [facility] [address] [place] [address] Dr. Ashwin Key Urea nitrogen/Creatinine [Mass ratio] 27.2 mg/mg Normal [facility] Comment on above: Performed By: #### U ACSJAZMIN, UMICRO #### [facility] [address] [place] [address] Dr. Ashwin Key TSHon 08-10-2022 TSH 3.430 uIU/mL Normal 0.358-3.740 [facility] Comment on above: Performed By: #### U ACSJAZMIN, UMICRO #### [facility] [address] [place] [address] Dr. Ashwin Key CULTURE URINEon 08-09-2022 CULTURE URINE Culture Observations : ANSON TO FOLLOW. Normal [facility] Comment on above: Performed By: #### U ACSJAZMIN, UMICRO #### [facility] [address] [place] [address] Dr. Ashwin Key UA (CLEAN/CATCH) PATIENT SERVICE SPECIALIST/MICRO I F IND.on 08-09-2022 Bilirubin Ql (U) Negative Normal NEGATIVE [facility] Comment on above: Performed By: #### U FILOMENA, UMICRO #### [facility] [address] [place] [address] Dr. Ashwin Key Clarity (U) CLEAR Normal CLEAR [facility] Comment on above: Performed By: #### U ACSJAZMIN, UMICRO #### [facility] [address] [place] [address] Dr. Ashwin Key Color (U) LT. YELLOW Normal YELLOW [facility] Comment on above: Performed By: #### U ACSIND, UMICRO #### [facility] [address] [address] [address] Ashwin Key Glucose Ql (U) Negative Normal NEGATIVE [facility] Comment on above: Performed By: #### U ACSIND, UMICRO #### [facility] [address] [address] [address] Ashwin Key Hemoglobin Ql (U) TRACE-INTACT Abnormal NEGATIVE [facility] Comment on above: Performed By: #### U ACSIND, UMICRO #### [facility] [address] [address] [address] Ashwin Key Ketones Ql (U) Negative Normal NEGATIVE [facility] Comment on above: Performed By: #### U ACSIND, UMICRO #### [facility] [address] [place] [address] Dr. Ashwin Key LEUKOCYTES TRACE Abnormal NEGATIVE [facility] Comment on above: Performed By: #### U ACSIND, UMICRO #### [facility] [address] [place] [address] Dr. Ashwin Key Nitrite Ql (U) Negative Normal NEGATIVE [facility] Comment on above: Performed By: #### U ACSIND, UMICRO #### [facility] [address] [place] [address] Dr. Ashwin Key pH (U) 5.5 [pH] Normal 5-9 [facility] Comment on above: Performed By: #### U ACSIND, UMICRO #### [facility] [address] [place] [address] Dr. Ashwin Key SPEC GRAVITY <=1.005 Abnormal 1.005-<=1.02 5 [facility] Comment on above: Performed By: #### U ACSIND, UMICRO #### [facility] [address] [place] [address] Dr. Ashwin Key UA PROTEIN Negative Normal NEGATIVE/ TRACE [facility] Comment on above: Performed By: #### U ACSIND, UMICRO #### [facility] [address] [place] [address] Dr. Ashwin Key UR MICRO IND INDICATED Normal [facility] Comment on above: Performed By: #### U ACSIND, UMICRO #### [facility] [address] [place] [address] Dr. Ashwin Key Urobilinogen Qn (U) 0.2 {Mercedes'U}/dL Normal 0.2 - 1. [address] [facility] Comment on above: Performed By: #### U ACSIND, UMICRO #### [facility] [address] [place] [address] Dr. Ashwin Key URINE MICROSCOPIC ONLYon AMORPHOUS CRYSTALS FEW Normal [facility] Comment on above: Performed By: #### U ACSIND, UMICRO #### [facility] [address] [place] [address] Dr. Ashwin Key BACTERIA MODERATE Abnormal NONE SEEN [facility] Comment on above: Performed By: #### U ACSIND, UMICRO #### [facility] [address] [place] [address] Dr. Ashwin Key Bacteria identified Cx Nom (U) INDICATED Normal [facility] Comment on above: Performed By: #### U ACSIND, UMICRO #### [facility] [address] [place] [address] Dr. Ashwin Key CAST NONE SEEN Normal NONE SEEN [facility] Comment on above: Performed By: #### U ACSIND, UMICRO #### [facility] [address] [place] [address] Dr. Ashwin Key Crystals LM Nom (Urine sed) SEEN Abnormal NONE SEEN [facility] Comment on above: Performed By: #### U ACSIND, UMICRO #### [facility] [address] [place] [address] Dr. Ashwin Key Epithelial cells LM Ql (Urine sed) MANY Abnormal NONE SEEN /RARE [facility] Comment on above: Performed By: #### U ACSIND, UMICRO #### [facility] [address] [place] [address] Dr. Ashwin Key MUCOUS NONE SEEN Normal NONE SEEN [facility] Comment on above: Performed By: #### U ACSIND, ICRO #### [facility] [address] [place] [address] Dr. Ashwin Key RBC 0-2 Normal 0-[address] [facility] Comment on above: Performed By: #### U ACSJAZMIN UMICRO #### [facility] [address] [address] [address] Ashwin Key WBC 2-5 Abnormal NONE SEEN The [facility] Comment on above: Performed By: #### U FILOMENA ICRO #### [facility] [address] [place] [address] Dr. Ashwin Key CBC AUTO DIFFon 07-11-2022 BASO # 0.0 103/ul Normal 0.0-0.1 [facility] Comment on above: Performed By: #### C BC #### [facility] [address] [place] [address] Dr. Ashwin Key Basophils/100 WBC (Bld) 0.5 % Normal 0.2-2.0 [facility] Comment on above: Performed By: #### C BC #### [facility] [address] [place] [address] Dr. Ashwin Key EO # 0.0 103/ul Normal 0.0-0.7 [facility] Comment on above: Performed By: #### C BC #### [facility] [address] [place] [address] Dr. Ashwin Key Eosinophils/100 WBC (Bld) 0.0 % Critically low 0.9-7.0 [facility] Comment on above: Performed By: #### C BC #### [facility] [address] [place] [address] Dr. Ashwin Key Erythrocyte distribution width (RBC) [Ratio] 14.5 % Normal 11.0-15.[address] [facility] Comment on above: Performed By: #### C BC #### [facility] [address] [place] [address] Dr. Ashwin Key Hematocrit (Bld) [Volume fraction] 42.5 % Normal 36.0-48.[address] [facility] Comment on above: Performed By: #### C BC #### [facility] [address] [place] [address] Dr. Ashwin Key Hemoglobin (Bld) [Mass/Vol] 13.1 g/dL Normal 12.0-16.0 [facility] Comment on above: Performed By: #### C BC #### [facility] [address] [place] [address] Dr. Ashwin Key IG # 0.02 10e3/ul Normal 0.00-0.[address] [facility] Comment on above: Performed By: #### C BC #### [facility] [address] [place] [address] Dr. Ashwin Key IG % 0.5 % Normal 0.0-0.5 [facility] Comment on above: Performed By: #### C BC #### [facility] [address] [place] [address] Dr. Ashwin Key LYMPH # 2.1 103/ul Normal 1.2-3.[address] [facility] Comment on above: Performed By: #### C BC #### [facility] [address] [place] [address] Dr. Ashwin Key Lymphocytes/100 WBC (Bld) 48.2 % Normal 20.5-60.0 [facility] Comment on above: Performed By: #### C BC #### [facility] [address] [place] [address] Dr. Ashwin Key MANUAL DIFF REQ NO Normal [facility] Comment on above: Performed By: #### C BC #### [facility] [address] [place] [address] Dr. Ashwin Key MCH (RBC) [Entitic mass] 28.4 pg Normal 26.7-34.[address] [facility] Comment on above: Performed By: #### C BC #### [facility] [address] [place] [address] Dr. Ashwin Key MCHC (RBC) [Mass/Vol] 30.8 g/dL Normal 29.9-35.[address] [facility] Comment on above: Performed By: #### C BC #### [facility] [address] [place] [address] Dr. Ashwin Key MCV (RBC) [Entitic vol] 92.2 fL Normal 81.0-99.[address] [facility] Comment on above: Performed By: #### C BC #### [facility] [address] [place] [address] Dr. Ashwin Key MONO # 0.4 103/ul Normal 0.3-0.[address] [facility] Comment on above: Performed By: #### C BC #### [facility] [address] [place] [address] Dr. Ashwin Key Monocytes/100 WBC (Bld) 8.7 % Normal 1.7-12.[address] [facility] Comment on above: Performed By: #### C BC #### [facility] [address] [place] [address] Dr. Ashwin Key NEUT # 1.8 103/ul Normal 1.4-6.5 [facility] Comment on above: Performed By: #### C BC #### [facility] [address] [place] [address] Dr. Ashwin Key Neutrophils/100 WBC (Bld) 42.1 % Critically low 43.0-75.[address] [facility] Comment on above: Performed By: #### C BC #### [facility] [address] [place] [address] Dr. Ashwin Key Platelet mean volume (Bld) [Entitic vol] 10.4 fL Normal 9.5-13.[address] [facility] Comment on above: Performed By: #### C BC #### [facility] [address] [place] [address] Dr. Ashwin Key PLT 159 103/ul Normal 150-[address] [facility] Comment on above: Performed By: #### C BC #### [facility] [address] [place] [address] Dr. Ashwin Key RBC 4.61 106/ul Normal 4.20-5.[address] [facility] Comment on above: Performed By: #### C BC #### [facility] [address] [place] [address] Dr. Ashwin Key WBC 4.3 103/ul Normal 4.0-11.0 [facility] Comment on above: Performed By: #### C BC #### [facility] [address] [place] [address] Dr. Ashwin Key PROF CHEM 8 (BAS METB)on Anion gap [Moles/Vol] 10.2 mmol/L Normal [facility] Comment on above: Performed By: #### B MP #### [facility] [address] [place] [address] Dr. Ashwin Key Calcium [Mass/Vol] 8.5 mg/dL Normal 8.5-10.[address] [facility] Comment on above: Performed By: #### B MP #### [facility] [address] [place] [address] Dr. Ashwin Key Chloride [Moles/Vol] 104 mmol/L Normal 98-107 [facility] Comment on above: Performed By: #### B MP #### [facility] [address] [place] [address] Dr. Ashwin Key CO2 [Moles/Vol] 32.6 mmol/L Critically high 21.0-32.0 [facility] Comment on above: Performed By: #### B MP #### [facility] [address] [place] [address] Dr. Ashwin Key Creatinine [Mass/Vol] 0.91 mg/dL Normal 0.55-1.02 [facility] Comment on above: Performed By: #### B MP #### [facility] [address] [place] [address] Dr. Ashwin Key EGFR-AF BELGIAN >60 Normal >=60 [facility] Comment on above: Performed By: #### B MP #### [facility] [address] [place] [address] Dr. Ashwin Key EGFR-NON AF BELGIAN =60 Normal >=[address] [facility] Comment on above: Performed By: #### B MP #### [facility] [address] [place] [address] Dr. Ashwin Key Glucose [Mass/Vol] 89 mg/dL Normal 74-106 [facility] Comment on above: Performed By: #### B MP #### [facility] [address] [address] [address] Ashwin Key Potassium [Moles/Vol] 3.8 mmol/L Normal 3.5-5.1 [facility] Comment on above: Performed By: #### B MP #### [facility] [address] [address] [address] Ashwin Key Sodium [Moles/Vol] 143 mmol/L Normal 136-[address] [facility] Comment on above: Performed By: #### B MP #### [facility] [address] [place] [address] Dr. Ashwin Key Urea nitrogen [Mass/Vol] 26.0 mg/dL Critically high 7.0-18.0 [facility] Comment on above: Performed By: #### B MP #### [facility] [address] [place] [address] Dr. Ashwin Key Urea nitrogen/Creatinine [Mass ratio] 28.6 mg/mg Normal [facility] Comment on above: Performed By: #### B MP #### [facility] [address] [place] [address] Dr. Ashwin Key CULTURE URINEon 02-11-2022 CULTURE [...] oxazole <=20 S F Normal [facility] Comment on above: Performed By: #### U ACSIND, UMICRO #### [facility] [address] [place] [address] Dr. Ashwin Key CBC AUTO DIFFon 02-07-2022 BASO # 0.0 103/ul Normal 0.0-0.1 [facility] Comment on above: Performed By: #### C BC #### [facility] [address] [address] [address] Ashwin Key Basophils/100 WBC (Bld) 0.5 % Normal 0.2-2.0 [facility] Comment on above: Performed By: #### C BC #### [facility] [address] [place] [address] Dr. Ashwin Key EO # 0.0 103/ul Normal 0.0-0.[address] [facility] Comment on above: Performed By: #### C BC #### [facility] [address] [place] [address] Dr. Ashwin Key Eosinophils/100 WBC (Bld) 0.0 % Critically low 0.9-7.0 [facility] Comment on above: Performed By: #### C BC #### [facility] [address] [place] [address] Dr. Ashwin Key Erythrocyte distribution width (RBC) [Ratio] 13.4 % Normal 11.0-15.0 [facility] Comment on above: Performed By: #### C BC #### [facility] [address] [place] [address] Dr. Ashwin Key Hematocrit (Bld) [Volume fraction] 46.8 % Normal 36.0-48.0 [facility] Comment on above: Performed By: #### C BC #### [facility] [address] [place] [address] Dr. Ashwin Key Hemoglobin (Bld) [Mass/Vol] 14.2 g/dL Normal 12.0-16.[address] [facility] Comment on above: Performed By: #### C BC #### [facility] [address] [place] [address] Dr. Ashwin Key IG # 0.05 10e3/ul Critically high 0.00-0.03 [facility] Comment on above: Performed By: #### C BC #### [facility] [address] [place] [address] Dr. Ashwin Key IG % 0.6 % Critically high 0.0-0.5 [facility] Comment on above: Performed By: #### C BC #### [facility] [address] [place] [address] Dr. Ashwin Key LYMPH # 2.0 103/ul Normal 1.2-3.[address] [facility] Comment on above: Performed By: #### C BC #### [facility] [address] [place] [address] Dr. Ashwin Key Lymphocytes/100 WBC (Bld) 22.9 % Normal 20.5-60.[address] [facility] Comment on above: Performed By: #### C BC #### [facility] [address] [place] [address] Dr. Ashwin Key MANUAL DIFF REQ NO Normal [facility] Comment on above: Performed By: #### C BC #### [facility] [address] [place] [address] Dr. Ashwin Key MCH (RBC) [Entitic mass] 29.1 pg Normal 26.7-34.[address] [facility] Comment on above: Performed By: #### C BC #### [facility] [address] [place] [address] Dr. Ashwin Key MCHC (RBC) [Mass/Vol] 30.3 g/dL Normal 29.9-35.[address] [facility] Comment on above: Performed By: #### C BC #### [facility] [address] [place] [address] Dr. Ashwin Key MCV (RBC) [Entitic vol] 95.9 fL Normal 81.0-99.[address] [facility] Comment on above: Performed By: #### C BC #### [facility] [address] [place] [address] Dr. Ashwin Key MONO # 0.9 103/ul Critically high 0.3-0.8 [facility] Comment on above: Performed By: #### C BC #### [facility] [address] [place] [address] Dr. Ashwin Key Monocytes/100 WBC (Bld) 10.9 % Normal 1.7-12.0 [facility] Comment on above: Performed By: #### C BC #### [facility] [address] [place] [address] Dr. Ashwin Key NEUT # 5.6 103/ul Normal 1.4-6.5 [facility] Comment on above: Performed By: #### C BC #### [facility] [address] [place] [address] Dr. Ashwin Key Neutrophils/100 WBC (Bld) 65.1 % Normal 43.0-75.0 [facility] Comment on above: Performed By: #### C BC #### [facility] [address] [place] [address] Dr. Ashwin Key Platelet mean volume (Bld) [Entitic vol] 10.6 fL Normal 9.5-13.5 [facility] Comment on above: Performed By: #### C BC #### [facility] [address] [place] [address] Dr. Ashwin Key PLT 203 103/ul Normal 150-450 [facility] Comment on above: Performed By: #### C BC #### [facility] [address] [place] [address] Dr. Ashwin Key RBC 4.88 106/ul Normal 4.20-5.40 [facility] Comment on above: Performed By: #### C BC #### [facility] [address] [place] [address] Dr. Ashwin Key WBC 8.6 103/ul Normal 4.0-11.0 [facility] Comment on above: Performed By: #### C BC #### [facility] [address] [place] [address] Dr. Ashwin Key PROF 14(COMP METB)on 022 Albumin [Mass/Vol] 3.6 g/dL Normal 3.4-5.[address] [facility] Comment on above: Performed By: #### U ACSIND, UMICRO #### [facility] [address] [place] [address] Dr. Ashwin Key Albumin/Globulin [Mass ratio] 1.2 {ratio} Normal [facility] Comment on above: Performed By: #### U JOEY BUTTRO #### [facility] [address] [place] [address] Dr. Ashwin Key ALP [Catalytic activity/Vol] 128 U/L Critically high 46-116 [facility] Comment on above: Performed By: #### JOEY DIEGORO #### [facility] [address] [place] [address] Dr. Ashwin Key ALT [Catalytic activity/Vol] 20 U/L Normal 14-59 [facility] Comment on above: Performed By: #### U JOEY BUTTRO #### [facility] [address] [place] [address] Dr. Ashwin Key Anion gap [Moles/Vol] 12.0 mmol/L Normal [facility] Comment on above: Performed By: #### JOEY DIEGORO #### [facility] [address] [place] [address] Dr. Ashwin Key AST [Catalytic activity/Vol] 18 U/L Normal 15-37 [facility] Comment on above: Performed By: #### JOEY DIEGORO #### [facility] [address] [place] [address] Dr. Ashwin Key Bilirubin [Mass/Vol] 0.8 mg/dL Normal 0.2-1.0 [facility] Comment on above: Performed By: #### JOEY DIEGORO #### [facility] [address] [place] [address] Dr. Ashwin Key Calcium [Mass/Vol] 8.1 mg/dL Critically low 8.5-10.1 [facility] Comment on above: Performed By: #### JOEY DIEGORO #### [facility] [address] [place] [address] Dr. Ashwin Key Chloride [Moles/Vol] 99 mmol/L Normal 98-107 [facility] Comment on above: Performed By: #### U JOEY BUTTRO #### [facility] [address] [address] [address] Ashwin Key CO2 [Moles/Vol] 33.7 mmol/L Critically high 21.0-32.0 [facility] Comment on above: Performed By: #### U ACSIND, UMICRO #### [facility] [address] [address] [address] Ashwin Key Creatinine [Mass/Vol] 1.07 mg/dL Critically high 0.55-1.02 [facility] Comment on above: Performed By: #### U ACSIND, UMICRO #### [facility] [address] [address] [address] Ashwin Key EGFR-AF BELGIAN 60 mL/min/1.73m2 Normal >=60 [facility] Comment on above: Performed By: #### U ACSIND, UMICRO #### [facility] [address] [address] [address] Ashwin Key EGFR-NON AF BELGIAN 50 mL/min/1.73m2 Critically low >=60 [facility] Comment on above: Performed By: #### U ACSIND, UMICRO #### [facility] [address] [address] [address] Ashwin Key Globulin (S) [Mass/Vol] 3.0 g/dL Normal [facility] Comment on above: Performed By: #### U ACSIND, UMICRO #### [facility] [address] [address] [address] Ashwin Key Glucose [Mass/Vol] 76 mg/dL Normal 74-[address] [facility] Comment on above: Performed By: #### U ACSIND, UMICRO #### [facility] [address] [address] [address] Ashwin Key Potassium [Moles/Vol] 4.7 mmol/L Normal 3.5-5.1 [facility] Comment on above: Performed By: #### U ACSIND, UMICRO #### [facility] [address] [address] [address] Ashwin Key Protein [Mass/Vol] 6.6 g/dL Normal 6.4-8.[address] [facility] Comment on above: Performed By: #### U JOEY BUTTRO #### [facility] [address] [place] [address] Dr. Aswhin Key Sodium [Moles/Vol] 140 mmol/L Normal 136-[address] [facility] Comment on above: Performed By: #### U JOEY BUTTRO #### [facility] [address] [place] [address] Dr. Ashwin Key Urea nitrogen [Mass/Vol] 31.0 mg/dL Critically high 7.0-18.0 [facility] Comment on above: Performed By: #### U JOEY BUTTRO #### [facility] [address] [place] [address] Dr. Ashwin Key Urea nitrogen/Creatinine [Mass ratio] 29.0 mg/mg Normal [facility] [facility] Comment on above: Performed By: #### U JOEY BUTTRO #### [facility] [address] [place] [address] Dr. Ashwin Key UA RANDOMon 02-07-2022 Bilirubin Ql (U) Negative Normal NEGATIVE [facility] Comment on above: Performed By: #### U A #### [facility] [address] [place] [address] Dr. Ashwin Key Clarity (U) CLEAR Normal CLEAR [facility] Comment on above: Performed By: #### U A #### [facility] [address] [place] [address] Dr. Ashwin Key Color (U) LT. YELLOW Normal YELLOW [facility] Comment on above: Performed By: #### U A #### [facility] [address] [place] [address] Dr. Ashwin Key Glucose Ql (U) Negative Normal NEGATIVE [facility] Comment on above: Performed By: #### U A #### [facility] [address] [place] [address] Dr. Ashwin Key Hemoglobin Ql (U) Negative Normal NEGATIVE [facility] Comment on above: Performed By: #### U A #### [facility] [address] [address] [address] Ashwin Key Ketones Ql (U) TRACE Abnormal NEGATIVE [facility] Comment on above: Performed By: #### U A #### [facility] [address] [place] [address] Dr. Ashwin Key LEUKOCYTES SMALL Abnormal NEGATIVE [facility] Comment on above: Performed By: #### U A #### [facility] [address] [address] [address] Ashwin Key Nitrite Ql (U) Positive Abnormal NEGATIVE [facility] Comment on above: Performed By: #### U A #### [facility] [address] [place] [address] Dr. Ashwin Key pH (U) 6.0 [pH] Normal 5-9 [facility] Comment on above: Performed By: #### U A #### [facility] [address] [place] [address] Dr. Ashwin Key SPEC GRAVITY 1.020 Normal 1.005-<=1.02 5 [facility] Comment on above: Performed By: #### U A #### [facility] [address] [place] [address] Dr. Ashwin Key UA PROTEIN Negative Normal NEGATIVE/ TRACE [facility] Comment on above: Performed By: #### U A #### [facility] [address] [place] [address] Dr. Ashwin Key Urobilinogen Qn (U) 1.0 {Mercedes'U}/dL Normal 0.2 - 1. 0 [facility] Comment on above: Performed By: #### U A #### [facility] [address] [place] [address] Dr. Ashwin Key K (Potassium)on 01-30-2017 Potassium molar conc 4.2 mmol/L Normal 3.7-5.3 [facility] Comment on above: Result Comment: Perf ormed at [address] [place] [address] [phone] Performed By: #### K ####[address] [id number] Encounters Encounter Date Encounter Type Care Provider Facility Start: 12-22-2023 End: [facility] Start: 12-21-2023 ambulatory COLTEN LAYTON [facility] Start: 12-06-2023 Evaluation and management of inpatient HARSHA KIRBY [facility] Start: 12-05-2023 Evaluation and management of inpatient DONUMAIR YUSUF [facility] Start: 12-04-2023 Emergency department patient visit DOE KARL [facility] Start: 12-04-2023 End: 12-06-2023 Evaluation and management of inpatient DARLENE MOORE [facility] Start: 11-20-2023 Evaluation and management of inpatient OLIMPIA [facility] Start: 11-15-2023 Evaluation and management of inpatient [facility] Start: 11-15-2023 Evaluation and management of inpatient [facility] Start: 11-15-2023 Evaluation and management of inpatient ESSIE [facility] Start: 11-14-2023 Evaluation and management of inpatient [facility] Start: 11-14-2023 Evaluation and management of inpatient YUE BRODY [facility] Start: 11-13-2023 Evaluation and management of inpatient OLIM[place]IA [facility] Start: 11-13-2023 End: 11-22-2023 Evaluation and management of inpatient KASSANDRAMEMO PEREZ [facility] Start: 08-22-2022 End: 08-22-[address] PRANAV CAMPOS Facility:[facility] Start: 08-12-2022 End: 08-12-[address] DOCTOR MONTANO Facility:[facility] Start: 08-10-2022 End: 08-10-[address] PRANAV CAMPOS Facility:[facility] Start: 07-11-2022 End: 07-11-[address] PRANAV CAMPOS Facility:[facility] Start: 02-07-2022 End: 02-07-[address] PRANAV CAMPOS Facility:[facility] Start: 01-31-2017 End: 02-01-2017 Ambulatory NEPTALI [facility] Start: 01-30-2017 End: 01-31-2017 Ambulatory NEPTALI [facility] Procedures Date Procedure Procedure Detail Performing Clinician Start: 12-22-2023 Follow-up visit Follow-up NINO SMITH Start: 01-30-2017 POTASSIUM NEPTALI DIEGO ROHIT Payers Date Payer Category Payer Medicare [id number] 2016 Medicare [id number] 1960 Medicaid [id number] 1960 Medicare [id number] 1945 Unknown [id number] [id number] 1945 Unknown [id number] [id number] [id number] 1945 Unknown [id number] [id number] [id number] 1944 Unknown [id number] 2.16.84 [id number] 1945 Unknown [id number] 2.16.84 [id number] Clinical Notes 11-14-2023 to 12-22-2023 Note Date & Type Note Facility 12-22-2023 Note [facility] 12-06-2023 Note [facility] 12-06-2023 Note [facility] 12-06-2023 Note [facility] 12-06-2023 Note [facility] 12-06-2023 Note [facility] 12-05-2023 Note [facility] 12-05-2023 Note [facility] 12-05-2023 Note [facility] 12-04-2023 Note [facility] 11-22-2023 Note [facility] 11-21-2023 Note [facility] 11-21-[address] [facility] and advised of possible discharge today. [facility] 11-21-2023 Note [facility] 11-20-2023 Note [facility] 11-20-2023 Note [facility] 11-20-2023 Note [facility] 11-20-2023 Note [facility] 11-20-2023 Note [facility] 11-19-2023 Note [facility] 11-19-2023 Note [facility] 11-19-2023 Note [facility] 11-18-2023 Note [facility] 11-18-2023 Note [facility] 11-17-2023 Note [facility] 11-17-2023 Note [facility] 11-17-[address] [facility]. Unclear at this point if pt will need pre-cert to return. UPDATE 10:40AM- Advised by [facility] pt is a bed hold and no pre-cert is necessary. [facility] 11-17-2023 Note [facility] 11-17-2023 Note [facility] 11-16-2023 Note [facility] 11-15-2023 Note [facility] 11-15-2023 Note [facility] 11-15-2023 Note [facility] 11-15-2023 Note [facility] 11-15-2023 Note [facility] 11-14-2023 Note [facility] 11-14-2023 Note [facility] 11-14-2023 Note [facility] 11-14-2023 Note [facility] 11-14-2023 Note [facility] 11-14-2023 Note [facility] 11-14-2023 Note [facility] Summary Purpose Family History No Family [...] pital DATE CREATED AUTHOR AUTHOR'S ORGANIZ ATION 12/23/2023 [facility] FOR RECORDS PERTAINING TO PATIENTS WHO [...] BE BASED ON THE PRIMARY CLINICAL RECORDS. [facility] [employer] provides no warranty or guarantee of the accuracy or completeness of information in this document.
[2023-12-27 10:58] LABS: C Reactive Protein 7.32 mg/dL (<=0.50); Calcium 7.5 mg/dL (8.5-10.1); Chloride 105 mmol/L (98-107); Estimated GFR (African America >60 (>=60); Estimated GFR (Non-African Ame 56 (>=60); Glucose 109 mg/dL (74-106); Sodium 141 mmol/L (136-145)
== END 2023-12-27 09:17 | disposition home or self-care (01) ==
LOC: LAB 09:16
PROVIDERS: PCP Family Medicine; Visit Provider Family Medicine
DX: A41.9 Sepsis, unspecified organism (principal)
CPT/HCPCS: 36415; 80048; 82565; 85025; 86140

== ENCOUNTER 2024-01-03 04:19 | Outpatient (RCR) | payer MEDICARE, MEDICAID, SELFPAY ==
[2024-01-03 10:41] LABS: Basophils Absolute Auto 0.1 10^3/uL (0.0-0.1); Basophils Percent Auto 0.7 % (0.2-2.0); Hematocrit 33.2 % (36.0-48.0); Hemoglobin 9.9 g/dL (12.0-16.0); Immature Granulocytes Abs Auto 0.08 10^3/uL (0.00-0.03); Immature Granulocytes Pct Auto 1.2 % (0.0-0.5); Lymphocytes Absolute Auto 1.6 10^3/uL (1.2-3.8); Lymphocytes Percent Auto 22.9 % (20.5-60.0); Mean Corpuscular HGB Conc 29.8 g/dL (29.9-35.2); Mean Corpuscular Hemoglobin 30.2 pg (26.7-34.0); Mean Corpuscular Volume 101.2 fL (81.0-99.0); Monocytes Absolute Auto 0.6 10^3/uL (0.3-0.8); Monocytes Percent Auto 8.7 % (1.7-12.0); Neutrophils Absolute Auto 4.5 10^3/uL (1.4-6.5); Neutrophils Percent Auto 66.5 % (43.0-75.0); Platelet Count 317 10^3/uL (150-450); Red Blood Count 3.28 10^6/uL (4.20-5.40); Red Cell Distribution Width 17.2 % (11.0-15.0); White Blood Count 6.8 10^3/uL (4.0-11.0)
[2024-01-03 11:16] LABS: Anion Gap 8.5; BUN Creatinine Ratio 26.1; C Reactive Protein 5.53 mg/dL (<=0.50); Calcium 7.4 mg/dL (8.5-10.1); Carbon Dioxide 31.1 mmol/L (21.0-32.0); Chloride 104 mmol/L (98-107); Estimated GFR (African America >60 (>=60); Estimated GFR (Non-African Ame 59 (>=60); Glucose 94 mg/dL (74-106); Sodium 141 mmol/L (136-145)
[2024-01-03 11:46] LABS: Potassium 2.6 mmol/L (3.5-5.1)
== END 2024-01-13 23:59 | disposition home or self-care (01) ==
LOC: LAB 04:19
PROVIDERS: PCP Family Medicine; Visit Provider Family Medicine
DX: A41.9 Sepsis, unspecified organism (principal)
CPT/HCPCS: 36415; 80048; 82565; 85025; 86140

== ENCOUNTER 2024-01-05 02:41 | Outpatient (RCR) | payer MEDICARE, MEDICAID, SELFPAY ==
[2024-01-05 07:54] LABS: Basophils Percent Auto 0.6 % (0.2-2.0); Eosinophils Percent Auto 0.2 % (0.9-7.0); Hematocrit 31.2 % (36.0-48.0); Hemoglobin 9.4 g/dL (12.0-16.0); Immature Granulocytes Abs Auto 0.08 10^3/uL (0.00-0.03); Immature Granulocytes Pct Auto 1.2 % (0.0-0.5); Lymphocytes Absolute Auto 1.5 10^3/uL (1.2-3.8); Lymphocytes Percent Auto 22.9 % (20.5-60.0); Mean Corpuscular HGB Conc 30.1 g/dL (29.9-35.2); Mean Corpuscular Hemoglobin 30.1 pg (26.7-34.0); Monocytes Absolute Auto 0.6 10^3/uL (0.3-0.8); Neutrophils Absolute Auto 4.3 10^3/uL (1.4-6.5); Neutrophils Percent Auto 66.1 % (43.0-75.0); Platelet Count 277 10^3/uL (150-450); Red Blood Count 3.12 10^6/uL (4.20-5.40); Red Cell Distribution Width 17.1 % (11.0-15.0); White Blood Count 6.5 10^3/uL (4.0-11.0)
[2024-01-05 08:16] LABS: Anion Gap 6.7; BUN Creatinine Ratio 36.1; Calcium 7.4 mg/dL (8.5-10.1); Carbon Dioxide 32.3 mmol/L (21.0-32.0); Chloride 107 mmol/L (98-107); Estimated GFR (African America >60 (>=60); Estimated GFR (Non-African Ame >60 (>=60); Glucose 79 mg/dL (74-106); Sodium 143 mmol/L (136-145)
[2024-01-10 09:04] LABS: Basophils Percent Auto 0.5 % (0.2-2.0); Hematocrit 33.3 % (36.0-48.0); Hemoglobin 9.9 g/dL (12.0-16.0); Immature Granulocytes Abs Auto 0.06 10^3/uL (0.00-0.03); Immature Granulocytes Pct Auto 0.8 % (0.0-0.5); Lymphocytes Absolute Auto 1.7 10^3/uL (1.2-3.8); Lymphocytes Percent Auto 22.9 % (20.5-60.0); Mean Corpuscular HGB Conc 29.7 g/dL (29.9-35.2); Mean Corpuscular Hemoglobin 29.9 pg (26.7-34.0); Mean Corpuscular Volume 100.6 fL (81.0-99.0); Mean Platelet Volume 10.1 fL (9.5-13.5); Monocytes Absolute Auto 0.6 10^3/uL (0.3-0.8); Monocytes Percent Auto 7.8 % (1.7-12.0); Platelet Count 271 10^3/uL (150-450); Red Blood Count 3.31 10^6/uL (4.20-5.40); Red Cell Distribution Width 16.9 % (11.0-15.0); White Blood Count 7.4 10^3/uL (4.0-11.0)
[2024-01-10 09:28] LABS: Anion Gap 8.4; BUN Creatinine Ratio 32.6; Calcium 7.8 mg/dL (8.5-10.1); Carbon Dioxide 32.1 mmol/L (21.0-32.0); Chloride 105 mmol/L (98-107); Estimated GFR (African America >60 (>=60); Estimated GFR (Non-African Ame >60 (>=60); Glucose 82 mg/dL (74-106); Potassium 3.5 mmol/L (3.5-5.1); Sodium 142 mmol/L (136-145)
[2024-01-10 09:32] LABS: C Reactive Protein 5.63 mg/dL (<=0.50)
== END 2024-01-13 23:59 | disposition home or self-care (01) ==
LOC: LAB 02:41
PROVIDERS: PCP Family Medicine; Visit Provider Nurse Practitioner Family
DX: A41.9 Sepsis, unspecified organism (principal)
CPT/HCPCS: 36415; 80048; 82565; 84520; 85025; 86140

== ENCOUNTER 2024-01-17 06:51 | Outpatient (RCR) | payer MEDICARE, MEDICAID, SELFPAY ==
[2024-01-17 09:40] LABS: Basophils Percent Auto 0.3 % (0.2-2.0); Hematocrit 34.7 % (36.0-48.0); Hemoglobin 10.4 g/dL (12.0-16.0); Immature Granulocytes Pct Auto 0.7 % (0.0-0.5); Lymphocytes Absolute Auto 0.6 10^3/uL (1.2-3.8); Lymphocytes Percent Auto 4.4 % (20.5-60.0); Mean Corpuscular Hemoglobin 30.1 pg (26.7-34.0); Mean Corpuscular Volume 100.6 fL (81.0-99.0); Mean Platelet Volume 10.2 fL (9.5-13.5); Monocytes Absolute Auto 0.8 10^3/uL (0.3-0.8); Monocytes Percent Auto 5.3 % (1.7-12.0); Neutrophils Absolute Auto 12.9 10^3/uL (1.4-6.5); Neutrophils Percent Auto 89.3 % (43.0-75.0); Platelet Count 265 10^3/uL (150-450); Red Blood Count 3.45 10^6/uL (4.20-5.40); Red Cell Distribution Width 16.3 % (11.0-15.0); White Blood Count 14.5 10^3/uL (4.0-11.0)
[2024-01-17 10:43] LABS: Anion Gap 5.4; BUN Creatinine Ratio 31.9; C Reactive Protein 4.89 mg/dL (<=0.50); Calcium 7.4 mg/dL (8.5-10.1); Carbon Dioxide 37.2 mmol/L (21.0-32.0); Chloride 103 mmol/L (98-107); Estimated GFR (African America >60 (>=60); Estimated GFR (Non-African Ame 60 (>=60); Glucose 86 mg/dL (74-106); Potassium 3.6 mmol/L (3.5-5.1); Sodium 142 mmol/L (136-145)
[2024-01-24 10:39] LABS: Basophils Percent Auto 0.6 % (0.2-2.0); Hematocrit 35.4 % (36.0-48.0); Hemoglobin 10.1 g/dL (12.0-16.0); Immature Granulocytes Pct Auto 4.8 % (0.0-0.5); Lymphocytes Absolute Auto 1.3 10^3/uL (1.2-3.8); Mean Corpuscular HGB Conc 28.5 g/dL (29.9-35.2); Mean Corpuscular Hemoglobin 29.1 pg (26.7-34.0); Mean Platelet Volume 10.9 fL (9.5-13.5); Monocytes Absolute Auto 0.3 10^3/uL (0.3-0.8); Monocytes Percent Auto 4.9 % (1.7-12.0); Neutrophils Absolute Auto 4.4 10^3/uL (1.4-6.5); Neutrophils Percent Auto 69.7 % (43.0-75.0); Platelet Count 252 10^3/uL (150-450); Red Blood Count 3.47 10^6/uL (4.20-5.40); White Blood Count 6.3 10^3/uL (4.0-11.0)
[2024-01-24 11:40] LABS: Anion Gap 5.8; BUN Creatinine Ratio 40.7; Calcium 7.7 mg/dL (8.5-10.1); Carbon Dioxide 39.2 mmol/L (21.0-32.0); Chloride 106 mmol/L (98-107); Estimated GFR (African America 56 (>=60); Estimated GFR (Non-African Ame 46 (>=60); Glucose 96 mg/dL (74-106); Sodium 147 mmol/L (136-145)
[2024-01-31 09:19] LABS: Basophils Absolute Auto 0.1 10^3/uL (0.0-0.1); Basophils Percent Auto 0.6 % (0.2-2.0); Hematocrit 35.3 % (36.0-48.0); Hemoglobin 10.3 g/dL (12.0-16.0); Immature Granulocytes Abs Auto 0.12 10^3/uL (0.00-0.03); Immature Granulocytes Pct Auto 1.5 % (0.0-0.5); Lymphocytes Absolute Auto 2.1 10^3/uL (1.2-3.8); Lymphocytes Percent Auto 25.3 % (20.5-60.0); Mean Corpuscular HGB Conc 29.2 g/dL (29.9-35.2); Mean Corpuscular Hemoglobin 29.3 pg (26.7-34.0); Mean Corpuscular Volume 100.6 fL (81.0-99.0); Mean Platelet Volume 10.6 fL (9.5-13.5); Monocytes Absolute Auto 0.6 10^3/uL (0.3-0.8); Monocytes Percent Auto 6.7 % (1.7-12.0); Neutrophils Absolute Auto 5.5 10^3/uL (1.4-6.5); Neutrophils Percent Auto 65.9 % (43.0-75.0); Platelet Count 208 10^3/uL (150-450); Red Blood Count 3.51 10^6/uL (4.20-5.40); Red Cell Distribution Width 16.6 % (11.0-15.0); White Blood Count 8.3 10^3/uL (4.0-11.0)
[2024-01-31 09:33] LABS: Anion Gap 2.7; BUN Creatinine Ratio 27.5; C Reactive Protein 1.12 mg/dL (<=0.50); Calcium 7.5 mg/dL (8.5-10.1); Carbon Dioxide 37.7 mmol/L (21.0-32.0); Chloride 105 mmol/L (98-107); Estimated GFR (African America >60 (>=60); Estimated GFR (Non-African Ame >60 (>=60); Glucose 91 mg/dL (74-106); Potassium 3.4 mmol/L (3.5-5.1); Sodium 142 mmol/L (136-145)
[2024-02-07 10:17] LABS: Basophils Percent Auto 0.7 % (0.2-2.0); Hematocrit 28.1 % (36.0-48.0); Hemoglobin 8.2 g/dL (12.0-16.0); Immature Granulocytes Abs Auto 0.03 10^3/uL (0.00-0.03); Immature Granulocytes Pct Auto 0.7 % (0.0-0.5); Lymphocytes Absolute Auto 1.6 10^3/uL (1.2-3.8); Lymphocytes Percent Auto 35.1 % (20.5-60.0); Mean Corpuscular HGB Conc 29.2 g/dL (29.9-35.2); Mean Corpuscular Hemoglobin 29.8 pg (26.7-34.0); Mean Corpuscular Volume 102.2 fL (81.0-99.0); Mean Platelet Volume 10.9 fL (9.5-13.5); Monocytes Absolute Auto 0.5 10^3/uL (0.3-0.8); Monocytes Percent Auto 10.6 % (1.7-12.0); Neutrophils Absolute Auto 2.3 10^3/uL (1.4-6.5); Neutrophils Percent Auto 52.9 % (43.0-75.0); Platelet Count 175 10^3/uL (150-450); Red Blood Count 2.75 10^6/uL (4.20-5.40); Red Cell Distribution Width 18.2 % (11.0-15.0); White Blood Count 4.4 10^3/uL (4.0-11.0)
[2024-02-07 10:45] LABS: Anion Gap 0.4; BUN Creatinine Ratio 26.1; C Reactive Protein 1.46 mg/dL (<=0.50); Calcium 7.3 mg/dL (8.5-10.1); Carbon Dioxide 37.3 mmol/L (21.0-32.0); Chloride 104 mmol/L (98-107); Estimated GFR (African America >60 (>=60); Estimated GFR (Non-African Ame 59 (>=60); Glucose 96 mg/dL (74-106); Potassium 3.7 mmol/L (3.5-5.1); Sodium 138 mmol/L (136-145)
== END 2024-04-01 11:13 | disposition home or self-care (01) ==
LOC: LAB 06:51
PROVIDERS: PCP Family Medicine; Visit Provider Family Medicine
DX: A41.9 Sepsis, unspecified organism (principal)
CPT/HCPCS: 36415; 80048; 82565; 85025; 86140

== ENCOUNTER 2024-01-19 18:27 | Outpatient (REF) | payer MEDICARE, MEDICAID, SELFPAY ==
--- OUTSIDE RECORDS SUMMARY | 2024-01-19 18:33 | XMS_ITS | CCD ---
Author Organization [facility] Care Team Providers Care Business Relationship Manager Name Role Phone VILLALTA NEPTALI COLEMAN Unavailable Unavailabl e VILLALTANEPTALI CORDOVA Unavailable Unavailabl [...] Care Unavailable BETH, DR ROCK Attending Unavailable SMITH, CHRISTOPHER Referring Unavailable HORANI, YUE Referring Unavailable SMITH, CHRISTTOSHIAER Referring Unavailable CLARISSA SHAFFER Referring Unavailable OLIMPIA LANDRY Referring Unavailable VELY, AELA Admitting Unavailable VELY, AELA Attending Unavailable KASSANDRA PEREZ Referring Unavailable HORANI, YUE Admitting Unavailable DARLENE MOORE Referring Unavailable KIRBY, HARSHA Attending Unavailable DOE BARAJAS Referring Unavailable KARLDOE ASENCIO Referring Unavailable MARISELA EMERSON Attending Unavailable DON YUSUF Referring Unavailable SMITH, KARLA Attending Unavailable COLTEN LAYTON Attending Unavailable ANY ROSA Attending Unavailable KIRBY, HARSHA Referring Unavailable SMITH, CHRISTOPHER Referring Unavailable VELY, AELA Referring Unavailable VELY, AELA Referring Unavailable VELY, AELA Referring Unavailable Problems Active Problems Problem Classification [...] artificial hip joint] Onset: 11-13-2023 Chronic Other injuries and conditions due to external causes (2 sources) Other injury of unspecified body region, initial encounter; Translations: [Other injury of unspecified body region, initial encounter] Onset: 01-09-2024 Episodic Other nutritional; endocrine; and metabolic disorders [...] / hypokalemia() Onset: 01-30-2017 Unclassified (2 sources) Hospital Follow-up; Translations: [Hospital Follow-up] Onset: 01-01-2024 Unclassified (2 sources) L thigh wound infection Onset: 01-01-2024 Unclassified (2 sources) Post-op; Translations: [Post-op] Onset: [...] Test Name Value Interpretation Reference Range Facility Follow-Upon 01-09-2024 Follow-Up [facility] Follow-Upon 01-01-2024 Follow-Up [facility] 36on 12-26-2023 36 Contacted SNF spoke to patient nurse Lalita to remove Mid Line, order was faxed [phone], confirmation received. [facility] 36 Orders placed [facility] 36 Patient finished Meropenem antibiotic therapy on 12/19/2023 and still has midline in. Follow up appointment is 01/01/[address] order for removal so we can fax that over to them? [facility] Orders Onlyon 12-26-2023 Orders Only [id number] Marisol Zamudio elva 1945 F Date Provider Department [place] 12/26/2023 ANY [facility] Nohelia Heal No family history on file [facility] 36on 12-18-2023 36 Okay, thank you Normal [facility] 36 long-term called and stated patient is very ill and would call back when she gets better. Niurka Flores [phone] [facility] Telephoneon 12-18-2023 Telephone [phone] Marisol Zamudio elva 1945 F Date Provider Department [place] 12/18/2023 DEWEY GONZALEZ [facility] INF Nohelia Heal Family History Family history unknown: Yes [facility] 36on 12-11-2023 36 Opat received. Confirmed orders with parviz at [facility]. Confirmed appt 12/17 and labs to be drawn 12/12. Normal [facility] 30on 12-06-2023 30 [facility] CBC WITH AUTO DIFFERENTIALon 12-06-2023 Erythrocyte distribution width (RBC) [Ratio] 22.8 % High 11.5-15.0 [facility] Comment on above: Performed By: #### L [id number] ####[facility] (BEAKER)[address] [place] [address] ERYTHROCYTE MEAN CORPUSCULAR HEMOGLOBIN CONCENTRATION (G/DL) BY AUTOMATED 29.8 g/dL Low 32.0-35.0 [facility] Comment on above: Performed By: #### L [id number] ####[facility] (BEAKER)[address] [place] [address] Hematocrit (Bld) [Volume fraction] 30.2 % Low 36.0-48.0 [facility] Comment on above: Performed By: #### L [id number] ####[facility] (BEAKER)[address] [place] [address] Hemoglobin (Bld) [Mass/Vol] 9.0 g/dL Low 12.0-15.0 [facility] Comment on above: Performed By: #### L [id number] ####[facility] ([facility])[address] [place] [address] MCH (RBC) [Entitic mass] 30.1 pg Normal 27.0-33.0 [facility] Comment on above: Performed By: #### L [id number] ####[facility] ([facility])[address] [place] [address] MCV (RBC) [Entitic vol] 101.0 fL High 82.0-98.0 [facility] Comment on above: Performed By: #### L [id number] ####[facility] ([facility])[address] [place] [address] NRBC (PER 100 WBCS) BY AUTOMATED COUNT 0.0 % Normal 0 [facility] Comment on above: Performed By: #### L [id number] ####[facility] ([facility])[address] [place] [address] PLATELETS (10*3/UL) IN BLOOD AUTOMATED COUNT 285 10*3/uL Normal 150-400 [facility] Comment on above: Performed By: #### L [id number] ####[facility] ([facility])[address] [place] [address] RBC (Bld) [#/Vol] 2.99 10*6/uL Low 3.80-5.00 [facility] Comment on above: Performed By: #### L [id number] ####[facility] ([facility])[address] [place] [address] WBC (Bld) [#/Vol] 6.16 10*3/uL Normal 4.00-10.60 [facility] Comment on above: Performed By: #### L [id number] ####[facility] [place] [address] COMPREHENSIVE METABOLIC PANE Frank 12-06-2023 Albumin [Mass/Vol] 1.9 g/dL Low 3.5-5.7 [facility] Comment on above: Performed By: #### L [id number] ####[facility] (BEAKER)[address] [place] [address] ALP [Catalytic activity/Vol] 85 U/L Normal 34-104 [facility] Comment on above: Performed By: #### L [id number] ####[facility] (BEAKER)[address] [place] [address] ALT [Catalytic activity/Vol] 7 U/L Normal 7-52 [facility] Comment on above: Performed By: #### L [id number] ####[facility] (BEAKER)[address] [place] [address] Anion gap [Moles/Vol] 9 mmol/L Normal 7-20 [facility] Comment on above: Performed By: #### L [id number] ####[facility] (BEAKER)[address] [place] [address] AST [Catalytic activity/Vol] 16 U/L Normal 13-39 [facility] Comment on above: Performed By: #### L [id number] ####[facility] (BEAKER)[address] [place] [address] Bilirubin [Mass/Vol] 0.7 mg/dL Normal 0.3-1.0 [facility] Comment on above: Performed By: #### L [id number] ####[facility] (BEAKER)[address] [place] [address] Calcium [Mass/Vol] 6.9 mg/dL Low 8.6-10.3 [facility] Comment on above: Performed By: #### L [id number] ####[facility] (BEAKER)[address] [place] [address] Chloride [Moles/Vol] 104 mmol/L Normal 98-107 [facility] Comment on above: Performed By: #### L [id number] ####[facility] (BEAKER)[address] [place] [address] CO2 [Moles/Vol] 28 mmol/L Normal 21-31 [facility] Comment on above: Performed By: #### L [id number] ####[facility] ([facility])[address] [place] [address] Creatinine [Mass/Vol] 0.66 mg/dL Normal 0.60-1.20 [facility] Comment on above: Performed By: #### L [id number] ####[facility] ([facility])[address] [place] [address] GLOMERULAR FILTRATION RATE ML/MIN/1.73 SQ M.PREDICTED 89.2 mL/min/1.73m*2 Normal >60.0 [facility] Comment on above: Result Comment: The [facility]???s estimated glomerular filtration rate (eGFR) [...] of individuals. Performed By: #### L [id number] ####[facility] ([facility])[address] [place] [address] Glucose [Mass/Vol] 118 mg/dL High 70-100 [facility] Comment on above: Performed By: #### L [id number] ####[facility] ([facility])[address] [place] [address] Potassium [Moles/Vol] 4.4 mmol/L Normal 3.5-5.1 [facility] Comment on above: Performed By: #### L [id number] ####[facility] ([facility])[address] [place] [address] Protein [Mass/Vol] 4.7 g/dL Low 6.0-8.3 [facility] Comment on above: Performed By: #### L [id number] ####[facility] ([facility])[address] [place] [address] Sodium [Moles/Vol] 137 mmol/L Normal 136-145 [facility] Comment on above: Performed By: #### L [id number] ####[facility] ([facility])[address] [place] [address] Urea nitrogen [Mass/Vol] 18 mg/dL Normal 7-25 [facility] Comment on above: Performed By: #### L [id number] ####[facility] ([facility])[address] [place] [address] UREA NITROGEN/CREATININE (MASS RATIO) IN SER/PLAS 27.3 Normal [facility] Comment on above: Performed By: #### L [id number] ####[facility] ([facility])[address] [place] [address] CONSULTon 12-06-2023 CONSULT Normal [facility] DSon 12-06-2023 DS Normal [facility] HEMOGLOBINon 12-06-2023 Hemoglobin (Bld) [Mass/Vol] 7.8 g/dL Low 12.0-15.0 [facility] Comment on above: Performed By: #### L [id number] ####[facility] ([facility])[address] [place] [address] MANUAL DIFFERENTIALon 2023 ANISOCYTOSIS PRESENCE IN BLOOD BY LIGHT MICROSCOPY Moderate Normal [facility] Comment on above: Performed By: #### L [id number] ####[facility] ([facility])[address] [place] [address] BASOPHILS (10*3/UL) IN BLOOD BY CALCULATION 0.02 10*3/uL Normal 0.00-0.20 [facility] Comment on above: Performed By: #### L [id number] ####[facility] ([facility])[address] [place] [address] BASOPHILS/100 LEUKOCYTES IN BLOOD BY AUTOMATED COUNT 0.3 % Normal 0.0-1.0 [facility] Comment on above: Performed By: #### L [id number] ####[facility] ([facility])[address] [place] [address] EOSINOPHILS (10*3/UL) IN BLOOD BY CALCULATION 0.00 10*3/uL Normal 0.00-0.50 [facility] Comment on above: Performed By: #### L [id number] ####[facility] ([facility])[address] [place] [address] EOSINOPHILS/100 LEUKOCYTES IN BLOOD BY AUTOMATED COUNT 0.0 % Normal 0.0-6.0 [facility] Comment on above: Performed By: #### L [id number] ####[facility] ([facility])[address] [place] [address] IMMATURE GRANULOCYTES (10*3/UL) IN BLOOD BY CALCULATION 0.19 10*3/uL Normal 0.00-0.20 [facility] Comment on above: Performed By: #### L [id number] ####[facility] ([facility])[address] [place] [address] IMMATURE GRANULOCYTES/100 LEUKOCYTES IN BLOOD BY AUTOMATED COUNT 3.1 % High 0.0-1.0 [facility] Comment on above: Performed By: #### L [id number] ####[facility] ([facility])[address] [place] [address] LYMPHOCYTES (10*3/UL) IN BLOOD BY CALCULATION 1.03 10*3/uL Low 1.20-4.00 [facility] Comment on above: Performed By: #### L [id number] ####[facility] ([facility])[address] [place] [address] LYMPHOCYTES/100 LEUKOCYTES IN BLOOD BY AUTOMATED COUNT 16.7 % Low 20.0-45.0 [facility] Comment on above: Performed By: #### L [id number] ####[facility] ([facility])[address] [place] [address] MONOCYTES (10*3/UL) IN BLOOD BY CALCUATION 0.47 10*3/uL Normal 0.10-1.00 [facility] Comment on above: Performed By: #### L [id number] ####[facility] ([facility])[address] [place] [address] MONOCYTES/100 LEUKOCYTES IN BLOOD BY AUTOMATED COUNT 7.6 % Normal 5.0-12.0 [facility] Comment on above: Performed By: #### L [id number] ####[facility] ([facility])[address] [place] [address] NEUTROPHILS (10*3/UL) IN BLOOD BY CALCULATION 4.5 10*3/uL Normal 1.6-7.6 [facility] Comment on above: Performed By: #### L [id number] ####[facility] ([facility])[address] [place] [address] NEUTROPHILS/100 LEUKOCYTES IN BLOOD BY AUTOMATED COUNT 72.3 % High 40.0-72.0 [facility] Comment on above: Performed By: #### L [id number] ####[facility] ([facility])[address] [place] [address] POIKILOCYTOSIS (PRESENCE) IN BLOOD BY LIGHT MICROSCOPY Slight Normal [facility] Comment on above: Performed By: #### L [id number] ####[facility] ([facility])[address] [place] [address] POLYCHROMASIA IN BLOOD BY LIGHT MICROSCOPY Slight Normal [facility] Comment on above: Performed By: #### L [id number] ####[facility] ([facility])[address] [place] [address] NURSNOTEon 12-06-2023 NURSNOTE Report given to Nikki villa [place] at [phone]. Report accepted and questions answered. [facility] NURSNOTE Called to place a midline. Pt is getting Meropenum for 13 days. According to our chart that is a PICC line. Dr. Rodriguez ordered a midline and is comfortable with this choice. [facility] 30on 12-05-2023 30 [facility] ANESon 12-05-2023 ANES [facility] BASIC METABOLIC PANELon 11-13 Anion gap [Moles/Vol] 7 mmol/L Normal 7-20 [facility] Comment on above: Performed By: #### L [id number] ####[facility] ([facility])[address] [place] [address] Calcium [Mass/Vol] 6.7 mg/dL Low 8.6-10.3 [facility] Comment on above: Performed By: #### L [id number] ####[facility] ([facility])[address] [place] [address] Chloride [Moles/Vol] 103 mmol/L Normal 98-107 [facility] Comment on above: Performed By: #### L [id number] ####[facility] ([facility])[address] [place] [address] CO2 [Moles/Vol] 32 mmol/L High 21-31 [facility] Comment on above: Performed By: #### L [id number] ####[facility] ([facility])[address] [place] [address] Creatinine [Mass/Vol] 0.73 mg/dL Normal 0.60-1.20 [facility] Comment on above: Performed By: #### L [id number] ####[facility] ([facility])[address] [place] [address] GLOMERULAR FILTRATION RATE ML/MIN/1.73 SQ M.PREDICTED 83.6 mL/min/1.73m*2 Normal >60.0 [facility] Comment on above: Result Comment: [facility]???s estimated glomerular filtration rate (eGFR) [...] AB15 ####[facility] ([facility])[address] [place] [address] Glucose [Mass/Vol] 173 mg/dL High 70-100 [facility] Comment on above: Performed By: #### L [id number] ####[facility] [place] [address] Potassium [Moles/Vol] 4.2 mmol/L Normal 3.5-5.1 [facility] Comment on above: Performed By: #### L [id number] ####[facility] ([facility])[address] [place] [address] Sodium [Moles/Vol] 138 mmol/L Normal 136-145 [facility] Comment on above: Performed By: #### L [id number] ####[facility] ([facility])[address] [place] [address] Urea nitrogen [Mass/Vol] 19 mg/dL Normal 7-25 [facility] Comment on above: Performed By: #### L [id number] ####[facility] ([facility])[address] [place] [address] UREA NITROGEN/CREATININE (MASS RATIO) IN SER/PLAS 26.0 [facility] Comment on above: Performed By: #### L [id number] ####[facility] ([facility])[address] [place] [address] BLOOD CULTUREon 12-05-2023 Bacteria identified Cx Nom (Bld) No growth at 5 days Normal [facility] Comment on above: Order Comment: From a different site than #1. Performed By: #### L [id number] ####[facility] [place] [address] CONSULTon 12-05-2023 CONSULT Normal [facility] CONSULT Normal [facility] HEMOGLOBIN AND HEMATOCRIT, B LOODon 12-05-2023 Hematocrit (Bld) [Volume fraction] 26.2 % Low 36.0-48.0 [facility] Comment on above: Performed By: #### L [id number] ####[facility] [place] [address] Hemoglobin (Bld) [Mass/Vol] 7.3 g/dL Low 12.0-15.0 [facility] Comment on above: Performed By: #### L [id number] ####[facility] (BEAKER)[address] [place] [address] MAGNESIUMon 12-05-2023 Magnesium [Mass/Vol] 1.6 mg/dL Low 1.9-2.7 [facility] Comment on above: Performed By: #### L [id number] ####[facility] (BEAKER)[address] [place] [address] MRSA/MSSA DNA NASALon 2023 MRSA DNA Negative Normal Negative [facility] Comment on above: [...] preclude nasal colonization. Performed By: #### L [id number] ####[facility] [place] [address] MSSA DNA Negative Normal Negative [facility] Comment on above: [...] preclude nasal colonization. Performed By: #### L [id number] ####[facility] (BEAKER)[address] [place] [address] NURSNOTEon 12-05-2023 NURSNOTE Normal [facility] OPNOTEon 12-05-2023 OPNOTE Normal [facility] POCT GLUCOSE METER UNSOLICIT ED RESULTSon 12-05-2023 Glucose [Mass/Vol] 76 mg/dL Normal 70-105 [facility] Comment on above: Order Comment: Waive d Testing in the ED is performed under the ED CLIA certificate #[id number]. Result Comment: [facility] daja Performed By: #### L [id number] ####[facility] ([facility])[address] [place] [address] TROPONIN Ion 12-05-2023 Troponin I.cardiac [Mass/Vol] 0.01 ng/mL Normal 0.00-0.04 [facility] Comment on above: Performed By: #### L [id number] ####[facility] ([facility])[address] [facility] [address] ANESon 12-04-2023 ANES Normal [facility] APTTon 12-04-2023 ACTIVATED PARTIAL THROMBOPLASTIN TIME IN PPP BY COAGULATION ASSAY 33.8 Seconds Normal 25.0-35.0 [facility] Comment on above: Result Comment: Clin ical significance of the APTT is questionable in the presence of heparin. Performed By: #### L [id number] ####[facility] [place] [address] BASIC METABOLIC PANELon 11-13 Anion gap [Moles/Vol] 9 mmol/L Normal 7-20 [facility] Comment on above: Performed By: #### L [id number] ####[facility] ([facility])[address] [place] [address] Calcium [Mass/Vol] 6.9 mg/dL Low 8.6-10.3 [facility] Comment on above: Performed By: #### L [id number] ####[facility] [facility] [address] Chloride [Moles/Vol] 102 mmol/L Normal 98-107 [facility] Comment on above: Performed By: #### L [id number] ####[facility] (BEAKER)[address] [place] [address] CO2 [Moles/Vol] 32 mmol/L High 21-31 [facility] Comment on above: Performed By: #### L [id number] ####[facility] ([facility] [place] [address] Creatinine [Mass/Vol] 0.66 mg/dL Normal 0.60-1.20 [facility] Comment on above: Performed By: #### L [id number] ####[facility] [place] [address] GLOMERULAR FILTRATION RATE ML/MIN/1.73 SQ M.PREDICTED 89.2 mL/min/1.73m*2 Normal >60.0 [facility] Comment on above: Result Comment: [facility]???s estimated glomerular filtration rate (eGFR) [...] AB15 ####[facility] [place] [address] Glucose [Mass/Vol] 95 mg/dL Normal 70-100 [facility] Comment on above: Performed By: #### L [id number] ####[facility] (BEAKER)[address] [place] [address] Potassium [Moles/Vol] 4.1 mmol/L Normal 3.5-5.1 [facility] Comment on above: Performed By: #### L [id number] ####[facility] [place] [address] Sodium [Moles/Vol] 139 mmol/L Normal 136-145 [facility] Comment on above: Performed By: #### L [id number] ####[facility] [place] [address] Urea nitrogen [Mass/Vol] 21 mg/dL Normal 7-25 [facility] Comment on above: Performed By: #### L [id number] ####[facility] ([facility])[address] [place] [address] UREA NITROGEN/CREATININE (MASS RATIO) IN SER/PLAS 31.8 Normal [facility] Comment on above: Performed By: #### L [id number] ####[facility] ([facility])[address] [place] [address] C-REACTIVE PROTEINon 024 C REACTIVE PROTEIN (MG/L) IN SER/PLAS 55.8 mg/L High 0.0-7.0 [facility] Comment on above: Performed By: #### L [id number] ####[facility] ([facility])[address] [place] [address] CBC WITH AUTO DIFFERENTIALon 12-04-2023 Erythrocyte distribution width (RBC) [Ratio] 23.4 % High 11.5-15.0 [facility] Comment on above: Performed By: #### L [id number] ####[facility] ([facility])[address] [place] [address] ERYTHROCYTE MEAN CORPUSCULAR HEMOGLOBIN CONCENTRATION (G/DL) BY AUTOMATED 28.7 g/dL Low 32.0-35.0 [facility] Comment on above: Performed By: #### L [id number] ####[facility] ([facility] [place] [address] Hematocrit (Bld) [Volume fraction] 31.0 % Low 36.0-48.0 [facility] Comment on above: Performed By: #### L [id number] ####[facility] ([facility] [place] [address] Hemoglobin (Bld) [Mass/Vol] 8.9 g/dL Low 12.0-15.0 [facility] Comment on above: Performed By: #### L [id number] ####[facility] ([facility])[address] [place] [address] MCH (RBC) [Entitic mass] 29.3 pg Normal 27.0-33.0 [facility] Comment on above: Performed By: #### L [id number] ####[facility] ([facility])[address] [place] [address] MCV (RBC) [Entitic vol] 102.0 fL High 82.0-98.0 [facility] Comment on above: Performed By: #### L [id number] ####[facility] ([facility])[address] [place] [address] NRBC (PER 100 WBCS) BY AUTOMATED COUNT 0.0 % Normal 0 [facility] Comment on above: Performed By: #### L [id number] ####[facility] ([facility])[address] [place] [address] PLATELETS (10*3/UL) IN BLOOD AUTOMATED COUNT 328 10*3/uL Normal 150-400 [facility] Comment on above: Performed By: #### L [id number] ####[facility] ([facility])[address] [place] [address] RBC (Bld) [#/Vol] 3.04 10*6/uL Low 3.80-5.00 [facility] Comment on above: Performed By: #### L [id number] ####[facility] ([facility])[address] [place] [address] WBC (Bld) [#/Vol] 5.47 10*3/uL Normal 4.00-10.60 [facility] Comment on above: Performed By: #### L [id number] ####[facility] ([facility])[address] [place] [address] CONSULTon 12-04-2023 CONSULT Normal [facility] EDNURSon 12-04-2023 EDNURS Normal [facility] EDPROVon 12-04-2023 EDPROV Normal [facility] HPon 12-04-2023 HP Normal [facility] MANUAL DIFFERENTIALon 2023 ANISOCYTOSIS PRESENCE IN BLOOD BY LIGHT MICROSCOPY Moderate Normal [facility] Comment on above: Performed By: #### L [id number] ####[facility] ([facility])[address] [place] [address] BASOPHILS (10*3/UL) IN BLOOD BY CALCULATION 0.02 10*3/uL Normal 0.00-0.20 [facility] Comment on above: Performed By: #### L [id number] ####[facility] ([facility])[address] [place] [address] BASOPHILS/100 LEUKOCYTES IN BLOOD BY AUTOMATED COUNT 0.4 % Normal 0.0-1.0 [facility] Comment on above: Performed By: #### L [id number] ####[facility] ([facility])[address] [place] [address] EOSINOPHILS (10*3/UL) IN BLOOD BY CALCULATION 0.00 10*3/uL Normal 0.00-0.50 [facility] Comment on above: Performed By: #### L [id number] ####[facility] ([facility])[address] [place] [address] EOSINOPHILS/100 LEUKOCYTES IN BLOOD BY AUTOMATED COUNT 0.0 % Normal 0.0-6.0 [facility] Comment on above: Performed By: #### L [id number] ####[facility] ([facility])[address] [place] [address] HYPOCHROMIA (PRESENCE) IN BLOOD BY LIGHT MICROSCOPY Moderate Normal [facility] Comment on above: Performed By: #### L [id number] ####[facility] ([facility])[address] [place] [address] IMMATURE GRANULOCYTES (10*3/UL) IN BLOOD BY CALCULATION 0.08 10*3/uL Normal 0.00-0.20 [facility] Comment on above: Performed By: #### L [id number] ####[facility] ([facility])[address] [place] [address] IMMATURE GRANULOCYTES/100 LEUKOCYTES IN BLOOD BY AUTOMATED COUNT 1.5 % High 0.0-1.0 [facility] Comment on above: Performed By: #### L [id number] ####[facility] ([facility])[address] [place] [address] LYMPHOCYTES (10*3/UL) IN BLOOD BY CALCULATION 0.83 10*3/uL Low 1.20-4.00 [facility] Comment on above: Performed By: #### L [id number] ####[facility] ([facility])[address] [place], [place] [address] LYMPHOCYTES/100 LEUKOCYTES IN BLOOD BY AUTOMATED COUNT 15.2 % Low 20.0-45.0 [facility] Comment on above: Performed By: #### L [id number] ####[facility] ([facility])[address] [place], [place] [address] MONOCYTES (10*3/UL) IN BLOOD BY CALCUATION 0.45 10*3/uL Normal 0.10-1.00 [facility] Comment on above: Performed By: #### L [id number] ####[facility] ([facility])[address] [place], [place] [address] MONOCYTES/100 LEUKOCYTES IN BLOOD BY AUTOMATED COUNT 8.2 % Normal 5.0-12.0 [facility] Comment on above: Performed By: #### L [id number] ####[facility] ([facility])[address] [place], [place] [address] NEUTROPHILS (10*3/UL) IN BLOOD BY CALCULATION 4.1 10*3/uL Normal 1.6-7.6 [facility] Comment on above: Performed By: #### L [id number] ####[facility] ([facility])[address] [place], [place] [address] NEUTROPHILS/100 LEUKOCYTES IN BLOOD BY AUTOMATED COUNT 74.7 % High 40.0-72.0 [facility] Comment on above: Performed By: #### L [id number] ####[facility] ([facility])[address] [place] [address] POIKILOCYTOSIS (PRESENCE) IN BLOOD BY LIGHT MICROSCOPY Slight Normal [facility] Comment on above: Performed By: #### L [id number] ####[facility] ([facility])[address] [place] [address] POLYCHROMASIA IN BLOOD BY LIGHT MICROSCOPY Slight Normal [facility] Comment on above: Performed By: #### L [id number] ####[facility] ([facility])[address] [place] [address] PROTIME-INRon 12-04-2023 INR IN PPP BY COAGULATION ASSAY 1.58 High 0.90-1.10 [facility] Comment on above: Result Comment: [...] [id number] ####[facility] ([facility] [place] [address] PROTHROMBIN TIME (PT) IN PPP BY COAGULATION ASSAY 18.6 Seconds High 12.3-14.8 [facility] Comment on above: Performed By: #### L [id number] ####[facility] ([facility])[address] [place] [address] SEDIMENTATION RATEon 024 SEDIMENTATION RATE, ERYTHROCYTE 85 mm/hr High <=20 [facility] Comment on above: Performed By: #### L [id number] ####[facility] ([facility])[address] [place] [address] TYPE AND SCREENon 12-04-2023 AB SCREEN Negative Normal [facility] Comment on above: Order Comment: Add o n Performed By: #### L [id number] ####[facility]OD [facility], ABO group Nom (Bld) O Normal [facility] Comment on above: Order Comment: Add o n Performed By: #### L [id number] ####[facility] B[facility]OD [facility], RH TYPE IN BLOOD Positive Normal [facility] Comment on above: Order Comment: Add o n Performed By: #### L [id number] ####[facility]OD [facility], 36on 12-01-2023 36 [facility] 36 [employer]A DOBI[employer] WORKER- [phone] PLEASE GIVE ANYA A CALL BACK REGARDING POST OP PROTOCAL , UNBALE TO MAKE POST OP APPOINTMENTS HERE AT [facility] 36on 11-23-2023 36 [facility] Telephoneon 11-23-2023 Telephone [facility] 30on 11-22-2023 30 [facility] BASIC METABOLIC PANELon 11-12 Anion gap [Moles/Vol] 8 mmol/L Normal 7-20 [facility] Comment on above: Performed By: #### L [id number] ####[facility] (BEAKER)[address] [place] [address] Calcium [Mass/Vol] 6.7 mg/dL Low 8.6-10.3 [facility] Comment on above: Performed By: #### L [id number] ####[facility] (BEAKER)[address] [place] [address] Chloride [Moles/Vol] 106 mmol/L Normal 98-107 [facility] Comment on above: Performed By: #### L [id number] ####[facility] ([facility] [place] [address] CO2 [Moles/Vol] 29 mmol/L Normal 21-31 [facility] Comment on above: Performed By: #### L [id number] ####[facility] ([facility])[address] [place] [address] Creatinine [Mass/Vol] 0.84 mg/dL Normal 0.60-1.20 [facility] Comment on above: Performed By: #### L [id number] ####[facility] ([facility])[address] [place] [address] GLOMERULAR FILTRATION RATE ML/MIN/1.73 SQ M.PREDICTED 70.6 mL/min/1.73m*2 Normal >60.0 [facility] Comment on above: Result Comment: [facility]???s estimated glomerular filtration rate (eGFR) [...] AB15 ####[facility] ([facility] [place] [address] Glucose [Mass/Vol] 87 mg/dL Normal 70-100 [facility] Comment on above: Performed By: #### L [id number] ####[facility] ([facility])[address] [place] [address] Potassium [Moles/Vol] 4.2 mmol/L Normal 3.5-5.1 [facility] Comment on above: Performed By: #### L [id number] ####[facility] ([facility])[address] [place] [address] Sodium [Moles/Vol] 139 mmol/L Normal 136-145 [facility] Comment on above: Performed By: #### L [id number] ####[facility] ([facility])[address] [place] [address] Urea nitrogen [Mass/Vol] 34 mg/dL High 7-25 [facility] Comment on above: Performed By: #### L [id number] ####[facility] ([facility])[address] [place] [address] UREA NITROGEN/CREATININE (MASS RATIO) IN SER/PLAS 40.5 Normal [facility] Comment on above: Performed By: #### L [id number] ####[facility] ([facility])[address] [place] [address] CBC WITH AUTO DIFFERENTIALon 11-22-2023 Erythrocyte distribution width (RBC) [Ratio] 22.2 % High 11.5-15.0 [facility] Comment on above: Performed By: #### L [id number] ####[facility] ([facility])[address] [place] [address] ERYTHROCYTE MEAN CORPUSCULAR HEMOGLOBIN CONCENTRATION (G/DL) BY AUTOMATED 31.5 g/dL Low 32.0-35.0 [facility] Comment on above: Performed By: #### L [id number] ####[facility] ([facility])[address] [place] [address] Hematocrit (Bld) [Volume fraction] 26.0 % Low 36.0-48.0 [facility] Comment on above: Performed By: #### L [id number] ####[facility] ([facility])[address] [place] [address] Hemoglobin (Bld) [Mass/Vol] 8.2 g/dL Low 12.0-15.0 [facility] Comment on above: Performed By: #### L [id number] ####[facility] ([facility])[address] [place] [address] MCH (RBC) [Entitic mass] 30.4 pg Normal 27.0-33.0 [facility] Comment on above: Performed By: #### L [id number] ####[facility] ([facility] [place] [address] MCV (RBC) [Entitic vol] 96.3 fL Normal 82.0-98.0 [facility] Comment on above: Performed By: #### L [id number] ####[facility] ([facility])[address] [place] [address] NRBC (PER 100 WBCS) BY AUTOMATED COUNT 2.0 % High 0 [facility] Comment on above: Performed By: #### L [id number] ####[facility] ([facility])[address] [place] [address] PLATELETS (10*3/UL) IN BLOOD AUTOMATED COUNT 136 10*3/uL Low 150-400 [facility] Comment on above: Performed By: #### L [id number] ####[facility] ([facility])[address] [place] [address] RBC (Bld) [#/Vol] 2.70 10*6/uL Low 3.80-5.00 [facility] Comment on above: Performed By: #### L [id number] ####[facility] ([facility])[address] [place] [address] WBC (Bld) [#/Vol] 10.20 10*3/uL Normal 4.00-10.60 [facility] Comment on above: Performed By: #### L [id number] ####[facility] ([facility])[address] [place] [address] CONSULTon 11-22-2023 CONSULT Normal [facility] DSon 11-22-2023 DS Normal [facility] MAGNESIUMon 11-22-2023 Magnesium [Mass/Vol] 2.0 mg/dL Normal 1.9-2.7 [facility] Comment on above: Performed By: #### L [id number] ####[facility] [place] [address] MANUAL DIFFERENTIALon 2023 ANISOCYTOSIS PRESENCE IN BLOOD BY LIGHT MICROSCOPY Moderate Normal [facility] Comment on above: Performed By: #### L [id number] ####[facility] ([facility])[address] [place] [address] BASOPHILS (10*3/UL) IN BLOOD BY CALCULATION 0.00 10*3/uL Normal 0.00-0.20 [facility] Comment on above: Performed By: #### L [id number] ####[facility] ([facility])[address] [place] [address] BASOPHILS/100 LEUKOCYTES IN BLOOD BY AUTOMATED COUNT 0.0 % Normal 0.0-1.0 [facility] Comment on above: Performed By: #### L [id number] ####[facility] ([facility])[address] [place] [address] EOSINOPHILS (10*3/UL) IN BLOOD BY CALCULATION 0.00 10*3/uL Normal 0.00-0.50 [facility] Comment on above: Performed By: #### L [id number] ####[facility] ([facility])[address] [place] [address] EOSINOPHILS/100 LEUKOCYTES IN BLOOD BY AUTOMATED COUNT 0.0 % Normal 0.0-6.0 [facility] Comment on above: Performed By: #### L [id number] ####[facility] ([facility])[address] [place] [address] LYMPHOCYTES (10*3/UL) IN BLOOD BY CALCULATION 1.55 10*3/uL Normal 1.20-4.00 [facility] Comment on above: Performed By: #### L [id number] ####[facility] ([facility])[address] [place] [address] LYMPHOCYTES/100 LEUKOCYTES IN BLOOD BY AUTOMATED COUNT 15.2 % Low 20.0-45.0 [facility] Comment on above: Performed By: #### L [id number] ####[facility] ([facility])[address] [place] [address] MACROCYTES (PRESENCE) IN BLOOD BY LIGHT MICROSCOPY Slight Normal [facility] Comment on above: Performed By: #### L [id number] ####[facility] ([facility])[address] [place] [address] METAMYELOCYTES (10*3/UL) IN BLOOD BY CALCULATION 0.70 10*3/uL High 0.00 [facility] Comment on above: Performed By: #### L [id number] ####[facility] ([facility])[address] [place] [address] METAMYELOCYTES/100 LEUKOCYTES IN BLOOD CELLAVISION 6.9 % High 0.0-0.0 [facility] Comment on above: Performed By: #### L [id number] ####[facility] ([facility])[address] [place] [address] MONOCYTES (10*3/UL) IN BLOOD BY CALCUATION 0.29 10*3/uL Normal 0.10-1.00 [facility] Comment on above: Performed By: #### L [id number] ####[facility] ([facility])[address] [place] [address] MONOCYTES/100 LEUKOCYTES IN BLOOD BY AUTOMATED COUNT 2.8 % Low 5.0-12.0 [facility] Comment on above: Performed By: #### L [id number] ####[facility] ([facility])[address] [place] [address] MYELOCYTES (10*3/UL) IN BLOOD BY CALCULATION 0.49 10*3/uL High 0.00 [facility] Comment on above: Performed By: #### L [id number] ####[facility] ([facility])[address] [place] [address] MYELOCYTES/100 LEUKOCYTES IN BLOOD CELLAVISION 4.8 % High 0.0-0.0 [facility] Comment on above: Performed By: #### L [id number] ####[facility] ([facility])[address] [place] [address] NEUTROPHILS (10*3/UL) IN BLOOD BY CALCULATION 7.1 10*3/uL Normal 1.6-7.6 [facility] Comment on above: Performed By: #### L [id number] ####[facility] (BEAKER)[address] [place] [address] NEUTROPHILS/100 LEUKOCYTES IN BLOOD BY AUTOMATED COUNT 69.6 % Normal 40.0-72.0 [facility] Comment on above: Performed By: #### L [id number] ####[facility] ([facility])[address] [place] [address] NUCLEATED RED BLOOD CELLS IN BLOOD BY LIGHT MICROSCOPY Present Normal [facility] Comment on above: Performed By: #### L [id number] ####[facility] [place] [address] PLASMA CELLS/100 LEUKOCYTES IN BLOOD 0 % Normal 0 [facility] Comment on above: Performed By: #### L [id number] ####[facility] [place] [address] PLATELETS GIANT PRESENCE IN BLOOD BY LIGHT MICROSCOPY Present Normal [facility] Comment on above: Performed By: #### L [id number] ####[facility] [place] [address] POIKILOCYTOSIS (PRESENCE) IN BLOOD BY LIGHT MICROSCOPY Slight Normal [facility] Comment on above: Performed By: #### L [id number] ####[facility] ([facility])[address] [place] [address] POLYCHROMASIA IN BLOOD BY LIGHT MICROSCOPY Slight Normal [facility] Comment on above: Performed By: #### L [id number] ####[facility] ([facility])[address] [place] [address] PROMYELOCYTES (10*3/UL) IN BLOOD BY CALCULATION 0.07 10*3/uL High 0.00 [facility] Comment on above: Performed By: #### L [id number] ####[facility] ([facility])[address] [place] [address] PROMYELOCYTES/100 LEUKOCYTES IN BLOOD CELLAVISION 0.7 % High 0.0-0.0 [facility] Comment on above: Performed By: #### L [id number] ####[facility] ([facility])[address] [place] [address] VARIANT LYMPHOCYTES (10*3/UL) IN BLOOD BY CALCULATION 0.00 10*3/uL Normal 0.00 [facility] Comment on above: Performed By: #### L [id number] ####[facility] ([facility])[address] [place] [address] VARIANT LYMPHOCYTES/100 LEUKOCYTES IN BLOOD CELLAVISION 0.0 % Normal 0.0-0.0 [facility] Comment on above: Performed By: #### L [id number] ####[facility] ([facility])[address] [place] [address] NURSNOTEon 11-22-2023 NURSNOTE Report given to ms rojas from [facility]. Two rings found inside patient's chart are placed back onto patient's fingers. Patient aware of the rings back on her finger. Normal [facility] PHOSPHORUSon 11-22-2023 Magnesium [Mass/Vol] 2.3 mg/dL Low 2.5-5.0 [facility] Comment on above: Performed By: #### L [id number] ####[facility] ([facility])[address] [place] [address] PROTIME-INRon 11-22-2023 INR IN PPP BY COAGULATION ASSAY 1.22 High 0.90-1.10 [facility] Comment on above: Result Comment: [...] [id number] ####[facility] ([facility])[address] [place] [address] PROTHROMBIN TIME (PT) IN PPP BY COAGULATION ASSAY 15.5 Seconds High 12.3-14.8 [facility] Comment on above: Performed By: #### L [id number] ####[facility] ([facility])[address] [place] [address] BASIC METABOLIC PANELon 07-0 Anion gap [Moles/Vol] 10 mmol/L Normal 7-20 [facility] Comment on above: Performed By: #### L [id number] ####[facility] ([facility])[address] [place] [address] Calcium [Mass/Vol] 7.4 mg/dL Low 8.6-10.3 [facility] Comment on above: Performed By: #### L [id number] ####[facility] ([facility])[address] [place] [address] Chloride [Moles/Vol] 104 mmol/L Normal 98-107 [facility] Comment on above: Performed By: #### L [id number] ####[facility] ([facility])[address] [place] [address] CO2 [Moles/Vol] 30 mmol/L Normal 21-31 [facility] Comment on above: Performed By: #### L [id number] ####[facility] ([facility])[address] [place] [address] Creatinine [Mass/Vol] 1.21 mg/dL High 0.60-1.20 [facility] Comment on above: Performed By: #### L [id number] ####[facility] ([facility] [place] [address] GLOMERULAR FILTRATION RATE ML/MIN/1.73 SQ M.PREDICTED 45.6 mL/min/1.73m*2 Low >60.0 [facility] Comment on above: Result Comment: [facility]???s estimated glomerular filtration rate (eGFR) [...] AB15 ####[facility] ([facility])[address] [place] [address] Glucose [Mass/Vol] 101 mg/dL High 70-100 [facility] Comment on above: Performed By: #### L [id number] ####[facility] ([facility])[address] [place] [address] Potassium [Moles/Vol] 4.1 mmol/L Normal 3.5-5.1 [facility] Comment on above: Performed By: #### L [id number] ####[facility] ([facility])[address] [place] [address] Sodium [Moles/Vol] 140 mmol/L Normal 136-145 [facility] Comment on above: Performed By: #### L [id number] ####[facility] ([facility])[address] [place] [address] Urea nitrogen [Mass/Vol] 41 mg/dL High 7-25 [facility] Comment on above: Performed By: #### L [id number] ####[facility] [place] [address] UREA NITROGEN/CREATININE (MASS RATIO) IN SER/PLAS 33.9 Normal [facility] Comment on above: Performed By: #### L [id number] ####[facility] [place] [address] CBC WITH AUTO DIFFERENTIALon 11-21-2023 Erythrocyte distribution width (RBC) [Ratio] 19.1 % High 11.5-15.0 [facility] Comment on above: Performed By: #### L [id number] ####[facility] ([facility])[address] [place] [address] ERYTHROCYTE MEAN CORPUSCULAR HEMOGLOBIN CONCENTRATION (G/DL) BY AUTOMATED 32.3 g/dL Normal 32.0-35.0 [facility] Comment on above: Performed By: #### L [id number] ####[facility] ([facility])[address] [place] [address] Hematocrit (Bld) [Volume fraction] 25.7 % Low 36.0-48.0 [facility] Comment on above: Performed By: #### L [id number] ####[facility] ([facility])[address] [place] [address] Hemoglobin (Bld) [Mass/Vol] 8.3 g/dL Low 12.0-15.0 [facility] Comment on above: Performed By: #### L [id number] ####[facility] ([facility])[address] [place] [address] MCH (RBC) [Entitic mass] 29.7 pg Normal 27.0-33.0 [facility] Comment on above: Performed By: #### L [id number] ####[facility] [place] [address] MCV (RBC) [Entitic vol] 92.1 fL Normal 82.0-98.0 [facility] Comment on above: Performed By: #### L [id number] ####[facility] [place] [address] NRBC (PER 100 WBCS) BY AUTOMATED COUNT 8.1 % High 0 [facility] Comment on above: Performed By: #### L [id number] ####[facility] [place] [address] PLATELETS (10*3/UL) IN BLOOD AUTOMATED COUNT 134 10*3/uL Low 150-400 [facility] Comment on above: Performed By: #### L [id number] ####[facility] [place] [address] RBC (Bld) [#/Vol] 2.79 10*6/uL Low 3.80-5.00 [facility] Comment on above: Performed By: #### L [id number] ####[facility] ([facility])[address] [place], [place] [address] WBC (Bld) [#/Vol] 13.21 10*3/uL High 4.00-10.60 [facility] Comment on above: Performed By: #### L [id number] ####[facility] ([facility])[address] [place], [place] [address] HEMOGLOBIN AND HEMATOCRIT, B LOODon 11-21-2023 Hematocrit (Bld) [Volume fraction] 25.9 % Low 36.0-48.0 [facility] Comment on above: Performed By: #### L [id number] ####[facility] ([facility])[address] [place] [address] Hemoglobin (Bld) [Mass/Vol] 8.3 g/dL Low 12.0-15.0 [facility] Comment on above: Performed By: #### L [id number] ####[facility] ([facility] [place] [address] MAGNESIUMon 11-21-2023 Magnesium [Mass/Vol] 2.1 mg/dL Normal 1.9-2.7 [facility] Comment on above: Performed By: #### L [id number] ####[facility] ([facility] [place] [address] MANUAL DIFFERENTIALon 2023 BASOPHILS (10*3/UL) IN BLOOD BY CALCULATION 0.00 10*3/uL Normal 0.00-0.20 [facility] Comment on above: Performed By: #### L [id number] ####[facility] ([facility])[address] [place] [address] BASOPHILS/100 LEUKOCYTES IN BLOOD BY AUTOMATED COUNT 0.0 % Normal 0.0-1.0 [facility] Comment on above: Performed By: #### L [id number] ####[facility] ([facility])[address] [place] [address] EOSINOPHILS (10*3/UL) IN BLOOD BY CALCULATION 0.09 10*3/uL Normal 0.00-0.50 [facility] Comment on above: Performed By: #### L [id number] ####[facility] ([facility])[address] [place] [address] EOSINOPHILS/100 LEUKOCYTES IN BLOOD BY AUTOMATED COUNT 0.7 % Normal 0.0-6.0 [facility] Comment on above: Performed By: #### L [id number] ####[facility] ([facility])[address] [place] [address] LYMPHOCYTES (10*3/UL) IN BLOOD BY CALCULATION 1.27 10*3/uL Normal 1.20-4.00 [facility] Comment on above: Performed By: #### L [id number] ####[facility] ([facility])[address] [place] [address] LYMPHOCYTES/100 LEUKOCYTES IN BLOOD BY AUTOMATED COUNT 9.6 % Low 20.0-45.0 [facility] Comment on above: Performed By: #### L [id number] ####[facility] ([facility])[address] [place] [address] METAMYELOCYTES (10*3/UL) IN BLOOD BY CALCULATION 0.45 10*3/uL High 0.00 [facility] Comment on above: Performed By: #### L [id number] ####[facility] ([facility])[address] [place] [address] METAMYELOCYTES/100 LEUKOCYTES IN BLOOD CELLAVISION 3.4 % High 0.0-0.0 [facility] Comment on above: Performed By: #### L [id number] ####[facility] ([facility])[address] [place] [address] MONOCYTES (10*3/UL) IN BLOOD BY CALCUATION 0.63 10*3/uL Normal 0.10-1.00 [facility] Comment on above: Performed By: #### L [id number] ####[facility] ([facility])[address] [place] [address] MONOCYTES/100 LEUKOCYTES IN BLOOD BY AUTOMATED COUNT 4.8 % Low 5.0-12.0 [facility] Comment on above: Performed By: #### L [id number] ####[facility] ([facility])[address] [place] [address] MYELOCYTES (10*3/UL) IN BLOOD BY CALCULATION 0.81 10*3/uL High 0.00 [facility] Comment on above: Performed By: #### L [id number] ####[facility] ([facility])[address] [place] [address] MYELOCYTES/100 LEUKOCYTES IN BLOOD CELLAVISION 6.1 % High 0.0-0.0 [facility] Comment on above: Performed By: #### L [id number] ####[facility] ([facility])[address] [place] [address] NEUTROPHILS (10*3/UL) IN BLOOD BY CALCULATION 9.8 10*3/uL High 1.6-7.6 [facility] Comment on above: Performed By: #### L [id number] ####[facility] ([facility])[address] [place] [address] NEUTROPHILS/100 LEUKOCYTES IN BLOOD BY AUTOMATED COUNT 74.0 % High 40.0-72.0 [facility] Comment on above: Performed By: #### L [id number] ####[facility] ([facility] [place] [address] NUCLEATED RED BLOOD CELLS IN BLOOD BY LIGHT MICROSCOPY Present Normal [facility] Comment on above: Performed By: #### L [id number] ####[facility] ([facility])[address] [place] [address] PLASMA CELLS/100 LEUKOCYTES IN BLOOD 0 % Normal 0 [facility] Comment on above: Performed By: #### L [id number] ####[facility] ([facility])[address] [place] [address] PROMYELOCYTES (10*3/UL) IN BLOOD BY CALCULATION 0.18 10*3/uL High 0.00 [facility] Comment on above: Performed By: #### L [id number] ####[facility] ([facility])[address] [place] [address] PROMYELOCYTES/100 LEUKOCYTES IN BLOOD CELLAVISION 1.4 % High 0.0-0.0 [facility] Comment on above: Performed By: #### L [id number] ####[facility] ([facility])[address] [place] [address] VARIANT LYMPHOCYTES (10*3/UL) IN BLOOD BY CALCULATION 0.00 10*3/uL Normal 0.00 [facility] Comment on above: Performed By: #### L [id number] ####[facility] ([facility])[address] [place] [address] VARIANT LYMPHOCYTES/100 LEUKOCYTES IN BLOOD CELLAVISION 0.0 % Normal 0.0-0.0 [facility] Comment on above: Performed By: #### L [id number] ####[facility] ([facility])[address] [place] [address] NURSNOTEon 11-21-2023 NURSNOTE Normal [facility] PHOSPHORUSon 11-21-2023 Magnesium [Mass/Vol] 2.7 mg/dL Normal 2.5-5.0 [facility] Comment on above: Performed By: #### L [id number] ####[facility] ([facility])[address] [place] [address] PROTIME-INRon 11-21-2023 INR IN PPP BY COAGULATION ASSAY 1.18 High 0.90-1.10 [facility] Comment on above: Result Comment: [...] [id number] ####[facility] ([employer])[address] [place] [address] PROTHROMBIN TIME (PT) IN PPP BY COAGULATION ASSAY 15.0 Seconds High 12.3-14.8 [facility] Comment on above: Performed By: #### L [id number] ####[facility] ([employer])[address] [place] [address] 30on 11-20-2023 30 Normal [facility] BASIC METABOLIC PANELon Anion gap [Moles/Vol] 11 mmol/L Normal 7-20 [facility] Comment on above: Performed By: #### L [id number] ####[facility] ([employer])[address] [place] [address] Calcium [Mass/Vol] 6.8 mg/dL Low 8.6-10.3 [facility] Comment on above: Performed By: #### L [id number] ####[facility] ([employer])[address] [place] [address] Chloride [Moles/Vol] 102 mmol/L Normal 98-107 [facility] Comment on above: Performed By: #### L [id number] ####[facility] ([facility])[address] [place] [address] CO2 [Moles/Vol] 29 mmol/L Normal 21-31 [facility] Comment on above: Performed By: #### L [id number] ####[facility] ([facility])[address] [place] [address] Creatinine [Mass/Vol] 1.59 mg/dL High 0.60-1.20 [facility] Comment on above: Performed By: #### L [id number] ####[facility] ([facility])[address] [place] [address] GLOMERULAR FILTRATION RATE ML/MIN/1.73 SQ M.PREDICTED 32.8 mL/min/1.73m*2 Low >60.0 [facility] Comment on above: Result Comment: [facility]???s estimated glomerular filtration rate (eGFR) [...] AB15 ####[facility] ([facility])[address] [place] [address] Glucose [Mass/Vol] 116 mg/dL High 70-100 [facility] Comment on above: Performed By: #### L [id number] ####[facility] ([facility])[address] [place] [address] Potassium [Moles/Vol] 4.4 mmol/L Normal 3.5-5.1 [facility] Comment on above: Performed By: #### L [id number] ####[facility] ([facility])[address] [place] [address] Sodium [Moles/Vol] 138 mmol/L Normal 136-145 [facility] Comment on above: Performed By: #### L [id number] ####[facility] ([facility])[address] [place] [address] Urea nitrogen [Mass/Vol] 47 mg/dL High 7-25 [facility] Comment on above: Performed By: #### L [id number] ####[facility] ([facility])[address] [place] [address] UREA NITROGEN/CREATININE (MASS RATIO) IN SER/PLAS 29.6 Normal [facility] Comment on above: Performed By: #### L [id number] ####[facility] [place] [address] CALCIUM, IONIZEDon CALCIUM IONIZED (MMOL/L) IN BLOOD 0.97 mmol/L Low 1.15-1.33 [facility] Comment on above: Performed By: #### L [id number] ####[facility] [id number] [place] [address] [place] CBCon 11-20-2023 Erythrocyte distribution width (RBC) [Ratio] 18.4 % High 11.5-15.0 [facility] Comment on above: Performed By: #### L [id number] ####[facility] [place] [address] ERYTHROCYTE MEAN CORPUSCULAR HEMOGLOBIN CONCENTRATION (G/DL) BY AUTOMATED 32.6 g/dL Normal 32.0-35.0 [facility] Comment on above: Performed By: #### L [id number] ####[facility] ([facility])[address] [place] [address] Hematocrit (Bld) [Volume fraction] 24.2 % Low 36.0-48.0 [facility] Comment on above: Performed By: #### L [id number] ####[facility] ([facility])[address] [place] [address] Hemoglobin (Bld) [Mass/Vol] 7.9 g/dL Low 12.0-15.0 [facility] Comment on above: Performed By: #### L [id number] ####[facility] ([facility])[address] [place] [place] [address] MCH (RBC) [Entitic mass] 29.9 pg Normal 27.0-33.0 [facility] Comment on above: Performed By: #### L [id number] ####[facility] [place] [address] MCV (RBC) [Entitic vol] 91.7 fL Normal 82.0-98.0 [facility] Comment on above: Performed By: #### L [id number] ####[facility] ([facility])[address] [place] [address] PLATELETS (10*3/UL) IN BLOOD AUTOMATED COUNT 133 10*3/uL Low 150-400 [facility] Comment on above: Performed By: #### L [id number] ####[facility] ([facility])[address] [place] [address] RBC (Bld) [#/Vol] 2.64 10*6/uL Low 3.80-5.00 [facility] Comment on above: Performed By: #### L [id number] ####[facility] ([facility])[address] [place] [address] WBC (Bld) [#/Vol] 13.49 10*3/uL High 4.00-10.60 [facility] Comment on above: Performed By: #### L [id number] ####[facility] ([facility])[address] [place] [address] CBC WITH AUTO DIFFERENTIALon 11-20-2023 Erythrocyte distribution width (RBC) [Ratio] 22.2 % High 11.5-15.0 [facility] Comment on above: Performed By: #### L [id number] ####[facility] ([facility])[address] [place] [address] ERYTHROCYTE MEAN CORPUSCULAR HEMOGLOBIN CONCENTRATION (G/DL) BY AUTOMATED 31.1 g/dL Low 32.0-35.0 [facility] Comment on above: Performed By: #### L [id number] ####[facility] ([facility] [place] [address] Hematocrit (Bld) [Volume fraction] 18.0 % Low 36.0-48.0 [facility] Comment on above: Performed By: #### L [id number] ####[facility] ([facility] [place] [address] Hemoglobin (Bld) [Mass/Vol] 5.6 g/dL Invalid Interpretation Code 12.0-15.0 [facility] Comment on above: Performed By: #### L [id number] ####[facility] ([facility])[address] [place] [address] MCH (RBC) [Entitic mass] 29.3 pg Normal 27.0-33.0 [facility] Comment on above: Performed By: #### L [id number] ####[facility] ([facility])[address] [place] [address] MCV (RBC) [Entitic vol] 94.2 fL Normal 82.0-98.0 [facility] Comment on above: Performed By: #### L [id number] ####[facility] ([facility])[address] [place] [address] NRBC (PER 100 WBCS) BY AUTOMATED COUNT 11.3 % High 0 [facility] Comment on above: Performed By: #### L [id number] ####[facility] ([facility])[address] [place] [address] PLATELETS (10*3/UL) IN BLOOD AUTOMATED COUNT 139 10*3/uL Low 150-400 [facility] Comment on above: Performed By: #### L [id number] ####[facility] ([facility])[address] [place] [address] RBC (Bld) [#/Vol] 1.91 10*6/uL Low 3.80-5.00 [facility] Comment on above: Performed By: #### L [id number] ####[facility] ([facility]ER)[address] [place] [address] WBC (Bld) [#/Vol] 13.93 10*3/uL High 4.00-10.60 [facility] Comment on above: Performed By: #### L [id number] ####[facility] ([facility])[address] [place] [address] CKon 11-20-2023 CREATINE KINASE (U/L) IN SER/PLAS 239.0 U/L High 30.0-223.0 [facility] Comment on above: Performed By: #### L [id number] ####[facility] ([facility])[address] [place] [address] HEMOGLOBIN AND HEMATOCRIT, B LOODon 11-20-2023 Hematocrit (Bld) [Volume fraction] 22.7 % Low 36.0-48.0 [facility] Comment on above: Performed By: #### L [id number] ####[facility] ([facility]ER)[address] [place] [address] Hemoglobin (Bld) [Mass/Vol] 7.2 g/dL Low 12.0-15.0 [facility] Comment on above: Performed By: #### L [id number] ####[facility] ([facility]ER)[address] [place], [place] [address] Hematocrit (Bld) [Volume fraction] 18.7 % Low 36.0-48.0 [facility] Comment on above: Performed By: #### L [id number] ####[facility] ([facility]ER)[address] [place] [address] Hemoglobin (Bld) [Mass/Vol] 5.8 g/dL Invalid Interpretation Code 12.0-15.0 [facility] Comment on above: Performed By: #### L [id number] ####[facility] ([facility]ER)[address] [place] [address] MAGNESIUMon 07-08-2024 Magnesium [Mass/Vol] 2.1 mg/dL Normal 1.9-2.7 [facility] Comment on above: Performed By: #### L [id number] ####[facility] ([facility])[address] [place] [address] MANUAL DIFFERENTIALon 2023 ANISOCYTOSIS PRESENCE IN BLOOD BY LIGHT MICROSCOPY Moderate Normal [facility] Comment on above: Performed By: #### L [id number] ####[facility] ([facility])[address] [place] [address] BASOPHILS (10*3/UL) IN BLOOD BY CALCULATION 0.00 10*3/uL Normal 0.00-0.20 [facility] Comment on above: Performed By: #### L [id number] ####[facility] ([facility])[address] [place] [address] BASOPHILS/100 LEUKOCYTES IN BLOOD BY AUTOMATED COUNT 0.0 % Normal 0.0-1.0 [facility] Comment on above: Performed By: #### L [id number] ####[facility] ([facility])[address] [place] [address] EOSINOPHILS (10*3/UL) IN BLOOD BY CALCULATION 0.00 10*3/uL Normal 0.00-0.50 [facility] Comment on above: Performed By: #### L [id number] ####[facility] ([facility])[address] [place] [address] EOSINOPHILS/100 LEUKOCYTES IN BLOOD BY AUTOMATED COUNT 0.0 % Normal 0.0-6.0 [facility] Comment on above: Performed By: #### L [id number] ####[facility] ([facility])[address] [place] [address] HYPOCHROMIA (PRESENCE) IN BLOOD BY LIGHT MICROSCOPY Slight Normal [facility] Comment on above: Performed By: #### L [id number] ####[facility] ([facility])[address] [place] [address] LYMPHOCYTES (10*3/UL) IN BLOOD BY CALCULATION 1.94 10*3/uL Normal 1.20-4.00 [facility] Comment on above: Performed By: #### L [id number] ####[facility] ([facility])[address] [place] [address] LYMPHOCYTES/100 LEUKOCYTES IN BLOOD BY AUTOMATED COUNT 13.9 % Low 20.0-45.0 [facility] Comment on above: Performed By: #### L [id number] ####[facility] ([facility])[address] [place] [address] METAMYELOCYTES (10*3/UL) IN BLOOD BY CALCULATION 0.39 10*3/uL High 0.00 [facility] Comment on above: Performed By: #### L [id number] ####[facility] ([facility])[address] [place] [address] METAMYELOCYTES/100 LEUKOCYTES IN BLOOD CELLAVISION 2.8 % High 0.0-0.0 [facility] Comment on above: Performed By: #### L [id number] ####[facility] ([facility])[address] [place] [address] MONOCYTES (10*3/UL) IN BLOOD BY CALCUATION 0.38 10*3/uL Normal 0.10-1.00 [facility] Comment on above: Performed By: #### L [id number] ####[facility] ([facility])[address] [place] [address] MONOCYTES/100 LEUKOCYTES IN BLOOD BY AUTOMATED COUNT 2.7 % Low 5.0-12.0 [facility] Comment on above: Performed By: #### L [id number] ####[facility] ([facility])[address] [place] [address] MYELOCYTES (10*3/UL) IN BLOOD BY CALCULATION 0.20 10*3/uL High 0.00 [facility] Comment on above: Performed By: #### L [id number] ####[facility] ([facility] [place] [address] MYELOCYTES/100 LEUKOCYTES IN BLOOD CELLAVISION 1.4 % High 0.0-0.0 [facility] Comment on above: Performed By: #### L [id number] ####[facility] ([facility])[address] [place] [address] NEUTROPHILS (10*3/UL) IN BLOOD BY CALCULATION 10.8 10*3/uL High 1.6-7.6 [facility] Comment on above: Performed By: #### L [id number] ####[facility] ([facility])[address] [place] [address] NEUTROPHILS/100 LEUKOCYTES IN BLOOD BY AUTOMATED COUNT 77.8 % High 40.0-72.0 [facility] Comment on above: Performed By: #### L [id number] ####[facility] ([facility])[address] [place] [address] NUCLEATED RED BLOOD CELLS IN BLOOD BY LIGHT MICROSCOPY Present Normal [facility] Comment on above: Performed By: #### L [id number] ####[facility] ([facility])[address] [place] [address] PLASMA CELLS/100 LEUKOCYTES IN BLOOD 0 % Normal 0 [facility] Comment on above: Performed By: #### L [id number] ####[facility] ([facility])[address] [place] [address] PLATELETS GIANT PRESENCE IN BLOOD BY LIGHT MICROSCOPY Present Normal [facility] Comment on above: Performed By: #### L [id number] ####[facility] ([facility])[address] [place] [address] POIKILOCYTOSIS (PRESENCE) IN BLOOD BY LIGHT MICROSCOPY Slight Normal [facility] Comment on above: Performed By: #### L [id number] ####[facility] ([facility])[address] [place] [address] POLYCHROMASIA IN BLOOD BY LIGHT MICROSCOPY Slight Normal [facility] Comment on above: Performed By: #### L [id number] ####[facility] [place] [address] PROMYELOCYTES (10*3/UL) IN BLOOD BY CALCULATION 0.20 10*3/uL High 0.00 [facility] Comment on above: Performed By: #### L [id number] ####[facility] [place] [address] PROMYELOCYTES/100 LEUKOCYTES IN BLOOD CELLAVISION 1.4 % High 0.0-0.0 [facility] Comment on above: Performed By: #### L [id number] ####[facility] ([facility])[address] [place] [address] VARIANT LYMPHOCYTES (10*3/UL) IN BLOOD BY CALCULATION 0.00 10*3/uL Normal 0.00 [facility] Comment on above: Performed By: #### L [id number] ####[facility] ([facility])[address] [place] [address] VARIANT LYMPHOCYTES/100 LEUKOCYTES IN BLOOD CELLAVISION 0.0 % Normal 0.0-0.0 [facility] Comment on above: Performed By: #### L [id number] ####[facility] ([facility])[address] [place] [address] NURSNOTEon 11-20-2023 NURSNOTE [facility] NURSNOTE Patient has critical HGB of 5.8. DPOA was contacted at 0150 and did not sweet pickle maker to get consent for blood transfusion. Will transfuse emergently. [facility] PATHOLOGY REVIEWon PATHOLOGY REVIEW Electronically christina d by Viktoriya Dominguez MD on 11/20/23 at 12:12 PM. [facility] Comment on above: Performed By: #### L [id number] ####[facility] [facility] [address] PHOSPHORUSon 11-20-2023 Magnesium [Mass/Vol] 3.2 mg/dL Normal 2.5-5.0 [facility] Comment on above: Performed By: #### L [id number] ####[facility] ([facility])[address] [place] [address] PROTIME-INRon 11-20-2023 INR IN PPP BY COAGULATION ASSAY 3.65 High 0.90-1.10 [facility] Comment on above: Result Comment: [facility] P RECOMMENDED INR FOR WARFARIN THERAPY CONDITION [...] ####[facility] (BEAKER)[address] [place] [address] PROTHROMBIN TIME (PT) IN PPP BY COAGULATION ASSAY 36.6 Seconds High 12.3-14.8 [facility] Comment on above: Performed By: #### L [id number] ####[facility] (BE[facility]ER)[address] [place] [address] INR IN PPP BY COAGULATION ASSAY 4.24 High 0.90-1.10 [facility] Comment on above: Result Comment: [facility] P RECOMMENDED INR FOR WARFARIN THERAPY CONDITION [...] [id number] ####[facility] ([facility])[address] [place] [address] PROTHROMBIN TIME (PT) IN PPP BY COAGULATION ASSAY 41.1 Seconds High 12.3-14.8 [facility] Comment on above: Performed By: #### L [id number] ####[facility] ([facility])[address] [place] [address] 30on 11-19-2023 30 Normal [facility] BASIC METABOLIC PANELon 07-0 Anion gap [Moles/Vol] 14 mmol/L Normal 7-20 [facility] Comment on above: Performed By: #### L [id number] ####[facility] ([facility])[address] [place] [address] Calcium [Mass/Vol] 6.9 mg/dL Low 8.6-10.3 [facility] Comment on above: Performed By: #### L [id number] ####[facility] ([facility])[address] [place] [address] Chloride [Moles/Vol] 99 mmol/L Normal 98-107 [facility] Comment on above: Performed By: #### L [id number] ####[facility] ([facility] [place] [address] CO2 [Moles/Vol] 28 mmol/L Normal 21-31 [facility] Comment on above: Performed By: #### L [id number] ####[facility] ([facility] [place] [address] Creatinine [Mass/Vol] 2.03 mg/dL High 0.60-1.20 [facility] Comment on above: Performed By: #### L [id number] ####[facility] ([facility])[address] [place] [address] GLOMERULAR FILTRATION RATE ML/MIN/1.73 SQ M.PREDICTED 24.5 mL/min/1.73m*2 Low >60.0 [facility] Comment on above: Result Comment: [facility]???s estimated glomerular filtration rate (eGFR) [...] AB15 ####[facility] ([facility])[address] [place] [address] Glucose [Mass/Vol] 107 mg/dL High 70-100 [facility] Comment on above: Performed By: #### L [id number] ####[facility] ([facility])[address] [place] [address] Potassium [Moles/Vol] 3.0 mmol/L Low 3.5-5.1 [facility] Comment on above: Performed By: #### L [id number] ####[facility] ([facility])[address] [place] [address] Sodium [Moles/Vol] 138 mmol/L Normal 136-145 [facility] Comment on above: Performed By: #### L [id number] ####[facility] ([facility])[address] [place] [address] Urea nitrogen [Mass/Vol] 49 mg/dL High 7-25 [facility] Comment on above: Performed By: #### L [id number] ####[facility] ([facility]AKER)[address] [place] [address] UREA NITROGEN/CREATININE (MASS RATIO) IN SER/PLAS 24.1 Normal [facility] Comment on above: Performed By: #### L [id number] ####[facility] ([facility] [place] [address] CALCIUM, IONIZEDon CALCIUM IONIZED (MMOL/L) IN BLOOD 0.91 mmol/L Low 1.15-1.33 [facility] Comment on above: Performed By: #### L [id number] ####[facility] RESPIRATORY [id number] [place] [address] [place] CBC WITH AUTO DIFFERENTIALon 11-19-2023 Erythrocyte distribution width (RBC) [Ratio] 22.3 % High 11.5-15.0 [facility] Comment on above: Performed By: #### L [id number] ####[facility] ([facility])[address] [place] [address] ERYTHROCYTE MEAN CORPUSCULAR HEMOGLOBIN CONCENTRATION (G/DL) BY AUTOMATED 31.6 g/dL Low 32.0-35.0 [facility] Comment on above: Performed By: #### L [id number] ####[facility] ([facility])[address] [place] [address] Hematocrit (Bld) [Volume fraction] 19.6 % Low 36.0-48.0 [facility] Comment on above: Performed By: #### L [id number] ####[facility] ([facility])[address] [place] [address] Hemoglobin (Bld) [Mass/Vol] 6.2 g/dL Low 12.0-15.0 [facility] Comment on above: Performed By: #### L [id number] ####[facility] ([facility] [place] [address] MCH (RBC) [Entitic mass] 29.2 pg Normal 27.0-33.0 [facility] Comment on above: Performed By: #### L [id number] ####[facility] ([facility] [place] [address] MCV (RBC) [Entitic vol] 92.5 fL Normal 82.0-98.0 [facility] Comment on above: Performed By: #### L [id number] ####[facility] ([facility])[address] [place] [address] NRBC (PER 100 WBCS) BY AUTOMATED COUNT 9.5 % High 0 [facility] Comment on above: Performed By: #### L [id number] ####[facility] ([facility])[address] [place] [address] PLATELETS (10*3/UL) IN BLOOD AUTOMATED COUNT 123 10*3/uL Low 150-400 [facility] Comment on above: Performed By: #### L [id number] ####[facility] ([facility])[address] [place] [address] RBC (Bld) [#/Vol] 2.12 10*6/uL Low 3.80-5.00 [facility] Comment on above: Performed By: #### L [id number] ####[facility] ([facility])[address] [place], [place] [address] WBC (Bld) [#/Vol] 18.42 10*3/uL High 4.00-10.60 [facility] Comment on above: Performed By: #### L [id number] ####[facility] ([facility])[address] [place] [address] HEPATIC FUNCTION PANELon Albumin [Mass/Vol] 2.1 g/dL Low 3.5-5.7 [facility] Comment on above: Performed By: #### L [id number] ####[facility] ([facility])[address] [place] [address] ALP [Catalytic activity/Vol] 97 U/L Normal 34-104 [facility] Comment on above: Performed By: #### L [id number] ####[facility] ([facility])[address] [place] [address] ALT [Catalytic activity/Vol] 29 U/L Normal 7-52 [facility] Comment on above: Performed By: #### L [id number] ####[facility] ([facility])[address] [place] [address] AST [Catalytic activity/Vol] 89 U/L High 13-39 [facility] Comment on above: Performed By: #### L [id number] ####[facility] ([facility])[address] [place] [address] Bilirubin [Mass/Vol] 0.9 mg/dL Normal 0.3-1.0 [facility] Comment on above: Performed By: #### L [id number] ####[facility] ([facility])[address] [place] [address] Magnesium [Mass/Vol] 0.4 mg/dL High 0-0.2 [facility] Comment on above: Performed By: #### L [id number] ####[facility] ([facility])[address] [place] [address] Protein [Mass/Vol] 4.0 g/dL Low 6.0-8.3 [facility] Comment on above: Performed By: #### L [id number] ####[facility] ([facility])[address] [place] [address] LACTIC ACID WITH 4 HOUR REFL EXon 11-19-2023 LACTATE (MMOL/L) IN SER/PLAS 0.9 mmol/L Normal 0.5-2.2 [facility] Comment on above: Performed By: #### L [id number] ####[facility] ([facility])[address] [place] [address] MAGNESIUMon 11-19-2023 Magnesium [Mass/Vol] 1.9 mg/dL Normal 1.9-2.7 [facility] Comment on above: Performed By: #### L [id number] ####[facility] ([facility])[address] [place] [address] MANUAL DIFFERENTIALon 2023 ANISOCYTOSIS PRESENCE IN BLOOD BY LIGHT MICROSCOPY Moderate Normal [facility] Comment on above: Performed By: #### L [id number] ####[facility] ([facility])[address] [place] [address] BASOPHILS (10*3/UL) IN BLOOD BY CALCULATION 0.00 10*3/uL Normal 0.00-0.20 [facility] Comment on above: Performed By: #### L [id number] ####[facility] ([facility])[address] [place] [address] BASOPHILS/100 LEUKOCYTES IN BLOOD BY AUTOMATED COUNT 0.0 % Normal 0.0-1.0 [facility] Comment on above: Performed By: #### L [id number] ####[facility] ([facility])[address] [place] [address] EOSINOPHILS (10*3/UL) IN BLOOD BY CALCULATION 0.00 10*3/uL Normal 0.00-0.50 [facility] Comment on above: Performed By: #### L [id number] ####[facility] ([facility])[address] [place] [address] EOSINOPHILS/100 LEUKOCYTES IN BLOOD BY AUTOMATED COUNT 0.0 % Normal 0.0-6.0 [facility] Comment on above: Performed By: #### L [id number] ####[facility] ([facility])[address] [place] [address] HYPOCHROMIA (PRESENCE) IN BLOOD BY LIGHT MICROSCOPY Moderate Normal [facility] Comment on above: Performed By: #### L [id number] ####[facility] ([facility])[address] [place] [address] LYMPHOCYTES (10*3/UL) IN BLOOD BY CALCULATION 1.23 10*3/uL Normal 1.20-4.00 [facility] Comment on above: Performed By: #### L [id number] ####[facility] ([facility])[address] [place] [address] LYMPHOCYTES/100 LEUKOCYTES IN BLOOD BY AUTOMATED COUNT 6.7 % Low 20.0-45.0 [facility] Comment on above: Performed By: #### L [id number] ####[facility] ([facility])[address] [place] [address] MONOCYTES (10*3/UL) IN BLOOD BY CALCUATION 0.87 10*3/uL Normal 0.10-1.00 [facility] Comment on above: Performed By: #### L [id number] ####[facility] ([facility])[address] [place] [address] MONOCYTES/100 LEUKOCYTES IN BLOOD BY AUTOMATED COUNT 4.7 % Low 5.0-12.0 [facility] Comment on above: Performed By: #### L [id number] ####[facility] ([facility])[address] [place] [address] NEUTROPHILS (10*3/UL) IN BLOOD BY CALCULATION 15.8 10*3/uL High 1.6-7.6 [facility] Comment on above: Performed By: #### L [id number] ####[facility] ([facility])[address] [place] [address] NEUTROPHILS/100 LEUKOCYTES IN BLOOD BY AUTOMATED COUNT 85.9 % High 40.0-72.0 [facility] Comment on above: Performed By: #### L [id number] ####[facility] ([facility])[address] [place] [address] NUCLEATED RED BLOOD CELLS IN BLOOD BY LIGHT MICROSCOPY Present Normal [facility] Comment on above: Performed By: #### L [id number] ####[facility] ([facility])[address] [place] [address] PLASMA CELLS/100 LEUKOCYTES IN BLOOD 0 % Normal 0 [facility] Comment on above: Performed By: #### L [id number] ####[facility] ([facility])[address] [place] [address] PLATELETS GIANT PRESENCE IN BLOOD BY LIGHT MICROSCOPY Present Normal [facility] Comment on above: Performed By: #### L [id number] ####[facility] ([facility])[address] [place] [address] POIKILOCYTOSIS (PRESENCE) IN BLOOD BY LIGHT MICROSCOPY Slight Normal [facility] Comment on above: Performed By: #### L [id number] ####[facility] [place] [place] [address] POLYCHROMASIA IN BLOOD BY LIGHT MICROSCOPY Slight Normal [facility] Comment on above: Performed By: #### L [id number] ####[facility] ([facility])[address] [place] [address] PROMYELOCYTES (10*3/UL) IN BLOOD BY CALCULATION 0.50 10*3/uL High 0.00 [facility] Comment on above: Performed By: #### L [id number] ####[facility] ([facility])[address] [place] [address] PROMYELOCYTES/100 LEUKOCYTES IN BLOOD CELLAVISION 2.7 % High 0.0-0.0 [facility] Comment on above: Performed By: #### L [id number] ####[facility] ([facility])[address] [place] [address] VARIANT LYMPHOCYTES (10*3/UL) IN BLOOD BY CALCULATION 0.00 10*3/uL Normal 0.00 [facility] Comment on above: Performed By: #### L [id number] ####[facility] ([facility])[address] [place] [address] VARIANT LYMPHOCYTES/100 LEUKOCYTES IN BLOOD CELLAVISION 0.0 % Normal 0.0-0.0 [facility] Comment on above: Performed By: #### L [id number] ####[facility] ([facility])[address] [place] [address] NURSNOTEon 11-19-2023 NURSNOTE Normal [facility] PHOSPHORUSon 11-19-2023 Magnesium [Mass/Vol] 4.1 mg/dL Normal 2.5-5.0 [facility] Comment on above: Performed By: #### L [id number] ####[facility] ([facility])[address] [place] [address] POTASSIUMon 11-19-2023 Potassium [Moles/Vol] 3.7 mmol/L Normal 3.5-5.1 [facility] Comment on above: Performed By: #### L [id number] ####[facility] (SANDRA)[address] [place] [address] PROTIME-INRon 11-19-2023 INR IN PPP BY COAGULATION ASSAY 4.04 High 0.90-1.10 [facility] Comment on above: Result Comment: [...] [id number] ####[facility] (SANDRA)[address] [place] [address] PROTHROMBIN TIME (PT) IN PPP BY COAGULATION ASSAY 39.6 Seconds High 12.3-14.8 [facility] Comment on above: Performed By: #### L [id number] ####[facility] (SANDRA)[address] [place] [address] TYPE AND SCREENon 11-19-2023 AB SCREEN Negative Normal [facility] Comment on above: Performed By: #### L [id number] ####[facility] BLOOD BANK, ABO group Nom (Bld) O Normal [facility] Comment on above: Performed By: #### L [id number] ####[facility] BLOOD BANK, RH TYPE IN BLOOD Positive Normal [facility] Comment on above: Performed By: #### L [id number] ####[facility] BLOOD BANK, 11-18-2023 30 [facility] on 11-17-2023 30 [facility] 30 [facility] 30 [facility] CONSULTon 11-17-2023 CONSULT [facility] NURSNOTEon 11-17-2023 NURSNOTE Patient states frustration with having to do assessment, and meds stating she doesn't want to be told what to do . Patient also refusing oxygen at this time. [facility] 11-16-2023 30 [facility] 30on 11-15-2023 30 [facility] 30 [facility] ANESon 11-15-2023 ANES [facility] ARTERIAL BLOOD GAS WITH CO-O XIMETRYon 11-15-2023 Base excess Calc (Bld) [Moles/Vol] -16.92750 mmol/L Low -2.0-3.0 [facility] Comment on above: Performed By: #### L [id number] ####[facility] RESPIRATORY [id number] [place] [address] [facility] CARBOXYHEMOGLOBIN/HEM OGLOBIN TOTAL % IN BLOOD 1.3 % Normal 0.0-3.0 [facility] Comment on above: Performed By: #### L [id number] ####[facility] RESPIRATORY [id number] [place] [address] [place] CO2 (Bld) [Partial pressure] 32 mm[Hg] Low 35-48 [facility] Comment on above: Performed By: #### L [id number] ####[facility] RESPIRATORY [id number] [place] [address] [place] DEOXYGENATED HEMOGLOBIN IN BLOOD 4.6 % Normal 1-5 [facility] Comment on above: Performed By: #### L [id number] ####[facility] RESPIRATORY [id number] [address] [facility] HCO3 (Bld) [Moles/Vol] 11.1 mmol/L Low 21.0-28.0 [facility] Comment on above: Performed By: #### L [id number] ####[facility] RESPIRATORY [id number] [facility] [address] [facility] Hemoglobin (Bld) [Mass/Vol] 8.9 g/dL Low 11.7-17.4 [facility] Comment on above: Performed By: #### L [id number] ####[facility] RESPIRATORY [id number] [facility] [address] [place] METHEMOGLOBIN/100 IN BLOOD 0.3 % Normal 0.0-1.5 [facility] Comment on above: Performed By: #### L [id number] ####[facility] RESPIRATORY [id number] [place] [address] [facility] Oxygen (Bld) [Partial pressure] 75 mm[Hg] Low 83-100 [facility] Comment on above: Performed By: #### L [id number] ####[facility] RESPIRATORY [id number] [place] [address] [facility] OXYGEN SATURATION (%) IN ARTERIAL BLOOD 95.3 % Normal 94.0-98.0 [facility] Comment on above: Performed By: #### L [id number] ####[facility] RESPIRATORY [id number] [place] [address] [facility] OXYGENATED HEMOGLOBIN IN BLOOD 93.8 % Normal 90.0-95.0 [facility] Comment on above: Performed By: #### L [id number] ####[facility] RESPIRATORY [id number] [place] [address] [place] pH (Bld) 7.15 [pH] Invalid Interpretation Code 7.35-7.45 [facility] Comment on above: Performed By: #### L [id number] ####[facility] RESPIRATORY [id number] [place] [facility] [place] [address] [facility] SOURCE OF OXYGEN Room Air Normal [facility] Comment on above: Performed By: #### L [id number] ####[facility] RESPIRATORY [id number] [place] [address] [facility] Base excess Calc (Bld) [Moles/Vol] -18.31937 mmol/L Low -2.0-3.0 [facility] Comment on above: Performed By: #### L [id number] ####[facility] RESPIRATORY [id number] [place] [address] [facility] CARBOXYHEMOGLOBIN/HEM OGLOBIN TOTAL % IN BLOOD 1.7 % Normal 0.0-3.0 [facility] Comment on above: Performed By: #### L [id number] ####[facility] RESPIRATORY [id number] [place] [address] [facility] CO2 (Bld) [Partial pressure] 27 mm[Hg] Low 35-48 [facility] Comment on above: Performed By: #### L [id number] ####[facility] RESPIRATORY [id number] [place] [address] [facility] DEOXYGENATED HEMOGLOBIN IN BLOOD 1.6 % Normal 1-5 [facility] Comment on above: Performed By: #### L [id number] ####[facility] RESPIRATORY [id number] [place] [address] [facility] HCO3 (Bld) [Moles/Vol] 9.0 mmol/L Low 21.0-28.0 [facility] Comment on above: Performed By: #### L [id number] ####[facility] RESPIRATORY [id number] [place] [address] [facility] Hemoglobin (Bld) [Mass/Vol] 9.6 g/dL Low 11.7-17.4 [facility] Comment on above: Performed By: #### L [id number] ####[facility] RESPIRATORY [id number] [place] [address] [place] METHEMOGLOBIN/100 IN BLOOD 0.8 % Normal 0.0-1.5 [facility] Comment on above: Performed By: #### L [id number] ####[facility] RESPIRATORY [id number] [place] [address] [facility] Oxygen (Bld) [Partial pressure] 98 mm[Hg] Normal 83-100 [facility] Comment on above: Performed By: #### L [id number] ####[facility] RESPIRATORY [id number] [place] [address] [facility] OXYGEN SATURATION (%) IN ARTERIAL BLOOD 98.4 % High 94.0-98.0 [facility] Comment on above: Performed By: #### L [id number] ####[facility] RESPIRATORY [id number] [place] [address] [facility] OXYGENATED HEMOGLOBIN IN BLOOD 95.9 % High 90.0-95.0 [facility] Comment on above: Performed By: #### L [id number] ####[facility] RESPIRATORY [id number] [place] [address] [facility] pH (Bld) 7.13 [pH] Invalid Interpretation Code 7.35-7.45 [facility] Comment on above: Performed By: #### L [id number] ####[facility] RESPIRATORY [id number] [place] [address] [facility] SOURCE OF OXYGEN Room Air Normal [facility] Comment on above: Performed By: #### L [id number] ####[facility] RESPIRATORY [id number] [place] [address] [facility] Base excess Calc (Bld) [Moles/Vol] -19.12051 mmol/L Low -2.0-3.0 [facility] Comment on above: Performed By: #### L [id number] ####[facility] RESPIRATORY [id number] [place] [address] [facility] CARBOXYHEMOGLOBIN/HEM OGLOBIN TOTAL % IN BLOOD 1.9 % Normal 0.0-3.0 [facility] Comment on above: Performed By: #### L [id number] ####[facility] RESPIRATORY [id number] [place] [address] [facility] CO2 (Bld) [Partial pressure] 30 mm[Hg] Low 35-48 [facility] Comment on above: Performed By: #### L [id number] ####[facility] RESPIRATORY [id number] [place] [address] [facility] DEOXYGENATED HEMOGLOBIN IN BLOOD 2.6 % Normal 1-5 [facility] Comment on above: Performed By: #### L [id number] ####[facility] RESPIRATORY [id number] [place] [address] [facility] HCO3 (Bld) [Moles/Vol] 8.9 mmol/L Low 21.0-28.0 [facility] Comment on above: Performed By: #### L [id number] ####[facility] RESPIRATORY [id number] [place], [place] [address] Hemoglobin (Bld) [Mass/Vol] 9.8 g/dL Low 11.7-17.4 [facility] Comment on above: Performed By: #### L [id number] ####[facility] RESPIRATORY [id number] [place], [place] [address] METHEMOGLOBIN/100 IN BLOOD 0.7 % Normal 0.0-1.5 [facility] Comment on above: Performed By: #### L [id number] ####[facility] RESPIRATORY [id number] [place], [place] [address] Oxygen (Bld) [Partial pressure] 86 mm[Hg] Normal 83-100 [facility] Comment on above: Performed By: #### L [id number] ####[facility] RESPIRATORY [id number] [place] [address] [facility] OXYGEN SATURATION (%) IN ARTERIAL BLOOD 97.3 % Normal 94.0-98.0 [facility] Comment on above: Performed By: #### L [id number] ####[facility] RESPIRATORY [id number] [place] [address] [facility] OXYGENATED HEMOGLOBIN IN BLOOD 94.8 % Normal 90.0-95.0 [facility] Comment on above: Performed By: #### L [id number] ####[facility] RESPIRATORY [id number] [place] [address] [facility] pH (Bld) 7.08 [pH] Invalid Interpretation Code 7.35-7.45 [facility] Comment on above: Performed By: #### L [id number] ####[facility] RESPIRATORY [id number] [place], [place] [address] SOURCE OF OXYGEN Room Air Normal [facility] Comment on above: Performed By: #### L [id number] ####[facility] RESPIRATORY [id number] [place] [address] [facility] Base excess Calc (Bld) [Moles/Vol] -19.25694 mmol/L Low -2.0-3.0 [facility] Comment on above: Performed By: #### L [id number] ####[facility] RESPIRATORY [id number] [place], [place] [address] CARBOXYHEMOGLOBIN/HEM OGLOBIN TOTAL % IN BLOOD 1.7 % Normal 0.0-3.0 [facility] Comment on above: Performed By: #### L [id number] ####[facility] RESPIRATORY [id number] [place], [place] [address] CO2 (Bld) [Partial pressure] 27 mm[Hg] Low 35-48 [facility] Comment on above: Performed By: #### L [id number] ####[facility] RESPIRATORY [id number] [place], [place] [address] DEOXYGENATED HEMOGLOBIN IN BLOOD 0.1 % Low 1-5 [facility] Comment on above: Performed By: #### L [id number] ####[facility] RESPIRATORY [id number] [place] [address] [facility] HCO3 (Bld) [Moles/Vol] 8.6 mmol/L Low 21.0-28.0 [facility] Comment on above: Performed By: #### L [id number] ####[facility] RESPIRATORY [id number] [place] [address] [facility] Hemoglobin (Bld) [Mass/Vol] 8.0 g/dL Low 11.7-17.4 [facility] Comment on above: Performed By: #### L [id number] ####[facility] RESPIRATORY [id number] [place] [address] [facility] METHEMOGLOBIN/100 IN BLOOD 0.2 % Normal 0.0-1.5 [facility] Comment on above: Performed By: #### L [id number] ####[facility] RESPIRATORY [id number] [place] [address] [place] Oxygen (Bld) [Partial pressure] 266 mm[Hg] High 83-100 [facility] Comment on above: Performed By: #### L [id number] ####[facility] RESPIRATORY [id number] [place] [address] [facility] OXYGEN SATURATION (%) IN ARTERIAL BLOOD 99.9 % High 94.0-98.0 [facility] Comment on above: Performed By: #### L [id number] ####[facility] RESPIRATORY [id number] [place] [address] [facility] OXYGENATED HEMOGLOBIN IN BLOOD 98.0 % High 90.0-95.0 [facility] Comment on above: Performed By: #### L [id number] ####[facility] RESPIRATORY [id number] [place] [address] [facility] pH (Bld) 7.11 [pH] Invalid Interpretation Code 7.35-7.45 [facility] Comment on above: Performed By: #### L [id number] ####[facility] RESPIRATORY [id number] [place] [address] [facility] SOURCE OF OXYGEN Non-rebreather mask Normal [facility] Comment on above: Performed By: #### L [id number] ####[facility] RESPIRATORY [id number] [place] [address] [facility] ARTERIAL BLOOD GAS WITH IONI ZED CALCIUMon 11-15-2023 Base excess Calc (Bld) [Moles/Vol] -5.2000 mmol/L Low -2.0-3.0 [facility] Comment on above: Performed By: #### L [id number] ####[facility] RESPIRATORY [id number] [place] [address] [place] CALCIUM IONIZED (MMOL/L) IN BLOOD 1.07 mmol/L Low 1.15-1.33 [facility] Comment on above: Performed By: #### L [id number] ####[facility] RESPIRATORY [id number] [place] [address] [facility] CO2 (Bld) [Partial pressure] 32 mm[Hg] Low 35-48 [facility] Comment on above: Performed By: #### L [id number] ####[facility] RESPIRATORY [id number] [place] [address] [facility] HCO3 (Bld) [Moles/Vol] 18.9 mmol/L Low 21.0-28.0 [facility] Comment on above: Performed By: #### L [id number] ####[facility] RESPIRATORY [id number] [place] [address] [facility] Oxygen (Bld) [Partial pressure] 78 mm[Hg] Low 83-100 [facility] Comment on above: Performed By: #### L [id number] ####[facility] RESPIRATORY [id number] [place] [address] [facility] OXYGEN SATURATION (%) IN ARTERIAL BLOOD 98.2 % High 94.0-98.0 [facility] Comment on above: Performed By: #### L [id number] ####[facility] RESPIRATORY [id number] [place] [address] [facility] pH (Bld) 7.38 [pH] Normal 7.35-7.45 [facility] Comment on above: Performed By: #### L [id number] ####[facility] RESPIRATORY [id number] [place] [address] [facility] SOURCE OF OXYGEN Room Air Normal [facility] Comment on above: Performed By: #### L [id number] ####[facility] RESPIRATORY [id number] [place] [address] [facility] B-TYPE NATRIURETIC PEPTIDEon 11-15-2023 Natriuretic peptide B (Bld) [Mass/Vol] 165 pg/mL High 0-100 [facility] Comment on above: Performed By: #### L [id number] ####[facility] LAB (BEAKER)[address] [place] [address] Natriuretic peptide B (Bld) [Mass/Vol] 175 pg/mL High 0-100 [facility] Comment on above: Performed By: #### L [id number] ####[facility] LAB (BEAKER)[address] [place] [address] BASIC METABOLIC PANELon 07-0 Anion gap [Moles/Vol] 25 mmol/L High 7-20 [facility] Comment on above: Performed By: #### L [id number] ####[facility] [place] [address] Calcium [Mass/Vol] 7.4 mg/dL Low 8.6-10.3 [facility] Comment on above: Performed By: #### L [id number] ####[facility] [place] [address] Chloride [Moles/Vol] 108 mmol/L High 98-107 [facility] Comment on above: Performed By: #### L [id number] ####[facility] LAB (BEAKER)[address] [place] [address] CO2 [Moles/Vol] 22 mmol/L Normal 21-31 [facility] Comment on above: Performed By: #### L [id number] ####[facility] [place] [address] Creatinine [Mass/Vol] 1.33 mg/dL High 0.60-1.20 [facility] Comment on above: Performed By: #### L [id number] ####[facility] [place] [address] GLOMERULAR FILTRATION RATE ML/MIN/1.73 SQ M.PREDICTED 40.7 mL/min/1.73m*2 Low >60.0 [facility] Comment on above: Result Comment: [facility]???s estimated glomerular filtration rate (eGFR) [...] AB15 ####[facility] LAB (BEAKER)[address] [place] [address] Glucose [Mass/Vol] 140 mg/dL High 70-100 [facility] Comment on above: Performed By: #### L [id number] ####[facility] LAB (BEAKER)[address] [place] [address] Potassium [Moles/Vol] 3.4 mmol/L Low 3.5-5.1 [facility] Comment on above: Performed By: #### L [id number] ####[facility] LAB (BEAKER)[address] [place] [address] Sodium [Moles/Vol] 152 mmol/L High 136-145 [facility] Comment on above: Performed By: #### L [id number] ####[facility] LAB (BEAKER)[address] [place] [address] Urea nitrogen [Mass/Vol] 30 mg/dL High 7-25 [facility] Comment on above: Performed By: #### L [id number] ####[facility] LAB (BEAKER)[address] [place] [address] UREA NITROGEN/CREATININE (MASS RATIO) IN SER/PLAS 22.6 Normal [facility] Comment on above: Performed By: #### L [id number] ####[facility] LAB (BEAKER)[address] [place] [address] Anion gap [Moles/Vol] 28 mmol/L High 7-20 [facility] Comment on above: Performed By: #### L [id number] ####[facility] LAB (BEAKER)[address] [place] [address] Calcium [Mass/Vol] 6.7 mg/dL Low 8.6-10.3 [facility] Comment on above: Performed By: #### L [id number] ####[facility] LAB (BEAKER)[address] [place] [address] Chloride [Moles/Vol] 112 mmol/L High 98-107 [facility] Comment on above: Performed By: #### L [id number] ####[facility] [place] [address] CO2 [Moles/Vol] 10 mmol/L Invalid Interpretation Code [facility] Comment on above: Performed By: #### L [id number] ####[facility] LAB ([facility])[address] [place] [address] Creatinine [Mass/Vol] 1.18 mg/dL Normal 0.60-1.20 [facility] Comment on above: Performed By: #### L [id number] ####[facility] LAB ([facility])[address] [place] [address] GLOMERULAR FILTRATION RATE ML/MIN/1.73 SQ M.PREDICTED 47.0 mL/min/1.73m*2 Low >60.0 [facility] Comment on above: Result Comment: [facility]???s estimated glomerular filtration rate (eGFR) [...] AB15 ####[facility] ([facility] [place] [address] Glucose [Mass/Vol] 239 mg/dL High 70-100 [facility] Comment on above: Performed By: #### L [id number] ####[facility] ([facility] [place] [address] Potassium [Moles/Vol] 3.7 mmol/L Normal 3.5-5.1 [facility] Comment on above: Performed By: #### L [id number] ####[facility] LAB ([facility])[address] [place] [address] Sodium [Moles/Vol] 146 mmol/L High 136-145 [facility] Comment on above: Performed By: #### L [id number] ####[facility] ([facility] [place] [address] Urea nitrogen [Mass/Vol] 26 mg/dL High 7-25 [facility] Comment on above: Performed By: #### L [id number] ####[facility] ([facility])[address] [place] [address] UREA NITROGEN/CREATININE (MASS RATIO) IN SER/PLAS 22.0 Normal [facility] Comment on above: Performed By: #### L [id number] ####[facility] LAB ([facility])[address] [place] [address] Anion gap [Moles/Vol] 16 mmol/L Normal 7-20 [facility] Comment on above: Performed By: #### L [id number] ####[facility] ([facility])[address] [place] [address] Calcium [Mass/Vol] 7.2 mg/dL Low 8.6-10.3 [facility] Comment on above: Performed By: #### L [id number] ####[facility] [place] [address] Chloride [Moles/Vol] 113 mmol/L High 98-107 [facility] Comment on above: Performed By: #### L [id number] ####[facility] LAB (BEAKER)[address] [place] [address] CO2 [Moles/Vol] 18 mmol/L Low 21-31 [facility] Comment on above: Performed By: #### L [id number] ####[facility] LAB (BEAKER)[address] [place] [address] Creatinine [Mass/Vol] 1.00 mg/dL Normal 0.60-1.20 [facility] Comment on above: Performed By: #### L [id number] ####[facility] LAB (BEAKER)[address] [place] [address] GLOMERULAR FILTRATION RATE ML/MIN/1.73 SQ M.PREDICTED 57.3 mL/min/1.73m*2 Low >60.0 [facility] Comment on above: Result Comment: [facility]???s estimated glomerular filtration rate (eGFR) [...] AB15 ####[facility] LAB (BEAKER)[address] [place] [address] Glucose [Mass/Vol] 205 mg/dL High 70-100 [facility] Comment on above: Performed By: #### L [id number] ####[facility] ([facility] [place] [address] Potassium [Moles/Vol] 3.9 mmol/L Normal 3.5-5.1 [facility] Comment on above: Performed By: #### L [id number] ####[facility] LAB (BEAKER)[address] [place] [address] Sodium [Moles/Vol] 143 mmol/L Normal 136-145 [facility] Comment on above: Performed By: #### L [id number] ####[facility] LAB (BEAKER)[address] [place] [address] Urea nitrogen [Mass/Vol] 27 mg/dL High 7-25 [facility] Comment on above: Performed By: #### L [id number] ####[facility] LAB (BEAKER)[address] [place] [address] UREA NITROGEN/CREATININE (MASS RATIO) IN SER/PLAS 27.0 Normal [facility] Comment on above: Performed By: #### L [id number] ####[facility] LAB (BEAKER)[address] [place] [address] BETA HYDROXYBUTYRATEon 11-14 BETA HYDROXYBUTYRATE (MMOL/L) IN SER/PLAS 0.31 mmol/L High 0.02-0.27 [facility] Comment on above: Performed By: #### L [id number] ####[facility] LAB (BEAKER)[address] [place] [address] BLOOD CULTUREon 11-15-2023 Bacteria identified Cx Nom (Bld) No growth at 5 days Normal [facility] Comment on above: Order Comment: From a different site than #1. Performed By: #### L [id number] ####[facility] LAB ([facility])[address] [place] [address] Bacteria identified Cx Nom (Bld) No growth at 5 days Normal [facility] Comment on above: Performed By: #### L [id number] ####[facility] ([facility])[address] [place] [address] CALCIUM, IONIZEDon CALCIUM IONIZED (MMOL/L) IN BLOOD 1.09 mmol/L Low 1.15-1.33 [facility] Comment on above: Performed By: #### C ALCIUM, IONIZED ####[facility] RESPIRATORY [id number] [place] [address] [facility] CALCIUM IONIZED (MMOL/L) IN BLOOD 1.05 mmol/L Low 1.15-1.33 [facility] Comment on above: Performed By: #### C ALCIUM, IONIZED ####[facility] RESPIRATORY [id number] [place] [address] [place] CALCIUM IONIZED (MMOL/L) IN BLOOD 1.06 mmol/L Low 1.15-1.33 [facility] Comment on above: Performed By: #### C ALCIUM, IONIZED ####[facility] RESPIRATORY [id number] [place] [address] [facility] CALCIUM IONIZED (MMOL/L) IN BLOOD 1.12 mmol/L Low 1.15-1.33 [facility] Comment on above: Performed By: #### C ALCIUM, IONIZED ####[facility] RESPIRATORY [id number] [place] [address] [place] CBCon 11-15-2023 Erythrocyte distribution width (RBC) [Ratio] 21.2 % High 11.5-15.0 [facility] Comment on above: Performed By: #### L [id number] ####[facility] LAB (BEAKER)[address] [place] [address] ERYTHROCYTE MEAN CORPUSCULAR HEMOGLOBIN CONCENTRATION (G/DL) BY AUTOMATED 33.3 g/dL Normal 32.0-35.0 [facility] Comment on above: Performed By: #### L [id number] ####[facility] LAB ([facility])[address] [place] [address] Hematocrit (Bld) [Volume fraction] 21.9 % Low 36.0-48.0 [facility] Comment on above: Performed By: #### L [id number] ####[facility] ([facility] [place] [address] Hemoglobin (Bld) [Mass/Vol] 7.3 g/dL Low 12.0-15.0 [facility] Comment on above: Performed By: #### L [id number] ####[facility] ([facility])[address] [place] [address] IMMATURE PLATELET FRACTION % 9.7 % High 0.8-6.3 [facility] Comment on above: Performed By: #### L [id number] ####[facility] ([facility] [place] [address] MCH (RBC) [Entitic mass] 28.5 pg Normal 27.0-33.0 [facility] Comment on above: Performed By: #### L [id number] ####[facility] ([facility] [place] [address] MCV (RBC) [Entitic vol] 85.5 fL Normal 82.0-98.0 [facility] Comment on above: Performed By: #### L [id number] ####[facility] ([facility])[address] [place] [address] PLATELETS (10*3/UL) IN BLOOD AUTOMATED COUNT 115 10*3/uL Low 150-400 [facility] Comment on above: Performed By: #### L [id number] ####[facility] ([facility] [place] [address] RBC (Bld) [#/Vol] 2.56 10*6/uL Low 3.80-5.00 [facility] Comment on above: Performed By: #### L [id number] ####[facility] ([facility] [place] [address] WBC (Bld) [#/Vol] 34.01 10*3/uL High 4.00-10.60 [facility] Comment on above: Performed By: #### L [id number] ####[facility] ([facility] [place] [address] Erythrocyte distribution width (RBC) [Ratio] 21.1 % High 11.5-15.0 [facility] Comment on above: Performed By: #### L [id number] ####[facility] ([facility])[address] [place] [address] ERYTHROCYTE MEAN CORPUSCULAR HEMOGLOBIN CONCENTRATION (G/DL) BY AUTOMATED 32.2 g/dL Normal 32.0-35.0 [facility] Comment on above: Performed By: #### L [id number] ####[facility] ([facility] [place] [address] Hematocrit (Bld) [Volume fraction] 25.8 % Low 36.0-48.0 [facility] Comment on above: Result Comment: Pt i s in surgery on 11/15/23 Performed By: #### L [id number] ####[facility] (BEAKER)[address] [place] [address] Hemoglobin (Bld) [Mass/Vol] 8.3 g/dL Low 12.0-15.0 [facility] Comment on above: Performed By: #### L [id number] ####[facility] [place] [address] MCH (RBC) [Entitic mass] 27.9 pg Normal 27.0-33.0 [facility] Comment on above: Performed By: #### L [id number] ####[facility] ([facility] [place] [address] MCV (RBC) [Entitic vol] 86.6 fL Normal 82.0-98.0 [facility] Comment on above: Performed By: #### L [id number] ####[facility] ([facility])[address] [place] [address] PLATELETS (10*3/UL) IN BLOOD AUTOMATED COUNT 238 10*3/uL Normal 150-400 [facility] Comment on above: Performed By: #### L [id number] ####[facility] ([facility])[address] [place] [address] RBC (Bld) [#/Vol] 2.98 10*6/uL Low 3.80-5.00 [facility] Comment on above: Performed By: #### L [id number] ####[facility] ([facility])[address] [place] [address] WBC (Bld) [#/Vol] 16.89 10*3/uL High 4.00-10.60 [facility] Comment on above: Performed By: #### L [id number] ####[facility] ([facility])[address] [place] [address] CBC WITH AUTO DIFFERENTIALon 11-15-2023 Erythrocyte distribution width (RBC) [Ratio] 20.5 % High 11.5-15.0 [facility] Comment on above: Performed By: #### L [id number] ####[facility] ([facility])[address] [place] [address] ERYTHROCYTE MEAN CORPUSCULAR HEMOGLOBIN CONCENTRATION (G/DL) BY AUTOMATED 30.3 g/dL Low 32.0-35.0 [facility] Comment on above: Performed By: #### L [id number] ####[facility] ([facility]ER)[address] [place] [address] Hematocrit (Bld) [Volume fraction] 32.0 % Low 36.0-48.0 [facility] Comment on above: Performed By: #### L [id number] ####[facility] (BE[facility]ER)[address] [place] [address] Hemoglobin (Bld) [Mass/Vol] 9.7 g/dL Low 12.0-15.0 [facility] Comment on above: Performed By: #### L [id number] ####[facility] (BEAKER)[address] [place] [address] MCH (RBC) [Entitic mass] 27.6 pg Normal 27.0-33.0 [facility] Comment on above: Performed By: #### L [id number] ####[facility] ([facility]ER)[address] [place] [address] MCV (RBC) [Entitic vol] 90.9 fL Normal 82.0-98.0 [facility] Comment on above: Performed By: #### L [id number] ####[facility] ([facility]ER)[address] [place] [address] NRBC (PER 100 WBCS) BY AUTOMATED COUNT 0.5 % High 0 [facility] Comment on above: Performed By: #### L [id number] ####[facility] ([facility]ER)[address] [place] [address] PLATELETS (10*3/UL) IN BLOOD AUTOMATED COUNT 207 10*3/uL Normal 150-400 [facility] Comment on above: Performed By: #### L [id number] ####[facility] ([facility]ER)[address] [place] [address] RBC (Bld) [#/Vol] 3.52 10*6/uL Low 3.80-5.00 [facility] Comment on above: Performed By: #### L [id number] ####[facility] ([facility]ER)[address] [place] [address] WBC (Bld) [#/Vol] 34.34 10*3/uL High 4.00-10.60 [facility] Comment on above: Performed By: #### L [id number] ####[facility] ([facility])[address] [place] [address] CLOSTRIDIOIDES DIFFICILE DNA AMPLIFICATIONon 11-15-2023 CLOSTRIDIOIDES DIFFICILE (TOXIN A/B) Negative Normal Negative [facility] Comment on above: [...] A gene sequence. Performed By: #### L [id number] ####[facility] ([facility])[address] [place] [address] CONSULTon 11-15-2023 CONSULT Normal [facility] HEPATIC FUNCTION PANELon Albumin [Mass/Vol] 2.1 g/dL Low 3.5-5.7 [facility] Comment on above: Performed By: #### L [id number] ####[facility] ([facility])[address] [place] [address] ALP [Catalytic activity/Vol] 65 U/L Normal 34-104 [facility] Comment on above: Performed By: #### L [id number] ####[facility] ([facility])[address] [place] [address] ALT [Catalytic activity/Vol] 647 U/L High 7-52 [facility] Comment on above: Performed By: #### L [id number] ####[facility] ([facility])[address] [place] [address] AST [Catalytic activity/Vol] 1580 U/L High 13-39 [facility] Comment on above: Performed By: #### L [id number] ####[facility] ([facility] [place] [address] Bilirubin [Mass/Vol] 1.0 mg/dL Normal 0.3-1.0 [facility] Comment on above: Performed By: #### L [id number] ####[facility] ([facility])[address] [place] [address] Magnesium [Mass/Vol] 0.5 mg/dL High 0-0.2 [facility] Comment on above: Performed By: #### L [id number] ####[facility] ([facility])[address] [place] [address] Protein [Mass/Vol] 3.2 g/dL Low 6.0-8.3 [facility] Comment on above: Performed By: #### L [id number] ####[facility] ([facility])[address] [place] [address] LACTIC ACID WITH 4 HOUR REFL EXon 11-15-2023 LACTATE (MMOL/L) IN SER/PLAS 13.2 mmol/L Critically high 0.5-2.2 [facility] Comment on above: Result Comment: M-TX EVIOUS CRITICAL RESULTPrevious result verified on 11/15/2023 1231 on specimen/case [id number] called with component Lactate for procedure Lactic acid, plasma with value 16.9 mmol/L. Performed By: #### L [id number] ####[facility] ([facility])[address] [place] [address] LACTIC ACID, PLASMAon 2023 LACTATE (MMOL/L) IN SER/PLAS 16.9 mmol/L Critically high 0.5-2.2 [facility] Comment on above: Result Comment: Prev ious result verified on 11/15/2023 1055 on specimen/case [id number] called with component Lactate for procedure Lactic acid, plasma with value 17.0 mmol/L. Performed By: #### L [id number] ####[facility] ([facility] [place] [address] LACTATE (MMOL/L) IN SER/PLAS 17.0 mmol/L Critically high 0.5-2.2 [facility] Comment on above: Performed By: #### L [id number] ####[facility] ([facility])[address] [place] [address] MAGNESIUMon 11-15-2023 Magnesium [Mass/Vol] 2.5 mg/dL Normal 1.9-2.7 [facility] Comment on above: Performed By: #### L [id number] ####[facility] ([facility])[address] [place] [address] Magnesium [Mass/Vol] 1.6 mg/dL Low 1.9-2.7 [facility] Comment on above: Performed By: #### L [id number] ####[facility] ([facility])[address] [place] [address] MANUAL DIFFERENTIALon 2023 ANISOCYTOSIS PRESENCE IN BLOOD BY LIGHT MICROSCOPY Moderate Normal [facility] Comment on above: Performed By: #### L [id number] ####[facility] ([facility])[address] [place] [address] BASOPHILS (10*3/UL) IN BLOOD BY CALCULATION 0.00 10*3/uL Normal 0.00-0.20 [facility] Comment on above: Performed By: #### L [id number] ####[facility] ([facility])[address] [place] [address] BASOPHILS/100 LEUKOCYTES IN BLOOD BY AUTOMATED COUNT 0.0 % Normal 0.0-1.0 [facility] Comment on above: Performed By: #### L [id number] ####[facility] ([facility])[address] [place] [address] EOSINOPHILS (10*3/UL) IN BLOOD BY CALCULATION 0.00 10*3/uL Normal 0.00-0.50 [facility] Comment on above: Performed By: #### L [id number] ####[facility] ([facility])[address] [place] [address] EOSINOPHILS/100 LEUKOCYTES IN BLOOD BY AUTOMATED COUNT 0.0 % Normal 0.0-6.0 [facility] Comment on above: Performed By: #### L [id number] ####[facility] ([facility])[address] [place] [address] LYMPHOCYTES (10*3/UL) IN BLOOD BY CALCULATION 2.51 10*3/uL Normal 1.20-4.00 [facility] Comment on above: Performed By: #### L [id number] ####[facility] ([facility])[address] [place] [address] LYMPHOCYTES/100 LEUKOCYTES IN BLOOD BY AUTOMATED COUNT 7.3 % Low 20.0-45.0 [facility] Comment on above: Performed By: #### L [id number] ####[facility] ([facility])[address] [place] [address] MONOCYTES (10*3/UL) IN BLOOD BY CALCUATION 0.93 10*3/uL Normal 0.10-1.00 [facility] Comment on above: Performed By: #### L [id number] ####[facility] ([facility])[address] [place] [address] MONOCYTES/100 LEUKOCYTES IN BLOOD BY AUTOMATED COUNT 2.7 % Low 5.0-12.0 [facility] Comment on above: Performed By: #### L [id number] ####[facility] ([facility])[address] [place] [address] MYELOCYTES (10*3/UL) IN BLOOD BY CALCULATION 0.93 10*3/uL High 0.00 [facility] Comment on above: Performed By: #### L [id number] ####[facility] ([facility])[address] [place] [address] MYELOCYTES/100 LEUKOCYTES IN BLOOD CELLAVISION 2.7 % High 0.0-0.0 [facility] Comment on above: Performed By: #### L [id number] ####[facility] ([facility])[address] [place] [address] NEUTROPHILS (10*3/UL) IN BLOOD BY CALCULATION 30.0 10*3/uL High 1.6-7.6 [facility] Comment on above: Performed By: #### L [id number] ####[facility] ([facility]AKER)[address] [place] [address] NEUTROPHILS/100 LEUKOCYTES IN BLOOD BY AUTOMATED COUNT 87.3 % High 40.0-72.0 [facility] Comment on above: Performed By: #### L [id number] ####[facility] ([facility]ER)[address] [place] [address] PLASMA CELLS/100 LEUKOCYTES IN BLOOD 0 % Normal 0 [facility] Comment on above: Performed By: #### L [id number] ####[facility] (BE[facility]ER)[address] [place] [address] PLATELETS GIANT PRESENCE IN BLOOD BY LIGHT MICROSCOPY Present Normal [facility] Comment on above: Performed By: #### L [id number] ####[facility] ([facility]ER)[address] [place] [address] POIKILOCYTOSIS (PRESENCE) IN BLOOD BY LIGHT MICROSCOPY Slight Normal [facility] Comment on above: Performed By: #### L [id number] ####[facility] ([facility]ER)[address] [place] [address] POLYCHROMASIA IN BLOOD BY LIGHT MICROSCOPY Slight Normal [facility] Comment on above: Performed By: #### L [id number] ####[facility] (BEAKER)[address] [place] [address] SMUDGE CELLS/100 LEUKOCYTES IN BLOOD CELLAVISION Present Normal [facility] Comment on above: Performed By: #### L [id number] ####[facility] (BE[facility]ER)[address] [place] [address] VARIANT LYMPHOCYTES (10*3/UL) IN BLOOD BY CALCULATION 0.00 10*3/uL Normal 0.00 [facility] Comment on above: Performed By: #### L [id number] ####[facility] (BE[facility]ER)[address] [place] [address] VARIANT LYMPHOCYTES/100 LEUKOCYTES IN BLOOD CELLAVISION 0.0 % Normal 0.0-0.0 [facility] Comment on above: Performed By: #### L [id number] ####[facility] ([facility]ER)[address] [place] [address] NURSNOTEon 11-15-2023 NURSNOTE [facility] NURSNOTE Normal [facility] PHOSPHORUSon 11-15-2023 Magnesium [Mass/Vol] 8.6 mg/dL High 2.5-5.0 [facility] Comment on above: Performed By: #### L [id number] ####[facility] ([facility])[address] [place] [address] Magnesium [Mass/Vol] 6.0 mg/dL High 2.5-5.0 [facility] Comment on above: Performed By: #### L [id number] ####[facility] ([facility])[address] [place] [address] POCT GLUCOSE METER UNSOLICIT ED RESULTSon 11-15-2023 Glucose [Mass/Vol] 165 mg/dL High 70-105 [facility] Comment on above: Order Comment: Waive d Testing in the ED is performed under the ED CLIA certificate #[id number]. Result Comment: [email or web address] [email or web address] Performed By: #### L [id number] ####[facility] [place] [address] Glucose [Mass/Vol] 208 mg/dL High 70-105 [facility] Comment on above: Order Comment: Waive d Testing in the ED is performed under the ED CLIA certificate #[id number]. Result Comment: mmcc vargas Performed By: #### L [id number] ####[facility] ([facility] [place] [address] POCT PERFUSION PANEL UNSOLIC ITED RESULTSon 11-15-2023 CO2 [Moles/Vol] 20.0 mmol/L Low 21.0-29.0 [facility] Comment on above: Performed By: #### L [id number] ####[facility] ([facility] [place] [address] Glucose [Mass/Vol] 210 mg/dL High 70-105 [facility] Comment on above: Performed By: #### L [id number] ####[facility] (BEAKER)[address] [place] [address] HCO3 (Bld) [Moles/Vol] 18.9 mmol/L Low 23.0-28.0 [facility] Comment on above: Performed By: #### L [id number] ####[facility] (BEAKER)[address] [place] [address] Hematocrit (Bld) [Volume fraction] 26 % Low 38-51 [facility] Comment on above: Performed By: #### L [id number] ####[facility] (BEAKER)[address] [place] [address] Hemoglobin (Bld) [Mass/Vol] 8.8 g/dL Low 12.0-17.0 [facility] Comment on above: Performed By: #### L [id number] ####[facility] (BEAKER)[address] [place] [address] POCT BASE EXCESS -7.0 mmol/L Low -2.0-3.0 [facility] Comment on above: Performed By: #### L [id number] ####[facility] (BEAKER)[address] [place] [address] POCT IONIZED CALCIUM 1.15 mmol/L Normal 1.12-1.32 [facility] Comment on above: Performed By: #### L [id number] ####[facility] (BEAKER)[address] [place] [address] POCT PCO2 39.7 mmHg Low 41.0-51.0 [facility] Comment on above: Performed By: #### L [id number] ####[facility] (BEAKER)[address] [place] [address] POCT PH 7.29 Low 7.31-7.41 [facility] Comment on above: Performed By: #### L [id number] ####[facility] (BEAKER)[address] [place] [address] POCT PO2 68 mmHg Low 80-105 [facility] Comment on above: Performed By: #### L [id number] ####[facility] ([facility]AKER)[address] [place] [address] POCT SO2 91 % Low 95-98 [facility] Comment on above: Performed By: #### L [id number] ####[facility] ([facility])[address] [place] [address] Potassium [Moles/Vol] 3.8 mmol/L Normal 3.5-4.9 [facility] Comment on above: Performed By: #### L [id number] ####[facility] ([facility])[address] [place] [address] Sodium [Moles/Vol] 142 mmol/L Normal 138.0-146.0 [facility] Comment on above: Performed By: #### L [id number] ####[facility] ([facility])[address] [place] [address] POTASSIUM, WHOLE BLOODon Potassium [Moles/Vol] 3.1 mmol/L Low 3.5-5.1 [facility] Comment on above: Performed By: #### P OTASSIUM, WHOLE BLOOD ####[facility] [id number] [place] [address] [place] Potassium [Moles/Vol] 3.9 mmol/L Normal 3.5-5.1 [facility] Comment on above: Performed By: #### P OTASSIUM, WHOLE BLOOD ####[facility] [id number] [place] [address] [place] Potassium [Moles/Vol] 3.8 mmol/L Normal 3.5-5.1 [facility] Comment on above: Performed By: #### P OTASSIUM, WHOLE BLOOD ####[facility] [id number] [place] [address] [place] Potassium [Moles/Vol] 5.1 mmol/L Normal 3.5-5.1 [facility] Comment on above: Performed By: #### P OTASSIUM, WHOLE BLOOD ####[facility] [id number] [place] [address] [place] PROTIME-INRon 11-15-2023 INR IN PPP BY COAGULATION ASSAY 11.87 Critically high 0.90-1.10 [facility] Comment on above: Result Comment: [facility] P RECOMMENDED INR FOR WARFARIN THERAPY CONDITION [...] ####[facility] (BEAKER)[address] [place] [address] PROTHROMBIN TIME (PT) IN PPP BY COAGULATION ASSAY 92.6 Seconds Critically high 12.3-14.8 [facility] Comment on above: Performed By: #### L [id number] ####[facility] (BEAKER)[address] [place] [address] INR IN PPP BY COAGULATION ASSAY 12.96 Critically high 0.90-1.10 [facility] Comment on above: Result Comment: [facility] P RECOMMENDED INR FOR WARFARIN THERAPY CONDITION [...] [id number] ####[facility] ([employer])[address] [place] [address] PROTHROMBIN TIME (PT) IN PPP BY COAGULATION ASSAY 99.2 Seconds Critically high 12.3-14.8 [facility] Comment on above: Performed By: #### L [id number] ####[facility] ([employer])[address] [place] [address] SODIUM, WHOLE BLOODon 2023 SODIUM, WHOLE BLOOD 143 Normal 136-[address] [facility] Comment on above: Performed By: #### S ODIUM, WHOLE BLOOD ####[facility] [id number] [place] [address] [facility] SODIUM, WHOLE BLOOD 142 Normal 136-[address] [facility] Comment on above: Performed By: #### S ODIUM, WHOLE BLOOD ####[facility] [id number] [place] [address] [facility] SODIUM, WHOLE BLOOD 140 Normal 136-145 [facility] Comment on above: Performed By: #### S ODIUM, WHOLE BLOOD ####[facility] [id number] [place] [address] [facility] SODIUM, WHOLE BLOOD 138 Normal 136-145 [facility] Comment on above: Performed By: #### S ODIUM, WHOLE BLOOD ####[facility] [id number] [place] [address] [place] TROPONIN Ion 11-15-2023 Troponin I.cardiac [Mass/Vol] 0.10 ng/mL High 0.00-0.04 [facility] Comment on above: Performed By: #### L [id number] ####[facility] ([facility])[address] [place] [address] VANCOMYCIN, PEAKon VANCOMYCIN (UG/ML) IN SER/PLAS - PEAK 21.0 ug/mL Normal 20.0-50.0 [facility] Comment on above: Performed By: #### L [id number] ####[facility] ([facility])[address] [place] [address] VITAMIN D 25 HYDROXYon 11-14 CALCIDIOL (25 [place] VITAMIN D3) (NG/ML) IN SER/PLAS 26.1 ng/mL Low 30.0-80.0 [facility] Comment on above: Result Comment: >80. 0 Toxicity possible Performed By: #### L [id number] ####[facility] ([facility])[address] [place] [address] 30on 11-14-2023 30 Normal [facility] 30 Normal [facility] ANESon 11-14-2023 ANES Normal [facility] ARTERIAL BLOOD GAS WITH CO-O XIMETRYon 11-14-2023 Base excess Calc (Bld) [Moles/Vol] 2.2 mmol/L Normal -2.0-3.0 [facility] Comment on above: Order Comment: Pt in tubated in OR Performed By: #### L [id number] ####[facility] [id number] [place] [address] [facility] CARBOXYHEMOGLOBIN/HEM OGLOBIN TOTAL % IN BLOOD 1.5 % Normal 0.0-3.0 [facility] Comment on above: Order Comment: Pt in tubated in OR Performed By: #### L [id number] ####[facility] RESPIRATORY [id number] [place] [address] [place] CO2 (Bld) [Partial pressure] 39 mm[Hg] Normal 35-48 [facility] Comment on above: Order Comment: Pt in tubated in OR Performed By: #### L [id number] ####[facility] RESPIRATORY [id number] [place] [address] [place] DEOXYGENATED HEMOGLOBIN IN BLOOD 0.9 % Low 1-5 [facility] Comment on above: Order Comment: Pt in tubated in OR Performed By: #### L [id number] ####[facility] RESPIRATORY [id number] [place] [address] [place] HCO3 (Bld) [Moles/Vol] 26.5 mmol/L Normal 21.0-28.0 [facility] Comment on above: Order Comment: Pt in tubated in OR Performed By: #### L [id number] ####[facility] RESPIRATORY [id number] [place] [address] [facility] Hemoglobin (Bld) [Mass/Vol] 9.0 g/dL Low 11.7-17.4 [facility] Comment on above: Order Comment: Pt in tubated in OR Performed By: #### L [id number] ####[facility] RESPIRATORY [id number] [place] [address] [place] METHEMOGLOBIN/100 IN BLOOD 0.2 % Normal 0.0-1.5 [facility] Comment on above: Order Comment: Pt in tubated in OR Performed By: #### L [id number] ####[facility]IR[facility] [id number] [place] [address] [place] Oxygen (Bld) [Partial pressure] 125 mm[Hg] High 83-100 [facility] Comment on above: Order Comment: Pt in tubated in [place] Performed By: #### L [id number] ####[facility] [id number] [place] [address] [place] OXYGEN SATURATION (%) IN ARTERIAL BLOOD 99.1 % High 94.0-98.0 [facility] Comment on above: Order Comment: Pt in tubated in [place] Performed By: #### L [id number] ####[facility] [id number] [address] [facility] [address] [facility] OXYGENATED HEMOGLOBIN IN BLOOD 97.4 % High 90.0-95.0 [facility] Comment on above: Order Comment: Pt in tubated in [place] Performed By: #### L [id number] ####[facility] [id number] [place] [address] [facility] pH (Bld) 7.44 [pH] Normal 7.35-7.45 [facility] Comment on above: Order Comment: Pt in tubated in OR Performed By: #### L [id number] ####[facility]IR[facility] [id number] [place] [address] [facility] SOURCE OF OXYGEN Vent Normal [facility] Comment on above: Order Comment: Pt in tubated in [place] Performed By: #### L [id number] ####[facility] RESPIR[facility] [id number] [place] [address] [facility] Base excess Calc (Bld) [Moles/Vol] 7.0 mmol/L High -2.0-3.0 [facility] Comment on above: Performed By: #### L [id number] ####[facility] [id number] [place] [address] [facility] CARBOXYHEMOGLOBIN/HEM OGLOBIN TOTAL % IN BLOOD 1.4 % Normal 0.0-3.0 [facility] Comment on above: Performed By: #### L [id number] ####[facility] RES[facility] [id number] [place] [address] [facility] CO2 (Bld) [Partial pressure] 33 mm[Hg] Low 35-48 [facility] Comment on above: Performed By: #### L [id number] ####[facility] [id number] [place] [address] [facility] DEOXYGENATED HEMOGLOBIN IN BLOOD 1.2 % Normal 1-5 [facility] Comment on above: Performed By: #### L [id number] ####[facility] RESPIR[facility] [id number] [place] [address] [facility] HCO3 (Bld) [Moles/Vol] 29.5 mmol/L High 21.0-28.0 [facility] Comment on above: Performed By: #### L [id number] ####[facility] RESPIRATORY [id number] [place] [address] [facility] Hemoglobin (Bld) [Mass/Vol] 9.7 g/dL Low 11.7-17.4 [facility] Comment on above: Performed By: #### L [id number] ####[facility] RESPIR[facility]ORY [id number] [place] [address] [facility] METHEMOGLOBIN/100 IN BLOOD 0.7 % Normal 0.0-1.5 [facility] Comment on above: Performed By: #### L [id number] ####[facility] RESPIRATORY [id number] [place], [place] [address] Oxygen (Bld) [Partial pressure] 135 mm[Hg] High 83-100 [facility] Comment on above: Performed By: #### L [id number] ####[facility] RESPIR[facility] [id number] [place] [address] [facility] OXYGEN SATURATION (%) IN ARTERIAL BLOOD 98.8 % High 94.0-98.0 [facility] Comment on above: Performed By: #### L [id number] ####[facility] RESPIR[facility] [id number] [place] [address] [facility] OXYGENATED HEMOGLOBIN IN BLOOD 96.7 % High 90.0-95.0 [facility] Comment on above: Performed By: #### L [id number] ####[facility] RESPIR[facility]ORY [id number] [place] [address] [facility] pH (Bld) 7.56 [pH] Critically high 7.35-7.45 [facility] Comment on above: Performed By: #### L [id number] ####[facility] RESPIR[facility]ORY [id number] [place] [address] [facility] SOURCE OF OXYGEN Vent Normal [facility] Comment on above: Performed By: #### L [id number] ####[facility] RESPIR[facility] [id number] [place] [address] [facility] BASIC METABOLIC PANELon 07-0 Anion gap [Moles/Vol] 12 mmol/L Normal 7-20 [facility] Comment on above: Performed By: #### L [id number] ####[facility] LAB (BEAKER)[address] [place] [address] Calcium [Mass/Vol] 7.4 mg/dL Low 8.6-10.3 [facility] Comment on above: Performed By: #### L [id number] ####[facility] (BEAKER)[address] [place] [address] Chloride [Moles/Vol] 105 mmol/L Normal 98-107 [facility] Comment on above: Performed By: #### L [id number] ####[facility] (BEAKER)[address] [place] [address] CO2 [Moles/Vol] 31 mmol/L Normal 21-31 [facility] Comment on above: Performed By: #### L [id number] ####[facility] (BEAKER)[address] [place] [address] Creatinine [Mass/Vol] 0.91 mg/dL Normal 0.60-1.20 [facility] Comment on above: Performed By: #### L [id number] ####[facility] [place] [address] GLOMERULAR FILTRATION RATE ML/MIN/1.73 SQ M.PREDICTED 64.2 mL/min/1.73m*2 Normal >60.0 [facility] Comment on above: Result Comment: The [facility]???s estimated glomerular filtration rate (eGFR) [...] AB15 ####[facility] [place] [address] Glucose [Mass/Vol] 120 mg/dL High 70-100 [facility] Comment on above: Performed By: #### L [id number] ####[facility] [place] [address] Potassium [Moles/Vol] 4.1 mmol/L Normal 3.5-5.1 [facility] Comment on above: Performed By: #### L [id number] ####[facility] [place] [address] Sodium [Moles/Vol] 144 mmol/L Normal 136-145 [facility] Comment on above: Performed By: #### L [id number] ####[facility] ([facility])[address] [place] [address] Urea nitrogen [Mass/Vol] 24 mg/dL Normal 7-25 [facility] Comment on above: Performed By: #### L [id number] ####[facility] ([facility])[address] [place] [address] UREA NITROGEN/CREATININE (MASS RATIO) IN SER/PLAS 26.4 Normal [facility] Comment on above: Performed By: #### L [id number] ####[facility] [place] [address] CALCIUM, IONIZEDon CALCIUM IONIZED (MMOL/L) IN BLOOD 1.17 mmol/L Normal 1.15-1.33 [facility] Comment on above: Performed By: #### C ALCIUM, IONIZED ####[facility] RESPIRATORY [id number] [place] [address] [place] CBC WITH AUTO DIFFERENTIALon 11-14-2023 Basophils (Bld) [#/Vol] 0.03 10*3/uL Normal 0.00-0.20 [facility] Comment on above: Performed By: #### L [id number] ####[facility] (BEAKER)[address] [place] [address] Basophils/100 WBC (Bld) 0.4 % Normal 0.0-1.0 [facility] Comment on above: Performed By: #### L [id number] ####[facility] (BEAKER)[address] [place] [address] Eosinophils (Bld) [#/Vol] 0.00 10*3/uL Normal 0.00-0.50 [facility] Comment on above: Performed By: #### L [id number] ####[facility] (BEAKER)[address] [place] [address] Eosinophils/100 WBC (Bld) 0.0 % Normal 0.0-6.0 [facility] Comment on above: Performed By: #### L [id number] ####[facility] (BEAKER)[address] [place] [address] Erythrocyte distribution width (RBC) [Ratio] 16.0 % High 11.5-15.0 [facility] Comment on above: Performed By: #### L [id number] ####[facility] (BEAKER)[address] [place] [address] ERYTHROCYTE MEAN CORPUSCULAR HEMOGLOBIN CONCENTRATION (G/DL) BY AUTOMATED 30.2 g/dL Low 32.0-35.0 [facility] Comment on above: Performed By: #### L [id number] ####[facility] (BEAKER)[address] [place] [address] Hematocrit (Bld) [Volume fraction] 32.1 % Low 36.0-48.0 [facility] Comment on above: Performed By: #### L [id number] ####[facility] (BEAKER)[address] [place] [address] Hemoglobin (Bld) [Mass/Vol] 9.7 g/dL Low 12.0-15.0 [facility] Comment on above: Performed By: #### L [id number] ####[facility] (BEAKER)[address] [place] [address] Immature granulocytes (Bld) [#/Vol] 0.07 10*3/uL Normal 0.00-0.20 [facility] Comment on above: Performed By: #### L [id number] ####[facility] (BEAKER)[address] [place] [address] Immature granulocytes/100 WBC (Bld) 0.8 % Normal 0.0-1.0 [facility] Comment on above: Performed By: #### L [id number] ####[facility] (BEAKER)[address] [place] [address] Lymphocytes (Bld) [#/Vol] 1.34 10*3/uL Normal 1.20-4.00 [facility] Comment on above: Performed By: #### L [id number] ####[facility] (BEAKER)[address] [place] [address] Lymphocytes/100 WBC (Bld) 15.9 % Low 20.0-45.0 [facility] Comment on above: Performed By: #### L [id number] ####[facility] (BEAKER)[address] [place] [address] MCH (RBC) [Entitic mass] 29.1 pg Normal 27.0-33.0 [facility] Comment on above: Performed By: #### L [id number] ####[facility] (BEAKER)[address] [place] [place] [address] MCV (RBC) [Entitic vol] 96.4 fL Normal 82.0-98.0 [facility] Comment on above: Performed By: #### L [id number] ####[facility] (BEAKER)[address] [place] [address] Monocytes (Bld) [#/Vol] 0.77 10*3/uL Normal 0.10-1.00 [facility] Comment on above: Performed By: #### L [id number] ####[facility] (BEAKER)[address] [place] [address] Monocytes/100 WBC (Bld) 9.1 % Normal 5.0-12.0 [facility] Comment on above: Performed By: #### L [id number] ####[facility] ([facility])[address] [place] [address] Neutrophils (Bld) [#/Vol] 6.22 10*3/uL Normal 1.60-7.60 [facility] Comment on above: Performed By: #### L [id number] ####[facility] ([facility])[address] [place] [address] Neutrophils/100 WBC (Bld) 73.8 % High 40.0-72.0 [facility] Comment on above: Performed By: #### L [id number] ####[facility] ([facility])[address] [place] [address] NRBC (PER 100 WBCS) BY AUTOMATED COUNT 0.0 % Normal 0 [facility] Comment on above: Performed By: #### L [id number] ####[facility] ([facility])[address] [place] [address] PLATELETS (10*3/UL) IN BLOOD AUTOMATED COUNT 223 10*3/uL Normal 150-400 [facility] Comment on above: Performed By: #### L [id number] ####[facility] ([facility])[address] [place] [place] [address] RBC (Bld) [#/Vol] 3.33 10*6/uL Low 3.80-5.00 [facility] Comment on above: Performed By: #### L [id number] ####[facility] ([facility])[address] [place] [address] WBC (Bld) [#/Vol] 8.43 10*3/uL Normal 4.00-10.60 [facility] Comment on above: Performed By: #### L [id number] ####[facility] [place] [address] CONSULTon 11-14-2023 CONSULT Normal [facility] HPon 11-14-2023 HP Normal [facility] MAGNESIUMon 11-14-2023 Magnesium [Mass/Vol] 1.7 mg/dL Low 1.9-2.7 [facility] Comment on above: Performed By: #### L [id number] ####[facility] ([facility])[address] [place] [address] OPNOTEon 11-14-2023 OPNOTE Normal [facility] PHOSPHORUSon 11-14-2023 Magnesium [Mass/Vol] 4.5 mg/dL Normal 2.5-5.0 [facility] Comment on above: Performed By: #### L [id number] ####[facility] ([facility])[address] [place] [address] POCT GLUCOSE METER UNSOLICIT ED RESULTSon 11-14-2023 Glucose [Mass/Vol] 181 mg/dL High 70-105 [facility] Comment on above: Order Comment: Waive d Testing in the ED is performed under the ED CLIA certificate #[id number]. Result Comment: czyd orc Performed By: #### L [id number] ####[facility] ([facility])[address] [place] [address] Glucose [Mass/Vol] 120 mg/dL High 70-105 [facility] Comment on above: Order Comment: Waive d Testing in the ED is performed under the ED CLIA certificate #[id number]. Result Comment: epaw low Performed By: #### L [id number] ####[facility] ([facility])[address] [place] [address] Glucose [Mass/Vol] 113 mg/dL High 70-105 [facility] Comment on above: Order Comment: Waive d Testing in the ED is performed under the ED CLIA certificate #[id number]. Result Comment: epoo [email or web address] Performed By: #### L [id number] ####[facility] [place] [address] Glucose [Mass/Vol] 131 mg/dL High 70-105 [facility] Comment on above: Order Comment: Waive d Testing in the ED is performed under the ED CLIA certificate #[id number]. Result Comment: lzwo judith Performed By: #### L [id number] ####[facility] ([facility])[address] [place] [address] Glucose [Mass/Vol] 111 mg/dL High 70-105 [facility] Comment on above: Order Comment: Waive d Testing in the ED is performed under the ED CLIA certificate #[id number]. Result Comment: lzwo judith Performed By: #### L [id number] ####[facility] ([facility])[address] [place] [address] POTASSIUM, WHOLE BLOODon Potassium [Moles/Vol] 4.0 mmol/L Normal 3.5-5.1 [facility] Comment on above: Performed By: #### P OTASSIUM, WHOLE BLOOD ####[facility]IR[facility] [id number] [place] [address] [facility] SODIUM, WHOLE BLOODon 2023 SODIUM, WHOLE BLOOD 139 Normal 136-145 [facility] Comment on above: Performed By: #### S ODIUM, WHOLE BLOOD ####[facility] RESPIRATORY [id number] [place] [address] [facility] APTTon 11-13-2023 ACTIVATED PARTIAL THROMBOPLASTIN TIME IN PPP BY COAGULATION ASSAY 34.0 Seconds Normal 25.0-35.0 [facility] Comment on above: Result Comment: Clin ical significance of the APTT is questionable in the presence of heparin. Performed By: #### L [id number] ####[facility] ([facility])[address] [place] [address] BASIC METABOLIC PANELon Anion gap [Moles/Vol] 16 mmol/L Normal 7-20 [facility] Comment on above: Performed By: #### L [id number] ####[facility] ([facility])[address] [place] [address] Calcium [Mass/Vol] 7.8 mg/dL Low 8.6-10.3 [facility] Comment on above: Performed By: #### L [id number] ####[facility] (BEAKER)[address] [place] [address] Chloride [Moles/Vol] 104 mmol/L Normal 98-107 [facility] Comment on above: Performed By: #### L [id number] ####[facility] (BEAKER)[address] [place] [address] CO2 [Moles/Vol] 27 mmol/L Normal 21-31 [facility] Comment on above: Performed By: #### L [id number] ####[facility] [place] [address] Creatinine [Mass/Vol] 0.91 mg/dL Normal 0.60-1.20 [facility] Comment on above: Performed By: #### L [id number] ####[facility] ([facility])[address] [place] [address] GLOMERULAR FILTRATION RATE ML/MIN/1.73 SQ M.PREDICTED 64.2 mL/min/1.73m*2 Normal >60.0 [facility] Comment on above: Result Comment: [facility]???s estimated glomerular filtration rate (eGFR) [...] AB15 ####[facility] (BEAKER)[address] [place] [address] Glucose [Mass/Vol] 125 mg/dL High 70-100 [facility] Comment on above: Performed By: #### L [id number] ####[facility] (BEAKER)[address] [place] [address] Potassium [Moles/Vol] 4.4 mmol/L Normal 3.5-5.1 [facility] Comment on above: Performed By: #### L [id number] ####[facility] [place] [address] Sodium [Moles/Vol] 143 mmol/L Normal 136-145 [facility] Comment on above: Performed By: #### L [id number] ####[facility] ([facility])[address] [place] [address] Urea nitrogen [Mass/Vol] 23 mg/dL Normal 7-25 [facility] Comment on above: Performed By: #### L [id number] ####[facility] ([facility])[address] [place] [address] UREA NITROGEN/CREATININE (MASS RATIO) IN SER/PLAS 25.3 Normal [facility] Comment on above: Performed By: #### L [id number] ####[facility] ([facility])[address] [place] [address] CBC WITH AUTO DIFFERENTIALon 11-13-2023 Basophils (Bld) [#/Vol] 0.03 10*3/uL Normal 0.00-0.20 [facility] Comment on above: Performed By: #### L [id number] ####[facility] [place] [address] Basophils/100 WBC (Bld) 0.3 % Normal 0.0-1.0 [facility] Comment on above: Performed By: #### L [id number] ####[facility] [place] [address] Eosinophils (Bld) [#/Vol] 0.00 10*3/uL Normal 0.00-0.50 [facility] Comment on above: Performed By: #### L [id number] ####[facility] (BEAKER)[address] [place] [address] Eosinophils/100 WBC (Bld) 0.0 % Normal 0.0-6.0 [facility] Comment on above: Performed By: #### L [id number] ####[facility] ([facility])[address] [place] [address] Erythrocyte distribution width (RBC) [Ratio] 15.9 % High 11.5-15.0 [facility] Comment on above: Performed By: #### L [id number] ####[facility] ([facility])[address] [place] [address] ERYTHROCYTE MEAN CORPUSCULAR HEMOGLOBIN CONCENTRATION (G/DL) BY AUTOMATED 30.4 g/dL Low 32.0-35.0 [facility] Comment on above: Performed By: #### L [id number] ####[facility] ([facility])[address] [place] [address] Hematocrit (Bld) [Volume fraction] 36.2 % Normal 36.0-48.0 [facility] Comment on above: Performed By: #### L [id number] ####[facility] ([facility])[address] [place] [address] Hemoglobin (Bld) [Mass/Vol] 11.0 g/dL Low 12.0-15.0 [facility] Comment on above: Performed By: #### L [id number] ####[facility] ([facility])[address] [place] [address] Immature granulocytes (Bld) [#/Vol] 0.09 10*3/uL Normal 0.00-0.20 [facility] Comment on above: Performed By: #### L [id number] ####[facility] ([facility])[address] [place] [address] Immature granulocytes/100 WBC (Bld) 0.9 % Normal 0.0-1.0 [facility] Comment on above: Performed By: #### L [id number] ####[facility] ([facility])[address] [place] [address] Lymphocytes (Bld) [#/Vol] 1.28 10*3/uL Normal 1.20-4.00 [facility] Comment on above: Performed By: #### L [id number] ####[facility] (BEAKER)[address] [place] [address] Lymphocytes/100 WBC (Bld) 12.4 % Low 20.0-45.0 [facility] Comment on above: Performed By: #### L [id number] ####[facility] (BEAKER)[address] [place] [address] MCH (RBC) [Entitic mass] 28.8 pg Normal 27.0-33.0 [facility] Comment on above: Performed By: #### L [id number] ####[facility] (BEAKER)[address] [place] [address] MCV (RBC) [Entitic vol] 94.8 fL Normal 82.0-98.0 [facility] Comment on above: Performed By: #### L [id number] ####[facility] (BEAKER)[address] [place] [address] Monocytes (Bld) [#/Vol] 0.73 10*3/uL Normal 0.10-1.00 [facility] Comment on above: Performed By: #### L [id number] ####[facility] (BEAKER)[address] [place] [address] Monocytes/100 WBC (Bld) 7.1 % Normal 5.0-12.0 [facility] Comment on above: Performed By: #### L [id number] ####[facility] (BEAKER)[address] [place] [address] Neutrophils (Bld) [#/Vol] 8.21 10*3/uL High 1.60-7.60 [facility] Comment on above: Performed By: #### L [id number] ####[facility] (BEAKER)[address] [place] [address] Neutrophils/100 WBC (Bld) 79.3 % High 40.0-72.0 [facility] Comment on above: Performed By: #### L [id number] ####[facility] (BEAKER)[address] [place] [address] NRBC (PER 100 WBCS) BY AUTOMATED COUNT 0.0 % Normal 0 [facility] Comment on above: Performed By: #### L [id number] ####[facility] ([facility])[address] [address] PLATELETS (10*3/UL) IN BLOOD AUTOMATED COUNT 262 10*3/uL Normal 150-400 [facility] Comment on above: Performed By: #### L [id number] ####[facility] ([facility])[address] [place] [address] RBC (Bld) [#/Vol] 3.82 10*6/uL Normal 3.80-5.00 [facility] Comment on above: Performed By: #### L [id number] ####[facility] ([facility])[address] [place] [address] WBC (Bld) [#/Vol] 10.34 10*3/uL Normal 4.00-10.60 [facility] Comment on above: Performed By: #### L [id number] ####[facility] ([facility])[address] [place] [address] CONSULTon 11-13-2023 CONSULT Normal [facility] CT FEMUR LEFT WO IV CONTRAST on 11-13-2023 CT FEMUR LEFT WO IV CONTRAST Invalid Interpretation Code [facility] HPon 11-13-2023 HP Normal [facility] MAGNESIUMon 11-13-2023 Magnesium [Mass/Vol] 1.8 mg/dL Low 1.9-2.7 [facility] Comment on above: Performed By: #### L [id number] ####[facility] ([facility])[address] [place] [address] PROTIME-INRon 11-13-2023 INR IN PPP BY COAGULATION ASSAY 1.79 High 0.90-1.10 [facility] Comment on above: Result Comment: [...] CHEST 1995;[id number]. Performed By: #### L [id number] ####[facility])[address] [place] [address] PROTHROMBIN TIME (PT) IN PPP BY COAGULATION ASSAY 20.9 Seconds High 12.3-14.8 [facility] Comment on above: Performed By: #### L [id number] ####[facility] [place] [address] TROPONIN Ion 11-13-2023 Troponin I.cardiac [Mass/Vol] 0.02 ng/mL Normal 0.00-0.04 [facility] Comment on above: Performed By: #### L [id number] ####[facility] [place] [address] TYPE AND SCREENon 11-13-2023 AB SCREEN Negative Normal [facility] Comment on above: Performed By: #### L [id number] ####[facility] BLOOD B[facility], ABO group Nom (Bld) O Normal [facility] Comment on above: Performed By: #### L [id number] ####[facility]OD [facility], RH TYPE IN BLOOD Positive Normal [facility] Comment on above: Performed By: #### L [id number] ####[facility] BLOOD B[facility], VIT D 25-OH [facility] 2022 Vitamin D, 25-Hydroxy 35.9 ng/mL Normal 30.0-100.0 [facility] Comment on above: Result Comment: Jadyn min D deficiency has been defined by the [place] of Medicine and an Endocrine Society practice guideline as a level of serum 25-OH vitamin D less than 20 ng/mL (1,2). The Endocrine Society went on to further define vitamin D insufficiency as a level between 21 and 29 ng/mL (2). 1. IOM ([place] of Medicine). 2010. Dietary reference intakes for calcium and D. [place]: The National Academies Press. 2. Yamilex MF, Florecita [place], Stella OTTO, et al. Evaluation, treatment, and prevention of vitamin D deficiency: an Endocrine Society clinical practice guideline. JCEM. 2010; 96(7):1911-30. Performed By: #### V ITADLC #### [facility] [address] [place] [address] Dr. Ashwin Key CBC AUTO DIFFon 08-22-2022 BASO # 0.0 103/ul Normal 0.0-0.1 [facility] Comment on above: Performed By: #### C BC #### [facility] [address] [place] [address] Dr. Ashwin Key Basophils/100 WBC (Bld) 0.5 % Normal 0.2-2.0 [facility] Comment on above: Performed By: #### C BC #### [facility] [address] [place] [address] Dr. Ashwin Key EO # 0.0 103/ul Normal 0.0-0.7 [facility] Comment on above: Performed By: #### C BC #### [facility] [address] [place] [address] Dr. Ashwin Key Eosinophils/100 WBC (Bld) 0.0 % Critically low 0.9-7.0 [facility] Comment on above: Performed By: #### C BC #### [facility] [address] [place] [address] Dr. Ashwin Key Erythrocyte distribution width (RBC) [Ratio] 14.7 % Normal 11.0-15.0 [facility] Comment on above: Performed By: #### C BC #### [facility] [address] [place] [address] Dr. Ashwin Key Hematocrit (Bld) [Volume fraction] 38.0 % Normal 36.0-48.0 [facility] Comment on above: Performed By: #### C BC #### [facility] [address] [place] [address] Dr. Ashwin Key Hemoglobin (Bld) [Mass/Vol] 11.5 g/dL Critically low 12.0-16.0 [facility] Comment on above: Performed By: #### C BC #### [facility] [address] [place] [address] Dr. Ashwin Key IG # 0.01 10e3/ul Normal 0.00-0.03 [facility] Comment on above: Performed By: #### C BC #### [facility] [address] [place] [address] Dr. Ashwin Key IG % 0.2 % Normal 0.0-0.5 [facility] Comment on above: Performed By: #### C BC #### [facility] [address] [place] [address] Dr. Ashwin Key LYMPH # 2.1 103/ul Normal 1.2-3.8 [facility] Comment on above: Performed By: #### C BC #### [facility] [address] [place] [address] Dr. Ashwin Key Lymphocytes/100 WBC (Bld) 48.4 % Normal 20.5-60.0 [facility] Comment on above: Performed By: #### C BC #### [facility] [address] [place] [address] Dr. Ashwin Key MANUAL DIFF REQ NO Normal [facility] Comment on above: Performed By: #### C BC #### [facility] [address] [place] [address] Dr. Ashwin Key MCH (RBC) [Entitic mass] 28.8 pg Normal 26.7-34.0 [facility] Comment on above: Performed By: #### C BC #### [facility] [address] [address] [address] Ashwin Key MCHC (RBC) [Mass/Vol] 30.3 g/dL Normal 29.9-35.2 [facility] Comment on above: Performed By: #### C BC #### [facility] [address] [address] [address] Ashwin Key MCV (RBC) [Entitic vol] 95.0 fL Normal 81.0-99.0 [facility] Comment on above: Performed By: #### C BC #### [facility] [address] [place] [address] Dr. Ashwin Key MONO # 0.4 103/ul Normal 0.3-0.8 [facility] Comment on above: Performed By: #### C BC #### [facility] [address] [place] [address] Dr. Ashwin Key Monocytes/100 WBC (Bld) 9.3 % Normal 1.7-12.0 [facility] Comment on above: Performed By: #### C BC #### [facility] [address] [place] [address] Dr. Ashwin Key NEUT # 1.8 103/ul Normal 1.4-6.5 [facility] Comment on above: Performed By: #### C BC #### [facility] [address] [place] [address] Dr. Ashwin Key Neutrophils/100 WBC (Bld) 41.6 % Critically low 43.0-75.0 [facility] Comment on above: Performed By: #### C BC #### [facility] [address] [place] [address] Dr. Ashwin Key Platelet mean volume (Bld) [Entitic vol] 10.3 fL Normal 9.5-13.5 [facility] Comment on above: Performed By: #### C BC #### [facility] [address] [place] [address] Dr. Ashwin Key PLT 166 103/ul Normal 150-450 [facility] Comment on above: Performed By: #### C BC #### [facility] [address] [address] [address] Ashwin Key RBC 4.00 106/ul Critically low 4.20-5.40 [facility] Comment on above: Performed By: #### C BC #### [facility] [address] [address] [address] Ashwin Key WBC 4.4 103/ul Normal 4.0-11.0 [facility] Comment on above: Performed By: #### C BC #### [facility] [address] [address] [address] Ashwin Key GLYCOHEMOGLOBIN A1Con 2022 ADA RECOMMENDATION SEE BELOW Normal [facility] Comment on above: Result Comment: ADA RECOMMENDED LIMIT 4.0 - 6.0 ADA THERAPEUTIC TARGET < 7.0 ACTION SUGGESTED > 7.0 Performed By: #### A 1C #### [facility] [address] [place] [address] Dr. Ashwin Key Glucose [Mass/Vol] 105 mg/dL Normal [facility] Comment on above: Performed By: #### A 1C #### [facility] [address] [place] [address] Dr. Ashwin Key HbA1c (Bld) [Mass fraction] 5.3 % Normal 4.5-6.2 [facility] Comment on above: Performed By: #### A 1C #### [facility] [address] [place] [address] Dr. Ashwin Key LIPID PROFILEon 08-22-2022 CHOL-HDL RATIO NORM SEE BELOW Normal [facility] Comment on above: Result Comment: 3.3 - 4.4 LOW RISK 4.4 - 7.1 AVERAGE RISK 7.1 - 11.0 MODERATE RISK >11.0 HIGH RISK Performed By: #### U JUAN F BUTT #### [facility] [address] [place] [address] Dr. Ashwin Key Cholesterol [Mass/Vol] 103 mg/dL Normal <=200 [facility] Comment on above: Performed By: #### U JOEY BUTTRO #### [facility] [address] [address] [address] Ashwin Key Cholesterol in HDL [Mass/Vol] 40 mg/dL Normal 40-60 [facility] Comment on above: Performed By: #### U ACSJAZMIN UMICRO #### [facility] [address] [address] [address] Ashwin Key Cholesterol in LDL [Mass/Vol] 51.8 mg/dL Normal [facility] Comment on above: Performed By: #### U ACSJAZMIN UMICRO #### [facility] [address] [address] [address] Ashwin Key Cholesterol.total/Cho lesterol in HDL [Mass ratio] 2.6 {ratio} Normal [facility] Comment on above: Performed By: #### U ACSJAZMIN UMICRO #### [facility] [address] [address] [address] Ashwin Key HDL NORMAL > or = 60 mg/dl - LO W CARDIOVASCULAR RISK <40 mg/dl - HIGH CARDIOVASCULAR RISK Normal [facility] Comment on above: Performed By: #### U ACSJAZMIN UMICRO #### [facility] [address] [address] [address] Ashwin Key LDL CALC NORMAL SEE BELOW Normal [facility] Comment on above: Result Comment: <100 mg/dl OPTIMAL 100 - 129 mg/dl NEAR OR ABOVE OPTIMAL 130 - 159 mg/dl BORDERLINE HIGH 160 - 189 mg/dl HIGH >190 mg/dl VERY HIGH Performed By: #### U ACSJAZMIN UMICRO #### [facility] [address] [address] [address] Ashwin Key Triglyceride [Mass/Vol] 56 mg/dL Normal <=150 [facility] Comment on above: Performed By: #### U ACSJAZMIN UMICRO #### [facility] [address] [address] [address] Ashwin Key VLDL CALC 11.2 mg/dL Normal [facility] Comment on above: Performed By: #### U ACSJAZMIN UMICRO #### [facility] [address] [address] [address] Ahswin Key PROF 14(COMP METB)on 023 Albumin [Mass/Vol] 2.5 g/dL Critically low 3.4-5.0 [facility] Comment on above: Performed By: #### U FILOMENA, UMICRO #### [facility] [address] [address] [address] Ashwin Kye Albumin/Globulin [Mass ratio] 0.7 {ratio} Normal [facility] Comment on above: Performed By: #### U FILOMENA, UMICRO #### [facility] [address] [address] [address] Ashwin Key ALP [Catalytic activity/Vol] 110 U/L Normal 46-116 [facility] Comment on above: Performed By: #### U FILOMENA, UMICRO #### [facility] [address] [address] [address] Ashwin Key ALT [Catalytic activity/Vol] 16 U/L Normal 14-59 [facility] Comment on above: Performed By: #### U FILOMENA, UMICRO #### [facility] [address] [address] [address] Ashwin Key Anion gap [Moles/Vol] 9.8 mmol/L Normal [facility] Comment on above: Performed By: #### U FILOMENA, UMICRO #### [facility] [address] [address] [address] Ashwin Key AST [Catalytic activity/Vol] 13 U/L Critically low 15-37 [facility] Comment on above: Performed By: #### U FILOMENA, UMICRO #### [facility] [address] [address] [address] Ashwin Key Bilirubin [Mass/Vol] 0.4 mg/dL Normal 0.2-1.0 [facility] Comment on above: Performed By: #### U FILOMENA, UMICRO #### [facility] [address] [address] [address] Ashwin Key Calcium [Mass/Vol] 8.5 mg/dL Normal 8.5-10.1 [facility] Comment on above: Performed By: #### U ACSIND, UMICRO #### [facility] [address] [address] [address] Ashwin Key Chloride [Moles/Vol] 108 mmol/L Critically high 98-107 [facility] Comment on above: Performed By: #### U ACSIND, UMICRO #### [facility] [address] [address] [address] Ashwin Key CO2 [Moles/Vol] 31.0 mmol/L Normal 21.0-32.0 [facility] Comment on above: Performed By: #### U ACSIND, UMICRO #### [facility] [address] [address] [address] Ashwin Key Creatinine [Mass/Vol] 0.91 mg/dL Normal 0.55-1.02 [facility] Comment on above: Performed By: #### U ACSIND, UMICRO #### [facility] [address] [address] [address] Ashwin Key EGFR-AF CITIZEN [place] >60 Normal >=60 [facility] Comment on above: Performed By: #### U ACSIND, UMICRO #### [facility] [address] [address] [address] Ashwin Key EGFR-NON AF CITIZEN [place] 60 mL/min/1.73m2 Normal >=60 [facility] Comment on above: Performed By: #### U ACSIND, UMICRO #### [facility] [address] [address] [address] Ashwin Key Globulin (S) [Mass/Vol] 3.5 g/dL Normal [facility] Comment on above: Performed By: #### U ACSIND, UMICRO #### [facility] [address] [address] [address] Ashwin Key Glucose [Mass/Vol] 99 mg/dL Normal 74-106 [facility] Comment on above: Performed By: #### U ACSIND, UMICRO #### [facility] [address] [address] [address] Ashwin Key Potassium [Moles/Vol] 3.8 mmol/L Normal 3.5-5.1 [facility] Comment on above: Performed By: #### U GURVINDER BUTTICRO #### [facility] [address] [place] [address] Dr. Ashwin Key Protein [Mass/Vol] 6.0 g/dL Critically low 6.4-8.2 [facility] Comment on above: Performed By: #### U FILOMENA UMICRO #### [facility] [address] [place] [address] Dr. Ashwin Key Sodium [Moles/Vol] 145 mmol/L Normal 136-145 [facility] Comment on above: Performed By: #### U GURVINDER BUTTICRO #### [facility] [address] [place] [address] Dr. Ashwin Key Urea nitrogen [Mass/Vol] 24.0 mg/dL Critically high 7.0-18.0 [facility] Comment on above: Performed By: #### JOEY DIEGORO #### [facility] [address] [place] [address] Dr. Ashwin Key Urea nitrogen/Creatinine [Mass ratio] 26.4 mg/mg Normal [facility] Comment on above: Performed By: #### JOEY DIEGORO #### [facility] [address] [place] [address] Dr. Ashwin Key TSHon 08-22-2022 TSH 5.573 uIU/mL Critically high 0.358-3.740 [facility] Comment on above: Performed By: #### Lisseth BUTT UMICRO #### [facility] [address] [place] [address] Dr. Ashwin Key CBC AUTO DIFFon 08-10-2022 BASO # 0.0 103/ul Normal 0.0-0.1 [facility] Comment on above: Performed By: #### C BC #### [facility] [address] [place] [address] Dr. Ashwin Key Basophils/100 WBC (Bld) 0.7 % Normal 0.2-2.0 [facility] Comment on above: Performed By: #### C BC #### [facility] [address] [place] [address] Dr. Ashwin Key EO # 0.0 103/ul Normal 0.0-0.7 [facility] Comment on above: Performed By: #### C BC #### [facility] [address] [place] [address] Dr. Ashwin Key Eosinophils/100 WBC (Bld) 0.0 % Critically low 0.9-7.0 [facility] Comment on above: Performed By: #### C BC #### [facility] [address] [place] [address] Dr. Ashwin Key Erythrocyte distribution width (RBC) [Ratio] 15.1 % Critically high 11.0-15.0 [facility] Comment on above: Performed By: #### C BC #### [facility] [address] [place] [address] Dr. Ashwin Key Hematocrit (Bld) [Volume fraction] 38.0 % Normal 36.0-48.0 [facility] Comment on above: Performed By: #### C BC #### [facility] [address] [place] [address] Dr. Ashwin Key Hemoglobin (Bld) [Mass/Vol] 11.4 g/dL Critically low 12.0-16.0 [facility] Comment on above: Performed By: #### C BC #### [facility] [address] [place] [address] Dr. Ashwin Key IG # 0.02 10e3/ul Normal 0.00-0.03 [facility] Comment on above: Performed By: #### C BC #### [facility] [address] [place] [address] Dr. Ashwin Key IG % 0.5 % Normal 0.0-0.5 [facility] Comment on above: Performed By: #### C BC #### [facility] [address] [place] [address] Dr. Ashwin Key LYMPH # 2.1 103/ul Normal 1.2-3.8 [facility] Comment on above: Performed By: #### C BC #### [facility] [address] [place] [address] Dr. Aswhin Key Lymphocytes/100 WBC (Bld) 48.4 % Normal 20.5-60.0 [facility] Comment on above: Performed By: #### C BC #### [facility] [address] [place] [address] Dr. Ashwin Key MANUAL DIFF REQ NO Normal [facility] Comment on above: Performed By: #### C BC #### [facility] [address] [place] [address] Dr. Ashwin Key MCH (RBC) [Entitic mass] 28.8 pg Normal 26.7-34.0 [facility] Comment on above: Performed By: #### C BC #### [facility] [address] [place] [address] Dr. Ashwin Key MCHC (RBC) [Mass/Vol] 30.0 g/dL Normal 29.9-35.2 [facility] Comment on above: Performed By: #### C BC #### [facility] [address] [place] [address] Dr. Ashwin Key MCV (RBC) [Entitic vol] 96.0 fL Normal 81.0-99.0 [facility] Comment on above: Performed By: #### C BC #### [facility] [address] [place] [address] Dr. Ashwin Key MONO # 0.3 103/ul Normal 0.3-0.8 [facility] Comment on above: Performed By: #### C BC #### [facility] [address] [place] [address] Dr. Ashwin Key Monocytes/100 WBC (Bld) 7.7 % Normal 1.7-12.0 [facility] Comment on above: Performed By: #### C BC #### [facility] [address] [place] [address] Dr. Ashwin Key NEUT # 1.8 103/ul Normal 1.4-6.5 [facility] Comment on above: Performed By: #### C BC #### [facility] [address] [address] [address] Ashwin Key Neutrophils/100 WBC (Bld) 42.7 % Critically low 43.0-75.0 [facility] Comment on above: Performed By: #### C BC #### [facility] [address] [address] [address] Ashwin Key Platelet mean volume (Bld) [Entitic vol] 10.1 fL Normal 9.5-13.5 [facility] Comment on above: Performed By: #### C BC #### [facility] [address] [address] [address] Ashwin Key PLT 156 103/ul Normal 150-450 [facility] Comment on above: Performed By: #### C BC #### [facility] [address] [place] [address] Dr. Ashwin Key RBC 3.96 106/ul Critically low 4.20-5.40 [facility] Comment on above: Performed By: #### C BC #### [facility] [address] [place] [address] Dr. Ashwin Key WBC 4.3 103/ul Normal 4.0-11.0 [facility] Comment on above: Performed By: #### C BC #### [facility] [address] [place] [address] Dr. Ashwin Key PROF CHEM 8 (BAS METB)on Anion gap [Moles/Vol] 13.3 mmol/L Normal [facility] Comment on above: Performed By: #### U ACSJAZMIN ICRO #### [facility] [address] [place] [address] Dr. Ashwin Key Calcium [Mass/Vol] 8.3 mg/dL Critically low 8.5-10.1 [facility] Comment on above: Performed By: #### U ACSJAZMIN UMICRO #### [facility] [address] [place] [address] Dr. Ashwin Key Chloride [Moles/Vol] 111 mmol/L Critically high 98-107 [facility] Comment on above: Performed By: #### U ACSJAZMIN ICRO #### [facility] [address] [address] [address] Ashwin Key CO2 [Moles/Vol] 29.9 mmol/L Normal 21.0-32.0 [facility] Comment on above: Performed By: #### U ACSIND, UMICRO #### [facility] [address] [address] [address] Ashwin Key Creatinine [Mass/Vol] 0.92 mg/dL Normal 0.55-1.02 [facility] Comment on above: Performed By: #### U ACSIND, UMICRO #### [facility] [address] [address] [address] Ashwin Key EGFR-AF CITIZEN [place] >60 Normal >=60 [facility] Comment on above: Performed By: #### U ACSIND, UMICRO #### [facility] [address] [address] [address] Ashwin Key EGFR-NON AF CITIZEN OF [place] 59 mL/min/1.73m2 Critically low >=60 [facility] Comment on above: Performed By: #### U ACSIND, UMICRO #### [facility] [address] [address] [address] Ashwin Key Glucose [Mass/Vol] 84 mg/dL Normal 74-106 [facility] Comment on above: Performed By: #### U ACSIND, UMICRO #### [facility] [address] [address] [address] Ashwin Key Potassium [Moles/Vol] 4.2 mmol/L Normal 3.5-5.1 [facility] Comment on above: Performed By: #### U ACSIND, UMICRO #### [facility] [address] [address] [address] Ashwin Key Sodium [Moles/Vol] 150 mmol/L Critically high 136-145 [facility] Comment on above: Performed By: #### U ACSIND, UMICRO #### [facility] [address] [address] [address] Ashwin Key Urea nitrogen [Mass/Vol] 25.0 mg/dL Critically high 7.0-18.0 [facility] Comment on above: Performed By: #### U FILOMENA UMICRO #### [facility] [address] [place] [address] Dr. Ashwin Key Urea nitrogen/Creatinine [Mass ratio] 27.2 mg/mg Normal [facility] Comment on above: Performed By: #### U FILOMENA UMICRO #### [facility] [address] [place] [address] Dr. Ashwin Key TSHon 08-10-2022 TSH 3.430 uIU/mL Normal 0.358-3.[address] [facility] Comment on above: Performed By: #### U ACSJAZIMN UMICRO #### [facility] [address] [place] [address] Dr. Ashwin Key CULTURE URINEon 08-09-2022 CULTURE URINE Culture Observations : ANSON TO FOLLOW. Normal [facility] Comment on above: Performed By: #### U FILOMENA UMICRO #### [facility] [address] [place] [address] Dr. Ashwin Key UA (CLEAN/CATCH) MINE TECHNICIAN/MICRO I F IND.on 08-09-2022 Bilirubin Ql (U) Negative Normal NEGATIVE [facility] Comment on above: Performed By: #### U FILOMENA UMICRO #### [facility] [address] [place] [address] Dr. Ashwin Key Clarity (U) CLEAR Normal CLEAR [facility] Comment on above: Performed By: #### U FILOMENA UMICRO #### [facility] [address] [place] [address] Dr. Ashwin Key Color (U) LT. YELLOW Normal YELLOW [facility] Comment on above: Performed By: #### U FILMOENA UMICRO #### [facility] [address] [place] [address] Dr. Ashwin Key Glucose Ql (U) Negative Normal NEGATIVE [facility] Comment on above: Performed By: #### U FILOMENA UMICRO #### [facility] [address] [place] [address] Dr. Ashwin Key Hemoglobin Ql (U) TRACE-INTACT Abnormal NEGATIVE [facility] Comment on above: Performed By: #### U ACSIND, UMICRO #### [facility] [address] [address] [address] Ahswin Key Ketones Ql (U) Negative Normal NEGATIVE [facility] Comment on above: Performed By: #### U ACSIND, UMICRO #### [facility] [address] [address] [address] Ashwin Key LEUKOCYTES TRACE Abnormal NEGATIVE [facility] Comment on above: Performed By: #### U ACSIND, UMICRO #### [facility] [address] [address] [address] Ashwin Key Nitrite Ql (U) Negative Normal NEGATIVE [facility] Comment on above: Performed By: #### U ACSIND, UMICRO #### [facility] [address] [address] [address] Ashwin Key pH (U) 5.5 [pH] Normal 5-9 [facility] Comment on above: Performed By: #### U ACSIND, UMICRO #### [facility] [address] [address] [address] Ashwin Key SPEC GRAVITY <=1.005 Abnormal 1.005-<=1.02 5 [facility] Comment on above: Performed By: #### U ACSIND, UMICRO #### [facility] [address] [address] [address] Ashwin Key UA PROTEIN Negative Normal NEGATIVE/ TRACE [facility] Comment on above: Performed By: #### U ACSIND, UMICRO #### [facility] [address] [address] [address] Ashwin Key UR MICRO IND INDICATED Normal [facility] Comment on above: Performed By: #### U ACSIND, UMICRO #### [facility] [address] [address] [address] Ashwin Key Urobilinogen Qn (U) 0.2 {Mercedes'U}/dL Normal 0.2 - 1. 0 [facility] Comment on above: Performed By: #### U ACSIND, UMICRO #### [facility] [address] [address] [address] Ashwin Key URINE MICROSCOPIC ONLYon AMORPHOUS CRYSTALS FEW Normal [facility] Comment on above: Performed By: #### U ACSIND, UMICRO #### [facility] [address] [address] [address] Ashwin Key BACTERIA MODERATE Abnormal NONE SEEN [facility] Comment on above: Performed By: #### U ACSIND, UMICRO #### [facility] [address] [address] [address] Ashwin Key Bacteria identified Cx Nom (U) INDICATED Normal [facility] Comment on above: Performed By: #### U ACSIND, UMICRO #### [facility] [address] [place] [address] Dr. Ashwin Key CAST NONE SEEN Normal NONE SEEN [facility] Comment on above: Performed By: #### U ACSIND, UMICRO #### [facility] [address] [place] [address] Dr. Ashwin Key Crystals LM Nom (Urine sed) SEEN Abnormal NONE SEEN [facility] Comment on above: Performed By: #### U ACSIND, UMICRO #### [facility] [address] [place] [address] Dr. Ashwin Key Epithelial cells LM Ql (Urine sed) MANY Abnormal NONE SEEN /RARE [facility] Comment on above: Performed By: #### U ACSIND, UMICRO #### [facility] [address] [address] [address] Ashwin Key MUCOUS NONE SEEN Normal NONE SEEN [facility] Comment on above: Performed By: #### U ACSIND, UMICRO #### [facility] [address] [address] [address] Ashwin Key RBC 0-2 Normal 0-2 [facility] Comment on above: Performed By: #### U ACSIND, UMICRO #### [facility] [address] [place] [address] Dr. Ashwin Key WBC 2-5 Abnormal NONE SEEN [facility] Comment on above: Performed By: #### U JUAN F BUTT #### [facility] [address] [place] [address] Dr. Ashwin Key CBC AUTO DIFFon 07-11-2022 BASO # 0.0 103/ul Normal 0.0-0.1 [facility] Comment on above: Performed By: #### C BC #### [facility] [address] [place] [address] Dr. Ashwin Key Basophils/100 WBC (Bld) 0.5 % Normal 0.2-2.0 [facility] Comment on above: Performed By: #### C BC #### [facility] [address] [place] [address] Dr. Ashwin Key EO # 0.0 103/ul Normal 0.0-0.7 [facility] Comment on above: Performed By: #### C BC #### [facility] [address] [place] [address] Dr. Ashwin Key Eosinophils/100 WBC (Bld) 0.0 % Critically low 0.9-7.0 [facility] Comment on above: Performed By: #### C BC #### [facility] [address] [place] [address] Dr. Ashwin Key Erythrocyte distribution width (RBC) [Ratio] 14.5 % Normal 11.0-15.0 [facility] Comment on above: Performed By: #### C BC #### [facility] [address] [place] [address] Dr. Ashwin Key Hematocrit (Bld) [Volume fraction] 42.5 % Normal 36.0-48.0 [facility] Comment on above: Performed By: #### C BC #### [facility] [address] [place] [address] Dr. Ashwin Key Hemoglobin (Bld) [Mass/Vol] 13.1 g/dL Normal 12.0-16.0 [facility] Comment on above: Performed By: #### C BC #### [facility] [address] [place] [address] Dr. Ashwin Key IG # 0.02 10e3/ul Normal 0.00-0.03 [facility] Comment on above: Performed By: #### C BC #### [facility] [address] [place] [address] Dr. Ashwin Key IG % 0.5 % Normal 0.0-0.5 [facility] Comment on above: Performed By: #### C BC #### [facility] [address] [place] [address] Dr. Ashwin Key LYMPH # 2.1 103/ul Normal 1.2-3.8 [facility] Comment on above: Performed By: #### C BC #### [facility] [address] [place] [address] Dr. Ashwin Key Lymphocytes/100 WBC (Bld) 48.2 % Normal 20.5-60.0 [facility] Comment on above: Performed By: #### C BC #### [facility] [address] [place] [address] Dr. Ashwin Key MANUAL DIFF REQ NO Normal [facility] Comment on above: Performed By: #### C BC #### [facility] [address] [place] [address] Dr. Ashwin Key MCH (RBC) [Entitic mass] 28.4 pg Normal 26.7-34.0 [facility] Comment on above: Performed By: #### C BC #### [facility] [address] [place] [address] Dr. Ashwin Key MCHC (RBC) [Mass/Vol] 30.8 g/dL Normal 29.9-35.2 [facility] Comment on above: Performed By: #### C BC #### [facility] [address] [place] [address] Dr. Ashwin Key MCV (RBC) [Entitic vol] 92.2 fL Normal 81.0-99.0 [facility] Comment on above: Performed By: #### C BC #### [facility] [address] [place] [address] Dr. Ashwin Key MONO # 0.4 103/ul Normal 0.3-0.8 [facility] Comment on above: Performed By: #### C BC #### [facility] [address] [place] [address] Dr. Ashwin Key Monocytes/100 WBC (Bld) 8.7 % Normal 1.7-12.0 [facility] Comment on above: Performed By: #### C BC #### [facility] [address] [place] [address] Dr. Ashwin Key NEUT # 1.8 103/ul Normal 1.4-6.5 [facility] Comment on above: Performed By: #### C BC #### [facility] [address] [place] [address] Dr. Ashwin Key Neutrophils/100 WBC (Bld) 42.1 % Critically low 43.0-75.0 [facility] Comment on above: Performed By: #### C BC #### [facility] [address] [place] [address] Dr. Ashwin Key Platelet mean volume (Bld) [Entitic vol] 10.4 fL Normal 9.5-13.5 [facility] Comment on above: Performed By: #### C BC #### [facility] [address] [place] [address] Dr. Ashwin Key PLT 159 103/ul Normal 150-450 [facility] Comment on above: Performed By: #### C BC #### [facility] [address] [place] [address] Dr. Ashwin Key RBC 4.61 106/ul Normal 4.20-5.40 [facility] Comment on above: Performed By: #### C BC #### [facility] [address] [place] [address] Dr. Ashwin Key WBC 4.3 103/ul Normal 4.0-11.0 [facility] Comment on above: Performed By: #### C BC #### [facility] [address] [place] [address] Dr. Ashwin Key PROF CHEM 8 (BAS METB)on Anion gap [Moles/Vol] 10.2 mmol/L Normal [facility] Comment on above: Performed By: #### B MP #### [facility] [address] [address] [address] Ashwin Key Calcium [Mass/Vol] 8.5 mg/dL Normal 8.5-10.1 [facility] Comment on above: Performed By: #### B MP #### [facility] [address] [address] [address] Ashwin Key Chloride [Moles/Vol] 104 mmol/L Normal 98-107 [facility] Comment on above: Performed By: #### B MP #### [facility] [address] [place] [address] Dr. Ashwin Key CO2 [Moles/Vol] 32.6 mmol/L Critically high 21.0-32.0 [facility] Comment on above: Performed By: #### B MP #### [facility] [address] [place] [address] Dr. Ashwin Key Creatinine [Mass/Vol] 0.91 mg/dL Normal 0.55-1.02 [facility] Comment on above: Performed By: #### B MP #### [facility] [address] [place] [address] Dr. Ashwin Key EGFR-AF CITIZEN [place] >60 Normal >=60 [facility] Comment on above: Performed By: #### B MP #### [facility] [address] [place] [address] Dr. Ashwin Key EGFR-NON AF CITIZEN OF [place] =60 Normal >=60 [facility] Comment on above: Performed By: #### B MP #### [facility] [address] [place] [address] Dr. Ashwin Key Glucose [Mass/Vol] 89 mg/dL Normal 74-106 [facility] Comment on above: Performed By: #### B MP #### [facility] [address] [place] [address] Dr. Ashwin Key Potassium [Moles/Vol] 3.8 mmol/L Normal 3.5-5.1 [facility] Comment on above: Performed By: #### B MP #### [facility] [address] [address] [address] Ashwin Key Sodium [Moles/Vol] 143 mmol/L Normal 136-145 [facility] Comment on above: Performed By: #### B MP #### [facility] [address] [address] [address] Ashwin Key Urea nitrogen [Mass/Vol] 26.0 mg/dL Critically high 7.0-18.0 [facility] Comment on above: Performed By: #### B MP #### [facility] [address] [address] [address] Ashwin Key Urea nitrogen/Creatinine [Mass ratio] 28.6 mg/mg Normal [facility] Comment on above: Performed By: #### B MP #### [facility] [address] [place] [address] Dr. Ashwin Key CULTURE URINEon 02-11-2022 CULTURE [...] F Trimethoprim/Sulfameth oxazole <=20 S F Normal [facility] Comment on above: Performed By: #### U ACSIND, UMICRO #### [facility] [address] [address] [address] Ashwin Key CBC AUTO DIFFon 02-07-2022 BASO # 0.0 103/ul Normal 0.0-0.1 [facility] Comment on above: Performed By: #### C BC #### [facility] [address] [place] [address] Dr. Ashwin Key Basophils/100 WBC (Bld) 0.5 % Normal 0.2-2.0 [facility] Comment on above: Performed By: #### C BC #### [facility] [address] [place] [address] Dr. Ashwin Key EO # 0.0 103/ul Normal 0.0-0.7 [facility] Comment on above: Performed By: #### C BC #### [facility] [address] [place] [address] Dr. Ashwin Key Eosinophils/100 WBC (Bld) 0.0 % Critically low 0.9-7.0 [facility] Comment on above: Performed By: #### C BC #### [facility] [address] [place] [address] Dr. Ashwin Key Erythrocyte distribution width (RBC) [Ratio] 13.4 % Normal 11.0-15.0 [facility] Comment on above: Performed By: #### C BC #### [facility] [address] [place] [address] Dr. Ashwin Key Hematocrit (Bld) [Volume fraction] 46.8 % Normal 36.0-48.0 [facility] Comment on above: Performed By: #### C BC #### [facility] [address] [place] [address] Dr. Ashwin Key Hemoglobin (Bld) [Mass/Vol] 14.2 g/dL Normal 12.0-16.0 [facility] Comment on above: Performed By: #### C BC #### [facility] [address] [place] [address] Dr. Ashwin Key IG # 0.05 10e3/ul Critically high 0.00-0.03 [facility] Comment on above: Performed By: #### C BC #### [facility] [address] [place] [address] Dr. Ashwin Key IG % 0.6 % Critically high 0.0-0.5 [facility] Comment on above: Performed By: #### C BC #### [facility] [address] [place] [address] Dr. Ashwin Key LYMPH # 2.0 103/ul Normal 1.2-3.8 [facility] Comment on above: Performed By: #### C BC #### [facility] [address] [place] [address] Dr. Ashwin Key Lymphocytes/100 WBC (Bld) 22.9 % Normal 20.5-60.0 [facility] Comment on above: Performed By: #### C BC #### [facility] [address] [place] [address] Dr. Ashwin Key MANUAL DIFF REQ NO Normal [facility] Comment on above: Performed By: #### C BC #### [facility] [address] [place] [address] Dr. Ashwin Key MCH (RBC) [Entitic mass] 29.1 pg Normal 26.7-34.0 [facility] Comment on above: Performed By: #### C BC #### [facility] [address] [place] [address] Dr. Ashwin Key MCHC (RBC) [Mass/Vol] 30.3 g/dL Normal 29.9-35.2 [facility] Comment on above: Performed By: #### C BC #### [facility] [address] [place] [address] Dr. Ashwin Key MCV (RBC) [Entitic vol] 95.9 fL Normal 81.0-99.0 [facility] Comment on above: Performed By: #### C BC #### [facility] [address] [place] [address] Dr. Ashwin Key MONO # 0.9 103/ul Critically high 0.3-0.8 [facility] Comment on above: Performed By: #### C BC #### [facility] [address] [place] [address] Dr. Ashwin Key Monocytes/100 WBC (Bld) 10.9 % Normal 1.7-12.0 [facility] Comment on above: Performed By: #### C BC #### [facility] [address] [place] [address] Dr. Ashwin Key NEUT # 5.6 103/ul Normal 1.4-6.5 [facility] Comment on above: Performed By: #### C BC #### [facility] [address] [address] [address] Ashwin Key Neutrophils/100 WBC (Bld) 65.1 % Normal 43.0-75.0 [facility] Comment on above: Performed By: #### C BC #### [facility] [address] [address] [address] Ashwin Key Platelet mean volume (Bld) [Entitic vol] 10.6 fL Normal 9.5-13.5 [facility] Comment on above: Performed By: #### C BC #### [facility] [address] [address] [address] Ashwin Key PLT 203 103/ul Normal 150-450 [facility] Comment on above: Performed By: #### C BC #### [facility] [address] [place] [address] Dr. Ashwin Key RBC 4.88 106/ul Normal 4.20-5.40 [facility] Comment on above: Performed By: #### C BC #### [facility] [address] [address] [address] Ashwin Key WBC 8.6 103/ul Normal 4.0-11.0 [facility] Comment on above: Performed By: #### C BC #### [facility] [address] [place] [address] Dr. Ashwin Key PROF 14(COMP METB)on 022 Albumin [Mass/Vol] 3.6 g/dL Normal 3.4-5.0 [facility] Comment on above: Performed By: #### U JOEY BUTTRO #### [facility] [address] [address] [address] Ashwin Key Albumin/Globulin [Mass ratio] 1.2 {ratio} Normal [facility] Comment on above: Performed By: #### U FILOEMNA UMICRO #### [facility] [address] [address] [address] Ashwin Key ALP [Catalytic activity/Vol] 128 U/L Critically high 46-116 [facility] Comment on above: Performed By: #### U ACSJAZMIN UMICRO #### [facility] [address] [address] [address] Ashwin Key ALT [Catalytic activity/Vol] 20 U/L Normal 14-59 [facility] Comment on above: Performed By: #### U ACSJAZMIN UMICRO #### [facility] [address] [address] [address] Ashwin Key Anion gap [Moles/Vol] 12.0 mmol/L Normal [facility] Comment on above: Performed By: #### U ACSJAZMIN UMICRO #### [facility] [address] [place] [address] Dr. Ashwin Key AST [Catalytic activity/Vol] 18 U/L Normal 15-37 [facility] Comment on above: Performed By: #### U ACSJAZMIN UMICRO #### [facility] [address] [place] [address] Dr. Ashwin Key Bilirubin [Mass/Vol] 0.8 mg/dL Normal 0.2-1.0 [facility] Comment on above: Performed By: #### U FILOMENA UMICRO #### [facility] [address] [place] [address] Dr. Ashwin Key Calcium [Mass/Vol] 8.1 mg/dL Critically low 8.5-10.1 [facility] Comment on above: Performed By: #### U ACSJAZMIN UMICRO #### [facility] [address] [place] [address] Dr. Ashwin Key Chloride [Moles/Vol] 99 mmol/L Normal 98-107 [facility] Comment on above: Performed By: #### U ACSJAZMIN UMICRO #### [facility] [address] [place] [address] Dr. Ashwin Key CO2 [Moles/Vol] 33.7 mmol/L Critically high 21.0-32.0 [facility] Comment on above: Performed By: #### U ACSJAZMIN UMICRO #### [facility] [address] [place] [address] Dr. Ashwin Key Creatinine [Mass/Vol] 1.07 mg/dL Critically high 0.55-1.02 [facility] Comment on above: Performed By: #### U ACSIND, UMICRO #### [facility] [address] [address] [address] Ashwin Key EGFR-AF CITIZEN OF [place] 60 mL/min/1.73m2 Normal >=60 [facility] Comment on above: Performed By: #### U ACSIND, UMICRO #### [facility] [address] [address] [address] Ashwin Key EGFR-NON AF CITIZEN OF [place] 50 mL/min/1.73m2 Critically low >=60 [facility] Comment on above: Performed By: #### U ACSIND, UMICRO #### [facility] [address] [address] [address] Ashwin Key Globulin (S) [Mass/Vol] 3.0 g/dL Normal [facility] Comment on above: Performed By: #### U ACSIND, UMICRO #### [facility] [address] [address] [address] Ashwin Key Glucose [Mass/Vol] 76 mg/dL Normal 74-106 [facility] Comment on above: Performed By: #### U ACSIND, UMICRO #### [facility] [address] [address] [address] Ashwin Key Potassium [Moles/Vol] 4.7 mmol/L Normal 3.5-5.1 [facility] Comment on above: Performed By: #### U ACSIND, UMICRO #### [facility] [address] [address] [address] Ashwin Key Protein [Mass/Vol] 6.6 g/dL Normal 6.4-8.2 [facility] Comment on above: Performed By: #### U ACSIND, UMICRO #### [facility] [address] [address] [address] Ashwin Key Sodium [Moles/Vol] 140 mmol/L Normal 136-145 [facility] Comment on above: Performed By: #### U ACSJAZMIN UMICRO #### [facility] [address] [address] [address] Ashwin Key Urea nitrogen [Mass/Vol] 31.0 mg/dL Critically high 7.0-18.0 [facility] Comment on above: Performed By: #### U ACSJAZMIN, UMICRO #### [facility] [address] [address] [address] Ashwin Key Urea nitrogen/Creatinine [Mass ratio] 29.0 mg/mg Normal [facility] Comment on above: Performed By: #### U ACSJAZMIN ICRO #### [facility] [address] [address] [address] Ashwin Key UA RANDOMon 02-07-2022 Bilirubin Ql (U) Negative Normal NEGATIVE [facility] Comment on above: Performed By: #### U A #### [facility] [address] [place] [address] Dr. Ashwin Key Clarity (U) CLEAR Normal CLEAR [facility] Comment on above: Performed By: #### U A #### [facility] [address] [address] [address] Ashwin Key Color (U) LT. YELLOW Normal YELLOW [facility] Comment on above: Performed By: #### U A #### [facility] [address] [place] [address] Dr. Ashwin Key Glucose Ql (U) Negative Normal NEGATIVE [facility] Comment on above: Performed By: #### U A #### [facility] [address] [address] [address] Ashwin Key Hemoglobin Ql (U) Negative Normal NEGATIVE [facility] Comment on above: Performed By: #### U A #### [facility] [address] [place] [address] Dr. Ashwin Key Ketones Ql (U) TRACE Abnormal NEGATIVE [facility] Comment on above: Performed By: #### U A #### [facility] [address] [place] [address] Dr. Ashwin Key LEUKOCYTES SMALL Abnormal NEGATIVE [facility] Comment on above: Performed By: #### U A #### [facility] [address] [address] [address] Ashwin Key Nitrite Ql (U) Positive Abnormal NEGATIVE [facility] Comment on above: Performed By: #### U A #### [facility] [address] [address] [address] Ashwin Key pH (U) 6.0 [pH] Normal 5-9 [facility] Comment on above: Performed By: #### U A #### [facility] [address] [address] [address] Ashwin Key SPEC GRAVITY 1.020 Normal 1.005-<=1.02 5 [facility] Comment on above: Performed By: #### U A #### [facility] [address] [address] [address] Ashwin Key UA PROTEIN Negative Normal NEGATIVE/ TRACE [facility] Comment on above: Performed By: #### U A #### [facility] [address] [address] [address] Ashwin Key Urobilinogen Qn (U) 1.0 {Mercedes'U}/dL Normal 0.2 - 1. 0 [facility] Comment on above: Performed By: #### U A #### [facility] [address] [place] [address] Dr. Ashwin Key K (Potassium)on 01-30-2017 Potassium molar conc 4.2 mmol/L Normal 3.7-5.3 [facility] Comment on above: Result Comment: Perf ormed at [address] [place] [address] [phone] Performed By: #### K ####[address] [place] [address] Encounters Encounter Date Encounter Type Care Provider Facility Start: 01-09-2024 End: 01-09-2024 ambulatory MARISELA EMERSON [facility] Start: 01-01-2024 End: 01[facility]01[facility]20[facility]: 12-26-2023 End: 12-26-2023 ambulatory COLTEN LAYTON [facility] Start: 12-22-2023 End: 12-22-[address] [facility] [facility] Start: 12-06-2023 Evaluation and management of inpatient HARSHA KIRBY [facility] Start: 12-05-2023 Evaluation and management of inpatient DON YUSUF [facility] Start: 12-04-2023 Emergency department patient visit DOE KARL [facility] Start: 12-04-2023 End: 12-06-2023 [facility] 11-20-2023 Evaluation and management of inpatient [facility] Start: 11-15-2023 Evaluation and management of inpatient [facility] Start: 11-15-2023 Evaluation and management of inpatient AEESSIE [facility] Start: 11-15-2023 Evaluation and management of inpatient AEESSIE [facility] Start: 11-14-2023 Evaluation and management of inpatient [facility] Start: 11-14-2023 Evaluation and management of inpatient YUE [facility] Start: 11-13-2023 Evaluation and management of inpatient OLIMPIA LANDRY [facility] Start: 11-13-2023 End: 11-22-2023 Evaluation and management of inpatient AEESSIE SALAZAR [facility] Start: 08-22-2022 End: 08-22-[address] PRANAV CAMPOS Facility:[facility] Start: 08-12-2022 End: 08-12-[address] DOCTOR MONTANO Facility:[facility] Start: 08-10-2022 End: 08-10-[address] PRANAV CAMPOS Facility:[facility] Start: 07-11-2022 End: 07-11-[address] PRANAV CAMPOS Facility:[facility] Start: 02-07-2022 End: 02-07-[address] PRANAV CAMPOS Facility:[facility] Start: 01-31-2017 End: 02-01-2017 Ambulatory [facility] Start: 01-30-2017 End: 01-31-2017 Ambulatory [facility]ALI [facility] Procedures Date Procedure Procedure Detail Performing Clinician Start: 12-26-2023 Follow-up visit NINO SMITH Start: 12-22-2023 Follow-up visit Follow-up NINO SMITH Start: 01-30-2017 POTASSIUM NEPTALI SANDERS ROHIT Payers Date Payer Category Payer Medicare [id number] 2016 Medicare [id number] 1960 Medicaid [id number] 1960 Medicare [id number] 1945 Unknown [id number] 2.16.84 [id number] 1945 Unknown [id number] 2.16.84 [id number] 1944 Unknown [id number] 2.16.84 [id number] 1944 Unknown [id number] 2.16.84 [id number] 1944 Unknown [id number] 2.16.84 [id number] Clinical Notes 11-14-2023 to 01-09-2024 Note Date & Type Note Facility 01-09-2024 Note [facility] 01-01-2024 Note [facility] 12-26-2023 Note [facility] 12-22-2023 Note [facility] 12-06-2023 Note [facility] 12-06-2023 Note [facility] 12-06-2023 Note [facility] 12-06-2023 Note [facility] 12-06-2023 Note [facility] 12-05-2023 Note [facility] 12-05-2023 Note [facility] 12-05-2023 Note [facility] 12-04-2023 Note [facility] 11-22-2023 Note [facility] 11-21-2023 Note [facility] 11-21-2023 Note Sent updates to [facility] and advised of possible discharge today. [facility] 11-21-2023 Note [facility] 11-20-2023 Note [facility] 11-20-2023 Note [facility] 11-20-2023 Note [facility] 11-20-2023 Note [facility] 11-20-2023 Note [facility] 11-19-2023 Note [facility] 11-19-2023 Note [facility] 11-19-2023 Note [facility] 11-18-2023 Note [facility] 11-18-2023 Note [facility] 11-17-2023 Note [facility] 11-17-2023 Note [facility] 11-17-2023 Note Sent updates to [facility]. Unclear at this point if pt will need pre-cert to return. UPDATE 10:40AM- Advised by [facility] pt is a bed hold and no pre-cert is necessary. [facility] 11-17-2023 Note [facility] 11-17-2023 Note [facility] 11-16-2023 Note [facility] 11-15-2023 Note [facility] 11-15-2023 Note [facility] 11-15-2023 Note [facility] 11-15-2023 Note [facility] 11-15-2023 Note [facility] 11-14-2023 Note [facility] 11-14-2023 Note [facility] 11-14-2023 Note [facility] 11-14-2023 Note [facility] 11-14-2023 Note [facility] 11-14-2023 Note [facility] 11-14-2023 Note [facility] Summary Purpose Family History No Family History Records FoundNo Family History Records FoundNo Family History Records Found Advance Directives No Advanced Directives Records FoundNo Advanced Directives Records FoundNo Advanced Directives Records Found Additional Source Comments INFORMATION SOURCE (unrecogn ized section and content) DATE CREATED AUTHOR 11/08/2017 [facility] DATE CREATED AUTHOR AUTHOR'S ORGANIZ ATION 09/09/2022 [facility] DATE CREATED AUTHOR AUTHOR'S ORGANIZ ATION 01/19/2024 [facility] FOR RECORDS PERTAINING TO PATIENTS WHO [...] BE BASED ON THE PRIMARY CLINICAL RECORDS. [facility] provides no warranty or guarantee of the accuracy or completeness of information in this document.
== END 2024-01-19 18:28 | disposition home or self-care (01) ==
LOC: LAB 18:27
PROVIDERS: PCP Family Medicine; Visit Provider Nurse Practitioner Family
DX: S81.802A Unspecified open wound, left lower leg, initial encounter (principal)
CPT/HCPCS: 87070; 87075

== ENCOUNTER 2024-02-14 02:36 | Outpatient (RCR) | payer MEDICARE, MEDICAID, SELFPAY ==
[2024-02-14 11:31] LABS: Hematocrit 35.8 % (36.0-48.0); Hemoglobin 10.9 g/dL (12.0-16.0); Mean Corpuscular HGB Conc 30.4 g/dL (29.9-35.2); Mean Corpuscular Hemoglobin 30.8 pg (26.7-34.0); Mean Corpuscular Volume 101.1 fL (81.0-99.0); Mean Platelet Volume 9.9 fL (9.5-13.5); Platelet Count 267 10^3/uL (150-450); Red Blood Count 3.54 10^6/uL (4.20-5.40); Red Cell Distribution Width 18.2 % (11.0-15.0); White Blood Count 9.8 10^3/uL (4.0-11.0)
[2024-02-14 11:53] LABS: Band Neutrophils Absolute 0.8 10^3/uL (0.0-0.3); Lymphocytes Absolute Manual 0.58 10^3/uL (1.20-3.80); Monocytes Absolute Manual 0.98 10^3/uL (0.30-0.80); Segmented Neut Absolute Manual 7.44 10^3/uL (1.4-6.5)
[2024-02-14 11:54] LABS: Alanine Aminotransferase 14 U/L (14-59); Albumin Globulin Ratio 0.2; Alkaline Phosphatase 144 U/L (46-116); Aspartate Amino Transferase 19 U/L (15-37); BUN Creatinine Ratio 25.5; Bilirubin Total 0.8 mg/dL (0.2-1.0); C Reactive Protein 6.51 mg/dL (<=0.50); Calcium 7.6 mg/dL (8.5-10.1); Chloride 101 mmol/L (98-107); Estimated GFR (African America >60 (>=60 mL/min/1.73m^2); Estimated GFR (Non-African Ame 52 (>=60 mL/min/1.73m^2); Globulin 4.1 g/dL; Glucose 94 mg/dL (74-106); Potassium 4.6 mmol/L (3.5-5.1); Sodium 137 mmol/L (136-145); Total Protein 5.1 g/dL (6.4-8.2)
[2024-02-14 12:14] LABS: Anion Gap 8.4; Carbon Dioxide 32.2 mmol/L (21.0-32.0)
[2024-02-21 08:56] LABS: Hematocrit 30.5 % (36.0-48.0); Hemoglobin 9.1 g/dL (12.0-16.0); Mean Corpuscular HGB Conc 29.8 g/dL (29.9-35.2); Mean Corpuscular Hemoglobin 30.4 pg (26.7-34.0); Mean Platelet Volume 10.4 fL (9.5-13.5); Platelet Count 249 10^3/uL (150-450); Red Blood Count 2.99 10^6/uL (4.20-5.40); Red Cell Distribution Width 18.4 % (11.0-15.0)
[2024-02-21 09:11] LABS: Band Neutrophils Absolute 0.7 10^3/uL (0.0-0.3); Monocytes Absolute Manual 0.39 10^3/uL (0.30-0.80); Segmented Neut Absolute Manual 10.66 10^3/uL (1.4-6.5)
[2024-02-21 10:24] LABS: BUN Creatinine Ratio 27.3; C Reactive Protein 5.94 mg/dL (<=0.50); Calcium 7.4 mg/dL (8.5-10.1); Carbon Dioxide 37.1 mmol/L (21.0-32.0); Chloride 104 mmol/L (98-107); Estimated GFR (African America 39 (>=60 mL/min/1.73m^2); Estimated GFR (Non-African Ame 32 (>=60 mL/min/1.73m^2); Glucose 101 mg/dL (74-106); Potassium 4.1 mmol/L (3.5-5.1); Sodium 143 mmol/L (136-145)
== END 2024-05-14 23:59 | disposition home or self-care (01) ==
LOC: LAB 02:36
PROVIDERS: PCP Family Medicine; Visit Provider Family Medicine
DX: A41.9 Sepsis, unspecified organism (principal); M79.89 Other specified soft tissue disorders; I50.43 Acute on chronic combined systolic (congestive) and diastolic (congestive) heart failure; Z51.81 Encounter for therapeutic drug level monitoring; I10 Essential (primary) hypertension
CPT/HCPCS: 36415; 80048; 80053; 85007; 85027; 86140